=== PATIENT | female | born 1940 | race Caucasian/White ===

== ENCOUNTER 2016-12-23 15:31 | Emergency (ER) | payer BC, OTHER ==
[~2016-12-23] VITALS: Ht 160 cm; Wt 83.5 kg
[~2016-12-23 15:31] MED LIST: ACET-1256 PO; APR10 PO; ASCO500C3 PO; ASPI81TA28 PO; ATOR10TA88 PO; CALC600T PO; CHOL100027 PO; CTP1X PO; GLIM4TAB2 PO; LISI-787 PO; METF-384 PO; METO50TA17 PO; MULT-884 PO; POTA1CAP2 PO; VITACAP37 PO
[2016-12-23 15:44] VITALS: TEMP 36.8; Ht 160 cm; Wt 83.5 kg
[2016-12-23] MEDS ORDERED: HydrALAZINE HCL 20 MG/ML VIAL IV. STA (15:57)
--- NOTE | 2016-12-23 16:14 | EMERGENCY ROOM VISIT NOTE ---
History Report prepared by Enedina: Danelle Iverson Under the Supervision of: Dr. Erich Mercado M.D. First contact with patient: 15:51 Chief Complaint: HYPERTENSION Stated Complaint: BLOOD PRESSURE, DOCTOR REFERRED History of Present Illness The patient is a 76 year old female who presents to the Emergency Room with complaints of constant hypertension beginning today. The patient states that she went to see her PCP last week for a regular check up and he was concerned because her blood pressure was elevated. She reports that he referred her to a flask carrier that she saw today. She notes that her blood pressure was 240 today and her flask carrier wanted her to be seen in the ED. The patient states that she takes Lisinopril for her blood pressure and Clonidine. She reports that she does not miss any of her medications but she recently stopped taking her Clonidine in the morning as she was sleeping through it and her doctor told her that she could stop taking it. She notes that before she stopped taking the Clonidine in the morning it was usually in the 130s. The patient complains of intermittent leg swelling, lightheadedness as she has not eaten much today. She denies any headache, shortness of breath, abdominal pain, nausea, and chest pain. She reports that she recently had her cataracts done and has been doing well since her surgery. The patient notes that she eats hot dogs and olives and is trying to cut some of the salt out of her diet. She reports that she has not been exercising as much recently. Source of History: patient Onset: today Position: other (global) Symptom Intensity: 240 Quality: other (hypertension) Timing: constant Associated Symptoms: No headache, No chest pain, No SOB, No nausea, No abdominal pain Note: Pt complains of lightheadedness and slight leg swelling. Review of Systems See HPI for pertinent positives & negatives. A total of 10 systems reviewed and were otherwise negative. Past Medical & Surgical Medical Problems: (1) DM (diabetes mellitus) Family History No pertinent family history stated. Social History Smoking Status: Former Smoker Marital Status: Occupation Status: retired Current/Historical Medications Scheduled Ascorbic Acid (Vitamin C), 1 TAB PO DAILY Aspirin (Aspirin Ec), 81 MG PO HS Atorvastatin (Lipitor), 10 MG PO DAILY Calcium Carbonate (Calcium 600), 1 TAB PO DAILY Carvedilol (Coreg), 25 MG PO BID Cholecalciferol (Vitamin D 1000 Unit), 1,000 INTER.UNIT PO DAILY Clonidine (Catapres-Tts), 1 PATCH TD WK Clonidine HCl (Clonidine HCl), 0.1 MG PO BID Glimepiride (Glimepiride), 4 MG PO DAILY Hydralazine Hcl (Apresoline), 20 MG PO BID Lisinopril/Hctz (Zestoretic 20MG/25MG), 1 TAB PO DAILY Metformin Hcl (Glucophage), 1,000 MG PO BID Multiple Vitamin (Multi Vitamin Daily), 1 TAB PO DAILY Vitamin E (E-400), 1 CAP PO DAILY Scheduled PRN Potassium Chloride (Potassium Chloride Er), 10 MEQ PO DAILY PRN for LEG CRAMPS Allergies Coded Allergies: Metoprolol (Unverified Allergy, Severe, VOMIT,DIARRHEA, 12/23/16) Amlodipine (Verified Adverse Reaction, Intermediate, ELEVATED BP, 12/23/16) Fenofibrate (Verified Adverse Reaction, Intermediate, INCREASED URINATION , 12/23/16) Verapamil (Verified Adverse Reaction, Intermediate, INCREASED URINATION, ) Physical Exam Vital Signs Date Time Temp Pulse Resp B/P (MAP) Pulse Ox O2 Delivery O2 Flow Rate FiO2 12/23/16 19:53 77 22 189/79 94 12/23/16 19:12 67 19 174/76 94 Room Air 12/23/16 18:55 75 17 204/64 93 Room Air 12/23/16 17:37 67 16 137/54 94 Room Air 12/23/16 16:10 64 12/23/16 15:44 36.8 65 20 218/88 94 Room Air Physical Exam Vital signs reviewed. General: Well-appearing female, noted to be markedly hypertensive, in no significant distress. HEENT: No scleral icterus, PERRLA, neck supple. Atraumatic. Cardiovascular: Regular rate and rhythm, no extra sounds. Pulmonary: Clear to auscultation bilaterally, normal work of breathing. Abdomen: Soft, nontender, nondistended, positive bowel sounds. Musculoskeletal: Atraumatic, minimal peripheral edema. Neurologic: Patient awake alert and oriented x 3, full strength in all 4 extremities. Cranial nerves 2 through 12 grossly intact. Skin: Warm, dry, no rash Medical Decision & Procedures ER Provider Diagnostic Interpretation: X-ray results as stated below per interpretation by me and the radiologist: CHEST ONE VIEW PORTABLE FINDINGS: Cardiomediastinal and hilar silhouettes are unchanged with mild prominence of the cardiac silhouette. There is no pneumothorax, pleural effusion, focal airspace consolidation or overt pulmonary edema. There is minimal left basilar atelectasis. The bones appear grossly intact. IMPRESSION: Minimal left basilar atelectasis without acute cardiopulmonary process. The above report was generated using voice recognition software. It may contain grammatical, syntax or spelling errors. Electronically signed by: Kali Solis M.D. 12/23/2016 4:20 PM Dictated Date/Time: 12/23/2016 4:19 PM Laboratory Results 12/23/16 16:40 Red Blood Count 4.61, Mean Corpuscular Volume 84.2, Mean Corpuscular Hemoglobin 28.0, Mean Corpuscular Hemoglobin Concent 33.2, Mean Platelet Volume 11.5, Neutrophils (%) (Auto) 70.9, Lymphocytes (%) (Auto) 20.6, Monocytes (%) (Auto) 5.6, Eosinophils (%) (Auto) 2.5, Basophils (%) (Auto) 0.3, Neutrophils # (Auto) 5.10, Lymphocytes # (Auto) 1.48, Monocytes # (Auto) 0.40, Eosinophils # (Auto) 0.18, Basophils # (Auto) 0.02 12/23/16 16:40 Test 12/23/16 16:40 12/23/16 16:44 White Blood Count 7.19 K/uL (4.8-10.8) Red Blood Count 4.61 M/uL (4.2-5.4) Hemoglobin 12.9 g/dL (12.0-16.0) Hematocrit 38.8 % (37-47) Mean Corpuscular Volume 84.2 fL (80-100) Mean Corpuscular Hemoglobin 28.0 pg (25-34) Mean Corpuscular Hemoglobin Concent 33.2 g/dl (32-36) Platelet Count 238 K/uL (130-400) Mean Platelet Volume 11.5 fL (7.4-10.4) Neutrophils (%) (Auto) 70.9 % Lymphocytes (%) (Auto) 20.6 % Monocytes (%) (Auto) 5.6 % Eosinophils (%) (Auto) 2.5 % Basophils (%) (Auto) 0.3 % Neutrophils # (Auto) 5.10 K/uL (1.4-6.5) Lymphocytes # (Auto) 1.48 K/uL (1.2-3.4) Monocytes # (Auto) 0.40 K/uL (0.11-0.59) Eosinophils # (Auto) 0.18 K/uL (0-0.5) Basophils # (Auto) 0.02 K/uL (0-0.2) RDW Standard Deviation 42.5 fL (36.4-46.3) RDW Coefficient of Variation 13.9 % (11.5-14.5) Immature Granulocyte % (Auto) 0.1 % Immature Granulocyte # (Auto) 0.01 K/uL (0.00-0.02) Anion Gap 7.0 mmol/L (3-11) Est Creatinine Clear Calc Drug Dose 62.4 ml/min Estimated GFR () 82.9 Estimated GFR (Non- 71.5 BUN/Creatinine Ratio 16.8 (10-20) Calcium Level 9.1 mg/dl (8.5-10.1) Magnesium Level 1.9 mg/dl (1.8-2.4) Total Bilirubin 0.5 mg/dl (0.2-1) Direct Bilirubin < 0.1 mg/dl (0-0.2) Aspartate Amino Transf (AST/SGOT) 14 U/L (15-37) Alanine Aminotransferase (ALT/SGPT) 29 U/L (12-78) Alkaline Phosphatase 88 U/L (45-117) Total Creatine Kinase 97 U/L (26-192) Creatine Kinase MB 3.9 ng/ml (0.5-3.6) Creatine Kinase MB Ratio 4.0 (0-3.0) Total Protein 7.0 gm/dl (6.4-8.2) Albumin 3.7 gm/dl (3.4-5.0) Bedside Troponin I < 0.030 ng/ml (0-0.045) Laboratory results per my review. Medications Administered Medications (Trade) Dose Ordered Sig/Radha Route Start Time Stop Time Status Last Admin Dose Admin Hydralazine HCl (HydrALAZINE INJ) 10 mg NOW STAT IV. 12/23/16 15:57 12/23/16 16:04 DC 12/23/16 17:16 10 MG Clonidine HCl (Mkruturv-Dxg-2 0.1mg/24hr Patch) 1 patch CQWK STAT TD 12/23/16 18:57 12/23/16 18:58 DC 12/23/16 19:13 1 PATCH Metformin HCl (Glucophage Tab) 1,000 mg NOW STAT PO 12/23/16 18:59 12/23/16 19:03 DC 12/23/16 19:12 1,000 MG Carvedilol (Coreg Tab) 25 mg NOW ONCE PO 12/23/16 19:00 12/23/16 19:03 DC 12/23/16 19:12 25 MG Hydralazine HCl (Apresoline Tab) 25 mg NOW STAT PO 12/23/16 18:59 12/23/16 19:03 DC 12/23/16 19:13 25 MG ECG Indication: other (hypertension) Rate (beats per minute): 60 Rhythm: normal sinus Findings: nonspecific-ST abn (Anterior), other (nonspecific T wave abnormality in anterior leads ) ED Course 1551: Past medical records reviewed. The patient was evaluated in room B7. A complete history and physical examination was performed. 1557: Hydralazine HCl 10mg IV. 1833: I reevaluated and updated the patient. 1846: Upon reevaluation, the patient appeared to have improvement of her symptoms. I discussed findings with the patient. She verbalized agreement of the treatment plan. The patient was discharged home. Medical Decision Differential diagnosis includes medication noncompliance, essential hypertension , renal artery stenosis, renal failure, dietary noncompliance, and fluid overload. This patient was evaluated and appeared to be in no significant distress. IV access was obtained and laboratory work was drawn. Patient was given IV hydralazine for systolic blood pressure well over 200. She had significant improvement in her blood pressure however when she was ambulatory she had fluctuating blood pressures once again. Laboratory work is fairly unrevealing. Chest x-ray reveals some basilar atelectasis without clear infiltrate or CHF. The patient is largely asymptomatic. She was given her evening medications. She was given a clonidine patch to wear as this may give her a more even release of the clonidine helping to stabilize her blood pressure. She states she has been missing the morning dose. Patient will follow-up this week with her primary care physician for blood pressure recheck and medication review. She will return to the ER for worsening of symptoms or any medical concerns. Medication Reconcilliation Current Medication List: was personally reviewed by me Blood Pressure Screening Patient's blood pressure: Elevated blood pressure Blood pressure disposition: Referred to PCP Impression Primary Impression: Hypertension Scribe Attestation The scribe's documentation has been prepared under my direction and personally reviewed by me in its entirety. I confirm that the note above accurately reflects all work, treatment, procedures, and medical decision making performed by me. Departure Information Dispostion Home / Self-Care Prescriptions Clonidine (Catapres-Tts) 0.1 Mg/24 Hr Dis 1 PATCH TD WK, #3 PATCH Prov: Malinda Tripathi M.D. 12/23/16 Referrals No Doctor, Assigned (PCP) Forms HOME CARE DOCUMENTATION FORM, IMPORTANT VISIT INFORMATION, WORK / SCHOOL INSTRUCTIONS Patient Instructions My [facility] Additional Instructions Diagnosis: Hypertension Clonidine patch 0.1 mg/24 hours, change your patch once a week. Remove this if your blood pressure is low. Use the clonidine pill only if your blood pressure is greater than 180 systolic. Continue your other blood pressure medications as prescribed. Follow-up with your physician this week for reevaluation. Return to the emergency department for worsening of symptoms or any medical concerns.
--- NOTE | 2016-12-23 16:21 | DIAGNOSTIC IMAGING REPORT ---
CHEST ONE VIEW PORTABLE HISTORY: 76 years-old Female acute hypertension COMPARISON: 06/05/2014 chest radiograph TECHNIQUE: Portable upright AP view of the chest FINDINGS: Cardiomediastinal and hilar silhouettes are unchanged with mild prominence of the cardiac silhouette. There is no pneumothorax, pleural effusion, focal airspace consolidation or overt pulmonary edema. There is minimal left basilar atelectasis. The bones appear grossly intact. IMPRESSION: Minimal left basilar atelectasis without acute cardiopulmonary process. The above report was generated using voice recognition software. It may contain grammatical, syntax or spelling errors. Electronically signed by: Kali Solis M.D. 12/23/2016 4:20 PM Dictated Date/Time: 12/23/2016 4:19 PM
[2016-12-23] MEDS ORDERED: LISI-788 PO (16:37)
[2016-12-23] MEDS ORDERED: HYDR-4715 PO (16:37)
[2016-12-23] MEDS ORDERED: CARV25TA2 PO (16:37)
[2016-12-23 17:01] LABS: BASO % 0.3 %; BASO ABS # 0.02 K/uL (0-0.2); COMPLETE YES; EOS % 2.5 %; HEMATOCRIT 38.8 % (37-47); IG% 0.1 %; LYMPH % 20.6 %; LYMPH ABS # 1.48 K/uL (1.2-3.4); MEAN CELL VOLUME 84.2 fL (80-100); MEAN CORPUSCULAR HGB CONC 33.2 g/dl (32-36); MEAN PLATELET VOLUME 11.5 fL (7.4-10.4); MONO % 5.6 %; NEUT % 70.9 %; PLATELET COUNT 238 K/uL (130-400); RED BLOOD COUNT 4.61 M/uL (4.2-5.4); WHITE BLOOD COUNT 7.19 K/uL (4.8-10.8)
[2016-12-23 17:17] LABS: ALT/SGPT 29 U/L (12-78); AST/SGOT 14 U/L (15-37); BLOOD UREA NITROGEN 14 mg/dl (7-18); BUN/CREATININE RATIO 16.8 (10-20); CALCIUM 9.1 mg/dl (8.5-10.1); CARBON DIOXIDE 27 mmol/L (21-32); CHLORIDE 102 mmol/L (98-107); CREATININE 0.81 mg/dl (0.60-1.20); GLUCOSE 159 mg/dl (70-99); MAGNESIUM 1.9 mg/dl (1.8-2.4); POTASSIUM 3.8 mmol/L (3.5-5.1); SODIUM 136 mmol/L (136-145)
[2016-12-23 17:22] LABS: ALKALINE PHOSPHATASE 88 U/L (45-117)
[2016-12-23] MEDS ORDERED: CLON0.1D7 TD (18:37)
[2016-12-23] MEDS ORDERED: CLONIDINE HCL 0.1 MG/24 HR TRANSDERM SYS TD STA (18:57)
[2016-12-23] MEDS ORDERED: METFORMIN HCL 500 MG TAB PO STA (18:59)
[2016-12-23] MEDS ORDERED: CARVEDILOL 12.5 MG TAB PO ONE (19:00)
[2016-12-23 19:53] VITALS: BP 189/79; PULSE 77; O2SAT 94
== END 2016-12-23 19:56 | disposition home or self-care (01) ==
LOC: C.EDB 15:33
DX: I10 Essential (primary) hypertension (principal); M79.89 Other specified soft tissue disorders; R42 Dizziness and giddiness; E11.9 Type 2 diabetes mellitus without complications; Z79.82 Long term (current) use of aspirin; Z79.84 Long term (current) use of oral hypoglycemic drugs; Z79.899 Other long term (current) drug therapy

== ENCOUNTER 2020-12-26 17:47 | Inpatient (IN) ==
--- NOTE | 2020-12-26 19:34 | Emergency Department Note ---
Impression & Plan Cellulitis of foot associated with diabetes mellitus, PAD (peripheral artery disease), Hyponatremia, Hypertension ED Provider Note Provider: Vinod Valles MD DATE OF SERVICE: 12/26/2020 CHIEF COMPLAINT: Leg infection HISTORY OF PRESENT ILLNESS: Patient is a 80-year-old female history of type 2 diabetes, hypertension, prior right ankle surgery presenting today referred from the outpatient setting due to concerns for right lower extremity cellulitis around her right ankle. Patient states about 3 days ago or so noted some redness at the ankle that is worsened. 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 Patient was given a prescription for Keflex which he only took a dose of this afternoon. Patient denies any significant fever or chills. Patient states her ankle surgery was about a decade ago. Patient has not yet taken her evening blood pressure medicine and her blood pressure has been elevated family reports. X-ray of the right ankle was obtained earlier. REVIEW OF SYSTEMS: A total of 10 review of systems was obtained and negative except as stated above in the HPI. PAST MEDICAL HISTORY: As noted above MEDICATIONS: Reviewed home medications SOCIAL HISTORY: Former smoker, PHYSICAL EXAM: GENERAL: alert and oriented in no acute distress on stretcher Head: normocephalic and atraumatic EYES: No injection, discharge or icterus. NECK: Trachea midline. ENT: Mucous membranes pink and moist. LUNGS: Airway patent. No retractions. Breath sounds clear HEART: Regular rate and rhythm. No chest wall tenderness SKIN: Acyanotic, warm, dry, without rashes EXTREMITIES: Patient with some swelling erythema surrounding the right ankle and then a separate area around the right great toe. The pad of the right great toe appears to been shaved down with podiatry without active bleeding or significant purulence on exam here. NEUROLOGICAL: No aphasia. No facial droop or slurred speech. Normal strength and tone in the extremities. Some mild neuropathy in the bilateral feet appreciated. Patient's laboratory studies and imaging reviewed. Differential includes Foreign body, fracture, dislocation, joint compromise, infection, soft tissue injury, tendon injury, vascular compromise, compartment syndrome, as well as other pathologies. IMPRESSION/MEDICAL DECISION MAKING: Patient not significantly septic but evidence of some erythema surrounding her ankle history of hardware in place here distantly. Doubt this is a surgical hardware infection given time but question infection in the right lower extremity that may worsen to affect this underlay hardware. She is a type II diabetic and vascular ultrasound today shows PAD significant in the right lower extremity both risks for worsening infection here. No evidence of vascular ischemia in the leg at this point. Doubt necrotizing fasciitis or sepsis. Basic labs completed here. Covered broadly with vancomycin and Zosyn. Blood pressure has been elevated here and appears to have had recent changes from cardiology to her blood pressure regimen. Will need optimization of blood pressure regimen. Evidence also some worsened hyponatremia today although she is not significantly symptomatic. Question is is related to her blood pressure medicine as well. Given the need for IV antibiotics and hyponatremia the hospitalist was consulted for admission. DIAGNOSIS: Right foot cellulitis associated with diabetes, hyponatremia, hypertension, PAD DISPOSITION: Hospitalist will evaluate Patient was agreeable with this plan. Past Med/Surg History Medical History (Updated 12/27/20 @ 02:12 by Vinod Valles M.D.) Corns and callosities CVA (cerebral vascular accident) Hallux valgus of left foot Hallux valgus of right foot Hyperlipemia Hypertension Myocardial infarct, old 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 Type 2 diabetes mellitus with diabetic neuropathy, unspecified Type 2 diabetes mellitus with diabetic polyneuropathy Surgical History History of bunionectomy of right great toe History of cardiac cath Status post ORIF of fracture of ankle Social History Smoking Status: Former smoker Tobacco Type: Cigarettes Number of Years Since Quit: 40; Second Hand Exposure: No; Do You Dip or Chew Tobacco: No; Hx Alcohol Use: Yes Alcohol type: wine Hx Substance Use: No Preferred Language: Upper Sorbian Communication Ability: Effective 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 Beliefs That Will Affect Care: None marital status: / Current Living Situation: Alone Current Living Situation Comment: ranch style home current occupational status: retired Feels Safe at Home: Yes Safety Concerns: Feels Safe At This Time Assistive Devices: Denture - Upper and Denture - Lower Allergies Allergies Allergy/AdvReac Type Severity Reaction Status Date / Time metoprolol Allergy Severe VOMIT,DIARR Unverified 12/26/20 20:43 HEA amlodipine AdvReac Intermediate ELEVATED BP Verified 12/26/20 20:43 fenofibrate AdvReac Intermediate INCREASED Verified 12/26/20 20:43 URINATION verapamil AdvReac Intermediate INCREASED Verified 12/26/20 20:43 URINATION Home Meds Home Medications Medication Instructions Recorded Confirmed aspirin 81 mg tablet,delayed 81 mg PO HS 03/04/20 12/26/20 release atorvastatin 10 mg tablet 10 mg PO QAM 03/04/20 12/26/20 carvedilol 25 mg tablet 25 mg PO BID 03/04/20 12/26/20 cholecalciferol (vitamin D3) 25 0 mcg PO QAM 03/04/20 12/26/20 mcg (1,000 unit) capsule (Vitamin D3) clonidine HCl 0.1 mg tablet 0.1 mg PO BID 03/04/20 12/26/20 glimepiride 4 mg tablet 4 mg PO BID 03/04/20 12/26/20 hydralazine 10 mg tablet 20 mg PO BID 03/04/20 12/26/20 metformin 500 mg tablet,extended 1,000 mg PO BIDM 03/04/20 12/26/20 release 24 hr amlodipine 5 mg tablet (Norvasc) 5 mg PO QAM 12/01/20 12/26/20 coenzyme Q10 100 mg capsule 100 mg PO QAM 12/01/20 12/26/20 (CoQ-10) fish, borage, flaxseed oils-omega 1 cap PO QDD 12/01/20 12/26/20 3,6,9 comb no.1 1,200 mg capsule ([place] 3-6-9) hydrochlorothiazide 25 mg tablet 25 - 50 mg PO QAM 12/01/20 12/26/20 lisinopril 40 mg tablet (Zestril) 40 mg PO QAM 12/01/20 12/26/20 potassium chloride 10 mEq 10 meq PO DAILY PRN 12/01/20 12/26/20 tablet,extended release Results & Data (ED) Vital Signs Vital Signs - 24 hr 12/26/20 17:47 12/26/20 18:03 12/26/20 19:54 Temperature 36.4 C L Temperature Source Temporal Artery Scan Pulse Rate 59 L Pulse Rate [Apical] 62 58 L Respiratory Rate 20 20 20 Respiratory Effort / Characteristics Non-Labored Spontaneous Respiratory Depth Normal Blood Pressure 140/65 Blood Pressure [Left Arm] 219/79 H 185/82 H Blood Pressure Mean 90 Blood Pressure Mean [Left Arm] 125 116 Pulse Oximetry 98 93 96 Oxygen Delivery Method Room Air Room Air Room Air Sepsis Recent Fever Within 48 Hours No Sepsis New/Unexplained Change in Mental Status N/A Sepsis Action Taken by Nursing No Action Required 12/26/20 21:28 Temperature Temperature Source Pulse Rate Pulse Rate [Apical] Respiratory Rate Respiratory Effort / Characteristics Respiratory Depth Blood Pressure Blood Pressure [Left Arm] 180/82 H Blood Pressure Mean Blood Pressure Mean [Left Arm] 114 Pulse Oximetry Oxygen Delivery Method Sepsis Recent Fever Within 48 Hours Sepsis New/Unexplained Change in Mental Status Sepsis Action Taken by Nursing Laboratory Data Result diagrams: 12/26/20 19:31 12/26/20 19:42 Lab Results 12/26/20 12/26/20 12/26/20 Range/Units 19:31 19:42 19:42 WBC 8.61 (4.8-10.8) K/uL RBC 4.27 (4.2-5.4) M/uL Hgb 12.2 (12.0-16.0) g/dL Hct 34.4 L (37-47) % MCV 80.6 (80-100) fL MCH 28.6 (25-34) pg MCHC 35.5 (32-36) g/dL RDW Std Deviation 39.4 (36.4-46.3) fL RDW Coeff of Alysa 13.5 (11.5-14.5) % Plt Count 294 (130-400) K/uL MPV 11.3 H (7.4-10.4) fL Immature Gran % (Auto) 0.2 % Neut % (Auto) 72.5 % Lymph % (Auto) 16.4 % [place] % (Auto) 9.5 % Eos % (Auto) 1.3 % Baso % (Auto) 0.1 % Neut # (Auto) 6.24 (1.4-6.5) K/uL Lymph # (Auto) 1.41 (1.2-3.4) K/uL [place] # (Auto) 0.82 H (0.11-0.59) K/uL Eos # (Auto) 0.11 (0-0.5) K/uL Baso # (Auto) 0.01 (0-0.2) K/uL Immature Gran # (Auto) 0.02 (0.00-0.02) K/uL ESR 51 H (0-30) mm/hr PT 10.5 (9.0-12.0) Seconds INR 1.0 (0.9-1.1) Sodium (136-145) mmol/L Potassium (3.5-5.1) mmol/L Chloride (98-107) mmol/L Carbon Dioxide (21-32) mmol/L Anion Gap (3-11) BUN (7-18) mg/dl Creatinine (0.6-1.2) mg/dl Est Cr Clr Drug Dosing ml/min Est GFR ( Amer) ml/min Est GFR (Non-Af Amer) ml/min BUN/Creatinine Ratio (10-20) Glucose (70-99) mg/dl Osmolality (280-300) mOsm/kg Calcium (8.5-10.1) mg/dl Total Bilirubin (0.2-1) mg/dl AST (15-37) U/L ALT (12-78) U/L Alkaline Phosphatase (45-117) U/L C-Reactive Protein (0-0.29) mg/dl Total Protein (6.4-8.2) gm/dl Albumin (3.4-5.0) gm/dl Globulin (2.5-4.0) gm/dl Albumin/Globulin Ratio (0.9-2) TSH (0.300-4.500) uIu/ml Ur Specific [place] (1.000-1.030) Urine Osmolality (500-800) mOsm/kg Ur Random Creatinine mg/dl Ur Random Urea Nitrogn mg/dl COVID-19 Eval Order SARS-CoV-2 (PCR) (Negative) 12/26/20 12/26/20 12/26/20 Range/Units 19:42 20:00 20:00 WBC (4.8-10.8) K/uL RBC (4.2-5.4) M/uL Hgb (12.0-16.0) g/dL Hct (37-47) % MCV (80-100) fL MCH (25-34) pg MCHC (32-36) g/dL RDW Std Deviation (36.4-46.3) fL RDW Coeff of Alysa (11.5-14.5) % Plt Count (130-400) K/uL MPV (7.4-10.4) fL Immature Gran % (Auto) % Neut % (Auto) % Lymph % (Auto) % [place] % (Auto) % Eos % (Auto) % Baso % (Auto) % Neut # (Auto) (1.4-6.5) K/uL Lymph # (Auto) (1.2-3.4) K/uL [place] # (Auto) (0.11-0.59) K/uL Eos # (Auto) (0-0.5) K/uL Baso # (Auto) (0-0.2) K/uL Immature Gran # (Auto) (0.00-0.02) K/uL ESR (0-30) mm/hr PT (9.0-12.0) Seconds INR (0.9-1.1) Sodium 125 L (136-145) mmol/L Potassium 4.8 (3.5-5.1) mmol/L Chloride 94 L (98-107) mmol/L Carbon Dioxide 25 (21-32) mmol/L Anion Gap 6.0 (3-11) BUN 30 H (7-18) mg/dl Creatinine 0.98 (0.6-1.2) mg/dl Est Cr Clr Drug Dosing 46.0 ml/min Est GFR ( Amer) 64.0 ml/min Est GFR (Non-Af Amer) 55.3 ml/min BUN/Creatinine Ratio 30.5 H (10-20) Glucose 177 H (70-99) mg/dl Osmolality (280-300) mOsm/kg Calcium 9.3 (8.5-10.1) mg/dl Total Bilirubin 0.5 (0.2-1) mg/dl AST 13 L (15-37) U/L ALT 25 (12-78) U/L Alkaline Phosphatase 89 (45-117) U/L C-Reactive Protein 7.49 H (0-0.29) mg/dl Total Protein 7.5 (6.4-8.2) gm/dl Albumin 3.6 (3.4-5.0) gm/dl Globulin 3.9 (2.5-4.0) gm/dl Albumin/Globulin Ratio 0.9 (0.9-2) TSH 1.900 (0.300-4.500) uIu/ml Ur Specific [place] (1.000-1.030) Urine Osmolality (500-800) mOsm/kg Ur Random Creatinine mg/dl Ur Random Urea Nitrogn mg/dl COVID-19 Eval Order Covid19 at [facility] SARS-CoV-2 (PCR) NEGATIVE (Negative) 12/26/20 12/26/20 12/26/20 Range/Units 21:26 21:30 21:30 WBC (4.8-10.8) K/uL RBC (4.2-5.4) M/uL Hgb (12.0-16.0) g/dL Hct (37-47) % MCV (80-100) fL MCH (25-34) pg MCHC (32-36) g/dL RDW Std Deviation (36.4-46.3) fL RDW Coeff of Alysa (11.5-14.5) % Plt Count (130-400) K/uL MPV (7.4-10.4) fL Immature Gran % (Auto) % Neut % (Auto) % Lymph % (Auto) % [place] % (Auto) % Eos % (Auto) % Baso % (Auto) % Neut # (Auto) (1.4-6.5) K/uL Lymph # (Auto) (1.2-3.4) K/uL [place] # (Auto) (0.11-0.59) K/uL Eos # (Auto) (0-0.5) K/uL Baso # (Auto) (0-0.2) K/uL Immature Gran # (Auto) (0.00-0.02) K/uL ESR (0-30) mm/hr PT (9.0-12.0) Seconds INR (0.9-1.1) Sodium (136-145) mmol/L Potassium (3.5-5.1) mmol/L Chloride (98-107) mmol/L Carbon Dioxide (21-32) mmol/L Anion Gap (3-11) BUN (7-18) mg/dl Creatinine (0.6-1.2) mg/dl Est Cr Clr Drug Dosing ml/min Est GFR ( Amer) ml/min Est GFR (Non-Af Amer) ml/min BUN/Creatinine Ratio (10-20) Glucose (70-99) mg/dl Osmolality 269 L (280-300) mOsm/kg Calcium (8.5-10.1) mg/dl Total Bilirubin (0.2-1) mg/dl AST (15-37) U/L ALT (12-78) U/L Alkaline Phosphatase (45-117) U/L C-Reactive Protein (0-0.29) mg/dl Total Protein (6.4-8.2) gm/dl Albumin (3.4-5.0) gm/dl Globulin (2.5-4.0) gm/dl Albumin/Globulin Ratio (0.9-2) TSH (0.300-4.500) uIu/ml Ur Specific [place] (1.000-1.030) Urine Osmolality 290 L (500-800) mOsm/kg Ur Random Creatinine 35.4 mg/dl Ur Random Urea Nitrogn 386 mg/dl COVID-19 Eval Order SARS-CoV-2 (PCR) (Negative) 12/26/20 Range/Units 21:30 WBC (4.8-10.8) K/uL RBC (4.2-5.4) M/uL Hgb (12.0-16.0) g/dL Hct (37-47) % MCV (80-100) fL MCH (25-34) pg MCHC (32-36) g/dL RDW Std Deviation (36.4-46.3) fL RDW Coeff of Alysa (11.5-14.5) % Plt Count (130-400) K/uL MPV (7.4-10.4) fL Immature Gran % (Auto) % Neut % (Auto) % Lymph % (Auto) % [place] % (Auto) % Eos % (Auto) % Baso % (Auto) % Neut # (Auto) (1.4-6.5) K/uL Lymph # (Auto) (1.2-3.4) K/uL [place] # (Auto) (0.11-0.59) K/uL Eos # (Auto) (0-0.5) K/uL Baso # (Auto) (0-0.2) K/uL Immature Gran # (Auto) (0.00-0.02) K/uL ESR (0-30) mm/hr PT (9.0-12.0) Seconds INR (0.9-1.1) Sodium (136-145) mmol/L Potassium (3.5-5.1) mmol/L Chloride (98-107) mmol/L Carbon Dioxide (21-32) mmol/L Anion Gap (3-11) BUN (7-18) mg/dl Creatinine (0.6-1.2) mg/dl Est Cr Clr Drug Dosing ml/min Est GFR ( Amer) ml/min Est GFR (Non-Af Amer) ml/min BUN/Creatinine Ratio (10-20) Glucose (70-99) mg/dl Osmolality (280-300) mOsm/kg Calcium (8.5-10.1) mg/dl Total Bilirubin (0.2-1) mg/dl AST (15-37) U/L ALT (12-78) U/L Alkaline Phosphatase (45-117) U/L C-Reactive Protein (0-0.29) mg/dl Total Protein (6.4-8.2) gm/dl Albumin (3.4-5.0) gm/dl Globulin (2.5-4.0) gm/dl Albumin/Globulin Ratio (0.9-2) TSH (0.300-4.500) uIu/ml Ur Specific [place] 1.010 (1.000-1.030) Urine Osmolality (500-800) mOsm/kg Ur Random Creatinine mg/dl Ur Random Urea Nitrogn mg/dl COVID-19 Eval Order SARS-CoV-2 (PCR) (Negative) Administered Medications Enoxaparin Sodium (Enoxaparin Inj 40 Mg/0.4 Ml Syr) 40 mg SQ HS AUNDREA Stop: 01/25/21 23:44 Last Admin: 12/27/20 00:47 Dose: 40 mg Documented by: [id number] Discontinued Medications Vancomycin HCl 1,500 mg/ (Sodium Chloride) 530 mls @ 200 mls/hr IV NOW ONE Stop: 12/26/20 23:06 Last Infusion: 12/27/20 00:50 Dose: 0 mls/hr Documented by: [id number] Admin: 12/26/20 20:56 Dose: 200 mls/hr Documented by: [id number] Piperacillin Sod/Tazobactam Sod (Zosyn) 4.5 gm in 120 mls @ 240 mls/hr IV ONE STA Stop: 12/26/20 22:12 Last Infusion: 12/27/20 01:26 Dose: 0 mls/hr Documented by: [id number] Admin: 12/27/20 00:47 Dose: 240 mls/hr Documented by: [id number] Discharge Plan Visit Data Chief Complaint: Infection Stated Complaint: INFECTION IN R FOOT/ANKLE ED Provider: Vinod Valles Discharge Problem: Cellulitis of foot associated with diabetes mellitus, PAD (peripheral artery disease), Hyponatremia, Hypertension Patient Disposition: Admitted As Inpatient Discharge Instructions Interventions: ED Discharge Assessment Last Done: 12/26/20 23:14
[2020-12-26 20:11] LABS: Prothrombin Time 10.5 Seconds (9.0-12.0)
[2020-12-26 20:19] LABS: Albumin Level 3.6 gm/dl (3.4-5.0); BUN Creatinine Ratio 30.5 (10-20); Calcium 9.3 mg/dl (8.5-10.1); Est GFR (Non-African American) 55.3 ml/min; Potassium 4.8 mmol/L (3.5-5.1)
[2020-12-26 20:22] LABS: Albumin Globulin Ratio 0.9 (0.9-2); Bilirubin,Total 0.5 mg/dl (0.2-1); C Reactive Protein 7.49 mg/dl (0-0.29); Globulin 3.9 gm/dl (2.5-4.0); Total Protein 7.5 gm/dl (6.4-8.2)
[2020-12-26] MEDS ORDERED: VANCOMYCIN CONSULT ACTIVE PRN ×2 (20:28→23:31)
[2020-12-26] MEDS ORDERED: VANCOMYCIN HCL 1,500 MG in SODIUM CHLORIDE 0.9% 500 ML IV ONE (20:28)
[2020-12-26 20:50] LABS: Basophils # (auto) 0.01 K/uL (0-0.2); Basophils % (auto) 0.1 %; Eosinophils # (auto) 0.11 K/uL (0-0.5); Eosinophils % (auto) 1.3 %; Hematocrit (blood only) 34.4 % (37-47); Hemoglobin 12.2 g/dL (12.0-16.0); Immature Granulocytes # (auto) 0.02 K/uL (0.00-0.02); Immature Granulocytes % (auto) 0.2 %; Lymphocytes # (auto) 1.41 K/uL (1.2-3.4); Lymphocytes % (auto) 16.4 %; Mean Corpuscular Hemoglobin 28.6 pg (25-34); Mean Corpuscular Hgb Conc 35.5 g/dL (32-36); Mean Corpuscular Volume 80.6 fL (80-100); Mean Platelet Volume 11.3 fL (7.4-10.4); Monocytes # (auto) 0.82 K/uL (0.11-0.59); Monocytes % (auto) 9.5 %; Neutrophils # (auto) 6.24 K/uL (1.4-6.5); Neutrophils % (auto) 72.5 %; Platelet Count 294 K/uL (130-400); RDW Coefficient of Variation 13.5 % (11.5-14.5); RDW Standard Deviation 39.4 fL (36.4-46.3); Red Blood Count 4.27 M/uL (4.2-5.4); White Blood Count 8.61 K/uL (4.8-10.8)
[2020-12-26] MEDS ORDERED: PIPERACILLIN/TAZOBACTAM 4.5 GM/120 ML BAG IV STA (21:43)
--- NOTE | 2020-12-26 22:11 | History & Physical Report ---
Date of Service December 26, 2020 Assessment & Plan (1) Cellulitis: Plan: Involving the right ankle and possible of right toe - Will treat as diabetic ulcer- Zosyn and Vancomycin - Follow CRP and ESR - Not systemically sepsis - Xray of right ankle pending - clinically worsens consider MRI to better evaluate bone and hardware (2) Hypertension: Plan: Very poorly controlled as outpatient - Consider increasing her amlodipine and or Clonidine - No acute need to lower - ECHO EF 70% with normal LV size with type II diastolic dysfunction (11/28) - Reveiw that HCTZ was discontinued in November by Dr. 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: Plan: No acute drainage, cover daily already shaved down- not infected looking (6) PAD (peripheral artery disease): Plan: See report as per HPI - Follows at [facility] - evaluation when cellulitis is cleared (7) Hyponatremia: Plan: Chronic patient recently had HCTZ stopped- likely related to water > solute intake and diuretic use - Serum osmo 269, urine osmo 290, urine spec grav pending Patient on diuretic urine sodium not sent - free water restrict - Follow in morning- HCTZ held, will be getting Zosyn q8 - TSH pending - Patient does also endorse no salt in diet - Normal renal function - K normal - asymptomatic no acute interventions needed at this time History of Present Illness Primary Care Provider: Mal Torres MD 80 YOF with past medical history of : DMII, HTN, HLD, PAD, Broken right ankle with hardware. Patient came to the EMD today for evaluation of right lower extremity cellulitis. Patient states that she has noticed redness about 2-3 days ago that has gotten progressively more red at her ankle. She waited to come to the EMD because she had appointment with her filter filler as well as vascular duplex studies done today at [facility] [place]. She was prescribed Keflex as outpatient and took one dose of this today. She has a right toe callous that was shaved down and is covered with gauze and coban with some redness noted at the metatarsal of the great toe. She denies any pain or drainage, there is no other open area noted. She denies fevers or chills. Patient will be admitted for IV antibiotics with Zosyn and Vancomycin, follow biomarkers and Xray of the ankle is pending. Of note her arterial study today should be on her hard chart, but reveled a RT ELIO of 0.5, Lt ELIO 0.98, no digital pressure of the right toe recorded secondary to toe dressing. 50-74% stenosis of the popliteal. Routine labs also reveal hyponatremia, patient on HCTZ as outpatient. Patient has gotten her COVID vaccine and is COVID negative on admission. Allergies Allergy/AdvReac Type Severity Reaction Status Date / Time metoprolol Allergy Severe VOMIT,DIARR Unverified 12/26/20 20:43 HEA amlodipine AdvReac Intermediate ELEVATED BP Verified 12/26/20 20:43 fenofibrate AdvReac Intermediate INCREASED Verified 12/26/20 20:43 URINATION verapamil AdvReac Intermediate INCREASED Verified 12/26/20 20:43 URINATION Home Medications Medication Instructions Recorded Confirmed Type aspirin 81 mg tablet,delayed 81 mg PO HS 03/04/20 12/26/20 History release atorvastatin 10 mg tablet 10 mg PO QAM 03/04/20 12/26/20 History carvedilol 25 mg tablet 25 mg PO BID 03/04/20 12/26/20 History cholecalciferol (vitamin D3) 25 0 mcg PO QAM 03/04/20 12/26/20 History mcg (1,000 unit) capsule (Vitamin D3) clonidine HCl 0.1 mg tablet 0.1 mg PO BID 03/04/20 12/26/20 History glimepiride 4 mg tablet 4 mg PO BID 03/04/20 12/26/20 History hydralazine 10 mg tablet 20 mg PO BID 03/04/20 12/26/20 History metformin 500 mg tablet,extended 1,000 mg PO BIDM 03/04/20 12/26/20 History release 24 hr amlodipine 5 mg tablet (Norvasc) 5 mg PO QAM 12/01/20 12/26/20 History coenzyme Q10 100 mg capsule 100 mg PO QAM 12/01/20 12/26/20 History (CoQ-10) fish, borage, flaxseed oils-omega 1 cap PO QDD 12/01/20 12/26/20 History 3,6,9 comb no.1 1,200 mg capsule (Morris 3-6-9) hydrochlorothiazide 25 mg tablet 25 - 50 mg PO QAM 12/01/20 12/26/20 History lisinopril 40 mg tablet (Zestril) 40 mg PO QAM 12/01/20 12/26/20 History potassium chloride 10 mEq 10 meq PO DAILY PRN 12/01/20 12/26/20 History tablet,extended release Past Med/Surg History Medical History Corns and callosities CVA (cerebral vascular accident) Hallux valgus of left foot Hallux valgus of right foot Hyperlipemia Hypertension Myocardial infarct, old 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 Type 2 diabetes mellitus with diabetic neuropathy, unspecified Type 2 diabetes mellitus with diabetic polyneuropathy Surgical History History of bunionectomy of right great toe History of cardiac cath Status post ORIF of fracture of ankle Social History Smoking Status: Former smoker Tobacco Type: Cigarettes Number of Years Since Quit: 40; Second Hand Exposure: No; Do You Dip or Chew Tobacco: No; Hx Alcohol Use: Yes Alcohol type: wine Hx Substance Use: No Preferred Language: Mongolian Communication Ability: Effective 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 Beliefs That Will Affect Care: None marital status: / Current Living Situation: Alone Current Living Situation Comment: ranch style home current occupational status: retired Feels Safe at Home: Yes Safety Concerns: Feels Safe At This Time Assistive Devices: None Review of Systems Review of Systems: REVIEW OF SYSTEMS: Constitutional: No fever, sweats or chills Eyes: No diplopia, no worsening or blurred vision ENT: normal hearing, no trouble swallowing Respiratory: No cough, sputum, dyspnea at rest or on exertion Cardiovascular: No chest pain, tightness or palpitations Abdomen: No pain, nausea, vomiting, diarrhea or constipation Musculoskeletal: (+) joint pain, No calf pain, swelling Neurologic: No weakness, numbness/tingling, or balance problems Psychiatric: No anxiety or depression Skin: No rash or itch Physical Exam Physical Exam: PHYSICAL EXAM: General: awake, alert, no apparent distress Head: Normocephalic, atraumatic ENT: PERRL, EOMI, no pharyngeal exudate, mucous membranes moist Neuro: AAO x 3, speech clear and appropriate, strength intact bilaterally 5/5, sensation intact and equal all extremities and dermatomes, no pronator drift Chest: equal rise and fall of the chest, no accessory muscle use, no heaves or thrills, Clear to auscultation, on room air, Cardiac: Regular rate and rhythm, telemetry reviewed, skin warm dry, cap refill <3 seconds, peripheral pulses +2 no JVD, no murmur, no edema GI: NABS x 4 quadrants, soft, nontender to palpation, no rebound, guarding or tenderness : Spontaneously voiding, no pain, no CVA tenderness, Extremities: circumferential erythema to right ankle tracking cephalad, right metatarsal erythema and warmth, non painful, no drainage calfs nontender to palpation Psych: Normal mood and affect Results & Data Results & Data ([facility]) Vital Signs (Past 12 Hours) Vital Signs Temp Pulse Pulse Resp BP BP Pulse Ox 12/26/20 21:28 180/82 H 12/26/20 19:54 58 L 20 185/82 H 96 12/26/20 18:03 36.4 C L 59 L 20 140/65 93 12/26/20 17:47 62 20 219/79 H 98 Laboratory Results Abnormal lab results 12/26/20 12/26/20 12/26/20 Range/Units 19:31 19:42 19:42 Hct 34.4 L (37-47) % MPV 11.3 H (7.4-10.4) fL [place] # (Auto) 0.82 H (0.11-0.59) K/uL ESR 51 H (0-30) mm/hr Sodium 125 L (136-145) mmol/L Chloride 94 L (98-107) mmol/L BUN 30 H (7-18) mg/dl BUN/Creatinine Ratio 30.5 H (10-20) Glucose 177 H (70-99) mg/dl AST 13 L (15-37) U/L C-Reactive Protein 7.49 H (0-0.29) mg/dl Urine Osmolality (500-800) mOsm/kg 12/26/20 Range/Units 21:30 Hct (37-47) % MPV (7.4-10.4) fL [place] # (Auto) (0.11-0.59) K/uL ESR (0-30) mm/hr Sodium (136-145) mmol/L Chloride (98-107) mmol/L BUN (7-18) mg/dl BUN/Creatinine Ratio (10-20) Glucose (70-99) mg/dl AST (15-37) U/L C-Reactive Protein (0-0.29) mg/dl Urine Osmolality 290 L (500-800) mOsm/kg Diagnostic Findings Right ankle film pending Medications Administered Vancomycin HCl 1,500 mg/ (Sodium Chloride) 530 mls @ 200 mls/hr IV NOW ONE Stop: 12/26/20 23:06 Last Admin: 12/26/20 20:56 Dose: 200 mls/hr Documented by: [id number] ECG Additional Comments: Vent. Rate : 049 BPM Atrial Rate : 049 BPM P-R Int : 196 ms QRS Dur : 096 ms QT Int : 454 ms P-R-T Axes : 094 -12 121 degrees QTc Int : 410 ms Sinus bradycardia Abnormal ECG When compared with ECG of 30-MAR-2020 09:40, No significant change Code Status & VTE Plan Code Status CODE: FULL VTE: SCD's, Lovenox 40 sq daily VTE Prophylaxis Plan VTE Prophylaxis will be ordered: Yes Supervising Physician Co-Signing Physician Notes Attending addendum: I have physically seen this patient, have supervised the TITUS's activities, and agree with the H&P unless as otherwise noted. Assessment and Plan: Cellulitis of right foot and ankle/diabetic foot infection- Placed on vancomycin IV and Zosyn IV Consult wound care Further assessment for possible osteomyelitis if not responsive to antibiotics as above Remaining orders and notations as noted PG Care Time/CCT Total # of Minutes Spent Total Time Spent with Patient: Total time spent is greater than 50% in coordination of care (as documented) at patient's floor/unit and/or counseling patient: Coding Level of Care Code 99352 Initial Inpt Care Lvl 3 Diagnoses Cellulitis L03.90 Hypertension I10 Hyperlipemia E78.5 Type 2 diabetes mellitus with diabetic neuropathy, unspecified E11.40 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 L97.519 PAD (peripheral artery disease) I73.9 Hyponatremia E87.1
[2020-12-26] MEDS ORDERED: GLUCAGON FOR INJ 1 MG VIAL SQ PRN (23:31)
[2020-12-26] MEDS ORDERED: ONDANSETRON INJ 2 MG/ML 2 ML VIAL IV PRN (23:31)
[2020-12-26] MEDS ORDERED: PIPERACILL/TAZOBAC CONSULT ACTIVE PRN (23:31)
[2020-12-26] MEDS ORDERED: ACETAMINOPHEN 325 MG TAB PO PRN (23:31)
[2020-12-26] MEDS ORDERED: GLUCOSE 10 TABS/TUBE PO PRN (23:31)
[2020-12-26] MEDS ORDERED: DEXTROSE 50% 50 ML SYRINGE IV PRN (23:31)
[2020-12-26] MEDS ORDERED: CARBOHYDRATES FOR HYPOGLYCEMIA PO PRN (23:31)
[2020-12-26] MEDS ORDERED: GLUCOSE 40% GEL 15 GM TUBE PO PRN (23:31)
[2020-12-26 23:39] LABS: Creatinine Urine Random 35.4 mg/dl
[2020-12-27] LABS: Thyroid Stimulating Hormone 1.9 uIu/ml (0.300-4.500)
[2020-12-27] MEDS: ENOXAPARIN INJ 40 MG/0.4 ML SYR SQ SCH ×2 (00:47→21:04)
[2020-12-27] MEDS: PIPERACILLIN/TAZOBACTAM 3.375 GM in DEXTROSE 5% 100 ML IV SCH ×3 (05:24→21:47)
[2020-12-27] MEDS: POLYETHYLENE (MIRALAX) 17 GM PACK PO PRN (06:21)
[2020-12-27 07:02] LABS: Basophils # (auto) 0.01 K/uL (0-0.2); Basophils % (auto) 0.2 %; Eosinophils # (auto) 0.17 K/uL (0-0.5); Eosinophils % (auto) 2.7 %; Hematocrit (blood only) 32.7 % (37-47); Hemoglobin 11.3 g/dL (12.0-16.0); Immature Granulocytes # (auto) 0.01 K/uL (0.00-0.02); Immature Granulocytes % (auto) 0.2 %; Lymphocytes # (auto) 1.61 K/uL (1.2-3.4); Lymphocytes % (auto) 25.9 %; Mean Corpuscular Hemoglobin 28.1 pg (25-34); Mean Corpuscular Hgb Conc 34.6 g/dL (32-36); Mean Corpuscular Volume 81.3 fL (80-100); Mean Platelet Volume 10.8 fL (7.4-10.4); Monocytes # (auto) 0.67 K/uL (0.11-0.59); Monocytes % (auto) 10.8 %; Neutrophils # (auto) 3.75 K/uL (1.4-6.5); Neutrophils % (auto) 60.2 %; Platelet Count 267 K/uL (130-400); RDW Coefficient of Variation 13.5 % (11.5-14.5); RDW Standard Deviation 40.9 fL (36.4-46.3); Red Blood Count 4.02 M/uL (4.2-5.4); White Blood Count 6.22 K/uL (4.8-10.8)
--- NOTE | 2020-12-27 07:05 | XRay Report ---
XR ankle RT min 3V routine HISTORY: 80 years-old Female hardware with ovelying cellulits acute pain of the right foot and ankle COMPARISON: Right foot radiographs 12/26/2020 TECHNIQUE: 3 views of the right ankle FINDINGS: Demineralized appearance the bones. Lateral plate and screw fusion of the distal fibula. There are 2 cannulated screws of the medial malleolus. No evidence of hardware fracture or loosening. Mild tibiot alar, subtalar and midfoot osteoarthritis. Small Achilles enthesophyte of the calcaneus. No acute fra cture, dislocation, osseous erosion or osteochondral defect. There is mild circumferential soft tissu e swelling of the ankle. IMPRESSION: 1. Soft tissue swelling without acute fracture. 2. ORIF changes of the ankle. No evidence of hardware complication. ACT 112: Negative or not required by law. The above report was generated using voice recognition software. It may contain grammatical, syntax o r spelling errors. Electronically signed by: Abraham Solis M.D. 12/27/2020 7:03 AM
[2020-12-27] MEDS: carvediloL 25 MG TAB PO SCH ×2 (07:38→21:03)
[2020-12-27] MEDS: cloNIDine HCL 0.1 MG TAB PO SCH ×2 (07:38→21:03)
[2020-12-27] MEDS: lisinopril 40 MG TAB PO SCH (07:39)
[2020-12-27] MEDS: hydrALAZINE 10 MG TAB PO SCH ×2 (07:39→21:03)
[2020-12-27] MEDS: ATORVASTATIN 10 MG TAB PO SCH (07:39)
[2020-12-27] MEDS: amLODIPine BESYLATE 5 MG TAB PO SCH (07:39)
[2020-12-27] MEDS ORDERED: hydrALAZINE HCL 20 MG/ML VIAL IV STA (07:58)
[2020-12-27 08:06] LABS: BUN Creatinine Ratio 27.6 (10-20); C Reactive Protein 5.49 mg/dl (0-0.29); Calcium 8.6 mg/dl (8.5-10.1); Creatinine Clr Calc Pharmacy 49.5 ml/min; Est GFR (Non-African American) 60.4 ml/min; Magnesium 1.9 mg/dl (1.8-2.4); Potassium 3.8 mmol/L (3.5-5.1)
--- NOTE | 2020-12-27 08:18 | Hospitalist Progress Note ---
Date of Service December 27, 2020 Assessment & Plan (1) Cellulitis: Plan: IMPROVING Involving the right ankle and possible of right toe Will treat as diabetic ulcer- Zosyn and Vancomycin for now ESR and CRP improving --> 44 and 5.49 today Xray of RIGHT ankle: soft tissue swelling without acute fracture. ORIF changes to ankle without evidence of hardware complications Continue on Zosyn/Vancomycin for now WBC wnl, afebrile Continue to monitor Patient seen by Dr Fortune yesterday in clinic and sent to ER --> pt with PAD and known iliac blockage and needs vascular procedure. Shreya's office knows and they spoke with vascular surgeon at [place] and they stated they wanted her on abx to help infection and hoping to hold off until Dr Cash returns so she can have vascular procedure. Abn ABIs at office. Will consult during admission to coordinate care/intervention/follow-up (2) Hypertension: Plan: CAD/HTN/HLD Very poorly controlled as outpatient Recent discontinuation of HCTZ by Dr Mcpherson in December 20 Recent ECHO EF 70% with normal LV size with type II diastolic dysfunction (11/28) Continued on her usual ASA 81mg, atorvastatin 10mg, amlodipine 5mg, clonidine 0.1mg BID, carvedilol 25mg, lisinopril 40mg daily BP elevated to 200 systolic/100 diastolic this AM and hydralazine ordered but patient given AM meds early and BP 125/65 prior to hydralazine Continue to monitor (3) Hyperlipemia: Plan: No acute needs, continue atorvastatin 10mg daily (4) Type 2 diabetes mellitus with diabetic neuropathy, unspecified: Plan: Most recent A1c in our system 7.04 Oct 2019, will repeat with AM labs Home metformin 1000mg BID, glimepiride 4mg BID held ISS while inpatient Change to aspart sliding scale- CF 30 with ratio 1:15 - follow with infection BSGs acceptable Continue to monitor (5) 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: Plan: No acute drainage, cover daily already shaved down- not infected looking (6) PAD (peripheral artery disease): Plan: See report as per HPI - Follows at [facility] -- see above. Needs vascular intervention but attempting to wait until Dr Cash back in town - evaluation when cellulitis is cleared If worsens, could consider discussion with Dr. Rivera while inpatient as patient has never seen Dr. Cash yet but has appt scheduled (7) Hyponatremia: Plan: Chronic patient recently had HCTZ stopped- likely related to water > solute intake and diuretic use - Serum osmo 269, urine osmol 290, urine spec gravity pending Patient on diuretic urine sodium not sent - free water restrict - Follow in morning- HCTZ held (discontinued as above), will be getting Zosyn q8 - TSH wnl - Patient does also endorse no salt in diet - Normal renal function - K normal - asymptomatic no acute interventions needed at this time Na improved to 129 today, asymptomatic Continue to monitor Plan: DVT Prophylaxis --> Lovenox SQ while inpatient Dispo: continued inpatient stay on IV abx Admission and Anticipated Discharge Date Admission Date: December 26, 2020 Subjective Patient evaluated this morning. Redness improving. LEss tender. Remains on IV abx. Was seen by Dr. Fortune yesterday in clinic who placed on Keflex which she took 1-2 doses of before coming into the hospital. Per podiatry, [facility] (discussed with as Dr Cash currently off) recommended to treat with antibiotics and clear up infection until Dr. Cash back [facility] vascular procedure. Patient denies fever, chills, chest pain, shortness of breath, nausea or vomiting at this time. Review of Systems Review of Systems: All systems reviewed & are unremarkable except as noted in HPI & below Physical Exam Physical Exam: PHYSICAL EXAM: General: awake, alert, no apparent distress, laying in bed resting comfortably Head: Normocephalic, atraumatic ENT: PERRL, EOMI, no pharyngeal exudate, mucous membranes moist Neuro: AAO x 3, speech clear and appropriate, strength intact bilaterally 5/5, sensation intact and equal all extremities and dermatomes, no pronator drift Chest: equal rise and fall of the chest, no accessory muscle use, no heaves or thrills, Clear to auscultation, on room air, Cardiac: Regular rate and rhythm, telemetry reviewed, skin warm dry, cap refill <3 seconds, peripheral pulses +2 no JVD, no murmur, no edema GI: NABS x 4 quadrants, soft, nontender to palpation, no rebound, guarding or tenderness : Spontaneously voiding, no pain, no CVA tenderness, Extremities: circumferential erythema to right ankle tracking cephalad, right metatarsal erythema and warmth (decreased), minimally tedner to medial ankle, no drainage calfs nontender to palpation. treated callous to R great toe with bandaid and dressing c/d/i Psych: Normal mood and affect Results & Data Results & Data ([facility]) Vital Signs (Past 12 Hours) Vital Signs Temp Pulse Pulse Resp BP BP Pulse Ox 12/27/20 07:22 36.4 C L 53 L 16 201/65 H 181/71 H 96 12/27/20 00:17 36.8 C 55 L 22 179/80 H 98 12/26/20 23:31 36.8 C 55 L 22 179/80 H 98 12/26/20 23:02 171/73 H 12/26/20 22:38 54 L 20 96 12/26/20 21:28 180/82 H Laboratory Results 12/27/20 12/27/20 12/27/20 Range/Units 06:15 06:15 06:15 WBC 6.22 (4.8-10.8) K/uL RBC 4.02 L (4.2-5.4) M/uL Hgb 11.3 L (12.0-16.0) g/dL Hct 32.7 L (37-47) % MCV 81.3 (80-100) fL MCH 28.1 (25-34) pg MCHC 34.6 (32-36) g/dL RDW Std Deviation 40.9 (36.4-46.3) fL RDW Coeff of Alyas 13.5 (11.5-14.5) % Plt Count 267 (130-400) K/uL MPV 10.8 H (7.4-10.4) fL Immature Gran % (Auto) 0.2 % Neut % (Auto) 60.2 % Lymph % (Auto) 25.9 % [place] % (Auto) 10.8 % Eos % (Auto) 2.7 % Baso % (Auto) 0.2 % Neut # (Auto) 3.75 (1.4-6.5) K/uL Lymph # (Auto) 1.61 (1.2-3.4) K/uL [place] # (Auto) 0.67 H (0.11-0.59) K/uL Eos # (Auto) 0.17 (0-0.5) K/uL Baso # (Auto) 0.01 (0-0.2) K/uL Immature Gran # (Auto) 0.01 (0.00-0.02) K/uL ESR 44 H (0-30) mm/hr PT (9.0-12.0) Seconds INR (0.9-1.1) Sodium 129 L (136-145) mmol/L Potassium 3.8 D (3.5-5.1) mmol/L Chloride 98 (98-107) mmol/L Carbon Dioxide 24 (21-32) mmol/L Anion Gap 7.0 (3-11) BUN 25 H (7-18) mg/dl Creatinine 0.91 (0.6-1.2) mg/dl Est Cr Clr Drug Dosing 49.5 ml/min Est GFR ( Amer) 70.0 ml/min Est GFR (Non-Af Amer) 60.4 ml/min BUN/Creatinine Ratio 27.6 H (10-20) Glucose 121 H (70-99) mg/dl Osmolality (280-300) mOsm/kg Calcium 8.6 (8.5-10.1) mg/dl Magnesium 1.9 (1.8-2.4) mg/dl Total Bilirubin (0.2-1) mg/dl AST (15-37) U/L ALT (12-78) U/L Alkaline Phosphatase (45-117) U/L C-Reactive Protein 5.49 H (0-0.29) mg/dl Total Protein (6.4-8.2) gm/dl Albumin (3.4-5.0) gm/dl Globulin (2.5-4.0) gm/dl Albumin/Globulin Ratio (0.9-2) TSH (0.300-4.500) uIu/ml Ur Specific [place] (1.000-1.030) Urine Osmolality (500-800) mOsm/kg Ur Random Creatinine mg/dl Ur Random Urea Nitrogn mg/dl COVID-19 Eval Order SARS-CoV-2 (PCR) (Negative) 12/26/20 12/26/20 12/26/20 Range/Units 21:30 21:30 21:30 WBC (4.8-10.8) K/uL RBC (4.2-5.4) M/uL Hgb (12.0-16.0) g/dL Hct (37-47) % MCV (80-100) fL MCH (25-34) pg MCHC (32-36) g/dL RDW Std Deviation (36.4-46.3) fL RDW Coeff of Alysa (11.5-14.5) % Plt Count (130-400) K/uL MPV (7.4-10.4) fL Immature Gran % (Auto) % Neut % (Auto) % Lymph % (Auto) % [place] % (Auto) % Eos % (Auto) % Baso % (Auto) % Neut # (Auto) (1.4-6.5) K/uL Lymph # (Auto) (1.2-3.4) K/uL [place] # (Auto) (0.11-0.59) K/uL Eos # (Auto) (0-0.5) K/uL Baso # (Auto) (0-0.2) K/uL Immature Gran # (Auto) (0.00-0.02) K/uL ESR (0-30) mm/hr PT (9.0-12.0) Seconds INR (0.9-1.1) Sodium (136-145) mmol/L Potassium (3.5-5.1) mmol/L Chloride (98-107) mmol/L Carbon Dioxide (21-32) mmol/L Anion Gap (3-11) BUN (7-18) mg/dl Creatinine (0.6-1.2) mg/dl Est Cr Clr Drug Dosing ml/min Est GFR ( Amer) ml/min Est GFR (Non-Af Amer) ml/min BUN/Creatinine Ratio (10-20) Glucose (70-99) mg/dl Osmolality (280-300) mOsm/kg Calcium (8.5-10.1) mg/dl Magnesium (1.8-2.4) mg/dl Total Bilirubin (0.2-1) mg/dl AST (15-37) U/L ALT (12-78) U/L Alkaline Phosphatase (45-117) U/L C-Reactive Protein (0-0.29) mg/dl Total Protein (6.4-8.2) gm/dl Albumin (3.4-5.0) gm/dl Globulin (2.5-4.0) gm/dl Albumin/Globulin Ratio (0.9-2) TSH (0.300-4.500) uIu/ml Ur Specific [place] 1.010 (1.000-1.030) Urine Osmolality 290 L (500-800) mOsm/kg Ur Random Creatinine 35.4 mg/dl Ur Random Urea Nitrogn 386 mg/dl COVID-19 Eval Order SARS-CoV-2 (PCR) (Negative) 12/26/20 12/26/20 12/26/20 Range/Units 21:26 20:00 20:00 WBC (4.8-10.8) K/uL RBC (4.2-5.4) M/uL Hgb (12.0-16.0) g/dL Hct (37-47) % MCV (80-100) fL MCH (25-34) pg MCHC (32-36) g/dL RDW Std Deviation (36.4-46.3) fL RDW Coeff of Alysa (11.5-14.5) % Plt Count (130-400) K/uL MPV (7.4-10.4) fL Immature Gran % (Auto) % Neut % (Auto) % Lymph % (Auto) % [place] % (Auto) % Eos % (Auto) % Baso % (Auto) % Neut # (Auto) (1.4-6.5) K/uL Lymph # (Auto) (1.2-3.4) K/uL [place] # (Auto) (0.11-0.59) K/uL Eos # (Auto) (0-0.5) K/uL Baso # (Auto) (0-0.2) K/uL Immature Gran # (Auto) (0.00-0.02) K/uL ESR (0-30) mm/hr PT (9.0-12.0) Seconds INR (0.9-1.1) Sodium (136-145) mmol/L Potassium (3.5-5.1) mmol/L Chloride (98-107) mmol/L Carbon Dioxide (21-32) mmol/L Anion Gap (3-11) BUN (7-18) mg/dl Creatinine (0.6-1.2) mg/dl Est Cr Clr Drug Dosing ml/min Est GFR ( Amer) ml/min Est GFR (Non-Af Amer) ml/min BUN/Creatinine Ratio (10-20) Glucose (70-99) mg/dl Osmolality 269 L (280-300) mOsm/kg Calcium (8.5-10.1) mg/dl Magnesium (1.8-2.4) mg/dl Total Bilirubin (0.2-1) mg/dl AST (15-37) U/L ALT (12-78) U/L Alkaline Phosphatase (45-117) U/L C-Reactive Protein (0-0.29) mg/dl Total Protein (6.4-8.2) gm/dl Albumin (3.4-5.0) gm/dl Globulin (2.5-4.0) gm/dl Albumin/Globulin Ratio (0.9-2) TSH (0.300-4.500) uIu/ml Ur Specific [place] (1.000-1.030) Urine Osmolality (500-800) mOsm/kg Ur Random Creatinine mg/dl Ur Random Urea Nitrogn mg/dl COVID-19 Eval Order Covid19 at [facility] SARS-CoV-2 (PCR) NEGATIVE (Negative) 12/26/20 12/26/20 12/26/20 Range/Units 19:42 19:42 19:42 WBC (4.8-10.8) K/uL RBC (4.2-5.4) M/uL Hgb (12.0-16.0) g/dL Hct (37-47) % MCV (80-100) fL MCH (25-34) pg MCHC (32-36) g/dL RDW Std Deviation (36.4-46.3) fL RDW Coeff of Alysa (11.5-14.5) % Plt Count (130-400) K/uL MPV (7.4-10.4) fL Immature Gran % (Auto) % Neut % (Auto) % Lymph % (Auto) % [place] % (Auto) % Eos % (Auto) % Baso % (Auto) % Neut # (Auto) (1.4-6.5) K/uL Lymph # (Auto) (1.2-3.4) K/uL [place] # (Auto) (0.11-0.59) K/uL Eos # (Auto) (0-0.5) K/uL Baso # (Auto) (0-0.2) K/uL Immature Gran # (Auto) (0.00-0.02) K/uL ESR 51 H (0-30) mm/hr PT 10.5 (9.0-12.0) Seconds INR 1.0 (0.9-1.1) Sodium 125 L (136-145) mmol/L Potassium 4.8 (3.5-5.1) mmol/L Chloride 94 L (98-107) mmol/L Carbon Dioxide 25 (21-32) mmol/L Anion Gap 6.0 (3-11) BUN 30 H (7-18) mg/dl Creatinine 0.98 (0.6-1.2) mg/dl Est Cr Clr Drug Dosing 46.0 ml/min Est GFR ( Amer) 64.0 ml/min Est GFR (Non-Af Amer) 55.3 ml/min BUN/Creatinine Ratio 30.5 H (10-20) Glucose 177 H (70-99) mg/dl Osmolality (280-300) mOsm/kg Calcium 9.3 (8.5-10.1) mg/dl Magnesium (1.8-2.4) mg/dl Total Bilirubin 0.5 (0.2-1) mg/dl AST 13 L (15-37) U/L ALT 25 (12-78) U/L Alkaline Phosphatase 89 (45-117) U/L C-Reactive Protein 7.49 H (0-0.29) mg/dl Total Protein 7.5 (6.4-8.2) gm/dl Albumin 3.6 (3.4-5.0) gm/dl Globulin 3.9 (2.5-4.0) gm/dl Albumin/Globulin Ratio 0.9 (0.9-2) TSH 1.900 (0.300-4.500) uIu/ml Ur Specific [place] (1.000-1.030) Urine Osmolality (500-800) mOsm/kg Ur Random Creatinine mg/dl Ur Random Urea Nitrogn mg/dl COVID-19 Eval Order SARS-CoV-2 (PCR) (Negative) 12/26/20 Range/Units 19:31 WBC 8.61 (4.8-10.8) K/uL RBC 4.27 (4.2-5.4) M/uL Hgb 12.2 (12.0-16.0) g/dL Hct 34.4 L (37-47) % MCV 80.6 (80-100) fL MCH 28.6 (25-34) pg MCHC 35.5 (32-36) g/dL RDW Std Deviation 39.4 (36.4-46.3) fL RDW Coeff of Alysa 13.5 (11.5-14.5) % Plt Count 294 (130-400) K/uL MPV 11.3 H (7.4-10.4) fL Immature Gran % (Auto) 0.2 % Neut % (Auto) 72.5 % Lymph % (Auto) 16.4 % [place] % (Auto) 9.5 % Eos % (Auto) 1.3 % Baso % (Auto) 0.1 % Neut # (Auto) 6.24 (1.4-6.5) K/uL Lymph # (Auto) 1.41 (1.2-3.4) K/uL [place] # (Auto) 0.82 H (0.11-0.59) K/uL Eos # (Auto) 0.11 (0-0.5) K/uL Baso # (Auto) 0.01 (0-0.2) K/uL Immature Gran # (Auto) 0.02 (0.00-0.02) K/uL ESR (0-30) mm/hr PT (9.0-12.0) Seconds INR (0.9-1.1) Sodium (136-145) mmol/L Potassium (3.5-5.1) mmol/L Chloride (98-107) mmol/L Carbon Dioxide (21-32) mmol/L Anion Gap (3-11) BUN (7-18) mg/dl Creatinine (0.6-1.2) mg/dl Est Cr Clr Drug Dosing ml/min Est GFR ( Amer) ml/min Est GFR (Non-Af Amer) ml/min BUN/Creatinine Ratio (10-20) Glucose (70-99) mg/dl Osmolality (280-300) mOsm/kg Calcium (8.5-10.1) mg/dl Magnesium (1.8-2.4) mg/dl Total Bilirubin (0.2-1) mg/dl AST (15-37) U/L ALT (12-78) U/L Alkaline Phosphatase (45-117) U/L C-Reactive Protein (0-0.29) mg/dl Total Protein (6.4-8.2) gm/dl Albumin (3.4-5.0) gm/dl Globulin (2.5-4.0) gm/dl Albumin/Globulin Ratio (0.9-2) TSH (0.300-4.500) uIu/ml Ur Specific [place] (1.000-1.030) Urine Osmolality (500-800) mOsm/kg Ur Random Creatinine mg/dl Ur Random Urea Nitrogn mg/dl COVID-19 Eval Order SARS-CoV-2 (PCR) (Negative) Diagnostic Findings Ankle X-Ray 12/26/20 21:42 XR ankle RT min 3V routine HISTORY: 80 years-old Female hardware with ovelying cellulits acute pain of the right foot and ankle COMPARISON: Right foot radiographs 12/26/2020 TECHNIQUE: 3 views of the right ankle FINDINGS: Demineralized appearance the bones. Lateral plate and screw fusion of the distal fibula. There are 2 cannulated screws of the medial malleolus. No evidence of hardware fracture or loosening. Mild tibiotalar, subtalar and midfoot osteoarthritis. Small Achilles enthesophyte of the calcaneus. No acute fracture, dislocation, osseous erosion or osteochondral defect. There is mild circumferential soft tissue swelling of the ankle. IMPRESSION: 1. Soft tissue swelling without acute fracture. 2. ORIF changes of the ankle. No evidence of hardware complication. ACT 112: Negative or not required by law. The above report was generated using voice recognition software. It may contain grammatical, syntax or spelling errors. Electronically signed by: Abraham Solis M.D. 12/27/2020 7:03 AM PG Care Time/CCT Total # of Minutes Spent Total Time Spent with Patient: Total time spent is greater than 50% in coordination of care (as documented) at patient's floor/unit and/or counseling patient: Coding Level of Care Code 52408 Subseq Hosp Care Lvl 2 Diagnoses Cellulitis L03.90 Hypertension I10 Hypertension type: unspecified Hyperlipemia E78.5 Type 2 diabetes mellitus with diabetic neuropathy, unspecified E11.40 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 L97.519 PAD (peripheral artery disease) I73.9 Hyponatremia E87.1 (1) Hypertension Hypertension type: unspecified Qualified Code(s): I10 - Essential (primary) hypertension
[2020-12-27] MEDS: INSULIN ASPART 100 UNITS/ML 3 ML PEN SC SCH ×4 (09:01→21:13)
[2020-12-27] MEDS ORDERED: hydrALAZINE HCL 20 MG/ML VIAL IV PRN (11:54)
[2020-12-27] MEDS ORDERED: SODIUM CHLORIDE 0.9% 500 ML IV SCH (14:30)
--- NOTE | 2020-12-27 16:06 | Orthopedic Consultation ---
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 Fortune as scheduled in 2 weeks History of Present Illness Reason for Consultation: Right foot ulcer; ankle cellulitis Requesting Physician: Raymond Berry MD Attending Physician: Gurwinder Casiano MD History of Present Illness 80 YOF with past medical history of : DMII, HTN, HLD, PAD, Broken right ankle with hardware. Patient came to the ED today for evaluation of right lower extremity cellulitis. Patient states that she has noticed redness about 2-3 days ago that has gotten progressively more red at her ankle. 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 She was prescribed Keflex as outpatient and took one dose of this today. She has a right toe callous that was shaved down and is covered with gauze and coban with some redness noted at the metatarsal of the great toe. She denies any pain or drainage, there is no other open area noted. She denies fevers or chills. Patient will be admitted for IV antibiotics with Zosyn and Vancomycin, follow biomarkers and Xray of the ankle is pending. Of note her arterial study today should be on her hard chart, but reveled a RT ELIO of 0.5, Lt ELIO 0.98, no digital pressure of the right toe recorded secondary to toe dressing. 50-74% stenosis of the popliteal. Routine labs also reveal hyponatremia, patient on HCTZ as outpatient. Patient has gotten her COVID vaccine and is COVID negative on admission. Allergies Allergy/AdvReac Type Severity Reaction Status Date / Time metoprolol Allergy Severe VOMIT,DIARR Unverified 12/26/20 20:43 HEA amlodipine AdvReac Intermediate ELEVATED BP Verified 12/26/20 20:43 fenofibrate AdvReac Intermediate INCREASED Verified 12/26/20 20:43 URINATION verapamil AdvReac Intermediate INCREASED Verified 12/26/20 20:43 URINATION Home Medications Medication Instructions Recorded Confirmed Type aspirin 81 mg tablet,delayed 81 mg PO HS 03/04/20 12/26/20 History release atorvastatin 10 mg tablet 10 mg PO QAM 03/04/20 12/26/20 History carvedilol 25 mg tablet 25 mg PO BID 03/04/20 12/26/20 History cholecalciferol (vitamin D3) 25 0 mcg PO QAM 03/04/20 12/26/20 History mcg (1,000 unit) capsule (Vitamin D3) clonidine HCl 0.1 mg tablet 0.1 mg PO BID 03/04/20 12/26/20 History glimepiride 4 mg tablet 4 mg PO BID 03/04/20 12/26/20 History hydralazine 10 mg tablet 20 mg PO BID 03/04/20 12/26/20 History metformin 500 mg tablet,extended 1,000 mg PO BIDM 03/04/20 12/26/20 History release 24 hr amlodipine 5 mg tablet (Norvasc) 5 mg PO QAM 12/01/20 12/26/20 History coenzyme Q10 100 mg capsule 100 mg PO QAM 12/01/20 12/26/20 History (CoQ-10) fish, borage, flaxseed oils-omega 1 cap PO QDD 12/01/20 12/26/20 History 3,6,9 comb no.1 1,200 mg capsule (Townsend 3-6-9) hydrochlorothiazide 25 mg tablet 25 - 50 mg PO QAM 12/01/20 12/26/20 History lisinopril 40 mg tablet (Zestril) 40 mg PO QAM 12/01/20 12/26/20 History potassium chloride 10 mEq 10 meq PO DAILY PRN 12/01/20 12/26/20 History tablet,extended release Patient History Medical History Corns and callosities CVA (cerebral vascular accident) Hallux valgus of left foot Hallux valgus of right foot Hyperlipemia Hypertension Myocardial infarct, old 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 Type 2 diabetes mellitus with diabetic neuropathy, unspecified Type 2 diabetes mellitus with diabetic polyneuropathy Surgical History History of bunionectomy of right great toe History of cardiac cath Status post ORIF of fracture of ankle Social History Smoking Status: Former smoker Tobacco Type: Cigarettes Number of Years Since Quit: 40; Second Hand Exposure: No; Do You Dip or Chew Tobacco: No; Hx Alcohol Use: Yes Alcohol type: wine Hx Substance Use: No Preferred Language: [place] Communication Ability: Effective 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 Physical Exam Physical Exam: Right lower extremity: Great toe; 2.5 cm x 2 cm ulceration with central maceration and surrounding excoriated skin. TTP. No active drainage. Periph pulses palpable. Cap refill difficult to note bundy to nail onychomycosis. Ankle: edema, erythema and mild warmth circumferentially. TTP over medial and lateral surgical incision sites with palpable hardware. FROM of ankle, foot toes. Numbness to palpation pads of digits 2-5. Calf soft and supple. No open skin areas or discharge Results & Data ([facility]) Vital Signs (Past 12 Hours) Vital Signs Temp Pulse Resp BP BP Pulse Ox 12/27/20 15:14 36.6 C 52 L 16 126/47 L 95 12/27/20 08:55 125/65 12/27/20 07:22 36.4 C L 53 L 16 201/65 H 181/71 H 96 Laboratory Results Lab Results 12/26/20 12/26/20 12/26/20 Range/Units 19:31 19:42 19:42 WBC 8.61 (4.8-10.8) K/uL RBC 4.27 (4.2-5.4) M/uL Hgb 12.2 (12.0-16.0) g/dL Hct 34.4 L (37-47) % MCV 80.6 (80-100) fL MCH 28.6 (25-34) pg MCHC 35.5 (32-36) g/dL RDW Std Deviation 39.4 (36.4-46.3) fL RDW Coeff of Alysa 13.5 (11.5-14.5) % Plt Count 294 (130-400) K/uL MPV 11.3 H (7.4-10.4) fL Immature Gran % (Auto) 0.2 % Neut % (Auto) 72.5 % Lymph % (Auto) 16.4 % Haralson % (Auto) 9.5 % Eos % (Auto) 1.3 % Baso % (Auto) 0.1 % Neut # (Auto) 6.24 (1.4-6.5) K/uL Lymph # (Auto) 1.41 (1.2-3.4) K/uL Haralson # (Auto) 0.82 H (0.11-0.59) K/uL Eos # (Auto) 0.11 (0-0.5) K/uL Baso # (Auto) 0.01 (0-0.2) K/uL Immature Gran # (Auto) 0.02 (0.00-0.02) K/uL ESR 51 H (0-30) mm/hr PT 10.5 (9.0-12.0) Seconds INR 1.0 (0.9-1.1) Sodium (136-145) mmol/L Potassium (3.5-5.1) mmol/L Chloride (98-107) mmol/L Carbon Dioxide (21-32) mmol/L Anion Gap (3-11) BUN (7-18) mg/dl Creatinine (0.6-1.2) mg/dl Est Cr Clr Drug Dosing ml/min Est GFR ( Amer) ml/min Est GFR (Non-Af Amer) ml/min BUN/Creatinine Ratio (10-20) Glucose (70-99) mg/dl POC Glucose (70-99) mg/dl Osmolality (280-300) mOsm/kg Uric Acid (2.6-7.2) mg/dl Calcium (8.5-10.1) mg/dl Magnesium (1.8-2.4) mg/dl Total Bilirubin (0.2-1) mg/dl AST (15-37) U/L ALT (12-78) U/L Alkaline Phosphatase (45-117) U/L C-Reactive Protein (0-0.29) mg/dl Total Protein (6.4-8.2) gm/dl Albumin (3.4-5.0) gm/dl Globulin (2.5-4.0) gm/dl Albumin/Globulin Ratio (0.9-2) TSH (0.300-4.500) uIu/ml Ur Specific Allen (1.000-1.030) Urine Osmolality (500-800) mOsm/kg Ur Random Creatinine mg/dl Ur Random Urea Nitrogn mg/dl COVID-19 Eval Order SARS-CoV-2 (PCR) (Negative) 12/26/20 12/26/20 12/26/20 Range/Units 19:42 20:00 20:00 WBC (4.8-10.8) K/uL RBC (4.2-5.4) M/uL Hgb (12.0-16.0) g/dL Hct (37-47) % MCV (80-100) fL MCH (25-34) pg MCHC (32-36) g/dL RDW Std Deviation (36.4-46.3) fL RDW Coeff of Alysa (11.5-14.5) % Plt Count (130-400) K/uL MPV (7.4-10.4) fL Immature Gran % (Auto) % Neut % (Auto) % Lymph % (Auto) % Haralson % (Auto) % Eos % (Auto) % Baso % (Auto) % Neut # (Auto) (1.4-6.5) K/uL Lymph # (Auto) (1.2-3.4) K/uL Haralson # (Auto) (0.11-0.59) K/uL Eos # (Auto) (0-0.5) K/uL Baso # (Auto) (0-0.2) K/uL Immature Gran # (Auto) (0.00-0.02) K/uL ESR (0-30) mm/hr PT (9.0-12.0) Seconds INR (0.9-1.1) Sodium 125 L (136-145) mmol/L Potassium 4.8 (3.5-5.1) mmol/L Chloride 94 L (98-107) mmol/L Carbon Dioxide 25 (21-32) mmol/L Anion Gap 6.0 (3-11) BUN 30 H (7-18) mg/dl Creatinine 0.98 (0.6-1.2) mg/dl Est Cr Clr Drug Dosing 46.0 ml/min Est GFR ( Amer) 64.0 ml/min Est GFR (Non-Af Amer) 55.3 ml/min BUN/Creatinine Ratio 30.5 H (10-20) Glucose 177 H (70-99) mg/dl POC Glucose (70-99) mg/dl Osmolality (280-300) mOsm/kg Uric Acid (2.6-7.2) mg/dl Calcium 9.3 (8.5-10.1) mg/dl Magnesium (1.8-2.4) mg/dl Total Bilirubin 0.5 (0.2-1) mg/dl AST 13 L (15-37) U/L ALT 25 (12-78) U/L Alkaline Phosphatase 89 (45-117) U/L C-Reactive Protein 7.49 H (0-0.29) mg/dl Total Protein 7.5 (6.4-8.2) gm/dl Albumin 3.6 (3.4-5.0) gm/dl Globulin 3.9 (2.5-4.0) gm/dl Albumin/Globulin Ratio 0.9 (0.9-2) TSH 1.900 (0.300-4.500) uIu/ml Ur Specific Allen (1.000-1.030) Urine Osmolality (500-800) mOsm/kg Ur Random Creatinine mg/dl Ur Random Urea Nitrogn mg/dl COVID-19 Eval Order Covid19 at [facility] SARS-CoV-2 (PCR) NEGATIVE (Negative) 12/26/20 12/26/20 12/26/20 Range/Units 21:26 21:30 21:30 WBC (4.8-10.8) K/uL RBC (4.2-5.4) M/uL Hgb (12.0-16.0) g/dL Hct (37-47) % MCV (80-100) fL MCH (25-34) pg MCHC (32-36) g/dL RDW Std Deviation (36.4-46.3) fL RDW Coeff of Alysa (11.5-14.5) % Plt Count (130-400) K/uL MPV (7.4-10.4) fL Immature Gran % (Auto) % Neut % (Auto) % Lymph % (Auto) % Haralson % (Auto) % Eos % (Auto) % Baso % (Auto) % Neut # (Auto) (1.4-6.5) K/uL Lymph # (Auto) (1.2-3.4) K/uL Haralson # (Auto) (0.11-0.59) K/uL Eos # (Auto) (0-0.5) K/uL Baso # (Auto) (0-0.2) K/uL Immature Gran # (Auto) (0.00-0.02) K/uL ESR (0-30) mm/hr PT (9.0-12.0) Seconds INR (0.9-1.1) Sodium (136-145) mmol/L Potassium (3.5-5.1) mmol/L Chloride (98-107) mmol/L Carbon Dioxide (21-32) mmol/L Anion Gap (3-11) BUN (7-18) mg/dl Creatinine (0.6-1.2) mg/dl Est Cr Clr Drug Dosing ml/min Est GFR ( Amer) ml/min Est GFR (Non-Af Amer) ml/min BUN/Creatinine Ratio (10-20) Glucose (70-99) mg/dl POC Glucose (70-99) mg/dl Osmolality 269 L (280-300) mOsm/kg Uric Acid (2.6-7.2) mg/dl Calcium (8.5-10.1) mg/dl Magnesium (1.8-2.4) mg/dl Total Bilirubin (0.2-1) mg/dl AST (15-37) U/L ALT (12-78) U/L Alkaline Phosphatase (45-117) U/L C-Reactive Protein (0-0.29) mg/dl Total Protein (6.4-8.2) gm/dl Albumin (3.4-5.0) gm/dl Globulin (2.5-4.0) gm/dl Albumin/Globulin Ratio (0.9-2) TSH (0.300-4.500) uIu/ml Ur Specific Allen (1.000-1.030) Urine Osmolality 290 L (500-800) mOsm/kg Ur Random Creatinine 35.4 mg/dl Ur Random Urea Nitrogn 386 mg/dl COVID-19 Eval Order SARS-CoV-2 (PCR) (Negative) 12/26/20 12/27/20 12/27/20 Range/Units 21:30 06:15 06:15 WBC 6.22 (4.8-10.8) K/uL RBC 4.02 L (4.2-5.4) M/uL Hgb 11.3 L (12.0-16.0) g/dL Hct 32.7 L (37-47) % MCV 81.3 (80-100) fL MCH 28.1 (25-34) pg MCHC 34.6 (32-36) g/dL RDW Std Deviation 40.9 (36.4-46.3) fL RDW Coeff of Alysa 13.5 (11.5-14.5) % Plt Count 267 (130-400) K/uL MPV 10.8 H (7.4-10.4) fL Immature Gran % (Auto) 0.2 % Neut % (Auto) 60.2 % Lymph % (Auto) 25.9 % Haralson % (Auto) 10.8 % Eos % (Auto) 2.7 % Baso % (Auto) 0.2 % Neut # (Auto) 3.75 (1.4-6.5) K/uL Lymph # (Auto) 1.61 (1.2-3.4) K/uL Haralson # (Auto) 0.67 H (0.11-0.59) K/uL Eos # (Auto) 0.17 (0-0.5) K/uL Baso # (Auto) 0.01 (0-0.2) K/uL Immature Gran # (Auto) 0.01 (0.00-0.02) K/uL ESR 44 H (0-30) mm/hr PT (9.0-12.0) Seconds INR (0.9-1.1) Sodium (136-145) mmol/L Potassium (3.5-5.1) mmol/L Chloride (98-107) mmol/L Carbon Dioxide (21-32) mmol/L Anion Gap (3-11) BUN (7-18) mg/dl Creatinine (0.6-1.2) mg/dl Est Cr Clr Drug Dosing ml/min Est GFR ( Amer) ml/min Est GFR (Non-Af Amer) ml/min BUN/Creatinine Ratio (10-20) Glucose (70-99) mg/dl POC Glucose (70-99) mg/dl Osmolality (280-300) mOsm/kg Uric Acid (2.6-7.2) mg/dl Calcium (8.5-10.1) mg/dl Magnesium (1.8-2.4) mg/dl Total Bilirubin (0.2-1) mg/dl AST (15-37) U/L ALT (12-78) U/L Alkaline Phosphatase (45-117) U/L C-Reactive Protein (0-0.29) mg/dl Total Protein (6.4-8.2) gm/dl Albumin (3.4-5.0) gm/dl Globulin (2.5-4.0) gm/dl Albumin/Globulin Ratio (0.9-2) TSH (0.300-4.500) uIu/ml Ur Specific Allen 1.010 (1.000-1.030) Urine Osmolality (500-800) mOsm/kg Ur Random Creatinine mg/dl Ur Random Urea Nitrogn mg/dl COVID-19 Eval Order SARS-CoV-2 (PCR) (Negative) 12/27/20 12/27/20 12/27/20 Range/Units 06:15 06:15 08:31 WBC (4.8-10.8) K/uL RBC (4.2-5.4) M/uL Hgb (12.0-16.0) g/dL Hct (37-47) % MCV (80-100) fL MCH (25-34) pg MCHC (32-36) g/dL RDW Std Deviation (36.4-46.3) fL RDW Coeff of Alysa (11.5-14.5) % Plt Count (130-400) K/uL MPV (7.4-10.4) fL Immature Gran % (Auto) % Neut % (Auto) % Lymph % (Auto) % Haralson % (Auto) % Eos % (Auto) % Baso % (Auto) % Neut # (Auto) (1.4-6.5) K/uL Lymph # (Auto) (1.2-3.4) K/uL Haralson # (Auto) (0.11-0.59) K/uL Eos # (Auto) (0-0.5) K/uL Baso # (Auto) (0-0.2) K/uL Immature Gran # (Auto) (0.00-0.02) K/uL ESR (0-30) mm/hr PT (9.0-12.0) Seconds INR (0.9-1.1) Sodium 129 L (136-145) mmol/L Potassium 3.8 D (3.5-5.1) mmol/L Chloride 98 (98-107) mmol/L Carbon Dioxide 24 (21-32) mmol/L Anion Gap 7.0 (3-11) BUN 25 H (7-18) mg/dl Creatinine 0.91 (0.6-1.2) mg/dl Est Cr Clr Drug Dosing 49.5 ml/min Est GFR ( Amer) 70.0 ml/min Est GFR (Non-Af Amer) 60.4 ml/min BUN/Creatinine Ratio 27.6 H (10-20) Glucose 121 H (70-99) mg/dl POC Glucose 142 H (70-99) mg/dl Osmolality (280-300) mOsm/kg Uric Acid 5.6 (2.6-7.2) mg/dl Calcium 8.6 (8.5-10.1) mg/dl Magnesium 1.9 (1.8-2.4) mg/dl Total Bilirubin (0.2-1) mg/dl AST (15-37) U/L ALT (12-78) U/L Alkaline Phosphatase (45-117) U/L C-Reactive Protein 5.49 H (0-0.29) mg/dl Total Protein (6.4-8.2) gm/dl Albumin (3.4-5.0) gm/dl Globulin (2.5-4.0) gm/dl Albumin/Globulin Ratio (0.9-2) TSH (0.300-4.500) uIu/ml Ur Specific Allen (1.000-1.030) Urine Osmolality (500-800) mOsm/kg Ur Random Creatinine mg/dl Ur Random Urea Nitrogn mg/dl COVID-19 Eval Order SARS-CoV-2 (PCR) (Negative) 12/27/20 Range/Units 12:03 WBC (4.8-10.8) K/uL RBC (4.2-5.4) M/uL Hgb (12.0-16.0) g/dL Hct (37-47) % MCV (80-100) fL MCH (25-34) pg MCHC (32-36) g/dL RDW Std Deviation (36.4-46.3) fL RDW Coeff of Alysa (11.5-14.5) % Plt Count (130-400) K/uL MPV (7.4-10.4) fL Immature Gran % (Auto) % Neut % (Auto) % Lymph % (Auto) % Haralson % (Auto) % Eos % (Auto) % Baso % (Auto) % Neut # (Auto) (1.4-6.5) K/uL Lymph # (Auto) (1.2-3.4) K/uL Haralson # (Auto) (0.11-0.59) K/uL Eos # (Auto) (0-0.5) K/uL Baso # (Auto) (0-0.2) K/uL Immature Gran # (Auto) (0.00-0.02) K/uL ESR (0-30) mm/hr PT (9.0-12.0) Seconds INR (0.9-1.1) Sodium (136-145) mmol/L Potassium (3.5-5.1) mmol/L Chloride (98-107) mmol/L Carbon Dioxide (21-32) mmol/L Anion Gap (3-11) BUN (7-18) mg/dl Creatinine (0.6-1.2) mg/dl Est Cr Clr Drug Dosing ml/min Est GFR ( Amer) ml/min Est GFR (Non-Af Amer) ml/min BUN/Creatinine Ratio (10-20) Glucose (70-99) mg/dl POC Glucose 161 H (70-99) mg/dl Osmolality (280-300) mOsm/kg Uric Acid (2.6-7.2) mg/dl Calcium (8.5-10.1) mg/dl Magnesium (1.8-2.4) mg/dl Total Bilirubin (0.2-1) mg/dl AST (15-37) U/L ALT (12-78) U/L Alkaline Phosphatase (45-117) U/L C-Reactive Protein (0-0.29) mg/dl Total Protein (6.4-8.2) gm/dl Albumin (3.4-5.0) gm/dl Globulin (2.5-4.0) gm/dl Albumin/Globulin Ratio (0.9-2) TSH (0.300-4.500) uIu/ml Ur Specific Allen (1.000-1.030) Urine Osmolality (500-800) mOsm/kg Ur Random Creatinine mg/dl Ur Random Urea Nitrogn mg/dl COVID-19 Eval Order SARS-CoV-2 (PCR) (Negative) Diagnostic Findings Laboratory Results WBC 6.22 K/uL (4.8-10.8) 12/27/20 06:15 RBC 4.02 M/uL (4.2-5.4) L 12/27/20 06:15 Hgb 11.3 g/dL (12.0-16.0) L 12/27/20 06:15 Hct 32.7 % (37-47) L 12/27/20 06:15 MCV 81.3 fL (80-100) 12/27/20 06:15 MCH 28.1 pg (25-34) 12/27/20 06:15 MCHC 34.6 g/dL (32-36) 12/27/20 06:15 RDW Std Deviation 40.9 fL (36.4-46.3) 12/27/20 06:15 RDW Coeff of Alysa 13.5 % (11.5-14.5) 12/27/20 06:15 Plt Count 267 K/uL (130-400) 12/27/20 06:15 MPV 10.8 fL (7.4-10.4) H 12/27/20 06:15 Immature Gran % (Auto) 0.2 % 12/27/20 06:15 Neut % (Auto) 60.2 % 12/27/20 06:15 Lymph % (Auto) 25.9 % 12/27/20 06:15 Haralson % (Auto) 10.8 % 12/27/20 06:15 Eos % (Auto) 2.7 % 12/27/20 06:15 Baso % (Auto) 0.2 % 12/27/20 06:15 Neut # (Auto) 3.75 K/uL (1.4-6.5) 12/27/20 06:15 Lymph # (Auto) 1.61 K/uL (1.2-3.4) 12/27/20 06:15 Haralson # (Auto) 0.67 K/uL (0.11-0.59) H 12/27/20 06:15 Eos # (Auto) 0.17 K/uL (0-0.5) 12/27/20 06:15 Baso # (Auto) 0.01 K/uL (0-0.2) 12/27/20 06:15 Immature Gran # (Auto) 0.01 K/uL (0.00-0.02) 12/27/20 06:15 ESR 44 mm/hr (0-30) H 12/27/20 06:15 PT 10.5 Seconds (9.0-12.0) 12/26/20 19:42 INR 1.0 (0.9-1.1) 12/26/20 19:42 Sodium 129 mmol/L (136-145) L 12/27/20 06:15 Potassium 3.8 mmol/L (3.5-5.1) D 12/27/20 06:15 Chloride 98 mmol/L (98-107) 12/27/20 06:15 Carbon Dioxide 24 mmol/L (21-32) 12/27/20 06:15 Anion Gap 7.0 (3-11) 12/27/20 06:15 BUN 25 mg/dl (7-18) H 12/27/20 06:15 Creatinine 0.91 mg/dl (0.6-1.2) 12/27/20 06:15 Est Cr Clr Drug Dosing 49.5 ml/min 12/27/20 06:15 Est GFR ( Amer) 70.0 ml/min 12/27/20 06:15 Est GFR (Non-Af Amer) 60.4 ml/min 12/27/20 06:15 BUN/Creatinine Ratio 27.6 (10-20) H 12/27/20 06:15 Glucose 121 mg/dl (70-99) H 12/27/20 06:15 POC Glucose 161 mg/dl (70-99) H 12/27/20 12:03 Osmolality 269 mOsm/kg (280-300) L 12/26/20 21:26 Uric Acid 5.6 mg/dl (2.6-7.2) 12/27/20 06:15 Calcium 8.6 mg/dl (8.5-10.1) 12/27/20 06:15 Magnesium 1.9 mg/dl (1.8-2.4) 12/27/20 06:15 Total Bilirubin 0.5 mg/dl (0.2-1) 12/26/20 19:42 AST 13 U/L (15-37) L 12/26/20 19:42 ALT 25 U/L (12-78) 12/26/20 19:42 Alkaline Phosphatase 89 U/L (45-117) 12/26/20 19:42 C-Reactive Protein 5.49 mg/dl (0-0.29) H 12/27/20 06:15 Total Protein 7.5 gm/dl (6.4-8.2) 12/26/20 19:42 Albumin 3.6 gm/dl (3.4-5.0) 12/26/20 19:42 Globulin 3.9 gm/dl (2.5-4.0) 12/26/20 19:42 Albumin/Globulin Ratio 0.9 (0.9-2) 12/26/20 19:42 TSH 1.900 uIu/ml (0.300-4.500) 12/26/20 19:42 Ur Specific Allen 1.010 (1.000-1.030) 12/26/20 21:30 Urine Osmolality 290 mOsm/kg (500-800) L 12/26/20 21:30 Ur Random Creatinine 35.4 mg/dl 12/26/20 21:30 Ur Random Urea Nitrogn 386 mg/dl 12/26/20 21:30 COVID-19 Eval Order Covid19 at [facility] 12/26/20 20:00 SARS-CoV-2 (PCR) NEGATIVE (Negative) 12/26/20 20:00 Impressions Ankle X-Ray 12/26/20 21:42 XR ankle RT min 3V routine HISTORY: 80 years-old Female hardware with ovelying cellulits acute pain of the right foot and ankle COMPARISON: Right foot radiographs 12/26/2020 TECHNIQUE: 3 views of the right ankle FINDINGS: Demineralized appearance the bones. Lateral plate and screw fusion of the distal fibula. There are 2 cannulated screws of the medial malleolus. No evidence of hardware fracture or loosening. Mild tibiotalar, subtalar and midfoot osteoarthritis. Small Achilles enthesophyte of the calcaneus. No acute fracture, dislocation, osseous erosion or osteochondral defect. There is mild circumferential soft tissue swelling of the ankle. IMPRESSION: 1. Soft tissue swelling without acute fracture. 2. ORIF changes of the ankle. No evidence of hardware complication. ACT 112: Negative or not required by law. The above report was generated using voice recognition software. It may contain grammatical, syntax or spelling errors. Electronically signed by: Abraham Solis M.D. 12/27/2020 7:03 AM
[2020-12-27] MEDS: VANCOMYCIN HCL 1,000 MG in SODIUM CHLORIDE 0.9% 250 ML IV SCH (16:23)
[2020-12-27] MEDS: ASPIRIN 81 MG ECTAB PO SCH (21:03)
[2020-12-28] MEDS: VANCOMYCIN HCL 1,000 MG in SODIUM CHLORIDE 0.9% 250 ML IV SCH (04:12)
[2020-12-28] MEDS: POLYETHYLENE (MIRALAX) 17 GM PACK PO PRN (04:12)
[2020-12-28] MEDS: PIPERACILLIN/TAZOBACTAM 3.375 GM in DEXTROSE 5% 100 ML IV SCH (06:16)
[2020-12-28 08:27] LABS: Basophils # (auto) 0.02 K/uL (0-0.2); Basophils % (auto) 0.4 %; Eosinophils # (auto) 0.26 K/uL (0-0.5); Eosinophils % (auto) 5.2 %; Hematocrit (blood only) 33.1 % (37-47); Hemoglobin 11.6 g/dL (12.0-16.0); Immature Granulocytes # (auto) 0.01 K/uL (0.00-0.02); Immature Granulocytes % (auto) 0.2 %; Lymphocytes # (auto) 1.32 K/uL (1.2-3.4); Lymphocytes % (auto) 26.6 %; Mean Corpuscular Hemoglobin 28.7 pg (25-34); Mean Corpuscular Volume 81.9 fL (80-100); Mean Platelet Volume 10.6 fL (7.4-10.4); Monocytes # (auto) 0.43 K/uL (0.11-0.59); Monocytes % (auto) 8.7 %; Neutrophils # (auto) 2.92 K/uL (1.4-6.5); Neutrophils % (auto) 58.9 %; Platelet Count 262 K/uL (130-400); RDW Coefficient of Variation 13.4 % (11.5-14.5); RDW Standard Deviation 40.8 fL (36.4-46.3); Red Blood Count 4.04 M/uL (4.2-5.4); White Blood Count 4.96 K/uL (4.8-10.8)
--- NOTE | 2020-12-28 08:33 | Hospitalist Progress Note ---
Date of Service December 28, 2020 Assessment & Plan (1) Cellulitis: Plan: IMPROVING Involving the right ankle and possible of right toe Vanco/Zosyn --> de-escalated to Keflex/Bactrim today -- would complete 10 day course. If worsens, may need to consider coverage for pseudomonas but no hx Involving the right ankle and possible of right toe ESR and CRP improving Xray of RIGHT ankle: soft tissue swelling without acute fracture. ORIF changes to ankle without evidence of hardware complications WBC wnl, afebrile Continue to monitor Patient seen by Dr Lieberman in clinic and sent to ER --> pt with PAD and known iliac blockage and needs vascular procedure. Shreya's office knows and they spoke with vascular surgeon at [place] and they stated they wanted her on abx to help infection and hoping to hold off until Dr Cash returns so she can have vascular procedure. Abn ABIs at office. Ortho covering while inpatient. --> No signs of osteomyelitis. No surgical indication for hardware removal. (2) Hypertension: Plan: CAD/HTN/HLD Very poorly controlled as outpatient -- has been labile with lower reading this morning and her morning carvedilol was held for low HR as well Recent discontinuation of HCTZ by Dr Mcpherson in December 20 Recent ECHO EF 70% with normal LV size with type II diastolic dysfunction (11/28) Continued on her usual ASA 81mg, atorvastatin 10mg, amlodipine 5mg, clonidine 0.1mg BID, carvedilol 25mg (held as mentioned), lisinopril 40mg daily, hydralazine 20mg BID Continue to monitor -- stable (3) Hyperlipemia: Plan: No acute needs (4) Type 2 diabetes mellitus with diabetic neuropathy, unspecified: Plan: Most recent A1c in our system 7.04 Oct 2019 Repeat A1c up to 8.2 Home metformin 1000mg BID, glimepiride 4mg BID held (may need additional oral agent at d/c) ISS while inpatient Changed to aspart sliding scale- CF 30 with ratio 1:15 BSGs acceptable Continue to monitor (5) 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: Plan: No acute drainage, cover daily already shaved down- not infected looking (6) PAD (peripheral artery disease): Plan: See report as per HPI - Follows at [facility] -- see above. Needs vascular intervention but attempting to wait until Dr Cash back in [facility] - evaluation when cellulitis is cleared (7) Hyponatremia: Plan: Chronic patient recently had HCTZ stopped- likely related to water > solute intake and diuretic use - Serum osmo 269, urine osmol 290, urine spec gravity pending Patient on diuretic urine sodium not sent - free water restrict - Follow in morning- HCTZ held (discontinued as above), will be getting Zosyn q8 - TSH wnl - Patient does also endorse no salt in diet - Normal renal function - K normal Na improved to 130 today, asymptomatic Continue to monitor Plan: Continued inpatient stay -- monitoring on oral abx and possible d/c tomorrow Admission and Anticipated Discharge Date Admission Date: December 26, 2020 Subjective Patient evaluated this morning. Feeling better. Pain improved. Redness present to medial aspect but improving. Calloused area to great toe with "tenderness". She is wondering about continuing daily betadine as rec'd by Dr Lieberman. Will have wound RN consult for further recs. No fever, chills, chest pain, shortness of breath, abdominal pain, nausea, v omiting at this time. Discussed switching to oral antibiotics for today and monitor response to ensure these will be appropriate for discharge. Review of Systems Review of Systems: All systems reviewed & are unremarkable except as noted in HPI & below Physical Exam Physical Exam: PHYSICAL EXAM: General: awake, alert, no apparent distress, laying in bed resting comfortably Head: Normocephalic, atraumatic ENT: PERRL, EOMI, no pharyngeal exudate, mucous membranes moist Neuro: AAO x 3, speech clear and appropriate, strength intact bilaterally 5/5, sensation intact and equal all extremities and dermatomes, no pronator drift Chest: equal rise and fall of the chest, no accessory muscle use, no heaves or thrills, Clear to auscultation, on room air, Cardiac: Regular rate and rhythm, telemetry reviewed, skin warm dry, cap refill <3 seconds, peripheral pulses +2 no JVD, no murmur, no edema GI: NABS x 4 quadrants, soft, nontender to palpation, no rebound, guarding or tenderness : Spontaneously voiding, no pain, no CVA tenderness, Extremities: circumferential erythema to right ankle tracking cephalad, right metatarsal erythema and warmth (decreased), minimally tender to medial ankle, no drainage calfs nontender to palpation. treated callous to R great toe with bandaid and dressing c/d/i (area of 2x2cm ulceration with central maceration and surrounding excoriated skin present. minimally tender to palpation but without drainage noted) sensation to light touch decreased to digits 2-5 Psych: Normal mood and affect Results & Data Results & Data ([facility]) Vital Signs (Past 12 Hours) Vital Signs Temp Pulse Resp BP BP Pulse Ox 12/27/20 22:06 36.8 C 52 L 16 171/66 H 94 12/27/20 21:00 60 201/80 H 199/68 H 96 Laboratory Results 12/28/20 12/28/20 12/28/20 Range/Units 11:54 08:29 07:50 WBC (4.8-10.8) K/uL RBC (4.2-5.4) M/uL Hgb (12.0-16.0) g/dL Hct (37-47) % MCV (80-100) fL MCH (25-34) pg MCHC (32-36) g/dL RDW Std Deviation (36.4-46.3) fL RDW Coeff of Alysa (11.5-14.5) % Plt Count (130-400) K/uL MPV (7.4-10.4) fL Immature Gran % (Auto) % Neut % (Auto) % Lymph % (Auto) % [place] % (Auto) % Eos % (Auto) % Baso % (Auto) % Neut # (Auto) (1.4-6.5) K/uL Lymph # (Auto) (1.2-3.4) K/uL [place] # (Auto) (0.11-0.59) K/uL Eos # (Auto) (0-0.5) K/uL Baso # (Auto) (0-0.2) K/uL Immature Gran # (Auto) (0.00-0.02) K/uL Sodium (136-145) mmol/L Potassium (3.5-5.1) mmol/L Chloride (98-107) mmol/L Carbon Dioxide (21-32) mmol/L Anion Gap (3-11) BUN (7-18) mg/dl Creatinine (0.6-1.2) mg/dl Est Cr Clr Drug Dosing ml/min Est GFR ( Amer) ml/min Est GFR (Non-Af Amer) ml/min BUN/Creatinine Ratio (10-20) Glucose (70-99) mg/dl POC Glucose 172 H 155 H (70-99) mg/dl Estimat Average Glucose 189 mg/dl Hemoglobin A1c 8.2 H (4.5-5.6) % Calcium (8.5-10.1) mg/dl Magnesium (1.8-2.4) mg/dl 12/28/20 12/28/20 12/27/20 Range/Units 07:50 07:50 20:57 WBC 4.96 (4.8-10.8) K/uL RBC 4.04 L (4.2-5.4) M/uL Hgb 11.6 L (12.0-16.0) g/dL Hct 33.1 L (37-47) % MCV 81.9 (80-100) fL MCH 28.7 (25-34) pg MCHC 35.0 (32-36) g/dL RDW Std Deviation 40.8 (36.4-46.3) fL RDW Coeff of Alysa 13.4 (11.5-14.5) % Plt Count 262 (130-400) K/uL MPV 10.6 H (7.4-10.4) fL Immature Gran % (Auto) 0.2 % Neut % (Auto) 58.9 % Lymph % (Auto) 26.6 % [place] % (Auto) 8.7 % Eos % (Auto) 5.2 % Baso % (Auto) 0.4 % Neut # (Auto) 2.92 (1.4-6.5) K/uL Lymph # (Auto) 1.32 (1.2-3.4) K/uL [place] # (Auto) 0.43 (0.11-0.59) K/uL Eos # (Auto) 0.26 (0-0.5) K/uL Baso # (Auto) 0.02 (0-0.2) K/uL Immature Gran # (Auto) 0.01 (0.00-0.02) K/uL Sodium 130 L (136-145) mmol/L Potassium 4.3 (3.5-5.1) mmol/L Chloride 99 (98-107) mmol/L Carbon Dioxide 24 (21-32) mmol/L Anion Gap 6.0 (3-11) BUN 17 (7-18) mg/dl Creatinine 0.80 (0.6-1.2) mg/dl Est Cr Clr Drug Dosing 56.3 ml/min Est GFR ( Amer) 81.8 ml/min Est GFR (Non-Af Amer) 70.6 ml/min BUN/Creatinine Ratio 20.8 H (10-20) Glucose 148 H (70-99) mg/dl POC Glucose 202 H (70-99) mg/dl Estimat Average Glucose mg/dl Hemoglobin A1c (4.5-5.6) % Calcium 8.5 (8.5-10.1) mg/dl Magnesium 2.0 (1.8-2.4) mg/dl 12/27/20 12/27/20 Range/Units 20:41 17:21 WBC (4.8-10.8) K/uL RBC (4.2-5.4) M/uL Hgb (12.0-16.0) g/dL Hct (37-47) % MCV (80-100) fL MCH (25-34) pg MCHC (32-36) g/dL RDW Std Deviation (36.4-46.3) fL RDW Coeff of Alysa (11.5-14.5) % Plt Count (130-400) K/uL MPV (7.4-10.4) fL Immature Gran % (Auto) % Neut % (Auto) % Lymph % (Auto) % [place] % (Auto) % Eos % (Auto) % Baso % (Auto) % Neut # (Auto) (1.4-6.5) K/uL Lymph # (Auto) (1.2-3.4) K/uL [place] # (Auto) (0.11-0.59) K/uL Eos # (Auto) (0-0.5) K/uL Baso # (Auto) (0-0.2) K/uL Immature Gran # (Auto) (0.00-0.02) K/uL Sodium (136-145) mmol/L Potassium (3.5-5.1) mmol/L Chloride (98-107) mmol/L Carbon Dioxide (21-32) mmol/L Anion Gap (3-11) BUN (7-18) mg/dl Creatinine (0.6-1.2) mg/dl Est Cr Clr Drug Dosing ml/min Est GFR ( Amer) ml/min Est GFR (Non-Af Amer) ml/min BUN/Creatinine Ratio (10-20) Glucose (70-99) mg/dl POC Glucose 216 H 132 H (70-99) mg/dl Estimat Average Glucose mg/dl Hemoglobin A1c (4.5-5.6) % Calcium (8.5-10.1) mg/dl Magnesium (1.8-2.4) mg/dl PG Care Time/CCT Total # of Minutes Spent Total Time Spent with Patient: Total time spent is greater than 50% in coordination of care (as documented) at patient's floor/unit and/or counseling patient: Coding Level of Care Code 45943 Subseq Hosp Care Lvl 2 Diagnoses Cellulitis L03.90 Hypertension I10 Hypertension type: unspecified Hyperlipemia E78.5 Type 2 diabetes mellitus with diabetic neuropathy, unspecified E11.40 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 L97.519 PAD (peripheral artery disease) I73.9 Hyponatremia E87.1 (1) Hypertension Hypertension type: unspecified Qualified Code(s): I10 - Essential (primary) hypertension
[2020-12-28] MEDS: INSULIN ASPART 100 UNITS/ML 3 ML PEN SC SCH ×4 (09:01→20:56)
[2020-12-28] MEDS: carvediloL 25 MG TAB PO SCH ×2 (09:32→20:53)
[2020-12-28 09:34] LABS: BUN Creatinine Ratio 20.8 (10-20); Calcium 8.5 mg/dl (8.5-10.1); Creatinine Clr Calc Pharmacy 56.3 ml/min; Est GFR (African American) 81.8 ml/min; Est GFR (Non-African American) 70.6 ml/min; Potassium 4.3 mmol/L (3.5-5.1)
[2020-12-28] MEDS: lisinopril 40 MG TAB PO SCH (09:35)
[2020-12-28] MEDS: ATORVASTATIN 10 MG TAB PO SCH (09:35)
[2020-12-28] MEDS: hydrALAZINE 10 MG TAB PO SCH ×2 (09:36→20:54)
[2020-12-28] MEDS: cloNIDine HCL 0.1 MG TAB PO SCH ×2 (09:36→20:53)
[2020-12-28] MEDS: amLODIPine BESYLATE 5 MG TAB PO SCH (09:36)
[2020-12-28 10:54] LABS: Estimated Average Glucose 189 mg/dl; Hemoglobin A1C 8.2 % (4.5-5.6)
[2020-12-28] MEDS: cephALEXin 500 MG CAP PO SCH ×3 (13:15→20:53)
[2020-12-28] MEDS: ASPIRIN 81 MG ECTAB PO SCH (20:53)
[2020-12-28] MEDS: ENOXAPARIN INJ 40 MG/0.4 ML SYR SQ SCH (20:54)
[2020-12-28] MEDS: SULFAMETHOXAZOLE/TRIMETHOPRIM DS 800/160MG TAB PO SCH (20:54)
[2020-12-28] MEDS ORDERED: DOCUSATE SODIUM/SENNA 50/8.6MG TAB PO SCH (21:00)
[2020-12-29] MEDS ORDERED: VANCOMYCIN TROUGH ONE (03:30)
--- NOTE | 2020-12-29 08:29 | Hospitalist Progress Note ---
Date of Service December 29, 2020 Assessment & Plan Admission and Anticipated Discharge Date Admission Date: December 26, 2020 Results & Data Results & Data ([facility]) Vital Signs (Past 12 Hours) Vital Signs Temp Pulse Resp BP BP Pulse Ox 12/29/20 07:40 37.0 C 48 L 14 143/63 H 96 12/28/20 23:18 37.2 C 51 L 16 133/55 L 94 12/28/20 20:50 37.4 C 58 L 22 197/73 H 96 Laboratory Results 12/28/20 12/28/20 12/28/20 Range/Units 20:11 17:12 11:54 Sodium (136-145) mmol/L Potassium (3.5-5.1) mmol/L Chloride (98-107) mmol/L Carbon Dioxide (21-32) mmol/L Anion Gap (3-11) BUN (7-18) mg/dl Creatinine (0.6-1.2) mg/dl Est Cr Clr Drug Dosing ml/min Est GFR ( Amer) ml/min Est GFR (Non-Af Amer) ml/min BUN/Creatinine Ratio (10-20) Glucose (70-99) mg/dl POC Glucose 181 H 110 H 172 H (70-99) mg/dl Estimat Average Glucose mg/dl Hemoglobin A1c (4.5-5.6) % Calcium (8.5-10.1) mg/dl Magnesium (1.8-2.4) mg/dl 12/28/20 12/28/20 12/28/20 Range/Units 08:29 07:50 07:50 Sodium 130 L (136-145) mmol/L Potassium 4.3 (3.5-5.1) mmol/L Chloride 99 (98-107) mmol/L Carbon Dioxide 24 (21-32) mmol/L Anion Gap 6.0 (3-11) BUN 17 (7-18) mg/dl Creatinine 0.80 (0.6-1.2) mg/dl Est Cr Clr Drug Dosing 56.3 ml/min Est GFR ( Amer) 81.8 ml/min Est GFR (Non-Af Amer) 70.6 ml/min BUN/Creatinine Ratio 20.8 H (10-20) Glucose 148 H (70-99) mg/dl POC Glucose 155 H (70-99) mg/dl Estimat Average Glucose 189 mg/dl Hemoglobin A1c 8.2 H (4.5-5.6) % Calcium 8.5 (8.5-10.1) mg/dl Magnesium 2.0 (1.8-2.4) mg/dl PG Care Time/CCT Total # of Minutes Spent Total Time Spent with Patient: Total time spent is greater than 50% in coordination of care (as documented) at patient's floor/unit and/or counseling patient: Coding
[2020-12-29 09:05] LABS: Basophils # (auto) 0.02 K/uL (0-0.2); Basophils % (auto) 0.3 %; Eosinophils # (auto) 0.29 K/uL (0-0.5); Eosinophils % (auto) 4.6 %; Hematocrit (blood only) 37.7 % (37-47); Hemoglobin 13.2 g/dL (12.0-16.0); Immature Granulocytes # (auto) 0.01 K/uL (0.00-0.02); Immature Granulocytes % (auto) 0.2 %; Lymphocytes # (auto) 1.39 K/uL (1.2-3.4); Lymphocytes % (auto) 22.1 %; Mean Corpuscular Hemoglobin 28.8 pg (25-34); Mean Corpuscular Volume 82.3 fL (80-100); Mean Platelet Volume 10.6 fL (7.4-10.4); Monocytes # (auto) 0.58 K/uL (0.11-0.59); Monocytes % (auto) 9.2 %; Neutrophils % (auto) 63.6 %; Platelet Count 349 K/uL (130-400); RDW Coefficient of Variation 13.4 % (11.5-14.5); RDW Standard Deviation 40.4 fL (36.4-46.3); Red Blood Count 4.58 M/uL (4.2-5.4); White Blood Count 6.29 K/uL (4.8-10.8)
[2020-12-29] MEDS: carvediloL 25 MG TAB PO SCH (09:17)
[2020-12-29] MEDS: cephALEXin 500 MG CAP PO SCH (09:22)
[2020-12-29] MEDS: lisinopril 40 MG TAB PO SCH (09:22)
[2020-12-29] MEDS: ATORVASTATIN 10 MG TAB PO SCH (09:22)
[2020-12-29] MEDS: cloNIDine HCL 0.1 MG TAB PO SCH (09:22)
[2020-12-29] MEDS: SULFAMETHOXAZOLE/TRIMETHOPRIM DS 800/160MG TAB PO SCH (09:22)
[2020-12-29] MEDS: hydrALAZINE 10 MG TAB PO SCH (09:22)
[2020-12-29] MEDS: INSULIN ASPART 100 UNITS/ML 3 ML PEN SC SCH ×2 (09:28→13:41)
[2020-12-29 09:38] LABS: BUN Creatinine Ratio 19.6 (10-20); Calcium 9.2 mg/dl (8.5-10.1); Creatinine Clr Calc Pharmacy 44.6 ml/min; Est GFR (African American) 61.7 ml/min; Est GFR (Non-African American) 53.3 ml/min; Magnesium 2.1 mg/dl (1.8-2.4); Potassium 4.5 mmol/L (3.5-5.1)
[2020-12-29 09:40] LABS: C Reactive Protein 1.18 mg/dl (0-0.29)
[2020-12-29] MEDS: amLODIPine BESYLATE 5 MG TAB PO SCH (11:09)
--- NOTE | 2020-12-29 12:03 | Discharge Summary ---
Date of Service December 29, 2020 Admission HPI Per Admitting Provider 80 YOF with past medical history of : DMII, HTN, HLD, PAD, Broken right ankle with hardware. Patient came to the EMD today for evaluation of right lower extremity cellulitis. Patient states that she has noticed redness about 2-3 days ago that has gotten progressively more red at her ankle. 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 [place]. She was prescribed Keflex as outpatient and took one dose of this today. She has a right toe callous that was shaved down and is covered with gauze and coban with some redness noted at the metatarsal of the great toe. She denies any pain or drainage, there is no other open area noted. She denies fevers or chills. Patient will be admitted for IV antibiotics with Zosyn and Vancomycin, follow biomarkers and Xray of the ankle is pending. Of note her arterial study today should be on her hard chart, but reveled a RT ELIO of 0.5, Lt ELIO 0.98, no digital pressure of the right toe recorded secondary to toe dressing. 50-74% stenosis of the popliteal. Routine labs also reveal hyponatremia, patient on HCTZ as outpatient. Patient has gotten her COVID vaccine and is COVID negative on admission. Admission Exam Per Admitting Provider PHYSICAL EXAM: General: awake, alert, no apparent distress Head: Normocephalic, atraumatic ENT: PERRL, EOMI, no pharyngeal exudate, mucous membranes moist Neuro: AAO x 3, speech clear and appropriate, strength intact bilaterally 5/5, sensation intact and equal all extremities and dermatomes, no pronator drift Chest: equal rise and fall of the chest, no accessory muscle use, no heaves or thrills, Clear to auscultation, on room air, Cardiac: Regular rate and rhythm, telemetry reviewed, skin warm dry, cap refill <3 seconds, peripheral pulses +2 no JVD, no murmur, no edema GI: NABS x 4 quadrants, soft, nontender to palpation, no rebound, guarding or tenderness : Spontaneously voiding, no pain, no CVA tenderness, Extremities: circumferential erythema to right ankle tracking cephalad, right metatarsal erythema and warmth, non painful, no drainage calfs nontender to palpation Psych: Normal mood and affect Principal Diagnosis Cellulitis Discharge Exam PHYSICAL EXAM: General: awake, alert, no apparent distress, laying in bed resting comfortably Head: Normocephalic, atraumatic ENT: PERRL, EOMI, no pharyngeal exudate, mucous membranes moist Neuro: AAO x 3, speech clear and appropriate, strength intact bilaterally 5/5, sensation intact and equal all extremities and dermatomes, no pronator drift Chest: equal rise and fall of the chest, no accessory muscle use, no heaves or thrills, Clear to auscultation, on room air, Cardiac: Regular rate and rhythm, telemetry reviewed, skin warm dry, cap refill <3 seconds, peripheral pulses palpable, no JVD, no murmur, no edema GI: NABS x 4 quadrants, soft, nontender to palpation, no rebound, guarding or tenderness : Spontaneously voiding, no pain, no CVA tenderness, Extremities: circumferential erythema to right ankle tracking cephalad (resolved) right metatarsal erythema and warmth (almost resolved), minimally tender to medial ankle (none reported today), no drainage calfs nontender to palpation. treated callous to R great toe with bandaid and dressing c/d/i (area of 2x2cm ulceration with central maceration and surrounding excoriated skin present. minimally tender to palpation but without drainage noted) sensation to light touch decreased to digits 2-5 Psych: Normal mood and affect Discharge Data Allergies Allergy/AdvReac Type Severity Reaction Status Date / Time metoprolol Allergy Severe VOMIT,DIARR Unverified 12/26/20 20:43 HEA amlodipine AdvReac Intermediate ELEVATED BP Verified 12/26/20 20:43 fenofibrate AdvReac Intermediate INCREASED Verified 12/26/20 20:43 URINATION verapamil AdvReac Intermediate INCREASED Verified 12/26/20 20:43 URINATION Consultations 12/26/20 21:21 ED Decision to Admit Stat 12/27/20 11:49 Consult Podiatry Routine Ordered Studies Ankle X-Ray 12/26/20 21:42 XR ankle RT min 3V routine HISTORY: 80 years-old Female hardware with ovelying cellulits acute pain of the right foot and ankle COMPARISON: Right foot radiographs 12/26/2020 TECHNIQUE: 3 views of the right ankle FINDINGS: Demineralized appearance the bones. Lateral plate and screw fusion of the distal fibula. There are 2 cannulated screws of the medial malleolus. No evidence of hardware fracture or loosening. Mild tibiotalar, subtalar and midfoot osteoarthritis. Small Achilles enthesophyte of the calcaneus. No acute fracture, dislocation, osseous erosion or osteochondral defect. There is mild circumferential soft tissue swelling of the ankle. IMPRESSION: 1. Soft tissue swelling without acute fracture. 2. ORIF changes of the ankle. No evidence of hardware complication. ACT 112: Negative or not required by law. The above report was generated using voice recognition software. It may contain grammatical, syntax or spelling errors. Electronically signed by: Abraham Solis M.D. 12/27/2020 7:03 AM Hospital Course (1) Cellulitis: IMPROVING --> almost resolved Involving the right ankle and possible of right toe Vanco/Zosyn --> de-escalated to Keflex/Bactrim 12/28 and almost completely resolved -- complete 10 day course. If worsens, may need to consider coverage for pseudomonas but no hx Involving the right ankle and possible of right toe ESR and CRP improving Xray of RIGHT ankle: soft tissue swelling without acute fracture. ORIF changes to ankle without evidence of hardware complications WBC wnl, afebrile Continue to monitor Patient seen by Dr Fortune in clinic and sent to ER --> pt with PAD and known iliac blockage and needs vascular procedure. Shreya's office knows and they spoke with vascular surgeon at [place] and they stated they wanted her on abx to help infection and hoping to hold off until Dr Cash returns so she can have vascular procedure. Abn ABIs at office. Ortho covering while inpatient. --> No signs of osteomyelitis. No surgical indication for hardware removal. Messaged PCP Dr Torres about hospitalization for transition of care and recs given for ulcer to R great toe and about tx for her cellulitis and follow up with [facility] in upcoming weeks (2) Hypertension: CAD/HTN/HLD Very poorly controlled as outpatient -- has been labile with lower reading this morning and her morning carvedilol was held for low HR as well Recent discontinuation of HCTZ by Dr Mcpherson in December 20 -- removed from med rec Recent ECHO EF 70% with normal LV size with type II diastolic dysfunction (11/28) Continued on her usual ASA 81mg, atorvastatin 10mg, amlodipine 5mg, clonidine 0.1mg BID, carvedilol 25mg , lisinopril 40mg daily, hydralazine 20mg BID Continue to monitor -- stable (3) Hyperlipemia: No acute needs (4) Type 2 diabetes mellitus with diabetic neuropathy, unspecified: Most recent A1c in our system 7.04 Oct 2019 Repeat A1c up to 8.2 Home metformin 1000mg BID, glimepiride 4mg BID held (may need additional oral agent at d/c) ISS while inpatient Changed to aspart sliding scale- CF 30 with ratio 1:15 BSGs acceptable Need f/u with PCP about possible addition of pioglitazone vs other. 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 To keep dry F/u with podiatry as previously following (6) PAD (peripheral artery disease): See report as per HPI - Follows at [facility] -- see above. Needs vascular intervention but attempting to wait until Dr Cash back in [facility] Already has f/u scheduled with Shreya when back in [facility] (7) Hyponatremia: Chronic patient recently had HCTZ stopped- likely related to water > solute intake and diuretic use - Serum osmo 269, urine osmol 290, urine spec gravity pending Patient on diuretic urine sodium not sent - free water restrict - Follow in morning- HCTZ held (discontinued as above) - TSH wnl - Patient does also endorse no salt in diet -- encouraged minimal intake hypotonic - Normal renal function - K normal Remained asymptomatic F/u PCP No longer on HCTZ d/c'd by Dr. Mcpherson earlier previous week Total Time Total Time Spent Total Time Spent (In Minutes): 60 Discharge Plan Discharge Items Patient Disposition: Home - Self-Care Reason For Visit: CELLULITIS Discharge Diagnosis: Cellulitis Goals: You have been hospitalized for an acute medical problem. During your stay at [facility], we have made an effort to correct the problem that brought you to the hospital while keeping you as comfortable as possible. Medications were used to bring your condition under control and your discharge instructions will include directions for any medications you should take after leaving the hospital. Please make sure you see your Primary Care Provider as part of your follow up plan. Activity: Resume your previous activity Non-emergency contact: Primary Care Provider, Surgeon and Specialist Call non-emergency contact if: you have any medication questions, your symptoms worsen, your pain is not controlled and you have a fever Follow-up/Referrals: Mal Torres MD [Primary Care Provider] - 01/04/21 9:50 am (Appointment will be with at [address] [place] [address]) Georgiana Fortune DPM [Physician] - 01/09/21 11:15 am Khai Cash MD [Physician] - 01/29/21 2:15 pm Diet: Carb Consistent or DM2 and Heart Healthy Addtl Attending Provider Instructions: You have been hospitalized for cellulitis. It has been treated with IV antibiotics and you were transitioned to dual antibiotic coverage to cover for staph/strep. These will be continued as follows: * Bactrim -- 1 tablet by mouth twice daily. You have SEVEN DAYS left of this antibiotic to complete a total 10 day course. TAKE THIS WHOLE PRESCRIPTION * Keflex -- 1 tablet by mouth four times daily, but this will be 250mg tablets as you are also on Bactrim to prevent kidney damage-->You already have this prescription from Dr Fortune and you should continue this for another SEVEN DAYS as well (28 tablets) but a new prescription has been sent as the dose has been decreased as stated. Consider over the counter probiotic to help with diarrhea if this occurs. If diarrhea significant, contact your PCP about testing for infection in your stool. You will need to continue to monitor your infection. If any increased redness/spreading, fevers occur, darkened urine, cramping you will need to contact your PCP or return to the emergency department sooner. You have been seen by wound care for your big toe to decide on best dressings --> you have been given supplies in the form of aquacell and bandages and it is recommended to use the aquacell (cut into [place] to cover opening of wound) which has silver in it and is antimicrobial. Please keep area dry and change dressing when showering or if it becomes wet. The goal is to keep this dry. You will need to follow up with Dr. Fortune and Dr. Cash to coordinate your re-vascularization to supply blood supply, but as discussed with Dr Fortune and vacular providers while Dr. Cash is out of town, it is recommended to treat the current infection to completion before that will be done. Please follow up with your PCP in next the next week to monitor your progress. It has been a pleasure being a part of the medical team providing for you while you have been int [facility]. Take care! Pending Studies at Discharge: No Stand-Alone Forms: My [facility] Medications and DC Order Prescriptions: New sulfamethoxazole-trimethoprim [Bactrim DS] 800-160 mg Tablet 1 tab PO Q12 7 Days Qty: 15 RF: 0 cephalexin 250 mg Capsule 250 mg PO QID 7 Days Qty: 28 RF: 0 Continued hydralazine 10 mg tablet 20 mg PO BID RF: 0 carvedilol 25 mg tablet 25 mg PO BID RF: 0 clonidine HCl 0.1 mg tablet 0.1 mg PO BID RF: 0 atorvastatin 10 mg tablet 10 mg PO QAM RF: 0 aspirin 81 mg Tablet,Delayed Release (Dr/Ec) 81 mg PO HS RF: 0 glimepiride 4 mg tablet 4 mg PO BID RF: 0 metformin 500 mg tablet extended release 24 hr 1,000 mg PO BIDM RF: 0 cholecalciferol (vitamin D3) [Vitamin D3] 25 mcg (1,000 unit) Capsule 0 mcg PO QAM RF: 0 potassium chloride 10 mEq Tablet Extended Release 10 meq PO DAILY PRN (Reason: Cramps) RF: 0 amlodipine [Norvasc] 5 mg tablet 5 mg PO QAM RF: 0 lisinopril [Zestril] 40 mg tablet 40 mg PO QAM RF: 0 coenzyme Q10 [CoQ-10] 100 mg Capsule 100 mg PO QAM RF: 0 [place] 3-6-9 1,200 mg Capsule 1 cap PO QDD RF: 0 Discharge Orders: Discharge Order (Routine); Ordered 12/29/20 Ordered By: Florence Schaefer/Other Patient Handouts: A1C, Managing Type 2 Diabetes Admission Data Admit Date/Time: 12/26/20 21:44 Attending Provider: Nemo Marshall Admit Provider: Blake Huerta Primary Care Provider: Mal Torres Other Providers: Jeremie Dolan,Raymond K Other Interventions: Discharge Summary Assessment (RN) Last Done: 12/29/20 12:29 Supervising Physician Co-Signing Physician Notes PA Supervision Note: I personally saw and examined the patient. I verified all yi points and agree with ARIANA Doe with the following exceptions and/or additions: S-patient feeling better and ready to go home, right ankle is less red O- Vitals reviewed Gen: AAOx3, NAD HEENT: Anicteric sclerae, EOMI CV: RRR no mgr nl S1S2 Pulm: CTAB no wcr Abd: +BS soft NT ND no masses or hernias Ext: Right medial ankle with mild erythema that is blanching, mild edema Skin: No rashes, warm/dry Neuro: Full strength throughout A/G-[id number]-old female here with right ankle cellulitis, improved with antibiotic treatment Home with oral antibiotics and follow-up with vascular surgery and podiatry as an outpatient Coding Level of Care Code D/C DAY MANAGEMENT >30 MINS Diagnoses Cellulitis L03.90 Hypertension I10 Hypertension type: unspecified Hyperlipemia E78.5 Type 2 diabetes mellitus with diabetic neuropathy, unspecified E11.40 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 L97.519 PAD (peripheral artery disease) I73.9 Hyponatremia E87.1
[2020-12-29] MEDS ORDERED: cephALEXin 250 MG CAP PO SCH (13:00)
== END 2020-12-29 15:26 | disposition home or self-care (01) | DRG 638 ==
LOC: ED 17:47 → 3N 21:44 → SUATTDRO 21:44 → 3N 23:14

== ENCOUNTER 2021-04-04 05:40 | Inpatient (IN) ==
--- NOTE | 2021-03-01 11:11 | Anesthesiology Consultation ---
Date of Service March 01, 2021 Assessment & Plan (1) Encounter for pre-operative examination: Chart Review Chart Review: Acceptable Risk for Surgery and Patient NOT seen in Pre Admission Testing Consults Requested none History Surgery Operation Date: 03/06/21 08:00 Proposed Procedures p Femoral to Femoral Artery Bypas Graft - Khai Cash MD Height/Weight Height: 5 ft 5 in Weight: 77.111 kg Allergies Allergy/AdvReac Type Severity Reaction Status Date / Time metoprolol AdvReac Severe VOMIT,DIARR Unverified 02/26/21 15:04 HEA fenofibrate AdvReac Intermediate INCREASED Verified 02/26/21 15:04 URINATION verapamil AdvReac Intermediate INCREASED Verified 02/26/21 15:04 URINATION valsartan AdvReac Unknown Weakness Verified 02/26/21 15:04 Medications Home Medications Medication Instructions Recorded Confirmed Last Taken aspirin 81 mg tablet,delayed 81 mg PO HS 03/04/20 02/26/21 02/02/21 04:30 release carvedilol 25 mg tablet 25 mg PO BID 03/04/20 02/26/21 02/02/21 04:30 clonidine HCl 0.1 mg tablet 0.1 mg PO HS 03/04/20 02/26/21 02/02/21 04:30 glimepiride 4 mg tablet 4 mg PO BID 03/04/20 02/26/21 02/02/21 04:30 metformin 500 mg tablet,extended 1,000 mg PO BIDM 03/04/20 02/26/21 02/01/21 08:30 release 24 hr coenzyme Q10 100 mg capsule 100 mg PO QAM 12/01/20 02/26/21 02/01/21 08:30 (CoQ-10) fish, borage, flaxseed oils-omega 1 cap PO QDD 12/01/20 02/26/21 02/01/21 08:30 3,6,9 comb no.1 1,200 mg capsule ([place] 3-6-9) lisinopril 40 mg tablet (Zestril) 40 mg PO QAM 12/01/20 02/26/21 02/02/21 04:30 potassium chloride 10 mEq 10 meq PO DAILY PRN 12/01/20 02/26/21 Unknown tablet,extended release amlodipine 10 mg tablet 10 mg PO QAM 02/26/21 02/26/21 Unknown atorvastatin 40 mg tablet 40 mg PO QAM 02/26/21 02/26/21 Unknown hydralazine 25 mg tablet 25 mg PO QAM 02/26/21 02/26/21 Unknown multivitamin 1 tab PO QAM 02/26/21 02/26/21 Unknown spironolactone 25 mg tablet 12.5 mg PO QAM 02/26/21 02/26/21 Unknown Past Medical History Medical History CAD (coronary artery disease) CVA (cerebral vascular accident) (~2019) no deficits Hyperlipemia Hypertension Myocardial infarct, old follows with Dr. Mcpherson PAD (peripheral artery disease) Pneumonia hx S/P angiogram of extremity (02/02/21) Type 2 diabetes mellitus with diabetic neuropathy, unspecified NIDDM Past Family History Family History Other No family history of adverse response to anesthesia Past Surgical History Surgical History H/O removal of cyst right abdominal area History of bunionectomy of right great toe History of cardiac cath (~2019) History of heart artery stent (~2019) x1. at [facility]. Status post ORIF of fracture of ankle Social History Smoking Status: Former smoker tobacco type: cigarettes Do You Dip or Chew Tobacco: No Smoking End Date: quit ~1969's Hx Alcohol Use: Yes Alcohol type: wine alcohol intake frequency: holidays/special occasions only Hx Substance Use: No substance use type: does not use Testing Laboratory Results Laboratory Tests 12/01/20 12/26/20 12/26/20 07:49 19:42 19:42 WBC Hgb Plt Count PT 10.5 INR 1.0 APTT 27.3 Sodium Potassium Chloride Carbon Dioxide BUN Creatinine Glucose Hemoglobin A1c TSH 1.900 12/28/20 12/29/20 12/29/20 07:50 08:49 08:49 WBC 6.29 Hgb 13.2 Plt Count 349 PT INR APTT Sodium 127 L Potassium 4.5 Chloride 96 L Carbon Dioxide 26 BUN Creatinine Glucose 152 H Hemoglobin A1c 8.2 H TSH 02/02/21 05:41 WBC Hgb Plt Count PT INR APTT Sodium Potassium Chloride Carbon Dioxide BUN 21 H Creatinine 0.79 Glucose Hemoglobin A1c TSH 02/26/21 WBC 6.3 Hgb 10.5 platelet 269 Electrocardiogram Date: 12/01/20 Sinus bradycardia, rate [address] & T wave abnormality, consider lateral ischemia Abnormal ECG When compared with ECG of 30-MAR-2020 09:40, No significant change Confirmed by Suresh Moya ([id number]) on 12/01/2020 3:52:10 PM Chest X-Ray Date: 12/01/20 IMPRESSION: No acute cardiopulmonary abnormality.
[2021-04-04] MEDS ORDERED: LACTATED RINGER'S 1,000 ML IV SCH (06:00)
[2021-04-04] MEDS ORDERED: LR 15ML/HR IV SCH (06:00)
[2021-04-04] MEDS ORDERED: CEFAZOLIN 1,000 MG/7.5 ML SYR IV SCH (06:00)
[2021-04-04] MEDS ORDERED: SUCCINYLCHOLINE CHLORIDE 20 MG/ML 10 ML VIAL IV ONE (06:16)
[2021-04-04] MEDS ORDERED: ONDANSETRON INJ 2 MG/ML 2 ML VIAL ONE (06:16)
[2021-04-04] MEDS ORDERED: PROPOFOL IV EMULSION 10 MG/ML 20 ML VIAL IV ONE (06:16)
[2021-04-04] MEDS ORDERED: DEXAMETHASONE SOD INJ 4 MG/ML VIAL ONE (06:16)
[2021-04-04] MEDS ORDERED: CISATRACURIUM BESYLATE IV SOLN 2 MG/ML 10 ML VIAL IV ONE (06:16)
[2021-04-04] MEDS ORDERED: fentaNYL citrate 100 MCG/2 ML VIAL ONE ×2 (06:16→08:32)
[2021-04-04] MEDS ORDERED: MIDAZOLAM HCL 1 MG/ML 2ML VIAL ONE (07:04)
--- NOTE | 2021-04-04 07:08 | History & Physical Report ---
Date of Service April 04, 2021 Assessment & Plan (1) Occlusion of right iliac artery: Plan: Patient is admitted for a fem fem bypass. I have discussed the risks options and benefits of the procedure with the patient. The patient understands the risks options and benefits and agrees to the procedure. History of Present Illness Primary Care Provider: Mal Torres MD Mrs. Gould is an elderly female who presents as a new patient consultation in regards to a right great toe ulceration and significant peripheral arterial disease of the right leg. Patient is a somewhat poor historian, and some history is obtained from her daughter. They state that the patient developed a blister on her right great toe "months ago", possibly up to a year ago. States that this blister has been purplish in color and they have seen Dr. Sarah Meyer in the past and had the top purpleish skin removed. Most recently this was done last week. They state that her right toe and foot and ankle had become red, and then Dr. Sarah Meyer removed the blister, and the patient was started on antibiotics. They felt that the redness was slightly worse a day or 2 later, and the patient was admitted to [facility] for IV antibiotics. Some of their concern relates to the fact that she had a severe fracture of her right ankle in the past and has permanent hardware. Patient states that she is now on just oral antibiotics again and will be finishing them soon. They state that the redness is completely gone, and she is not having particularly severe pain in her right foot or toes. Upon questioning, patient states that occasionally her right hip bothers her when she has to walk the distance of the front to the back of the [employer]. She states that she will need to stop 2 or 3 times due to fatigue but is unable to specify whether this is general fatigue or right leg and hip fatigue. She denies any calf claudication. She denies any other discoloration of her toes. Patient also denies any abdominal pain, postprandial pain, weight loss, headache, fever, chills, chest pain, shortness of breath, nausea, vomiting, rest pain. She underwent arteriography which showed a right external iliac artery occlusion. Allergies Allergy/AdvReac Type Severity Reaction Status Date / Time metoprolol AdvReac Severe VOMIT,DIARR Verified 04/04/21 06:13 HEA fenofibrate AdvReac Intermediate INCREASED Verified 04/04/21 06:13 URINATION verapamil AdvReac Intermediate INCREASED Verified 04/04/21 06:13 URINATION valsartan AdvReac Unknown Weakness Verified 04/04/21 06:13 Home Medications Medication Instructions Recorded Confirmed Type aspirin 81 mg tablet,delayed 81 mg PO HS 03/04/20 04/04/21 History release carvedilol 25 mg tablet 25 mg PO BID 03/04/20 04/04/21 History clonidine HCl 0.1 mg tablet 0.1 mg PO HS 03/04/20 04/04/21 History glimepiride 4 mg tablet 4 mg PO BID 03/04/20 04/04/21 History metformin 500 mg tablet,extended 1,000 mg PO BIDM 03/04/20 04/04/21 History release 24 hr coenzyme Q10 100 mg capsule 100 mg PO QAM 12/01/20 04/04/21 History (CoQ-10) fish, borage, flaxseed oils-omega 1 cap PO QDD 12/01/20 04/04/21 History 3,6,9 comb no.1 1,200 mg capsule ([place] 3-6-9) lisinopril 40 mg tablet (Zestril) 40 mg PO QAM 12/01/20 04/04/21 History potassium chloride 10 mEq 10 meq PO DAILY PRN 12/01/20 04/04/21 History tablet,extended release amlodipine 10 mg tablet 10 mg PO QAM 02/26/21 04/04/21 History atorvastatin 40 mg tablet 40 mg PO QAM 02/26/21 04/04/21 History hydralazine 25 mg tablet 25 mg PO QAM 02/26/21 04/04/21 History multivitamin 1 tab PO QAM 02/26/21 04/04/21 History spironolactone 25 mg tablet 12.5 mg PO QAM 02/26/21 04/04/21 History Past Med/Surg History Medical History CAD (coronary artery disease) CVA (cerebral vascular accident) (~2019) no deficits Hyperlipemia Hypertension Myocardial infarct, old follows with Dr. Mcpherson PAD (peripheral artery disease) Pneumonia hx S/P angiogram of extremity (02/02/21) Type 2 diabetes mellitus with diabetic neuropathy, unspecified NIDDM Surgical History H/O removal of cyst right abdominal area History of bunionectomy of right great toe History of cardiac cath (~2019) History of heart artery stent (~2019) x1. at [facility] [place]. Status post ORIF of fracture of ankle Family History Other No family history of adverse response to anesthesia Social History Smoking Status: Former smoker Tobacco Type: Cigarettes Smoking End Date: quit ~1969's; Number of Years Since Quit: 40; Second Hand Exposure: No; Do You Dip or Chew Tobacco: No; Tobacco Cessation Education Requested by Patient: No Hx Alcohol Use: Yes Alcohol type: wine Hx Substance Use: No Preferred Language: Azerbaijani Communication Ability: Effective Communication Ability Comment: difficulty comprehending at times - dtrMamie is typically her caregiver Res Counselor Required: No Beliefs That Will Affect Care: None marital status: / Current Living Situation: Alone Current Living Situation Comment: ranch style home current occupational status: retired Other Information That Helps Us Care for You: No Feels Safe at Home: Yes Assistive Devices: None Review of Systems All systems reviewed & are unremarkable except as noted in HPI & below Physical Exam Physical Exam: Constitutional: In general patient is an overweight healthy- appearing well-nourished well-developed elderly female no distress. She is alert and oriented without any focal neurological deficits. Her head is normocephalic and atraumatic. Neck is supple nontender with a midline trachea. There is no carotid bruit. Heart is regular. Lungs are decreased slightly but clear throughout. Abdomen is soft and nontender with normoactive bowel sounds in all 4 quadrants. I do not appreciate a pulsatile mass. Left femoral pulse is +2, right femoral pulse is nonpalpable. Left DP pulse is +3, PT pulse is +1. Right leg DP and PT pulses are nonpalpable. She has brisk capillary refill to all toes. Her right great toe plantar surface has a shallow wound with yellowed callus at the edges. There is no significant drainage, and the wound b ed appears pink. There is no necrosis or eschar noted. There is no erythema. Right ankle surgical scars are noted. There is +1 to +2 pitting edema at the right ankle. Results & Data ([facility]) Vital Signs (Past 12 Hours) Vital Signs Temp Pulse Resp BP Pulse Ox 04/04/21 06:56 170/63 H 04/04/21 06:21 36.8 C 67 20 177/106 H 96
[2021-04-04] MEDS ORDERED: HEPARIN (PORCINE) 1000 UNIT/ML 10 ML (CATH LAB USE ONLY) ONE (07:14)
[2021-04-04] MEDS ORDERED: THROMBIN 5000 UNITS KIT ONE (07:15)
[2021-04-04] MEDS ORDERED: LIDOCAINE 1% LOCAL 20 ML VIAL ONE (07:15)
[2021-04-04] MEDS ORDERED: PAPAVERINE HCL INJ 30 MG/ML 2 ML VIAL ONE (07:15)
[2021-04-04] MEDS ORDERED: EPINEPHrine INJ 1 MG/ML AMP ONE (07:15)
[2021-04-04] MEDS ORDERED: BUPIVACAINE 0.5 % 5 MG/1 ML MPF 30ML VIAL ONE (07:15)
[2021-04-04] MEDS ORDERED: GELATIN SPONGE SZ 100 ONE (07:16)
[2021-04-04 07:31] LABS: BUN Creatinine Ratio 26.8 (10-20); Calcium 9.1 mg/dl (8.5-10.1); Creatinine Clr Calc Pharmacy 52.4 ml/min; Est GFR (Non-African American) 64.7 ml/min; Potassium 4.3 mmol/L (3.5-5.1)
[2021-04-04] MEDS ORDERED: ePHEDrine sulfate 50 MG/ML SYR ONE (09:47)
[2021-04-04] MEDS ORDERED: HEPARIN SOD (PORCINE) 1000 UNIT/ML ONE (09:47)
[2021-04-04] MEDS ORDERED: PROTAMINE SULFATE 10 MG/ML 5 ML VIAL ONE (09:47)
[2021-04-04] MEDS ORDERED: NEOSTIGMINE METHYLSULFATE 1 MG/ML 10ML VIAL ONE (10:04)
[2021-04-04] MEDS ORDERED: GLYCOPYRROLATE 0.2 MG/ML VIAL ONE (10:04)
[2021-04-04] MEDS ORDERED: ATROPINE SULFATE 0.1 MG/ML 10ML SYR IV PRN (10:27)
[2021-04-04] MEDS ORDERED: ONDANSETRON INJ 2 MG/ML 2 ML VIAL IV PRN (10:27)
[2021-04-04] MEDS ORDERED: ePHEDrine sulfate 50 MG/ML AMP IV PRN (10:27)
[2021-04-04] MEDS ORDERED: PROMETHAZINE HCL 12.5 MG in SODIUM CHLORIDE 0.9% 50 ML IV PRN (10:27)
[2021-04-04] MEDS ORDERED: fentaNYL citrate 100 MCG/2 ML VIAL IV PRN (10:27)
[2021-04-04] MEDS ORDERED: HYDROmorphone INJ 1 MG/ML SYRINGE IV PRN (10:27)
[2021-04-04] MEDS ORDERED: NALOXONE HCL 0.4 MG/1 ML VIAL/CARP IV PRN (10:27)
[2021-04-04] MEDS ORDERED: FLUMAZENIL 0.1 MG/1 ML 10 ML VIAL IV PRN (10:27)
--- NOTE | 2021-04-04 10:32 | Operative Report ---
Post Operative Report Pre & Post Diagnosis Operation Date: 03/06/21 08:00 <No data on this case meets the specified criteria> Operation Date: 04/04/21 07:30 Pre-Op Diagnosis: Right Iliac Occlusion Post-Op Diagnosis: Right Iliac Occlusion I identified the patient and participated in the time-out.: Yes Procedure Operation Date: 03/06/21 08:00 <No data on this case meets the specified criteria> Operation Date: 04/04/21 07:30 Actual Procedures p Femoral to Femoral Artety Bypass Graft(Bilateral) - Khai Cash MD Surgeon Khai Cash MD Thermostat Repairer none Estimated Blood Loss 100 Findings Consistent with Post-Op Diagnosis Specimens none Anesthesia Type General Complications none Disposition Accompanied Patient To Recovery: No Disposition: Recovery Room Indications This is a 80-year-old female nonhealing ulcer of the toe nailbed of her right great toe. She was found to have a right common iliac artery occlusion which could not be traversed endovascularly. Femorofemoral bypass was recommended. I have discussed the risks options and benefits of the procedure with the patient. The patient understands the risks options and benefits and agrees to the procedure. Description of Procedure The patient was taken the operating placed supine position. Both groins were then prepped and draped in a sterile manner. The patient was identified and a timeout was performed. Longitudinal incision were made in both groins and the common femoral arteries identified. On the left side there is a good pulse present in the common femoral artery. The bifurcation was slightly high in the groin. The superficial femoral arteries profundofemoral artery origin and common femoral arteries were isolated. They were soft with mild plaque. On the right side the bifurcation was high at the inguinal ligament. It was decided to do the anastomosis to the superficial femoral artery proximally right at its origin. The patient was heparinized at that time. An 8 mm ringed propatent graft was brought to the operative field. A subcutaneous tunnel was made suprapubically and the graft passed from the right to the left groin. The common femoral arteries superficial femoral artery profundofemoral are clamped on the left side. The graft was beveled appropriate fashion. End-to-side anastomosis was then accomplished between the distal common femoral artery proximal superficial femoral artery origin and the graft using a running CV 5 Jasper-Gustavo suture in usual vascular fashion. Prior to completing the closure backbleeding and forebleeding was allowed to occur. Final few sutures stitches were then applied and securely tied. Clamps were removed and excellent flow was seen to the graft. The graft was then clamped just beyond its anastomosis. On the right side the common femoral artery profunda and superficial femoral arteries were then clamped. Longitudinal arteriotomy was started on the superficial femoral artery just beyond its origin extending downward. There was plaque present proximally which was endarterectomized without difficulty. Nice size lumen was then seen. The graft on the right side was then trimmed and beveled in the appropriate fashion. An end-to-side anastomosis was then accomplished again using a CV 5 Jasper-Gustavo suture in the usual vascular fashion. Prior to completing this closure backbleeding forebleeding was allowed to occur. The final few sutures were then accomplished and securely tied. Clamps were then removed off of the profunda and common femoral artery followed by the superficial femoral artery. Excellent flow was seen distally with a good pulse. Adequate stasis was then obtained in both groins. After adequate stasis was noted the wounds were closed in usual fashion using running 2-0 Vicryl suture for the femoral sheath and a running 3-0 Vicryl suture for the subcutaneous layer. [place] were used for the skin edges. Sterile dressings were a pplied.The patient left the operation room in satisfactory condition and tolerated the procedure well. All needle and sponge counts were correct at the end of the procedure. I attest to the content of the Intraoperative Record and any orders documented therein. Any exceptions are noted below.
[2021-04-04 11:01] LABS: Hematocrit (blood only) 29.1 % (37-47); Hemoglobin 9.6 g/dL (12.0-16.0)
--- NOTE | 2021-04-04 11:02 | Anesthesiology Progress Note ---
Date of Service April 04, 2021 Anesthesia Post Procedure Vital Signs Vital Signs: Temp Pulse Pulse Resp BP BP Pulse Ox 04/04/21 10:55 56 L 24 169/64 H 99 04/04/21 10:45 57 L 20 158/61 H 100 04/04/21 10:35 58 L 12 174/81 H 100 04/04/21 10:27 36.3 C L 59 L 15 176/88 H 99 04/04/21 06:56 170/63 H 04/04/21 06:21 36.8 C 67 20 177/106 H 96 Pain Intensity Right Groin: Pain Intensity: 2 Transfer of Care Handoff Completed per policy Notes Mental Status: alert / awake / arousable Patient Amnestic to Procedure: Yes Nausea / Vomiting: adequately controlled Pain: adequately controlled Airway Patency, RR, SpO2: stable & adequate BP & HR: stable & adequate Hydration State: stable & adequate Anesthetic Complications: no major complications apparent
[2021-04-04] MEDS ORDERED: POTASSIUM CHLORIDE 10 MEQ TABCR PO PRN (12:32)
[2021-04-04] MEDS: GLIMEPIRIDE 2 MG TAB PO SCH (17:29)
[2021-04-04] MEDS: metFORMIN HCL ER 500 MG TABCR PO SCH (17:30)
[2021-04-04] MEDS: OMEGA-3 (PURIFIED FISH OIL) 1 GM CAP PO SCH (17:30)
[2021-04-04] MEDS: oxyCODONE/ACETAMINOPHEN 5mg/325mg TAB PO PRN (19:12)
[2021-04-04] MEDS: cloNIDine HCL 0.1 MG TAB PO SCH (20:16)
[2021-04-04] MEDS: carvediloL 25 MG TAB PO SCH (20:16)
[2021-04-04] MEDS: ASPIRIN 81 MG ECTAB PO SCH (20:16)
[2021-04-05] MEDS: oxyCODONE/ACETAMINOPHEN 5mg/325mg TAB PO PRN ×2 (07:52→19:59)
[2021-04-05] MEDS ORDERED: NON-FORMULARY MEDICATION (Coenzyme Q10 [Coq-10] 100 mg Capsule) PO SCH (09:00)
[2021-04-05] MEDS ORDERED: ONDANSETRON INJ 2 MG/ML 2 ML VIAL IV PRN (10:09)
[2021-04-05] MEDS: metFORMIN HCL ER 500 MG TABCR PO SCH ×3 (10:12→17:47)
[2021-04-05] MEDS: GLIMEPIRIDE 2 MG TAB PO SCH ×2 (10:12→17:47)
[2021-04-05] MEDS: MULTIVITAMIN TAB PO SCH (10:13)
[2021-04-05] MEDS ORDERED: ONDANSETRON INJ 2 MG/ML 2 ML VIAL ONE (10:15)
[2021-04-05] MEDS: hydrALAZINE HCL 25 MG TAB PO SCH ×2 (10:19→20:46)
[2021-04-05] MEDS: SPIRONOLACTONE 12.5 MG TAB PO SCH ×2 (10:19→20:46)
[2021-04-05] MEDS: ATORVASTATIN 40 MG TAB PO SCH (10:19)
[2021-04-05] MEDS: carvediloL 25 MG TAB PO SCH ×2 (10:19→19:25)
[2021-04-05] MEDS: amLODIPine BESYLATE 5 MG TAB PO SCH ×2 (10:19→20:47)
[2021-04-05] MEDS: lisinopril 40 MG TAB PO SCH ×2 (10:19→20:46)
--- NOTE | 2021-04-05 13:46 | Surgery Progress Note ---
Date of Service April 05, 2021 Assessment & Plan (1) Occlusion of right iliac artery: Plan: Pt doing well post op. Likely d/c tomorrow. Admission and Anticipated Discharge Date Admission Date: April 04, 2021 Subjective 80 yo f POD #1 after L to R fem fem BPG, seen in f/u today. Pt admits some nausea and groin pain/burning. Denies any other new complaints. Denies pain in feet, vomiting. Ambulating to chair and back, eating well. Review of Systems Review of Systems: negative aside from HPI Physical Exam Constitutional: WD/WN, vitals as above Respiratory: normal respiratory effort, lungs clear to auscultation Cardiovascular: Rate/Rhythm: regular rate and regular rhythm Vessels: femoral pulses present, posterior tibial pulses present, dorsalis pedis pulses present and radial pulses present; + abnormal peripheral pulses Extremities: normal capillary refill and + edema (mild ankles) Gastrointestinal (Abdomen): Inspection/Auscultation: abdomen normal to insp ection and normal bowel sounds; abdomen not distended Percussion/Palpation: abdomen soft; abdomen nontender Skin: + incision (BL groins C/D/I with horacio); no erythema Neurologic: moves all extremities; no focal motor deficits and not confused Psychiatric: A+Ox3, euthymic affect Results & Data ([facility]) Vital Signs (Past 12 Hours) Vital Signs Temp Pulse Resp BP Pulse Ox 04/05/21 07:21 36.3 C L 57 L 16 149/55 H 91 04/05/21 03:39 36.8 C 59 L 18 119/50 L 92
[2021-04-05] MEDS: OMEGA-3 (PURIFIED FISH OIL) 1 GM CAP PO SCH (17:48)
[2021-04-05] MEDS: ASPIRIN 81 MG ECTAB PO SCH (19:24)
[2021-04-05] MEDS: cloNIDine HCL 0.1 MG TAB PO SCH (19:25)
[2021-04-06] MEDS: metFORMIN HCL ER 500 MG TABCR PO SCH ×2 (08:46→16:31)
[2021-04-06] MEDS: MULTIVITAMIN TAB PO SCH (08:47)
[2021-04-06] MEDS: ATORVASTATIN 40 MG TAB PO SCH (08:47)
[2021-04-06] MEDS: carvediloL 25 MG TAB PO SCH ×2 (08:47→20:19)
[2021-04-06] MEDS: amLODIPine BESYLATE 5 MG TAB PO SCH (08:47)
[2021-04-06] MEDS: GLIMEPIRIDE 2 MG TAB PO SCH ×2 (08:47→16:30)
[2021-04-06] MEDS: lisinopril 40 MG TAB PO SCH (08:48)
[2021-04-06] MEDS: hydrALAZINE HCL 25 MG TAB PO SCH (08:48)
[2021-04-06] MEDS: SPIRONOLACTONE 12.5 MG TAB PO SCH (08:48)
--- NOTE | 2021-04-06 09:33 | Surgery Progress Note ---
Date of Service April 06, 2021 Assessment & Plan (1) Occlusion of right iliac artery: Plan: Pt doing well post op. Will remove spears today for voiding trial and possibly d/c home after voiding. Increase activity. Admission and Anticipated Discharge Date Admission Date: April 04, 2021 Subjective 80 yo f POD #2 after L to R fem fem BPG, seen in f/u today. Pt admits pain/burning in BL groins, worse with movement. Pt had spears reinserted last evening d/t retention. No other new complaints. Review of Systems Review of Systems: negative aside from HPI Physical Exam Constitutional: WD/WN, vitals as above Respiratory: normal respiratory effort, lungs clear to auscultation Cardiovascular: Rate/Rhythm: regular rate and regular rhythm Vessels: femoral pulses present, posterior tibial pulses present, dorsalis pedis pulses present and radial pulses present; + abnormal peripheral pulses Extremities: normal capillary refill and + edema (mild ankles) Gastrointestinal (Abdomen): Inspection/Auscultation: abdomen normal to inspection and normal bowel sounds; abdomen not distended Percussion/Palpation: abdomen soft; abdomen nontender Skin: + incision (BL groins C/D/I with horacio); no erythema Neurologic: moves all extremities; no focal motor deficits and not confused Psychiatric: A+Ox3, euthymic affect Results & Data ([facility]) Vital Signs (Past 12 Hours) Vital Signs Temp Pulse Resp BP BP Pulse Ox 04/06/21 08:48 61 141/51 H 04/06/21 07:28 36.7 C 61 18 152/70 H 91 04/05/21 22:39 36.8 C 60 18 135/47 L 93
[2021-04-06] MEDS ORDERED: bisacodyL 10 MG SUPP PR STA (15:00)
[2021-04-06] MEDS: DOCUSATE SODIUM 100 MG CAP PO SCH ×2 (15:27→20:20)
[2021-04-06] MEDS: OMEGA-3 (PURIFIED FISH OIL) 1 GM CAP PO SCH (16:30)
[2021-04-06] MEDS: SENNA 8.6 MG TAB PO SCH (17:52)
[2021-04-06] MEDS: cloNIDine HCL 0.1 MG TAB PO SCH (20:19)
[2021-04-06] MEDS: ASPIRIN 81 MG ECTAB PO SCH (20:19)
[2021-04-06] MEDS: oxyCODONE/ACETAMINOPHEN 5mg/325mg TAB PO PRN (22:04)
--- NOTE | 2021-04-07 08:58 | Surgery Progress Note ---
Date of Service April 07, 2021 Assessment & Plan (1) Occlusion of right iliac artery: Plan: Pt doing well post op. Will D/C today. Admission and Anticipated Discharge Date Admission Date: April 04, 2021 Subjective 80 yo f POD #3 after L to R fem fem BPG, seen in f/u today. Feeling much better today. Voided spontaneously. Only complaints are burning across her lower abdomen and inside of both thighs. Physical Exam Constitutional: WD/WN, vitals as above Cardiovascular: Vessels: posterior tibial pulses present and dorsalis pedis pulses present Extremities: normal capillary refill; no edema Skin: + incision Psychiatric: Orientation: alert and oriented x 3 Results & Data ([facility]) Vital Signs (Past 12 Hours) Vital Signs Temp Pulse Resp BP Pulse Ox 04/07/21 06:29 36.5 C 61 17 136/63 94 04/06/21 22:40 36.7 C 61 20 136/55 L 92
[2021-04-07] MEDS: carvediloL 25 MG TAB PO SCH (09:33)
[2021-04-07] MEDS: DOCUSATE SODIUM 100 MG CAP PO SCH (09:33)
[2021-04-07] MEDS: SENNA 8.6 MG TAB PO SCH (09:34)
[2021-04-07] MEDS: GLIMEPIRIDE 2 MG TAB PO SCH (09:34)
[2021-04-07] MEDS: metFORMIN HCL ER 500 MG TABCR PO SCH (09:34)
[2021-04-07] MEDS: amLODIPine BESYLATE 5 MG TAB PO SCH (09:35)
[2021-04-07] MEDS: lisinopril 40 MG TAB PO SCH (09:35)
[2021-04-07] MEDS: MULTIVITAMIN TAB PO SCH (09:35)
[2021-04-07] MEDS: ATORVASTATIN 40 MG TAB PO SCH (09:35)
[2021-04-07] MEDS: SPIRONOLACTONE 12.5 MG TAB PO SCH (09:36)
[2021-04-07] MEDS: hydrALAZINE HCL 25 MG TAB PO SCH (09:36)
--- NOTE | 2021-04-09 09:44 | Discharge Summary ---
Date of Service April 09, 2021 Admission HPI Per Admitting Provider Mrs. Gould is an elderly female who presents as a new patient consultation in regards to a right great toe ulceration and significant peripheral arterial disease of the right leg. Patient is a somewhat poor historian, and some history is obtained from her daughter. They state that the patient developed a blister on her right great toe "months ago", possibly up to a year ago. States that this blister has been purplish in color and they have seen Dr. Sarah Meyer in the past and had the top purpleish skin removed. Most recently this was done last week. They state that her right toe and foot and ankle had become red, and then Dr. Saarh Meyer removed the blister, and the patient was started on antibiotics. They felt that the redness was slightly worse a day or 2 later, and the patient was admitted to [facility] for IV antibiotics. Some of their concern relates to the fact that she had a severe fracture of her right ankle in the past and has permanent hardware. Patient states that she is now on just oral antibiotics again and will be finishing them soon. They state that the redness is completely gone, and she is not having particularly severe pain in her right foot or toes. Upon questioning, patient states that occasionally her right hip bothers her when she has to walk the distance of the front to the back of the [employer]. She states that she will need to stop 2 or 3 times due to fatigue but is unable to specify whether this is general fatigue or right leg and hip fatigue. She denies any calf claudication. She denies any other discoloration of her toes. Patient also denies any abdominal pain, postprandial pain, weight loss, headache, fever, chills, chest pain, shortness of breath, nausea, vomiting, rest pain. She underwent arteriography which showed a right external iliac artery occlusion. Admission Exam Per Admitting Provider Constitutional: In general patient is an overweight healthy-appearing well- nourished well-developed elderly female no distress. She is alert and oriented without any focal neurological deficits. Her head is normocephalic and atraumatic. Neck is supple nontender with a midline trachea. There is no carotid bruit. Heart is regular. Lungs are decreased slightly but clear throughout. Abdomen is soft and nontender with normoactive bowel sounds in all 4 quadrants. I do not appreciate a pulsatile mass. Left femoral pulse is +2, right femoral pulse is nonpalpable. Left DP pulse is +3, PT pulse is +1. Right leg DP and PT pulses are nonpalpable. She has brisk capillary refill to all toes. Her right great toe plantar surface has a shallow wound with yellowed callus at the edges. There is no significant drainage, and the wound bed appea rs pink. There is no necrosis or eschar noted. There is no erythema. Right ankle surgical scars are noted. There is +1 to +2 pitting edema at the right ankle. Principal Diagnosis 1. s/p Left to Right Femoral-femoral bypass graft 2. R iliac artery occlusion Discharge Exam Constitutional WD/WN, vitals as above Respiratory normal respiratory effort, lungs clear to auscultation Cardiovascular Rate/Rhythm: regular rate and regular rhythm Vessels: femoral pulses present, posterior tibial pulses present, dorsalis pedis pulses present and radial pulses present; + abnormal peripheral pulses Extremities: normal capillary refill and + edema (mild ankles) Gastrointestinal (Abdomen) Inspection/Auscultation: abdomen normal to inspection and normal bowel sounds; abdomen not distended Percussion/Palpation: abdomen soft; abdomen nontender Skin + incision (BL groins C/D/I with horacio); no erythema Neurologic moves all extremities; no focal motor deficits and not confused Psychiatric A+Ox3, euthymic affect Discharge Data Allergies Allergy/AdvReac Type Severity Reaction Status Date / Time fenofibrate AdvReac Intermediate INCREASED Verified 04/04/21 06:13 URINATION metoprolol AdvReac Intermediate VOMIT,DIARR Verified 04/04/21 10:56 HEA verapamil AdvReac Intermediate INCREASED Verified 04/04/21 06:13 URINATION valsartan AdvReac Mild Weakness Verified 04/04/21 10:56 Procedures Performed Operation Date: 03/06/21 08:00 <No data on this case meets the specified criteria> Operation Date: 04/04/21 07:30 Actual Procedures p Femoral to Femoral Artety Bypass Graft(Bilateral) - Khai Cash MD Hospital Course (1) Occlusion of right iliac artery: Pt doing well post op day #3. Some difficulty voiding post op, but this has resolved. Will D/C today. Total Time Total Time Spent Total Time Spent (In Minutes): 0 Discharge Plan Discharge Items Patient Disposition: Home - Self-Care Reason For Visit: Right Iliac Occlusion Discharge Diagnosis: Right iliac artery occlusion with femoral to femoral bypass Activity: Per Instructions section Lifting: Gradually increase as tolerated Bathing Comment: May shower. Dry groins completely post shower Exercise/Sports: Gradually increase as tolerated Driving/Machine Use: Resume 3 days after discharge Weightbearing: Full weightbearing Non-emergency contact: Surgeon Call non-emergency contact if: your temperature is above 101.5, your wound has increased redness, your wound has increased drainage and your wound pain has increased Follow-up/Referrals: Mal Torres MD [Primary Care Provider] - Diet: Carb Consistent or DM2 and Heart Healthy Addtl Attending Provider Instructions: ACTIVITY RECOMMENDATIONS: Gradually increase activity Ambulate as much as possible Elevate legs when sitting SPECIAL CARE INSTRUCTIONS: Call your doctor if: * Temperature above 101 degrees * Pain not relieved by pain medicine ordered * There is increased drainage or redness from any incision * You have any unanswered questions or concerns. Pending Studies at Discharge: No Stand-Alone Forms: [facility], Smoking Cessation Medications and DC Order Prescriptions: Continued carvedilol 25 mg tablet 25 mg PO BID RF: 0 clonidine HCl 0.1 mg tablet 0.1 mg PO HS RF: 0 aspirin 81 mg Tablet,Delayed Release (Dr/Ec) 81 mg PO HS RF: 0 glimepiride 4 mg tablet 4 mg PO BID RF: 0 metformin 500 mg tablet extended release 24 hr 1,000 mg PO BIDM RF: 0 potassium chloride 10 mEq Tablet Extended Release 10 meq PO DAILY PRN (Reason: Cramps) RF: 0 lisinopril [Zestril] 40 mg tablet 40 mg PO QAM RF: 0 coenzyme Q10 [CoQ-10] 100 mg Capsule 100 mg PO QAM RF: 0 [place] 3-6-9 1,200 mg Capsule 1 cap PO QDD RF: 0 multivitamin Tablet 1 tab PO QAM RF: 0 atorvastatin 40 mg Tablet 40 mg PO QAM RF: 0 hydralazine 25 mg Tablet 25 mg PO QAM RF: 0 spironolactone 25 mg Tablet 12.5 mg PO QAM RF: 0 amlodipine 10 mg Tablet 10 mg PO QAM RF: 0 Discharge Orders: Discharge Order (Routine); Ordered 04/07/21 Ordered By: Khai Cash Admission Data Admit Date/Time: 04/04/21 07:11 Attending Provider: Khai Cash Admit Provider: Khai Cash Primary Care Provider: Mal Torres Other Interventions: Discharge Summary Assessment (RN) Last Done: 04/07/21 10:01
== END 2021-04-07 15:17 | disposition home or self-care (01) | DRG 253 ==
LOC: ASU 05:40 → 3E 07:11

== ENCOUNTER 2021-04-21 10:55 | Inpatient (IN) ==
[2021-04-21] MEDS ORDERED: SODIUM CHLORIDE 0.9% 1000ML 1,000 ML IV SCH (12:15)
--- NOTE | 2021-04-21 12:48 | XRay Report ---
XR chest 1V portable CLINICAL HISTORY: cough, fever TECHNIQUE: Single frontal radiograph of the chest was obtained. Comparison: Comparison is made to chest 2 views 04/02/2021 FINDINGS: No lines and tubes are seen. The cardiomediastinal silhouette is stable. A left sided airspace opacit y is seen. No evidence of pleural effusion or pneumothorax. IMPRESSION: Left airspace opacity may represent atelectasis, pneumonia, and/or aspiration. ACT 112: Negative or not required by law. Electronically signed by: Umair Tan M.D. 04/21/2021 12:47 PM
[2021-04-21 12:53] LABS: Basophils # (auto) 0.01 K/uL (0-0.2); Basophils % (auto) 0.1 %; Eosinophils # (auto) 0.06 K/uL (0-0.5); Eosinophils % (auto) 0.4 %; Hemoglobin 8.1 g/dL (12.0-16.0); Immature Granulocytes # (auto) 0.03 K/uL (0.00-0.02); Immature Granulocytes % (auto) 0.2 %; Lymphocytes # (auto) 0.62 K/uL (1.2-3.4); Lymphocytes % (auto) 3.8 %; Mean Corpuscular Hemoglobin 28.1 pg (25-34); Mean Corpuscular Hgb Conc 33.8 g/dL (32-36); Mean Corpuscular Volume 83.3 fL (80-100); Mean Platelet Volume 10.8 fL (7.4-10.4); Monocytes # (auto) 1.17 K/uL (0.11-0.59); Monocytes % (auto) 7.2 %; Neutrophils # (auto) 14.32 K/uL (1.4-6.5); Neutrophils % (auto) 88.3 %; Platelet Count 401 K/uL (130-400); RDW Coefficient of Variation 12.9 % (11.5-14.5); RDW Standard Deviation 39.4 fL (36.4-46.3); Red Blood Count 2.88 M/uL (4.2-5.4); White Blood Count 16.21 K/uL (4.8-10.8)
[2021-04-21 13:15] LABS: Alanine Aminotransferase 39 U/L (12-78); Albumin Level 2.4 gm/dl (3.4-5.0); Aspartate Aminotransferase 22 U/L (15-37); BUN Creatinine Ratio 23.3 (10-20); Blood Urea Nitrogen 23 mg/dl (7-18); Calcium 9.2 mg/dl (8.5-10.1); Carbon Dioxide 24 mmol/L (21-32); Chloride 91 mmol/L (98-107); Est GFR (African American) 62.5 ml/min; Est GFR (Non-African American) 53.9 ml/min; Glucose 197 mg/dl (70-99); Lipase 74 U/L (73-393); Magnesium 1.7 mg/dl (1.8-2.4); Potassium 4.7 mmol/L (3.5-5.1); Sodium 121 mmol/L (136-145)
[2021-04-21 13:20] LABS: Albumin Globulin Ratio 0.6 (0.9-2); Alkaline Phosphatase 118 U/L (45-117); Bilirubin,Total 0.5 mg/dl (0.2-1); Globulin 4.2 gm/dl (2.5-4.0); NT Pro B Type Natriuretic Pept 2699 pg/ml (0-1800); Total Protein 6.6 gm/dl (6.4-8.2); Troponin I < 0.015 ng/ml (0-0.045)
--- NOTE | 2021-04-21 13:39 | Emergency Department Note ---
History of Present Illness General Chief complaint: Fever Stated complaint: FEVER/COUGH Time Seen by Provider: 04/21/21 11:52 Source: patient and family Mode of arrival: ambulatory Limitations: no limitations History of Present Illness Provider complaint: fever, cough Onset (ago): day(s) 4 Associated symptoms: + cough, + fever/chills, + loss of appetite, + malaise and + shortness of breath; no chest pain, no headaches, no nausea/vomiting or no syncope Treatments prior to arrival: other This is a 80-year-old female who presents emergency department due to cough, and fever. Patient states she first began feeling ill several days ago. Daughter who is at bedside states she was just discharged after being hospitalized for pneumonia. She states her mother did come to visit her in the hospital. She states she is vaccinated against influenza. Patient states she began noticing fatigue, decreased appetite, mild congestion. She denies overt rhinorrhea or sore throat. She denies headaches, abdominal pain, vomiting, diarrhea. Daughter states month ago she did undergo a vascular surgery by Dr. Cash, however felt she has been recovering well from that and did see them in follow- up. Patient has some persistent lower extremity swelling from this. Patient denies any prior history of recurrent pneumonia or bronchitis. Patient denies any overt chest pain, palpitations, or shortness of breath. States cough is minimally productive, no hemoptysis noted. Pt seen during a time of high acuity and national emergency pandemic while wearing PPE. Home Medications Medication Instructions Recorded Confirmed Type aspirin 81 mg tablet,delayed 81 mg PO HS 03/04/20 04/21/21 History release carvedilol 25 mg tablet 25 mg PO BID 03/04/20 04/21/21 History clonidine HCl 0.1 mg tablet 0.1 mg PO HS 03/04/20 04/21/21 History glimepiride 4 mg tablet 4 mg PO BID 03/04/20 04/21/21 History metformin 500 mg tablet,extended 1,000 mg PO BIDM 03/04/20 04/21/21 History release 24 hr coenzyme Q10 100 mg capsule 100 mg PO QAM 12/01/20 04/21/21 History (CoQ-10) fish, borage, flaxseed oils-omega 1 cap PO QDD 12/01/20 04/21/21 History 3,6,9 comb no.1 1,200 mg capsule ([place] 3-6-9) lisinopril 40 mg tablet (Zestril) 40 mg PO QAM 12/01/20 04/21/21 History potassium chloride 10 mEq 10 meq PO DAILY PRN 12/01/20 04/21/21 History tablet,extended release amlodipine 10 mg tablet 10 mg PO QAM 02/26/21 04/21/21 History atorvastatin 40 mg tablet 40 mg PO QAM 02/26/21 04/21/21 History hydralazine 25 mg tablet 25 mg PO QAM 02/26/21 04/21/21 History multivitamin 1 tab PO QAM 02/26/21 04/21/21 History spironolactone 25 mg tablet 12.5 mg PO QAM 02/26/21 04/21/21 History zrhdemzhp-[id number]-KK-acetaminophen 7.5 30 ml PO DIRECTED PRN 04/21/21 04/21/21 History mg-60 [id number] oral liqd Allergies Allergy/AdvReac Type Severity Reaction Status Date / Time fenofibrate AdvReac Intermediate INCREASED Verified 04/21/21 13:10 URINATION metoprolol AdvReac Intermediate VOMIT,DIARR Verified 04/21/21 13:10 HEA verapamil AdvReac Intermediate INCREASED Verified 04/21/21 13:10 URINATION valsartan AdvReac Mild Weakness Verified 04/21/21 13:10 Past Med/Surg History Medical History CAD (coronary artery disease) CVA (cerebral vascular accident) (~2018) no deficits Hyperlipemia Hypertension Myocardial infarct, old follows with Dr. Mcpherson PAD (peripheral artery disease) Pneumonia hx S/P angiogram of extremity (02/02/21) Type 2 diabetes mellitus with diabetic neuropathy, unspecified NIDDM Surgical History H/O removal of cyst right abdominal area History of bunionectomy of right great toe History of cardiac cath (~2019) History of heart artery stent (~2019) x1. at [facility]. 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 Beliefs That Will Affect Care: None marital status: Single Current Living Situation: Alone Current Living Situation Comment: ranThe [employer] style home current occupational status: retired How many Children do You have: 1 Other Information That Helps Us Care for You: No Feels Safe at Home: Yes Safety Concerns: Feels Safe At This Time Assistive Devices: Oxygen - Continuous Review of Systems A total of 10 systems reviewed and were otherwise negative All systems reviewed & are unremarkable except as noted in HPI & below Physical Exam Vital Signs Vital Signs - 24 hr 04/21/21 11:00 04/21/21 11:20 04/21/21 11:30 Temperature 36.8 C Temperature Source Temporal Artery Scan Pulse Rate 59 L 62 60 Pulse Rate from SpO2 Sensor 62 60 Pulse Rhythm Regular Pulse Strength Normal Respiratory Rate 20 28 H 17 Respiratory Effort / Characteristics Non-Labored Spontaneous Respiratory Depth Normal Respiratory Pattern Regular Blood Pressure 129/61 Blood Pressure Mean 83 Blood Pressure Position Sitting Pulse Oximetry 98 97 96 Oxygen Delivery Method Room Air Sepsis Recent Fever Within 48 Hours Yes Sepsis New/Unexplained Change in Mental Status No Sepsis Action Taken by Nursing No Action Required 04/21/21 12:00 04/21/21 12:30 04/21/21 13:00 Temperature Temperature Source Pulse Rate 61 62 64 Pulse Rate from SpO2 Sensor 61 64 65 Pulse Rhythm Pulse Strength Respiratory Rate 20 22 24 Respiratory Effort / Characteristics Respiratory Depth Respiratory Pattern Blood Pressure 130/80 Blood Pressure Mean 96 Blood Pressure Position Pulse Oximetry 94 95 92 Oxygen Delivery Method Sepsis Recent Fever Within 48 Hours Sepsis New/Unexplained Change in Mental Status Sepsis Action Taken by Nursing 04/21/21 13:30 Temperature Temperature Source Pulse Rate 67 Pulse Rate from SpO2 Sensor 66 Pulse Rhythm Pulse Strength Respiratory Rate 16 Respiratory Effort / Characteristics Respiratory Depth Respiratory Pattern Blood Pressure 149/62 H Blood Pressure Mean 91 Blood Pressure Position Pulse Oximetry 93 Oxygen Delivery Method Sepsis Recent Fever Within 48 Hours Sepsis New/Unexplained Change in Mental Status Sepsis Action Taken by Nursing GENERAL: alert, ill appearing, well nourished, no distress, non-toxic, Laying right lateral recumbent EYE EXAM: normal conjunctiva, PERRL and EOM's grossly intact OROPHARYNX: no exudate, no erythema, lips, buccal mucosa, and tongue normal and mucous membranes are moist NECK: supple, no nuchal rigidity, no adenopathy, non-tender LUNGS: Clear but decreased to auscultation. Normal chest wall mechanics, no w/r/r HEART: no murmurs, S1 normal and S2 normal ABDOMEN: abdomen soft, non-tender, normo-active bowel sounds, no masses, no rebound or guarding. BACK: Back is symmetrical on inspection and there is no deformity, no midline tenderness, no CVA tenderness. SKIN: no rashes and no bruising UPPER EXTREMITIES: upper extremities are grossly normal. FROM, nml pulses b/l. LOWER EXTREMITIES: No pitting edema. FROM, nml pulses b/l. Mild right pedal edema. NEURO EXAM: Normal sensorium, cranial nerves II-XII grossly intact, normal speech, no gross weakness of arms, no gross weakness of legs. Gross sensation intact. Course Course 1340: Pt updated on results. 1432: Patient updated on additional results. 1440: Discussed with Dr. Casiano. Administered Medications Vancomycin HCl 2,000 mg/ (Sodium Chloride) 540 mls @ 200 mls/hr IV NOW ONE Stop: 04/21/21 20:11 Last Admin: 04/21/21 18:03 Dose: 200 mls/hr Documented by: [id number] Insulin Aspart (Insulin Aspart 100 Units/Ml 3 Ml Pen) 0 units SC ACHS AUNDREA Stop: 05/21/21 17:07 Last Admin: 04/21/21 18:02 Dose: 10 units Documented by: [id number] Cosigned by: [id number] Discontinued Medications Benzonatate (Benzonatate 100 Mg Capsule) 100 mg PO NOW ONE Stop: 04/21/21 14:26 Last Admin: 04/21/21 14:43 Dose: 100 mg Documented by: [id number] Doxycycline Hyclate (Doxycycline Hyclate 100 Mg Cap) 100 mg PO NOW STA Stop: 04/21/21 14:26 Last Admin: 04/21/21 14:42 Dose: 100 mg Documented by: [id number] Sodium Chloride (Nss 1000ml) 1,000 mls @ 125 mls/hr IV .Q8H AUNDREA Stop: 05/21/21 12:14 Last Infusion: 04/21/21 19:34 Dose: 0 mls/hr Documented by: [id number] Infusion: 04/21/21 13:52 Dose: 100 mls/hr Documented by: [id number] Admin: 04/21/21 12:48 Dose: 125 mls/hr Documented by: [id number] Ceftriaxone Sodium (Rocephin) 2,000 mg in 70 mls @ 140 mls/hr IV NOW STA Stop: 04/21/21 14:14 Last Infusion: 04/21/21 14:29 Dose: 0 mls/hr Documented by: [id number] Admin: 04/21/21 13:52 Dose: 140 mls/hr Documented by: [id number] Magnesium Sulfate/Dextrose (Magnesium Sulfate / D5w) 1 gm in 100 mls @ 100 mls/hr IV NOW STA Stop: 04/21/21 15:34 Last Infusion: 04/21/21 15:42 Dose: 0 mls/hr Documented by: [id number] Admin: 04/21/21 14:42 Dose: 100 mls/hr Documented by: [id number] Sodium Chloride (Nss) 500 mls @ 125 mls/hr IV .Q4H AUNDREA Stop: 04/21/21 19:29 Last Infusion: 04/21/21 19:34 Dose: 0 mls/hr Documented by: [id number] Admin: 04/21/21 17:05 Dose: 125 mls/hr Documented by: [id number] Piperacillin Sod/Tazobactam (Sod 3.375 gm/ Dextrose) 115 mls @ 230 mls/hr IV NOW ONE; Protocol Stop: 04/21/21 17:59 Last Infusion: 04/21/21 18:28 Dose: 0 mls/hr Documented by: [id number] Admin: 04/21/21 17:58 Dose: 230 mls/hr Documented by: [id number] Pantoprazole Sodium (Pantoprazole 40 Mg Tab) 40 mg PO NOW ONE Stop: 04/21/21 17:31 Last Admin: 04/21/21 17:57 Dose: 40 mg Documented by: [id number] Sodium Chloride (Sodium Chloride 1 Gm Tablet) 1 gm PO ONCE ONE Stop: 04/21/21 14:52 Last Admin: 04/21/21 15:21 Dose: 1 gm Documented by: [id number] Medical Decision Making Differential Diagnosis Differential diagnoses includes but is not limited to pneumonia, bronchitis, COPD/Asthma exacerbation, pneumothorax, pulmonary embolism, congestive heart failure, acute coronary syndrome Medical Records Attestation: I reviewed the patient's medical records. Home Medications Current Medication List: was personally reviewed by me Laboratory Data Attestation: I reviewed the patient's lab results. Result diagrams: 04/21/21 12:25 04/21/21 12:25 Lab Results 04/21/21 04/21/21 04/21/21 Range/Units 12:15 12:25 12:25 WBC 16.21 H (4.8-10.8) K/uL RBC 2.88 L (4.2-5.4) M/uL Hgb 8.1 L (12.0-16.0) g/dL Hct 24.0 L (37-47) % MCV 83.3 (80-100) fL MCH 28.1 (25-34) pg MCHC 33.8 (32-36) g/dL RDW Std Deviation 39.4 (36.4-46.3) fL RDW Coeff of Alysa 12.9 (11.5-14.5) % Plt Count 401 H (130-400) K/uL MPV 10.8 H (7.4-10.4) fL Immature Gran % (Auto) 0.2 % Neut % (Auto) 88.3 % Lymph % (Auto) 3.8 % [place] % (Auto) 7.2 % Eos % (Auto) 0.4 % Baso % (Auto) 0.1 % Neut # (Auto) 14.32 H (1.4-6.5) K/uL Lymph # (Auto) 0.62 L (1.2-3.4) K/uL [place] # (Auto) 1.17 H (0.11-0.59) K/uL Eos # (Auto) 0.06 (0-0.5) K/uL Baso # (Auto) 0.01 (0-0.2) K/uL Immature Gran # (Auto) 0.03 H (0.00-0.02) K/uL Sodium 121 L (136-145) mmol/L Potassium 4.7 (3.5-5.1) mmol/L Chloride 91 L (98-107) mmol/L Carbon Dioxide 24 (21-32) mmol/L Anion Gap 6.0 (3-11) BUN 23 H (7-18) mg/dl Creatinine 1.00 (0.6-1.2) mg/dl Est Cr Clr Drug Dosing Not Reportable Est GFR ( Amer) 62.5 ml/min Est GFR (Non-Af Amer) 53.9 ml/min BUN/Creatinine Ratio 23.3 H (10-20) Glucose 197 H (70-99) mg/dl Calcium 9.2 (8.5-10.1) mg/dl Magnesium 1.7 L (1.8-2.4) mg/dl Total Bilirubin 0.5 (0.2-1) mg/dl AST 22 (15-37) U/L ALT 39 (12-78) U/L Alkaline Phosphatase 118 H (45-117) U/L Troponin I < 0.015 (0-0.045) ng/ml NT-Pro-B Natriuret Pep 2699 H (0-1800) pg/ml Total Protein 6.6 (6.4-8.2) gm/dl Albumin 2.4 L (3.4-5.0) gm/dl Globulin 4.2 H (2.5-4.0) gm/dl Albumin/Globulin Ratio 0.6 L (0.9-2) Lipase 74 (73-393) U/L Procalcitonin (0-0.5) ng/ml SARS-CoV-2 (PCR) NEGATIVE (Negative) 04/21/21 Range/Units 12:25 WBC (4.8-10.8) K/uL RBC (4.2-5.4) M/uL Hgb (12.0-16.0) g/dL Hct (37-47) % MCV (80-100) fL MCH (25-34) pg MCHC (32-36) g/dL RDW Std Deviation (36.4-46.3) fL RDW Coeff of Alysa (11.5-14.5) % Plt Count (130-400) K/uL MPV (7.4-10.4) fL Immature Gran % (Auto) % Neut % (Auto) % Lymph % (Auto) % [place] % (Auto) % Eos % (Auto) % Baso % (Auto) % Neut # (Auto) (1.4-6.5) K/uL Lymph # (Auto) (1.2-3.4) K/uL [place] # (Auto) (0.11-0.59) K/uL Eos # (Auto) (0-0.5) K/uL Baso # (Auto) (0-0.2) K/uL Immature Gran # (Auto) (0.00-0.02) K/uL Sodium (136-145) mmol/L Potassium (3.5-5.1) mmol/L Chloride (98-107) mmol/L Carbon Dioxide (21-32) mmol/L Anion Gap (3-11) BUN (7-18) mg/dl Creatinine (0.6-1.2) mg/dl Est Cr Clr Drug Dosing Est GFR ( Amer) ml/min Est GFR (Non-Af Amer) ml/min BUN/Creatinine Ratio (10-20) Glucose (70-99) mg/dl Calcium (8.5-10.1) mg/dl Magnesium (1.8-2.4) mg/dl Total Bilirubin (0.2-1) mg/dl AST (15-37) U/L ALT (12-78) U/L Alkaline Phosphatase (45-117) U/L Troponin I (0-0.045) ng/ml NT-Pro-B Natriuret Pep (0-1800) pg/ml Total Protein (6.4-8.2) gm/dl Albumin (3.4-5.0) gm/dl Globulin (2.5-4.0) gm/dl Albumin/Globulin Ratio (0.9-2) Lipase (73-393) U/L Procalcitonin 0.28 (0-0.5) ng/ml SARS-CoV-2 (PCR) (Negative) Imaging Data Radiologist's Impression: Chest X-Ray 04/21/21 12:06 XR chest 1V portable CLINICAL HISTORY: cough, fever TECHNIQUE: Single frontal radiograph of the chest was obtained. Comparison: Comparison is made to chest 2 views 04/02/2021 FINDINGS: No lines and tubes are seen. The cardiomediastinal silhouette is stable. A left sided airspace opacity is seen. No evidence of pleural effusion or pneumothorax. IMPRESSION: Left airspace opacity may represent atelectasis, pneumonia, and/or aspiration. ACT 112: Negative or not required by law. Electronically signed by: Umair Tan M.D. 04/21/2021 12:47 PM ECG Data Attestation: I personally reviewed and interpreted this ECG as follows: Indication: + SOB/dyspnea Rate (beats per minute): 61 Rhythm: + normal sinus ECG Intervals/blocks: + Normal QRS and + Normal QT ECG [place]: + Normal ECG ST segments: + Nonspecific ST abnormalities MDM Narrative This is a 80-year-old female who presents due to concern for worsening fatigue, pneumonia, and fevers and recent sick contact with her daughter. Patient found to have pneumonia on chest x-ray, leukocytosis of 16, and hyponatremia. No prior history of hyponatremia. Patient's renal function intact. Patient did not initially appear mildly clinically dehydrated and was started on gentle IV fluid rehydration at a maintenance rate. Patient was afebrile and hemodynamical ly stable. I do not suspect occult cardiac etiology. Patient's procalcitonin reassuring. I do not suspect bacteremia/sepsis, blood culture sent as a precaution. Patient started on antibiotic therapy, case discussed with hospitalist. Patient's Covid swab was negative. An order was placed for continuous cardiac monitoring. The monitor shows a rate of _72_ with _normal sinus_ rhythm. Impression & Plan Fatigue, Pneumonia, Hyponatremia, Dyspnea Discharge Plan Visit Data Chief Complaint: Fever Stated Complaint: FEVER/COUGH ED Provider: Kriss Alegria Discharge Problem: Fatigue, Pneumonia, Hyponatremia, Dyspnea Patient Disposition: Admitted As Inpatient Discharge Instructions Interventions: ED Discharge Assessment Last Done: 04/21/21 16:09 Discharge Problem: Fatigue Qualifiers: Fatigue type: unspecified Qualified Code(s): R53.83 - Other fatigue Pneumonia Qualifiers: Pneumonia type: due to unspecified organism Laterality: left Lung location: lower lobe of lung Qualified Code(s): J18.9 - Pneumonia, unspecified organism Dyspnea Qualifiers: Dyspnea type: shortness of breath Qualified Code(s): R06.02 - Shortness of breath
[2021-04-21] MEDS ORDERED: cefTRIAXone SODIUM 2,000 MG/70 ML BAG IV STA (13:45)
[2021-04-21] MEDS ORDERED: BENZONATATE 100 MG CAPSULE PO ONE (14:25)
[2021-04-21] MEDS ORDERED: DOXYCYCLINE HYCLATE 100 MG CAP PO STA (14:25)
[2021-04-21] MEDS ORDERED: MAGNESIUM SULFATE / D5W 1 GM/100 ML BAG IV STA (14:35)
--- NOTE | 2021-04-21 14:35 | History & Physical Report ---
Date of Service April 21, 2021 Assessment & Plan (1) Fever: Plan: This point time suspect infection to be gram-negative pneumonia with leukocytosis fever at home. There is an infiltrate on chest x-ray and she is coughing reportedly productive at times patient be placed on vancomycin and Zosyn. Given recent hospital encounter will cover for MRSA until nasal swab is obtained if negative will stop the vancomycin blood cultures are obtained. Flutter valve and Mucinex will be given. (2) Hyponatremia: Plan: Patient is hyponatremia possibly from her pulmonary process. She is also on diuretics. 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 (3) Anemia: Plan: Patient is anemic but recently did have a surgical procedure which was a vascular procedure this could be anemia in the postoperative setting her indices are normal chromic normocytic we will start Protonix and follow her hemoglobin of 8.1. (4) DM (diabetes mellitus): Plan: Oral medications are held sliding scale insulin Lantus started diabetic diet (5) CAD (coronary artery disease): Plan: Continues aspirin atorvastatin carvedilol clonidine amlodipine once a day hydralazine is held lisinopril continues She is on multiple antihypertensive did have a renal artery CT angiogram December 15, 2020 which was unremarkable for significant renal artery stenosis bilateral stenosis read as 30% on that study (6) Hypertension: Plan: Multiple medications. Once a day hydralazine is held as that is not a typical dosing regimen although medications be continued consideration of clonidine patch to reduce the patient's oral medication intake (7) Hyperlipemia: Plan: Continues atorvastatin 40 patient is a known vasculopath have a recent having a femorofemoral bypass (8) DVT prophylaxis: Plan: Lovenox for DVT prevention patient has chronic kidney disease barely in the stage III range almost stage II therefore will use full dose Lovenox at this time History of Present Illness Primary Care Provider: Mal Torres MD 72-year-old female history of vasculopath diabetic foot infection who recently underwent a femorofemoral bypass discharge April [address] Cash. She presents with a few day history of progressive coughing fever and lethargy at home. Her family member was recently discharged in the hospital with bacterial pneumonia. Patient has elevation of her white blood cell count to 16,000 today fevers at home is not hypoxic has a slightly abnormal left basilar chest x-ray. She also has a slightly reddened right groin Fem Fem bypass site which although healing well is more red than the left. Previous diabetic toe infection area looks good. In the room she is coughing with a loose productive cough she is some minor changes on exam of the left base consistent with possible pneumonia and the fact that she is recently been hospitalized will cover her for MRSA and also gram- negative pneumonia She is Covid negative Allergies Allergy/AdvReac Type Severity Reaction Status Date / Time fenofibrate AdvReac Intermediate INCREASED Verified 04/21/21 13:10 URINATION metoprolol AdvReac Intermediate VOMIT,DIARR Verified 04/21/21 13:10 HEA verapamil AdvReac Intermediate INCREASED Verified 04/21/21 13:10 URINATION valsartan AdvReac Mild Weakness Verified 04/21/21 13:10 Home Medications Medication Instructions Recorded Confirmed Type aspirin 81 mg tablet,delayed 81 mg PO HS 03/04/20 04/21/21 History release carvedilol 25 mg tablet 25 mg PO BID 03/04/20 04/21/21 History clonidine HCl 0.1 mg tablet 0.1 mg PO HS 03/04/20 04/21/21 History glimepiride 4 mg tablet 4 mg PO BID 03/04/20 04/21/21 History metformin 500 mg tablet,extended 1,000 mg PO BIDM 03/04/20 04/21/21 History release 24 hr coenzyme Q10 100 mg capsule 100 mg PO QAM 12/01/20 04/21/21 History (CoQ-10) fish, borage, flaxseed oils-omega 1 cap PO QDD 12/01/20 04/21/21 History 3,6,9 comb no.1 1,200 mg capsule ([place] 3-6-9) lisinopril 40 mg tablet (Zestril) 40 mg PO QAM 12/01/20 04/21/21 History potassium chloride 10 mEq 10 meq PO DAILY PRN 12/01/20 04/21/21 History tablet,extended release amlodipine 10 mg tablet 10 mg PO QAM 02/26/21 04/21/21 History atorvastatin 40 mg tablet 40 mg PO QAM 02/26/21 04/21/21 History hydralazine 25 mg tablet 25 mg PO QAM 02/26/21 04/21/21 History multivitamin 1 tab PO QAM 02/26/21 04/21/21 History spironolactone 25 mg tablet 12.5 mg PO QAM 02/26/21 04/21/21 History jwuhtstfy-TLR-LT-acetaminophen 7.5 30 ml PO DIRECTED PRN 04/21/21 04/21/21 History mg-60 [id number]/30mL oral liqd Past Med/Surg History Medical History CAD (coronary artery disease) CVA (cerebral vascular accident) (~2018) no deficits Hyperlipemia Hypertension Myocardial infarct, old follows with Dr. Mcpherson PAD (peripheral artery disease) Pneumonia hx S/P angiogram of extremity (02/02/21) Type 2 diabetes mellitus with diabetic neuropathy, unspecified NIDDM Surgical History H/O removal of cyst right abdominal area History of bunionectomy of right great toe History of cardiac cath (~2018) History of heart artery stent (~2018) x1. at [facility]. 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 Beliefs That Will Affect Care: None marital status: Single Current Living Situation: Alone Current Living Situation Comment: ranch style home current occupational status: retired How many Children do You have: 1 Feels Safe at Home: Yes Assistive Devices: Walker Review of Systems Review of Systems: Mild distress and fatigue no headache, no visual changes no speech or swallowing issues no chest pain, pressure or palpitations Nonproductive at this time no abdominal pain, nausea or vomiting, recently having loose bowel movements which is not unusual for her no dysuria, hematuria or frequency Persistent daily swelling in her right leg where she had a previous diabetic foot infection in the great toe no back pain, CVA tenderness or radicular pain Patient states the right groin area is wetter than the left no focal signs of weakness or numbness or peripheral neuropathy from diabetes is present no complaints of anxiety or depression.. Physical Exam Physical Exam: The patient appeared well nourished and normally developed. Vital signs as documented. Head exam is normocephalic atraumatic Neck is without JVD, thyromegaly, or carotid bruits. Lungs are rhonchi at the left base Cardiac exam, Rhythm is regular.. Systolic murmur is heard Abdominal exam reveals normal bowel sounds, soft non tender, no masses Extremities are right lower extremity trace edema Neurologic exam is alert and oriented, no focal loss of strength peripheral neuropathy Right groin incision is clean and intact it is not dry slightly erythematous l eft incision is clean dry and intact Right great toe with callus which reportedly is being debrided by Dr. Sarah Meyer Psychologically is without concerns for anxiety or depression.. Results & Data Results & Data ([facility]) Vital Signs (Past 12 Hours) Vital Signs Temp Pulse Resp BP Pulse Ox 04/21/21 13:30 67 16 149/62 H 93 04/21/21 13:00 64 24 130/80 92 04/21/21 12:30 62 22 95 04/21/21 12:00 61 20 94 04/21/21 11:30 60 17 96 04/21/21 11:20 62 28 H 97 04/21/21 11:00 98.2 F 59 L 20 129/61 98 Diagnostic Findings Chest x-ray performed 04/22/2021 shows left there is opacity indeterminate with atelectasis pneumonia and/or aspiration pneumonitis ECG Additional Comments: EKG shows sinus rhythm PG Care Time/CCT Total # of Minutes Spent Total Time Spent with Patient: Total time spent is greater than 50% in coordination of care (as documented) at patient's floor/unit and/or counseling patient: Coding Level of Care Code 33782 Initial Inpt Care Lvl 3 Diagnoses DM (diabetes mellitus) E11.9 CAD (coronary artery disease) I25.10 Hypertension I10 Hypertension type: unspecified Hyperlipemia E78.5 Hyponatremia E87.1 Fever R50.9 DVT prophylaxis Z29.9 Anemia D64.9 (1) Hypertension Hypertension type: unspecified Qualified Code(s): I10 - Essential (primary) hypertension
[2021-04-21] MEDS ORDERED: SODIUM CHLORIDE 1 GM TABLET PO ONE (14:51)
[2021-04-21] MEDS ORDERED: SODIUM CHLORIDE 0.9% 500 ML IV SCH (15:30)
[2021-04-21] MEDS ORDERED: VANCOMYCIN CONSULT ACTIVE PRN (17:08)
[2021-04-21] MEDS ORDERED: DEXTROSE 50% 50 ML SYRINGE IV PRN (17:08)
[2021-04-21] MEDS ORDERED: GLUCAGON FOR INJ 1 MG VIAL SQ PRN (17:08)
[2021-04-21] MEDS ORDERED: CARBOHYDRATES FOR HYPOGLYCEMIA PO PRN (17:08)
[2021-04-21] MEDS ORDERED: GLUCOSE 40% GEL 15 GM TUBE PO PRN (17:08)
[2021-04-21] MEDS ORDERED: ONDANSETRON INJ 2 MG/ML 2 ML VIAL IV PRN (17:08)
[2021-04-21] MEDS ORDERED: PIPERACILL/TAZOBAC CONSULT ACTIVE PRN (17:08)
[2021-04-21] MEDS ORDERED: GLUCOSE 10 TABS/TUBE PO PRN (17:08)
[2021-04-21] MEDS ORDERED: ALUMINUM/MAGNESIUM SUSP 30 ML UDC PO PRN (17:08)
[2021-04-21] MEDS ORDERED: ACETAMINOPHEN 325 MG TAB PO PRN (17:08)
[2021-04-21] MEDS ORDERED: PIPERACILLIN/TAZOBACTAM 3.375 GM in DEXTROSE 5% 100 ML IV ONE (17:30)
[2021-04-21] MEDS ORDERED: VANCOMYCIN HCL 2,000 MG in SODIUM CHLORIDE 0.9% 500 ML IV ONE (17:30)
[2021-04-21] MEDS ORDERED: PANTOprazole 40 MG TAB PO ONE (17:30)
--- NOTE | 2021-04-21 17:48 | Pharmacy Report ---
Pharmacy Vanc AUC Short Note - Date of Service April 21, 2021 - Assessment & Plan Assessment 80 year old F receiving vancomycin/Zosyn for treatment of pneumonia. Pertinent microbiologic data includes: N/A, MRSA swab uncollected. Day # 1 of antimicrobial therapy. Plan Vancomycin * AUC/BRITT is the preferred PK/PD target for vancomycin * AUC guided dosing is effective and associated with decreased risk of nephrotoxicity compared to traditional trough targets * vancomycin 1250 mg IV q24 is predicted to achieve target AUC/BRITT of 400-600 mg/L.hr and may be associated with a 9 % risk of nephrotoxicity * Trough to be ordered if vancomycin continued. Pharmacy will continue to follow and will adjust dose/frequency as necessary. Thank you.
[2021-04-21] MEDS: INSULIN ASPART 100 UNITS/ML 3 ML PEN SC SCH ×2 (18:02→21:03)
[2021-04-21 19:58] LABS: Calcium 8.5 mg/dl (8.5-10.1); Creatinine Clr Calc Pharmacy 50.7 ml/min; Est GFR (Non-African American) 61.2 ml/min; Potassium 4.3 mmol/L (3.5-5.1)
[2021-04-21] MEDS ORDERED: COUGH DROP (SUGAR FREE) LOZ 24 LOZ/1 BOX BUCCAL PRN (19:59)
[2021-04-21] MEDS: ASPIRIN 81 MG ECTAB PO SCH (20:52)
[2021-04-21] MEDS: carvediloL 25 MG TAB PO SCH (20:52)
[2021-04-21] MEDS: guaiFENesin 600 MG TABCR PO SCH (20:53)
[2021-04-21] MEDS: cloNIDine HCL 0.1 MG TAB PO SCH (20:53)
[2021-04-21] MEDS: PIPERACILLIN/TAZOBACTAM 3.375 GM in DEXTROSE 5% 100 ML IV SCH (21:19)
[2021-04-21] MEDS ORDERED: guaiFENesin/CODEINE 100MG/10MG 5ML UDC PO STA (22:40)
[2021-04-22] MEDS: PIPERACILLIN/TAZOBACTAM 3.375 GM in DEXTROSE 5% 100 ML IV SCH ×3 (05:10→21:26)
[2021-04-22 06:55] LABS: BUN Creatinine Ratio 25.4 (10-20); Calcium 8.8 mg/dl (8.5-10.1); Creatinine Clr Calc Pharmacy 53.7 ml/min; Est GFR (African American) 76.1 ml/min; Est GFR (Non-African American) 65.6 ml/min; Magnesium 1.9 mg/dl (1.8-2.4); Potassium 4.5 mmol/L (3.5-5.1)
[2021-04-22] MEDS: PANTOprazole 40 MG TAB PO SCH (08:21)
[2021-04-22] MEDS: ATORVASTATIN 40 MG TAB PO SCH (08:21)
[2021-04-22] MEDS: lisinopril 40 MG TAB PO SCH (08:22)
[2021-04-22] MEDS: guaiFENesin 600 MG TABCR PO SCH ×2 (08:22→20:20)
[2021-04-22] MEDS: carvediloL 25 MG TAB PO SCH ×2 (08:22→20:20)
[2021-04-22] MEDS: MULTIVITAMIN TAB PO SCH (08:22)
[2021-04-22] MEDS: amLODIPine BESYLATE 5 MG TAB PO SCH (08:23)
[2021-04-22] MEDS: ENOXAPARIN INJ 40 MG/0.4 ML SYR SQ SCH (08:23)
[2021-04-22] MEDS: SPIRONOLACTONE 12.5 MG TAB PO SCH (08:24)
[2021-04-22] MEDS: INSULIN ASPART 100 UNITS/ML 3 ML PEN SC SCH ×4 (09:14→20:30)
--- NOTE | 2021-04-22 09:57 | Electrocardiogram Report ---
Test Reason : Blood Pressure : / mmHG Vent. Rate : 061 BPM Atrial Rate : 061 BPM P-R Int : 164 ms QRS Dur : 088 ms QT Int : 408 ms P-R-T Axes : 042 016 033 degrees QTc Int : 410 ms Poor data quality, interpretation may be adversely affected Normal sinus rhythm Normal ECG When compared with ECG of 02-APR-2021 10:59, T wave inversion no longer evident in Lateral leads Confirmed by Suresh Moya ([id number]) on 04/22/2021 9:57:19 AM Referred By: Confirmed By:Suresh Moya
[2021-04-22] MEDS ORDERED: VANCOMYCIN HCL 1,250 MG in SODIUM CHLORIDE 0.9% 250 ML IV SCH (18:00)
[2021-04-22] MEDS ORDERED: LEVALBUTEROL HCL 1.25 MG/3 ML NEB NEB PRN (18:12)
[2021-04-22] MEDS: ASPIRIN 81 MG ECTAB PO SCH (20:20)
[2021-04-22] MEDS: cloNIDine HCL 0.1 MG TAB PO SCH (20:20)
--- NOTE | 2021-04-22 21:11 | Hospitalist Progress Note ---
Date of Service April 22, 2021 Assessment & Plan (1) Pneumonia: Plan: Fever, cough in a 80 yo female with possible gram negative pneumonia. Patient has leukocytosis, and an infiltrate on chest x-ray and she is coughing reportedly productive at times patient be placed on vancomycin and Zosyn. Given recent hospital encounter, covered with MRSA until nasal swab is obtained. However, this was negative and vanco was stopped on 04/22 will continue Flutter valve and Mucinex will recheck blood work in AM (2) Fever: Plan: as above (3) Hyponatremia: Plan: Patient is hyponatremia possibly from her pulmonary process. She is also on diuretics. 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 Sodium improved to 124 will recheck labs in AM (4) Anemia: Plan: Patient is anemic but recently did have a surgical procedure which was a vascular procedure this could be anemia in the postoperative setting her indices are normal chromic normocytic we will start Protonix and follow her hemoglobin of 8.1. (5) DM (diabetes mellitus): Plan: Oral medications are held sliding scale insulin Lantus started diabetic diet (6) CAD (coronary artery disease): Plan: Continues aspirin atorvastatin carvedilol clonidine amlodipine once a day hydralazine is held lisinopril continues She is on multiple antihypertensive did have a renal artery CT angiogram December 15, 2020 which was unremarkable for significant renal artery stenosis bilateral stenosis read as 30% on that study (7) Hypertension: Plan: Multiple medications. Once a day hydralazine is held as that is not a typical dosing regimen although medications be continued consideration of clonidine patch to reduce the patient's oral medication intake (8) Hyperlipemia: Plan: Continues atorvastatin 40 patient is a known vasculopath have a recent having a femorofemoral bypass (9) DVT prophylaxis: Plan: Lovenox for DVT prevention patient has chronic kidney disease barely in the stage III range almost stage II therefore will use full dose Lovenox at this time Admission and Anticipated Discharge Date Admission Date: April 21, 2021 Subjective Patient reports having a productive cough today. She reports that she tolerated cough medicine with codeine last night and she is requesting another dose today. Review of Systems Review of Systems: All systems reviewed & are unremarkable except as noted in HPI & below Physical Exam Physical Exam: The patient appeared well nourished and normally developed. Vital signs as documented. Head exam is normocephalic atraumatic Neck is without JVD, thyromegaly, or carotid bruits. Lungs are rhonchi at the left base Cardiac exam, Rhythm is regular.. Systolic murmur is heard Abdominal exam reveals normal bowel sounds, soft non tender, no masses Extremities are right lower extremity trace edema Neurologic exam is alert and oriented, no focal loss of strength peripheral neuropathy Right groin incision is clean and intact it is not dry slightly erythematous left incision is clean dry and intact Right great toe with callus which reportedly is being debrided by Dr. Sarah Meyer Psychologically is without concerns for anxiety or depression Results & Data Results & Data ([facility]) Vital Signs (Past 12 Hours) Vital Signs Temp Pulse Resp BP Pulse Ox 04/22/21 15:18 36.9 C 64 18 146/56 H 92 04/22/21 11:10 58 L 133/55 L 93 PG Care Time/CCT Total # of Minutes Spent Total Time Spent with Patient: Total time spent is greater than 50% in coordination of care (as documented) at patient's floor/unit and/or counseling patient: Coding Level of Care Code 15170 Subseq Hosp Care Lvl 2 Diagnoses Fever R50.9 Hyponatremia E87.1 Anemia D64.9 DM (diabetes mellitus) E11.9 CAD (coronary artery disease) I25.10 Hypertension I10 Hypertension type: unspecified Hyperlipemia E78.5 DVT prophylaxis Z29.9 Pneumonia J18.9 Laterality: left Lung location: lower lobe of lung Pneumonia type: due to unspecified organism (1) Hypertension Hypertension type: unspecified Qualified Code(s): I10 - Essential (primary) hypertension (2) Pneumonia Laterality: left Lung location: lower lobe of lung Pneumonia type: due to unspecified organism Qualified Code(s): J18.9 - Pneumonia, unspecified organism
[2021-04-22] MEDS: guaiFENesin/CODEINE 100MG/10MG 5ML UDC PO SCH (21:27)
[2021-04-23] MEDS: PIPERACILLIN/TAZOBACTAM 3.375 GM in DEXTROSE 5% 100 ML IV SCH ×3 (05:36→21:12)
[2021-04-23 06:48] LABS: Basophils # (auto) 0.01 K/uL (0-0.2); Basophils % (auto) 0.1 %; Eosinophils # (auto) 0.23 K/uL (0-0.5); Hematocrit (blood only) 22.9 % (37-47); Hemoglobin 7.6 g/dL (12.0-16.0); Immature Granulocytes # (auto) 0.03 K/uL (0.00-0.02); Immature Granulocytes % (auto) 0.3 %; Lymphocytes # (auto) 0.62 K/uL (1.2-3.4); Lymphocytes % (auto) 5.3 %; Mean Corpuscular Hemoglobin 27.8 pg (25-34); Mean Corpuscular Hgb Conc 33.2 g/dL (32-36); Mean Corpuscular Volume 83.9 fL (80-100); Mean Platelet Volume 10.4 fL (7.4-10.4); Monocytes % (auto) 6.9 %; Neutrophils # (auto) 9.95 K/uL (1.4-6.5); Neutrophils % (auto) 85.4 %; Platelet Count 454 K/uL (130-400); RDW Coefficient of Variation 13.3 % (11.5-14.5); RDW Standard Deviation 40.6 fL (36.4-46.3); Red Blood Count 2.73 M/uL (4.2-5.4); White Blood Count 11.64 K/uL (4.8-10.8)
[2021-04-23 07:17] LABS: Echinocytes 1+
[2021-04-23 07:20] LABS: BUN Creatinine Ratio 23.2 (10-20); Calcium 9.1 mg/dl (8.5-10.1); Creatinine Clr Calc Pharmacy 46.6 ml/min; Est GFR (Non-African American) 55.3 ml/min; Potassium 4.6 mmol/L (3.5-5.1)
[2021-04-23 07:57] LABS: Estimated Average Glucose 154 mg/dl
[2021-04-23] MEDS: guaiFENesin 600 MG TABCR PO SCH ×2 (08:32→21:07)
[2021-04-23] MEDS: amLODIPine BESYLATE 5 MG TAB PO SCH (08:32)
[2021-04-23] MEDS: ATORVASTATIN 40 MG TAB PO SCH (08:33)
[2021-04-23] MEDS: ENOXAPARIN INJ 40 MG/0.4 ML SYR SQ SCH (08:33)
[2021-04-23] MEDS: PANTOprazole 40 MG TAB PO SCH (08:33)
[2021-04-23] MEDS: carvediloL 25 MG TAB PO SCH ×2 (08:33→21:08)
[2021-04-23] MEDS: SPIRONOLACTONE 12.5 MG TAB PO SCH (08:33)
[2021-04-23] MEDS: MULTIVITAMIN TAB PO SCH (08:33)
[2021-04-23] MEDS: lisinopril 40 MG TAB PO SCH (08:33)
[2021-04-23] MEDS: INSULIN ASPART 100 UNITS/ML 3 ML PEN SC SCH ×4 (09:01→21:10)
[2021-04-23] MEDS ORDERED: POLYETHYLENE (MIRALAX) 17 GM PACK PO PRN (12:21)
[2021-04-23] MEDS ORDERED: bisacodyL 10 MG SUPP PR PRN (12:21)
[2021-04-23] MEDS ORDERED: SENNA 8.6 MG TAB PO SCH ×2 (13:45→21:00)
--- NOTE | 2021-04-23 16:27 | Hospitalist Progress Note ---
Date of Service April 23, 2021 Assessment & Plan (1) Pneumonia: Plan: - Presented with fever, cough, leukocytosis, and infiltrate on CXR - also with daughter recently hospitalized for pneumonia and patient had recent hospitalization for vascular procedure - Remains afebrile in the hospital; leukocytosis is trending down; procalcitonin is negative; COVID negative; MRSA nasal swab negative - Continue Zosyn for now; will add Doxy for atypical coverage; Vanc D/Cd given negative nasal swab - Continue Mucinex and cough syrup; AUNDREA nebulizers (2) Hyponatremia: Plan: - Acute on Chronic - seems average is 125-129 -- Is on diuretics - possibly worsened given pulmonary process - Continue fluid restriction - likely SIADH component - Currently at 122 and will trend (3) Anemia: Plan: - Patient is anemic but recently did have a surgical procedure which was a vascular procedure this could be anemia in the postoperative setting her indices are normal chromic normocytic - Start Protonix and follow her hemoglobin - Currently at 7.6 and will trend - vitals stable (4) DM (diabetes mellitus): Plan: - Oral medications are held - Sliding scale insulin (5) CAD (coronary artery disease): Plan: - Continues aspirin, atorvastatin, carvedilol, clonidine, amlodipine, and lisinopril (6) Hypertension: Plan: - Multiple medications. Once a day hydralazine is held as that is not a typical dosing regimen -- [facility] suggests once a day hydralazine (currently on hold) - review of last fill from Dr. Mcpherson's office suggest this should be dosed TID which is more consistent - will see if the patient was taking just once a day or how it was supposed to be prescribed for her - She is on multiple antihypertensive did have a renal artery CT angiogram December 15, 2020 which was unremarkable for significant renal artery stenosis bilateral stenosis read as 30% on that study (7) Hyperlipemia: Plan: - Continues atorvastatin 40 mg daily -- patient is a known vasculopath and recently having a femorofemoral bypass (8) DVT prophylaxis: Plan: Lovenox for DVT prevention patient has chronic kidney disease barely in the stage III range almost stage II therefore will use full dose Lovenox at this time Plan: - Continue to wean O2 as tolerated; continue inpatient stay - Plans to return home with daughter upon discharge Admission and Anticipated Discharge Date Admission Date: April 21, 2021 Subjective Reports breathing may be a bit better. Mostly complaining of needing to move her bowels. Passing flatus but last BM about 2 days ago. Causing her to have a limited appetite. Still requiring supplemental O2. Review of Systems Review of Systems: REVIEW OF SYSTEMS General/Constitutional: + fatigue; Denies fever/chills ENT: Denies sore throat, trouble swallowing Cardiovascular: Denies chest pain, palpitations, edema Respiratory: + cough + sputum + SOB GI: + constipation + bloating; Denies nausea, vomiting, abdominal pain : Denies dysuria Musculoskeletal: Denies joint/muscle ache Neurologic: Denies dizziness/lightheadedness Skin: Denies rash Physical Exam Physical Exam: PHYSICAL EXAM General Appearance: Ill appearing but nontoxic in NAD who is A&O x 3 HEENT: Head is normocephalic/atraumatic; Hearing grossly intact; Mucous membranes moist Neck: Supple; Trachea midline; Neg JVD Heart: RRR with systolic murmur Lungs: CTA in all lung hein bilaterally but diminished and coughing with deep breathing; Respirations unlabored; Neg accessory muscle use Abdomen: Soft, non-tender, non-distended; Positive BS x 4 quadrants Extremities: Neg cyanosis or edema Neurological: Speech clear; Gross motor/sensory function intact; Neg focal neurologic deficits Psychiatric: Appropriate mood/affect Skin: Normal Color; Warm/Dry Results & Data Results & Data ([facility]) Vital Signs (Past 12 Hours) Vital Signs Temp Pulse Resp BP Pulse Ox 04/23/21 15:32 36.8 C 69 18 166/69 H 91 04/23/21 10:09 68 24 85 L 04/23/21 07:03 37 C 64 18 152/61 H 97 PG Care Time/CCT Total # of Minutes Spent Total Time Spent with Patient: Total time spent is greater than 50% in coordination of care (as documented) at patient's floor/unit and/or counseling patient: Coding Level of Care Code 08579 Subseq Hosp Care Lvl 3 Diagnoses Pneumonia J18.9 Laterality: left Lung location: lower lobe of lung Pneumonia type: due to unspecified organism Hyponatremia E87.1 Anemia D64.9 DM (diabetes mellitus) E11.9 CAD (coronary artery disease) I25.10 Hypertension I10 Hypertension type: unspecified Hyperlipemia E78.5 DVT prophylaxis Z29.9 (1) Hypertension Hypertension type: unspecified Qualified Code(s): I10 - Essential (primary) hypertension (2) Pneumonia Laterality: left Lung location: lower lobe of lung Pneumonia type: due to unspecified organism Qualified Code(s): J18.9 - Pneumonia, unspecified organism
[2021-04-23] MEDS: LEVALBUTEROL HCL 1.25 MG/3 ML NEB NEB SCH (19:26)
[2021-04-23] MEDS: DOXYCYCLINE HYCLATE 100 MG CAP PO SCH (21:07)
[2021-04-23] MEDS: ASPIRIN 81 MG ECTAB PO SCH (21:08)
[2021-04-23] MEDS: cloNIDine HCL 0.1 MG TAB PO SCH (21:08)
[2021-04-23] MEDS: guaiFENesin/CODEINE 100MG/10MG 5ML UDC PO SCH (21:12)
[2021-04-24] MEDS: LEVALBUTEROL HCL 1.25 MG/3 ML NEB NEB SCH ×5 (02:31→20:08)
[2021-04-24] MEDS: PIPERACILLIN/TAZOBACTAM 3.375 GM in DEXTROSE 5% 100 ML IV SCH ×3 (05:39→21:45)
[2021-04-24 08:25] LABS: Hematocrit (blood only) 24.8 % (37-47); Hemoglobin 8.3 g/dL (12.0-16.0); Mean Corpuscular Hemoglobin 27.8 pg (25-34); Mean Corpuscular Hgb Conc 33.5 g/dL (32-36); Mean Corpuscular Volume 82.9 fL (80-100); Mean Platelet Volume 10.1 fL (7.4-10.4); Platelet Count 514 K/uL (130-400); RDW Standard Deviation 39.7 fL (36.4-46.3); Red Blood Count 2.99 M/uL (4.2-5.4)
[2021-04-24] MEDS: PANTOprazole 40 MG TAB PO SCH (09:12)
[2021-04-24] MEDS: carvediloL 25 MG TAB PO SCH ×2 (09:12→20:35)
[2021-04-24] MEDS: ENOXAPARIN INJ 40 MG/0.4 ML SYR SQ SCH (09:12)
[2021-04-24] MEDS: amLODIPine BESYLATE 5 MG TAB PO SCH (09:13)
[2021-04-24] MEDS: DOXYCYCLINE HYCLATE 100 MG CAP PO SCH ×2 (09:13→20:35)
[2021-04-24] MEDS: lisinopril 40 MG TAB PO SCH (09:13)
[2021-04-24] MEDS: guaiFENesin 600 MG TABCR PO SCH ×2 (09:13→20:35)
[2021-04-24] MEDS: SPIRONOLACTONE 12.5 MG TAB PO SCH (09:13)
[2021-04-24] MEDS: MULTIVITAMIN TAB PO SCH (09:14)
[2021-04-24] MEDS: ATORVASTATIN 40 MG TAB PO SCH (09:14)
[2021-04-24] MEDS: INSULIN ASPART 100 UNITS/ML 3 ML PEN SC SCH ×4 (09:19→20:38)
[2021-04-24] MEDS: BENZONATATE 100 MG CAPSULE PO SCH ×3 (09:22→20:36)
[2021-04-24 09:32] LABS: BUN Creatinine Ratio 21.2 (10-20); Calcium 8.8 mg/dl (8.5-10.1); Creatinine Clr Calc Pharmacy 57.1 ml/min; Est GFR (African American) 81.8 ml/min; Est GFR (Non-African American) 70.6 ml/min; Magnesium 1.9 mg/dl (1.8-2.4); Potassium 5.1 mmol/L (3.5-5.1)
--- NOTE | 2021-04-24 10:32 | Hospitalist Progress Note ---
Date of Service April 24, 2021 Assessment & Plan (1) Pneumonia: Plan: - Presented with fever, cough, leukocytosis, and infiltrate on CXR - also with daughter recently hospitalized for pneumonia and patient had recent hospitalization for vascular procedure - Remains afebrile in the hospital; leukocytosis is resolved; procalcitonin is negative; COVID negative; MRSA nasal swab negative - Continue Zosyn; add Doxy on 04/23 for atypical coverage; Vanc D/Cd given nega tive nasal swab - Continue Mucinex and cough syrup; AUNDREA nebulizers - Will send Rx for inhaler for PRN use (2) Hyponatremia: Plan: - Acute on Chronic - seems average is 125-129 -- Is on diuretics - possibly worsened given pulmonary process - Continue fluid restriction - likely SIADH component - Currently at 123 and will trend - given slightly elevated glucose does correct to about 124-125 (3) Anemia: Plan: - Patient is anemic but recently did have a surgical procedure which was a vascular procedure this could be anemia in the postoperative setting her indices are normal chromic normocytic - Start Protonix and follow her hemoglobin - Hgb 7.6 on 04/23 but improved to 8.3 without intervention and will trend - vitals stable (4) DM (diabetes mellitus): Plan: - Oral medications are held - Sliding scale insulin (5) CAD (coronary artery disease): Plan: - Continues aspirin, atorvastatin, carvedilol, clonidine, amlodipine, and lisinopril (6) Hypertension: Plan: - Multiple medications. -- Med rec suggests once a day hydralazine - review of last fill from Dr. Mcpherson's office suggest this should be dosed TID which is more consistent with typical dosing- discussed with patient who states she was told to take it three times a day but had a medication list that only suggested twice a day and wasn't sure and was using it BID - She is on multiple antihypertensive did have a renal artery CT angiogram December 15, 2020 which was unremarkable for significant renal artery stenosis bilateral stenosis read as 30% on that study (7) Hyperlipemia: Plan: - Continues atorvastatin 40 mg daily -- patient is a known vasculopath and recently having a femorofemoral bypass (8) DVT prophylaxis: Plan: Lovenox for DVT prevention patient has chronic kidney disease barely in the stage III range almost stage II therefore will use full dose Lovenox at this time Plan: - Continue to wean O2 as tolerated - recommend ambulation in halls may need 2 step; continue inpatient stay - Plans to return home with daughter upon discharge - possibly tomorrow Admission and Anticipated Discharge Date Admission Date: April 21, 2021 Subjective Reports feeling better today compared to coming into the hospital. Denies SOB at this time and currently not on O2. She is able to take slightly deeper breaths before coughing and is moving better air compared to yesterday. Moved her bowels and not feeling constipated and tolerating breakfast. Discussed her blood pressure medications as Hydralazine is normally not once a day dosing. She states she was told to take it three times a day by Dr. Mcpherson but states when she looked at a medication list it only said twice a day so she wasn't sure what she was supposed to do. Review of last Rx by Dr. Mcpherson was for 30 days with 90 pills suggesting a TID dosing as patient stated. Review of Systems Review of Systems: REVIEW OF SYSTEMS General/Constitutional: + fatigue with exertion; Denies fever/chills ENT: Denies sore throat, trouble swallowing Cardiovascular: Denies chest pain, palpitations, edema Respiratory: + cough (worse in AM but improving); Predominantly dry; Denies SOB GI: Denies nausea, vomiting, abdominal pain, constipation : Denies dysuria Musculoskeletal: Denies joint/muscle ache Neurologic: Denies dizziness/lightheadedness Skin: Denies rash Physical Exam Physical Exam: PHYSICAL EXAM General Appearance: 80 y/o female in NAD who is A&O x 3 HEENT: Head is normocephalic/atraumatic; Hearing grossly intact; Mucous membranes moist Neck: Supple; Trachea midline; Neg JVD Heart: RRR with systolic murmur Lungs: CTA in all lung hein bilaterally but diminished at bases but improving aeration at midlung bilat; still coughing with deep breaths but less compared to yesterday; Respirations unlabored; Neg accessory muscle use Abdomen: Soft, non-tender, non-distended; Positive BS x 4 quadrants Extremities: Neg cyanosis or edema Neurological: Speech clear; Gross motor/sensory function intact; Neg focal neurologic deficits Psychiatric: Appropriate mood/affect Skin: Normal Color; Warm/Dry Results & Data Results & Data ([facility]) Vital Signs (Past 12 Hours) Vital Signs Temp Pulse Resp BP Pulse Ox 04/24/21 07:29 83 19 91 04/24/21 05:45 36.8 C 67 18 197/69 H 93 04/23/21 22:26 37.0 C 66 20 165/90 H 92 PG Care Time/CCT Total # of Minutes Spent Total Time Spent with Patient: Total time spent is greater than 50% in coordination of care (as documented) at patient's floor/unit and/or counseling patient: Coding Level of Care Code 55838 Subseq Hosp Care Lvl 3 Diagnoses Pneumonia J18.9 Laterality: left Lung location: lower lobe of lung Pneumonia type: due to unspecified organism Hyponatremia E87.1 Anemia D64.9 DM (diabetes mellitus) E11.9 CAD (coronary artery disease) I25.10 Hypertension I10 Hypertension type: unspecified Hyperlipemia E78.5 DVT prophylaxis Z29.9 (1) Pneumonia Laterality: left Lung location: lower lobe of lung Pneumonia type: due to unspecified organism Qualified Code(s): J18.9 - Pneumonia, unspecified organism (2) Hypertension Hypertension type: unspecified Qualified Code(s): I10 - Essential (primary) hypertension
[2021-04-24] MEDS: cloNIDine HCL 0.1 MG TAB PO SCH (20:35)
[2021-04-24] MEDS: ASPIRIN 81 MG ECTAB PO SCH (20:36)
[2021-04-24] MEDS ORDERED: BUDESONIDE/FORMOTEROL FUMARATE 80/4.5 60 PUFFS/INHALER INH SCH (21:00)
[2021-04-24] MEDS: guaiFENesin/CODEINE 100MG/10MG 5ML UDC PO SCH (21:44)
[2021-04-25] MEDS: PIPERACILLIN/TAZOBACTAM 3.375 GM in DEXTROSE 5% 100 ML IV SCH ×3 (05:32→21:02)
[2021-04-25 07:32] LABS: Hematocrit (blood only) 24.6 % (37-47); Hemoglobin 8.3 g/dL (12.0-16.0); Mean Corpuscular Hemoglobin 28.1 pg (25-34); Mean Corpuscular Hgb Conc 33.7 g/dL (32-36); Mean Corpuscular Volume 83.4 fL (80-100); Platelet Count 549 K/uL (130-400); RDW Coefficient of Variation 13.3 % (11.5-14.5); RDW Standard Deviation 40.7 fL (36.4-46.3); Red Blood Count 2.95 M/uL (4.2-5.4)
[2021-04-25] MEDS: LEVALBUTEROL HCL 1.25 MG/3 ML NEB NEB SCH ×4 (07:36→19:36)
[2021-04-25 07:56] LABS: BUN Creatinine Ratio 21.1 (10-20); Calcium 9.1 mg/dl (8.5-10.1); Creatinine Clr Calc Pharmacy 51.3 ml/min; Est GFR (African American) 71.9 ml/min; Est GFR (Non-African American) 62.1 ml/min; Potassium 5.1 mmol/L (3.5-5.1)
[2021-04-25] MEDS: INSULIN ASPART 100 UNITS/ML 3 ML PEN SC SCH ×4 (09:21→20:57)
[2021-04-25] MEDS: ATORVASTATIN 40 MG TAB PO SCH (09:24)
[2021-04-25] MEDS: amLODIPine BESYLATE 5 MG TAB PO SCH (09:24)
[2021-04-25] MEDS: BENZONATATE 100 MG CAPSULE PO SCH ×3 (09:25→20:55)
[2021-04-25] MEDS: carvediloL 25 MG TAB PO SCH ×2 (09:25→20:55)
[2021-04-25] MEDS: DOXYCYCLINE HYCLATE 100 MG CAP PO SCH ×2 (09:26→20:55)
[2021-04-25] MEDS: ENOXAPARIN INJ 40 MG/0.4 ML SYR SQ SCH (09:26)
[2021-04-25] MEDS: FLUTICASONE/VILANTEROL 100/25MCG 14 PUFFS/INHALER INH SCH (09:27)
[2021-04-25] MEDS: lisinopril 40 MG TAB PO SCH (09:28)
[2021-04-25] MEDS: guaiFENesin 600 MG TABCR PO SCH ×2 (09:28→20:55)
[2021-04-25] MEDS: SPIRONOLACTONE 12.5 MG TAB PO SCH (09:28)
[2021-04-25] MEDS: PANTOprazole 40 MG TAB PO SCH (09:28)
[2021-04-25] MEDS: MULTIVITAMIN TAB PO SCH (09:29)
--- NOTE | 2021-04-25 13:26 | Hospitalist Progress Note ---
Date of Service April 25, 2021 Assessment & Plan (1) Pneumonia: Plan: - Presented with fever, cough, leukocytosis, and infiltrate on CXR - also with daughter recently hospitalized for pneumonia and patient had recent hospitalization for vascular procedure - Remains afebrile in the hospital; leukocytosis is resolved; procalcitonin is negative; COVID negative; MRSA nasal swab negative - Continue Zosyn; added Doxy on 04/23 for atypical coverage; Vanc D/Cd given ne gative nasal swab -- Could convert to Augmentin and Doxy to complete course on discharge - covering for gram negs given hospitalization and daughter with recent illness which she was visiting with - Continue Mucinex and cough syrup; AUNDREA nebulizers - Added Symbicort for temporary use while hospitalized - Will send Rx for albuterol inhaler for PRN use on discharge (2) Hyponatremia: Plan: - Acute on Chronic - seems average is 125-129 -- Is on diuretics - possibly worsened given pulmonary process - Continue fluid restriction - likely SIADH component - Currently at 129 and will trend (3) Anemia: Plan: - Patient is anemic but recently did have a surgical procedure which was a vascular procedure this could be anemia in the postoperative setting her indices are normal chromic normocytic - Hgb 7.6 on 04/23 but improved to 8.3 and remaining stable without intervention and will trend - vitals stable (4) DM (diabetes mellitus): Plan: - A1c 7.0 - acceptable given age - Oral medications are held - Sliding scale insulin (5) CAD (coronary artery disease): Plan: - Continues aspirin, atorvastatin, carvedilol, clonidine, amlodipine, and lisinopril (6) Hypertension: Plan: - Multiple medications. -- Med rec suggests once a day hydralazine - review of last fill from Dr. Mcpherson's office suggest this should be dosed TID which is more consistent with typical dosing- discussed with patient who states she was told to take it three times a day but had a medication list that only suggested twice a day and wasn't sure and was using it BID - Will continue Hydralazine TID given chronically elevated BPs - She is on multiple antihypertensive did have a renal artery CT angiogram December 15, 2020 which was unremarkable for significant renal artery stenosis bilateral stenosis read as 30% on that study (7) Hyperlipemia: Plan: - Continues atorvastatin 40 mg daily -- patient is a known vasculopath and recently having a femorofemoral bypass (8) DVT prophylaxis: Plan: Lovenox for DVT prevention patient has chronic kidney disease barely in the stage III range almost stage II therefore will use full dose Lovenox at this time Plan: - Continue to wean O2 as tolerated - recommend ambulation in halls may need 2 step; continue inpatient stay but suspect able to D/C in 1-2 days -- Ambulating to bathroom resulted in saturation of 88-89% compared to yesterday which was 84-85% - Plans to return home with daughter upon discharge Admission and Anticipated Discharge Date Admission Date: April 21, 2021 Subjective Reports feeling a bit better today. Still with a dry cough especially with deep breathing but improving. Having frequent BMs with laxatives. Still gets fatigued with ambulating to the bathroom but oxygen only dipped to 88-89% versus 84-85% yesterday. She is tolerating a diet. Verbalizes no new complaints. Review of Systems Review of Systems: All systems reviewed & are unremarkable except as noted in Subjective Physical Exam Physical Exam: PHYSICAL EXAM General Appearance: 80 y/o female in NAD who is A&O x 3 HEENT: Head is normocephalic/atraumatic; Hearing grossly intact; Mucous membranes moist Neck: Supple; Trachea midline; Neg JVD Heart: RRR with systolic murmur Lungs: CTA in all lung hein bilaterally but diminished at bases but improving aeration at midlung bilat; still coughing with deep breaths but less and reduces with more deep breaths; Respirations unlabored; Neg accessory muscle use Abdomen: Soft, non-tender, non-distended; Positive BS x 4 quadrants Extremities: Neg cyanosis or edema Neurological: Speech clear; Gross motor/sensory function intact; Neg focal neurologic deficits Psychiatric: Appropriate mood/affect Skin: Normal Color; Warm/Dry Results & Data Results & Data ([facility]) Vital Signs (Past 12 Hours) Vital Signs Temp Pulse Resp BP Pulse Ox 04/25/21 10:50 58 L 16 92 04/25/21 07:36 58 L 20 96 04/25/21 07:05 36.3 C L 60 18 170/65 H 96 04/25/21 02:00 175/70 H PG Care Time/CCT Total # of Minutes Spent Total Time Spent with Patient: Total time spent is greater than 50% in coordination of care (as documented) at patient's floor/unit and/or counseling patient: Coding Level of Care Code 78724 Subseq Hosp Care Lvl 3 Diagnoses Pneumonia J18.9 Laterality: left Lung location: lower lobe of lung Pneumonia type: due to unspecified organism Hyponatremia E87.1 Anemia D64.9 DM (diabetes mellitus) E11.9 CAD (coronary artery disease) I25.10 Hypertension I10 Hypertension type: unspecified Hyperlipemia E78.5 DVT prophylaxis Z29.9 (1) Hypertension Hypertension type: unspecified Qualified Code(s): I10 - Essential (primary) hypertension (2) Pneumonia Laterality: left Lung location: lower lobe of lung Pneumonia type: due to unspecified organism Qualified Code(s): J18.9 - Pneumonia, unspecified organism
[2021-04-25] MEDS: hydrALAZINE HCL 25 MG TAB PO SCH ×2 (15:07→20:55)
[2021-04-25] MEDS: ASPIRIN 81 MG ECTAB PO SCH (20:55)
[2021-04-25] MEDS: cloNIDine HCL 0.1 MG TAB PO SCH (20:55)
[2021-04-25] MEDS: guaiFENesin/CODEINE 100MG/10MG 5ML UDC PO PRN (22:06)
[2021-04-26] MEDS: PIPERACILLIN/TAZOBACTAM 3.375 GM in DEXTROSE 5% 100 ML IV SCH ×3 (06:23→21:32)
[2021-04-26] MEDS: LEVALBUTEROL HCL 1.25 MG/3 ML NEB NEB SCH ×3 (07:44→20:19)
[2021-04-26] MEDS: INSULIN ASPART 100 UNITS/ML 3 ML PEN SC SCH ×4 (08:54→21:24)
[2021-04-26] MEDS: FLUTICASONE/VILANTEROL 100/25MCG 14 PUFFS/INHALER INH SCH (08:59)
[2021-04-26] MEDS: DOXYCYCLINE HYCLATE 100 MG CAP PO SCH ×2 (09:00→21:27)
[2021-04-26] MEDS: carvediloL 25 MG TAB PO SCH ×2 (09:00→21:27)
[2021-04-26] MEDS: BENZONATATE 100 MG CAPSULE PO SCH ×3 (09:00→21:27)
[2021-04-26] MEDS: guaiFENesin 600 MG TABCR PO SCH ×2 (09:00→21:28)
[2021-04-26] MEDS: hydrALAZINE HCL 25 MG TAB PO SCH ×3 (09:00→21:28)
[2021-04-26] MEDS: ATORVASTATIN 40 MG TAB PO SCH (09:01)
[2021-04-26] MEDS: amLODIPine BESYLATE 5 MG TAB PO SCH (09:01)
[2021-04-26] MEDS: SPIRONOLACTONE 12.5 MG TAB PO SCH (09:01)
[2021-04-26] MEDS: lisinopril 40 MG TAB PO SCH (09:01)
[2021-04-26] MEDS: MULTIVITAMIN TAB PO SCH (09:01)
[2021-04-26] MEDS: ENOXAPARIN INJ 40 MG/0.4 ML SYR SQ SCH (09:02)
[2021-04-26 09:40] LABS: Basophils # (auto) 0.02 K/uL (0-0.2); Basophils % (auto) 0.3 %; Eosinophils # (auto) 0.27 K/uL (0-0.5); Eosinophils % (auto) 3.7 %; Hematocrit (blood only) 22.9 % (37-47); Hemoglobin 7.8 g/dL (12.0-16.0); Immature Granulocytes # (auto) 0.02 K/uL (0.00-0.02); Immature Granulocytes % (auto) 0.3 %; Mean Corpuscular Hemoglobin 28.7 pg (25-34); Mean Corpuscular Hgb Conc 34.1 g/dL (32-36); Mean Corpuscular Volume 84.2 fL (80-100); Mean Platelet Volume 9.2 fL (7.4-10.4); Monocytes # (auto) 0.55 K/uL (0.11-0.59); Monocytes % (auto) 7.5 %; Neutrophils # (auto) 5.38 K/uL (1.4-6.5); Neutrophils % (auto) 73.2 %; Platelet Count 490 K/uL (130-400); RDW Coefficient of Variation 13.7 % (11.5-14.5); Red Blood Count 2.72 M/uL (4.2-5.4); White Blood Count 7.34 K/uL (4.8-10.8)
[2021-04-26 10:02] LABS: BUN Creatinine Ratio 19.9 (10-20); Calcium 9.3 mg/dl (8.5-10.1); Creatinine Clr Calc Pharmacy 47.6 ml/min; Est GFR (African American) 65.7 ml/min; Est GFR (Non-African American) 56.6 ml/min; Magnesium 1.9 mg/dl (1.8-2.4); Potassium 4.7 mmol/L (3.5-5.1)
[2021-04-26 10:13] LABS: Acanthocytes 1+; Polychromasia 1+
[2021-04-26] MEDS ORDERED: LEVALBUTEROL HCL 1.25 MG/3 ML NEB NEB PRN (10:19)
[2021-04-26] MEDS ORDERED: FUROSEMIDE INJ 20 MG/2 ML VIAL IV ONE ×2 (10:21→16:00)
[2021-04-26] MEDS ORDERED: methylPREDNISolone 125 MG in SYRINGE 0 ML IV STA (10:28)
[2021-04-26] MEDS: FORMOTEROL 20 MCG/2 ML VIAL NEB SCH ×2 (11:45→20:18)
[2021-04-26] MEDS: BUDESONIDE 0.5 MG/2 ML VIAL (PULMICORT) NEB SCH ×2 (11:45→20:18)
--- NOTE | 2021-04-26 11:55 | XRay Report ---
XR chest 1V portable CLINICAL HISTORY: presumed CHF COMPARISON STUDY: Chest radiograph April 21, 2021. FINDINGS: There is no pneumothorax. Small left and trace right pleural effusions have developed. Card iomegaly is noted. There is interstitial thickening and asymmetric left lung airspace opacity. Findin gs have slightly progressed. IMPRESSION: 1. Progression of asymmetric left lung airspace opacities and interstitial thickening. The findings m ay reflect an infectious process or asymmetric pulmonary edema. 2. Small left and trace right pleural effusions. ACT 112: Negative or not required by law. Electronically signed by: Levy Farah M.D. 04/26/2021 11:54 AM
--- NOTE | 2021-04-26 12:54 | CT Scan Report ---
CT OF THE CHEST WITHOUT IV CONTRAST CLINICAL HISTORY: help differentiate PNA vs chf COMPARISON STUDY: Chest radiographs April 21, 2021 and April 26, 2021. CT DOSE: 542.86 mGy.cm TECHNIQUE: Axial images of the chest were obtained without IV contrast. Images were reviewed in the axial, sagittal, and coronal planes. IV contrast was not administered for this examination. Automat ed exposure control was utilized for the study. A dose lowering technique was utilized adhering to t he principles of ALARA. FINDINGS: There is no pneumothorax. Small bilateral pleural effusions, left larger than right, are n oted. Mild cardiomegaly is noted. There is extensive coronary artery calcification. No pericardial ef fusion is present. No pathologically enlarged thoracic lymph nodes are present. Central airways are p atent. Interlobular septal thickening represents interstitial pulmonary edema. Moderate left upper lo be multifocal airspace opacities are present. There are mild additional airspace opacities within the lungs, including a 1.2 cm subpleural opacity within the right upper lobe on axial image 109 of 251. There is a 7 mm solid noncalcified left lower lobe nodule on image 120. No acute fracture or suspicio us lesion is identified within visualized portions of the bony fragments. Extensive atherosclerotic p laque within the proximal abdominal aorta/branch vessels is partially imaged. This was shown on prior CTA. IMPRESSION: 1. Interlobular septal thickening consistent with interstitial pulmonary edema. Subtle ground glass o pacities within lungs favor alveolar pulmonary edema. 2. Moderate multifocal left upper lobe airspace opacities. These favor superimposed pneumonia. Asymme tric pulmonary edema could appear similar but is considered less likely. 3. 7 mm solid noncalcified left lower lobe pulmonary nodule. This is probably benign however a follow -up chest CT in 6 months to ensure stability is recommended. Bilateral airspace opacities can't be as sessed on follow-up CT to ensure resolution. 4. Small bilateral pleural effusions, left larger than right. ACT 112: Negative or not required by law. Electronically signed by: Levy Farah M.D. 04/26/2021 12:53 PM
[2021-04-26 14:15] LABS: Hematocrit (blood only) 25.8 % (37-47); Hemoglobin 8.4 g/dL (12.0-16.0)
[2021-04-26 14:41] LABS: Ferritin 97.2 ng/ml (8-388)
--- NOTE | 2021-04-26 14:57 | Hospitalist Progress Note ---
Date of Service April 26, 2021 Assessment & Plan (1) Pneumonia: Plan: - presented to the ED on 04/21 with fever (at home), progressive cough and lethargy - W/U in the ED showed leukocytosis of 16.21 but she was afebrile and HD stable nad her CXR showed left airspace Dz - she was not hypoxic at rest but did desaturate to 84% with minimal exertion - hospitalized and started on Zosyn (for HCAP given recent hospitalization for fem-fem bypass 04/04 - 04/07) and Vancomycin - Vancomycin was then transitioned to Doxycycline for atypical coverage (for CAP) - her WBC has since normalized - she has shown favorable response - Continue mucolytic agents and nebulized treatments - 04/26: is noted to be slightly bronchospastic (which would be related to volume overload) but transition inhalers to aggressive pulmonary toilette and give 1 dose IV solu-medrol today +/- oral prednisone to start tomorrow based on response. (2) Volume overload: Plan: - repeat CXR done and inconclusive - CT done showing improved airspace disease and instertitial edema - has reported h/o CHF but NOT on lasix/Bumex routinely (does take aldactone) - given lasix 20mg q6h x2 doses with FU doses pending response - On disease modifying agents: BB, hydralazine, ACEI - update echocardiogram to assess LV function - monitor I&D and daily weights (3) Hyponatremia: Plan: - 129 initially--> suspected to be hypervolemic hyponatremia - improved with 1 dose lasix - currently 138 - continue to trend (4) Anemia: Plan: - new (compared to old labs--> 11.2 beginning of this month) - has been hovering in the 8's since this admission. - likely multifactorial (dilutional, recent endovascular surgery, multiple labs draws) - 7.8 this am - likely multifactorial but may be exacerbated from hypervolemic state (dilutional) - Lasix given this am and FU hgb improved-- 8.4 - will obtain anemia W/U (iron studies, fecal occult blood, B12, folate) - continue ASA (given PAD and recent fem-fem bypass but hold further lovenox - add Protonix for GI prophylaxis (which is okay given improvement in PNA) (5) PAD (peripheral artery disease): Plan: - s/p fem-fem bypass 04/04 - continue ASA, statin therapy (6) Pulmonary nodule: Plan: - noted on CT. will need repeat imaging in 6 months (7) CAD (coronary artery disease): Plan: - no evidence of ACS - continue ASA, statin, BB as prior to hospitalization (8) Type 2 diabetes mellitus with diabetic neuropathy, unspecified: Plan: - continue to monitor BS closely (elda given the addition of steroids) and provide SS coverage as needed - Metformin and Amaryl on hold (9) Hypertension: Plan: - continue lisinopril, aldactone, clonidine, norvasc, hydralazine and coreg as prior to hospitalization Plan: Plan of care to be discussed with Dr. Casiano Admission and Anticipated Discharge Date Admission Date: April 21, 2021 Subjective Patient seen on daily rounds today. Overall continues to show favorable response. No longer requiring supplemental oxygen. Denies shortness of breath at rest but still getting dyspneic with minimal exertion such as toileting. Is sleeping with the head of her bed elevated slightly (which is not usual for patient). She denies paroxysmal nocturnal dyspnea. She does have a cough that is dry. Denies fevers or chills. Is reporting increased swelling in her legs bilaterally (right >left). Nursing voices no complaints or concerns. Review of Systems Review of Systems: All systems reviewed and are unremarkable except as noted in HPI and below Denies fevers, chills, headache, nasal congestion, sore throat, cough, chest pain, palpitations, PND, abdominal pain, nausea, vomiting, diarrhea, con stipation, dysuria, hematuria, frequency, back pain, joint pain, easy bruising or bleeding, skin lesions or rashes. Physical Exam Physical Exam: General: Resting comfortably in her hospital bed at bedside. NAD. HEENT: Head is AT/NC buccal mucosa is moist and pink Neck: No significant JVD but does have mild hepatojugular reflex Cardiac: RRR with 2/6 IVELISSE Lungs: Mild conversational dyspnea without accessory muscle use or labored breathing. Diminished breath sounds throughout with mid to end expiratory wheezes and bibasilar crackles. Abdomen: Normoactive X4. Soft and nontender in all quadrants. Extremities: +1 to 2+ pitting edema of the RLE. trace to +1 pitting edema of the LLE Neuro: A&O X4 cranial nerves II through XII are grossly intact no focal neuro deficits Skin: No obvious skin lesions or rashes Psych: Appropriate affect pleasant and cooperative Results & Data Results & Data ([facility]) Vital Signs (Past 12 Hours) Vital Signs Temp Pulse Resp BP Pulse Ox 04/26/21 13:10 64 18 166/69 H 92 04/26/21 11:48 80 18 93 04/26/21 07:57 36.3 C L 64 22 171/73 H 98 04/26/21 07:48 75 18 92 Laboratory Results H/H this am: 7.8/22.9--> repeated this afternoon: 04/26/21 14:02 04/26/21 09:31 Diagnostic Findings FU CXR done: IMPRESSION: 1. Progression of asymmetric left lung airspace opacities and interstitial thickening. The findings may reflect an infectious process or asymmetric pulmonary edema. 2. Small left and trace right pleural effusions CT of the chest one to differentiate: IMPRESSION: 1. Interlobular septal thickening consistent with interstitial pulmonary edema. Subtle ground glass opacities within lungs favor alveolar pulmonary edema. 2. Moderate multifocal left upper lobe airspace opacities. These favor superimposed pneumonia. Asymmetric pulmonary edema could appear similar but is considered less likely. 3. 7 mm solid noncalcified left lower lobe pulmonary nodule. This is probably benign however a follow-up chest CT in 6 months to ensure stability is recommended. Bilateral airspace opacities can't be assessed on follow-up CT to ensure resolution. 4. Small bilateral pleural effusions, left larger than right.. PG Care Time/CCT Total # of Minutes Spent Total Time Spent with Patient: Total time spent is greater than 50% in coordination of care (as documented) at patient's floor/unit and/or counseling patient: Coding Level of Care Code 67867 Subseq Hosp Care Lvl 3 Diagnoses Pneumonia J18.9 Laterality: left Lung location: lower lobe of lung Pneumonia type: due to unspecified organism Volume overload E87.70 Hyponatremia E87.1 Anemia D64.9 PAD (peripheral artery disease) I73.9 CAD (coronary artery disease) I25.10 Type 2 diabetes mellitus with diabetic neuropathy, unspecified E11.40 Hypertension I10 Hypertension type: unspecified Pulmonary nodule R91.1 (1) Hypertension Hypertension type: unspecified Qualified Code(s): I10 - Essential (primary) hypertension (2) Pneumonia Laterality: left Lung location: lower lobe of lung Pneumonia type: due to unspecified organism Qualified Code(s): J18.9 - Pneumonia, unspecified organism
[2021-04-26 15:14] LABS: Folate (Folic Acid) > 20.00 ng/ml (>5.38); Vitamin B12 1273 pg/ml (193-986)
--- NOTE | 2021-04-26 19:20 | XCELERA ---
[id number]
[2021-04-26] MEDS: cloNIDine HCL 0.1 MG TAB PO SCH (21:27)
[2021-04-26] MEDS: PANTOprazole 40 MG TAB PO SCH (21:32)
[2021-04-26] MEDS ORDERED: METOPROLOL TARTRATE 50 MG TAB PO STA (22:30)
--- NOTE | 2021-04-26 22:30 | Communication Note ---
Date of Service: April 26, 2021 Notified by nursing that patient was having episodes of "chest fluttering" and was found to be tachycardic in the 130-140's. EKG completed showed afib with rvr rate 139, in addition to T wave inversions in I, II, aVL in addition to concerns for ST depression in V3-V6 which appear new related to last EKG. Patient evaluated noting that she feels her heart beating rapidly, but otherwise denies any chest pressure, chest pain, or SOB at rest. Denies any history of atrial fibrillation. -Will draw for CBC, BMP, Mag, and troponin given EKG changes -Suspect the EKG changes are more rate related, will obtain a repeat once HR is more controlled OR if patient develops chest pain -Transfer patient to PCU for continuous cardiac monitoring -Given 50mg Metoprolol tartrate PO while on the floor -5 mg IV Lopressor x2 given once on monitor -Patient physically exams as relatively dry too. While patient did come in with overload, her Echo today did show EF >70% which was hyperdynamic -Will give patient 250ml NSS bolus, will consider another 250mL if no improvement -If above therapies do not reduce rate, will consider Cardizem gtt -Will also discontinue Mucinex at this time as it may precipitate atrial fibrillation at high doses
[2021-04-26] MEDS ORDERED: METOPROLOL TARTRATE 1 MG/ML VIAL IV ONE (23:01)
[2021-04-26] MEDS: METOPROLOL TARTRATE 1 MG/ML VIAL IV STA (23:10)
[2021-04-26 23:28] LABS: Hematocrit (blood only) 27.1 % (37-47); Hemoglobin 8.9 g/dL (12.0-16.0); Immature Granulocytes # (auto) 0.08 K/uL (0.00-0.02); Immature Granulocytes % (auto) 0.8 %; Lymphocytes # (auto) 0.56 K/uL (1.2-3.4); Lymphocytes % (auto) 5.4 %; Mean Corpuscular Hemoglobin 27.8 pg (25-34); Mean Corpuscular Volume 84.7 fL (80-100); Mean Platelet Volume 9.4 fL (7.4-10.4); Monocytes # (auto) 0.21 K/uL (0.11-0.59); Neutrophils # (auto) 9.54 K/uL (1.4-6.5); Neutrophils % (auto) 91.8 %; Nucleated RBC # (auto) 0.02 K/uL (0-0); Nucleated RBC % (auto) 0.2 %; Platelet Count 614 K/uL (130-400); RDW Coefficient of Variation 13.7 % (11.5-14.5); RDW Standard Deviation 42.3 fL (36.4-46.3); White Blood Count 10.39 K/uL (4.8-10.8)
[2021-04-26] MEDS ORDERED: SODIUM CHLORIDE 0.9% 1000ML 250 ML IV ONE (23:37)
[2021-04-26 23:46] LABS: BUN Creatinine Ratio 18.4 (10-20); Blood Urea Nitrogen 26 mg/dl (7-18); Calcium 9.6 mg/dl (8.5-10.1); Carbon Dioxide 29 mmol/L (21-32); Chloride 98 mmol/L (98-107); Creatinine Clr Calc Pharmacy 32.4 ml/min; Est GFR (African American) 41.3 ml/min; Est GFR (Non-African American) 35.6 ml/min; Glucose 292 mg/dl (70-99); Magnesium 1.7 mg/dl (1.8-2.4); Potassium 4.1 mmol/L (3.5-5.1); Sodium 131 mmol/L (136-145)
[2021-04-26 23:51] LABS: Troponin I < 0.015 ng/ml (0-0.045)
[2021-04-26] MEDS ORDERED: MAGNESIUM SULFATE / D5W 1 GM/100 ML BAG IV ONE (23:52)
[2021-04-26] MEDS ORDERED: STAT IV Infusion **Titration per Protocol STA (23:58)
[2021-04-27 00:16] LABS: Mean Corpuscular Hgb Conc 32.8 g/dL (32-36)
[2021-04-27] MEDS: LEVALBUTEROL HCL 1.25 MG/3 ML NEB NEB SCH ×2 (00:53→07:41)
[2021-04-27] MEDS: dilTIAZem HCL 125 MG in DEXTROSE 5% 100 ML IV SCH ×6 (01:04→23:04)
[2021-04-27] MEDS ORDERED: METOPROLOL TARTRATE 1 MG/ML VIAL IV STA (01:51)
[2021-04-27] MEDS: guaiFENesin/CODEINE 100MG/10MG 5ML UDC PO PRN (02:07)
[2021-04-27 04:47] LABS: Hematocrit (blood only) 23.9 % (37-47); Hemoglobin 7.9 g/dL (12.0-16.0); Mean Corpuscular Hemoglobin 27.9 pg (25-34); Mean Corpuscular Hgb Conc 33.1 g/dL (32-36); Mean Corpuscular Volume 84.5 fL (80-100); Mean Platelet Volume 9.4 fL (7.4-10.4); Platelet Count 550 K/uL (130-400); RDW Coefficient of Variation 13.7 % (11.5-14.5); RDW Standard Deviation 42.4 fL (36.4-46.3); Red Blood Count 2.83 M/uL (4.2-5.4); White Blood Count 13.85 K/uL (4.8-10.8)
[2021-04-27 05:12] LABS: Albumin Level 2.3 gm/dl (3.4-5.0); BUN Creatinine Ratio 21.9 (10-20); Calcium 9.1 mg/dl (8.5-10.1); Creatinine Clr Calc Pharmacy 36.5 ml/min; Est GFR (African American) 47.7 ml/min; Est GFR (Non-African American) 41.2 ml/min; Potassium 4.1 mmol/L (3.5-5.1)
[2021-04-27 05:29] LABS: Albumin Globulin Ratio 0.6 (0.9-2); Bilirubin,Total 0.4 mg/dl (0.2-1); Globulin 4.1 gm/dl (2.5-4.0); Total Protein 6.4 gm/dl (6.4-8.2); Troponin I 0.17 ng/ml (0-0.045)
[2021-04-27] MEDS: BUDESONIDE 0.5 MG/2 ML VIAL (PULMICORT) NEB SCH ×2 (07:37→19:30)
[2021-04-27] MEDS: FORMOTEROL 20 MCG/2 ML VIAL NEB SCH ×2 (07:41→19:30)
--- NOTE | 2021-04-27 07:42 | Electrocardiogram Report ---
Test Reason : Blood Pressure : / mmHG Vent. Rate : 139 BPM Atrial Rate : 141 BPM P-R Int : 000 ms QRS Dur : 094 ms QT Int : 290 ms P-R-T Axes : 000 004 182 degrees QTc Int : 441 ms Atrial fibrillation with rapid ventricular response Marked ST abnormality, possible inferior subendocardial injury Marked ST abnormality, possible anterolateral subendocardial injury Abnormal ECG Confirmed by Dillon Otero ([id number]) on 04/27/2021 7:41:32 AM Referred By: REFERRED SELF Confirmed By:Renato Otero
--- NOTE | 2021-04-27 07:43 | Electrocardiogram Report ---
Test Reason : Blood Pressure : / mmHG Vent. Rate : 093 BPM Atrial Rate : 060 BPM P-R Int : 000 ms QRS Dur : 100 ms QT Int : 346 ms P-R-T Axes : 000 014 152 degrees QTc Int : 430 ms Atrial fibrillation Abnormal ECG When compared with ECG of 26-APR-2021 22:20, (unconfirmed) Vent. rate has decreased BY [address] no longer depressed in Anterior leads T wave inversion no longer evident in Inferior leads T wave inversion less evident in Lateral leads Confirmed by Dillon Otero ([id number]) on 04/27/2021 7:43:34 AM Referred By: REFERRED SELF Confirmed By:Renato Otero
[2021-04-27] MEDS ORDERED: ENOXAPARIN 80 MG/0.8 ML SYR SQ SCH (07:45)
[2021-04-27] MEDS ORDERED: DIGOXIN 250 MCG in SYRINGE 9 ML IV STA (07:47)
[2021-04-27] MEDS: PIPERACILLIN/TAZOBACTAM 3.375 GM in DEXTROSE 5% 100 ML IV SCH ×3 (08:08→21:08)
[2021-04-27] MEDS: INSULIN ASPART 100 UNITS/ML 3 ML PEN SC SCH ×4 (08:09→21:08)
[2021-04-27] MEDS: MULTIVITAMIN TAB PO SCH (08:10)
[2021-04-27] MEDS: DOXYCYCLINE HYCLATE 100 MG CAP PO SCH ×2 (08:10→21:07)
[2021-04-27] MEDS: PANTOprazole 40 MG TAB PO SCH ×2 (08:10→21:07)
[2021-04-27] MEDS: ATORVASTATIN 40 MG TAB PO SCH (08:10)
[2021-04-27] MEDS: ASPIRIN 81 MG ECTAB PO SCH (08:10)
[2021-04-27] MEDS: SPIRONOLACTONE 12.5 MG TAB PO SCH (08:10)
[2021-04-27] MEDS: carvediloL 25 MG TAB PO SCH ×2 (08:10→21:07)
[2021-04-27] MEDS: BENZONATATE 100 MG CAPSULE PO SCH ×3 (08:11→21:08)
[2021-04-27] MEDS ORDERED: guaiFENesin 600 MG TABCR PO SCH (09:00)
[2021-04-27] MEDS ORDERED: predniSONE 20 MG TAB PO SCH (09:00)
[2021-04-27] MEDS ORDERED: Heparin IV Adult Wt-Based Standard *NO* Bolus Protocol IV SCH (12:35)
--- NOTE | 2021-04-27 12:42 | Hospitalist Progress Note ---
Date of Service April 27, 2021 Assessment & Plan (1) Atrial fibrillation with RVR: Plan: - new onset of A.fib with RVR - already on max dose BB (routinely) - on cardizem Gtt 15mg/hr-- HR still 130's with marginal hypotension - given 1 dose IV digoxin (250mcg) and HR currently improved (70-90's). BP much better (140-150 systolic). Oral Antihypertensive agents were held ACEI/Hydralazine/Clonidine) - plan is for 2 subsequent doses of digoxin today (125mcg IV q6x2)-- using 50% reduced dose of dig load given age and Cr.Cl of 36 - continue cardizem gtt - electrolytes WNL - troponin uptrending-- 0.170-->1.120 and mild ischemia changes on EKG. ? rate related vs NSTEMI (see below) - start heparin gtt (as opposed to lovenox given anemia) - consult cardiology-- appreciate recommendations (2) NSTEMI (non-ST elevated myocardial infarction): Plan: - troponin 0.170--> 1.120 - ischemic changes on EKG, however, these could be rate related - ? NSTEMI vs type II event from demand ischemia - patient does have h/o CAD (cardiac cath 2019: LAMONTE to Proximal RCA, LAD with mid 20-30% stenosis, RCA with distal 40-50% stenosis) - patient on ASA - again, start heparin gtt - add topical nitropaste (for vasodilation/preload reduction) as BP much improved - consult cardiology-- appreciate recommendations (3) Anemia: Plan: - new (compared to old labs--> 11.2 beginning of this month) - has been hovering in the 8's since this admission. - likely multifactorial (dilutional, recent endovascular surgery, multiple labs draws) - Hgb 7.9 today - seemed hypervolumeic yesterday-- this was thought to be playing a role (dilutional) - will transfuse 2U blood (as she will benefit from the O2 carrying capacity of blood) - again, does not seem to be exsanguinating at this time. On heparin (over lovenox) as can be shut off should she become HD unstable and her H/H gtt (but need to get baseline closer to 10 given the elevated troponin) - premedicate with benadryl/APAP and lasix 20U between units - continue protonix (which was started yesterday) empirically (4) Pneumonia: Plan: - presented to the ED on 04/21 with fever (at home), progressive cough and lethargy - W/U in the ED showed leukocytosis of 16.21 but she was afebrile and HD stable nad her CXR showed left airspace Dz - she was not hypoxic at rest but did desaturate to 84% with minimal exertion - hospitalized and started on Zosyn (for HCAP given recent hospitalization for fem-fem bypass 04/04 - 04/07) and Vancomycin - Vancomycin was then transitioned to Doxycycline for atypical coverage (for CAP) - her WBC has since normalized - she has shown favorable response - Continue mucolytic agents and nebulized treatments - 04/26: was noted to be slightly bronchospastic (which would be related to volume overload) but transition inhalers to aggressive pulmonary toilette and give 1 dose IV solu-medrol. 04/27 gone today-- likely was volume overload. NO additional steroids as this will exacerbate tachycardia - neb treatments on board (but utilizing Xopenex over albuterol as to not further exacerbate tachycardia) (5) Volume overload: Plan: - repeat CXR done and inconclusive - CT done showing improved airspace disease and instertitial edema - has reported h/o CHF but NOT on lasix/Bumex routinely (does take aldactone) - given lasix 20mg q6h x2 doses with adequate response - On disease modifying agents: BB, hydralazine, ACEI (hydaralzine and ACEI currently on hold given marginal hypotension this am) - update echocardiogram to assess LV function: hyperdynamic. no RWMA) - continue to monitor I&D and daily weights (6) Hyponatremia: Plan: - 129 initially--> suspected to be hypervolemic hyponatremia - improved with lasix - currently 138 - continue to trend (7) LEV (acute kidney injury): Plan: - creatinine 1.2 today - could be hypoperfusion from a.fib with RVR and marginal hypotension - continue to trend (8) PAD (peripheral artery disease): Plan: - s/p fem-fem bypass 04/04 - continue ASA, statin therapy (9) Pulmonary nodule: Plan: - noted on CT. will need repeat imaging in 6 months (10) CAD (coronary artery disease): Plan: - see above - continue ASA, statin, BB as prior to hospitalization (11) Type 2 diabetes mellitus with diabetic neuropathy, unspecified: Plan: - continue to monitor BS closely (elda given the addition of steroids) and provide SS coverage as needed - Metformin and Amaryl on hold (12) Hypertension: Plan: - as reported above-- hold lisinopril, clonidine, norvasc, hydralazine. continue Coreg. Plan: Plan of care to be discussed with Dr. Casiano Admission and Anticipated Discharge Date Admission Date: April 21, 2021 Subjective Patient seen on daily round today. Last evening, developed cardiac awareness/palpitations and noted to go into A.Fib with RVR. She does NOT have a h/o A.Fib in the past. Was on lovenox for DVT prophylaxis and on routine ASA up until lastnight. Lovenox was stopped given her anemia (exact etiology was unclear) but ASA continued given recent fem-fem bypass-- done 04/04 She was given IV lopressor 5mg x2 (and is on max dose coreg) Subsequently required Cardizem gtt (following a bolus). HR remained 130's and in A.Fib BP was marginal this am (90-100 systolic) given Digoxin 250mcg IV x 1 dose. Remains in a.fib but HR controlled (70-80) Troponin uptrending (0.170 --> 1.120). Denies CP. No CP. Review of Systems Review of Systems: c/o dizziness, cardiac awareness/palpitations. All systems reviewed and are unremarkable except as noted in HPI and below Denies fevers, chills, headache, nasal congestion, sore throat, cough, chest pain, shortness of breath, palpitations, orthopnea, PND, abdominal pain, nausea, vomiting, diarrhea, constipation, dysuria, hematuria, frequency, back pain, joint pain or swelling, easy bruising or bleeding, skin lesions or rashes. Physical Exam Physical Exam: General: Resting comfortably in her hospital bed. NAD. HEENT: Head is AT/NC buccal mucosa is moist and pink Neck: No JVD. Negative hepatojugular reflex Cardiac: irreg irregwith 2/6 IVELISSE Lungs: no conversational dyspnea. Speaking full sentences without labored breathing. Good air exchange throughout without W/R/R Abdomen: Normoactive X4. Soft and nontender in all quadrants. Extremities: right leg edema (trace). no pitting edema of the left leg. Neuro: A&O X4 cranial nerves II through XII are grossly intact no focal neuro deficits Skin: No obvious skin lesions or rashes Psych: Appropriate affect pleasant and cooperative Results & Data Results & Data ([facility]) Vital Signs (Past 12 Hours) Vital Signs Temp Pulse Pulse Resp BP BP Pulse Ox 04/27/21 12:20 36.6 C 77 16 142/73 H 95 04/27/21 10:00 80 20 94 04/27/21 09:00 98 H 26 H 107/81 04/27/21 08:11 121 H 04/27/21 08:00 36.9 C 113 H 29 H 93 04/27/21 07:39 125 H 20 92 04/27/21 07:00 96 H 27 H 92 04/27/21 06:30 130 H 110/66 04/27/21 06:00 87 114/79 04/27/21 05:30 110 H 104/87 04/27/21 05:00 115 H 129/70 04/27/21 04:30 141 H 101/70 04/27/21 04:00 104 H 17 111/58 L 92 04/27/21 03:45 103 H 13 93 04/27/21 03:30 134 H 18 97 04/27/21 03:15 95 H 16 123/77 90 04/27/21 03:00 109 H 17 96 04/27/21 02:45 134 H 17 124/74 92 04/27/21 02:30 125 H 18 106/65 92 04/27/21 02:15 144 H 22 94 04/27/21 02:00 145 H 20 95 04/27/21 01:23 138 H 103/61 Diagnostic Findings 04/27/21 04:32 04/27/21 04:32 Medications Administered EKG: A.Fib with RVR. ? interioral/lateral ischemia ekg monitor at present- A.Fib at 70-80BMP PG Care Time/CCT Total # of Minutes Spent Total Time Spent with Patient: Total time spent is greater than 50% in coordination of care (as documented) at patient's floor/unit and/or counseling patient: Prolonged Care Time 60 Coding Level of Care Code 13050 Subseq Hosp Care Lvl 3 Diagnoses Pneumonia J18.9 Laterality: left Lung location: lower lobe of lung Pneumonia type: due to unspecified organism Volume overload E87.70 Hyponatremia E87.1 Anemia D64.9 PAD (peripheral artery disease) I73.9 Pulmonary nodule R91.1 CAD (coronary artery disease) I25.10 Type 2 diabetes mellitus with diabetic neuropathy, unspecified E11.40 Hypertension I10 Hypertension type: unspecified Atrial fibrillation with RVR I48.91 NSTEMI (non-ST elevated myocardial infarction) I21.4 LEV (acute kidney injury) N17.9 (1) Hypertension Hypertension type: unspecified Qualified Code(s): I10 - Essential (primary) hypertension (2) Pneumonia Laterality: left Lung location: lower lobe of lung Pneumonia type: due to unspecified organism Qualified Code(s): J18.9 - Pneumonia, unspecified organism
[2021-04-27] MEDS ORDERED: HEPARIN SODIUM/DEXTROSE 25,000 UNITS/500 ML BAG IV SCH (13:00)
[2021-04-27] MEDS ORDERED: SODIUM CHLORIDE 0.9% 250 ML IV PRN (13:15)
[2021-04-27] MEDS ORDERED: ACETAMINOPHEN 325 MG TAB PO ONE (13:15)
[2021-04-27] MEDS ORDERED: diphenhydrAMINE Capsule 25 MG CAP PO ONE (13:15)
[2021-04-27] MEDS ORDERED: FUROSEMIDE INJ 20 MG/2 ML VIAL IV SCH (13:30)
--- NOTE | 2021-04-27 13:38 | Cardiology Consultation ---
Date of Consultation April 27, 2021 Assessment & Plan (1) Atrial fibrillation with RVR: (2) NSTEMI (non-ST elevated myocardial infarction): (3) CAD (coronary artery disease): 1. Atrial fibrillation: Persistent. Likely related to her age and longstanding hypertension. Initially she was quite symptomatic with elevated ventricular rates. With better rate control she does not seem bothered by the arrhythmia. Hopefully she will convert back to sinus within the next 24 hours. She does have some brief pauses on carvedilol and diltiazem infusion. She did receive 1 dose of digoxin earlier today. With return to sinus rhythm will have a better understanding of how aggressive we can be with her rate control agents. She appears to have preserved LV systolic function and adding diltiazem in place of amlodipine may be an option for rate control. Alternatively, we could adopt a rhythm control strategy in the hopes of preventing additional episodes. She certainly had evidence of ischemia with high ventricular rates. She has been placed on therapeutic heparin. At some point we should consider transitioning her to oral anticoagulation. 2. Coronary artery disease: She had a prior intervention in the right coronary artery. She was noted at that time to have residual disease in other vessels. This is likely progressed. While she did not endorse symptoms of exertional chest pain leading up to her admission, she certainly had evidence of ischemia with high ventricular rates. Will continue her beta-blockade, aspirin and high- dose atorvastatin. With adequate rate control and possibly rhythm control we can hopefully avoid additional episodes of high ventricular rates. 3. Valvular heart disease: Moderate aortic stenosis and moderate mitral regurgitation. Not likely causing symptoms at this time. History of Present Illness Reason for Consultation: Atrial fibrillation Requesting Physician: Stephenie Attending Physician: Gurwinder Casiano MD History of Present Illness The patient is a 80-year-old woman with a history of peripheral vascular disease and coronary artery diseasewho recently underwent fem-fem bypass for nonhealing lesion on her right foot. Over the several days leading up to her admission the patient reported symptoms of coughing and subjective fevers. This was accompanied by lethargy. She was admitted and treated for pneumonia. The patient's symptoms appear to be improving. Last evening she developed the acute onset of breathing difficulty and palpitations. She was discovered to have an elevated heart rate in EKG documented atrial fibrillation associated rapid ventricular response. The patient was placed on telemetry and started on a diltiazem infusion. Her symptoms have improved over the course of the evening. Currently she is feeling well. She states that her breathing is at her baseline. She is not currently aware of any palpitations. She did not describe overt chest discomfort with this episode. Patient states that since her bypass she has been ambulatory. She did not report symptoms of limiting dyspnea or exertional chest discomfort. Patient did undergo coronary angiography in 2019. This was in the setting of an NSTEMI and required percutaneous intervention to the right coronary artery. Allergies Allergy/AdvReac Type Severity Reaction Status Date / Time fenofibrate AdvReac Intermediate INCREASED Verified 04/21/21 13:10 URINATION metoprolol AdvReac Intermediate VOMIT,DIARR Verified 04/21/21 13:10 HEA verapamil AdvReac Intermediate INCREASED Verified 04/21/21 13:10 URINATION valsartan AdvReac Mild Weakness Verified 04/21/21 13:10 Home Medications Medication Instructions Recorded Confirmed Type aspirin 81 mg tablet,delayed 81 mg PO HS 03/04/20 04/21/21 History release carvedilol 25 mg tablet 25 mg PO BID 03/04/20 04/21/21 History clonidine HCl 0.1 mg tablet 0.1 mg PO HS 03/04/20 04/21/21 History glimepiride 4 mg tablet 4 mg PO BID 03/04/20 04/21/21 History metformin 500 mg tablet,extended 1,000 mg PO BIDM 03/04/20 04/21/21 History release 24 hr coenzyme Q10 100 mg capsule 100 mg PO QAM 12/01/20 04/21/21 History (CoQ-10) fish, borage, flaxseed oils-omega 1 cap PO QDD 12/01/20 04/21/21 History 3,6,9 comb no.1 1,200 mg capsule ([place] 3-6-9) lisinopril 40 mg tablet (Zestril) 40 mg PO QAM 12/01/20 04/21/21 History potassium chloride 10 mEq 10 meq PO DAILY PRN 12/01/20 04/21/21 History tablet,extended release amlodipine 10 mg tablet 10 mg PO QAM 02/26/21 04/21/21 History atorvastatin 40 mg tablet 40 mg PO QAM 02/26/21 04/21/21 History hydralazine 25 mg tablet 25 mg PO QAM 02/26/21 04/21/21 History multivitamin 1 tab PO QAM 02/26/21 04/21/21 History spironolactone 25 mg tablet 12.5 mg PO QAM 02/26/21 04/21/21 History axtcvaghm-EHY-FW-acetaminophen 7.5 30 ml PO DIRECTED PRN 04/21/21 04/21/21 History mg-60 [id number]/30mL oral liqd Patient History Medical History CAD (coronary artery disease) CVA (cerebral vascular accident) (~2019) no deficits Hyperlipemia Hypertension Myocardial infarct, old follows with Dr. Mcpherson PAD (peripheral artery disease) Pneumonia hx S/P angiogram of extremity (02/02/21) Type 2 diabetes mellitus with diabetic neuropathy, unspecified NIDDM Surgical History H/O removal of cyst right abdominal area History of bunionectomy of right great toe History of cardiac cath (~2018) History of heart artery stent (~2019) x1. at [facility]. 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 Mood affect appear normal. She answered all questions appropriately. HEENT: Sclerae are anicteric. Pupils are equal and reactive to light and accommodation. Extraocular movements were intact. Neuro: Cranial nerves intact Neck: Examination of the submandibular region did not reveal any significant lymphadenopathy. Carotids are palpable bilaterally and free of bruits on auscultation. There was no evidence of jugular venous distention. The thyroid was not enlarged. Lungs: Lungs are clear to auscultation bilaterally. There are no rales wheezes or rhonchi. She has normal respiratory effort without use of accessory muscles. There is normal pulmonary excursion. Cardiac: The rhythm was irregular. S1 and S2 were normal. Holosystolic murmur of variable intensity. The PMI was not markedly displaced on palpation. Extremities: Patient has bilateral radial pulses that are equal in intensity. There is no evidence cyanosis or clubbing. Right lower extremity edema Skin: There are no rashes noted on examination today. Results & Data ([facility]) Vital Signs (Past 12 Hours) Vital Signs Temp Pulse Pulse Resp BP BP Pulse Ox 04/27/21 12:20 36.6 C 77 16 142/73 H 95 04/27/21 10:00 80 20 94 04/27/21 09:00 98 H 26 H 107/81 04/27/21 08:11 121 H 04/27/21 08:00 36.9 C 113 H 29 H 93 04/27/21 07:39 125 H 20 92 04/27/21 07:00 96 H 27 H 92 04/27/21 06:30 130 H 110/66 04/27/21 06:00 87 114/79 04/27/21 05:30 110 H 104/87 04/27/21 05:00 115 H 129/70 04/27/21 04:30 141 H 101/70 04/27/21 04:00 104 H 17 111/58 L 92 04/27/21 03:45 103 H 13 93 04/27/21 03:30 134 H 18 97 04/27/21 03:15 95 H 16 123/77 90 04/27/21 03:00 109 H 17 96 04/27/21 02:45 134 H 17 124/74 92 04/27/21 02:30 125 H 18 106/65 92 04/27/21 02:15 144 H 22 94 04/27/21 02:00 145 H 20 95 Diagnostic Findings Cardiac catheterization performed 11/11/2018: Normal left main. Lad with mid 30% stenosis. 60-70% circumflex stenosis. Subtotal right coronary occlusion estimated 99%. PCI to the proximal RCA. Echocardiogram performed 04/26/2021: Normal LV systolic function with ejection fraction greater than 70%. Moderate LVH. Mild left atrial dilation. Moderate aortic stenosis. Moderate mitral regurgitation ECG Additional Comments: EKG obtained last evening demonstrated atrial fibrillation with rapid ventricular response and ST segment depressions diffusely. EKG obtained this morning demonstrated atrial fibrillation with controlled ventricular response and resolution of the ST segment changes. PG Care Time/CCT Total # of Minutes Spent Total Time Spent with Patient: Total time spent is greater than 50% in coordination of care (as documented) at patient's floor/unit and/or counseling patient: Coding Level of Care Code 15850 Initial Inpt Care Lvl 3 Diagnoses Atrial fibrillation with RVR I48.91 NSTEMI (non-ST elevated myocardial infarction) I21.4 CAD (coronary artery disease) I25.10
[2021-04-27] MEDS ORDERED: DIGOXIN 125 MCG in SYRINGE 9.5 ML IV SCH (14:00)
[2021-04-27 16:04] LABS: Hematocrit (blood only) 26.3 % (37-47); Hemoglobin 8.7 g/dL (12.0-16.0)
[2021-04-27] MEDS: NITROGLYCERIN 2% OINTMENT 30GM TUBE EXT SCH ×2 (16:17→16:46)
[2021-04-27 16:19] LABS: INR 1.2 (0.9-1.1); Partial Thromboplastin Ratio 1.1; Partial Thromboplastin Time 27.8 Seconds (21.0-31.0); Prothrombin Time 11.8 Seconds (9.0-12.0)
[2021-04-27] MEDS: HEPARIN SODIUM/DEXTROSE 25,000 UNITS/500 ML BAG IV SCH (16:47)
[2021-04-28 00:04] LABS: Hematocrit (blood only) 29.3 % (37-47)
[2021-04-28] MEDS: dilTIAZem HCL 125 MG in DEXTROSE 5% 100 ML IV SCH (00:16)
[2021-04-28 00:23] LABS: Partial Thromboplastin Ratio 1.9
[2021-04-28 00:25] LABS: Partial Thromboplastin Time 49.9 Seconds (21.0-31.0)
[2021-04-28] MEDS: NITROGLYCERIN 2% OINTMENT 30GM TUBE EXT SCH ×4 (00:46→18:37)
[2021-04-28] MEDS: PIPERACILLIN/TAZOBACTAM 3.375 GM in DEXTROSE 5% 100 ML IV SCH ×2 (05:30→13:13)
[2021-04-28 05:32] LABS: Basophils # (auto) 0.03 K/uL (0-0.2); Basophils % (auto) 0.3 %; Eosinophils # (auto) 0.19 K/uL (0-0.5); Eosinophils % (auto) 1.6 %; Hematocrit (blood only) 30.8 % (37-47); Hemoglobin 10.2 g/dL (12.0-16.0); Immature Granulocytes # (auto) 0.08 K/uL (0.00-0.02); Immature Granulocytes % (auto) 0.7 %; Lymphocytes # (auto) 2.04 K/uL (1.2-3.4); Lymphocytes % (auto) 17.7 %; Mean Corpuscular Hemoglobin 28.7 pg (25-34); Mean Corpuscular Hgb Conc 33.1 g/dL (32-36); Mean Corpuscular Volume 86.8 fL (80-100); Mean Platelet Volume 9.8 fL (7.4-10.4); Monocytes # (auto) 0.86 K/uL (0.11-0.59); Monocytes % (auto) 7.5 %; Neutrophils # (auto) 8.33 K/uL (1.4-6.5); Neutrophils % (auto) 72.2 %; Platelet Count 564 K/uL (130-400); RDW Coefficient of Variation 14.3 % (11.5-14.5); RDW Standard Deviation 44.9 fL (36.4-46.3); Red Blood Count 3.55 M/uL (4.2-5.4); White Blood Count 11.53 K/uL (4.8-10.8)
[2021-04-28 05:52] LABS: Partial Thromboplastin Ratio 2.9
[2021-04-28 05:53] LABS: Partial Thromboplastin Time 76.9 Seconds (21.0-31.0)
[2021-04-28 06:03] LABS: BUN Creatinine Ratio 26.1 (10-20); Calcium 9.3 mg/dl (8.5-10.1); Creatinine Clr Calc Pharmacy 42.1 ml/min; Est GFR (African American) 56.9 ml/min; Est GFR (Non-African American) 49.1 ml/min; Magnesium 1.8 mg/dl (1.8-2.4); Potassium 3.9 mmol/L (3.5-5.1)
[2021-04-28] MEDS: FORMOTEROL 20 MCG/2 ML VIAL NEB SCH ×2 (07:18→19:36)
[2021-04-28] MEDS: BUDESONIDE 0.5 MG/2 ML VIAL (PULMICORT) NEB SCH ×2 (07:18→19:36)
[2021-04-28] MEDS: INSULIN ASPART 100 UNITS/ML 3 ML PEN SC SCH ×4 (07:35→20:34)
--- NOTE | 2021-04-28 08:32 | Hospitalist Progress Note ---
Date of Service April 28, 2021 Assessment & Plan (1) Atrial fibrillation with RVR: Plan: - new onset of A.fib with RVR - already on max dose BB (routinely) - was on cardizem Gtt 15mg/hr-- but this was since stopped d/t multiple 2-3 sec pauses - digitalized with 50% reduced loading dose IV dig (given age) - electrolytes WNL - remains in A.Fib with variable response (80-130) - plan is for initiation of amiodarone gtt to see if we can convert her to NSR (or at least obtain more adequate rate control). D/W Dr. Otero who agrees - troponin peaked at 1.34 with ischemia changes on EKG. NSTEMI likly d/t rate related ischemia in the setting of underlying CAD- see below - on heparin gtt (as opposed to lovenox given anemia-- of unclear etiology)--> pending H/H remains stable, would convert to oral ACT - cardiology on board-- appreciate recommendations (2) NSTEMI (non-ST elevated myocardial infarction): Plan: - troponin peaked at 1.134 - noted to have ischemic changes on EKG when in A.Fib with RVR - likely type II event from supply/demand mismatch in the setting of underlying CAD - patient does have h/o CAD (cardiac cath 2019: LAMONTE to Proximal RCA, LAD with mid 20-30% stenosis, RCA with distal 40-50% stenosis) - on ASA/statin and BB - now, start heparin gtt (given #1) - topical nitropaste (for vasodilation/preload reduction) - cardiology on board-- appreciate recommendations. d/W Dr. Otero who feels patient may need further coronary study prior to D/C to home (? cardiac cath) (3) Anemia: Plan: - new (compared to old labs--> 11.2 beginning of this month) - has been hovering in the 7-8's since this admission. - likely multifactorial (dilutional, recent endovascular surgery, multiple labs draws, and dilutional) - 04/28: Hgb 7.9 in the setting of uptrending troponin - transfused 2U packed RBCs (as thought to benefit from the O2 carrying capacity of blood). Hgb now 10.2 - again, does not seem to be exsanguinating at this time. On heparin (over lovenox) as can be shut off should she become HD unstable and her H/H gtt - continue protonix (which was started yesterday) empirically - iron level 47. Will add supplementation (4) Pneumonia: Plan: - presented to the ED on 04/21 with fever (at home), progressive cough and lethargy - W/U in the ED showed leukocytosis of 16.21 but she was afebrile and HD stable nad her CXR showed left airspace Dz - she was not hypoxic at rest but did desaturate to 84% with minimal exertion - hospitalized and started on Zosyn (for HCAP given recent hospitalization for fem-fem bypass 04/04 - 04/07) and Vancomycin - Vancomycin was then transitioned to Doxycycline for atypical coverage (for CAP) - her WBC has since normalized - she has shown favorable response - Continue mucolytic agents and nebulized treatments - 04/26: was noted to be slightly bronchospastic (which would be related to volume overload) but transition inhalers to aggressive pulmonary toilette and give 1 dose IV solu-medrol. 04/27 gone-- likely was volume overload. NO additional steroids as this will exacerbate tachycardia - neb treatments on board (but utilizing Xopenex over albuterol as to not further exacerbate tachycardia) - after today's dose of abx, will have completed full course of treatment for PNA (5) Volume overload: Plan: - repeat CXR done and inconclusive - CT done showing improved airspace disease and instertitial edema - has reported h/o CHF but NOT on lasix/Bumex routinely (does take aldactone) - given lasix 20mg q6h x2 doses with adequate response - On disease modifying agents: BB, hydralazine, ACEI (hydaralzine and ACEI currently on hold given marginal hypotension from tachycardia) - additional dose of lasix IV today as increased cough/edema noted and now requiring supplemental O2 - echocardiogram to assess LV function: hyperdynamic. no RWMA - continue to monitor I&D and daily weights (6) Hyponatremia: Plan: - 129 initially--> suspected to be hypervolemic hyponatremia - improved with lasix - currently 135 - continue to trend (7) LEV (acute kidney injury): Plan: - resolved - creatinine 1.08 today - continue to trend (8) PAD (peripheral artery disease): Plan: - s/p fem-fem bypass 04/04 - continue ASA, statin therapy (9) Pulmonary nodule: Plan: - noted on CT. will need repeat imaging in 6 months (10) CAD (coronary artery disease): Plan: - see above - continue ASA, statin, BB as prior to hospitalization (11) Type 2 diabetes mellitus with diabetic neuropathy, unspecified: Plan: - continue to monitor BS closely (elda given the addition of steroids) and provide SS coverage as needed - Metformin and Amaryl on hold (12) Hypertension: Plan: - as reported above-- hold lisinopril, clonidine, norvasc, hydralazine. continue Coreg. Plan: Plan of care to be discussed with Dr. Casiano Admission and Anticipated Discharge Date Admission Date: April 21, 2021 Subjective Patient seen on daily rounds today. Cardizem inadvertently stopped in the overnight hours as she was having frequent 3-second pauses Heart rate remains variable. Has been 70s to 80s at rest but up into the 130s with minimal exertion such as toileting. Did receive 2 units packed cells and since then, reports that her weakness has overall improved. She did not realize "just how weak she had been". Denies any fevers, chills, chest pain but is complaining of a dry cough today which she believes may be related to her pneumonia. She was placed on supplemental oxygen early this morning as she also complained of some mild shortness of breath. Denies orthopnea or PND. Review of Systems Review of Systems: All systems reviewed and are unremarkable except as noted in HPI and below Denies fevers, chills, headache, nasal congestion, sore throat, cough, chest pain, palpitations, orthopnea, PND, abdominal pain, nausea, vomiting, diarrhea, constipation, dysuria, hematuria, frequency, back pain, joint pain or swelling, easy bruising or bleeding, skin lesions or rashes. Physical Exam Physical Exam: General: Resting comfortably in her hospital bed. NAD. HEENT: Head is AT/NC buccal mucosa is moist and pink Neck: No JVD. Mild hepatojugular reflex Cardiac: Irregular rate and rhythm with 2/6 murmur Lungs: Speaking full sentences on supplemental oxygen. No accessory muscle use or labored breathing. Diminished breath sounds with bibasilar crackles Abdomen: Normoactive X4. Soft and nontender in all quadrants. Extremities: +1 pitting edema the right lower extremity. Trace pitting edema of the left lower extremity Neuro: A&O X4 cranial nerves II through XII are grossly intact no focal neuro deficits Skin: No obvious skin lesions or rashes Psych: Appropriate affect pleasant and cooperative Results & Data Results & Data ([facility]) Vital Signs (Past 12 Hours) Vital Signs Temp Pulse Pulse Resp BP BP Pulse Ox 04/28/21 07:18 78 16 88 L 04/28/21 05:28 94 H 154/61 H 04/28/21 02:58 36.8 C 93 H 24 174/74 H 95 04/27/21 23:31 78 04/27/21 23:07 36.6 C 81 18 171/80 H 91 04/27/21 21:04 36.6 C 81 22 172/78 H 90 Laboratory Results 04/28/21 04:51 04/28/21 04:51 Diagnostic Findings 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 with variable response (70-1 thirty) PG Care Time/CCT Total # of Minutes Spent Total Time Spent with Patient: Total time spent is greater than 50% in coordination of care (as documented) at patient's floor/unit and/or counseling patient: Coding Level of Care Code 82174 Subseq Hosp Care Lvl 3 Diagnoses Atrial fibrillation with RVR I48.91 NSTEMI (non-ST elevated myocardial infarction) I21.4 Anemia D64.9 Pneumonia J18.9 Laterality: left Lung location: lower lobe of lung Pneumonia type: due to unspecified organism Volume overload E87.70 Hyponatremia E87.1 LEV (acute kidney injury) N17.9 PAD (peripheral artery disease) I73.9 Pulmonary nodule R91.1 CAD (coronary artery disease) I25.10 Type 2 diabetes mellitus with diabetic neuropathy, unspecified E11.40 Hypertension I10 Hypertension type: unspecified (1) Hypertension Hypertension type: unspecified Qualified Code(s): I10 - Essential (primary) hypertension (2) Pneumonia Laterality: left Lung location: lower lobe of lung Pneumonia type: due to unspecified organism Qualified Code(s): J18.9 - Pneumonia, unspecified organism
[2021-04-28] MEDS ORDERED: AMIODARONE / D5W 150 MG/100 ML BAG IV STA (08:34)
[2021-04-28] MEDS ORDERED: 0.2 MICRON FILTER SET 1 EA IV ONE (08:34)
[2021-04-28] MEDS ORDERED: STAT IV Infusion **Titration per Protocol STA (08:34)
[2021-04-28] MEDS ORDERED: AMIODARONE IV BOLUS & DRIP IV STA (08:34)
[2021-04-28] MEDS: ASPIRIN 81 MG ECTAB PO SCH (08:36)
[2021-04-28] MEDS ORDERED: FUROSEMIDE INJ 20 MG/2 ML VIAL IV ONE (08:37)
[2021-04-28] MEDS: ATORVASTATIN 40 MG TAB PO SCH (08:37)
[2021-04-28] MEDS: DOXYCYCLINE HYCLATE 100 MG CAP PO SCH ×2 (08:39→20:33)
[2021-04-28] MEDS: SPIRONOLACTONE 12.5 MG TAB PO SCH (08:39)
[2021-04-28] MEDS: PANTOprazole 40 MG TAB PO SCH ×2 (08:39→20:34)
[2021-04-28] MEDS: carvediloL 25 MG TAB PO SCH ×2 (08:39→20:33)
[2021-04-28] MEDS: MULTIVITAMIN TAB PO SCH (08:39)
[2021-04-28] MEDS: BENZONATATE 100 MG CAPSULE PO SCH ×3 (08:40→20:33)
[2021-04-28] MEDS ORDERED: AMIODARONE / D5W 360 MG/200 ML BAG IV ONE (08:45)
[2021-04-28] MEDS: FERROUS SULFATE 325 MG/7.4 ML UDP PO SCH ×2 (11:37→18:37)
[2021-04-28 12:19] LABS: Partial Thromboplastin Ratio 1.9
[2021-04-28] MEDS: HEPARIN SODIUM/DEXTROSE 25,000 UNITS/500 ML BAG IV SCH (15:06)
[2021-04-28] MEDS ORDERED: DIGOXIN 0.125 MG TAB PO SCH (16:00)
[2021-04-28] MEDS: AMIODARONE / D5W 360 MG/200 ML BAG IV SCH (16:05)
[2021-04-28] MEDS: INSULIN GLARGINE SOLOSTAR 100 UNITS/ML 3 ML PEN SC SCH (20:34)
[2021-04-29] MEDS: NITROGLYCERIN 2% OINTMENT 30GM TUBE EXT SCH ×3 (00:01→12:07)
[2021-04-29] MEDS: AMIODARONE / D5W 360 MG/200 ML BAG IV SCH (03:38)
[2021-04-29 05:44] LABS: Basophils # (auto) 0.03 K/uL (0-0.2); Basophils % (auto) 0.3 %; Eosinophils # (auto) 0.33 K/uL (0-0.5); Eosinophils % (auto) 3.4 %; Hematocrit (blood only) 32.7 % (37-47); Hemoglobin 10.8 g/dL (12.0-16.0); Immature Granulocytes # (auto) 0.08 K/uL (0.00-0.02); Immature Granulocytes % (auto) 0.8 %; Lymphocytes # (auto) 1.91 K/uL (1.2-3.4); Lymphocytes % (auto) 19.7 %; Mean Corpuscular Hemoglobin 28.7 pg (25-34); Mean Platelet Volume 9.5 fL (7.4-10.4); Monocytes # (auto) 0.84 K/uL (0.11-0.59); Monocytes % (auto) 8.6 %; Neutrophils # (auto) 6.53 K/uL (1.4-6.5); Neutrophils % (auto) 67.2 %; Platelet Count 493 K/uL (130-400); RDW Coefficient of Variation 14.7 % (11.5-14.5); RDW Standard Deviation 45.2 fL (36.4-46.3); Red Blood Count 3.76 M/uL (4.2-5.4); White Blood Count 9.72 K/uL (4.8-10.8)
[2021-04-29 06:05] LABS: BUN Creatinine Ratio 27.3 (10-20); Creatinine Clr Calc Pharmacy 52.5 ml/min; Est GFR (Non-African American) 64.7 ml/min; Magnesium 1.8 mg/dl (1.8-2.4); Partial Thromboplastin Ratio 2.4; Potassium 3.8 mmol/L (3.5-5.1)
[2021-04-29 06:21] LABS: Partial Thromboplastin Time 63.9 Seconds (21.0-31.0)
[2021-04-29] MEDS: BUDESONIDE 0.5 MG/2 ML VIAL (PULMICORT) NEB SCH (08:01)
[2021-04-29] MEDS: FORMOTEROL 20 MCG/2 ML VIAL NEB SCH (08:01)
[2021-04-29] MEDS: INSULIN ASPART 100 UNITS/ML 3 ML PEN SC SCH ×4 (08:32→20:32)
[2021-04-29] MEDS: DOXYCYCLINE HYCLATE 100 MG CAP PO SCH (08:35)
[2021-04-29] MEDS: ATORVASTATIN 40 MG TAB PO SCH (08:35)
[2021-04-29] MEDS: ASPIRIN 81 MG ECTAB PO SCH (08:35)
[2021-04-29] MEDS: carvediloL 25 MG TAB PO SCH (08:35)
[2021-04-29] MEDS: SPIRONOLACTONE 12.5 MG TAB PO SCH (08:36)
[2021-04-29] MEDS: MULTIVITAMIN TAB PO SCH (08:36)
[2021-04-29] MEDS: PANTOprazole 40 MG TAB PO SCH ×2 (08:36→20:31)
[2021-04-29] MEDS: BENZONATATE 100 MG CAPSULE PO SCH ×3 (08:37→20:31)
[2021-04-29] MEDS ORDERED: FUROSEMIDE INJ 20 MG/2 ML VIAL IV ONE (08:50)
--- NOTE | 2021-04-29 10:47 | Electrocardiogram Report ---
Test Reason : Blood Pressure : / mmHG Vent. Rate : 056 BPM Atrial Rate : 056 BPM P-R Int : 184 ms QRS Dur : 090 ms QT Int : 394 ms P-R-T Axes : 063 002 164 degrees QTc Int : 380 ms Sinus bradycardia Abnormal ECG When compared with ECG of 27-APR-2021 03:07, Sinus rhythm has replaced Atrial fibrillation Vent. rate has decreased BY 37 BPM QT has shortened Confirmed by Dillon Otero ([id number]) on 04/29/2021 10:47:02 AM Referred By: REFERRED SELF Confirmed By:Renato Otero
--- NOTE | 2021-04-29 11:16 | Cardiology Progress Note ---
Date of Service April 29, 2021 Assessment & Plan (1) Atrial fibrillation with RVR: (2) NSTEMI (non-ST elevated myocardial infarction): (3) CAD (coronary artery disease): Plan: 1. Atrial fibrillation: she converted to sinus rhythm this morning. She did have evidence of ischemia with higher ventricular rates at the time she converted to atrial fibrillation. She had some brief pauses while on diltiazem infusion. Going forward she may have some difficulty with rate control. At this point I would continue amiodarone 400 milligrams twice daily for 1 week and then reduce to 200 milligram daily. She should continue systemic anticoagulation. Moving forward she may require more aggressive intervention up to including a pacemaker depending on her rate control with recurrences. 2. Coronary artery disease: She had a prior intervention in the right coronary artery. She was noted at that time to have residual disease in other vessels. This is likely progressed. No current symptoms of chest discomfort with ambulation. She did have evidence of ischemia with higher ventricular rates. Depending on how successful the treatment is for her atrial fibrillation consideration may need to be given to additional coronary evaluation. 3. Valvular heart disease: Moderate aortic stenosis and moderate mitral regurgitation. Not likely causing symptoms at this time. Admission and Anticipated Discharge Date Admission Date: April 21, 2021 Subjective this morning patient claims to be feeling well. She has been ambulatory to [facility] multiple times without significant dizziness. No chest pain. No limiting dyspnea. No sense of palpitation. She continues to have a cough. Review of Systems Review of Systems: Per HPI Physical Exam Physical Exam: She is alert and oriented x3. Mood affect appear normal. She answered all questions appropriately. HEENT: Sclerae are anicteric. Pupils are equal and reactive to light and accommodation. Extraocular movements were intact. Neuro: Cranial nerves intact Neck: Examination of the submandibular region did not reveal any significant lymphadenopathy. Carotids are palpable bilaterally and free of bruits on auscultation. There was no evidence of jugular venous distention. The thyroid was not enlarged. Lungs: occasional crackles in left base. Normal respiratory effort. No expiratory wheezing. Cardiac: The rhythm was regular. S1 and S2 were normal. Soft holosystolic murmur. The PMI was not markedly displaced on palpation. Extremities: Patient has bilateral radial pulses that are equal in intensity. There is no evidence cyanosis or clubbing. Right lower extremity edema Skin: There are no rashes noted on examination today. Results & Data ([facility]) Vital Signs (Past 12 Hours) Vital Signs Temp Pulse Pulse Resp BP Pulse Ox 04/29/21 07:16 105 H 04/29/21 07:15 36.5 C 110 H 21 167/83 H 92 04/29/21 03:45 36.6 C 88 14 133/85 92 Diagnostic Findings Cardiac catheterization performed 11/11/2018: Normal left main. Lad with mid 30% stenosis. 60-70% circumflex stenosis. Subtotal right coronary occlusion estimated 99%. PCI to the proximal RCA. Echocardiogram performed 04/26/2021: Normal LV systolic function with ejection fraction greater than 70%. Moderate LVH. Mild left atrial dilation. Moderate aortic stenosis. Moderate mitral regurgitation PG Care Time/CCT Total # of Minutes Spent Total Time Spent with Patient: Total time spent is greater than 50% in coordination of care (as documented) at patient's floor/unit and/or counseling patient: Coding Level of Care Code 39184 Subseq Hosp Care Lvl 2 Diagnoses Atrial fibrillation with RVR I48.91 NSTEMI (non-ST elevated myocardial infarction) I21.4 CAD (coronary artery disease) I25.10
[2021-04-29] MEDS: FERROUS SULFATE 325 MG/7.4 ML UDP PO SCH ×2 (12:07→17:13)
[2021-04-29] MEDS ORDERED: lisinopril 40 MG TAB PO SCH (13:00)
[2021-04-29] MEDS: HEPARIN SODIUM/DEXTROSE 25,000 UNITS/500 ML BAG IV SCH (13:54)
--- NOTE | 2021-04-29 14:55 | Hospitalist Progress Note ---
Date of Service April 29, 2021 Assessment & Plan (1) Atrial fibrillation with RVR: Plan: - new onset of A.fib with RVR - on max dose BB (routinely) - was on cardizem Gtt 15mg/hr-- but this was since stopped d/t multiple 2-3 sec pauses - digitalized with 50% reduced loading dose IV dig (given age) - electrolytes WNL - remained in A.Fib with variable response (80-130) - Started on Amiodarone Gtt - 04/29: converted to NSR actually with some bradycardia (47-63). - transitioned IV amiodarone to 200mg BID - will actually cut back on her dose of coreg (12.5mg bid) given the bradycardia now present - plan of care D/W Dr. Otero-- appreciate recommendations - troponin peaked at 1.34 with ischemic changes on EKG. NSTEMI likely d/t rate related ischemia in the setting of underlying CAD- see below - heparin gtt (as opposed to lovenox given anemia-- of unclear etiology, see below). H/H has remained stable, Transition Heparin Gtt to eliquis - in D/W cardiology, may warrant repeat cardiac cath or perfusion scan prior to dc vs as OP (this is at their discretion) - increase activity to see what HR does with exertion - cardiology on board-- appreciate recommendations (2) NSTEMI (non-ST elevated myocardial infarction): Plan: - troponin peaked at 1.134 - noted to have ischemic changes on EKG when in A.Fib with RVR - likely type II event from supply/demand mismatch in the setting of underlying CAD - patient did have h/o CAD (cardiac cath 2019: LAMONTE to Proximal RCA, LAD with mid 20-30% stenosis, RCA with distal 40-50% stenosis) - on ASA/statin and BB - now, start heparin gtt (given #1-- which is being converted to Eliquis) - was on topical nitropaste (for vasodilation/preload reduction)--> okay to D/C this - cardiology on board-- appreciate recommendations. d/W Dr. Otero who feels p atient may need further coronary study prior to D/C to home (? cardiac cath) (3) Anemia: Plan: - new (compared to old labs--> 11.2 beginning of this month) - has been hovering in the 7-8's since this admission. - likely multifactorial (dilutional, recent endovascular surgery, multiple labs draws, and dilutional as was volume overloaded) - 04/28: Hgb 7.9 in the setting of uptrending troponin - transfused 2U packed RBCs (as thought to benefit from the O2 carrying capacity of blood). Hgb now stable in the 10's (and tolerant to heparin gtt x days) - does not seem to be exsanguinating at this time. On heparin (over lovenox) as can be shut off should she become HD unstable and her H/H gtt - protonix started empirically for GI prophylaxis - iron level 47--> started on supplementation - with transition of heparin gtt to oral eliquis, need to continue to monitor H/H closely (4) Pneumonia: Plan: - reason for admission: presented to the ED on 04/21 with fever (at home), progressive cough and lethargy - W/U in the ED showed leukocytosis of 16.21 but she was afebrile and HD stable and her CXR showed left airspace Dz - she was not hypoxic at rest but did desaturate to 84% with minimal exertion - hospitalized and started on Zosyn (for HCAP given recent hospitalization for fem-fem bypass 04/04 - 04/07) and Vancomycin - Vancomycin was then transitioned to Doxycycline for atypical coverage (for CAP) - her WBC has since normalized - she has shown favorable response - treated with mucolytic agents and nebulized treatments--> which have since concluded - has completed full course of antibiotics (zosyn and doxy) (5) Volume overload: Plan: - repeat CXR done and inconclusive - CT done showing improved airspace disease but with interstitial edema (was volume overloaded even before her A.Fib with RVR but of course her uncontrolled HR only worsened this) - has reported h/o CHF but NOT on lasix/Bumex routinely (does take aldactone) - lasix trials given with adequate response - On disease modifying agents: BB, hydralazine, ACEI (hydaralzine and ACEI) - additional dose of lasix IV today as increased cough/edema noted and now requiring supplemental O2 - echocardiogram to assess LV function: hyperdynamic. no RWMA (6) Hyponatremia: Plan: - 129 initially--> suspected to be hypervolemic hyponatremia - improved with lasix - currently 136 (7) LEV (acute kidney injury): Plan: - resolved - creatinine 0.86 today (8) PAD (peripheral artery disease): Plan: - s/p fem-fem bypass 04/04 - continue ASA, statin therapy (9) Pulmonary nodule: Plan: - noted on CT. will need repeat imaging in 6 months (10) CAD (coronary artery disease): Plan: - see above - continue ASA, statin, BB as prior to hospitalization (11) Type 2 diabetes mellitus with diabetic neuropathy, unspecified: Plan: - continue accuchecks and SS/ correction dosing as warranted - Metformin and Amaryl on hold (12) Hypertension: Plan: -Longstanding history of HTN (which is biggest risk factor for her atrial fibrillation) - was marginally hypotensive when she was in a.fib with RVR (for which her lisinopril, clonidine and hydralazine was held - now hypertensive (despite resuming some of this meds) - 1 dose IV hydralazine to be given now (04/29 for BP 194/112 wuth subsequent BP of 154/80) - continue hold lisinopril, clonidine, norvasc, hydralazine and decreased dose of Coreg as outlined above. - further titration of meds if BP remains elevated Plan: Plan of care to be discussed with Dr. Perdue and Dr. Otero Suspect patient can be D/C'ed within the next 24-48 hours (+/- cardiac cath or perfusion study prior to D/C to home--> at discretion of Cardiology) Admission and Anticipated Discharge Date Admission Date: April 21, 2021 Subjective Patient seen on daily rounds today. When seen early this morning, she remained in atrial fibrillation with variable rate (120s). This was prior to her morning meds being provided. Plan was to give her morning meds (including her Coreg) and is still tachycardic was going to initiate digoxin. Within an hour of getting her Coreg (while on amiodarone drip) she converted to a normal sinus rhythm. Heart rate has actually been between 40s and 60s. She vocalizes no significant complaints or concerns. Denies fevers, chills, chest pain, shortness of breath, abdominal pain, nausea or vomiting. Has been ambulating the halls with her son and nurse and not having any tachycardia with this. Review of Systems Review of Systems: All systems reviewed and are unremarkable except as noted in HPI and below Denies fevers, chills, headache, nasal congestion, sore throat, cough, chest pain, shortness of breath, palpitations, orthopnea, PND, abdominal pain, nausea, vomiting, diarrhea, constipation, dysuria, hematuria, frequency, back pain, joint pain or swelling, easy bruising or bleeding, skin lesions or rashes. Physical Exam Physical Exam: General: Resting comfortably in her hospital bed and bedside chair (seen multiple times today) NAD. HEENT: Head is AT/NC buccal mucosa is moist and pink Neck: No JVD. Negative hepatojugular reflex Cardiac: When seen early this morning, was in atrial fibrillation with variable response. Seen again this afternoon and in a normal sinus rhythm at 65 bpm with 2/6 IVELISSE Lungs: Speaking full sentences on ambient air without W/R/R Abdomen: Normoactive X4. Soft and nontender in all quadrants. Extremities: Trace pitting edema of the right lower extremity (recent vascular surgery). No edema of the left lower extremity Neuro: A&O X4 cranial nerves II through XII are grossly intact no focal neuro deficits Skin: No obvious skin lesions or rashes Psych: Appropriate affect pleasant and cooperative Results & Data Results & Data ([facility]) Vital Signs (Past 12 Hours) Vital Signs Temp Pulse Pulse Resp BP Pulse Ox 04/29/21 11:28 36.6 C 49 L 14 154/80 H 94 04/29/21 07:16 105 H 04/29/21 07:15 36.5 C 110 H 21 167/83 H 92 04/29/21 03:45 36.6 C 88 14 133/85 92 PG Care Time/CCT Total # of Minutes Spent Total Time Spent with Patient: Total time spent is greater than 50% in coordination of care (as documented) at patient's floor/unit and/or counseling patient: Coding Level of Care Code 36338 Subseq Hosp Care Lvl 3 Diagnoses Atrial fibrillation with RVR I48.91 NSTEMI (non-ST elevated myocardial infarction) I21.4 Anemia D64.9 Pneumonia J18.9 Laterality: left Lung location: lower lobe of lung Pneumonia type: due to unspecified organism Volume overload E87.70 Hyponatremia E87.1 LEV (acute kidney injury) N17.9 PAD (peripheral artery disease) I73.9 Pulmonary nodule R91.1 CAD (coronary artery disease) I25.10 Type 2 diabetes mellitus with diabetic neuropathy, unspecified E11.40 Hypertension I10 Hypertension type: unspecified (1) Pneumonia Laterality: left Lung location: lower lobe of lung Pneumonia type: due to unspecified organism Qualified Code(s): J18.9 - Pneumonia, unspecified organism (2) Hypertension Hypertension type: unspecified Qualified Code(s): I10 - Essential (primary) hypertension
[2021-04-29] MEDS ORDERED: hydrALAZINE HCL 20 MG/ML VIAL IV STA ×2 (15:14→18:39)
[2021-04-29] MEDS ORDERED: lisinopril 40 MG TAB PO ONE (16:45)
[2021-04-29] MEDS: AMIODARONE 200 MG TAB PO SCH (17:12)
[2021-04-29] MEDS ORDERED: hydrALAZINE HCL 20 MG/ML VIAL ONE (18:41)
[2021-04-29] MEDS: APIXABAN 2.5 MG TAB PO SCH (20:31)
[2021-04-29] MEDS: carvediloL 12.5 MG TAB PO SCH (20:31)
[2021-04-29] MEDS: INSULIN GLARGINE SOLOSTAR 100 UNITS/ML 3 ML PEN SC SCH (20:32)
[2021-04-29] MEDS ORDERED: [UNRECOGNIZED DRUG - REMARK] ONE (21:00)
[2021-04-29] MEDS: cloNIDine HCL 0.1 MG TAB PO SCH (21:15)
[2021-04-30 04:47] LABS: Hematocrit (blood only) 31.7 % (37-47); Hemoglobin 10.3 g/dL (12.0-16.0); Mean Corpuscular Hemoglobin 28.7 pg (25-34); Mean Corpuscular Hgb Conc 32.5 g/dL (32-36); Mean Corpuscular Volume 88.3 fL (80-100); Mean Platelet Volume 9.4 fL (7.4-10.4); Platelet Count 473 K/uL (130-400); RDW Coefficient of Variation 15.2 % (11.5-14.5); RDW Standard Deviation 48.2 fL (36.4-46.3); Red Blood Count 3.59 M/uL (4.2-5.4); White Blood Count 9.29 K/uL (4.8-10.8)
[2021-04-30 04:58] LABS: Partial Thromboplastin Ratio 1.1; Partial Thromboplastin Time 28.3 Seconds (21.0-31.0)
[2021-04-30 05:08] LABS: BUN Creatinine Ratio 20.2 (10-20); Calcium 9.1 mg/dl (8.5-10.1); Creatinine Clr Calc Pharmacy 45.7 ml/min; Est GFR (African American) 63.3 ml/min; Est GFR (Non-African American) 54.6 ml/min; Magnesium 1.7 mg/dl (1.8-2.4); Potassium 3.8 mmol/L (3.5-5.1)
[2021-04-30] MEDS: INSULIN ASPART 100 UNITS/ML 3 ML PEN SC SCH ×4 (07:35→20:31)
[2021-04-30] MEDS: AMIODARONE 200 MG TAB PO SCH ×2 (07:36→20:28)
[2021-04-30] MEDS: ATORVASTATIN 40 MG TAB PO SCH (08:04)
[2021-04-30] MEDS: APIXABAN 2.5 MG TAB PO SCH ×2 (08:04→20:29)
[2021-04-30] MEDS: ASPIRIN 81 MG ECTAB PO SCH (08:04)
[2021-04-30] MEDS: PANTOprazole 40 MG TAB PO SCH ×2 (08:05→20:30)
[2021-04-30] MEDS: MULTIVITAMIN TAB PO SCH (08:05)
[2021-04-30] MEDS: SPIRONOLACTONE 12.5 MG TAB PO SCH (08:05)
[2021-04-30] MEDS: carvediloL 12.5 MG TAB PO SCH ×2 (08:05→20:27)
[2021-04-30] MEDS: BENZONATATE 100 MG CAPSULE PO SCH ×3 (08:07→20:29)
[2021-04-30] MEDS: lisinopril 40 MG TAB PO SCH (08:31)
--- NOTE | 2021-04-30 09:10 | Cardiology Progress Note ---
Date of Service April 30, 2021 Assessment & Plan Admission and Anticipated Discharge Date Admission Date: April 21, 2021 Subjective She feels better this morning. She has a rare cough at this point. She has any fevers chills or sweats. She has any chest pain or chest pressure. She has any palpitations. She has had lightheadedness dizziness presyncope syncope. She has any headaches double vision or blurry vision. She notes when she was in atrial fibrillation she felt jittery anxious did feel some palpitations. Results & Data ([facility]) Vital Signs (Past 12 Hours) Vital Signs Temp Pulse Pulse Resp BP Pulse Ox 04/30/21 08:44 36.7 C 58 L 19 173/72 H 93 04/30/21 08:41 63 04/30/21 03:32 36.5 C 58 L 14 174/76 H 94 04/29/21 23:35 36.8 C 63 23 133/63 95 04/29/21 23:09 62 She is awake alert and oriented x3 she looks better than one would anticipate HEENT: 2+ carotid upstrokes Lungs: Clear to auscultation bilaterally no rales rhonchi or wheezing Heart: Regular rate and rhythm there is a 2 out of 6 mid peaking crescendo decrescendo murmur Abdomen: Soft and no tenderness and nondistended positive bowel sounds Extremities: No clubbing cyanosis or edema of the left leg she had trace edema of the right leg Impressions: (1) Atrial fibrillation with RVR: (2) NSTEMI (non-ST elevated myocardial infarction): (3) CAD (coronary artery disease): 4. Recent fem- fem bypass 5. Admission for pneumonia 6. Previous RCA stent with no recent anginal symptoms. 7. Valvular heart disease: Moderate aortic stenosis and moderate mitral regurgitation. 8. HTN She is maintaining sinus rhythm. She is on amiodarone and it looks like the dose was reduced to 200 mg twice daily. We know when she was in atrial fibrillation she was very fast and difficult to control and in sinus rhythm she is relatively slow even though she is on Coreg. Ultimately she may end up with tachybradycardia syndrome and need a pacemaker long-term. Her hemoglobin is stable at this point. She did receive 2 units of blood. From my standpoint her anticoagulation can be reinitiated. Her coronary artery disease has been stable. I believe her elevated troponin is related to demand ischemia based on her catheterization of 2 years ago. Her LV function is normal. There are no regional wall motion abnormalities at this point and I would treat her medically. Her blood pressure remains elevated. I would avoid uptitrating her clonidine as it can cause bradycardia. I would restart her amlodipine that she was on as an outpatient although it may make some of the swelling worse in her right leg the swelling in her right leg from her fem-fem bypass should continue to improve with time. We will start 5 mg daily. From my standpoint she can go upstairs.
[2021-04-30] MEDS: FERROUS SULFATE 325 MG/7.4 ML UDP PO SCH ×2 (12:34→20:27)
[2021-04-30] MEDS: amLODIPine BESYLATE 5 MG TAB PO SCH (12:34)
[2021-04-30] MEDS ORDERED: hydrALAZINE HCL 20 MG/ML VIAL IV STA ×2 (19:26→23:19)
[2021-04-30] MEDS: cloNIDine HCL 0.1 MG TAB PO SCH (20:28)
[2021-04-30] MEDS: INSULIN GLARGINE SOLOSTAR 100 UNITS/ML 3 ML PEN SC SCH (20:30)
--- NOTE | 2021-04-30 22:48 | Hospitalist Progress Note ---
Date of Service April 30, 2021 Assessment & Plan (1) Atrial fibrillation with RVR: Plan: - new onset of A.fib with RVR - on max dose BB (routinely) - was on cardizem Gtt 15mg/hr-- but this was since stopped d/t multiple 2-3 sec pauses - digitalized with 50% reduced loading dose IV dig (given age) - electrolytes WNL - remained in A.Fib with variable response (80-130) - Started on Amiodarone Gtt - 04/29: converted to NSR actually with some bradycardia (47-63). - transitioned IV amiodarone to 200mg BID - will actually cut back on her dose of coreg (12.5mg bid) given the bradycardia now present - plan of care D/W Dr. Otero-- appreciate recommendations - troponin peaked at 1.34 with ischemic changes on EKG. NSTEMI likely d/t rate related ischemia in the setting of underlying CAD- see below - heparin gtt (as opposed to lovenox given anemia-- of unclear etiology, see below). H/H has remained stable, Transition Heparin Gtt to eliquis - in D/W cardiology, continue medical management, hold off cardiac cath or perfusion scan prior for OP - increase activity to see what HR does with exertion - cardiology on board-- appreciate recommendations -will discharge once BP is better controlled (2) NSTEMI (non-ST elevated myocardial infarction): Plan: - troponin peaked at 1.134 - noted to have ischemic changes on EKG when in A.Fib with RVR - likely type II event from supply/demand mismatch in the setting of underlying CAD - patient did have h/o CAD (cardiac cath 2019: LAMONTE to Proximal RCA, LAD with mid 20-30% stenosis, RCA with distal 40-50% stenosis) - on ASA/statin and BB - now, start heparin gtt (given #1-- which is being converted to Eliquis) - was on topical nitropaste (for vasodilation/preload reduction)--> okay to D/C this - cardiology on board-- appreciate recommendations. d/W Dr. Otero who feels patient may need further coronary study prior to D/C to home (? cardiac cath) (3) Anemia: Plan: - new (compared to old labs--> 11.2 beginning of this month) - has been hovering in the 7-8's since this admission. - likely multifactorial (dilutional, recent endovascular surgery, multiple labs draws, and dilutional as was volume overloaded) - 04/28: Hgb 7.9 in the setting of uptrending troponin - transfused 2U packed RBCs (as thought to benefit from the O2 carrying capacity of blood). Hgb now stable in the 10's (and tolerant to heparin gtt x days) - does not seem to be exsanguinating at this time. On heparin (over lovenox) as can be shut off should she become HD unstable and her H/H gtt - protonix started empirically for GI prophylaxis - iron level 47--> started on supplementation - with transition of heparin gtt to oral eliquis, need to continue to monitor H/H closely (4) Pneumonia: Plan: - reason for admission: presented to the ED on 04/21 with fever (at home), progressive cough and lethargy - W/U in the ED showed leukocytosis of 16.21 but she was afebrile and HD stable and her CXR showed left airspace Dz - she was not hypoxic at rest but did desaturate to 84% with minimal exertion - hospitalized and started on Zosyn (for HCAP given recent hospitalization for fem-fem bypass 04/04 - 04/07) and Vancomycin - Vancomycin was then transitioned to Doxycycline for atypical coverage (for CAP) - her WBC has since normalized - she has shown favorable response - treated with mucolytic agents and nebulized treatments--> which have since concluded - has completed full course of antibiotics (zosyn and doxy) (5) Volume overload: Plan: - repeat CXR done and inconclusive - CT done showing improved airspace disease but with interstitial edema (was volume overloaded even before her A.Fib with RVR but of course her uncontrolled HR only worsened this) - has reported h/o CHF but NOT on lasix/Bumex routinely (does take aldactone) - lasix trials given with adequate response - On disease modifying agents: BB, hydralazine, ACEI (hydaralzine and ACEI) - additional dose of lasix IV today as increased cough/edema noted and now requiring supplemental O2 - echocardiogram to assess LV function: hyperdynamic. no RWMA (6) Hyponatremia: Plan: - 129 initially--> suspected to be hypervolemic hyponatremia - improved with lasix - currently 136 (7) LEV (acute kidney injury): Plan: - resolved - creatinine 0.86 today (8) PAD (peripheral artery disease): Plan: - s/p fem-fem bypass 04/04 - continue ASA, statin therapy (9) Pulmonary nodule: Plan: - noted on CT. will need repeat imaging in 6 months (10) CAD (coronary artery disease): Plan: - see above - continue ASA, statin, BB as prior to hospitalization (11) Type 2 diabetes mellitus with diabetic neuropathy, unspecified: Plan: - continue accuchecks and SS/ correction dosing as warranted - Metformin and Amaryl on hold (12) Hypertension: Plan: -Longstanding history of HTN (which is biggest risk factor for her atrial fibrillation) - was marginally hypotensive when she was in a.fib with RVR (for which her lisinopril, clonidine and hydralazine was held - now hypertensive (despite resuming some of this meds) - 1 dose IV hydralazine to be given now (04/29 for BP 194/112 wuth subsequent BP of 154/80) - continue hold lisinopril, clonidine, norvasc, hydralazine and decreased dose of Coreg as outlined above. - further titration of meds if BP remains elevated -Added amlodipine. Plan: Plan of care to be discussed with Dr. Perdue and Dr. Otero Suspect patient can be D/C'ed within the next 24-48 hours (+/- cardiac cath or perfusion study prior to D/C to home--> at discretion of Cardiology) Admission and Anticipated Discharge Date Admission Date: April 21, 2021 Subjective Patient reports no new symptoms. Review of Systems Review of Systems: All systems reviewed & are unremarkable except as noted in HPI & below Physical Exam Physical Exam: The patient appeared well nourished and normally developed. Vital signs as documented. Head exam is normocephalic atraumatic Neck is without JVD, thyromegaly, or carotid bruits. Lungs are rhonchi at the left base Cardiac exam, Rhythm is regular.. Systolic murmur is heard Abdominal exam reveals normal bowel sounds, soft non tender, no masses Extremities are right lower extremity trace edema Neurologic exam is alert and oriented, no focal loss of strength peripheral neuropathy Right groin incision is clean and intact it is not dry slightly erythematous left incision is clean dry and intact Right great toe with callus which reportedly is being debrided by Dr. Sarah Meyer Psychologically is without concerns for anxiety or depression Results & Data Results & Data ([facility]) Vital Signs (Past 12 Hours) Vital Signs Temp Pulse Resp BP Pulse Ox 04/30/21 19:22 36.8 C 61 20 226/67 H 92 04/30/21 15:18 36.7 C 53 L 19 188/63 H 94 04/30/21 11:15 36.6 C 60 17 187/70 H 94 PG Care Time/CCT Total # of Minutes Spent Total Time Spent with Patient: Total time spent is greater than 50% in coordination of care (as documented) at patient's floor/unit and/or counseling patient: Coding Level of Care Code 87194 Subseq Hosp Care Lvl 2 Diagnoses Atrial fibrillation with RVR I48.91 NSTEMI (non-ST elevated myocardial infarction) I21.4 Anemia D64.9 Pneumonia J18.9 Laterality: left Lung location: lower lobe of lung Pneumonia type: due to unspecified organism Volume overload E87.70 Hyponatremia E87.1 LEV (acute kidney injury) N17.9 PAD (peripheral artery disease) I73.9 Pulmonary nodule R91.1 CAD (coronary artery disease) I25.10 Type 2 diabetes mellitus with diabetic neuropathy, unspecified E11.40 Hypertension I10 Hypertension type: unspecified Time Spent (min) 25 (1) Hypertension Hypertension type: unspecified Qualified Code(s): I10 - Essential (primary) hypertension (2) Pneumonia Laterality: left Lung location: lower lobe of lung Pneumonia type: due to unspecified organism Qualified Code(s): J18.9 - Pneumonia, unspecified organism
[2021-05-01] MEDS: APIXABAN 2.5 MG TAB PO SCH ×2 (08:06→19:36)
[2021-05-01] MEDS: PANTOprazole 40 MG TAB PO SCH ×2 (08:06→19:36)
[2021-05-01] MEDS: SPIRONOLACTONE 12.5 MG TAB PO SCH (08:07)
[2021-05-01] MEDS: MULTIVITAMIN TAB PO SCH (08:07)
[2021-05-01] MEDS: ASPIRIN 81 MG ECTAB PO SCH (08:07)
[2021-05-01] MEDS: amLODIPine BESYLATE 5 MG TAB PO SCH (08:08)
[2021-05-01] MEDS: carvediloL 12.5 MG TAB PO SCH ×2 (08:08→19:37)
[2021-05-01] MEDS: ATORVASTATIN 40 MG TAB PO SCH (08:08)
[2021-05-01] MEDS: lisinopril 40 MG TAB PO SCH (08:08)
[2021-05-01] MEDS: AMIODARONE 200 MG TAB PO SCH ×2 (08:08→16:20)
[2021-05-01] MEDS: BENZONATATE 100 MG CAPSULE PO SCH ×3 (08:09→19:37)
[2021-05-01] MEDS: INSULIN ASPART 100 UNITS/ML 3 ML PEN SC SCH ×4 (08:12→20:33)
[2021-05-01] MEDS: FERROUS SULFATE 325 MG/7.4 ML UDP PO SCH ×2 (12:50→17:50)
[2021-05-01] MEDS ORDERED: amLODIPine BESYLATE 5 MG TAB PO ONE (15:00)
[2021-05-01] MEDS: cloNIDine HCL 0.1 MG TAB PO SCH (20:34)
[2021-05-01] MEDS: INSULIN GLARGINE SOLOSTAR 100 UNITS/ML 3 ML PEN SC SCH (20:35)
[2021-05-01] MEDS ORDERED: hydrALAZINE 10 MG TAB PO STA (21:01)
--- NOTE | 2021-05-01 22:17 | Hospitalist Progress Note ---
Date of Service May 01, 2021 Assessment & Plan (1) Atrial fibrillation with RVR: Plan: - new onset of A.fib with RVR - on max dose BB (routinely) - was on cardizem Gtt 15mg/hr-- but this was since stopped d/t multiple 2-3 sec pauses - digitalized with 50% reduced loading dose IV dig (given age) - electrolytes WNL - remained in A.Fib with variable response (80-130) - Started on Amiodarone Gtt - 04/29: converted to NSR actually with some bradycardia (47-63). - transitioned IV amiodarone to 200mg BID - will actually cut back on her dose of coreg (12.5mg bid) given the bradycardia now present - plan of care D/W Dr. Otero-- appreciate recommendations - troponin peaked at 1.34 with ischemic changes on EKG. NSTEMI likely d/t rate related ischemia in the setting of underlying CAD- see below - heparin gtt (as opposed to lovenox given anemia-- of unclear etiology, see below). H/H has remained stable, Transition Heparin Gtt to eliquis - in D/W cardiology, continue medical management, hold off cardiac cath or perfusion scan prior for OP - increase activity to see what HR does with exertion - cardiology on board-- appreciate recommendations -will discharge once BP is better controlled. increase amlodipine to 10 mg. add hydralazine. (2) NSTEMI (non-ST elevated myocardial infarction): Plan: - troponin peaked at 1.134 - noted to have ischemic changes on EKG when in A.Fib with RVR - likely type II event from supply/demand mismatch in the setting of underlying CAD - patient did have h/o CAD (cardiac cath 2019: LAMONTE to Proximal RCA, LAD with mid 20-30% stenosis, RCA with distal 40-50% stenosis) - on ASA/statin and BB - now, start heparin gtt (given #1-- which is being converted to Eliquis) - was on topical nitropaste (for vasodilation/preload reduction)--> okay to D/C this - cardiology on board-- appreciate recommendations. d/W Dr. Otero who feels patient may need further coronary study prior to D/C to home (? cardiac cath) (3) Anemia: Plan: - new (compared to old labs--> 11.2 beginning of this month) - has been hovering in the 7-8's since this admission. - likely multifactorial (dilutional, recent endovascular surgery, multiple labs draws, and dilutional as was volume overloaded) - 04/28: Hgb 7.9 in the setting of uptrending troponin - transfused 2U packed RBCs (as thought to benefit from the O2 carrying capacity of blood). Hgb now stable in the 10's (and tolerant to heparin gtt x days) - does not seem to be exsanguinating at this time. On heparin (over lovenox) as can be shut off should she become HD unstable and her H/H gtt - protonix started empirically for GI prophylaxis - iron level 47--> started on supplementation - with transition of heparin gtt to oral eliquis, need to continue to monitor H/H closely (4) Pneumonia: Plan: - reason for admission: presented to the ED on 04/21 with fever (at home), progressive cough and lethargy - W/U in the ED showed leukocytosis of 16.21 but she was afebrile and HD stable and her CXR showed left airspace Dz - she was not hypoxic at rest but did desaturate to 84% with minimal exertion - hospitalized and started on Zosyn (for HCAP given recent hospitalization for fem-fem bypass 04/04 - 04/07) and Vancomycin - Vancomycin was then transitioned to Doxycycline for atypical coverage (for CAP) - her WBC has since normalized - she has shown favorable response - treated with mucolytic agents and nebulized treatments--> which have since concluded - has completed full course of antibiotics (zosyn and doxy) (5) Volume overload: Plan: - repeat CXR done and inconclusive - CT done showing improved airspace disease but with interstitial edema (was volume overloaded even before her A.Fib with RVR but of course her uncontrolled HR only worsened this) - has reported h/o CHF but NOT on lasix/Bumex routinely (does take aldactone) - lasix trials given with adequate response - On disease modifying agents: BB, hydralazine, ACEI (hydaralzine and ACEI) - additional dose of lasix IV today as increased cough/edema noted and now requiring supplemental O2 - echocardiogram to assess LV function: hyperdynamic. no RWMA (6) Hyponatremia: Plan: - 129 initially--> suspected to be hypervolemic hyponatremia - improved with lasix - currently 136 (7) LEV (acute kidney injury): Plan: - resolved - creatinine 0.86 today (8) PAD (peripheral artery disease): Plan: - s/p fem-fem bypass 04/04 - continue ASA, statin therapy (9) Pulmonary nodule: Plan: - noted on CT. will need repeat imaging in 6 months (10) CAD (coronary artery disease): Plan: - see above - continue ASA, statin, BB as prior to hospitalization (11) Type 2 diabetes mellitus with diabetic neuropathy, unspecified: Plan: - continue accuchecks and SS/ correction dosing as warranted - Metformin and Amaryl on hold (12) Hypertension: Plan: -Longstanding history of HTN (which is biggest risk factor for her atrial fibrillation) - was marginally hypotensive when she was in a.fib with RVR (for which her lisinopril, clonidine and hydralazine was held - now hypertensive (despite resuming some of this meds) - 1 dose IV hydralazine to be given now (04/29 for BP 194/112 wuth subsequent BP of 154/80) - continue hold lisinopril, clonidine, norvasc, hydralazine and decreased dose of Coreg as outlined above. - further titration of meds if BP remains elevated -Added amlodipine. Plan: Plan of care to be discussed with Dr. Perdue and Dr. Otero Suspect patient can be D/C'ed within the next 24-48 hours (+/- cardiac cath or perfusion study prior to D/C to home--> at discretion of Cardiology) Admission and Anticipated Discharge Date Admission Date: April 21, 2021 Subjective Patient reports no new symptoms, Review of Systems Review of Systems: All systems reviewed & are unremarkable except as noted in HPI & below Physical Exam Physical Exam: The patient appeared well nourished and normally developed. Vital signs as documented. Head exam is normocephalic atraumatic Neck is without JVD, thyromegaly, or carotid bruits. Lungs are rhonchi at the left base Cardiac exam, Rhythm is regular.. Systolic murmur is heard Abdominal exam reveals normal bowel sounds, soft non tender, no masses Extremities are right lower extremity trace edema Neurologic exam is alert and oriented, no focal loss of strength peripheral neuropathy Right groin incision is clean and intact it is not dry slightly erythematous left incision is clean dry and intact Right great toe with callus which reportedly is being debrided by Dr. Sarah Meyer Psychologically is without concerns for anxiety or depression Results & Data Results & Data ([facility]) Vital Signs (Past 12 Hours) Vital Signs Temp Pulse Pulse Resp BP BP Pulse Ox 05/01/21 19:11 36.8 C 73 18 191/70 H 96 05/01/21 16:00 50 L 05/01/21 15:16 36.7 C 51 L 16 166/67 H 95 05/01/21 11:20 36.4 C L 55 L 19 170/98 H 95 05/01/21 10:40 154/57 H PG Care Time/CCT Total # of Minutes Spent Total Time Spent with Patient: Total time spent is greater than 50% in coordination of care (as documented) at patient's floor/unit and/or counseling patient: Coding Level of Care Code 63820 Subseq Hosp Care Lvl 2 Diagnoses Atrial fibrillation with RVR I48.91 NSTEMI (non-ST elevated myocardial infarction) I21.4 Anemia D64.9 Pneumonia J18.9 Laterality: left Lung location: lower lobe of lung Pneumonia type: due to unspecified organism Volume overload E87.70 Hyponatremia E87.1 LEV (acute kidney injury) N17.9 PAD (peripheral artery disease) I73.9 Pulmonary nodule R91.1 CAD (coronary artery disease) I25.10 Type 2 diabetes mellitus with diabetic neuropathy, unspecified E11.40 Hypertension I10 Hypertension type: unspecified Time Spent (min) 25 (1) Pneumonia Laterality: left Lung location: lower lobe of lung Pneumonia type: due to unspecified organism Qualified Code(s): J18.9 - Pneumonia, unspecified organism (2) Hypertension Hypertension type: unspecified Qualified Code(s): I10 - Essential (primary) hypertension
[2021-05-02] MEDS: hydrALAZINE 10 MG TAB PO SCH ×4 (06:10→21:10)
[2021-05-02] MEDS: APIXABAN 2.5 MG TAB PO SCH ×2 (09:28→21:09)
[2021-05-02] MEDS: lisinopril 40 MG TAB PO SCH (09:28)
[2021-05-02] MEDS: SPIRONOLACTONE 12.5 MG TAB PO SCH (09:28)
[2021-05-02] MEDS: amLODIPine BESYLATE 5 MG TAB PO SCH (09:28)
[2021-05-02] MEDS: MULTIVITAMIN TAB PO SCH (09:28)
[2021-05-02] MEDS: carvediloL 12.5 MG TAB PO SCH ×2 (09:29→21:11)
[2021-05-02] MEDS: ASPIRIN 81 MG ECTAB PO SCH (09:29)
[2021-05-02] MEDS: PANTOprazole 40 MG TAB PO SCH ×2 (09:29→21:09)
[2021-05-02] MEDS: AMIODARONE 200 MG TAB PO SCH ×2 (09:29→16:30)
[2021-05-02] MEDS: BENZONATATE 100 MG CAPSULE PO SCH ×3 (09:29→21:09)
[2021-05-02] MEDS: ATORVASTATIN 40 MG TAB PO SCH (09:29)
[2021-05-02] MEDS: INSULIN ASPART 100 UNITS/ML 3 ML PEN SC SCH ×4 (09:34→21:57)
[2021-05-02] MEDS: FERROUS SULFATE 325 MG/7.4 ML UDP PO SCH ×2 (12:57→16:45)
[2021-05-02] MEDS ORDERED: amLODIPine BESYLATE 5 MG TAB PO ONE (17:30)
[2021-05-02] MEDS: cloNIDine HCL 0.1 MG TAB PO SCH (21:08)
[2021-05-02] MEDS: INSULIN GLARGINE SOLOSTAR 100 UNITS/ML 3 ML PEN SC SCH (21:58)
--- NOTE | 2021-05-02 23:09 | Hospitalist Progress Note ---
Date of Service May 02, 2021 Assessment & Plan (1) Atrial fibrillation with RVR: Plan: - new onset of A.fib with RVR - on max dose BB (routinely) - was on cardizem Gtt 15mg/hr-- but this was since stopped d/t multiple 2-3 sec pauses - digitalized with 50% reduced loading dose IV dig (given age) - electrolytes WNL - remained in A.Fib with variable response (80-130) - Started on Amiodarone Gtt - 04/29: converted to NSR actually with some bradycardia (47-63). - transitioned IV amiodarone to 200mg BID - will actually cut back on her dose of coreg (12.5mg bid) given the bradycardia now present - plan of care D/W Dr. Otero-- appreciate recommendations - troponin peaked at 1.34 with ischemic changes on EKG. NSTEMI likely d/t rate related ischemia in the setting of underlying CAD- see below - heparin gtt (as opposed to lovenox given anemia-- of unclear etiology, see below). H/H has remained stable, Transition Heparin Gtt to eliquis - in D/W cardiology, continue medical management, hold off cardiac cath or perfusion scan prior for OP - increase activity to see what HR does with exertion - cardiology on board-- appreciate recommendations -will discharge once BP is better controlled. increase amlodipine to 10 mg. will increase hydralazine to 25 mg PO Q6H as SBP is above 220 (2) NSTEMI (non-ST elevated myocardial infarction): Plan: - troponin peaked at 1.134 - noted to have ischemic changes on EKG when in A.Fib with RVR - likely type II event from supply/demand mismatch in the setting of underlying CAD - patient did have h/o CAD (cardiac cath 2019: LAMONTE to Proximal RCA, LAD with mid 20-30% stenosis, RCA with distal 40-50% stenosis) - on ASA/statin and BB - now, start heparin gtt (given #1-- which is being converted to Eliquis) - was on topical nitropaste (for vasodilation/preload reduction)--> okay to D/C this - cardiology on board-- appreciate recommendations. d/W Dr. Otero who feels patient may need further coronary study prior to D/C to home (? cardiac cath) (3) Anemia: Plan: - new (compared to old labs--> 11.2 beginning of this month) - has been hovering in the 7-8's since this admission. - likely multifactorial (dilutional, recent endovascular surgery, multiple labs draws, and dilutional as was volume overloaded) - 04/28: Hgb 7.9 in the setting of uptrending troponin - transfused 2U packed RBCs (as thought to benefit from the O2 carrying capacity of blood). Hgb now stable in the 10's (and tolerant to heparin gtt x days) - does not seem to be exsanguinating at this time. On heparin (over lovenox) as can be shut off should she become HD unstable and her H/H gtt - protonix started empirically for GI prophylaxis - iron level 47--> started on supplementation - with transition of heparin gtt to oral eliquis, need to continue to monitor H/H closely (4) Pneumonia: Plan: - reason for admission: presented to the ED on 04/21 with fever (at home), progressive cough and lethargy - W/U in the ED showed leukocytosis of 16.21 but she was afebrile and HD stable and her CXR showed left airspace Dz - she was not hypoxic at rest but did desaturate to 84% with minimal exertion - hospitalized and started on Zosyn (for HCAP given recent hospitalization for fem-fem bypass 04/04 - 04/07) and Vancomycin - Vancomycin was then transitioned to Doxycycline for atypical coverage (for CAP) - her WBC has since normalized - she has shown favorable response - treated with mucolytic agents and nebulized treatments--> which have since concluded - has completed full course of antibiotics (zosyn and doxy) (5) Volume overload: Plan: - repeat CXR done and inconclusive - CT done showing improved airspace disease but with interstitial edema (was volume overloaded even before her A.Fib with RVR but of course her uncontrolled HR only worsened this) - has reported h/o CHF but NOT on lasix/Bumex routinely (does take aldactone) - lasix trials given with adequate response - On disease modifying agents: BB, hydralazine, ACEI (hydaralzine and ACEI) - additional dose of lasix IV today as increased cough/edema noted and now requiring supplemental O2 - echocardiogram to assess LV function: hyperdynamic. no RWMA (6) Hyponatremia: Plan: - 129 initially--> suspected to be hypervolemic hyponatremia - improved with lasix - currently 136 (7) LEV (acute kidney injury): Plan: - resolved - creatinine 0.86 today (8) PAD (peripheral artery disease): Plan: - s/p fem-fem bypass 04/04 - continue ASA, statin therapy (9) Pulmonary nodule: Plan: - noted on CT. will need repeat imaging in 6 months (10) CAD (coronary artery disease): Plan: - see above - continue ASA, statin, BB as prior to hospitalization (11) Type 2 diabetes mellitus with diabetic neuropathy, unspecified: Plan: - continue accuchecks and SS/ correction dosing as warranted - Metformin and Amaryl on hold (12) Hypertension: Plan: -Longstanding history of HTN (which is biggest risk factor for her atrial fibrillation) - was marginally hypotensive when she was in a.fib with RVR (for which her lisinopril, clonidine and hydralazine was held - now hypertensive (despite resuming some of this meds) - 1 dose IV hydralazine to be given now (04/29 for BP 194/112 wuth subsequent BP of 154/80) - continue hold lisinopril, clonidine, norvasc, hydralazine and decreased dose of Coreg as outlined above. - further titration of meds if BP remains elevated -Added amlodipine. Plan: Plan of care to be discussed with Dr. Perdue and Dr. Otero Suspect patient can be D/C'ed within the next 24-48 hours (+/- cardiac cath or perfusion study prior to D/C to home--> at discretion of Cardiology) Admission and Anticipated Discharge Date Admission Date: April 21, 2021 Subjective 80 yo male reports feeling well. No new complaints. Review of Systems Review of Systems: All systems reviewed & are unremarkable except as noted in HPI & below Physical Exam Physical Exam: The patient appeared well nourished and normally developed. Vital signs as documented. Head exam is normocephalic atraumatic Neck is without JVD, thyromegaly, or carotid bruits. Lungs are rhonchi at the left base Cardiac exam, Rhythm is regular.. Systolic murmur is heard Abdominal exam reveals normal bowel sounds, soft non tender, no masses Extremities are right lower extremity trace edema Neurologic exam is alert and oriented, no focal loss of strength peripheral neuropathy Right groin incision is clean and intact it is not dry slightly erythematous left incision is clean dry and intact Right great toe with callus which reportedly is being debrided by Dr. Sarah Meyer Psychologically is without concerns for anxiety or depression Results & Data Results & Data ([facility]) Vital Signs (Past 12 Hours) Vital Signs Temp Pulse Pulse Resp BP BP Pulse Ox 05/02/21 20:51 54 L 208/67 H 05/02/21 19:17 36.6 C 54 L 20 209/79 H 96 05/02/21 16:20 36.7 C 57 L 18 221/83 H 97 05/02/21 16:00 54 L 05/02/21 15:08 36.7 C 50 L 16 179/72 H 134/54 L 94 05/02/21 11:09 36.7 C 50 L 16 134/54 L 94 PG Care Time/CCT Total # of Minutes Spent Total Time Spent with Patient: Total time spent is greater than 50% in coordination of care (as documented) at patient's floor/unit and/or counseling patient: Coding Level of Care Code 83914 Subseq Hosp Care Lvl 2 Diagnoses Atrial fibrillation with RVR I48.91 NSTEMI (non-ST elevated myocardial infarction) I21.4 Anemia D64.9 Pneumonia J18.9 Laterality: left Lung location: lower lobe of lung Pneumonia type: due to unspecified organism Volume overload E87.70 Hyponatremia E87.1 LEV (acute kidney injury) N17.9 PAD (peripheral artery disease) I73.9 Pulmonary nodule R91.1 CAD (coronary artery disease) I25.10 Type 2 diabetes mellitus with diabetic neuropathy, unspecified E11.40 Hypertension I10 Hypertension type: unspecified (1) Pneumonia Laterality: left Lung location: lower lobe of lung Pneumonia type: due to unspecified organism Qualified Code(s): J18.9 - Pneumonia, unspecified organism (2) Hypertension Hypertension type: unspecified Qualified Code(s): I10 - Essential (primary) hypertension
[2021-05-02] MEDS: hydrALAZINE HCL 25 MG TAB PO SCH (23:29)
[2021-05-03] MEDS: hydrALAZINE HCL 25 MG TAB PO SCH ×2 (05:17→12:20)
[2021-05-03 06:12] LABS: Hematocrit (blood only) 33.5 % (37-47); Hemoglobin 10.8 g/dL (12.0-16.0); Mean Corpuscular Hemoglobin 28.4 pg (25-34); Mean Corpuscular Hgb Conc 32.2 g/dL (32-36); Mean Corpuscular Volume 88.2 fL (80-100); Mean Platelet Volume 10.1 fL (7.4-10.4); Platelet Count 341 K/uL (130-400); RDW Coefficient of Variation 15.3 % (11.5-14.5); RDW Standard Deviation 48.3 fL (36.4-46.3); White Blood Count 7.11 K/uL (4.8-10.8)
[2021-05-03 06:46] LABS: Creatinine Clr Calc Pharmacy 56.9 ml/min; Est GFR (African American) 81.8 ml/min; Est GFR (Non-African American) 70.6 ml/min
[2021-05-03] MEDS: INSULIN ASPART 100 UNITS/ML 3 ML PEN SC SCH ×2 (08:18→11:53)
[2021-05-03] MEDS: APIXABAN 2.5 MG TAB PO SCH (09:19)
[2021-05-03] MEDS: AMIODARONE 200 MG TAB PO SCH (09:20)
[2021-05-03] MEDS: ATORVASTATIN 40 MG TAB PO SCH (09:21)
[2021-05-03] MEDS: BENZONATATE 100 MG CAPSULE PO SCH (09:21)
[2021-05-03] MEDS: ASPIRIN 81 MG ECTAB PO SCH (09:21)
[2021-05-03] MEDS: carvediloL 12.5 MG TAB PO SCH (09:22)
[2021-05-03] MEDS: lisinopril 40 MG TAB PO SCH (09:23)
[2021-05-03] MEDS: MULTIVITAMIN TAB PO SCH (09:23)
[2021-05-03] MEDS: SPIRONOLACTONE 12.5 MG TAB PO SCH (09:24)
[2021-05-03] MEDS: PANTOprazole 40 MG TAB PO SCH (09:24)
[2021-05-03] MEDS: FERROUS SULFATE 325 MG/7.4 ML UDP PO SCH (12:20)
[2021-05-03] MEDS ORDERED: amLODIPine BESYLATE 5 MG TAB PO SCH (21:00)
--- NOTE | 2021-05-06 21:09 | Discharge Summary ---
Date of Service May 03, 2021 Admission HPI Per Admitting Provider 72-year-old female history of vasculopath diabetic foot infection who recently underwent a femorofemoral bypass discharge April [address] Cash. She presents with a few day history of progressive coughing fever and lethargy at home. Her family member was recently discharged in the hospital with bacterial pneumonia. Patient has elevation of her white blood cell count to 16,000 today fevers at home is not hypoxic has a slightly abnormal left basilar chest x-ray. She also has a slightly reddened right groin Fem Fem bypass site which although healing well is more red than the left. Previous diabetic toe infection area looks good. In the room she is coughing with a loose productive cough she is some minor changes on exam of the left base consistent with possible pneumonia and the fact that she is recently been hospitalized will cover her for MRSA and also gram- negative pneumonia She is Covid negative Principal Diagnosis A fib with RVR Discharge Exam The patient appeared well nourished and normally developed. Vital signs as documented. Head exam is normocephalic atraumatic Neck is without JVD, thyromegaly, or carotid bruits. Lungs are rhonchi at the left base Cardiac exam, Rhythm is regular.. Systolic murmur is heard Abdominal exam reveals normal bowel sounds, soft non tender, no masses Extremities are right lower extremity trace edema Neurologic exam is alert and oriented, no focal loss of strength peripheral neuropathy Right groin incision is clean and intact it is not dry slightly erythematous left incision is clean dry and intact Right great toe with callus which reportedly is being debrided by Dr. Sarah Meyer Psychologically is without concerns for anxiety or depression Discharge Data Allergies Allergy/AdvReac Type Severity Reaction Status Date / Time fenofibrate AdvReac Intermediate INCREASED Verified 04/21/21 13:10 URINATION metoprolol AdvReac Intermediate VOMIT,DIARR Verified 04/21/21 13:10 HEA verapamil AdvReac Intermediate INCREASED Verified 04/21/21 13:10 URINATION valsartan AdvReac Mild Weakness Verified 04/21/21 13:10 Consultations 04/21/21 14:42 ED Decision to Admit Stat 04/26/21 23:50 Consult Cardiology Routine Ordered Studies 04/26/21 12:06 CT chest diagnostic wo con Routine Hospital Course (1) Atrial fibrillation with RVR: - new onset of A.fib with RVR - on max dose BB (routinely) - was on cardizem Gtt 15mg/hr-- but this was since stopped d/t multiple 2-3 sec pauses - digitalized with 50% reduced loading dose IV dig (given age) - electrolytes WNL - remained in A.Fib with variable response (80-130) - Started on Amiodarone Gtt - 04/29: converted to NSR actually with some bradycardia (47-63). - transitioned IV amiodarone to 200mg BID - will actually cut back on her dose of coreg (12.5mg bid) given the bradycardia now present - plan of care D/W Dr. Otero-- appreciate recommendations - troponin peaked at 1.34 with ischemic changes on EKG. NSTEMI likely d/t rate related ischemia in the setting of underlying CAD- see below - heparin gtt (as opposed to lovenox given anemia-- of unclear etiology, see below). H/H has remained stable, Transition Heparin Gtt to eliquis - in D/W cardiology, continue medical management, hold off cardiac cath or perfusion scan prior for OP - increase activity to see what HR does with exertion - cardiology on board-- appreciate recommendations -will discharge once BP is better controlled. increase amlodipine to 10 mg. will increase hydralazine to 25 mg PO Q6H as SBP is above 220 On 05/03 BP was better controlled once hydralazine increased to 25 mg PO Q6H. Discharge medications were reviewed with the patient. (2) NSTEMI (non-ST elevated myocardial infarction): - troponin peaked at 1.134 - noted to have ischemic changes on EKG when in A.Fib with RVR - likely type II event from supply/demand mismatch in the setting of underlying CAD - patient did have h/o CAD (cardiac cath 2019: LAMONTE to Proximal RCA, LAD with mid 20-30% stenosis, RCA with distal 40-50% stenosis) - on ASA/statin and BB - now, start heparin gtt (given #1-- which is being converted to Eliquis) - was on topical nitropaste (for vasodilation/preload reduction)--> okay to D/C this - cardiology on board-- appreciate recommendations. d/W Dr. Otero who feels patient may need further coronary study prior to D/C to home (? cardiac cath) (3) Anemia: - new (compared to old labs--> 11.2 beginning of this month) - has been hovering in the 7-8's since this admission. - likely multifactorial (dilutional, recent endovascular surgery, multiple labs draws, and dilutional as was volume overloaded) - 04/28: Hgb 7.9 in the setting of uptrending troponin - transfused 2U packed RBCs (as thought to benefit from the O2 carrying capacity of blood). Hgb now stable in the 10's (and tolerant to heparin gtt x days) - does not seem to be exsanguinating at this time. On heparin (over lovenox) as can be shut off should she become HD unstable and her H/H gtt - protonix started empirically for GI prophylaxis - iron level 47--> started on supplementation - with transition of heparin gtt to oral eliquis, need to continue to monitor H/H closely (4) Pneumonia: - reason for admission: presented to the ED on 04/21 with fever (at home), progressive cough and lethargy - W/U in the ED showed leukocytosis of 16.21 but she was afebrile and HD stable and her CXR showed left airspace Dz - she was not hypoxic at rest but did desaturate to 84% with minimal exertion - hospitalized and started on Zosyn (for HCAP given recent hospitalization for fem-fem bypass 04/04 - 04/07) and Vancomycin - Vancomycin was then transitioned to Doxycycline for atypical coverage (for CAP) - her WBC has since normalized - she has shown favorable response - treated with mucolytic agents and nebulized treatments--> which have since concluded - has completed full course of antibiotics (zosyn and doxy) (5) Volume overload: - repeat CXR done and inconclusive - CT done showing improved airspace disease but with interstitial edema (was volume overloaded even before her A.Fib with RVR but of course her uncontrolled HR only worsened this) - has reported h/o CHF but NOT on lasix/Bumex routinely (does take aldactone) - lasix trials given with adequate response - On disease modifying agents: BB, hydralazine, ACEI (hydaralzine and ACEI) - additional dose of lasix IV today as increased cough/edema noted and now requiring supplemental O2 - echocardiogram to assess LV function: hyperdynamic. no RWMA (6) Hyponatremia: - 129 initially--> suspected to be hypervolemic hyponatremia - improved with lasix - currently 136 (7) LEV (acute kidney injury): - resolved - creatinine 0.86 today (8) PAD (peripheral artery disease): - s/p fem-fem bypass 04/04 - continue ASA, statin therapy (9) Pulmonary nodule: - noted on CT. will need repeat imaging in 6 months (10) CAD (coronary artery disease): - see above - continue ASA, statin, BB as prior to hospitalization (11) Type 2 diabetes mellitus with diabetic neuropathy, unspecified: - continue accuchecks and SS/ correction dosing as warranted - Metformin and Amaryl on hold (12) Hypertension: -Longstanding history of HTN (which is biggest risk factor for her atrial fibrillation) - was marginally hypotensive when she was in a.fib with RVR (for which her lisinopril, clonidine and hydralazine was held - now hypertensive (despite resuming some of this meds) - 1 dose IV hydralazine to be given now (04/29 for BP 194/112 wuth subsequent BP of 154/80) - continue hold lisinopril, clonidine, norvasc, hydralazine and decreased dose of Coreg as outlined above. - further titration of meds if BP remains elevated -Added amlodipine. Plan of care to be discussed with Dr. Perdue and Dr. Otero Suspect patient can be D/C'ed within the next 24-48 hours (+/- cardiac cath or perfusion study prior to D/C to home--> at discretion of Cardiology) Total Time Total Time Spent Total Time Spent (In Minutes): 32 Discharge Plan Discharge Items Patient Disposition: Home - Self-Care Reason For Visit: PNEUMONIA, HYPONATREMIA, ANEMIA Discharge Diagnosis: as above. Activity: Resume your previous activity Non-emergency contact: Primary Care Provider Call non-emergency contact if: you have any medication questions Follow-up/Referrals: Mal Torres MD [Primary Care Provider] - 05/02/21 10:10 am Diet: Carb Consistent or DM2 Fluids: 1500ml (6 cups) Addtl Attending Provider Instructions: You have been hospitalized for an acute medical problem. During your stay at [facility], we have made an effort to correct the problem that brought you to the hospital while keeping you as comfortable as possible. Medications were used to bring your condition under control and your discharge instructions will include directions for any medications you should take after leaving the hospital. Please make sure you see your Primary Care Provider as part of your follow up plan. Recommend close followup with PCP and Cardio in 1-2 weeks. Pending Studies at Discharge: No Stand-Alone Forms: My [facility], Smoking Cessation Medications and DC Order Prescriptions: New amiodarone 200 mg Tablet 200 mg PO BIDM Qty: 60 RF: 0 apixaban 5 mg tablet 5 mg PO BID Qty: 60 RF: 0 ferrous sulfate 325 mg (65 mg iron) tablet 325 mg PO BID Qty: 60 RF: 0 pantoprazole 40 mg Tablet,Delayed Release (Dr/Ec) 40 mg PO DAILY Qty: 30 RF: 0 hydralazine 25 mg Tablet 25 mg PO Q6HWA 30 Days Qty: 120 RF: 0 Continued carvedilol 25 mg tablet 25 mg PO BID RF: 0 clonidine HCl 0.1 mg tablet 0.1 mg PO HS RF: 0 aspirin 81 mg Tablet,Delayed Release (Dr/Ec) 81 mg PO HS RF: 0 metformin 500 mg tablet extended release 24 hr 1,000 mg PO BIDM RF: 0 potassium chloride 10 mEq Tablet Extended Release 10 meq PO DAILY PRN (Reason: Cramps) RF: 0 lisinopril [Zestril] 40 mg tablet 40 mg PO QAM RF: 0 coenzyme Q10 [CoQ-10] 100 mg Capsule 100 mg PO QAM RF: 0 [place] 3-6-9 1,200 mg Capsule 1 cap PO QDD RF: 0 nmxvrktkx-MUV-AB-acetaminophen 7.5-60-30-1,000 mg/30 mL Liquid 30 ml PO DIRECTED PRN (Reason: Cold Symptoms) RF: 0 glimepiride 4 mg tablet 4 mg PO BID Qty: 60 RF: 0 multivitamin Tablet 1 tab PO QAM RF: 0 atorvastatin 40 mg Tablet 40 mg PO QAM RF: 0 spironolactone 25 mg Tablet 12.5 mg PO QAM RF: 0 Changed amlodipine 10 mg Tablet 10 mg PO QPM Qty: 30 RF: 0 Discontinued hydralazine 25 mg Tablet 25 mg PO QAM RF: 0 Discharge Orders: Discharge Order (Routine); Ordered 05/03/21 Ordered By: Barry Schaefer/Other Patient Handouts: A1C, Managing Type 2 Diabetes, ED Atrial Fibrillation Admission Data Admit Date/Time: 04/21/21 14:45 Attending Provider: Barry De Luna Admit Provider: Gurwinder Casiano Primary Care Provider: Mal Torres Other Providers: Hermann Otero ; Devon Perdue Other Interventions: Discharge Summary Assessment (RN) Last Done: 05/03/21 12:11 Coding Level of Care Code D/C DAY MANAGEMENT >30 MINS Diagnoses Atrial fibrillation with RVR I48.91 NSTEMI (non-ST elevated myocardial infarction) I21.4 Anemia D64.9 Pneumonia J18.9 Laterality: left Lung location: lower lobe of lung Pneumonia type: due to unspecified organism Volume overload E87.70 Hyponatremia E87.1 LEV (acute kidney injury) N17.9 PAD (peripheral artery disease) I73.9 Pulmonary nodule R91.1 CAD (coronary artery disease) I25.10 Type 2 diabetes mellitus with diabetic neuropathy, unspecified E11.40 Hypertension I10 Hypertension type: unspecified
== END 2021-05-03 13:37 | disposition home or self-care (01) | DRG 177 ==
LOC: ED 10:55 → SUATTDRO 14:45 → 3W 14:45 → 1E 04-26 22:33 → 2S 04-26 22:34

== ENCOUNTER 2021-05-16 16:27 | Inpatient (IN) ==
[2021-05-16 17:30] LABS: Basophils # (auto) 0.01 K/uL (0-0.2); Basophils % (auto) 0.1 %; Eosinophils # (auto) 0.06 K/uL (0-0.5); Eosinophils % (auto) 0.6 %; Hematocrit (blood only) 29.5 % (37-47); Immature Granulocytes # (auto) 0.03 K/uL (0.00-0.02); Immature Granulocytes % (auto) 0.3 %; Lymphocytes # (auto) 0.59 K/uL (1.2-3.4); Mean Corpuscular Hgb Conc 33.9 g/dL (32-36); Mean Corpuscular Volume 82.6 fL (80-100); Mean Platelet Volume 11.9 fL (7.4-10.4); Monocytes # (auto) 0.93 K/uL (0.11-0.59); Monocytes % (auto) 9.4 %; Neutrophils # (auto) 8.23 K/uL (1.4-6.5); Neutrophils % (auto) 83.6 %; Platelet Count 417 K/uL (130-400); RDW Coefficient of Variation 14.6 % (11.5-14.5); RDW Standard Deviation 44.4 fL (36.4-46.3); Red Blood Count 3.57 M/uL (4.2-5.4); White Blood Count 9.85 K/uL (4.8-10.8)
[2021-05-16] MEDS: SODIUM CHLORIDE 0.9% 1000ML 1,000 ML IV SCH (17:34)
--- NOTE | 2021-05-16 17:49 | Emergency Department Note ---
History of Present Illness General Chief complaint: Abnormal Labs/Diagnostic Testing Stated complaint: LOW SODIUM LEVEL, DR SONI TO ER Time Seen by Provider: 05/16/21 16:49 History of Present Illness Provider complaint: Weakness low-sodium Onset (ago): day(s) 2 Maximum Pain Intensity: 5 Associated symptoms: + cough, + nausea/vomiting, + shortness of breath and + weakness; no chest pain or no fever/chills 80-year-old female presents emergency department for weakness. Patient reports she has been feeling increasingly weak over the last few days. Patient states she was recently admitted to the hospital for pneumonia and low sodium. Patient states she went to her PCP follow-up on yesterday and they did blood work and then told her to come to the emergency department because her sodium was low. Patient denies any recent falls. No chest pain. Patient states she is still having cough and exertional dyspnea due to the pneumonia. No fevers. Home Medications Medication Instructions Recorded Confirmed Type aspirin 81 mg tablet,delayed 81 mg PO HS 03/04/20 04/21/21 History release carvedilol 25 mg tablet 25 mg PO BID 03/04/20 04/21/21 History clonidine HCl 0.1 mg tablet 0.1 mg PO HS 03/04/20 04/21/21 History metformin 500 mg tablet,extended 1,000 mg PO BIDM 03/04/20 04/21/21 History release 24 hr coenzyme Q10 100 mg capsule 100 mg PO QAM 12/01/20 04/21/21 History (CoQ-10) fish, borage, flaxseed oils-omega 1 cap PO QDD 12/01/20 04/21/21 History 3,6,9 comb no.1 1,200 mg capsule ([place] 3-6-9) lisinopril 40 mg tablet (Zestril) 40 mg PO QAM 12/01/20 04/21/21 History potassium chloride 10 mEq 10 meq PO DAILY PRN 12/01/20 04/21/21 History tablet,extended release atorvastatin 40 mg tablet 40 mg PO QAM 02/26/21 04/21/21 History multivitamin 1 tab PO QAM 02/26/21 04/21/21 History spironolactone 25 mg tablet 12.5 mg PO QAM 02/26/21 04/21/21 History wcrqdtidw-RCD-ZU-acetaminophen 7.5 30 ml PO DIRECTED PRN 04/21/21 04/21/21 History mg-60 [id number]/30mL oral liqd amiodarone 200 mg tablet 200 mg PO BIDM #60 tab 05/02/21 Rx amlodipine 10 mg tablet 10 mg PO QPM #30 tab 05/02/21 Rx apixaban 5 mg tablet 5 mg PO BID #60 tab 05/02/21 Rx ferrous sulfate 325 mg (65 mg 325 mg PO BID #60 tab 05/02/21 Rx iron) tablet glimepiride 4 mg tablet 4 mg PO BID #60 tab 05/02/21 04/21/21 Rx pantoprazole 40 mg tablet,delayed 40 mg PO DAILY #30 tab 05/02/21 Rx release hydralazine 25 mg tablet 25 mg PO Q6HWA 30 Days #120 tab 05/03/21 Rx Allergies Allergy/AdvReac Type Severity Reaction Status Date / Time fenofibrate AdvReac Intermediate INCREASED Verified 04/21/21 13:10 URINATION metoprolol AdvReac Intermediate VOMIT,DIARR Verified 04/21/21 13:10 HEA verapamil AdvReac Intermediate INCREASED Verified 04/21/21 13:10 URINATION valsartan AdvReac Mild Weakness Verified 04/21/21 13:10 Past Med/Surg History Medical History CAD (coronary artery disease) CVA (cerebral vascular accident) (~2019) no deficits Hyperlipemia Hypertension Myocardial infarct, old follows with Dr. Mcpherson PAD (peripheral artery disease) Pneumonia hx S/P angiogram of extremity (02/02/21) Type 2 diabetes mellitus with diabetic neuropathy, unspecified NIDDM Surgical History H/O removal of cyst right abdominal area History of bunionectomy of right great toe History of cardiac cath (~2019) History of heart artery stent (~2019) x1. at [facility]. Status post ORIF of fracture of ankle Family History Other No family history of adverse response to anesthesia Social History Smoking Status: Never smoker Tobacco Type: Cigarettes Number of Years Since Quit: 40; Second Hand Exposure: No; Hx Alcohol Use: No Hx Substance Use: No Preferred Language: Wolof Communication Ability: Effective Eye Care Professional Required: No Beliefs That Will Affect Care: None marital status: / Current Living Situation: Alone Current Living Situation Comment: ranch style home current occupational status: retired How many Children do You have: 1 Feels Safe at Home: Yes Assistive Devices: None Review of Systems A total of 10 systems reviewed and were otherwise negative Physical Exam Vital Signs Vital Signs - 24 hr 05/16/21 16:38 05/16/21 17:31 Temperature 36.7 C Temperature Source Temporal Artery Scan Pulse Rate 52 L 50 L Pulse Rate [Apical] 50 L Pulse Rhythm Regular Pulse Rhythm [Apical] Regular Respiratory Rate 19 20 Respiratory Effort / Characteristics Non-Labored Non-Labored Spontaneous Grunting Respiratory Depth Normal Normal Respiratory Pattern Regular Blood Pressure 139/49 L Blood Pressure [Right Arm] 157/69 H Blood Pressure Mean 79 Blood Pressure Mean [Right Arm] 98 Blood Pressure Position [Right Arm] Lying Pulse Oximetry 94 92 Oxygen Delivery Method Room Air Room Air Sepsis Recent Fever Within 48 Hours No Sepsis New/Unexplained Change in Mental Status N/A Sepsis Action Taken by Nursing No Action Required Physical Exam GENERAL: She is oriented to person, place, and time. She appears well-developed and well-nourished. She does not appear distressed. HENT: Exam performed. -Head: Normocephalic and atraumatic. -Right Ear: External ear normal. No mastoid tenderness. -Left Ear: External ear normal. No mastoid tenderness. -Mouth/Throat: The oropharynx is clear and moist. No trismus in the jaw. No dental abscesses or uvula swelling. No oropharyngeal exudate or tonsillar abscesses. EYES: Conjunctivae and EOM are normal. Pupils are equal, round, and reactive to light. Right eye exhibits no discharge. Left eye exhibits no discharge. No scleral icterus. NECK: Normal range of motion. Neck supple. No JVD present. No spinous process tenderness present. No carotid bruit present. No rigidity. No tracheal deviation and normal range of motion present. No Brudzinski's sign and no Kernig's sign noted. CV: Normal rate, regular rhythm, normal heart sounds and intact distal pulses. There is no peripheral edema. Palpable radial pulses bue. PULM/CHEST: Rhonchi bilaterally. -Chest Wall: She exhibits no tenderness. ABD: The abdomen is soft. Bowel sounds are normal. She has no distension. No mass is present. There is no tenderness. There is no rebound, no guarding, no Ricks's sign and no tenderness at McBurney's point. Rovsig negative MUSC/SKEL: Normal range of motion. There is no peripheral edema, tenderness or deformity. LYMPH: No cervical adenopathy. NEURO: She is alert and oriented to person, place, and time. She has normal strength. No cranial nerve deficit or sensory deficit. Coordination and gait normal. GCS eye subscore is 4. GCS verbal subscore is 5. GCS motor subscore is 6. Cerebellar tests wnl. SKIN: Skin is warm and dry. She is not diaphoretic. PSYCH: She has a normal mood and affect. Behavior is normal. Judgment and thought content normal. Course Course 1649: The patient was evaluated in room B8. A complete history and physical exam was performed Cardiac monitoring: An order was placed for continuous cardiac monitoring. The monitor shows a rate of 50 with sinus rhythm 1830: Vital signs stable. Sodium 118. Potassium 5.1. Magnesium 1.4. No neurological dysfunction or seizure. No need for hypertonic saline at this point. Sodium we gently repleted with normal saline fluids. Magnesium repleted in the emergency department. [facility] team Dr. Ca team notified. Administered Medications Sodium Chloride (Nss 1000ml) 1,000 mls @ 80 mls/hr IV .[id number] [facility] Stop: 06/15/21 17:29 Last Admin: 05/16/21 17:34 Dose: 80 mls/hr Documented by: [id number] Medical Decision Making Laboratory Data Result diagrams: 05/16/21 17:10 05/16/21 17:10 Lab Results 05/16/21 05/16/21 Range/Units 17:10 17:10 WBC 9.85 (4.8-10.8) K/uL RBC 3.57 L (4.2-5.4) M/uL Hgb 10.0 L (12.0-16.0) g/dL Hct 29.5 L (37-47) % MCV 82.6 (80-100) fL MCH 28.0 (25-34) pg MCHC 33.9 (32-36) g/dL RDW Std Deviation 44.4 (36.4-46.3) fL RDW Coeff of Alysa 14.6 H (11.5-14.5) % Plt Count 417 H (130-400) K/uL MPV 11.9 H (7.4-10.4) fL Immature Gran % (Auto) 0.3 % Neut % (Auto) 83.6 % Lymph % (Auto) 6.0 % [place] % (Auto) 9.4 % Eos % (Auto) 0.6 % Baso % (Auto) 0.1 % Neut # (Auto) 8.23 H (1.4-6.5) K/uL Lymph # (Auto) 0.59 L (1.2-3.4) K/uL [place] # (Auto) 0.93 H (0.11-0.59) K/uL Eos # (Auto) 0.06 (0-0.5) K/uL Baso # (Auto) 0.01 (0-0.2) K/uL Immature Gran # (Auto) 0.03 H (0.00-0.02) K/uL Sodium 118 L* (136-145) mmol/L Potassium 5.1 (3.5-5.1) mmol/L Chloride 88 L (98-107) mmol/L Carbon Dioxide 20 L (21-32) mmol/L Anion Gap 9.0 (3-11) BUN 18 (7-18) mg/dl Creatinine 0.94 (0.6-1.2) mg/dl Est Cr Clr Drug Dosing Not Reportable Est GFR ( Amer) 67.3 ml/min Est GFR (Non-Af Amer) 58.1 ml/min BUN/Creatinine Ratio 19.3 (10-20) Glucose 204 H (70-99) mg/dl Calcium 8.5 (8.5-10.1) mg/dl Magnesium 1.4 L (1.8-2.4) mg/dl Imaging Data Radiologist's Impression: Chest X-Ray 05/16/21 17:49 XR chest 2V PA/lateral CLINICAL HISTORY: weakness recent pneumonia TECHNIQUE: AP and lateral frontal radiograph of the chest was obtained. Comparison: Comparison is made to chest one view 04/26/2021 FINDINGS: No lines and tubes are seen. Cardiomegaly is noted. The lungs are clear. Small bilateral pleural effusions are seen. IMPRESSION: Small bilateral pleural effusions. Cardiomegaly. No airspace opacities are seen. ACT 112: Negative or not required by law. Electronically signed by: Umair Tan M.D. 05/16/2021 6:28 PM ECG Data Indication: + weakness Rate (beats per minute): 51 Rhythm: + sinus bradycardia ECG Intervals/blocks: + First degree AV block, + Normal QRS and + Normal QT-c ECG ST segments: + Normal ST segments MDM Narrative Vital signs stable. Sodium 118. Potassium 5.1. Magnesium 1.4. No neurological dysfunction or seizure. No need for hypertonic saline at this point. Sodium we gently repleted with normal saline fluids. Magnesium repleted in the emergency department. Patient will be admitted to the [facility] hospitalist team Dr. Ca team notified. Impression & Plan Hyponatremia, Hypomagnesemia Discharge Plan Visit Data Chief Complaint: Abnormal Labs/Diagnostic Testing Stated Complaint: LOW SODIUM LEVEL, DR REFR'D TO ER ED Provider: Manish Parks Discharge Problem: Hyponatremia, Hypomagnesemia Patient Disposition: Admitted As Inpatient Forms Stand Alone Forms: My [facility] Prescriptions Prescriptions: No Action carvedilol 25 mg tablet 25 mg PO BID RF: 0 clonidine HCl 0.1 mg tablet 0.1 mg PO HS RF: 0 aspirin 81 mg Tablet,Delayed Release (Dr/Ec) 81 mg PO HS RF: 0 metformin 500 mg tablet extended release 24 hr 1,000 mg PO BIDM RF: 0 potassium chloride 10 mEq Tablet Extended Release 10 meq PO DAILY PRN (Reason: Cramps) RF: 0 lisinopril [Zestril] 40 mg tablet 40 mg PO QAM RF: 0 coenzyme Q10 [CoQ-10] 100 mg Capsule 100 mg PO QAM RF: 0 [place] 3-6-9 1,200 mg Capsule 1 cap PO QDD RF: 0 ypawhcavu-WBI-YX-acetaminophen 7.5-60-30-1,000 mg/30 mL Liquid 30 ml PO DIRECTED PRN (Reason: Cold Symptoms) RF: 0 amiodarone 200 mg Tablet 200 mg PO BIDM Qty: 60 RF: 0 apixaban 5 mg tablet 5 mg PO BID Qty: 60 RF: 0 ferrous sulfate 325 mg (65 mg iron) tablet 325 mg PO BID Qty: 60 RF: 0 pantoprazole 40 mg Tablet,Delayed Release (Dr/Ec) 40 mg PO DAILY Qty: 30 RF: 0 amlodipine 10 mg Tablet 10 mg PO QPM Qty: 30 RF: 0 glimepiride 4 mg tablet 4 mg PO BID Qty: 60 RF: 0 hydralazine 25 mg Tablet 25 mg PO Q6HWA 30 Days Qty: 120 RF: 0 multivitamin Tablet 1 tab PO QAM RF: 0 atorvastatin 40 mg Tablet 40 mg PO QAM RF: 0 spironolactone 25 mg Tablet 12.5 mg PO QAM RF: 0 Referrals Referrals: Mla Torres MD [Primary Care Provider] -
[2021-05-16 17:55] LABS: BUN Creatinine Ratio 19.3 (10-20); Blood Urea Nitrogen 18 mg/dl (7-18); Calcium 8.5 mg/dl (8.5-10.1); Carbon Dioxide 20 mmol/L (21-32); Chloride 88 mmol/L (98-107); Est GFR (African American) 67.3 ml/min; Est GFR (Non-African American) 58.1 ml/min; Glucose 204 mg/dl (70-99); Magnesium 1.4 mg/dl (1.8-2.4); Potassium 5.1 mmol/L (3.5-5.1); Sodium 118 mmol/L (136-145)
--- NOTE | 2021-05-16 18:30 | XRay Report ---
XR chest 2V PA/lateral CLINICAL HISTORY: weakness recent pneumonia TECHNIQUE: AP and lateral frontal radiograph of the chest was obtained. Comparison: Comparison is made to chest one view 04/26/2021 FINDINGS: No lines and tubes are seen. Cardiomegaly is noted. The lungs are clear. Small bilateral pleural effu sions are seen. IMPRESSION: Small bilateral pleural effusions. Cardiomegaly. No airspace opacities are seen. ACT 112: Negative or not required by law. Electronically signed by: Umair Tan M.D. 05/16/2021 6:28 PM
[2021-05-16] MEDS: MAGNESIUM SULFATE / D5W 1 GM/100 ML BAG IV SCH ×2 (18:50→19:52)
--- NOTE | 2021-05-16 21:27 | History & Physical Report ---
Date of Service May 16, 2021 Assessment & Plan (1) Hyponatremia: Plan: -Appears to be dry on exam, likely due to low p.o. intake from nausea and weakness -Currently only symptom seems to be generalized weakness -History suggestive of hypovolemic hypoosmotic hyponatremia -Serum osmolality at 251, urine osmolality and random sodium are pending. -Gently rehydrating patient with normal saline at 80 mL/h -BMP recheck at 11 PM and a.m. -Give Zofran for nausea as needed to aid in eating food (2) Hypomagnesemia: Plan: -Likely due to poor p.o. intake -Patient given a total of 2 g magnesium via IV in ED -Recheck magnesium in morning (3) Cellulitis of foot associated with diabetes mellitus: Plan: -Work-up for cellulitis of foot performed as an outpatient and started on Keflex 4 times daily, continue this medication (4) Type 2 diabetes mellitus with diabetic neuropathy, unspecified: Plan: -Discontinued oral diabetic medications -Started 7 units of Lantus twice daily with sliding scale -A.m. hemoglobin A1c ordered (5) Hypertension: Plan: -Continue amlodipine, carvedilol, clonidine, hydralazine, lisinopril, and spironolactone -Consider work-up for secondary causes of hypertension (6) Paroxysmal atrial fibrillation: Plan: -Anticoagulated on Eliquis 5 mg p.o. twice daily -Continue amiodarone 200 mg twice daily -Continue carvedilol 25 mg twice daily (7) Anemia: Plan: -Seems stable from discharge 2 weeks ago for which her hemoglobin was 10.8, hemoglobin today is 10.0. -Trend morning CBC (8) CAD (coronary artery disease): Plan: -Continue atorvastatin and aspirin (9) PAD (peripheral artery disease): Plan: -Continue atorvastatin and aspirin (10) Nausea: Plan: -Zofran every 6 hour as needed for nausea (11) Hyperlipemia: Plan: -Continue atorvastatin Dispo: Med/Surg with telemetry Diet: DM 2 diet DVT prophylaxis: Eliquis Code: Full code History of Present Illness Chief Complaint: Abnormal Labs/ Hyponatremia Primary Care Provider: Mal Torres MD Patient is a 80-year-old female with past medical history of NSTEMI, DM 2, paroxysmal atrial fibrillation, cellulitis, CAD, PAD, resistant hypertension, and hyperlipidemia being admitted to the hospital for hyponatremia. 2 weeks ago patient was discharged from the hospital and her stay was due to pneumonia, A. fib with RVR that was new onset, and anemia. After her discharge she was feeling well for about 3 days and then began to feel progressively more weak. She reports that she can ambulate on her own, however, over the past week she has been finding it more difficult to ambulate longer distances due to her diffuse weakness. She reports that during this timeframe she has also been fatigued and sleeping for hours at a time. In addition she is also been feeling nauseated which is letter to not eat. She reports this is both in part to the nausea as well as the fatigue as she "cannot eat while she is sleeping". She does state that she has been able to drink fluids but not as much as she typically does. Between her discharge 2 weeks ago and her return to the hospital today, she had gone to her primary care office for evaluation of a rash that developed on her right foot which was deemed to be cellulitis. She is currently being treated on Keflex 500 mg 4 times daily. She reports that it has been decreasing in size since beginning this regimen. Patient denies any headaches, head trauma, recent brain bleeds, seizure activity, vomiting, or diarrhea. No fevers or sick contacts that she is aware of. Patient reports no other complaints at this time. Allergies Allergy/AdvReac Type Severity Reaction Status Date / Time fenofibrate AdvReac Intermediate INCREASED Verified 05/16/21 19:06 URINATION metoprolol AdvReac Intermediate VOMIT,DIARR Verified 05/16/21 19:06 HEA verapamil AdvReac Intermediate INCREASED Verified 05/16/21 19:06 URINATION valsartan AdvReac Mild Weakness Verified 05/16/21 19:06 Home Medications Medication Instructions Recorded Confirmed Type aspirin 81 mg tablet,delayed 81 mg PO HS 03/04/20 05/16/21 History release carvedilol 25 mg tablet 25 mg PO BID 03/04/20 05/16/21 History clonidine HCl 0.1 mg tablet 0.1 mg PO HS 03/04/20 05/16/21 History metformin 500 mg tablet,extended 1,000 mg PO BIDM 03/04/20 05/16/21 History release 24 hr coenzyme Q10 100 mg capsule 100 mg PO QAM 12/01/20 05/16/21 History (CoQ-10) fish, borage, flaxseed oils-omega 1 cap PO QDD 12/01/20 05/16/21 History 3,6,9 comb no.1 1,200 mg capsule ([place] 3-6-9) lisinopril 40 mg tablet (Zestril) 40 mg PO QAM 12/01/20 05/16/21 History potassium chloride 10 mEq 10 meq PO DAILY PRN 12/01/20 05/16/21 History tablet,extended release atorvastatin 40 mg tablet 40 mg PO QAM 02/26/21 05/16/21 History multivitamin 1 tab PO QAM 02/26/21 05/16/21 History spironolactone 25 mg tablet 12.5 mg PO QAM 02/26/21 05/16/21 History ztrdkbzeg-QMQ-SS-acetaminophen 7.5 30 ml PO DIRECTED PRN 04/21/21 05/16/21 History mg-60 [id number]/30mL oral liqd amiodarone 200 mg tablet 200 mg PO BIDM #60 tab 05/02/21 05/16/21 Rx amlodipine 10 mg tablet 10 mg PO QPM #30 tab 05/02/21 05/16/21 Rx apixaban 5 mg tablet 5 mg PO BID #60 tab 05/02/21 05/16/21 Rx ferrous sulfate 325 mg (65 mg 325 mg PO BID #60 tab 05/02/21 05/16/21 Rx iron) tablet glimepiride 4 mg tablet 4 mg PO BID #60 tab 05/02/21 05/16/21 Rx pantoprazole 40 mg tablet,delayed 40 mg PO DAILY #30 tab 05/02/21 05/16/21 Rx release hydralazine 25 mg tablet 25 mg PO Q6HWA 30 Days #120 tab 05/03/21 05/16/21 Rx cephalexin 500 mg capsule 500 mg PO QID 05/16/21 05/16/21 History Past Med/Surg History Medical History CAD (coronary artery disease) CVA (cerebral vascular accident) (~2019) no deficits Hyperlipemia Hypertension Myocardial infarct, old follows with Dr. Mcpherson PAD (peripheral artery disease) Pneumonia hx S/P angiogram of extremity (02/02/21) Type 2 diabetes mellitus with diabetic neuropathy, unspecified NIDDM Surgical History H/O removal of cyst right abdominal area History of bunionectomy of right great toe History of cardiac cath (~2018) History of heart artery stent (~2018) x1. at [facility] [place]. 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 Beliefs That Will Affect Care: None marital status: / Current Living Situation: Alone Current Living Situation Comment: [place] style home current occupational status: retired How many Children do You have: 1 Feels Safe at Home: Yes Assistive Devices: None Review of Systems Review of Systems: All systems reviewed & are unremarkable except as noted in HPI & below Physical Exam Constitutional: WD/WN, vitals as above + obese and cooperative Eyes: + anicteric sclerae Neck: trachea midline, no thyromegaly Respiratory: normal respiratory effort, lungs clear to auscultation Cardiovascular: RRR, no murmur, no edema Rate/Rhythm: + bradycardic Vessels: no JVD Gastrointestinal (Abdomen): normal bowel sounds, soft, nontender, no hepatosplenomegaly Musculoskeletal: no cyanosis or clubbing, extremities motor strength 5/5 Skin: + turgor decreased Erythema of the right lateral malleoli are area spanning about 5 to 6 cm in diameter. It is hyperthermic to palpation. There is also tenderness to palpation of the rash. Neurologic: CN's II-XI intact bilaterally and moves all extremities Psychiatric: A+Ox3, euthymic affect Eye Contact: good eye contact Lymphatic: no cervical or axillary lymphadenopathy Results & Data Results & Data ([facility]) Vital Signs (Past 12 Hours) Vital Signs Temp Pulse Pulse Resp BP BP Pulse Ox 05/16/21 21:00 54 L 19 95 05/16/21 20:50 53 L 20 94 05/16/21 20:41 65 23 93 05/16/21 20:30 89 L 05/16/21 20:20 53 L 17 91 05/16/21 20:10 52 L 14 90 05/16/21 20:00 52 L 19 92 05/16/21 19:50 53 L 15 92 05/16/21 19:42 50 L 14 145/54 H 96 05/16/21 19:40 52 L 19 92 05/16/21 19:30 51 L 22 91 05/16/21 19:20 51 L 18 91 05/16/21 19:10 50 L 20 90 05/16/21 19:00 51 L 18 88 L 05/16/21 18:53 50 L 20 170/96 H 94 05/16/21 18:50 49 L 19 92 05/16/21 18:46 50 L 15 05/16/21 17:50 51 L 19 91 05/16/21 17:40 50 L 20 92 05/16/21 17:34 49 L 19 93 05/16/21 17:31 50 L 50 L 20 157/69 H 92 05/16/21 16:38 36.7 C 52 L 19 139/49 L 94 Code Status & VTE Plan VTE Prophylaxis Plan VTE Prophylaxis will be ordered: No Supervising Physician Co-Signing Physician Notes Patient seen and examined, chart reviewed, casea discussed with Dr. Isaacs and I agree with his assessment and plan as documented above. In brief, patient is a 80yo female presenting with weakness, hyponatremia with Oj=[id number]. On exam she is AA&O, NAD, resting comfortably HEENT - NC/AT, PERRL, mmm, neck supple Heart - +S1/S2, regular Lungs - CTA Abd- +BS, soft, NT/ND Ext - no edema, redness and warmth of right foot/ankle. No crepitus/bullae or lymphangitis Labs and images reviewed Assessment/Plan - hyponatremia with Hz=051. Generalized weakness, otherwise no neurological complaints. Patient appears dry on exam, poor oral intake of late. -Gentle hydration. Check urine and serum osm and urine Na for further workup. Trend BMP -Continue Keflex for cellulitis of RLE - patient afebrile, nontoxic in appearance -Remainder of plan as above Resident Activity Tracking Resident Involvement: Resident Care Provided Care Provided: [facility] (1) Hypertension Hypertension type: unspecified Qualified Code(s): I10 - Essential (primary) hypertension
[2021-05-16] MEDS ORDERED: cephALEXin 250 MG CAP PO ONE (21:57)
[2021-05-16] MEDS ORDERED: hydrALAZINE HCL 25 MG TAB PO STA (21:57)
[2021-05-16] MEDS ORDERED: carvediloL 25 MG TAB PO ONE (21:57)
[2021-05-16] MEDS ORDERED: ASPIRIN 81 MG ECTAB PO STA (21:57)
[2021-05-16] MEDS ORDERED: cloNIDine HCL 0.1 MG TAB PO ONE (21:57)
[2021-05-16] MEDS ORDERED: APIXABAN 2.5 MG TAB PO STA (21:57)
[2021-05-16] MEDS ORDERED: amLODIPine BESYLATE 5 MG TAB PO ONE (21:57)
[2021-05-16] MEDS ORDERED: AMIODARONE 200 MG TAB PO ONE (21:57)
[2021-05-17 00:08] LABS: BUN Creatinine Ratio 16.6 (10-20); Blood Urea Nitrogen 16 mg/dl (7-18); Calcium 8.9 mg/dl (8.5-10.1); Carbon Dioxide 22 mmol/L (21-32); Chloride 87 mmol/L (98-107); Est GFR (African American) 64.8 ml/min; Est GFR (Non-African American) 55.9 ml/min; Glucose 247 mg/dl (70-99); Potassium 4.7 mmol/L (3.5-5.1); Sodium 118 mmol/L (136-145)
[2021-05-17] MEDS ORDERED: CARBOHYDRATES FOR HYPOGLYCEMIA PO PRN (01:03)
[2021-05-17] MEDS ORDERED: GLUCAGON FOR INJ 1 MG VIAL SQ PRN (01:03)
[2021-05-17] MEDS ORDERED: GLUCOSE 10 TABS/TUBE PO PRN (01:03)
[2021-05-17] MEDS ORDERED: DC ALL PREVIOUSLY ORDERED DIABETES MEDS ONE (01:03)
[2021-05-17] MEDS ORDERED: ACETAMINOPHEN 325 MG TAB PO PRN (01:03)
[2021-05-17] MEDS ORDERED: POLYETHYLENE (MIRALAX) 17 GM PACK PO PRN (01:03)
[2021-05-17] MEDS ORDERED: GLIMEPIRIDE 2 MG TAB PO SCH (01:03)
[2021-05-17] MEDS ORDERED: GLUCOSE 40% GEL 15 GM TUBE PO PRN (01:03)
[2021-05-17] MEDS ORDERED: ONDANSETRON INJ 2 MG/ML 2 ML VIAL IV PRN (01:03)
[2021-05-17] MEDS ORDERED: DEXTROSE 50% 50 ML SYRINGE IV PRN (01:03)
[2021-05-17] MEDS: APIXABAN 5 MG TABLET PO SCH ×3 (01:48→20:55)
[2021-05-17] MEDS: carvediloL 25 MG TAB PO SCH ×2 (01:48→10:57)
[2021-05-17] MEDS: hydrALAZINE HCL 25 MG TAB PO SCH ×5 (02:03→23:31)
[2021-05-17] MEDS: cephALEXin 500 MG CAP PO SCH ×5 (02:03→22:33)
[2021-05-17] MEDS: cloNIDine HCL 0.1 MG TAB PO SCH ×2 (02:03→22:34)
[2021-05-17] MEDS: amLODIPine BESYLATE 5 MG TAB PO SCH ×2 (02:04→22:34)
[2021-05-17] MEDS: INSULIN GLARGINE SOLOSTAR 100 UNITS/ML 3 ML PEN SC SCH ×3 (02:15→21:29)
[2021-05-17] MEDS: INSULIN ASPART PER UNIT SC SCH ×5 (02:15→21:05)
--- NOTE | 2021-05-17 03:00 | Billing Data ---
Date of Service May 16, 2021 Coding Level of Care Code 75766 Initial Inpt Care Lvl 3
[2021-05-17 04:43] LABS: Hematocrit (blood only) 25.9 % (37-47); Hemoglobin 8.7 g/dL (12.0-16.0); Mean Corpuscular Hemoglobin 28.2 pg (25-34); Mean Corpuscular Hgb Conc 33.6 g/dL (32-36); Mean Corpuscular Volume 83.8 fL (80-100); Platelet Count 367 K/uL (130-400); RDW Coefficient of Variation 14.6 % (11.5-14.5); RDW Standard Deviation 44.8 fL (36.4-46.3); Red Blood Count 3.09 M/uL (4.2-5.4); White Blood Count 8.62 K/uL (4.8-10.8)
[2021-05-17] MEDS: SODIUM CHLORIDE 0.9% 1000ML 1,000 ML IV SCH (04:52)
[2021-05-17 05:09] LABS: BUN Creatinine Ratio 19.9 (10-20); Blood Urea Nitrogen 16 mg/dl (7-18); Calcium 8.4 mg/dl (8.5-10.1); Carbon Dioxide 23 mmol/L (21-32); Chloride 89 mmol/L (98-107); Est GFR (African American) 80.6 ml/min; Est GFR (Non-African American) 69.6 ml/min; Glucose 161 mg/dl (70-99); Potassium 4.6 mmol/L (3.5-5.1); Sodium 117 mmol/L (136-145)
[2021-05-17] MEDS ORDERED: SODIUM CHLORIDE 3 % 500 ML IV SCH (05:30)
[2021-05-17] MEDS ORDERED: FUROSEMIDE 40 MG/4 ML VIAL IV ONE ×3 (05:43→17:33)
[2021-05-17 06:03] LABS: Magnesium 1.7 mg/dl (1.8-2.4)
[2021-05-17 07:22] LABS: Estimated Average Glucose 154 mg/dl
[2021-05-17] MEDS ORDERED: AMIODARONE 200 MG TAB PO SCH (08:00)
[2021-05-17] MEDS ORDERED: SPIRONOLACTONE 12.5 MG TAB PO SCH (09:00)
--- NOTE | 2021-05-17 10:06 | Medical Student Progress Note ---
Date of Service May 17, 2021 Assessment & Plan (1) Hyponatremia: Plan: 80 F with PMH of paroxysmal atrial fibrillation, DM2 with neuropathy, CAD with prior NSTEMI earlier this month, s/p cath and stent 2018, PAD fem-fem bypass in April, resistant HTN, anemia, hyperlipidemia, current right leg cellulitis managed outpatient with Keflex, admitted for severe hyponatremia. Hypervolemic Hyponatremia - CXR 05/17: Small bilateral pleural effusions (present previous CXR). Cardiomegaly. No airspace opacities are seen. - ECHO 04/26: LV is hyperdynamic, moderate concentric LV hypertrophy, LA mildly dilated, EF >70% - BNP today 2042 (previously has had similar elevations) - Continue Lasix 40 mg - fluid restriction - Q4h BMP - less likely SIADH due to low urine sodium and low urine osmolality, though urine tests were performed after initiation of fluids, so less reliable - Nephrology consulted - less likely due to medications; on spironolactone however would not expect this degree of hyponatremia from just that medication Bradycardia - EKG: Sinus bradycardia with 1st degree AV block - Given patient's history of paroxysmal AFib with RVR, on multiple HTN medications, concern for sick sinus syndrome - Consult cardiology Hypomagnesia - Increased from 1.4 to 1.7 with 2 g Mg IV - Continue to monitor Anemia - Chronic - Hgb 8.7 this morning from 10.8 - Previous studies show baseline around 10 - Continue to monitor CBC - no signs of acute bleeding, hemodynamically stable Paroxysmal Atrial Fibrillation with RVR -Continue home regimen -Anticoagulation: Eliquis 5 mg BID -Amiodarone 200 mg BID - holding Carvedilol 25 mg BID in setting of bradycardia Nausea - Continue Zofran Q6h for nausea -Controlled Cellulitis of right foot - Started on Keflex 500mg Q4 as outpatient - Continue regimen Type 2 DM -Oral home meds held (glimepiride 4 mg BID, metformin 1000 BID) - Started on 7 units of Lantus BID with sliding scale - A1c 7 Hypertension -Continue amlodipine, clonidine, hydralazine, lisinopril, spironolactone home regimen -hold carvedilol in setting of bradycardia CAD/PAD/HLD - Prior NSTEMI (previous admission 05/2021) - S/P cardiac cath and stent 2019 -continue atorvastatin and aspirin -fem fem artery bypass 04/04/2021 - continue atorvastatin and aspirin Dispo: Med/Surg with telemetry FEN/GI: DM 2 diet, fluid restriction <2L/day DVT prophylaxis: Eliquis Code: Full code Admission and Anticipated Discharge Date Admission Date: May 16, 2021 Supervising Attestation Medical Student Supervision Note: I was personally present during medical student patient encounter and independently interviewed and examined the patient and verified the yi history and physical, reviewed labs and image studies, discussed the case with Roma Hauser and agree with the findings and care plan. Hyponatremia - unclear fluid status. low serum osmol/high urine osmol/urine sodium 20. consult nephro for input. Bradycardia - consulted cardio. Nausea - prn zofran Right foot cellulitis- with underlying edema. keflex Subjective This morning she feels very weak with difficulty breathing and fatigue talking with me. She had an episode of weakness while ambulating to the bathroom in her room this morning. Found to be hypoglycemic. Returned to bed with orange juice and snack. No recent falls, loss consciousness, or dizziness. No chest pain or tightness. No abdominal pain, nausea, or vomiting. No bloody or black stools but noticed red blood on toilet paper when wiping after BM yesterday. No blood in the toilet. No other bleeding concerns on Eliquis. Review of Systems Review of Systems: All systems reviewed & are unremarkable except as noted in Subjective Physical Exam Constitutional: WD/WN. In distress this morning, conversational dyspnea Respiratory: normal respiratory effort, lungs clear to auscultation Cardiovascular: Rate/Rhythm: regular rate and regular rhythm Heart Sounds: normal S1 and normal S2 Extremities: + edema (Nonpitting, 1+) Gastrointestinal (Abdomen): Normal bowel sounds present. Distended abdomen. Nontender. No hepatosplenomegaly. Psychiatric: A+Ox3, euthymic affect Results & Data ([facility]) Vital Signs (Past 12 Hours) Vital Signs Temp Pulse Resp BP Pulse Ox Pulse Ox 05/17/21 08:24 41 L 20 141/64 H 93 05/17/21 06:18 44 L 18 142/64 H 94 05/17/21 04:00 48 L 127/52 L 05/17/21 01:03 37.4 C 55 L 14 130/40 L 97 94 Laboratory Results Abnormal lab results 05/16/21 05/16/21 05/16/21 Range/Units 17:10 17:10 17:10 RBC 3.57 L (4.2-5.4) M/uL Hgb 10.0 L (12.0-16.0) g/dL Hct 29.5 L (37-47) % RDW Coeff of Alysa 14.6 H (11.5-14.5) % Plt Count 417 H (130-400) K/uL MPV 11.9 H (7.4-10.4) fL Neut # (Auto) 8.23 H (1.4-6.5) K/uL Lymph # (Auto) 0.59 L (1.2-3.4) K/uL Wake # (Auto) 0.93 H (0.11-0.59) K/uL Immature Gran # (Auto) 0.03 H (0.00-0.02) K/uL Sodium 118 L* (136-145) mmol/L Chloride 88 L (98-107) mmol/L Carbon Dioxide 20 L (21-32) mmol/L Glucose 204 H (70-99) mg/dl POC Glucose (70-99) mg/dl Hemoglobin A1c (4.5-5.6) % Osmolality 251 L (280-300) mOsm/kg Calcium (8.5-10.1) mg/dl Magnesium 1.4 L (1.8-2.4) mg/dl NT-Pro-B Natriuret Pep (0-1800) pg/ml Urine Osmolality (500-800) mOsm/kg 05/16/21 05/17/21 05/17/21 Range/Units 23:31 02:08 02:20 RBC (4.2-5.4) M/uL Hgb (12.0-16.0) g/dL Hct (37-47) % RDW Coeff of Alysa (11.5-14.5) % Plt Count (130-400) K/uL MPV (7.4-10.4) fL Neut # (Auto) (1.4-6.5) K/uL Lymph # (Auto) (1.2-3.4) K/uL Wake # (Auto) (0.11-0.59) K/uL Immature Gran # (Auto) (0.00-0.02) K/uL Sodium 118 L* (136-145) mmol/L Chloride 87 L (98-107) mmol/L Carbon Dioxide (21-32) mmol/L Glucose 247 H (70-99) mg/dl POC Glucose 219 H (70-99) mg/dl Hemoglobin A1c (4.5-5.6) % Osmolality (280-300) mOsm/kg Calcium (8.5-10.1) mg/dl Magnesium (1.8-2.4) mg/dl NT-Pro-B Natriuret Pep (0-1800) pg/ml Urine Osmolality 344 L (500-800) mOsm/kg 05/17/21 05/17/21 05/17/21 Range/Units 04:16 04:16 04:16 RBC 3.09 L (4.2-5.4) M/uL Hgb 8.7 L (12.0-16.0) g/dL Hct 25.9 L (37-47) % RDW Coeff of Alysa 14.6 H (11.5-14.5) % Plt Count (130-400) K/uL MPV 11.0 H (7.4-10.4) fL Neut # (Auto) (1.4-6.5) K/uL Lymph # (Auto) (1.2-3.4) K/uL Wake # (Auto) (0.11-0.59) K/uL Immature Gran # (Auto) (0.00-0.02) K/uL Sodium 117 L* (136-145) mmol/L Chloride 89 L (98-107) mmol/L Carbon Dioxide (21-32) mmol/L Glucose 161 H (70-99) mg/dl POC Glucose (70-99) mg/dl Hemoglobin A1c 7.0 H (4.5-5.6) % Osmolality (280-300) mOsm/kg Calcium 8.4 L (8.5-10.1) mg/dl Magnesium 1.7 L (1.8-2.4) mg/dl NT-Pro-B Natriuret Pep (0-1800) pg/ml Urine Osmolality (500-800) mOsm/kg 05/17/21 05/17/21 05/17/21 Range/Units 04:16 07:56 08:44 RBC (4.2-5.4) M/uL Hgb (12.0-16.0) g/dL Hct (37-47) % RDW Coeff of Alysa (11.5-14.5) % Plt Count (130-400) K/uL MPV (7.4-10.4) fL Neut # (Auto) (1.4-6.5) K/uL Lymph # (Auto) (1.2-3.4) K/uL Wake # (Auto) (0.11-0.59) K/uL Immature Gran # (Auto) (0.00-0.02) K/uL Sodium (136-145) mmol/L Chloride (98-107) mmol/L Carbon Dioxide (21-32) mmol/L Glucose (70-99) mg/dl POC Glucose 63 L* 114 H (70-99) mg/dl Hemoglobin A1c (4.5-5.6) % Osmolality (280-300) mOsm/kg Calcium (8.5-10.1) mg/dl Magnesium (1.8-2.4) mg/dl NT-Pro-B Natriuret Pep 2043 H (0-1800) pg/ml Urine Osmolality (500-800) mOsm/kg
[2021-05-17] MEDS: PANTOprazole 40 MG TAB PO SCH (10:56)
[2021-05-17] MEDS: lisinopril 40 MG TAB PO SCH (10:57)
[2021-05-17] MEDS: ATORVASTATIN 40 MG TAB PO SCH (10:57)
[2021-05-17] MEDS ORDERED: FUROSEMIDE INJ 20 MG/2 ML VIAL IV ONE (17:36)
--- NOTE | 2021-05-17 17:39 | Nephrology Consultation ---
Date of Consultation May 17, 2021 Assessment & Plan (1) Hyponatremia: * Moderate hypoosmolar hyponatremia, neurologically intact * Clinically euthyroid, no evidence of liver disease or nephrotic syndrome * Physical exam is challenging (dry MM, poor skin turgor involving arms, but abdominal distention and 3+ bilateral LE pitting edema) * PE is suggestive of R heart failure. Elevated BNP, Uosm and CMG on x-ray support this diagnosis * Will order TTE * Start NaCl 2g po BID and Furosemide 20 mg IV daily * Monitor PRP, Uosm History of Present Illness Reason for Consultation: Hyponatremia Attending Physician: Sandra Carson MD History of Present Illness Ms. Gould is a 80 year old white female who is seen at the request of Dr. Carson for evaluation of hyponatremia. Medical records in the EMR were reviewed today and are summarized as follows: Ms. Gould has preserved kidney function. Her medical history is significant for recent bifemoral arterial bypass and pneumonia. Her last hospitalization was complicated by mild hyponatremia. Ms. Gould reports that since her arterial bypass her legs have been swollen. She was seen by her PCP and given a diuretic but does not recall the name or dose. Ms. Gould recently had blood work completed. Serum sodium was 118 mmol/L. She was then referred to the EMD for evaluation. CXR reveals mild pulmonary congestion, small bilateral effusions and marked cardiomegally. BNP was elevated at 2700. Patient was also noted to have LE cellulitis and was started on empiric antibiotic therapy. Allergies Allergy/AdvReac Type Severity Reaction Status Date / Time fenofibrate AdvReac Intermediate INCREASED Verified 05/16/21 19:06 URINATION metoprolol AdvReac Intermediate VOMIT,DIARR Verified 05/16/21 19:06 HEA verapamil AdvReac Intermediate INCREASED Verified 05/16/21 19:06 URINATION valsartan AdvReac Mild Weakness Verified 05/16/21 19:06 Home Medications Medication Instructions Recorded Confirmed Type aspirin 81 mg tablet,delayed 81 mg PO HS 03/04/20 05/16/21 History release carvedilol 25 mg tablet 25 mg PO BID 03/04/20 05/16/21 History clonidine HCl 0.1 mg tablet 0.1 mg PO HS 03/04/20 05/16/21 History metformin 500 mg tablet,extended 1,000 mg PO BIDM 03/04/20 05/16/21 History release 24 hr coenzyme Q10 100 mg capsule 100 mg PO QAM 12/01/20 05/16/21 History (CoQ-10) fish, borage, flaxseed oils-omega 1 cap PO QDD 12/01/20 05/16/21 History 3,6,9 comb no.1 1,200 mg capsule ([place] 3-6-9) lisinopril 40 mg tablet (Zestril) 40 mg PO QAM 12/01/20 05/16/21 History potassium chloride 10 mEq 10 meq PO DAILY PRN 12/01/20 05/16/21 History tablet,extended release atorvastatin 40 mg tablet 40 mg PO QAM 02/26/21 05/16/21 History multivitamin 1 tab PO QAM 02/26/21 05/16/21 History spironolactone 25 mg tablet 12.5 mg PO QAM 02/26/21 05/16/21 History brvjsszar-GPK-EL-acetaminophen 7.5 30 ml PO DIRECTED PRN 04/21/21 05/16/21 History mg-60 [id number]/30mL oral liqd amiodarone 200 mg tablet 200 mg PO BIDM #60 tab 05/02/21 05/16/21 Rx amlodipine 10 mg tablet 10 mg PO QPM #30 tab 05/02/21 05/16/21 Rx apixaban 5 mg tablet 5 mg PO BID #60 tab 05/02/21 05/16/21 Rx ferrous sulfate 325 mg (65 mg 325 mg PO BID #60 tab 05/02/21 05/16/21 Rx iron) tablet glimepiride 4 mg tablet 4 mg PO BID #60 tab 05/02/21 05/16/21 Rx pantoprazole 40 mg tablet,delayed 40 mg PO DAILY #30 tab 05/02/21 05/16/21 Rx release hydralazine 25 mg tablet 25 mg PO Q6HWA 30 Days #120 tab 05/03/21 05/16/21 Rx cephalexin 500 mg capsule 500 mg PO QID 05/16/21 05/16/21 History Patient History Medical History CAD (coronary artery disease) CVA (cerebral vascular accident) (~2019) no deficits Hyperlipemia Hypertension Myocardial infarct, old follows with Dr. Mcpherson PAD (peripheral artery disease) Pneumonia hx S/P angiogram of extremity (02/02/21) Type 2 diabetes mellitus with diabetic neuropathy, unspecified NIDDM Surgical History H/O removal of cyst right abdominal area History of bunionectomy of right great toe History of cardiac cath (~2018) History of heart artery stent (~2019) x1. at [facility]. Status post ORIF of fracture of ankle Family History Other No family history of adverse response to anesthesia Social History Smoking Status: Never smoker Tobacco Type: Cigarettes Number of Years Since Quit: 40; Second Hand Exposure: No; Hx Alcohol Use: No Hx Substance Use: No Preferred Language: Upper Sorbian Communication Ability: Effective Anthropology Department Chair Required: No Beliefs That Will Affect Care: None marital status: / Current Living Situation: Alone Current Living Situation Comment: [employer] style home current occupational status: retired How many Children do You have: 1 Feels Safe at Home: Yes Safety Concerns: Feels Safe At This Time Assistive Devices: None Review of Systems Constitutional: + weakness; no fever Eyes: no worsening vision and no problem reported Ear, Nose, Mouth, Throat: no problem reported Respiratory: no cough and no dyspnea Cardiovascular: + edema; no chest pain Gastrointestinal: no abdominal pain, no nausea, no vomiting and no diarrhea/loose stools Genitourinary: no dysuria and no hematuria Musculoskeletal: no back pain Integumentary: no rash Neurologic: no falls, no dizziness and no confusion Physical Exam Constitutional: + frail appearing; not in distress Eyes: PERRL, conjunctivae normal, anicteric sclerae ENMT: external ear and nose normal, oropharynx normal Neck: trachea midline, no thyromegaly Respiratory: normal respiratory effort, lungs clear to auscultation Cardiovascular: Rate/Rhythm: regular rate and regular rhythm Extremities: + edema (3+ pretibial pitting edema) Gastrointestinal (Abdomen): Inspection/Auscultation: + abdomen distended and + hypoactive bowel sounds Percussion/Palpation: abdomen nontender Neurologic: awake; not confused Results & Data ([place]) Vital Signs (Past 12 Hours) Vital Signs Temp Pulse Resp BP BP Pulse Ox 05/17/21 15:00 50 L 20 147/67 H 96 05/17/21 11:24 36.5 C 45 L 18 147/67 H 94 05/17/21 08:24 41 L 20 141/64 H 93 05/17/21 06:18 44 L 18 142/64 H 94 Laboratory Results Laboratory Tests 04/30/21 05/16/21 05/16/21 04:33 17:10 17:10 WBC Hgb 10.0 L Hct Plt Count Sodium 137 Potassium Chloride Carbon Dioxide BUN Creatinine Glucose Osmolality 251 L NT-Pro-B Natriuret Pep Urine Osmolality 05/17/21 05/17/21 05/17/21 02:20 04:16 04:16 WBC 8.62 Hgb 8.7 L Hct 25.9 L Plt Count 367 Sodium 117 L* Potassium 4.6 Chloride 89 L Carbon Dioxide 23 BUN 16 Creatinine 0.81 Glucose 161 H Osmolality NT-Pro-B Natriuret Pep Urine Osmolality 344 L 05/17/21 04:16 WBC Hgb Hct Plt Count Sodium Potassium Chloride Carbon Dioxide BUN Creatinine Glucose Osmolality NT-Pro-B Natriuret Pep 2043 H Urine Osmolality PG Care Time/CCT Total # of Minutes Spent Total Time Spent with Patient: Total time spent is greater than 50% in coordination of care (as documented) at patient's floor/unit and/or counseling patient: Coding Level of Care Code 13551 Inpt Consult Level 5 Diagnoses Hyponatremia E87.1
[2021-05-17] MEDS ORDERED: hydrALAZINE HCL 20 MG/ML VIAL IV ONE (18:19)
[2021-05-17 19:32] LABS: BUN Creatinine Ratio 21.2 (10-20); Calcium 9.2 mg/dl (8.5-10.1); Creatinine Clr Calc Pharmacy 55.4 ml/min; Est GFR (Non-African American) 63.8 ml/min; Potassium 4.8 mmol/L (3.5-5.1)
[2021-05-17] MEDS: SODIUM CHLORIDE 1 GM TABLET PO SCH ×2 (20:54→22:34)
[2021-05-17] MEDS: carvediloL 12.5 MG TAB PO SCH (20:55)
[2021-05-18 00:45] LABS: BUN Creatinine Ratio 21.3 (10-20); Calcium 8.5 mg/dl (8.5-10.1); Creatinine Clr Calc Pharmacy 57.4 ml/min; Est GFR (African American) 77.2 ml/min; Est GFR (Non-African American) 66.6 ml/min; Potassium 4.6 mmol/L (3.5-5.1)
[2021-05-18 03:21] LABS: BUN Creatinine Ratio 20.4 (10-20); Calcium 8.4 mg/dl (8.5-10.1); Creatinine Clr Calc Pharmacy 58.8 ml/min; Est GFR (African American) 79.4 ml/min; Est GFR (Non-African American) 68.5 ml/min; Potassium 4.6 mmol/L (3.5-5.1)
[2021-05-18] MEDS: hydrALAZINE HCL 25 MG TAB PO SCH ×3 (05:54→17:33)
[2021-05-18] MEDS: cephALEXin 500 MG CAP PO SCH ×4 (08:13→21:17)
[2021-05-18] MEDS: carvediloL 12.5 MG TAB PO SCH ×2 (08:13→21:19)
[2021-05-18] MEDS: AMIODARONE 200 MG TAB PO SCH (08:14)
[2021-05-18] MEDS: APIXABAN 5 MG TABLET PO SCH ×2 (08:14→21:18)
[2021-05-18] MEDS: ATORVASTATIN 40 MG TAB PO SCH (08:15)
[2021-05-18] MEDS: lisinopril 40 MG TAB PO SCH (08:15)
[2021-05-18] MEDS: PANTOprazole 40 MG TAB PO SCH (08:16)
[2021-05-18] MEDS: INSULIN GLARGINE SOLOSTAR 100 UNITS/ML 3 ML PEN SC SCH ×2 (08:23→21:19)
[2021-05-18] MEDS: INSULIN ASPART PER UNIT SC SCH ×4 (08:23→21:19)
[2021-05-18 08:35] LABS: BUN Creatinine Ratio 18.9 (10-20); Calcium 8.8 mg/dl (8.5-10.1); Creatinine Clr Calc Pharmacy 59.1 ml/min; Est GFR (African American) 81.8 ml/min; Est GFR (Non-African American) 70.6 ml/min; Potassium 4.4 mmol/L (3.5-5.1)
--- NOTE | 2021-05-18 08:37 | Cardiology Consultation ---
Date of Consultation May 18, 2021 Assessment & Plan (1) Hyponatremia: IMPRESSIONS: 1. Accelerated hypertension. 2. Non-ST elevation myocardial infarction in October 2018 with a drug-eluting stent placed to the ostial RCA. 3. Residual mid LAD disease in the range of 20-30%; mid circumflex disease in the range of 60-70%; mid to distal RCA disease in the range of 40-50%. 4. Hyperlipidemia. 5. Moderate aortic stenosis. 6. Preserved biventricular size and function 7. Diabetes mellitus type 2. 8. Negative CT scan for renal artery stenosis 11/2020. 9. 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 10. History of a CVA in 2018. 11. Hyponatremia worsened by hydrochlorothiazide and potentially spironolactone - renin/aldosterone ratio 20.6 so spironolactone maintained 12. Normal carotid ultrasound and no evidence of subclavian stenosis, January 09, 2021. 13. AFib Ms. Gould appears to be in diastolic heart failure. Her BNP was 2,043 which is similar to her previous hospitalization. She does have pitting edema in her legs. Nephrology has placed her on sodium tablets for her hyponatremia and gave her furosemide x1. I will continue to diurese her with bid 20 mg IV furosemide. Her kidney function is stable. Ms. Gould's heart rate was quite bradycardic in the 40s on admission and this may have exacerbated her failure. I decreased her Coreg by half and cut her amiodarone in half as well and her heart rate is improved today in the 50s. Her blood pressure has been very difficult to control. She was placed on spironolactone as her renin/aldosterone ratio was suspicious for hyperaldosteronism. She has not had spontaneous hypokalemia in the past. She should continue Coreg, hydralazine, lisinopril, clonidine She is on amiodarone and Coreg for rate control in the setting of Afib. She is appropriately on apixaban for stroke prevention. She had a repeat echo which showed moderate to severe mitral regurgitation which is worse than previous echo. She also has grade III diastolic dysfunction which is also more severe than previous evaluations. She had a normal iron and ferritin in March. I will put in for SPEP and UPEP. History of Present Illness Attending Physician: Sandra Carson MD History of Present Illness Ms. Gould presented to the ED 05/16 after lab work ordered by her pcp showed hyponatremia. She was feeling week and fatigued which has improved today. Today she is feeling somewhat better. She denies sob or chest pain or palpitations. She does have lower extremity edema. Allergies Allergy/AdvReac Type Severity Reaction Status Date / Time fenofibrate AdvReac Intermediate INCREASED Verified 05/16/21 19:06 URINATION metoprolol AdvReac Intermediate VOMIT,DIARR Verified 05/16/21 19:06 HEA verapamil AdvReac Intermediate INCREASED Verified 05/16/21 19:06 URINATION valsartan AdvReac Mild Weakness Verified 05/16/21 19:06 Home Medications Medication Instructions Recorded Confirmed Type aspirin 81 mg tablet,delayed 81 mg PO HS 03/04/20 05/16/21 History release carvedilol 25 mg tablet 25 mg PO BID 03/04/20 05/16/21 History clonidine HCl 0.1 mg tablet 0.1 mg PO HS 03/04/20 05/16/21 History metformin 500 mg tablet,extended 1,000 mg PO BIDM 03/04/20 05/16/21 History release 24 hr coenzyme Q10 100 mg capsule 100 mg PO QAM 12/01/20 05/16/21 History (CoQ-10) fish, borage, flaxseed oils-omega 1 cap PO QDD 12/01/20 05/16/21 History 3,6,9 comb no.1 1,200 mg capsule ([place] 3-6-9) lisinopril 40 mg tablet (Zestril) 40 mg PO QAM 12/01/20 05/16/21 History potassium chloride 10 mEq 10 meq PO DAILY PRN 12/01/20 05/16/21 History tablet,extended release atorvastatin 40 mg tablet 40 mg PO QAM 02/26/21 05/16/21 History multivitamin 1 tab PO QAM 02/26/21 05/16/21 History spironolactone 25 mg tablet 12.5 mg PO QAM 02/26/21 05/16/21 History bgpbuahyo-SZI-KP-acetaminophen 7.5 30 ml PO DIRECTED PRN 04/21/21 05/16/21 History mg-60 [id number]/30mL oral liqd amiodarone 200 mg tablet 200 mg PO BIDM #60 tab 05/02/21 05/16/21 Rx amlodipine 10 mg tablet 10 mg PO QPM #30 tab 05/02/21 05/16/21 Rx apixaban 5 mg tablet 5 mg PO BID #60 tab 05/02/21 05/16/21 Rx ferrous sulfate 325 mg (65 mg 325 mg PO BID #60 tab 05/02/21 05/16/21 Rx iron) tablet glimepiride 4 mg tablet 4 mg PO BID #60 tab 05/02/21 05/16/21 Rx pantoprazole 40 mg tablet,delayed 40 mg PO DAILY #30 tab 05/02/21 05/16/21 Rx release hydralazine 25 mg tablet 25 mg PO Q6HWA 30 Days #120 tab 05/03/21 05/16/21 Rx cephalexin 500 mg capsule 500 mg PO QID 05/16/21 05/16/21 History Patient History Medical History CAD (coronary artery disease) CVA (cerebral vascular accident) (~2018) no deficits Hyperlipemia Hypertension Myocardial infarct, old follows with Dr. Mcpherson PAD (peripheral artery disease) Pneumonia hx S/P angiogram of extremity (02/02/21) Type 2 diabetes mellitus with diabetic neuropathy, unspecified NIDDM Surgical History H/O removal of cyst right abdominal area History of bunionectomy of right great toe History of cardiac cath (~2018) History of heart artery stent (~2019) x1. at [facility]. Status post ORIF of fracture of ankle Family History Other No family history of adverse response to anesthesia Social History Smoking Status: Never smoker Tobacco Type: Cigarettes Number of Years Since Quit: 40; Second Hand Exposure: No; Hx Alcohol Use: No Hx Substance Use: No Preferred Language: [place]an Communication Ability: Effective Rag Washer Required: No Beliefs That Will Affect Care: None marital status: / Current Living Situation: Alone Current Living Situation Comment: [employer] style home current occupational status: retired How many Children do You have: 1 Feels Safe at Home: Yes Assistive Devices: Oxygen - Continuous and Walker Review of Systems Review of Systems: All systems reviewed & are unremarkable except as noted in HPI & below Physical Exam Constitutional: WD/WN, vitals as above Respiratory: normal respiratory effort, lungs clear to auscultation Cardiovascular: Rate/Rhythm: regular rate and regular rhythm Extremities: + edema (legs ) Gastrointestinal (Abdomen): Inspection/Auscultation: + abdomen distended Percussion/Palpation: abdomen soft; abdomen nontender Neurologic: moves all extremities and awake Psychiatric: A+Ox3, euthymic affect Results & Data ([facility]) Vital Signs (Past 12 Hours) Vital Signs Temp Pulse Pulse Pulse Resp BP BP 05/18/21 07:30 36.5 C 60 18 175/62 H 05/18/21 04:00 36.8 C 57 L 17 163/64 H 05/17/21 23:59 60 05/17/21 23:51 36.1 C L 59 L 18 189/66 H Pulse Ox 05/18/21 07:30 97 05/18/21 04:00 91 05/17/21 23:59 05/17/21 23:51 95
[2021-05-18 09:07] LABS: Hematocrit (blood only) 27.6 % (37-47); Hemoglobin 9.5 g/dL (12.0-16.0); Mean Corpuscular Hemoglobin 28.2 pg (25-34); Mean Corpuscular Hgb Conc 34.4 g/dL (32-36); Mean Corpuscular Volume 81.9 fL (80-100); Mean Platelet Volume 11.7 fL (7.4-10.4); Platelet Count 437 K/uL (130-400); RDW Coefficient of Variation 14.7 % (11.5-14.5); RDW Standard Deviation 44.1 fL (36.4-46.3); Red Blood Count 3.37 M/uL (4.2-5.4); White Blood Count 7.81 K/uL (4.8-10.8)
--- NOTE | 2021-05-18 09:18 | XCELERA ---
[id number] \\[email or web address]\[id number]
[2021-05-18] MEDS ORDERED: FUROSEMIDE INJ 20 MG/2 ML VIAL IV ONE (09:28)
--- NOTE | 2021-05-18 09:28 | Nephrology Progress Note ---
Date of Service May 18, 2021 Assessment & Plan (1) Hyponatremia: Plan: * Moderate hypoosmolar hyponatremia, neurologically intact * Clinically euthyroid, no evidence of liver disease or nephrotic syndrome * Physical exam is challenging (dry MM, poor skin turgor involving arms, but abdominal distention and 3+ bilateral LE pitting edema) * PE is suggestive of R heart failure. Elevated BNP, Uosm and CMG on x-ray support this diagnosis * 05/17/21 TTE: mod LVH, mod-severe MR, RVSP 40 - 50 mmHg * Continue NaCl 2g po BID and Furosemide 20 mg IV daily today * Monitor PRP, Uosm Admission and Anticipated Discharge Date Admission Date: May 16, 2021 Subjective Ms. Gould was evaluated in her hospital room this morning. She reports brisk UO in response to diuretic therapy and is tolerating oral NaCl without GI upset Review of Systems Constitutional: + weakness; no fever Eyes: no worsening vision and no problem reported Ear, Nose, Mouth, Throat: no problem reported Respiratory: no cough and no dyspnea Cardiovascular: + edema; no chest pain Gastrointestinal: no abdominal pain, no nausea, no vomiting and no diarrhea/loose stools Genitourinary: no dysuria and no hematuria Musculoskeletal: no back pain Integumentary: no rash Neurologic: no falls, no dizziness and no confusion Physical Exam Constitutional: + frail appearing; not in distress Eyes: PERRL, conjunctivae normal, anicteric sclerae ENMT: external ear and nose normal, oropharynx normal Neck: trachea midline, no thyromegaly Respiratory: normal respiratory effort, lungs clear to auscultation Cardiovascular: Rate/Rhythm: regular rate and regular rhythm Extremities: + edema (3+ pretibial pitting edema) Gastrointestinal (Abdomen): Inspection/Auscultation: + abdomen distended and + hypoactive bowel sounds Percussion/Palpation: abdomen nontender Neurologic: awake; not confused Results & Data ([facility]) Vital Signs (Past 12 Hours) Vital Signs Temp Pulse Pulse Pulse Resp BP BP 05/18/21 07:30 36.5 C 60 18 175/62 H 05/18/21 04:00 36.8 C 57 L 17 163/64 H 05/17/21 23:59 60 05/17/21 23:51 36.1 C L 59 L 18 189/66 H Pulse Ox 05/18/21 07:30 97 12/17/21 04:00 91 05/17/21 23:59 05/17/21 23:51 95 Laboratory Results Laboratory Tests 05/18/21 07:13 Sodium 123 L Potassium 4.4 Chloride 90 L Carbon Dioxide 24 BUN 15 Creatinine 0.80 PG Care Time/CCT Total # of Minutes Spent Total Time Spent with Patient: Total time spent is greater than 50% in coordination of care (as documented) at patient's floor/unit and/or counseling patient: Coding Level of Care Code 17204 Subseq Hosp Care Lvl 3 Diagnoses Hyponatremia E87.1
[2021-05-18] MEDS: SODIUM CHLORIDE 1 GM TABLET PO SCH ×2 (09:38→21:16)
[2021-05-18 10:46] LABS: BUN Creatinine Ratio 17.5 (10-20); Calcium 8.5 mg/dl (8.5-10.1); Creatinine Clr Calc Pharmacy 57.7 ml/min; Est GFR (African American) 79.4 ml/min; Est GFR (Non-African American) 68.5 ml/min; Potassium 4.5 mmol/L (3.5-5.1)
--- NOTE | 2021-05-18 11:14 | Medical Student Progress Note ---
Date of Service May 18, 2021 Assessment & Plan (1) Hyponatremia: Plan: 80 F with PMH of paroxysmal atrial fibrillation, DM2 with neuropathy, CAD with prior NSTEMI earlier this month, s/p cath and stent 2018, PAD fem-fem bypass in April, resistant HTN, anemia, hyperlipidemia, current right leg cellulitis managed outpatient with Keflex, admitted for severe hyponatremia. Hypervolemic Hyponatremia: likely right heart failure - CXR 05/17: Small bilateral pleural effusions (present previous CXR). Cardiomegaly. No airspace opacities are seen. -TTE 05/18: Moderate concentric left ventricular hypertrophy, Grade III diastolic dysfunction consistent with increased LA pressure. LA moderately dilated. RV systolic pressure elevated at 40-50mmHg. - Nephrology consulted - Continue Lasix 20 mg and NaCl 2g po BID - fluid restriction <2L/day - Q4h BMP - Continue to monitor Uosm - Salt tabs Bradycardia - EKG: Sinus bradycardia with 1st degree AV block - Given patient's history of paroxysmal AFib with RVR, on multiple HTN medications, concern for sick sinus syndrome - Cardiology consulted Constipation - Begin Miralax 17g BID and Senna PRN Anemia - Chronic - Hgb increased from 8.7 to 9.5 - Previous studies show baseline around 10 - Continue to monitor CBC - no signs of acute bleeding, hemodynamically stable Hypomagnesia - resolved - Increased from 1.4 to 1.7 with 2 g Mg IV Paroxysmal Atrial Fibrillation with RVR -Continue home regimen -Anticoagulation: Eliquis 5 mg BID -Amiodarone 200 mg BID - dose decreased to once daily by cardiology -holding Carvedilol 25 mg BID in setting of bradycardia Resistant Hypertension -Hypertensive this morning, continue to monitor -Continue amlodipine, clonidine, hydralazine, lisinopril, spironolactone home regimen -hold carvedilol 25 mg in setting of bradycardia -Cardiology consulted Nausea -Continue Zofran Q6h for nausea -Controlled Cellulitis of right foot - Started on Keflex 500mg Q4 as outpatient - Continue regimen Type 2 DM -Oral home meds held (glimepiride 4 mg BID, metformin 1000 BID) - Started on 7 units of Lantus BID with sliding scale - A1c 7 CAD/PAD/HLD - Prior NSTEMI (previous admission 05/2021) - S/P cardiac cath and stent 2018 -continue atorvastatin and aspirin -fem fem artery bypass 04/04/2021 - continue atorvastatin and aspirin Dispo: Med/Surg with telemetry, home pending PT/OT consult FEN/GI: DM 2 diet, fluid restriction <2L/day DVT prophylaxis: Eliquis Code: Full code Admission and Anticipated Discharge Date Admission Date: May 16, 2021 Supervising Attestation I have seen and evaluated the patient. I have discussed the case with Roma Hauser and agree with her plan as documented. Bobby Hernandez MD PGY-3 Attending Physicain Medical Student Supervision Note: I independently interviewed and examined the patient and verified the yi history and physical, reviewed labs and image studies, discussed the case with the medical student Roma Hauser and the Resident physician Dr Bobby Hernandez and agree with the findings and care plan. HypoNa - Na level improving with salt tabs. lasix to remove free water fluid restriction Diastolic dysfunction with Elevated right sided pressures - Follow while adjusting salt and water. Bradycardia - amiodarone dose decreased. follow Subjective Ms. Gould feels much improved today. Ate breakfast and feeling better. Weakness and shortness of breath improving but remain present. Ambulating well to bathroom and sitting up in bed. Notes lower leg swelling bilaterally. Catheter draining clear urine. Concern of constipation - unable to move her bowels. No chest pain or tightness at rest or with exertion. No nausea. No abdominal pain or increased pressure. Review of Systems Review of Systems: All systems reviewed & are unremarkable except as noted in Subjective Physical Exam Constitutional: WD/WN, vitals as above No acute distress. Sitting up comfortably in bed. Respiratory: normal respiratory effort, lungs clear to auscultation Cardiovascular: Rate/Rhythm: regular rate and regular rhythm Heart Sounds: normal S1 and normal S2 Extremities: + edema (Pitting, 3+ LE bilaterally ) Gastrointestinal (Abdomen): Inspection/Auscultation: + abdomen distended and normal bowel sounds Nontender. Psychiatric: A+Ox3, euthymic affect Results & Data ([facility]) Vital Signs (Past 12 Hours) Vital Signs Temp Pulse Pulse Pulse Resp BP BP 05/18/21 09:51 05/18/21 07:30 36.5 C 60 18 175/62 H 05/18/21 04:00 36.8 C 57 L 17 163/64 H 05/17/21 23:59 60 05/17/21 23:51 36.1 C L 59 L 18 189/66 H Pulse Ox 05/18/21 09:51 96 05/18/21 07:30 97 05/18/21 04:00 91 05/17/21 23:59 05/17/21 23:51 95
[2021-05-18] MEDS ORDERED: FUROSEMIDE INJ 20 MG/2 ML VIAL IV SCH (12:45)
[2021-05-18] MEDS ORDERED: SENNA 8.6 MG TAB PO PRN (14:30)
[2021-05-18 14:50] LABS: BUN Creatinine Ratio 18.2 (10-20); Calcium 8.3 mg/dl (8.5-10.1); Creatinine Clr Calc Pharmacy 49.8 ml/min; Est GFR (African American) 66.5 ml/min; Est GFR (Non-African American) 57.4 ml/min; Potassium 4.5 mmol/L (3.5-5.1)
[2021-05-18] MEDS: FUROSEMIDE INJ 20 MG/2 ML VIAL IV SCH (21:16)
[2021-05-18] MEDS: cloNIDine HCL 0.1 MG TAB PO SCH (21:16)
[2021-05-18] MEDS: amLODIPine BESYLATE 5 MG TAB PO SCH (21:17)
[2021-05-18] MEDS: POLYETHYLENE (MIRALAX) 17 GM PACK PO SCH (21:20)
--- NOTE | 2021-05-18 21:20 | Electrocardiogram Report ---
Test Reason : Blood Pressure : / mmHG Vent. Rate : 051 BPM Atrial Rate : 051 BPM P-R Int : 208 ms QRS Dur : 096 ms QT Int : 432 ms P-R-T Axes : 082 015 050 degrees QTc Int : 398 ms Sinus bradycardia Septal infarct , age undetermined Abnormal ECG When compared with ECG of 29-APR-2021 09:41, T wave inversion no longer evident in Lateral leads Confirmed by Suresh Moya ([id number]) on 05/18/2021 9:19:21 PM Referred By: Mal Torres Confirmed By:Suresh Moya
--- NOTE | 2021-05-18 21:49 | Electrocardiogram Report ---
Test Reason : Blood Pressure : / mmHG Vent. Rate : 045 BPM Atrial Rate : 045 BPM P-R Int : 242 ms QRS Dur : 092 ms QT Int : 480 ms P-R-T Axes : 102 009 001 degrees QTc Int : 415 ms Poor data quality, interpretation may be adversely affected Sinus bradycardia with 1st degree A-V block Otherwise normal ECG When compared with ECG of 16-MAY-2021 17:06, (unconfirmed) [place] interval has increased No significant change Confirmed by Suresh Moya ([id number]) on 05/18/2021 9:49:15 PM Referred By: Mal Torres Confirmed By:Suresh Moya
[2021-05-19] MEDS: hydrALAZINE HCL 25 MG TAB PO SCH ×5 (00:33→23:37)
[2021-05-19 07:45] LABS: Hematocrit (blood only) 26.3 % (37-47); Hemoglobin 8.9 g/dL (12.0-16.0); Mean Corpuscular Hemoglobin 28.4 pg (25-34); Mean Corpuscular Hgb Conc 33.8 g/dL (32-36); Mean Platelet Volume 10.8 fL (7.4-10.4); Platelet Count 407 K/uL (130-400); RDW Coefficient of Variation 14.8 % (11.5-14.5); Red Blood Count 3.13 M/uL (4.2-5.4); White Blood Count 5.67 K/uL (4.8-10.8)
[2021-05-19 08:13] LABS: BUN Creatinine Ratio 21.3 (10-20); Calcium 8.5 mg/dl (8.5-10.1); Est GFR (African American) 76.1 ml/min; Est GFR (Non-African American) 65.6 ml/min; Magnesium 1.5 mg/dl (1.8-2.4); Potassium 4.6 mmol/L (3.5-5.1)
[2021-05-19] MEDS: AMIODARONE 200 MG TAB PO SCH (08:29)
[2021-05-19] MEDS: ATORVASTATIN 40 MG TAB PO SCH (08:30)
[2021-05-19] MEDS: lisinopril 40 MG TAB PO SCH (08:30)
[2021-05-19] MEDS: PANTOprazole 40 MG TAB PO SCH (08:30)
[2021-05-19] MEDS: cephALEXin 500 MG CAP PO SCH ×4 (08:31→20:47)
[2021-05-19] MEDS: INSULIN GLARGINE SOLOSTAR 100 UNITS/ML 3 ML PEN SC SCH ×2 (08:31→20:45)
[2021-05-19] MEDS: carvediloL 12.5 MG TAB PO SCH ×2 (08:32→20:47)
[2021-05-19] MEDS: FUROSEMIDE INJ 20 MG/2 ML VIAL IV SCH ×2 (08:32→20:50)
[2021-05-19] MEDS: POLYETHYLENE (MIRALAX) 17 GM PACK PO SCH ×2 (08:34→20:44)
[2021-05-19] MEDS: INSULIN ASPART PER UNIT SC SCH ×4 (08:41→20:46)
--- NOTE | 2021-05-19 10:35 | Nephrology Progress Note ---
Date of Service May 19, 2021 Assessment & Plan (1) Hyponatremia: (2) Hypomagnesemia: Plan: 80 y o F admitted after outpatient lab showed hyponatremia, sodium was 117, urine osmolality III 50. she was thought to be diastolic CHF with BNP more than 2000, started on salt tablets 2 g twice a day and Lasix 20 mg daily. Sodium slowly improved to 126 this morning. Her blood pressure remains elevated. She was on spironolactone which has been on hold. -- decrease salt tablet to 1 gm bid, continue Lasix -- restarted on spironolactone at 50 mg daily, continue on other antihypertensive medications. -- Monitor serum sodium every 12 hours Will follow Admission and Anticipated Discharge Date Admission Date: May 16, 2021 Subjective Florance feels much improved today, just had breakfast. SOB improving rt LE edema improved. BP has been high. Review of Systems Review of Systems: Detail ROS was otherwise unremarkable. Physical Exam Constitutional: WD/WN, vitals as above no acute distress Eyes: + anicteric sclerae Respiratory: normal respiratory effort; no respiratory distress Auscultation: lungs clear to auscultation bilaterally Cardiovascular: Rate/Rhythm: regular rate and regular rhythm Heart Sounds: normal S1 and normal S2 Extremities: + edema ( Right lower extremity edema) Skin: normal turgor; no rashes Neurologic: no focal motor deficits and not confused Psychiatric: Orientation: alert and oriented x 3 Results & Data ([facility]) Vital Signs (Past 12 Hours) Vital Signs Temp Pulse Pulse Resp BP BP Pulse Ox 05/19/21 07:58 36.4 C L 53 L 18 187/69 H 90 05/19/21 04:15 36.4 C L 53 L 20 184/64 H 95 05/19/21 04:09 56 L 05/18/21 23:21 36.6 C 52 L 20 132/56 L 98 PG Care Time/CCT Total # of Minutes Spent Total Time Spent with Patient: Total time spent is greater than 50% in coordination of care (as documented) at patient's floor/unit and/or counseling patient: Coding Level of Care Code 16679 Subseq Hosp Care Lvl 3 Diagnoses Hyponatremia E87.1 Hypomagnesemia E83.42
--- NOTE | 2021-05-19 11:16 | Hospitalist Progress Note ---
Date of Service May 19, 2021 Assessment & Plan (1) Hyponatremia: Plan: 80 F with PMH of paroxysmal atrial fibrillation, DM2 with neuropathy, CAD with prior NSTEMI earlier this month, s/p cath and stent 2018, PAD fem-fem bypass in April, resistant HTN, anemia, hyperlipidemia, current right leg cellulitis managed outpatient with Keflex, admitted for severe hyponatremia. Acute on chronic diastolic CHF: CXR 05/17: Small bilateral pleural effusions (present previous CXR). Cardiomegaly. No airspace opacities are seen. TTE 05/18: Moderate concentric left ventricular hypertrophy, Grade III diastolic dysfunction consistent with increased LA pressure. LA moderately dilated. RV systolic pressure elevated at 40-50mmHg. Moderate MR -Diuresing well with drop of 4lb weight. -continue lasix at 20mgs IV bid. -daily weight, Is and Os Hypoosmolar Hyponatremia: - Sodium has improved from 117 on admission to 126 today. - Nephrology following - Will continue Lasix 20mg IV BID. Decrease NaCl from 2g po BID to 1g po BID on 05/19. Fluid restriction < 2L/day. Monitor BMP q12h. Weakness/Deconditioning - Likely secondary to hyponatremia, bradycardia, and paroxysmal atrial fibrillation - PT/OT evaluations ordered 05/19 Bradycardia, Paroxysmal Atrial Fibrillation with RVR (history of) - EKG: Sinus bradycardia with 1st degree AV block - Given patient's history of paroxysmal AFib with RVR, on multiple HTN medications, concern for sick sinus syndrome - Cardiology consulted: - Carvedilol was decreased from 25mg po BID to 12.5mg po BID. Since still bradycardic and not getting decreased - dose further reduced to 6.25mgs. - Amiodarone decreased from 200mg po BID to 200mg po daily. - Continue apixaban for stroke prevention due to hx of paroxysmal atrial fibrillation. HTN - Continue BP management with hydralazine, Coreg (with decrease as noted above), lisinopril, and clonidine and spironolactone. - consider sleep study Constipation - Begin Miralax 17g BID and Senna PRN Anemia, chronic - Previous studies show baseline around 10 - Continue to monitor CBC - No signs of acute bleeding, hemodynamically stable Hypomagnesia - Will continue to monitor magnesium qAM and replete as indicated. Nausea, controlled - Continue Zofran Q6h prn for nausea. Continue to monitor. Cellulitis of right foot - Started on Keflex 500mg Q4 as outpatient; continue regimen - Course to be completed 05/20 at 1700 Type 2 DM, A1c 7% - Oral home meds held (glimepiride 4 mg BID, metformin 1000 BID) - Started on 7 units of Lantus BID with sliding scale CAD/PAD/HLD - Prior NSTEMI (previous admission 05/2021) - S/P cardiac cath and stent 2018 - Fem-fem artery bypass 04/04/2021 - Continue atorvastatin and aspirin and B [place], ACEi Dispo: Med/Surg with telemetry, home pending PT/OT consult FEN/GI: DM 2 diet, fluid restriction <2L/day DVT prophylaxis: Eliquis Code: Full code Admission and Anticipated Discharge Date Admission Date: May 16, 2021 Supervising Physician Co-Signing Physician Notes Resident Physician Supervision Note: I independently interviewed and examined the patient and verified the yi history and physical, reviewed labs and image studies and agree with resident Dr. Gordon findings and care plan. Subjective No acute events overnight. Patient seen and evaluated at bedside this morning. Reports overall feeling better but with some persistent generalized weakness. Sleeping well. Eating well w/o abdominal pain, nausea, or vomiting. No CP or SOB. Review of Systems Review of Systems: See HPI Physical Exam Physical Exam: GENERAL: No acute distress. Well developed and well nourished. Sitting up in bed eating breakfast. Vital signs reviewed as above. EYES: EOMI. Anicteric sclerae. HENT: Moist mucous membranes. No pharyngea RESPIRATORY: Clear to auscultation bilaterally. No wheezing, rales, or rhonchi. CARDIOVASCULAR: Regular rate and rhythm. No murmurs. ABDOMEN: Soft, non-tender and non-distended. Normal bowel sounds. EXTREMITIES: + edema. SKIN: Warm, dry. NEUROLOGIC: A/O x3. No focal neurological deficits. PSYCHIATRIC: Cooperative. Appropriate mood and affect. Results & Data Results & Data ([facility]) Vital Signs (Past 12 Hours) Vital Signs Temp Pulse Pulse Resp BP BP Pulse Ox 05/19/21 07:58 36.4 C L 53 L 18 187/69 H 90 05/19/21 04:15 36.4 C L 53 L 20 184/64 H 95 05/19/21 04:09 56 L 05/18/21 23:21 36.6 C 52 L 20 132/56 L 98 Laboratory Results 05/19/21 05/19/21 05/19/21 Range/Units 08:10 07:18 07:18 WBC 5.67 (4.8-10.8) K/uL RBC 3.13 L (4.2-5.4) M/uL Hgb 8.9 L (12.0-16.0) g/dL Hct 26.3 L (37-47) % MCV 84.0 (80-100) fL MCH 28.4 (25-34) pg MCHC 33.8 (32-36) g/dL RDW Std Deviation 46.0 (36.4-46.3) fL RDW Coeff of Alysa 14.8 H (11.5-14.5) % Plt Count 407 H (130-400) K/uL MPV 10.8 H (7.4-10.4) fL Sodium 126 L (136-145) mmol/L Potassium 4.6 (3.5-5.1) mmol/L Chloride 94 L (98-107) mmol/L Carbon Dioxide 24 (21-32) mmol/L Anion Gap 8.0 (3-11) BUN 18 (7-18) mg/dl Creatinine 0.85 (0.6-1.2) mg/dl Est Cr Clr Drug Dosing 55.0 ml/min Est GFR ( Amer) 76.1 ml/min Est GFR (Non-Af Amer) 65.6 ml/min BUN/Creatinine Ratio 21.3 H (10-20) Glucose 126 H (70-99) mg/dl POC Glucose 128 H (70-99) mg/dl Calcium 8.5 (8.5-10.1) mg/dl Phosphorus 3.0 (2.5-4.9) mg/dl Magnesium 1.5 L (1.8-2.4) mg/dl Total Protein (PEP) Albumin (PEP) Uwilk-7-Vuqvopjzd Qicos-5-Xjyynizgr Kmgk-8-Orplisbs Xuhw-0-Mkjwrsbp Gamma Globulins Monoclonal Peak 3 Ser Monoclonl Protein Ser Monoclonal Prot 2 PEP Interpretation Urine Osmolality (500-800) mOsm/kg U Random Total Protein Ur Creatinine mg/dL Protein/Creatinin Ratio Urine Albumin (%) U Gubav-6-Jjfjyvnp (%) U Qisaa-1-Uhmolllf (%) U Beta Globulin (%) U Gamma Globulin (%) U Abnormal Prot Band 1 U Abnormal Prot Band 2 U Abnormal Prot Band 3 Urine PEP Interpret 05/19/21 05/18/21 05/18/21 Range/Units 07:18 21:13 17:27 WBC (4.8-10.8) K/uL RBC (4.2-5.4) M/uL Hgb (12.0-16.0) g/dL Hct (37-47) % MCV (80-100) fL MCH (25-34) pg MCHC (32-36) g/dL RDW Std Deviation (36.4-46.3) fL RDW Coeff of Alysa (11.5-14.5) % Plt Count (130-400) K/uL MPV (7.4-10.4) fL Sodium (136-145) mmol/L Potassium (3.5-5.1) mmol/L Chloride (98-107) mmol/L Carbon Dioxide (21-32) mmol/L Anion Gap (3-11) BUN (7-18) mg/dl Creatinine (0.6-1.2) mg/dl Est Cr Clr Drug Dosing ml/min Est GFR ( Amer) ml/min Est GFR (Non-Af Amer) ml/min BUN/Creatinine Ratio (10-20) Glucose (70-99) mg/dl POC Glucose 142 H 144 H (70-99) mg/dl Calcium (8.5-10.1) mg/dl Phosphorus (2.5-4.9) mg/dl Magnesium (1.8-2.4) mg/dl Total Protein (PEP) Pending Albumin (PEP) Pending Difap-8-Ogqpddcox Pending Phvdi-6-Fgpggohjk Pending Zsvi-9-Ptpdscyi Pending Tfjj-1-Eyedxwod Pending Gamma Globulins Pending Monoclonal Peak 3 Pending Ser Monoclonl Protein Pending Ser Monoclonal Prot 2 Pending PEP Interpretation Pending Urine Osmolality (500-800) mOsm/kg U Random Total Protein Ur Creatinine mg/dL Protein/Creatinin Ratio Urine Albumin (%) U Bnkka-8-Izkzktnn (%) U Kptaf-8-Viqwzpbe (%) U Beta Globulin (%) U Gamma Globulin (%) U Abnormal Prot Band 1 U Abnormal Prot Band 2 U Abnormal Prot Band 3 Urine PEP Interpret 05/18/21 05/18/21 05/18/21 Range/Units 14:20 11:48 10:11 WBC (4.8-10.8) K/uL RBC (4.2-5.4) M/uL Hgb (12.0-16.0) g/dL Hct (37-47) % MCV (80-100) fL MCH (25-34) pg MCHC (32-36) g/dL RDW Std Deviation (36.4-46.3) fL RDW Coeff of Alysa (11.5-14.5) % Plt Count (130-400) K/uL MPV (7.4-10.4) fL Sodium 123 L (136-145) mmol/L Potassium 4.5 (3.5-5.1) mmol/L Chloride 91 L (98-107) mmol/L Carbon Dioxide 23 (21-32) mmol/L Anion Gap 9.0 (3-11) BUN 17 (7-18) mg/dl Creatinine 0.95 (0.6-1.2) mg/dl Est Cr Clr Drug Dosing 49.8 ml/min Est GFR ( Amer) 66.5 ml/min Est GFR (Non-Af Amer) 57.4 ml/min BUN/Creatinine Ratio 18.2 (10-20) Glucose 125 H (70-99) mg/dl POC Glucose 123 H (70-99) mg/dl Calcium 8.3 L (8.5-10.1) mg/dl Phosphorus (2.5-4.9) mg/dl Magnesium (1.8-2.4) mg/dl Total Protein (PEP) Albumin (PEP) Bakzy-0-Lhqgwdiqh Untbo-0-Dulppnoxn Wwon-0-Dmuevowm Kqum-4-Xrqbyhzn Gamma Globulins Monoclonal Peak 3 Ser Monoclonl Protein Ser Monoclonal Prot 2 PEP Interpretation Urine Osmolality (500-800) mOsm/kg U Random Total Protein Pending Ur Creatinine mg/dL Pending Protein/Creatinin Ratio Pending Urine Albumin (%) Pending U Lcbcq-3-Rpdmonhz (%) Pending U Lwrym-9-Sbzvmfml (%) Pending U Beta Globulin (%) Pending U Gamma Globulin (%) Pending U Abnormal Prot Band 1 Pending U Abnormal Prot Band 2 Pending U Abnormal Prot Band 3 Pending Urine PEP Interpret Pending 05/18/21 Range/Units 10:09 WBC (4.8-10.8) K/uL RBC (4.2-5.4) M/uL Hgb (12.0-16.0) g/dL Hct (37-47) % MCV (80-100) fL MCH (25-34) pg MCHC (32-36) g/dL RDW Std Deviation (36.4-46.3) fL RDW Coeff of Alysa (11.5-14.5) % Plt Count (130-400) K/uL MPV (7.4-10.4) fL Sodium (136-145) mmol/L Potassium (3.5-5.1) mmol/L Chloride (98-107) mmol/L Carbon Dioxide (21-32) mmol/L Anion Gap (3-11) BUN (7-18) mg/dl Creatinine (0.6-1.2) mg/dl Est Cr Clr Drug Dosing ml/min Est GFR ( Amer) ml/min Est GFR (Non-Af Amer) ml/min BUN/Creatinine Ratio (10-20) Glucose (70-99) mg/dl POC Glucose (70-99) mg/dl Calcium (8.5-10.1) mg/dl Phosphorus (2.5-4.9) mg/dl Magnesium (1.8-2.4) mg/dl Total Protein (PEP) Albumin (PEP) Hlfay-9-Rujswohpg Hnlqs-5-Rvbhlhtky Mqkn-1-Qbaiwwmx Gutv-6-Adwvqwgx Gamma Globulins Monoclonal Peak 3 Ser Monoclonl Protein Ser Monoclonal Prot 2 PEP Interpretation Urine Osmolality 263 L (500-800) mOsm/kg U Random Total Protein Ur Creatinine mg/dL Protein/Creatinin Ratio Urine Albumin (%) U Qniqn-7-Iwiavcvq (%) U Fjsnw-6-Frxihuil (%) U Beta Globulin (%) U Gamma Globulin (%) U Abnormal Prot Band 1 U Abnormal Prot Band 2 U Abnormal Prot Band 3 Urine PEP Interpret Resident Activity Tracking Resident Involvement: Resident Care Provided Care Provided: Adult Hospital Medicine
[2021-05-19] MEDS: APIXABAN 5 MG TABLET PO SCH ×2 (12:50→20:48)
--- NOTE | 2021-05-19 12:50 | Cardiology Progress Note ---
Date of Service May 19, 2021 Assessment & Plan (1) Acute on chronic heart failure with preserved ejection fraction (HFpEF): (2) CAD (coronary artery disease): (3) Hypertension: (4) Hyponatremia: (5) Paroxysmal atrial fibrillation: (6) Bradycardia: (7) Mitral regurgitation: Plan: ASSESSMENT/PLAN: 1. Acute on chronic heart failure with preserved EF: She still appears hypervolemic but is diuresing well and weight has declined by approximately 4 lb since yesterday. Continue current diuretic regimen. She is receiving sodium tablets as per Nephrology due to significant hyponatremia on presentation. Continue daily weights and strict I&Os. 2. Paroxysmal AFib: Has been on amiodarone and beta-antonieta but rhythm has been sinus bradycardia here. Amiodarone was reduced from 200 mg twice daily to 200 mg once daily yesterday. Carvedilol also reduced but not receiving carvedilol at scheduled times due to bradycardia. Will further reduce carvedilol to 6.25 mg twice daily for now. Continue anticoagulation for stroke risk reduction. 3. CAD s/p RCA PCI: No angina. Was on aspirin as an outpatient but not currently receiving aspirin. Would resume aspirin 81 mg daily if no absolute contraindication given prior PCI. Adjusting beta-antonieta as above. Continue high-intensity statin therapy. On FLAQUITO-inhibitor. 4. Bradycardia: Plan as above to further reduce beta-antonieta as she is not receiving schedule doses due to hold parameters and heart rates in the 40s to 50s. May need to further reduce beta-antonieta or hold depending on heart rate. Amiodarone reduced from a total of 400 mg daily to 200 mg daily may also improve heart rate over the course of the next several days/weeks. Currently does not appear to be symptomatic from mild bradycardia. 5. Hyponatremia: As per Nephrology. 6. Anemia: As per primary service. 7. Mitral regurgitation: Reported as moderate to severe. Continue to monitor. May appear worse than usual while hypervolemic. Dr. Mcpherson will continue to manage/monitor. 8. Aortic stenosis: Non severe. 9. Disposition: Dr. Mcpherson will resume his cardiology care tomorrow. Patient care communicated with Dr. Carson of the primary hospitalist service. Admission and Anticipated Discharge Date Admission Date: May 16, 2021 Subjective She is feeling better this morning. She denies chest pain, palpitations, or bleeding. Denies orthopnea but does have dyspnea with exertion. Review of systems: As above. Physical Exam Physical Exam: Gen.: No acute distress. Alert. HEENT: Anicteric sclera. Neck: Mild JVD. Cardiac: Regular and bradycardic. Normal S1-S2. 2/6 systolic murmur. No rubs or gallops. Pulmonary: Decreased breath sounds at the bases but otherwise clear. Abdomen: Soft, nontender, nondistended, with normoactive bowel sounds. No bruits noted. Extremities: Right radial pulse not palpable. 2+ left radial pulse. 1+ left lower extremity edema. 2+ right lower extremity edema. No cyanosis. Results & Data ([facility]) Vital Signs (Past 12 Hours) Vital Signs Temp Pulse Pulse Resp BP Pulse Ox 05/19/21 11:52 36.6 C 48 L 18 159/63 H 94 05/19/21 07:58 36.4 C L 53 L 18 187/69 H 90 05/19/21 04:15 36.4 C L 53 L 20 184/64 H 95 05/19/21 04:09 56 L Intake & Output 05/17/21 05/18/21 05/19/21 05/20/21 06:59 06:59 06:59 06:59 Intake Total 1224 / 1224 720 / 720 912 / 912 Output Total 200 / 200 1951 / 1951 3200 / 3200 Balance 1024 / 1024 -1231 / -1231 -2288 / -2288 Weight 189 lb 9.561 oz 182 lb 15.739 oz 178 lb 12.718 oz Laboratory Results Laboratory Results - last 24 hr 05/18/21 05/18/21 05/18/21 10:09 10:11 14:20 WBC RBC Hgb Hct MCV MCH MCHC RDW Std Deviation RDW Coeff of Alysa Plt Count MPV Sodium 123 L Potassium 4.5 Chloride 91 L Carbon Dioxide 23 Anion Gap 9.0 BUN 17 Creatinine 0.95 Est Cr Clr Drug Dosing 49.8 Est GFR ( Amer) 66.5 Est GFR (Non-Af Amer) 57.4 BUN/Creatinine Ratio 18.2 Glucose 125 H POC Glucose Calcium 8.3 L Phosphorus Magnesium Total Protein (PEP) Albumin (PEP) Vsbgy-7-Sgdhjvqkx Blrjg-7-Nkkjjidwy Jxns-5-Ptskymwv Wphh-2-Zatglldd Gamma Globulins Monoclonal Peak 3 Ser Monoclonl Protein Ser Monoclonal Prot 2 PEP Interpretation Urine Osmolality 263 L U Random Total Protein Pending Ur Creatinine mg/dL Pending Protein/Creatinin Ratio Pending Urine Albumin (%) Pending U Agjej-2-Edevzdsy (%) Pending U Lpryq-5-Qxnsnorg (%) Pending U Beta Globulin (%) Pending U Gamma Globulin (%) Pending U Abnormal Prot Band 1 Pending U Abnormal Prot Band 2 Pending U Abnormal Prot Band 3 Pending Urine PEP Interpret Pending 05/18/21 05/18/21 05/19/21 17:27 21:13 07:18 WBC RBC Hgb Hct MCV MCH MCHC RDW Std Deviation RDW Coeff of Alysa Plt Count MPV Sodium Potassium Chloride Carbon Dioxide Anion Gap BUN Creatinine Est Cr Clr Drug Dosing Est GFR ( Amer) Est GFR (Non-Af Amer) BUN/Creatinine Ratio Glucose POC Glucose 144 H 142 H Calcium Phosphorus Magnesium Total Protein (PEP) Pending Albumin (PEP) Pending Kpqfa-9-Wyaoaeazz Pending Onnno-0-Lrwxstlni Pending Lbnd-7-Sqwswlnh Pending Cgpf-5-Gybkiabd Pending Gamma Globulins Pending Monoclonal Peak 3 Pending Ser Monoclonl Protein Pending Ser Monoclonal Prot 2 Pending PEP Interpretation Pending Urine Osmolality U Random Total Protein Ur Creatinine mg/dL Protein/Creatinin Ratio Urine Albumin (%) U Gmjql-0-Ixjvbrdt (%) U Iawlg-2-Uexapvab (%) U Beta Globulin (%) U Gamma Globulin (%) U Abnormal Prot Band 1 U Abnormal Prot Band 2 U Abnormal Prot Band 3 Urine PEP Interpret 05/19/21 05/19/21 05/19/21 07:18 07:18 08:10 WBC 5.67 RBC 3.13 L Hgb 8.9 L Hct 26.3 L MCV 84.0 MCH 28.4 MCHC 33.8 RDW Std Deviation 46.0 RDW Coeff of Alysa 14.8 H Plt Count 407 H MPV 10.8 H Sodium 126 L Potassium 4.6 Chloride 94 L Carbon Dioxide 24 Anion Gap 8.0 BUN 18 Creatinine 0.85 Est Cr Clr Drug Dosing 55.0 Est GFR ( Amer) 76.1 Est GFR (Non-Af Amer) 65.6 BUN/Creatinine Ratio 21.3 H Glucose 126 H POC Glucose 128 H Calcium 8.5 Phosphorus 3.0 Magnesium 1.5 L Total Protein (PEP) Albumin (PEP) Ntfah-0-Cozmfbsng Nzsjp-7-Jcovbrxys Ezqe-7-Tnoutqek Nqxv-3-Furdoiim Gamma Globulins Monoclonal Peak 3 Ser Monoclonl Protein Ser Monoclonal Prot 2 PEP Interpretation Urine Osmolality U Random Total Protein Ur Creatinine mg/dL Protein/Creatinin Ratio Urine Albumin (%) U Mvtft-2-Delgmtoc (%) U Dyjkh-7-Cqhxjlgo (%) U Beta Globulin (%) U Gamma Globulin (%) U Abnormal Prot Band 1 U Abnormal Prot Band 2 U Abnormal Prot Band 3 Urine PEP Interpret 05/19/21 11:47 WBC RBC Hgb Hct MCV MCH MCHC RDW Std Deviation RDW Coeff of Alysa Plt Count MPV Sodium Potassium Chloride Carbon Dioxide Anion Gap BUN Creatinine Est Cr Clr Drug Dosing Est GFR ( Amer) Est GFR (Non-Af Amer) BUN/Creatinine Ratio Glucose POC Glucose 150 H Calcium Phosphorus Magnesium Total Protein (PEP) Albumin (PEP) Vgbkm-2-Klofuiqym Xmbqy-7-Cuyhnvwuu Kgby-0-Wscgivex Ponv-8-Kaizmkea Gamma Globulins Monoclonal Peak 3 Ser Monoclonl Protein Ser Monoclonal Prot 2 PEP Interpretation Urine Osmolality U Random Total Protein Ur Creatinine mg/dL Protein/Creatinin Ratio Urine Albumin (%) U Emzux-9-Hnqltjfx (%) U Abwhu-7-Dxzyisij (%) U Beta Globulin (%) U Gamma Globulin (%) U Abnormal Prot Band 1 U Abnormal Prot Band 2 U Abnormal Prot Band 3 Urine PEP Interpret Diagnostic Findings Telemetry personally reviewed: Sinus bradycardia mostly in the 50s this morning. No significant pause. Echo 05/18/2021: Normal LV systolic function. EF 65-70%. Type 3 diastolic dysfunction. Moderate left atrial dilation. Mild aortic stenosis. Moderate to severe MR. RVSP 40-50. Medications Administered Current Inpatient Medications Acetaminophen (Acetaminophen 325 Mg Tab) 650 mg PO Q4H PRN PRN Reason: Pain or Fever Stop: 06/16/21 01:02 Last Admin: 05/18/21 12:21 Dose: 650 mg Documented by: Amiodarone HCl (Amiodarone 200 Mg Tab) 200 mg PO DAILY AUNDREA Stop: 06/17/21 08:59 Last Admin: 05/19/21 08:29 Dose: 200 mg Documented by: Amlodipine Besylate (Amlodipine Besylate 5 Mg Tab) 10 mg PO QPM AUNDREA Stop: 06/16/21 01:02 Last Admin: 05/18/21 21:17 Dose: 10 mg Documented by: Apixaban (Apixaban 5 Mg Tablet) 5 mg PO BID AUNDREA Stop: 06/16/21 01:02 Last Admin: 05/18/21 21:18 Dose: 5 mg Documented by: Atorvastatin Calcium (Atorvastatin 40 Mg Tab) 40 mg PO QAM AUNDREA Stop: 06/16/21 08:59 Last Admin: 05/19/21 08:30 Dose: 40 mg Documented by: Carvedilol (Carvedilol 12.5 Mg Tab) 12.5 mg PO BID AUNDREA Stop: 06/16/21 20:59 Last Admin: 05/19/21 08:32 Dose: 12.5 mg Documented by: Cephalexin HCl (Cephalexin 500 Mg Cap) 500 mg PO QID [facility] Stop: 05/20/21 17:01 Last Admin: 05/19/21 08:31 Dose: 500 mg Documented by: Clonidine HCl (Clonidine Hcl 0.1 Mg Tab) 0.1 mg PO HS [facility] Stop: 06/16/21 01:02 Last Admin: 05/18/21 21:16 Dose: 0.1 mg Documented by: Dextrose (Dextrose 50% 50 Ml Syringe) 25 - 50 ml IV UD PRN; Protocol PRN Reason: Hypoglycemia Protocol Stop: 06/16/21 01:02 Furosemide (Furosemide Inj 20 Mg/2 Ml Vial) 20 mg IV BID AUNDREA Stop: 06/17/21 20:59 Last Admin: 05/19/21 08:32 Dose: 20 mg Documented by: Glucagon (Glucagon For Inj 1 Mg Vial) 1 mg SQ UD PRN; Protocol PRN Reason: Hypoglycemia Protocol Stop: 06/16/21 01:02 Glucose (Glucose 10 Tabs/Tube) 4 - 8 tabs PO UD PRN; Protocol PRN Reason: Hypoglycemia Protocol Stop: 06/16/21 01:02 Glucose (Glucose 40% Gel 15 Gm Tube) 15 - 30 gm PO UD PRN; Protocol PRN Reason: Hypoglycemia Protocol Stop: 06/16/21 01:02 Hydralazine HCl (Hydralazine Hcl 25 Mg Tab) 25 mg PO Q6HWA ANUDREA Stop: 06/16/21 01:02 Last Admin: 05/19/21 06:38 Dose: 25 mg Documented by: Magnesium Sulfate/Dextrose (Magnesium Sulfate / D5w) 1 gm in 100 mls @ 50 mls/h r IV Q2H [facility] Stop: 05/19/21 15:59 Insulin Aspart (Insulin Aspart Per Unit) 0 units SC ACHS [facility] Stop: 06/16/21 01:02 Last Admin: 05/19/21 08:41 Dose: 3 units Documented by: Insulin Glargine (Insulin Glargine Solostar 100 Units/Ml 3 Ml Pen) 7 units SC BID [facility] Stop: 06/16/21 01:02 Last Admin: 05/19/21 08:31 Dose: 7 units Documented by: Lisinopril (Lisinopril 40 Mg Tab) 40 mg PO QAM [facility] Stop: 06/16/21 08:59 Last Admin: 05/19/21 08:30 Dose: 40 mg Documented by: Miscellaneous (Carbohydrates For Hypoglycemia ) 15 - 30 gm PO UD PRN PRN Reason: Hypoglycemia Protocol Stop: 06/16/21 01:02 Ondansetron HCl (Ondansetron Inj 2 Mg/Ml 2 Ml Vial) 4 mg IV Q6H PRN PRN Reason: Nausea Stop: 06/16/21 01:02 Pantoprazole Sodium (Pantoprazole 40 Mg Tab) 40 mg PO DAILY [facility] Stop: 06/16/21 08:59 Last Admin: 05/19/21 08:30 Dose: 40 mg Documented by: Polyethylene Glycol (Polyethylene (Miralax) 17 Gm Pack) 17 gm PO DAILY PRN PRN Reason: Constipation Stop: 06/16/21 01:02 Last Admin: 05/18/21 08:20 Dose: 17 gm Documented by: Polyethylene Glycol (Polyethylene (Miralax) 17 Gm Pack) 17 gm PO BID [facility] Stop: 06/17/21 20:59 Last Admin: 05/19/21 08:34 Dose: Not Given Documented by: Sennosides (Senna 8.6 Mg Tab) 8.6 mg PO QAM PRN PRN Reason: Constipation Stop: 06/17/21 14:29 Last Admin: 05/19/21 08:44 Dose: 8.6 mg Documented by: Sodium Chloride (Sodium Chloride 1 Gm Tablet) 1 gm PO BID [facility] Stop: 06/18/21 20:59 Spironolactone (Spironolactone 25 Mg Tab) 50 mg PO QAM [facility] Stop: 06/18/21 10:44 PG Care Time/CCT Total # of Minutes Spent Total Time Spent with Patient: Total time spent is greater than 50% in coordination of care (as documented) at patient's floor/unit and/or counseling patient: Coding Level of Care Code 26024 Subseq Hosp Care Lvl 3 Diagnoses Acute on chronic heart failure with preserved ejection fraction (HFpEF) I50.33 CAD (coronary artery disease) I25.10 Hypertension I10 Hypertension type: unspecified Hyponatremia E87.1 Paroxysmal atrial fibrillation I48.0 Bradycardia R00.1 Mitral regurgitation I34.0 (1) Hypertension Hypertension type: unspecified Qualified Code(s): I10 - Essential (primary) hypertension
[2021-05-19] MEDS: MAGNESIUM SULFATE / D5W 1 GM/100 ML BAG IV SCH ×2 (12:51→15:21)
[2021-05-19] MEDS: ASPIRIN 81 MG ECTAB PO SCH (15:20)
[2021-05-19 19:35] LABS: BUN Creatinine Ratio 20.8 (10-20); Calcium 8.5 mg/dl (8.5-10.1); Creatinine Clr Calc Pharmacy 53.7 ml/min; Est GFR (Non-African American) 63.8 ml/min; Potassium 4.8 mmol/L (3.5-5.1)
[2021-05-19] MEDS: SODIUM CHLORIDE 1 GM TABLET PO SCH (20:48)
[2021-05-19] MEDS: amLODIPine BESYLATE 5 MG TAB PO SCH (20:49)
[2021-05-19] MEDS: cloNIDine HCL 0.1 MG TAB PO SCH (20:49)
[2021-05-20] MEDS: hydrALAZINE HCL 25 MG TAB PO SCH (06:17)
--- NOTE | 2021-05-20 06:56 | Hospitalist Progress Note ---
Date of Service May 20, 2021 Assessment & Plan (1) Hyponatremia: Plan: 80 F with PMH of paroxysmal atrial fibrillation, DM2 with neuropathy, CAD with prior NSTEMI earlier this month, s/p cath and stent 2018, PAD fem-fem bypass in April, resistant HTN, anemia, hyperlipidemia, current right leg cellulitis managed outpatient with Keflex, admitted for severe hyponatremia. Acute on chronic diastolic CHF: CXR 05/17: Small bilateral pleural effusions (present previous CXR). Cardiomegaly. No airspace opacities are seen. TTE 05/18: Moderate concentric left ventricular hypertrophy, Grade III diastolic dysfunction consistent with increased LA pressure. LA moderately dilated. RV systolic pressure elevated at 40-50mmHg. Moderate-severe MR -Diuresing well. -continue lasix at 20mgs IV bid. -daily weight, Is and Os. 24 hr Is/Os 780 in 5L out. cumulative 6.6L out Hypoosmolar Hyponatremia: - Sodium has improved from 117 on admission to 129 - Nephrology recs, signed off - Continue Lasix 20mg IV BID - order on hold to reassess renal function in am 05/21/2021 - Decreased NaCl from 2g po BID to 1g po BID on 05/19. - Fluid restriction < 2L/day. - Monitor BMP q12h. Acute kidney injury - 05/20 AM->PM. 0.76->1.31, - Hold morning lasix for 05/21. to reassess with am labs and then resume lasix. - hold lisinopril Bradycardia, Paroxysmal Atrial Fibrillation with RVR (history of) - EKG: Sinus bradycardia with 1st degree AV block - Given patient's history of paroxysmal AFib with RVR, on multiple HTN medications, concern for sick sinus syndrome - Cardiology consulted: - Carvedilol was decreased from 25mg po BID to 12.5mg po BID. Since still bradycardic and not getting decreased - dose further reduced to 6.25mgs. - Amiodarone decreased from 200mg po BID to 200mg po daily. - Continue apixaban for stroke prevention due to hx of paroxysmal atrial fibrillation. - coreg further decreased to 3.125mgs bid. Cellulitis of right foot, presumed - Started on Keflex 500mg Q4 as outpatient - Course completed as of 05/20 at 1700 - Some erythema noted at R azar; however, more likely differential is peripheral vascular disease. Less likely cellulitis and less likely venous stasis. No further abx indicated. HypoMag 1.5 s/p repletion. recheck. Anemia, chronic w/ new gross hematuria - Previous studies show baseline around 10 - Continue to monitor CBC - Hold Eliquis 5 mg PO BID temporarily (until 1220 PM), for afib. Also has hx cva. Patient is on baby ASA and statin for peripheral vasc disease (fem-fem bypass 04/2021). Will f/u w/ cardio and vascular regarding risk/benefit / optimal regimen - amiodarone may also increase concentration of Eliquis, though no formal dose adjustment generally recommended HTN - Continue hydralazine (cardiology increased to 50 mgPO TID), - continue Coreg - dose decreased to 3.125mgs bid due to persistent bradycardia - continue clonidine - hold lisinopril in setting of LEV and hold spironolactone in setting of hypoNa - consider sleep study Constipation - Begin Miralax 17g BID and Senna PRN Hypomagnesia - Will continue to monitor magnesium qAM and replete as indicated. Nausea, controlled - Continue Zofran Q6h prn for nausea. Continue to monitor. Type 2 DM, A1c 7% - Oral home meds held (glimepiride 4 mg BID, metformin 1000 BID) - Started on 7 units of Lantus BID with sliding scale CAD/PAD/HLD - Prior NSTEMI (previous admission 05/2021) - S/P cardiac cath and stent 2018 - Fem-fem artery bypass 04/04/2021 - Continue atorvastatin and aspirin and B atnonieta, ACEi Weakness/Deconditioning - Likely secondary to hyponatremia, bradycardia, and paroxysmal atrial fibrillation - PT/OT evaluations ordered 05/19 Dispo: Med/Surg with telemetry, home pending PT/OT consult FEN/GI: DM 2 diet, fluid restriction <2L/day DVT prophylaxis: miranda Perez Code: Full code Admission and Anticipated Discharge Date Admission Date: May 16, 2021 Supervising Physician Co-Signing Physician Notes Resident Physician Supervision Note: I independently interviewed and examined the patient and verified the yi history and physical, reviewed labs and image studies and agree with resident Dr. Carbajal findings and care plan. Subjective Feeling a little better. Slept well. Slight dyspnea this AM. Currently on room air. No spears at home. Recent pneumonia and PVD procedure. No home O2. Review of Systems Review of Systems: All systems reviewed & are unremarkable except as noted in HPI & below Constitutional: Denies fever, chills Eyes: Denies blurry vision, vision changes ENT: Denies sore throat, sinus pain Cardiovascular: Denies chest pain, palpitations Respiratory: Mild dyspnea Gastrointestinal: Denies abdominal pain, nausea, vomiting, constipation, diarrhea Genitourinary: Denies urinary symptoms including dysuria Musculoskeletal: Denies weakness, muscle aches/pain, joint aches/pain Neurological: Denies headache, numbness, tingling, focal weakness Physical Exam Physical Exam: General: Grossly A&O. NAD. Cooperative. HEENT: Atraumatic, normocephalic. EOMI. Possible JVD on R 9cm. Pulm: Decreased air movment diffusely. Faint insp crackles RLL. No respiratory distress. Cardiac: RRR. 2/16 systolic murmur. 2+ BLE pretibial. Abdominal: Nontender, nondistended, soft. Integ: R ankle has dull erythema at ankle, patient attributes to vascular procedure in nov. on keflex Results & Data Results & Data ([facility]) Vital Signs (Past 12 Hours) Vital Signs HR 50s. BP intermittently up to 185/52, 179/61. Intermittent 2L NC vs RA Temp Pulse Resp BP BP Pulse Ox 05/20/21 03:06 36.5 C 50 L 18 160/73 H 96 05/19/21 23:10 37.3 C 59 L 18 144/56 H 90 05/19/21 19:25 36.4 C L 54 L 20 185/52 H 96 Laboratory Results No leukocytosis. Hb stable 9.4. Na 126->129. Cr .76. Mg 1.5 on 05/19. 05/18 echo: moderate concen LVH. Grade 3 diastolic dysfunction. Mod L atrium dilation. Mod-severe MR. RVSP elev at 40-50mmhg. ef 65-70 Diagnostic Findings 05/17 ecg sinus chemo 45 w/ 1st deg AV block. Resident Activity Tracking Resident Involvement: Resident Care Provided Care Provided: [facility] Medicine
[2021-05-20 06:59] LABS: Hematocrit (blood only) 27.8 % (37-47); Hemoglobin 9.4 g/dL (12.0-16.0); Mean Corpuscular Hemoglobin 28.2 pg (25-34); Mean Corpuscular Hgb Conc 33.8 g/dL (32-36); Mean Corpuscular Volume 83.5 fL (80-100); Platelet Count 416 K/uL (130-400); RDW Coefficient of Variation 14.9 % (11.5-14.5); RDW Standard Deviation 45.5 fL (36.4-46.3); Red Blood Count 3.33 M/uL (4.2-5.4); White Blood Count 6.34 K/uL (4.8-10.8)
[2021-05-20 07:28] LABS: Calcium 8.7 mg/dl (8.5-10.1); Creatinine Clr Calc Pharmacy 61.2 ml/min; Est GFR (African American) 87.1 ml/min; Est GFR (Non-African American) 75.1 ml/min; Potassium 4.4 mmol/L (3.5-5.1)
[2021-05-20] MEDS: ATORVASTATIN 40 MG TAB PO SCH (08:26)
[2021-05-20] MEDS: PANTOprazole 40 MG TAB PO SCH (08:26)
[2021-05-20] MEDS: lisinopril 40 MG TAB PO SCH (08:26)
[2021-05-20] MEDS: ASPIRIN 81 MG ECTAB PO SCH (08:26)
[2021-05-20] MEDS: AMIODARONE 200 MG TAB PO SCH (08:27)
[2021-05-20] MEDS: APIXABAN 5 MG TABLET PO SCH ×2 (08:28→20:15)
[2021-05-20] MEDS: SODIUM CHLORIDE 1 GM TABLET PO SCH ×2 (08:28→20:22)
[2021-05-20] MEDS: cephALEXin 500 MG CAP PO SCH ×3 (08:28→17:27)
[2021-05-20] MEDS: FUROSEMIDE INJ 20 MG/2 ML VIAL IV SCH ×2 (08:29→20:21)
[2021-05-20] MEDS: INSULIN GLARGINE SOLOSTAR 100 UNITS/ML 3 ML PEN SC SCH ×2 (08:33→20:22)
[2021-05-20] MEDS: INSULIN ASPART PER UNIT SC SCH ×4 (08:38→20:21)
[2021-05-20] MEDS: POLYETHYLENE (MIRALAX) 17 GM PACK PO SCH ×2 (10:23→20:25)
--- NOTE | 2021-05-20 11:52 | Nephrology Progress Note ---
Date of Service May 20, 2021 Assessment & Plan (1) Hyponatremia: (2) Hypomagnesemia: Plan: 80 y o F admitted after outpatient lab showed hyponatremia, sodium was 117, urine osmolality III 50. she was thought to be diastolic CHF with BNP more than 2000, started on salt tablets 2 g twice a day and Lasix 20 mg daily. Sodium slowly improved to 126 this morning. Her blood pressure remains elevated. She was on spironolactone which has been on hold. Na improved to 129. -- salt tablet to 1 gm bid, continue Lasix -- restarted on spironolactone at 50 mg daily, continue on other antihypertensive medications. -- Monitor serum sodium every 12 hours Will sign off Admission and Anticipated Discharge Date Admission Date: May 16, 2021 Subjective Florance feels well today. Denies any symptoms, SOB improving rt LE edema improved. BP continues to be high. Review of Systems 2 Review of Systems: Detail ROS was otherwise unremarkable. Physical Exam Constitutional: WD/WN, vitals as above no acute distress Eyes: + anicteric sclerae Respiratory: normal respiratory effort; no respiratory distress Auscultation: lungs clear to auscultation bilaterally Cardiovascular: Rate/Rhythm: regular rate and regular rhythm Heart Sounds: normal S1 and normal S2 Extremities: + edema ( Right lower extremity edema) Skin: normal turgor; no rashes Neurologic: no focal motor deficits and not confused Psychiatric: Orientation: alert and oriented x 3 Results & Data ([facility]) Vital Signs (Past 12 Hours) Vital Signs Temp Pulse Pulse Resp BP Pulse Ox 05/20/21 11:42 36.6 C 58 L 20 192/95 H 91 05/20/21 07:48 55 L 05/20/21 07:44 36.4 C L 56 L 20 179/61 H 05/20/21 03:06 36.5 C 50 L 18 160/73 H 96 PG Care Time/CCT Total # of Minutes Spent Total Time Spent with Patient: Total time spent is greater than 50% in coordination of care (as documented) at patient's floor/unit and/or counseling patient: Coding Level of Care Code 38893 Subseq Hosp Care Lvl 2 Diagnoses Hyponatremia E87.1 Hypomagnesemia E83.42
--- NOTE | 2021-05-20 11:54 | Cardiology Progress Note ---
Date of Service May 20, 2021 Assessment & Plan Admission and Anticipated Discharge Date Admission Date: May 16, 2021 Subjective She is feeling better. She is not short of breath talking in sentences. She has any chest pain or chest pressure. Denies any palpitations lightheadedness or dizziness. Her lower extremity edema in her right leg continues to improve. Her appetite is improved and she has less early satiety. She was not short of breath sitting up and she notes she is not short of breath lying flat. The cough she had previously has improved with ongoing diuresis. Results & Data ([facility]) Vital Signs (Past 12 Hours) Vital Signs Temp Pulse Pulse Resp BP Pulse Ox 05/20/21 11:42 36.6 C 58 L 20 192/95 H 91 05/20/21 07:48 55 L 05/20/21 07:44 36.4 C L 56 L 20 179/61 H 05/20/21 03:06 36.5 C 50 L 18 160/73 H 96 The weakness that caused her to come to the hospital is also improved. She is awake alert oriented x3 she is in no acute distress HEENT: 2+ carotid upstrokes no evidence of carotid bruits Lungs: Decreased breath sounds in the bases bilaterally no rales rhonchi or wheezing Abdomen soft nontender senna positive bowel sounds Extremities no clubbing or cyanosis she has no edema of the left leg she continues to have mild to moderate edema of the right leg to the mid tibia Psychiatric: Her affect appeared appropriate Assessment & Plan (1) Hyponatremia: IMPRESSIONS: 1. Accelerated hypertension. 2. Non-ST elevation myocardial infarction in October 2018 with a drug-eluting stent placed to the ostial RCA. 3. Residual mid LAD disease in the range of 20-30%; mid circumflex disease in the range of 60-70%; mid to distal RCA disease in the range of 40-50%. 4. Hyperlipidemia. 5. Moderate aortic stenosis. 6. Preserved biventricular size and function 7. Diabetes mellitus type 2. 8. Negative CT scan for renal artery stenosis 11/2020. 9. 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 10. History of a CVA in 2017. 11. Hyponatremia worsened by hydrochlorothiazide and potentially spironolactone - renin/aldosterone ratio 20.6 so spironolactone maintained 12. Normal carotid ultrasound and no evidence of subclavian stenosis, January 09, 2021. 13. AFib I agree that her worsening mitral regurgitation may actually just be related to a combination of bradycardia and volume overload. My hope is this will improve. We will reassess her mitral regurgitation as an outpatient if it still severe we can discuss mitral clip as an option. She is concerned about her blood pressure. I discussed with her her sodium is improving she is diuresing nicely I would not excessively worry about her blood pressure. I will increase her hydralazine to 50 mg 3 times daily. We will reduce her carvedilol to 3.125 mg twice daily and change the hold to heart rate less than 55. With her on amiodarone 200 mg daily to control her A. fib she may not tolerate any beta-blockers. With reducing her carvedilol dose this is likely contributing to a higher blood pressure. Her salt tablets were reduced yesterday. She diuresed 4 L yesterday and she is diuresing again today significantly. She does not excess appear excessively prerenal on her lab studies. We will continue to watch her sodium, potassium, and renal function. We may need to further uptitrate her hydralazine based on her blood pressures. I would avoid increasing her clonidine as this will only exacerbate her bradycardia and fluid retention.
[2021-05-20] MEDS: hydrALAZINE TAB 50 MG TAB PO SCH ×2 (14:00→20:16)
[2021-05-20 19:13] LABS: BUN Creatinine Ratio 15.1 (10-20); Calcium 8.9 mg/dl (8.5-10.1); Creatinine Clr Calc Pharmacy 35.5 ml/min; Est GFR (African American) 45.1 ml/min; Est GFR (Non-African American) 38.9 ml/min; Potassium 4.4 mmol/L (3.5-5.1)
[2021-05-20] MEDS: amLODIPine BESYLATE 5 MG TAB PO SCH (20:15)
[2021-05-20] MEDS: carvediloL 3.125 MG TAB PO SCH (20:15)
[2021-05-20] MEDS: cloNIDine HCL 0.1 MG TAB PO SCH (20:21)
--- NOTE | 2021-05-21 06:59 | Hospitalist Progress Note ---
Date of Service May 21, 2021 Assessment & Plan (1) Hyponatremia: Plan: 80 F with PMH of paroxysmal atrial fibrillation, DM2 with neuropathy, CAD with prior NSTEMI earlier this month, s/p cath and stent 2018, PAD fem-fem bypass in April, resistant HTN, anemia, hyperlipidemia, current right leg cellulitis managed outpatient with Keflex, admitted for severe hyponatremia. Hypoosmolar Hyponatremia -Initial Na level 117 on admission, has resolved to 131 this AM -Nephrology recs, since signed off -Fluid restriction <2L daily -Salt tabs 1g BID -Lasix 20mg IV BID - since discontinued -Continue to check BMP daily as Na has improved Acute on Chronic HFpEF -TTE 05/18 with EF 65-70%, Grade III diastolic dysfunction, moderate concentric L ventricular hypertrophy, R ventricular systolic pressure 40-50mmHg -Diuresed well with ~10kg since admission -With recent bump in creatinine, will hold further Lasix 20mg IV BID and monitor for fluid overload -Resume Lisinopril and Spironolactone Hypertension -Difficulty to control despite multiple agents, further complicated by need for salt tablets -Cardiology consulted, assisting with med management -Resume Lisinopril and Spironolactone -Hydralazine increased to 75mg TID PO -Continue Coreg 3.125mg BID -Continue Amiodarone 200mg QD -Continue Amlodipine 10mg QD -Continue Clonidine 0.1mg QD -Patient with noted overnight pulse ox of 79%, will require sleep study outpatient to screen for CATRACHO as further cause of HTN RLE redness and swelling -With initial suspicions for cellulitis, treated appropriately with Keflex -With continued swelling and tightness today -Venous doppler negative for acute clot Atrial Fibrillation -Continue Amiodarone -Continue Coreg -Eliquis was held for concerns of gross hematuria, Hgb holding stable -Will resume Eliquis for anticoagulation Dispo: Med/Surg Telemetry, likely discharge home in AM FEN: DM2 diet, Fluid restrict 1500ml DVT: Eliquis Code: Full (2) Mitral regurgitation: (3) Bradycardia: (4) Acute on chronic heart failure with preserved ejection fraction (HFpEF): (5) Paroxysmal atrial fibrillation: (6) PAD (peripheral artery disease): (7) Hypertension: Admission and Anticipated Discharge Date Admission Date: May 16, 2021 Supervising Physician Co-Signing Physician Notes Patient seen and examined, chart reviewed, case discussed with Dr. Wheeler and I agree with the assessment and plan as above except as otherwise noted above. Adri is a 80-year-old female admitted and treated for right lower extremity cellulitis, hyponatremia, and paroxysmal A. fib. Hyperosmolar hyponatremia improving with fluid restriction and salt tabs, continue salt tabs 1 g twice daily and trend BMP daily. No symptoms of hyponatremia at this time. Lasix, lisinopril, and spironolactone held yesterday for creatinine elevation which normalized again today. Lisinopril and spironolactone resumed with normalization of morning hypertension. Right lower extremity cellulitis/swelling, minimal redness/erythema today. Venous Doppler negative for DVT. Continue rest/elevation/compression. Additional antibiotics not indicated at this time. A. fib adequately rate controlled, Eliquis resumed. If patient remains normotensive consider reducing amlodipine if possible 2/2 edema. Patient with multiple blood pressure medications adjusted today, and hypertension with systolic greater than 190 this morning, will follow with adjustments above as patient progresses towards discharge. Subjective Patient evaluated while seated in a chair next to the bed this AM. Patient noting that she is feeling quite well today. Denies any SOB, chest pain, chest pressure, abdominal pain, fever, chills. She does note some RLE "tightness" which she states has been somewhat present since her surgery with Dr. Cash. She feels the swelling in it has not improved significantly since then despite elevation and diuretics. She otherwise has no complaints this AM, though requests that some of her home vitamins be resumed. Review of Systems Review of Systems: All systems reviewed & are unremarkable except as noted in Subjective Physical Exam Constitutional: WD/WN, vitals as above ENMT: external ear and nose normal, oropharynx normal Neck: trachea midline, no thyromegaly Respiratory: normal respiratory effort, lungs clear to auscultation Cardiovascular: Rate/Rhythm: regular rate and regular rhythm Heart Sounds: + murmur (2/6 IVELISSE) Extremities: + calf tenderness (slight on the posterior R popliteal fossa ) and + edema (1+ RLE, trace LLE ) Gastrointestinal (Abdomen): normal bowel sounds, soft, nontender, no hepatosplenomegaly Musculoskeletal: Head/Neck/Chest: normocephalic and head atraumatic Skin: no rashes, warm and dry Neurologic: moves all extremities and awake Psychiatric: A+Ox3, euthymic affect Results & Data Results & Data ([facility]) Vital Signs (Past 12 Hours) Vital Signs Temp Pulse Pulse Pulse Resp BP BP 05/21/21 02:55 36.5 C 57 L 20 195/66 H 05/21/21 02:51 65 05/21/21 00:50 50 L 05/20/21 23:38 05/20/21 22:47 36.8 C 55 L 18 170/57 H 05/20/21 22:04 54 L Pulse Ox Pulse Ox 05/21/21 02:55 98 05/21/21 02:51 87 L 05/21/21 00:50 05/20/21 23:38 89 L 05/20/21 22:47 89 L 05/20/21 22:04 93 Resident Activity Tracking Resident Involvement: Resident Care Provided Care Provided: Adult Hospital Medicine (1) Hypertension Hypertension type: unspecified Qualified Code(s): I10 - Essential (primary) hypertension
[2021-05-21 07:04] LABS: Basophils # (auto) 0.02 K/uL (0-0.2); Basophils % (auto) 0.3 %; Eosinophils # (auto) 0.22 K/uL (0-0.5); Eosinophils % (auto) 3.4 %; Hematocrit (blood only) 27.8 % (37-47); Hemoglobin 9.3 g/dL (12.0-16.0); Immature Granulocytes # (auto) 0.01 K/uL (0.00-0.02); Immature Granulocytes % (auto) 0.2 %; Lymphocytes # (auto) 1.09 K/uL (1.2-3.4); Lymphocytes % (auto) 16.7 %; Mean Corpuscular Hemoglobin 28.1 pg (25-34); Mean Corpuscular Hgb Conc 33.5 g/dL (32-36); Mean Platelet Volume 9.7 fL (7.4-10.4); Monocytes # (auto) 0.85 K/uL (0.11-0.59); Neutrophils # (auto) 4.34 K/uL (1.4-6.5); Neutrophils % (auto) 66.4 %; Platelet Count 400 K/uL (130-400); RDW Coefficient of Variation 14.9 % (11.5-14.5); RDW Standard Deviation 46.4 fL (36.4-46.3); Red Blood Count 3.31 M/uL (4.2-5.4); White Blood Count 6.53 K/uL (4.8-10.8)
[2021-05-21 07:54] LABS: BUN Creatinine Ratio 19.2 (10-20); Calcium 8.8 mg/dl (8.5-10.1); Creatinine Clr Calc Pharmacy 52.7 ml/min; Est GFR (Non-African American) 64.7 ml/min; Magnesium 1.9 mg/dl (1.8-2.4)
[2021-05-21] MEDS: SODIUM CHLORIDE 1 GM TABLET PO SCH ×2 (08:12→19:41)
[2021-05-21] MEDS: hydrALAZINE TAB 50 MG TAB PO SCH (08:13)
[2021-05-21] MEDS: AMIODARONE 200 MG TAB PO SCH (08:13)
[2021-05-21] MEDS: POLYETHYLENE (MIRALAX) 17 GM PACK PO SCH ×2 (08:13→19:42)
[2021-05-21] MEDS: ATORVASTATIN 40 MG TAB PO SCH (08:14)
[2021-05-21] MEDS: ASPIRIN 81 MG ECTAB PO SCH (08:14)
[2021-05-21] MEDS: carvediloL 3.125 MG TAB PO SCH ×2 (08:14→19:40)
[2021-05-21] MEDS: PANTOprazole 40 MG TAB PO SCH (08:14)
[2021-05-21] MEDS: INSULIN GLARGINE SOLOSTAR 100 UNITS/ML 3 ML PEN SC SCH ×2 (08:16→21:04)
[2021-05-21] MEDS: INSULIN ASPART PER UNIT SC SCH ×4 (08:26→21:08)
[2021-05-21] MEDS: lisinopril 40 MG TAB PO SCH (08:28)
--- NOTE | 2021-05-21 09:08 | Cardiology Progress Note ---
Date of Service May 21, 2021 Assessment & Plan (1) Hyponatremia: Plan: IMPRESSIONS: 1. Accelerated hypertension. 2. Non-ST elevation myocardial infarction in October 2018 with a drug-eluting stent placed to the ostial RCA. 3. Residual mid LAD disease in the range of 20-30%; mid circumflex disease in the range of 60-70%; mid to distal RCA disease in the range of 40-50%. 4. Hyperlipidemia. 5. Moderate aortic stenosis. 6. Preserved biventricular size and function 7. Diabetes mellitus type 2. 8. Negative CT scan for renal artery stenosis 11/2020. 9. 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 10. History of a CVA in 2018. 11. Hyponatremia worsened by hydrochlorothiazide and potentially spironolactone - renin/aldosterone ratio 20.6 so spironolactone maintained 12. Normal carotid ultrasound and no evidence of subclavian stenosis, January 09, 2021. 13. AFib Ms. Gould has diuresed quite well, down 10 kg. She can discontinue her bid furosemide as her creatinine bumped yesterday and her lisinopril and spironolactone were held. These can be resumed. Kidney function is stable today. I recommend discontinuing her IV furosemide at this point. Nephrology has placed her on sodium tablets for her hyponatremia which will make her bp a bit more tricky to control. She was placed on spironolactone as her renin/aldosterone ratio was suspicious for hyperaldosteronism. She has not had spontaneous hypokalemia in the past. She should continue the ramon as we well as Coreg, hydralazine, lisinopril, clonidine. I will increase her hydralazine for continued hypertension. Would avoid increasing clonidine as it could worsen her bradycardia. Ms. Gould's heart rate was quite bradycardic in the 40s on admission and this may have exacerbated her failure. Her Coreg was decreased to 3.125 bid and her amiodarone was decreased by half as well. Her heart rate is improved into the 50s. She is on amiodarone and Coreg for rate control in the setting of Afib. She is appropriately on apixaban for stroke prevention. This was evidently held y esterday for hematuria which is likely secondary to irritation from her Castañeda catheter. As we have discontinued IV furosemide, could consider discontinuing the Castañeda catheter to avoid further irritation. Her hgb has been stable and I would recommend resumption of apixaban. She had a repeat echo which showed moderate to severe mitral regurgitation which is worse than previous echo and may be secondary to bradycardia and volume overload. If no improvement with diuresis, will discuss mitral clip outpatient. She also has grade III diastolic dysfunction which is also more severe than previous evaluations. She had a normal iron and ferritin in March. I will put in for SPEP and UPEP. Overnight pulse ox shows a low of 79% on RA. She may need a sleep study outpatient. Ms. Gould was discussed at bedside with the hospitalist. Admission and Anticipated Discharge Date Admission Date: May 16, 2021 Subjective Ms. Gould looks well and has no complaints. No sob, chest pain, palpitations, lightheadedness. Edema is improved. She is down 10 kgs for this admission and put out 4L yesterday. Her bp continues to be elevated. Review of Systems Review of Systems: All systems reviewed & are unremarkable except as noted in HPI & below Physical Exam Constitutional: WD/WN, vitals as above Respiratory: normal respiratory effort, lungs clear to auscultation Cardiovascular: Rate/Rhythm: regular rate Heart Sounds: + murmur (2/6 rusb) Extremities: + edema (trace r>l) Skin: no rashes, warm and dry Neurologic: moves all extremities and awake Psychiatric: A+Ox3, euthymic affect Results & Data ([facility]) Vital Signs (Past 12 Hours) Vital Signs Temp Pulse Pulse Pulse Resp BP BP 05/21/21 08:28 187/54 H 05/21/21 02:55 36.5 C 57 L 20 195/66 H 05/21/21 02:51 65 05/21/21 00:50 50 L 05/20/21 23:38 05/20/21 22:47 36.8 C 55 L 18 170/57 H 05/20/21 22:04 54 L Pulse Ox Pulse Ox 05/21/21 08:28 05/21/21 02:55 98 05/21/21 02:51 87 L 05/21/21 00:50 05/20/21 23:38 89 L 05/20/21 22:47 89 L 05/20/21 22:04 93
[2021-05-21] MEDS ORDERED: NON-FORMULARY MEDICATION (Coenzyme Q10 [Coq-10] 100 mg Capsule) PO SCH (09:30)
[2021-05-21] MEDS ORDERED: hydrALAZINE HCL 25 MG TAB PO ONE (09:45)
[2021-05-21] MEDS: MULTIVITAMIN TAB PO SCH (10:11)
[2021-05-21] MEDS: APIXABAN 5 MG TABLET PO SCH ×2 (10:11→19:40)
[2021-05-21] MEDS: SPIRONOLACTONE 25 MG TAB PO SCH (10:56)
--- NOTE | 2021-05-21 12:18 | Ultrasound Report ---
US venous doppler LE RT HISTORY: 80 years-old Female ?DVT acute pain and swelling of the right lower leg COMPARISON: None TECHNIQUE: Multiple real-time sonographic images of the right lower extremity deep venous structures were obtained assessing grayscale appearance, color and spectral flow. FINDINGS: Normal flow, compressibility, phasicity and augmentation. Diffuse subcutaneous edema. Lymph nodes of the right inguinal chain measure up to 3.5 x 1.7 x 1.1 cm, likely reactive. IMPRESSION: No sonographic evidence of deep venous thrombosis. ACT 112: Negative or not required by law. The above report was generated using voice recognition software. It may contain grammatical, syntax o r spelling errors. Electronically signed by: Abraham Solis M.D. 05/21/2021 12:17 PM
[2021-05-21] MEDS ORDERED: hydrALAZINE HCL 25 MG TAB PO SCH (14:00)
[2021-05-21 18:35] LABS: Albumin 2.6 g/dL (3.8-4.8); Alpha 1 Globulin 0.5 g/dL (0.2-0.3); Beta-1-Globulin 0.4 g/dL (0.4-0.6); Beta-2-Globulin 0.3 g/dL (0.2-0.5); Gamma Globulin 0.6 g/dL (0.8-1.7); Monoclonal Protein Band 1 DNR g/dL (NONE DETECTED); Monoclonal Protein Band 2 DNR g/dL (NONE DETECTED); Monoclonal Protein Band 3 DNR g/dL (NONE DETECTED); Total Protein 5.3 g/dL (6.1-8.1)
[2021-05-21] MEDS: amLODIPine BESYLATE 5 MG TAB PO SCH (19:39)
[2021-05-21] MEDS: hydrALAZINE HCL 25 MG TAB PO SCH (19:40)
[2021-05-21] MEDS: cloNIDine HCL 0.1 MG TAB PO SCH (19:42)
[2021-05-21] MEDS ORDERED: hydrALAZINE TAB 50 MG TAB PO SCH (21:00)
[2021-05-22 06:08] LABS: Basophils # (auto) 0.03 K/uL (0-0.2); Basophils % (auto) 0.4 %; Eosinophils # (auto) 0.32 K/uL (0-0.5); Eosinophils % (auto) 4.6 %; Hematocrit (blood only) 29.8 % (37-47); Hemoglobin 9.8 g/dL (12.0-16.0); Immature Granulocytes # (auto) 0.01 K/uL (0.00-0.02); Immature Granulocytes % (auto) 0.1 %; Lymphocytes % (auto) 17.1 %; Mean Corpuscular Hemoglobin 28.1 pg (25-34); Mean Corpuscular Hgb Conc 32.9 g/dL (32-36); Mean Corpuscular Volume 85.4 fL (80-100); Mean Platelet Volume 10.3 fL (7.4-10.4); Monocytes # (auto) 0.91 K/uL (0.11-0.59); Monocytes % (auto) 12.9 %; Neutrophils # (auto) 4.56 K/uL (1.4-6.5); Neutrophils % (auto) 64.9 %; Platelet Count 495 K/uL (130-400); RDW Coefficient of Variation 15.2 % (11.5-14.5); RDW Standard Deviation 47.3 fL (36.4-46.3); Red Blood Count 3.49 M/uL (4.2-5.4); White Blood Count 7.03 K/uL (4.8-10.8)
[2021-05-22 06:39] LABS: BUN Creatinine Ratio 19.4 (10-20); Calcium 9.2 mg/dl (8.5-10.1); Creatinine Clr Calc Pharmacy 50.4 ml/min; Est GFR (Non-African American) 61.2 ml/min; Potassium 4.3 mmol/L (3.5-5.1)
[2021-05-22] MEDS: carvediloL 3.125 MG TAB PO SCH ×2 (07:56→20:30)
[2021-05-22] MEDS: APIXABAN 5 MG TABLET PO SCH ×2 (07:57→20:31)
[2021-05-22] MEDS: hydrALAZINE HCL 25 MG TAB PO SCH (07:57)
[2021-05-22] MEDS: lisinopril 40 MG TAB PO SCH (07:57)
[2021-05-22] MEDS: ATORVASTATIN 40 MG TAB PO SCH (07:57)
[2021-05-22] MEDS: MULTIVITAMIN TAB PO SCH (07:57)
[2021-05-22] MEDS: SPIRONOLACTONE 25 MG TAB PO SCH (07:58)
[2021-05-22] MEDS: ASPIRIN 81 MG ECTAB PO SCH (07:58)
[2021-05-22] MEDS: SODIUM CHLORIDE 1 GM TABLET PO SCH ×2 (07:58→20:34)
[2021-05-22] MEDS: PANTOprazole 40 MG TAB PO SCH (07:58)
[2021-05-22] MEDS: AMIODARONE 200 MG TAB PO SCH (07:58)
[2021-05-22] MEDS: POLYETHYLENE (MIRALAX) 17 GM PACK PO SCH ×2 (07:58→20:34)
[2021-05-22] MEDS: INSULIN GLARGINE SOLOSTAR 100 UNITS/ML 3 ML PEN SC SCH ×2 (08:02→20:33)
[2021-05-22] MEDS: INSULIN ASPART PER UNIT SC SCH ×4 (08:06→20:34)
[2021-05-22 09:34] LABS: Creatinine Ur 48 mg/dL (20-275); Protein, Urine Random 34 mg/dL (5-24); Ur Protein/Creat Ratio mg/g 708 mg/g creat (21-161); Urine Abnormal Protein Band 1 DNR mg/dL (NONE DETECTED); Urine Abnormal Protein Band 2 DNR mg/dL (NONE DETECTED); Urine Abnormal Protein Band 3 DNR mg/dL (NONE DETECTED); Urine Protein/Creatinine Ratio 0.708 (0.021-0.161)
--- NOTE | 2021-05-22 09:45 | Cardiology Progress Note ---
Date of Service May 22, 2021 Assessment & Plan (1) Hyponatremia: Plan: IMPRESSIONS: 1. Accelerated hypertension. 2. Non-ST elevation myocardial infarction in October 2018 with a drug-eluting stent placed to the ostial RCA. 3. Residual mid LAD disease in the range of 20-30%; mid circumflex disease in the range of 60-70%; mid to distal RCA disease in the range of 40-50%. 4. Hyperlipidemia. 5. Moderate aortic stenosis. 6. Preserved biventricular size and function 7. Diabetes mellitus type 2. 8. Negative CT scan for renal artery stenosis 11/2020. 9. 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 10. History of a CVA in 2018. 11. Hyponatremia worsened by hydrochlorothiazide and potentially spironolactone - renin/aldosterone ratio 20.6 so spironolactone maintained 12. Normal carotid ultrasound and no evidence of subclavian stenosis, January 09, 2021. 13. AFib Ms. Gould was effectively diuresed and is down 10 kg from admission. Nephrology has placed her on sodium tablets for her hyponatremia which will make her bp a bit more tricky to control. She was placed on spironolactone as her renin/aldosterone ratio was suspicious for hyperaldosteronism. She has not had spontaneous hypokalemia in the past. I would recommend referral to endocrinology as an outpatient for further exploration given how difficult her blood pressure continues to be. She should continue the ramon as we well as Coreg, hydralazine, lisinopril, clonidine. I will increase her hydralazine for continued hypertension and resume po furosemide. Would avoid increasing clonidine as it could worsen her bradycardia. Her kidney function is stable. Ms. Gould's heart rate was quite bradycardic in the 40s on admission and this may have exacerbated her failure. Her Coreg was decreased to 3.125 bid and her amiodarone was decreased by half as well. Her heart rate is improved into the 50s. She is on amiodarone and Coreg for rate control in the setting of Afib. She is appropriately on apixaban for stroke prevention. She had a repeat echo which showed moderate to severe mitral regurgitation which is worse than previous echo and may be secondary to bradycardia and volume overload. If no improvement with diuresis, will discuss mitral clip outpatient. She also has grade III diastolic dysfunction which is also more severe than previous evaluations. She had a normal iron and ferritin in March. I will put in for SPEP and UPEP. Overnight pulse ox shows a low of 79% on RA. She may need a sleep study outpatient. Ms. Gould was discussed at bedside with the hospitalist. Admission and Anticipated Discharge Date Admission Date: May 16, 2021 Subjective Ms. Gould feels well today, no sob, chest pain, palpitations. She is SR on the monitor. She is frustrated with her elevated bp Review of Systems Review of Systems: All systems reviewed & are unremarkable except as noted in HPI & below Physical Exam Constitutional: WD/WN, vitals as above Respiratory: normal respiratory effort, lungs clear to auscultation Cardiovascular: RRR, no murmur, no edema Skin: no rashes, warm and dry Neurologic: moves all extremities and awake Psychiatric: A+Ox3, euthymic affect Results & Data ([facility]) Vital Signs (Past 12 Hours) Vital Signs Temp Pulse Pulse Resp BP Pulse Ox 05/22/21 07:41 36.6 C 51 L 18 194/72 H 95 05/22/21 07:00 60 05/22/21 04:49 36.6 C 51 L 18 163/64 H 92 05/22/21 01:16 48 L 05/22/21 00:06 36.6 C 54 L 12 172/68 H 93
[2021-05-22] MEDS ORDERED: carvediloL 3.125 MG TAB PO ONE ×2 (11:00)
[2021-05-22] MEDS: FUROSEMIDE 40 MG TAB PO SCH (11:17)
--- NOTE | 2021-05-22 13:07 | Hospitalist Progress Note ---
Date of Service May 22, 2021 Assessment & Plan (1) Hyponatremia: Plan: 80 F with PMH of paroxysmal atrial fibrillation, DM2 with neuropathy, CAD with prior NSTEMI earlier this month, s/p cath and stent 2018, PAD fem-fem bypass in April, resistant HTN, anemia, hyperlipidemia, current right leg cellulitis managed outpatient with Keflex, admitted for severe hyponatremia. Hypoosmolar Hyponatremia -Initial Na level 117 on admission, resolved -Nephrology recs, since signed off -Fluid restriction <2L daily -Salt tabs 1g BID -Lasix 20mg IV BID - since discontinued -Continue to check BMP daily as Na has improved Acute on Chronic HFpEF -TTE 05/18 with EF 65-70%, Grade III diastolic dysfunction, moderate concentric L ventricular hypertrophy, R ventricular systolic pressure 40-50mmHg -Diuresed well with ~10kg since admission -With recent bump in creatinine, will hold further Lasix 20mg IV BID and monitor for fluid overload -Resume Lisinopril and Spironolactone -PO Lasix 40mg QD resumed per cardiology recs Hypertension -Difficulty to control despite multiple agents, further complicated by need for salt tablets -Cardiology consulted, assisting with med management -Resumed Lisinopril and Spironolactone -Hydralazine increased to 100mg TID PO -Continue Coreg 3.125mg BID -Continue Amiodarone 200mg QD -Continue Amlodipine 10mg QD -Continue Clonidine 0.1mg QD -Lasix 40mg PO QD added -If pressures continue to remain elevated, could consider increase in Spironolactone next -Patient with noted overnight pulse ox of 79%, will require sleep study outpatient to screen for CATRACHO as further cause of HTN RLE redness and swelling -With initial suspicions for cellulitis, treated appropriately with Keflex -Venous doppler negative for acute clot -Improved today, monitor as patient resumes PO Lasix Atrial Fibrillation -Continue Amiodarone -Continue Coreg -Continue Eliquis, Hgb stable Dispo: Med/Surg Telemetry FEN: DM2 diet, Fluid restrict 1800ml DVT: Eliquis Code: Full (2) Mitral regurgitation: (3) Bradycardia: (4) Acute on chronic heart failure with preserved ejection fraction (HFpEF): (5) Paroxysmal atrial fibrillation: (6) PAD (peripheral artery disease): (7) Hypertension: Admission and Anticipated Discharge Date Admission Date: May 16, 2021 Supervising Physician Co-Signing Physician Notes Patient seen and examined, chart reviewed, case discussed with Dr. Wheeler and I agree with the assessment and plan as above except as otherwise noted above. Adri is a 80-year-old female admitted and treated for right lower extremity cellulitis, hyponatremia, and paroxysmal A. fib. Bedside assessment is nondistressed, is without headache/lightheadedness/dizziness. Patient nondistressed, symmetrical chest rise, skin warm and dry, radial pulse intact, bradycardic and regular. Hyperosmolar hyponatremia improving with fluid restriction and salt tabs, continue salt tabs 1 g twice daily Continues to have inadequately controlled hypertension greater than 180 systolic today requiring ongoing treatment. Blood pressure somewhat labile, likely to be worsened with salt treatment as noted. Hydralazine increased, spironolactone could be increased if needed, defer increase in Coreg 2/2 bradycardia. Cellulitis remains improved, no additional/change in treatment at this time Subjective Patient evaluated while seated next to the bed this AM. She notes over all she is feeling well. She feels that the swelling in her R leg has actually improved somewhat today. Denies any fever, chills, SOB, chest pain, abdominal pain, NVD. Review of Systems Review of Systems: All systems reviewed & are unremarkable except as noted in Subjective Physical Exam Constitutional: WD/WN, vitals as above Eyes: PERRL, conjunctivae normal, anicteric sclerae ENMT: external ear and nose normal, oropharynx normal Neck: trachea midline, no thyromegaly Respiratory: normal respiratory effort, lungs clear to auscultation Cardiovascular: Rate/Rhythm: regular rate, regular rhythm and + bradycardic Heart Sounds: + murmur (2/6 IVELISSE) Extremities: + calf tenderness (Slight on the RLE, though improved) and + edema (Trace b/l ) Gastrointestinal (Abdomen): normal bowel sounds, soft, nontender, no hepatosplenomegaly Musculoskeletal: Head/Neck/Chest: normocephalic and head atraumatic Skin: no rashes, warm and dry Neurologic: moves all extremities and awake Psychiatric: A+Ox3, euthymic affect Results & Data Results & Data ([facility]) Vital Signs (Past 12 Hours) Vital Signs Temp Pulse Pulse Resp BP Pulse Ox 05/22/21 11:22 36.9 C 48 L 18 172/53 H 94 05/22/21 10:36 73 197/70 H 05/22/21 07:41 36.6 C 51 L 18 194/72 H 95 05/22/21 07:00 60 05/22/21 04:49 36.6 C 51 L 18 163/64 H 92 05/22/21 01:16 48 L Resident Activity Tracking Resident Involvement: Resident Care Provided Care Provided: Adult Hospital Medicine (1) Hypertension Hypertension type: unspecified Qualified Code(s): I10 - Essential (primary) hypertension
[2021-05-22] MEDS: hydrALAZINE TAB 50 MG TAB PO SCH ×2 (15:20→20:31)
--- NOTE | 2021-05-22 16:46 | Billing Data ---
Date of Service May 21, 2021 Coding Level of Care Code 04122 Subseq Hosp Care Lvl 2
--- NOTE | 2021-05-22 16:47 | Billing Data ---
Date of Service May 22, 2021 Coding Level of Care Code 00900 Subseq Hosp Care Lvl 2
[2021-05-22] MEDS: amLODIPine BESYLATE 5 MG TAB PO SCH (20:31)
[2021-05-22] MEDS: cloNIDine HCL 0.1 MG TAB PO SCH (21:44)
[2021-05-23] MEDS: MULTIVITAMIN TAB PO SCH (07:54)
[2021-05-23] MEDS: FUROSEMIDE 40 MG TAB PO SCH (07:54)
[2021-05-23] MEDS: ATORVASTATIN 40 MG TAB PO SCH (07:54)
[2021-05-23] MEDS: PANTOprazole 40 MG TAB PO SCH (07:54)
[2021-05-23] MEDS: hydrALAZINE TAB 50 MG TAB PO SCH ×2 (07:54→13:03)
[2021-05-23] MEDS: SODIUM CHLORIDE 1 GM TABLET PO SCH (07:54)
[2021-05-23] MEDS: AMIODARONE 200 MG TAB PO SCH (07:54)
[2021-05-23] MEDS: ASPIRIN 81 MG ECTAB PO SCH (07:54)
[2021-05-23] MEDS: SPIRONOLACTONE 25 MG TAB PO SCH (07:54)
[2021-05-23] MEDS: APIXABAN 5 MG TABLET PO SCH (07:55)
[2021-05-23] MEDS: carvediloL 3.125 MG TAB PO SCH (07:55)
[2021-05-23] MEDS: lisinopril 40 MG TAB PO SCH (07:55)
[2021-05-23] MEDS: INSULIN ASPART PER UNIT SC SCH ×2 (08:42→12:06)
[2021-05-23] MEDS: INSULIN GLARGINE SOLOSTAR 100 UNITS/ML 3 ML PEN SC SCH (08:43)
[2021-05-23 08:46] LABS: Calcium 9.5 mg/dl (8.5-10.1); Creatinine Clr Calc Pharmacy 52.8 ml/min; Est GFR (African American) 77.2 ml/min; Est GFR (Non-African American) 66.6 ml/min
[2021-05-23] MEDS: POLYETHYLENE (MIRALAX) 17 GM PACK PO SCH (08:46)
--- NOTE | 2021-05-23 09:29 | Cardiology Progress Note ---
Date of Service May 23, 2021 Assessment & Plan Admission and Anticipated Discharge Date Admission Date: May 16, 2021 Subjective She is feeling better. She denies any chest pain chest pressure chest h eaviness. She has any shortness of breath she still has some mild swelling in her right leg. He denies any lightheadedness or dizziness. She is concerned given the volume of medication that she is taking and if she will be able to keep it straight at home. She is anxious to go home. And feels well enough at this point. Results & Data ([facility]) Vital Signs (Past 12 Hours) Vital Signs Temp Pulse Pulse Resp BP BP Pulse Ox 05/23/21 07:20 36.8 C 57 L 20 174/68 H 94 05/23/21 07:00 54 L 05/23/21 04:22 36.6 C 55 L 18 154/54 H 94 05/23/21 00:03 59 L 05/22/21 22:52 36.9 C 60 18 159/57 H 90 She is awake alert oriented x3 she is in no acute distress HEENT: 2+ carotid upstrokes no evidence of carotid bruits Lungs: Decreased breath sounds in the bases bilaterally no rales rhonchi or wheezing Abdomen soft nontender senna positive bowel sounds Extremities no clubbing or cyanosis she has no edema of the left leg she continues to have mild to moderate edema of the right leg to the mid tibia Psychiatric: Her affect appeared appropriate Assessment & Plan (1) Hyponatremia: IMPRESSIONS: 1. Accelerated hypertension. 2. Non-ST elevation myocardial infarction in October 2018 with a drug-eluting stent placed to the ostial RCA. 3. Residual mid LAD disease in the range of 20-30%; mid circumflex disease in the range of 60-70%; mid to distal RCA disease in the range of 40-50%. 4. Hyperlipidemia. 5. Moderate aortic stenosis. 6. Preserved biventricular size and function 7. Diabetes mellitus type 2. 8. Negative CT scan for renal artery stenosis 11/2020. 9. 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 10. History of a CVA in 2017. 11. Hyponatremia worsened by hydrochlorothiazide and potentially spironolactone - renin/aldosterone ratio 20.6 so spironolactone maintained 12. Normal carotid ultrasound and no evidence of subclavian stenosis, January 09, 2021. 13. AFib She is maintaining sinus rhythm with low-dose amiodarone 200 mg daily. Her heart rate is relatively slow and she has not received any of her carvedilol dose even at 3.125 mg twice daily. Therefore I will discontinue it. She still remains hypertensive. I would add amlodipine 10 mg in the morning in addition to her 10 mg dose in the evening. We will just have to watch that it does not make the swelling in her right leg worse. Her serum sodium continues to improve. She is not excessively prerenal at this point. She should remain on her dose of spironolactone. If her blood pressure remains incredibly difficult to control we could have her see endocrinology to rule out hyperaldosteronism as a cause. In all likelihood given her age they would just recommend pushing her spironolactone dose. She should see Cyn in the office next week to make sure she is stable. And she should have a BMP and a magnesium level.
[2021-05-23] MEDS ORDERED: amLODIPine BESYLATE 5 MG TAB PO SCH (10:00)
--- NOTE | 2021-05-23 13:13 | Discharge Summary ---
Date of Service May 23, 2021 Admission HPI Per Admitting Provider Patient is a 80-year-old female with past medical history of NSTEMI, DM 2, paroxysmal atrial fibrillation, cellulitis, CAD, PAD, resistant hypertension, and hyperlipidemia being admitted to the hospital for hyponatremia. 2 weeks ago patient was discharged from the hospital and her stay was due to pneumonia, A. fib with RVR that was new onset, and anemia. After her discharge she was feeling well for about 3 days and then began to feel progressively more weak. She reports that she can ambulate on her own, however, over the past week she has been finding it more difficult to ambulate longer distances due to her diffuse weakness. She reports that during this timeframe she has also been fatigued and sleeping for hours at a time. In addition she is also been feeling nauseated which is letter to not eat. She reports this is both in part to the nausea as well as the fatigue as she "cannot eat while she is sleeping". She does state that she has been able to drink fluids but not as much as she typically does. Between her discharge 2 weeks ago and her return to the hospital today, she had gone to her primary care office for evaluation of a rash that developed on her right foot which was deemed to be cellulitis. She is currently being treated on Keflex 500 mg 4 times daily. She reports that it has been decreasing in size since beginning this regimen. Patient denies any headaches, head trauma, recent brain bleeds, seizure activity, vomiting, or diarrhea. No fevers or sick contacts that she is aware of. Patient reports no other complaints at this time. Admission Exam Per Admitting Provider Constitutional: WD/WN, vitals as above + obese and cooperative Eyes: + anicteric sclerae Neck: trachea midline, no thyromegaly Respiratory: normal respiratory effort, lungs clear to auscultation Cardiovascular: RRR, no murmur, no edema Rate/Rhythm: + bradycardic Vessels: no JVD Gastrointestinal (Abdomen): normal bowel sounds, soft, nontender, no hepatosplenomegaly Musculoskeletal: no cyanosis or clubbing, extremities motor strength 5/5 Skin: + turgor decreased Erythema of the righ t lateral malleoli are area spanning about 5 to 6 cm in diameter. It is hyperthermic to palpation. There is also tenderness to palpation of the rash. Neurologic: CN's II-XI intact bilaterally and moves all extremities Psychiatric: A+Ox3, euthymic affect Eye Contact: good eye contact Lymphatic: no cervical or axillary lymphadenopathy Principal Diagnosis Hyponatremia, Hypertensive Urgency Discharge Exam Constitutional WD/WN, vitals as above Eyes PERRL, conjunctivae normal, anicteric sclerae ENMT external ear and nose normal, oropharynx normal Neck trachea midline, no thyromegaly Respiratory normal respiratory effort, lungs clear to auscultation Cardiovascular Rate/Rhythm: regular rate, regular rhythm and + bradycardic Heart Sounds: + murmur (2/6 IVELISSE) Extremities: + edema (Trace b/l ); no calf tenderness Gastrointestinal (Abdomen) normal bowel sounds, soft, nontender, no hepatosplenomegaly Musculoskeletal Head/Neck/Chest: normocephalic and head atraumatic Skin no rashes, warm and dry Neurologic moves all extremities and awake Psychiatric A+Ox3, euthymic affect Discharge Data Allergies Allergy/AdvReac Type Severity Reaction Status Date / Time fenofibrate AdvReac Intermediate INCREASED Verified 05/16/21 19:06 URINATION metoprolol AdvReac Intermediate VOMIT,DIARR Verified 05/16/21 19:06 HEA verapamil AdvReac Intermediate INCREASED Verified 05/16/21 19:06 URINATION valsartan AdvReac Mild Weakness Verified 05/16/21 19:06 Consultations 05/16/21 18:07 ED Decision to Admit Stat 05/17/21 14:07 Consult Cardiology Routine 05/17/21 14:34 Consult Nephrology Routine Ordered Studies 05/21/21 11:15 US venous doppler LE RT Routine Hospital Course (1) Hyponatremia: 80 F with PMH of paroxysmal atrial fibrillation, DM2 with neuropathy, CAD with prior NSTEMI earlier this month, s/p cath and stent 2018, PAD fem-fem bypass in April, resistant HTN, anemia, hyperlipidemia, current right leg cellulitis managed outpatient with Keflex, admitted for severe hyponatremia. TO DO OUTPATIENT: 1) Repeat BMP and Magnesium in 1 week 2) Follow up with PCP in 1 week 3) Follow up with Cardiology in 1 week 4) Outpatient sleep study scheduling 5) Increased home blood pressure checks as patient is currently on 7 antihypertensive medications -Clonidine 0.1mg qHS -Lisinopril 40mg qAM -Amiodarone 200mg qAM -Spironolactone 50mg qAM -Hydralazine 100mg TID -Furosemide 40mg qAM -Amlodipine 10mg BID 6) Monitor R lower extremity for worsening edema/swelling with the increase of Amlodipine from 10mg qHS to BID Hypoosmolar Hyponatremia -Initial Na level 117 on admission, resolved at Na 136 on discharge -Nephrology recs -Fluid restriction <2L daily -- Patient discharged on 1800mL fluid restriction -Salt tabs 1g BID -Lasix 20mg IV BID while inpatient- since discontinued -Will have BMP and Magnesium check within 1 week after discharge Acute on Chronic HFpEF -TTE 05/18 with EF 65-70%, Grade III diastolic dysfunction, moderate concentric L ventricular hypertrophy, R ventricular systolic pressure 40-50mmHg -Diuresed well with ~10kg since admission -Resumed Lisinopril and Spironolactone -PO Lasix 40mg QD resumed per cardiology recs Hypertension -Difficulty to control despite multiple agents, further complicated by need for salt tablets -Cardiology consulted, assisting with med management -Resumed Lisinopril and Spironolactone -Hydralazine increased to 100mg TID PO -Continued Coreg 3.125mg BID while inpatient, discontinued on discharge -Continued Amiodarone 200mg QD -Continued Amlodipine 10mg QD -Continued Clonidine 0.1mg QD -Lasix 40mg PO QD added -If pressures continue to remain elevated, could consider increase in Spironolactone next -Patient with noted overnight pulse ox of 79%, will require sleep study outpatient to screen for CATRACHO as further cause of HTN RLE redness and swelling -With initial suspicions for cellulitis, treated appropriately with Keflex -Venous doppler negative for acute clot -Improved. Would continue to monitor outpatient as needed as patient was resumed on Lasix 40mg PO QD Atrial Fibrillation -Continued Amiodarone -Continued Coreg while inpatient - Discontinued on discharge -Continued Eliquis, Hgb stable -Patient's HR has been bradycardic in the 50's with Amiodarone use alone (2) Mitral regurgitation: (3) Bradycardia: (4) Acute on chronic heart failure with preserved ejection fraction (HFpEF): (5) Paroxysmal atrial fibrillation: (6) PAD (peripheral artery disease): (7) Hypertension: Total Time Total Time Spent Total Time Spent (In Minutes): see attending attestation Discharge Plan Discharge Items Patient Disposition: Home - Self-Care Reason For Visit: WEAKNESS Discharge Diagnosis: Hyponatremia, Hypertensive Urgency Activity: Per Instructions section Non-emergency contact: Primary Care Provider Call non-emergency contact if: you have any medication questions and your symptoms worsen Follow-up/Referrals: Prem Mcpherson DO [Physician] - (F/U Cyn Cartagen[facility] in 1 week ) Mal Torres MD [Primary Care Provider] - Diet: Regular Fluids: 1800ml (7 cups) Addtl Attending Provider Instructions: Ms. Gould, It was our pleasure caring for you at [facility] from 05/16- 05/23/21 for your low sodium levels in addition to your elevated blood pressures. It was felt that your low sodium levels may have been associated with limited oral intake. You were started on sodium tablets which have helped to increase your sodium level to a more normal and reasonable range. While in the hospital you blood pressures were also significantly high, and adjustments have been made to help control your blood pressures at home. We would recommend that you follow up with Cyn Cartagena next week to continue outpatient monitoring of your blood pressures and your electrolytes. Please see below for a summary of your medicines in addition to further instructions. -Please follow up with your PCP in 1-2 weeks to discuss this recent hospital stay -Please follow up with Cyn Cartagena in 1 week for follow up of your high blood pressure. -Please at your 1 week follow up with Cyn, ensure that you have a Basic Metabolic Profile and Magnesium level drawn Medication Changes: -Clonidine 0.1mg nightly -Lisinopril 40mg every morning -Amiodarone 200mg every morning -Spironolactone 50mg every morning -Hydralazine 100mg three times a day -Furosemide 40mg every morning -Amlodipine 10mg twice a day -Sodium Chloride tablet 1 gram twice a day -Your Carvedilol (Coreg) was STOPPED, do not continue this medication. -Otherwise, continue your home medications as outlined below. Pending Studies at Discharge: No Stand-Alone Forms: [facility], Smoking Cessation Medications and DC Order Prescriptions: New amiodarone 200 mg Tablet 200 mg PO DAILY 30 Days Qty: 30 RF: 0 amlodipine [Norvasc] 5 mg Tablet 10 mg PO BID 30 Days Qty: 120 RF: 0 hydralazine 50 mg Tablet 100 mg PO TID 30 Days Qty: 180 RF: 0 spironolactone 25 mg Tablet 50 mg PO QAM 30 Days Qty: 60 RF: 0 furosemide 40 mg Tablet 40 mg PO QAM 30 Days Qty: 30 RF: 0 sodium chloride 1 gram Tablet 1 g PO BID 30 Days Qty: 60 RF: 0 Continued clonidine HCl 0.1 mg tablet 0.1 mg PO HS RF: 0 aspirin 81 mg Tablet,Delayed Release (Dr/Ec) 81 mg PO HS RF: 0 metformin 500 mg tablet extended release 24 hr 1,000 mg PO BIDM RF: 0 potassium chloride 10 mEq Tablet Extended Release 10 meq PO DAILY PRN (Reason: Cramps) RF: 0 lisinopril [Zestril] 40 mg tablet 40 mg PO QAM RF: 0 coenzyme Q10 [CoQ-10] 100 mg Capsule 100 mg PO QAM RF: 0 Almira 3-6-9 1,200 mg Capsule 1 cap PO QDD RF: 0 jrefcexth-YEJ-OG-acetaminophen 7.5-60-30-1,000 mg/30 mL Liquid 30 ml PO DIRECTED PRN (Reason: Cold Symptoms) RF: 0 apixaban 5 mg tablet 5 mg PO BID Qty: 60 RF: 0 ferrous sulfate 325 mg (65 mg iron) tablet 325 mg PO BID Qty: 60 RF: 0 pantoprazole 40 mg Tablet,Delayed Release (Dr/Ec) 40 mg PO DAILY Qty: 30 RF: 0 glimepiride 4 mg tablet 4 mg PO BID Qty: 60 RF: 0 multivitamin Tablet 1 tab PO QAM RF: 0 atorvastatin 40 mg Tablet 40 mg PO QAM RF: 0 Discontinued carvedilol 25 mg tablet 25 mg PO BID RF: 0 amiodarone 200 mg Tablet 200 mg PO BIDM Qty: 60 RF: 0 amlodipine 10 mg Tablet 10 mg PO QPM Qty: 30 RF: 0 hydralazine 25 mg Tablet 25 mg PO Q6HWA 30 Days Qty: 120 RF: 0 spironolactone 25 mg Tablet 12.5 mg PO QAM RF: 0 cephalexin 500 mg capsule 500 mg PO QID RF: 0 Discharge Orders: Discharge Order (Routine); Ordered 05/23/21 Ordered By: Gurwinder Schaefer/Other Patient Handouts: Managing Type 2 Diabetes, Special Foot Care for Diabetes Admission Data Admit Date/Time: 05/16/21 20:09 Attending Provider: Raymond Nichole Admit Provider: Pierre Isaacs Primary Care Provider: Mal Torres Other Providers: Barry De Luna ; Prem Mcpherson ; Daron Morin Other Interventions: Discharge Summary Assessment (RN) Last Done: 05/23/21 13:43 Supervising Physician Co-Signing Physician Notes Adri is a 80-year-old female with history of NSTEMI, DM 2, A. fib, CAD, PAD, resistant hypertension, and hyperlipidemia who was admitted for hyponatremia. She was followed by both cardiology and nephrology, and improved with salt tablets but remained with persistent difficulty control hypertension requiring multiple agent adjustments. Case was discussed and reviewed with Dr. Wheeler, and agree with assessment and plan as above. Of note was emphasized the patient that she has had a variety of hypertensive medication changes, and that patients often experience a improvement in blood pressure outside of the hospital. These changes were warranted as she remained greater than 180 systolic during admission, however the signs of hypotension and caution for adjustments as needed were discussed at length prior to discharge. At time of discharge she was resting comfortably in a chair, without headache/lightheadedness/dizziness, with regular rate (intermittent bradycardia experienced regulation), and was ambulating easily and independently. Breathing was unlabored and clear. Agree with close follow-up to primary care and cardiology for further checks and adjustments. Agree with repeat labs as above. Agree with outpatient sleep study as above. Total time spent day of discharge including direct patient care, coordination of care, documentation, review labs and images, discussion of case with the medical team and resident 35 minutes. Resident Activity Tracking Resident Involvement: Resident Care Provided Care Provided: Adult Hospital Medicine
--- NOTE | 2021-05-23 18:05 | Billing Data ---
Date of Service May 23, 2021 Coding Level of Care Code D/C DAY MANAGEMENT >30 MINS
== END 2021-05-23 14:32 | disposition home or self-care (01) | DRG 640 ==
LOC: ED 16:27 → SUATTDRO 20:09 → EDINP 20:09 → 2N 05-17 20:00

== ENCOUNTER 2021-10-30 18:37 | Inpatient (IN) ==
[2021-10-30 19:38] LABS: Basophils # (auto) 0.01 K/uL (0-0.2); Basophils % (auto) 0.1 %; Hematocrit (blood only) 22.9 % (37-47); Hemoglobin 7.3 g/dL (12.0-16.0); Immature Granulocytes # (auto) 0.06 K/uL (0.00-0.02); Immature Granulocytes % (auto) 0.4 %; Lymphocytes # (auto) 0.83 K/uL (1.2-3.4); Lymphocytes % (auto) 6.1 %; Mean Corpuscular Hemoglobin 23.9 pg (25-34); Mean Corpuscular Hgb Conc 31.9 g/dL (32-36); Mean Corpuscular Volume 75.1 fL (80-100); Mean Platelet Volume 11.5 fL (7.4-10.4); Monocytes # (auto) 0.63 K/uL (0.11-0.59); Monocytes % (auto) 4.6 %; Neutrophils # (auto) 12.04 K/uL (1.4-6.5); Neutrophils % (auto) 88.8 %; Platelet Count 432 K/uL (130-400); RDW Coefficient of Variation 16.9 % (11.5-14.5); RDW Standard Deviation 46.3 fL (36.4-46.3); Red Blood Count 3.05 M/uL (4.2-5.4); White Blood Count 13.57 K/uL (4.8-10.8)
[2021-10-30 19:59] LABS: Echinocytes 2+; Ovalocytes 1+
--- NOTE | 2021-10-30 20:03 | XRay Report ---
XR chest 1V portable CLINICAL HISTORY: weakness COMPARISON STUDY: Chest CT April 26, 2021. Radiograph July 01, 2021. FINDINGS: No pneumothorax or pleural effusion is noted. There is no evidence for pulmonary edema. The re is no consolidation to suggest pneumonia. Cardiomediastinal silhouette is stable. IMPRESSION: No acute cardiopulmonary findings. ACT 112: Negative or not required by law. Electronically signed by: Levy Farah M.D. 10/30/2021 8:01 PM
[2021-10-30 20:15] LABS: Alanine Aminotransferase 156 U/L (7-52); Albumin Globulin Ratio 1.6 (0.9-2); Albumin Level 4.1 gm/dl (3.4-5.0); Alkaline Phosphatase 109 U/L (34-104); Anion Gap 13 (3-11); Aspartate Aminotransferase 106 U/L (13-39); BUN Creatinine Ratio 22.1 (10-20); Bilirubin,Total 0.3 mg/dl (0.2-1.0); Blood Urea Nitrogen 64 mg/dl (6-23); Calcium 9.2 mg/dl (8.5-10.1); Carbon Dioxide 13 mmol/L (21-32); Chloride 94 mmol/L (98-107); Est GFR (African American) 17.1 ml/min; Est GFR (Non-African American) 14.8 ml/min; Globulin 2.6 gm/dl (2.5-4.0); Glucose 193 mg/dl (70-99(Fasting)); Sodium 120 mmol/L (136-145); Total Protein 6.7 gm/dl (6.0-8.3); Troponin I High Sensitivity 19.4 pg/ml (0-14)
[2021-10-30] MEDS ORDERED: STAT IV STA ×2 (20:24→22:31)
[2021-10-30] MEDS ORDERED: DEXTROSE 50% 50 ML SYRINGE IV ONE (20:24)
[2021-10-30] MEDS ORDERED: SODIUM CHLORIDE 0.9% 1000ML 1,000 ML IV ONE ×2 (20:24→21:02)
[2021-10-30] MEDS ORDERED: SODIUM BICARB 8.4% INJ 50 MEQ/50 ML SYR IV STA (20:24)
[2021-10-30] MEDS ORDERED: CALCIUM GLUCONATE 10% 1,000 MG in DEXTROSE 5% 50 ML IV STA (20:24)
[2021-10-30] MEDS ORDERED: NovoLIN-R INSULIN PER UNIT CHARGE IV STA (20:24)
[2021-10-30] MEDS ORDERED: CALCIUM GLUCONATE 1,000 MG/60 ML BAG IV SCH (20:30)
--- NOTE | 2021-10-30 20:30 | Emergency Department Note ---
Impression & Plan Acute hyperkalemia, Abnormal EKG, LEV (acute kidney injury), Acute GI bleeding, Dizziness, Acute hyponatremia ED Provider Note NAME: YIN BRO AGE: 81 SEX: F : 1940 ARRIVES VIA: Walk-In INFORMANT: Patient ED PROVIDER(S): Krishna Dawkins DO CHIEF COMPLAINT: Dizzy HPI: Patient is a 81-year-old female who presents ER for feeling dizzy. She notes that symptoms have been going on for just under a week. Past 24 hours she has had nausea vomiting diarrhea. The vomiting has abated. She admits to persistent diarrhea. Denies any headache or change in vision. No chest pain or shortness of breath. With diarrhea she has been having some black stools recently but notes that she does take iron. Denies any dysuria urgency or frequency. Does have some crampy abdominal pain. No other exacerbating or remitting factors. ROS: See above HPI for pertinent positives & negatives. A total of 10 systems reviewed and were otherwise negative. PAST MEDICAL HISTORY:See Below PAST SURGICAL HISTORY:See Below FAMILY HISTORY:See Below SOCIAL HISTORY:See Below HOME MEDICATIONS:See Below ALLERGIES:See Below VITALS:See Below PHYSICAL EXAMINATION: GENERAL: Sitting up in bed, alert, chronically ill-appearing, disheveled EYE EXAM: normal conjunctiva. OROPHARYNX: mucous membranes are dry NECK: supple, no nuchal rigidity, no adenopathy, non-tender LUNGS: Clear to auscultation. Normal chest wall mechanics HEART: no murmurs, S1 normal and S2 normal ABDOMEN: abdomen soft, non-tender, normo-active bowel sounds, no masses, no rebound or guarding. UPPER EXTREMITIES: upper extremities are grossly normal. LOWER EXTREMITIES: No pitting edema. NEURO EXAM: Normal sensorium, cranial nerves II-XII grossly intact, normal speech, no gross weakness of arms, no gross weakness of legs. No drift. Finger to nose intact. Gross sensation intact. MEDICAL DECISION MAKING: Patient is a 81-year-old female who presents the ER with above-stated complaint. IV was established blood work was obtained. Labs show leukocytosis of 13,000. Hemoglobin was down to 7.3 from baseline of 9. BMP with significant hyponatremia at 120 and a potassium of 7 with a CO2 which was low and a creatinine of 2.8. Mild transaminitis. Troponin was slightly elevated. TSH was slightly elevated as well. Patient was typed and crossed and given/ordered 2 units of PRBCs due to the anemia and heme positive stools on rectal exam with taking her NOAC. Upon result of her potassium she was brought back to the room due to a protracted stay in triage. EKG showed a junctional rhythm. She was given 2 g of calcium gluconate, 3 A of bicarb, insulin and dextrose as well as 2 L of IV fluid. Castañeda was ordered. Repeat BMP showed a potassium of 5.4. Discussed with the hospitalist as well as nephrology and they agree Koebel to admission and further treatment. Following the treatment for the hyperkalemia monitor shows a sinus rhythm in the 70s. Hospitalist were comfortable keeping the patient here. Triage Nursing notes reviewed. Limited review of prior medical records performed Vital Signs: reviewed and remarkable for bradycardia Differential diagnosis: Infection, dehydration, metabolic abnormality, hypo/hyperglycemia, electrolyte disturbance, anemia, hypoxia, cardiac sources, intracerebral event, toxicologic, neurologic, as well as other pathologies. ER treatment provided: See below Diagnostics interpreted by me: ECG: Junctional rhythm rate of 42 Normal axis Septal Q waves Prolonged QT Cardiac Monitoring: An order was placed for continuous cardiac monitoring. The monitor shows a rate of 70 with sinus rhythm. Laboratory studies: As stated above and show below. Imaging studies: CT abdomen pelvis showed no acute pathology with exception of small pleural effusion Consultation(s): Discussed with Dr. Willett who agreed with medical management and bicarb drip if needed. Discussed with Dr. Mary Hernandez in regards to presentation and findings. Procedures: none Critical Care: I have personally spent 80 minutes of critical care time in the direct management of this patient. This includes bedside care, interpretation of diagnostic studies, and testing, discussion with consultants, patient, and family members, and other required patient management activities. This 80 minutes is in excess of all separately billable procedures. Past Med/Surg History Medical History CAD (coronary artery disease) CVA (cerebral vascular accident) (~2019) no deficits Hyperlipemia Hypertension Myocardial infarct, old follows with Dr. Mcpherson PAD (peripheral artery disease) Pneumonia hx S/P angiogram of extremity (02/02/21) Type 2 diabetes mellitus with diabetic neuropathy, unspecified NIDDM Surgical History H/O removal of cyst right abdominal area History of bunionectomy of right great toe History of cardiac cath (~2018) History of heart artery stent (~2019) x1. at [facility] F[place]. Status post ORIF of fracture of ankle Family History Other No family history of adverse response to anesthesia Social History Smoking Status: Never smoker Tobacco Type: Cigarettes Number of Years Since Quit: 40; Second Hand Exposure: No; Hx Alcohol Use: No Hx Substance Use: No Preferred Language: [place] Citizen Communication Ability: Effective Design Assistant Required: No Beliefs That Will Affect Care: None marital status: / Current Living Situation: Alone Current Living Situation Comment: [employer] style home current occupational status: retired How many Children do You have: 1 Feels Safe at Home: Yes Assistive Devices: Cane and Walker Allergies Allergies Allergy/AdvReac Type Severity Reaction Status Date / Time fenofibrate AdvReac Intermediate INCREASED Verified 10/30/21 20:49 URINATION metoprolol AdvReac Intermediate VOMIT,DIARR Verified 10/30/21 20:49 HEA verapamil AdvReac Intermediate INCREASED Verified 10/30/21 20:49 URINATION valsartan AdvReac Mild Weakness Verified 10/30/21 20:49 Home Meds Home Medications Medication Instructions Recorded Confirmed aspirin 81 mg tablet,delayed 81 mg PO HS 03/04/20 10/30/21 release clonidine HCl 0.1 mg tablet 0.2 mg PO HS 03/04/20 10/30/21 metformin 500 mg tablet,extended 1,000 mg PO BIDM 03/04/20 10/30/21 release 24 hr coenzyme Q10 100 mg capsule 100 mg PO QAM 12/01/20 10/30/21 (CoQ-10) fish, borage, flaxseed oils-omega 1 cap PO QDD 12/01/20 10/30/21 3,6,9 comb no.1 1,200 mg capsule ([place] 3-6-9) lisinopril 40 mg tablet (Zestril) 40 mg PO QAM 12/01/20 10/30/21 potassium chloride 10 mEq 10 meq PO DAILY PRN 12/01/20 10/30/21 tablet,extended release atorvastatin 40 mg tablet 40 mg PO QAM 02/26/21 10/30/21 multivitamin 1 tab PO QAM 02/26/21 10/30/21 amiodarone 200 mg tablet 200 mg PO QAM 07/01/21 10/30/21 amlodipine 5 mg tablet 10 mg PO BID 07/01/21 10/30/21 apixaban 5 mg tablet (Eliquis) 5 mg PO BID 07/01/21 10/30/21 furosemide 20 mg tablet 20 mg PO QAM 07/01/21 10/30/21 hydralazine 100 mg tablet 100 mg PO TID 07/01/21 10/30/21 magnesium oxide 400 mg (241.3 mg 400 mg PO QAM 07/01/21 10/30/21 magnesium) tablet pantoprazole 40 mg tablet,delayed 40 mg PO DAILYBB 07/01/21 10/30/21 release spironolactone 25 mg tablet 50 mg PO QAM 07/01/21 10/30/21 Previous Rx's Medication Instructions Recorded ferrous sulfate 325 mg (65 mg 325 mg PO BID #60 tab 05/02/21 iron) tablet glimepiride 4 mg tablet 4 mg PO BID #60 tab 05/02/21 Results & Data (ED) Vital Signs Vital Signs - 24 hr 10/30/21 18:49 10/30/21 20:24 10/30/21 20:27 Temperature 36.9 C Temperature Source Temporal Artery Scan Pulse Rate 52 L 41 L 42 L Respiratory Rate 16 20 17 Blood Pressure 102/37 L 142/43 H Blood Pressure Mean 58 76 Pulse Oximetry 97 98 97 Oxygen Delivery Method Room Air Sepsis Recent Fever Within 48 Hours No Sepsis New/Unexplained Change in Mental Status N/A Sepsis Action Taken by Nursing No Action Required 10/30/21 20:30 10/30/21 21:00 Temperature Temperature Source Pulse Rate 42 L 45 L Respiratory Rate 20 17 Blood Pressure 137/50 L 147/53 H Blood Pressure Mean 79 84 Pulse Oximetry 97 Oxygen Delivery Method Sepsis Recent Fever Within 48 Hours Sepsis New/Unexplained Change in Mental Status Sepsis Action Taken by Nursing Laboratory Data Result diagrams: 10/30/21 19:29 10/30/21 19:29 Lab Results 10/30/21 10/30/21 10/30/21 Range/Units 19:29 19:29 19:29 WBC 13.57 H (4.8-10.8) K/uL RBC 3.05 L (4.2-5.4) M/uL Hgb 7.3 L (12.0-16.0) g/dL Hct 22.9 L (37-47) % MCV 75.1 L (80-100) fL MCH 23.9 L (25-34) pg MCHC 31.9 L (32-36) g/dL RDW Std Deviation 46.3 (36.4-46.3) fL RDW Coeff of Alysa 16.9 H (11.5-14.5) % Plt Count 432 H (130-400) K/uL MPV 11.5 H (7.4-10.4) fL Immature Gran % (Auto) 0.4 % Neut % (Auto) 88.8 % Lymph % (Auto) 6.1 % Bullock % (Auto) 4.6 % Eos % (Auto) 0.0 % Baso % (Auto) 0.1 % Neut # (Auto) 12.04 H (1.4-6.5) K/uL Lymph # (Auto) 0.83 L (1.2-3.4) K/uL Bullock # (Auto) 0.63 H (0.11-0.59) K/uL Eos # (Auto) 0.00 (0-0.5) K/uL Baso # (Auto) 0.01 (0-0.2) K/uL Immature Gran # (Auto) 0.06 H (0.00-0.02) K/uL Ovalocytes 1+ Echinocytes 2+ Sodium 120 L (136-145) mmol/L Potassium 7.0 H* (3.5-5.1) mmol/L Chloride 94 L (98-107) mmol/L Carbon Dioxide 13 L (21-32) mmol/L Anion Gap 13 H (3-11) BUN 64 H (6-23) mg/dl Creatinine 2.90 H (0.6-1.2) mg/dl Est Cr Clr Drug Dosing Not Reportable Est GFR ( Amer) 17.1 ml/min Est GFR (Non-Af Amer) 14.8 ml/min BUN/Creatinine Ratio 22.1 H (10-20) Glucose 193 H (70-99(Fasting)) mg/dl Calcium 9.2 (8.5-10.1) mg/dl Total Bilirubin 0.3 (0.2-1.0) mg/dl AST 106 H (13-39) U/L ALT 156 H (7-52) U/L Alkaline Phosphatase 109 H (34-104) U/L Troponin I High Sens Cancelled 19.4 H Total Protein 6.7 (6.0-8.3) gm/dl Albumin 4.1 (3.4-5.0) gm/dl Globulin 2.6 (2.5-4.0) gm/dl Albumin/Globulin Ratio 1.6 (0.9-2) TSH (0.300-4.500) uIu/ml SARS-CoV-2, RNA, NAAT (NEGATIVE) Blood Type Antibody Screen Crossmatch 10/30/21 10/30/21 10/30/21 Range/Units 19:29 20:57 Unknown WBC (4.8-10.8) K/uL RBC (4.2-5.4) M/uL Hgb (12.0-16.0) g/dL Hct (37-47) % MCV (80-100) fL MCH (25-34) pg MCHC (32-36) g/dL RDW Std Deviation (36.4-46.3) fL RDW Coeff of Alysa (11.5-14.5) % Plt Count (130-400) K/uL MPV (7.4-10.4) fL Immature Gran % (Auto) % Neut % (Auto) % Lymph % (Auto) % Bullock % (Auto) % Eos % (Auto) % Baso % (Auto) % Neut # (Auto) (1.4-6.5) K/uL Lymph # (Auto) (1.2-3.4) K/uL Bullock # (Auto) (0.11-0.59) K/uL Eos # (Auto) (0-0.5) K/uL Baso # (Auto) (0-0.2) K/uL Immature Gran # (Auto) (0.00-0.02) K/uL Ovalocytes Echinocytes Sodium (136-145) mmol/L Potassium (3.5-5.1) mmol/L Chloride (98-107) mmol/L Carbon Dioxide (21-32) mmol/L Anion Gap (3-11) BUN (6-23) mg/dl Creatinine (0.6-1.2) mg/dl Est Cr Clr Drug Dosing Est GFR ( Amer) ml/min Est GFR (Non-Af Amer) ml/min BUN/Creatinine Ratio (10-20) Glucose (70-99(Fasting)) mg/dl Calcium (8.5-10.1) mg/dl Total Bilirubin (0.2-1.0) mg/dl AST (13-39) U/L ALT (7-52) U/L Alkaline Phosphatase (34-104) U/L Troponin I High Sens Total Protein (6.0-8.3) gm/dl Albumin (3.4-5.0) gm/dl Globulin (2.5-4.0) gm/dl Albumin/Globulin Ratio (0.9-2) TSH 5.324 H (0.300-4.500) uIu/ml SARS-CoV-2, RNA, NAAT NEGATIVE (NEGATIVE) Blood Type B Positive Antibody Screen NEGATIVE Crossmatch See Detail Administered Medications Discontinued Medications Dextrose (Dextrose 50% 50 Ml Syringe) 50 ml IV NOW ONE Stop: 10/30/21 20:25 Last Admin: 10/30/21 20:50 Dose: 50 ml Documented by: [id number] Sodium Chloride (Nss 1000ml) 1,000 mls @ 999 mls/hr IV .Q1H1M ONE Stop: 10/30/21 21:24 Last Infusion: 10/30/21 21:47 Dose: 0 mls/hr Documented by: [id number] Admin: 10/30/21 20:42 Dose: 999 mls/hr Documented by: [id number] Calcium Gluconate 1,000 mg/ (Dextrose) 60 mls @ 240 mls/hr IV ONCE STA; Protocol Stop: 10/30/21 20:38 Last Infusion: 10/30/21 21:11 Dose: 0 mls/hr Documented by: [id number] Admin: 10/30/21 20:48 Dose: 240 mls/hr Documented by: [id number] Calcium Gluconate 1,000 mg/ (Dextrose) 60 mls @ 240 mls/hr IV NOW ONE Stop: 10/30/21 21:29 Last Infusion: 10/30/21 21:47 Dose: 0 mls/hr Documented by: [id number] Admin: 10/30/21 21:14 Dose: 240 mls/hr Documented by: [id number] Insulin Human Regular (Novolin-R Insulin Per Unit Charge) 10 units IV NOW STA Stop: 10/30/21 20:25 Last Admin: 10/30/21 20:51 Dose: 10 units Documented by: [id number] Cosigned by: [id number] Sodium Bicarbonate (Sodium Bicarb 8.4% Inj 50 Meq/50 Ml Syr) 150 meq IV NOW STA Stop: 10/30/21 20:25 Last Admin: 10/30/21 21:05 Dose: 150 meq Documented by: [id number] Imaging Data Radiologist's Impression: Chest X-Ray 10/30/21 18:51 XR chest 1V portable CLINICAL HISTORY: weakness COMPARISON STUDY: Chest CT April 26, 2021. Radiograph July 01, 2021. FINDINGS: No pneumothorax or pleural effusion is noted. There is no evidence for pulmonary edema. There is no consolidation to suggest pneumonia. Cardiomediastin al silhouette is stable. IMPRESSION: No acute cardiopulmonary findings. ACT 112: Negative or not required by law. Electronically signed by: Levy Farah M.D. 10/30/2021 8:01 PM Discharge Plan Visit Data Chief Complaint: Dizziness Stated Complaint: LOW BLOOD PRESSURE, BLURRED VISON, DIZZINESS ED Provider: Krishna Dawkins Discharge Problem: Acute hyperkalemia, Abnormal EKG, LEV (acute kidney injury), Acute GI bleeding, Dizziness, Acute hyponatremia Forms Stand Alone Forms: My [facility] [employer] Prescriptions Prescriptions: No Action clonidine HCl 0.1 mg tablet 0.2 mg PO HS RF: 0 aspirin 81 mg Tablet,Delayed Release (Dr/Ec) 81 mg PO HS RF: 0 metformin 500 mg tablet extended release 24 hr 1,000 mg PO BIDM RF: 0 potassium chloride 10 mEq Tablet Extended Release 10 meq PO DAILY PRN (Reason: Cramps) RF: 0 lisinopril [Zestril] 40 mg tablet 40 mg PO QAM RF: 0 coenzyme Q10 [CoQ-10] 100 mg Capsule 100 mg PO QAM RF: 0 [place] 3-6-9 1,200 mg Capsule 1 cap PO QDD RF: 0 ferrous sulfate 325 mg (65 mg iron) tablet 325 mg PO BID Qty: 60 RF: 0 glimepiride 4 mg tablet 4 mg PO BID Qty: 60 RF: 0 amiodarone 200 mg tablet 200 mg PO QAM RF: 0 amlodipine 5 mg tablet 10 mg PO BID RF: 0 spironolactone 25 mg tablet 50 mg PO QAM RF: 0 magnesium oxide 400 mg (241.3 mg magnesium) tablet 400 mg PO QAM RF: 0 hydralazine 100 mg tablet 100 mg PO TID RF: 0 furosemide 20 mg tablet 20 mg PO QAM RF: 0 Eliquis 5 mg tablet 5 mg PO BID RF: 0 pantoprazole 40 mg tablet,delayed release (DR/EC) 40 mg PO DAILYBB RF: 0 multivitamin Tablet 1 tab PO QAM RF: 0 atorvastatin 40 mg Tablet 40 mg PO QAM RF: 0 Referrals Referrals: Mal Torres MD [Hospitalist] -
[2021-10-30] MEDS ORDERED: SODIUM CHLORIDE 0.9% 250 ML IV PRN ×2 (20:48→20:55)
[2021-10-30] MEDS ORDERED: CALCIUM GLUCONATE 10% 1,000 MG in DEXTROSE 5% 50 ML IV ONE (21:15)
[2021-10-30 22:26] LABS: Base Excess VBG -6.4 mEq/L; Oxygen Saturation VBG 86.5 %; pH VBG 7.38 (7.36-7.41)
[2021-10-30] MEDS ORDERED: SODIUM BICARBONATE 8.4% 150 MEQ in DEXTROSE 5% 1,000 ML IV SCH (22:36)
[2021-10-30 22:37] LABS: Anion Gap 13 (3-11); BUN Creatinine Ratio 23.1 (10-20); Blood Urea Nitrogen 63 mg/dl (6-23); Calcium 9.6 mg/dl (8.5-10.1); Carbon Dioxide 18 mmol/L (21-32); Chloride 94 mmol/L (98-107); Est GFR (African American) 18.4 ml/min; Est GFR (Non-African American) 15.9 ml/min; Glucose 179 mg/dl (70-99(Fasting)); Potassium 5.5 mmol/L (3.5-5.1); Sodium 125 mmol/L (136-145)
--- NOTE | 2021-10-30 23:29 | History & Physical Report ---
Date of Service October 30, 2021 Assessment & Plan (1) LEV (acute kidney injury): Plan: Multifactorial - Secondary to n/v and diarrhea with decrease in oral intake as well as medication effects - Replete intravascular - BUN likely elevated secondary to UGI bleed - Follow q4 hours - not acidotic, HCO3 improving, making urine - Potassium stabilized and lowering appropriately - Spears catheter (2) Hyperkalemia: Plan: Acute - secondary to hypovolemia in the setting of LEV. Patient on Spironolactone as well as PO K 10mEq daily outpatient - Volume repleted with 2.5L of Saline in the EMD- effectively treated with HCO3 amp, D50, Insulin, CA gluconate - Repeat 5.5 - BMP q4 hours - Isotonic HC03 infusion at 115 ml/hour- adjust rate as needed - Diurese/Kaliureses as needed with blood and volume as above (3) Anemia: Plan: Heme positive- nausea, vomiting with epigastric pain - GI bleed suspected with HGB drop although denies change in stools or vomiting blood - Unspecified source but likely UGI with elevation in BUN, N/V and does endorse burning pain in her stomach over past month with taking her pills - PT/INR pending - Protonix BID IV - NPO tonight - Hold Eliquis - GI consultation when stable - Maintain 2 IV at least one 18g or larger at all times (4) Metabolic acidosis: Plan: Compensated metabolic acidosis - Lactate pending - Secondary likley to anemia, hypovolemia, and LEV as well as likely metformin associated - resuscitation as above - DC HCo3 infusion if HCo3 remains >18 and and Potassium remains ~5 (5) Gastroenteritis: Plan: supportive care as above Viral vs. GI bleed (6) Elevated liver enzymes: Plan: Unsure of etiology at this time, with elevated WBC 13 - PCT pending - CT abdomen and pelvis without acute cause interpreted - consider RUQUS in AM with trending of her WBC - Hold Amiodarone (7) Acute on chronic heart failure with preserved ejection fraction (HFpEF): Plan: As above (8) Paroxysmal atrial fibrillation: Plan: Rate and Rythm controlled - hold Amiodarone for now (9) PAD (peripheral artery disease): Plan: With fem-fem bypass - will have to hold her ASA at this time and Eliquis - restart ASA when appropriate at least - follow (10) CAD (coronary artery disease): Plan: As above (11) Type 2 diabetes mellitus with diabetic neuropathy, unspecified: Plan: Hold metformin - fatou metofrmin associated acidosis - BG AC/HS insulin protocol in ICU- (12) Hypertension: Plan: Will hold FLAQUITO/ARB, Clonidine, Hydralazine - defer to IV agents as needed in ICU - hold until hemodynamics proven stable (13) Hyperlipemia: Plan: Continue statin (14) Hyponatremia: Plan: Chronic this is around her baseline - follow daily - asymptomatic - previously intolerant to salt tabs - Hold spironalactone (15) Elevated troponin: Plan: HScTNI 19 in EMD - Likley type II mismatch with anemia and hypovolemia and acidosis as well as LEV - Recheck now and in AM History of Present Illness Primary Care Provider: Peggy Leavitt, DO 81 YOF with medical history of: Afib, NSTEMI(2019), CAD, HLD, Aortic Stenosis, DM II, PAD(fem-fem bypass), CVA, hyponatremia, bradycardia, HTN. Patient comes to the EMD today for complaints of week of fatigue, nausea, vomiting, diarrhea for 2 days. Patient states that she takes her pills and just gets nauseated. She reports having 2-3 loose BMs over the last day that are brown in color and without blood. She denies any blood or black/dark brown in her emesis. In the EMD the patient had routine labs performed- which resulted in hyperkalemia of 7.3 and HCO3 of 13, With bradycardia/junctional rythm on her ECG. WELDING ROD COATER was increased to 2.9, BUN 64, and HGB of 6.3. She was reported heme positive by EMD- was typed and crossed. She was given CA gluconate, D50, Insulin 10units IV, 2.5 Liters of Normal Saline. She had non-contrast CT scan of her abdomen and pelvis which was interpreted as normal gallbladder/pancreas and consistent with a gastroenteritis. Hospitalist service was consulted for admission. Requested VBG, repeat of BMP. This resulted with PH 7.38, HCO3 18, and Potassium improvment to 5.5, slight decrease in her WELDING ROD COATER and remaining elevation in BUN. Patient will be admitted to the ICU with continuation of BICARB 8.4% 150meq in 1L D5 to continue with potassium correction. She remains making urine, so can kaliuresis if continued need to lower. Spears catheter will be placed for close monitoring of her UO. Will place on Protonix 40mg IV BID. Remain NPO COVID test on admission is: NEGATIVE Allergies Allergy/AdvReac Type Severity Reaction Status Date / Time fenofibrate AdvReac Intermediate INCREASED Verified 10/30/21 20:49 URINATION metoprolol AdvReac Intermediate VOMIT,DIARR Verified 10/30/21 20:49 HEA verapamil AdvReac Intermediate INCREASED Verified 10/30/21 20:49 URINATION valsartan AdvReac Mild Weakness Verified 10/30/21 20:49 Home Medications Medication Instructions Recorded Confirmed Type aspirin 81 mg tablet,delayed 81 mg PO HS 03/04/20 10/30/21 History release clonidine HCl 0.1 mg tablet 0.2 mg PO HS 03/04/20 10/30/21 History metformin 500 mg tablet,extended 1,000 mg PO BIDM 03/04/20 10/30/21 History release 24 hr coenzyme Q10 100 mg capsule 100 mg PO QAM 12/01/20 10/30/21 History (CoQ-10) fish, borage, flaxseed oils-omega 1 cap PO QDD 12/01/20 10/30/21 History 3,6,9 comb no.1 1,200 mg capsule ([place] 3-6-9) lisinopril 40 mg tablet (Zestril) 40 mg PO QAM 12/01/20 10/30/21 History potassium chloride 10 mEq 10 meq PO DAILY PRN 12/01/20 10/30/21 History tablet,extended release atorvastatin 40 mg tablet 40 mg PO QAM 02/26/21 10/30/21 History multivitamin 1 tab PO QAM 02/26/21 10/30/21 History ferrous sulfate 325 mg (65 mg 325 mg PO BID #60 tab 05/02/21 10/30/21 Rx iron) tablet glimepiride 4 mg tablet 4 mg PO BID #60 tab 05/02/21 10/30/21 Rx amiodarone 200 mg tablet 200 mg PO QAM 07/01/21 10/30/21 History amlodipine 5 mg tablet 10 mg PO BID 07/01/21 10/30/21 History apixaban 5 mg tablet (Eliquis) 5 mg PO BID 07/01/21 10/30/21 History furosemide 20 mg tablet 20 mg PO QAM 07/01/21 10/30/21 History hydralazine 100 mg tablet 100 mg PO TID 07/01/21 10/30/21 History magnesium oxide 400 mg (241.3 mg 400 mg PO QAM 07/01/21 10/30/21 History magnesium) tablet pantoprazole 40 mg tablet,delayed 40 mg PO DAILYBB 07/01/21 10/30/21 History release spironolactone 25 mg tablet 50 mg PO QAM 07/01/21 10/30/21 History Past Med/Surg History Medical History CAD (coronary artery disease) CVA (cerebral vascular accident) (~2019) no deficits Hyperlipemia Hypertension Myocardial infarct, old follows with Dr. Mcpherson PAD (peripheral artery disease) Pneumonia hx S/P angiogram of extremity (02/02/21) Type 2 diabetes mellitus with diabetic neuropathy, unspecified NIDDM Surgical History H/O removal of cyst right abdominal area History of bunionectomy of right great toe History of cardiac cath (~2018) History of heart artery stent (~2019) x1. at [facility]. Status post ORIF of fracture of ankle Family History Other No family history of adverse response to anesthesia Social History Smoking Status: Former smoker Tobacco Type: Cigarettes Number of Years Since Quit: 40; Second Hand Exposure: No; Hx Alcohol Use: No Hx Substance Use: No Preferred Language: Luxembourgish Communication Ability: Effective Custody Officer Required: No Beliefs That Will Affect Care: None marital status: / Current Living Situation: Alone Current Living Situation Comment: ranch style home current occupational status: retired How many Children do You have: 1 Other Information That Helps Us Care for You: No Feels Safe at Home: Yes Safety Concerns: Feels Safe At This Time Assistive Devices: Denture - Upper, Denture - Lower and Glasses Review of Systems Review of Systems: REVIEW OF SYSTEMS: Constitutional: (+) fatigue, No fever, sweats or chills Eyes: No diplopia, no worsening or blurred vision ENT: normal hearing, no trouble swallowing Respiratory: No cough, sputum, dyspnea at rest or on exertion Cardiovascular: No chest pain, tightness or palpitations Abdomen: (+) epigastric pain, nausea, vomiting, diarrhea, NO constipation Musculoskeletal: No joint pain, calf pain, swelling Neurologic: No weakness, numbness/tingling, or balance problems Psychiatric: No anxiety or depression Skin: No rash or itch Physical Exam Physical Exam: PHYSICAL EXAM: General: awake, alert, no apparent distress Head: Normocephalic, atraumatic ENT: PERRL, EOMI, no pharyngeal exudate, mucous membranes moist Neuro: AAO x 3, speech clear and appropriate, strength intact bilaterally 5/5, sensation intact and equal all extremities and dermatomes, no pronator drift Chest: equal rise and fall of the chest, no accessory muscle use, no heaves or thrills, Clear to auscultation, on room air, Cardiac: Regular rate and rhythm, telemetry reviewed- NSR 70s with PVC, skin warm dry, cap refill <3 seconds, peripheral pulses +2 no JVD, no murmur, no edema GI: NABS x 4 quadrants, soft, nontender to palpation, no rebound, guarding or tenderness : Spontaneously voiding, no pain, no CVA tenderness- spears placed Extremities: Normal inspection, no peripheral edema or erythema, calfs nontender to palpation Psych: Normal mood and affect Skin: no rash or erythema Results & Data Results & Data ([facility]) Vital Signs (Past 12 Hours) Vital Signs Temp Pulse Resp BP Pulse Ox 10/30/21 22:39 36.6 C 75 24 150/107 H 91 10/30/21 21:00 45 L 17 147/53 H 10/30/21 20:30 42 L 20 137/50 L 97 10/30/21 20:27 42 L 17 142/43 H 97 10/30/21 20:24 41 L 20 98 10/30/21 18:49 36.9 C 52 L 16 102/37 L 97 Laboratory Results Abnormal lab results 10/30/21 10/30/21 10/30/21 Range/Units 19:29 19:29 19:29 WBC 13.57 H (4.8-10.8) K/uL RBC 3.05 L (4.2-5.4) M/uL Hgb 7.3 L (12.0-16.0) g/dL Hct 22.9 L (37-47) % MCV 75.1 L (80-100) fL MCH 23.9 L (25-34) pg MCHC 31.9 L (32-36) g/dL RDW Coeff of Alysa 16.9 H (11.5-14.5) % Plt Count 432 H (130-400) K/uL MPV 11.5 H (7.4-10.4) fL Neut # (Auto) 12.04 H (1.4-6.5) K/uL Lymph # (Auto) 0.83 L (1.2-3.4) K/uL [facility] # (Auto) 0.63 H (0.11-0.59) K/uL Immature Gran # (Auto) 0.06 H (0.00-0.02) K/uL VBG pCO2 (38-50) mmHg Sodium 120 L (136-145) mmol/L Potassium 7.0 H* (3.5-5.1) mmol/L Chloride 94 L (98-107) mmol/L Carbon Dioxide 13 L (21-32) mmol/L Anion Gap 13 H (3-11) BUN 64 H (6-23) mg/dl Creatinine 2.90 H (0.6-1.2) mg/dl BUN/Creatinine Ratio 22.1 H (10-20) Glucose 193 H (70-99(Fasting)) mg/dl AST 106 H (13-39) U/L ALT 156 H (7-52) U/L Alkaline Phosphatase 109 H (34-104) U/L Troponin I High Sens 19.4 H (0-14) pg/ml TSH 5.324 H (0.300-4.500) uIu/ml Crossmatch 10/30/21 10/30/21 10/30/21 Range/Units 20:57 21:55 21:55 WBC (4.8-10.8) K/uL RBC (4.2-5.4) M/uL Hgb (12.0-16.0) g/dL Hct (37-47) % MCV (80-100) fL MCH (25-34) pg MCHC (32-36) g/dL RDW Coeff of Alysa (11.5-14.5) % Plt Count (130-400) K/uL MPV (7.4-10.4) fL Neut # (Auto) (1.4-6.5) K/uL Lymph # (Auto) (1.2-3.4) K/uL [facility] # (Auto) (0.11-0.59) K/uL Immature Gran # (Auto) (0.00-0.02) K/uL VBG pCO2 31 L (38-50) mmHg Sodium 125 L (136-145) mmol/L Potassium 5.5 H D (3.5-5.1) mmol/L Chloride 94 L (98-107) mmol/L Carbon Dioxide 18 L (21-32) mmol/L Anion Gap 13 H (3-11) BUN 63 H (6-23) mg/dl Creatinine 2.73 H (0.6-1.2) mg/dl BUN/Creatinine Ratio 23.1 H (10-20) Glucose 179 H (70-99(Fasting)) mg/dl AST (13-39) U/L ALT (7-52) U/L Alkaline Phosphatase (34-104) U/L Troponin I High Sens (0-14) pg/ml TSH (0.300-4.500) uIu/ml Crossmatch See Detail Diagnostic Findings Chest X-Ray 10/30/21 18:51 XR chest 1V portable CLINICAL HISTORY: weakness COMPARISON STUDY: Chest CT April 26, 2021. Radiograph July 01, 2021. FINDINGS: No pneumothorax or pleural effusion is noted. There is no evidence for pulmonary edema. There is no consolidation to suggest pneumonia. Cardiomediastinal silhouette is stable. IMPRESSION: No acute cardiopulmonary findings. ACT 112: Negative or not required by law. Electronically signed by: Levy Farah M.D. 10/30/2021 8:[address]- abdomen and pelvis see stat rad Medications Administered Home Medications aspirin 81 mg tablet,delayed release 81 mg PO HS 03/04/20 [History Confirmed 10/30/21] clonidine HCl 0.1 mg tablet 0.2 mg PO HS 03/04/20 [History Confirmed 10/30/21] metformin 500 mg tablet,extended release 24 hr 1,000 mg PO BIDM 03/04/20 [History Confirmed 10/30/21] coenzyme Q10 100 mg capsule (CoQ-10) 100 mg PO QAM 12/01/20 [History Confirmed 10/30/21] fish, borage, flaxseed oils-omega 3,6,9 comb no.1 1,200 mg capsule ([place] 3-6-9) 1 cap PO QDD 12/01/20 [History Confirmed 10/30/21] lisinopril 40 mg tablet (Zestril) 40 mg PO QAM 12/01/20 [History Confirmed 10/30/21] potassium chloride 10 mEq tablet,extended release 10 meq PO DAILY PRN 12/01/20 [History Confirmed 10/30/21] atorvastatin 40 mg tablet 40 mg PO QAM 02/26/21 [History Confirmed 10/30/21] multivitamin 1 tab PO QAM 02/26/21 [History Confirmed 10/30/21] ferrous sulfate 325 mg (65 mg iron) tablet 325 mg PO BID #60 tab 05/02/21 [Rx Confirmed 10/30/21] glimepiride 4 mg tablet 4 mg PO BID #60 tab 05/02/21 [Rx Confirmed 10/30/21] amiodarone 200 mg tablet 200 mg PO QAM 07/01/21 [History Confirmed 10/30/21] amlodipine 5 mg tablet 10 mg PO BID 07/01/21 [History Confirmed 10/30/21] apixaban 5 mg tablet (Eliquis) 5 mg PO BID 07/01/21 [History Confirmed 10/30/21] furosemide 20 mg tablet 20 mg PO QAM 07/01/21 [History Confirmed 10/30/21] hydralazine 100 mg tablet 100 mg PO TID 07/01/21 [History Confirmed 10/30/21] magnesium oxide 400 mg (241.3 mg magnesium) tablet 400 mg PO QAM 07/01/21 [History Confirmed 10/30/21] pantoprazole 40 mg tablet,delayed release 40 mg PO DAILYBB 07/01/21 [History Confirmed 10/30/21] spironolactone 25 mg tablet 50 mg PO QAM 07/01/21 [History Confirmed 10/30/21] Active Medications Sodium Chloride (Nss) 250 mls @ 15 mls/hr IV .[id number] PRN PRN Reason: For Transfusion Stop: 10/31/21 06:49 Sodium Chloride (Nss) 250 mls @ 15 mls/hr IV .[id number] PRN PRN Reason: For Transfusion Stop: 10/31/21 06:56 Sodium Bicarbonate 150 meq/ (Dextrose) 1,150 mls @ 110 mls/hr IV .[id number] Stop: 11/29/21 22:35 Discontinued Medications Dextrose (Dextrose 50% 50 Ml Syringe) 50 ml IV NOW ONE Stop: 10/30/21 20:25 Last Admin: 10/30/21 20:50 Dose: 50 ml Documented by: [id number] Sodium Chloride (Nss 1000ml) 1,000 mls @ 999 mls/hr IV .[id number] ONE Stop: 10/30/21 21:24 Last Infusion: 10/30/21 21:47 Dose: 0 mls/hr Documented by: [id number] Admin: 10/30/21 20:42 Dose: 999 mls/hr Documented by: [id number] Calcium Gluconate 1,000 mg/ (Dextrose) 60 mls @ 240 mls/hr IV ONCE STA; Protocol Stop: 10/30/21 20:38 Last Infusion: 10/30/21 21:11 Dose: 0 mls/hr Documented by: [id number] Admin: 10/30/21 20:48 Dose: 240 mls/hr Documented by: [id number] Calcium Gluconate 1,000 mg/ (Dextrose) 60 mls @ 240 mls/hr IV NOW ONE Stop: 10/30/21 21:29 Last Infusion: 10/30/21 21:47 Dose: 0 mls/hr Documented by: [id number] Admin: 10/30/21 21:14 Dose: 240 mls/hr Documented by: [id number] Insulin Human Regular (Novolin-R Insulin Per Unit Charge) 10 units IV NOW STA Stop: 10/30/21 20:25 Last Admin: 10/30/21 20:51 Dose: 10 units Documented by: [id number] Cosigned by: [id number] Sodium Bicarbonate (Sodium Bicarb 8.4% Inj 50 Meq/50 Ml Syr) 150 meq IV NOW STA Stop: 10/30/21 20:25 Last Admin: 10/30/21 21:05 Dose: 150 meq Documented by: [id number] ECG Additional Comments: Junctional bradycardia Abnormal ECG When compared with ECG of 17-MAY-2021 09:11, Junctional rhythm has replaced Sinus rhythm Nonspecific T wave abnormality no longer evident in Inferior leads Code Status & VTE Plan Code Status CODE: FULL VTE: SCDs, hold chemoprophylaxis until GI bleed ruled out VTE Prophylaxis Plan VTE Prophylaxis will be ordered: Yes Supervising Physician Co-Signing Physician Notes Patient seen and examined, chart reviewed, case discussed with MARITNEZ Huerta and I agree with the assessment and plan as above. In brief, patient is a 81yo female presenting with dizziness. She reports 24 hours of nausea/vomiting/diarrhea and PO intolerance prior to arrival. Afebrile, HD stable on arrival. Initial labs with LEV (Cr of 2.9, BUN of 64 and hyperkalemia with K=7 - junctional bradycardia on initial EKG), AGMA with Gap of 13. Patient treated medically for hyperkalemia with NaHCO3, Insulin/D50 and Calcium. Repeat labs have improved - now with K=5.5, patient in NSR, Gap improved to 9 with HCO3 of 21, Cr now 2.33 On exam she is afebrile, HD stable, NAD Resting comfortably in bed, NAD Skin intact, no rash HEENT- Dry MM, neck supple Heart - +S1/S2, regular, no m/r/g Lungs - CTA Abd- +BS, soft, NT/ND Ext - warm, trace edema Spears in place with clear, yellow urine Labs and images reviewed Assessment/Plan - IVF, HCO3 gtt, frequent monitoring of labs, medical treatment for hyperkalemia as needed, monitor I/Os, Nephrology consultation appreciated Transfusion PRBCs, Protonix for suspected UGIB, monitor CBC. Holding ASA and Eliquis. GI Consultation Remainder as above PG Care Time/CCT Total # of Minutes Spent Total Time Spent with Patient: Total time spent is greater than 50% in coordination of care (as documented) at patient's floor/unit and/or counseling patient: Coding Level of Care Code 62568 Initial Inpt Care Lvl 3 Diagnoses LEV (acute kidney injury) N17.9 Hyperkalemia E87.5 Gastroenteritis K52.9 Anemia D64.9 Acute on chronic heart failure with preserved ejection fraction (HFpEF) I50.33 Paroxysmal atrial fibrillation I48.0 PAD (peripheral artery disease) I73.9 CAD (coronary artery disease) I25.10 Type 2 diabetes mellitus with diabetic neuropathy, unspecified E11.40 Hypertension I10 Hypertension type: unspecified Hyperlipemia E78.5 Elevated liver enzymes R74.8 Hyponatremia E87.1 Elevated troponin R77.8 Metabolic acidosis E87.2 (1) Hypertension Hypertension type: unspecified Qualified Code(s): I10 - Essential (primary) hypertension
[2021-10-30 23:40] LABS: INR 1.2 (0.9-1.1); Prothrombin Time 12.2 Seconds (9.0-12.0)
[2021-10-30 23:43] LABS: Appearance Urine Clear (Clear); Bacteria Urine Automated Negative (Negative); Bilirubin Urine Negative (Negative); Blood Urine Negative (Negative); Color Urine Yellow; Glucose Urine UA Negative (Negative); Ketones Urine Negative (Negative); Leukocyte Esterase Urine 3+ (Negative); Nitrite Urine Negative (Negative); Protein Urine Negative (Negative); RBC Urine Automated 0-4 /hpf (0-4); Specific Gravity Urine 1.012 (1.000-1.030); Urobilinogen Urine Negative (Negative)
[2021-10-31] MEDS ORDERED: ICU PROTOCOL FOR HYPERGLYCEMIA PRN (00:41)
[2021-10-31] MEDS ORDERED: GLUCOSE 10 TAB/TUBE PO PRN ×2 (01:34→14:02)
[2021-10-31] MEDS ORDERED: DEXTROSE 50% 50 ML SYRINGE IV PRN ×2 (01:34→14:02)
[2021-10-31] MEDS ORDERED: GLUCOSE 40% GEL 15 GM TUBE PO PRN ×2 (01:34→14:02)
[2021-10-31] MEDS ORDERED: CARBOHYDRATES FOR HYPOGLYCEMIA PO PRN ×2 (01:34→14:02)
[2021-10-31] MEDS ORDERED: GLUCAGON FOR INJ 1 MG VIAL SQ PRN ×2 (01:34→14:02)
--- NOTE | 2021-10-31 01:34 | Critical Care Consultation ---
Date of Consultation October 31, 2021 Assessment & Plan (1) Admitted to intensive care unit: Reason Critically Ill: 81-year-old female with acute hyperkalemia and EKG changes, anemia, transaminitis, etc. requiring close ICU monitoring for electrolyte derangements. NEURO - * CAM ICU: NEGATIVE CARDIAC/VASCULAR - * Junctional bradycardia: * Initial EKG in the emergency department demonstrated a junctional bradycardia rhythm. This was quickly corrected with correction of underlying hyperkalemia. * Continue to monitor closely in the ICU for any changes in rate/rhythm. * HTN/a fib/CAD: * Restart ASCVD Rx when appropriate. * Hold NOAC for now while evaluating for ?? GIB * Monitor on telemetry. RESPIRATORY - * Hypoxia: * Requiring increasing O2. * Slightly tachypneic on exam. * CXR shows slight progression of pulmonary edema. * d/c excessive IVF. * Will provide PRBCs at a slow rate. * Lasix if needed GI/NUTRITION - * ?? GIB: * Heme positive stools reported with drop in H&H. * Agree w/ Protonix. * Holding NOAC/ASA. * Appreciate GI consultation. * Transaminitis: * Of ?? etiology. Slight elevation. * ?? hypoperfusion in the hypotensive, dehydrated patient. * Abd/Pelvis CT pending. * Repeat in AM to evaluate for any changes. * T bili wnl. RENAL/LYTES - * LEV: * Likely prerenal in the setting of GI losses as well as hypotension. * Received IVF resuscitation in the ED. * Cr/Lytes improving * Hold on further IVF for now as patient is becoming hypoxic and CXR suggestive of overload. * Patient is making great amounts of urine at this time. * On review of prior visits, patient has presented w/ complex electrolyte derangements in the past (i.e. hyponatremia). - * Castañeda in place - Strict I&Os. ENDO - * DMII * BSGs per unit protocol. ISS --> gtt per unit policy. HEME - * Anemia: * Acute on chronic. * Patient started receiving 1U PRBC in the ED in the setting of GIB. * Will allow to slowly transfuse as the patient is w/o overt s/s significant bleeding. * Will recheck H&H after 1U as I am fine w/ the Hgb ~8 at this point given her hemodynamic stability and concerns for volume overload. ID - * Gastroenteritis: * N/V/D the past few days. * wbcs elevated. * Abd exam benign and CT w/ findings of gastroenteritis. * Will add stool cultures. * In the absence of PCT elevation, afebrile state, normal lactate, benign abdominal exam, and no other apparent sources, will hold off on Abx at this time. LINES/IV ACCESS - * PIVs x2 * Castañeda DVT PROPHYLAXIS - * Hold on anticoagulation in the setting of GIB * SCDs I have personally spent 45 minutes of critical care time in the direct management of this patient. This is a life/limb threatening event. This includes time spent evaluating patient, direct bedside care, chart review, placing orders, interpretation of diagnostic studies, discussion with consultants, patient, and family members, as well as other required patient management activities. This time is exclusive of all separately billable procedures, and teaching time and separate from and in addition to any other critical care service time. Thank you for allowing us to participate in the care of this patient. Please refer to my attending physician's documentation for any further recommendations. (2) Hyperkalemia: (3) Hyponatremia: (4) Elevated liver enzymes: (5) Anemia: (6) Gastroenteritis: (7) LEV (acute kidney injury): (8) Bradycardia: (9) Paroxysmal atrial fibrillation: (10) Acute on chronic heart failure with preserved ejection fraction (HFpEF): History of Present Illness Attending Physician: Nina Hernandez DO History of Present Illness Patient is a 81-year-old female with extensive past medical history including hypertension, hyperlipidemia, diabetes, peripheral arterial disease, coronary artery disease, hyponatremia, A. fib with RVR anticoagulated on NOAC, heart failure with preserved EF, and mitral regurgitation. Patient reports having felt ill for the last week or so. She had vomiting and diarrhea yesterday. She felt generally weak and fatigued which prompted emergency department visit today. During her evaluation, patient was noted to have potassium in excess of 7. When EKG was obtained, the patient was noted to be in a junctional bradycardia rhythm. She was resuscitated immediately utilizing IV fluids, insulin, dextrose, and bicarb. She received 2 g of calcium gluconate as well. Her heart rate and rhythm did improve. Unfortunately, the patient was noted to have a drop in her H&H as well. Orders were placed for transfusion of blood products. Repeat labs show improvement of potassium. She was brought to the ICU for ongoing management of electrolyte derangements. Upon evaluation in the ICU, the patient is awake, alert, and oriented. She reports feeling much better than when she initially presented. Unfortunately, she is complaining of some shortness of breath which is new. Nursing staff reports this is since blood has started. Orders placed for chest x-ray and repeat labs. Further diabetes chart demonstrates patient with similar symptoms in the past with volume overload during hospitalization. Will reassess for possible need for Lasix which will also aid in patient's hyperkalemia. Allergies Allergy/AdvReac Type Severity Reaction Status Date / Time fenofibrate AdvReac Intermediate INCREASED Verified 10/30/21 20:49 URINATION metoprolol AdvReac Intermediate VOMIT,DIARR Verified 10/30/21 20:49 HEA verapamil AdvReac Intermediate INCREASED Verified 10/30/21 20:49 URINATION valsartan AdvReac Mild Weakness Verified 10/30/21 20:49 Home Medications Medication Instructions Recorded Confirmed Type aspirin 81 mg tablet,delayed 81 mg PO HS 03/04/20 10/30/21 History release clonidine HCl 0.1 mg tablet 0.2 mg PO HS 03/04/20 10/30/21 History metformin 500 mg tablet,extended 1,000 mg PO BIDM 03/04/20 10/30/21 History release 24 hr coenzyme Q10 100 mg capsule 100 mg PO QAM 12/01/20 10/30/21 History (CoQ-10) fish, borage, flaxseed oils-omega 1 cap PO QDD 12/01/20 10/30/21 History 3,6,9 comb no.1 1,200 mg capsule ([place] 3-6-9) lisinopril 40 mg tablet (Zestril) 40 mg PO QAM 12/01/20 10/30/21 History potassium chloride 10 mEq 10 meq PO DAILY PRN 12/01/20 10/30/21 History tablet,extended release atorvastatin 40 mg tablet 40 mg PO QAM 02/26/21 10/30/21 History multivitamin 1 tab PO QAM 02/26/21 10/30/21 History ferrous sulfate 325 mg (65 mg 325 mg PO BID #60 tab 05/02/21 10/30/21 Rx iron) tablet glimepiride 4 mg tablet 4 mg PO BID #60 tab 05/02/21 10/30/21 Rx amiodarone 200 mg tablet 200 mg PO QAM 07/01/21 10/30/21 History amlodipine 5 mg tablet 10 mg PO BID 07/01/21 10/30/21 History apixaban 5 mg tablet (Eliquis) 5 mg PO BID 07/01/21 10/30/21 History furosemide 20 mg tablet 20 mg PO QAM 07/01/21 10/30/21 History hydralazine 100 mg tablet 100 mg PO TID 07/01/21 10/30/21 History magnesium oxide 400 mg (241.3 mg 400 mg PO QAM 07/01/21 10/30/21 History magnesium) tablet pantoprazole 40 mg tablet,delayed 40 mg PO DAILYBB 07/01/21 10/30/21 History release spironolactone 25 mg tablet 50 mg PO QAM 07/01/21 10/30/21 History Patient History Medical History CAD (coronary artery disease) CVA (cerebral vascular accident) (~2018) no deficits Hyperlipemia Hypertension Myocardial infarct, old follows with Dr. Mcpherson PAD (peripheral artery disease) Pneumonia hx S/P angiogram of extremity (02/02/21) Type 2 diabetes mellitus with diabetic neuropathy, unspecified NIDDM Surgical History H/O removal of cyst right abdominal area History of bunionectomy of right great toe History of cardiac cath (~2018) History of heart artery stent (~2018) x1. at [facility]. 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 GENERAL - 81-year-old female appearing her stated age who is in mild respiratory distress. Communicates well with provider and answers questions appropriately. SKIN - Without rashes. HEAD - NC/AT. EYES - PERRL with EOMI bilaterally. Sclera anicteric. EARS - No deformities of external structures noted on gross examination bilaterally. NOSE - Midline and without cyanosis. No epistaxis or purulent drainage noted. MOUTH/OROPHARYNX - Without perioral cyanosis. Buccal mucosa pink and moist. NECK - Neck with FROM. Supple to palpation. No nuchal rigidity. LUNGS - Chest wall symmetric without accessory muscle use, intercostals retractions, or central cyanosis. Normal vesicular breath sounds CTA B/L. No wheezes, rales, or rhonchi appreciated. CARDIAC - RRR with S1/S2. No murmur, rubs, or gallops appreciated. ABDOMEN - Abdominal contour obese without pulsations or visible masses. BS normoactive all four quadrants. No tenderness, palpable masses, hepatosplenomegaly, or ascites noted. EXTREMITIES - No clubbing or peripheral cyanosis. No pretibial edema present. Wound noted to the RIGHT Great toe. Peripheral pulses diminished throughout. +5/5 strength noted in UE/LE bilaterally. NEUROLOGIC - Cranial nerves II through XII grossly intact. PSYCH - A&Ox3 and cooperates fully with examiner. Pt is very pleasant and interacts well with examiner. Results & Data Results & Data ([facility]) Vital Signs (Past 12 Hours) Vital Signs Temp Pulse Resp BP Pulse Ox 10/31/21 01:00 164/79 H 10/31/21 00:59 71 17 93 10/31/21 00:55 72 10/31/21 00:45 36.5 C 74 19 158/64 H 90 10/31/21 00:41 36.5 C 06/01/22 00:30 75 23 179/80 H 90 10/31/21 00:15 75 22 167/82 H 89 L 10/31/21 00:01 77 20 160/67 H 88 L 10/31/21 00:00 36.5 C 77 25 H 91 10/30/21 23:52 79 19 87 L 10/30/21 23:46 84 13 10/30/21 23:45 36.5 C 76 20 160/67 H 88 L 10/30/21 23:30 80 21 174/65 H 90 10/30/21 23:19 90 10/30/21 23:15 36.1 C L 78 22 171/74 H 90 10/30/21 23:00 37.0 C 79 22 155/64 H 92 10/30/21 22:49 80 27 H 164/69 H 90 10/30/21 22:39 36.6 C 76 23 150/107 H 89 L 10/30/21 22:38 78 27 H 87 L 10/30/21 22:00 69 22 151/63 H 10/30/21 21:41 73 16 166/67 H 10/30/21 21:30 161/70 H 10/30/21 21:29 69 96 10/30/21 21:00 45 L 17 147/53 H 10/30/21 20:30 42 L 20 137/50 L 97 10/30/21 20:27 42 L 17 142/43 H 97 10/30/21 20:24 41 L 20 98 10/30/21 18:49 36.9 C 52 L 16 102/37 L 97 Coding Level of Care Code Critical Care 1st 30-74 mins Diagnoses Admitted to intensive care unit Z78.9 Hyperkalemia E87.5 Hyponatremia E87.1 Elevated liver enzymes R74.8 Anemia D64.9 Gastroenteritis K52.9 LEV (acute kidney injury) N17.9 Bradycardia R00.1 Paroxysmal atrial fibrillation I48.0 Acute on chronic heart failure with preserved ejection fraction (HFpEF) I50.33 Time Spent (min) 45
[2021-10-31 01:35] LABS: BUN Creatinine Ratio 24.5 (10-20); Calcium 9.6 mg/dl (8.5-10.1); Est GFR (African American) 22.3 ml/min; Est GFR (Non-African American) 19.3 ml/min; Potassium 5.5 mmol/L (3.5-5.1); Troponin I High Sensitivity 20.6 pg/ml (0-14)
[2021-10-31] MEDS ORDERED: DEXTROSE 50% 50 ML SYRINGE IV ONE (01:37)
[2021-10-31] MEDS: FUROSEMIDE INJ 20 MG/2 ML VIAL IV ONE ×2 (02:39→02:43)
[2021-10-31 05:19] LABS: Basophils # (auto) 0.02 K/uL (0-0.2); Basophils % (auto) 0.2 %; Eosinophils # (auto) 0.03 K/uL (0-0.5); Eosinophils % (auto) 0.3 %; Hemoglobin 9.7 g/dL (12.0-16.0); Immature Granulocytes # (auto) 0.05 K/uL (0.00-0.02); Immature Granulocytes % (auto) 0.5 %; Lymphocytes # (auto) 2.05 K/uL (1.2-3.4); Lymphocytes % (auto) 18.8 %; Mean Corpuscular Hemoglobin 25.1 pg (25-34); Mean Corpuscular Hgb Conc 33.4 g/dL (32-36); Mean Corpuscular Volume 74.9 fL (80-100); Mean Platelet Volume 11.2 fL (7.4-10.4); Monocytes # (auto) 0.95 K/uL (0.11-0.59); Monocytes % (auto) 8.7 %; Neutrophils # (auto) 7.83 K/uL (1.4-6.5); Neutrophils % (auto) 71.5 %; Platelet Count 399 K/uL (130-400); RDW Coefficient of Variation 16.5 % (11.5-14.5); RDW Standard Deviation 45.1 fL (36.4-46.3); Red Blood Count 3.87 M/uL (4.2-5.4); White Blood Count 10.93 K/uL (4.8-10.8)
[2021-10-31 05:46] LABS: BUN Creatinine Ratio 25.5 (10-20); Bilirubin Direct 0.2 mg/dl (0-0.2); Bilirubin,Total 1.1 mg/dl (0.2-1.0); Calcium 9.5 mg/dl (8.5-10.1); Est GFR (African American) 26.8 ml/min; Est GFR (Non-African American) 23.2 ml/min; Magnesium 2.2 mg/dl (1.7-2.4); Total Protein 6.5 gm/dl (6.0-8.3); Troponin I High Sensitivity 30.2 pg/ml (0-14)
[2021-10-31] MEDS: D5W AND 1/2NSS 1,000 ML IV SCH ×2 (06:40→20:26)
--- NOTE | 2021-10-31 06:54 | XRay Report ---
XR chest 1V portable HISTORY: 81 years-old Female sob acute shortness of breath. COMPARISON: Chest radiograph 10/30/2021 TECHNIQUE: AP view of the chest FINDINGS: Cardiac silhouette is enlarged. Pulmonary vascular congestion with interval development of reticular interstitial opacities. No pneumothorax or large pleural effusion. Atherosclerosis of the aorta. Mild bibasilar densities suggest atelectasis. Bones appear grossly intact. IMPRESSION: Cardiomegaly with interval development of mild pulmonary edema. ACT 112: Negative or not required by law. The above report was generated using voice recognition software. It may contain grammatical, syntax o r spelling errors. Electronically signed by: Abraham Solis M.D. 10/31/2021 6:53 AM
--- NOTE | 2021-10-31 07:12 | CT Scan Report ---
CT SCAN OF THE ABDOMEN AND PELVIS WITHOUT IV CONTRAST CLINICAL HISTORY: Nausea and vomiting. Diarrhea. COMPARISON STUDY: Abdominal CT dated 12/15/2020. TECHNIQUE: CT scan of the abdomen and pelvis is performed from the lung bases to the proximal femora. Images are reviewed in the axial, sagittal, and coronal planes. IV contrast was not administered for this examination. Note that the examination was performed in suboptimal fashion without oral and IV contrast. A dose lowering technique was utilized adhering to the principles of ALARA. CT DOSE: 459.20 mGy.cm FINDINGS: Lung bases: The heart is normal in size and without pericardial effusion. The coronary arteries are d ensely calcified. There are trace pleural effusions, right larger than left with dependent atelectasi s. Intralobular septal thickening is noted at both lung bases. Liver: The unenhanced liver is normal in size, contour, and attenuation. There is no intrahepatic cruz iary ductal dilatation. Gallbladder: Calcified gallstones are suspected. There is no CT evidence of acute cholecystitis. Spleen: Normal in size and attenuation. Pancreas: The unenhanced pancreas is atrophic. There is peripancreatic infiltration and trace fluid s uggesting acute pancreatitis. Adrenal glands: Unremarkable. Kidneys: The unenhanced kidneys demonstrate cortical atrophy and are without hydronephrosis. There is a 2 mm nonobstructing left renal calculus. No right renal calculi are identified. There is no eviden ce of contour deforming renal mass lesion. Abdominal vasculature: The abdominal aorta is normal in course and caliber noting advanced atheroscle rotic calcification. There is a femorofemoral bypass. Bowel: There is no bowel obstruction. Mild fecal retention is seen throughout the colon. The appendix is not visualized. Peritoneum: There is trace upper abdominal ascites. No intraperitoneal free air is seen. Lymphadenopathy: None. Pelvic viscera: The bladder and uterus are grossly unremarkable. A 2.4 cm simple cystic focus is agai n seen in the left ovary on image #[id number]. Skeletal structures: The skeletal structures are osteopenic. There is mild to moderate lumbosacral sp ondylosis. No lytic or blastic lesions are seen. IMPRESSION: 1. Intralobular septal thickening is noted at the lung bases and there are trace pleural effusions. C orrelate clinically for evidence of fluid overload/congestive failure. 2. Trace upper abdominal ascites. 3. Suspect cholelithiasis. 4. There is mild peripancreatic infiltration and trace fluid. Correlate with clinical findings and se rum amylase/lipase levels for evidence of acute pancreatitis. 5. Left-sided nephrolithiasis. 6. Additional findings as above. ACT 112: Negative or not required by law. Electronically signed by: Arun Amador M.D. 10/31/2021 7:09 AM
[2021-10-31 08:19] LABS: Hematocrit (blood only) 30.3 % (37-47); Hemoglobin 10.2 g/dL (12.0-16.0)
[2021-10-31 08:21] LABS: Creatinine Urine Random 13.8 mg/dl; Potassium Random Urine 15.4 mmol/L
[2021-10-31 08:24] LABS: BUN Creatinine Ratio 25.6 (10-20); Calcium 9.7 mg/dl (8.5-10.1); Creatinine Clr Calc Pharmacy 23.3 ml/min; Est GFR (African American) 30.5 ml/min; Est GFR (Non-African American) 26.3 ml/min; Potassium 4.7 mmol/L (3.5-5.1)
[2021-10-31] MEDS: PANTOprazole 40 MG in SYRINGE 0 ML IV SCH ×2 (08:35)
[2021-10-31] MEDS: ATORVASTATIN 40 MG TAB PO SCH (08:36)
[2021-10-31] MEDS: FERROUS SULFATE 325 MG TAB PO SCH ×2 (08:36→16:59)
--- NOTE | 2021-10-31 08:40 | XRay Report ---
RIGHT FIRST TOE 3 VIEWS CLINICAL HISTORY: First toe wound. FINDINGS: 3 views of the right first toe are correlated with radiographs of the right foot dated 12/26. The skeletal structures are osteopenic. No fracture is identified. There is no bony erosion or periostitis. Moderate to advanced osteoarthritic change is seen at the first metatarsophalangeal cleopatra nt. Mild degenerative change is seen at the first interphalangeal joint. Mild soft tissue swelling is noted in the first toe. No soft tissue gas or radiodense foreign body is identified. IMPRESSION: 1. Soft tissue swelling with no acute osseous abnormality identified in the first toe. 2. Osteopenia and degenerative change as above. Electronically signed by: Arun Amador M.D. 10/31/2021 8:38 AM
--- NOTE | 2021-10-31 09:33 | Critical Care Progress Note ---
Date of Service October 31, 2021 Assessment & Plan (1) Admitted to intensive care unit: (2) Metabolic acidosis: (3) Elevated liver enzymes: (4) Hyperkalemia: (5) LEV (acute kidney injury): (6) Bradycardia: (7) Hyponatremia: Plan: (1) Admitted to intensive care unit: Reason Critically Ill: 81-year-old female with acute hyperkalemia and EKG changes, anemia, transaminitis, etc. requiring close ICU monitoring for electrolyte derangements. NEURO - * CAM ICU: NEGATIVE CARDIAC/VASCULAR - * Junctional bradycardia --> resolved * Initial EKG in the emergency department demonstrated a junctional bradycardia rhythm. This was quickly corrected with correction of underlying hyperkalemia. * Continue to monitor closely in the ICU for any changes in rate/rhythm. * HTN/a fib/CAD: * Restart ASCVD Rx when appropriate. * Hold NOAC for now while evaluating for ?? GIB * Monitor on telemetry. RESPIRATORY - * Acute respiratory failure with hypoxia: * Improving, patient is diuresing well GI/NUTRITION - * ?? GIB: * Heme positive stools reported with drop in H&H. S/p 2 units PRBC * Agree w/ Protonix. Monitor H&H * Holding NOAC/ASA. * GI has been consulted * Transaminitis: * Transient hypotension in the ED with systolic in the 100, patient baseline systolic blood pressures in the 150s * Abd/Pelvis CT did not show any acute findings * Continue to trend RENAL/LYTES - * LEV: * Likely prerenal * Improving, continue to monitor BUNs/creatinine * Avoid nephrotoxic medication * Hypovolemic hyponatremia Serum osmolality 291 this was done when the sodium was 134, urine osmolality 285 Urine lites: Sodium 91, potassium 15.4, chloride 90 - * Castañeda in place - Strict I&Os. ENDO - * DMII * * BSGs per unit protocol. ISS --> gtt per unit policy. HEME - * Anemia: * Acute on chronic. * 2 units of PRBC * Monitor H&H ID - * Gastroenteritis: * N/V/D the past few days. * wbcs elevated likely reactive * Will add stool cultures. * In the absence of PCT elevation, afebrile state, normal lactate, benign abdominal exam, and no other apparent sources, will hold off on Abx at this time. --Prophylaxis VTE: IPC GI: Protonix Lines peripheral Diet: Cardiorenal Plan: In/out: -2410, urine output 4150 Patient's sodium has improved from 120 to 134. Repeat the labs in 4 hours. If still trending up then we will consider 1 dose of DDAVP. Nephrology has been consulted Nephrology has been consulted to help with sodium issues Persistent hypoglycemia, likely secondary to the IV insulin patient got for hyp erkalemia. Continue with D5 half NS and monitor blood sugar Patient's potassium is improved. Hold spironolactone, lisinopril Resume her amlodipine and hydralazine along with clonidine patch for patient's blood pressure Patient is hemodynamically stable to be downgraded to medical floor Please note the above document was generated using voice recognition software. It may contain grammatical, syntax or spelling errors.Any formal questions or concerns about the content, text or information contained within the body of this dictation should be directly addressed to the provider for clarification. Admission and Anticipated Discharge Date Admission Date: October 30, 2021 Subjective Patient seen and examined at bedside. No acute distress Patient states she is feeling better after coming to the hospital Denies any chest pain, no dizziness, no nausea, no vomiting Asking for water and food. Denies any shortness of breath Review of Systems Review of Systems: All systems reviewed & are unremarkable except as noted in Subjective Physical Exam Physical Exam: Constitutional: No acute distress HEENT: EOMI, PERRLA Respiratory system: Good air entry bilaterally, no wheeze, no rhonchi, mild scrap collector ckles bilateral lower lobes CVS: S1-S2 positive, positive 3 out of 6 systolic murmur appreciated best at the aorta Abdomen: Soft, nontender, nondistended, positive bowel sounds x4 Extremities: +2 pulses bilaterally radialis/ dorsalis pedis, no cyanosis, no edema Neuro: Awake alert oriented x3 Psych: Normal mood and affect G/U: Positive Castañeda Skin: no rashes, warm and dry Lymphatic: no cervical or axillary lymphadenopathy Results & Data Results & Data ([facility]) Vital Signs (Past 12 Hours) Vital Signs Temp Pulse Resp BP Pulse Ox 10/31/21 09:00 81 19 174/60 H 95 10/31/21 08:00 78 20 158/99 H 94 10/31/21 07:15 71 13 148/80 H 95 10/31/21 07:00 36.9 C 76 14 139/60 95 10/31/21 06:45 73 11 L 155/60 H 95 10/31/21 06:26 37.1 C 75 14 159/49 H 94 10/31/21 06:24 37.1 C 74 15 135/54 L 95 10/31/21 05:30 77 14 153/64 H 94 10/31/21 05:24 36.8 C 74 13 153/64 H 92 10/31/21 05:15 79 18 161/71 H 94 10/31/21 05:00 80 17 139/63 91 10/31/21 04:45 75 13 140/87 95 10/31/21 04:30 74 12 133/66 94 10/31/21 04:24 36.8 C 75 14 133/66 94 10/31/21 04:15 73 14 122/67 94 10/31/21 04:00 74 15 152/51 H 95 10/31/21 03:30 76 17 159/72 H 93 10/31/21 03:24 37.0 C 76 15 159/72 H 93 10/31/21 03:15 77 15 159/88 H 94 10/31/21 03:00 77 16 155/68 H 92 10/31/21 02:54 37.0 C 23 L 16 155/68 H 94 10/31/21 02:45 74 19 153/76 H 90 10/31/21 02:39 37.0 C 74 18 153/76 H 92 10/31/21 02:30 74 22 144/75 H 94 10/31/21 02:23 37.0 C 73 17 161/72 H 96 10/31/21 02:22 75 20 161/72 H 97 10/31/21 02:15 75 20 159/63 H 94 10/31/21 02:14 74 16 162/65 H 94 10/31/21 02:13 36.6 C 75 16 159/63 H 94 10/31/21 02:11 36.6 C 74 18 156/74 H 94 10/31/21 02:00 74 19 156/74 H 93 10/31/21 01:45 36.5 C 76 15 152/76 H 92 10/31/21 01:30 73 16 153/74 H 93 10/31/21 01:15 71 22 151/66 H 93 10/31/21 01:00 72 18 164/79 H 93 10/31/21 00:59 71 17 93 10/31/21 00:55 72 10/31/21 00:45 36.5 C 74 19 158/64 H 90 10/31/21 00:41 36.5 C 10/31/21 00:30 75 23 179/80 H 90 10/31/21 00:15 75 22 167/82 H 89 L 10/31/21 00:01 77 20 160/67 H 88 L 10/31/21 00:00 36.5 C 77 25 H 91 10/30/21 23:52 79 19 87 L 10/30/21 23:46 84 13 10/30/21 23:45 36.5 C 76 20 160/67 H 88 L 10/30/21 23:30 80 21 174/65 H 90 10/30/21 23:19 90 10/30/21 23:15 36.1 C L 78 22 171/74 H 90 10/30/21 23:00 37.0 C 79 22 155/64 H 92 10/30/21 22:49 80 27 H 164/69 H 90 10/30/21 22:39 36.6 C 76 23 150/107 H 89 L 10/30/21 22:38 78 27 H 87 L 10/30/21 22:00 69 22 151/63 H 10/30/21 21:41 73 16 166/67 H 10/30/21 21:30 161/70 H 10/30/21 21:29 69 96 Laboratory Results 10/31/21 07:41 10/31/21 07:41 Coding Level of Care Code Critical Care ea addt'l 30 min Diagnoses Admitted to intensive care unit Z78.9 Metabolic acidosis E87.2 Elevated liver enzymes R74.8 Hyperkalemia E87.5 LEV (acute kidney injury) N17.9 Bradycardia R00.1 Hyponatremia E87.1 Time Spent (min) 35
--- NOTE | 2021-10-31 10:28 | Hospitalist Progress Note ---
Date of Service October 31, 2021 Assessment & Plan (1) LEV (acute kidney injury): Plan: Patient is a 81 yo female with PMHx of HFpEF, paroxysmal aFib, DM, hyponatremia, CAD, PAD, DM2, HTN, and hyperlipidemia admitted on 10/30 with LEV and electrolyte abnormalities secondary to hypovolemia/recent gastroenteritis. LEV (acute kidney injury) - Due to dehydration, replete intravascular - Potassium stabilized and lowering appropriately - Castañeda catheter in place, continue to monitor strict Is/Os - Nephrology consulted. Appreciate their recommendations - IV hydration with D5 + 0.45 NS - Hold lisinopril, spironolactone, metformin Hyponatremia, acute on chronic - previously intolerant to salt tabs - Hold spironalactone - follow BMP - Nephrology consulted: Serum sodium 120 mmol/L on presentation. Na has corrected 14 mmol in 12 hours following medical therapy. Will provide 2 mcg DDAVP IV x1 and monitor response Hyperkalemia Acute - secondary to hypovolemia in the setting of LEV. Patient on Spironolactone as well as PO K 10mEq daily outpatient - Volume repleted with 2.5L of Saline in the EMD- effectively treated with HCO3 amp, D50, Insulin, CA gluconate - BMP q4 hours - Continue to hold lisinopril, KCl supplement, and spironolactone Compensated Metabolic acidosis, resolved - Secondary likely to anemia, hypovolemia, and LEV as well as likely metformin associated - Lactate 1.8 - resuscitation as above Acute blood Anemia, on chronic - heme positive stools in ED; ? GI bleed - s/p 2 units PRBC 10/30 - 10/31 - continue protonix BID IV - Monitor H&H q12h - Hold Eliquis - GI consult, pending Gastroenteritis - Leukocytosis at 13.6 on admission; likely reactive; improved to 10.9 today - Zofran prn - Stool cultures, pending Junctional bradycardia, resolved - Initial EKG in the ED w/ junctional bradycardia rhythm that quickly resolved with correction of underlying hyperkalemia - Monitored in ICU throughout 10/31 with no recurrent abnormal rhythm Demand Ischemia with h/o CAD: - hsTroponin 19 on admission; trending to peak (19.4 --> 20.6 --> 30.2) - Likely type II mismatch with anemia and hypovolemia and acidosis as well as LEV - Patient asymptomatic and specifically denies CP - Will continue to trend Chronic heart failure with preserved ejection fraction (HFpEF): - spironolactone on hold. Paroxysmal atrial fibrillation: - Rate and Rhythm controlled - hold Amiodarone for now Elevated liver enzymes: Unsure of etiology at this time, with elevated WBC 13 - procal negative - CT abdomen and pelvis without acute cause interpreted - Hold Amiodarone - Will continue to trend PAD (peripheral artery disease), With fem-fem bypass - On admission, ASA and Eliquis at this time due to concern for bleed Type 2 diabetes mellitus with diabetic neuropathy, unspecified: - likely metformin associated acidosis, metformin on hold - BG AC/HS insulin protocol in ICU - Continue SSI Hypertension: - Will hold FLAQUITO/ARB, Clonidine, Hydralazine - hold until hemodynamics proven stable Hyperlipemia: Continue statin FENGI: heart healthy, low sodium, DM; IVF w/ D5 0.45NSS DVT PPx: on hold due to ? GIB Dispo: downgrade from ICU to PCU Code status: FULL CODE (2) Hyperkalemia: (3) Gastroenteritis: (4) Anemia: (5) Elevated liver enzymes: (6) Hyponatremia: (7) Elevated troponin: (8) Metabolic acidosis: (9) Hyponatremia: (10) GI bleed: (11) Bradycardia: (12) Acute on chronic heart failure with preserved ejection fraction (HFpEF): (13) Paroxysmal atrial fibrillation: Admission and Anticipated Discharge Date Admission Date: October 30, 2021 Supervising Physician Co-Signing Physician Notes Resident Physician Supervision Note: I independently interviewed and examined the patient and verified the yi history and physical, reviewed labs and image studies and agree with resident Dr. Gordon findings and care plan. Subjective Patient seen and evaluated at bedside this morning. States that she is overall feeling much better. Eating well and sleeping well. Patient denies CP, SOB, abd pain, nausea, vomiting, headache, lightheadedness, or dizziness. Also discussed case with daughter at bedside and son (via phone call). They note that patient does not drink much water at baseline and are concerned about baseline dehydration with the patient. Review of Systems Review of Systems: See HPI Physical Exam Physical Exam: GENERAL: No acute distress. Well developed and well nourished. Vital signs reviewed. EYES: EOMI. Anicteric sclerae. HENT: Moist mucous membranes. RESPIRATORY: Clear to auscultation bilaterally. No wheezing, rales, or rhonchi. CARDIOVASCULAR: Regular rate and rhythm. + murmur. ABDOMEN: Soft, non-tender and non-distended. Normal bowel sounds. EXTREMITIES: No edema. Non-tender. SKIN: Warm, dry. No rashes or lesions. NEUROLOGIC: A/O x3. No focal neurological deficits. PSYCHIATRIC: Cooperative. Appropriate mood and affect. Results & Data Results & Data ([facility]) Vital Signs (Past 12 Hours) Vital Signs Temp Pulse Resp BP Pulse Ox 10/31/21 09:01 83 15 174/60 H 95 10/31/21 09:00 81 19 174/60 H 95 10/31/21 08:00 78 20 158/99 H 94 10/31/21 07:15 71 13 148/80 H 95 10/31/21 07:00 36.9 C 76 14 139/60 95 10/31/21 06:45 73 11 L 155/60 H 95 10/31/21 06:26 37.1 C 75 14 159/49 H 94 10/31/21 06:24 37.1 C 74 15 135/54 L 95 10/31/21 05:30 77 14 153/64 H 94 10/31/21 05:24 36.8 C 74 13 153/64 H 92 10/31/21 05:15 79 18 161/71 H 94 10/31/21 05:00 80 17 139/63 91 10/31/21 04:45 75 13 140/87 95 10/31/21 04:30 74 12 133/66 94 10/31/21 04:24 36.8 C 75 14 133/66 94 10/31/21 04:15 73 14 122/67 94 10/31/21 04:00 74 15 152/51 H 95 10/31/21 03:30 76 17 159/72 H 93 10/31/21 03:24 37.0 C 76 15 159/72 H 93 10/31/21 03:15 77 15 159/88 H 94 10/31/21 03:00 77 16 155/68 H 92 10/31/21 02:54 37.0 C 23 L 16 155/68 H 94 10/31/21 02:45 74 19 153/76 H 90 10/31/21 02:39 37.0 C 74 18 153/76 H 92 10/31/21 02:30 74 22 144/75 H 94 10/31/21 02:23 37.0 C 73 17 161/72 H 96 10/31/21 02:22 75 20 161/72 H 97 10/31/21 02:15 75 20 159/63 H 94 10/31/21 02:14 74 16 162/65 H 94 10/31/21 02:13 36.6 C 75 16 159/63 H 94 10/31/21 02:11 36.6 C 74 18 156/74 H 94 10/31/21 02:00 74 19 156/74 H 93 10/31/21 01:45 36.5 C 76 15 152/76 H 92 10/31/21 01:30 73 16 153/74 H 93 10/31/21 01:15 71 22 151/66 H 93 10/31/21 01:00 72 18 164/79 H 93 10/31/21 00:59 71 17 93 10/31/21 00:55 72 10/31/21 00:45 36.5 C 74 19 158/64 H 90 10/31/21 00:41 36.5 C 10/31/21 00:30 75 23 179/80 H 90 10/31/21 00:15 75 22 167/82 H 89 L 10/31/21 00:01 77 20 160/67 H 88 L 10/31/21 00:00 36.5 C 77 25 H 91 10/30/21 23:52 79 19 87 L 10/30/21 23:46 84 13 10/30/21 23:45 36.5 C 76 20 160/67 H 88 L 10/30/21 23:30 80 21 174/65 H 90 10/30/21 23:19 90 10/30/21 23:15 36.1 C L 78 22 171/74 H 90 10/30/21 23:00 37.0 C 79 22 155/64 H 92 10/30/21 22:49 80 27 H 164/69 H 90 10/30/21 22:39 36.6 C 76 23 150/107 H 89 L 10/30/21 22:38 78 27 H 87 L Laboratory Results 10/31/21 10/31/21 10/31/21 Range/Units 09:53 07:41 07:41 WBC (4.8-10.8) K/uL RBC (4.2-5.4) M/uL Hgb 10.2 L (12.0-16.0) g/dL Hct 30.3 L (37-47) % MCV (80-100) fL MCH (25-34) pg MCHC (32-36) g/dL RDW Std Deviation (36.4-46.3) fL RDW Coeff of Alysa (11.5-14.5) % Plt Count (130-400) K/uL MPV (7.4-10.4) fL Immature Gran % (Auto) % Neut % (Auto) % Lymph % (Auto) % [place] % (Auto) % Eos % (Auto) % Baso % (Auto) % Neut # (Auto) (1.4-6.5) K/uL Lymph # (Auto) (1.2-3.4) K/uL [place] # (Auto) (0.11-0.59) K/uL Eos # (Auto) (0-0.5) K/uL Baso # (Auto) (0-0.2) K/uL Immature Gran # (Auto) (0.00-0.02) K/uL Ovalocytes Echinocytes PT (9.0-12.0) Seconds INR (0.9-1.1) VBG pH (7.36-7.41) VBG pCO2 (38-50) mmHg VBG pO2 mmHg VBG HCO3 mmol/L VBG O2 Saturation % VBG Base Excess mEq/L Barometric Pressure mm/Hg Sodium (136-145) mmol/L Potassium (3.5-5.1) mmol/L Chloride (98-107) mmol/L Carbon Dioxide (21-32) mmol/L Anion Gap (3-11) BUN (6-23) mg/dl Creatinine (0.6-1.2) mg/dl Est Cr Clr Drug Dosing Est GFR ( Amer) ml/min Est GFR (Non-Af Amer) ml/min BUN/Creatinine Ratio (10-20) Glucose (70-99(Fasting)) mg/dl POC Glucose 169 H (70-99) mg/dl Osmolality 291 (280-300) mOsm/kg Lactate (0.4-2.0) mmol/L Calcium (8.5-10.1) mg/dl Phosphorus (2.5-4.9) mg/dl Magnesium (1.7-2.4) mg/dl Total Bilirubin (0.2-1.0) mg/dl Direct Bilirubin (0-0.2) mg/dl AST (13-39) U/L ALT (7-52) U/L Alkaline Phosphatase (34-104) U/L Troponin I High Sens B-Natriuretic Peptide (0-100) pg/ml Total Protein (6.0-8.3) gm/dl Albumin (3.4-5.0) gm/dl Globulin (2.5-4.0) gm/dl Albumin/Globulin Ratio (0.9-2) Procalcitonin (0-0.5) ng/ml TSH (0.300-4.500) uIu/ml Urine Color Urine Appearance (Clear) Urine pH (4.5-7.5) Ur Specific [place] (1.000-1.030) Urine Protein (Negative) Urine Glucose (UA) (Negative) Urine Ketones (Negative) Urine Blood (Negative) Urine Nitrite (Negative) Urine Bilirubin (Negative) Urine Urobilinogen (Negative) Ur Leukocyte Esterase (Negative) Urine WBC (Auto) (0-5) /hpf Urine RBC (Auto) (0-4) /hpf U Hyaline Cast (Auto) (0-5) /lpf U Epithel Cells (Auto) (0-5) /lpf Urine Bacteria (Auto) (Negative) Urine Osmolality (500-800) mOsm/kg Ur Random Creatinine mg/dl Ur Random Sodium mmol/L Ur Random Potassium mmol/L Ur Random Chloride mmol/L Ur Random Uric Acid Nasal Screen MRSA (PCR) (Negative) SARS-CoV-2, RNA, NAAT (NEGATIVE) Blood Type Antibody Screen Crossmatch 10/31/21 10/31/21 10/31/21 Range/Units 07:41 07:40 07:40 WBC (4.8-10.8) K/uL RBC (4.2-5.4) M/uL Hgb (12.0-16.0) g/dL Hct (37-47) % MCV (80-100) fL MCH (25-34) pg MCHC (32-36) g/dL RDW Std Deviation (36.4-46.3) fL RDW Coeff of Alysa (11.5-14.5) % Plt Count (130-400) K/uL MPV (7.4-10.4) fL Immature Gran % (Auto) % Neut % (Auto) % Lymph % (Auto) % [place] % (Auto) % Eos % (Auto) % Baso % (Auto) % Neut # (Auto) (1.4-6.5) K/uL Lymph # (Auto) (1.2-3.4) K/uL [place] # (Auto) (0.11-0.59) K/uL Eos # (Auto) (0-0.5) K/uL Baso # (Auto) (0-0.2) K/uL Immature Gran # (Auto) (0.00-0.02) K/uL Ovalocytes Echinocytes PT (9.0-12.0) Seconds INR (0.9-1.1) VBG pH (7.36-7.41) VBG pCO2 (38-50) mmHg VBG pO2 mmHg VBG HCO3 mmol/L VBG O2 Saturation % VBG Base Excess mEq/L Barometric Pressure mm/Hg Sodium 134 L (136-145) mmol/L Potassium 4.7 (3.5-5.1) mmol/L Chloride 101 (98-107) mmol/L Carbon Dioxide 26 (21-32) mmol/L Anion Gap 7 (3-11) BUN 46 H (6-23) mg/dl Creatinine 1.80 H (0.6-1.2) mg/dl Est Cr Clr Drug Dosing 23.3 Est GFR ( Amer) 30.5 ml/min Est GFR (Non-Af Amer) 26.3 ml/min BUN/Creatinine Ratio 25.6 H (10-20) Glucose 87 (70-99(Fasting)) mg/dl POC Glucose (70-99) mg/dl Osmolality (280-300) mOsm/kg Lactate (0.4-2.0) mmol/L Calcium 9.7 (8.5-10.1) mg/dl Phosphorus (2.5-4.9) mg/dl Magnesium (1.7-2.4) mg/dl Total Bilirubin (0.2-1.0) mg/dl Direct Bilirubin (0-0.2) mg/dl AST (13-39) U/L ALT (7-52) U/L Alkaline Phosphatase (34-104) U/L Troponin I High Sens B-Natriuretic Peptide (0-100) pg/ml Total Protein (6.0-8.3) gm/dl Albumin (3.4-5.0) gm/dl Globulin (2.5-4.0) gm/dl Albumin/Globulin Ratio (0.9-2) Procalcitonin (0-0.5) ng/ml TSH (0.300-4.500) uIu/ml Urine Color Urine Appearance (Clear) Urine pH (4.5-7.5) Ur Specific [place] (1.000-1.030) Urine Protein (Negative) Urine Glucose (UA) (Negative) Urine Ketones (Negative) Urine Blood (Negative) Urine Nitrite (Negative) Urine Bilirubin (Negative) Urine Urobilinogen (Negative) Ur Leukocyte Esterase (Negative) Urine WBC (Auto) (0-5) /hpf Urine RBC (Auto) (0-4) /hpf U Hyaline Cast (Auto) (0-5) /lpf U Epithel Cells (Auto) (0-5) /lpf Urine Bacteria (Auto) (Negative) Urine Osmolality (500-800) mOsm/kg Ur Random Creatinine 13.8 mg/dl Ur Random Sodium 91 mmol/L Ur Random Potassium 15.4 mmol/L Ur Random Chloride 90 mmol/L Ur Random Uric Acid Pending Nasal Screen MRSA (PCR) (Negative) SARS-CoV-2, RNA, NAAT (NEGATIVE) Blood Type Antibody Screen Crossmatch 10/31/21 10/31/21 10/31/21 Range/Units 07:40 07:30 05:12 WBC (4.8-10.8) K/uL RBC (4.2-5.4) M/uL Hgb (12.0-16.0) g/dL Hct (37-47) % MCV (80-100) fL MCH (25-34) pg MCHC (32-36) g/dL RDW Std Deviation (36.4-46.3) fL RDW Coeff of Alysa (11.5-14.5) % Plt Count (130-400) K/uL MPV (7.4-10.4) fL Immature Gran % (Auto) % Neut % (Auto) % Lymph % (Auto) % [place] % (Auto) % Eos % (Auto) % Baso % (Auto) % Neut # (Auto) (1.4-6.5) K/uL Lymph # (Auto) (1.2-3.4) K/uL [place] # (Auto) (0.11-0.59) K/uL Eos # (Auto) (0-0.5) K/uL Baso # (Auto) (0-0.2) K/uL Immature Gran # (Auto) (0.00-0.02) K/uL Ovalocytes Echinocytes PT (9.0-12.0) Seconds INR (0.9-1.1) VBG pH (7.36-7.41) VBG pCO2 (38-50) mmHg VBG pO2 mmHg VBG HCO3 mmol/L VBG O2 Saturation % VBG Base Excess mEq/L Barometric Pressure mm/Hg Sodium (136-145) mmol/L Potassium (3.5-5.1) mmol/L Chloride (98-107) mmol/L Carbon Dioxide (21-32) mmol/L Anion Gap (3-11) BUN (6-23) mg/dl Creatinine (0.6-1.2) mg/dl Est Cr Clr Drug Dosing Est GFR ( Amer) ml/min Est GFR (Non-Af Amer) ml/min BUN/Creatinine Ratio (10-20) Glucose (70-99(Fasting)) mg/dl POC Glucose 101 H 178 H (70-99) mg/dl Osmolality (280-300) mOsm/kg Lactate (0.4-2.0) mmol/L Calcium (8.5-10.1) mg/dl Phosphorus (2.5-4.9) mg/dl Magnesium (1.7-2.4) mg/dl Total Bilirubin (0.2-1.0) mg/dl Direct Bilirubin (0-0.2) mg/dl AST (13-39) U/L ALT (7-52) U/L Alkaline Phosphatase (34-104) U/L Troponin I High Sens B-Natriuretic Peptide (0-100) pg/ml Total Protein (6.0-8.3) gm/dl Albumin (3.4-5.0) gm/dl Globulin (2.5-4.0) gm/dl Albumin/Globulin Ratio (0.9-2) Procalcitonin (0-0.5) ng/ml TSH (0.300-4.500) uIu/ml Urine Color Urine Appearance (Clear) Urine pH (4.5-7.5) Ur Specific [place] (1.000-1.030) Urine Protein (Negative) Urine Glucose (UA) (Negative) Urine Ketones (Negative) Urine Blood (Negative) Urine Nitrite (Negative) Urine Bilirubin (Negative) Urine Urobilinogen (Negative) Ur Leukocyte Esterase (Negative) Urine WBC (Auto) (0-5) /hpf Urine RBC (Auto) (0-4) /hpf U Hyaline Cast (Auto) (0-5) /lpf U Epithel Cells (Auto) (0-5) /lpf Urine Bacteria (Auto) (Negative) Urine Osmolality 285 L (500-800) mOsm/kg Ur Random Creatinine mg/dl Ur Random Sodium mmol/L Ur Random Potassium mmol/L Ur Random Chloride mmol/L Ur Random Uric Acid Nasal Screen MRSA (PCR) (Negative) SARS-CoV-2, RNA, NAAT (NEGATIVE) Blood Type Antibody Screen Crossmatch 10/31/21 10/31/21 10/31/21 Range/Units 04:53 04:49 04:49 WBC 10.93 H (4.8-10.8) K/uL RBC 3.87 L (4.2-5.4) M/uL Hgb 9.7 L (12.0-16.0) g/dL Hct 29.0 L (37-47) % MCV 74.9 L (80-100) fL MCH 25.1 (25-34) pg MCHC 33.4 (32-36) g/dL RDW Std Deviation 45.1 (36.4-46.3) fL RDW Coeff of Alysa 16.5 H (11.5-14.5) % Plt Count 399 (130-400) K/uL MPV 11.2 H (7.4-10.4) fL Immature Gran % (Auto) 0.5 % Neut % (Auto) 71.5 % Lymph % (Auto) 18.8 % [place] % (Auto) 8.7 % Eos % (Auto) 0.3 % Baso % (Auto) 0.2 % Neut # (Auto) 7.83 H (1.4-6.5) K/uL Lymph # (Auto) 2.05 (1.2-3.4) K/uL [place] # (Auto) 0.95 H (0.11-0.59) K/uL Eos # (Auto) 0.03 (0-0.5) K/uL Baso # (Auto) 0.02 (0-0.2) K/uL Immature Gran # (Auto) 0.05 H (0.00-0.02) K/uL Ovalocytes Echinocytes PT (9.0-12.0) Seconds INR (0.9-1.1) VBG pH (7.36-7.41) VBG pCO2 (38-50) mmHg VBG pO2 mmHg VBG HCO3 mmol/L VBG O2 Saturation % VBG Base Excess mEq/L Barometric Pressure mm/Hg Sodium 133 L (136-145) mmol/L Potassium 5.0 (3.5-5.1) mmol/L Chloride 101 (98-107) mmol/L Carbon Dioxide 24 (21-32) mmol/L Anion Gap 8 (3-11) BUN 51 H (6-23) mg/dl Creatinine 2.00 H D (0.6-1.2) mg/dl Est Cr Clr Drug Dosing 21.0 Est GFR ( Amer) 26.8 ml/min Est GFR (Non-Af Amer) 23.2 ml/min BUN/Creatinine Ratio 25.5 H (10-20) Glucose 39 L* (70-99(Fasting)) mg/dl POC Glucose 49 L* (70-99) mg/dl Osmolality (280-300) mOsm/kg Lactate (0.4-2.0) mmol/L Calcium 9.5 (8.5-10.1) mg/dl Phosphorus 4.0 (2.5-4.9) mg/dl Magnesium 2.2 (1.7-2.4) mg/dl Total Bilirubin 1.1 H D (0.2-1.0) mg/dl Direct Bilirubin 0.2 (0-0.2) mg/dl AST 138 H (13-39) U/L ALT 215 H (7-52) U/L Alkaline Phosphatase 110 H (34-104) U/L Troponin I High Sens 30.2 H B-Natriuretic Peptide (0-100) pg/ml Total Protein 6.5 (6.0-8.3) gm/dl Albumin 4.0 (3.4-5.0) gm/dl Globulin (2.5-4.0) gm/dl Albumin/Globulin Ratio (0.9-2) Procalcitonin (0-0.5) ng/ml TSH (0.300-4.500) uIu/ml Urine Color Urine Appearance (Clear) Urine pH (4.5-7.5) Ur Specific [place] (1.000-1.030) Urine Protein (Negative) Urine Glucose (UA) (Negative) Urine Ketones (Negative) Urine Blood (Negative) Urine Nitrite (Negative) Urine Bilirubin (Negative) Urine Urobilinogen (Negative) Ur Leukocyte Esterase (Negative) Urine WBC (Auto) (0-5) /hpf Urine RBC (Auto) (0-4) /hpf U Hyaline Cast (Auto) (0-5) /lpf U Epithel Cells (Auto) (0-5) /lpf Urine Bacteria (Auto) (Negative) Urine Osmolality (500-800) mOsm/kg Ur Random Creatinine mg/dl Ur Random Sodium mmol/L Ur Random Potassium mmol/L Ur Random Chloride mmol/L Ur Random Uric Acid Nasal Screen MRSA (PCR) (Negative) SARS-CoV-2, RNA, NAAT (NEGATIVE) Blood Type Antibody Screen Crossmatch 10/31/21 10/31/21 10/31/21 Range/Units 03:29 01:51 01:35 WBC (4.8-10.8) K/uL RBC (4.2-5.4) M/uL Hgb (12.0-16.0) g/dL Hct (37-47) % MCV (80-100) fL MCH (25-34) pg MCHC (32-36) g/dL RDW Std Deviation (36.4-46.3) fL RDW Coeff of Alysa (11.5-14.5) % Plt Count (130-400) K/uL MPV (7.4-10.4) fL Immature Gran % (Auto) % Neut % (Auto) % Lymph % (Auto) % [place] % (Auto) % Eos % (Auto) % Baso % (Auto) % Neut # (Auto) (1.4-6.5) K/uL Lymph # (Auto) (1.2-3.4) K/uL [place] # (Auto) (0.11-0.59) K/uL Eos # (Auto) (0-0.5) K/uL Baso # (Auto) (0-0.2) K/uL Immature Gran # (Auto) (0.00-0.02) K/uL Ovalocytes Echinocytes PT (9.0-12.0) Seconds INR (0.9-1.1) VBG pH (7.36-7.41) VBG pCO2 (38-50) mmHg VBG pO2 mmHg VBG HCO3 mmol/L VBG O2 Saturation % VBG Base Excess mEq/L Barometric Pressure mm/Hg Sodium (136-145) mmol/L Potassium (3.5-5.1) mmol/L Chloride (98-107) mmol/L Carbon Dioxide (21-32) mmol/L Anion Gap (3-11) BUN (6-23) mg/dl Creatinine (0.6-1.2) mg/dl Est Cr Clr Drug Dosing Est GFR ( Amer) ml/min Est GFR (Non-Af Amer) ml/min BUN/Creatinine Ratio (10-20) Glucose (70-99(Fasting)) mg/dl POC Glucose 83 197 H 51 L* (70-99) mg/dl Osmolality (280-300) mOsm/kg Lactate (0.4-2.0) mmol/L Calcium (8.5-10.1) mg/dl Phosphorus (2.5-4.9) mg/dl Magnesium (1.7-2.4) mg/dl Total Bilirubin (0.2-1.0) mg/dl Direct Bilirubin (0-0.2) mg/dl AST (13-39) U/L ALT (7-52) U/L Alkaline Phosphatase (34-104) U/L Troponin I High Sens B-Natriuretic Peptide (0-100) pg/ml Total Protein (6.0-8.3) gm/dl Albumin (3.4-5.0) gm/dl Globulin (2.5-4.0) gm/dl Albumin/Globulin Ratio (0.9-2) Procalcitonin (0-0.5) ng/ml TSH (0.300-4.500) uIu/ml Urine Color Urine Appearance (Clear) Urine pH (4.5-7.5) Ur Specific [place] (1.000-1.030) Urine Protein (Negative) Urine Glucose (UA) (Negative) Urine Ketones (Negative) Urine Blood (Negative) Urine Nitrite (Negative) Urine Bilirubin (Negative) Urine Urobilinogen (Negative) Ur Leukocyte Esterase (Negative) Urine WBC (Auto) (0-5) /hpf Urine RBC (Auto) (0-4) /hpf U Hyaline Cast (Auto) (0-5) /lpf U Epithel Cells (Auto) (0-5) /lpf Urine Bacteria (Auto) (Negative) Urine Osmolality (500-800) mOsm/kg Ur Random Creatinine mg/dl Ur Random Sodium mmol/L Ur Random Potassium mmol/L Ur Random Chloride mmol/L Ur Random Uric Acid Nasal Screen MRSA (PCR) (Negative) SARS-CoV-2, RNA, NAAT (NEGATIVE) Blood Type Antibody Screen Crossmatch 10/31/21 10/31/21 10/31/21 Range/Units 00:59 00:59 00:59 WBC (4.8-10.8) K/uL RBC (4.2-5.4) M/uL Hgb (12.0-16.0) g/dL Hct (37-47) % MCV (80-100) fL MCH (25-34) pg MCHC (32-36) g/dL RDW Std Deviation (36.4-46.3) fL RDW Coeff of Alysa (11.5-14.5) % Plt Count (130-400) K/uL MPV (7.4-10.4) fL Immature Gran % (Auto) % Neut % (Auto) % Lymph % (Auto) % [place] % (Auto) % Eos % (Auto) % Baso % (Auto) % Neut # (Auto) (1.4-6.5) K/uL Lymph # (Auto) (1.2-3.4) K/uL [place] # (Auto) (0.11-0.59) K/uL Eos # (Auto) (0-0.5) K/uL Baso # (Auto) (0-0.2) K/uL Immature Gran # (Auto) (0.00-0.02) K/uL Ovalocytes Echinocytes PT (9.0-12.0) Seconds INR (0.9-1.1) VBG pH (7.36-7.41) VBG pCO2 (38-50) mmHg VBG pO2 mmHg VBG HCO3 mmol/L VBG O2 Saturation % VBG Base Excess mEq/L Barometric Pressure mm/Hg Sodium 128 L (136-145) mmol/L Potassium 5.5 H (3.5-5.1) mmol/L Chloride 98 (98-107) mmol/L Carbon Dioxide 21 (21-32) mmol/L Anion Gap 9 (3-11) BUN 57 H (6-23) mg/dl Creatinine 2.33 H D (0.6-1.2) mg/dl Est Cr Clr Drug Dosing 18.0 Est GFR ( Amer) 22.3 ml/min Est GFR (Non-Af Amer) 19.3 ml/min BUN/Creatinine Ratio 24.5 H (10-20) Glucose 50 L* (70-99(Fasting)) mg/dl POC Glucose (70-99) mg/dl Osmolality (280-300) mOsm/kg Lactate 1.8 (0.4-2.0) mmol/L Calcium 9.6 (8.5-10.1) mg/dl Phosphorus (2.5-4.9) mg/dl Magnesium (1.7-2.4) mg/dl Total Bilirubin (0.2-1.0) mg/dl Direct Bilirubin (0-0.2) mg/dl AST (13-39) U/L ALT (7-52) U/L Alkaline Phosphatase (34-104) U/L Troponin I High Sens 20.6 H B-Natriuretic Peptide 869 H (0-100) pg/ml Total Protein (6.0-8.3) gm/dl Albumin (3.4-5.0) gm/dl Globulin (2.5-4.0) gm/dl Albumin/Globulin Ratio (0.9-2) Procalcitonin (0-0.5) ng/ml TSH (0.300-4.500) uIu/ml Urine Color Urine Appearance (Clear) Urine pH (4.5-7.5) Ur Specific [place] (1.000-1.030) Urine Protein (Negative) Urine Glucose (UA) (Negative) Urine Ketones (Negative) Urine Blood (Negative) Urine Nitrite (Negative) Urine Bilirubin (Negative) Urine Urobilinogen (Negative) Ur Leukocyte Esterase (Negative) Urine WBC (Auto) (0-5) /hpf Urine RBC (Auto) (0-4) /hpf U Hyaline Cast (Auto) (0-5) /lpf U Epithel Cells (Auto) (0-5) /lpf Urine Bacteria (Auto) (Negative) Urine Osmolality (500-800) mOsm/kg Ur Random Creatinine mg/dl Ur Random Sodium mmol/L Ur Random Potassium mmol/L Ur Random Chloride mmol/L Ur Random Uric Acid Nasal Screen MRSA (PCR) (Negative) SARS-CoV-2, RNA, NAAT (NEGATIVE) Blood Type Antibody Screen Crossmatch 10/31/21 10/30/21 10/30/21 Range/Units 00:00 Unknown 23:20 WBC (4.8-10.8) K/uL RBC (4.2-5.4) M/uL Hgb (12.0-16.0) g/dL Hct (37-47) % MCV (80-100) fL MCH (25-34) pg MCHC (32-36) g/dL RDW Std Deviation (36.4-46.3) fL RDW Coeff of Alysa (11.5-14.5) % Plt Count (130-400) K/uL MPV (7.4-10.4) fL Immature Gran % (Auto) % Neut % (Auto) % Lymph % (Auto) % [place] % (Auto) % Eos % (Auto) % Baso % (Auto) % Neut # (Auto) (1.4-6.5) K/uL Lymph # (Auto) (1.2-3.4) K/uL [place] # (Auto) (0.11-0.59) K/uL Eos # (Auto) (0-0.5) K/uL Baso # (Auto) (0-0.2) K/uL Immature Gran # (Auto) (0.00-0.02) K/uL Ovalocytes Echinocytes PT (9.0-12.0) Seconds INR (0.9-1.1) VBG pH (7.36-7.41) VBG pCO2 (38-50) mmHg VBG pO2 mmHg VBG HCO3 mmol/L VBG O2 Saturation % VBG Base Excess mEq/L Barometric Pressure mm/Hg Sodium (136-145) mmol/L Potassium (3.5-5.1) mmol/L Chloride (98-107) mmol/L Carbon Dioxide (21-32) mmol/L Anion Gap (3-11) BUN (6-23) mg/dl Creatinine (0.6-1.2) mg/dl Est Cr Clr Drug Dosing Est GFR ( Amer) ml/min Est GFR (Non-Af Amer) ml/min BUN/Creatinine Ratio (10-20) Glucose (70-99(Fasting)) mg/dl POC Glucose (70-99) mg/dl Osmolality (280-300) mOsm/kg Lactate (0.4-2.0) mmol/L Calcium (8.5-10.1) mg/dl Phosphorus (2.5-4.9) mg/dl Magnesium (1.7-2.4) mg/dl Total Bilirubin (0.2-1.0) mg/dl Direct Bilirubin (0-0.2) mg/dl AST (13-39) U/L ALT (7-52) U/L Alkaline Phosphatase (34-104) U/L Troponin I High Sens B-Natriuretic Peptide (0-100) pg/ml Total Protein (6.0-8.3) gm/dl Albumin (3.4-5.0) gm/dl Globulin (2.5-4.0) gm/dl Albumin/Globulin Ratio (0.9-2) Procalcitonin (0-0.5) ng/ml TSH (0.300-4.500) uIu/ml Urine Color Yellow Urine Appearance Clear (Clear) Urine pH 6.0 (4.5-7.5) Ur Specific [place] 1.012 (1.000-1.030) Urine Protein Negative (Negative) Urine Glucose (UA) Negative (Negative) Urine Ketones Negative (Negative) Urine Blood Negative (Negative) Urine Nitrite Negative (Negative) Urine Bilirubin Negative (Negative) Urine Urobilinogen Negative (Negative) Ur Leukocyte Esterase 3+ H (Negative) Urine WBC (Auto) 10-30 H (0-5) /hpf Urine RBC (Auto) 0-4 (0-4) /hpf U Hyaline Cast (Auto) 1-5 (0-5) /lpf U Epithel Cells (Auto) 10-20 H (0-5) /lpf Urine Bacteria (Auto) Negative (Negative) Urine Osmolality (500-800) mOsm/kg Ur Random Creatinine mg/dl Ur Random Sodium mmol/L Ur Random Potassium mmol/L Ur Random Chloride mmol/L Ur Random Uric Acid Nasal Screen MRSA (PCR) Negative (Negative) SARS-CoV-2, RNA, NAAT NEGATIVE (NEGATIVE) Blood Type Antibody Screen Crossmatch 10/30/21 10/30/21 10/30/21 Range/Units 21:55 21:55 20:57 WBC (4.8-10.8) K/uL RBC (4.2-5.4) M/uL Hgb (12.0-16.0) g/dL Hct (37-47) % MCV (80-100) fL MCH (25-34) pg MCHC (32-36) g/dL RDW Std Deviation (36.4-46.3) fL RDW Coeff of Alysa (11.5-14.5) % Plt Count (130-400) K/uL MPV (7.4-10.4) fL Immature Gran % (Auto) % Neut % (Auto) % Lymph % (Auto) % [place] % (Auto) % Eos % (Auto) % Baso % (Auto) % Neut # (Auto) (1.4-6.5) K/uL Lymph # (Auto) (1.2-3.4) K/uL [place] # (Auto) (0.11-0.59) K/uL Eos # (Auto) (0-0.5) K/uL Baso # (Auto) (0-0.2) K/uL Immature Gran # (Auto) (0.00-0.02) K/uL Ovalocytes Echinocytes PT (9.0-12.0) Seconds INR (0.9-1.1) VBG pH 7.38 (7.36-7.41) VBG pCO2 31 L (38-50) mmHg VBG pO2 57 mmHg VBG HCO3 18 mmol/L VBG O2 Saturation 86.5 % VBG Base Excess -6.4 mEq/L Barometric Pressure 731.7 mm/Hg Sodium 125 L (136-145) mmol/L Potassium 5.5 H D (3.5-5.1) mmol/L Chloride 94 L (98-107) mmol/L Carbon Dioxide 18 L (21-32) mmol/L Anion Gap 13 H (3-11) BUN 63 H (6-23) mg/dl Creatinine 2.73 H (0.6-1.2) mg/dl Est Cr Clr Drug Dosing Not Reportable Est GFR ( Amer) 18.4 ml/min Est GFR (Non-Af Amer) 15.9 ml/min BUN/Creatinine Ratio 23.1 H (10-20) Glucose 179 H (70-99(Fasting)) mg/dl POC Glucose (70-99) mg/dl Osmolality (280-300) mOsm/kg Lactate (0.4-2.0) mmol/L Calcium 9.6 (8.5-10.1) mg/dl Phosphorus (2.5-4.9) mg/dl Magnesium (1.7-2.4) mg/dl Total Bilirubin (0.2-1.0) mg/dl Direct Bilirubin (0-0.2) mg/dl AST (13-39) U/L ALT (7-52) U/L Alkaline Phosphatase (34-104) U/L Troponin I High Sens B-Natriuretic Peptide (0-100) pg/ml Total Protein (6.0-8.3) gm/dl Albumin (3.4-5.0) gm/dl Globulin (2.5-4.0) gm/dl Albumin/Globulin Ratio (0.9-2) Procalcitonin (0-0.5) ng/ml TSH (0.300-4.500) uIu/ml Urine Color Urine Appearance (Clear) Urine pH (4.5-7.5) Ur Specific [place] (1.000-1.030) Urine Protein (Negative) Urine Glucose (UA) (Negative) Urine Ketones (Negative) Urine Blood (Negative) Urine Nitrite (Negative) Urine Bilirubin (Negative) Urine Urobilinogen (Negative) Ur Leukocyte Esterase (Negative) Urine WBC (Auto) (0-5) /hpf Urine RBC (Auto) (0-4) /hpf U Hyaline Cast (Auto) (0-5) /lpf U Epithel Cells (Auto) (0-5) /lpf Urine Bacteria (Auto) (Negative) Urine Osmolality (500-800) mOsm/kg Ur Random Creatinine mg/dl Ur Random Sodium mmol/L Ur Random Potassium mmol/L Ur Random Chloride mmol/L Ur Random Uric Acid Nasal Screen MRSA (PCR) (Negative) SARS-CoV-2, RNA, NAAT (NEGATIVE) Blood Type B Positive Antibody Screen NEGATIVE Crossmatch See Detail 10/30/21 10/30/21 10/30/21 Range/Units 19:29 19:29 19:29 WBC (4.8-10.8) K/uL RBC (4.2-5.4) M/uL Hgb (12.0-16.0) g/dL Hct (37-47) % MCV (80-100) fL MCH (25-34) pg MCHC (32-36) g/dL RDW Std Deviation (36.4-46.3) fL RDW Coeff of Alysa (11.5-14.5) % Plt Count (130-400) K/uL MPV (7.4-10.4) fL Immature Gran % (Auto) % Neut % (Auto) % Lymph % (Auto) % [place] % (Auto) % Eos % (Auto) % Baso % (Auto) % Neut # (Auto) (1.4-6.5) K/uL Lymph # (Auto) (1.2-3.4) K/uL [place] # (Auto) (0.11-0.59) K/uL Eos # (Auto) (0-0.5) K/uL Baso # (Auto) (0-0.2) K/uL Immature Gran # (Auto) (0.00-0.02) K/uL Ovalocytes Echinocytes PT 12.2 H (9.0-12.0) Seconds INR 1.2 H (0.9-1.1) VBG pH (7.36-7.41) VBG pCO2 (38-50) mmHg VBG pO2 mmHg VBG HCO3 mmol/L VBG O2 Saturation % VBG Base Excess mEq/L Barometric Pressure mm/Hg Sodium (136-145) mmol/L Potassium (3.5-5.1) mmol/L Chloride (98-107) mmol/L Carbon Dioxide (21-32) mmol/L Anion Gap (3-11) BUN (6-23) mg/dl Creatinine (0.6-1.2) mg/dl Est Cr Clr Drug Dosing Est GFR ( Amer) ml/min Est GFR (Non-Af Amer) ml/min BUN/Creatinine Ratio (10-20) Glucose (70-99(Fasting)) mg/dl POC Glucose (70-99) mg/dl Osmolality (280-300) mOsm/kg Lactate (0.4-2.0) mmol/L Calcium (8.5-10.1) mg/dl Phosphorus (2.5-4.9) mg/dl Magnesium (1.7-2.4) mg/dl Total Bilirubin (0.2-1.0) mg/dl Direct Bilirubin (0-0.2) mg/dl AST (13-39) U/L ALT (7-52) U/L Alkaline Phosphatase (34-104) U/L Troponin I High Sens B-Natriuretic Peptide (0-100) pg/ml Total Protein (6.0-8.3) gm/dl Albumin (3.4-5.0) gm/dl Globulin (2.5-4.0) gm/dl Albumin/Globulin Ratio (0.9-2) Procalcitonin 0.11 (0-0.5) ng/ml TSH 5.324 H (0.300-4.500) uIu/ml Urine Color Urine Appearance (Clear) Urine pH (4.5-7.5) Ur Specific [place] (1.000-1.030) Urine Protein (Negative) Urine Glucose (UA) (Negative) Urine Ketones (Negative) Urine Blood (Negative) Urine Nitrite (Negative) Urine Bilirubin (Negative) Urine Urobilinogen (Negative) Ur Leukocyte Esterase (Negative) Urine WBC (Auto) (0-5) /hpf Urine RBC (Auto) (0-4) /hpf U Hyaline Cast (Auto) (0-5) /lpf U Epithel Cells (Auto) (0-5) /lpf Urine Bacteria (Auto) (Negative) Urine Osmolality (500-800) mOsm/kg Ur Random Creatinine mg/dl Ur Random Sodium mmol/L Ur Random Potassium mmol/L Ur Random Chloride mmol/L Ur Random Uric Acid Nasal Screen MRSA (PCR) (Negative) SARS-CoV-2, RNA, NAAT (NEGATIVE) Blood Type Antibody Screen Crossmatch 05/10/30/21 10/30/21 Range/Units 19:29 19:29 19:29 WBC 13.57 H (4.8-10.8) K/uL RBC 3.05 L (4.2-5.4) M/uL Hgb 7.3 L (12.0-16.0) g/dL Hct 22.9 L (37-47) % MCV 75.1 L (80-100) fL MCH 23.9 L (25-34) pg MCHC 31.9 L (32-36) g/dL RDW Std Deviation 46.3 (36.4-46.3) fL RDW Coeff of Alysa 16.9 H (11.5-14.5) % Plt Count 432 H (130-400) K/uL MPV 11.5 H (7.4-10.4) fL Immature Gran % (Auto) 0.4 % Neut % (Auto) 88.8 % Lymph % (Auto) 6.1 % [place] % (Auto) 4.6 % Eos % (Auto) 0.0 % Baso % (Auto) 0.1 % Neut # (Auto) 12.04 H (1.4-6.5) K/uL Lymph # (Auto) 0.83 L (1.2-3.4) K/uL [place] # (Auto) 0.63 H (0.11-0.59) K/uL Eos # (Auto) 0.00 (0-0.5) K/uL Baso # (Auto) 0.01 (0-0.2) K/uL Immature Gran # (Auto) 0.06 H (0.00-0.02) K/uL Ovalocytes 1+ Echinocytes 2+ PT (9.0-12.0) Seconds INR (0.9-1.1) VBG pH (7.36-7.41) VBG pCO2 (38-50) mmHg VBG pO2 mmHg VBG HCO3 mmol/L VBG O2 Saturation % VBG Base Excess mEq/L Barometric Pressure mm/Hg Sodium 120 L (136-145) mmol/L Potassium 7.0 H* (3.5-5.1) mmol/L Chloride 94 L (98-107) mmol/L Carbon Dioxide 13 L (21-32) mmol/L Anion Gap 13 H (3-11) BUN 64 H (6-23) mg/dl Creatinine 2.90 H (0.6-1.2) mg/dl Est Cr Clr Drug Dosing Not Reportable Est GFR ( Amer) 17.1 ml/min Est GFR (Non-Af Amer) 14.8 ml/min BUN/Creatinine Ratio 22.1 H (10-20) Glucose 193 H (70-99(Fasting)) mg/dl POC Glucose (70-99) mg/dl Osmolality (280-300) mOsm/kg Lactate (0.4-2.0) mmol/L Calcium 9.2 (8.5-10.1) mg/dl Phosphorus (2.5-4.9) mg/dl Magnesium (1.7-2.4) mg/dl Total Bilirubin 0.3 (0.2-1.0) mg/dl Direct Bilirubin (0-0.2) mg/dl AST 106 H (13-39) U/L ALT 156 H (7-52) U/L Alkaline Phosphatase 109 H (34-104) U/L Troponin I High Sens 19.4 H Cancelled B-Natriuretic Peptide (0-100) pg/ml Total Protein 6.7 (6.0-8.3) gm/dl Albumin 4.1 (3.4-5.0) gm/dl Globulin 2.6 (2.5-4.0) gm/dl Albumin/Globulin Ratio 1.6 (0.9-2) Procalcitonin (0-0.5) ng/ml TSH (0.300-4.500) uIu/ml Urine Color Urine Appearance (Clear) Urine pH (4.5-7.5) Ur Specific [place] (1.000-1.030) Urine Protein (Negative) Urine Glucose (UA) (Negative) Urine Ketones (Negative) Urine Blood (Negative) Urine Nitrite (Negative) Urine Bilirubin (Negative) Urine Urobilinogen (Negative) Ur Leukocyte Esterase (Negative) Urine WBC (Auto) (0-5) /hpf Urine RBC (Auto) (0-4) /hpf U Hyaline Cast (Auto) (0-5) /lpf U Epithel Cells (Auto) (0-5) /lpf Urine Bacteria (Auto) (Negative) Urine Osmolality (500-800) mOsm/kg Ur Random Creatinine mg/dl Ur Random Sodium mmol/L Ur Random Potassium mmol/L Ur Random Chloride mmol/L Ur Random Uric Acid Nasal Screen MRSA (PCR) (Negative) SARS-CoV-2, RNA, NAAT (NEGATIVE) Blood Type Antibody Screen [phone] X[facility] Report Patient:YIN BRO Admit Date:10/30/21 MR#:[id number] Address1:[address] [place] [address] Acct ID:[id number] Address2: Date:1940 [facility] Zip:[place] [address] Age:81 Location:1E Sex:F Room/Bed:[facility] Att Phy:Sandra Carson MD Diagnosis:HYPERKALEMIA, LEV, LOW HGB Thuy Phy:Peggy Leavitt DO Service Date:10/31/21 Fam Phy: Interpreting Phy:Abraham SolisAdmit Phy:Nina Hernandez D.O. Ordering Phy:Warren Santos PA-C cc: ~ XR chest 1V portable HISTORY: 81 years-old Female sob acute shortness of breath. COMPARISON: Chest radiograph 10/30/2021 TECHNIQUE: AP view of the chest FINDINGS: Cardiac silhouette is enlarged. Pulmonary vascular congestion with interval development of reticular interstitial opacities. No pneumothorax or large pleural effusion. Atherosclerosis of the aorta. Mild bibasilar densities suggest atelectasis. Bones appear grossly intact. IMPRESSION: Cardiomegaly with interval development of mild pulmonary edema. ACT 112: Negative or not required by law. The above report was generated using voice recognition software. It may contain grammatical, syntax or spelling errors. Electronically signed by: Abraham Solis M.D. 10/31/2021 6:53 AM Dictated:10/31/21651 Transcribed: 10/31/21651 Resident Activity Tracking Resident Involvement: Resident Care Provided Care Provided: Adult Hospital Medicine
--- NOTE | 2021-10-31 10:59 | Nephrology Consultation ---
Date of Consultation October 31, 2021 Assessment & Plan (1) LEV (acute kidney injury): * LEV due to dehydration, acute anemia in the setting of FLAQUITO/ARB therapy * Hold lisinopril and metformin * Agree w/ IV hydration using D5W + 0.45NS * Monitor PRP (2) Hyponatremia: * Moderate hyponatremia. Serum sodium 120 mmol/L on presentation. Na has corrected 14 mmol in 12 hours following medical therapy. Will provide 2 mcg DDAVP IV x1 and monitor response * Repeat PRP at 1600 hrs today (3) Hyperkalemia: * Serum K 7.0 w/ junctional rhythm at time of presentation. This has corrected w/ medical therapy * Hold lisinopril, KCl supplement, spironolactone (4) GI bleed: * FOBT+ in EMD * Apixaban held * s/p 2u PRBC since admission History of Present Illness Attending Physician: Sandra Carson MD History of Present Illness Ms. Gould is a 81 year old white female who is seen at the request of Dr. Carson for evaluation of chronic hyponatremia. Medical records in the EMR were reviewed today and are summarized as follows: Ms. Gould has a documented h istory of HTN, AODM, PAD, ASCVD, atrial fibrillation w/ RVR (amiodarone, apixaban), HFpEF and mitral regurgitation. Her baseline kidney function has been well preserved w/ Cr 0.8. Ms. Gould has chronic hyponatremia w/ serum sodium 125 - 130 mmol/L. She reports a 2 day h/o vomiting and diarrhea. She presented to the EMD yesterday evening for evaluation of weakness. Evaluation revealed Hgb 7.3, FOBT+, Cr 2.9 K 7.0 and Na 120. She was in junctional rhythm. Medical therapy for hyperkalemia was provided including Ca, 3 amps of NaHCO3 in the EMD and NaHCO3 gtt overnight. Serum Na is 134 mmol/L this am. K has corrected and Cr is improved to 1.8. Ms. Gould currently denies PENA or focal weakness Allergies Allergy/AdvReac Type Severity Reaction Status Date / Time fenofibrate AdvReac Intermediate INCREASED Verified 10/30/21 20:49 URINATION metoprolol AdvReac Intermediate VOMIT,DIARR Verified 10/30/21 20:49 HEA verapamil AdvReac Intermediate INCREASED Verified 10/30/21 20:49 URINATION valsartan AdvReac Mild Weakness Verified 10/30/21 20:49 Home Medications Medication Instructions Recorded Confirmed Type aspirin 81 mg tablet,delayed 81 mg PO HS 03/04/20 10/30/21 History release clonidine HCl 0.1 mg tablet 0.2 mg PO HS 03/04/20 10/30/21 History metformin 500 mg tablet,extended 1,000 mg PO BIDM 03/04/20 10/30/21 History release 24 hr coenzyme Q10 100 mg capsule 100 mg PO QAM 12/01/20 10/30/21 History (CoQ-10) fish, borage, flaxseed oils-omega 1 cap PO QDD 12/01/20 10/30/21 History 3,6,9 comb no.1 1,200 mg capsule ([place] 3-6-9) lisinopril 40 mg tablet (Zestril) 40 mg PO QAM 12/01/20 10/30/21 History potassium chloride 10 mEq 10 meq PO DAILY PRN 12/01/20 10/30/21 History tablet,extended release atorvastatin 40 mg tablet 40 mg PO QAM 02/26/21 10/30/21 History multivitamin 1 tab PO QAM 02/26/21 10/30/21 History ferrous sulfate 325 mg (65 mg 325 mg PO BID #60 tab 05/02/21 10/30/21 Rx iron) tablet glimepiride 4 mg tablet 4 mg PO BID #60 tab 05/02/21 10/30/21 Rx amiodarone 200 mg tablet 200 mg PO QAM 07/01/21 10/30/21 History amlodipine 5 mg tablet 10 mg PO BID 07/01/21 10/30/21 History apixaban 5 mg tablet (Eliquis) 5 mg PO BID 07/01/21 10/30/21 History furosemide 20 mg tablet 20 mg PO QAM 07/01/21 10/30/21 History hydralazine 100 mg tablet 100 mg PO TID 07/01/21 10/30/21 History magnesium oxide 400 mg (241.3 mg 400 mg PO QAM 07/01/21 10/30/21 History magnesium) tablet pantoprazole 40 mg tablet,delayed 40 mg PO DAILYBB 07/01/21 10/30/21 History release spironolactone 25 mg tablet 50 mg PO QAM 07/01/21 10/30/21 History Patient History Medical History CAD (coronary artery disease) CVA (cerebral vascular accident) (~2019) no deficits Hyperlipemia Hypertension Myocardial infarct, old follows with Dr. Mcpherson PAD (peripheral artery disease) Pneumonia hx S/P angiogram of extremity (02/02/21) Type 2 diabetes mellitus with diabetic neuropathy, unspecified NIDDM Surgical History H/O removal of cyst right abdominal area History of bunionectomy of right great toe History of cardiac cath (~2018) History of heart artery stent (~2018) x1. at [facility]. Status post ORIF of fracture of ankle Family History Other No family history of adverse response to anesthesia Social History Smoking Status: Former smoker Tobacco Type: Cigarettes Number of Years Since Quit: 40; Second Hand Exposure: No; Hx Alcohol Use: No Hx Substance Use: No Preferred Language: Greenlandic Communication Ability: Effective Physician Office Clin Asst Required: No Beliefs That Will Affect Care: None marital status: / Current Living Situation: Alone Current Living Situation Comment: ranch style home current occupational status: retired How many Children do You have: 1 Other Information That Helps Us Care for You: No Feels Safe at Home: Yes Safety Concerns: Feels Safe At This Time Assistive Devices: Denture - Upper, Denture - Lower and Glasses Review of Systems Constitutional: + weakness; no fever Eyes: no problem reported Ear, Nose, Mouth, Throat: no problem reported Respiratory: no cough and no dyspnea Cardiovascular: no chest pain, no palpitations and no edema Gastrointestinal: + nausea and + diarrhea/loose stools; no abdominal pain Genitourinary: no dysuria and no hematuria Musculoskeletal: no back pain Integumentary: no rash Neurologic: no confusion Physical Exam Constitutional: not in distress Eyes: PERRL, conjunctivae normal, anicteric sclerae ENMT: external ear and nose normal, oropharynx normal Neck: trachea midline, no thyromegaly Respiratory: normal respiratory effort, lungs clear to auscultation Cardiovascular: RRR, no murmur, no edema Gastrointestinal (Abdomen): normal bowel sounds, soft, nontender, no hepatosplenomegaly Skin: no rashes, warm and dry Neurologic: awake; not confused Results & Data ([facility]) Vital Signs (Past 12 Hours) Vital Signs Temp Pulse Resp BP Pulse Ox 10/31/21 09:01 83 15 174/60 H 95 10/31/21 09:00 81 19 174/60 H 95 10/31/21 08:00 78 20 158/99 H 94 10/31/21 07:15 71 13 148/80 H 95 10/31/21 07:00 36.9 C 76 14 139/60 95 10/31/21 06:45 73 11 L 155/60 H 95 10/31/21 06:26 37.1 C 75 14 159/49 H 94 10/31/21 06:24 37.1 C 74 15 135/54 L 95 10/31/21 05:30 77 14 153/64 H 94 10/31/21 05:24 36.8 C 74 13 153/64 H 92 10/31/21 05:15 79 18 161/71 H 94 10/31/21 05:00 80 17 139/63 91 10/31/21 04:45 75 13 140/87 95 10/31/21 04:30 74 12 133/66 94 10/31/21 04:24 36.8 C 75 14 133/66 94 10/31/21 04:15 73 14 122/67 94 10/31/21 04:00 74 15 152/51 H 95 10/31/21 03:30 76 17 159/72 H 93 10/31/21 03:24 37.0 C 76 15 159/72 H 93 10/31/21 03:15 77 15 159/88 H 94 10/31/21 03:00 77 16 155/68 H 92 10/31/21 02:54 37.0 C 23 L 16 155/68 H 94 10/31/21 02:45 74 19 153/76 H 90 10/31/21 02:39 37.0 C 74 18 153/76 H 92 10/31/21 02:30 74 22 144/75 H 94 10/31/21 02:23 37.0 C 73 17 161/72 H 96 10/31/21 02:22 75 20 161/72 H 97 10/31/21 02:15 75 20 159/63 H 94 10/31/21 02:14 74 16 162/65 H 94 10/31/21 02:13 36.6 C 75 16 159/63 H 94 10/31/21 02:11 36.6 C 74 18 156/74 H 94 10/31/21 02:00 74 19 156/74 H 93 10/31/21 01:45 36.5 C 76 15 152/76 H 92 10/31/21 01:30 73 16 153/74 H 93 10/31/21 01:15 71 22 151/66 H 93 10/31/21 01:00 72 18 164/79 H 93 10/31/21 00:59 71 17 93 10/31/21 00:55 72 10/31/21 00:45 36.5 C 74 19 158/64 H 90 10/31/21 00:41 36.5 C 10/31/21 00:30 75 23 179/80 H 90 10/31/21 00:15 75 22 167/82 H 89 L 10/31/21 00:01 77 20 160/67 H 88 L 10/31/21 00:00 36.5 C 77 25 H 91 10/30/21 23:52 79 19 87 L 10/30/21 23:46 84 13 10/30/21 23:45 36.5 C 76 20 160/67 H 88 L 10/30/21 23:30 80 21 174/65 H 90 10/30/21 23:19 90 10/30/21 23:15 36.1 C L 78 22 171/74 H 90 10/30/21 23:00 37.0 C 79 22 155/64 H 92 Laboratory Results Laboratory Tests 10/30/21 10/30/21 10/30/21 19:29 19:29 19:29 WBC Hgb 7.3 L Hct Plt Count INR 1.2 H Sodium 120 L Potassium Chloride Carbon Dioxide BUN Creatinine Urine Color Urine Protein Urine Glucose (UA) Urine Blood Urine RBC (Auto) U Epithel Cells (Auto) 10/30/21 10/30/21 10/31/21 21:55 23:20 00:59 WBC Hgb Hct Plt Count INR Sodium 125 L 128 L Potassium Chloride Carbon Dioxide BUN Creatinine Urine Color Yellow Urine Protein Negative Urine Glucose (UA) Negative Urine Blood Negative Urine RBC (Auto) 0-4 U Epithel Cells (Auto) 10-20 H 10/31/21 10/31/21 10/31/21 04:49 04:49 07:41 WBC 10.93 H Hgb Hct Plt Count 399 INR Sodium 133 L 134 L Potassium 4.7 Chloride 101 Carbon Dioxide 26 BUN 46 H Creatinine 1.80 H Urine Color Urine Protein Urine Glucose (UA) Urine Blood Urine RBC (Auto) U Epithel Cells (Auto) 10/31/21 07:41 WBC Hgb 10.2 L Hct 30.3 L Plt Count INR Sodium Potassium Chloride Carbon Dioxide BUN Creatinine Urine Color Urine Protein Urine Glucose (UA) Urine Blood Urine RBC (Auto) U Epithel Cells (Auto) PG Care Time/CCT Total # of Minutes Spent Total Time Spent with Patient: Total time spent is greater than 50% in coordination of care (as documented) at patient's floor/unit and/or counseling patient: Coding Level of Care Code 22719 Inpt Consult Level 5 Diagnoses LEV (acute kidney injury) N17.9 Hyponatremia E87.1 Hyperkalemia E87.5 GI bleed K92.2
[2021-10-31] MEDS ORDERED: DESMOPRESSIN ACETATE 2 MCG in SYRINGE 9.5 ML IV ONE (11:15)
[2021-10-31] MEDS: amLODIPine BESYLATE 5 MG TAB PO SCH (11:16)
[2021-10-31 12:39] LABS: Hematocrit (blood only) 28.3 % (37-47); Hemoglobin 9.7 g/dL (12.0-16.0)
[2021-10-31 12:58] LABS: Albumin Globulin Ratio 1.5 (0.9-2); Albumin Level 3.8 gm/dl (3.4-5.0); BUN Creatinine Ratio 26.5 (10-20); Bilirubin,Total 1.3 mg/dl (0.2-1.0); Calcium 8.9 mg/dl (8.5-10.1); Creatinine Clr Calc Pharmacy 27.8 ml/min; Est GFR (African American) 37.7 ml/min; Est GFR (Non-African American) 32.5 ml/min; Globulin 2.5 gm/dl (2.5-4.0); Potassium 4.9 mmol/L (3.5-5.1); Total Protein 6.3 gm/dl (6.0-8.3)
[2021-10-31] MEDS: hydrALAZINE TAB 50 MG TAB PO SCH ×2 (14:23→20:28)
[2021-10-31] MEDS: INSULIN ASPART PER UNIT SC SCH ×2 (16:56→20:28)
[2021-10-31 17:25] LABS: Est GFR (Non-African American) 32.8 ml/min; Potassium 4.9 mmol/L (3.5-5.1)
[2021-10-31] MEDS ORDERED: DESMOPRESSIN ACETATE 2 MCG in SODIUM CHLORIDE 0.9% 50 ML IV ONE (18:15)
[2021-10-31] MEDS: cloNIDine HCL 0.1 MG TAB PO SCH (20:27)
[2021-10-31] MEDS: PANTOprazole 40 MG TAB PO SCH (20:28)
[2021-10-31 20:34] LABS: BUN Creatinine Ratio 24.5 (10-20); Calcium 8.5 mg/dl (8.5-10.1); Creatinine Clr Calc Pharmacy 29.4 ml/min; Est GFR (African American) 40.3 ml/min; Est GFR (Non-African American) 34.7 ml/min; Potassium 4.6 mmol/L (3.5-5.1)
[2021-11-01 05:32] LABS: Basophils # (auto) 0.03 K/uL (0-0.2); Basophils % (auto) 0.3 %; Eosinophils # (auto) 0.17 K/uL (0-0.5); Eosinophils % (auto) 1.8 %; Hematocrit (blood only) 29.9 % (37-47); Hemoglobin 9.8 g/dL (12.0-16.0); Immature Granulocytes # (auto) 0.02 K/uL (0.00-0.02); Immature Granulocytes % (auto) 0.2 %; Lymphocytes # (auto) 1.29 K/uL (1.2-3.4); Lymphocytes % (auto) 13.8 %; Mean Corpuscular Hemoglobin 25.3 pg (25-34); Mean Corpuscular Hgb Conc 32.8 g/dL (32-36); Mean Corpuscular Volume 77.1 fL (80-100); Mean Platelet Volume 11.4 fL (7.4-10.4); Monocytes # (auto) 0.83 K/uL (0.11-0.59); Monocytes % (auto) 8.8 %; Neutrophils # (auto) 7.04 K/uL (1.4-6.5); Neutrophils % (auto) 75.1 %; Platelet Count 356 K/uL (130-400); RDW Coefficient of Variation 16.7 % (11.5-14.5); Red Blood Count 3.88 M/uL (4.2-5.4); White Blood Count 9.38 K/uL (4.8-10.8)
[2021-11-01 06:00] LABS: BUN Creatinine Ratio 23.8 (10-20); Calcium 8.7 mg/dl (8.5-10.1); Est GFR (African American) 58.5 ml/min; Est GFR (Non-African American) 50.5 ml/min; Magnesium 1.7 mg/dl (1.7-2.4); Potassium 4.2 mmol/L (3.5-5.1)
--- NOTE | 2021-11-01 08:08 | Hospitalist Progress Note ---
Date of Service November 01, 2021 Assessment & Plan (1) LEV (acute kidney injury): Plan: Patient is a 81 yo female with PMHx of HFpEF, paroxysmal aFib, DM, hyponatremia, CAD, PAD, DM2, HTN, and hyperlipidemia admitted on 10/30 with LEV and electrolyte abnormalities secondary to hypovolemia/recent gastroenteritis. LEV (acute kidney injury) - Due to dehydration, - IVF resuscitation - Potassium stabilized and lowering appropriately - Castañeda catheter in place, continue to monitor strict Is/Os - Nephrology following - Hold lisinopril, spironolactone, metformin Hyponatremia, acute on chronic - previously intolerant to salt tabs - Hold spironalactone - follow BMP - Nephrology consulted: Serum sodium 120 mmol/L on presentation. Na corrected 14 mmol in 12 hours following medical therapy. Provide DDAVP IV on 10/31 - Serum sodium 130 mmol/L this AM. Liberalize salt in diet. Monitor PRP. Acute blood Anemia, on chronic - heme positive stools in ED; ? GI bleed - s/p 2 units PRBC 10/30 - 10/31 - continue protonix BID IV - Monitor H&H q12h - Hold Eliquis - GI consult: recommended empiric management with IV PPI, holding Eliquis, and proceeding with upper endoscopy tomorrow. Elevated liver enzymes: - procal negative - CT abdomen and pelvis without acute cause interpreted - Hold Amiodarone - Will continue to trend - GI consulted. Recommend: abnormal liver tests may be related to medication side effects or perhaps an episode of hepatic ischemia. Hepatitis viruses need to be ruled out. Recommend following serial liver tests, and viral serologies Hyperkalemia, resolved - Volume repleted with 2.5L of Saline in the EMD- effectively treated with HCO3 amp, D50, Insulin, CA gluconate - BMP q4 hours - Continue to hold lisinopril, KCl supplement, and spironolactone Compensated Metabolic acidosis, resolved - Secondary likely to anemia, hypovolemia, and LEV as well as likely metformin associated - Lactate 1.8 - resuscitation as above Gastroenteritis - Leukocytosis at 13.6 on admission; likely reactive - Zofran prn - Stool cultures, pending Junctional bradycardia, resolved - Initial EKG in the ED w/ junctional bradycardia rhythm that quickly resolved with correction of underlying hyperkalemia - Monitored in ICU throughout 10/31 with no recurrent abnormal rhythm Demand Ischemia with h/o CAD: - hsTroponin 19 on admission; trending to peak (19.4 --> 20.6 --> 30.2) - Likely type II mismatch with anemia and hypovolemia and acidosis as well as LEV - Patient asymptomatic and specifically denies CP - Will continue to trend Chronic heart failure with preserved ejection fraction (HFpEF): - spironolactone on hold. Paroxysmal atrial fibrillation: - Rate and rhythm controlled - hold Amiodarone for now PAD (peripheral artery disease), With fem-fem bypass - On admission, ASA and Eliquis at this time due to concern for bleed Type 2 diabetes mellitus with diabetic neuropathy, unspecified: - likely metformin associated acidosis, metformin on hold - BG AC/HS insulin protocol in ICU - Continue SSI Hypertension: - Will hold FLAQUITO/ARB, Clonidine, Hydralazine - hold until hemodynamics proven stable Hyperlipemia: Continue statin FENGI: heart healthy, low sodium, DM; will be NPO after midnight in preparation for EGD tomorrow DVT PPx: on hold due to ? GIB Dispo: continue management in PCU Code status: FULL CODE (2) Hyperkalemia: (3) Gastroenteritis: (4) Anemia: (5) Elevated liver enzymes: (6) Hyponatremia: (7) Elevated troponin: (8) Metabolic acidosis: (9) GI bleed: (10) Bradycardia: (11) Acute on chronic heart failure with preserved ejection fraction (HFpEF): (12) Paroxysmal atrial fibrillation: Admission and Anticipated Discharge Date Admission Date: October 30, 2021 Supervising Physician Co-Signing Physician Notes Resident Physician Supervision Note: I independently interviewed and examined the patient and verified the yi history and physical, reviewed labs and image studies and agree with resident Dr. Gordon findings and care plan. Subjective Patient seen and evaluated at bedside this morning. No acute events overnight. No specific complaints or concerns this morning. Denies CP, SOB, cough, abd sayda n, nausea, vomiting, diarrhea, urinary symptoms, PENA, lightheadedness, or dizziness. Review of Systems Review of Systems: See HPI Physical Exam Physical Exam: GENERAL: No acute distress. Well developed and well nourished. Vital signs reviewed. EYES: EOMI. Anicteric sclerae. HENT: Moist mucous membranes. RESPIRATORY: Clear to auscultation bilaterally. No wheezing, rales, or rhonchi. CARDIOVASCULAR: Regular rate and rhythm. + murmur. ABDOMEN: Soft, non-tender and non-distended. Normal bowel sounds. EXTREMITIES: No edema. Non-tender. SKIN: Warm, dry. NEUROLOGIC: A/O x3. No focal neurological deficits. PSYCHIATRIC: Cooperative. Appropriate mood and affect. Results & Data Results & Data ([facility]) Vital Signs (Past 12 Hours) Vital Signs Pulse Resp BP Pulse Ox 11/01/21 05:00 58 L 24 97 11/01/21 04:00 61 20 135/50 L 96 11/01/21 03:00 59 L 13 126/47 L 96 11/01/21 02:00 62 26 H 133/48 L 97 11/01/21 01:00 66 14 136/66 95 11/01/21 00:00 72 20 146/63 H 93 10/31/21 23:00 69 17 140/58 L 94 10/31/21 22:00 82 16 164/66 H 10/31/21 21:00 80 28 H 163/65 H Laboratory Results 11/01/21 11/01/21 11/01/21 Range/Units 16:02 11:30 07:33 WBC (4.8-10.8) K/uL RBC (4.2-5.4) M/uL Hgb (12.0-16.0) g/dL Hct (37-47) % MCV (80-100) fL MCH (25-34) pg MCHC (32-36) g/dL RDW Std Deviation (36.4-46.3) fL RDW Coeff of Alysa (11.5-14.5) % Plt Count (130-400) K/uL MPV (7.4-10.4) fL Immature Gran % (Auto) % Neut % (Auto) % Lymph % (Auto) % [place] % (Auto) % Eos % (Auto) % Baso % (Auto) % Neut # (Auto) (1.4-6.5) K/uL Lymph # (Auto) (1.2-3.4) K/uL [place] # (Auto) (0.11-0.59) K/uL Eos # (Auto) (0-0.5) K/uL Baso # (Auto) (0-0.2) K/uL Immature Gran # (Auto) (0.00-0.02) K/uL Sodium (136-145) mmol/L Potassium (3.5-5.1) mmol/L Chloride (98-107) mmol/L Carbon Dioxide (21-32) mmol/L Anion Gap (3-11) BUN (6-23) mg/dl Creatinine (0.6-1.2) mg/dl Est Cr Clr Drug Dosing ml/min Est GFR ( Amer) ml/min Est GFR (Non-Af Amer) ml/min BUN/Creatinine Ratio (10-20) Glucose (70-99(Fasting)) mg/dl POC Glucose 117 H 122 H 72 (70-99) mg/dl Calcium (8.5-10.1) mg/dl Magnesium (1.7-2.4) mg/dl Crossmatch 11/01/21 11/01/21 10/31/21 Range/Units 04:56 04:56 20:22 WBC 9.38 (4.8-10.8) K/uL RBC 3.88 L (4.2-5.4) M/uL Hgb 9.8 L (12.0-16.0) g/dL Hct 29.9 L (37-47) % MCV 77.1 L (80-100) fL MCH 25.3 (25-34) pg MCHC 32.8 (32-36) g/dL RDW Std Deviation 46.0 (36.4-46.3) fL RDW Coeff of Alysa 16.7 H (11.5-14.5) % Plt Count 356 (130-400) K/uL MPV 11.4 H (7.4-10.4) fL Immature Gran % (Auto) 0.2 % Neut % (Auto) 75.1 % Lymph % (Auto) 13.8 % [place] % (Auto) 8.8 % Eos % (Auto) 1.8 % Baso % (Auto) 0.3 % Neut # (Auto) 7.04 H (1.4-6.5) K/uL Lymph # (Auto) 1.29 (1.2-3.4) K/uL [place] # (Auto) 0.83 H (0.11-0.59) K/uL Eos # (Auto) 0.17 (0-0.5) K/uL Baso # (Auto) 0.03 (0-0.2) K/uL Immature Gran # (Auto) 0.02 (0.00-0.02) K/uL Sodium 130 L (136-145) mmol/L Potassium 4.2 (3.5-5.1) mmol/L Chloride 99 (98-107) mmol/L Carbon Dioxide 25 (21-32) mmol/L Anion Gap 6 (3-11) BUN 25 H (6-23) mg/dl Creatinine 1.05 D (0.6-1.2) mg/dl Est Cr Clr Drug Dosing 40.0 ml/min Est GFR ( Amer) 58.5 ml/min Est GFR (Non-Af Amer) 50.5 ml/min BUN/Creatinine Ratio 23.8 H (10-20) Glucose 100 H (70-99(Fasting)) mg/dl POC Glucose 152 H (70-99) mg/dl Calcium 8.7 (8.5-10.1) mg/dl Magnesium 1.7 (1.7-2.4) mg/dl Crossmatch 10/31/21 10/30/21 Range/Units 19:52 20:57 WBC (4.8-10.8) K/uL RBC (4.2-5.4) M/uL Hgb (12.0-16.0) g/dL Hct (37-47) % MCV (80-100) fL MCH (25-34) pg MCHC (32-36) g/dL RDW Std Deviation (36.4-46.3) fL RDW Coeff of Alysa (11.5-14.5) % Plt Count (130-400) K/uL MPV (7.4-10.4) fL Immature Gran % (Auto) % Neut % (Auto) % Lymph % (Auto) % [place] % (Auto) % Eos % (Auto) % Baso % (Auto) % Neut # (Auto) (1.4-6.5) K/uL Lymph # (Auto) (1.2-3.4) K/uL [place] # (Auto) (0.11-0.59) K/uL Eos # (Auto) (0-0.5) K/uL Baso # (Auto) (0-0.2) K/uL Immature Gran # (Auto) (0.00-0.02) K/uL Sodium 130 L (136-145) mmol/L Potassium 4.6 (3.5-5.1) mmol/L Chloride 101 (98-107) mmol/L Carbon Dioxide 23 (21-32) mmol/L Anion Gap 6 (3-11) BUN 35 H (6-23) mg/dl Creatinine 1.43 H (0.6-1.2) mg/dl Est Cr Clr Drug Dosing 29.4 ml/min Est GFR ( Amer) 40.3 ml/min Est GFR (Non-Af Amer) 34.7 ml/min BUN/Creatinine Ratio 24.5 H (10-20) Glucose 139 H (70-99(Fasting)) mg/dl POC Glucose (70-99) mg/dl Calcium 8.5 (8.5-10.1) mg/dl Magnesium (1.7-2.4) mg/dl Crossmatch See Detail Resident Activity Tracking Resident Involvement: Resident Care Provided Care Provided: Adult [facility]
[2021-11-01] MEDS: D5W AND 1/2NSS 1,000 ML IV SCH (08:15)
[2021-11-01] MEDS: INSULIN ASPART PER UNIT SC SCH ×4 (08:15→21:52)
[2021-11-01] MEDS: FERROUS SULFATE 325 MG TAB PO SCH ×2 (08:16→18:13)
[2021-11-01] MEDS: amLODIPine BESYLATE 5 MG TAB PO SCH (08:16)
[2021-11-01] MEDS: hydrALAZINE TAB 50 MG TAB PO SCH ×3 (08:16→21:54)
[2021-11-01] MEDS: PANTOprazole 40 MG TAB PO SCH (08:16)
[2021-11-01] MEDS: ATORVASTATIN 40 MG TAB PO SCH (08:16)
--- NOTE | 2021-11-01 08:31 | Nephrology Progress Note ---
Date of Service November 01, 2021 Assessment & Plan (1) LEV (acute kidney injury): Plan: * LEV due to dehydration, acute anemia in the setting of FLAQUITO/ARB therapy * Hold lisinopril and metformin. BP remains acceptable * Hold IVF. Encourage oral hydration * Monitor PRP (2) Hyponatremia: Plan: * Serum sodium 130 mmol/L this am * Liberalize salt in diet * Monitor PRP (3) Hyperkalemia: Plan: * Corrected w/ medical management * Continue to hold lisinopril, KCl supplement, spironolactone (4) GI bleed: Plan: * FOBT+ in EMD * Apixaban held * s/p 2u PRBC since admission Admission and Anticipated Discharge Date Admission Date: October 30, 2021 Subjective Ms. Gould was evaluated in her hospital room this morning. She was A&O x3. She denied PENA or focal neurologic weakness. Her nausea and diarrhea have resolved Review of Systems Constitutional: no fever Eyes: no problem reported Ear, Nose, Mouth, Throat: no problem reported Respiratory: no cough and no dyspnea Cardiovascular: no chest pain, no palpitations and no edema Gastrointestinal: no abdominal pain Genitourinary: no dysuria and no hematuria Musculoskeletal: no back pain Integumentary: no rash Neurologic: no confusion Physical Exam Constitutional: not in distress Eyes: PERRL, conjunctivae normal, anicteric sclerae ENMT: external ear and nose normal, oropharynx normal Neck: trachea midline, no thyromegaly Respiratory: normal respiratory effort, lungs clear to auscultation Cardiovascular: RRR, no murmur, no edema Gastrointestinal (Abdomen): normal bowel sounds, soft, nontender, no h epatosplenomegaly Skin: no rashes, warm and dry Neurologic: awake; not confused Results & Data ([facility]) Vital Signs (Past 12 Hours) Vital Signs Temp Pulse Resp BP Pulse Ox 11/01/21 08:26 36.5 C 11/01/21 08:00 59 L 24 97 11/01/21 07:58 59 L 23 137/52 L 100 11/01/21 07:30 58 L 11/01/21 07:00 57 L 18 97 11/01/21 05:00 58 L 24 97 11/01/21 04:00 61 20 135/50 L 96 11/01/21 03:00 59 L 13 126/47 L 96 11/01/21 02:00 62 26 H 133/48 L 97 11/01/21 01:00 66 14 136/66 95 11/01/21 00:00 72 20 146/63 H 93 10/31/21 23:00 69 17 140/58 L 94 10/31/21 22:00 82 16 164/66 H 10/31/21 21:00 80 28 H 163/65 H Laboratory Results Laboratory Tests 11/01/21 11/01/21 04:56 04:56 WBC 9.38 Hgb 9.8 L Hct 29.9 L Plt Count 356 Sodium 130 L Potassium 4.2 Chloride 99 Carbon Dioxide 25 BUN 25 H Creatinine 1.05 D Glucose 100 H Calcium 8.7 Magnesium 1.7 Laboratory Tests 10/30/21 10/31/21 10/31/21 19:29 00:59 07:41 Creatinine 2.90 H 2.33 H D 1.80 H 10/31/21 11/01/21 16:34 04:56 Creatinine 1.50 H 1.05 D PG Care Time/CCT Total # of Minutes Spent Total Time Spent with Patient: Total time spent is greater than 50% in coordination of care (as documented) at patient's floor/unit and/or counseling patient: Coding Level of Care Code 92098 Subseq Hosp Care Lvl 3 Diagnoses LEV (acute kidney injury) N17.9 Hyponatremia E87.1 Hyperkalemia E87.5 GI bleed K92.2
[2021-11-01] MEDS ORDERED: cefTRIAXone SODIUM 2,000 MG in DEXTROSE 5% 50 ML IV SCH (09:15)
[2021-11-01] MEDS: POLYETHYLENE (MIRALAX) 17 GM PACK PO SCH ×2 (09:47→21:55)
--- NOTE | 2021-11-01 11:18 | XRay Report ---
XR chest 1V portable CLINICAL HISTORY: hypoxia. COMPARISON STUDY: 10/31/2021 TECHNIQUE: 1 view of the chest FINDINGS: Single frontal view of the chest demonstrates the cardiomediastinal silhouette to be within normal li mits. Compared to previous examination, there has been partial resolution of mild central vascular co ngestion. There is evidence for minimal left basilar atelectasis. The lungs are clear of alveolar opa cities. There is no evidence for pleural effusion. There is no evidence for vascular congestion. Ther e is no acute osseous pathology. IMPRESSION: 1. Partial clearing of mild central vascular congestion. 2. Interval development of left basilar atelectasis. ACT 112: Negative or not required by law. Electronically signed by: Luke Barnhart M.D. 11/01/2021 11:17 AM
--- NOTE | 2021-11-01 13:10 | Electrocardiogram Report ---
Test Reason : Blood Pressure : / mmHG Vent. Rate : 042 BPM Atrial Rate : 065 BPM P-R Int : 000 ms QRS Dur : 110 ms QT Int : 464 ms P-R-T Axes : 000 046 049 degrees QTc Int : 387 ms Junctional bradycardia Abnormal ECG When compared with ECG of 17-MAY-2021 09:11, Junctional rhythm has replaced Sinus rhythm Confirmed by Koby Gee ([id number]) on 11/01/2021 1:09:58 PM Referred By: REFERRED SELF Confirmed By:Koby Gee
--- NOTE | 2021-11-01 16:57 | Gastrointestinal Consultation ---
Date of Consultation November 01, 2021 Assessment & Plan (1) GI bleed: (2) Chronic blood loss anemia: (3) Elevated liver enzymes: History and findings are consistent with chronic occult GI blood loss and resulting blood loss anemia consistent with iron deficiency anemia, source of GI bleeding obscure at this time, upper GI source seems more likely, but GI tract should be electively evaluated with endoscopy. Ms. Gould has never had a colonoscopy or upper endoscopy. I have recommended empiric management with IV PPI, holding Eliquis, and proceeding with elective upper endoscopy tomorrow. Colonoscopy will require preparation and this can be arranged once Ms. Gould is out of the ICU and preparation can be safely administered. I think abnormal liver tests may be related to medication side effects or perhaps an episode of hepatic ischemia. Hepatitis viruses need to be ruled out. Recommend following serial liver tests, and viral serologies. Further recommendations to follow We will follow and assist in care as needed Supervising Physician Co-Signing Physician Notes As consulting physician, I have devoted 45 minutes to reviewing the medical record, interview of the patient and family, discussion with the health care team, and documentation in the medical record, including orders. History of Present Illness Reason for Consultation: positive fecal occult blood test, and microcytic anemia suggesting chronic GI blood loss Attending Physician: Sandra Carson MD History of Present Illness Ms. Gould admitted late on 10-30 with history of acute vomiting and diarrhea, found to have multiple metabolic problems includng hyperkalemia, hyponatremia, acidosis, azotemia, hyperglycemia,acute kidney injury. Fecal occult blood test noted to be positive, and severe microcytic anemia noted. Past history of CAD and peripheral vascular disease with Afib, aortic stenosis, CHF. The patient and family denied hematemesis, melena, hematochezia, and only digestive history is lower abdominal cramping pain related to taking medi cations. By history, she was treated for iron deficiency anemia last winter, but did not continue an oral iron supplement. Since admission on 10-30-21, no physical evidence of any GI blood loss, H and H completely stable following transfusion of 2 units PRBCs. Noted to have abnormal liver tests with elevations of AST, ALT, Alk phos, mild elevation of Bilirubin, no past history of liver disease. and CT without contrast revealing normal appearance of liver, spleen, bile ducts, probable calcified gallstones. Past ultrasounds negative for fatty infiltration. Allergies Allergy/AdvReac Type Severity Reaction Status Date / Time fenofibrate AdvReac Intermediate INCREASED Verified 10/30/21 20:49 URINATION metoprolol AdvReac Intermediate VOMIT,DIARR Verified 10/30/21 20:49 HEA verapamil AdvReac Intermediate INCREASED Verified 10/30/21 20:49 URINATION valsartan AdvReac Mild Weakness Verified 10/30/21 20:49 Home Medications Medication Instructions Recorded Confirmed Type aspirin 81 mg tablet,delayed 81 mg PO HS 03/04/20 10/30/21 History release clonidine HCl 0.1 mg tablet 0.2 mg PO HS 03/04/20 10/30/21 History metformin 500 mg tablet,extended 1,000 mg PO BIDM 03/04/20 10/30/21 History release 24 hr coenzyme Q10 100 mg capsule 100 mg PO QAM 12/01/20 10/30/21 History (CoQ-10) fish, borage, flaxseed oils-omega 1 cap PO QDD 12/01/20 10/30/21 History 3,6,9 comb no.1 1,200 mg capsule ([place] 3-6-9) lisinopril 40 mg tablet (Zestril) 40 mg PO QAM 12/01/20 10/30/21 History potassium chloride 10 mEq 10 meq PO DAILY PRN 12/01/20 10/30/21 History tablet,extended release atorvastatin 40 mg tablet 40 mg PO QAM 02/26/21 10/30/21 History multivitamin 1 tab PO QAM 02/26/21 10/30/21 History ferrous sulfate 325 mg (65 mg 325 mg PO BID #60 tab 05/02/21 10/30/21 Rx iron) tablet glimepiride 4 mg tablet 4 mg PO BID #60 tab 05/02/21 10/30/21 Rx amiodarone 200 mg tablet 200 mg PO QAM 07/01/21 10/30/21 History amlodipine 5 mg tablet 10 mg PO BID 07/01/21 10/30/21 History apixaban 5 mg tablet (Eliquis) 5 mg PO BID 07/01/21 10/30/21 History furosemide 20 mg tablet 20 mg PO QAM 07/01/21 10/30/21 History hydralazine 100 mg tablet 100 mg PO TID 07/01/21 10/30/21 History magnesium oxide 400 mg (241.3 mg 400 mg PO QAM 07/01/21 10/30/21 History magnesium) tablet pantoprazole 40 mg tablet,delayed 40 mg PO DAILYBB 07/01/21 10/30/21 History release spironolactone 25 mg tablet 50 mg PO QAM 07/01/21 10/30/21 History Patient History Medical History CAD (coronary artery disease) CVA (cerebral vascular accident) (~2019) no deficits Hyperlipemia Hypertension Myocardial infarct, old follows with Dr. Mcpherson PAD (peripheral artery disease) Pneumonia hx S/P angiogram of extremity (02/02/21) Type 2 diabetes mellitus with diabetic neuropathy, unspecified NIDDM Surgical History H/O removal of cyst right abdominal area History of bunionectomy of right great toe History of cardiac cath (~2018) History of heart artery stent (~2018) x1. at [facility]. 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 Beliefs That Will Affect Care: None marital status: / Current Living Situation: Alone Current Living Situation Comment: [employer] style home current occupational status: retired How many Children do You have: 1 Other Information That Helps Us Care for You: No Feels Safe at Home: Yes Safety Concerns: Feels Safe At This Time Assistive Devices: None Review of Systems Review of Systems: All systems reviewed & are unremarkable except as noted in Subjective Physical Exam Constitutional: Elderly, chonically ill appearing, pale Eyes: No scleral icterus Results & Data ([facility]) Vital Signs (Past 12 Hours) Vital Signs Temp Pulse Resp BP Pulse Ox 11/01/21 16:00 60 19 147/68 H 100 11/01/21 15:00 63 18 11/01/21 14:01 68 23 140/56 L 84 L 11/01/21 14:00 62 18 91 11/01/21 13:57 61 18 132/53 L 92 11/01/21 13:00 59 L 15 92 11/01/21 12:00 61 21 11/01/21 11:27 72 18 156/73 H 11/01/21 11:00 62 18 97 11/01/21 10:00 62 12 99 11/01/21 09:00 64 17 94 11/01/21 08:56 93 11/01/21 08:26 36.5 C 11/01/21 08:00 59 L 24 97 11/01/21 07:58 59 L 23 137/52 L 100 11/01/21 07:30 58 L 11/01/21 07:00 57 L 18 97 11/01/21 05:00 58 L 24 97 Laboratory Results Laboratory Results WBC 9.38 K/uL (4.8-10.8) 11/01/21 04:56 RBC 3.88 M/uL (4.2-5.4) L 11/01/21 04:56 Hgb 9.8 g/dL (12.0-16.0) L 11/01/21 04:56 Hct 29.9 % (37-47) L 11/01/21 04:56 MCV 77.1 fL (80-100) L 11/01/21 04:56 MCH 25.3 pg (25-34) 11/01/21 04:56 MCHC 32.8 g/dL (32-36) 11/01/21 04:56 RDW Std Deviation 46.0 fL (36.4-46.3) 11/01/21 04:56 RDW Coeff of Alysa 16.7 % (11.5-14.5) H 11/01/21 04:56 Plt Count 356 K/uL (130-400) 11/01/21 04:56 MPV 11.4 fL (7.4-10.4) H 11/01/21 04:56 Immature Gran % (Auto) 0.2 % 11/01/21 04:56 Neut % (Auto) 75.1 % 11/01/21 04:56 Lymph % (Auto) 13.8 % 11/01/21 04:56 [place] % (Auto) 8.8 % 11/01/21 04:56 Eos % (Auto) 1.8 % 11/01/21 04:56 Baso % (Auto) 0.3 % 11/01/21 04:56 Neut # (Auto) 7.04 K/uL (1.4-6.5) H 11/01/21 04:56 Lymph # (Auto) 1.29 K/uL (1.2-3.4) 11/01/21 04:56 [place] # (Auto) 0.83 K/uL (0.11-0.59) H 11/01/21 04:56 Eos # (Auto) 0.17 K/uL (0-0.5) 11/01/21 04:56 Baso # (Auto) 0.03 K/uL (0-0.2) 11/01/21 04:56 Immature Gran # (Auto) 0.02 K/uL (0.00-0.02) 11/01/21 04:56 Ovalocytes 1+ 10/30/21 19:29 Echinocytes 2+ 10/30/21 19:29 PT 12.2 Seconds (9.0-12.0) H 10/30/21 19:29 INR 1.2 (0.9-1.1) H 10/30/21 19:29 VBG pH 7.38 (7.36-7.41) 10/30/21 21:55 VBG pCO2 31 mmHg (38-50) L 10/30/21 21:55 VBG pO2 57 mmHg 10/30/21 21:55 VBG HCO3 18 mmol/L 10/30/21 21:55 VBG O2 Saturation 86.5 % 10/30/21 21:55 VBG Base Excess -6.4 mEq/L 10/30/21 21:55 Barometric Pressure 731.7 mm/Hg 10/30/21 21:55 Sodium 130 mmol/L (136-145) L 11/01/21 04:56 Potassium 4.2 mmol/L (3.5-5.1) 11/01/21 04:56 Chloride 99 mmol/L (98-107) 11/01/21 04:56 Carbon Dioxide 25 mmol/L (21-32) 11/01/21 04:56 Anion Gap 6 (3-11) 11/01/21 04:56 BUN 25 mg/dl (6-23) H 11/01/21 04:56 Creatinine 1.05 mg/dl (0.6-1.2) D 11/01/21 04:56 Est Cr Clr Drug Dosing 40.0 ml/min 11/01/21 04:56 Est GFR ( Amer) 58.5 ml/min 11/01/21 04:56 Est GFR (Non-Af Amer) 50.5 ml/min 11/01/21 04:56 BUN/Creatinine Ratio 23.8 (10-20) H 11/01/21 04:56 Glucose 100 mg/dl (70-99(Fasting)) H 11/01/21 04:56 POC Glucose 117 mg/dl (70-99) H 11/01/21 16:02 Osmolality 291 mOsm/kg (280-300) 10/31/21 07:41 Lactate 1.8 mmol/L (0.4-2.0) 10/31/21 00:59 Calcium 8.7 mg/dl (8.5-10.1) 11/01/21 04:56 Phosphorus 4.0 mg/dl (2.5-4.9) 10/31/21 04:49 Magnesium 1.7 mg/dl (1.7-2.4) 11/01/21 04:56 Total Bilirubin 1.3 mg/dl (0.2-1.0) H 10/31/21 12:07 Direct Bilirubin 0.2 mg/dl (0-0.2) 10/31/21 04:49 AST 106 U/L (13-39) H 10/31/21 12:07 ALT 204 U/L (7-52) H 10/31/21 12:07 Alkaline Phosphatase 101 U/L (34-104) 10/31/21 12:07 Troponin I High Sens 30.2 pg/ml (0-14) H 10/31/21 04:49 B-Natriuretic Peptide 869 pg/ml (0-100) H 10/31/21 00:59 Total Protein 6.3 gm/dl (6.0-8.3) 10/31/21 12:07 Albumin 3.8 gm/dl (3.4-5.0) 10/31/21 12:07 Globulin 2.5 gm/dl (2.5-4.0) 10/31/21 12:07 Albumin/Globulin Ratio 1.5 (0.9-2) 10/31/21 12:07 Amylase 67 U/L (25-115) 10/31/21 12:07 Lipase 31 U/L (11-82) 10/31/21 12:07 Procalcitonin 0.11 ng/ml (0-0.5) 10/30/21 19:29 TSH 5.324 uIu/ml (0.300-4.500) H 10/30/21 19:29 Urine Color Yellow 10/30/21 23:20 Urine Appearance Clear (Clear) 10/30/21 23:20 Urine pH 6.0 (4.5-7.5) 10/30/21 23:20 Ur Specific [place] 1.012 (1.000-1.030) 10/30/21 23:20 Urine Protein Negative (Negative) 10/30/21 23:20 Urine Glucose (UA) Negative (Negative) 10/30/21 23:20 Urine Ketones Negative (Negative) 10/30/21 23:20 Urine Blood Negative (Negative) 10/30/21 23:20 Urine Nitrite Negative (Negative) 10/30/21 23:20 Urine Bilirubin Negative (Negative) 10/30/21 23:20 Urine Urobilinogen Negative (Negative) 10/30/21 23:20 Ur Leukocyte Esterase 3+ (Negative) H 10/30/21 23:20 Urine WBC (Auto) 10-30 /hpf (0-5) H 10/30/21 23:20 Urine RBC (Auto) 0-4 /hpf (0-4) 10/30/21 23:20 U Hyaline Cast (Auto) 1-5 /lpf (0-5) 10/30/21 23:20 U Epithel Cells (Auto) 10-20 /lpf (0-5) H 10/30/21 23:20 Urine Bacteria (Auto) Negative (Negative) 10/30/21 23:20 Urine Osmolality 285 mOsm/kg (500-800) L 10/31/21 07:40 Ur Random Creatinine 13.8 mg/dl 10/31/21 07:40 Ur Random Sodium 91 mmol/L 10/31/21 07:40 Ur Random Potassium 15.4 mmol/L 10/31/21 07:40 Ur Random Chloride 90 mmol/L 10/31/21 07:40 Nasal Screen MRSA (PCR) Negative (Negative) 10/31/21 00:00 SARS-CoV-2, RNA, NAAT NEGATIVE (NEGATIVE) 10/30/21 Unknown Blood Type B Positive 10/30/21 20:57 Antibody Screen NEGATIVE 10/30/21 20:57 Crossmatch See Detail 10/30/21 20:57 Impressions Abdomen/Pelvis CT 10/30/21 20:24 CT SCAN OF THE ABDOMEN AND PELVIS WITHOUT IV CONTRAST CLINICAL HISTORY: Nausea and vomiting. Diarrhea. COMPARISON STUDY: Abdominal CT dated 12/15/2020. TECHNIQUE: CT scan of the abdomen and pelvis is performed from the lung bases to the proximal femora. Images are reviewed in the axial, sagittal, and coronal planes. IV contrast was not administered for this examination. Note that the examination was performed in suboptimal fashion without oral and IV contrast. A dose lowering technique was utilized adhering to the principles of ALARA. CT DOSE: 459.20 mGy.cm FINDINGS: Lung bases: The heart is normal in size and without pericardial effusion. The coronary arteries are densely calcified. There are trace pleural effusions, right larger than left with dependent atelectasis. Intralobular septal thickening is noted at both lung bases. Liver: The unenhanced liver is normal in size, contour, and attenuation. There is no intrahepatic biliary ductal dilatation. Gallbladder: Calcified gallstones are suspected. There is no CT evidence of acute cholecystitis. Spleen: Normal in size and attenuation. Pancreas: The unenhanced pancreas is atrophic. There is peripancreatic infiltration and trace fluid suggesting acute pancreatitis. Adrenal glands: Unremarkable. Kidneys: The unenhanced kidneys demonstrate cortical atrophy and are without hydronephrosis. There is a 2 mm nonobstructing left renal calculus. No right renal calculi are identified. There is no evidence of contour deforming renal mass lesion. Abdominal vasculature: The abdominal aorta is normal in course and caliber noting advanced atherosclerotic calcification. There is a femorofemoral bypass. Bowel: There is no bowel obstruction. Mild fecal retention is seen throughout the colon. The appendix is not visualized. Peritoneum: There is trace upper abdominal ascites. No intraperitoneal free air is seen. Lymphadenopathy: None. Pelvic viscera: The bladder and uterus are grossly unremarkable. A 2.4 cm simple cystic focus is again seen in the left ovary on image #[id number]. Skeletal structures: The skeletal structures are osteopenic. There is mild to moderate lumbosacral spondylosis. No lytic or blastic lesions are seen. IMPRESSION: 1. Intralobular septal thickening is noted at the lung bases and there are trace pleural effusions. Correlate clinically for evidence of fluid overload/congestive failure. 2. Trace upper abdominal ascites. 3. Suspect cholelithiasis. 4. There is mild peripancreatic infiltration and trace fluid. Correlate with clinical findings and serum amylase/lipase levels for evidence of acute pancre atitis. 5. Left-sided nephrolithiasis. 6. Additional findings as above. ACT 112: Negative or not required by law. Electronically signed by: Arun Amador M.D. 10/31/2021 7:09 AM Toe X-Ray 10/31/21 00:20 RIGHT FIRST TOE 3 VIEWS CLINICAL HISTORY: First toe wound. FINDINGS: 3 views of the right first toe are correlated with radiographs of the right foot dated 12/26/2020. The skeletal structures are osteopenic. No fracture is identified. There is no bony erosion or periostitis. Moderate to advanced osteoarthritic change is seen at the first metatarsophalangeal joint. Mild degenerative change is seen at the first interphalangeal joint. Mild soft tissue swelling is noted in the first toe. No soft tissue gas or radiodense foreign body is identified. IMPRESSION: 1. Soft tissue swelling with no acute osseous abnormality identified in the first toe. 2. Osteopenia and degenerative change as above. Electronically signed by: Arun Amador M.D. 10/31/2021 8:38 AM Chest X-Ray 11/01/21 10:47 XR chest 1V portable CLINICAL HISTORY: hypoxia. COMPARISON STUDY: 10/31/2021 TECHNIQUE: 1 view of the chest FINDINGS: Single frontal view of the chest demonstrates the cardiomediastinal silhouette to be within normal limits. Compared to previous examination, there has been partial resolution of mild central vascular congestion. There is evidence for minimal left basilar atelectasis. The lungs are clear of alveolar opacities. There is no evidence for pleural effusion. There is no evidence for vascular congestion. There is no acute osseous pathology. IMPRESSION: 1. Partial clearing of mild central vascular congestion. 2. Interval development of left basilar atelectasis. ACT 112: Negative or not required by law. Electronically signed by: Luke Barnhart M.D. 11/01/2021 11:17 AM
[2021-11-01] MEDS: PANTOprazole 40 MG in SYRINGE 0 ML IV SCH (21:54)
[2021-11-01] MEDS: cloNIDine HCL 0.1 MG TAB PO SCH (21:54)
[2021-11-01] MEDS ORDERED: COUGH DROP (SUGAR FREE) LOZ 24 LOZ/1 BOX BUCCAL PRN (23:31)
[2021-11-02 05:51] LABS: Basophils # (auto) 0.03 K/uL (0-0.2); Basophils % (auto) 0.4 %; Eosinophils # (auto) 0.39 K/uL (0-0.5); Eosinophils % (auto) 5.1 %; Hematocrit (blood only) 27.4 % (37-47); Hemoglobin 8.9 g/dL (12.0-16.0); Immature Granulocytes # (auto) 0.01 K/uL (0.00-0.02); Immature Granulocytes % (auto) 0.1 %; Lymphocytes # (auto) 1.16 K/uL (1.2-3.4); Lymphocytes % (auto) 15.3 %; Mean Corpuscular Hemoglobin 25.5 pg (25-34); Mean Corpuscular Hgb Conc 32.5 g/dL (32-36); Mean Corpuscular Volume 78.5 fL (80-100); Mean Platelet Volume 11.7 fL (7.4-10.4); Monocytes # (auto) 0.78 K/uL (0.11-0.59); Monocytes % (auto) 10.3 %; Neutrophils # (auto) 5.23 K/uL (1.4-6.5); Neutrophils % (auto) 68.8 %; Platelet Count 320 K/uL (130-400); RDW Coefficient of Variation 16.5 % (11.5-14.5); RDW Standard Deviation 47.3 fL (36.4-46.3); Red Blood Count 3.49 M/uL (4.2-5.4)
[2021-11-02 06:26] LABS: Albumin Globulin Ratio 1.5 (0.9-2); Albumin Level 3.4 gm/dl (3.4-5.0); Bilirubin,Total 0.5 mg/dl (0.2-1.0); Calcium 8.4 mg/dl (8.5-10.1); Creatinine Clr Calc Pharmacy 45.8 ml/min; Est GFR (African American) 67.7 ml/min; Est GFR (Non-African American) 58.5 ml/min; Globulin 2.2 gm/dl (2.5-4.0); Magnesium 1.5 mg/dl (1.7-2.4); Potassium 4.8 mmol/L (3.5-5.1); Total Protein 5.6 gm/dl (6.0-8.3)
--- NOTE | 2021-11-02 06:45 | Hospitalist Progress Note ---
Date of Service November 02, 2021 Assessment & Plan (1) LEV (acute kidney injury): Plan: Patient is a 81 yo female with PMHx of HFpEF, paroxysmal aFib, DM, hyponatremia, CAD, PAD, DM2, HTN, and hyperlipidemia admitted on 10/30 with LEV and electrolyte abnormalities secondary to hypovolemia/recent gastroenteritis. LEV (acute kidney injury) - Secondary to dehydration - IVF resuscitation - Potassium stabilized and now appropriate - Castañeda catheter in place, continue to monitor strict Is/Os - Nephrology following - Hold lisinopril, spironolactone, metformin Hyponatremia,acute on chronic - previously intolerant to salt tabs - Hold spironolactone - follow BMP - Nephrology consulted: Serum sodium 120 mmol/L on presentation. -Serum sodium this AM 126 -Nephro to provide 1 dose of furosimide 20mg IV for concern of hypervolemia Acute blood Anemia,on chronic - heme positive stools in ED; ? GI bleed - s/p 2 units PRBC 10/30 - 10/31 - continue protonix BID IV - Monitor H&H q12h - Hold Eliquis - GI consult: recommended empiric management with IV PPI, holding Eliquis, and proceeding with upper endoscopy tomorrow. - EGD today notable for gastritis with patchy submucosal hemorrhage Elevated liver enzymes: - procal negative - CT abdomen and pelvis without acute cause interpreted - Hold Amiodarone - Will continue to trend - GI consulted. Recommend: abnormal liver tests may be related to medication side effects or perhaps an episode of hepatic ischemia. Hepatitis viruses need to be ruled out -- Hepatitis panel pending Recommend following serial liver tests, and viral serologies Hyperkalemia,resolved - Volume repleted with 2.5L of Saline in the EMD- effectively treated with HCO3 amp, D50, Insulin, CA gluconate - Continue to hold lisinopril, KCl supplement, and spironolactone Compensated Metabolic acidosis,resolved - Secondary likely to anemia, hypovolemia, and LEV as well as likely metformin associated - Lactate 1.8 - resuscitation as above Gastroenteritis - Leukocytosis at 13.6 on admission; likely reactive - Zofran prn - Stool cultures,pending Junctional bradycardia,resolved - Initial EKG in the ED w/ junctional bradycardia rhythm that quickly resolved with correction of underlying hyperkalemia - Monitored in ICU throughout 10/31 with no recurrent abnormal rhythm Demand Ischemia with h/o CAD: - hsTroponin 19 on admission; trending to peak (19.4 --> 20.6 --> 30.2) - Likely type II mismatch with anemia and hypovolemia and acidosis as well as LEV - Patient asymptomatic and specifically denies CP - Will stop trend unless patient becomes symptomatic Chronic heart failure with preserved ejection fraction (HFpEF): - spironolactone on hold. Paroxysmal atrial fibrillation: - Rate and rhythm controlled - hold Amiodarone for now PAD (peripheral artery disease),With fem-fem bypass - On admission, ASA and Eliquis at this time due to concern for bleed Type 2 diabetes mellitus with diabetic neuropathy, unspecified: - likely metformin associated acidosis, metformin on hold - BG AC/HS insulin protocol in ICU - Continue SSI Hypertension: - Amlodipine, Clonidine, Hydralazine resumed. Hyperlipemia:Continue statin FENGI: heart healthy, low sodium, DM, diet resumed per GI after EGD DVT PPx: on hold due to ?GIB Dispo: continue management in PCU Code status: FULL CODE (2) Hyperkalemia: (3) Gastroenteritis: (4) Anemia: (5) Elevated liver enzymes: (6) Hyponatremia: (7) Elevated troponin: (8) Metabolic acidosis: (9) GI bleed: (10) Bradycardia: (11) Acute on chronic heart failure with preserved ejection fraction (HFpEF): (12) Paroxysmal atrial fibrillation: Admission and Anticipated Discharge Date Admission Date: October 30, 2021 Supervising Physician Co-Signing Physician Notes Resident Physician Supervision Note: I independently interviewed and examined the patient and verified the yi history and physical, reviewed labs and image studies and agree with resident Dr. Wheeler findings and care plan. Subjective Patient evaluated at the bedside this morning. Noting over all improvement. Noted that SOB had improved. Denies any urinary symptoms other than frequency secondary to Lasix. Denies any fever, chills, SOB, chest pain, abdominal pain. States she has had bowel movements and has not noticed any bright red blood or dark and tarry stools. She understands she is to undergo EGD today for concerns of GI bleed. Review of Systems Review of Systems: All systems reviewed & are unremarkable except as noted in Subjective Physical Exam Physical Exam: GENERAL: No acute distress. Well developed and well nourished. Vital signs reviewed. EYES: EOMI. Anicteric sclerae. HENT: Moist mucous membranes. RESPIRATORY: Clear to auscultation bilaterally. No wheezing, rales, or rhonchi. CARDIOVASCULAR: Regular rate and rhythm. + murmur. ABDOMEN: Soft, non-tender and non-distended. Normal bowel sounds. EXTREMITIES: No edema. Non-tender. SKIN: Warm, dry. NEUROLOGIC: A/O x3. No focal neurological deficits. PSYCHIATRIC: Cooperative. Appropriate mood and affect. Results & Data Results & Data ([facility]) Vital Signs (Past 12 Hours) Vital Signs Temp Pulse Resp BP Pulse Ox 11/01/21 23:49 61 11/01/21 23:29 36.8 C 60 20 145/55 H 96 11/01/21 23:00 61 19 93 11/01/21 22:00 66 19 96 11/01/21 21:52 65 21 155/64 H 98 11/01/21 21:00 68 18 94 11/01/21 20:23 16 11/01/21 19:30 36.5 C 68 27 H 11/01/21 19:29 69 21 169/77 H 11/01/21 19:01 68 27 H 147/71 H 89 L 11/01/21 19:00 68 22 93 Resident Activity Tracking Resident Involvement: Resident Care Provided Care Provided: Adult Hospital Medicine
[2021-11-02] MEDS: INSULIN ASPART PER UNIT SC SCH ×4 (08:00→20:18)
[2021-11-02] MEDS: FERROUS SULFATE 325 MG TAB PO SCH ×2 (08:00→16:48)
[2021-11-02] MEDS: ATORVASTATIN 40 MG TAB PO SCH (08:00)
[2021-11-02] MEDS: POLYETHYLENE (MIRALAX) 17 GM PACK PO SCH ×2 (08:00→20:18)
[2021-11-02] MEDS: amLODIPine BESYLATE 5 MG TAB PO SCH (08:00)
[2021-11-02] MEDS: hydrALAZINE TAB 50 MG TAB PO SCH ×3 (08:00→20:17)
[2021-11-02] MEDS: PANTOprazole 40 MG in SYRINGE 0 ML IV SCH ×2 (08:13→20:23)
--- NOTE | 2021-11-02 08:23 | Nephrology Progress Note ---
Date of Service November 02, 2021 Assessment & Plan (1) LEV (acute kidney injury): Plan: * LEV due to dehydration, acute anemia in the setting of FLAQUITO/ARB therapy - resolved (2) Hyponatremia: Plan: * Serum sodium 125 mmol/L, Uosm > 200 this am * Will provide one dose Furosemide 20 mg IV x1 * PRP @ 1500 hrs today, PRP and Uosm in am (3) Hyperkalemia: Plan: * Corrected w/ medical management * Continue to hold lisinopril, KCl supplement, spironolactone (4) GI bleed: Plan: * FOBT+ in EMD * Apixaban held * s/p 2u PRBC since admission * Scheduled for EGD this am Admission and Anticipated Discharge Date Admission Date: October 30, 2021 Subjective Ms. Gould was evaluated in her hospital room this morning. She was A&O x3. She denied PENA or focal neurologic weakness. Her nausea and diarrhea have resolved. IVF were stopped yesterday morning. She is awaiting EGD Review of Systems Constitutional: no fever Eyes: no problem reported Ear, Nose, Mouth, Throat: no problem reported Respiratory: no cough and no dyspnea Cardiovascular: no chest pain, no palpitations and no edema Gastrointestinal: no abdominal pain Genitourinary: no dysuria and no hematuria Musculoskeletal: no back pain Integumentary: no rash Neurologic: no confusion Physical Exam Constitutional: not in distress Eyes: PERRL, conjunctivae normal, anicteric sclerae ENMT: external ear and nose normal, oropharynx normal Neck: trachea midline, no thyromegaly Respiratory: normal respiratory effort, lungs clear to auscultation Cardiovascular: RRR, no murmur, no edema Gastrointestinal (Abdomen): normal bowel sounds, soft, nontender, no hepatosplenomegaly Skin: no rashes, warm and dry Neurologic: awake; not confused Results & Data ([facility]) Vital Signs (Past 12 Hours) Vital Signs Temp Pulse Pulse Resp BP BP Pulse Ox 11/02/21 05:00 50 L 12 151/55 H 99 11/01/21 23:49 61 11/01/21 23:29 36.8 C 60 20 145/55 H 96 11/01/21 23:00 61 19 93 11/01/21 22:00 66 19 96 11/01/21 21:52 65 21 155/64 H 98 11/01/21 21:00 68 18 94 11/01/21 20:23 16 Laboratory Results Laboratory Tests 11/02/21 11/02/21 05:05 05:05 WBC 7.60 Hgb 8.9 L Hct 27.4 L Plt Count 320 Sodium 125 L Potassium 4.8 Chloride 95 L Carbon Dioxide 24 BUN 27 H Creatinine 0.93 Glucose 107 H Calcium 8.4 L PG Care Time/CCT Total # of Minutes Spent Total Time Spent with Patient: Total time spent is greater than 50% in coordination of care (as documented) at patient's floor/unit and/or counseling patient: Coding Level of Care Code 44419 Subseq Hosp Care Lvl 3 Diagnoses LEV (acute kidney injury) N17.9 Hyponatremia E87.1 Hyperkalemia E87.5 GI bleed K92.2
--- NOTE | 2021-11-02 08:35 | Gastroenterology Progress Note ---
Date of Service November 02, 2021 Assessment & Plan (1) GI bleed: Plan: GI bleeding: History and findings are consistent with chronic occult GI blood loss and resulting blood loss anemia consistent with iron deficiency anemia, source of GI bleeding obscure at this time. Plan is for EGD this afternoon., Patient has never had a colonoscopy or upper endoscopy. Will reevaluate need for colonoscopy while inpatient after EGD completed. Continue empiric management with IV PPI, holding Eliquis. Elevated liver enzymes: Abnormal liver tests may be related to medication side effects or perhaps an episode of hepatic ischemia. Hepatitis viruses need to be ruled out (pending results this morning). Recommend following serial liver tests, and viral serologies. ALT/AST improved this morning. Case reviewed with Dr. Lanier. Please refer to supervising physician addendum for further recommendations. I have spent 15 minutes of discrete time performing the activities of this visit which include but are not limited to review of the medical record, obtaining a history, physical exam, and entering information in the electronic record. (2) Chronic blood loss anemia: (3) Elevated liver enzymes: (4) Positive fecal occult blood test: Admission and Anticipated Discharge Date Admission Date: October 30, 2021 Supervising Physician Co-Signing Physician Notes I interviewed and examined the patient and reviewed the medical record, with the following observations: Subjective: Patient denies hematemesis, melena, hematochezia Physical Examination: holosystolic murmurm bilateral carotid bruits L>R Chart Review: No additional findings I agree with the assessment as outlined in this consultation, with the following observations: No significant new findings I agree with the plan of care as outlined in this consultation, with the following changes and/or additions: EGD planned As the supervising physician, I have spent 10 minutes of discrete time performing the activities of this consultation which include, but are not limited to, review of the medical record, obtaining a history, physical examination, and entering information into the electronic record. MARTINEZ Akhtar, has reported spending 15 minutes of discrete time with the activities of the consultation. Subjective The patient is awake this morning lying in bed and position of comfort. Reports overall she had a good night last night. She states her mouth is pretty dry this morning. She is wondering what time her procedure later today will be. Denies any current nausea or vomiting. Denies abdominal pain. No bowel movement so far today. Denies any fever or night sweats through the night. States she has a bit she will do the air conditioning. She remains n.p.o. Her contact lens molder is her daughter, Mamie. Review of Systems Review of Systems: All systems reviewed & are unremarkable except as noted in Subjective Physical Exam Constitutional: + ill appearing Respiratory: normal respiratory effort, lungs clear to auscultation Cardiovascular: RRR, no murmur, no edema Rate/Rhythm: regular rate and regular rhythm Heart Sounds: + murmur Vessels: + carotid bruit Gastrointestinal (Abdomen): normal bowel sounds, soft, nontender, no hepatosplenomegaly Inspection/Auscultation: abdomen normal to inspection and normal bowel sounds Percussion/Palpation: abdomen soft; abdomen nontender Neurologic: awake; not confused Psychiatric: Affect: + anxious affect Results & Data ([facility]) Vital Signs (Past 12 Hours) Vital Signs Temp Pulse Pulse Resp BP BP Pulse Ox 11/02/21 05:00 50 L 12 151/55 H 99 11/01/21 23:49 61 11/01/21 23:29 36.8 C 60 20 145/55 H 96 11/01/21 23:00 61 19 93 11/01/21 22:00 66 19 96 11/01/21 21:52 65 21 155/64 H 98 11/01/21 21:00 68 18 94 Laboratory Results Laboratory Results - last 24 hr 10/30/21 11/01/21 11/01/21 20:57 11:30 16:02 WBC RBC Hgb Hct MCV MCH MCHC RDW Std Deviation RDW Coeff of Alysa Plt Count MPV Immature Gran % (Auto) Neut % (Auto) Lymph % (Auto) [place] % (Auto) Eos % (Auto) Baso % (Auto) Neut # (Auto) Lymph # (Auto) [place] # (Auto) Eos # (Auto) Baso # (Auto) Immature Gran # (Auto) Sodium Potassium Chloride Carbon Dioxide Anion Gap BUN Creatinine Est Cr Clr Drug Dosing Est GFR ( Amer) Est GFR (Non-Af Amer) BUN/Creatinine Ratio Glucose POC Glucose 122 H 117 H Calcium Magnesium Total Bilirubin AST ALT Alkaline Phosphatase Total Protein Albumin Globulin Albumin/Globulin Ratio Urine Osmolality Hepatitis A IgM Ab Hep Bs Antigen Hep Bs Ag Confirmation Hep B Core IgM Ab Hepatitis C Ab (EIA) Hep C Ab Signal/Cutoff Crossmatch See Detail 11/01/21 11/02/21 11/02/21 21:02 05:05 05:05 WBC 7.60 RBC 3.49 L Hgb 8.9 L Hct 27.4 L MCV 78.5 L MCH 25.5 MCHC 32.5 RDW Std Deviation 47.3 H RDW Coeff of Alysa 16.5 H Plt Count 320 MPV 11.7 H Immature Gran % (Auto) 0.1 Neut % (Auto) 68.8 Lymph % (Auto) 15.3 [place] % (Auto) 10.3 Eos % (Auto) 5.1 Baso % (Auto) 0.4 Neut # (Auto) 5.23 Lymph # (Auto) 1.16 L [place] # (Auto) 0.78 H Eos # (Auto) 0.39 Baso # (Auto) 0.03 Immature Gran # (Auto) 0.01 Sodium 125 L Potassium 4.8 Chloride 95 L Carbon Dioxide 24 Anion Gap 6 BUN 27 H Creatinine 0.93 Est Cr Clr Drug Dosing 45.8 Est GFR ( Amer) 67.7 Est GFR (Non-Af Amer) 58.5 BUN/Creatinine Ratio 29.0 H Glucose 107 H POC Glucose 221 H Calcium 8.4 L Magnesium 1.5 L Total Bilirubin 0.5 D AST 52 H ALT 168 H Alkaline Phosphatase 82 Total Protein 5.6 L Albumin 3.4 Globulin 2.2 L Albumin/Globulin Ratio 1.5 Urine Osmolality Hepatitis A IgM Ab Hep Bs Antigen Hep Bs Ag Confirmation Hep B Core IgM Ab Hepatitis C Ab (EIA) Hep C Ab Signal/Cutoff Crossmatch 11/02/21 11/02/21 11/02/21 05:05 06:10 07:50 WBC RBC Hgb Hct MCV MCH MCHC RDW Std Deviation RDW Coeff of Alysa Plt Count MPV Immature Gran % (Auto) Neut % (Auto) Lymph % (Auto) [place] % (Auto) Eos % (Auto) Baso % (Auto) Neut # (Auto) Lymph # (Auto) [place] # (Auto) Eos # (Auto) Baso # (Auto) Immature Gran # (Auto) Sodium Potassium Chloride Carbon Dioxide Anion Gap BUN Creatinine Est Cr Clr Drug Dosing Est GFR ( Amer) Est GFR (Non-Af Amer) BUN/Creatinine Ratio Glucose POC Glucose 125 H Calcium Magnesium Total Bilirubin AST ALT Alkaline Phosphatase Total Protein Albumin Globulin Albumin/Globulin Ratio Urine Osmolality Pending Hepatitis A IgM Ab Pending Hep Bs Antigen Pending Hep Bs Ag Confirmation Pending Hep B Core IgM Ab Pending Hepatitis C Ab (EIA) Pending Hep C Ab Signal/Cutoff Pending Crossmatch Diagnostic Findings Chest X-Ray 11/01/21 10:47 XR chest 1V portable CLINICAL HISTORY: hypoxia. COMPARISON STUDY: 10/31/2021 TECHNIQUE: 1 view of the chest FINDINGS: Single frontal view of the chest demonstrates the cardiomediastinal silhouette to be within normal limits. Compared to previous examination, there has been partial resolution of mild central vascular congestion. There is evidence for minimal left basilar atelectasis. The lungs are clear of alveolar opacities. The re is no evidence for pleural effusion. There is no evidence for vascular congestion. There is no acute osseous pathology. IMPRESSION: 1. Partial clearing of mild central vascular congestion. 2. Interval development of left basilar atelectasis. ACT 112: Negative or not required by law. Electronically signed by: Luke Barnhart M.D. 11/01/2021 11:17 AM
--- NOTE | 2021-11-02 09:28 | Anesthesiology Consultation ---
Date of Service November 02, 2021 Assessment & Plan (1) Encounter for pre-operative examination: Chart Review Chart Review: Acceptable Risk for Surgery History Surgery Operation Date: 11/02/21 17:10 Proposed Procedures p Esophagogastroduodenoscopy Dr Yolande Lanier MD Height/Weight Height: 5 ft 3 in Weight: 69.4 kg Allergies Allergy/AdvReac Type Severity Reaction Status Date / Time fenofibrate AdvReac Intermediate INCREASED Verified 10/30/21 20:49 URINATION metoprolol AdvReac Intermediate VOMIT,DIARR Verified 10/30/21 20:49 HEA verapamil AdvReac Intermediate INCREASED Verified 10/30/21 20:49 URINATION valsartan AdvReac Mild Weakness Verified 10/30/21 20:49 Medications Home Medications Medication Instructions Recorded Confirmed Last Taken aspirin 81 mg tablet,delayed 81 mg PO HS 03/04/20 10/30/21 10/29/21 release clonidine HCl 0.1 mg tablet 0.2 mg PO HS 03/04/20 10/30/21 10/29/21 metformin 500 mg tablet,extended 1,000 mg PO BIDM 03/04/20 10/30/21 10/30/21 release 24 hr coenzyme Q10 100 mg capsule 100 mg PO QAM 12/01/20 10/30/21 10/30/21 (CoQ-10) fish, borage, flaxseed oils-omega 1 cap PO QDD 12/01/20 10/30/21 10/30/21 3,6,9 comb no.1 1,200 mg capsule ([place] 3-6-9) lisinopril 40 mg tablet (Zestril) 40 mg PO QAM 12/01/20 10/30/21 10/30/21 potassium chloride 10 mEq 10 meq PO DAILY PRN 12/01/20 10/30/21 10/30/21 tablet,extended release atorvastatin 40 mg tablet 40 mg PO QAM 02/26/21 10/30/21 10/30/21 multivitamin 1 tab PO QAM 02/26/21 10/30/21 10/30/21 ferrous sulfate 325 mg (65 mg 325 mg PO BID #60 tab 05/02/21 10/30/21 10/30/21 iron) tablet glimepiride 4 mg tablet 4 mg PO BID #60 tab 05/02/21 10/30/21 10/30/21 amiodarone 200 mg tablet 200 mg PO QAM 07/01/21 10/30/21 10/30/21 amlodipine 5 mg tablet 10 mg PO BID 07/01/21 10/30/21 10/30/21 apixaban 5 mg tablet (Eliquis) 5 mg PO BID 07/01/21 10/30/21 10/30/21 furosemide 20 mg tablet 20 mg PO QAM 07/01/21 10/30/21 10/30/21 hydralazine 100 mg tablet 100 mg PO TID 07/01/21 10/30/21 10/30/21 magnesium oxide 400 mg (241.3 mg 400 mg PO QAM 07/01/21 10/30/21 10/30/21 magnesium) tablet pantoprazole 40 mg tablet,delayed 40 mg PO DAILYBB 07/01/21 10/30/21 10/30/21 release spironolactone 25 mg tablet 50 mg PO QAM 07/01/21 10/30/21 10/30/21 Active Medications Generic Name Dose Route Start Last Admin Trade Name Freq PRN Reason Stop Dose Admin Amlodipine Besylate 10 mg 10/31/21 10:30 11/02/21 08:00 Amlodipine Besylate 5 Mg Tab PO 11/30/21 10:29 Not Given QAM AUNDREA Atorvastatin Calcium 40 mg 10/31/21 09:00 11/02/21 08:00 Atorvastatin 40 Mg Tab PO 11/30/21 08:59 Not Given QAM AUNDREA Clonidine HCl 0.2 mg 10/31/21 21:00 11/01/21 21:54 Clonidine Hcl 0.1 Mg Tab PO 11/30/21 20:59 0.2 mg HS AUNDREA Administration Ferrous Sulfate 325 mg 10/31/21 08:00 11/02/21 08:00 Ferrous Sulfate 325 Mg Tab PO 11/30/21 07:59 Not Given BIDM AUNDREA Hydralazine HCl 100 mg 10/31/21 14:00 11/02/21 08:00 Hydralazine Tab 50 Mg Tab PO 11/30/21 13:59 Not Given TID AUNDREA Pantoprazole Sodium 40 mg/ 10 mls @ 5 mls/min 11/01/21 21:00 11/02/21 08:13 Syringe IV 12/01/21 20:59 5 mls/min BID AUNDREA Administration Insulin Aspart 0 units 10/31/21 16:30 11/02/21 08:00 Insulin Aspart Per Unit SC 11/30/21 16:29 Not Given ACHS AUNDREA Menthol 1 charlene 11/01/21 23:31 11/01/21 23:42 Cough Drop (Sugar Free) Charlene 24 Charlene/1 Box BUCCAL 12/01/21 23:30 1 charlene UD PRN Administration Cough Polyethylene Glycol 17 gm 11/01/21 09:15 11/02/21 08:00 Polyethylene (Miralax) 17 Gm Pack PO 12/01/21 09:14 Not Given BID AUNDREA Past Medical History Medical History (Updated 11/02/21 @ 09:27 by Paul Gardner MD) LEV (acute kidney injury) Anemia Bradycardia CAD (coronary artery disease) CVA (cerebral vascular accident) (~2019) no deficits Hyperkalemia Hyperlipemia Hypertension Myocardial infarct, old follows with Dr. Mcpherson PAD (peripheral artery disease) Pneumonia hx S/P angiogram of extremity (02/02/21) Type 2 diabetes mellitus with diabetic neuropathy, unspecified NIDDM Past Family History Family History Other No family history of adverse response to anesthesia Past Surgical History Surgical History H/O removal of cyst right abdominal area History of bunionectomy of right great toe History of cardiac cath (~2018) History of heart artery stent (~2019) x1. at [facility]. Status post ORIF of fracture of ankle Social History Smoking Status: Former smoker tobacco type: cigarettes Hx Alcohol Use: No Alcohol type: wine alcohol intake frequency: holidays/special occasions only Hx Substance Use: No substance use type: does not use Physical Exam Vital Signs Last Vital Signs Temp 36.8 C 11/01/21 23:29 Pulse 50 L 11/02/21 05:00 Resp 12 11/02/21 05:00 BP 151/55 H 11/02/21 05:00 Pulse Ox 99 11/02/21 05:00 Testing Laboratory Results 11/02/21 05:05 11/02/21 05:05 PT 12.2 Seconds (9.0-12.0) H 10/30/21 19:29 INR 1.2 (0.9-1.1) H 10/30/21 19:29 Urine Color Yellow 10/30/21 23:20 Urine Appearance Clear (Clear) 10/30/21 23:20 Urine pH 6.0 (4.5-7.5) 10/30/21 23:20 Ur Specific [place] 1.012 (1.000-1.030) 10/30/21 23:20 Urine Protein Negative (Negative) 10/30/21 23:20 Urine Glucose (UA) Negative (Negative) 10/30/21 23:20 Urine Ketones Negative (Negative) 10/30/21 23:20 Urine Nitrite Negative (Negative) 10/30/21 23:20 Ur Leukocyte Esterase 3+ (Negative) H 10/30/21 23:20 Urine WBC (Auto) 10-30 /hpf (0-5) H 10/30/21 23:20 Urine RBC (Auto) 0-4 /hpf (0-4) 10/30/21 23:20 U Hyaline Cast (Auto) 1-5 /lpf (0-5) 10/30/21 23:20 U Epithel Cells (Auto) 10-20 /lpf (0-5) H 10/30/21 23:20 Urine Bacteria (Auto) Negative (Negative) 10/30/21 23:20 Blood Type B Positive 10/30/21 20:57 Antibody Screen NEGATIVE 10/30/21 20:57 10/30/21 23:20 Urine Culture - Final Urine,Straight Cath Klebsiella pneumoniae Escherichia coli 11/02/21 07:50 POC Glucose 125 H Echocardiogram Date: 05/18/21 EF: 65-70% LV Function: normal Other Findings: + LVH and + diastolic dysfunction Valvular Disease: + (mild) and + MR (mod to sev) elevated right sided pressures
[2021-11-02] MEDS ORDERED: FUROSEMIDE INJ 20 MG/2 ML VIAL IV ONE (09:44)
--- NOTE | 2021-11-02 15:15 | History & Physical Report ---
Date of Service November 02, 2021 Assessment & Plan (1) Chronic blood loss anemia: (2) Positive fecal occult blood test: Plan: Recommend proceed with diagnostic EGD for control of bleeding if needed Admission and Anticipated Discharge Date Admission Date: October 30, 2021 History of Present Illness Chief Complaint: Positive fecal occult blood test, and worsening chronic microcytic anemia Primary Care Provider: Peggy Leavitt DO 81 yo woman admitted to the hospital with multiple metabolic problems, found to have worsening chronic anemia requiring resuscitation with packed red blood cells, and a positive fecal occult blood test. Allergies Allergy/AdvReac Type Severity Reaction Status Date / Time fenofibrate AdvReac Intermediate INCREASED Verified 10/30/21 20:49 URINATION metoprolol AdvReac Intermediate VOMIT,DIARR Verified 10/30/21 20:49 HEA verapamil AdvReac Intermediate INCREASED Verified 10/30/21 20:49 URINATION valsartan AdvReac Mild Weakness Verified 10/30/21 20:49 Home Medications Medication Instructions Recorded Confirmed Type aspirin 81 mg tablet,delayed 81 mg PO HS 03/04/20 10/30/21 History release clonidine HCl 0.1 mg tablet 0.2 mg PO HS 03/04/20 10/30/21 History metformin 500 mg tablet,extended 1,000 mg PO BIDM 03/04/20 10/30/21 History release 24 hr coenzyme Q10 100 mg capsule 100 mg PO QAM 12/01/20 10/30/21 History (CoQ-10) fish, borage, flaxseed oils-omega 1 cap PO QDD 12/01/20 10/30/21 History 3,6,9 comb no.1 1,200 mg capsule ([place] 3-6-9) lisinopril 40 mg tablet (Zestril) 40 mg PO QAM 12/01/20 10/30/21 History potassium chloride 10 mEq 10 meq PO DAILY PRN 12/01/20 10/30/21 History tablet,extended release atorvastatin 40 mg tablet 40 mg PO QAM 02/26/21 10/30/21 History multivitamin 1 tab PO QAM 02/26/21 10/30/21 History ferrous sulfate 325 mg (65 mg 325 mg PO BID #60 tab 05/02/21 10/30/21 Rx iron) tablet glimepiride 4 mg tablet 4 mg PO BID #60 tab 05/02/21 10/30/21 Rx amiodarone 200 mg tablet 200 mg PO QAM 07/01/21 10/30/21 History amlodipine 5 mg tablet 10 mg PO BID 07/01/21 10/30/21 History apixaban 5 mg tablet (Eliquis) 5 mg PO BID 07/01/21 10/30/21 History furosemide 20 mg tablet 20 mg PO QAM 07/01/21 10/30/21 History hydralazine 100 mg tablet 100 mg PO TID 07/01/21 10/30/21 History magnesium oxide 400 mg (241.3 mg 400 mg PO QAM 07/01/21 10/30/21 History magnesium) tablet pantoprazole 40 mg tablet,delayed 40 mg PO DAILYBB 07/01/21 10/30/21 History release spironolactone 25 mg tablet 50 mg PO QAM 07/01/21 10/30/21 History Past Med/Surg History Medical History (Updated 11/02/21 @ 15:15 by Jairo Lanier MD) LEV (acute kidney injury) Anemia Bradycardia CAD (coronary artery disease) CVA (cerebral vascular accident) (~2018) no deficits Hyperkalemia Hyperlipemia Hypertension Myocardial infarct, old follows with Dr. Mcpherson PAD (peripheral artery disease) Pneumonia hx S/P angiogram of extremity (02/02/21) Type 2 diabetes mellitus with diabetic neuropathy, unspecified NIDDM Surgical History H/O removal of cyst right abdominal area History of bunionectomy of right great toe History of cardiac cath (~2018) History of heart artery stent (~2018) x1. at [facility]. 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 Beliefs That Will Affect Care: None marital status: / Current Living Situation: Alone Current Living Situation Comment: ranch style home current occupational status: retired How many Children do You have: 1 Other Information That Helps Us Care for You: No Feels Safe at Home: Yes Safety Concerns: Feels Safe At This Time Assistive Devices: None Review of Systems All systems reviewed & are unremarkable except as noted in Subjective Physical Exam Constitutional: Elderly, pale, chronically ill appearing Respiratory: normal respiratory effort, lungs clear to auscultation Cardiovascular: Rate/Rhythm: regular rate and regular rhythm Heart Sounds: + murmur Vessels: + carotid bruit Gastrointestinal (Abdomen): Inspection/Auscultation: abdomen normal to inspection and normal bowel sounds Percussion/Palpation: abdomen soft; abdomen nontender Neurologic: No focal neurologic signs Psychiatric: Affect: + anxious affect ASA Classification ASA ASA3 Results & Data ([facility]) Vital Signs (Past 12 Hours) Vital Signs Temp Pulse Pulse Pulse Resp BP Pulse Ox 11/02/21 13:50 36.2 C L 58 L 20 166/72 H 98 11/02/21 12:02 36.8 C 66 18 141/61 H 97 11/02/21 11:06 54 L 11/02/21 08:00 36.5 C 53 L 16 134/51 L 91 11/02/21 05:00 50 L 12 151/55 H 99 Code Status & VTE Plan VTE Prophylaxis Plan VTE Prophylaxis will be ordered: Yes
[2021-11-02] MEDS ORDERED: LIDOCAINE 2% 2 ML VIAL/AMP(20MG/ML) INFIL ONE (15:38)
[2021-11-02] MEDS ORDERED: PROPOFOL IV EMULSION 10 MG/ML 20 ML VIAL IV ONE (15:38)
--- NOTE | 2021-11-02 15:50 | GI REPORT ---
Patient Name: Adri Gould Procedure Date: 11/02/2021 2:30 PM Date of : 1940 Admit Type: Inpatient Age: 81 Gender: Female Attending MD: Jairo Lanier MD Procedure: Upper GI endoscopy Providers: Jairo Lanier MD Referring MD: Sandra Carson Indications: Iron deficiency anemia, Occult blood in stool Medicines: Monitored Anesthesia Care Complications: No immediate complications. Estimated Blood Loss: Estimated blood loss: none. Procedure: Pre-Anesthesia Assessment: - Prior to the procedure, a History and Physical was performed, and patient medications and allergies were reviewed. The patient is competent. The risks and benefits of the procedure and the sedation options and risks were discussed with the patient. All questions were answered and informed consent was obtained. Patient identification and proposed procedure were verified by the physician and the nurse in the pre-procedure area. Mental Status Examination: alert and oriented. Airway Examination: normal oropharyngeal airway and neck mobility. Respiratory Examination: clear to auscultation. CV Examination: systolic murmur. Prophylactic Antibiotics: The patient does not require prophylactic antibiotics. Prior Anticoagulants: The patient has taken Eliquis (apixaban), last dose was 4 days prior to procedure. ASA Grade Assessment: III - A patient with severe systemic disease. After reviewing the risks and benefits, the patient was deemed in satisfactory condition to undergo the procedure. The anesthesia plan was to use monitored anesthesia care (MAC). Immediately prior to administration of medications, the patient was re-assessed for adequacy to receive sedatives. The heart rate, respiratory rate, oxygen saturations, blood pressure, adequacy of pulmonary ventilation, and response to care were monitored throughout the procedure. The physical status of the patient was re-assessed after the procedure. After obtaining informed consent, the endoscope was passed under direct vision. Throughout the procedure, the patient's blood pressure, pulse, and oxygen saturations were monitored continuously. The Endoscope was introduced through the mouth, and advanced to the third part of duodenum. The upper GI endoscopy was accomplished without difficulty. The patient tolerated the procedure well. Findings: The examined esophagus was normal. There is no endoscopic evidence of bleeding, areas of erosion, esophagitis or varices in the entire esophagus. The Z-line was regular and was found 40 cm from the incisors. Diffuse mild inflammation with patchy submucosal hemorrhage characterized by adherent blood, congestion (edema) and erythema was found in the entire examined stomach. There is no endoscopic evidence of bleeding, ulceration or erosion in the entire examined stomach. The examined duodenum was normal. Impression: - Normal esophagus. - Z-line regular, 40 cm from the incisors. - Gastritis with patchy submucosal hemorrhage. - Normal examined duodenum. - No specimens collected. Recommendation: - Return patient to [facility] for ongoing care. - Advance diet as tolerated. - Continue present medications. MD Jairo Goldberg MD 11/02/2021 3:49:59 PM This report has been signed electronically. Note Initiated On: 11/02/2021 2:30 PM Number of Addenda: 0 I attest to the content of the Intraoperative Record and orders documented therein, exceptions below {[id number]}
--- NOTE | 2021-11-02 15:52 | Post Operative Brief Note ---
Immediate Post Op Note v1 Date of Surgery November 02, 2021 Pre & Post Diagnosis Operation Date: 11/02/21 17:10 Pre-Op Diagnosis: HYPERKALEMIA, LEV, LOW HGB Post-Op Diagnosis: gastritis I identified the patient and participated in the time-out.: Yes Procedure Operation Date: 11/02/21 17:10 Actual Procedures p Esophagogastroduodenoscopy - Jairo Lanier MD Surgeon Jairo Lanier MD K 12 Principal none Estimated Blood Loss 0 Findings Consistent with Post-Op Diagnosis Diffuse gastritis with slight submucosal hemorrhage, no active bleeding. Recommend continue observation, advance diet as tolerated, continue PPI Complications none
--- NOTE | 2021-11-02 16:15 | Anesthesiology Progress Note ---
Date of Service November 02, 2021 Anesthesia Post Procedure Vital Signs Vital Signs: Temp Pulse Pulse Pulse Resp BP BP 11/02/21 16:10 58 L 14 154/69 H 11/02/21 15:55 14 L 60 14 127/59 L 11/02/21 15:40 58 L 16 145/44 H 11/02/21 13:50 36.2 C L 58 L 20 166/72 H 11/02/21 12:02 36.8 C 66 18 141/61 H 11/02/21 11:06 54 L 11/02/21 08:00 36.5 C 53 L 16 134/51 L 11/02/21 05:00 50 L 12 151/55 H 11/01/21 23:49 61 11/01/21 23:29 36.8 C 60 20 145/55 H 11/01/21 23:00 61 19 11/01/21 22:00 66 19 11/01/21 21:52 65 21 155/64 H 11/01/21 21:00 68 18 11/01/21 20:23 16 11/01/21 19:30 36.5 C 68 27 H 11/01/21 19:29 69 21 169/77 H 11/01/21 19:01 68 27 H 147/71 H 11/01/21 19:00 68 22 Pulse Ox 11/02/21 16:10 95 11/02/21 15:55 97 11/02/21 15:40 99 11/02/21 13:50 98 11/02/21 12:02 97 11/02/21 11:06 11/02/21 08:00 91 11/02/21 05:00 99 11/01/21 23:49 11/01/21 23:29 96 11/01/21 23:00 93 11/01/21 22:00 96 11/01/21 21:52 98 11/01/21 21:00 94 11/01/21 20:23 11/01/21 19:30 11/01/21 19:29 11/01/21 19:01 89 L 11/01/21 19:00 93 Transfer of Care Handoff Completed per policy Notes Mental Status: alert / awake / arousable and participated in evaluation Patient Amnestic to Procedure: Yes Nausea / Vomiting: adequately controlled Pain: adequately controlled Airway Patency, RR, SpO2: stable & adequate BP & HR: stable & adequate Hydration State: stable & adequate Anesthetic Complications: no major complications apparent and Pt Satisfied with anesthetic care
[2021-11-02] MEDS: MAGNESIUM SULFATE / D5W 1 GM/100 ML BAG IV SCH ×3 (16:48→21:20)
[2021-11-02 17:11] LABS: Uric Acid, Random Urine 14 mg/dL
[2021-11-02 17:12] LABS: BUN Creatinine Ratio 24.4 (10-20); Calcium 9.3 mg/dl (8.5-10.1); Creatinine Clr Calc Pharmacy 47.4 ml/min; Est GFR (African American) 70.5 ml/min; Est GFR (Non-African American) 60.8 ml/min
[2021-11-02] MEDS: AMIODARONE 200 MG TAB PO SCH (18:35)
[2021-11-02] MEDS: cloNIDine HCL 0.1 MG TAB PO SCH (20:18)
[2021-11-03 05:56] LABS: HBSAG NON-REACTIVE (NON-REACTIVE); Hepatitis A Antibody IgM NON-REACTIVE (NON-REACTIVE); Hepatitis B Core Antibody IgM NON-REACTIVE (NON-REACTIVE)
[2021-11-03 07:00] LABS: Basophils # (auto) 0.03 K/uL (0-0.2); Basophils % (auto) 0.5 %; Eosinophils # (auto) 0.27 K/uL (0-0.5); Eosinophils % (auto) 4.9 %; Hematocrit (blood only) 29.2 % (37-47); Hemoglobin 9.7 g/dL (12.0-16.0); Immature Granulocytes # (auto) 0.01 K/uL (0.00-0.02); Immature Granulocytes % (auto) 0.2 %; Lymphocytes # (auto) 0.94 K/uL (1.2-3.4); Lymphocytes % (auto) 16.9 %; Mean Corpuscular Hemoglobin 25.4 pg (25-34); Mean Corpuscular Hgb Conc 33.2 g/dL (32-36); Mean Corpuscular Volume 76.4 fL (80-100); Mean Platelet Volume 10.7 fL (7.4-10.4); Monocytes # (auto) 0.67 K/uL (0.11-0.59); Monocytes % (auto) 12.1 %; Neutrophils # (auto) 3.64 K/uL (1.4-6.5); Neutrophils % (auto) 65.4 %; Platelet Count 344 K/uL (130-400); RDW Coefficient of Variation 16.4 % (11.5-14.5); RDW Standard Deviation 44.9 fL (36.4-46.3); Red Blood Count 3.82 M/uL (4.2-5.4); White Blood Count 5.56 K/uL (4.8-10.8)
[2021-11-03 07:50] LABS: Albumin Level 3.5 gm/dl (3.4-5.0); Bilirubin,Total 0.4 mg/dl (0.2-1.0); Calcium 8.9 mg/dl (8.5-10.1); Potassium 4.3 mmol/L (3.5-5.1)
[2021-11-03 07:57] LABS: Albumin Globulin Ratio 1.5 (0.9-2); BUN Creatinine Ratio 25.6 (10-20); Creatinine Clr Calc Pharmacy 51.5 ml/min; Est GFR (African American) 78.9 ml/min; Est GFR (Non-African American) 68.1 ml/min; Globulin 2.4 gm/dl (2.5-4.0); Total Protein 5.9 gm/dl (6.0-8.3)
[2021-11-03] MEDS: INSULIN ASPART PER UNIT SC SCH ×4 (08:26→19:58)
[2021-11-03] MEDS: PANTOprazole 40 MG in SYRINGE 0 ML IV SCH ×2 (08:41→19:54)
[2021-11-03] MEDS: amLODIPine BESYLATE 5 MG TAB PO SCH (08:44)
[2021-11-03] MEDS: POLYETHYLENE (MIRALAX) 17 GM PACK PO SCH ×2 (08:44→19:54)
[2021-11-03] MEDS: hydrALAZINE TAB 50 MG TAB PO SCH ×3 (08:44→19:54)
[2021-11-03] MEDS: AMIODARONE 200 MG TAB PO SCH (08:45)
[2021-11-03] MEDS: FERROUS SULFATE 325 MG TAB PO SCH ×2 (08:45→17:10)
[2021-11-03] MEDS: ATORVASTATIN 40 MG TAB PO SCH (08:46)
--- NOTE | 2021-11-03 10:26 | Nephrology Progress Note ---
Date of Service November 03, 2021 Assessment & Plan (1) LEV (acute kidney injury): Plan: 81-year-old female with PMH of HTN, DM, CAD, PVD, A fib with RVR on NOAC, HFpEF, chronic hyponatremia, admitted to hospital with generalized weakness and fatigue after having few days of vomiting and diarrhea. on admission she was noted to have LEV, creatinine above 3, potassium was 7 we junctional bradycardia rhythm as well as hyponatremia. she was also noted to have significant drop in her hemoglobin requiring blood transfusion. Potassium eventually improved with normalization of EKG abnormality after receiving insulin, dextrose, bicarbonate and calcium gluconate. Sodium was initially 120 rapidly corrected to 130 in less than 12 hours requiring DDAVP. Received 2 doses of DDAVP and Lasix and eventually sodium improved yesterday to 125 and slowly improved to 128 today. LEV resolved and creatinine back to baseline hyperkalemia resolved. Had EGD yesterday showing diffuse gastritis with slight submucosal hemorrhage, no active bleeding.She was continued on PPI and diet was advanced which she has been tolerating well. Overall clinically improved and doing much better, AK and hyperkalemia resolved, sodium slowly improving up to 128. She has been feeling well. Blood pressure, volume status acceptable. -- Encouraged to maintain p.o. intake, no other intervention for hyponatremia needed at this time, expect sodium to slowly improve. Will follow. (2) Hyponatremia: Plan: * Serum sodium 125 mmol/L, Uosm > 200 this am * Will provide one dose Furosemide 20 mg IV x1 * PRP @ 1500 hrs today, PRP and Uosm in am (3) Hyperkalemia: Plan: * Corrected w/ medical management * Continue to hold lisinopril, KCl supplement, spironolactone (4) GI bleed: Plan: * FOBT+ in EMD * Apixaban held * s/p 2u PRBC since admission * Scheduled for EGD this am Admission and Anticipated Discharge Date Admission Date: October 30, 2021 Harjinder Rush was seen and examined in her room this morning. Overall she has been feeling well, denies any symptoms. LEV resolved and renal function back to normal with creatinine 0.8. Hyperkalemia resolved. Sodium slowly improving up to 128 this morning. Had EGD yesterday showing gastritis. Review of Systems Review of Systems: Detailed review of system was otherwise unremarkable. Physical Exam Constitutional: WD/WN, vitals as above no acute distress Eyes: + anicteric sclerae Respiratory: no respiratory distress Auscultation: lungs clear to auscultation bilaterally Cardiovascular: Rate/Rhythm: regular rate and regular rhythm Extremities: no edema Skin: no rashes Neurologic: no focal motor deficits Psychiatric: Orientation: alert and oriented x 3 Results & Data ([facility]) Vital Signs (Past 12 Hours) Vital Signs Temp Pulse Pulse Resp BP Pulse Ox 11/03/21 08:42 36.7 C 53 L 18 138/52 L 98 11/03/21 07:15 49 L 11/03/21 03:48 36.4 C L 52 L 18 139/56 L 93 11/02/21 23:25 36.4 C L 55 L 18 158/82 H 97 11/02/21 22:55 55 L PG Care Time/CCT Total # of Minutes Spent Total Time Spent with Patient: Total time spent is greater than 50% in coordination of care (as documented) at patient's floor/unit and/or counseling patient: Coding Level of Care Code 36465 Subseq Hosp Care Lvl 2 Diagnoses LEV (acute kidney injury) N17.9 Hyponatremia E87.1 Hyperkalemia E87.5 GI bleed K92.2
[2021-11-03 10:54] LABS: Ferritin 48.5 ng/ml (8-388)
--- NOTE | 2021-11-03 11:22 | Gastroenterology Progress Note ---
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 Plan: Impression is no significant GI bleeding demonstrated since admission to the hospital. There is diffuse gastritis likely secondary to aspirin gastropathy, awaiting biopsies to check for H pylori. No bleeding site identified in the u pper GI tract. Diet should be advanced and aspirin and Eliquis resumed. Recommend daily therapeutic dose PPI as long as she is taking aspirin, and avoidance of all other NSAIDs. Recommend elective colonoscopy examination. Discussed with the patient and all questions answered. Admission and Anticipated Discharge Date Admission Date: October 30, 2021 Subjective This morning Ms. Gould has no digestive complaints, denies anorexia, dysphagia, hematemesis, nausea, vomiting, diarrhea, hematochezia, melena, tolerated breakfast without difficulty. No objective evidence of GI bleeding since endoscopy yesterday Review of Systems Review of Systems: All systems reviewed & are unremarkable except as noted in Subjective Physical Exam Constitutional: In no distress Respiratory: normal respiratory effort, lungs clear to auscultation Cardiovascular: Rate/Rhythm: regular rate and regular rhythm Heart Sounds: + murmur Vessels: + carotid bruit Gastrointestinal (Abdomen): normal bowel sounds, soft, nontender, no hepatosplenomegaly Neurologic: No focal neurologic signs Psychiatric: A+Ox3, euthymic affect Results & Data ([facility]) Vital Signs (Past 12 Hours) Vital Signs Temp Pulse Pulse Resp BP Pulse Ox 11/03/21 08:42 36.7 C 53 L 18 138/52 L 98 11/03/21 07:15 49 L 11/03/21 03:48 36.4 C L 52 L 18 139/56 L 93 11/02/21 23:25 36.4 C L 55 L 18 158/82 H 97 Laboratory Results 11/03/21 11/03/21 11/03/21 Range/Units 07:26 06:26 06:26 WBC (4.8-10.8) K/uL RBC (4.2-5.4) M/uL Hgb (12.0-16.0) g/dL Hct (37-47) % MCV (80-100) fL MCH (25-34) pg MCHC (32-36) g/dL RDW Std Deviation (36.4-46.3) fL RDW Coeff of Alysa (11.5-14.5) % Plt Count (130-400) K/uL MPV (7.4-10.4) fL Immature Gran % (Auto) % Neut % (Auto) % Lymph % (Auto) % [place] % (Auto) % Eos % (Auto) % Baso % (Auto) % Neut # (Auto) (1.4-6.5) K/uL Lymph # (Auto) (1.2-3.4) K/uL [place] # (Auto) (0.11-0.59) K/uL Eos # (Auto) (0-0.5) K/uL Baso # (Auto) (0-0.2) K/uL Immature Gran # (Auto) (0.00-0.02) K/uL Sodium (136-145) mmol/L Potassium (3.5-5.1) mmol/L Chloride (98-107) mmol/L Carbon Dioxide (21-32) mmol/L Anion Gap (3-11) BUN (6-23) mg/dl Creatinine (0.6-1.2) mg/dl Est Cr Clr Drug Dosing ml/min Est GFR ( Amer) ml/min Est GFR (Non-Af Amer) ml/min BUN/Creatinine Ratio (10-20) Glucose (70-99(Fasting)) mg/dl POC Glucose 116 H (70-99) mg/dl Osmolality 270 L (280-300) mOsm/kg Calcium (8.5-10.1) mg/dl Magnesium (1.7-2.4) mg/dl Iron 24 L (35-150) mcg/dl Unsaturated IBC 325 (155-355) mcg/dl Ferritin 48.5 (8-388) ng/ml Total Bilirubin (0.2-1.0) mg/dl AST (13-39) U/L ALT (7-52) U/L Alkaline Phosphatase (34-104) U/L Total Protein (6.0-8.3) gm/dl Albumin (3.4-5.0) gm/dl Globulin (2.5-4.0) gm/dl Albumin/Globulin Ratio (0.9-2) Ur Random Uric Acid mg/dL Hepatitis A IgM Ab (NON-REACTIVE) Hep Bs Antigen (NON-REACTIVE) Hep Bs Ag Confirmation Hep B Core IgM Ab (NON-REACTIVE) Hepatitis C Ab (EIA) (NON-REACTIVE) Hep C Ab Signal/Cutoff (<1.00) Crossmatch 11/03/21 11/03/21 11/02/21 Range/Units 06:26 06:26 20:13 WBC 5.56 (4.8-10.8) K/uL RBC 3.82 L (4.2-5.4) M/uL Hgb 9.7 L (12.0-16.0) g/dL Hct 29.2 L (37-47) % MCV 76.4 L (80-100) fL MCH 25.4 (25-34) pg MCHC 33.2 (32-36) g/dL RDW Std Deviation 44.9 (36.4-46.3) fL RDW Coeff of Alysa 16.4 H (11.5-14.5) % Plt Count 344 (130-400) K/uL MPV 10.7 H (7.4-10.4) fL Immature Gran % (Auto) 0.2 % Neut % (Auto) 65.4 % Lymph % (Auto) 16.9 % [place] % (Auto) 12.1 % Eos % (Auto) 4.9 % Baso % (Auto) 0.5 % Neut # (Auto) 3.64 (1.4-6.5) K/uL Lymph # (Auto) 0.94 L (1.2-3.4) K/uL [place] # (Auto) 0.67 H (0.11-0.59) K/uL Eos # (Auto) 0.27 (0-0.5) K/uL Baso # (Auto) 0.03 (0-0.2) K/uL Immature Gran # (Auto) 0.01 (0.00-0.02) K/uL Sodium 128 L (136-145) mmol/L Potassium 4.3 (3.5-5.1) mmol/L Chloride 95 L (98-107) mmol/L Carbon Dioxide 25 (21-32) mmol/L Anion Gap 8 (3-11) BUN 21 (6-23) mg/dl Creatinine 0.82 (0.6-1.2) mg/dl Est Cr Clr Drug Dosing 51.5 ml/min Est GFR ( Amer) 78.9 ml/min Est GFR (Non-Af Amer) 68.1 ml/min BUN/Creatinine Ratio 25.6 H (10-20) Glucose 118 H (70-99(Fasting)) mg/dl POC Glucose 165 H (70-99) mg/dl Osmolality (280-300) mOsm/kg Calcium 8.9 (8.5-10.1) mg/dl Magnesium 2.0 (1.7-2.4) mg/dl Iron (35-150) mcg/dl Unsaturated IBC (155-355) mcg/dl Ferritin (8-388) ng/ml Total Bilirubin 0.4 (0.2-1.0) mg/dl AST 36 (13-39) U/L ALT 144 H (7-52) U/L Alkaline Phosphatase 91 (34-104) U/L Total Protein 5.9 L (6.0-8.3) gm/dl Albumin 3.5 (3.4-5.0) gm/dl Globulin 2.4 L (2.5-4.0) gm/dl Albumin/Globulin Ratio 1.5 (0.9-2) Ur Random Uric Acid mg/dL Hepatitis A IgM Ab (NON-REACTIVE) Hep Bs Antigen (NON-REACTIVE) Hep Bs Ag Confirmation Hep B Core IgM Ab (NON-REACTIVE) Hepatitis C Ab (EIA) (NON-REACTIVE) Hep C Ab Signal/Cutoff (<1.00) Crossmatch 11/02/21 11/02/21 11/02/21 Range/Units 16:47 16:34 11:26 WBC (4.8-10.8) K/uL RBC (4.2-5.4) M/uL Hgb (12.0-16.0) g/dL Hct (37-47) % MCV (80-100) fL MCH (25-34) pg MCHC (32-36) g/dL RDW Std Deviation (36.4-46.3) fL RDW Coeff of Alysa (11.5-14.5) % Plt Count (130-400) K/uL MPV (7.4-10.4) fL Immature Gran % (Auto) % Neut % (Auto) % Lymph % (Auto) % [place] % (Auto) % Eos % (Auto) % Baso % (Auto) % Neut # (Auto) (1.4-6.5) K/uL Lymph # (Auto) (1.2-3.4) K/uL [place] # (Auto) (0.11-0.59) K/uL Eos # (Auto) (0-0.5) K/uL Baso # (Auto) (0-0.2) K/uL Immature Gran # (Auto) (0.00-0.02) K/uL Sodium 127 L (136-145) mmol/L Potassium 4.0 (3.5-5.1) mmol/L Chloride 92 L (98-107) mmol/L Carbon Dioxide 27 (21-32) mmol/L Anion Gap 8 (3-11) BUN 22 (6-23) mg/dl Creatinine 0.90 (0.6-1.2) mg/dl Est Cr Clr Drug Dosing 47.4 ml/min Est GFR ( Amer) 70.5 ml/min Est GFR (Non-Af Amer) 60.8 ml/min BUN/Creatinine Ratio 24.4 H (10-20) Glucose 125 H (70-99(Fasting)) mg/dl POC Glucose 151 H 127 H (70-99) mg/dl Osmolality (280-300) mOsm/kg Calcium 9.3 (8.5-10.1) mg/dl Magnesium (1.7-2.4) mg/dl Iron (35-150) mcg/dl Unsaturated IBC (155-355) mcg/dl Ferritin (8-388) ng/ml Total Bilirubin (0.2-1.0) mg/dl AST (13-39) U/L ALT (7-52) U/L Alkaline Phosphatase (34-104) U/L Total Protein (6.0-8.3) gm/dl Albumin (3.4-5.0) gm/dl Globulin (2.5-4.0) gm/dl Albumin/Globulin Ratio (0.9-2) Ur Random Uric Acid mg/dL Hepatitis A IgM Ab (NON-REACTIVE) Hep Bs Antigen (NON-REACTIVE) Hep Bs Ag Confirmation Hep B Core IgM Ab (NON-REACTIVE) Hepatitis C Ab (EIA) (NON-REACTIVE) Hep C Ab Signal/Cutoff (<1.00) Crossmatch 11/02/21 10/31/21 10/30/21 Range/Units 05:05 07:40 20:57 WBC (4.8-10.8) K/uL RBC (4.2-5.4) M/uL Hgb (12.0-16.0) g/dL Hct (37-47) % MCV (80-100) fL MCH (25-34) pg MCHC (32-36) g/dL RDW Std Deviation (36.4-46.3) fL RDW Coeff of Alysa (11.5-14.5) % Plt Count (130-400) K/uL MPV (7.4-10.4) fL Immature Gran % (Auto) % Neut % (Auto) % Lymph % (Auto) % [place] % (Auto) % Eos % (Auto) % Baso % (Auto) % Neut # (Auto) (1.4-6.5) K/uL Lymph # (Auto) (1.2-3.4) K/uL [place] # (Auto) (0.11-0.59) K/uL Eos # (Auto) (0-0.5) K/uL Baso # (Auto) (0-0.2) K/uL Immature Gran # (Auto) (0.00-0.02) K/uL Sodium (136-145) mmol/L Potassium (3.5-5.1) mmol/L Chloride (98-107) mmol/L Carbon Dioxide (21-32) mmol/L Anion Gap (3-11) BUN (6-23) mg/dl Creatinine (0.6-1.2) mg/dl Est Cr Clr Drug Dosing ml/min Est GFR ( Amer) ml/min Est GFR (Non-Af Amer) ml/min BUN/Creatinine Ratio (10-20) Glucose (70-99(Fasting)) mg/dl POC Glucose (70-99) mg/dl Osmolality (280-300) mOsm/kg Calcium (8.5-10.1) mg/dl Magnesium (1.7-2.4) mg/dl Iron (35-150) mcg/dl Unsaturated IBC (155-355) mcg/dl Ferritin (8-388) ng/ml Total Bilirubin (0.2-1.0) mg/dl AST (13-39) U/L ALT (7-52) U/L Alkaline Phosphatase (34-104) U/L Total Protein (6.0-8.3) gm/dl Albumin (3.4-5.0) gm/dl Globulin (2.5-4.0) gm/dl Albumin/Globulin Ratio (0.9-2) Ur Random Uric Acid 14 mg/dL Hepatitis A IgM Ab NON-REACTIVE (NON-REACTIVE) Hep Bs Antigen NON-REACTIVE (NON-REACTIVE) Hep Bs Ag Confirmation TNP Hep B Core IgM Ab NON-REACTIVE (NON-REACTIVE) Hepatitis C Ab (EIA) NON-REACTIVE (NON-REACTIVE) Hep C Ab Signal/Cutoff 0.01 (<1.00) Crossmatch See Detail
--- NOTE | 2021-11-03 15:14 | Hospitalist Progress Note ---
Date of Service November 03, 2021 Assessment & Plan (1) LEV (acute kidney injury): Plan: Patient is a 81 yo female with PMHx of HFpEF, paroxysmal aFib, DM, hyponatremia, CAD, PAD, DM2, HTN, and hyperlipidemia admitted on 10/30 with LEV and electrolyte abnormalities secondary to hypovolemia/recent gastroenteritis. LEV (acute kidney injury) -- resolved - Pre-renal origin, improved with IVF resuscitation - Potassium level elevated on admission, now normalized. Resume home lisinopril + spironolactone 11/04 - Castañeda catheter in place, continue to monitor strict Is/Os - Nephrology following Hyponatremia,acute on chronic - Nephrology consulted: Serum sodium 120 mmol/L on presentation. 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 As for etiology of SIADH, no known [employer]RAZ[employer]RAWL[employer] TORCH disturbance. no known malignancy or recent surgery. no pulmonary disease. not on any provocative medication. idiopathic? - follow BMP Acute blood Anemia,on chronic - heme positive stools in ED, suggestive of acute GI bleed - hgb 9.7 today, up from 8.9. s/p 2 units pRBCs - continue protonix BID IV - MCV low, iron level low but normal ferritin. continue home oral iron supplement - Monitor H&H qam - Hold Eliquis - GI consult: EGD done 11/01/21 showing diffuse gastritis with patchy submucosal hemorrhage. Plan to undergo colonoscopy on 11/06/[address] Lanier. Liquid diet started per GI request. Asymptomatic Bacteria - Urine culture from 10/30 growing pearson-sensitive ecoli and Klebsiella - WBC normal - patient denies urinary symptoms, recommend against abx treatment Elevated liver enzymes: - AST normalized, ALT 144, down from 168. - hepatitis panel negative. - GI consulted: abnormal liver tests may berelated to medication side effects (eg amiodarone) or perhaps an episode of hepatic ischemia. Hyperkalemia,resolved - Volume repleted with 2.5L of Saline in the EMD- effectively treated with HCO3 amp, D50, Insulin, CA gluconate - Continue to hold lisinopril, KCl supplement, and spironolactone Compensated Metabolic acidosis,resolved - Secondary likely to anemia, hypovolemia, and LEV as well as likely metformin associated - Lactate 1.8 - resuscitation as above Junctional bradycardia,resolved - Initial EKG in the ED w/ junctional bradycardia rhythm that quickly resolved with correction of underlying hyperkalemia - Monitored in ICU throughout 10/31 with no recurrent abnormal rhythm Demand Ischemia with h/o CAD: - hsTroponin 19 on admission; trending to peak (19.4 --> 20.6 --> 30.2) - Likely type II mismatch with anemia and hypovolemia and acidosis as well as LEV - Patient asymptomatic and specifically denies CP - Will stop trend unless patient becomes symptomatic Chronic heart failure with preserved ejection fraction (HFpEF): - spironolactone and lisinopril on hold due to hyperkalemia - continue home dose lasix; hold KCL supplement due to hyperkalemia Paroxysmal atrial fibrillation: - Rate and rhythm controlled - continue amiodarone - hold Eliquis due to active bleed PAD (peripheral artery disease),With fem-fem bypass - On admission, ASA and Eliquis at this time due to concern for bleed Type 2 diabetes mellitus with diabetic neuropathy, unspecified: - likely metformin associated acidosis, metformin on hold - BG AC/HS insulin protocol - Continue SSI Hypertension: - Amlodipine, Clonidine, Hydralazine resumed. Hyperlipemia:Continue statin FENGI: heart healthy, low sodium, DM, clear liquid in advance of colonoscopy on 11/06/21 DVT PPx: on hold due to acute bleed. SCDs Dispo: Med/tele. PT/OT ordered Code status: FULL CODE (2) Hyperkalemia: (3) Gastroenteritis: (4) Anemia: (5) Elevated liver enzymes: (6) Hyponatremia: (7) Elevated troponin: (8) Metabolic acidosis: (9) GI bleed: (10) Bradycardia: (11) Acute on chronic heart failure with preserved ejection fraction (HFpEF): (12) Paroxysmal atrial fibrillation: Admission and Anticipated Discharge Date Admission Date: October 30, 2021 Supervising Physician Co-Signing Physician Notes Resident Physician Supervision Note: I independently interviewed and examined the patient and verified the yi history and physical, reviewed labs and image studies and agree with resident Dr. Reed findings and care plan. Subjective no acute events overnight. When discussing her GI bleed, patient reports no knowledge of being on a blood thinner. She says she lives alone in an apartment complex for elderly - she has an in-home health scheduler come in 3x per week. Review of Systems Review of Systems: All systems reviewed & are unremarkable except as noted in HPI & below Physical Exam Constitutional: WD/WN, vitals as above cooperative; no acute distress Eyes: + anicteric sclerae ENMT: external ear and nose normal, oropharynx normal Neck: normal visual inspection and trachea midline Respiratory: normal respiratory effort, lungs clear to auscultation Cardiovascular: Rate/Rhythm: regular rhythm and + bradycardic Heart Sounds: normal S1, normal S2 and + murmur (systolic ejection murmur ) Chest (Breasts): Chest: + vascular access device or port (R chest ) Gastrointestinal (Abdomen): normal bowel sounds, soft, nontender, no hepatosplenomegaly Musculoskeletal: Head/Neck/Chest: normocephalic and head atraumatic Skin: no rashes, warm and dry Neurologic: moves all extremities Psychiatric: A+Ox3, euthymic affect Results & Data Results & Data ([facility]) Vital Signs (Past 12 Hours) Vital Signs Temp Pulse Pulse Pulse Resp BP Pulse Ox 11/03/21 14:41 36.4 C L 54 L 18 153/73 H 97 11/03/21 12:23 36.4 C L 56 L 18 147/58 H 98 11/03/21 08:42 36.7 C 53 L 18 138/52 L 98 11/03/21 07:15 49 L 11/03/21 03:48 36.4 C L 52 L 18 139/56 L 93
[2021-11-03] MEDS: cloNIDine HCL 0.1 MG TAB PO SCH (19:54)
[2021-11-04 06:28] LABS: Basophils # (auto) 0.01 K/uL (0-0.2); Basophils % (auto) 0.2 %; Eosinophils # (auto) 0.21 K/uL (0-0.5); Eosinophils % (auto) 4.3 %; Hemoglobin 9.9 g/dL (12.0-16.0); Immature Granulocytes # (auto) 0.01 K/uL (0.00-0.02); Immature Granulocytes % (auto) 0.2 %; Lymphocytes % (auto) 20.5 %; Mean Corpuscular Hemoglobin 25.6 pg (25-34); Mean Corpuscular Volume 77.7 fL (80-100); Mean Platelet Volume 11.1 fL (7.4-10.4); Monocytes # (auto) 0.58 K/uL (0.11-0.59); Monocytes % (auto) 11.9 %; Neutrophils # (auto) 3.06 K/uL (1.4-6.5); Neutrophils % (auto) 62.9 %; Platelet Count 327 K/uL (130-400); RDW Coefficient of Variation 16.7 % (11.5-14.5); RDW Standard Deviation 46.6 fL (36.4-46.3); Red Blood Count 3.86 M/uL (4.2-5.4); White Blood Count 4.87 K/uL (4.8-10.8)
[2021-11-04 07:00] LABS: Albumin Globulin Ratio 1.5 (0.9-2); Albumin Level 3.5 gm/dl (3.4-5.0); BUN Creatinine Ratio 22.1 (10-20); Bilirubin,Total 0.4 mg/dl (0.2-1.0); Calcium 9.1 mg/dl (8.5-10.1); Creatinine Clr Calc Pharmacy 49.1 ml/min; Est GFR (African American) 74.5 ml/min; Est GFR (Non-African American) 64.3 ml/min; Globulin 2.4 gm/dl (2.5-4.0); Potassium 4.4 mmol/L (3.5-5.1); Total Protein 5.9 gm/dl (6.0-8.3)
[2021-11-04] MEDS: lisinopril 40 MG TAB PO SCH (08:23)
[2021-11-04] MEDS: FUROSEMIDE 20 MG TAB PO SCH (08:23)
[2021-11-04] MEDS: amLODIPine BESYLATE 5 MG TAB PO SCH (08:24)
[2021-11-04] MEDS: FERROUS SULFATE 325 MG TAB PO SCH ×2 (08:24→18:00)
[2021-11-04] MEDS: hydrALAZINE TAB 50 MG TAB PO SCH ×3 (08:24→21:35)
[2021-11-04] MEDS: AMIODARONE 200 MG TAB PO SCH (08:24)
[2021-11-04] MEDS: ATORVASTATIN 40 MG TAB PO SCH (08:24)
[2021-11-04] MEDS: POLYETHYLENE (MIRALAX) 17 GM PACK PO SCH ×2 (08:31→21:35)
[2021-11-04] MEDS: PANTOprazole 40 MG in SYRINGE 0 ML IV SCH ×2 (08:32→21:57)
[2021-11-04] MEDS: INSULIN ASPART PER UNIT SC SCH ×4 (09:00→21:38)
--- NOTE | 2021-11-04 09:11 | Hospitalist Progress Note ---
Date of Service November 04, 2021 Assessment & Plan (1) LEV (acute kidney injury): Plan: Patient is a 81 yo female with PMHx of HFpEF, paroxysmal aFib, DM, hyponatremia, CAD, PAD, DM2, HTN, and hyperlipidemia admitted on 10/30 with LEV and electrolyte abnormalities secondary to hypovolemia/recent gastroenteritis. LEV (acute kidney injury) -- resolved - Pre-renal origin, improved with IVF resuscitation - Potassium level elevated on admission, now normalized. Resume home lisinopril + spironolactone 11/04/21 - Nephrology following Hyponatremia,acute on chronic - Nephrology consulted: Serum sodium 120 mmol/L on presentation. -Serum sodium this AM 128 -Nephro to provide 1 dose of furosemide 20mg IV for concern of hypervolemia on 11/03/21 - serum osms 270, low - urine osms elevated at 490 - urine sodium 91 --> pattern consistent with SIADH. As for etiology of SIADH, no known [employer] disturbance. no known malignancy or recent surgery. no pulmonary disease. not on any provocative medication. idiopathic? - fluid restriction to 1500ml/day - follow BMP Acute blood Anemia,on chronic - heme positive stools in ED, suggestive of acute GI bleed - hgb 9.9 today, up from 9.7. Patient received 2 units of pRBCs while in house - continue protonix BID IV - MCV low, iron level low but normal ferritin. Continue home oral iron supplement - Monitor H&H qam - Hold Eliquis and ASA. Consideration should be given to risk/benefit of ASA + eliquis therapy. Eliquis is indicated due to paroxysmal afib. ASA is due to hx of CAD and LAMONTE placement in 2019. Recommend patient have discussion with PCP and garment manufacturing supervisor (Dr. Mcpherson) upon discharge regarding this regimen. - GI consult: EGD done 11/01/21 showing diffuse gastritis with patchy submucosal hemorrhage. Plan to undergo colonoscopy on 11/05/[address] Lanier. Liquid diet started per GI request. NPO after midnight. Asymptomatic Bacteria - Urine culture from 10/30 growing pearson-sensitive ecoli and Klebsiella - WBC normal - patient denies urinary symptoms, recommend against abx treatment Elevated liver enzymes: - AST normalized, ALT 102, down from 144. - hepatitis panel negative. - GI consulted: abnormal liver tests may berelated to medication side effects (eg amiodarone) or perhaps an episode of hepatic ischemia. Hyperkalemia,resolved - Volume repleted with 2.5L of Saline in the EMD- effectively treated with HCO3 amp, D50, Insulin, CA gluconate - Resume lisinopril and spironolactone Compensated Metabolic acidosis,resolved - Secondary likely to anemia, hypovolemia, and LEV as well as likely metformin associated - Lactate 1.8 - resuscitation as above Junctional bradycardia,resolved - Initial EKG in the ED w/ junctional bradycardia rhythm that quickly resolved with correction of underlying hyperkalemia - Monitored in ICU throughout 10/31 with no recurrent abnormal rhythm Demand Ischemia with h/o CAD: - hsTroponin 19 on admission; trending to peak (19.4 --> 20.6 --> 30.2) - Likely type II mismatch with anemia and hypovolemia and acidosis as well as LEV - Patient asymptomatic and specifically denies CP - Will stop trend unless patient becomes symptomatic Chronic heart failure with preserved ejection fraction (HFpEF): - spironolactone and lisinopril resumed - continue home dose lasix; hold KCL supplement due to hyperkalemia Paroxysmal atrial fibrillation: - Rate and rhythm controlled - continue amiodarone - hold Eliquis due to active bleed PAD (peripheral artery disease),With fem-fem bypass - On admission, ASA and Eliquis at this time due to concern for bleed Type 2 diabetes mellitus with diabetic neuropathy, unspecified: - likely metformin associated acidosis, metformin on hold - BG AC/HS insulin protocol - Continue SSI Hypertension: - Amlodipine, Clonidine, Hydralazine resumed. Hyperlipemia:Continue statin FENGI: heart healthy, low sodium, DM, clear liquid in advance of colonoscopy on 11/05/21. NPO at midnight. Fluid Restrict to 1500ml/day DVT PPx: on hold due to acute bleed. SCDs Dispo: Med/surg. PT/OT ordered Code status: FULL CODE (2) Hyperkalemia: (3) Gastroenteritis: (4) Anemia: (5) Elevated liver enzymes: (6) Hyponatremia: (7) Elevated troponin: (8) Metabolic acidosis: (9) GI bleed: (10) Bradycardia: (11) Acute on chronic heart failure with preserved ejection fraction (HFpEF): (12) Paroxysmal atrial fibrillation: Admission and Anticipated Discharge Date Admission Date: October 30, 2021 Supervising Physician Co-Signing Physician Notes Resident Physician Supervision Note: I independently interviewed and examined the patient and verified the yi history and physical, reviewed labs and image studies and agree with resident Dr. Reed findings and care plan. Subjective no acute events overnight. she is feeling well today. Review of Systems Review of Systems: All systems reviewed & are unremarkable except as noted in HPI & below Physical Exam Constitutional: WD/WN, vitals as above cooperative; no acute distress Eyes: + anicteric sclerae ENMT: external ear and nose normal, oropharynx normal Neck: normal visual inspection and trachea midline Respiratory: normal respiratory effort, lungs clear to auscultation Cardiovascular: Rate/Rhythm: regular rhythm and + bradycardic Heart Sounds: normal S1, normal S2 and + murmur (systolic ejection murmur ) Chest (Breasts): Chest: + vascular access device or port (R chest ) Gastrointestinal (Abdomen): normal bowel sounds, soft, nontender, no hepatosplenomegaly Musculoskeletal: Head/Neck/Chest: normocephalic and head atraumatic Skin: no rashes, warm and dry Neurologic: moves all extremities Psychiatric: A+Ox3, euthymic affect Results & Data Results & Data ([facility]) Vital Signs (Past 12 Hours) Vital Signs Temp Pulse Pulse Resp BP Pulse Ox 11/04/21 08:00 36.5 C 60 18 139/62 96 11/04/21 03:25 36.6 C 52 L 17 146/65 H 97 11/03/21 23:17 36.8 C 53 L 18 146/52 H 96 11/03/21 22:56 54 L Resident Activity Tracking Resident Involvement: Resident Care Provided Care Provided: Adult Hospital Medicine
--- NOTE | 2021-11-04 10:53 | Nephrology Progress Note ---
Date of Service November 04, 2021 Assessment & Plan (1) Hyponatremia: (2) LEV (acute kidney injury): (3) Hyperkalemia: Plan: 81-year-old female with PMH of HTN, DM, CAD, PVD, A fib with RVR on NOAC, HFpEF, chronic hyponatremia, admitted to hospital with generalized weakness and fatigue after having few days of vomiting and diarrhea. on admission she was noted to have LEV, creatinine above 3, potassium was 7 we junctional bradycardia rhythm as well as hyponatremia. she was also noted to have significant drop in her hemoglobin requiring blood transfusion. Potassium eventually improved with normalization of EKG abnormality after receiving insulin, dextrose, bicarbonate and calcium gluconate. Sodium was initially 120 rapidly corrected to 130 in less than 12 hours requiring DDAVP. Received 2 doses of DDAVP and Lasix and eventually sodium improved yesterday to 125 and slowly improved to 128 today. LEV resolved and creatinine back to baseline hyperkalemia resolved. Had EGD yesterday showing diffuse gastritis with slight submucosal hemorrhage, no active bleeding.She was continued on PPI and diet was advanced which she has been tolerating well. Overall clinically improved and doing much better, AK and hyperkalemia resolved, sodium slowly improving up to 128. She has been feeling well. Blood pressure, volume status acceptable. has chronic hyponatremia for last more than 2 years. she was on salt tablet before which was stopped at some point when sodium improved. -- change diet to normal salt -- restart on sodium chloride 1 g twice a day Will sign off. Admission and Anticipated Discharge Date Admission Date: October 30, 2021 Harjinder Rush was seen and examined in her room this morning. Overall she has been feeling well, denies any symptoms. LEV resolved and renal function back to normal with creatinine 0.8. Hyperkalemia resolved. Sodium staying relatively stable at 128 since yesterday Review of Systems Review of Systems: Detailed review of system was otherwise unremarkable. Physical Exam Constitutional: WD/WN, vitals as above no acute distress Eyes: + anicteric sclerae Respiratory: no respiratory distress Auscultation: lungs clear to auscultation bilaterally Cardiovascular: Rate/Rhythm: regular rate and regular rhythm Extremities: no edema Skin: no rashes Neurologic: no focal motor deficits Psychiatric: Orientation: alert and oriented x 3 Results & Data ([facility]) Vital Signs (Past 12 Hours) Vital Signs Temp Pulse Pulse Resp BP Pulse Ox 11/04/21 08:00 36.5 C 46 L 60 18 139/62 96 11/04/21 03:25 36.6 C 52 L 17 146/65 H 97 11/03/21 23:17 36.8 C 53 L 18 146/52 H 96 11/03/21 22:56 54 L PG Care Time/CCT Total # of Minutes Spent Total Time Spent with Patient: Total time spent is greater than 50% in coordination of care (as documented) at patient's floor/unit and/or counseling patient: Coding Level of Care Code 89441 Subseq Hosp Care Lvl 3 Diagnoses LEV (acute kidney injury) N17.9 Hyponatremia E87.1 Hyperkalemia E87.5
--- NOTE | 2021-11-04 11:18 | Gastroenterology Progress Note ---
Date of Service November 04, 2021 Assessment & Plan (1) Positive fecal occult blood test: (2) Chronic blood loss anemia: (3) Gastritis determined by endoscopy: (4) Gastropathy associated with nonsteroidal anti-inflammatory drug (NSAID): (5) Elevated liver enzymes: Plan: Improving spontaneously, hepatitis serologies and imaging negative, episode likely related to medication side effects or transient hepatic ischemia, recommend no action other than to follow serial liver tests, additional evaluation only if all testing does not return to normal in 8 weeks. Plan: No significant GI bleeding noted since admission, but evidence of occult bleeding noted, and worsening anemia consistent with chronic GI blood loss and requiring resuscitation with packed RBCs noted on admission. No colon examinations in the past. Plan to proceed with diagnostic colonoscopy tomorrow. The recommended procedure and preparation for the procedure were discussed with the patient, including the indications for examination and potential benefits, risks, alternatives, potential outcomes, and post procedure plans of care. All questions were addressed and answered, understanding was acknowledged, and consent was obtained Admission and Anticipated Discharge Date Admission Date: October 30, 2021 Subjective No complaints this morning, Ms. Gould denies chest pain, abdominal pain, nausea, vomiting, any overt bleeding. H/H stable post transfusion of packed RBCs. Potassium, BUN, Creatinine, all returned to normal levels, chronic hyponatremia, Na level has gradually returned to previous levels. No new or concerning lab findings this morning Review of Systems Review of Systems: All systems reviewed & are unremarkable except as noted in Subjective Physical Exam Constitutional: In no distress, she is alert and ambulatory in her room this morning Respiratory: normal respiratory effort, lungs clear to auscultation Cardiovascular: Heart Sounds: + murmur Vessels: + carotid bruit Regular bradycardia on exam, with rate <60/minute. Holosystolic murmur present, righ carotid bruit present Gastrointestinal (Abdomen): normal bowel sounds, soft, nontender, no hepatosplenomegaly Neurologic: No focal neurologic signs Results & Data ([facility]) Vital Signs (Past 12 Hours) Vital Signs Temp Pulse Pulse Resp BP Pulse Ox 11/04/21 08:00 36.5 C 46 L 60 18 139/62 96 11/04/21 03:25 36.6 C 52 L 17 146/65 H 97 11/03/21 23:17 36.8 C 53 L 18 146/52 H 96 Laboratory Results 11/04/21 11/04/21 11/04/21 Range/Units 07:29 05:53 05:53 WBC 4.87 (4.8-10.8) K/uL RBC 3.86 L (4.2-5.4) M/uL Hgb 9.9 L (12.0-16.0) g/dL Hct 30.0 L (37-47) % MCV 77.7 L (80-100) fL MCH 25.6 (25-34) pg MCHC 33.0 (32-36) g/dL RDW Std Deviation 46.6 H (36.4-46.3) fL RDW Coeff of Alysa 16.7 H (11.5-14.5) % Plt Count 327 (130-400) K/uL MPV 11.1 H (7.4-10.4) fL Immature Gran % (Auto) 0.2 % Neut % (Auto) 62.9 % Lymph % (Auto) 20.5 % [place] % (Auto) 11.9 % Eos % (Auto) 4.3 % Baso % (Auto) 0.2 % Neut # (Auto) 3.06 (1.4-6.5) K/uL Lymph # (Auto) 1.00 L (1.2-3.4) K/uL [place] # (Auto) 0.58 (0.11-0.59) K/uL Eos # (Auto) 0.21 (0-0.5) K/uL Baso # (Auto) 0.01 (0-0.2) K/uL Immature Gran # (Auto) 0.01 (0.00-0.02) K/uL Sodium 128 L (136-145) mmol/L Potassium 4.4 (3.5-5.1) mmol/L Chloride 97 L (98-107) mmol/L Carbon Dioxide 24 (21-32) mmol/L Anion Gap 7 (3-11) BUN 19 (6-23) mg/dl Creatinine 0.86 (0.6-1.2) mg/dl Est Cr Clr Drug Dosing 49.1 ml/min Est GFR ( Amer) 74.5 ml/min Est GFR (Non-Af Amer) 64.3 ml/min BUN/Creatinine Ratio 22.1 H (10-20) Glucose 137 H (70-99(Fasting)) mg/dl POC Glucose 157 H (70-99) mg/dl Calcium 9.1 (8.5-10.1) mg/dl Total Bilirubin 0.4 (0.2-1.0) mg/dl AST 20 (13-39) U/L ALT 102 H (7-52) U/L Alkaline Phosphatase 88 (34-104) U/L Total Protein 5.9 L (6.0-8.3) gm/dl Albumin 3.5 (3.4-5.0) gm/dl Globulin 2.4 L (2.5-4.0) gm/dl Albumin/Globulin Ratio 1.5 (0.9-2) 11/03/21 11/03/21 11/03/21 Range/Units 19:52 16:49 11:29 WBC (4.8-10.8) K/uL RBC (4.2-5.4) M/uL Hgb (12.0-16.0) g/dL Hct (37-47) % MCV (80-100) fL MCH (25-34) pg MCHC (32-36) g/dL RDW Std Deviation (36.4-46.3) fL RDW Coeff of Alysa (11.5-14.5) % Plt Count (130-400) K/uL MPV (7.4-10.4) fL Immature Gran % (Auto) % Neut % (Auto) % Lymph % (Auto) % [place] % (Auto) % Eos % (Auto) % Baso % (Auto) % Neut # (Auto) (1.4-6.5) K/uL Lymph # (Auto) (1.2-3.4) K/uL [place] # (Auto) (0.11-0.59) K/uL Eos # (Auto) (0-0.5) K/uL Baso # (Auto) (0-0.2) K/uL Immature Gran # (Auto) (0.00-0.02) K/uL Sodium (136-145) mmol/L Potassium (3.5-5.1) mmol/L Chloride (98-107) mmol/L Carbon Dioxide (21-32) mmol/L Anion Gap (3-11) BUN (6-23) mg/dl Creatinine (0.6-1.2) mg/dl Est Cr Clr Drug Dosing ml/min Est GFR ( Amer) ml/min Est GFR (Non-Af Amer) ml/min BUN/Creatinine Ratio (10-20) Glucose (70-99(Fasting)) mg/dl POC Glucose 129 H 169 H 154 H (70-99) mg/dl Calcium (8.5-10.1) mg/dl Total Bilirubin (0.2-1.0) mg/dl AST (13-39) U/L ALT (7-52) U/L Alkaline Phosphatase (34-104) U/L Total Protein (6.0-8.3) gm/dl Albumin (3.4-5.0) gm/dl Globulin (2.5-4.0) gm/dl Albumin/Globulin Ratio (0.9-2)
[2021-11-04] MEDS: SODIUM CHLORIDE 1 GM TABLET PO SCH ×2 (12:31→21:35)
[2021-11-04] MEDS: SPIRONOLACTONE 25 MG TAB PO SCH (12:31)
[2021-11-04] MEDS ORDERED: bisacodyL 5 MG TABEC PO ONE ×2 (13:00→22:32)
[2021-11-04] MEDS ORDERED: MAGNESIUM CITRATE 296 ML/BTL PO SCH (14:00)
[2021-11-04] MEDS: LAVAGE SOLUTION 4000ML PO SCH (17:22)
[2021-11-04 20:51] LABS: BUN Creatinine Ratio 20.2 (10-20); Calcium 9.1 mg/dl (8.5-10.1); Creatinine Clr Calc Pharmacy 42.9 ml/min; Est GFR (African American) 62.8 ml/min; Est GFR (Non-African American) 54.2 ml/min; Potassium 4.4 mmol/L (3.5-5.1)
[2021-11-04] MEDS ORDERED: MAGNESIUM CITRATE 296 ML/BTL PO STA (22:33)
[2021-11-04] MEDS ORDERED: METOCLOPRAMIDE HCL INJ 5 MG/ML 2 ML VIAL IV STA (22:34)
[2021-11-04] MEDS: cloNIDine HCL 0.1 MG TAB PO SCH (22:50)
[2021-11-05] MEDS ORDERED: Nursing to Pharmacy Communication SCH ×2 (05:00→16:30)
[2021-11-05] MEDS: LAVAGE SOLUTION 4000ML PO SCH (05:36)
[2021-11-05] MEDS: INSULIN ASPART PER UNIT SC SCH ×4 (05:55→21:00)
[2021-11-05 06:54] LABS: Basophils # (auto) 0.02 K/uL (0-0.2); Basophils % (auto) 0.4 %; Eosinophils # (auto) 0.15 K/uL (0-0.5); Eosinophils % (auto) 3.3 %; Hematocrit (blood only) 28.8 % (37-47); Hemoglobin 9.5 g/dL (12.0-16.0); Lymphocytes # (auto) 0.95 K/uL (1.2-3.4); Lymphocytes % (auto) 20.6 %; Mean Corpuscular Hemoglobin 25.6 pg (25-34); Mean Corpuscular Volume 77.6 fL (80-100); Mean Platelet Volume 10.4 fL (7.4-10.4); Monocytes # (auto) 0.53 K/uL (0.11-0.59); Monocytes % (auto) 11.5 %; Neutrophils # (auto) 2.96 K/uL (1.4-6.5); Neutrophils % (auto) 64.2 %; Platelet Count 329 K/uL (130-400); RDW Coefficient of Variation 17.4 % (11.5-14.5); RDW Standard Deviation 48.7 fL (36.4-46.3); Red Blood Count 3.71 M/uL (4.2-5.4); White Blood Count 4.61 K/uL (4.8-10.8)
[2021-11-05 07:17] LABS: Albumin Globulin Ratio 1.6 (0.9-2); Albumin Level 3.5 gm/dl (3.4-5.0); BUN Creatinine Ratio 19.4 (10-20); Bilirubin,Total 0.5 mg/dl (0.2-1.0); Creatinine Clr Calc Pharmacy 39.8 ml/min; Est GFR (African American) 59.9 ml/min; Est GFR (Non-African American) 51.7 ml/min; Globulin 2.2 gm/dl (2.5-4.0); Potassium 4.4 mmol/L (3.5-5.1); Total Protein 5.7 gm/dl (6.0-8.3)
[2021-11-05] MEDS ORDERED: MAGNESIUM CITRATE 296 ML/BTL PO STA (08:23)
--- NOTE | 2021-11-05 08:30 | Gastroenterology Progress Note ---
Date of Service November 05, 2021 Assessment & Plan (1) Gastropathy associated with nonsteroidal anti-inflammatory drug (NSAID): Plan: Elevated liver function testing: Improving spontaneously, hepatitis serologies and imaging negative, episode likely related to medication side effects or transient hepatic ischemia, recommend no action other than to follow serial liver tests, additional evaluation only if all testing does not return to normal in 8 weeks. Chronic blood loss anemia: No significant GI bleeding noted since admission, but evidence of occult bleeding noted, and worsening anemia consistent with chronic GI blood loss and requiring resuscitation with packed RBCs noted on admission. No colon examinations in the past. Plan to proceed with diagnostic colonoscopy today. Patient has had poor prep response so far. Will add additional bowel prep to current Colyte regimen including Dulcolax 10 mg po now, half bottle of Mag Citrate, Reglan 5mg IV and complete the second portion of the Colyte prep followed by 750 mL of clear liquids po by 10am. I have spoken to the nurse caring for the patient who verbalized understanding of plan. Case reviewed with Dr. Lanier. Please refer to supervising physician addendum for further recommendations. I have spent 20 minutes of discrete time performing the activities of this visit which include but are not limited to review of the medical record, obtaining a history, physical exam, and entering information in the electronic record. (2) Gastritis determined by endoscopy: (3) Positive fecal occult blood test: (4) Chronic blood loss anemia: (5) Elevated liver enzymes: Admission and Anticipated Discharge Date Admission Date: October 30, 2021 Supervising Physician Co-Signing Physician Notes I interviewed and examined the patient and reviewed the medical record, with the following observations: Subjective: Response to preparation has been slow, consistent with chronic constipation. She has been taking an iron supplement, which may interfere with colon visualization Physical Examination: No new findings. Benign soft abdominal examination. Chart Review: Note persistently positive fecal occult blood test I agree with the assessment as outlined in this consultation, with the following observations: There is strong evidence for chronic GI blood loss and blood loss anemia. Outpatient she has been treated with Eliquis and Aspirin I agree with the plan of care as outlined in this consultation, with the following changes and/or additions: Plan to proceed with colonoscopy this afternoon As the supervising physician, I have spent 15 minutes of discrete time performing the activities of this consultation which include, but are not limited to, review of the medical record, obtaining a history, physical examination, and entering information into the electronic record. MARTINEZ Akhtar, has reported spending 20 minutes of discrete time with the activities of the consultation. Subjective Patient is awake alert and oriented sitting at bedside this morning drinking her colonoscopy prep. States overall she has been tolerating it well. She does have some lower abdominal discomfort since she has started drinking the prep. She feels very bloated in her abdomen as well. Denies any nausea or vomiting. Has only had 1 small bowel movement which was solid stool this morning. Review of Systems Review of Systems: All systems reviewed & are unremarkable except as noted in Subjective Physical Exam Respiratory: normal respiratory effort, lungs clear to auscultation Cardiovascular: RRR, no murmur, no edema Rate/Rhythm: regular rate and regular rhythm Heart Sounds: + murmur Gastrointestinal (Abdomen): normal bowel sounds, soft, nontender, no hepatosplenomegaly Inspection/Auscultation: abdomen normal to inspection and normal bowel sounds Percussion/Palpation: abdomen soft Psychiatric: A+Ox3, euthymic affect Results & Data ([facility]) Vital Signs (Past 12 Hours) Vital Signs Temp Pulse Resp BP Pulse Ox 11/05/21 07:08 36.5 C 50 L 17 133/51 L 95 11/04/21 21:33 36.7 C 56 L 16 138/70 96 Laboratory Results Laboratory Results - last 24 hr 11/04/21 11/04/21 11/04/21 12:09 17:15 20:15 WBC RBC Hgb Hct MCV MCH MCHC RDW Std Deviation RDW Coeff of Alysa Plt Count MPV Immature Gran % (Auto) Neut % (Auto) Lymph % (Auto) [place] % (Auto) Eos % (Auto) Baso % (Auto) Neut # (Auto) Lymph # (Auto) [place] # (Auto) Eos # (Auto) Baso # (Auto) Immature Gran # (Auto) Sodium 129 L Potassium 4.4 Chloride 97 L Carbon Dioxide 25 Anion Gap 7 BUN 20 Creatinine 0.99 Est Cr Clr Drug Dosing 42.9 Est GFR ( Amer) 62.8 Est GFR (Non-Af Amer) 54.2 BUN/Creatinine Ratio 20.2 H Glucose 108 H POC Glucose 112 H 122 H Calcium 9.1 Total Bilirubin AST ALT Alkaline Phosphatase Total Protein Albumin Globulin Albumin/Globulin Ratio 06/10/2111/05/21 11/05/21 20:32 05:49 06:34 WBC 4.61 L RBC 3.71 L Hgb 9.5 L Hct 28.8 L MCV 77.6 L MCH 25.6 MCHC 33.0 RDW Std Deviation 48.7 H RDW Coeff of Alysa 17.4 H Plt Count 329 MPV 10.4 Immature Gran % (Auto) 0.0 Neut % (Auto) 64.2 Lymph % (Auto) 20.6 [place] % (Auto) 11.5 Eos % (Auto) 3.3 Baso % (Auto) 0.4 Neut # (Auto) 2.96 Lymph # (Auto) 0.95 L [place] # (Auto) 0.53 Eos # (Auto) 0.15 Baso # (Auto) 0.02 Immature Gran # (Auto) 0.00 Sodium Potassium Chloride Carbon Dioxide Anion Gap BUN Creatinine Est Cr Clr Drug Dosing Est GFR ( Amer) Est GFR (Non-Af Amer) BUN/Creatinine Ratio Glucose POC Glucose 121 H 128 H Calcium Total Bilirubin AST ALT Alkaline Phosphatase Total Protein Albumin Globulin Albumin/Globulin Ratio 11/05/21 06:34 WBC RBC Hgb Hct MCV MCH MCHC RDW Std Deviation RDW Coeff of Alysa Plt Count MPV Immature Gran % (Auto) Neut % (Auto) Lymph % (Auto) [place] % (Auto) Eos % (Auto) Baso % (Auto) Neut # (Auto) Lymph # (Auto) [place] # (Auto) Eos # (Auto) Baso # (Auto) Immature Gran # (Auto) Sodium 132 L Potassium 4.4 Chloride 98 Carbon Dioxide 28 Anion Gap 6 BUN 20 Creatinine 1.03 Est Cr Clr Drug Dosing 39.8 Est GFR ( Amer) 59.9 Est GFR (Non-Af Amer) 51.7 BUN/Creatinine Ratio 19.4 Glucose 121 H POC Glucose Calcium 9.0 Total Bilirubin 0.5 AST 16 ALT 73 H Alkaline Phosphatase 83 Total Protein 5.7 L Albumin 3.5 Globulin 2.2 L Albumin/Globulin Ratio 1.6 Diagnostic Findings 11/02/2021: EGD notes are reviewed performed due to history of blood loss anemia which demonstrated normal examined esophagus. No endoscopic evidence of bleeding, areas of erosion, esophagitis or varices in the entire esophagus. There was a regular Z-line found 40 cm from the incisors. There was diffuse mild inflammation with patchy submucosal hemorrhage characterized by adherent blood, congestion and erythema found in the entire stomach. No endoscopic evidence of bleeding, ulceration, or erosion in the entire examined stomach. Examined duodenum was normal.
[2021-11-05] MEDS ORDERED: METOCLOPRAMIDE HCL INJ 5 MG/ML 2 ML VIAL IV STA (08:34)
[2021-11-05] MEDS ORDERED: bisacodyL 5 MG TABEC PO ONE (08:34)
--- NOTE | 2021-11-05 08:42 | Medical Student Progress Note ---
Date of Service November 05, 2021 Assessment & Plan (1) LEV (acute kidney injury): Plan: Patient is a 81 yo female with PMHx of HFpEF, paroxysmal aFib, DM, hyponatremia, CAD, PAD, DM2, HTN, and hyperlipidemia admitted on 10/30 with LEV and electrolyte abnormalities secondary to hypovolemia/recent gastroenteritis. LEV (acute kidney injury) -- resolved - Pre-renal origin, improved with IVF resuscitation - Potassium level elevated on admission, now normalized. Resume home lisinopril + spironolactone 11/04/21 - Nephrology following Hyponatremia,acute on chronic - Nephrology consulted: Serum sodium 120 mmol/L on presentation. -Serum sodium this AM 132 -Nephro to provide 1 dose of furosemide 20mg IV for concern of hypervolemia on 11/03/21 - serum osms 270, low - urine osms elevated at 490 - urine sodium 91 - likely secondary to dehydration associated with gastroenteritis - follow BMP Acute blood Anemia,on chronic - heme positive stools in ED, suggestive of acute GI bleed - hgb 9.9 today, up from 9.7. Patient received 2 units of pRBCs while in house - continue protonix BID IV - MCV low, iron level low but normal ferritin. Continue home oral iron supplement - Monitor H&H qam - Hold Eliquis and ASA. Consideration should be given to risk/benefit of ASA + eliquis therapy. Eliquis is indicated due to paroxysmal afib. ASA is due to hx of CAD and LAMONTE placement in 2019. Recommend patient have discussion with PCP and coal cutting machine operator (Dr. Mcpherson) upon discharge regarding this regimen. - GI consult: EGD done 11/01/21 showing diffuse gastritis with patchy submucosal hemorrhage. - Colonoscopy showed 4-mm polyp, no bleeding Asymptomatic Bacteriuria - Urine culture from 10/30 growing pearson-sensitive ecoli and Klebsiella - WBC normal - patient denies urinary symptoms, recommend against abx treatment Elevated liver enzymes: - AST normalized, ALT 102, down from 144. - hepatitis panel negative. - GI consulted: abnormal liver tests may berelated to medication side effects (eg amiodarone) or perhaps an episode of hepatic ischemia. Hyperkalemia,resolved - Volume repleted with 2.5L of Saline in the EMD- effectively treated with HCO3 amp, D50, Insulin, CA gluconate - Secondary to dehydration from gastroenteritis - Resume lisinopril and spironolactone Compensated Metabolic acidosis,resolved - Secondary likely to anemia, hypovolemia, and LEV as well as likely metformin associated - Lactate 1.8 - resuscitation as above Junctional bradycardia,resolved - Initial EKG in the ED w/ junctional bradycardia rhythm that quickly resolved with correction of underlying hyperkalemia - Monitored in ICU throughout 10/31 with no recurrent abnormal rhythm Demand Ischemia with h/o CAD: - hsTroponin 19 on admission; trending to peak (19.4 --> 20.6 --> 30.2) - Likely type II mismatch with anemia and hypovolemia and acidosis as well as LEV - Patient asymptomatic and specifically denies CP - Will stop trend unless patient becomes symptomatic Chronic heart failure with preserved ejection fraction (HFpEF): - spironolactone and lisinopril resumed - continue home dose lasix; hold KCL supplement due to hyperkalemia Paroxysmal atrial fibrillation: - Rate and rhythm controlled - continue amiodarone - hold Eliquis due to active bleed PAD (peripheral artery disease),With fem-fem bypass - On admission, ASA and Eliquis at this time due to concern for bleed Type 2 diabetes mellitus with diabetic neuropathy, unspecified: - likely metformin associated acidosis, metformin on hold - BG AC/HS insulin protocol - Continue SSI Hypertension: - Amlodipine, Clonidine, Hydralazine resumed. Hyperlipemia: - Continue statin FENGI: heart healthy, low sodium, DM DVT PPx: on hold due to acute bleed. SCDs Dispo: Med/surg. PT/OT ordered Code status: FULL CODE (2) Hyperkalemia: (3) Gastroenteritis: (4) Anemia: (5) Elevated liver enzymes: (6) Hyponatremia: (7) Elevated troponin: (8) Metabolic acidosis: (9) GI bleed: (10) Bradycardia: (11) Acute on chronic heart failure with preserved ejection fraction (HFpEF): (12) Paroxysmal atrial fibrillation: Admission and Anticipated Discharge Date Admission Date: October 30, 2021 Supervising Attestation I personally examined the patient and verified all yi points of history and exam, discussed case, and agree with decision making with Hermann Liu MS2 feeling ok ate well - saw post colo; d/w dtr earlier - plans for her to live with dtr for at least a few days vitals noted nad heent nc at mmm breathing unlabored no accessory muscles good effort skin no rashes no pallor or icterus GE w subsequent hyponatremic dehydration/volume contraction w hyperkalemia - now improved. mild, chronic appearing hyponatremia anemia - colo reassurring hopefully home tomorrow otherwise as above Subjective No acute events overnight. As noted by GI, patient has only had one bowel movement since starting bowel prep yesterday at 1999. Reports mild abdominal pain associated with bowel prep. Otherwise, no significant symptoms. Review of Systems Review of Systems: No dizziness, nausea, vomiting, dysuria, chest pain, or shortness of breath Physical Exam Constitutional: cooperative; no acute distress Eyes: + anicteric sclerae Neck: normal visual inspection Respiratory: normal respiratory effort; no respiratory distress Auscultation: + rhonchi (lower lung hein) Cardiovascular: Rate/Rhythm: regular rate and regular rhythm Heart Sounds: + murmur (grade 3/6 systolic) Extremities: no edema Neurologic: moves all extremities and awake; not confused slow gait Psychiatric: Orientation: alert Results & Data ([facility]) Vital Signs (Past 12 Hours) Vital Signs Temp Pulse Resp BP Pulse Ox 11/05/21 07:08 36.5 C 50 L 17 133/51 L 95 11/04/21 21:33 36.7 C 56 L 16 138/70 96
[2021-11-05] MEDS: hydrALAZINE TAB 50 MG TAB PO SCH ×3 (09:30→20:52)
[2021-11-05] MEDS: FUROSEMIDE 20 MG TAB PO SCH (09:30)
[2021-11-05] MEDS: PANTOprazole 40 MG in SYRINGE 0 ML IV SCH ×2 (09:31→20:53)
[2021-11-05] MEDS: lisinopril 40 MG TAB PO SCH (09:31)
[2021-11-05] MEDS: amLODIPine BESYLATE 5 MG TAB PO SCH (09:31)
[2021-11-05] MEDS: AMIODARONE 200 MG TAB PO SCH (09:31)
[2021-11-05] MEDS: SODIUM CHLORIDE 1 GM TABLET PO SCH ×2 (09:32→20:53)
[2021-11-05] MEDS: SPIRONOLACTONE 25 MG TAB PO SCH (09:32)
[2021-11-05] MEDS: POLYETHYLENE (MIRALAX) 17 GM PACK PO SCH ×2 (09:32→20:55)
[2021-11-05 10:41] LABS: Adenovirus F 40/41 PCR Not Detected (NotDetected); Astrovirus PCR Not Detected (NotDetected); Campylobacter PCR Not Detected (NotDetected); Clostridium diff Toxin A/B PCR Not Detected (NotDetected); Cryptosporidium PCR Not Detected (NotDetected); Cyclospora cayetanensis PCR Not Detected (NotDetected); Entamoeba histolytica PCR Not Detected (NotDetected); Enteroaggregative E.coli(EAEC) Not Detected (NotDetected); Enteropathogenic E.coli (EPEC) Not Detected (NotDetected); Enterotoxigenic E.coli (ETEC) Not Detected (NotDetected); Giardia lamblia PCR Not Detected (NotDetected); Norovirus GI/GII PCR Not Detected (NotDetected); Plesiomonas shigelloides PCR Not Detected (NotDetected); Rotavirus A PCR Not Detected (NotDetected); Salmonella PCR Not Detected (NotDetected); Sapovirus PCR Not Detected (NotDetected); Shiga-like Toxin E.coli (STEC) Not Detected (NotDetected); Shigella/Enteroinvasive E.coli Not Detected (NotDetected); Vibrio cholerae PCR Not Detected (NotDetected); Vibrio species PCR Not Detected (NotDetected); Yersinia enterocolitica PCR Not Detected (NotDetected)
[2021-11-05] MEDS: ATORVASTATIN 40 MG TAB PO SCH (11:20)
[2021-11-05] MEDS: FERROUS SULFATE 325 MG TAB PO SCH ×2 (11:20→16:58)
--- NOTE | 2021-11-05 14:00 | Anesthesiology Consultation ---
Date of Service November 05, 2021 Assessment & Plan (1) Encounter for pre-operative examination: Chart Review Chart Review: Acceptable Risk for Surgery, Patient NOT seen in Pre Admission Testing and pharmacy order entry technician initiated Consults Requested none History Surgery Operation Date: 11/02/21 17:10 Proposed Procedures p Esophagogastroduodenoscopy Dr Yolande Lanier MD Operation Date: 11/05/21 16:30 Proposed Procedures p Colonoscopy Dr. Yolande Lanier MD Height/Weight Height: 5 ft 3 in Weight: 63.7 kg Allergies Allergy/AdvReac Type Severity Reaction Status Date / Time fenofibrate AdvReac Intermediate INCREASED Verified 10/30/21 20:49 URINATION metoprolol AdvReac Intermediate VOMIT,DIARR Verified 10/30/21 20:49 HEA verapamil AdvReac Intermediate INCREASED Verified 10/30/21 20:49 URINATION valsartan AdvReac Mild Weakness Verified 10/30/21 20:49 Medications Home Medications Medication Instructions Recorded Confirmed Last Taken aspirin 81 mg tablet,delayed 81 mg PO HS 03/04/20 10/30/21 10/29/21 release clonidine HCl 0.1 mg tablet 0.2 mg PO HS 03/04/20 10/30/21 10/29/21 metformin 500 mg tablet,extended 1,000 mg PO BIDM 03/04/20 10/30/21 10/30/21 release 24 hr coenzyme Q10 100 mg capsule 100 mg PO QAM 12/01/20 10/30/21 10/30/21 (CoQ-10) fish, borage, flaxseed oils-omega 1 cap PO QDD 12/01/20 10/30/21 10/30/21 3,6,9 comb no.1 1,200 mg capsule ([place] 3-6-9) lisinopril 40 mg tablet (Zestril) 40 mg PO QAM 12/01/20 10/30/21 10/30/21 potassium chloride 10 mEq 10 meq PO DAILY PRN 12/01/20 10/30/21 10/30/21 tablet,extended release atorvastatin 40 mg tablet 40 mg PO QAM 02/26/21 10/30/21 10/30/21 multivitamin 1 tab PO QAM 02/26/21 10/30/21 10/30/21 ferrous sulfate 325 mg (65 mg 325 mg PO BID #60 tab 05/02/21 10/30/21 10/30/21 iron) tablet glimepiride 4 mg tablet 4 mg PO BID #60 tab 05/02/21 10/30/21 10/30/21 amiodarone 200 mg tablet 200 mg PO QAM 07/01/21 10/30/21 10/30/21 amlodipine 5 mg tablet 10 mg PO BID 07/01/21 10/30/21 10/30/21 apixaban 5 mg tablet (Eliquis) 5 mg PO BID 07/01/21 10/30/21 10/30/21 furosemide 20 mg tablet 20 mg PO QAM 07/01/21 10/30/21 10/30/21 hydralazine 100 mg tablet 100 mg PO TID 07/01/21 10/30/21 10/30/21 magnesium oxide 400 mg (241.3 mg 400 mg PO QAM 07/01/21 10/30/21 10/30/21 magnesium) tablet pantoprazole 40 mg tablet,delayed 40 mg PO DAILYBB 07/01/21 10/30/21 10/30/21 release spironolactone 25 mg tablet 50 mg PO QAM 07/01/21 10/30/21 10/30/21 Active Medications Generic Name Dose Route Start Last Admin Trade Name Megan PRN Reason Stop Dose Admin Amiodarone HCl 200 mg 11/02/21 18:30 11/05/21 09:31 Amiodarone 200 Mg Tab PO 12/02/21 18:29 200 mg QAM AUNDREA Administration Amlodipine Besylate 10 mg 10/31/21 10:30 11/05/21 09:31 Amlodipine Besylate 5 Mg Tab PO 11/30/21 10:29 10 mg QAM AUNDREA Administration Atorvastatin Calcium 40 mg 10/31/21 09:00 11/05/21 11:20 Atorvastatin 40 Mg Tab PO 11/30/21 08:59 Not Given QAM AUNDREA Clonidine HCl 0.2 mg 10/31/21 21:00 11/04/21 22:50 Clonidine Hcl 0.1 Mg Tab PO 11/30/21 20:59 0.2 mg HS AUNDREA Administration Ferrous Sulfate 325 mg 10/31/21 08:00 11/05/21 11:20 Ferrous Sulfate 325 Mg Tab PO 07/01/22 07:59 Not Given BIDM AUNDREA Furosemide 20 mg 11/04/21 09:00 11/05/21 09:30 Furosemide 20 Mg Tab PO 12/04/21 08:59 20 mg QAM AUNDREA Administration Hydralazine HCl 100 mg 10/31/21 14:00 11/05/21 09:30 Hydralazine Tab 50 Mg Tab PO 11/30/21 13:59 100 mg TID AUNDREA Administration Pantoprazole Sodium 40 mg/ 10 mls @ 5 mls/min 11/01/21 21:00 11/05/21 09:31 Syringe IV 12/01/21 20:59 5 mls/min BID AUNDREA Administration Insulin Aspart 0 units 11/05/21 06:00 11/05/21 12:13 Insulin Aspart Per Unit SC 12/05/21 05:59 Not Given Q6 AUNDREA Lisinopril 40 mg 11/04/21 09:00 11/05/21 09:31 Lisinopril 40 Mg Tab PO 12/04/21 08:59 40 mg QAM AUNDREA Administration Menthol 1 charlene 11/01/21 23:31 11/01/21 23:42 Cough Drop (Sugar Free) Charlene 24 Charlene/1 Box BUCCAL 12/01/21 23:30 1 charlene UD PRN Administration Cough Polyethylene Glycol 17 gm 11/01/21 09:15 11/05/21 09:32 Polyethylene (Miralax) 17 Gm Pack PO 12/01/21 09:14 17 gm BID AUNDREA Administration Polyethylene Glycol/Electrolytes 8 dose 11/04/21 18:00 11/05/21 05:36 Lavage Solution 4000ml PO 11/05/21 17:59 8 dose TODAY@ AUNDREA Administration Sodium Chloride 1 gm 11/04/21 11:15 11/05/21 09:32 Sodium Chloride 1 Gm Tablet PO 12/04/21 11:14 1 gm BID AUNDREA Administration Spironolactone 50 mg 11/04/21 11:45 11/05/21 09:32 Spironolactone 25 Mg Tab PO 12/04/21 11:44 50 mg QAM AUNDREA Administration NPO Date Last Intake of Fluids: 11/01/21 Time Last Intake of Fluids: 23:00 Date Last Intake of Solids: 11/01/21 Time Last Intake of Solids: 20:00 Past Medical History Medical History LEV (acute kidney injury) Anemia Bradycardia CAD (coronary artery disease) CVA (cerebral vascular accident) (~2019) no deficits Encounter for pre-operative examination Hyperkalemia Hyperlipemia Hypertension Myocardial infarct, old follows with Dr. Mcpherson PAD (peripheral artery disease) Pneumonia hx S/P angiogram of extremity (02/02/21) Type 2 diabetes mellitus with diabetic neuropathy, unspecified NIDDM Past Family History Family History Other No family history of adverse response to anesthesia Past Surgical History Surgical History H/O removal of cyst right abdominal area History of bunionectomy of right great toe History of cardiac cath (~2018) History of heart artery stent (~2019) x1. at [facility], 1928–1983. Status post ORIF of fracture of ankle Social History Smoking Status: Former smoker tobacco type: cigarettes Hx Alcohol Use: No Alcohol type: wine alcohol intake frequency: holidays/special occasions only Hx Substance Use: No substance use type: does not use Physical Exam Vital Signs Last Vital Signs Temp 36.5 C 11/05/21 07:08 Pulse 57 L 11/05/21 09:23 Resp 17 11/05/21 07:08 BP 132/60 11/05/21 09:23 Pulse Ox 95 11/05/21 07:08 Testing Laboratory Results 11/05/21 06:34 11/05/21 06:34 PT 12.2 Seconds (9.0-12.0) H 10/30/21 19:29 INR 1.2 (0.9-1.1) H 10/30/21 19:29 Urine Color Yellow 10/30/21 23:20 Urine Appearance Clear (Clear) 10/30/21 23:20 Urine pH 6.0 (4.5-7.5) 10/30/21 23:20 Ur Specific [place] 1.012 (1.000-1.030) 10/30/21 23:20 Urine Protein Negative (Negative) 10/30/21 23:20 Urine Glucose (UA) Negative (Negative) 10/30/21 23:20 Urine Ketones Negative (Negative) 10/30/21 23:20 Urine Nitrite Negative (Negative) 10/30/21 23:20 Ur Leukocyte Esterase 3+ (Negative) H 10/30/21 23:20 Urine WBC (Auto) 10-30 /hpf (0-5) H 10/30/21 23:20 Urine RBC (Auto) 0-4 /hpf (0-4) 10/30/21 23:20 U Hyaline Cast (Auto) 1-5 /lpf (0-5) 10/30/21 23:20 U Epithel Cells (Auto) 10-20 /lpf (0-5) H 10/30/21 23:20 Urine Bacteria (Auto) Negative (Negative) 10/30/21 23:20 Blood Type B Positive 10/30/21 20:57 Antibody Screen NEGATIVE 10/30/21 20:57 10/30/21 23:20 Urine Culture - Final Urine,Straight Cath Klebsiella pneumoniae Escherichia coli 11/05/21 11/05/21 11:52 05:49 POC Glucose 138 H 128 H Electrocardiogram Date: 10/30/21 Junctional bradycardia Abnormal ECG When compared with ECG of 17-MAY-2021 09:11, Junctional rhythm has replaced Sinus rhythm Confirmed by Koby Gee ([id number]) on 11/01/2021 1:09:58 PM Chest X-Ray Date: 11/01/21 FINDINGS: Single frontal view of the chest demonstrates the cardiomediastinal silhouette to be within normal limits. Compared to previous examination, there has been p artial resolution of mild central vascular congestion. There is evidence for minimal left basilar atelectasis. The lungs are clear of alveolar opacities. There is no evidence for pleural effusion. There is no evidence for vascular congestion. There is no acute osseous pathology. IMPRESSION: 1. Partial clearing of mild central vascular congestion. 2. Interval development of left basilar atelectasis.
[2021-11-05] MEDS ORDERED: LIDOCAINE 2% 2 ML VIAL/AMP(20MG/ML) INFIL ONE (15:27)
[2021-11-05] MEDS ORDERED: PROPOFOL IV EMULSION 10 MG/ML 20 ML VIAL IV ONE (15:27)
--- NOTE | 2021-11-05 15:46 | Post Operative Brief Note ---
Immediate Post Op Note v1 Date of Surgery November 05, 2021 Pre & Post Diagnosis Operation Date: 11/02/21 17:10 Pre-Op Diagnosis: HYPERKALEMIA, LEV, LOW HGB Post-Op Diagnosis: gastritis Operation Date: 11/05/21 16:30 Pre-Op Diagnosis: Occult GI Bleeding, Blood Loss Anemia, Positive Fecal Occult Blood Test Post-Op Diagnosis: sigmoid polyp. No source for GI bleeding identified in the colon I identified the patient and participated in the time-out.: Yes Procedure Operation Date: 11/02/21 17:10 Actual Procedures p Esophagogastroduodenoscopy - Jairo Lanier MD Operation Date: 11/05/21 16:30 Actual Procedures p Colonoscopy Polypectomy - Jairo Lanier MD Surgeon Jairo Lanier MD Port Traffic Manager none Estimated Blood Loss 0 Findings Consistent with Post-Op Diagnosis One 4 mm sessile polyp identified and removed with cold biopsy forceps at 30 cm in the sigmoid colon.
--- NOTE | 2021-11-05 16:00 | GI REPORT ---
Patient Name: Adri Gould Procedure Date: 11/05/2021 3:14 PM Date of : 1940 Admit Type: Inpatient Age: 81 Gender: Female Attending MD: Jairo Lanier MD Procedure: Colonoscopy Providers: Jairo Lanier MD Referring MD: Krishna Chavez Indications: Heme positive stool, Iron deficiency anemia secondary to chronic blood loss Medicines: Monitored Anesthesia Care Complications: No immediate complications. Estimated Blood Loss: Estimated blood loss was minimal. Procedure: Pre-Anesthesia Assessment: - Prior to the procedure, a History and Physical was performed, and patient medications and allergies were reviewed. The patient is competent. The risks and benefits of the procedure and the sedation options and risks were discussed with the patient. All questions were answered and informed consent was obtained. Patient identification and proposed procedure were verified by the physician and the nurse in the pre-procedure area. Mental Status Examination: alert and oriented. Airway Examination: normal oropharyngeal airway and neck mobility. Respiratory Examination: clear to auscultation. CV Examination: systolic murmur. Prophylactic Antibiotics: The patient does not require prophylactic antibiotics. Prior Anticoagulants: The patient has taken Eliquis (apixaban), last dose was 6 days prior to procedure. ASA Grade Assessment: III - A patient with severe systemic disease. After reviewing the risks and benefits, the patient was deemed in satisfactory condition to undergo the procedure. The anesthesia plan was to use monitored anesthesia care (MAC). Immediately prior to administration of medications, the patient was re-assessed for adequacy to receive sedatives. The heart rate, respiratory rate, oxygen saturations, blood pressure, adequacy of pulmonary ventilation, and response to care were monitored throughout the procedure. The physical status of the patient was re-assessed after the procedure. After I obtained informed consent, the scope was passed under direct vision. Throughout the procedure, the patient's blood pressure, pulse, and oxygen saturations were monitored continuously. The Loaner was introduced through the anus and advanced to the cecum, identified by appendiceal orifice and ileocecal valve. The colonoscopy was performed without difficulty. The patient tolerated the procedure well. The quality of the bowel preparation was evaluated using the BBPS ([place] Bowel Preparation Scale) with scores of: Right Colon = 2 (minor amount of residual staining, small fragments of stool and/or opaque liquid, but mucosa seen well), Transverse Colon = 2 (minor amount of residual staining, small fragments of stool and/or opaque liquid, but mucosa seen well) and Left Colon = 2 (minor amount of residual staining, small fragments of stool and/or opaque liquid, but mucosa seen well). The total BBPS score equals 6. The quality of the bowel preparation was good. The entire colon was examined. Findings: The perianal and digital rectal examinations were normal. A 4 mm polyp was found at 30 cm proximal to the anus. The polyp was sessile. The polyp was removed with a cold biopsy forceps. Resection and retrieval were complete. Verification of patient identification for the specimen was done by the physician and nurse using the patient's name and medical record number. Estimated blood loss was minimal. The exam was otherwise without abnormality on direct and retroflexion views. There is no endoscopic evidence of bleeding, diverticula, inflammation or mass in the entire colon. Impression: - One 4 mm polyp at 30 cm proximal to the anus, removed with a cold biopsy forceps. Resected and retrieved. - The examination was otherwise normal on direct and retroflexion views. Recommendation: - Return patient to [facility] for [facility] care. - Resume previous diet. - Continue present medications. - Await pathology results. - Repeat colonoscopy for surveillance based on pathology results. - Return to referring physician PRN. MD Jairo Goldebrg MD 11/05/2021 4:00:24 PM This report has been signed electronically. Note Initiated On: 11/05/2021 3:14 PM Number of Addenda: 0 I attest to the content of the Intraoperative Record and orders documented therein, exceptions below {[id number]}
--- NOTE | 2021-11-05 16:18 | Anesthesiology Progress Note ---
Date of Service November 05, 2021 Anesthesia Post Procedure Vital Signs Vital Signs: Temp Pulse Pulse Resp BP BP Pulse Ox 11/05/21 16:09 60 60 18 162/65 H 96 11/05/21 15:54 60 57 L 18 157/58 H 99 11/05/21 15:39 60 80 18 142/75 H 96 11/05/21 14:43 96.1 F L 60 60 18 153/70 H 98 11/05/21 09:23 57 L 132/60 11/05/21 07:08 97.7 F 50 L 17 133/51 L 95 11/04/21 21:33 98.1 F 56 L 16 138/70 96 Transfer of Care Handoff Completed per policy Notes Mental Status: alert / awake / arousable and participated in evaluation Patient Amnestic to Procedure: Yes Nausea / Vomiting: adequately controlled Pain: adequately controlled Airway Patency, RR, SpO2: stable & adequate BP & HR: stable & adequate Hydration State: stable & adequate Anesthetic Complications: no major complications apparent and Pt Satisfied with anesthetic care
--- NOTE | 2021-11-05 18:47 | Billing Data ---
Date of Service November 05, 2021 Coding Level of Care Code 59746 Subseq Hosp Care Lvl 2
[2021-11-05] MEDS: cloNIDine HCL 0.1 MG TAB PO SCH (20:52)
[2021-11-06] MEDS: POLYETHYLENE (MIRALAX) 17 GM PACK PO SCH (09:14)
[2021-11-06] MEDS: FUROSEMIDE 20 MG TAB PO SCH (09:15)
[2021-11-06] MEDS: FERROUS SULFATE 325 MG TAB PO SCH (09:15)
[2021-11-06] MEDS: AMIODARONE 200 MG TAB PO SCH (09:15)
[2021-11-06] MEDS: ATORVASTATIN 40 MG TAB PO SCH (09:15)
[2021-11-06] MEDS: amLODIPine BESYLATE 5 MG TAB PO SCH (09:15)
[2021-11-06] MEDS: SODIUM CHLORIDE 1 GM TABLET PO SCH (09:16)
[2021-11-06] MEDS: SPIRONOLACTONE 25 MG TAB PO SCH (09:16)
[2021-11-06] MEDS: lisinopril 40 MG TAB PO SCH (09:16)
[2021-11-06] MEDS: hydrALAZINE TAB 50 MG TAB PO SCH ×2 (09:16→13:00)
[2021-11-06] MEDS: INSULIN ASPART PER UNIT SC SCH ×2 (09:18→12:59)
--- NOTE | 2021-11-06 09:38 | Discharge Summary ---
Date of Service November 06, 2021 Admission HPI Per Admitting Provider 81 YOF with medical history of: Afib, NSTEMI(2019), CAD, HLD, Aortic Stenosis, DM II, PAD(fem-fem bypass), CVA, hyponatremia, bradycardia, HTN. Patient comes to the EMD today for complaints of week of fatigue, nausea, vomiting, diarrhea for 2 days. Patient states that she takes her pills and just gets nauseated. She reports having 2-3 loose BMs over the last day that are brown in color and without blood. She denies any blood or black/dark brown in her emesis. In the EMD the patient had routine labs performed- which resulted in hyperkalemia of 7.3 and HCO3 of 13, With bradycardia/junctional rythm on her ECG. TELECOMMUNICATIONS OFFICER was increased to 2.9, BUN 64, and HGB of 6.3. She was reported heme positive by EMD- was typed and crossed. She was given CA gluconate, D50, Insulin 10units IV, 2.5 Liters of Normal Saline. She had non-contrast CT scan of her abdomen and pelvis which was interpreted as normal gallbladder/pancreas and consistent with a gastroenteritis. Hospitalist service was consulted for admission. Reque sted VBG, repeat of BMP. This resulted with PH 7.38, HCO3 18, and Potassium improvement to 5.5, slight decrease in her TELECOMMUNICATIONS OFFICER and remaining elevation in BUN. Patient will be admitted to the ICU with continuation of BICARB 8.4% 150meq in 1L D5 to continue with potassium correction. She remains making urine, so can kaliuresis if continued need to lower. Spears catheter will be placed for close monitoring of her UO. Will place on Protonix 40mg IV BID. Remain NPO. COVID test on admission is:NEGATIVE Admission Exam (Per Admitting) Constitutional PHYSICAL EXAM: General: awake, alert, no apparent distress Head: Normocephalic, atraumatic ENT: PERRL, EOMI, no pharyngeal exudate, mucous membranes moist Neuro: AAO x 3, speech clear and appropriate, strength intact bilaterally 5/5, sensation intact and equal all extremities and dermatomes, no pronator drift Chest: equal rise and fall of the chest, no accessory muscle use, no heaves or thrills, Clear to auscultation, on room air, Cardiac: Regular rate and rhythm, telemetry reviewed- NSR 70s with PVC, skin warm dry, cap refill <3 seconds, peripheral pulses +2 no JVD, no murmur, no edema GI: NABS x 4 quadrants, soft, nontender to palpation, no rebound, guarding or tenderness : Spontaneously voiding, no pain, no CVA tenderness- spears placed Extremities: Normal inspection, no peripheral edema or erythema, calfs nontender to palpation Psych: Normal mood and affect Skin: no rash or erythema Discharge Data Consultations 10/30/21 21:02 ED Decision to Admit Stat 10/31/21 00:41 Consult Bilingual Sales Consultant Routine 10/31/21 09:11 Consult Nephrology Routine 10/31/21 16:47 Consult Gastroenterology Routine Procedures Performed Operation Date: 11/02/21 17:10 Actual Procedures p Esophagogastroduodenoscopy - Jairo Lanier MD Operation Date: 11/05/21 16:30 Actual Procedures p Colonoscopy Polypectomy - Adonay Galicia MD Hospital Course (1) LEV (acute kidney injury): Ms. Gould was admitted 10/30/21 with a prerenal LEV causing hyperkalemia and hyponatremia secondary to gastroenteritis, elevated liver enzymes, and anemia. She was rehydrated and underwent EGD/colonoscopy to evaluate for blood loss (mild gastritis and 4-mm colonic polyp only), and was discharged home doing well on 11/06/21. LEV (acute kidney injury), resolved - Prerenal origin, improved with IVF resuscitation - Potassium level elevated on admission, later normalized. Resumed home lisinopril + spironolactone 11/04/21. - Nephrology consulted Hyponatremia,acute on chronic - Serum sodium 120 mmol/L on presentation, most recent sodium 132 on 11/05/21 - Nephrology consulted: recommended 1 dose of furosemide 20mg IV for concern of hypervolemia on 11/03/21 - Likely secondary to dehydration associated with gastroenteritis Acute blood loss anemia,on chronic - Heme positive stools x2, suggestive of acute GI bleed - Hgb 7.3 on admission, 9.5 most recently on 11/05/21. - Patient received 2 units of packed RBCs while in house. - MCV low, iron level low but ferritin normal. Continue home oral iron supplement. - Held Eliquis and ASA. Consideration should be given to risk/benefit of ASA + Eliquis therapy. Eliquis is indicated due to paroxysmal afib. ASA is due to hx of CAD and LAMONTE placement in 2019. Recommend patient have discussion with PCP and auto damage adjuster (Dr. Mcpherson) upon discharge regarding this regimen. - GI consult: EGD done 11/01/21 showing diffuse gastritis with patchy submucosal hemorrhage. - Colonoscopy showed 4-mm polyp, no bleeding - Resumed Eliquis and aspirin on discharge Asymptomatic Bacteriuria - Urine culture from 10/30 growing pearson-sensitive ecoli and Klebsiella - WBC normal - Patient denies urinary symptoms, recommend against abx treatment Elevated liver enzymes: - AST and ALT elevated on admission. AST normalized, but ALT remains elevated upon discharge. - Hepatitis panel negative. - GI consulted: abnormal liver tests may berelated to medication side effects (eg amiodarone) or perhaps an episode of hepatic ischemia. Hyperkalemia,resolved - Volume repleted with 2.5L of Saline in the ED; effectively treated with HCO3 amp, D50, Insulin, CA gluconate. - Secondary to dehydration from gastroenteritis - Resume lisinopril and spironolactone. Compensated metabolic acidosis,resolved - Secondary likely to anemia, hypovolemia, and LEV as well as likely metformin associated - Lactate 1.8 - Resuscitation as above Junctional bradycardia,resolved - Initial EKG in the ED w/ junctional bradycardia rhythm that quickly resolved with correction of underlying hyperkalemia - Monitored in ICU throughout 10/31 with no recurrent abnormal rhythm Demand Ischemia with h/o CAD: - hsTroponin 19 on admission; trending to peak (19.4 --> 20.6 --> 30.2) - Likely type II mismatch with anemia and hypovolemia and acidosis as well as LEV - Patient asymptomatic and specifically denies CP Chronic heart failure with preserved ejection fraction (HFpEF): - Spironolactone and lisinopril resumed - Continue home dose lasix; held KCL supplement due to hyperkalemia, may resume now Paroxysmal atrial fibrillation: - Rate and rhythm controlled - Continue amiodarone - Held Eliquis due to active bleed PAD (peripheral artery disease),With fem-fem bypass - On admission, ASA and Eliquis at this time due to concern for bleed Type 2 diabetes mellitus with diabetic neuropathy, unspecified: - Likely metformin associated acidosis, metformin on hold - BG AC/HS insulin protocol - Continue SSI Hypertension: - Amlodipine, Clonidine, Hydralazine resumed Hyperlipemia: - Continue statin SUMMARY: * Advised follow-up with PCP. * Recommend continued monitoring of diuretic use in setting of HFpEF. * Recommend continuation of anemia workup. Recommend consideration of risk associated with dual aspirin and Eliquis therapy; indicated for paroxysmal atrial fibrillation. * Recommend repeat labs for evaluation of elevated liver enzymes in 8 weeks. * Recommend f/u BMP for hyponatremia. * Colonoscopy pathology results pending. (2) Hyperkalemia: (3) Gastroenteritis: (4) Anemia: (5) Elevated liver enzymes: (6) Hyponatremia: (7) Elevated troponin: (8) Metabolic acidosis: (9) GI bleed: (10) Bradycardia: (11) Acute on chronic heart failure with preserved ejection fraction (HFpEF): (12) Paroxysmal atrial fibrillation: Supervising Physician Co-Signing Physician Notes I personally examined the patient and verified all yi points of history and exam, discussed case, and agree with decision making with Hermann Liu MS2 feeling ok ate well and wants to go home vitals noted nad heent nc at mmm breathing unlabored no accessory muscles good effort skin no rashes no pallor or icterus GE w subsequent hyponatremic dehydration/volume contraction w hyperkalemia - now improved. mild, chronic appearing hyponatremia. outpt f/u, periodic BMP as outpt anemia - colo reassurring, follow up as outpt stable for home otherwise as above
--- NOTE | 2021-11-06 18:52 | Billing Data ---
Date of Service November 06, 2021 Coding Level of Care Code D/C DAY MANAGEMENT <30 MINS
== END 2021-11-06 14:58 | disposition home or self-care (01) | DRG 391 ==
LOC: ED 18:37 → 1E 22:35 → SUATTDRO 22:35 → 1E 23:23 → 2S 11-02 11:01 → 3N 11-04 08:24

== ENCOUNTER 2021-12-21 10:15 | Inpatient (IN) ==
[2021-12-21 10:45] LABS: Mean Corpuscular Hgb Conc 32.1 g/dL (32.0-36.0); Mean Corpuscular Volume 80.9 fL (80.0-100.0); Mean Platelet Volume 11.9 fL (9.4-12.3); Platelet Count 285 K/uL (130-400); RDW Coefficient of Variation 19.5 % (11.5-14.5); Red Blood Count 3.46 M/uL (3.93-5.22); White Blood Count 19.72 K/ul (4.8-10.8)
--- NOTE | 2021-12-21 10:52 | Emergency Department Note ---
Impression & Plan Pulmonary edema, Anemia, Hypoxia, GIB (gastrointestinal bleeding), Acute non-ST elevation myocardial infarction (NSTEMI), Elevated troponin I level ED Provider Note NAME: YIN BRO AGE: 81 SEX: F : 1940 ARRIVES VIA: Ambulance INFORMANT: Patient, the patient's family member ED PROVIDER(S): Derrek Brown DO CHIEF COMPLAINT: Shortness of breath HPI: The patient is a 81-year-old female who presented to the emergency department for an evaluation of difficulty breathing. The patient states that she started having symptoms over the course the last 24 hours. She denies having any nausea or vomiting. She states the shortness of breath is worse with exertion as well as lying flat. She has no chest pain. She describes no fever but she has had a cough which has been dry nonproductive. She does have some lower extremity swelling. She recently had a procedure to have a bypass in her right groin. She was scheduled for Doppler to have this evaluated today. She was unable to tolerate testing and was referred to the emergency department. ROS: See above HPI for pertinent positives & negatives. A total of 10 systems reviewed and were otherwise negative. PAST MEDICAL HISTORY: See Below PAST SURGICAL HISTORY: See Below FAMILY HISTORY: See Below SOCIAL HISTORY: See Below HOME MEDICATIONS: See Below ALLERGIES: See Below VITALS: See Below PHYSICAL EXAMINATION: GENERAL: Patient is awake and alert. The patient is very anxious appearing. EYES: The conjunctivae are clear. The pupils are round and reactive. EARS, NOSE, MOUTH AND THROAT: The nose is without any evidence of any deformity. NECK: The neck is nontender and supple. RESPIRATORY: Diminished breath sounds are noted throughout. There were rales at both bases. There is mild conversational dyspnea as well as tachypnea noted. CARDIOVASCULAR: Regular rate and rhythm noted there no murmurs rubs or gallops normal S1 normal S2. GASTROINTESTINAL: The abdomen is soft. Abdomen is nontender. Rectal exam revealed brown stool which was heme positive. MUSCULOSKELETAL/EXTREMITIES: There is no evidence of gross deformity full range of motion is noted in the hips and shoulders. SKIN: Pedal edema was noted bilaterally. Skin was warm and dry. NEUROLOGIC: Patient is awake alert and oriented x3 MEDICAL DECISION MAKING: Patient is a 81-year-old female who presented to the emergency department for an evaluation of difficulty breathing. Her symptoms started last evening but worsened prior to arrival. The patient was found to have a very abnormal EKG with ischemic changes. I discussed patient's laboratory and radiographic studies with her and her family member. 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 Ultimately the patient was not having any chest pain. Symptoms slowly improved after IV nitroglycerin and IV Lasix. She was also treated with aspirin. IV heparin was ordered but the patient was found to have heme positive stool. She did recently have a GI bleed and did have anemia in the emergency department. I will defer heparin administration to the admitting team although it is possible given the patient's presentation today that the risk may be outweighed by the benefit and heparin may be indicated. Triage Nursing notes reviewed. Prior medical records reviewed Vital Signs: reviewed and remarkable for hypoxia and hypertension. Differential diagnosis: Reactive airway disease, pneumonia, pneumothorax, COPD, CHF, infections, cardiac ischemia, pulmonary embolism, musculoskeletal, gastrointestinal, as well as other pathologies. ER treatment provided: See below Diagnostics interpreted by me: ECG: EKG was obtained in the emergency department. My interpretation is sinus rhythm at 84 bpm. There is no ectopy. Significant inferior and lateral ST depressions with T wave abnormalities were noted. This was compared to a tracing from May 17, 2021. Significant changes are noted. Cardiac Monitoring: An order was placed for continuous cardiac monitoring. The monitor shows a rate of 68 bpm with sinus rhythm. Laboratory studies: As stated above and show below. Imaging studies: See below Consultation(s): I discussed this case with Dr Lock I discussed this case with Dr. Thompson who is on-call for the [facility] [place] Divisionist group. I discussed this case with Dr Rios ED COURSE: Procedures: none Critical Care: I have personally spent greater than 55 minutes of critical care time in the direct management of this patient. This includes bedside care, interpretation of diagnostic studies, and testing, discussion with consultants, patient, and family members, and other required patient management activities. This 55 minutes is in excess of all separately billable procedures. Past Med/Surg History Medical History (Updated 12/21/21 @ 16:16 by Derrek Brown DO) Anemia Bradycardia CAD (coronary artery disease) CVA (cerebral vascular accident) (~2019) no deficits Encounter for pre-operative examination Hyperlipemia Hypertension Hypertensive urgency Myocardial infarct, old follows with Dr. Mcpherson PAD (peripheral artery disease) Pneumonia hx S/P angiogram of extremity (02/02/21) Type 2 diabetes mellitus with diabetic neuropathy, unspecified NIDDM Surgical History H/O removal of cyst right abdominal area History of bunionectomy of right great toe History of cardiac cath (~2018) History of heart artery stent (~2018) x1. at [facility] [place]. 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: No Beliefs That Will Affect Care: None marital status: / Current Living Situation: Alone Current Living Situation Comment: [place] style home current occupational status: retired How many Children do You have: 1 Other Information That Helps Us Care for You: No Feels Safe at Home: Yes Safety Concerns: Feels Safe At This Time Assistive Devices: None Allergies Allergies Allergy/AdvReac Type Severity Reaction Status Date / Time fenofibrate AdvReac Intermediate INCREASED Verified 11/05/21 14:43 URINATION metoprolol AdvReac Intermediate VOMIT,DIARR Verified 11/05/21 14:43 HEA verapamil AdvReac Intermediate INCREASED Verified 11/05/21 14:43 URINATION valsartan AdvReac Mild Weakness Verified 11/05/21 14:43 Home Meds Home Medications Medication Instructions Recorded Confirmed aspirin 81 mg tablet,delayed 81 mg PO HS 03/04/20 12/21/21 release clonidine HCl 0.1 mg tablet 0.1 mg PO BID 03/04/20 12/21/21 metformin 500 mg tablet,extended 1,000 mg PO BIDM 03/04/20 12/21/21 release 24 hr coenzyme Q10 100 mg capsule 100 mg PO QAM 12/01/20 12/21/21 (CoQ-10) fish, borage, flaxseed oils-omega 1 cap PO QDD 12/01/20 12/21/21 3,6,9 comb no.1 1,200 mg capsule (Gipsy 3-6-9) atorvastatin 40 mg tablet 40 mg PO QAM 02/26/21 12/21/21 multivitamin 1 tab PO QAM 02/26/21 12/21/21 amiodarone 200 mg tablet 200 mg PO QAM 07/01/21 12/21/21 amlodipine 5 mg tablet 10 mg PO BID 07/01/21 12/21/21 apixaban 5 mg tablet (Eliquis) 5 mg PO BID 07/01/21 12/21/21 hydralazine 100 mg tablet 100 mg PO TID 07/01/21 12/21/21 magnesium oxide 400 mg (241.3 mg 400 mg PO QAM 07/01/21 12/21/21 magnesium) tablet pantoprazole 40 mg tablet,delayed 40 mg PO BID 07/01/21 12/21/21 release glimepiride 4 mg tablet 8 mg PO DAILY 12/21/21 12/21/21 sodium chloride 1,000 mg soluble 1,000 mg PO DAILY 12/21/21 12/21/21 tablet Previous Rx's Medication Instructions Recorded ferrous sulfate 325 mg (65 mg 325 mg PO BID #60 tabs 05/02/21 iron) tablet Results & Data (ED) Vital Signs Vital Signs - 24 hr 12/21/21 10:32 12/21/21 10:32 12/21/21 10:32 Temperature 36.6 C Temperature Source Oral Pulse Rate 92 H Pulse Rate [Right Finger] Pulse Rhythm Regular Pulse Rhythm [Right Finger] Pulse Strength Normal Pulse Strength [Right Finger] Respiratory Rate 20 Respiratory Effort / Characteristics Non-Labored Spontaneous Non-Labored Spontaneous Respiratory Depth Normal Respiratory Pattern Regular Regular Blood Pressure 171/78 H Blood Pressure [Right Arm] Blood Pressure Mean 109 Blood Pressure Mean [Right Arm] Blood Pressure Position Sitting Pulse Oximetry 83 L Oxygen Delivery Method Room Air Room Air Oxygen Flow Rate Sepsis Recent Fever Within 48 Hours No Sepsis New/Unexplained Change in Mental Status N/A Sepsis Action Taken by Nursing No Action Required 12/21/21 10:37 12/21/21 13:00 Temperature Temperature Source Pulse Rate Pulse Rate [Right Finger] 78 Pulse Rhythm Pulse Rhythm [Right Finger] Regular Pulse Strength Pulse Strength [Right Finger] Normal Respiratory Rate 20 Respiratory Effort / Characteristics Spontaneous Accessory Muscle Use Respiratory Depth Normal Respiratory Pattern Regular Blood Pressure Blood Pressure [Right Arm] 163/102 H Blood Pressure Mean Blood Pressure Mean [Right Arm] 122 Blood Pressure Position Pulse Oximetry 95 Oxygen Delivery Method Nasal Cannula Oxymask Oxygen Flow Rate 4 15 Sepsis Recent Fever Within 48 Hours Sepsis New/Unexplained Change in Mental Status Sepsis Action Taken by Halfway Medications Current Medication List: was personally reviewed by me Laboratory Data Attestation: I reviewed the patient's lab results. Result diagrams: 12/21/21 10:36 12/21/21 10:36 Lab Results 12/21/21 12/21/21 12/21/21 Range/Units 10:36 10:36 10:36 WBC 19.72 H (4.8-10.8) K/ul RBC 3.46 L (3.93-5.22) M/uL Hgb 9.0 L (12.0-16.0) g/dl Hct 28.0 L (34.1-44.9) % MCV 80.9 (80.0-100.0) fL MCH 26.0 (25.0-34.0) pg MCHC 32.1 (32.0-36.0) g/dL RDW Std Deviation 57.0 H (36.4-46.3) fL RDW Coeff of Alysa 19.5 H (11.5-14.5) % Plt Count 285 (130-400) K/uL MPV 11.9 (9.4-12.3) fL Immature Gran % (Auto) 0.5 % Neut % (Auto) 93.2 % Lymph % (Auto) 1.6 % Surry % (Auto) 4.4 % Eos % (Auto) 0.0 % Baso % (Auto) 0.3 % Neut # (Auto) 18.38 H (1.4-6.5) K/uL Lymph # (Auto) 0.32 L (1.2-3.4) K/uL Surry # (Auto) 0.87 H (0.24-0.82) K/uL Eos # (Auto) 0.00 (0-0.50) K/uL Baso # (Auto) 0.05 (0-0.2) K/uL Immature Gran # (Auto) 0.10 H (0.00-0.02) K/uL PT 12.7 H (9.0-12.0) Seconds INR 1.2 H (0.9-1.1) APTT 33.6 H (21.0-31.0) Seconds PTT Ratio 1.2 D-Dimer 460 (0-500) ug/L FEU VBG pH (7.36-7.41) VBG pCO2 (38-50) mmHg VBG pO2 mmHg VBG HCO3 mmol/L VBG O2 Saturation % VBG Base Excess mEq/L Sodium 131 L (136-145) mmol/L Potassium 4.3 (3.5-5.1) mmol/L Chloride 100 (98-107) mmol/L Carbon Dioxide 21 (21-32) mmol/L Anion Gap 10 (3-11) BUN 19 (6-23) mg/dl Creatinine 0.95 (0.6-1.2) mg/dl Est Cr Clr Drug Dosing 44.8 ml/min Est GFR ( Amer) 66.0 ml/min Est GFR (Non-Af Amer) 57.0 ml/min BUN/Creatinine Ratio 20.0 (10-20) Glucose 236 H (70-99(Fasting)) mg/dl Calcium 9.0 (8.5-10.1) mg/dl Magnesium 1.6 L (1.7-2.4) mg/dl Total Bilirubin 0.8 (0.2-1.0) mg/dl AST 12 L (13-39) U/L ALT 18 (7-52) U/L Alkaline Phosphatase 103 (34-104) U/L Troponin I High Sens 82.4 H* D (0-14) pg/ml B-Natriuretic Peptide (0-100) pg/ml Total Protein 7.0 (6.0-8.3) gm/dl Albumin 4.0 (3.4-5.0) gm/dl Globulin 3.0 (2.5-4.0) gm/dl Albumin/Globulin Ratio 1.3 (0.9-2) Lipase 10 L (11-82) U/L TSH (0.300-4.500) uIu/ml SARS-CoV-2 (PCR) (Negative) Influenza Type A (PCR) (Neg) Influenza Type B (PCR) (Neg) RSV (RT-PCR) (Neg) 12/21/21 12/21/21 12/21/21 Range/Units 10:36 10:51 11:18 WBC (4.8-10.8) K/ul RBC (3.93-5.22) M/uL Hgb (12.0-16.0) g/dl Hct (34.1-44.9) % MCV (80.0-100.0) fL MCH (25.0-34.0) pg MCHC (32.0-36.0) g/dL RDW Std Deviation (36.4-46.3) fL RDW Coeff of Alysa (11.5-14.5) % Plt Count (130-400) K/uL MPV (9.4-12.3) fL Immature Gran % (Auto) % Neut % (Auto) % Lymph % (Auto) % Surry % (Auto) % Eos % (Auto) % Baso % (Auto) % Neut # (Auto) (1.4-6.5) K/uL Lymph # (Auto) (1.2-3.4) K/uL Surry # (Auto) (0.24-0.82) K/uL Eos # (Auto) (0-0.50) K/uL Baso # (Auto) (0-0.2) K/uL Immature Gran # (Auto) (0.00-0.02) K/uL PT (9.0-12.0) Seconds INR (0.9-1.1) APTT (21.0-31.0) Seconds PTT Ratio D-Dimer (0-500) ug/L FEU VBG pH 7.41 (7.36-7.41) VBG pCO2 36 L (38-50) mmHg VBG pO2 39 mmHg VBG HCO3 23 mmol/L VBG O2 Saturation 71.2 % VBG Base Excess -1.4 mEq/L Sodium (136-145) mmol/L Potassium (3.5-5.1) mmol/L Chloride (98-107) mmol/L Carbon Dioxide (21-32) mmol/L Anion Gap (3-11) BUN (6-23) mg/dl Creatinine (0.6-1.2) mg/dl Est Cr Clr Drug Dosing ml/min Est GFR ( Amer) ml/min Est GFR (Non-Af Amer) ml/min BUN/Creatinine Ratio (10-20) Glucose (70-99(Fasting)) mg/dl Calcium (8.5-10.1) mg/dl Magnesium (1.7-2.4) mg/dl Total Bilirubin (0.2-1.0) mg/dl AST (13-39) U/L ALT (7-52) U/L Alkaline Phosphatase (34-104) U/L Troponin I High Sens (0-14) pg/ml B-Natriuretic Peptide (0-100) pg/ml Total Protein (6.0-8.3) gm/dl Albumin (3.4-5.0) gm/dl Globulin (2.5-4.0) gm/dl Albumin/Globulin Ratio (0.9-2) Lipase (11-82) U/L TSH 2.860 (0.300-4.500) uIu/ml SARS-CoV-2 (PCR) NEGATIVE (Negative) Influenza Type A (PCR) Negative (Neg) Influenza Type B (PCR) Negative (Neg) RSV (RT-PCR) Negative (Neg) 12/21/21 12/21/21 Range/Units 11:37 12:24 WBC (4.8-10.8) K/ul RBC (3.93-5.22) M/uL Hgb (12.0-16.0) g/dl Hct (34.1-44.9) % MCV (80.0-100.0) fL MCH (25.0-34.0) pg MCHC (32.0-36.0) g/dL RDW Std Deviation (36.4-46.3) fL RDW Coeff of Alysa (11.5-14.5) % Plt Count (130-400) K/uL MPV (9.4-12.3) fL Immature Gran % (Auto) % Neut % (Auto) % Lymph % (Auto) % Surry % (Auto) % Eos % (Auto) % Baso % (Auto) % Neut # (Auto) (1.4-6.5) K/uL Lymph # (Auto) (1.2-3.4) K/uL Surry # (Auto) (0.24-0.82) K/uL Eos # (Auto) (0-0.50) K/uL Baso # (Auto) (0-0.2) K/uL Immature Gran # (Auto) (0.00-0.02) K/uL PT (9.0-12.0) Seconds INR (0.9-1.1) APTT (21.0-31.0) Seconds PTT Ratio D-Dimer (0-500) ug/L FEU VBG pH (7.36-7.41) VBG pCO2 (38-50) mmHg VBG pO2 mmHg VBG HCO3 mmol/L VBG O2 Saturation % VBG Base Excess mEq/L Sodium (136-145) mmol/L Potassium (3.5-5.1) mmol/L Chloride (98-107) mmol/L Carbon Dioxide (21-32) mmol/L Anion Gap (3-11) BUN (6-23) mg/dl Creatinine (0.6-1.2) mg/dl Est Cr Clr Drug Dosing ml/min Est GFR ( Amer) ml/min Est GFR (Non-Af Amer) ml/min BUN/Creatinine Ratio (10-20) Glucose (70-99(Fasting)) mg/dl Calcium (8.5-10.1) mg/dl Magnesium (1.7-2.4) mg/dl Total Bilirubin (0.2-1.0) mg/dl AST (13-39) U/L ALT (7-52) U/L Alkaline Phosphatase (34-104) U/L Troponin I High Sens 226.1 H* D (0-14) pg/ml B-Natriuretic Peptide 747 H (0-100) pg/ml Total Protein (6.0-8.3) gm/dl Albumin (3.4-5.0) gm/dl Globulin (2.5-4.0) gm/dl Albumin/Globulin Ratio (0.9-2) Lipase (11-82) U/L TSH (0.300-4.500) uIu/ml SARS-CoV-2 (PCR) (Negative) Influenza Type A (PCR) (Neg) Influenza Type B (PCR) (Neg) RSV (RT-PCR) (Neg) Administered Medications Nitroglycerin/Dextrose (Nitroglycerin/D5w 100 Mcg/Ml) 250 mls @ 0 mls/hr IV .Q0M AUNDREA; Protocol Stop: 01/20/22 11:44 Last Titration: 12/21/21 15:18 Dose: 0 mcg/min, 0 mls/hr Documented By: Admin: 12/21/21 12:28 Dose: 5 mcg/min, 3 mls/hr Documented By: ALMA Co-signed By: NASEEM Heparin Sodium/Dextrose (Heparin Sodium/Dextrose) 25,000 units in 500 mls @ 14 mls/hr IV .Q24H AUNDREA; Protocol Stop: 01/20/22 13:59 Last Admin: 12/21/21 14:04 Dose: 700 units/hr, 14 mls/hr Documented By: ALMA Co-signed By: NASEEM Discontinued Medications Amlodipine Besylate (Amlodipine Besylate 5 Mg Tab) 10 mg PO NOW STA Stop: 12/21/21 13:13 Last Admin: 12/21/21 13:53 Dose: 10 mg Documented By: ALMA Aspirin (Aspirin 81 Mg Chew) 324 mg PO NOW STA Stop: 12/21/21 13:26 Last Admin: 12/21/21 13:53 Dose: 324 mg Documented By: ALMA Furosemide (Furosemide 40 Mg/4 Ml Vial) 40 mg IV ONE ONE Stop: 12/21/21 11:09 Last Admin: 12/21/21 11:45 Dose: 40 mg Documented By: HILARY Hydralazine HCl (Hydralazine Tab 50 Mg Tab) 100 mg PO ONE STA Stop: 12/21/21 13:14 Last Admin: 12/21/21 13:53 Dose: 100 mg Documented By: ALMA Magnesium Sulfate/Dextrose (Magnesium Sulfate / D5w) 1 gm in 100 mls @ 100 mls/hr IV Q1H AUNDREA Stop: 12/21/21 13:35 Last Admin: 12/21/21 13:25 Dose: 100 mls/hr Documented By: Infusion: 12/21/21 12:45 Dose: 100 mls/hr Documented By: Admin: 12/21/21 11:45 Dose: 100 mls/hr Documented By: HILARY Heparin Sodium/Dextrose (Heparin Sodium/Dextrose) 25,000 units in 500 mls @ 0.02 mls/hr IV .Q24H AUNDREA; Protocol Stop: 01/20/22 11:59 Last Titration: 12/21/21 12:37 Dose: 0 units/hr, 0 mls/hr Documented By: ALMA Co-signed By: BLANCA Admin: 12/21/21 12:25 Dose: 1,050 units/hr, 21 mls/hr Documented By: ALMA Co-signed By: KRISTAL Famotidine (Pepcid 20mg Iv Push) 20 mg in 5 mls @ 2.5 mls/min IV ONE STA Stop: 12/21/21 13:06 Last Admin: 12/21/21 13:53 Dose: 2.5 mls/min Documented By: AP Imaging Data Radiologist's Impression: Chest X-Ray 12/21/21 10:28 XR chest 1V portable CLINICAL HISTORY: Chest Pain TECHNIQUE: Single frontal radiograph of the chest was obtained. Comparison: Comparison is made to chest radiograph 11/01/2021 FINDINGS: No lines and tubes are seen. The cardiomediastinal silhouette is stable. Calcified aortic arch is noted. There is prominence and cephalization of the vasculature with Charito B lines seen. No evidence of pleural effusion or pneumothorax. IMPRESSION: Moderate pulmonary edema, increased from prior exam. ACT 112: Negative or not required by law. Electronically signed by: Umair Tan M.D. 12/21/2021 11:09 AM Discharge Plan Visit Data Chief Complaint: Shortness of Breath/Dyspnea Stated Complaint: SOB ED Provider: Derrek Brown Discharge Problem: Pulmonary edema, Anemia, Hypoxia, GIB (gastrointestinal bleeding), Acute non-ST elevation myocardial infarction (NSTEMI), Elevated troponin I level Patient Disposition: Being Evaluated by Hospitalist Discharge Instructions Interventions: ED Discharge Assessment Last Done: 12/21/21 15:01
[2021-12-21 10:55] LABS: D Dimer 460 ug/L FEU (0-500); INR 1.2 (0.9-1.1); Partial Thromboplastin Ratio 1.2; Partial Thromboplastin Time 33.6 Seconds (21.0-31.0); Prothrombin Time 12.7 Seconds (9.0-12.0)
[2021-12-21] MEDS ORDERED: FUROSEMIDE 40 MG/4 ML VIAL IV ONE (11:08)
[2021-12-21 11:11] LABS: Albumin Globulin Ratio 1.3 (0.9-2); Bilirubin,Total 0.8 mg/dl (0.2-1.0); Creatinine Clr Calc Pharmacy 44.8 ml/min; Magnesium 1.6 mg/dl (1.7-2.4); Potassium 4.3 mmol/L (3.5-5.1)
--- NOTE | 2021-12-21 11:11 | XRay Report ---
XR chest 1V portable CLINICAL HISTORY: Chest Pain TECHNIQUE: Single frontal radiograph of the chest was obtained. Comparison: Comparison is made to chest radiograph 11/01/2021 FINDINGS: No lines and tubes are seen. The cardiomediastinal silhouette is stable. Calcified aortic arch is not ed. There is prominence and cephalization of the vasculature with Charito B lines seen. No evidence of pleural effusion or pneumothorax. IMPRESSION: Moderate pulmonary edema, increased from prior exam. ACT 112: Negative or not required by law. Electronically signed by: Umair Tan M.D. 12/21/2021 11:09 AM
[2021-12-21 11:14] LABS: Basophils # (auto) 0.05 K/uL (0-0.2); Basophils % (auto) 0.3 %; Immature Granulocytes % (auto) 0.5 %; Lymphocytes # (auto) 0.32 K/uL (1.2-3.4); Lymphocytes % (auto) 1.6 %; Monocytes # (auto) 0.87 K/uL (0.24-0.82); Monocytes % (auto) 4.4 %; Neutrophils # (auto) 18.38 K/uL (1.4-6.5); Neutrophils % (auto) 93.2 %; Troponin I High Sensitivity 82.4 pg/ml (0-14)
[2021-12-21 11:33] LABS: Base Excess VBG -1.4 mEq/L; HCO3 VBG 23 mmol/L; Oxygen Saturation VBG 71.2 %; PCO2 VBG 36 mmHg (38-50); PO2 VBG 39 mmHg; pH VBG 7.41 (7.36-7.41)
[2021-12-21] MEDS ORDERED: STAT IV Infusion **Titration per Protocol STA (11:42)
[2021-12-21] MEDS: MAGNESIUM SULFATE / D5W 1 GM/100 ML BAG IV SCH ×2 (11:45→13:25)
[2021-12-21] MEDS ORDERED: NITROGLYCERIN/D5W 100MCG/ML 250 ML IV SCH (11:45)
[2021-12-21] MEDS ORDERED: HEPARIN SODIUM/DEXTROSE 25,000 UNITS/500 ML BAG IV SCH ×2 (12:00→14:00)
[2021-12-21] MEDS ORDERED: Heparin IV Adult Wt-Based Standard *NO* Bolus Protocol IV STA (12:03)
[2021-12-21 12:04] LABS: Influenza A virus by PCR Negative (Neg); Influenza B virus by PCR Negative (Neg); RSV by PCR Negative (Neg); SARS CoV2 RNA(COVID-19) InHosp NEGATIVE (Negative)
--- NOTE | 2021-12-21 12:09 | History & Physical Report ---
Date of Service December 21, 2021 Assessment & Plan (1) Acute on chronic heart failure with preserved ejection fraction (HFpEF): Plan: Suspect secondary to aortic stenosis in setting of recently discontinued spironolactone (due to hyperkalemia) +/- NSTEMI (see below) Lasix 40mg IV given in the ER, will continue 40mg IV daily as she previously responded to this dose (20mg IV BID) during her May admission. IV nitroglycerin - wean parameters per BP in place TTE Strict I&Os, daily weights Consult cardiology (2) NSTEMI (non-ST elevated myocardial infarction): Plan: Possible, not ruled out. No chest pain/pressure but having shortness of breath. Awaiting stat echocardiogram Uptrending troponin is concerning for true NSTEMI rather than just demand - discussed with Dr Rios on admission and wishes to initially treat for CHF awaiting echo and trending troponins but likely to need cardiac catheterization later on this admission ASA 324mg PO now, then continue 81mg PO daily I am unclear why she is not on a BB after her last NSTEMI - will defer starting one to cardiology IV heparin low dose without bolus as discussed with Dr Rios Continue atorvastatin 40mg PO daily Not on lisinopril, recently discontinued due to hyperkalemia Continue IV nitroglycerin to help with BP and CHF Lipid profile and HbA1C in AM (3) Acute neutrophilia: Plan: Concerning for infection however procalcitonin negative and downtrending without symptoms/signs of infection. UA negative for infection. Blood cultures taken but antibiotics deferred on admission. Continue to trend CBC (4) Acute respiratory failure with hypoxia: Plan: Given significant oxygen requirement and acute NSTEMI not ruled out recommend admission to ICU - discussed with Dr Meyer Aim O2 sats > 94% (5) Chronic blood loss anemia: Plan: Recent admission for this. Continue pantoprazole 40mg p.o. twice daily Monitor hemoglobin closely while on aspirin and heparin IV drip however hemoglobin has been stable on aspirin and Eliquis as outpatient. (6) DM (diabetes mellitus): Plan: Hemoglobin A1c 7.0 in May. Repeat with a.m. labs. Hold her usual glimepiride. Consult pharmacy for glycemic control in the setting of possible NSTEMI (7) Hypertension: Plan: Currently hypertensive on admission due to missing her usual home medication this morning. Give her usual amiodarone 200 mg p.o., amlodipine 10 mg p.o. and hydralazine 100 mg p.o. now. Continue amiodarone, amlodipine (she is currently taking over the max dose of 10mg PO BID, will decrease to daily as unlikely having much added effect especially with concurrent hydralazine), hydralazine. IV lasix and nitroglycerin as above (8) Hypomagnesemia: Plan: Magnesium level 1.6. Magnesium sulfate 1 g IV x2 given in the ER. Repeat level in a.m. Continue her chronic magnesium oxide 400 mg p.o. every morning (9) Paroxysmal atrial fibrillation: Plan: Hold Eliquis due to possible need for cardiac catheterization. Started on low- dose heparin IV drip. Continue rhythm control strategy with amiodarone 200 mg p.o. daily Plan VTE prophylaxis - low-dose heparin drip without bolus Diet - heart healthy, T2DM, low-sodium, fluid restricted Disposition - admit to ICU Admission and Anticipated Discharge Date Admission Date: December 20, 2021 History of Present Illness Chief Complaint: Shortness of breath Primary Care Provider: DO Adri Gonzalez Bryanna is a 81-year-old female who presents to the ER via EMS from the [facility] with acute shortness of breath and hypoxia with O2 sats down to 80s. She reports however her shortness of breath started suddenly last night at rest around 9:30pm. Associated with palpitations, orthopnea and PND. No claudication, presyncope, chest pain or pressure. She was recently taken off lisinopril and spironolactone and started on a fluid restriction one week ago due to hyperkalemia. Her pantoprazole was also increased to 40mg PO BID although hemoglobin has been stable. To help with her blood pressure with taking her off medications, her clonidine was increased to BID from . She reports increased leg swelling progressively getting worse since the medication changes. Yesterday breakfast and lunch time she felt like her normal self. No fever, chills, cough, nasal congestion, sinus pain. No urinary symptoms. Her appointment today was an ultrasound to check on her femoral bypass which she had to fast for so she also did not take her usual morning medications and last took her medications last night including Eliquis. The patient was recently admitted from October 30 to November 06, 2021 due to vomiting and diarrhea and diagnosed with LEV, hyponatremia, GI bleed and hyperkalemia. T he LEV improved with intravenous fluids but was also diuresed during this admission to help with her sodium levels. She received 2 units packed red blood cells during inpatient admission. Spironolactone and lisinopril were resumed on discharge. EGD showed diffuse gastritis with patchy submucosal hemorrhage, colonoscopy showed no bleeding. She has a significant cardiac history with a non-ST elevation myocardial infarction in October 2018 with drug-eluting stent placed to the ostial RCA. She has residual mid LAD disease 20 to 30%; mid circumflex disease in the range of 60 to 70%; mid to distal RCA disease in the range of 40 to 50%. She also has moderate aortic stenosis. In the ER white blood count 19.72 which was mainly neutrophilia. High- sensitivity troponin 82.4. Chest x-ray was concerning for moderate pulmonary edema. She was given IV Lasix 40mg for CHF and started on a nitroglycerin drip due to her high blood pressure and concern for NSTEMI. Case was discussed with Dr Rios (inserter operator) by the ER provider and recommended TTE and trending troponin to decide on urgent catheterization but not needed currently. She was referred to medicine for admission and ongoing management of edema and NSTEMI. Allergies Allergy/AdvReac Type Severity Reaction Status Date / Time fenofibrate AdvReac Intermediate INCREASED Verified 11/05/21 14:43 URINATION metoprolol AdvReac Intermediate VOMIT,DIARR Verified 11/05/21 14:43 HEA verapamil AdvReac Intermediate INCREASED Verified 11/05/21 14:43 URINATION valsartan AdvReac Mild Weakness Verified 11/05/21 14:43 Home Medications Medication Instructions Recorded Confirmed Type aspirin 81 mg tablet,delayed 81 mg PO HS 03/04/20 12/21/21 History release clonidine HCl 0.1 mg tablet 0.1 mg PO BID 03/04/20 12/21/21 History metformin 500 mg tablet,extended 1,000 mg PO BIDM 03/04/20 12/21/21 History release 24 hr coenzyme Q10 100 mg capsule 100 mg PO QAM 12/01/20 12/21/21 History (CoQ-10) fish, borage, flaxseed oils-omega 1 cap PO QDD 12/01/20 12/21/21 History 3,6,9 comb no.1 1,200 mg capsule ([place] 3-6-9) atorvastatin 40 mg tablet 40 mg PO QAM 02/26/21 12/21/21 History multivitamin 1 tab PO QAM 02/26/21 12/21/21 History ferrous sulfate 325 mg (65 mg 325 mg PO BID #60 tabs 05/02/21 12/21/21 Rx iron) tablet amiodarone 200 mg tablet 200 mg PO QAM 07/01/21 12/21/21 History amlodipine 5 mg tablet 10 mg PO BID 07/01/21 12/21/21 History apixaban 5 mg tablet (Eliquis) 5 mg PO BID 07/01/21 12/21/21 History hydralazine 100 mg tablet 100 mg PO TID 07/01/21 12/21/21 History magnesium oxide 400 mg (241.3 mg 400 mg PO QAM 07/01/21 12/21/21 History magnesium) tablet pantoprazole 40 mg tablet,delayed 40 mg PO BID 07/01/21 12/21/21 History release glimepiride 4 mg tablet 8 mg PO DAILY 12/21/21 12/21/21 History sodium chloride 1,000 mg soluble 1,000 mg PO DAILY 12/21/21 12/21/21 History tablet Past Med/Surg History Medical History (Updated 12/22/21 @ 06:40 by Vlad Thompson MD) Anemia Bradycardia CAD (coronary artery disease) CVA (cerebral vascular accident) (~2018) no deficits Encounter for pre-operative examination Hyperlipemia Hypertension Hypertensive urgency Myocardial infarct, old follows with Dr. Mcpherson PAD (peripheral artery disease) Pneumonia hx S/P angiogram of extremity (02/02/21) Type 2 diabetes mellitus with diabetic neuropathy, unspecified NIDDM Surgical History H/O removal of cyst right abdominal area History of bunionectomy of right great toe History of cardiac cath (~2019) History of heart artery stent (~2019) x1. at [facility]. Status post ORIF of fracture of ankle Family History Other No family history of adverse response to anesthesia Social History Smoking Status: Former smoker Tobacco Type: Cigarettes Number of Years Since Quit: 40; Second Hand Exposure: No; Hx Alcohol Use: No Hx Substance Use: No Preferred Language: Berm[place]ian Communication Ability: Unable Battery Checker Required: No Beliefs That Will Affect Care: None marital status: / Current Living Situation: Alone Current Living Situation Comment: [employer] style home current occupational status: retired How many Children do You have: 1 Feels Safe at Home: Yes Assistive Devices: None Review of Systems Review of Systems: All systems reviewed & are unremarkable except as noted in HPI & below Physical Exam Constitutional: well developed and well nourished; no acute distress Eyes: PERRL, conjunctivae normal, anicteric sclerae ENMT: external ear and nose normal, oropharynx normal Neck: trachea midline, no thyromegaly Respiratory: + respiratory distress, + labored breathing, + uses accessory muscles and able to speak in complete sentences; + abnormal respiratory effort Auscultation: + crackles (bibasal to mid zone on back); no wheezes Cardiovascular: Rate/Rhythm: regular rate and regular rhythm Heart Sounds: + murmur (systolic) Extremities: normal capillary refill and + pedal edema (1+ pre-tibial b/l equal) Gastrointestinal (Abdomen): normal bowel sounds, soft, nontender, no hepatosplenomegaly Musculoskeletal: no cyanosis or clubbing, extremities motor strength 5/5 Skin: no rashes, warm and dry Neurologic: moves all extremities and awake; not confused Psychiatric: A+Ox3, euthymic affect Results & Data Results & Data ([facility]) Vital Signs (Past 12 Hours) Vital Signs Temp Pulse Resp BP Pulse Ox O2 Del Method O2 Flow Rate 12/21/21 10:37 Nasal Cannula 4 12/21/21 10:32 Room Air 12/21/21 10:32 36.6 C 92 H 20 171/78 H 83 L Room Air Laboratory Results Abnormal lab results 12/21/21 12/21/21 12/21/21 Range/Units 10:36 10:36 10:36 WBC 19.72 H (4.8-10.8) K/ul RBC 3.46 L (3.93-5.22) M/uL Hgb 9.0 L (12.0-16.0) g/dl Hct 28.0 L (34.1-44.9) % RDW Std Deviation 57.0 H (36.4-46.3) fL RDW Coeff of Alysa 19.5 H (11.5-14.5) % Neut # (Auto) 18.38 H (1.4-6.5) K/uL Lymph # (Auto) 0.32 L (1.2-3.4) K/uL Stephens # (Auto) 0.87 H (0.24-0.82) K/uL Immature Gran # (Auto) 0.10 H (0.00-0.02) K/uL PT 12.7 H (9.0-12.0) Seconds INR 1.2 H (0.9-1.1) APTT 33.6 H (21.0-31.0) Seconds VBG pCO2 (38-50) mmHg Sodium 131 L (136-145) mmol/L Glucose 236 H (70-99(Fasting)) mg/dl Magnesium 1.6 L (1.7-2.4) mg/dl AST 12 L (13-39) U/L Troponin I High Sens 82.4 H* D (0-14) pg/ml Lipase 10 L (11-82) U/L 12/21/21 Range/Units 11:18 WBC (4.8-10.8) K/ul RBC (3.93-5.22) M/uL Hgb (12.0-16.0) g/dl Hct (34.1-44.9) % RDW Std Deviation (36.4-46.3) fL RDW Coeff of Alysa (11.5-14.5) % Neut # (Auto) (1.4-6.5) K/uL Lymph # (Auto) (1.2-3.4) K/uL Stephens # (Auto) (0.24-0.82) K/uL Immature Gran # (Auto) (0.00-0.02) K/uL PT (9.0-12.0) Seconds INR (0.9-1.1) APTT (21.0-31.0) Seconds VBG pCO2 36 L (38-50) mmHg Sodium (136-145) mmol/L Glucose (70-99(Fasting)) mg/dl Magnesium (1.7-2.4) mg/dl AST (13-39) U/L Troponin I High Sens (0-14) pg/ml Lipase (11-82) U/L Diagnostic Findings XR chest 1V portable CLINICAL HISTORY: Chest Pain TECHNIQUE: Single frontal radiograph of the chest was obtained. Comparison: Comparison is made to chest radiograph 11/01/2021 FINDINGS: No lines and tubes are seen. The cardiomediastinal silhouette is stable. Calcified aortic arch is noted. There is prominence and cephalization of the vasculature with Charito B lines seen. No evidence of pleural effusion or pneumothorax. IMPRESSION: Moderate pulmonary edema, increased from prior exam. Medications Administered ER medications given: Heparin IV adult without bolus Nitroglycerin IV Magnesium sulfate 1 g IV x2 ECG Indication: SOB/dyspnea Rate (beats per minute): 84 Rhythm: normal sinus Findings: + ST depression (Lateral) Comparison ECG Date: from (May 17, 2021) Change: the following changes noted (ST changes are new) Code Status & VTE Plan Code Status Full VTE Prophylaxis Plan VTE Prophylaxis will be ordered: Yes PG Care Time/CCT Total # of Minutes Spent Total Time Spent with Patient: Total time spent is greater than 50% in coordination of care (as documented) at patient's floor/unit and/or counseling patient: Coding Level of Care Code 01586 Initial Inpt Care Lvl 3 Diagnoses Acute on chronic heart failure with preserved ejection fraction (HFpEF) I50.33 NSTEMI (non-ST elevated myocardial infarction) I21.4 Acute neutrophilia D72.828 Acute respiratory failure with hypoxia J96.01 Chronic blood loss anemia D50.0 DM (diabetes mellitus) E11.9 Hypertension I10 Hypertension type: unspecified Hypomagnesemia E83.42 Paroxysmal atrial fibrillation I48.0 (1) Hypertension Hypertension type: unspecified Qualified Code(s): I10 - Essential (primary) hypertension
[2021-12-21] MEDS ORDERED: PANTOprazole 40 MG in SYRINGE 0 ML IV ONE (12:22)
[2021-12-21] MEDS ORDERED: FAMOTIDINE 20 MG in SYRINGE 3 ML IV SCH (12:30)
[2021-12-21] MEDS ORDERED: FAMOTIDINE 20MG IV PUSH 20 MG/5 ML SYR IV STA (13:05)
[2021-12-21] MEDS ORDERED: amLODIPine BESYLATE 5 MG TAB PO STA (13:12)
[2021-12-21] MEDS ORDERED: hydrALAZINE TAB 50 MG TAB PO STA (13:13)
[2021-12-21] MEDS ORDERED: AMIODARONE 200 MG TAB PO STA (13:13)
[2021-12-21] MEDS ORDERED: ASPIRIN 81 MG CHEW PO STA (13:25)
[2021-12-21] MEDS ORDERED: Heparin IV Adult Wt-Based Low-Dose *NO* Bolus Protocol IV SCH (14:00)
[2021-12-21] MEDS: HEPARIN SODIUM/DEXTROSE 25,000 UNITS/500 ML BAG IV SCH (14:04)
--- NOTE | 2021-12-21 14:51 | XCELERA ---
[id number]
--- NOTE | 2021-12-21 15:10 | Critical Care Consultation ---
Date of Consultation December 21, 2021 Assessment & Plan (1) Acute respiratory failure with hypoxia: (2) NSTEMI (non-ST elevated myocardial infarction): (3) Acute on chronic heart failure with preserved ejection fraction (HFpEF): (4) Paroxysmal atrial fibrillation: (5) Hypertensive urgency: Plan 81-year-old female with a history of chronic anemia, hypertension, hyperlipidemia, coronary artery disease, diabetes mellitus and paroxysmal atrial fibrillation on Eliquis presenting to the hospital due to increasing shortness of breath and acute on chronic diastolic heart failure Neurologic: Avoid sedation due to tenuous respiratory status. No significant issues at present. Pulmonary: Continue BiPAP in the setting of acute diastolic CHF. Chest x-ray reviewed the findings of increased interstitial markings consistent with CHF. Continue diuresis Cardiovascular: Continue amiodarone. Continue nitroglycerin and wean as tolerated to offload the heart. Continue diuretic therapy. Monitor urine output closely. Patient with demand ischemia based on elevated troponin. Echo pending. Cardiology consult pending. Gastrointestinal: Recent GI bleed. Monitor closely while on heparin infusion. N.p.o. at this time. Renal: Monitor urine output, electrolytes and creatinine Infectious disease: No obvious infectious etiology at this time Hematologic: Heparin infusion. Monitor hemoglobin. Endocrine: Maintain euglycemia given history of diabetes. VTE prophylaxis: Heparin infusion CODE STATUS: Full Family at bedside: Not at bedside Disposition: ICU Discussed with hospitalist over the phone and discussed with bedside nurse at the bedside. I have personally spent 38 minutes of critical care time in the direct management of this patient. This is a life/limb threatening event. This includes time spent evaluating patient, direct bedside care, chart review, placing o rders, interpretation of diagnostic studies, discussion with consultants, patient, and family members, as well as other required patient management activities. This time is exclusive of all separately billable procedures, and teaching time and separate from and in addition to any other critical care service time. Thank you for allowing us to participate in the care of this patient. History of Present Illness Reason for Consultation: Hypertensive urgency and CHF History of Present Illness 81-year-old female with a past medical history of diastolic heart failure, atrial fibrillation, coronary artery disease, type 2 diabetes mellitus, hypertension and hyperlipidemia presenting to the hospital due to shortness of breath and hypoxemia. She was in the [facility] vascular office and found to have saturations in the 80s. She had orthopnea last night. She had LEV and hyperkalemia last week and was taken off lisinopril and spironolactone. She has had increased swelling and shortness of breath since that period of time. She was recently in the hospital about 1 month ago due to a GI bleed and LEV. On this admission she has an elevated troponin and chest x-ray consistent with CHF. Cardiology was consulted. Patient is currently on a heparin infusion from the ER. She received 40 mg of IV Lasix with adequate urine output. She is currently on BiPAP. Systolic blood pressure in the 160s on 5 mg an hour of nitroglycerin. She denies chest pain. She does have shortness of breath with minimal exertion. Allergies Allergy/AdvReac Type Severity Reaction Status Date / Time fenofibrate AdvReac Intermediate INCREASED Verified 11/05/21 14:43 URINATION metoprolol AdvReac Intermediate VOMIT,DIARR Verified 11/05/21 14:43 HEA verapamil AdvReac Intermediate INCREASED Verified 11/05/21 14:43 URINATION valsartan AdvReac Mild Weakness Verified 11/05/21 14:43 Home Medications Medication Instructions Recorded Confirmed Type aspirin 81 mg tablet,delayed 81 mg PO HS 03/04/20 12/21/21 History release clonidine HCl 0.1 mg tablet 0.1 mg PO BID 03/04/20 12/21/21 History metformin 500 mg tablet,extended 1,000 mg PO BIDM 03/04/20 12/21/21 History release 24 hr coenzyme Q10 100 mg capsule 100 mg PO QAM 12/01/20 12/21/21 History (CoQ-10) fish, borage, flaxseed oils-omega 1 cap PO QDD 12/01/20 12/21/21 History 3,6,9 comb no.1 1,200 mg capsule ([place] 3-6-9) atorvastatin 40 mg tablet 40 mg PO QAM 02/26/21 12/21/21 History multivitamin 1 tab PO QAM 02/26/21 12/21/21 History ferrous sulfate 325 mg (65 mg 325 mg PO BID #60 tabs 05/02/21 12/21/21 Rx iron) tablet amiodarone 200 mg tablet 200 mg PO QAM 07/01/21 12/21/21 History amlodipine 5 mg tablet 10 mg PO BID 07/01/21 12/21/21 History apixaban 5 mg tablet (Eliquis) 5 mg PO BID 07/01/21 12/21/21 History hydralazine 100 mg tablet 100 mg PO TID 07/01/21 12/21/21 History magnesium oxide 400 mg (241.3 mg 400 mg PO QAM 07/01/21 12/21/21 History magnesium) tablet pantoprazole 40 mg tablet,delayed 40 mg PO BID 07/01/21 12/21/21 History release glimepiride 4 mg tablet 8 mg PO DAILY 12/21/21 12/21/21 History sodium chloride 1,000 mg soluble 1,000 mg PO DAILY 12/21/21 12/21/21 History tablet Patient History Medical History (Updated 12/21/21 @ 15:10 by Ronnie Meyer MD) Anemia Bradycardia CAD (coronary artery disease) CVA (cerebral vascular accident) (~2019) no deficits Encounter for pre-operative examination Hyperlipemia Hypertension Hypertensive urgency Myocardial infarct, old follows with Dr. Mcpherson PAD (peripheral artery disease) Pneumonia hx S/P angiogram of extremity (02/02/21) Type 2 diabetes mellitus with diabetic neuropathy, unspecified NIDDM Surgical History H/O removal of cyst right abdominal area History of bunionectomy of right great toe History of cardiac cath (~2018) History of heart artery stent (~2018) x1. at [facility]. Status post ORIF of fracture of ankle Family History Other No family history of adverse response to anesthesia Social History Smoking Status: Former smoker Tobacco Type: Cigarettes Number of Years Since Quit: 40; Second Hand Exposure: No; Hx Alcohol Use: No Hx Substance Use: No Preferred Language: Icelandic Communication Ability: Unable Neurology Technician Required: No Beliefs That Will Affect Care: None marital status: / Current Living Situation: Alone Current Living Situation Comment: ranch style home current occupational status: retired How many Children do You have: 1 Feels Safe at Home: Yes Assistive Devices: None Review of Systems Review of Systems: All systems reviewed & are unremarkable except as noted in HPI & below Physical Exam Physical Exam: Constitutional: Elderly appearing female in mild distress with a BiPAP mask in place. Eyes: Pupils are equal round and reactive to light. Conjunctivae are normal. Anicteric sclera. Ears nose, mouth and throat: No deformities. BiPAP mask in place. Neck: Trachea is midline. Visual inspection is normal. Respiratory: Coarse rhonchi and crackles bilaterally. Mildly increased work of breathing. Cardiovascular: Regular rate and rhythm. No murmurs. Trace edema. Gastrointestinal: Normal bowel sounds, soft, nontender and nondistended. No hepatosplenomegaly noted. Musculoskeletal: No cyanosis. Patient is able to move all extremities. Skin: No rashes, warm dry and intact. Neurologic: No obvious focal neurological deficits seen. Psychiatric: Alert and oriented x3 with a euthymic affect. Results & Data Results & Data ([facility]) Vital Signs (Past 12 Hours) Vital Signs Temp Pulse Pulse Resp BP BP Pulse Ox 12/21/21 13:00 78 20 163/102 H 95 12/21/21 10:37 12/21/21 10:32 12/21/21 10:32 36.6 C 92 H 20 171/78 H 83 L O2 Del Method O2 Flow Rate 12/21/21 13:00 Oxymask 15 12/21/21 10:37 Nasal Cannula 4 12/21/21 10:32 Room Air 12/21/21 10:32 Room Air Coding Level of Care Code Critical Care 1st 30-74 mins Diagnoses Acute respiratory failure with hypoxia J96.01 NSTEMI (non-ST elevated myocardial infarction) I21.4 Acute on chronic heart failure with preserved ejection fraction (HFpEF) I50.33 Paroxysmal atrial fibrillation I48.0 Hypertensive urgency I16.0 Time Spent (min) 38
[2021-12-21] MEDS ORDERED: PHARMACY GLYCEMIC MGMT CONSULT PRN (15:14)
[2021-12-21] MEDS ORDERED: ICU PROTOCOL FOR HYPERGLYCEMIA PRN (15:14)
[2021-12-21] MEDS ORDERED: GLUCOSE 40% GEL 15 GM TUBE PO PRN (16:00)
[2021-12-21] MEDS ORDERED: CARBOHYDRATES FOR HYPOGLYCEMIA PO PRN (16:00)
[2021-12-21] MEDS ORDERED: GLUCAGON FOR INJ 1 MG VIAL IM PRN (16:00)
[2021-12-21] MEDS ORDERED: DEXTROSE 50% 50 ML SYRINGE IV PRN (16:00)
[2021-12-21] MEDS ORDERED: GLUCOSE 10 TAB/TUBE PO PRN (16:00)
[2021-12-21 16:05] LABS: Partial Thromboplastin Ratio 1.3
[2021-12-21] MEDS ORDERED: NON-FORMULARY MEDICATION (Fish,Bora,Flax Oils-Om3,6,9no1 [Omega 3-6-9] 1,200 mg Capsule) PO SCH (16:30)
[2021-12-21] MEDS: INSULIN ASPART PER UNIT SC SCH ×2 (17:06→21:34)
[2021-12-21 17:40] LABS: Appearance Urine Clear (Clear); Bacteria Urine Automated Negative (Negative); Bilirubin Urine Negative (Negative); Blood Urine 1+ (Negative); Cast Urine Automated 0 /lpf (0-5); Color Urine Yellow; Epithelial Cell Urine Auto 0-5 /lpf (0-5); Glucose Urine UA Negative (Negative); Ketones Urine Negative (Negative); Leukocyte Esterase Urine Trace (Negative); Nitrite Urine Negative (Negative); Protein Urine Negative (Negative); Specific Gravity Urine 1.006 (1.000-1.030); Urobilinogen Urine Negative (Negative)
[2021-12-21 18:10] LABS: Basophils # (auto) 0.02 K/uL (0-0.2); Basophils % (auto) 0.1 %; Hematocrit (blood only) 25.7 % (34.1-44.9); Hemoglobin 8.4 g/dl (12.0-16.0); Immature Granulocytes # (auto) 0.04 K/uL (0.00-0.02); Immature Granulocytes % (auto) 0.3 %; Lymphocytes # (auto) 0.69 K/uL (1.2-3.4); Lymphocytes % (auto) 4.8 %; Mean Corpuscular Hemoglobin 26.2 pg (25.0-34.0); Mean Corpuscular Hgb Conc 32.7 g/dL (32.0-36.0); Mean Corpuscular Volume 80.1 fL (80.0-100.0); Mean Platelet Volume 12.1 fL (9.4-12.3); Monocytes # (auto) 0.95 K/uL (0.24-0.82); Monocytes % (auto) 6.6 %; Neutrophils # (auto) 12.61 K/uL (1.4-6.5); Neutrophils % (auto) 88.2 %; Platelet Count 251 K/uL (130-400); RDW Standard Deviation 55.7 fL (36.4-46.3); Red Blood Count 3.21 M/uL (3.93-5.22); White Blood Count 14.31 K/ul (4.8-10.8)
[2021-12-21 20:35] LABS: Partial Thromboplastin Ratio 1.4; Partial Thromboplastin Time 38.2 Seconds (21.0-31.0)
[2021-12-21] MEDS: FERROUS SULFATE 325 MG TAB PO SCH (21:33)
[2021-12-21] MEDS: PANTOprazole 40 MG TAB PO SCH (21:33)
[2021-12-21] MEDS: hydrALAZINE TAB 50 MG TAB PO SCH (21:33)
[2021-12-22 00:30] LABS: Hematocrit (blood only) 25.3 % (34.1-44.9); Hemoglobin 8.2 g/dl (12.0-16.0)
[2021-12-22 04:50] LABS: Basophils # (auto) 0.04 K/uL (0-0.2); Basophils % (auto) 0.4 %; Eosinophils # (auto) 0.01 K/uL (0-0.50); Eosinophils % (auto) 0.1 %; Hematocrit (blood only) 26.1 % (34.1-44.9); Hemoglobin 8.5 g/dl (12.0-16.0); Immature Granulocytes # (auto) 0.04 K/uL (0.00-0.02); Immature Granulocytes % (auto) 0.4 %; Lymphocytes % (auto) 9.7 %; Mean Corpuscular Hemoglobin 25.9 pg (25.0-34.0); Mean Corpuscular Hgb Conc 32.6 g/dL (32.0-36.0); Mean Corpuscular Volume 79.6 fL (80.0-100.0); Mean Platelet Volume 12.8 fL (9.4-12.3); Monocytes # (auto) 0.99 K/uL (0.24-0.82); Monocytes % (auto) 8.7 %; Neutrophils # (auto) 9.18 K/uL (1.4-6.5); Neutrophils % (auto) 80.7 %; Platelet Count 261 K/uL (130-400); RDW Standard Deviation 55.4 fL (36.4-46.3); Red Blood Count 3.28 M/uL (3.93-5.22); White Blood Count 11.36 K/ul (4.8-10.8)
[2021-12-22 04:56] LABS: Albumin Globulin Ratio 1.3 (0.9-2); Albumin Level 3.5 gm/dl (3.4-5.0); BUN Creatinine Ratio 16.1 (10-20); Bilirubin,Total 0.7 mg/dl (0.2-1.0); Calcium 8.4 mg/dl (8.5-10.1); Chol HDL Ratio 1.8 (0-5); Est GFR (African American) 73.4 ml/min; Est GFR (Non-African American) 63.4 ml/min; Globulin 2.7 gm/dl (2.5-4.0); Magnesium 1.9 mg/dl (1.7-2.4); Potassium 3.4 mmol/L (3.5-5.1); Total Protein 6.2 gm/dl (6.0-8.3)
[2021-12-22 05:00] LABS: Partial Thromboplastin Ratio 1.3; Partial Thromboplastin Time 37.1 Seconds (21.0-31.0)
[2021-12-22] MEDS ORDERED: HEPARIN SOD (PORCINE) 1000 UNIT/ML IV ONE (06:45)
[2021-12-22 07:52] LABS: Estimated Average Glucose 134 mg/dl; Hemoglobin A1C 6.3 % (4.5-5.6)
[2021-12-22] MEDS: INSULIN ASPART PER UNIT SC SCH ×4 (08:34→21:33)
[2021-12-22] MEDS: MULTIVITAMIN TAB PO SCH (08:42)
[2021-12-22] MEDS: FERROUS SULFATE 325 MG TAB PO SCH ×2 (08:42→21:33)
[2021-12-22] MEDS: MAGNESIUM OXIDE 400 MG TAB PO SCH (08:42)
[2021-12-22] MEDS: PANTOprazole 40 MG TAB PO SCH ×2 (08:42→22:33)
[2021-12-22] MEDS: FUROSEMIDE 40 MG/4 ML VIAL IV SCH (08:42)
[2021-12-22] MEDS: hydrALAZINE TAB 50 MG TAB PO SCH ×3 (08:42→21:33)
[2021-12-22] MEDS: ATORVASTATIN 40 MG TAB PO SCH (08:43)
[2021-12-22] MEDS: ASPIRIN 81 MG ECTAB PO SCH (08:43)
[2021-12-22] MEDS: amLODIPine BESYLATE 5 MG TAB PO SCH (08:43)
[2021-12-22] MEDS: AMIODARONE 200 MG TAB PO SCH (08:43)
[2021-12-22] MEDS ORDERED: NON-FORMULARY MEDICATION (Coenzyme Q10 [Coq-10] 100 mg Capsule) PO SCH (09:00)
--- NOTE | 2021-12-22 09:19 | Critical Care Progress Note ---
Date of Service December 22, 2021 Assessment & Plan (1) Acute respiratory failure with hypoxia: (2) NSTEMI (non-ST elevated myocardial infarction): (3) Acute on chronic heart failure with preserved ejection fraction (HFpEF): (4) Paroxysmal atrial fibrillation: (5) Hypertensive urgency: Plan 81-year-old female with a history of chronic anemia, hypertension, hyperlipidemia, coronary artery disease, diabetes mellitus and paroxysmal atrial fibrillation on Eliquis presenting to the hospital due to increasing shortness of breath and acute on chronic diastolic heart failure Neurologic: No acute issues. Pulmonary: Chest x-ray and clinical exam findings consistent with CHF and pulmonary edema. Continue diuresis per primary team. Cardiology consult pending. No signs of infectious etiology from pulmonary perspective at this time. Continue to wean oxygen as able. BiPAP as needed. Cardiovascular: Continue amiodarone. Patient has been weaned off nitroglycerin. Continue home antihypertensive regimen. Echo with worsening aortic stenosis. Cardiology consult pending. Patient may require a work-up for TAVR in the near future. Gastrointestinal: Recent GI bleed. Hemoglobin slowly trending downwards on heparin infusion. We will continue to monitor closely. Diet ordered per primary team. Renal: Replace electrolytes per protocol. Adequate urine output with Lasix. Infectious disease: No obvious infectious etiology at this time Hematologic: Heparin infusion. Mild drop in hemoglobin. Monitor closely. Endocrine: Maintain euglycemia given history of diabetes. VTE prophylaxis: Heparin infusion CODE STATUS: Full Family at bedside: Not at bedside Disposition: Okay to downgrade to PCU status. Admission and Anticipated Discharge Date Admission Date: December 21, 2021 Subjective Patient seen and examined. She is much less short of breath than yesterday. She denies any chest pain. Appetite remains poor. Currently needing 8 L of oxygen. Review of Systems Review of Systems: All systems reviewed & are unremarkable except as noted in HPI & below Physical Exam Physical Exam: Constitutional: Elderly appearing female in no significant distress saturating well on 8 L of oxygen. Eyes: Pupils are equal round and reactive to light. Conjunctivae are normal. Anicteric sclera. Ears nose, mouth and throat: No deformities. Neck: Trachea is midline. Visual inspection is normal. Respiratory: Mild crackles noted in the bibasilar distribution. No tachypnea. No wheeze. Cardiovascular: Regular rate and rhythm. No murmurs. Trace edema. Gastrointestinal: Normal bowel sounds, soft, nontender and nondistended. No hepatosplenomegaly noted. Musculoskeletal: No cyanosis. Patient is able to move all extremities. Skin: No rashes, warm dry and intact. Neurologic: No obvious focal neurological deficits seen. Psychiatric: Alert and oriented x3 with a euthymic affect. Results & Data Results & Data ([facility]) Vital Signs (Past 12 Hours) Vital Signs Pulse Resp BP Pulse Ox O2 Del Method O2 Flow Rate FiO2 12/22/21 07:26 Oxymask 10 12/22/21 06:00 79 22 92 12/22/21 06:00 175/76 H 12/22/21 05:30 85 23 95 12/22/21 05:30 162/73 H 12/22/21 05:00 92 H 20 92 12/22/21 05:00 170/82 H 12/22/21 04:31 89 24 87 L 12/22/21 04:31 154/69 H 12/22/21 04:00 81 23 95 12/22/21 04:00 157/58 H 12/22/21 03:30 80 20 95 12/22/21 03:30 212/78 H 12/22/21 03:03 185/83 H 12/22/21 03:03 84 21 96 12/22/21 03:00 85 19 96 12/22/21 03:00 212/105 H 12/22/21 02:30 76 17 95 12/22/21 02:30 190/68 H 12/22/21 02:00 84 24 96 12/22/21 02:00 181/82 H 12/22/21 01:30 172/77 H 12/22/21 01:30 83 18 93 12/22/21 01:00 79 18 94 12/22/21 01:00 173/72 H 12/22/21 00:30 164/68 H 12/22/21 00:30 78 17 93 12/22/21 02:47 80 18 95 40 12/22/21 00:00 76 19 90 12/22/21 00:00 152/77 H 12/21/21 23:30 141/74 H 12/21/21 23:30 78 20 90 12/21/21 23:00 87 19 91 12/21/21 23:00 145/81 H 12/21/21 22:30 147/89 H 12/21/21 22:30 77 22 94 12/21/21 22:00 93 H 26 H 90 12/21/21 22:00 164/83 H 12/21/21 21:30 149/89 H 12/21/21 21:30 78 21 92 12/21/21 23:20 81 32 H 92 40 Coding Level of Care Code 57902 Subseq Hosp Care Lvl 3 Diagnoses Acute respiratory failure with hypoxia J96.01 NSTEMI (non-ST elevated myocardial infarction) I21.4 Acute on chronic heart failure with preserved ejection fraction (HFpEF) I50.33 Paroxysmal atrial fibrillation I48.0 Hypertensive urgency I16.0
--- NOTE | 2021-12-22 10:27 | Cardiology Consultation ---
Date of Consultation December 22, 2021 History of Present Illness Reason for Consultation: Reason for consultation: Non-ST ovation myocardial infarction, moderate to severe aortic stenosis, acute on chronic diastolic heart failure Patient was admitted with increasing shortness of breath and hypoxemia. She was seen in the office for a vascular study was found to have a pulse oximetry in the low 80s. It was advised that she come to the hospital. Initially she needed BiPAP and has been weaned to nasal cannula. She has diuresed nicely so far. She is chronically hyponatremic. Her sodium is actually improving with diuresis. She notes at home she just was not feeling well for about 48 hours. She did not have an appetite. She denies central chest tightness or chest pressure. She denied nausea or vomiting. She does think her abdomen was slightly more distended at home. She had no lower extremity edema. She does feel weak and tired. She has any bleeding or bruising dark stools or black stools. She remains anemic since her most recent hospitalization for GI bleed. She has remained on anticoagulation without a further drop in her hemoglobin. The rest of a complete her systems is negative She is awake alert oriented x3 she is in no acute distress HEENT: 2+ carotid upstrokes no evidence of carotid bruits Lungs: Decreased breath sounds in the bases bilaterally no rales rhonchi or wheezing Abdomen soft nontender Distended positive bowel sounds Extremities no clubbing or cyanosis she has no edema Psychiatric: Her affect appeared appropriate Assessment & Plan 1. Non-ST ovation myocardial infarction 2. Moderate to severe aortic stenosis with a dimensionless index of 0.37 and an aortic valve area indexed for her BSA of 0.62 cm/m 3. Acute on chronic diastolic heart failure Past cardiac history: 1. Accelerated hypertension. 2. Non-ST elevation myocardial infarction in October 2018 with a drug-eluting stent placed to the ostial RCA. 3. Residual mid LAD disease in the range of 20-30%; mid circumflex disease in the range of 60-70%; mid to distal RCA disease in the range of 40-50%. 4. Hyperlipidemia. 5. Moderate to severe aortic stenosis. 6. Preserved biventricular size and function this admission 7. Diabetes mellitus type 2. 8. Negative CT scan for renal artery stenosis 11/2020. 9. 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 10. History of a CVA in 2018. 11. Hyponatremia worsened by hydrochlorothiazide and potentially spironolactone - 12. Normal carotid ultrasound and no evidence of subclavian stenosis, January 09, 2021. 13. Paroxysmal AFib On anticoagulation and amiodarone to maintain sinus rhythm 14. Recent GI bleed September 2021 back on anticoagulation without a drop in her hemoglobin 15. History of hyperkalemia requiring admission to the hospital within the last 6 months I would continue with IV diuresis. It said she had nausea from metoprolol but beta-blockers are a life saving drug for her in light of her non-ST ovation myocardial infarction and her aortic stenosis. I would try low-dose Coreg carvedilol 3.125 mg twice daily which allow us to uptitrate it and improve her blood pressure control. She will need a heart catheterization before she leaves the hospital. This will allow us to see if she has had progression of her cardiovascular disease especially in light of her known moderate circumflex disease. She should remain on heparin with her recent GI bleed we will have to monitor her hemoglobin closely. Her degree of aortic stenosis is moderate to severe. listening to her S2 is still preserved and the murmur peaks just before the second heart sound. This is likely contributing though to some degree of diastolic heart failure along with her stiff ventricle associated with coronary ischemia. We will have to watch her sodium and her creatinine. At this point she is diuresing nicely with improvement in her overall sodium. We have significant concern that she is not able to still live at home on her own even with help from her children. She has had multiple admissions in the last 8 to 9 months. In addition she has had difficulty taking her medicines and been admitted with hyperkalemia and a GI bleed. environmental services lead should be consulted. All this was discussed with the cytology supervisor as well as the nursing staff. Attending Physician: Vlad Curry Allergies Allergy/AdvReac Type Severity Reaction Status Date / Time fenofibrate AdvReac Intermediate INCREASED Verified 11/05/21 14:43 URINATION metoprolol AdvReac Intermediate VOMIT,DIARR Verified 11/05/21 14:43 HEA verapamil AdvReac Intermediate INCREASED Verified 11/05/21 14:43 URINATION valsartan AdvReac Mild Weakness Verified 11/05/21 14:43 Home Medications Medication Instructions Recorded Confirmed Type aspirin 81 mg tablet,delayed 81 mg PO HS 03/04/20 12/21/21 History release clonidine HCl 0.1 mg tablet 0.1 mg PO BID 03/04/20 12/21/21 History metformin 500 mg tablet,extended 1,000 mg PO BIDM 03/04/20 12/21/21 History release 24 hr coenzyme Q10 100 mg capsule 100 mg PO QAM 12/01/20 12/21/21 History (CoQ-10) fish, borage, flaxseed oils-omega 1 cap PO QDD 12/01/20 12/21/21 History 3,6,9 comb no.1 1,200 mg capsule ([place] 3-6-9) atorvastatin 40 mg tablet 40 mg PO QAM 02/26/21 12/21/21 History multivitamin 1 tab PO QAM 02/26/21 12/21/21 History ferrous sulfate 325 mg (65 mg 325 mg PO BID #60 tabs 05/02/21 12/21/21 Rx iron) tablet amiodarone 200 mg tablet 200 mg PO QAM 07/01/21 12/21/21 History amlodipine 5 mg tablet 10 mg PO BID 07/01/21 12/21/21 History apixaban 5 mg tablet (Eliquis) 5 mg PO BID 07/01/21 12/21/21 History hydralazine 100 mg tablet 100 mg PO TID 07/01/21 12/21/21 History magnesium oxide 400 mg (241.3 mg 400 mg PO QAM 07/01/21 12/21/21 History magnesium) tablet pantoprazole 40 mg tablet,delayed 40 mg PO BID 07/01/21 12/21/21 History release glimepiride 4 mg tablet 8 mg PO DAILY 12/21/21 12/21/21 History sodium chloride 1,000 mg soluble 1,000 mg PO DAILY 12/21/21 12/21/21 History tablet Patient History Medical History (Updated 12/22/21 @ 06:40 by Vlad Thompson MD) Anemia Bradycardia CAD (coronary artery disease) CVA (cerebral vascular accident) (~2019) no deficits Encounter for pre-operative examination Hyperlipemia Hypertension Hypertensive urgency Myocardial infarct, old follows with Dr. Mcpherson PAD (peripheral artery disease) Pneumonia hx S/P angiogram of extremity (02/02/21) Type 2 diabetes mellitus with diabetic neuropathy, unspecified NIDDM Surgical History H/O removal of cyst right abdominal area History of bunionectomy of right great toe History of cardiac cath (~2019) History of heart artery stent (~2019) x1. at [facility] [place]. Status post ORIF of fracture of ankle Family History Other No family history of adverse response to anesthesia Social History Smoking Status: Former smoker Tobacco Type: Cigarettes Number of Years Since Quit: 40; Second Hand Exposure: No; Hx Alcohol Use: No Hx Substance Use: No Preferred Language: Irish Communication Ability: Unable Dance Instructor Required: No Beliefs That Will Affect Care: None marital status: / Current Living Situation: Alone Current Living Situation Comment: ranch style home current occupational status: retired How many Children do You have: 1 Feels Safe at Home: Yes Assistive Devices: None Results & Data ([place]) Vital Signs (Past 12 Hours) Vital Signs Pulse Resp BP Pulse Ox O2 Del Method O2 Flow Rate FiO2 12/22/21 08:00 Oxymask 12/22/21 07:26 Oxymask 10 12/22/21 06:00 79 22 92 12/22/21 06:00 175/76 H 12/22/21 05:30 85 23 95 12/22/21 05:30 162/73 H 12/22/21 05:00 92 H 20 92 12/22/21 05:00 170/82 H 12/22/21 04:31 89 24 87 L 12/22/21 04:31 154/69 H 12/22/21 04:00 81 23 95 12/22/21 04:00 157/58 H 12/22/21 03:30 80 20 95 12/22/21 03:30 212/78 H 12/22/21 03:03 185/83 H 12/22/21 03:03 84 21 96 12/22/21 03:00 85 19 96 12/22/21 03:00 212/105 H 12/22/21 02:30 76 17 95 12/22/21 02:30 190/68 H 12/22/21 02:00 84 24 96 12/22/21 02:00 181/82 H 12/22/21 01:30 172/77 H 12/22/21 01:30 83 18 93 12/22/21 01:00 79 18 94 12/22/21 01:00 173/72 H 12/22/21 00:30 164/68 H 12/22/21 00:30 78 17 93 12/22/21 02:47 80 18 95 40 12/22/21 00:00 76 19 90 12/22/21 00:00 152/77 H 12/21/21 23:30 141/74 H 12/21/21 23:30 78 20 90 12/21/21 23:00 87 19 91 12/21/21 23:00 145/81 H 12/21/21 22:30 147/89 H 12/21/21 22:30 77 22 94 12/21/21 23:20 81 32 H 92 40
[2021-12-22 11:17] LABS: Partial Thromboplastin Ratio 1.5; Partial Thromboplastin Time 42.6 Seconds (21.0-31.0)
[2021-12-22] MEDS: carvediloL 3.125 MG TAB PO SCH ×2 (11:41→21:33)
--- NOTE | 2021-12-22 12:48 | Hospitalist Progress Note ---
Date of Service December 22, 2021 Assessment & Plan (1) Acute on chronic heart failure with preserved ejection fraction (HFpEF): Plan: Suspect combination of uncontrolled HTN, aortic stenosis, +/- ischemia have led to her decompensation. Anemia could also worsen her ischemia which in turn worsen the CHF. Cont IV lasix - may need BID dosing to have net neg I/O balance 1-2 liters/day. Appreciate Dr Mcpherson's consultation. Agree she needs cath in light of known CAD history and elevated troponin. Agree with low-dose coreg for her CHF and her HTN. Labs in am. (2) NSTEMI (non-ST elevated myocardial infarction): Plan: Elevated troponin - uncertain if true NSTEMI or myocardial demand ischemia (type 2) in setting of #1. Either way adding beta antonieta (coreg); cont statin, asa, amlodipine. Dr Mcpherson advising heart cath later in admission once volume status has improved. (3) Acute respiratory failure with hypoxia: Plan: 2nd to #1 - improved. Can downgrade from ICU to PCU. (4) Chronic blood loss anemia: Plan: Admitted 10/2021 for such. s/p EGD / colonoscopy during that admission. Remains on pantoprazole 40mg p.o. twice daily. Monitor hemoglobin closely while on aspirin and heparin IV drip. Recheck Fe studies in am - if deficient then given IV venofer. (5) DM (diabetes mellitus): Plan: Hemoglobin A1c 6.3% which may not be accurate given her anemia and recent GI bleeding. [id number] -- novolog SSI. Adjust as needed. (6) Hypertension: Plan: Off nitro drip. Cont amlodipine 10 mg p.o. and hydralazine 100 mg TID. Adding coreg BID. (7) Hypomagnesemia: Plan: repleted resolved (8) Paroxysmal atrial fibrillation: Plan: Hold Eliquis due to possible need for cardiac catheterization. Started on heparin IV drip. Continue rhythm control strategy with amiodarone 200 mg p.o. daily. (9) Aortic stenosis: Plan: moderate-severe on echo this admission. down the line will need TAVR evaluation. likely contributing in some fashion to decompensated CHF. 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 good distal pulses on exam today. (11) CAD (coronary artery disease): Plan: See "NSTEMI" above Plan downgrade from ICU to PCU status Admission and Anticipated Discharge Date Admission Date: December 21, 2021 Subjective patient feeling better today less dyspnea less orthopnea O2 requirement still present but less than previous since lasix this am 800cc + of urine out she denies cough eating fine she admits to perhaps dietary indiscretion at home nitro drip has been weaned off tele stable overnight Review of Systems Review of Systems: gen - no fevers or chills, eating ok cv - no chest pain pulm - no dyspnea at rest, no cough GI - no abd pain, nausea, emesis Physical Exam Physical Exam: gen - NAD, very pleasant neck - JVD present mouth - MMM heart - 3/6 holosystolic murmur RUSB, apex; s1; s2 is heard; RRR lungs - b/l basilar rales, no wheeze abd - soft NT ND BS+ ext - no edema, pulses 2+ b/l psych - a/o x 3 Results & Data Results & Data ([facility]) Vital Signs (Past 12 Hours) Vital Signs Pulse Resp BP Pulse Ox O2 Del Method O2 Flow Rate FiO2 12/22/21 10:30 86 22 90 12/22/21 10:00 88 24 87 L 12/22/21 10:00 156/82 H 12/22/21 09:30 79 23 94 12/22/21 09:00 78 18 93 12/22/21 09:00 155/72 H 12/22/21 08:37 156/78 H 12/22/21 08:37 81 20 93 12/22/21 08:35 78 16 94 12/22/21 08:30 77 16 94 12/22/21 08:00 78 18 94 12/22/21 08:00 162/68 H 12/22/21 07:30 93 H 29 H 88 L 12/22/21 07:30 154/79 H 12/22/21 07:00 86 22 93 12/22/21 07:00 156/65 H 12/22/21 06:30 79 19 89 L 12/22/21 06:30 178/76 H 12/22/21 08:00 Oxymask 12/22/21 07:26 Oxymask 10 12/22/21 06:00 79 22 92 12/22/21 06:00 175/76 H 12/22/21 05:30 85 23 95 12/22/21 05:30 162/73 H 12/22/21 05:00 92 H 20 92 12/22/21 05:00 170/82 H 12/22/21 04:31 89 24 87 L 12/22/21 04:31 154/69 H 12/22/21 04:00 81 23 95 12/22/21 04:00 157/58 H 12/22/21 03:30 80 20 95 12/22/21 03:30 212/78 H 12/22/21 03:03 185/83 H 12/22/21 03:03 84 21 96 12/22/21 03:00 85 19 96 12/22/21 03:00 212/105 H 12/22/21 02:30 76 17 95 12/22/21 02:30 190/68 H 12/22/21 02:00 84 24 96 12/22/21 02:00 181/82 H 12/22/21 01:30 172/77 H 12/22/21 01:30 83 18 93 12/22/21 01:00 79 18 94 12/22/21 01:00 173/72 H 12/22/21 02:47 80 18 95 40 Laboratory Results Laboratory Results - last 24 hr 12/21/21 12/21/21 12/21/21 12:24 15:30 16:26 WBC RBC Hgb Hct MCV MCH MCHC RDW Std Deviation RDW Coeff of Alysa Plt Count MPV Immature Gran % (Auto) Neut % (Auto) Lymph % (Auto) [place] % (Auto) Eos % (Auto) Baso % (Auto) Neut # (Auto) Lymph # (Auto) [place] # (Auto) Eos # (Auto) Baso # (Auto) Immature Gran # (Auto) APTT 35.0 H PTT Ratio 1.3 Sodium Potassium Chloride Carbon Dioxide Anion Gap BUN Creatinine Est Cr Clr Drug Dosing Est GFR ( Amer) Est GFR (Non-Af Amer) BUN/Creatinine Ratio Glucose POC Glucose 188 H Estimat Average Glucose Hemoglobin A1c Calcium Magnesium Total Bilirubin AST ALT Alkaline Phosphatase Troponin I High Sens 226.1 H* D Total Protein Albumin Globulin Albumin/Globulin Ratio Triglycerides Cholesterol LDL Cholesterol, Calc VLDL Cholesterol, Calc HDL Cholesterol Cholesterol/HDL Ratio Procalcitonin Urine Color Urine Appearance Urine pH Ur Specific Conifer Urine Protein Urine Glucose (UA) Urine Ketones Urine Blood Urine Nitrite Urine Bilirubin Urine Urobilinogen Ur Leukocyte Esterase Urine WBC (Auto) Urine RBC (Auto) U Hyaline Cast (Auto) U Epithel Cells (Auto) Urine Bacteria (Auto) Nasal Screen MRSA (PCR) 12/21/21 12/21/21 12/21/21 17:16 17:50 17:50 WBC RBC Hgb Hct MCV MCH MCHC RDW Std Deviation RDW Coeff of Alysa Plt Count MPV Immature Gran % (Auto) Neut % (Auto) Lymph % (Auto) [place] % (Auto) Eos % (Auto) Baso % (Auto) Neut # (Auto) Lymph # (Auto) [place] # (Auto) Eos # (Auto) Baso # (Auto) Immature Gran # (Auto) APTT PTT Ratio Sodium Potassium Chloride Carbon Dioxide Anion Gap BUN Creatinine Est Cr Clr Drug Dosing Est GFR ( Amer) Est GFR (Non-Af Amer) BUN/Creatinine Ratio Glucose POC Glucose Estimat Average Glucose Hemoglobin A1c Calcium Magnesium Total Bilirubin AST ALT Alkaline Phosphatase Troponin I High Sens 1367.5 H* D Total Protein Albumin Globulin Albumin/Globulin Ratio Triglycerides Cholesterol LDL Cholesterol, Calc VLDL Cholesterol, Calc HDL Cholesterol Cholesterol/HDL Ratio Procalcitonin 0.07 Urine Color Yellow Urine Appearance Clear Urine pH 5.0 Ur Specific Conifer 1.006 Urine Protein Negative Urine Glucose (UA) Negative Urine Ketones Negative Urine Blood 1+ H Urine Nitrite Negative Urine Bilirubin Negative Urine Urobilinogen Negative Ur Leukocyte Esterase Trace H Urine WBC (Auto) 1-5 Urine RBC (Auto) 10-30 H U Hyaline Cast (Auto) 0 U Epithel Cells (Auto) 0-5 Urine Bacteria (Auto) Negative Nasal Screen MRSA (PCR) 12/21/21 12/21/21 12/21/21 17:50 20:01 21:24 WBC 14.31 H RBC 3.21 L Hgb 8.4 L Hct 25.7 L MCV 80.1 MCH 26.2 MCHC 32.7 RDW Std Deviation 55.7 H RDW Coeff of Alysa 19.0 H Plt Count 251 MPV 12.1 Immature Gran % (Auto) 0.3 Neut % (Auto) 88.2 Lymph % (Auto) 4.8 [place] % (Auto) 6.6 Eos % (Auto) 0.0 Baso % (Auto) 0.1 Neut # (Auto) 12.61 H Lymph # (Auto) 0.69 L [place] # (Auto) 0.95 H Eos # (Auto) 0.00 Baso # (Auto) 0.02 Immature Gran # (Auto) 0.04 H APTT 38.2 H PTT Ratio 1.4 Sodium Potassium Chloride Carbon Dioxide Anion Gap BUN Creatinine Est Cr Clr Drug Dosing Est GFR ( Amer) Est GFR (Non-Af Amer) BUN/Creatinine Ratio Glucose POC Glucose 79 Estimat Average Glucose Hemoglobin A1c Calcium Magnesium Total Bilirubin AST ALT Alkaline Phosphatase Troponin I High Sens Total Protein Albumin Globulin Albumin/Globulin Ratio Triglycerides Cholesterol LDL Cholesterol, Calc VLDL Cholesterol, Calc HDL Cholesterol Cholesterol/HDL Ratio Procalcitonin Urine Color Urine Appearance Urine pH Ur Specific [place] Urine Protein Urine Glucose (UA) Urine Ketones Urine Blood Urine Nitrite Urine Bilirubin Urine Urobilinogen Ur Leukocyte Esterase Urine WBC (Auto) Urine RBC (Auto) U Hyaline Cast (Auto) U Epithel Cells (Auto) Urine Bacteria (Auto) Nasal Screen MRSA (PCR) 12/22/21 12/22/21 12/22/21 00:19 00:19 03:47 WBC RBC Hgb 8.2 L Hct 25.3 L MCV MCH MCHC RDW Std Deviation RDW Coeff of Alysa Plt Count MPV Immature Gran % (Auto) Neut % (Auto) Lymph % (Auto) [place] % (Auto) Eos % (Auto) Baso % (Auto) Neut # (Auto) Lymph # (Auto) [place] # (Auto) Eos # (Auto) Baso # (Auto) Immature Gran # (Auto) APTT PTT Ratio Sodium Potassium Chloride Carbon Dioxide Anion Gap BUN Creatinine Est Cr Clr Drug Dosing Est GFR ( Amer) Est GFR (Non-Af Amer) BUN/Creatinine Ratio Glucose POC Glucose Estimat Average Glucose 134 Hemoglobin A1c 6.3 H Calcium Magnesium Total Bilirubin AST ALT Alkaline Phosphatase Troponin I High Sens 1517.9 H* Total Protein Albumin Globulin Albumin/Globulin Ratio Triglycerides Cholesterol LDL Cholesterol, Calc VLDL Cholesterol, Calc HDL Cholesterol Cholesterol/HDL Ratio Procalcitonin Urine Color Urine Appearance Urine pH Ur Specific [place] Urine Protein Urine Glucose (UA) Urine Ketones Urine Blood Urine Nitrite Urine Bilirubin Urine Urobilinogen Ur Leukocyte Esterase Urine WBC (Auto) Urine RBC (Auto) U Hyaline Cast (Auto) U Epithel Cells (Auto) Urine Bacteria (Auto) Nasal Screen MRSA (PCR) 12/22/21 12/22/21 12/22/21 03:47 03:47 03:47 WBC 11.36 H RBC 3.28 L Hgb 8.5 L Hct 26.1 L MCV 79.6 L MCH 25.9 MCHC 32.6 RDW Std Deviation 55.4 H RDW Coeff of Alysa 19.0 H Plt Count 261 MPV 12.8 H Immature Gran % (Auto) 0.4 Neut % (Auto) 80.7 Lymph % (Auto) 9.7 [place] % (Auto) 8.7 Eos % (Auto) 0.1 Baso % (Auto) 0.4 Neut # (Auto) 9.18 H Lymph # (Auto) 1.10 L [place] # (Auto) 0.99 H Eos # (Auto) 0.01 Baso # (Auto) 0.04 Immature Gran # (Auto) 0.04 H APTT 37.1 H PTT Ratio 1.3 Sodium 133 L Potassium 3.4 L D Chloride 98 Carbon Dioxide 26 Anion Gap 9 BUN 14 Creatinine 0.87 Est Cr Clr Drug Dosing 48.0 Est GFR ( Amer) 73.4 Est GFR (Non-Af Amer) 63.4 BUN/Creatinine Ratio 16.1 Glucose 110 H POC Glucose Estimat Average Glucose Hemoglobin A1c Calcium 8.4 L Magnesium 1.9 Total Bilirubin 0.7 AST 16 ALT 14 Alkaline Phosphatase 82 Troponin I High Sens Total Protein 6.2 Albumin 3.5 Globulin 2.7 Albumin/Globulin Ratio 1.3 Triglycerides 45 Cholesterol 71 LDL Cholesterol, Calc 22 VLDL Cholesterol, Calc 9 HDL Cholesterol 40 Cholesterol/HDL Ratio 1.8 Procalcitonin Urine Color Urine Appearance Urine pH Ur Specific [place] Urine Protein Urine Glucose (UA) Urine Ketones Urine Blood Urine Nitrite Urine Bilirubin Urine Urobilinogen Ur Leukocyte Esterase Urine WBC (Auto) Urine RBC (Auto) U Hyaline Cast (Auto) U Epithel Cells (Auto) Urine Bacteria (Auto) Nasal Screen MRSA (PCR) 12/22/21 12/22/21 12/22/21 05:49 07:39 08:33 WBC RBC Hgb Hct MCV MCH MCHC RDW Std Deviation RDW Coeff of Alysa Plt Count MPV Immature Gran % (Auto) Neut % (Auto) Lymph % (Auto) [place] % (Auto) Eos % (Auto) Baso % (Auto) Neut # (Auto) Lymph # (Auto) [place] # (Auto) Eos # (Auto) Baso # (Auto) Immature Gran # (Auto) APTT PTT Ratio Sodium Potassium Chloride Carbon Dioxide Anion Gap BUN Creatinine Est Cr Clr Drug Dosing Est GFR ( Amer) Est GFR (Non-Af Amer) BUN/Creatinine Ratio Glucose POC Glucose 157 H Estimat Average Glucose Hemoglobin A1c Calcium Magnesium Total Bilirubin AST ALT Alkaline Phosphatase Troponin I High Sens 1388.2 H* Total Protein Albumin Globulin Albumin/Globulin Ratio Triglycerides Cholesterol LDL Cholesterol, Calc VLDL Cholesterol, Calc HDL Cholesterol Cholesterol/HDL Ratio Procalcitonin Urine Color Urine Appearance Urine pH Ur Specific [place] Urine Protein Urine Glucose (UA) Urine Ketones Urine Blood Urine Nitrite Urine Bilirubin Urine Urobilinogen Ur Leukocyte Esterase Urine WBC (Auto) Urine RBC (Auto) U Hyaline Cast (Auto) U Epithel Cells (Auto) Urine Bacteria (Auto) Nasal Screen MRSA (PCR) Negative 12/22/21 12/22/21 10:38 11:21 WBC RBC Hgb Hct MCV MCH MCHC RDW Std Deviation RDW Coeff of Alysa Plt Count MPV Immature Gran % (Auto) Neut % (Auto) Lymph % (Auto) [place] % (Auto) Eos % (Auto) Baso % (Auto) Neut # (Auto) Lymph # (Auto) [place] # (Auto) Eos # (Auto) Baso # (Auto) Immature Gran # (Auto) APTT 42.6 H PTT Ratio 1.5 Sodium Potassium Chloride Carbon Dioxide Anion Gap BUN Creatinine Est Cr Clr Drug Dosing Est GFR ( Amer) Est GFR (Non-Af Amer) BUN/Creatinine Ratio Glucose POC Glucose 159 H Estimat Average Glucose Hemoglobin A1c Calcium Magnesium Total Bilirubin AST ALT Alkaline Phosphatase Troponin I High Sens Total Protein Albumin Globulin Albumin/Globulin Ratio Triglycerides Cholesterol LDL Cholesterol, Calc VLDL Cholesterol, Calc HDL Cholesterol Cholesterol/HDL Ratio Procalcitonin Urine Color Urine Appearance Urine pH Ur Specific [place] Urine Protein Urine Glucose (UA) Urine Ketones Urine Blood Urine Nitrite Urine Bilirubin Urine Urobilinogen Ur Leukocyte Esterase Urine WBC (Auto) Urine RBC (Auto) U Hyaline Cast (Auto) U Epithel Cells (Auto) Urine Bacteria (Auto) Nasal Screen MRSA (PCR) PG Care Time/CCT Total # of Minutes Spent Total Time Spent with Patient: Total time spent is greater than 50% in coordination of care (as documented) at patient's floor/unit and/or counseling patient: Coding Level of Care Code 97498 Subseq Hosp Care Lvl 2 Diagnoses Acute on chronic heart failure with preserved ejection fraction (HFpEF) I50.33 NSTEMI (non-ST elevated myocardial infarction) I21.4 Acute respiratory failure with hypoxia J96.01 Chronic blood loss anemia D50.0 DM (diabetes mellitus) E11.9 Hypertension I10 Hypertension type: unspecified Hypomagnesemia E83.42 Paroxysmal atrial fibrillation I48.0 Aortic stenosis I35.0 Occlusion of right iliac artery I74.5 CAD (coronary artery disease) I25.10 (1) Hypertension Hypertension type: unspecified Qualified Code(s): I10 - Essential (primary) hypertension
[2021-12-22] MEDS: POTASSIUM CHLORIDE CRTAB 20 MEQ TABCR PO SCH ×2 (13:35→22:33)
--- NOTE | 2021-12-22 13:46 | Pharmacy Report ---
Pharmacy Glycemic Short Note 2 - Date of Service December 22, 2021 - Glycemic Short BSG Results (Last 24 hours): 12/21/21 12/21/21 12/22/21 16:26 21:24 03:47 Glucose 110 H POC Glucose 188 H 79 12/22/21 12/22/21 07:39 11:21 Glucose POC Glucose 157 H 159 H OUTPATIENT ANTIDIABETIC REGIMEN: * amaryl 8 mg daily, metformin ER 1 gm bid ASSESSMENT: * Patient admitted with NSTEMI/CHF. Continues on heparin drip this morning. Type 2 diabetic managed on orals at home. Plan to utilize stress 2 novolog for now. A1c ~6% on admission. * Fasting BSG 157 mg/dl - will hold basal insulin for now and trend BSGs PLAN FOR INPATIENT GLYCEMIC CONTROL: * Hold outpatient oral diabetes medications * Basal insulin * not indicated currently * Bolus insulin * NovoLog per scale ACHS or Q6hrs while NPO * Goal Range: Low 120 mg/dL - High 150 mg/dL * Correction Factor: 30 mg/dL/unit * Nutritional / Prandial insulin per carb ratio of 1 unit per 15 grams CHO consumed
[2021-12-22] MEDS: HEPARIN SODIUM/DEXTROSE 25,000 UNITS/500 ML BAG IV SCH ×2 (14:04→22:42)
[2021-12-22 17:40] LABS: Partial Thromboplastin Ratio 1.6; Partial Thromboplastin Time 43.4 Seconds (21.0-31.0)
[2021-12-23 00:43] LABS: Partial Thromboplastin Ratio 1.5; Partial Thromboplastin Time 42.5 Seconds (21.0-31.0)
[2021-12-23 05:42] LABS: Hematocrit (blood only) 23.4 % (34.1-44.9); Hemoglobin 7.7 g/dl (12.0-16.0); Mean Corpuscular Hemoglobin 26.5 pg (25.0-34.0); Mean Corpuscular Hgb Conc 32.9 g/dL (32.0-36.0); Mean Corpuscular Volume 80.4 fL (80.0-100.0); Mean Platelet Volume 11.7 fL (9.4-12.3); Platelet Count 233 K/uL (130-400); RDW Coefficient of Variation 18.7 % (11.5-14.5); RDW Standard Deviation 55.4 fL (36.4-46.3); Red Blood Count 2.91 M/uL (3.93-5.22); White Blood Count 10.01 K/ul (4.8-10.8)
[2021-12-23 06:40] LABS: Anion Gap 7 (3-11); BUN Creatinine Ratio 23.9 (10-20); Blood Urea Nitrogen 22 mg/dl (6-23); Calcium 8.1 mg/dl (8.5-10.1); Carbon Dioxide 26 mmol/L (21-32); Chloride 98 mmol/L (98-107); Est GFR (African American) 68.6 ml/min; Est GFR (Non-African American) 59.2 ml/min; Ferritin 71.3 ng/ml (8-388); Glucose 125 mg/dl (70-99(Fasting)); Iron < 10 mcg/dl (35-150); Magnesium 1.7 mg/dl (1.7-2.4); Potassium 4.3 mmol/L (3.5-5.1); Sodium 131 mmol/L (136-145); Unsaturated Iron Binding Cap 237 mcg/dl (155-355)
[2021-12-23] MEDS: INSULIN ASPART PER UNIT SC SCH ×4 (07:52→21:39)
[2021-12-23] MEDS: PANTOprazole 40 MG TAB PO SCH ×2 (08:39→21:39)
[2021-12-23] MEDS: hydrALAZINE TAB 50 MG TAB PO SCH ×3 (08:39→21:39)
[2021-12-23] MEDS: POTASSIUM CHLORIDE CRTAB 20 MEQ TABCR PO SCH ×3 (08:40→21:39)
[2021-12-23] MEDS: AMIODARONE 200 MG TAB PO SCH (08:41)
[2021-12-23] MEDS: MULTIVITAMIN TAB PO SCH (08:41)
[2021-12-23] MEDS: MAGNESIUM OXIDE 400 MG TAB PO SCH ×3 (08:41→21:39)
[2021-12-23] MEDS: ATORVASTATIN 40 MG TAB PO SCH (08:41)
[2021-12-23] MEDS: carvediloL 3.125 MG TAB PO SCH (08:41)
[2021-12-23] MEDS: FUROSEMIDE 40 MG/4 ML VIAL IV SCH (08:42)
[2021-12-23] MEDS: amLODIPine BESYLATE 5 MG TAB PO SCH (08:42)
[2021-12-23] MEDS: ASPIRIN 81 MG ECTAB PO SCH (08:42)
[2021-12-23] MEDS: FERROUS SULFATE 325 MG TAB PO SCH (08:42)
[2021-12-23] MEDS ORDERED: IRON SUCROSE 200 MG in 0.9 % SODIUM CHLORIDE 100 ML IV ONE (09:00)
[2021-12-23 10:23] LABS: Partial Thromboplastin Ratio 1.6; Partial Thromboplastin Time 43.6 Seconds (21.0-31.0)
--- NOTE | 2021-12-23 11:53 | Hospitalist Progress Note ---
Date of Service December 23, 2021 Assessment & Plan (1) Acute on chronic heart failure with preserved ejection fraction (HFpEF): Plan: Volume status slowly improving. Suspect combination of uncontrolled HTN, Fe deficiency anemia, aortic stenosis, +/- ischemia have led to her decompensation. agree with increasing lasix to BID dosing today. agree with increasing coreg dose today. Appreciate Dr Mcpherson's consultation. In light of known CAD history and elevated troponin cardiac cath is being discussed for this admission. Daily weights. Labs in am. Wean NC O2 as tolerated.e (2) NSTEMI (non-ST elevated myocardial infarction): Plan: Elevated troponin - uncertain if true NSTEMI or myocardial demand ischemia (type 2) in setting of #1. Either way continue coreg, statin, asa, amlodipine. Dr Mcpherson advising heart cath later in admission once volume status has improved. (3) Acute respiratory failure with hypoxia: Plan: 2nd to #1 - cont to improve. (4) Chronic blood loss anemia: Plan: Admitted 10/2021 for such. s/p EGD / colonoscopy during that admission. Remains on pantoprazole 40mg p.o. twice daily. H/H low but no significant drop. Small bowel GI blood loss is possible (AVMS, etc). Fe studies suggestive of Fe def -- give 200mg IV venofer today. If tolerated, then repeat 2 additional doses. May need PRBCs if any continued drop in H/H. (5) DM (diabetes mellitus): Plan: Hemoglobin A1c 6.3% which may not be accurate given her anemia and recent GI bleeding. [id number] -- novolog SSI. Adjust as needed. May need basal lantus. (6) Hypertension: Plan: Off nitro drip. Cont amlodipine 10 mg p.o. and hydralazine 100 mg TID. Increase coreg BID today. (7) Hypomagnesemia: Plan: repleted resolved (8) Paroxysmal atrial fibrillation: Plan: Hold Eliquis due to possible need for cardiac catheterization. Heparin IV drip stopped today. Continue rhythm control strategy with amiodarone 200 mg p.o. daily. (9) Aortic stenosis: Plan: moderate-severe on echo this admission. down the line will need TAVR evaluation. likely contributing in some fashion to decompensated CHF. 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 good distal pulses on exam. (11) CAD (coronary artery disease): Plan: See "NSTEMI" above Plan downgrade from ICU to PCU status spoke with pt's daughter by phone and gave update Admission and Anticipated Discharge Date Admission Date: December 21, 2021 Subjective patient reports having a good night slept ok eating fair less shortness of breath no cough when she ambulated from the bed to the chair this am she had no dyspnea tele overnight wnl Review of Systems Review of Systems: gen - energy fair, appetite fair, no fevers cv - no chest pain pulm - no wheezing GI - no overt GI bleeding, no abdominal pain Physical Exam Physical Exam: gen - NAD, very pleasant neck - JVD present, 1/2 way up neck mouth - MMM heart - 3/6 holosystolic murmur RUSB, apex; s1; s2 is heard; RRR lungs - b/l basilar rales (slightly better), no wheeze, decreased BS bases, no increased work of breathing abd - soft NT ND BS+ ext - no edema, pulses 2+ b/l psych - a/o x 3 Results & Data Results & Data ([facility]) Vital Signs (Past 12 Hours) Vital Signs Temp Pulse Resp BP Pulse Ox O2 Del Method O2 Flow Rate 12/23/21 08:00 37.0 C 12/23/21 10:00 71 23 96 12/23/21 10:00 156/59 H 12/23/21 09:00 80 24 90 12/23/21 09:00 173/86 H 12/23/21 08:39 150/74 H 12/23/21 08:39 74 23 95 12/23/21 08:00 80 23 93 12/23/21 07:00 71 20 94 12/23/21 07:00 145/57 H 12/23/21 08:00 72 12/23/21 07:56 Nasal Cannula 6 12/23/21 06:00 72 23 92 12/23/21 06:00 132/40 L 12/23/21 05:43 147/50 H 12/23/21 05:43 71 21 92 12/23/21 05:30 75 22 89 L 12/23/21 05:00 66 15 91 12/23/21 04:30 70 18 92 12/23/21 04:00 68 15 93 12/23/21 03:30 66 15 94 12/23/21 03:00 68 28 H 94 12/23/21 02:30 67 16 93 12/23/21 02:00 63 16 94 12/23/21 01:00 59 L 17 99 12/23/21 00:00 74 23 87 L Laboratory Results Laboratory Results - last 24 hr 12/22/21 12/22/21 12/22/21 16:26 17:14 21:24 WBC RBC Hgb Hct MCV MCH MCHC RDW Std Deviation RDW Coeff of Alysa Plt Count MPV APTT 43.4 H PTT Ratio 1.6 Sodium Potassium Chloride Carbon Dioxide Anion Gap BUN Creatinine Est Cr Clr Drug Dosing Est GFR ( Amer) Est GFR (Non-Af Amer) BUN/Creatinine Ratio Glucose POC Glucose 177 H 201 H Calcium Magnesium Iron TIBC Unsaturated IBC Transferrin % Sat Ferritin 12/23/21 12/23/21 12/23/21 00:11 05:21 05:21 WBC 10.01 RBC 2.91 L Hgb 7.7 L Hct 23.4 L MCV 80.4 MCH 26.5 MCHC 32.9 RDW Std Deviation 55.4 H RDW Coeff of Alysa 18.7 H Plt Count 233 MPV 11.7 APTT 42.5 H PTT Ratio 1.5 Sodium 131 L Potassium 4.3 D Chloride 98 Carbon Dioxide 26 Anion Gap 7 BUN 22 Creatinine 0.92 Est Cr Clr Drug Dosing 41.0 Est GFR ( Amer) 68.6 Est GFR (Non-Af Amer) 59.2 BUN/Creatinine Ratio 23.9 H Glucose 125 H POC Glucose Calcium 8.1 L Magnesium 1.7 Iron < 10 L TIBC TNP Unsaturated IBC 237 Transferrin % Sat TNP Ferritin 71.3 12/23/21 12/23/21 12/23/21 07:22 09:51 11:19 WBC RBC Hgb Hct MCV MCH MCHC RDW Std Deviation RDW Coeff of Alysa Plt Count MPV APTT 43.6 H PTT Ratio 1.6 Sodium Potassium Chloride Carbon Dioxide Anion Gap BUN Creatinine Est Cr Clr Drug Dosing Est GFR ( Amer) Est GFR (Non-Af Amer) BUN/Creatinine Ratio Glucose POC Glucose 139 H 215 H Calcium Magnesium Iron TIBC Unsaturated IBC Transferrin % Sat Ferritin PG Care Time/CCT Total # of Minutes Spent Total Time Spent with Patient: Total time spent is greater than 50% in coordination of care (as documented) at patient's floor/unit and/or counseling patient: Coding Level of Care Code 83519 Subseq Hosp Care Lvl 2 Diagnoses Acute on chronic heart failure with preserved ejection fraction (HFpEF) I50.33 NSTEMI (non-ST elevated myocardial infarction) I21.4 Acute respiratory failure with hypoxia J96.01 Chronic blood loss anemia D50.0 DM (diabetes mellitus) E11.9 Hypertension I10 Hypertension type: unspecified Hypomagnesemia E83.42 Paroxysmal atrial fibrillation I48.0 Aortic stenosis I35.0 Occlusion of right iliac artery I74.5 CAD (coronary artery disease) I25.10 (1) Hypertension Hypertension type: unspecified Qualified Code(s): I10 - Essential (primary) hypertension
--- NOTE | 2021-12-23 12:39 | Cardiology Progress Note ---
Date of Service December 23, 2021 Assessment & Plan Admission and Anticipated Discharge Date Admission Date: December 21, 2021 Subjective She is out of bed sitting in a chair. She looks less short of breath. She is a ccompanied by her daughter this morning. She denies any chest pain or chest pressure. She denies any palpitations or fluttering. She has no lower extremity edema. She denies any increased abdominal distention. She does not really comprehend the severity of her underlying medical problems. She denies any anginal symptoms. Results & Data ([facility]) Vital Signs (Past 12 Hours) Vital Signs Temp Pulse Resp BP Pulse Ox O2 Del Method O2 Flow Rate 12/23/21 08:00 37.0 C 12/23/21 10:00 71 23 96 12/23/21 10:00 156/59 H 12/23/21 09:00 80 24 90 12/23/21 09:00 173/86 H 12/23/21 08:39 150/74 H 12/23/21 08:39 74 23 95 12/23/21 08:00 80 23 93 12/23/21 07:00 71 20 94 12/23/21 07:00 145/57 H 12/23/21 08:00 72 12/23/21 07:56 Nasal Cannula 6 12/23/21 06:00 72 23 92 12/23/21 06:00 132/40 L 12/23/21 05:43 147/50 H 12/23/21 05:43 71 21 92 12/23/21 05:30 75 22 89 L 12/23/21 05:00 66 15 91 12/23/21 04:30 70 18 92 12/23/21 04:00 68 15 93 12/23/21 03:30 66 15 94 12/23/21 03:00 68 28 H 94 12/23/21 02:30 67 16 93 12/23/21 02:00 63 16 94 12/23/21 01:00 59 L 17 99 She is awake alert oriented x3 she is in no acute distress HEENT: 2+ carotid upstrokes no evidence of carotid bruits Lungs: Decreased breath sounds in the bases bilaterally with crackles in the left base Heart: Regular rate and rhythm she has a harsh crescendo decrescendo murmur which is late peaking S2 remains preserved Abdomen soft nontender Distended positive bowel sounds Extremities no clubbing or cyanosis she has no edema Psychiatric: Her affect appeared appropriate Assessment & Plan 1. Non-ST ovation myocardial infarction 2. Moderate to severe aortic stenosis with a dimensionless index of 0.37 and an aortic valve area indexed for her BSA of 0.62 cm/m 3. Acute on chronic diastolic heart failure Past cardiac history: 1. Accelerated hypertension. 2. Non-ST elevation myocardial infarction in October 2018 with a drug-eluting stent placed to the ostial RCA. 3. Residual mid LAD disease in the range of 20-30%; mid circumflex disease in the range of 60-70%; mid to distal RCA disease in the range of 40-50%. 4. Hyperlipidemia. 5. Moderate to severe aortic stenosis. 6. Preserved biventricular size and function this admission 7. Diabetes mellitus type 2. 8. Negative CT scan for renal artery stenosis 11/2020. 9. 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 10. History of a CVA in 2018. 11. Hyponatremia worsened by hydrochlorothiazide and potentially spironolactone - 12. Normal carotid ultrasound and no evidence of subclavian stenosis, January 09, 2021. 13. Paroxysmal AFib On anticoagulation and amiodarone to maintain sinus rhythm 14. Recent GI bleed September 2021 back on anticoagulation without a drop in her hemoglobin 15. History of hyperkalemia requiring admission to the hospital within the last 6 months Unfortunately there are a number of difficult decisions in light of her complex medical problems. I am concerned her hemoglobin has declined while on heparin with a PTT that is not that high. 1 would anticipate that with decreasing her intravascular volume her hemoglobin was actually brought as as opposed to decline as it has here. We know she was recently admitted for a GI bleed and was awaiting capsule endoscopy as her upper and lower endoscopy did not explain her bleeding. This makes all choices with regards to coronary and intervention difficult. this would include if we did a catheterization and she needed angioplasty and stenting the fact that she would need antiplatelet agents for at least 3 to 6 months. For now I would hold off on her catheterization until she is more stable. We would definitely not place her on anticoagulation for her paroxysmal atrial fibrillation if she is on dual antiplatelet therapy. At this point she is remaining in sinus rhythm with amiodarone. Also if she needs a TAVR down the road and I do think she will need one in the near future she will need antiplatelet therapy after that as well. She is tolerating Coreg without any nausea that she had supposedly with metoprolol. I would increase her Coreg to 6.25 mg twice daily. I would give her an additional dose of Lasix 40 mg this evening I believe there is room to push her diuresis as she was net neutral yesterday. We will have to watch her sodium which seems to decline from her baseline hyponatremia every time we give her diuretics. There are no easy answers here. I would consider stopping her heparin. I will discuss this with the hospitalist service. The question is should the GI service see her before we consider intervention as well. I discussed with Adri and her daughter I do not think she is capable of living at home independently. She notes that after I made the comment that she is overwhelmed with her medications and feels overwhelmed at home. Given her multitude of admissions since May 2021 I think she is proving to us that she cannot live on her own. We will continue to follow her with you. We will await her morning laboratory studies. As discussed her daughter was updated at the bedside.
[2021-12-23] MEDS ORDERED: carvediloL 3.125 MG TAB PO ONE (12:40)
[2021-12-23 13:54] LABS: Hematocrit (blood only) 24.9 % (34.1-44.9)
[2021-12-23] MEDS ORDERED: FUROSEMIDE 40 MG/4 ML VIAL IV ONE (15:00)
[2021-12-23] MEDS: carvediloL 6.25 MG TAB PO SCH (21:39)
[2021-12-24 05:19] LABS: Hematocrit (blood only) 23.7 % (34.1-44.9); Hemoglobin 7.7 g/dl (12.0-16.0); Mean Corpuscular Hemoglobin 26.1 pg (25.0-34.0); Mean Corpuscular Hgb Conc 32.5 g/dL (32.0-36.0); Mean Corpuscular Volume 80.3 fL (80.0-100.0); Mean Platelet Volume 12.5 fL (9.4-12.3); Platelet Count 260 K/uL (130-400); RDW Coefficient of Variation 18.7 % (11.5-14.5); RDW Standard Deviation 54.8 fL (36.4-46.3); Red Blood Count 2.95 M/uL (3.93-5.22); White Blood Count 7.41 K/ul (4.8-10.8)
[2021-12-24 05:43] LABS: BUN Creatinine Ratio 27.3 (10-20); Calcium 8.5 mg/dl (8.5-10.1); Creatinine Clr Calc Pharmacy 31.2 ml/min; Est GFR (African American) 49.3 ml/min; Est GFR (Non-African American) 42.5 ml/min; Magnesium 1.7 mg/dl (1.7-2.4); Potassium 4.3 mmol/L (3.5-5.1)
[2021-12-24] MEDS: INSULIN ASPART PER UNIT SC SCH ×4 (07:55→22:04)
[2021-12-24] MEDS ORDERED: IRON SUCROSE 300 MG in SODIUM CHLORIDE 0.9% 250 ML IV ONE (08:00)
[2021-12-24] MEDS: PANTOprazole 40 MG TAB PO SCH ×2 (08:00→20:21)
[2021-12-24] MEDS: amLODIPine BESYLATE 5 MG TAB PO SCH (08:00)
[2021-12-24] MEDS: hydrALAZINE TAB 50 MG TAB PO SCH ×3 (08:00→20:20)
[2021-12-24] MEDS: AMIODARONE 200 MG TAB PO SCH (08:01)
[2021-12-24] MEDS: carvediloL 6.25 MG TAB PO SCH ×2 (08:01→20:21)
[2021-12-24] MEDS: MULTIVITAMIN TAB PO SCH (08:01)
[2021-12-24] MEDS: ATORVASTATIN 40 MG TAB PO SCH (08:01)
[2021-12-24] MEDS: POTASSIUM CHLORIDE CRTAB 20 MEQ TABCR PO SCH ×2 (08:01→20:20)
[2021-12-24] MEDS: MAGNESIUM OXIDE 400 MG TAB PO SCH ×2 (08:02→22:04)
[2021-12-24] MEDS: ASPIRIN 81 MG ECTAB PO SCH (08:03)
[2021-12-24] MEDS: FUROSEMIDE 40 MG/4 ML VIAL IV SCH (08:03)
[2021-12-24] MEDS: LANTUS PER UNIT CHARGE SQ SCH (08:05)
--- NOTE | 2021-12-24 08:48 | Cardiology Progress Note ---
Date of Service December 24, 2021 Assessment & Plan (1) NSTEMI (non-ST elevated myocardial infarction): Plan: 1. Non-ST ovation myocardial infarction 2. Moderate to severe aortic stenosis with a dimensionless index of 0.37 and an aortic valve area indexed for her BSA of 0.62 cm/m 3. Acute on chronic diastolic heart failure Past cardiac history: 1. Accelerated hypertension. 2. Non-ST elevation myocardial infarction in October 2018 with a drug-eluting stent placed to the ostial RCA. 3. Residual mid LAD disease in the range of 20-30%; mid circumflex disease in the range of 60-70%; mid to distal RCA disease in the range of 40-50%. 4. Hyperlipidemia. 5. Moderate to severe aortic stenosis. 6. Preserved biventricular size and function this admission 7. Diabetes mellitus type 2. 8. Negative CT scan for renal artery stenosis 11/2020. 9. 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 10. History of a CVA in 2017. 11. Hyponatremia worsened by hydrochlorothiazide and potentially spironolactone - 12. Normal carotid ultrasound and no evidence of subclavian stenosis, January 09, 2021. 13. Paroxysmal AFib On anticoagulation and amiodarone to maintain sinus rhythm 14. Recent GI bleed September 2021 back on anticoagulation without a drop in her hemoglobin 15. History of hyperkalemia requiring admission to the hospital within the last 6 months Ms. Gould'shankar hgb is stable from yesterday but down over a gram from admission and is below 8 at this point. He iron level is low and she is receiving iron this morning. Her heparin drip was discontinued to avoid further bleeding. She does have a recent history of GI bleed for which she was still undergoing workup to find a definitive source. Her may be causing bleeding from AVMs. At this point she is fairly dry so her hgb should be trending up not down. Her cardiac catheterization will be held for today. If she needed angioplasty and stenting she would require at least 3-6 months of DAPT so making sure her hgb is stable and there is no active bleeding will be vital before proceeding. She is not having any anginal symptoms today and her troponin is trending down. Depending on the stablity of her hgb tomorrow with the heparin off, we can make a decision as to when/if to proceed with cath. Anticoagulation should be held on discharge. At this point she is remaining in sinus rhythm with amiodarone. She will likely need a TAVR in the near future which would also require antiplatelet therapy. She is tolerating Coreg without any nausea that she had supposedly with metoprolol. Her Coreg was increased yesterday to 6.25 mg twice daily. She has probably diuresed enough at this point given her bump in BUN and creat. She is down 8 kg and 6L. I will hold her furosemide for tomorrow until we can see her labs. She has a history of hyponatremia but her sodium has remained stable. Hopefully Case Management can see Adri today to discuss discharge planning as there are concerns for her ability to continue to live on her own. She is overwhelmed by her complex medical regimen and has had multiple recent hospitalizations. Admission and Anticipated Discharge Date Admission Date: December 21, 2021 Subjective Ms. Gould is comfortable this morning. She is sinus rhythm on the monitor with PVCs. She denies any sob, chest pain, palpitations, or lightheadedness. She has felt ok when getting out of bed. Review of Systems Review of Systems: All systems reviewed & are unremarkable except as noted in HPI & below Physical Exam Constitutional: WD/WN, vitals as above Cardiovascular: Rate/Rhythm: regular rate and regular rhythm Heart Sounds: + murmur (rusb systolic murmur) Skin: no rashes, warm and dry Neurologic: moves all extremities and awake Psychiatric: A+Ox3, euthymic affect Results & Data ([facility]) Vital Signs (Past 12 Hours) Vital Signs Temp Pulse Resp BP Pulse Ox 12/24/21 08:00 70 18 96 12/24/21 07:30 68 21 96 12/24/21 07:30 158/85 H 12/24/21 07:00 68 21 96 12/24/21 08:43 37.1 C 12/23/21 23:00 63 23 96 12/23/21 23:00 139/56 L 12/23/21 22:00 64 22 87 L 12/23/21 22:00 123/76 12/23/21 21:00 69 19 85 L 12/23/21 21:00 149/69 H
--- NOTE | 2021-12-24 11:48 | Pharmacy Report ---
Pharmacy Glycemic Sign Off Nt - Date of Service December 24, 2021 - Assessment & Plan ASSESSMENT: * Adri had two BSG's >200 mg/dL in the last 48 hours, but both of these were post-prandial after she started eating more, and CHO ratio has already been tightened with good response. * Dr. Curry added low-dose Lantus this AM - appropriate for BSG's * I doubt she is going to require ongoing significant adjustment at this time - stressors stable * Discussed w Dr. Curry - [place] for pharmacy to sign off PLAN FOR INPATIENT GLYCEMIC CONTROL: No changes needed to current regimen. * Continue basal insulin with Lantus 6 units SQ daily * Continue NovoLog per scale [id number]/Q6hrs while NPO * Goal range = 120 150 mg/dl * CF = 30 mg/dl/unit * CR = 1 unit for ever 10 g CHO consumed * Pharmacy is signing off of glycemic consult and will no longer be making adjustments to inpatient regimen. Please feel free to re-consult if needed. Thank you.
[2021-12-24] MEDS ORDERED: SODIUM CHLORIDE 0.9% 250 ML IV PRN (16:46)
[2021-12-24] MEDS ORDERED: FUROSEMIDE INJ 20 MG/2 ML VIAL IV ONE (16:46)
--- NOTE | 2021-12-24 20:19 | Hospitalist Progress Note ---
Date of Service December 24, 2021 Assessment & Plan (1) Acute on chronic heart failure with preserved ejection fraction (HFpEF): Plan: Volume status slowly improving. Copious diuresis during this stay - but still appears hypervolemic. Suspect combination of uncontrolled HTN, Fe deficiency anemia, aortic stenosis, +/- ischemia have led to her decompensation. Lasix x 1 this am, then lasix again following her PRBCs. Creatinine trended up overnight - follow BMPs carefully. In light of known CAD history and elevated troponin cardiac cath is being discussed for this admission. Timing uncertain because of anemia & concern for ongoing, slow, occult GI bleeding (see below). Daily weights. Labs in am. Wean NC O2 as tolerated. Appreciate Dr Mcpherson's consultation. Cont coreg. Following lasix tonight hold additional diuresis until am labs tomorrow have returned due to modest rise in creatinine. (2) NSTEMI (non-ST elevated myocardial infarction): Plan: Elevated troponin - uncertain if true NSTEMI or myocardial demand ischemia (type 2) in setting of #1. Either way continue coreg, statin, asa, amlodipine. Dr Mcpherson advising heart cath later in admission once volume status has improved and anemia is stable. (3) Acute respiratory failure with hypoxia: Plan: 2nd to #1 - cont to improve. I was able to wean her to 3 L (from 6) during my visit. (4) Chronic blood loss anemia: Plan: Admitted 10/2021 for such. s/p EGD / colonoscopy during that admission. Remains on pantoprazole 40mg p.o. twice daily. H/H remain low - slightly lower than yesterday. Small bowel GI blood loss is possible (AVMS, etc). Fe studies suggestive of Fe def. Day #2 of venofer today. Give 300mg today, then 300mg tomorrow. I also believe she would benefit from PRBCs. Thus, consent obtained, and gave 1 unit PRBCs today followed by reyes. CBC in am. (5) DM (diabetes mellitus): Plan: Hemoglobin A1c 6.3% which may not be accurate given her anemia and recent GI bleeding. [id number] -- novolog SSI. Adjust as needed. Add lantus 6 units daily. (6) Hypertension: Plan: Off nitro drip. Cont amlodipine 10 mg p.o. and hydralazine 100 mg TID. Cont coreg BID. (7) Hypomagnesemia: Plan: repleted resolved cont supplementation also continue K supplementation (8) Paroxysmal atrial fibrillation: Plan: Hold Eliquis due to possible need for cardiac catheterization. Heparin IV drip x 48 hours completed. Continue rhythm control strategy with amiodarone 200 mg p.o. daily. (9) Aortic stenosis: Plan: moderate-severe on echo this admission. down the line will need TAVR evaluation. likely contributing in some fashion to decompensated CHF. 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 good distal pulses on exam. (11) CAD (coronary artery disease): Plan: See "NSTEMI" above Plan son/daughter updated at bedside today Admission and Anticipated Discharge Date Admission Date: December 21, 2021 Subjective tele - NSR, PVCS patient resting comfortably in bed during visit son, daughter present during the visit patient states she spent most of the AM in the chair denies having had VALENCIA moving from the bed to chair she asks many of the same questions she did yesterday denies dyspnea at rest or orthopnea no over GI bleeding by report Review of Systems Review of Systems: gen - no fevers, no chills; tolerated IV Fe again today cv - no chest pain pulm - no cough GI - no abd pain, nausea, emesis, melena, BRBPR Physical Exam Physical Exam: gen - NAD, very pleasant, laying comfortably in bed neck - JVD present, 1/2 way up neck mouth - MMM heart - 3/6 holosystolic murmur RUSB, apex; s1; s2 is heard; RRR lungs - b/l basilar rales- fine, no wheeze, decreased BS bases, no increased work of breathing abd - soft NT ND BS+ ext - no edema, pulses 2+ b/l skin - pallor Results & Data Results & Data ([facility]) Vital Signs (Past 12 Hours) Vital Signs Temp Pulse Pulse Pulse Resp BP BP 12/24/21 20:00 37.0 C 63 20 151/63 H 12/24/21 19:45 37.2 C 62 20 155/53 H 12/24/21 19:29 36.6 C 61 20 154/75 H 12/24/21 19:27 37.2 C 65 18 154/75 H 12/24/21 15:04 36.7 C 61 18 138/57 L 12/24/21 08:44 12/24/21 08:43 37.1 C Pulse Ox O2 Del Method O2 Flow Rate 12/24/21 20:00 93 3 12/24/21 19:45 95 3 12/24/21 19:29 95 3 12/24/21 19:27 94 Nasal Cannula 3 12/24/21 15:04 92 Nasal Cannula 3 12/24/21 08:44 Nasal Cannula 6 12/24/21 08:43 Laboratory Results Laboratory Results - last 24 hr 12/23/21 12/24/21 12/24/21 21:29 05:01 05:01 WBC 7.41 RBC 2.95 L Hgb 7.7 L Hct 23.7 L MCV 80.3 MCH 26.1 MCHC 32.5 RDW Std Deviation 54.8 H RDW Coeff of Alysa 18.7 H Plt Count 260 MPV 12.5 H Sodium 135 L Potassium 4.3 Chloride 100 Carbon Dioxide 27 Anion Gap 8 BUN 33 H Creatinine 1.21 H Est Cr Clr Drug Dosing 31.2 Est GFR ( Amer) 49.3 Est GFR (Non-Af Amer) 42.5 BUN/Creatinine Ratio 27.3 H Glucose 131 H POC Glucose 167 H Calcium 8.5 Magnesium 1.7 Blood Type Antibody Screen Crossmatch 12/24/21 12/24/21 12/24/21 05:01 07:25 11:16 WBC RBC Hgb Hct MCV MCH MCHC RDW Std Deviation RDW Coeff of Alysa Plt Count MPV Sodium Potassium Chloride Carbon Dioxide Anion Gap BUN Creatinine Est Cr Clr Drug Dosing Est GFR ( Amer) Est GFR (Non-Af Amer) BUN/Creatinine Ratio Glucose POC Glucose 177 H 207 H Calcium Magnesium Blood Type B Positive Antibody Screen NEGATIVE Crossmatch See Detail 12/24/21 12/24/21 16:13 20:03 WBC RBC Hgb Hct MCV MCH MCHC RDW Std Deviation RDW Coeff of Alysa Plt Count MPV Sodium Potassium Chloride Carbon Dioxide Anion Gap BUN Creatinine Est Cr Clr Drug Dosing Est GFR ( Amer) Est GFR (Non-Af Amer) BUN/Creatinine Ratio Glucose POC Glucose 157 H 101 H Calcium Magnesium Blood Type Antibody Screen Crossmatch PG Care Time/CCT Total # of Minutes Spent Total Time Spent with Patient: Total time spent is greater than 50% in coordination of care (as documented) at patient's floor/unit and/or counseling patient: Coding Level of Care Code 22881 Subseq Hosp Care Lvl 3 Diagnoses Acute on chronic heart failure with preserved ejection fraction (HFpEF) I50.33 NSTEMI (non-ST elevated myocardial infarction) I21.4 Acute respiratory failure with hypoxia J96.01 Chronic blood loss anemia D50.0 DM (diabetes mellitus) E11.9 Hypertension I10 Hypertension type: unspecified Hypomagnesemia E83.42 Paroxysmal atrial fibrillation I48.0 Aortic stenosis I35.0 Occlusion of right iliac artery I74.5 CAD (coronary artery disease) I25.10 (1) Hypertension Hypertension type: unspecified Qualified Code(s): I10 - Essential (primary) hypertension
[2021-12-25 07:16] LABS: Hematocrit (blood only) 30.6 % (34.1-44.9); Hemoglobin 9.9 g/dl (12.0-16.0); Mean Corpuscular Hemoglobin 26.5 pg (25.0-34.0); Mean Corpuscular Hgb Conc 32.4 g/dL (32.0-36.0); Mean Platelet Volume 11.7 fL (9.4-12.3); Platelet Count 331 K/uL (130-400); RDW Coefficient of Variation 17.9 % (11.5-14.5); Red Blood Count 3.73 M/uL (3.93-5.22); White Blood Count 6.74 K/ul (4.8-10.8)
[2021-12-25 07:40] LABS: BUN Creatinine Ratio 32.4 (10-20); Creatinine Clr Calc Pharmacy 36.8 ml/min; Est GFR (African American) 54.7 ml/min; Est GFR (Non-African American) 47.2 ml/min; Magnesium 1.7 mg/dl (1.7-2.4); Potassium 4.1 mmol/L (3.5-5.1)
[2021-12-25] MEDS ORDERED: IRON SUCROSE 300 MG in SODIUM CHLORIDE 0.9% 250 ML IV ONE (08:00)
[2021-12-25] MEDS ORDERED: MAGNESIUM SULFATE / D5W 1 GM/100 ML BAG IV ONE (08:06)
[2021-12-25] MEDS: INSULIN ASPART PER UNIT SC SCH ×4 (08:21→21:08)
[2021-12-25] MEDS: hydrALAZINE TAB 50 MG TAB PO SCH ×3 (08:22→20:55)
[2021-12-25] MEDS: MULTIVITAMIN TAB PO SCH (08:22)
[2021-12-25] MEDS: amLODIPine BESYLATE 5 MG TAB PO SCH (08:22)
[2021-12-25] MEDS: ASPIRIN 81 MG ECTAB PO SCH (08:26)
[2021-12-25] MEDS: ATORVASTATIN 40 MG TAB PO SCH (08:26)
[2021-12-25] MEDS: MAGNESIUM OXIDE 400 MG TAB PO SCH ×2 (08:26→20:54)
[2021-12-25] MEDS: PANTOprazole 40 MG TAB PO SCH ×2 (08:29→20:54)
[2021-12-25] MEDS: AMIODARONE 200 MG TAB PO SCH (08:29)
[2021-12-25] MEDS: carvediloL 6.25 MG TAB PO SCH ×2 (08:29→20:54)
[2021-12-25] MEDS: LANTUS PER UNIT CHARGE SQ SCH (08:49)
--- NOTE | 2021-12-25 09:19 | Cardiology Progress Note ---
Date of Service December 25, 2021 Assessment & Plan (1) NSTEMI (non-ST elevated myocardial infarction): Plan: 1. Non-ST ovation myocardial infarction 2. Moderate to severe aortic stenosis with a dimensionless index of 0.37 and an aortic valve area indexed for her BSA of 0.62 cm/m 3. Acute on chronic diastolic heart failure Past cardiac history: 1. Accelerated hypertension. 2. Non-ST elevation myocardial infarction in October 2018 with a drug-eluting stent placed to the ostial RCA. 3. Residual mid LAD disease in the range of 20-30%; mid circumflex disease in the range of 60-70%; mid to distal RCA disease in the range of 40-50%. 4. Hyperlipidemia. 5. Moderate to severe aortic stenosis. 6. Preserved biventricular size and function this admission 7. Diabetes mellitus type 2. 8. Negative CT scan for renal artery stenosis 11/2020. 9. 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 10. History of a CVA in 2018. 11. Hyponatremia worsened by hydrochlorothiazide and potentially spironolactone - 12. Normal carotid ultrasound and no evidence of subclavian stenosis, January 09, 2021. 13. Paroxysmal AFib On anticoagulation and amiodarone to maintain sinus rhythm 14. Recent GI bleed September 2021 back on anticoagulation without a drop in her hemoglobin 15. History of hyperkalemia requiring admission to the hospital within the last 6 months Ms. Gould's hgb is improved today reflecting her unit of PRBCs received yesterday. Her heparin drip was discontinued to avoid further bleeding. She does have a recent history of GI bleed for which she was still undergoing workup to find a definitive source. Her may be causing bleeding from AVMs. Her cardiac catheterization Has been deferred for the moment. If she needed angioplasty and stenting she would require at least 3-6 months of DAPT so making sure her hgb is stable and there is no active bleeding will be vital before proceeding. Further, her aortic stenosis is likely also playing a role in her heart failure and she may need to proceed with TAVR. This would also require antiplatelet therapy. She is not having any anginal symptoms today and her troponin is trending down. We will discuss her case with the structural and interventional team at [facility] further recommendations when he coming pending that discussion. Anticoagulation should be held on discharge. At this point she is remaining in sinus rhythm with amiodarone. She is tolerating Coreg without any nausea that she had supposedly with metoprolol. She has has had significant diuresis. She was given an extra 20 mg of IV Lasix last night and following her blood transfusion. I'll give her another dose of 40 mg of Lasix this morning and await tomorrow's labs before deciding on further diuresis. She has a history of hyponatremia but her sodium has remained stable. Admission and Anticipated Discharge Date Admission Date: December 21, 2021 Harjinder Rush is resting comfortably in bed this morning. She really has no complaints. No shortness of breath or chest pain. She is SR on the monitor. No edema Review of Systems Review of Systems: All systems reviewed & are unremarkable except as noted in HPI & below Physical Exam Constitutional: WD/WN, vitals as above Cardiovascular: Rate/Rhythm: regular rate and regular rhythm Heart Sounds: + murmur (rusb systolic murmur) Skin: no rashes, warm and dry Neurologic: moves all extremities and awake Psychiatric: A+Ox3, euthymic affect Results & Data ([facility]) Vital Signs (Past 12 Hours) Vital Signs Temp Pulse Resp BP Pulse Ox O2 Flow Rate 12/25/21 04:00 64 31 H 12/25/21 04:00 137/56 L 12/25/21 03:00 63 25 H 93 12/25/21 02:00 64 17 92 12/25/21 01:00 61 16 91 12/25/21 00:00 60 17 93 12/25/21 00:00 145/53 H 12/24/21 23:00 64 23 95 12/24/21 22:00 66 23 95 12/24/21 21:43 149/56 H 12/24/21 21:43 65 20 95 12/24/21 21:54 36.9 C 65 20 149/56 H 95 3 12/24/21 21:30 37.0 C 64 22 149/56 H 95 3
[2021-12-25] MEDS ORDERED: FUROSEMIDE 40 MG/4 ML VIAL IV ONE (11:19)
--- NOTE | 2021-12-25 11:32 | Hospitalist Progress Note ---
Date of Service December 25, 2021 Assessment & Plan (1) Acute on chronic heart failure with preserved ejection fraction (HFpEF): Plan: Volume status slowly improving. Copious diuresis during this stay-has now net -9 L for I/O and weight is down 6 kg Suspect combination of uncontrolled HTN, Fe deficiency anemia, aortic stenosis, +/- ischemia have led to her decompensation. Continues on IV Lasix, creatinine improved Give another Lasix 40 Mg x1 today In light of known CAD history and elevated troponin cardiac cath is being discussed for this admission. Plan is now for tomorrow Catheterization was delayed due to anemia and suspected occult bleeding-now status post PRBC transfusion Continue I's and O's, Daily weights, fluid restriction, low-sodium diet. Follow BMP, magnesium in the morning Continue to wean NC O2 as tolerated. Appreciate Dr Mcpherson's consultation. Needs outpatient TAVR evaluation Cont coreg. -Dose Lasix daily as able to given renal function (2) NSTEMI (non-ST elevated myocardial infarction): Plan: Elevated troponin - uncertain if true NSTEMI or myocardial demand ischemia (type 2) in setting of #1. Troponin peaked at 1517 She does not have any chest pain Has a history of stent to the RCA Either way continue coreg, statin, asa, amlodipine. Dr Mcpherson advising heart cath now that anemia stable-plan for tomorrow N.p.o. after midnight (3) Acute respiratory failure with hypoxia: Plan: Secondary to CHF- cont to improve. Is now weaned to 3 L nasal cannula May need two-step walk test prior to discharge (4) Chronic blood loss anemia: Plan: Admitted 10/2021 for such. s/p EGD / colonoscopy during that admission. Remains on pantoprazole 40mg p.o. twice daily. H/H remain low -and hemoglobin was down to 7.7 on 12/24 Small bowel GI blood loss is possible (AVMS, etc). Fe studies suggestive of Fe def. Day #3 of venofer today Also status post PRBCs 1 unit on 12/25 Hemoglobin now improved appropriately to 9.9 CBC in am. (5) DM (diabetes mellitus): Plan: Hemoglobin A1c 6.3% which may not be accurate given her anemia and recent GI bleeding. [id number] -- novolog SSI. Adjust as needed. Continue lantus 6 units daily. (6) Hypertension: Plan: Off nitro drip. Cont amlodipine 10 mg p.o. and hydralazine 100 mg TID. Cont coreg BID. (7) Hypomagnesemia: Plan: Mildly low at 1.7 Give 1 g IV magnesium replacement (8) Paroxysmal atrial fibrillation: Plan: Hold Eliquis due to need for cardiac catheterization. Heparin IV drip x 48 hours completed. Continue rhythm control strategy with amiodarone 200 mg p.o. daily. (9) Aortic stenosis: Plan: moderate-severe on echo this admission. will need TAVR evaluation-plan is for outpatient likely contributing in some fashion to decompensated CHF. 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 good distal pulses on exam. Continue aspirin, holding Eliquis (11) CAD (coronary artery disease): Plan: See "NSTEMI" above Plan daughter updated at bedside today Disposition-continued stay in PCU Admission and Anticipated Discharge Date Admission Date: December 21, 2021 Subjective Patient denies any chest pain or shortness of breath but does remain on supplemental O2 at 3 L. She is eating and drinking, no nausea, no abdominal pains. Telemetry with normal sinus rhythm I discussed her care with the cardiology nurse practitioner on several occasions today. Patient is also complaining of constipation and requesting something for this. Review of Systems Review of Systems: All systems reviewed & are unremarkable except as noted in HPI & below Physical Exam Constitutional: WD/WN, vitals as above Eyes: + anicteric sclerae Neck: trachea midline, no thyromegaly Respiratory: normal respiratory effort, lungs clear to auscultation Cardiovascular: Rate/Rhythm: regular rate and regular rhythm Heart Sounds: + murmur (3/6 IVELISSE at the RUSB) Extremities: no edema Chest (Breasts): Chest: normal inspection of chest Gastrointestinal (Abdomen): normal bowel sounds, soft, nontender, no hepatosplenomegaly Musculoskeletal: Extremities: extremities normal to inspection; no cyanosis and no clubbing Skin: no rashes, warm and dry Neurologic: moves all extremities and awake; no focal motor deficits Psychiatric: A+Ox3, euthymic affect Genitourinary: + abnormal external appearance (Castañeda catheter in place) Lymphatic: no lymphedema Results & Data Results & Data ([facility]) Vital Signs (Past 12 Hours) Vital Signs Temp Pulse Pulse Resp BP BP Pulse Ox 12/25/21 10:40 37.0 C 64 18 162/72 H 95 12/25/21 10:37 12/25/21 04:00 64 31 H 12/25/21 04:00 137/56 L 12/25/21 03:00 63 25 H 93 12/25/21 02:00 64 17 92 12/25/21 01:00 61 16 91 12/25/21 00:00 60 17 93 12/25/21 00:00 145/53 H O2 Del Method O2 Flow Rate 12/25/21 10:40 Nasal Cannula 3 12/25/21 10:37 Nasal Cannula 3 12/25/21 04:00 12/25/21 04:00 12/25/21 03:00 12/25/21 02:00 12/25/21 01:00 12/25/21 00:00 12/25/21 00:00 Laboratory Results 12/25/21 12/25/21 12/25/21 Range/Units 16:36 11:37 11:29 WBC (4.8-10.8) K/ul RBC (3.93-5.22) M/uL Hgb (12.0-16.0) g/dl Hct (34.1-44.9) % MCV (80.0-100.0) fL MCH (25.0-34.0) pg MCHC (32.0-36.0) g/dL RDW Std Deviation (36.4-46.3) fL RDW Coeff of Alysa (11.5-14.5) % Plt Count (130-400) K/uL MPV (9.4-12.3) fL Sodium (136-145) mmol/L Potassium (3.5-5.1) mmol/L Chloride (98-107) mmol/L Carbon Dioxide (21-32) mmol/L Anion Gap (3-11) BUN (6-23) mg/dl Creatinine (0.6-1.2) mg/dl Est Cr Clr Drug Dosing ml/min Est GFR ( Amer) ml/min Est GFR (Non-Af Amer) ml/min BUN/Creatinine Ratio (10-20) Glucose (70-99(Fasting)) mg/dl POC Glucose 138 H 273 H 275 H (70-99) mg/dl Calcium (8.5-10.1) mg/dl Magnesium (1.7-2.4) mg/dl Crossmatch 12/25/21 12/25/21 12/25/21 Range/Units 07:33 06:50 06:50 WBC 6.74 (4.8-10.8) K/ul RBC 3.73 L (3.93-5.22) M/uL Hgb 9.9 L (12.0-16.0) g/dl Hct 30.6 L (34.1-44.9) % MCV 82.0 (80.0-100.0) fL MCH 26.5 (25.0-34.0) pg MCHC 32.4 (32.0-36.0) g/dL RDW Std Deviation 54.0 H (36.4-46.3) fL RDW Coeff of Alysa 17.9 H (11.5-14.5) % Plt Count 331 (130-400) K/uL MPV 11.7 (9.4-12.3) fL Sodium 137 (136-145) mmol/L Potassium 4.1 (3.5-5.1) mmol/L Chloride 99 (98-107) mmol/L Carbon Dioxide 32 (21-32) mmol/L Anion Gap 6 (3-11) BUN 36 H (6-23) mg/dl Creatinine 1.11 (0.6-1.2) mg/dl Est Cr Clr Drug Dosing 36.8 ml/min Est GFR ( Amer) 54.7 ml/min Est GFR (Non-Af Amer) 47.2 ml/min BUN/Creatinine Ratio 32.4 H (10-20) Glucose 126 H (70-99(Fasting)) mg/dl POC Glucose 141 H (70-99) mg/dl Calcium 9.0 (8.5-10.1) mg/dl Magnesium 1.7 (1.7-2.4) mg/dl Crossmatch 12/24/21 12/24/21 Range/Units 20:03 05:01 WBC (4.8-10.8) K/ul RBC (3.93-5.22) M/uL Hgb (12.0-16.0) g/dl Hct (34.1-44.9) % MCV (80.0-100.0) fL MCH (25.0-34.0) pg MCHC (32.0-36.0) g/dL RDW Std Deviation (36.4-46.3) fL RDW Coeff of Alysa (11.5-14.5) % Plt Count (130-400) K/uL MPV (9.4-12.3) fL Sodium (136-145) mmol/L Potassium (3.5-5.1) mmol/L Chloride (98-107) mmol/L Carbon Dioxide (21-32) mmol/L Anion Gap (3-11) BUN (6-23) mg/dl Creatinine (0.6-1.2) mg/dl Est Cr Clr Drug Dosing ml/min Est GFR ( Amer) ml/min Est GFR (Non-Af Amer) ml/min BUN/Creatinine Ratio (10-20) Glucose (70-99(Fasting)) mg/dl POC Glucose 101 H (70-99) mg/dl Calcium (8.5-10.1) mg/dl Magnesium (1.7-2.4) mg/dl Crossmatch See Detail PG Care Time/CCT Total # of Minutes Spent Total Time Spent with Patient: Total time spent is greater than 50% in coordination of care (as documented) at patient's floor/unit and/or counseling patient: Coding Level of Care Code 14882 Subseq Hosp Care Lvl 3 Diagnoses Acute on chronic heart failure with preserved ejection fraction (HFpEF) I50.33 NSTEMI (non-ST elevated myocardial infarction) I21.4 Acute respiratory failure with hypoxia J96.01 Chronic blood loss anemia D50.0 DM (diabetes mellitus) E11.9 Hypertension I10 Hypertension type: unspecified Hypomagnesemia E83.42 Paroxysmal atrial fibrillation I48.0 Aortic stenosis I35.0 Occlusion of right iliac artery I74.5 CAD (coronary artery disease) I25.10 (1) Hypertension Hypertension type: unspecified Qualified Code(s): I10 - Essential (primary) hypertension
[2021-12-25] MEDS ORDERED: POLYETHYLENE (MIRALAX) 17 GM PACK PO PRN (15:04)
[2021-12-25] MEDS: DOCUSATE SODIUM/SENNA 50/8.6MG TAB PO SCH (15:59)
[2021-12-26 06:29] LABS: BUN Creatinine Ratio 30.6 (10-20); Calcium 8.9 mg/dl (8.5-10.1); Creatinine Clr Calc Pharmacy 32.9 ml/min; Est GFR (African American) 47.8 ml/min; Est GFR (Non-African American) 41.3 ml/min; Potassium 4.3 mmol/L (3.5-5.1)
[2021-12-26] MEDS: INSULIN ASPART PER UNIT SC SCH ×4 (08:28→21:08)
[2021-12-26] MEDS: PANTOprazole 40 MG TAB PO SCH ×2 (09:01→21:03)
[2021-12-26] MEDS: carvediloL 6.25 MG TAB PO SCH ×2 (09:01→21:02)
[2021-12-26] MEDS: DOCUSATE SODIUM/SENNA 50/8.6MG TAB PO SCH (09:02)
[2021-12-26] MEDS: MAGNESIUM OXIDE 400 MG TAB PO SCH ×2 (09:02→21:03)
[2021-12-26] MEDS: hydrALAZINE TAB 50 MG TAB PO SCH ×3 (09:02→21:04)
[2021-12-26] MEDS: amLODIPine BESYLATE 5 MG TAB PO SCH (09:03)
[2021-12-26] MEDS: ATORVASTATIN 40 MG TAB PO SCH (09:03)
[2021-12-26] MEDS: ASPIRIN 81 MG ECTAB PO SCH (09:03)
[2021-12-26] MEDS: MULTIVITAMIN TAB PO SCH (09:04)
[2021-12-26] MEDS: LANTUS PER UNIT CHARGE SQ SCH (09:26)
[2021-12-26] MEDS: AMIODARONE 200 MG TAB PO SCH (09:27)
--- NOTE | 2021-12-26 09:36 | Cardiology Progress Note ---
Date of Service December 26, 2021 Assessment & Plan Admission and Anticipated Discharge Date Admission Date: December 21, 2021 Subjective She denies any chest pain or chest pressure this morning. She denies any shortn ess of breath. She remains on oxygen with the adequate O2 saturation. Her appetite is improved. She has any lightheadedness or dizziness. She denies any fevers or chills. When I did discuss that she was here for heart failure she noted that she does not really think she had heart failure because she did not have any symptoms. Unfortunately she was very hypoxic and very short of breath in the office when she was sent to the hospital. Results & Data ([facility]) Vital Signs (Past 12 Hours) Vital Signs Temp Pulse Pulse Pulse Resp BP Pulse Ox 12/26/21 06:50 36.6 C 71 71 18 158/81 H 94 12/25/21 23:44 36.9 C 71 71 18 149/75 H 95 12/25/21 22:00 60 20 99 O2 Del Method O2 Flow Rate 12/26/21 06:50 Nasal Cannula 3 12/25/21 23:44 Nasal Cannula 3 12/25/21 22:00 She is awake alert oriented x3 she is in no acute distress HEENT: 2+ carotid upstrokes no evidence of carotid bruits Lungs: Decreased breath sounds in the bases bilaterally with crackles in the left base Heart: Regular rate and rhythm she has a harsh crescendo decrescendo murmur which is late peaking S2 remains preserved Abdomen soft nontender Distended positive bowel sounds Extremities no clubbing or cyanosis she has no edema Psychiatric: Her affect appeared appropriate Assessment & Plan 1. Non-ST ovation myocardial infarction 2. Moderate to severe aortic stenosis with a dimensionless index of 0.37 and an aortic valve area indexed for her BSA of 0.62 cm/m 3. Acute on chronic diastolic heart failure Past cardiac history: 1. Accelerated hypertension. 2. Non-ST elevation myocardial infarction in October 2018 with a drug-eluting stent placed to the ostial RCA. 3. Residual mid LAD disease in the range of 20-30%; mid circumflex disease in the range of 60-70%; mid to distal RCA disease in the range of 40-50%. 4. Hyperlipidemia. 5. Moderate to severe aortic stenosis. 6. Preserved biventricular size and function this admission 7. Diabetes mellitus type 2. 8. Negative CT scan for renal artery stenosis 11/2020. 9. 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 10. History of a CVA in 2017. 11. Hyponatremia worsened by hydrochlorothiazide and potentially spironolactone - 12. Normal carotid ultrasound and no evidence of subclavian stenosis, January 09, 2021. 13. Paroxysmal AFib On anticoagulation and amiodarone to maintain sinus rhythm 14. Recent GI bleed September 2021 back on anticoagulation without a drop in her hemoglobin 15. History of hyperkalemia requiring admission to the hospital within the last 6 months In discussion with interventional cardiology here at [facility] as well as discussion with the structural heart disease team at [facility] we will proceed with cardiac catheterization today to define her coronary anatomy. Given her recent NSTEMI the question is this just related to heart failure or progression of her known coronary artery disease. Given her bleeding which is likely related to small bowel AVMs we will try to avoid angioplasty and stenting unless she has a high-grade stenosis or a lesion that appears unstable. Also what is interesting is with aggressive diuresis and she is -12 L here her serum sodium has actually improved and her renal function remained stable. As an outpatient we were having significant difficulties controlling her volume status along with hyponatremia and hyperkalemia likely on the basis of her not taking her medications appropriately. We will have to accept some degree of prerenal azotemia in order to treat her heart failure symptoms. She will likely need between 40 and 60 mg of furosemide upon discharge. Her blood pressures remain elevated. Once her catheterization is completed, we can increase her amlodipine back to 10 mg in the morning and add 5 mg at night. I would try to avoid clonidine that she was on as an outpatient due to its tendency to cause fluid retention and bradycardia. In addition I would try to keep her regiment as simplified as possible. I do understand that she will be going home to her daughters who will help her with her medications. In discussion with the structural heart disease team we will plan for CT angiography of her entire aorta as well as her subclavian and carotid arteries. Given her femorofemoral bypass the question will be whether we can get access from below with direct iliac access or whether the procedure would need to be considered from her subclavian or carotid or even an inferior vena cava to aorta approach. We will arrange for this as an outpatient. I do feel that with her degree of aortic stenosis and recurrent heart failure symptoms that she needs to proceed with a TAVR once she is stable. Her hemoglobin is stable after receiving a unit of blood as well as iron infusions. 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 She is maintaining sinus rhythm with amiodarone. Even throughout her hospitalization she is not had any recurrent A. fib. She should remain on amiodarone and I would not discharge her on anticoagulation. From a diabetes and heart failure standpoint if she can afford an SGT L2 inhibitor it would be a good option given her diabetes and heart failure.
--- NOTE | 2021-12-26 12:14 | Hospitalist Progress Note ---
Date of Service December 26, 2021 Assessment & Plan (1) Acute on chronic heart failure with preserved ejection fraction (HFpEF): Plan: Volume status much improved. Now POx 95% on 2LNC and I weaned her to 1LNC while in room Copious diuresis during this stay-has now net -12 L for I/O and weight is down 6 kg Suspect combination of uncontrolled HTN, Fe deficiency anemia, aortic stenosis, +/- ischemia have led to her decompensation. Holding lasix for today prior to cardiac cath but will need 40-60mg po daily on discharge as per Cardiology In light of known CAD history and elevated troponin -plan for cardiac cath today Catheterization was delayed due to anemia and suspected occult bleeding-now status post PRBC transfusion Continue I's and O's, Daily weights, fluid restriction, low-sodium diet. Follow BMP, magnesium in the morning Continue to wean NC O2 as tolerated. Appreciate Dr Mcpherson's consultation. Needs outpatient TAVR evaluation -will need SGLT2 inhibitor if affordable as outpatient-can be arranged through PCP or Cardiology -continue BP control with amlodipine, Coreg, lasix. STOPPED home clonidine as per Cardiology recommendation as can cause fluid retention and bradycardia (2) NSTEMI (non-ST elevated myocardial infarction): Plan: Elevated troponin - uncertain if true NSTEMI or myocardial demand ischemia (type 2) in setting of #1. Troponin peaked at 1517 She does not have any chest pain Has a history of stent to the RCA Either way continue coreg, statin, asa, amlodipine. Dr Mcpherson advising heart cath now that anemia stable-plan for today (3) Acute respiratory failure with hypoxia: Plan: Secondary to CHF- cont to improve, weaning down off O2 to 1LNC today May need two-step walk test prior to discharge (4) Chronic blood loss anemia: Plan: Admitted 10/2021 for such. s/p EGD / colonoscopy during that admission. Remains on pantoprazole 40mg p.o. twice daily. H/H remained low -and hemoglobin was down to 7.7 on 12/24 Small bowel GI blood loss is possible (AVMS, etc). Fe studies suggestive of Fe def. Received 3 days/doses of venofer 300mg IV Also status post PRBCs 1 unit on 12/25 Hemoglobin now improved appropriately to 9.9 CBC in am. (5) DM (diabetes mellitus): Plan: Hemoglobin A1c 6.3% which may not be accurate given her anemia and recent GI bleeding. [id number] -- novolog SSI. Adjust as needed. Continue lantus 6 units daily. (6) Hypertension: Plan: Off nitro drip. Cont amlodipine 10 mg p.o. and hydralazine 100 mg TID. Cont coreg BID. as above, dc home clonidine (7) Paroxysmal atrial fibrillation: Plan: Hold Eliquis due to need for cardiac catheterization. Heparin IV drip x 48 hours completed. Continue rhythm control strategy with amiodarone 200 mg p.o. daily. Cardiology recommends NOT restarting ELiquis on discharge due to anemia issues (8) Aortic stenosis: Plan: moderate-severe on echo this admission. will need TAVR evaluation-plan is for outpatient likely contributing in some fashion to decompensated CHF. 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 good distal pulses on exam. Continue aspirin, stopped Eliquis (10) CAD (coronary artery disease): Plan: See "NSTEMI" above Plan Disposition-continued stay in PCU Admission and Anticipated Discharge Date Admission Date: December 21, 2021 Subjective Pt denies SOB, CP. No other concerns, just awaiting cardiac cath today. Tele with NSR, frequent PVCs Review of Systems Review of Systems: All systems reviewed & are unremarkable except as noted in HPI & below Physical Exam Constitutional: WD/WN, vitals as above Eyes: + anicteric sclerae Neck: trachea midline, no thyromegaly Respiratory: normal respiratory effort, lungs clear to auscultation Cardiovascular: Rate/Rhythm: regular rate and regular rhythm Heart Sounds: + murmur (3/6 IVELISSE at the RUSB) Extremities: no edema Chest (Breasts): Chest: normal inspection of chest Gastrointestinal (Abdomen): normal bowel sounds, soft, nontender, no hepatosplenomegaly Musculoskeletal: Extremities: extremities normal to inspection; no cyanosis and no clubbing Skin: no rashes, warm and dry Neurologic: moves all extremities and awake; no focal motor deficits Psychiatric: A+Ox3, euthymic affect Genitourinary: + abnormal external appearance (Castañeda catheter in place) Lymphatic: no lymphedema Results & Data Results & Data ([facility]) Vital Signs (Past 12 Hours) Vital Signs Temp Pulse Pulse Pulse Resp BP BP 12/26/21 08:00 36.5 C 65 16 154/57 H 12/26/21 11:00 61 15 12/26/21 10:00 65 20 12/26/21 09:00 61 16 12/26/21 08:18 64 19 12/26/21 08:18 154/57 H 12/26/21 08:00 62 12 12/26/21 07:00 61 13 12/26/21 06:00 64 14 12/26/21 05:04 64 14 12/26/21 04:00 61 15 12/26/21 03:00 59 L 19 12/26/21 02:00 61 16 12/26/21 01:00 58 L 15 12/26/21 08:00 58 L 12/26/21 06:50 36.6 C 71 71 18 158/81 H Pulse Ox O2 Del Method O2 Flow Rate 12/26/21 08:00 94 Room Air 12/26/21 11:00 94 12/26/21 10:00 95 12/26/21 09:00 93 12/26/21 08:18 90 12/26/21 08:18 12/26/21 08:00 95 12/26/21 07:00 99 12/26/21 06:00 12/26/21 05:04 12/26/21 04:00 12/26/21 03:00 12/26/21 02:00 12/26/21 01:00 12/26/21 08:00 12/26/21 06:50 94 Nasal Cannula 3 Laboratory Results 12/26/21 12/26/21 12/25/21 Range/Units 08:17 05:23 20:58 Sodium 136 (136-145) mmol/L Potassium 4.3 (3.5-5.1) mmol/L Chloride 98 (98-107) mmol/L Carbon Dioxide 30 (21-32) mmol/L Anion Gap 8 (3-11) BUN 38 H (6-23) mg/dl Creatinine 1.24 H (0.6-1.2) mg/dl Est Cr Clr Drug Dosing 32.9 ml/min Est GFR ( Amer) 47.8 ml/min Est GFR (Non-Af Amer) 41.3 ml/min BUN/Creatinine Ratio 30.6 H (10-20) Glucose 128 H (70-99(Fasting)) mg/dl POC Glucose 131 H 159 H (70-99) mg/dl Calcium 8.9 (8.5-10.1) mg/dl 12/25/21 Range/Units 16:36 Sodium (136-145) mmol/L Potassium (3.5-5.1) mmol/L Chloride (98-107) mmol/L Carbon Dioxide (21-32) mmol/L Anion Gap (3-11) BUN (6-23) mg/dl Creatinine (0.6-1.2) mg/dl Est Cr Clr Drug Dosing ml/min Est GFR ( Amer) ml/min Est GFR (Non-Af Amer) ml/min BUN/Creatinine Ratio (10-20) Glucose (70-99(Fasting)) mg/dl POC Glucose 138 H (70-99) mg/dl Calcium (8.5-10.1) mg/dl PG Care Time/CCT Total # of Minutes Spent Total Time Spent with Patient: Total time spent is greater than 50% in coordination of care (as documented) at patient's floor/unit and/or counseling patient: Coding Level of Care Code 07114 Subseq Hosp Care Lvl 3 Diagnoses Acute on chronic heart failure with preserved ejection fraction (HFpEF) I50.33 NSTEMI (non-ST elevated myocardial infarction) I21.4 Acute respiratory failure with hypoxia J96.01 Chronic blood loss anemia D50.0 DM (diabetes mellitus) E11.9 Hypertension I10 Hypertension type: unspecified Paroxysmal atrial fibrillation I48.0 Aortic stenosis I35.0 Occlusion of right iliac artery I74.5 CAD (coronary artery disease) I25.10 (1) Hypertension Hypertension type: unspecified Qualified Code(s): I10 - Essential (primary) hypertension
[2021-12-26] MEDS ORDERED: niCARdipine HCL INJ 2.5 MG/ML 10 ML AMP ONE (13:02)
[2021-12-26] MEDS ORDERED: HEPARIN (PORCINE) 1000 UNIT/ML 10 ML (CATH LAB USE ONLY) ONE (13:02)
[2021-12-26] MEDS ORDERED: MIDAZOLAM HCL 1 MG/ML 2ML VIAL ONE (13:03)
[2021-12-26] MEDS ORDERED: fentaNYL citrate 100 MCG/2 ML VIAL ONE (13:03)
--- NOTE | 2021-12-26 13:14 | Pre Anesthesia Assessment ---
Date of Service December 26, 2021 Pre Sedation Assessment Vital Signs Temp Pulse Pulse Pulse Resp BP BP 12/26/21 12:50 58 L 16 162/63 H 12/26/21 08:00 12/26/21 12:13 56 L 18 12/26/21 12:13 144/71 H 12/26/21 12:00 58 L 17 12/26/21 08:00 97.7 F 65 16 154/57 H 12/26/21 11:00 61 15 12/26/21 10:00 65 20 12/26/21 09:00 61 16 12/26/21 08:18 64 19 12/26/21 08:18 154/57 H 12/26/21 08:00 62 12 12/26/21 07:00 61 13 12/26/21 06:00 64 14 12/26/21 05:04 64 14 12/26/21 04:00 61 15 12/26/21 03:00 59 L 19 12/26/21 02:00 61 16 12/26/21 01:00 58 L 15 12/26/21 00:00 60 18 12/25/21 23:28 148/57 H 12/25/21 23:28 59 L 24 12/25/21 23:00 61 17 12/25/21 18:00 60 32 H 12/25/21 17:00 63 16 12/25/21 16:00 70 23 12/25/21 15:00 66 23 12/25/21 14:00 64 17 12/26/21 08:00 58 L 12/26/21 06:50 97.9 F 71 71 18 158/81 H 12/25/21 23:44 98.4 F 71 71 18 149/75 H 12/25/21 22:00 60 20 12/25/21 21:00 63 18 12/25/21 20:00 62 18 12/25/21 19:00 12/25/21 20:00 Pulse Ox O2 Del Method O2 Flow Rate 12/26/21 12:50 93 Room Air 12/26/21 08:00 Nasal Cannula 3 12/26/21 12:13 92 12/26/21 12:13 12/26/21 12:00 94 12/26/21 08:00 94 Room Air 12/26/21 11:00 94 12/26/21 10:00 95 12/26/21 09:00 93 12/26/21 08:18 90 12/26/21 08:18 12/26/21 08:00 95 12/26/21 07:00 99 12/26/21 06:00 12/26/21 05:04 12/26/21 04:00 12/26/21 03:00 12/26/21 02:00 12/26/21 01:00 12/26/21 00:00 12/25/21 23:28 12/25/21 23:28 12/25/21 23:00 93 12/25/21 18:00 93 12/25/21 17:00 12/25/21 16:00 12/25/21 15:00 89 L 12/25/21 14:00 95 12/26/21 08:00 12/26/21 06:50 94 Nasal Cannula 3 12/25/21 23:44 95 Nasal Cannula 3 12/25/21 22:00 99 12/25/21 21:00 12/25/21 20:00 92 12/25/21 19:00 94 12/25/21 20:00 Nasal Cannula 3 Cardiovascular RRR, no murmur, no edema Respiratory normal respiratory effort, lungs clear to auscultation Pre-Sedation Airway Assessment Smoking Status: Former smoker Hx Sleep Apnea: No Short, Thick Neck: No Thyromental Distance: > or= 3.5 Finger Breadths Oral Cavity: + Dentures Mallampati Class: IV ASA: ASA3 NPO Status Date of Last Intake of Fluids: 12/25/21 Time of Last Intake of Fluids: 23:00 Date of Last Intake of Solid Food: 12/25/21 Time of Last Intake of Solid Foods: 23:00 Procedure Planning Contraindications for Sedation: none Current Medications Reviewed: Yes Notes The planned sedation has been discussed with the patient. Informed Consent was obtained. I have identified the patient, determined the appropriateness of sedation and have assessed the patient immediately prior to the procedure. All medicine(s) and interventions are by my order.
--- NOTE | 2021-12-26 14:17 | Post Anesthesia Assessment ---
Date of Service December 26, 2021 Post Sedation Assessment Vital Signs Temp Pulse Pulse Pulse Resp BP BP 12/26/21 12:50 58 L 16 162/63 H 12/26/21 08:00 12/26/21 12:13 56 L 18 12/26/21 12:13 144/71 H 12/26/21 12:00 58 L 17 12/26/21 08:00 97.7 F 65 16 154/57 H 12/26/21 11:00 61 15 12/26/21 10:00 65 20 12/26/21 09:00 61 16 12/26/21 08:18 64 19 12/26/21 08:18 154/57 H 12/26/21 08:00 62 12 12/26/21 07:00 61 13 12/26/21 06:00 64 14 12/26/21 05:04 64 14 12/26/21 04:00 61 15 12/26/21 03:00 59 L 19 12/26/21 02:00 61 16 12/26/21 01:00 58 L 15 12/26/21 00:00 60 18 12/25/21 23:28 148/57 H 12/25/21 23:28 59 L 24 12/25/21 23:00 61 17 12/25/21 18:00 60 32 H 12/25/21 17:00 63 16 12/25/21 16:00 70 23 12/25/21 15:00 66 23 12/26/21 08:00 58 L 12/26/21 06:50 97.9 F 71 71 18 158/81 H 12/25/21 23:44 98.4 F 71 71 18 149/75 H 12/25/21 22:00 60 20 12/25/21 21:00 63 18 12/25/21 20:00 62 18 12/25/21 19:00 12/25/21 20:00 Pulse Ox O2 Del Method O2 Flow Rate 12/26/21 12:50 93 Room Air 12/26/21 08:00 Nasal Cannula 3 12/26/21 12:13 92 12/26/21 12:13 12/26/21 12:00 94 12/26/21 08:00 94 Room Air 12/26/21 11:00 94 12/26/21 10:00 95 12/26/21 09:00 93 12/26/21 08:18 90 12/26/21 08:18 12/26/21 08:00 95 12/26/21 07:00 99 12/26/21 06:00 12/26/21 05:04 12/26/21 04:00 12/26/21 03:00 12/26/21 02:00 12/26/21 01:00 12/26/21 00:00 12/25/21 23:28 12/25/21 23:28 12/25/21 23:00 93 12/25/21 18:00 93 12/25/21 17:00 12/25/21 16:00 12/25/21 15:00 89 L 12/26/21 08:00 12/26/21 06:50 94 Nasal Cannula 3 12/25/21 23:44 95 Nasal Cannula 3 12/25/21 22:00 99 12/25/21 21:00 12/25/21 20:00 92 12/25/21 19:00 94 12/25/21 20:00 Nasal Cannula 3 Recovery Score Activity: Moves 4 extremities Respiration: Deep Breath/Cough Circulation: +/-20% PreAnes Value Consciousness: Fully Awake Oxygen Saturation: O2 needed for >90% Discharge Sedation Level of Care: Fast Track Phase II Post Sedation Plan On clinical assessment, the patient appears to have tolerated the sedation without complications. Patient is recovering as anticipated. Patient will continue to be monitored by nursing and may be discharged when sedation discharge criteria are met per below protocol. Upon Completions of procedure up to 15 minutes continue every 5 minute vital signs and the P.A.R. score; then discharge to a Phase I or Fast Track to Phase II per the following guidelines: * Discharge Patient to appropriate Phase II area if PAR is 8 or greater or return to pre- procedure baseline. The post - procedure orders will be as directed. * If PAR score is less than 8 or not return to pre-procedure baseline then patient will follow Phase I monitoring till PAR is reached for Phase II. The Phase I may be done in procedure room or may call to secure a Phase I area. * If naloxone or flumazenil are used for reversal, hold in Phase I for continued monitoring from when last reversal dose was given for a minimum of 6 0 minutes or longer pending the nurse and/or physician discretion of patient condition before discharge to Phase II. Please call the Sedation Physician to re-evaluate and complete post-note for discharge to Phase II area. Do NOT discharge from procedure sedation or Phase 1 until post- sedation evaluation note is complete by procedure /sedation MD Sedation Discharge Instructions to be given to the patient at discharge to home.
--- NOTE | 2021-12-26 14:30 | Cardiac Catheterization ---
[facility] Data: Systems Spec Cardiac Status Clinical evaluation leading to the procedure CAD Presenation: Non STEMI Diagnostic Physicians Name: Dillon Rivera MD Closure Device Recommendations: Valve Replacement Cardiac Cath Procedure Full Procedure Date December 26, 2021 Pre-Procedure Diagnosis Pre-Procedure Diagnosis: Non STEMI and Valvular Disease AUC Score AUC Score: 7 Post-Procedure Diagnosis Post-Procedure Diagnosis: Severe CAD Procedure(s) Performed Procedure(s) Performed: Coronary Angiography, Ultrasound Guided Vascular Access and IVUS Shuffle Board Operator Dillon Rivera MD Personal Shopper(s) Deibler Estimated Blood Loss Estimated Blood Loss: 10 Medication(s) Medication(s): Fentanyl, Heparin, Lidocaine 1%, Nicardipine, Nitroglycerin and Versed Summary of Findings Indication: NSTEMI, history of coronary disease with prior LAMONTE to ostial RCA, moderate to severe , HFpEF. Access: 6 Fr right ulnar artery under ultrasound guidance Catheters: [place], JL 3.5 guide Findings: LM -medium caliber, 50% ostial stenosis with waveform dampening with catheter engagement. LAD -medium caliber, calcified, 20 to 30% proximal to mid disease, distal vessel tapers to apex. D1 without significant disease. Circumflex -medium caliber, 30 to 40% ostial. High OM1 without significant disease. RCA -medium caliber, multiple sequential lesions, 60-70% proximal in-stent restenosis, 60% mid stenosis, 50 to 60% latemid stenosis. Distal vessel without significant disease. IVUS of left main Left main cannulated with JL 3.5 guide BMW wire placed into distal circumflex Timblin IVUS catheter placed to distal left main Pullback revealed ostial stenosis with circumferential calcium, CSA 5.4 mm, 50 to 60% Catheter/wire removed. Post procedure angiography revealed no complications. Arterial Closure: TR band Summary: 1. Multivessel coronary artery disease -50% ostial left main (IVUScalcified, 50 to 60%, CSA 5.4 mm) Sequential RCA lesions (60-70% proximal ISR, 60% mid, 50% latemid) 30 to 40% ostial circumflex Recommendations: Referral to [facility] cardiac surgery for consideration of revascularization, valve replacement options. Hemodynamics Rest Ao:: 152/48/84 Final Ao: 147/39/79 LV: -- Recommendations Recommendations: Valve Replacement Specimens Specimens: None Radiation Exposure (mGy) 1042 Contrast (mls) 45 Anesthesia Moderate 0915-2799 Procedural Complication(s) None Disposition ICU I attest to the content of the Intraoperative Record and any orders documented therein. Any exceptions are noted below. [facility] Card Cath Procedure Codes Cardiac Catheterization Procedure 1: Cardiovascular Cath Procedures: 11470 Coronaries Therapeutic Services & Ancillary Proc Procedure 1: Cardiovascular Tx and Anc Procedures: 89554 Ultrasonic Guidance Vascular Access Procedure 2: Cardiovascular Tx and Anc Procedures: 92871 IV Ultrasound (Coronary or Graft) Moderate Sedation Procedure 1: Sedation/Anesthesia: 68695 Mod Sedation by the same physician;Init15 Min Child Age 5 & Up PG Care Time/CCT Total # of Minutes Spent Total Time Spent with Patient: Total time spent is greater than 50% in coordination of care (as documented) at patient's floor/unit and/or counseling patient:
[2021-12-27 06:45] LABS: Basophils # (auto) 0.05 K/uL (0-0.2); Basophils % (auto) 0.8 %; Eosinophils # (auto) 0.32 K/uL (0-0.50); Eosinophils % (auto) 5.2 %; Hematocrit (blood only) 28.1 % (34.1-44.9); Hemoglobin 8.9 g/dl (12.0-16.0); Immature Granulocytes # (auto) 0.02 K/uL (0.00-0.02); Immature Granulocytes % (auto) 0.3 %; Lymphocytes # (auto) 1.12 K/uL (1.2-3.4); Lymphocytes % (auto) 18.1 %; Mean Corpuscular Hemoglobin 26.3 pg (25.0-34.0); Mean Corpuscular Hgb Conc 31.7 g/dL (32.0-36.0); Mean Corpuscular Volume 83.1 fL (80.0-100.0); Mean Platelet Volume 11.2 fL (9.4-12.3); Monocytes # (auto) 0.68 K/uL (0.24-0.82); Neutrophils # (auto) 3.99 K/uL (1.4-6.5); Neutrophils % (auto) 64.6 %; Platelet Count 320 K/uL (130-400); RDW Coefficient of Variation 17.9 % (11.5-14.5); RDW Standard Deviation 54.4 fL (36.4-46.3); Red Blood Count 3.38 M/uL (3.93-5.22); White Blood Count 6.18 K/ul (4.8-10.8)
[2021-12-27 07:13] LABS: BUN Creatinine Ratio 27.6 (10-20); Calcium 8.5 mg/dl (8.5-10.1); Creatinine Clr Calc Pharmacy 39.6 ml/min; Est GFR (African American) 58.5 ml/min; Est GFR (Non-African American) 50.5 ml/min; Magnesium 2.2 mg/dl (1.7-2.4); Potassium 4.2 mmol/L (3.5-5.1)
[2021-12-27] MEDS: PANTOprazole 40 MG TAB PO SCH (07:54)
[2021-12-27] MEDS: hydrALAZINE TAB 50 MG TAB PO SCH ×2 (07:54→14:04)
[2021-12-27] MEDS: DOCUSATE SODIUM/SENNA 50/8.6MG TAB PO SCH (07:55)
[2021-12-27] MEDS: MULTIVITAMIN TAB PO SCH (07:55)
[2021-12-27] MEDS: MAGNESIUM OXIDE 400 MG TAB PO SCH (07:55)
[2021-12-27] MEDS: carvediloL 6.25 MG TAB PO SCH (07:56)
[2021-12-27] MEDS: ATORVASTATIN 40 MG TAB PO SCH (07:56)
[2021-12-27] MEDS: amLODIPine BESYLATE 5 MG TAB PO SCH (07:57)
[2021-12-27] MEDS: ASPIRIN 81 MG ECTAB PO SCH (07:57)
[2021-12-27] MEDS: AMIODARONE 200 MG TAB PO SCH (07:57)
[2021-12-27] MEDS: LANTUS PER UNIT CHARGE SQ SCH (08:05)
[2021-12-27] MEDS: INSULIN ASPART PER UNIT SC SCH ×3 (08:05→17:49)
[2021-12-27] MEDS ORDERED: FUROSEMIDE 40 MG TAB PO SCH (09:00)
--- NOTE | 2021-12-27 10:55 | Cardiology Progress Note ---
Date of Service December 27, 2021 Assessment & Plan (1) NSTEMI (non-ST elevated myocardial infarction): Plan: 1. Non-ST ovation myocardial infarction 2. Moderate to severe aortic stenosis with a dimensionless index of 0.37 and an aortic valve area indexed for her BSA of 0.62 cm/m 3. Acute on chronic diastolic heart failure Past cardiac history: 1. Accelerated hypertension. 2. Non-ST elevation myocardial infarction in October 2018 with a drug-eluting stent placed to the ostial RCA. 3. Residual mid LAD disease in the range of 20-30%; mid circumflex disease in the range of 60-70%; mid to distal RCA disease in the range of 40-50%. 4. Hyperlipidemia. 5. Moderate to severe aortic stenosis. 6. Preserved biventricular size and function this admission 7. Diabetes mellitus type 2. 8. Negative CT scan for renal artery stenosis 11/2020. 9. 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 10. History of a CVA in 2017. 11. Hyponatremia worsened by hydrochlorothiazide and potentially spironolactone - 12. Normal carotid ultrasound and no evidence of subclavian stenosis, January 09, 2021. 13. Paroxysmal AFib On anticoagulation and amiodarone to maintain sinus rhythm 14. Recent GI bleed September 2021 back on anticoagulation without a drop in her hemoglobin 15. History of hyperkalemia requiring admission to the hospital within the last 6 months Ms. Gould's hgb is down a gram today from her post PRBC hgb. No obvious signs of bleeding. She does have a recent history of GI bleed for which she was still undergoing workup to find a definitive source. Her may be causing bleeding from AVMs. Her cardiac catheterization showed multivessel coronary artery disease -50% ostial left main (IVUScalcified, 50 to 60%, CSA 5.4 mm) Sequential RCA lesions (60-70% proximal ISR, 60% mid, 50% latemid) 30 to 40% ostial circumflex No intervention was performed. She should continue 81 mg ASA daily if possible with her slow GI bleed. Per Dr. Mcpherson's discussion with the structural heart disease team: we will plan for CT angiography of her entire aorta as well as her subclavian and carotid arteries. Given her femorofemoral bypass the question will be whether we can get access from below with direct iliac access or whether the procedure would need to be considered from her subclavian or carotid or even an inferior vena cava to aorta approach. We will arrange for this as an outpatient. She is maintaining SR on amiodarone. Her anticoagulation should be held on discharge to avoid further bleeding. Her blood pressures remain elevated. Her clonidine from her home regimen should be discontinued to avoid fluid retention and bradycardia. Her amlodipine can be increased back to 10 mg in the morning and add 5 mg at night. She has has had significant diuresis. She should have 60 mg po daily added to her home regimen at discharge. From a diabetes and heart failure standpoint if she can afford an SGT L2 inhibitor it would be a good option given her diabetes and heart failure. She can be discharged from a cardiac perspective and close follow up and arrangements with Melissa will be made outpatient. Admission and Anticipated Discharge Date Admission Date: December 21, 2021 Harjinder Rush is up into a chair today. She's feeling good. No chest pain or shortest breath. She's maintaining SR on the monitor with PVCs. Per nursing, no signs or symptoms of bleeding or black tarry stools. Review of Systems Review of Systems: All systems reviewed & are unremarkable except as noted in HPI & below Physical Exam Constitutional: WD/WN, vitals as above Respiratory: normal respiratory effort, lungs clear to auscultation Cardiovascular: Rate/Rhythm: regular rate and regular rhythm Heart Sounds: + murmur (3/6 systolic murmur ) Extremities: no edema Skin: no rashes, warm and dry Neurologic: moves all extremities and awake Psychiatric: A+Ox3, euthymic affect Results & Data ([facility]) Vital Signs (Past 12 Hours) Vital Signs Pulse Resp BP Pulse Ox O2 Del Method O2 Flow Rate 12/27/21 08:00 56 L 12/27/21 07:01 159/50 H 12/27/21 07:01 58 L 18 90 12/27/21 07:00 58 L 17 91 12/27/21 06:00 57 L 14 12/27/21 06:00 132/44 L 12/27/21 07:47 Nasal Cannula 2 12/27/21 05:00 58 L 13 95 12/27/21 05:00 151/56 H 12/27/21 01:01 151/111 H 12/27/21 01:01 52 L 17 93 07/28/22 00:01 55 L 19 96 12/27/21 00:01 152/76 H 12/27/21 00:00 55 L 13 96 12/26/21 23:30 55 L 15 97 12/26/21 23:30 156/61 H 12/26/21 23:00 54 L 16 93 12/26/21 23:00 130/64 12/27/21 00:00 55 L
--- NOTE | 2021-12-27 13:25 | Discharge Summary ---
Date of Service December 27, 2021 Admission HPI Per Admitting Provider Adri Gould is a 81-year-old female who presents to the ER via EMS from the [facility] with acute shortness of breath and hypoxia with O2 sats down to 80s. She reports however her shortness of breath started suddenly last night at rest around 9:30pm. Associated with palpitations, orthopnea and PND. No claudication, presyncope, chest pain or pressure. She was recently taken off lisinopril and spironolactone and started on a fluid restriction one week ago due to hyperkalemia. Her pantoprazole was also increased to 40mg PO BID although hemoglobin has been stable. To help with her blood pressure with taking her off medications, her clonidine was increased to BID from . She reports increased leg swelling progressively getting worse since the medication changes. Yesterday breakfast and lunch time she felt like her normal self. No fever, chills, cough, nasal congestion, sinus pain. No urinary symptoms. Her appointment today was an ultrasound to check on her femoral bypass which she had to fast for so she also did not take her usual morning medications and last took her medications last night including Eliquis. The patient was recently admitted from October 30 to November 06, 2021 due to vomiting and diarrhea and diagnosed with LEV, hyponatremia, GI bleed and hyperkalemia. The LEV improved with intravenous fluids but was also diuresed during this admission to help with her sodium levels. She received 2 units packed red blood cells during inpatient admission. Spironolactone and lisinopril were resumed on discharge. EGD showed diffuse gastritis with patchy submucosal hemorrhage, colonoscopy showed no bleeding. She has a significant cardiac history with a non-ST elevation myocardial infarction in October 2018 with drug-eluting stent placed to the ostial RCA. She has residual mid LAD disease 20 to 30%; mid circumflex disease in the range of 60 to 70%; mid to distal RCA disease in the range of 40 to 50%. She also has moderate aortic stenosis. In the ER white blood count 19.72 which was mainly neutrophilia. High- sensitivity troponin 82.4. Chest x-ray was concerning for moderate pulmonary edema. She was given IV Lasix 40mg for CHF and started on a nitroglycerin drip due to her high blood pressure and concern for NSTEMI. Case was discussed with Dr Rios (polysomnography tech) by the ER provider and recommended TTE and trending troponin to decide on urgent catheterization but not needed currently. She was referred to medicine for admission and ongoing management of edema and NSTEMI. Principal Diagnosis Acute on chronic HFpEF, severe aortic stenosis, acute respiratory failure with hypoxia, iron deficiency anemia from chronic blood loss Discharge Exam Constitutional WD/WN, vitals as above Eyes + anicteric sclerae Neck trachea midline, no thyromegaly Respiratory normal respiratory effort, lungs clear to auscultation Cardiovascular Rate/Rhythm: regular rate and regular rhythm Heart Sounds: + murmur (3/6 IVELISSE at the RUSB) Extremities: no edema Chest (Breasts) Chest: normal inspection of chest Gastrointestinal (Abdomen) normal bowel sounds, soft, nontender, no hepatosplenomegaly Musculoskeletal Extremities: extremities normal to inspection; no cyanosis and no clubbing Skin no rashes, warm and dry Neurologic moves all extremities and awake; no focal motor deficits Psychiatric A+Ox3, euthymic affect Lymphatic no lymphedema Discharge Data Allergies Allergy/AdvReac Type Severity Reaction Status Date / Time fenofibrate AdvReac Intermediate INCREASED Verified 11/05/21 14:43 URINATION metoprolol AdvReac Intermediate VOMIT,DIARR Verified 11/05/21 14:43 HEA verapamil AdvReac Intermediate INCREASED Verified 11/05/21 14:43 URINATION valsartan AdvReac Mild Weakness Verified 11/05/21 14:43 Consultations 12/21/21 11:43 Consult Cardiology Stat ED Decision to Admit Stat 12/21/21 15:14 Consult Explosives Truck Driver Routine 12/25/21 15:21 Consult Cardiac Catheterization Routine Procedures Performed Operation Date: 12/24/21 09:30 <No data on this case meets the specified criteria> Operation Date: 12/26/21 13:00 Actual Procedures p Cineradiography w/Routine Exam - Hermann Rivera MD p Cath, Coronaries ONLY (no LV) - Hermann Rivera MD s IVUS Coronary Single Vessel - Hermann Rivera MD s Ultrasound Vascular Access - Hermann Rivera MD Ordered Studies 12/24/21 06:42 CL Cath Imgs for PACS use only Routine 12/26/21 13:10 CL Cath Imgs for PACS use only Stat 12/26/21 16:43 CL IVUS Coronary Single Vessel Routine Hospital Course (1) Acute on chronic heart failure with preserved ejection fraction (HFpEF): Volume status much improved Copious diuresis during this stay-has now net -12 L for I/O and weight is down 6 kg Weaned completely to room air even with exertion on the day of discharge Suspect combination of uncontrolled HTN, Fe deficiency anemia, aortic stenosis, +/- ischemia have led to her decompensation. In light of known CAD history and elevated troponin -recommended cardiac catheterization Catheterization was delayed initially due to anemia and suspected occult bleeding-now hemoglobin improved status post PRBC transfusion Cardiac catheterization showed: - multivessel CAD -50% ostial left main (IVUScalcified, 50 to 60%, CSA 5.4 mm) Sequential RCA lesions (60-70% proximal ISR, 60% mid, 50% latemid) 30 to 40% ostial circumflex Referral to [facility] cardiac surgery for consideration of revascularization, valve replacement options will be undertaken as an outpatient Continue I's and O's, Daily weights, fluid restriction, low-sodium diet. Appreciate Dr Mcpherson's consultation. Needs outpatient TAVR evaluation-to be arranged by [facility] cardiology -will need SGLT2 inhibitor if affordable as outpatient-can be arranged through PCP or Cardiology -continue BP control with amlodipine, Coreg, lasix. STOPPED home clonidine as per Cardiology recommendation as can cause fluid retention and bradycardia -Continue Lasix 40 Mg p.o. once daily on discharge (2) NSTEMI (non-ST elevated myocardial infarction): Elevated troponin -most likely secondary to myocardial demand ischemia (type 2) in setting of acute on chronic HFpEF Troponin peaked at 1517 She does not have any chest pain Has a history of stent to the RCA Either way continue coreg, statin, asa, amlodipine. With cardiac catheterization as above (3) Acute respiratory failure with hypoxia: Secondary to CHF-was requiring oxygen via nasal cannula Now resolved, passed a two-step walk test prior to discharge (4) Chronic blood loss anemia: Admitted 10/2021 for such. s/p EGD / colonoscopy during that admission. Remains on pantoprazole 40mg p.o. twice daily. H/H remained low -and hemoglobin was down to 7.7 on 12/24 Small bowel GI blood loss is possible (AVMS, etc). Fe studies suggestive of Fe def. Received 3 days/doses of venofer 300mg IV Also status post PRBCs 1 unit on 12/25 Hemoglobin now improved but remains low at 8-9 Discontinue Eliquis on discharge as per cardiology Continue aspirin 81 mg daily Follow CBC in 1 week with PCP Consider outpatient capsule endoscopy if not performed previously (5) DM (diabetes mellitus): Hemoglobin A1c 6.3% which may not be accurate given her anemia and recent GI bleeding. Continue home glimepiride, metformin on discharge (6) Hypertension: initially on nitro drip. Cont amlodipine 10 mg p.o. in the morning and 5 mg at bedtime, continue hydralazine 100 mg TID. Added on coreg BID and Lasix as above, dc home clonidine (7) Paroxysmal atrial fibrillation: Eliquis discontinued for worsening anemia as above Remained in sinus rhythm throughout her stay here Continue rhythm control strategy with amiodarone 200 mg p.o. daily. Cardiology recommends NOT restarting ELiquis on discharge due to anemia issues (8) Aortic stenosis: moderate-severe on echo this admission. will need TAVR evaluation-plan is for outpatient likely contributing in some fashion to decompensated CHF. 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 good distal pulses on exam. Continue aspirin, stopped Eliquis (10) CAD (coronary artery disease): See "NSTEMI" above Plan Disposition-stable for discharge to home Total Time Total Time Spent Total Time Spent (In Minutes): 45 minutes Discharge Plan Discharge Items Patient Disposition: Home - Self-Care Reason For Visit: NSTEMI, CHF Discharge Diagnosis: NSTEMI, CHF, severe aortic stenosis, Uncontrolled hypertension, Acute respiratory failure with hypoxia Condition on Discharge: Fair Activity: As commented below Lifting: Gradually increase as tolerated Bathing: No limitations Exercise/Sports: Gradually increase as tolerated Non-emergency contact: Primary Care Provider and Knitter Helper Call non-emergency contact if: you have any medication questions and your symptoms worsen Follow-up/Referrals: Prem Mcpherson DO [Physician] - (Follow up within 1-2 weeks) Peggy Leavitt DO [Primary Care Provider] - 01/02/22 1:30 pm (Follow up within 1-2 weeks. Follow up is with DR.JILL GUPTA) Diet: Low Sodium (2gm) Fluids: 1500ml (6 cups) Ambulatory Orders: Complete Blood Count with Diff (Routine) Timeframe: 1 Week Location: Determined by Patient Ordered By: Nemo Dean Attending Provider Instructions: You were admitted with an exacerbation of heart failure which placed strain on the heart. You had fluid taken off with diuretics and had improvement. You had a cardiac catheterization which showed no major blockages in the blood vessels in the heart. You will go home on lasix 40mg daily and should weigh yourself daily. Let your doctor know if you gain more than 2-3 lbs from one day to the next. Limit the amount of fluid you drink each day to 1.5L. You will be referred to [facility] as an outpatient to be evaluated for a heart valve replacement of your aortic valve. Because of your ongoing anemia and possible bleeding, you should NOT TAKE your ELIQUIS, but you can remain on aspirin. Please have your PCP check your CBC (blood count) in 1 week. A lab prescription for this will be given to you at the time of discharge. Your blood pressure medications were adjusted--> your clonidine was STOPPED. The amlodipine dose was reduced to 10mg in the morning and only 5mg at bedtime. You had a new medication added on called Coreg 6.25mg twice a day. Home Care: * Take your medications exactly as directed. Don't skip doses. * Remember that recovery after a heart attack takes time. Plan to rest for at lease 4-8 weeks while you recover. Then return to normal activity when your doctor says it's okay. * Ask your doctor about joining a heart rehabilitation program. * Tell your doctor if you are feeling depressed. Feelings of sadness are common after a heart attack, but it is important that you speak to someone if you are feeling overwhelmed by these feelings. * If you are having chest pain, call 911 for an ambulance. Do NOT drive yourself to the hospital. * Ask your family members to learn CPR. * Learn to take your own blood pressure and pulse. Keep a record of your results. Ask your doctor when you should seek emergency medical attention. He or she will tell you which blood pressure reading is dangerous. Lifestyle Changes: * Maintain a healthy weight. Get help to lose any extra pounds. * Cut back on salt. * Limit canned, dried, packaged, and fast foods. * Don't add salt to your food. * Season foods with herbs instead of salt when you cook. * Break the smoking habit. Enroll in a stop-smoking program to improve your chances of success. * Limit fatty foods. * Ask your doctor about having your lipid levels checked regularly. * Build up your activity according to your doctor's recommendation. * Ask your doctor when it's okay to resume sexual activity. * Tell your doctor about any erectile dysfunction (ED) medication you are taking. Some ED medications are not safe if you take certain heart medications. * Try to manage stress. Follow Up: It is important for you to keep your follow up appointments with your medical provider. Call your Primary Care doctor if any of the following symptoms or problems start or get worse: * Shortness of breath or difficulty breathing * Wake up at night short of breath * Chest pain * Cough * Swelling of your hands, feet, or legs * More fatigued or tired with your normal activity * Palpitations - sudden fast heart beats WEIGHT * Weigh yourself every morning after using the bathroom. * Use the same scale. * Wear the same amount of clothing. * Write your weight down on a chart. * Call your Primary Care doctor if you gain more than 2-3 pounds in 1-2 days. MEDICATIONS * Use this discharge instruction sheet for medication instructions. * Take your medications at the time your doctor ordered. * Do not skip a dose of your medicines. * If you miss a dose of medicine, take it as soon as possible, but DO NOT DOUBLE A DOSE. * Read your medicine information when you get home. * Know all of the side effects of your medicine. If in doubt, ask your pharmacist * Call your Primary Care doctor's office if you have any side effects. * Be sure all of your doctors know what medicine and herbs you take (including cold, flu, and herbal medicine). Take the following with you to your follow-up doctor appointments: * Weight Chart * Medication List * List of questions Do not drink excessive alcohol, beer or wine. ACTIVITY RECOMMENDATIONS: Excess manipulation of the wrist should be avoided for the next 24-48 hours. * No lifting over 2 pounds (approximately a 1/2 gallon of milk) with the utilized arm for 24 hours. * No strenuous activity such as bowling or tennis for 3 days. * Keep the site of the procedure covered with a bandage for 24 hours. *You may shower the day after the procedure. Do not take a tub bath or submerge the puncture site in water for the next 3 days. *Do not operate any motorized equipment for 3 days. SPECIAL CARE INSTRUCTIONS: The site may be slightly bruised and sore following your procedure. Should any of the following occur, contact the Dr. who performed your procedure. 1. Redness/inflammation, swelling, chills, or fever, or colored drainage at procedure site within 3-7 days after your procedure. 2. Coldness, discoloration, ongoing numbness, severe pain, or swelling. Expect mild tingling of hand and tenderness at the puncture site for up to three days. If this persists beyond three days, or other symptoms develop, notify the Dr. who performed your procedure. BLEEDING: If the procedure site on your wrist begins to bleed, do not panic 1. Place 1 or 2 fingers firmly just slightly above the insertion site to stop the bleeding. You may be able to feel your pulse as you hold pressure. 2. Lift your finger after 5 minutes to see if the bleeding has stopped. 3. Once the bleeding has stopped, gently wipe the wrist area clean with a bandage. * If the bleeding from your wrist does not stop after 10 minutes, or if there is a large amount of bleeding or spurting, call 911 (do not drive yourself to the hospital). SKIN IRRITATION: * You may experience some redness and/or swelling in the area where radiation was administered. If any skin irritation occurs, please contact your family physician. FOLLOW UP VISIT: Keep any scheduled doctor appointments. Pending Studies at Discharge: No Stand-Alone Forms: [facility], Smoking Cessation Medications and DC Order Prescriptions: New furosemide 40 mg Tablet 40 mg PO QAM Qty: 30 0RF carvedilol 6.25 mg Tablet 6.25 mg PO BID Qty: 60 0RF amlodipine [Norvasc] 5 mg Tablet 10 mg PO QAM Qty: 60 0RF amlodipine [Norvasc] 5 mg Tablet 5 mg PO HS Qty: 30 0RF Continued aspirin 81 mg Tablet,Delayed Release (Dr/Ec) 81 mg PO HS metformin 500 mg tablet extended release 24 hr 1,000 mg PO BIDM coenzyme Q10 [CoQ-10] 100 mg Capsule 100 mg PO QAM [place] 3-6-9 1,200 mg Capsule 1 cap PO QDD ferrous sulfate 325 mg (65 mg iron) tablet 325 mg PO BID Qty: 60 0RF amiodarone 200 mg tablet 200 mg PO QAM hydralazine 100 mg tablet 100 mg PO TID pantoprazole 40 mg tablet,delayed release (DR/EC) 40 mg PO BID glimepiride 4 mg tablet 8 mg PO DAILY multivitamin Tablet 1 tab PO QAM atorvastatin 40 mg Tablet 40 mg PO QAM Changed magnesium oxide 400 mg (241.3 mg magnesium) tablet 400 mg PO BID Qty: 60 0RF Rx Instructions: OTC Discontinued clonidine HCl 0.1 mg tablet 0.1 mg PO BID amlodipine 5 mg tablet 10 mg PO BID Eliquis 5 mg tablet 5 mg PO BID sodium chloride 1,000 mg Tablet,Soluble 1,000 mg PO DAILY Discharge Orders: Discharge Order (Routine); Ordered 12/27/21 Ordered By: Nemo Schaefer/Other Patient Handouts: Managing Type 2 Diabetes Admission Data Admit Date/Time: 12/21/21 13:40 Attending Provider: Nemo Marshall Admit Provider: Vlad Thompson Primary Care Provider: Peggy Leavitt Other Providers: Prem Mcpherson ; Vlad Thompson ; Ronnie Meyer Christophe R. Other Interventions: Discharge Summary Assessment (RN) Last Done: 12/27/21 17:46 Coding Level of Care Code D/C DAY MANAGEMENT >30 MINS Diagnoses Acute on chronic heart failure with preserved ejection fraction (HFpEF) I50.33 NSTEMI (non-ST elevated myocardial infarction) I21.4 Acute respiratory failure with hypoxia J96.01 Chronic blood loss anemia D50.0 DM (diabetes mellitus) E11.9 Hypertension I10 Hypertension type: unspecified Paroxysmal atrial fibrillation I48.0 Aortic stenosis I35.0 Occlusion of right iliac artery I74.5 CAD (coronary artery disease) I25.10
[2021-12-27] MEDS ORDERED: amLODIPine BESYLATE 5 MG TAB PO SCH (21:00)
== END 2021-12-27 18:24 | disposition home or self-care (01) | DRG 280 ==
LOC: ED 10:15 → 1E 13:40 → SUATTDRO 13:40 → 1E 15:01
PROC: CLB.CCO (2021-12-26 13:00)

== ENCOUNTER 2022-03-05 07:36 | Observation (INO) ==
--- NOTE | 2022-03-05 07:57 | Emergency Department Note ---
Impression & Plan HTN (hypertension), Elevated troponin, Lightheadedness ED Provider Note NAME: YIN BRO AGE: 81 SEX: F : 1940 ARRIVES VIA: Walk-In INFORMANT: Patient ED PROVIDER(S): Krishna Dawkins DO CHIEF COMPLAINT: HTN HPI: Patient is a 81-year-old female with a past medical history of CAD, PAD, diabetes, hypertension, hyperlipidemia, A. fib, NSTEMI, LEV with a recent TAVR performed on the who presents to the ER for elevated blood pressure. She woke up she took her meds around 7 PM. Around 715 she checked her blood pressure was elevated 220s. She denies any headache or change in vision. No chest pain or shortness of breath. No nausea, vomiting, or diarrhea. She admits to some mild stiffness on her left anterior neck which has been improving since the surgery. No weakness or numbness in the arms or legs. No other exacerbating or remitting factors. ROS: See above HPI for pertinent positives & negatives. A total of 10 systems reviewed and were otherwise negative. PAST MEDICAL HISTORY:See Below PAST SURGICAL HISTORY:See Below FAMILY HISTORY:See Below SOCIAL HISTORY:See Below HOME MEDICATIONS:See Below ALLERGIES:See Below VITALS:See Below PHYSICAL EXAMINATION: GENERAL: Sitting up in bed, alert, well appearing, well nourished, no distress, non-toxic EYE EXAM: normal conjunctiva. PERRL and EOM's grossly intact. NECK: Left anterior neck which is clean dry and intact LUNGS: Clear to auscultation. Normal chest wall mechanics HEART: no murmurs, S1 normal and S2 normal ABDOMEN: abdomen soft, non-tender, normo-active bowel sounds, no masses, no rebound or guarding. BACK: Back is symmetrical on inspection and there is no deformity, no midline tenderness, no CVA tenderness. SKIN: no rashes and no bruising UPPER EXTREMITIES: upper extremities are grossly normal. LOWER EXTREMITIES: No pitting edema. NEURO EXAM: Normal sensorium, cranial nerves II-XII intact, normal speech, no weakness of arms, no weakness of legs. No drift. Finger to nose intact. Gross sensation intact. MEDICAL DECISION MAKING: Patient is a 81-year-old female who presents the ER for the above-stated complaint. IV was established blood work was obtained. Labs show no significant leukocytosis. Mild anemia 10. BMP along with bilirubin LFTs was unremarkable. Troponin was 90. Lipase was normal. COVID was negative. Chest x-ray with mild CHF. Systolic blood pressures in the 180s to 170s. With the elevated troponin did discuss with the hospitalist for observation. There is no significant change in EKG. Do favor likely secondary to the recent TAVR. Discussed with Pt concerning signs and symptoms to watch out for. Pt was instructed to follow up with their PCP and discussed with the patient their option to return to the ED at anytime for persistent or worsening symptoms. The appropriate anticipatory guidance and out-patient management, including indications for return to the emergency department, were explained at length to the patient and understood. Triage Nursing notes reviewed. Limited review of prior medical records performed Vital Signs: reviewed and remarkable for HTN Differential diagnosis: Benign hypertension, hypertensive emergency, cardiovascular pathology, toxicologic, pheochromocytoma, electrolyte abnormality, renal disease, endorgan damage, as well as other pathologies. ER treatment provided: See below Diagnostics interpreted by me: ECG: Sinus rhythm rate 64 Normal axis No PVCs ST depressions in the inferior leads as well as lateral leads QTC 473 No significant change from previous Cardiac Monitoring: An order was placed for continuous cardiac monitoring. The monitor shows a rate of 70 with sinus rhythm. Laboratory studies: As stated above and show below. Imaging studies: Portable AP upright 1 view of the chest unremarkable Consultation(s): Discussed with Dr. Vlad Thompson for further evaluation Procedures: none Critical Care: None Past Med/Surg History Medical History Anemia Bradycardia CAD (coronary artery disease) CVA (cerebral vascular accident) (~2018) Encounter for pre-operative examination Hyperlipemia Hypertension Hypertensive urgency Myocardial infarct, old PAD (peripheral artery disease) Pneumonia S/P angiogram of extremity (02/02/21) Type 2 diabetes mellitus with diabetic neuropathy, unspecified Surgical History H/O removal of cyst History of bunionectomy of right great toe History of cardiac cath (~2018) History of heart artery stent (~2019) Status post ORIF of fracture of ankle Family History Other No family history of adverse response to anesthesia Social History Smoking Status: Former smoker Tobacco Type: Cigarettes Number of Years Since Quit: 40; Second Hand Exposure: No; Hx Alcohol Use: No Hx Substance Use: No Preferred Language: Comoran Communication Ability: Effective Supervisor Public Message Service Required: No Beliefs That Will Affect Care: None marital status: / Current Living Situation: Alone Current Living Situation Comment: [employer] [place] style home current occupational status: retired How many Children do You have: 1 Feels Safe at Home: Yes Assistive Devices: None Allergies Allergies Allergy/AdvReac Type Severity Reaction Status Date / Time fenofibrate AdvReac Intermediate INCREASED Verified 11/05/21 14:43 URINATION metoprolol AdvReac Intermediate VOMIT,DIARR Verified 11/05/21 14:43 HEA verapamil AdvReac Intermediate INCREASED Verified 11/05/21 14:43 URINATION valsartan AdvReac Mild Weakness Verified 11/05/21 14:43 Home Meds Home Medications Medication Instructions Recorded Confirmed aspirin 81 mg tablet,delayed 81 mg PO HS 03/04/20 12/21/21 release metformin 500 mg tablet,extended 1,000 mg PO BIDM 03/04/20 12/21/21 release 24 hr coenzyme Q10 100 mg capsule 100 mg PO QAM 12/01/20 12/21/21 (CoQ-10) fish, borage, flaxseed oils-omega 1 cap PO QDD 12/01/20 12/21/21 3,6,9 comb no.1 1,200 mg capsule ([place] 3-6-9) atorvastatin 40 mg tablet 40 mg PO QAM 02/26/21 12/21/21 multivitamin 1 tab PO QAM 02/26/21 12/21/21 amiodarone 200 mg tablet 200 mg PO QAM 07/01/21 12/21/21 hydralazine 100 mg tablet 100 mg PO TID 07/01/21 12/21/21 pantoprazole 40 mg tablet,delayed 40 mg PO BID 07/01/21 12/21/21 release glimepiride 4 mg tablet 8 mg PO DAILY 12/21/21 12/21/21 Previous Rx's Medication Instructions Recorded ferrous sulfate 325 mg (65 mg 325 mg PO BID #60 tabs 05/02/21 iron) tablet amlodipine 5 mg tablet (Norvasc) 5 mg PO HS #30 tabs 12/27/21 amlodipine 5 mg tablet (Norvasc) 10 mg PO QAM #60 tabs 12/27/21 carvedilol 6.25 mg tablet 6.25 mg PO BID #60 tabs 12/27/21 furosemide 40 mg tablet 40 mg PO QAM #30 tabs 12/27/21 magnesium oxide 400 mg (241.3 mg 400 mg PO BID #60 tabs 12/27/21 magnesium) tablet Results & Data (ED) Vital Signs Vital Signs - 24 hr 03/05/22 07:43 03/05/22 08:00 03/05/22 10:00 Temperature 36.5 C Temperature Source Temporal Artery Scan Pulse Rate 69 Pulse Rate [Apical] 60 Respiratory Rate 18 15 Respiratory Effort / Characteristics Non-Labored Respiratory Depth Normal Respiratory Pattern Regular Blood Pressure 189/66 H Blood Pressure [Left Arm] 170/81 H Blood Pressure Mean 107 Blood Pressure Mean [Left Arm] 110 Pulse Oximetry 98 97 Oxygen Delivery Method Room Air Room Air Room Air Sepsis Recent Fever Within 48 Hours No Sepsis New/Unexplained Change in Mental Status No Sepsis Action Taken by Nursing No Action Required Laboratory Data Result diagrams: 03/05/22 08:20 03/05/22 08:20 Lab Results 03/05/22 03/05/22 03/05/22 Range/Units 08:20 08:20 10:33 WBC 6.37 (4.8-10.8) K/ul RBC 3.66 L (3.93-5.22) M/uL Hgb 10.4 L (12.0-16.0) g/dl Hct 31.3 L (34.1-44.9) % MCV 85.5 (80.0-100.0) fL MCH 28.4 (25.0-34.0) pg MCHC 33.2 (32.0-36.0) g/dL RDW Std Deviation 46.8 H (36.4-46.3) fL RDW Coeff of Alysa 14.8 H (11.5-14.5) % Plt Count 217 (130-400) K/uL MPV 12.3 (9.4-12.3) fL Immature Gran % (Auto) 0.5 % Neut % (Auto) 75.2 % Lymph % (Auto) 12.1 % Lucas % (Auto) 7.7 % Eos % (Auto) 3.9 % Baso % (Auto) 0.6 % Neut # (Auto) 4.79 (1.4-6.5) K/uL Lymph # (Auto) 0.77 L (1.2-3.4) K/uL Lucas # (Auto) 0.49 (0.24-0.82) K/uL Eos # (Auto) 0.25 (0-0.50) K/uL Baso # (Auto) 0.04 (0-0.2) K/uL Immature Gran # (Auto) 0.03 H (0.00-0.02) K/uL Sodium 138 (136-145) mmol/L Potassium 3.9 (3.5-5.1) mmol/L Chloride 102 (98-107) mmol/L Carbon Dioxide 27 (21-32) mmol/L Anion Gap 9 (3-11) BUN 23 (6-23) mg/dl Creatinine 0.96 (0.6-1.2) mg/dl Est Cr Clr Drug Dosing 44.0 ml/min Est GFR ( Amer) 65.2 ml/min Est GFR (Non-Af Amer) 56.2 ml/min BUN/Creatinine Ratio 24.0 H (10-20) Glucose 167 H (70-99(Fasting)) mg/dl Calcium 9.4 (8.5-10.1) mg/dl Total Bilirubin 0.8 (0.2-1.0) mg/dl AST 12 L (13-39) U/L ALT 13 (7-52) U/L Alkaline Phosphatase 97 (34-104) U/L Troponin I High Sens 92.8 H* D (0-14) pg/ml Total Protein 6.3 (6.0-8.3) gm/dl Albumin 3.9 (3.4-5.0) gm/dl Globulin 2.4 L (2.5-4.0) gm/dl Albumin/Globulin Ratio 1.6 (0.9-2) Lipase 18 (11-82) U/L SARS-CoV-2, RNA, NAAT NEGATIVE (NEGATIVE) 03/05/22 Range/Units 11:10 WBC (4.8-10.8) K/ul RBC (3.93-5.22) M/uL Hgb (12.0-16.0) g/dl Hct (34.1-44.9) % MCV (80.0-100.0) fL MCH (25.0-34.0) pg MCHC (32.0-36.0) g/dL RDW Std Deviation (36.4-46.3) fL RDW Coeff of Alysa (11.5-14.5) % Plt Count (130-400) K/uL MPV (9.4-12.3) fL Immature Gran % (Auto) % Neut % (Auto) % Lymph % (Auto) % Lucas % (Auto) % Eos % (Auto) % Baso % (Auto) % Neut # (Auto) (1.4-6.5) K/uL Lymph # (Auto) (1.2-3.4) K/uL Lucas # (Auto) (0.24-0.82) K/uL Eos # (Auto) (0-0.50) K/uL Baso # (Auto) (0-0.2) K/uL Immature Gran # (Auto) (0.00-0.02) K/uL Sodium (136-145) mmol/L Potassium (3.5-5.1) mmol/L Chloride (98-107) mmol/L Carbon Dioxide (21-32) mmol/L Anion Gap (3-11) BUN (6-23) mg/dl Creatinine (0.6-1.2) mg/dl Est Cr Clr Drug Dosing ml/min Est GFR ( Amer) ml/min Est GFR (Non-Af Amer) ml/min BUN/Creatinine Ratio (10-20) Glucose (70-99(Fasting)) mg/dl Calcium (8.5-10.1) mg/dl Total Bilirubin (0.2-1.0) mg/dl AST (13-39) U/L ALT (7-52) U/L Alkaline Phosphatase (34-104) U/L Troponin I High Sens 81.7 H* D (0-14) pg/ml Total Protein (6.0-8.3) gm/dl Albumin (3.4-5.0) gm/dl Globulin (2.5-4.0) gm/dl Albumin/Globulin Ratio (0.9-2) Lipase (11-82) U/L SARS-CoV-2, RNA, NAAT (NEGATIVE) Imaging Data Radiologist's Impression: Chest X-Ray 03/05/22 07:54 XR chest 1V portable HISTORY: Atypical Chest Pain COMPARISON: Chest 12/21/2021. FINDINGS: No pneumothorax. No pleural effusions. The heart remains mildly enlarged. There is mild central pulmonary vascular congestion without overt edema. This is improved in the interval. No new focal lung consolidations to s uggest a pneumonia. A cardiac valve prosthesis is noted. Calcifications within the aortic knob. Moderate degenerative changes within the shoulders. IMPRESSION: Mild cardiomegaly with mild congestive change. This has improved in the interval. ACT 112: Negative or not required by law. Electronically signed by: Alistair Chavez M.D. 03/05/2022 9:01 AM Discharge Plan Visit Data Chief Complaint: Hypertension Stated Complaint: HYPERTENSION ED Provider: Krishna Dawkins Discharge Problem: HTN (hypertension), Elevated troponin, Lightheadedness
[2022-03-05 08:35] LABS: Basophils # (auto) 0.04 K/uL (0-0.2); Basophils % (auto) 0.6 %; Eosinophils # (auto) 0.25 K/uL (0-0.50); Eosinophils % (auto) 3.9 %; Hematocrit (blood only) 31.3 % (34.1-44.9); Hemoglobin 10.4 g/dl (12.0-16.0); Immature Granulocytes # (auto) 0.03 K/uL (0.00-0.02); Immature Granulocytes % (auto) 0.5 %; Lymphocytes # (auto) 0.77 K/uL (1.2-3.4); Lymphocytes % (auto) 12.1 %; Mean Corpuscular Hemoglobin 28.4 pg (25.0-34.0); Mean Corpuscular Hgb Conc 33.2 g/dL (32.0-36.0); Mean Corpuscular Volume 85.5 fL (80.0-100.0); Mean Platelet Volume 12.3 fL (9.4-12.3); Monocytes # (auto) 0.49 K/uL (0.24-0.82); Monocytes % (auto) 7.7 %; Neutrophils # (auto) 4.79 K/uL (1.4-6.5); Neutrophils % (auto) 75.2 %; Platelet Count 217 K/uL (130-400); RDW Coefficient of Variation 14.8 % (11.5-14.5); RDW Standard Deviation 46.8 fL (36.4-46.3); Red Blood Count 3.66 M/uL (3.93-5.22); White Blood Count 6.37 K/ul (4.8-10.8)
--- NOTE | 2022-03-05 09:03 | XRay Report ---
XR chest 1V portable HISTORY: Atypical Chest Pain COMPARISON: Chest 12/21/2021. FINDINGS: No pneumothorax. No pleural effusions. The heart remains mildly enlarged. There is mild matteo tral pulmonary vascular congestion without overt edema. This is improved in the interval. No new foca l lung consolidations to suggest a pneumonia. A cardiac valve prosthesis is noted. Calcifications wit hin the aortic knob. Moderate degenerative changes within the shoulders. IMPRESSION: Mild cardiomegaly with mild congestive change. This has improved in the interval. ACT 112: Negative or not required by law. Electronically signed by: Alistair Chavez M.D. 03/05/2022 9:01 AM
[2022-03-05 09:35] LABS: Troponin I High Sensitivity 92.8 pg/ml (0-14)
[2022-03-05 09:50] LABS: Albumin Globulin Ratio 1.6 (0.9-2); Albumin Level 3.9 gm/dl (3.4-5.0); Calcium 9.4 mg/dl (8.5-10.1); Est GFR (African American) 65.2 ml/min; Est GFR (Non-African American) 56.2 ml/min; Globulin 2.4 gm/dl (2.5-4.0); Potassium 3.9 mmol/L (3.5-5.1); Total Protein 6.3 gm/dl (6.0-8.3)
[2022-03-05 10:23] LABS: Bilirubin,Total 0.8 mg/dl (0.2-1.0)
--- NOTE | 2022-03-05 10:35 | History & Physical Report ---
Date of Service March 05, 2022 Assessment & Plan (1) Hypertension: Plan: -Admit to med tele -At this time the patient is currently afebrile, stable on RA, and her blood pressure is currently 170/81 -It appears the cause of her hypertension may have been that her am hypertensives had not taken effect prior to her checking her BP. Since arriving to the ED her blood pressure has improved but she is still hypertensive at 170/81. The patient is on a heavy antihypertensive regimen including amlodipine, coreg, TID hydralazine, and 40 mg PO lasix daily. Will continue her home antihypertensive regimen and continue to monitor her blood pressure. -Monitor on tele -Am CBC, BMP, and Mag (2) Elevated troponin: Plan: -First troponin in the ED was elevated at 92.8, patient denies chest pain and SOB -Ordered repeat which is currently pending -First ECG on arrival to ED showing NSR with t-wave inversion in the inferior and lateral leads -Will monitor repeat tropnin and repeat ECG now that her BP is better controlled, if any concerning findings will reach out to cardiology -Will add on BNP as patient has history of heart failure and was noted to have JVD and lower extremity pitting edema on exam -Will continue to monitor on tele for now and will trend troponin q6h x 3 for now (3) Paroxysmal atrial fibrillation: Plan: -Currently rate controlled -Was taken off Eliquis and started on Plavix + Aspirin S/P TAVR, continue both for now -Continue coreg and amiodarone (4) CAD (coronary artery disease): Plan: -Continue aspirin and plavix (5) S/P TAVR (transcatheter aortic valve replacement): Plan: -S/P procedure on 02/28 at [facility], no complications -Procedure site is intact and without signs of infection, continue to monitor for now (6) (HFpEF) heart failure with preserved ejection fraction: Plan: -Continue home lasix, had 40 mg PO this am -LVEF of 60-65% as of last admission in October -Mildly volume up on exam, if BNP is significantly elevated may give another dose of lasix (7) Gastritis determined by endoscopy: Plan: -Continue pantoprazole (8) DM (diabetes mellitus): Plan: -Normally on Metformin and Glimepiride at home, took both this am -Will hold oral meds for now -Start with 5 units of lantus BID and a correction factor of 65, adjust regimen as needed (9) PAD (peripheral artery disease): Plan: -See CAD (10) Hyperlipemia: Plan: -Continue Statin Plan The patient was discussed with Dr. Thompson at the time of admission History of Present Illness Chief Complaint: Hypertension Primary Care Provider: Tiara Ochoa PA-C Adir is a 81 year old female with a PMH significant for afib, mod-severe aortic stenosis S/P TAVR procedure at [facility] on 02/28/22, previous heart cath on 11/26/21 showing 50% Ostial stenosis of the LMC, 20-30% stenosis of the proximal-mid LAD, 30-40% ostail stenosis of the circumflex, 60-70% re- stenosis of the proximal RCA with 60% mid stenosis and 50-60% late-mid stenosis, HFpEF, HTN, hyperlipidemia, DM II, Gastritis, who presented to the [facility] ED on 03/05/22 with a chief complaint of hypertension (systolic BP in the 220's). Per chart review, the patient was admitted to [facility] in October of this year for heart failure exacerbation. During her admission she was noted to have acute blood loss anemia thought to be caused by an occult GI bleed, she was given 1 unit of PRBCs and her Hgb remained stable. She underwent heart cath due to elevated troponins and findings listed above. [facility] cardiology recommended referral to [facility] interventional Cardiology for possible TAVR. She was heavily diuresed during her admission and was weaned to room air prior to discha rge. She was recommended to start an SGLT2 inhibitor outpatient if feasible. She was continued on Amlodipine, Coreg and lasix for HTN and Clonidine was stopped as it likely contributed to her fluid retention. In the ED the patient was found to be afebrile, Hypertensive at 189/66, and stable on room air. Labs were remarkable for a stable Hgb and high sensitivity troponin of 92.8. Chest xray revealed Mild cardiomegaly with mild congestive change. At the time of the exam the patient was sitting comfortably in bed in no acute distress with her daughter sitting bedside. They state that her TAVR procedure went well and she has had no complications since besides some mild discomfort on the left side of her neck at the procedure site. She has been in her normal state of health and woke up this morning without issue. She took all of her am meds as prescribed including her amlodipine, coreg, lasix, and hydralazine. Shortly after taking her AM meds she checked her blood pressure and noted her systolic pressure to be 214. She has been asymptomatic in regards to headache, changes in vision, hearing, chest pain, SOB, and abdominal pain. She noted some dizziness when she arrived to the hospital but she did not eat breakfast this am and took her metformin and Glimepiride. Since having a snack her dizziness has significantly improved and she was able to walk to the bathroom without issue. She states that her typical systolic blood pressure runs around 140 with her current antihypertensive regimen. I explained that her antihypertensives may have not had enough time to take effect this am as her BP has improved compared to this am but we will continue to monitor. She and her daughter would like her to be monitored overnight and are in agreement with the plan. I spoke to the patient and her daughter regarding code status, the patient would like to be a Full Code and her daughter would make decisions for her if she was incapable of doing so. They explained that she is following up with Dr. Elmore of [facility] Cardiology for her post TAVR follow-up in April instead of going back down to [place]. Allergies Allergy/AdvReac Type Severity Reaction Status Date / Time fenofibrate AdvReac Intermediate INCREASED Verified 11/05/21 14:43 URINATION metoprolol AdvReac Intermediate VOMIT,DIARR Verified 11/05/21 14:43 HEA verapamil AdvReac Intermediate INCREASED Verified 11/05/21 14:43 URINATION valsartan AdvReac Mild Weakness Verified 11/05/21 14:43 Home Medications Medication Instructions Recorded Confirmed Type aspirin 81 mg tablet,delayed 81 mg PO HS 03/04/20 12/21/21 History release metformin 500 mg tablet,extended 1,000 mg PO BIDM 03/04/20 12/21/21 History release 24 hr coenzyme Q10 100 mg capsule 100 mg PO QAM 12/01/20 12/21/21 History (CoQ-10) fish, borage, flaxseed oils-omega 1 cap PO QDD 12/01/20 12/21/21 History 3,6,9 comb no.1 1,200 mg capsule ([place] 3-6-9) atorvastatin 40 mg tablet 40 mg PO QAM 02/26/21 12/21/21 History multivitamin 1 tab PO QAM 02/26/21 12/21/21 History ferrous sulfate 325 mg (65 mg 325 mg PO BID #60 tabs 05/02/21 12/21/21 Rx iron) tablet amiodarone 200 mg tablet 200 mg PO QAM 07/01/21 12/21/21 History hydralazine 100 mg tablet 100 mg PO TID 07/01/21 12/21/21 History pantoprazole 40 mg tablet,delayed 40 mg PO BID 07/01/21 12/21/21 History release glimepiride 4 mg tablet 8 mg PO DAILY 12/21/21 12/21/21 History amlodipine 5 mg tablet (Norvasc) 5 mg PO HS #30 tabs 12/27/21 Rx amlodipine 5 mg tablet (Norvasc) 10 mg PO QAM #60 tabs 12/27/21 Rx carvedilol 6.25 mg tablet 6.25 mg PO BID #60 tabs 12/27/21 Rx furosemide 40 mg tablet 40 mg PO QAM #30 tabs 12/27/21 Rx magnesium oxide 400 mg (241.3 mg 400 mg PO BID #60 tabs 12/27/21 12/21/21 Rx magnesium) tablet Past Med/Surg History Medical History Anemia Bradycardia CAD (coronary artery disease) CVA (cerebral vascular accident) (~2018) Encounter for pre-operative examination Hyperlipemia Hypertension Hypertensive urgency Myocardial infarct, old PAD (peripheral artery disease) Pneumonia S/P angiogram of extremity (02/02/21) Type 2 diabetes mellitus with diabetic neuropathy, unspecified Surgical History H/O removal of cyst History of bunionectomy of right great toe History of cardiac cath (~2018) History of heart artery stent (~2018) Status post ORIF of fracture of ankle Family History Other No family history of adverse response to anesthesia Social History Smoking Status: Former smoker Tobacco Type: Cigarettes Number of Years Since Quit: 40; Second Hand Exposure: No; Do You Dip or Chew Tobacco: No; Tobacco Cessation Education Requested by Patient: No Hx Alcohol Use: No Hx Substance Use: No Preferred Language: Vietnamese Communication Ability: Effective 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 All systems have been reviewed and are otherwise negative. Physical Exam Physical Exam: Physical Exam: General: In no acute distress, stated age, chronically ill-appearing HEENT: Normocephalic, atraumatic, no scleral icterus, pupils around round, symmetrical, and reactive to light, moist mucus membranes, patient with well- healing scar with mild erythema around the base along the left neck from TAVR wihtout signs of drainage or dehiscence, JVD noted, trachea midline, no thyromegaly Chest/Pulm: No respiratory distress, symmetrical chest expansion, clear breath sounds throughout Cardiac: RRR, systolic murmur noted Abdomen: Negative for ascites and bruising, normoactive bowel sounds, soft, non-tender to palpation throughout Musculoskeletal: Symmetrical and without signs of acute trauma, upper and lower extremities with full ROM, no atrophy, spasticity, or flaccidity Extremities: Radial, dorsalis pedis, and posterior tibial pulses are intact and symmetrical, +1-2 pitting edema in the BL lower extremities Skin: Warm, dry, no rashes , lesions, or scars noted Neuro: Alert and oriented to person, place, month, year, no focal defects, CN II-XII tested and intact, finger to nose test negative, no tremors noted Psych: No acute distress, calm and cooperative during the exam Results & Data Results & Data ([facility]) Vital Signs (Past 12 Hours) Vital Signs Temp Pulse Resp BP Pulse Ox O2 Del Method 03/05/22 08:00 Room Air 03/05/22 07:43 36.5 C 69 18 189/66 H 98 Room Air Laboratory Results Abnormal lab results 03/05/22 03/05/22 Range/Units 08:20 08:20 RBC 3.66 L (3.93-5.22) M/uL Hgb 10.4 L (12.0-16.0) g/dl Hct 31.3 L (34.1-44.9) % RDW Std Deviation 46.8 H (36.4-46.3) fL RDW Coeff of Alysa 14.8 H (11.5-14.5) % Lymph # (Auto) 0.77 L (1.2-3.4) K/uL Immature Gran # (Auto) 0.03 H (0.00-0.02) K/uL BUN/Creatinine Ratio 24.0 H (10-20) Glucose 167 H (70-99(Fasting)) mg/dl AST 12 L (13-39) U/L Troponin I High Sens 92.8 H* D (0-14) pg/ml Globulin 2.4 L (2.5-4.0) gm/dl Diagnostic Findings Chest X-Ray 03/05/22 07:54 XR chest 1V portable HISTORY: Atypical Chest Pain COMPARISON: Chest 12/21/2021. FINDINGS: No pneumothorax. No pleural effusions. The heart remains mildly enlarged. There is mild central pulmonary vascular congestion without overt edema. This is improved in the interval. No new focal lung consolidations to suggest a pneumonia. A cardiac valve prosthesis is noted. Calcifications within the aortic knob. Moderate degenerative changes within the shoulders. IMPRESSION: Mild cardiomegaly with mild congestive change. This has improved in the interval. ACT 112: Negative or not required by law. Electronically signed by: Alistair Chavez M.D. 03/05/2022 9:01 AM ECG Additional Comments: Poor data quality, interpretation may be adversely affected Sinus rhythm ST & T wave abnormality, consider inferior ischemia Abnormal ECG When compared with ECG of 30-OCT-2021 19:22, QRS duration has decreased T wave inversion now evident in Inferior leads T wave inversion now evident in Lateral leads Confirmed by Dillon Otero ([id number]) on 03/05/2022 8:54:05 AM Code Status & VTE Plan Code Status FUll Code Supervising Physician Co-Signing Physician Notes I personally saw and examined the patient. I verified all yi points and agree with Erich Crabtree PA-C with the following exceptions and/or additions: 81 year old female admission for high blood pressure and troponin rise. No recent changes to her medications and PG Care Time/CCT Total # of Minutes Spent Total Time Spent with Patient: Total time spent is greater than 50% in coordination of care (as documented) at patient's floor/unit and/or counseling patient: Coding [place] [address] Initial Inpt Care Lvl 1 Patient Type Established Medical Decision Making Moderate Complexity Diagnoses Hypertension I10 Hypertension type: unspecified Elevated troponin R77.8 Paroxysmal atrial fibrillation I48.0 CAD (coronary artery disease) I25.10 S/P TAVR (transcatheter aortic valve replacement) Z95.2 (HFpEF) heart failure with preserved ejection fraction I50.30 Gastritis determined by endoscopy K29.70 DM (diabetes mellitus) E11.9 PAD (peripheral artery disease) I73.9 Hyperlipemia E78.5 (1) Hypertension Hypertension type: unspecified Qualified Code(s): I10 - Essential (primary) hypertension
[2022-03-05] MEDS ORDERED: GLUCOSE 40% GEL 15 GM TUBE PO PRN (13:05)
[2022-03-05] MEDS ORDERED: GLUCAGON FOR INJ 1 MG VIAL SQ PRN (13:05)
[2022-03-05] MEDS ORDERED: GLUCOSE 10 TAB/TUBE PO PRN (13:05)
[2022-03-05] MEDS ORDERED: CARBOHYDRATES FOR HYPOGLYCEMIA PO PRN (13:05)
[2022-03-05] MEDS ORDERED: ACETAMINOPHEN 325 MG TAB PO PRN (13:05)
[2022-03-05] MEDS ORDERED: DEXTROSE 50% 50 ML SYRINGE IV PRN (13:05)
[2022-03-05] MEDS: INSULIN ASPART PER UNIT SC SCH ×2 (13:38→17:15)
[2022-03-05] MEDS: hydrALAZINE TAB 50 MG TAB PO SCH ×2 (15:45→20:27)
--- NOTE | 2022-03-05 16:15 | Electrocardiogram Report ---
Test Reason : Blood Pressure : / mmHG Vent. Rate : 059 BPM Atrial Rate : 059 BPM P-R Int : 202 ms QRS Dur : 102 ms QT Int : 476 ms P-R-T Axes : 088 032 199 degrees QTc Int : 471 ms Sinus bradycardia Abnormal ECG When compared with ECG of 05-MAR-2022 08:19, Nonspecific T wave abnormality has replaced inverted T waves in Inferior leads Confirmed by Dillon Otero ([id number]) on 03/05/2022 4:15:07 PM Referred By: REFERRED SELF Confirmed By:Renato Otero
[2022-03-05] MEDS: carvediloL 6.25 MG TAB PO SCH (20:26)
[2022-03-05] MEDS: FERROUS SULFATE 325 MG TAB PO SCH (20:26)
[2022-03-05] MEDS: MAGNESIUM OXIDE 400 MG TAB PO SCH (20:27)
[2022-03-05] MEDS: PANTOprazole 40 MG TAB PO SCH (20:27)
[2022-03-05] MEDS ORDERED: amLODIPine BESYLATE 5 MG TAB PO SCH (21:00)
[2022-03-05] MEDS ORDERED: ASPIRIN 81 MG ECTAB PO SCH (21:00)
[2022-03-05] MEDS ORDERED: LANTUS PER UNIT CHARGE SQ SCH (21:00)
[2022-03-06 07:02] LABS: Hematocrit (blood only) 29.4 % (34.1-44.9); Hemoglobin 9.9 g/dl (12.0-16.0); Mean Corpuscular Hemoglobin 28.1 pg (25.0-34.0); Mean Corpuscular Hgb Conc 33.7 g/dL (32.0-36.0); Mean Corpuscular Volume 83.5 fL (80.0-100.0); Mean Platelet Volume 12.4 fL (9.4-12.3); Platelet Count 213 K/uL (130-400); RDW Coefficient of Variation 14.7 % (11.5-14.5); RDW Standard Deviation 45.1 fL (36.4-46.3); Red Blood Count 3.52 M/uL (3.93-5.22); White Blood Count 5.06 K/ul (4.8-10.8)
[2022-03-06 07:32] LABS: BUN Creatinine Ratio 24.8 (10-20); Calcium 9.2 mg/dl (8.5-10.1); Creatinine Clr Calc Pharmacy 35.7 ml/min; Est GFR (African American) 51.3 ml/min; Est GFR (Non-African American) 44.3 ml/min; Magnesium 1.7 mg/dl (1.7-2.4); Potassium 3.3 mmol/L (3.5-5.1)
[2022-03-06 07:55] LABS: Estimated Average Glucose 126 mg/dl
[2022-03-06] MEDS ORDERED: FUROSEMIDE 20 MG TAB PO SCH (09:00)
[2022-03-06] MEDS ORDERED: FUROSEMIDE 40 MG TAB PO SCH ×2 (09:00)
[2022-03-06] MEDS ORDERED: MULTIVITAMIN TAB PO SCH (09:00)
[2022-03-06] MEDS ORDERED: amLODIPine BESYLATE 5 MG TAB PO SCH (09:00)
[2022-03-06] MEDS ORDERED: AMIODARONE 200 MG TAB PO SCH (09:00)
[2022-03-06] MEDS ORDERED: ATORVASTATIN 40 MG TAB PO SCH (09:00)
[2022-03-06] MEDS ORDERED: POLYETHYLENE (MIRALAX) 17 GM PACK PO SCH (09:00)
--- NOTE | 2022-03-06 09:03 | Discharge Summary ---
Discharge Summary Date of Service March 06, 2022 Admission HPI Per Admitting Provider dAri is a 81 year old female with a PMH significant for afib, mod-severe aortic stenosis S/P TAVR procedure at [facility] on 02/28/22, previous heart cath on 11/26/21 showing 50% Ostial stenosis of the LMC, 20-30% stenosis of the proximal-mid LAD, 30-40% ostail stenosis of the circumflex, 60-70% re- stenosis of the proximal RCA with 60% mid stenosis and 50-60% late-mid stenosis, HFpEF, HTN, hyperlipidemia, DM II, Gastritis, who presented to the [facility] ED on 03/05/22 with a chief complaint of hypertension (systolic BP in the 220's). Per chart review, the patient was admitted to [facility] in October of this year for heart failure exacerbation. During her admission she was noted to have acute blood loss anemia thought to be caused by an occult GI bleed, she was given 1 unit of PRBCs and her Hgb remained stable. She underwent heart cath due to elevated troponins and findings listed above. [facility] cardiology recommended referral to [facility] interventional Cardiology for possible TAVR. She was heavily diuresed during her admission and was weaned to room air prior to discharge. She was recommended to start an SGLT2 inhibitor outpatient if feasible. She was continued on Amlodipine, Coreg and lasix for HTN and Clonidine was stopped as it likely contributed to her fluid retention. In the ED the patient was found to be afebrile, Hypertensive at 189/66, and stable on room air. Labs were remarkable for a stable Hgb and high sensitivity troponin of 92.8. Chest xray revealed Mild cardiomegaly with mild congestive change. At the time of the exam the patient was sitting comfortably in bed in no acute distress with her daughter sitting bedside. They state that her TAVR procedure went well and she has had no complications since besides some mild d iscomfort on the left side of her neck at the procedure site. She has been in her normal state of health and woke up this morning without issue. She took all of her am meds as prescribed including her amlodipine, coreg, lasix, and hydralazine. Shortly after taking her AM meds she checked her blood pressure and noted her systolic pressure to be 214. She has been asymptomatic in regards to headache, changes in vision, hearing, chest pain, SOB, and abdominal pain. She noted some dizziness when she arrived to the hospital but she did not eat breakfast this am and took her metformin and Glimepiride. Since having a snack her dizziness has significantly improved and she was able to walk to the bathroom without issue. She states that her typical systolic blood pressure runs around 140 with her current antihypertensive regimen. I explained that her antihypertensives may have not had enough time to take effect this am as her BP has improved compared to this am but we will continue to monitor. She and her daughter would like her to be monitored overnight and are in agreement with the plan. I spoke to the patient and her daughter regarding code status, the patient would like to be a Full Code and her daughter would make decisions for her if she was incapable of doing so. They explained that she is following up with Dr. Mcpherson of [facility] Cardiology for her post TAVR follow-up in April instead of going back down to [place]. Admission Exam Per Admitting Provider General:In no acute distress, stated age, chronically ill-appearing HEENT:Normocephalic, atraumatic, no scleral icterus, pupils around round, symmetrical, and reactive to light, moist mucus membranes,patient with well- healing scar with mild erythema around the base along the left neck from TAVR without signs of drainage or dehiscence, JVD noted,trachea midline, no thyromegaly Chest/Pulm:No respiratory distress, symmetrical chest expansion, clear breath sounds throughout Cardiac:RRR, systolic murmur noted Abdomen:Negative for ascites and bruising, normoactive bowel sounds, soft, non-tender to palpation throughout Musculoskeletal:Symmetrical and without signs of acute trauma, upper and lower extremities with full ROM, no atrophy, spasticity, or flaccidity Extremities:Radial, dorsalis pedis, and posterior tibial pulses are intact and symmetrical, +1-2 pitting edema in the BL lower extremities Skin:Warm, dry, no rashes , lesions, or scars noted Neuro:Alert and oriented to person, place, month, year, no focal defects, CN II-XII tested and intact, finger to nose test negative, no tremors noted Psych:No acute distress, calm and cooperative during the exam Principal Dx & Hospital Course #1 = Principal Diagnosis (1) Hypertensive emergency: -Presented due to BP 200s at home, and noted to have signs of end organ damage (elevated troponin) on admission. -BP 170 systolic this AM. -Per patient and daughter medications have been taken as prescribed since discharge home s/p TAVR. -Case discussed with Cyn Cartagena; patient has follow up with Dr. Mcpherson on 03/20. Will start spironolactone at low dose 12.5mg daily with BMP in 1 week. -Otherwise continue amlodipine 10mg AM/5mg PM, hydralazine 100mg TID, carvedilol 6.25 mg BID. (2) Demand ischemia: -First troponin in the ED was elevated at 92.8, patient denies chest pain and SOB. -Repeat troponin x2 downtrending. -First ECG on arrival to ED showing NSR with t-wave inversion in the inferior and lateral leads, nonspecific T wave abnormality on EKG this AM. -Demand ischemia due to HTN systolic 200s, recent cardiac procedure. -Follow up with Dr. Mcpherson. -Patient has known history of CAD, with 60% stenosis RCA including in-stent stenosis. -Continue aspirin, Plavix, statin, BP control, DM2 control. (3) Elevated troponin: see above (4) Paroxysmal atrial fibrillation: -Was taken off Eliquis and started on Plavix + Aspirin S/P TAVR, continue both for now. -Continue Coreg and amiodarone. (5) CAD (coronary artery disease): -Continue aspirin and Plavix. (6) S/P TAVR (transcatheter aortic valve replacement): -S/P procedure on 02/28 at [facility], no complications. -Procedure site is intact and without signs of infection. (7) (HFpEF) heart failure with preserved ejection fraction: -LVEF of 60-65% as of last admission in October. -Continue home Lasix, low sodium diet. (8) Gastritis determined by endoscopy: -Continue pantoprazole. (9) DM (diabetes mellitus): -Continue Metformin and Glimepiride. (10) Hyperlipemia: -Continue statin. Plan Dispo: home with care per self/daughter Discharge Exam Constitutional WD/WN, vitals as above Neck healing left neck surgical wound, no erythema, no drainage Respiratory normal respiratory effort, lungs clear to auscultation Cardiovascular RRR, no murmur, no edema Skin no rashes, warm and dry Psychiatric A+Ox3, euthymic affect Updated Medication List Medication Instructions Recorded Confirmed Type aspirin 81 mg tablet,delayed 81 mg PO HS 03/04/20 12/21/21 History release metformin 500 mg tablet,extended 1,000 mg PO BIDM 03/04/20 12/21/21 History release 24 hr coenzyme Q10 100 mg capsule 100 mg PO QAM 12/01/20 12/21/21 History (CoQ-10) fish, borage, flaxseed oils-omega 1 cap PO QDD 12/01/20 12/21/21 History 3,6,9 comb no.1 1,200 mg capsule ([place] 3-6-9) atorvastatin 40 mg tablet 40 mg PO QAM 02/26/21 12/21/21 History multivitamin 1 tab PO QAM 02/26/21 12/21/21 History ferrous sulfate 325 mg (65 mg 325 mg PO BID #60 tabs 05/02/21 12/21/21 Rx iron) tablet amiodarone 200 mg tablet 200 mg PO QAM 07/01/21 12/21/21 History hydralazine 100 mg tablet 100 mg PO TID 07/01/21 12/21/21 History pantoprazole 40 mg tablet,delayed 40 mg PO BID 07/01/21 12/21/21 History release glimepiride 4 mg tablet 8 mg PO DAILY 12/21/21 12/21/21 History amlodipine 5 mg tablet (Norvasc) 5 mg PO HS #30 tabs 12/27/21 Rx amlodipine 5 mg tablet (Norvasc) 10 mg PO QAM #60 tabs 12/27/21 Rx carvedilol 6.25 mg tablet 6.25 mg PO BID #60 tabs 12/27/21 Rx furosemide 40 mg tablet 40 mg PO QAM #30 tabs 12/27/21 Rx magnesium oxide 400 mg (241.3 mg 400 mg PO BID #60 tabs 12/27/21 12/21/21 Rx magnesium) tablet clopidogrel 75 mg tablet 75 mg PO QAM #30 tabs 03/06/22 Rx spironolactone 25 mg tablet 12.5 mg PO DAILY 30 days #15 tabs 03/06/22 Rx Hospital Stay Data Consultations 03/05/22 10:23 ED Decision to Admit Stat Pending Results Patient Have Any Pending Studies at Discharge: No Discharge Instructions Given to Patient (Per Discharging Provider) You were admitted to the hospital for observation due to having very high blood pressures on arrival. You were also admitted to monitor your heart enzymes as they were somewhat elevated when you arrived. Those heart enzymes downtrended and your blood pressure improved from when you are at home. While your blood pressure was not at goal for your age on discharge, you were down to 160s/60s, which is much better and we feel you are safe for discharge home with cardiology and primary care follow-up. Please continue your home medications as directed, and allow for about 2 hours before checking blood pressures at home. When you check blood pressure at home, make sure you have both feet flat on the floor, that you have been sitting for at least 5 minutes, and that you are not under increased stress during the blood pressure check. If you have any chest pain, shortness of breath, or significant headache please return to the hospital for urgent evaluation. Please have a follow-up with your primary care provider within 7 to 10 days of discharge to go over your high blood pressure medications. You should also have follow-up with cardiology within the next several weeks if you do not already have this scheduled. Please call Dr. Mcpherson's office in order to schedule an appointment. I have ordered labwork for you to have in one week to check your kidneys on this new blood pressure medication. Please see you medication list below for changes: 1) CONTINUE amiodarone 200 milligrams every morning. This medication is to keep your AFib from going overboard and your heart rate racing. 2) CONTINUE amlodipine 10 milligrams in the morning and 5 milligrams in the evening. This is a blood pressure pill. 3) CONTINUE baby aspirin, 1 tablet daily at night. This medication helps protect the heart from blockages. 4) CONTINUE Plavix (clopidogrel), one tablet every morning. This medication was recommended by Dr. Mcpherson to help the aspirin keep your heart arteries and stents open. 5) CONTINUE atorvastatin, one tablet daily in the morning. This medication decreases your cholesterol, which is the stuff that clogs arteries. 6) CONTINUE carvedilol, one 6.25 milligram tablet in the morning and in the evening. This medication is for blood pressure. 7) CONTINUE iron supplement, one tablet in the morning and in the evening. This is for low blood count. 8) CONTINUE glimepiride, one tablet daily for diabetes. 9) CONTINUE hydralazine, one 100 milligram tablet in the morning, at lunch, and in the evening. This is for blood pressure. 10) CONTINUE magnesium oxide, multivitamin, and omega 3. These are for vitamin deficiency. 11) CONTINUE metformin, 1000 milligrams in the morning and the evening. This is for diabetes. 12) CONTINUE pantoprazole, one tablet in the morning and in the evening. This is for reflux problems and gastritis. 13) START spironolactone, one 12.5 milligram tablet once daily in the morning. This is for blood pressure. New medications were sent to [facility]. Total Time Total Time Spent Total Time Spent (In Minutes): 30 Coding Level of Care Code 12588 OBS Care - Discharge Diagnoses Hypertensive emergency I16.1 Demand ischemia I24.8 Elevated troponin R77.8 Paroxysmal atrial fibrillation I48.0 CAD (coronary artery disease) I25.10 S/P TAVR (transcatheter aortic valve replacement) Z95.2 (HFpEF) heart failure with preserved ejection fraction I50.30 Gastritis determined by endoscopy K29.70 DM (diabetes mellitus) E11.9 Hyperlipemia E78.5
[2022-03-06] MEDS: hydrALAZINE TAB 50 MG TAB PO SCH ×2 (09:29→14:38)
[2022-03-06] MEDS: FERROUS SULFATE 325 MG TAB PO SCH (09:30)
[2022-03-06] MEDS: carvediloL 6.25 MG TAB PO SCH (09:30)
[2022-03-06] MEDS: PANTOprazole 40 MG TAB PO SCH (09:30)
[2022-03-06] MEDS: MAGNESIUM OXIDE 400 MG TAB PO SCH (09:30)
[2022-03-06] MEDS ORDERED: CLOPIDOGREL BISULFATE 75 MG TAB PO SCH (12:00)
[2022-03-06] MEDS ORDERED: LANTUS PER UNIT CHARGE SQ SCH (21:00)
[2022-03-07] MEDS ORDERED: SPIRONOLACTONE 12.5 MG TAB PO SCH (09:00)
== END 2022-03-06 19:19 | disposition home or self-care (01) ==
LOC: ED 07:36 → EDINP 11:12 → INTOOBSV 11:12 → SUATTDRO 11:12 → 2N 13:00
DX: I24.8 Other forms of acute ischemic heart disease; E78.5 Hyperlipidemia, unspecified; Z79.82 Long term (current) use of aspirin; Z79.899 Other long term (current) drug therapy; E11.9 Type 2 diabetes mellitus without complications; I50.30 Unspecified diastolic (congestive) heart failure; K29.70 Gastritis, unspecified, without bleeding; Z87.891 Personal history of nicotine dependence; R77.8 Other specified abnormalities of plasma proteins; Z88.8 Allergy status to other drugs, medicaments and biological substances; I11.0 Hypertensive heart disease with heart failure; Z79.02 Long term (current) use of antithrombotics/antiplatelets; Z79.84 Long term (current) use of oral hypoglycemic drugs; I48.0 Paroxysmal atrial fibrillation; Z95.2 Presence of prosthetic heart valve

== ENCOUNTER 2022-06-19 21:08 | Inpatient (IN) ==
[2022-06-19 22:52] LABS: Basophils # (auto) 0.03 K/uL (0-0.2); Basophils % (auto) 0.2 %; Eosinophils # (auto) 0.05 K/uL (0-0.50); Eosinophils % (auto) 0.3 %; Hemoglobin 12.9 g/dl (12.0-16.0); Immature Granulocytes # (auto) 0.06 K/uL (0.00-0.02); Immature Granulocytes % (auto) 0.4 %; Lymphocytes # (auto) 0.82 K/uL (1.2-3.4); Lymphocytes % (auto) 4.9 %; Mean Corpuscular Hemoglobin 28.3 pg (25.0-34.0); Mean Corpuscular Hgb Conc 33.1 g/dL (32.0-36.0); Mean Corpuscular Volume 85.5 fL (80.0-100.0); Mean Platelet Volume 12.8 fL (9.4-12.3); Monocytes # (auto) 0.87 K/uL (0.24-0.82); Monocytes % (auto) 5.2 %; Neutrophils # (auto) 14.96 K/uL (1.4-6.5); Platelet Count 292 K/uL (130-400); RDW Coefficient of Variation 14.9 % (11.5-14.5); RDW Standard Deviation 46.5 fL (36.4-46.3); Red Blood Count 4.56 M/uL (3.93-5.22); White Blood Count 16.79 K/ul (4.8-10.8)
[2022-06-19] MEDS ORDERED: SODIUM CHLORIDE 0.9% 1000ML 1,000 ML IV ONE (22:58)
[2022-06-19] MEDS ORDERED: fentaNYL citrate 100 MCG/2 ML VIAL IV STA (22:58)
[2022-06-19] MEDS ORDERED: ONDANSETRON INJ 2 MG/ML 2 ML VIAL IV STA (22:58)
--- NOTE | 2022-06-19 23:03 | Emergency Department Note ---
History of Present Illness General Chief complaint: Abdominal Pain Stated complaint: APPENDICITIS,VOMIT, RIGHT SIDE PAIN Time Seen by Provider: 06/19/22 22:49 History of Present Illness Maximum Pain Intensity: 9 81-year-old female presents emergency department with reportedly onset today of right lower quadrant abdominal pain with associated nausea vomiting. According to family at bedside the patient's had prior vascular surgery as well as a cyst removal in the lower abdomen. Patient reported increased pain over the past few hours that has now migrated from the right lower quadrant to the suprapubic region. Patient rates the pain is moderate. There are no other mitigating or a lleviating factors Home Medications Medication Instructions Recorded Confirmed Type aspirin 81 mg tablet,delayed 81 mg PO HS 03/04/20 06/20/22 History release metformin 500 mg tablet,extended 1,000 mg PO BIDM 03/04/20 06/20/22 History release 24 hr coenzyme Q10 100 mg capsule 100 mg PO QAM 12/01/20 06/20/22 History (CoQ-10) fish, borage, flaxseed oils-omega 1 cap PO QDD 12/01/20 06/20/22 History 3,6,9 comb no.1 1,200 mg capsule (Peculiar 3-6-9) atorvastatin 40 mg tablet 40 mg PO QAM 02/26/21 06/20/22 History multivitamin 1 tab PO QAM 02/26/21 06/20/22 History ferrous sulfate 325 mg (65 mg 325 mg PO BID #60 tabs 05/02/21 06/20/22 Rx iron) tablet amiodarone 200 mg tablet 200 mg PO QAM 07/01/21 06/20/22 History hydralazine 100 mg tablet 100 mg PO TID 07/01/21 06/20/22 History pantoprazole 40 mg tablet,delayed 40 mg PO BID 07/01/21 06/20/22 History release glimepiride 4 mg tablet 8 mg PO DAILY 12/21/21 06/20/22 History carvedilol 6.25 mg tablet 6.25 mg PO BID #60 tabs 12/27/21 06/20/22 Rx furosemide 40 mg tablet 40 mg PO QAM #30 tabs 12/27/21 06/20/22 Rx magnesium oxide 400 mg (241.3 mg 400 mg PO BID #60 tabs 12/27/21 06/20/22 Rx magnesium) tablet clopidogrel 75 mg tablet 75 mg PO QAM #30 tabs 03/06/22 06/20/22 Rx amlodipine 10 mg tablet See Rx Instructions .Route .COMPLEX 06/20/22 06/20/22 History Allergies Allergy/AdvReac Type Severity Reaction Status Date / Time fenofibrate AdvReac Intermediate INCREASED Verified 06/20/22 00:24 URINATION metoprolol AdvReac Intermediate VOMIT,DIARR Verified 06/20/22 00:24 HEA valsartan AdvReac Intermediate Weakness Verified 06/20/22 00:24 verapamil AdvReac Intermediate INCREASED Verified 06/20/22 00:24 URINATION Past Med/Surg History Medical History Acute non-ST elevation myocardial infarction (NSTEMI) Acute on chronic heart failure with preserved ejection fraction (HFpEF) Anemia Bradycardia CAD (coronary artery disease) CVA (cerebral vascular accident) (~2018) no deficits Elevated troponin Encounter for pre-operative examination Hyperlipemia Hypertension Hypoxia Myocardial infarct, old follows with Dr. Mcpherson Occlusion of right iliac artery PAD (peripheral artery disease) Pneumonia hx S/P angiogram of extremity (02/02/21) Type 2 diabetes mellitus with diabetic neuropathy, unspecified NIDDM Surgical History H/O removal of cyst right abdominal area History of bunionectomy of right great toe History of cardiac cath (~2018) History of heart artery stent (~2018) x1. at [facility]. Status post ORIF of fracture of ankle Family History Other No family history of adverse response to anesthesia Social History Smoking Status: Former smoker Tobacco Type: Cigarettes Second Hand Exposure: No; Do You Dip or Chew Tobacco: No; Hx Alcohol Use: Yes Alcohol type: beer, wine and hard liquor Hx Substance Use: No Preferred Language: Uzbek Communication Ability: Effective [employer] Required: No Beliefs That Will Affect Care: None marital status: / Current Living Situation: Alone Current Living Situation Comment: ranch style home current occupational status: retired How many Children do You have: 1 Feels Safe at Home: Yes Safety Concerns: Feels Safe At This Time Assistive Devices: Denture - Upper, Denture - Lower and Glasses Review of Systems A total of 10 systems reviewed and were otherwise negative Constitutional: no fever Gastrointestinal: + abdominal pain, + nausea and + vomiting Physical Exam Vital Signs Vital Signs - 24 hr 06/19/22 21:16 06/20/22 00:30 06/20/22 01:20 Temperature 36.8 C Temperature Source Temporal Artery Scan Pulse Rate 70 78 Pulse Rate from SpO2 Sensor 77 78 Respiratory Rate 18 18 Respiratory Effort / Characteristics Non-Labored Spontaneous Respiratory Depth Normal Blood Pressure 194/73 H 183/88 H Blood Pressure Mean 113 119 Blood Pressure Position Sitting Pulse Oximetry 96 86 L 97 Oxygen Delivery Method Room Air Room Air Oxygen Flow Rate 2 Sepsis Recent Fever Within 48 Hours No Sepsis New/Unexplained Change in Mental Status No Sepsis Action Taken by Nursing No Action Required 06/20/22 02:24 06/20/22 02:24 Temperature Temperature Source Pulse Rate Pulse Rate from SpO2 Sensor 78 Respiratory Rate Respiratory Effort / Characteristics Respiratory Depth Blood Pressure 167/79 H Blood Pressure Mean 108 Blood Pressure Position Pulse Oximetry 96 Oxygen Delivery Method Nasal Cannula Oxygen Flow Rate 2 Sepsis Recent Fever Within 48 Hours Sepsis New/Unexplained Change in Mental Status Sepsis Action Taken by Nursing GENERAL: Patient is awake alert and is moaning in pain EYES: The conjunctivae are clear. The pupils are round and reactive. EARS, NOSE, MOUTH AND THROAT: The nose is without any evidence of any deformity. Mucous membranes are moist. Tongue is midline. NECK: The neck is nontender and supple. RESPIRATORY: Normal respiratory effort is noted there is no evidence of wheezing rhonchi or rales CARDIOVASCULAR: Regular rate and rhythm noted there no murmurs rubs or gallops normal S1 normal S2. GASTROINTESTINAL: The abdomen is soft. There is tenderness in the right lower quadrant there is rebound there is no rigidity there is some guarding there is a surgical scar present in the suprapubic region do not palpate a hernia. Decreased bowel sounds PELVIS: The Pelvis is stable. No tenderness to palpation is noted. BACK: No midline tenderness or or step-off noted range of motion in flexion extension as well as rotation no signs of muscle spasm noted MUSCULOSKELETAL/EXTREMITIES: There is no evidence of gross deformity full range of motion is noted in the hips and shoulders. SKIN: There is no obvious evidence of any rash. There are no petechiae, pallor or cyanosis noted. NEUROLOGIC: Patient is awake alert and oriented x3 strength is symmetric Psych: anxious Course Reevaluation(s) Reevaluation #1: Patient on reexamination states the pain has decreased however she is point tender in the right lower quadrant. I discussed evaluation with the patient and the patient's family who are at bedside Time: 01:54 Reevaluation #2: Surgical and medicine involved with care at 205am Time: 02:05 Consultations Consultation #1: Discussed the evaluation and CAT scan read with the surgical PA Rob Time: 02:02 Consultation #2: Patient was evaluated by the surgical PA Time: 02:10 Consultation #3: [facility] the medical staff manager on for admission, patient will be admitted Time: 02:15 Administered Medications Discontinued Medications Fentanyl Citrate (Fentanyl Citrate 100 Mcg/2 Ml Vial) 50 mcg IV NOW STA Stop: 06/19/22 22:59 Last Admin: 06/19/22 23:07 Dose: 50 mcg Documented By: Sodium Chloride (Nss 1000ml) 1,000 mls @ 999 mls/hr IV .Q1H1M ONE Stop: 06/19/22 23:58 Last Infusion: 06/20/22 03:18 Dose: 0 mls/hr Documented By: Admin: 06/19/22 23:10 Dose: 999 mls/hr Documented By: Ioversol (Optiray 350 100ml) 100 ml IV ONCE ONE Stop: 06/20/22 00:05 Last Admin: 06/20/22 00:05 Dose: 84 ml Documented By: SALOMÓN Ioversol (Optiray 350 100ml) 100 ml IV ONCE ONE Stop: 06/20/22 05:59 Last Admin: 06/20/22 05:58 Dose: 85 ml Documented By: SALOMÓN Ondansetron HCl (Ondansetron Inj 2 Mg/Ml 2 Ml Vial) 4 mg IV NOW STA Stop: 06/19/22 22:59 Last Admin: 06/19/22 23:06 Dose: 4 mg Documented By: Medical Decision Making Medical Records Attestation: I reviewed the patient's medical records. Home Medications Current Medication List: was personally reviewed by me Laboratory Data Attestation: I reviewed the patient's lab results. Patient has a leukocytosis 06/19/22 22:20 06/19/22 22:20 Lab Results 06/19/22 06/19/22 06/19/22 Range/Units 22:20 22:20 23:14 WBC 16.79 H (4.8-10.8) K/ul RBC 4.56 (3.93-5.22) M/uL Hgb 12.9 (12.0-16.0) g/dl Hct 39.0 (34.1-44.9) % MCV 85.5 (80.0-100.0) fL MCH 28.3 (25.0-34.0) pg MCHC 33.1 (32.0-36.0) g/dL RDW Std Deviation 46.5 H (36.4-46.3) fL RDW Coeff of Alysa 14.9 H (11.5-14.5) % Plt Count 292 (130-400) K/uL MPV 12.8 H (9.4-12.3) fL Immature Gran % (Auto) 0.4 % Neut % (Auto) 89.0 % Lymph % (Auto) 4.9 % Schley % (Auto) 5.2 % Eos % (Auto) 0.3 % Baso % (Auto) 0.2 % Neut # (Auto) 14.96 H (1.4-6.5) K/uL Lymph # (Auto) 0.82 L (1.2-3.4) K/uL Schley # (Auto) 0.87 H (0.24-0.82) K/uL Eos # (Auto) 0.05 (0-0.50) K/uL Baso # (Auto) 0.03 (0-0.2) K/uL Immature Gran # (Auto) 0.06 H (0.00-0.02) K/uL Sodium 137 (136-145) mmol/L Potassium TNP Chloride 102 (98-107) mmol/L Carbon Dioxide 25 (21-32) mmol/L Anion Gap 10 (3-11) BUN 31 H (6-23) mg/dl Creatinine 1.19 (0.6-1.2) mg/dl Est Cr Clr Drug Dosing Not Reportable Est GFR ( Amer) 50.3 ml/min Est GFR (Non-Af Amer) 43.4 ml/min BUN/Creatinine Ratio 26.1 H (10-20) Glucose 168 H (70-99(Fasting)) mg/dl Lactate (0.4-2.0) mmol/L Calcium 10.2 H (8.5-10.1) mg/dl Total Bilirubin 0.5 (0.2-1.0) mg/dl AST TNP ALT 21 (7-52) U/L Alkaline Phosphatase 93 (34-104) U/L Total Protein 8.2 (6.0-8.3) gm/dl Albumin 4.9 (3.4-5.0) gm/dl Globulin 3.3 (2.5-4.0) gm/dl Albumin/Globulin Ratio 1.5 (0.9-2) Lipase 23 (11-82) U/L Procalcitonin (0-0.5) ng/ml Urine Color Urine Appearance (Clear) Urine pH (4.5-7.5) Ur Specific [place] (1.000-1.030) Urine Protein (Negative) Urine Glucose (UA) (Negative) Urine Ketones (Negative) Urine Blood (Negative) Urine Nitrite (Negative) Urine Bilirubin (Negative) Urine Urobilinogen (Negative) Ur Leukocyte Esterase (Negative) Urine WBC (Auto) (0-5) /hpf Urine RBC (Auto) (0-4) /hpf U Hyaline Cast (Auto) (0-5) /lpf U Epithel Cells (Auto) (0-5) /lpf Urine Bacteria (Auto) (Negative) SARS-CoV-2, RNA, NAAT NEGATIVE (NEGATIVE) 06/19/22 06/19/22 06/20/22 Range/Units 23:44 23:44 01:17 WBC (4.8-10.8) K/ul RBC (3.93-5.22) M/uL Hgb (12.0-16.0) g/dl Hct (34.1-44.9) % MCV (80.0-100.0) fL MCH (25.0-34.0) pg MCHC (32.0-36.0) g/dL RDW Std Deviation (36.4-46.3) fL RDW Coeff of Alysa (11.5-14.5) % Plt Count (130-400) K/uL MPV (9.4-12.3) fL Immature Gran % (Auto) % Neut % (Auto) % Lymph % (Auto) % Schley % (Auto) % Eos % (Auto) % Baso % (Auto) % Neut # (Auto) (1.4-6.5) K/uL Lymph # (Auto) (1.2-3.4) K/uL Schley # (Auto) (0.24-0.82) K/uL Eos # (Auto) (0-0.50) K/uL Baso # (Auto) (0-0.2) K/uL Immature Gran # (Auto) (0.00-0.02) K/uL Sodium (136-145) mmol/L Potassium 4.2 Chloride (98-107) mmol/L Carbon Dioxide (21-32) mmol/L Anion Gap (3-11) BUN (6-23) mg/dl Creatinine (0.6-1.2) mg/dl Est Cr Clr Drug Dosing Est GFR ( Amer) ml/min Est GFR (Non-Af Amer) ml/min BUN/Creatinine Ratio (10-20) Glucose (70-99(Fasting)) mg/dl Lactate 0.7 (0.4-2.0) mmol/L Calcium (8.5-10.1) mg/dl Total Bilirubin (0.2-1.0) mg/dl AST 17 ALT (7-52) U/L Alkaline Phosphatase (34-104) U/L Total Protein (6.0-8.3) gm/dl Albumin (3.4-5.0) gm/dl Globulin (2.5-4.0) gm/dl Albumin/Globulin Ratio (0.9-2) Lipase (11-82) U/L Procalcitonin < 0.05 (0-0.5) ng/ml Urine Color Urine Appearance (Clear) Urine pH (4.5-7.5) Ur Specific [place] (1.000-1.030) Urine Protein (Negative) Urine Glucose (UA) (Negative) Urine Ketones (Negative) Urine Blood (Negative) Urine Nitrite (Negative) Urine Bilirubin (Negative) Urine Urobilinogen (Negative) Ur Leukocyte Esterase (Negative) Urine WBC (Auto) (0-5) /hpf Urine RBC (Auto) (0-4) /hpf U Hyaline Cast (Auto) (0-5) /lpf U Epithel Cells (Auto) (0-5) /lpf Urine Bacteria (Auto) (Negative) SARS-CoV-2, RNA, NAAT (NEGATIVE) 06/20/22 Range/Units 01:24 WBC (4.8-10.8) K/ul RBC (3.93-5.22) M/uL Hgb (12.0-16.0) g/dl Hct (34.1-44.9) % MCV (80.0-100.0) fL MCH (25.0-34.0) pg MCHC (32.0-36.0) g/dL RDW Std Deviation (36.4-46.3) fL RDW Coeff of Alysa (11.5-14.5) % Plt Count (130-400) K/uL MPV (9.4-12.3) fL Immature Gran % (Auto) % Neut % (Auto) % Lymph % (Auto) % Schley % (Auto) % Eos % (Auto) % Baso % (Auto) % Neut # (Auto) (1.4-6.5) K/uL Lymph # (Auto) (1.2-3.4) K/uL Schley # (Auto) (0.24-0.82) K/uL Eos # (Auto) (0-0.50) K/uL Baso # (Auto) (0-0.2) K/uL Immature Gran # (Auto) (0.00-0.02) K/uL Sodium (136-145) mmol/L Potassium Chloride (98-107) mmol/L Carbon Dioxide (21-32) mmol/L Anion Gap (3-11) BUN (6-23) mg/dl Creatinine (0.6-1.2) mg/dl Est Cr Clr Drug Dosing Est GFR ( Amer) ml/min Est GFR (Non-Af Amer) ml/min BUN/Creatinine Ratio (10-20) Glucose (70-99(Fasting)) mg/dl Lactate (0.4-2.0) mmol/L Calcium (8.5-10.1) mg/dl Total Bilirubin (0.2-1.0) mg/dl AST ALT (7-52) U/L Alkaline Phosphatase (34-104) U/L Total Protein (6.0-8.3) gm/dl Albumin (3.4-5.0) gm/dl Globulin (2.5-4.0) gm/dl Albumin/Globulin Ratio (0.9-2) Lipase (11-82) U/L Procalcitonin (0-0.5) ng/ml Urine Color Yellow Urine Appearance Clear (Clear) Urine pH 5.5 (4.5-7.5) Ur Specific [place] 1.025 (1.000-1.030) Urine Protein 2+ H (Negative) Urine Glucose (UA) Negative (Negative) Urine Ketones Negative (Negative) Urine Blood Negative (Negative) Urine Nitrite Negative (Negative) Urine Bilirubin Negative (Negative) Urine Urobilinogen Negative (Negative) Ur Leukocyte Esterase Negative (Negative) Urine WBC (Auto) 0 (0-5) /hpf Urine RBC (Auto) 0-4 (0-4) /hpf U Hyaline Cast (Auto) 0 (0-5) /lpf U Epithel Cells (Auto) 0-5 (0-5) /lpf Urine Bacteria (Auto) Negative (Negative) SARS-CoV-2, RNA, NAAT (NEGATIVE) Imaging Data Attestation: I personally reviewed and interpreted this imaging study as fo llows: My Impression: CT reviewed by me and appreciate stat rad read Radiologist's Impression: * Patient: YIN BRO (Female) : 44 Status: ER Date: 06/20/22 00:11 Room #: History: DIFFUSE ABD PAIN Slices: [id number] Priors: Tech: Antwon Mcfarlane @ [phone] Exams: CT ABDOMEN & PELVIS With Contrast Contrast: IV Amt: 84 ML OPTIRAY 350 Accession Numbers: [id number] Referring Physician: VLADIMIR CASTELLANOS Preliminary Findings Only See Final Report For Complete Findings CT ABDOMEN & PELVIS With Contrast: Slightly heterogeneous gallbladder contents may reflect sludge in an otherwise normal-appearing gallbladder The solid organs demonstrate no acute process The stomach, small bowel and large bowel are unremarkable Femorofemoral crossover bypass graft appears patent Incidental note made of bulky calcific atherosclerotic plaque of the aorta resulting in moderate to high-grade aortic stenoses Radiologist: Umair Hart MD2:01 AM10 days left MDM Narrative Medical decision making differential diagnosis includes appendicitis, small bowel obstruction, gastroenteritis, colitis, abdominal aortic aneurysm, metabolic derangement, dehydration. Plan is to check labs, CT abdomen pelvis, give IV fluids and IV opiates Nursing notes were reviewed by me and appreciated External medical records have been reviewed regarding this patient's prior surgical presentations Family at bedside has provided me with history as well CT is unrevealing ; patient has tenderness in the right lower quadrant the femorofemoral bypass is reportedly patent it is unknown whether patient had appendicitis in the past or an appendectomy in the past. Patient continues to have pain in the right lower quadrant and had been given IV opiates. The concern is for appendicitis or another intra-abdominal process. Patient will be admitted; Repeat CT with oral contrast will be obtained Impression & Plan Abdominal pain, RLQ Discharge Plan Visit Data Chief Complaint: Abdominal Pain Stated Complaint: APPENDICITIS,VOMIT, RIGHT SIDE PAIN ED Provider: Vladimir Castellanos Discharge Problem: Abdominal pain, RLQ Patient Disposition: Admitted As Inpatient Discharge Instructions Interventions: ED Discharge Assessment Last Done: 06/20/22 06:26
[2022-06-19 23:20] LABS: Alanine Aminotransferase 21 U/L (7-52); Albumin Globulin Ratio 1.5 (0.9-2); Albumin Level 4.9 gm/dl (3.4-5.0); Alkaline Phosphatase 93 U/L (34-104); Anion Gap 10 (3-11); BUN Creatinine Ratio 26.1 (10-20); Bilirubin,Total 0.5 mg/dl (0.2-1.0); Blood Urea Nitrogen 31 mg/dl (6-23); Calcium 10.2 mg/dl (8.5-10.1); Carbon Dioxide 25 mmol/L (21-32); Chloride 102 mmol/L (98-107); Est GFR (African American) 50.3 ml/min; Est GFR (Non-African American) 43.4 ml/min; Globulin 3.3 gm/dl (2.5-4.0); Glucose 168 mg/dl (70-99(Fasting)); Lipase 23 U/L (11-82); Sodium 137 mmol/L (136-145); Total Protein 8.2 gm/dl (6.0-8.3)
[2022-06-20] MEDS ORDERED: OPTIRAY 350 100ml IV ONE ×2 (00:04→05:58)
[2022-06-20 00:41] LABS: Potassium 4.2 mmol/L (3.5-5.1)
[2022-06-20] MEDS ORDERED: SODIUM CHLORIDE 0.9% 1000ML 1,000 ML IV ONE (01:34)
[2022-06-20 01:39] LABS: Appearance Urine Clear (Clear); Bacteria Urine Automated Negative (Negative); Bilirubin Urine Negative (Negative); Blood Urine Negative (Negative); Cast Urine Automated 0 /lpf (0-5); Color Urine Yellow; Epithelial Cell Urine Auto 0-5 /lpf (0-5); Glucose Urine UA Negative (Negative); Ketones Urine Negative (Negative); Leukocyte Esterase Urine Negative (Negative); Nitrite Urine Negative (Negative); Protein Urine 2+ (Negative); RBC Urine Automated 0-4 /hpf (0-4); Specific Gravity Urine 1.025 (1.000-1.030); Urobilinogen Urine Negative (Negative); WBC Urine Automated 0 /hpf (0-5); pH Urine 5.5 (4.5-7.5)
--- NOTE | 2022-06-20 03:23 | Surgery Consultation ---
Date of Consultation June 20, 2022 Assessment & Plan (1) Abdominal pain, RLQ: I discussed this case with the treating emergency room physician and he is planning on having the patient admitted on the hospitalist service. I discussed the case with the admitting hospitalist service as well. It is unclear as to the cause of the patient's leukocytosis and abdominal pain. Considerations include but are not limited to appendicitis, mesenteric adenitis, or TOOL WORKER causes. As noted in the HPI section of this document I discussed with the radiologist who interpreted patient's initial CAT scan and he notes that as appendicitis has not been excluded from the differential diagnosis consideration should be given to repeating a CT scan utilizing IV and oral contrast. The treating emergency room physician has already ordered this study and will wait for the results and act accordingly. I discussed the above with the admitting hospitalist service. History of Present Illness Reason for Consultation: Abdominal pain History of Present Illness This is a 81-year-old female who presented to [facility] emergency department secondary to abdominal pain. She notes that the pain began on 06/19/2022 in the late morning early afternoon. The patient said that she thought she had "gas pain" and did not seek medical attention immediately. She notes that her pain persisted throughout the day. She did not note any modifying factors of her pain and did not note any radiation of the pain. She notes that the pain is specifically located in the right lower quadrant and is been there since the onset. With her pain she denies any fevers, shakes, or chills. She does not report any vomiting but has had some nausea. The patient denies any issues with constipation or bright red blood per rectum. She also denies any melanotic stools. She denies any diarrhea. I question the patient on whether she had prior abdominal surgeries and she said she had a right ovarian cyst removed she believes greater than 40 years ago. She also notes that she has had a femoro-femoral bypass performed by Dr. Cash. No other abdominal surgeries have been reported. Since arrival to the emergency department the patient has had labs and imaging which I independent reviewed. A CBC revealed white blood cell count was elevated 16.7. Hemoglobin, hematocrit, platelet count were normal. Chemistry profile showed sodium, potassium, and creatinine were all normal. There is a slight elevation of her BUN at 31. Lactic acid level was nonelevated at 0.7. There is no elevation of patient's LFTs or lipase. Urinalysis was performed and was not indicative of infection. A COVID test was negative.A CT scan of the abdomen pelvis was performed utilizing IV contrast. This study showed the patient had a heterogeneous gallbladder with some sludge but was otherwise normal-appearing. There is no acute process noted in the solid organs of the abdomen. The stomach and small bowel as well as the large bowel were noted to be unremarkable. The patient did have a femoral-femoral bypass graft that appeared patent. I was contacted by the treating emergency room physician and he noted that the patient was having continued right lower quadrant abdominal pain despite receiving some intravenous fentanyl. On exam the patient noted she continued to have right lower quadrant pain and I therefore personally spoke with the interpreting radiologist to discuss the findings. After additional review of the CAT scan he noted that there was a 1 cm tubular structure in the region of the right iliac fossa. He noted the anterior aspect of the structure approximated to the base of the cecum with the posterior aspect of the structure associated with the fundus of the uterus. The interpreting radiologist did not note that there is any inflammation in the right lower quadrant and he also noted that the terminal ileum appeared normal. He noted that the tubular structure in question may reflect a component of the right sided fallopian tube or broad ligament. As the patient was having further abdominal pain he did suggest potentially performing a repeat CAT scan utilizing oral and IV contrast. At the time of my interview the patient was resting comfortably in bed and she was in no distress. Allergies Allergy/AdvReac Type Severity Reaction Status Date / Time fenofibrate AdvReac Intermediate INCREASED Verified 06/20/22 00:24 URINATION metoprolol AdvReac Intermediate VOMIT,DIARR Verified 06/20/22 00:24 HEA valsartan AdvReac Intermediate Weakness Verified 06/20/22 00:24 verapamil AdvReac Intermediate INCREASED Verified 06/20/22 00:24 URINATION Home Medications Medication Instructions Recorded Confirmed Type aspirin 81 mg tablet,delayed 81 mg PO HS 03/04/20 06/20/22 History release metformin 500 mg tablet,extended 1,000 mg PO BIDM 03/04/20 06/20/22 History release 24 hr coenzyme Q10 100 mg capsule 100 mg PO QAM 12/01/20 06/20/22 History (CoQ-10) fish, borage, flaxseed oils-omega 1 cap PO QDD 12/01/20 06/20/22 History 3,6,9 comb no.1 1,200 mg capsule ([place] 3-6-9) atorvastatin 40 mg tablet 40 mg PO QAM 02/26/21 06/20/22 History multivitamin 1 tab PO QAM 02/26/21 06/20/22 History ferrous sulfate 325 mg (65 mg 325 mg PO BID #60 tabs 05/02/21 06/20/22 Rx iron) tablet amiodarone 200 mg tablet 200 mg PO QAM 07/01/21 06/20/22 History hydralazine 100 mg tablet 100 mg PO TID 07/01/21 06/20/22 History pantoprazole 40 mg tablet,delayed 40 mg PO BID 07/01/21 06/20/22 History release glimepiride 4 mg tablet 8 mg PO DAILY 12/21/21 06/20/22 History carvedilol 6.25 mg tablet 6.25 mg PO BID #60 tabs 12/27/21 06/20/22 Rx furosemide 40 mg tablet 40 mg PO QAM #30 tabs 12/27/21 06/20/22 Rx magnesium oxide 400 mg (241.3 mg 400 mg PO BID #60 tabs 12/27/21 06/20/22 Rx magnesium) tablet clopidogrel 75 mg tablet 75 mg PO QAM #30 tabs 03/06/22 06/20/22 Rx amlodipine 10 mg tablet See Rx Instructions .Route .COMPLEX 06/20/22 06/20/22 History Patient History Medical History Acute non-ST elevation myocardial infarction (NSTEMI) Acute on chronic heart failure with preserved ejection fraction (HFpEF) Anemia Bradycardia CAD (coronary artery disease) CVA (cerebral vascular accident) (~2019) no deficits Elevated troponin Encounter for pre-operative examination Hyperlipemia Hypertension Hypoxia Myocardial infarct, old follows with Dr. Mcpherson Occlusion of right iliac artery PAD (peripheral artery disease) Pneumonia hx S/P angiogram of extremity (02/02/21) Type 2 diabetes mellitus with diabetic neuropathy, unspecified NIDDM Surgical History H/O removal of cyst right abdominal area History of bunionectomy of right great toe History of cardiac cath (~2019) History of heart artery stent (~2019) x1. at [facility] [place]. 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 Restoration Service Required: No Beliefs That Will Affect Care: None marital status: / Current Living Situation: Alone Current Living Situation Comment: ranch style home current occupational status: retired How many Children do You have: 1 Feels Safe at Home: Yes Assistive Devices: Glasses Review of Systems Constitutional: no fever and no chills Eyes: no eye pain Ear, Nose, Mouth, Throat: no ear pain Respiratory: no cough and no dyspnea Cardiovascular: no chest pain Gastrointestinal: + abdominal pain and + nausea; no vomiting and no diarrhea/loose stools Genitourinary: no dysuria Musculoskeletal: no back pain Integumentary: no rash Neurologic: no localized weakness Physical Exam Constitutional: WD/WN, vitals as above Eyes: no conjunctival abnormality ENMT: Ears: no hearing impairment and no external ear abnormality Mouth: no oropharynx abnormality Neck: trachea midline Well-healed incision noted on the lateral aspect of the left side of the neck consistent with previous carotid endarterectomy was noted Respiratory: normal respiratory effort; no respiratory distress and no labored breathing Cardiovascular: Rate/Rhythm: regular rate and regular rhythm Dorsalis pedis and posterior tibial pulses were palpable bilaterally. A femoral-femoral bypass graft was noted in the lower abdomen with a noted bruit on auscultation Gastrointestinal (Abdomen): Abdomen is soft, nonrigid, and nondistended. Bowel sounds are hypoactive. There is pain noted with palpation in the right lower quadrant. Musculoskeletal: No calf tenderness Skin: no rashes Neurologic: moves all extremities Psychiatric: A+Ox3, euthymic affect Results & Data ([facility]) Vital Signs (Past 12 Hours) Vital Signs Temp Pulse Resp BP Pulse Ox O2 Del Method O2 Flow Rate 06/20/22 02:24 96 Nasal Cannula 2 06/20/22 02:24 167/79 H 06/20/22 01:20 183/88 H 97 2 06/20/22 00:30 78 18 86 L Room Air 06/19/22 21:16 36.8 C 70 18 194/73 H 96 Room Air PG Care Time/CCT Total # of Minutes Spent Total Time Spent with Patient: Total time spent is greater than 50% in coordination of care (as documented) at patient's floor/unit and/or counseling patient: Coding Level of Care Code 22266 INT INP/OBS CARE 3/75MIN Diagnoses Abdominal pain, RLQ R10.31
[2022-06-20] MEDS ORDERED: ACETAMINOPHEN 1,000 MG/100 ML VIAL IV STA (06:37)
--- NOTE | 2022-06-20 07:27 | CT Scan Report ---
CT SCAN OF THE ABDOMEN AND PELVIS WITH IV CONTRAST CLINICAL HISTORY: Right lower quadrant abdominal pain. COMPARISON STUDY: Abdominal CT dated 06/19/2022 and 10/30/2021. TECHNIQUE: Following the IV administration of 85 cc of Optiray 350, CT scan of the abdomen and pelvi s is performed from the lung bases to the proximal femora. Images are reviewed in the axial, sagittal , and coronal planes. IV contrast was administered without complication. Oral contrast was utilized. A dose lowering technique was utilized adhering to the principles of ALARA. CT DOSE: 408.07 mGy.cm FINDINGS: Lung bases: The heart is enlarged and without pericardial effusion. The coronary arteries are densely calcified. There is evidence of previous aortic valve surgery. A small hiatal hernia is noted. The l deborah bases are clear noting bibasilar scarring/atelectasis. Liver: The contrast-enhanced liver is normal in size, contour, and attenuation. There is no intrahepa tic biliary ductal dilatation. The hepatic veins and portal veins are patent. Gallbladder: Unremarkable. Spleen: Normal in size and attenuation. Pancreas: Unremarkable. Adrenal glands: Unremarkable. Kidneys: The contrast enhanced kidneys are normal in size and without hydronephrosis. The kidneys enh ance symmetrically. 3 mm cyst is seen in the left upper pole. 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 A femorofemoral bypass is p atent. Bowel: There is significant wall thickening involving the cecum and ascending colon with mild surroun ding inflammation. The small bowel loops are distended, measuring up to 3.0 cm in diameter. There is no evidence of complete obstruction, as enteric contrast reaches the colon. There is moderate colonic fecal retention. The appendix is not clearly identified. A structure posterior/inferior to the cecu m on image #327 represents the right ovary. Peritoneum: There is no intraperitoneal free air or abdominal ascites. Lymphadenopathy: None. Pelvic viscera: The bladder is decompressed around a Castañeda catheter and appears thick-walled. The vel dder contains excreted IV contrast. The uterus is normal as visualized. A 2.2 cm simple cystic lesion is noted in the left ovary on image #349. Skeletal structures: The skeletal structures are osteopenic. There is moderate lumbosacral spondylosi s. No lytic or blastic lesions are seen. IMPRESSION: 1. There are significant wall thickening and inflammation involving the cecum and ascending colon. Th is is consistent with a nonspecific colitis. Consider nonemergent follow-up colonoscopy for further e valuation of the underlying right colon. 2. There is distention of the upstream small bowel loops, likely representing ileus versus partial ob struction related to the cecal inflammation. There is no complete obstruction as enteric contrast tammi ches the colon. 3. The appendix is not visualized. There is no CT evidence of acute appendicitis. The structure quest ioned on the 06/19/2022 examination corresponds to the right ovary and is unchanged from prior examina tions. 4. 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 5. Cardiomegaly. 6. Additional findings as above. ACT 112: Negative or not required by law. Electronically signed by: Arun Amador M.D. 06/20/2022 7:25 AM
--- NOTE | 2022-06-20 07:46 | History & Physical Report ---
Date of Service June 20, 2022 Assessment & Plan (1) Abdominal pain, RLQ: Plan: 72-year-old woman with acute right lower quadrant abdominal pain. Now admitted for concern for possible acute abdomen. Abdominal pain, RLQ -Although patient was signed out by ED physician, and admission orders were entered, the decision was made, after discussing with the night hospitalist, to defer further work-up, or documentation given surgical PA's concern for acute appendicitis, until/unless after repeat CT abdomen pelvis returned negative for acute appendicitis (as the patient would be a more appropriate candidate for immediate surgical intervention vs admission). -Gave IV Tylenol 1000 mg x 1 dose for new fever of 38.2. -Repeat CT showed no evidence of acute appendicitis. Imaging did reveal significant wall thickening, inflammation of cecum and ascending colon, consistent with nonspecific colitis. -Management per daytime hospitalist (see progress note for plan) Hypertension -Elevated pressure on admission. Initially made n.p.o. rule out for sips for medicines following discussion with surgery PA -Patient on hydralazine, Coreg, amlodipine * Continue home meds Coronary artery disease -History of NSTEMI with stent placement in 2019 at [facility]. -Managed on Coreg, amlodipine, as above; atorvastatin, aspirin, clopidogrel * Continue home meds Atrial fibrillation -Managed on aspirin, Plavix, Coreg for rate control * Continue home med regimen Diabetes -Patient takes metformin 1000 mg twice daily, glimepiride 8 mg p.o. daily -Held on admission * SQ SSI insulin per protocol Code: Full code Dispo: Med-Surg telemetry FEN/GI: NPO DVT Prophylaxis: Lovenox 40 mg q24h PT/OT: Consults: None Admission and Anticipated Discharge Date Admission Date: June 20, 2022 History of Present Illness Primary Care Provider: Tiara Ochoa PA-C Patient is a 81-year-old woman who presented to the emergency room with severe abdominal pain that began after lunch yesterday. Pain is localized to the right lower quadrant. She denies nausea, vomiting, shortness of breath, chest pain, diarrhea, constipation, hematuria and melena. She had surgery in her right lower abdomen for removal of a right cyst some 47 years ago. Otherwise, she recently had a femoral-femoral bypass graft placed by Dr. Cash a few years ago. In the ED, vitals were notable for elevated blood pressure in the 160s to 180s systolic over 80s diastolic. She was afebrile, and respirating on room air. UA was negative for nitrites, LE, but had showed some proteinuria. CT abdomen pelvis was negative for acute findings on stat rad report she received 1 dose of IV fentanyl 50 mcg, and IV normal saline bolus x2 L. Surgery was consulted, who recommended repeat CT abdomen pelvis with concern for appendicitis. Allergies Allergy/AdvReac Type Severity Reaction Status Date / Time fenofibrate AdvReac Intermediate INCREASED Verified 06/20/22 00:24 URINATION metoprolol AdvReac Intermediate VOMIT,DIARR Verified 06/20/22 00:24 HEA valsartan AdvReac Intermediate Weakness Verified 06/20/22 00:24 verapamil AdvReac Intermediate INCREASED Verified 06/20/22 00:24 URINATION Home Medications Medication Instructions Recorded Confirmed Type aspirin 81 mg tablet,delayed 81 mg PO HS 03/04/20 06/20/22 History release metformin 500 mg tablet,extended 1,000 mg PO BIDM 03/04/20 06/20/22 History release 24 hr coenzyme Q10 100 mg capsule 100 mg PO QAM 12/01/20 06/20/22 History (CoQ-10) fish, borage, flaxseed oils-omega 1 cap PO QDD 12/01/20 06/20/22 History 3,6,9 comb no.1 1,200 mg capsule ([place] 3-6-9) atorvastatin 40 mg tablet 40 mg PO QAM 02/26/21 06/20/22 History multivitamin 1 tab PO QAM 02/26/21 06/20/22 History ferrous sulfate 325 mg (65 mg 325 mg PO BID #60 tabs 05/02/21 06/20/22 Rx iron) tablet amiodarone 200 mg tablet 200 mg PO QAM 07/01/21 06/20/22 History hydralazine 100 mg tablet 100 mg PO TID 07/01/21 06/20/22 History pantoprazole 40 mg tablet,delayed 40 mg PO BID 07/01/21 06/20/22 History release glimepiride 4 mg tablet 8 mg PO DAILY 12/21/21 06/20/22 History carvedilol 6.25 mg tablet 6.25 mg PO BID #60 tabs 12/27/21 06/20/22 Rx furosemide 40 mg tablet 40 mg PO QAM #30 tabs 12/27/21 06/20/22 Rx magnesium oxide 400 mg (241.3 mg 400 mg PO BID #60 tabs 12/27/21 06/20/22 Rx magnesium) tablet clopidogrel 75 mg tablet 75 mg PO QAM #30 tabs 03/06/22 06/20/22 Rx amlodipine 10 mg tablet See Rx Instructions .Route .COMPLEX 06/20/22 06/20/22 History Past Med/Surg History Medical History Acute non-ST elevation myocardial infarction (NSTEMI) Acute on chronic heart failure with preserved ejection fraction (HFpEF) Anemia Bradycardia CAD (coronary artery disease) CVA (cerebral vascular accident) (~2018) no deficits Elevated troponin Encounter for pre-operative examination Hyperlipemia Hypertension Hypoxia Myocardial infarct, old follows with Dr. Mcpherson Occlusion of right iliac artery PAD (peripheral artery disease) Pneumonia hx S/P angiogram of extremity (02/02/21) Type 2 diabetes mellitus with diabetic neuropathy, unspecified NIDDM Surgical History H/O removal of cyst right abdominal area History of bunionectomy of right great toe History of cardiac cath (~2018) History of heart artery stent (~2018) x1. at [facility]. Status post ORIF of fracture of ankle Family History Other No family history of adverse response to anesthesia Social History Smoking Status: Former smoker Tobacco Type: Cigarettes Second Hand Exposure: No; Do You Dip or Chew Tobacco: No; Hx Alcohol Use: Yes Alcohol type: beer, wine and hard liquor Hx Substance Use: No Preferred Language: Barbadian Communication Ability: Effective Programming Internship Required: No Beliefs That Will Affect Care: None marital status: / Current Living Situation: Alone Current Living Situation Comment: ranch style home current occupational status: retired How many Children do You have: 1 Feels Safe at Home: Yes Safety Concerns: Feels Safe At This Time Assistive Devices: Denture - Upper, Denture - Lower and Glasses Review of Systems Review of Systems: All systems reviewed & are unremarkable except as noted in HPI & below Physical Exam Physical Exam: General: Elderly woman in mild distress HEENT: PERRLA. Normal conjunctiva, anicteric sclera. Oropharynx normal. Respiratory: Normal respiratory effort, CTA BL. Cardiovascular: RRR without murmurs, gallops, or rubs. No edema. GI: Soft abdomen with normal bowel sounds heard on auscultation. Tender to moderate palpation in right lower quadrant + guarding, no rebound. Neuro: Alert and oriented x3. Results & Data Results & Data ([facility]) Vital Signs (Past 12 Hours) Vital Signs Temp Pulse Pulse Resp BP BP Pulse Ox 06/20/22 07:00 72 20 168/67 H 94 06/20/22 07:06 06/20/22 06:21 38.2 C H 79 18 177/84 H 96 06/20/22 04:00 79 19 181/57 H 95 06/20/22 03:30 84 17 188/74 H 96 06/20/22 02:24 96 06/20/22 02:24 167/79 H 06/20/22 01:20 183/88 H 97 06/20/22 00:30 78 18 86 L 06/19/22 21:16 36.8 C 70 18 194/73 H 96 Pulse Ox O2 Del Method O2 Del Method O2 Flow Rate 06/20/22 07:00 Room Air 06/20/22 07:06 95 Room Air 06/20/22 06:21 Room Air 06/20/22 04:00 Room Air 06/20/22 03:30 Room Air 06/20/22 02:24 Nasal Cannula 2 06/20/22 02:24 06/20/22 01:20 2 06/20/22 00:30 Room Air 06/19/22 21:16 Room Air Supervising Physician Co-Signing Physician Notes Attending addendum: I have physically seen this patient, have supervised the medical residents activities, and agree with the H&P unless as otherwise noted. Assessment and Plan: Abdominal pain right lower quadrant- CT suggestive of nonspecific colitis involving the cecum and ascending colon Delayed admission associated with further work-up with a follow-up concern regarding possible appendicitis N.p.o. except medications IV antibiotics CAD/atrial fibrillation/NSTEMI history/history of coronary artery stent/hypertension- Continue carvedilol, amlodipine Hold aspirin and clopidogrel Diabetes mellitus- Holding metformin and glimepiride Place on Accu-Cheks before meals and at bedtime/every 6 hours with NovoLog coverage per scale Remaining orders and notations as noted Resident Activity Tracking Resident Involvement: Resident Care Provided Care Provided: Adult [facility]
[2022-06-20] MEDS ORDERED: PIPERACILLIN/TAZOBACTAM 4.5 GM in DEXTROSE 5% 100 ML IV SCH (08:00)
[2022-06-20] MEDS ORDERED: PIPERACILLIN/TAZOBACTAM 3.375 GM (over 30 mins) IV ONE (08:00)
--- NOTE | 2022-06-20 08:01 | Hospitalist Progress Note ---
Date of Service June 20, 2022 Assessment & Plan (1) Abdominal pain, RLQ: Plan: Patient with acute abdominal pain concern for appendicitis. Leukocytosis. Imaging study rules out appendicitis but shows colitis in the cecum and ascending colon. 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 (3) DM (diabetes mellitus): Plan: typically on metformin and glyburide, is chronic problem and stable, due to ileus and variable intake will need to change to basal bolus Admission and Anticipated Discharge Date Admission Date: June 20, 2022 Results & Data Results & Data ([facility]) Vital Signs (Past 12 Hours) Vital Signs Temp Pulse Pulse Resp BP BP Pulse Ox 06/20/22 07:00 72 20 168/67 H 94 06/20/22 07:06 06/20/22 06:21 100.8 F H 79 18 177/84 H 96 06/20/22 04:00 79 19 181/57 H 95 06/20/22 03:30 84 17 188/74 H 96 06/20/22 02:24 96 06/20/22 02:24 167/79 H 06/20/22 01:20 183/88 H 97 06/20/22 00:30 78 18 86 L 06/19/22 21:16 98.2 F 70 18 194/73 H 96 Pulse Ox O2 Del Method O2 Del Method O2 Flow Rate 06/20/22 07:00 Room Air 06/20/22 07:06 95 Room Air 06/20/22 06:21 Room Air 06/20/22 04:00 Room Air 06/20/22 03:30 Room Air 06/20/22 02:24 Nasal Cannula 2 06/20/22 02:24 06/20/22 01:20 2 06/20/22 00:30 Room Air 06/19/22 21:16 Room Air Laboratory Results review of CBC shows leukocytosis review of PRP shows stable CKD 3 and diabetes with glucose Diagnostic Findings Abdomen/Pelvis CT 06/20/22 02:36 CT SCAN OF THE ABDOMEN AND PELVIS WITH IV CONTRAST 1. There are significant wall thickening and inflammation involving the cecum and ascending colon. This is consistent with a nonspecific colitis. Consider nonemergent follow-up colonoscopy for further evaluation of the underlying right colon. 2. There is distention of the upstream small bowel loops, likely representing ileus versus partial obstruction related to the cecal inflammation. There is no complete obstruction as enteric contrast reaches the colon. 3. The appendix is not visualized. There is no CT evidence of acute appendicitis. The structure questioned on the 06/19/2022 examination corresponds to the right ovary and is unchanged from prior examinations. 4. 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 5. Cardiomegaly. 6. Additional findings as above. ACT 112: Negative or not required by law. Electronically signed by: Arun Amador M.D. 06/20/2022 7:25 AM PG Care Time/CCT Total # of Minutes Spent Total Time Spent with Patient: Total time spent is greater than 50% in coordination of care (as documented) at patient's floor/unit and/or counseling patient: Coding Level of Care Code None Diagnoses Abdominal pain, RLQ R10.31 Paroxysmal atrial fibrillation I48.0 DM (diabetes mellitus) E11.9
--- NOTE | 2022-06-20 09:02 | CT Scan Report ---
CT SCAN OF THE ABDOMEN AND PELVIS WITH IV CONTRAST CLINICAL HISTORY: Generalized abdominal pain. COMPARISON STUDY: Abdominal CT scans dated 10/30/2021 and 12/15/2020. TECHNIQUE: Following the IV administration of 84 cc of Optiray 350, CT scan of the abdomen and pelvi s is performed from the lung bases to the proximal femora. Images are reviewed in the axial, sagittal , and coronal planes. IV contrast was administered without complication. A dose lowering technique w as utilized adhering to the principles of ALARA. CT DOSE: 465.53 mGy.cm FINDINGS: Lung bases: The heart is enlarged and without pericardial effusion. The coronary arteries are densely calcified. There is evidence of previous aortic valve surgery. A small hiatal hernia is noted. The l deborah bases are clear noting bibasilar scarring/atelectasis. Liver: The contrast-enhanced liver is normal in size, contour, and attenuation. There is no intrahepa tic biliary ductal dilatation. The hepatic veins and portal veins are patent. Gallbladder: Unremarkable. Spleen: Normal in size and attenuation. Pancreas: Unremarkable. Adrenal glands: Unremarkable. Kidneys: The contrast enhanced kidneys are normal in size and without hydronephrosis. The kidneys enh ance symmetrically. An 8 mm cyst is seen in the left upper pole. There is a 4 mm nonobstructing left renal calculus. 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 A femorofemoral bypass is p atent. Bowel: There is significant wall thickening involving the cecum and ascending colon with mild surroun ding inflammation. The small bowel loops are distended, measuring up to 3.0 cm in diameter. There is moderate colonic fecal retention. The appendix is not clearly identified. A structure posterior/infe rior to the cecum on image #325 represents the right ovary. This is unchanged from prior examinations . Peritoneum: There is no intraperitoneal free air or abdominal ascites. Lymphadenopathy: None. Pelvic viscera: The bladder is distended but otherwise normal in appearance.. The uterus is normal as visualized. A 2.2 cm simple cystic lesion is noted in the left ovary on image #359. Postsurgical cynthia nge is noted in the groin bilaterally. Skeletal structures: The skeletal structures are osteopenic. There is moderate lumbosacral spondylosi s. No lytic or blastic lesions are seen. IMPRESSION: 1. There are significant wall thickening and inflammation involving the cecum and ascending colon. Th is is consistent with a nonspecific colitis. Consider nonemergent follow-up colonoscopy for further e valuation of the underlying right colon. 2. There is distention of the upstream small bowel loops, likely representing ileus versus partial ob struction related to the cecal inflammation. 3. The appendix is not visualized. There is no CT evidence of acute appendicitis. The structure quest ioned on the preliminary interpretation corresponds to the right ovary and is unchanged from prior ex aminations. 4. 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 5. Cardiomegaly. 6. Left-sided nephrolithiasis. 7. There is an indeterminant but low suspicion 2.2 cm simple cystic focus in the left ovary. Consider nonemergent pelvic ultrasound and gynecology follow-up for further assessment. 8. Additional findings as above. ACT 112: Negative or not required by law. Electronically signed by: Arun Amador M.D. 06/20/2022 8:59 AM
[2022-06-20] MEDS ORDERED: MoRPHine SULFATE 4 MG/ML 1 ML CARP\\VIAL IV PRN (11:21)
[2022-06-20] MEDS: SODIUM CHLORIDE 0.9% 1000ML 1,000 ML IV SCH ×2 (11:40→22:33)
[2022-06-20] MEDS: PIPERACILLIN/TAZOBACTAM 3.375 GM CI (over 4 hrs) IV SCH (16:54)
[2022-06-20] MEDS: MoRPHine SULFATE 2 MG/ML CARP IV PRN (17:00)
[2022-06-21] MEDS: PIPERACILLIN/TAZOBACTAM 3.375 GM CI (over 4 hrs) IV SCH ×4 (00:16→22:34)
--- NOTE | 2022-06-21 02:31 | Billing Data ---
Date of Service June 21, 2022 Coding Level of Care Code 36432 INT INP/OBS CARE
[2022-06-21 08:47] LABS: Basophils # (auto) 0.02 K/uL (0-0.2); Basophils % (auto) 0.2 %; Eosinophils # (auto) 0.03 K/uL (0-0.50); Eosinophils % (auto) 0.3 %; Hematocrit (blood only) 27.7 % (34.1-44.9); Hemoglobin 9.2 g/dl (12.0-16.0); Immature Granulocytes # (auto) 0.02 K/uL (0.00-0.02); Immature Granulocytes % (auto) 0.2 %; Lymphocytes # (auto) 0.91 K/uL (1.2-3.4); Lymphocytes % (auto) 9.5 %; Mean Corpuscular Hemoglobin 28.4 pg (25.0-34.0); Mean Corpuscular Hgb Conc 33.2 g/dL (32.0-36.0); Mean Corpuscular Volume 85.5 fL (80.0-100.0); Monocytes # (auto) 0.55 K/uL (0.24-0.82); Monocytes % (auto) 5.8 %; Neutrophils # (auto) 8.03 K/uL (1.4-6.5); Platelet Count 166 K/uL (130-400); RDW Coefficient of Variation 15.2 % (11.5-14.5); RDW Standard Deviation 47.8 fL (36.4-46.3); Red Blood Count 3.24 M/uL (3.93-5.22); White Blood Count 9.56 K/ul (4.8-10.8)
[2022-06-21] MEDS: ACETAMINOPHEN 1,000 MG/100 ML VIAL IV PRN (11:39)
--- NOTE | 2022-06-21 12:21 | Surgery Progress Note ---
Date of Service June 21, 2022 Assessment & Plan (1) Colitis: Plan: Doing much better already. White blood cell count down to 9000 from 17,000. Okay to slowly advance diet. No surgical indications. We will sign off. Please call us if any questions or issues. Dr. Landis covering for the weekend. Admission and Anticipated Discharge Date Admission Date: June 20, 2022 Subjective Patient seen. Feeling better already. No abdominal pain. She would like something to eat or drink. Physical Exam Constitutional: WD/WN, vitals as above no acute distress and not ill appearing Eyes: PERRL, conjunctivae normal, anicteric sclerae EOM intact bilaterally ENMT: external ear and nose normal, oropharynx normal Ears: no hearing impairment Neck: trachea midline, no thyromegaly Respiratory: normal respiratory effort; no respiratory distress and does not use accessory muscles Cardiovascular: Rate/Rhythm: regular rate and regular rhythm Gastrointestinal (Abdomen): Soft. Mild right-sided tenderness. No guarding or peritonitis Skin: no rashes, warm and dry Psychiatric: Orientation: alert, oriented x 3 and cooperative Results & Data ([facility]) Vital Signs (Past 12 Hours) Vital Signs Temp Pulse Pulse Resp BP Pulse Ox O2 Del Method 06/21/22 11:28 38.3 C H 70 20 166/61 H 94 Room Air 06/21/22 10:18 Nasal Cannula 06/21/22 08:18 37.6 C H 89 18 167/64 H 93 Room Air 06/21/22 07:10 70 06/21/22 03:34 36.7 C 76 18 189/68 H 93 Nasal Cannula O2 Flow Rate 06/21/22 11:28 06/21/22 10:18 2 06/21/22 08:18 06/21/22 07:10 06/21/22 03:34 2 PG Care Time/CCT Total # of Minutes Spent Total Time Spent with Patient: Total time spent is greater than 50% in coordination of care (as documented) at patient's floor/unit and/or counseling patient: Coding Level of Care Code 39476 SUB INP/OBS CARE 3/50MIN Diagnoses Colitis K52.9
--- NOTE | 2022-06-21 16:32 | Hospitalist Progress Note ---
Date of Service June 21, 2022 Assessment & Plan (1) Abdominal pain, RLQ: Plan: 72-year-old woman with acute right lower quadrant abdominal pain. Now admitted for concern for possible acute abdomen. Abdominal pain, RLQ acute problem CT abdomen pelvis returned negative for acute appendicitis -Additional repeat CT showed no evidence of acute appendicitis. Imaging did reveal significant wall thickening, inflammation of cecum and ascending colon, consistent with nonspecific colitis. Patient is remains on antibiotics to treat colitis pending hopeful evaluation of stool for infectious etiologies General surgery following no plans and intervention at this time Fever persist and if does so for an additional day. May consider reimaging. Ordering serologies for 06/22/2022 Hypertension chronic stable -Elevated pressure on admission. Initially made n.p.o. rule out for sips for medicines following discussion with surgery PA -Patient on hydralazine, Coreg, amlodipine * Continue home meds Coronary artery diseasechronic stable -History of NSTEMI with stent placement in 2019 at [facility]. -Continuing n Coreg, amlodipine, atorvastatin, aspirin, clopidogrel * Continue home meds Atrial fibrillation chronic stable -Managed on aspirin, Plavix, Coreg for rate control * Continue home med regimen Diabetes chronic stable however will change to insulin as p.o. status variable -Patient takes metformin 1000 mg twice daily, glimepiride 8 mg p.o. daily -Held on admission * SQ SSI insulin per protocol Code: Full code Dispo: Med-Surg telemetry FEN/GI: Plowing oral intake DVT Prophylaxis: Lovenox 40 mg q24h PT/OT: Consults: None Admission and Anticipated Discharge Date Admission Date: June 20, 2022 Subjective pt states she feels much improved, still with low grade temp, minor pain but not had bowel movement to test Physical Exam Physical Exam: She is awake alert appropriate Abdomen exam has soft normal bowel sounds threading machine tender in the right side no rebound no guarding Results & Data Results & Data ([facility]) Vital Signs (Past 12 Hours) Vital Signs Temp Pulse Pulse Resp BP Pulse Ox O2 Del Method 06/21/22 15:49 54 L 06/21/22 11:28 100.9 F H 70 20 166/61 H 94 Room Air 06/21/22 10:18 Nasal Cannula 06/21/22 08:18 99.7 F H 89 18 167/64 H 93 Room Air 06/21/22 07:10 70 O2 Flow Rate 06/21/22 15:49 06/21/22 11:28 06/21/22 10:18 2 06/21/22 08:18 06/21/22 07:10 Diagnostic Findings Reviewed CBC with leukocytosis not present improved from admission CBC chemistry and liver panels ordered for 06/22 PG Care Time/CCT Total # of Minutes Spent Total Time Spent with Patient: Total time spent is greater than 50% in coordination of care (as documented) at patient's floor/unit and/or counseling patient: Coding Level of Care Code 42930 SUB INP/OBS CARE 2/35MIN Diagnoses Abdominal pain, RLQ R10.31
[2022-06-21] MEDS ORDERED: FUROSEMIDE INJ 20 MG/2 ML VIAL IV ONE (21:57)
[2022-06-21] MEDS ORDERED: ALBUT/IPRATROP 3MG/0.5MG NEB 3 ML VIAL NEB STA (21:57)
[2022-06-21] MEDS: MoRPHine SULFATE 2 MG/ML CARP IV PRN (21:59)
[2022-06-21] MEDS ORDERED: ALBUT/IPRATROP 3MG/0.5MG NEB 3 ML VIAL ONE (22:01)
[2022-06-21] MEDS ORDERED: FUROSEMIDE 40 MG/4 ML VIAL IV ONE (22:34)
[2022-06-21] MEDS ORDERED: carvediloL 12.5 MG TAB PO ONE (22:36)
[2022-06-21 22:38] LABS: Adenovirus F 40/41 PCR Not Detected (NotDetected); Astrovirus PCR Not Detected (NotDetected); Campylobacter PCR Not Detected (NotDetected); Cryptosporidium PCR Not Detected (NotDetected); Cyclospora cayetanensis PCR Not Detected (NotDetected); Entamoeba histolytica PCR Not Detected (NotDetected); Enteroaggregative E.coli(EAEC) Not Detected (NotDetected); Enteropathogenic E.coli (EPEC) Not Detected (NotDetected); Enterotoxigenic E.coli (ETEC) Not Detected (NotDetected); Giardia lamblia PCR Not Detected (NotDetected); Norovirus GI/GII PCR Not Detected (NotDetected); Plesiomonas shigelloides PCR Not Detected (NotDetected); Rotavirus A PCR Not Detected (NotDetected); Salmonella PCR Not Detected (NotDetected); Sapovirus PCR Not Detected (NotDetected); Shiga-like Toxin E.coli (STEC) Not Detected (NotDetected); Shigella/Enteroinvasive E.coli Not Detected (NotDetected); Vibrio cholerae PCR Not Detected (NotDetected); Vibrio species PCR Not Detected (NotDetected); Yersinia enterocolitica PCR Not Detected (NotDetected)
--- NOTE | 2022-06-21 22:48 | XRay Report ---
XR chest 1V portable HISTORY: 81 years-old Female dyspnea acute shortness of breath COMPARISON: CT abdomen pelvis 06/20/2022, chest radiograph 03/05/2023 TECHNIQUE: AP view of the chest FINDINGS: Cardiac silhouette is enlarged. Aortic valvular endograft. Atherosclerosis of the aorta. Interval dev elopment of interstitial coarsening with pulmonary vascular congestion. Mild bibasilar densities. Deg enerative changes of the shoulders and spine. IMPRESSION: Cardiomegaly with interval development of mild pulmonary edema. ACT 112: Negative or not required by law. The above report was generated using voice recognition software. It may contain grammatical, syntax o r spelling errors. Electronically signed by: Abraham Solis M.D. 06/21/2022 10:46 PM
[2022-06-21 22:50] LABS: Base Excess VBG -1.8 mEq/L; HCO3 VBG 24 mmol/L; Oxygen Saturation VBG 78.6 %; PCO2 VBG 42 mmHg (38-50); PO2 VBG 45 mmHg; pH VBG 7.36 (7.36-7.41)
[2022-06-21 22:52] LABS: Hematocrit (blood only) 31.5 % (34.1-44.9); Hemoglobin 10.6 g/dl (12.0-16.0)
--- NOTE | 2022-06-21 22:57 | Communication Note ---
Date of Service: June 21, 2022 I was called to evaluate the patient after nursing reports of elevated BP and progressively increasing oxygen requirement on nasal cannula from 2L to mahnaz ntually 5L. On my evaluation, the pt denied any chest pain but did endorse worsening dyspnea. On lung exam, I did appreciate coarse breath sounds diffusely with bibasilar crackles. I subsequently ordered a duoneb breathing treatment and Lasix 20 mg IV. The patient was eventually transitioned to Oxymask 15L and was saturating in the high 80s. I did order a CXR which, per my read, demonstrates b/l pulmonary vascular congestion, cardiomegaly with pulmonary edema. I ordered another dose of Lasix, 40 mg IV as I suspect her IV fluids administered for colitis earlier led to hypervolemia. I was alerted about the patient having a significant bowel movement with dark tarry stool. I ordered H+H, FOBT and a VBG for her aforementioned increasing oxygen requirement. Her Hgb was 10.6, increased from 9.2 earlier today. The VBG was unremarkable. FOBT still pending at this time. I did give her a dose of carvedilol 12.5 mg for her increasing SBP to > 200. I did not reorder her home medications and have left this to the day team's judgment.
[2022-06-22] MEDS: ACETAMINOPHEN 1,000 MG/100 ML VIAL IV PRN (04:37)
[2022-06-22] MEDS: PIPERACILLIN/TAZOBACTAM 3.375 GM CI (over 4 hrs) IV SCH ×3 (06:16→22:17)
--- NOTE | 2022-06-22 07:43 | Hospitalist Progress Note ---
Date of Service June 22, 2022 Assessment & Plan (1) Abdominal pain, RLQ: Plan: 72-year-old woman with acute right lower quadrant abdominal pain. Now admitted for concern for possible acute abdomen. Abdominal pain, RLQ acute problem CT abdomen pelvis returned negative for acute appendicitis -Additional repeat CT showed no evidence of acute appendicitis. Imaging did reveal significant wall thickening, inflammation of cecum and ascending colon, consistent with nonspecific colitis. Patient is remains on antibiotics to treat colitis pending hopeful evaluation of stool for infectious etiologies General surgery following no plans and intervention at this time Stool bio fire is negative for infectious etiology consider if this would be ischemic colitis given cardiovascular history Acute on chronic diastolic heart failure , unstable requireing additional treatment Patient was given hydration due to her colitis. She has a history of TAVR 02/21 Patient with IV diuresis restarting home daily oral Lasix therapy hypokalemia from diuresis ordering potassium and magnesium supplementation Hypertension chronic unstable -Elevated pressure on admission. home meds stopped now bp up but home meds will be restarted gradually to avoid hypotension in face of active diuresis Coronary artery diseasechronic stable -History of NSTEMI with stent placement in 2019 at [facility]. follows locally with D Fragin -Continuing n Coreg, amlodipine, atorvastatin, aspirin, clopidogrel * Atrial fibrillation chronic stable -Managed on aspirin, Plavix, Coreg for rate control * Continue restarting aspirin Plavix and Coreg Diabetes chronic stable however will change to insulin as p.o. status variable -Patient takes metformin 1000 mg twice daily, glimepiride 8 mg p.o. daily -Held on admission * SQ SSI insulin per protocol Code: Full code DVT Prophylaxis: Lovenox 40 mg q24h PT/OT: Admission and Anticipated Discharge Date Admission Date: June 20, 2022 Subjective pt had a rough night with some exacerbation of HFPef, had acute respiratory failure with hypoxia requiring active diuresis Physical Exam Physical Exam: Pt has been rescued from her respiratory distress by iv diureis jvd still present 3 cm lungs with rales at bases cardiac regular with IVELISSE Results & Data Results & Data ([facility]) Vital Signs (Past 12 Hours) Vital Signs Temp Pulse Pulse Resp BP BP Pulse Ox 06/22/22 07:34 58 L 06/22/22 07:34 06/22/22 06:16 99.3 F 60 18 146/51 H 95 06/22/22 04:00 99.3 F 18 105/52 L 98 06/22/22 04:32 100.8 F H 63 18 175/62 H 98 06/22/22 00:45 65 91 06/21/22 22:04 86 06/21/22 23:00 100.0 F H 81 22 205/66 H 90 06/21/22 22:09 84 28 H 82 L 06/21/22 23:10 76 20 180/60 H 93 06/21/22 22:50 06/21/22 22:49 167/52 H 06/21/22 22:29 98.1 F 86 22 208/68 H 87 L 06/21/22 21:57 83 L 06/21/22 20:01 99.4 F 66 20 177/62 H 92 Pulse Ox O2 Del Method O2 Del Method O2 Flow Rate O2 Flow Rate 06/22/22 07:34 06/22/22 07:34 10 L Oxymask 97 06/22/22 06:16 Oxymask 10 06/22/22 04:00 Room Air 06/22/22 04:32 Oxymask 15 06/22/22 00:45 Oxymask 15 06/21/22 22:04 06/21/22 23:00 Oxymask 15 06/21/22 22:09 Nasal Cannula 6 06/21/22 23:10 Oxymask 15 06/21/22 22:50 Oxymask 15 06/21/22 22:49 06/21/22 22:29 Oxymask 15 06/21/22 21:57 Nasal Cannula 5 06/21/22 20:01 Nasal Cannula 3 Laboratory Results Reviewed CBC with reduction of leukocytosis stable hemoglobin Reviewed PRP with hypokalemia augmented by oral potassium Ordered magnesium check on the PG Care Time/CCT Total # of Minutes Spent Total Time Spent with Patient: Total time spent is greater than 50% in coordination of care (as documented) at patient's floor/unit and/or counseling patient: Coding Level of Care Code 98508 SUB INP/OBS CARE 3/50MIN Diagnoses Abdominal pain, RLQ R10.31
[2022-06-22 08:05] LABS: Hematocrit (blood only) 28.8 % (34.1-44.9); Hemoglobin 9.7 g/dl (12.0-16.0); Mean Corpuscular Hgb Conc 33.7 g/dL (32.0-36.0); Mean Corpuscular Volume 86.2 fL (80.0-100.0); Mean Platelet Volume 12.9 fL (9.4-12.3); Platelet Count 164 K/uL (130-400); RDW Coefficient of Variation 14.4 % (11.5-14.5); RDW Standard Deviation 44.8 fL (36.4-46.3); Red Blood Count 3.34 M/uL (3.93-5.22); White Blood Count 9.23 K/ul (4.8-10.8)
[2022-06-22 09:09] LABS: Albumin Level 3.4 gm/dl (3.4-5.0); Bilirubin Direct 0.2 mg/dl (0-0.2); Bilirubin,Total 0.8 mg/dl (0.2-1.0); Calcium 8.4 mg/dl (8.5-10.1); Potassium 3.2 mmol/L (3.5-5.1)
[2022-06-22 09:15] LABS: BUN Creatinine Ratio 14.8 (10-20); Creatinine Clr Calc Pharmacy 37.1 ml/min; Est GFR (African American) 56.5 ml/min; Est GFR (Non-African American) 48.8 ml/min; Total Protein 5.8 gm/dl (6.0-8.3)
[2022-06-22] MEDS ORDERED: CLOPIDOGREL BISULFATE 75 MG TAB PO ONE (11:49)
[2022-06-22] MEDS ORDERED: FUROSEMIDE 20 MG TAB PO ONE (11:50)
[2022-06-22] MEDS ORDERED: ASPIRIN 81 MG ECTAB PO STA (11:58)
[2022-06-22] MEDS: AMIODARONE 200 MG TAB PO SCH (12:54)
[2022-06-22] MEDS ORDERED: POTASSIUM CHLORIDE CRTAB 20 MEQ TABCR PO STA (15:07)
[2022-06-22] MEDS ORDERED: hydrALAZINE HCL 20 MG/ML VIAL IV PRN (15:30)
[2022-06-22] MEDS: hydrALAZINE TAB 50 MG TAB PO SCH ×2 (16:30→19:47)
[2022-06-22] MEDS: POTASSIUM CHLORIDE CRTAB 20 MEQ TABCR PO SCH (19:48)
[2022-06-22] MEDS: carvediloL 6.25 MG TAB PO SCH (19:48)
[2022-06-22] MEDS: ASPIRIN 81 MG ECTAB PO SCH (19:49)
[2022-06-22] MEDS ORDERED: amLODIPine BESYLATE 5 MG TAB PO SCH (21:00)
[2022-06-23] MEDS: PIPERACILLIN/TAZOBACTAM 3.375 GM CI (over 4 hrs) IV SCH ×3 (06:26→23:14)
[2022-06-23 07:35] LABS: Calcium 8.4 mg/dl (8.5-10.1); Magnesium 1.6 mg/dl (1.7-2.4); Potassium 3.7 mmol/L (3.5-5.1)
[2022-06-23 07:41] LABS: BUN Creatinine Ratio 15.1 (10-20); Creatinine Clr Calc Pharmacy 43.3 ml/min; Est GFR (African American) 67.7 ml/min; Est GFR (Non-African American) 58.5 ml/min
[2022-06-23] MEDS ORDERED: MAGNESIUM SULFATE / D5W 1 GM/100 ML BAG IV ONE (08:01)
--- NOTE | 2022-06-23 08:01 | Hospitalist Progress Note ---
Date of Service June 23, 2022 Assessment & Plan (1) Abdominal pain, RLQ: Plan: 72-year-old woman with acute right lower quadrant abdominal pain. Now admitted for concern for possible acute abdomen. Abdominal pain, RLQ acute problem-ischemic colitis CT abdomen pelvis returned negative for acute appendicitis -Additional repeat CT showed no evidence of acute appendicitis. Imaging did reveal significant wall thickening, inflammation of cecum and ascending colon, consistent with nonspecific colitis. Patient is remains on antibiotics to treat colitis pending hopeful evaluation of stool for infectious etiologies General surgery following no plans and intervention at this time Stool bio fire is negative for infectious etiology consider if this would be ischemic colitis given cardiovascular history Acute on chronic diastolic heart failure , unstable requireing additional treatment Patient was given hydration due to her colitis. She has a history of TAVR 02/21 Patient with IV diuresis restarting home daily oral Lasix therapy Potassium is replete continue magnesium supplementation Hypertension chronic unstable additional adjustment of medications on 06/23/2022 -Elevated pressure on admission. home meds stopped meds uptitrated 06/23/22 Coronary artery diseasechronic stable -History of NSTEMI with stent placement in [address] [facility]. follows locally with Hugo Quinteroin -Continuing n Coreg, amlodipine, atorvastatin, aspirin, clopidogrel * Atrial fibrillation chronic stable -Managed on aspirin, Plavix, Coreg for rate control * Continue restarting aspirin Plavix and Coreg Diabetes chronic stable however change to insulin -Patient takes metformin 1000 mg twice daily, glimepiride 8 mg p.o. daily -Held on admission * SQ SSI insulin per protocol Code: Full code DVT Prophylaxis: Lovenox 40 mg q24h PT/OT: spears removed, encouraged ambulation Admission and Anticipated Discharge Date Admission Date: June 20, 2022 Subjective Patient is awake and alert and is interested in getting up and moving around. She has no shortness of breath or other discomfort. She says she feels almost want to go home but would like to get more strength before she does so Physical Exam Physical Exam: She has resolution of her JVD she still has rales with her bases. Card exam shows a systolic murmur which is slight at the right upper sternal border extremities without edema Results & Data Results & Data ([facility]) Vital Signs (Past 12 Hours) Vital Signs Temp Pulse Pulse Resp BP BP Pulse Ox 06/23/22 06:42 98.2 F 99 H 20 187/62 H 97 06/23/22 02:22 98.4 F 67 20 188/63 H 94 06/22/22 22:05 62 06/22/22 22:22 98.9 F 63 18 162/50 H 95 06/22/22 20:53 O2 Del Method O2 Flow Rate 06/23/22 06:42 Nasal Cannula 3 06/23/22 02:22 Nasal Cannula 3 06/22/22 22:05 06/22/22 22:22 Nasal Cannula 3 06/22/22 20:53 Nasal Cannula 3 Diagnostic Findings Chemistry reviewed in the face of diuresis stable creatinine Magnesium reviewed and is low PG Care Time/CCT Total # of Minutes Spent Total Time Spent with Patient: Total time spent is greater than 50% in coordination of care (as documented) at patient's floor/unit and/or counseling patient: Coding Level of Care Code 66947 SUB INP/OBS CARE 2/35MIN Diagnoses Abdominal pain, RLQ R10.31
[2022-06-23] MEDS: CLOPIDOGREL BISULFATE 75 MG TAB PO SCH (09:23)
[2022-06-23] MEDS: AMIODARONE 200 MG TAB PO SCH (09:24)
[2022-06-23] MEDS: FUROSEMIDE 40 MG TAB PO SCH (09:24)
[2022-06-23] MEDS: carvediloL 6.25 MG TAB PO SCH ×2 (09:25→20:03)
[2022-06-23] MEDS: POTASSIUM CHLORIDE CRTAB 20 MEQ TABCR PO SCH ×2 (09:25→20:04)
[2022-06-23] MEDS: hydrALAZINE HCL 25 MG TAB PO SCH ×3 (09:26→20:04)
[2022-06-23] MEDS: amLODIPine BESYLATE 5 MG TAB PO SCH (20:02)
[2022-06-23] MEDS: ASPIRIN 81 MG ECTAB PO SCH (20:03)
[2022-06-24] MEDS: PIPERACILLIN/TAZOBACTAM 3.375 GM CI (over 4 hrs) IV SCH ×3 (06:28→23:50)
[2022-06-24] MEDS: CLOPIDOGREL BISULFATE 75 MG TAB PO SCH (08:21)
[2022-06-24] MEDS: carvediloL 6.25 MG TAB PO SCH ×2 (08:21→20:14)
[2022-06-24] MEDS: hydrALAZINE HCL 25 MG TAB PO SCH (08:21)
[2022-06-24] MEDS: AMIODARONE 200 MG TAB PO SCH (08:21)
[2022-06-24] MEDS: FUROSEMIDE 40 MG TAB PO SCH (08:21)
[2022-06-24 09:26] LABS: BUN Creatinine Ratio 17.9 (10-20); Calcium 8.8 mg/dl (8.5-10.1); Creatinine Clr Calc Pharmacy 37.9 ml/min; Est GFR (African American) 57.8 ml/min; Est GFR (Non-African American) 49.9 ml/min; Magnesium 1.8 mg/dl (1.7-2.4); Potassium 3.7 mmol/L (3.5-5.1)
[2022-06-24] MEDS: hydrALAZINE TAB 50 MG TAB PO SCH ×3 (10:39→20:14)
--- NOTE | 2022-06-24 15:29 | Hospitalist Progress Note ---
Date of Service June 24, 2022 Assessment & Plan (1) Abdominal pain, RLQ: Plan: 72-year-old woman with acute right lower quadrant abdominal pain. Now admitted for concern for possible acute abdomen. Abdominal pain, RLQ acute problem-ischemic colitis CT abdomen pelvis returned negative for acute appendicitis -Additional repeat CT showed no evidence of acute appendicitis. Imaging did reveal significant wall thickening, inflammation of cecum and ascending colon, consistent with nonspecific colitis. Patient is remains on antibiotics to treat colitis pending hopeful evaluation of stool for infectious etiologies General surgery following no plans and intervention at this time Stool bio fire is negative for infectious etiology consider if this would be ischemic colitis given cardiovascular history Acute on chronic diastolic heart failure , unstable requireing additional treatment Patient was given hydration due to her colitis. She has a history of TAVR 02/21 Patient with IV diuresis restarting home daily oral Lasix therapy Potassium is replete continue magnesium supplementation Hypertension chronic unstable additional adjustment of medications on 06/23/2022 -Elevated pressure on admission. home meds stopped meds uptitrated 06/23/22 Coronary artery diseasechronic stable -History of NSTEMI with stent placement in 2019 at [facility]. follows locally with Hugo Mcpherson -Continuing n Coreg, amlodipine, atorvastatin, aspirin, clopidogrel * Atrial fibrillation chronic stable -Managed on aspirin, Plavix, Coreg for rate control * Continue restarting aspirin Plavix and Coreg Diabetes chronic stable however change to insulin -Patient takes metformin 1000 mg twice daily, glimepiride 8 mg p.o. daily -Held on admission * SQ SSI insulin per protocol Code: Full code DVT Prophylaxis: Lovenox 40 mg q24h PT/OT: spears removed, encouraged ambulation Admission and Anticipated Discharge Date Admission Date: June 20, 2022 Subjective pt is doing well, walking in halls bp is still up and uptitrated medications 06/24/22 Physical Exam Physical Exam: Pt is awake and alert cardiac is regular, susan lungs are diminished at the bases otherwise clear ext without edema jvd resolved Results & Data Results & Data ([facility]) Vital Signs (Past 12 Hours) Vital Signs Temp Pulse Pulse Resp BP Pulse Ox O2 Del Method 06/24/22 15:10 98.6 F 56 L 18 158/56 H 92 Room Air 06/24/22 11:18 98.2 F 70 18 154/66 H 91 Room Air 06/24/22 10:33 97.3 F L 59 L 18 169/72 H 93 Room Air 06/24/22 07:44 64 06/24/22 07:07 98.6 F 68 16 169/58 H 94 Room Air 06/24/22 03:49 98.2 F 58 L 20 174/76 H 92 Room Air Diagnostic Findings Chemistry panel reviewed and normal no signs of LEV with diuresis PG Care Time/CCT Total # of Minutes Spent Total Time Spent with Patient: Total time spent is greater than 50% in coordination of care (as documented) at patient's floor/unit and/or counseling patient: Coding Level of Care Code 53668 SUB INP/OBS CARE 2/35MIN Diagnoses Abdominal pain, RLQ R10.31
[2022-06-24] MEDS: amLODIPine BESYLATE 5 MG TAB PO SCH (20:14)
[2022-06-24] MEDS: ASPIRIN 81 MG ECTAB PO SCH (20:14)
[2022-06-25] MEDS ORDERED: GLUCAGON FOR INJ 1 MG VIAL SQ PRN (02:54)
[2022-06-25] MEDS ORDERED: GLUCOSE 10 TAB/TUBE PO PRN (02:54)
[2022-06-25] MEDS ORDERED: DEXTROSE 50% 50 ML SYRINGE IV PRN (02:54)
[2022-06-25] MEDS ORDERED: CARBOHYDRATES FOR HYPOGLYCEMIA PO PRN (02:54)
[2022-06-25] MEDS ORDERED: GLUCOSE 40% GEL 15 GM TUBE PO PRN (02:54)
[2022-06-25] MEDS: PIPERACILLIN/TAZOBACTAM 3.375 GM CI (over 4 hrs) IV SCH (06:17)
[2022-06-25 07:00] LABS: Calcium 8.8 mg/dl (8.5-10.1); Potassium 3.6 mmol/L (3.5-5.1)
[2022-06-25 07:06] LABS: BUN Creatinine Ratio 22.2 (10-20); Creatinine Clr Calc Pharmacy 37.1 ml/min; Est GFR (African American) 56.5 ml/min; Est GFR (Non-African American) 48.8 ml/min
[2022-06-25] MEDS: hydrALAZINE TAB 50 MG TAB PO SCH ×2 (07:41→11:39)
[2022-06-25] MEDS: AMIODARONE 200 MG TAB PO SCH (07:41)
[2022-06-25] MEDS: CLOPIDOGREL BISULFATE 75 MG TAB PO SCH (07:41)
[2022-06-25] MEDS: carvediloL 6.25 MG TAB PO SCH (07:41)
[2022-06-25] MEDS: FUROSEMIDE 40 MG TAB PO SCH (07:42)
[2022-06-25] MEDS: INSULIN ASPART PER UNIT SC SCH ×2 (08:06→12:36)
--- NOTE | 2022-06-25 13:37 | Discharge Summary ---
Date of Service June 25, 2022 Admission HPI Per Admitting Provider Patient is a 81-year-old woman who presented to the emergency room with severe abdominal pain that began after lunch yesterday. Pain is localized to the right lower quadrant. She denies nausea, vomiting, shortness of breath, chest pain, diarrhea, constipation, hematuria and melena. She had surgery in her right lower abdomen for removal of a right cyst some 47 years ago. Otherwise, she recently had a femoral-femoral bypass graft placed by Dr. Cash a few years ago. In the ED, vitals were notable for elevated blood pressure in the 160s to 180s systolic over 80s diastolic. She was afebrile, and respirating on room air. UA was negative for nitrites, LE, but had showed some proteinuria. CT abdomen pelvis was negative for acute findings on stat rad report she received 1 dose of IV fentanyl 50 mcg, and IV normal saline bolus x2 L. Surgery was consulted, who recommended repeat CT abdomen pelvis with concern for appendicitis. Principal Diagnosis Abdominal pain likely ischemic colitis Acute on chronic diastolic heart failure exacerbation Ulceration of right great toe present on admission stage II3 Discharge Exam Patient is awake and vibrant seems to return to her baseline she has an open area of her great great toe that she is said occurred due to friction with her shoe this does not appear to be actively infected Her card exam is regular with a systolic murmur Lungs are clear without wheezes or crackles she has no JVD Discharge Data Allergies Allergy/AdvReac Type Severity Reaction Status Date / Time fenofibrate AdvReac Intermediate INCREASED Verified 06/20/22 00:24 URINATION metoprolol AdvReac Intermediate VOMIT,DIARR Verified 06/20/22 00:24 HEA valsartan AdvReac Intermediate Weakness Verified 06/20/22 00:24 verapamil AdvReac Intermediate INCREASED Verified 06/20/22 00:24 URINATION Consultations 06/20/22 02:47 ED Decision to Admit Stat Ordered Studies 06/19/22 22:49 CT Abd and Pelvis [CT abd pelvis IV con only] Urgent 06/20/22 02:36 CT Abd and Pelvis [CT abd pelvis oral and IV con] Stat Hospital Course (1) Abdominal pain, RLQ: 72-year-old woman with acute right lower quadrant abdominal pain. Now admitted for concern for possible acute abdomen. Abdominal pain, RLQ acute problem-ischemic colitis CT abdomen pelvis returned negative for acute appendicitis -Additional repeat CT showed no evidence of acute appendicitis. Imaging did reveal significant wall thickening, inflammation of cecum and ascending colon, consistent with nonspecific colitis. Complete 1 week course of antibiotics discharged on Augmentin Stool bio fire is negative for infectious etiology consider if this would be ischemic colitis given cardiovascular history Acute on chronic diastolic heart failure , unstable requireing additional treatment Patient was given hydration due to her colitis. 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 home meds stopped meds uptitrated 06/23/22 blood pressure now stable Coronary artery diseasechronic stable -History of NSTEMI with stent placement in 2019 at [facility]. follows locally with Dr Mcpherson -Continuing n Coreg, amlodipine, atorvastatin, aspirin, clopidogrel * Atrial fibrillation chronic stable -Managed on aspirin, Plavix, Coreg for rate control * Continue restarting aspirin Plavix and Coreg Diabetes chronic stable however change to insulin -Patient takes metformin 1000 mg twice daily, glimepiride 8 mg p.o. daily -Held on admission * SQ SSI insulin per protocol Code: Full code Right great toe ulceration present on admission this is inspected and found not to be infected. Recommended attention paid at follow-up clinic due to her vascular history Total Time Total Time Spent Total Time Spent (In Minutes): It required greater than 30 minutes to prepare this patient for discharge Discharge Plan Discharge Items Patient Disposition: Home - Self-Care Reason For Visit: RLQ ABDOMINAL PAIN Discharge Diagnosis: abdominal pain most likely ischemic colitis diastolic heart failure right great toe ulcer Activity: Per Instructions section Activity Comment: gently increase activity level Non-emergency contact: Primary Care Provider Call non-emergency contact if: your symptoms worsen Follow-up/Referrals: Tiara Ochoa PA-C [Primary Care Provider] - Diet: Carb Consistent or DM2 and Low Sodium (2gm) Addtl Attending Provider Instructions: Please finish your antibiotics as you recover from your colitis With regard to the open area on your right great toe, please elevate your leg is much as possible when sitting, please wash the area daily with soap and water and apply an antibiotic ointment. Please be sure your primary care physician evaluates your toe at the next appointment. Pending Studies at Discharge: No Stand-Alone Forms: My [facility], Smoking Cessation Medications and DC Order Prescriptions: New amoxicillin-pot clavulanate 875-125 mg tablet 1 tab PO BID Qty: 5 0RF Continued aspirin 81 mg Tablet,Delayed Release (Dr/Ec) 81 mg PO HS metformin 500 mg tablet extended release 24 hr 1,000 mg PO BIDM coenzyme Q10 [CoQ-10] 100 mg Capsule 100 mg PO QAM [place] 3-6-9 1,200 mg Capsule 1 cap PO QDD ferrous sulfate 325 mg (65 mg iron) tablet 325 mg PO BID Qty: 60 0RF amiodarone 200 mg tablet 200 mg PO QAM hydralazine 100 mg tablet 100 mg PO TID pantoprazole 40 mg tablet,delayed release (DR/EC) 40 mg PO BID glimepiride 4 mg tablet 8 mg PO DAILY furosemide 40 mg Tablet 40 mg PO QAM Qty: 30 0RF carvedilol 6.25 mg Tablet 6.25 mg PO BID Qty: 60 0RF magnesium oxide 400 mg (241.3 mg magnesium) tablet 400 mg PO BID Qty: 60 0RF Rx Instructions: OTC clopidogrel 75 mg Tablet 75 mg PO QAM Qty: 30 0RF multivitamin Tablet 1 tab PO QAM atorvastatin 40 mg Tablet 40 mg PO QAM amlodipine 10 mg tablet See Rx Instructions .ROUTE .COMPLEX Rx Instructions: 10 mg; TAKES 10 MG QAM, THEN 5 MG QPM. Discharge Orders: Discharge Order- CHF (Routine); Ordered 06/25/22 Ordered By: Gurwinder Casiano Admission Data Admit Date/Time: 06/20/22 02:45 Attending Provider: Gurwinder Casiano Admit Provider: Malik Barnard Primary Care Provider: Tiara Ochoa Other Providers: Jeremie Dolan Coding Level of Care Code HOSP INP/OBS DISCH >30 MIN Diagnoses Abdominal pain, RLQ R10.31
== END 2022-06-25 15:03 | disposition home or self-care (01) | DRG 393 ==
LOC: ED 21:08 → EDINP 06-20 02:45 → SUATTDRO 06-20 02:45 → 2N 06-20 06:26

== ENCOUNTER 2022-07-20 09:34 | Observation (INO) ==
--- NOTE | 2022-07-20 10:23 | Emergency Department Note ---
Impression & Plan Pulmonary edema, Hypertension, Acute urinary retention, Elevated troponin I level ED Provider Note NAME: YIN BRO AGE: 82 SEX: F : 1940 ARRIVES VIA: Walk-In INFORMANT: Patient, the patient's daughter ED PROVIDER(S): Derrek Brown DO CHIEF COMPLAINT: Off-balance HPI: The patient is an 82-year-old female who presented to the emergency department for an evaluation of elevated blood pressure the patient states that last night she felt as though she was off balance and felt like her blood pressure was high. She went to check her blood pressure and on multiple occasions she noted it was elevated. She does have a history of hypertension but also history of CVA and NSTEMI. The patient denies having any headache. She is had no falls. Her daughter noticed that her legs are swollen. She denies having any difficulty with speech. She is been taking her blood pressure medications as well as her other medications as prescribed. The patient also describes feeling cold. ROS: See above HPI for pertinent positives & negatives. A total of 10 systems reviewed and were otherwise negative. PAST MEDICAL HISTORY: See Below PAST SURGICAL HISTORY: See Below FAMILY HISTORY: See Below SOCIAL HISTORY: See Below HOME MEDICATIONS: See Below ALLERGIES: See Below VITALS: See Below PHYSICAL EXAMINATION: GENERAL: Patient is awake alert in no acute distress patient is resting comfortably and showing no signs of anxiety EYES: The conjunctivae are clear. The pupils are round and reactive. EARS, NOSE, MOUTH AND THROAT: The nose is without any evidence of any deformity. NECK: The neck is nontender and supple. RESPIRATORY: Normal respiratory effort is noted there is no evidence of wheezing rhonchi or rales CARDIOVASCULAR: Regular rate and rhythm noted there no murmurs rubs or gallops normal S1 normal S2. GASTROINTESTINAL: The abdomen is soft. Abdomen is nontender. MUSCULOSKELETAL/EXTREMITIES: There is no evidence of gross deformity full range of motion is noted in the hips and shoulders. SKIN: Trace pedal edema was noted bilaterally. NEUROLOGIC: Patient is awake alert and oriented x3. Patient is able to hold each leg off the bed for greater than 5 seconds. Speech was at baseline acc ording to the patient's daughter MEDICAL DECISION MAKING: The patient is an 82-year-old female who presented to the emergency department with her daughter for an evaluation of elevated blood pressure. The patient does have a history of hypertension and she has been compliant with her outpatient medications. She did not appear to be uncomfortable but was having difficulty urinating. Ultimately she was found to have urinary retention had a Castañeda catheter placed. This seems to have improved her blood pressure issues. She was also found of some degree of pulmonary edema with edema in her legs as well as on chest x-ray. Troponin was elevated but appears to be chronically elevated. I discussed patient's laboratory and radiographic studies with her and her daughter. She was treated with IV Lasix in the emergency department. Given her findings her feeling member was not comfortable with outpatient follow-up. For this reason I discussed her condition with the on-call [facility]. Triage Nursing notes reviewed. Prior medical records reviewed Vital Signs: reviewed and remarkable for bradycardia. Differential diagnosis: Benign hypertension, hypertensive emergency, cardiovascular pathology, toxicologic, pheochromocytoma, electrolyte abnormality, renal disease, endorgan damage, as well as other pathologies. ER treatment provided: See below Diagnostics interpreted by me: ECG: EKG was obtained in the emergency department. My interpretation is normal sinus rhythm at 60 bpm. There is no ectopy. Nonspecific ST segment abnormalities were noted. This was compared to a tracing from March 05, 2022. No changes were noted. Cardiac Monitoring: An order was placed for continuous cardiac monitoring. The monitor shows a rate of 54 bpm with sinus bradycardia. Laboratory studies: As stated above and show below. Imaging studies: See below. Radiographic imaging was reviewed by myself Consultation(s): I discussed this case with Dr. Mojica who is on-call for [facility] group. Past Med/Surg History Medical History Acute non-ST elevation myocardial infarction (NSTEMI) Acute on chronic heart failure with preserved ejection fraction (HFpEF) Anemia Bradycardia CAD (coronary artery disease) CVA (cerebral vascular accident) (~2018) no deficits Elevated troponin Encounter for pre-operative examination Hyperlipemia Hypertension Hypoxia Myocardial infarct, old follows with Dr. Mcpherson Occlusion of right iliac artery PAD (peripheral artery disease) Pneumonia hx S/P angiogram of extremity (02/02/21) Type 2 diabetes mellitus with diabetic neuropathy, unspecified NIDDM Surgical History H/O removal of cyst right abdominal area History of bunionectomy of right great toe History of cardiac cath (~2019) History of heart artery stent (~2019) x1. at [facility] [place]. Status post ORIF of fracture of ankle Family History Other No family history of adverse response to anesthesia Social History Smoking Status: Former smoker Tobacco Type: Cigarettes Second Hand Exposure: No; Hx Alcohol Use: Yes Alcohol type: beer, wine and hard liquor Hx Substance Use: No Preferred Language: Thai Communication Ability: Effective Operations Program Manager Required: No Beliefs That Will Affect Care: None marital status: / Current Living Situation: Alone Current Living Situation Comment: [employer] style home current occupational status: retired How many Children do You have: 1 Feels Safe at Home: Yes Assistive Devices: Glasses and Walker Allergies Allergies Allergy/AdvReac Type Severity Reaction Status Date / Time fenofibrate AdvReac Intermediate INCREASED Verified 06/20/22 00:24 URINATION metoprolol AdvReac Intermediate VOMIT,DIARR Verified 06/20/22 00:24 HEA valsartan AdvReac Intermediate Weakness Verified 06/20/22 00:24 verapamil AdvReac Intermediate INCREASED Verified 06/20/22 00:24 URINATION Home Meds Home Medications Medication Instructions Recorded Confirmed aspirin 81 mg tablet,delayed 81 mg PO HS 03/04/20 07/20/22 release metformin 500 mg tablet,extended 1,000 mg PO BIDM 03/04/20 07/20/22 release 24 hr coenzyme Q10 100 mg capsule 100 mg PO QAM 12/01/20 07/20/22 (CoQ-10) fish, borage, flaxseed oils-omega 1 cap PO QDD 12/01/20 07/20/22 3,6,9 comb no.1 1,200 mg capsule ([place] 3-6-9) atorvastatin 40 mg tablet 40 mg PO QAM 02/26/21 07/20/22 multivitamin 1 tab PO QAM 02/26/21 07/20/22 amiodarone 200 mg tablet 200 mg PO QAM 07/01/21 07/20/22 hydralazine 100 mg tablet 100 mg PO TID 07/01/21 07/20/22 pantoprazole 40 mg tablet,delayed 40 mg PO BID 07/01/21 07/20/22 release glimepiride 4 mg tablet 8 mg PO DAILY 12/21/21 07/20/22 amlodipine 10 mg tablet See Rx Instructions .Route .COMPLEX 06/20/22 07/20/22 Previous Rx's Medication Instructions Recorded ferrous sulfate 325 mg (65 mg 325 mg PO BID #60 tabs 05/02/21 iron) tablet carvedilol 6.25 mg tablet 6.25 mg PO BID #60 tabs 12/27/21 furosemide 40 mg tablet 40 mg PO QAM #30 tabs 12/27/21 magnesium oxide 400 mg (241.3 mg 400 mg PO BID #60 tabs 12/27/21 magnesium) tablet clopidogrel 75 mg tablet 75 mg PO QAM #30 tabs 03/06/22 Results & Data (ED) Vital Signs Vital Signs - 24 hr 07/20/22 09:47 07/20/22 10:23 07/20/22 10:35 Temperature 36.7 C Temperature Source Temporal Artery Scan Pulse Rate 61 60 54 L Pulse Rate from SpO2 Sensor Pulse Rhythm Regular Respiratory Rate 14 18 Blood Pressure 186/75 H Blood Pressure Mean 112 Pulse Oximetry 98 97 Oxygen Delivery Method Room Air Room Air Sepsis New/Unexplained Change in Mental Status No Sepsis Action Taken by Nursing No Action Required 07/20/22 10:23 07/20/22 10:23 07/20/22 10:30 Temperature Temperature Source Pulse Rate 63 Pulse Rate from SpO2 Sensor 60 Pulse Rhythm Respiratory Rate 18 Blood Pressure 175/66 H 162/80 H Blood Pressure Mean 102 107 Pulse Oximetry 96 Oxygen Delivery Method Sepsis New/Unexplained Change in Mental Status Sepsis Action Taken by Nursing 07/20/22 10:30 07/20/22 11:00 07/20/22 11:00 Temperature Temperature Source Pulse Rate 56 L 55 L Pulse Rate from SpO2 Sensor 54 L Pulse Rhythm Respiratory Rate 13 19 Blood Pressure 111/93 Blood Pressure Mean 99 Pulse Oximetry 91 Oxygen Delivery Method Sepsis New/Unexplained Change in Mental Status Sepsis Action Taken by Nursing 07/20/22 12:00 07/20/22 12:00 07/20/22 12:30 Temperature Temperature Source Pulse Rate 55 L Pulse Rate from SpO2 Sensor 53 L Pulse Rhythm Respiratory Rate 15 Blood Pressure 185/80 H 161/76 H Blood Pressure Mean 115 104 Pulse Oximetry 95 Oxygen Delivery Method Sepsis New/Unexplained Change in Mental Status Sepsis Action Taken by Nursing 07/20/22 12:30 07/20/22 13:00 07/20/22 13:00 Temperature Temperature Source Pulse Rate 62 54 L Pulse Rate from SpO2 Sensor 53 L 54 L Pulse Rhythm Respiratory Rate 17 19 Blood Pressure 139/74 Blood Pressure Mean 95 Pulse Oximetry 97 95 Oxygen Delivery Method Sepsis New/Unexplained Change in Mental Status Sepsis Action Taken by Long-Term Medications Current Medication List: was personally reviewed by me Laboratory Data Attestation: I reviewed the patient's lab results. 07/20/22 10:31 07/20/22 10:31 Lab Results 07/20/22 07/20/22 07/20/22 Range/Units 10:31 10:31 10:31 WBC 5.42 (4.8-10.8) K/ul RBC 3.60 L (4.20-5.40) M/uL Hgb 10.4 L (12.0-16.0) g/dl Hct 30.8 L (37.0-47.0) % MCV 85.6 (80.0-100.0) fL MCH 28.9 (25.0-34.0) pg MCHC 33.8 (32.0-36.0) g/dL RDW Std Deviation 48.7 H (36.4-46.3) fL RDW Coeff of Alysa 15.6 H (11.5-14.5) % Plt Count 192 (130-400) K/uL MPV 12.4 (9.4-12.4) fL Immature Gran % (Auto) 0.4 % Neut % (Auto) 68.3 % Lymph % (Auto) 14.6 % [place] % (Auto) 11.3 % Eos % (Auto) 4.8 % Baso % (Auto) 0.6 % Neut # (Auto) 3.71 (1.40-6.50) K/uL Lymph # (Auto) 0.79 L (1.2-3.4) K/uL [place] # (Auto) 0.61 H (0.11-0.59) K/uL Eos # (Auto) 0.26 (0-0.50) K/uL Baso # (Auto) 0.03 (0-0.2) K/uL Immature Gran # (Auto) 0.02 (0.01-0.20) K/uL PT 11.2 (9.0-12.0) Seconds INR 1.1 (0.9-1.1) APTT 26.8 (21.0-31.0) Seconds PTT Ratio 1.0 Sodium 137 (136-145) mmol/L Potassium 3.4 L (3.5-5.1) mmol/L Chloride 103 (98-107) mmol/L Carbon Dioxide 29 (21-32) mmol/L Anion Gap 5 (3-11) BUN 27 H (6-23) mg/dl Creatinine 1.12 (0.6-1.2) mg/dl Est Cr Clr Drug Dosing 38.3 ml/min Est GFR ( Amer) 53.7 ml/min Est GFR (Non-Af Amer) 46.4 ml/min BUN/Creatinine Ratio 24.1 H (10-20) Glucose 190 H (70-99(Fasting)) mg/dl Calcium 9.6 (8.5-10.1) mg/dl Total Bilirubin 0.5 (0.2-1.0) mg/dl AST 18 (13-39) U/L ALT 18 (7-52) U/L Alkaline Phosphatase 94 (34-104) U/L Troponin I High Sens 18.9 H (0-14) pg/ml Total Protein 6.9 (6.0-8.3) gm/dl Albumin 4.3 (3.4-5.0) gm/dl Globulin 2.6 (2.5-4.0) gm/dl Albumin/Globulin Ratio 1.7 (0.9-2) Lipase 22 (11-82) U/L Urine Color Urine Appearance (Clear) Urine pH (4.5-7.5) Ur Specific [place] (1.000-1.030) Urine Protein (Negative) Urine Glucose (UA) (Negative) Urine Ketones (Negative) Urine Blood (Negative) Urine Nitrite (Negative) Urine Bilirubin (Negative) Urine Urobilinogen (Negative) Ur Leukocyte Esterase (Negative) 07/20/22 07/20/22 Range/Units 12:37 12:37 WBC (4.8-10.8) K/ul RBC (4.20-5.40) M/uL Hgb (12.0-16.0) g/dl Hct (37.0-47.0) % MCV (80.0-100.0) fL MCH (25.0-34.0) pg MCHC (32.0-36.0) g/dL RDW Std Deviation (36.4-46.3) fL RDW Coeff of Alysa (11.5-14.5) % Plt Count (130-400) K/uL MPV (9.4-12.4) fL Immature Gran % (Auto) % Neut % (Auto) % Lymph % (Auto) % [place] % (Auto) % Eos % (Auto) % Baso % (Auto) % Neut # (Auto) (1.40-6.50) K/uL Lymph # (Auto) (1.2-3.4) K/uL [place] # (Auto) (0.11-0.59) K/uL Eos # (Auto) (0-0.50) K/uL Baso # (Auto) (0-0.2) K/uL Immature Gran # (Auto) (0.01-0.20) K/uL PT (9.0-12.0) Seconds INR (0.9-1.1) APTT (21.0-31.0) Seconds PTT Ratio Sodium (136-145) mmol/L Potassium (3.5-5.1) mmol/L Chloride (98-107) mmol/L Carbon Dioxide (21-32) mmol/L Anion Gap (3-11) BUN (6-23) mg/dl Creatinine (0.6-1.2) mg/dl Est Cr Clr Drug Dosing ml/min Est GFR ( Amer) ml/min Est GFR (Non-Af Amer) ml/min BUN/Creatinine Ratio (10-20) Glucose (70-99(Fasting)) mg/dl Calcium (8.5-10.1) mg/dl Total Bilirubin (0.2-1.0) mg/dl AST (13-39) U/L ALT (7-52) U/L Alkaline Phosphatase (34-104) U/L Troponin I High Sens 18.6 H (0-14) pg/ml Total Protein (6.0-8.3) gm/dl Albumin (3.4-5.0) gm/dl Globulin (2.5-4.0) gm/dl Albumin/Globulin Ratio (0.9-2) Lipase (11-82) U/L Urine Color Yellow Urine Appearance Clear (Clear) Urine pH 7.0 (4.5-7.5) Ur Specific [place] 1.006 (1.000-1.030) Urine Protein Negative (Negative) Urine Glucose (UA) Negative (Negative) Urine Ketones Negative (Negative) Urine Blood Negative (Negative) Urine Nitrite Negative (Negative) Urine Bilirubin Negative (Negative) Urine Urobilinogen Negative (Negative) Ur Leukocyte Esterase Negative (Negative) Administered Medications Discontinued Medications Furosemide (Furosemide 40 Mg/4 Ml Vial) 40 mg IV ONE ONE Stop: 07/20/22 11:48 Last Admin: 07/20/22 11:54 Dose: 40 mg Documented By: APRIL Potassium Chloride (Potassium Chloride Crtab 20 Meq Tabcr) 20 meq PO NOW STA Stop: 07/20/22 11:48 Last Admin: 07/20/22 11:54 Dose: 20 meq Documented By: APRIL Imaging Data Radiologist's Impression: Chest X-Ray 07/20/22 10:15 XR chest 1V portable HISTORY: 82 years-old Female Chest pain, nonspecific acute chest pain with hypertension COMPARISON: 06/21/2022 TECHNIQUE: AP view of the chest FINDINGS: Cardiac silhouette is enlarged. Aortic valvular endograft. Atherosclerosis of the aorta. Pulmonary vascular congestion. Mild bibasilar densities. Degenerative changes of the shoulders and spine. IMPRESSION: Cardiomegaly with pulmonary vascular congestion. ACT 112: Negative or not required by law. The above report was generated using voice recognition software. It may contain grammatical, syntax or spelling errors. Electronically signed by: Abraham Solis M.D. 07/20/2022 10:[address] 07/20/22 10:38 CT head/brain wo con CLINICAL HISTORY: 82 years-old Female with ataxia. Acutely altered mental status TECHNIQUE: Multiple axial CT images of the head were obtained without contrast. A dose lowering technique was utilized adhering to the principles of ALARA. CT DOSE: 537.48 mGy.cm COMPARISON: 07/01/2021 FINDINGS: No acute intracranial hemorrhage, midline shift, intracranial mass, hy drocephalus, territorial ischemia or abnormal extra-axial collection. Involutional changes with chronic microvascular ischemic disease. Senescent calcifications of the basal ganglia. The calvarium is intact. Prior bilateral lens repair. The paranasal sinuses, mastoid air cells, and middle ear cavities are clear. IMPRESSION: No acute intracranial abnormality. ACT 112: Negative or not required by law. The above report was generated using voice recognition software. It may contain grammatical, syntax or spelling errors. Electronically signed by: Abraham Solis M.D. 07/20/2022 11:37 AM Discharge Plan Visit Data Chief Complaint: Hypertension Stated Complaint: HYPERTENSION, DIZZINESS ED Provider: Derrek Brown Discharge Problem: Pulmonary edema, Hypertension, Acute urinary retention, Elevated troponin I level Patient Disposition: Being Evaluated by Hospitalist Forms Stand Alone Forms: My [facility] Prescriptions Prescriptions: No Action aspirin 81 mg Tablet,Delayed Release (Dr/Ec) 81 mg PO HS metformin 500 mg tablet extended release 24 hr 1,000 mg PO BIDM coenzyme Q10 [CoQ-10] 100 mg Capsule 100 mg PO QAM [place] 3-6-9 1,200 mg Capsule 1 cap PO QDD ferrous sulfate 325 mg (65 mg iron) tablet 325 mg PO BID Qty: 60 0RF amiodarone 200 mg tablet 200 mg PO QAM hydralazine 100 mg tablet 100 mg PO TID pantoprazole 40 mg tablet,delayed release (DR/EC) 40 mg PO BID glimepiride 4 mg tablet 8 mg PO DAILY furosemide 40 mg Tablet 40 mg PO QAM Qty: 30 0RF carvedilol 6.25 mg Tablet 6.25 mg PO BID Qty: 60 0RF magnesium oxide 400 mg (241.3 mg magnesium) tablet 400 mg PO BID Qty: 60 0RF Rx Instructions: OTC clopidogrel 75 mg Tablet 75 mg PO QAM Qty: 30 0RF multivitamin Tablet 1 tab PO QAM atorvastatin 40 mg Tablet 40 mg PO QAM amlodipine 10 mg tablet See Rx Instructions .ROUTE .COMPLEX Rx Instructions: 10 mg; TAKES 10 MG QAM, THEN 5 MG QPM. Referrals Referrals: Tiara Ochoa PA-C [Primary Care Provider] -
--- NOTE | 2022-07-20 10:54 | XRay Report ---
XR chest 1V portable HISTORY: 82 years-old Female Chest pain, nonspecific acute chest pain with hypertension COMPARISON: 06/21/2022 TECHNIQUE: AP view of the chest FINDINGS: Cardiac silhouette is enlarged. Aortic valvular endograft. Atherosclerosis of the aorta. Pulmonary va scular congestion. Mild bibasilar densities. Degenerative changes of the shoulders and spine. IMPRESSION: Cardiomegaly with pulmonary vascular congestion. ACT 112: Negative or not required by law. The above report was generated using voice recognition software. It may contain grammatical, syntax o r spelling errors. Electronically signed by: Abraham Slois M.D. 07/20/2022 10:53 AM
[2022-07-20 10:56] LABS: Basophils # (auto) 0.03 K/uL (0-0.2); Basophils % (auto) 0.6 %; Eosinophils # (auto) 0.26 K/uL (0-0.50); Eosinophils % (auto) 4.8 %; Hematocrit (blood only) 30.8 % (37.0-47.0); Hemoglobin 10.4 g/dl (12.0-16.0); Immature Granulocytes # (auto) 0.02 K/uL (0.01-0.20); Immature Granulocytes % (auto) 0.4 %; Lymphocytes # (auto) 0.79 K/uL (1.2-3.4); Lymphocytes % (auto) 14.6 %; Mean Corpuscular Hemoglobin 28.9 pg (25.0-34.0); Mean Corpuscular Hgb Conc 33.8 g/dL (32.0-36.0); Mean Corpuscular Volume 85.6 fL (80.0-100.0); Mean Platelet Volume 12.4 fL (9.4-12.4); Monocytes # (auto) 0.61 K/uL (0.11-0.59); Monocytes % (auto) 11.3 %; Neutrophils # (auto) 3.71 K/uL (1.40-6.50); Neutrophils % (auto) 68.3 %; Platelet Count 192 K/uL (130-400); RDW Coefficient of Variation 15.6 % (11.5-14.5); RDW Standard Deviation 48.7 fL (36.4-46.3); White Blood Count 5.42 K/ul (4.8-10.8)
[2022-07-20 11:12] LABS: Albumin Globulin Ratio 1.7 (0.9-2); Albumin Level 4.3 gm/dl (3.4-5.0); BUN Creatinine Ratio 24.1 (10-20); Bilirubin,Total 0.5 mg/dl (0.2-1.0); Calcium 9.6 mg/dl (8.5-10.1); Creatinine Clr Calc Pharmacy 38.3 ml/min; Est GFR (African American) 53.7 ml/min; Est GFR (Non-African American) 46.4 ml/min; Globulin 2.6 gm/dl (2.5-4.0); Potassium 3.4 mmol/L (3.5-5.1); Total Protein 6.9 gm/dl (6.0-8.3)
[2022-07-20 11:18] LABS: Troponin I High Sensitivity 18.9 pg/ml (0-14)
[2022-07-20 11:35] LABS: INR 1.1 (0.9-1.1); Partial Thromboplastin Time 26.8 Seconds (21.0-31.0); Prothrombin Time 11.2 Seconds (9.0-12.0)
--- NOTE | 2022-07-20 11:38 | CT Scan Report ---
CT head/brain wo con CLINICAL HISTORY: 82 years-old Female with ataxia. Acutely altered mental status TECHNIQUE: Multiple axial CT images of the head were obtained without contrast. A dose lowering tech nique was utilized adhering to the principles of ALARA. CT DOSE: 537.48 mGy.cm COMPARISON: 07/01/2021 FINDINGS: No acute intracranial hemorrhage, midline shift, intracranial mass, hydrocephalus, territorial ischem ia or abnormal extra-axial collection. Involutional changes with chronic microvascular ischemic disea se. Senescent calcifications of the basal ganglia. The calvarium is intact. Prior bilateral lens repair. The paranasal sinuses, mastoid air cells, and m iddle ear cavities are clear. IMPRESSION: No acute intracranial abnormality. ACT 112: Negative or not required by law. The above report was generated using voice recognition software. It may contain grammatical, syntax o r spelling errors. Electronically signed by: Abraham Solis M.D. 07/20/2022 11:37 AM
[2022-07-20] MEDS ORDERED: FUROSEMIDE 40 MG/4 ML VIAL IV ONE (11:47)
[2022-07-20] MEDS ORDERED: POTASSIUM CHLORIDE CRTAB 20 MEQ TABCR PO STA (11:47)
--- NOTE | 2022-07-20 11:48 | Electrocardiogram Report ---
Test Reason : Blood Pressure : / mmHG Vent. Rate : 060 BPM Atrial Rate : 060 BPM P-R Int : 190 ms QRS Dur : 102 ms QT Int : 474 ms P-R-T Axes : 076 014 114 degrees QTc Int : 474 ms Normal sinus rhythm Nonspecific ST and T wave abnormality Abnormal ECG When compared with ECG of 05-MAR-2022 12:11, No significant change was found Confirmed by Prem Mcpherson ([id number]) on 07/20/2022 11:48:29 AM Referred By: REFERRED SELF Confirmed By:Prem Mcpherson
[2022-07-20 12:56] LABS: Appearance Urine Clear (Clear); Bilirubin Urine Negative (Negative); Blood Urine Negative (Negative); Color Urine Yellow; Glucose Urine UA Negative (Negative); Ketones Urine Negative (Negative); Leukocyte Esterase Urine Negative (Negative); Nitrite Urine Negative (Negative); Protein Urine Negative (Negative); Specific Gravity Urine 1.006 (1.000-1.030); Urobilinogen Urine Negative (Negative)
--- NOTE | 2022-07-20 14:05 | History & Physical Report ---
Date of Service July 20, 2022 Assessment & Plan (1) (HFpEF) heart failure with preserved ejection fraction: Plan: CXR with pulmonary vascular congestion, patient with mild JVD and HJR, legs with skin edema. He is without oxygen requirement or orthopnea Patient did have a salt load last evening, had sauerkraut, diastolic dogs, and Ramen noodles last night Discussed importance of low-salt diet, and total amount of salt in the above meal. Continue Lasix IV daily, target net output approximately 1 L. Maintain O2 saturation greater than 90% Diuresis complicated by acute urinary retention (2) Urinary retention: Plan: - New, just since last night. Patient with no prior history of urinary retention - UA uninfected appearing. - Pt denies other injury, pain - No recent narcotic use, no new medication changes No numbness/tingling of the saddle or lower extremities, no back pain - Drained PVR 900 while in ER - US-bladder/renal pending - Castañeda in palce (3) Atrial fibrillation with RVR: Plan: A-fib with history of RVR - nsr on admit assessmnet - No afib in last year -Follows with cardiology. Patient was switched from Eliquis to DAPT during summer 2021 admission due to persistent blood loss anemia, iron deficiency, and GI bleed. - Follow on tele Continue amiodarone daily Continue cardiology follow-up (4) CAD (coronary artery disease): Plan: CAD Aspirin 81 mg nightly Atorvastatin 40 mg every morning Carvedilol 6.25 mg p.o. twice daily Plavix 75 mg daily On Lasix 40 mg every morning (5) Aortic stenosis: Plan: s/p bioprosthetic AVR doing well (6) DM (diabetes mellitus): Plan: DM2 Hold home metformin, glimepiride - weight based basal + SSI - Goal bsg 110-140 - DM diet (7) HTN (hypertension): (8) Hyperlipemia: (9) Hypertension: Plan: Hypertension Amlodipine 10 mg every morning, 5 mg every afternoon Carvedilol as noted (10) Paroxysmal atrial fibrillation: (11) Type 2 diabetes mellitus with diabetic neuropathy, unspecified: (12) Volume overload: Plan GERD Protonix 40 mg p.o. twice daily DVT PPx: On DAPT, SCDs 2/2 hx of recurrent anemia/bleeding Diet: Low Na, DM Dispo: MedTele Code: Full History of Present Illness Primary Care Provider: Tiara Ochoa PA-C Adri is a 82-year-old female with past medical history of heart failure with preserved ejection fraction, s/p TAVR, GI bleed, GERD, bradycardia, NSTEMI, A- fib with RVR, DM, PAD, hypertension, hyperlipidemia who presented to the emergency department with hypertension and poor balance. She has not had any falls, has had increased leg swelling. On ER assessment CThead is without acute findings. CXR: Cardiomegaly with pulmonary vascular congestion No leukocytosis Sodium is normal, potassium is slightly low at 3.4 Creatinine is with normal baseline and 1.12 on admission, age-adjusted creatinine clearance of 38. Admitting BSG is 190 High-sensitivity troponin is 18.9, repeat 18.6 Patient was recently discharged slightly less than 1 month ago after being admitted for acute ischemic colitis, acute on chronic diastolic heart failure and chronic unstable hypertension. Seen with family at bedside. Seen this mornin and 'felt funny and wobbly' this morning without focal weakness. BP was systolic 200s this AM. Family was worried due to her history of heart disease. Pt endoses she felt weak/wobby but not like she was going to pass out. No syncope. No arm/leg weakness just off balance. Notes she didn't eat much yesterday. Pt repots she has been peeing 'a lot' due to lasix at home. No burning. Generally light in color. Denies problems peeing, but notes she does pee several time after her PO lasix in the evening. Lsat night ate [place] which has a lot of salt. Also had ramen noodles with a packet of seasoning. Normally does not add salt to food. Also had hot dogs with the kraut last night. No shortness of breath. No headache. No chest pain or chest pressure. No fever, chills, sweats No nausea, vomiting, or diarrhea No pain Hx of R leg pain 2/2 ankle fracture with hardare Chronically L>R swelling, hx of vascular bipass +1+ L edema, mild R ankle edema Medical History: Reviewed Medications: Reviewed Surgical History: Reviewed Allergies: Reviewed Social History: Rare social glass of wine, no tobacco Code Status: Full Code Allergies Allergy/AdvReac Type Severity Reaction Status Date / Time fenofibrate AdvReac Intermediate INCREASED Verified 06/20/22 00:24 URINATION metoprolol AdvReac Intermediate VOMIT,DIARR Verified 06/20/22 00:24 HEA valsartan AdvReac Intermediate Weakness Verified 06/20/22 00:24 verapamil AdvReac Intermediate INCREASED Verified 06/20/22 00:24 URINATION Home Medications Medication Instructions Recorded Confirmed Type aspirin 81 mg tablet,delayed 81 mg PO HS 03/04/20 07/20/22 History release metformin 500 mg tablet,extended 1,000 mg PO BIDM 03/04/20 07/20/22 History release 24 hr coenzyme Q10 100 mg capsule 100 mg PO QAM 12/01/20 07/20/22 History (CoQ-10) fish, borage, flaxseed oils-omega 1 cap PO QDD 12/01/20 07/20/22 History 3,6,9 comb no.1 1,200 mg capsule ([place] 3-6-9) atorvastatin 40 mg tablet 40 mg PO QAM 02/26/21 07/20/22 History multivitamin 1 tab PO QAM 02/26/21 07/20/22 History ferrous sulfate 325 mg (65 mg 325 mg PO BID #60 tabs 05/02/21 07/20/22 Rx iron) tablet amiodarone 200 mg tablet 200 mg PO QAM 07/01/21 07/20/22 History hydralazine 100 mg tablet 100 mg PO TID 07/01/21 07/20/22 History pantoprazole 40 mg tablet,delayed 40 mg PO BID 07/01/21 07/20/22 History release glimepiride 4 mg tablet 8 mg PO DAILY 12/21/21 07/20/22 History carvedilol 6.25 mg tablet 6.25 mg PO BID #60 tabs 12/27/21 07/20/22 Rx furosemide 40 mg tablet 40 mg PO QAM #30 tabs 12/27/21 07/20/22 Rx magnesium oxide 400 mg (241.3 mg 400 mg PO BID #60 tabs 12/27/21 07/20/22 Rx magnesium) tablet clopidogrel 75 mg tablet 75 mg PO QAM #30 tabs 03/06/22 07/20/22 Rx amlodipine 10 mg tablet See Rx Instructions .Route .COMPLEX 06/20/22 07/20/22 History Past Med/Surg History Medical History Acute non-ST elevation myocardial infarction (NSTEMI) Acute on chronic heart failure with preserved ejection fraction (HFpEF) Anemia Bradycardia CAD (coronary artery disease) CVA (cerebral vascular accident) (~2019) no deficits Elevated troponin Encounter for pre-operative examination Hyperlipemia Hypertension Hypoxia Myocardial infarct, old follows with Dr. Mcpherson Occlusion of right iliac artery PAD (peripheral artery disease) Pneumonia hx S/P angiogram of extremity (02/02/21) Type 2 diabetes mellitus with diabetic neuropathy, unspecified NIDDM Surgical History H/O removal of cyst right abdominal area History of bunionectomy of right great toe History of cardiac cath (~2018) History of heart artery stent (~2018) x1. at [facility]. Status post ORIF of fracture of ankle Family History Other No family history of adverse response to anesthesia Social History Smoking Status: Former smoker Tobacco Type: Cigarettes Second Hand Exposure: No; Hx Alcohol Use: Yes Alcohol type: beer, wine and hard liquor Hx Substance Use: No Preferred Language: Italian Communication Ability: Effective Plate Colorer Required: No Beliefs That Will Affect Care: None marital status: / Current Living Situation: Alone Current Living Situation Comment: ranch style home current occupational status: retired How many Children do You have: 1 Feels Safe at Home: Yes Assistive Devices: Glasses and Walker Review of Systems Review of Systems: All systems reviewed & are unremarkable except as noted in HPI & below Physical Exam Physical Exam: General: A&Ox3. NAD. Cooperative. HEENT: Atraumatic, normocephalic. Vision/hearing grossly intact. PERLAA. Pulm: Bibasilar crackles. -wheezes, -rales, -rhonchi. Symmetrical chest rise. No increased work of breathing. No respiratory distress. Cardiac: RRR, +sm. Radial pulses intact and symmetrical. JVD is present at the level of the clavicle with HJR to the mid neck Abdominal: Nontender, nondistended, soft. BS present. Extremities: Left lower extremity with 12+ edema, right lower extremity with 1+ edema. Patient with chronic tenderness of the right lower extremity due to history of ankle fracture with indwelling hardware. 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, elbow flexion/ankle dorsiflexion/plantarflexion intact Results & Data Results & Data ([facility]) Vital Signs (Past 12 Hours) Vital Signs Temp Pulse Resp BP Pulse Ox O2 Del Method 07/20/22 13:00 54 L 19 95 07/20/22 13:00 139/74 07/20/22 12:30 62 17 97 07/20/22 12:30 161/76 H 07/20/22 12:00 55 L 15 95 07/20/22 12:00 185/80 H 07/20/22 11:00 55 L 19 07/20/22 11:00 111/93 07/20/22 10:30 56 L 13 91 07/20/22 10:30 162/80 H 07/20/22 10:23 175/66 H 07/20/22 10:23 63 18 96 07/20/22 10:35 54 L 18 97 Room Air 07/20/22 10:23 60 07/20/22 09:47 36.7 C 61 14 186/75 H 98 Room Air PG Care Time/CCT Total # of Minutes Spent Total Time Spent with Patient: Total time spent is greater than 50% in coordination of care (as documented) at patient's floor/unit and/or counseling patient: Coding Level of Care Code 61862 INT INP/OBS CARE 2/55MIN Diagnoses (HFpEF) heart failure with preserved ejection fraction I50.30 Urinary retention R33.9 Atrial fibrillation with RVR I48.91 CAD (coronary artery disease) I25.10 Aortic stenosis I35.0 DM (diabetes mellitus) E11.9 HTN (hypertension) I10 Hyperlipemia E78.5 Paroxysmal atrial fibrillation I48.0 Type 2 diabetes mellitus with diabetic neuropathy, unspecified E11.40 Volume overload E87.70
[2022-07-20] MEDS ORDERED: GLUCOSE 40% GEL 15 GM TUBE PO PRN (18:48)
[2022-07-20] MEDS ORDERED: NON-FORMULARY MEDICATION (Coenzyme Q10 [Coq-10] 100 mg Capsule) PO SCH (18:48)
[2022-07-20] MEDS ORDERED: ACETAMINOPHEN 325 MG TAB PO PRN (18:48)
[2022-07-20] MEDS ORDERED: DEXTROSE 50% 50 ML SYRINGE IV PRN (18:48)
[2022-07-20] MEDS ORDERED: GLUCOSE 10 TAB/TUBE PO PRN (18:48)
[2022-07-20] MEDS ORDERED: CARBOHYDRATES FOR HYPOGLYCEMIA PO PRN (18:48)
[2022-07-20] MEDS ORDERED: GLUCAGON FOR INJ 1 MG VIAL SQ PRN (18:48)
--- NOTE | 2022-07-20 19:32 | Ultrasound Report ---
US retro bladder ltd HISTORY: 82 years-old Female Urinary retention ?obstruction acute urinary retention COMPARISON: CT 06/20/2022 TECHNIQUE: Multiple real-time sonographic images of the urinary bladder were obtained assessing jeane poppy appearance FINDINGS/IMPRESSION: Nonvisualization of the urinary bladder, likely decompressed. ACT 112: Negative or not required by law. The above report was generated using voice recognition software. It may contain grammatical, syntax o r spelling errors. Electronically signed by: Abraham Solis M.D. 07/20/2022 7:29 PM
[2022-07-20] MEDS: INSULIN ASPART PER UNIT SC SCH ×2 (20:06→20:36)
[2022-07-20] MEDS: PANTOprazole 40 MG TAB PO SCH (21:56)
[2022-07-20] MEDS: LANTUS PER UNIT CHARGE SQ SCH (21:56)
[2022-07-20] MEDS: hydrALAZINE TAB 50 MG TAB PO SCH (21:56)
[2022-07-20] MEDS: amLODIPine BESYLATE 5 MG TAB PO SCH (21:59)
[2022-07-20] MEDS: carvediloL 6.25 MG TAB PO SCH (21:59)
[2022-07-20] MEDS: ASPIRIN 81 MG ECTAB PO SCH (21:59)
[2022-07-20] MEDS: POTASSIUM CHLORIDE CRTAB 20 MEQ TABCR PO SCH (21:59)
[2022-07-21 04:15] LABS: Basophils # (auto) 0.03 K/uL (0-0.2); Basophils % (auto) 0.5 %; Eosinophils # (auto) 0.28 K/uL (0-0.50); Eosinophils % (auto) 4.8 %; Hematocrit (blood only) 30.3 % (37.0-47.0); Immature Granulocytes # (auto) 0.02 K/uL (0.01-0.20); Immature Granulocytes % (auto) 0.3 %; Lymphocytes # (auto) 1.14 K/uL (1.2-3.4); Lymphocytes % (auto) 19.7 %; Mean Corpuscular Hemoglobin 28.6 pg (25.0-34.0); Mean Corpuscular Volume 86.6 fL (80.0-100.0); Mean Platelet Volume 12.3 fL (9.4-12.4); Monocytes # (auto) 0.62 K/uL (0.11-0.59); Monocytes % (auto) 10.7 %; Neutrophils # (auto) 3.69 K/uL (1.40-6.50); Platelet Count 189 K/uL (130-400); RDW Coefficient of Variation 15.6 % (11.5-14.5); RDW Standard Deviation 49.3 fL (36.4-46.3); White Blood Count 5.78 K/ul (4.8-10.8)
[2022-07-21 04:25] LABS: Calcium 9.1 mg/dl (8.5-10.1); Creatinine Clr Calc Pharmacy 32.2 ml/min; Est GFR (African American) 45.7 ml/min; Est GFR (Non-African American) 39.4 ml/min; Potassium 3.8 mmol/L (3.5-5.1)
[2022-07-21] MEDS: hydrALAZINE TAB 50 MG TAB PO SCH ×3 (07:21→21:18)
[2022-07-21] MEDS: AMIODARONE 200 MG TAB PO SCH (07:22)
[2022-07-21] MEDS: POTASSIUM CHLORIDE CRTAB 20 MEQ TABCR PO SCH ×3 (07:22→21:20)
[2022-07-21] MEDS: amLODIPine BESYLATE 5 MG TAB PO SCH ×2 (07:22→21:15)
[2022-07-21] MEDS: CLOPIDOGREL BISULFATE 75 MG TAB PO SCH (07:22)
[2022-07-21] MEDS: ATORVASTATIN 40 MG TAB PO SCH (07:22)
[2022-07-21] MEDS: FUROSEMIDE 40 MG/4 ML VIAL IV SCH (07:23)
[2022-07-21] MEDS: carvediloL 6.25 MG TAB PO SCH ×2 (07:23→21:18)
[2022-07-21] MEDS: PANTOprazole 40 MG TAB PO SCH ×2 (07:24→21:19)
[2022-07-21] MEDS: INSULIN ASPART PER UNIT SC SCH ×4 (07:47→21:21)
--- NOTE | 2022-07-21 07:50 | Hospitalist Progress Note ---
Date of Service July 21, 2022 Assessment & Plan (1) (HFpEF) heart failure with preserved ejection fraction: Plan: Acute on chronic HFpEF moderate risk -CXR with pulmonary vascular congestion, patient with mild JVD and HJR, legs with skin edema. Patient did have a salt load last evening, had sauerkraut, diastolic dogs, and Ramen noodles last night educated on HF Continue Lasix IV daily, target net output approximately 1 L., -2500 Diuresis complicated by acute urinary retention (2) Urinary retention: Plan: - acute moderate risk. Patient with no prior history of urinary retention - UA uninfected appearing. no suspected to be neurogenic - - Drained PVR 900 while in ER - US-bladder/renal did suggest decompressed bladder - Castañeda in palce (3) Atrial fibrillation with RVR: Plan: A-fib with history of RVR, chronic stable continued medical management - nsr on admit assessment -Follows with cardiology. Continue amiodarone daily Patient was switched from Eliquis to DAPT during summer 2021 admission due to persistent blood loss anemia, iron deficiency, and GI bleed. (4) CAD (coronary artery disease): Plan: CAD, chronic stable continue medical management Aspirin 81 mg nightly Atorvastatin 40 mg every morning Carvedilol 6.25 mg p.o. twice daily Plavix 75 mg daily On Lasix 40 mg every morning, changed to IV on presentation (5) Aortic stenosis: Plan: s/p bioprosthetic AVR, chronic and stable (6) DM (diabetes mellitus): Plan: DM2 chronic, managment with basal bolus Hold home metformin, glimepiride - DM diet (7) HTN (hypertension): (8) Hyperlipemia: (9) Paroxysmal atrial fibrillation: (10) Type 2 diabetes mellitus with diabetic neuropathy, unspecified: (11) Volume overload: Plan GERD Protonix 40 mg p.o. twice daily DVT PPx: On DAPT, SCDs 2/2 hx of recurrent anemia/bleeding Code: Full Admission and Anticipated Discharge Date Admission Date: July 20, 2022 Subjective Patient feels markedly improved she actually feels that her legs are thinner than she ever remember seeing them. She admits to dietary discretion. She has no chest pain, shortness of breath or issues Physical Exam Physical Exam: Patient awake and alert she is pleasant remembers me from previous visit Card exam is regular with a systolic murmur JVD is 1 cm Lungs are actually clear Extremities are without edema Results & Data Results & Data ([facility]) Vital Signs (Past 12 Hours) Vital Signs Temp Pulse Pulse Pulse Resp BP BP 07/21/22 07:40 98.2 F 55 L 18 171/54 H 07/21/22 07:13 56 L 07/21/22 02:39 98.2 F 56 L 18 144/58 H 07/21/22 00:00 58 L 07/20/22 23:07 98.2 F 59 L 18 186/52 H 07/20/22 21:01 07/20/22 20:40 98.4 F 62 20 187/68 H Pulse Ox O2 Del Method 07/21/22 07:40 94 Room Air 07/21/22 07:13 07/21/22 02:39 92 Room Air 07/21/22 00:00 07/20/22 23:07 93 Room Air 07/20/22 21:01 Room Air 07/20/22 20:40 95 Room Air Laboratory Results Reviewed CBC Reviewed PRP Reviewed troponin PG Care Time/CCT Total # of Minutes Spent Total Time Spent with Patient: Total time spent is greater than 50% in coordination of care (as documented) at patient's floor/unit and/or counseling patient: Coding Level of Care Code 42339 SUB INP/OBS CARE 2/35MIN Diagnoses (HFpEF) heart failure with preserved ejection fraction I50.30 Urinary retention R33.9 Atrial fibrillation with RVR I48.91 CAD (coronary artery disease) I25.10 Aortic stenosis I35.0 DM (diabetes mellitus) E11.9 HTN (hypertension) I10 Hyperlipemia E78.5 Paroxysmal atrial fibrillation I48.0 Type 2 diabetes mellitus with diabetic neuropathy, unspecified E11.40 Volume overload E87.70
[2022-07-21] MEDS: LANTUS PER UNIT CHARGE SQ SCH ×2 (07:55→21:22)
[2022-07-21] MEDS ORDERED: NON-FORMULARY MEDICATION (Coenzyme Q10 [Coq-10] 100 mg Capsule) PO SCH (09:00)
[2022-07-21] MEDS: ASPIRIN 81 MG ECTAB PO SCH (21:16)
[2022-07-22] MEDS: INSULIN ASPART PER UNIT SC SCH ×3 (08:24→17:12)
[2022-07-22] MEDS: LANTUS PER UNIT CHARGE SQ SCH (08:25)
[2022-07-22] MEDS: hydrALAZINE TAB 50 MG TAB PO SCH ×2 (08:29→13:20)
[2022-07-22] MEDS: PANTOprazole 40 MG TAB PO SCH (08:29)
[2022-07-22] MEDS: CLOPIDOGREL BISULFATE 75 MG TAB PO SCH (08:30)
[2022-07-22] MEDS: carvediloL 6.25 MG TAB PO SCH (08:30)
[2022-07-22] MEDS: AMIODARONE 200 MG TAB PO SCH (08:31)
[2022-07-22] MEDS: ATORVASTATIN 40 MG TAB PO SCH (08:31)
[2022-07-22] MEDS: amLODIPine BESYLATE 5 MG TAB PO SCH (08:31)
[2022-07-22] MEDS: POTASSIUM CHLORIDE CRTAB 20 MEQ TABCR PO SCH (08:38)
[2022-07-22] MEDS: FUROSEMIDE 40 MG/4 ML VIAL IV SCH (09:35)
[2022-07-22 12:50] LABS: Calcium 9.6 mg/dl (8.5-10.1); Magnesium 2.2 mg/dl (1.7-2.4); Potassium 4.4 mmol/L (3.5-5.1)
[2022-07-22 12:56] LABS: BUN Creatinine Ratio 23.8 (10-20); Creatinine Clr Calc Pharmacy 25.3 ml/min; Est GFR (African American) 33.9 ml/min; Est GFR (Non-African American) 29.2 ml/min
--- NOTE | 2022-07-22 15:32 | Discharge Summary ---
Date of Service July 22, 2022 Admission HPI Per Admitting Provider Adri is a 82-year-old female with past medical history of heart failure with preserved ejection fraction, s/p TAVR, GI bleed, GERD, bradycardia, NSTEMI, A- fib with RVR, DM, PAD, hypertension, hyperlipidemia who presented to the emergency department with hypertension and poor balance. She has not had any falls, has had increased leg swelling. On ER assessment CThead is without acute findings. CXR: Cardiomegaly with pulmonary vascular congestion No leukocytosis Sodium is normal, potassium is slightly low at 3.4 Creatinine is with normal baseline and 1.12 on admission, age-adjusted creatinine clearance of 38. Admitting BSG is 190 High-sensitivity troponin is 18.9, repeat 18.6 Patient was recently discharged slightly less than 1 month ago after being admitted for acute ischemic colitis, acute on chronic diastolic heart failure and chronic unstable hypertension. Seen with family at bedside. Seen this mornin and 'felt funny and wobbly' this morning without focal weakness. BP was systolic 200s this AM. Family was worried due to her history of heart disease. Pt endoses she felt weak/wobby but not like she was going to pass out. No syncope. No arm/leg weakness just off balance. Notes she didn't eat much yesterday. Pt repots she has been peeing 'a lot' due to lasix at home. No burning. Generally light in color. Denies problems peeing, but notes she does pee several time after her PO lasix in the evening. Lsat night ate [employer] which has a lot of salt. Also had ramen noodles with a packet of seasoning. Normally does not add salt to food. Also had hot dogs with the [employer] last night. No shortness of breath. No headache. No chest pain or chest pressure. No fever, chills, sweats No nausea, vomiting, or diarrhea No pain Hx of R leg pain 2/2 ankle fracture with hardare Chronically L>R swelling, hx of vascular bipass +1+ L edema, mild R ankle edema Medical History: Reviewed Medications: Reviewed Surgical History: Reviewed Allergies: Reviewed Social History: Rare social glass of wine, no tobacco Code Status: Full Code Principal Diagnosis Heart failure preserved ejection fraction Discharge Exam Patient is awake and alert she has no JVD she is no crackles in her lung she is a systolic murmur extremities are without edema Discharge Data Allergies Allergy/AdvReac Type Severity Reaction Status Date / Time fenofibrate AdvReac Intermediate INCREASED Verified 06/20/22 00:24 URINATION metoprolol AdvReac Intermediate VOMIT,DIARR Verified 06/20/22 00:24 HEA valsartan AdvReac Intermediate Weakness Verified 06/20/22 00:24 verapamil AdvReac Intermediate INCREASED Verified 06/20/22 00:24 URINATION Consultations 07/20/22 14:05 ED Decision to Admit Stat Ordered Studies Chest X-Ray 07/20/22 10:15 XR chest 1V portable HISTORY: 82 years-old Female Chest pain, nonspecific acute chest pain with hypertension COMPARISON: 06/21/2022 TECHNIQUE: AP view of the chest FINDINGS: Cardiac silhouette is enlarged. Aortic valvular endograft. Atherosclerosis of the aorta. Pulmonary vascular congestion. Mild bibasilar densities. Degenerative changes of the shoulders and spine. IMPRESSION: Cardiomegaly with pulmonary vascular congestion. ACT 112: Negative or not required by law. The above report was generated using voice recognition software. It may contain grammatical, syntax or spelling errors. Electronically signed by: Abraham Solis M.D. 07/20/2022 10:[address] 07/20/22 10:38 CT head/brain wo con CLINICAL HISTORY: 82 years-old Female with ataxia. Acutely altered mental status TECHNIQUE: Multiple axial CT images of the head were obtained without contrast. A dose lowering technique was utilized adhering to the principles of ALARA. CT DOSE: 537.48 mGy.cm COMPARISON: 07/01/2021 FINDINGS: No acute intracranial hemorrhage, midline shift, intracranial mass, hydrocephalus, territorial ischemia or abnormal extra-axial collection. Involutional changes with chronic microvascular ischemic disease. Senescent calcifications of the basal ganglia. The calvarium is intact. Prior bilateral lens repair. The paranasal sinuses, mastoid air cells, and middle ear cavities are clear. IMPRESSION: No acute intracranial abnormality. ACT 112: Negative or not required by law. The above report was generated using voice recognition software. It may contain grammatical, syntax or spelling errors. Electronically signed by: Abraham Solis M.D. 07/20/2022 11:37 AM Bladder Ultrasound 07/20/22 18:48 US retro bladder ltd HISTORY: 82 years-old Female Urinary retention ?obstruction acute urinary retention COMPARISON: CT 06/20/2022 TECHNIQUE: Multiple real-time sonographic images of the urinary bladder were obtained assessing grayscale appearance FINDINGS/IMPRESSION: Nonvisualization of the urinary bladder, likely decompressed. ACT 112: Negative or not required by law. The above report was generated using voice recognition software. It may contain grammatical, syntax or spelling errors. Electronically signed by: Abraham Solis M.D. 07/20/2022 7:29 PM 07/20/22 10:38 CT head/brain wo con Stat 07/20/22 18:48 US Bladder and Retroperitoneal [US retro bladder ltd] Routine Hospital Course (1) (HFpEF) heart failure with preserved ejection fraction: Acute on chronic HFpEF moderate risk-resolved -CXR with pulmonary vascular congestion, patient with mild JVD and HJR, legs with skin edema. educated on HF Continue Lasix 40mg daily,educated on only drinking if thirsty (2) Urinary retention: - acute moderate risk. resolved - UA uninfected appearing. no suspected to be neurogenic - - US-bladder/renal did suggest decompressed bladder (3) Atrial fibrillation with RVR: A-fib with history of RVR, chronic stable continued medical management - nsr on admit assessment -Follows with cardiology. Continue amiodarone daily Patient was switched from Eliquis to DAPT during summer 2021 admission due to persistent blood loss anemia, iron deficiency, and GI bleed. (4) CAD (coronary artery disease): CAD, chronic stable continue medical management Aspirin 81 mg nightly Atorvastatin 40 mg every morning Carvedilol 6.25 mg p.o. twice daily Plavix 75 mg daily On Lasix 40 mg every morning (5) Aortic stenosis: s/p bioprosthetic AVR, chronic and stable (6) DM (diabetes mellitus): DM2 chronic, managment with basal bolus resume home metformin, glimepiride - DM diet (7) HTN (hypertension): (8) Hyperlipemia: (9) Paroxysmal atrial fibrillation: (10) Type 2 diabetes mellitus with diabetic neuropathy, unspecified: (11) Volume overload: Plan GERD Protonix 40 mg p.o. twice daily Code: Full Total Time Total Time Spent Total Time Spent (In Minutes): Discharge 30 including phone call other family member Discharge Plan Discharge Items Patient Disposition: Home - Self-Care Reason For Visit: VOLUME OVERLOAD,HTN,URINARY RETENTION Discharge Diagnosis: Heart dailure wtih preserved ejection fraction Activity: Resume your previous activity Non-emergency contact: Primary Care Provider and Oracle Database Architect Call non-emergency contact if: your symptoms worsen Follow-up/Referrals: Tiara Ochoa PA-C [Primary Care Provider] - Diet: Low Sodium (2gm) Addtl Attending Provider Instructions: Please follow low-salt diet. As instructed below please try to weigh yourself every day. I did reach out to Dr. Mcpherson's office and hopefully will have a close follow-up appointment. Due to very good response to intravenous Lasix therapy and we will request the return to her usual rate Lasix dose (furosemide) once a day at 40 mg Call 911 and go to the Emergency Room if: * You have tightness or pain in your chest that does not go away with rest or Nitroglycerin * You are very short of breath even with rest Call your doctor if any of the following symptoms or problems start or get worse: * Shortness of breath or difficulty breathing * Wake up at night short of breath * Chest pain * Cough * Swelling of your hands, fee, or legs * More fatigued or tired with your normal activity * Palpitations - sudden fast heart beats WEIGHT * Weigh yourself every morning after using the bathroom. * Use the same scale. * Wear the same amount of clothing. * Write your weight down on your chart. * Call your doctor if you gain more than 2-3 pounds in 1-2 days. MEDICATIONS * Use this discharge instruction sheet for instructions. * Take your medications at the time your doctor ordered. * Do not skip a dose of your medicines. * If you miss a dose of medicine, take as soon as possible, but DO NOT DOUBLE A DOSE. * Read your medicine information when you get home. * Know all of the side effects of your medicine. * Call your doctor's office if you have any side effects. * Be sure all of your doctors know what medicine and herbs you take (including cold, flu, and herbal medicine). * Pain Medicine: If you do not get relief from your pain, please call your doctor for help. Take the following with you to your follow-up doctor appointments: * Weight Chart * Medication List * List of questions Do not drink excessive alcohol, beer or wine. Pending Studies at Discharge: No Stand-Alone Forms: My [facility], Smoking Cessation Medications and DC Order Prescriptions: Continued aspirin 81 mg Tablet,Delayed Release (Dr/Ec) 81 mg PO HS metformin 500 mg tablet extended release 24 hr 1,000 mg PO BIDM coenzyme Q10 [CoQ-10] 100 mg Capsule 100 mg PO QAM Talmage 3-6-9 1,200 mg Capsule 1 cap PO QDD ferrous sulfate 325 mg (65 mg iron) tablet 325 mg PO BID Qty: 60 0RF amiodarone 200 mg tablet 200 mg PO QAM hydralazine 100 mg tablet 100 mg PO TID pantoprazole 40 mg tablet,delayed release (DR/EC) 40 mg PO BID glimepiride 4 mg tablet 8 mg PO DAILY furosemide 40 mg Tablet 40 mg PO QAM Qty: 30 0RF carvedilol 6.25 mg Tablet 6.25 mg PO BID Qty: 60 0RF magnesium oxide 400 mg (241.3 mg magnesium) tablet 400 mg PO BID Qty: 60 0RF Rx Instructions: OTC clopidogrel 75 mg Tablet 75 mg PO QAM Qty: 30 0RF multivitamin Tablet 1 tab PO QAM atorvastatin 40 mg Tablet 40 mg PO QAM amlodipine 10 mg tablet See Rx Instructions .ROUTE .COMPLEX Rx Instructions: 10 mg; TAKES 10 MG QAM, THEN 5 MG QPM. Discharge Orders: Discharge Order (Routine); Ordered 07/22/22 Ordered By: Gurwinder Casiano Admission Data Admit Date/Time: 07/20/22 14:12 Attending Provider: Gurwinder Casiano Admit Provider: Raymond Nichole Primary Care Provider: Tiara Ochoa Other Providers: Raymond Nichole Coding Level of Care Code HOSP INP/OBS DISCH >30 MIN Diagnoses (HFpEF) heart failure with preserved ejection fraction I50.30 Urinary retention R33.9 Atrial fibrillation with RVR I48.91 CAD (coronary artery disease) I25.10 Aortic stenosis I35.0 DM (diabetes mellitus) E11.9 HTN (hypertension) I10 Hyperlipemia E78.5 Paroxysmal atrial fibrillation I48.0 Type 2 diabetes mellitus with diabetic neuropathy, unspecified E11.40 Volume overload E87.70
--- NOTE | 2022-07-22 16:54 | XCELERA ---
[id number]
== END 2022-07-22 17:33 | disposition home or self-care (01) ==
LOC: ED 09:34 → EDINP 09:34 → SUATTDRO 14:12 → 2N 18:48

== ENCOUNTER 2022-09-20 06:57 | Inpatient (IN) ==
[2022-09-20] MEDS ORDERED: ALBUT/IPRATROP 3MG/0.5MG NEB 3 ML VIAL NEB STA (07:37)
[2022-09-20] MEDS ORDERED: FUROSEMIDE 40 MG/4 ML VIAL IV ONE (07:37)
--- NOTE | 2022-09-20 07:37 | Emergency Department Note ---
Impression & Plan Acute dyspnea ED Provider Note INFORMANT: Patient and patient's daughter ED PROVIDER(S): Erich Wilkes DO CHIEF COMPLAINT: Trouble breathing PLAN: Disposition: Admission Outpatient prescription management: none Discussion with: I spoke with the hospitalist, who will see the patient for admission/observation and further evaluation and consultation. MEDICAL DECISION MAKING: This is a 82-year-old female who presents to the ED with a chief complaint of trouble breathing. The daughter provides some of the history. The daughter states that she recently had pneumonia. The patient lives with her. Over the past 5 days the patient has had some increased difficulty breathing. She also reports a runny nose. This weekend about 5 to 7 days ago she had some diarrhea. She also had a little bit of vomiting. These have since improved. She does not use home oxygen. She has history of smoking and congestive heart failure. No increasing pedal edema recently. No other specific complaints at this time. Symptoms are worse with exertion. The daughter reported a fever of 100 yesterday. On my exam, the patient's has some mild increased work of breathing. Lungs are diminished bilaterally. Abdomen is soft and nontender. Heart is regular rate and rhythm. No pedal edema noted. Vital signs reveal hypertension. Twelve-lead EKG shows a sinus rhythm at a rate of 70. Leukocytosis of 18.7. Mild anemia with hemoglobin 9.3. BUN is 57 creatinine is 1.8. This is slightly worse than her baseline. Troponin is mildly elevated. Urine did not show infection. Bio fire was negative. Chest x-ray did not show obvious pneumonia but some mild congestive heart failure. The patient did desaturate to 87% while here. She does not typically use home oxygen. She was placed on oxygen. Arlin given empiric cefepime 2 g IV. She was also given some IV Lasix because of the mild congestive heart failure chest x-ray. She was given a DuoNeb treatment. The patient will be seen by the hospitalist for further evaluation and care. Triage Nursing notes reviewed. Vital Signs: reviewed Prior /Outside records reviewed: none Differential diagnosis: Congestive heart failure, COPD exacerbation, pneumonia, pneumothorax, AR, other Diagnostics, as interpreted by me: 12 lead ECG: Normal sinus rhythm rate of 70. No ST elevation. No PVCs. Normal QTc. Cardiac Monitoring ordered: Sinus rhythm in the 70s. Medical decision rules: [none] Imaging studies: Chest x-ray: Increased vascular markings, mild CHF Procedures: none. Critical care: none. HPI: See MDM above. PAST MEDICAL HISTORY: See Below PAST SURGICAL HISTORY: See Below SOCIAL HISTORY: See Below HOME MEDICATIONS: See Below ALLERGIES: See Below VITALS: See Below PHYSICAL EXAMINATION: See MDM for positive findings otherwise unremarkable. CONSTITUTIONAL/VITAL SIGNS: Reviewed GENERAL:done as appropriate INTEGUMENTARY: done as appropriate HEAD: done as appropriate EYES: done as appropriate RESPIRATORY: done as appropriate CARDIOVASCULAR:done as appropriate GI/ABDOMEN:done as appropriate EXTREMITIES: done as appropriate NEUROLOGICAL: done as appropriate PSYCHIATRIC:done as appropriate MUSCULOSKELETAL:done as appropriate TRIAGE NURSING DOCUMENTATION REVIEWED. Past Med/Surg History Medical History Acute non-ST elevation myocardial infarction (NSTEMI) Acute on chronic heart failure with preserved ejection fraction (HFpEF) Anemia Bradycardia CAD (coronary artery disease) CVA (cerebral vascular accident) (~2019) no deficits Elevated troponin Encounter for pre-operative examination Hyperlipemia Hypertension Hypoxia Myocardial infarct, old follows with Dr. Mcpherson Occlusion of right iliac artery PAD (peripheral artery disease) Pneumonia hx S/P angiogram of extremity (02/02/21) Type 2 diabetes mellitus with diabetic neuropathy, unspecified NIDDM Surgical History H/O removal of cyst right abdominal area History of bunionectomy of right great toe History of cardiac cath (~2018) History of heart artery stent (~2019) x1. at [facility]. Status post ORIF of fracture of ankle Family History Other No family history of adverse response to anesthesia Social History Smoking Status: Former smoker Tobacco Type: Cigarettes Second Hand Exposure: No; Hx Alcohol Use: Yes (rarely) Alcohol type: hard liquor Hx Substance Use: No Preferred Language: Mohawk Communication Ability: Effective Communication Ability Comment: difficulty comprehending at times - dtr, Mamie is typically her caregiver Microfilm Mounter Required: No Beliefs That Will Affect Care: None marital status: / Current Living Situation: Family Current Living Situation Comment: currently moving in with daughter current occupational status: retired How many Children do You have: 1 Feels Safe at Home: Yes Assistive Devices: Walker Allergies Allergies Allergy/AdvReac Type Severity Reaction Status Date / Time fenofibrate AdvReac Intermediate INCREASED Verified 09/20/22 09:43 URINATION metoprolol AdvReac Intermediate VOMIT,DIARR Verified 09/20/22 09:43 HEA valsartan AdvReac Intermediate Weakness Verified 09/20/22 09:43 verapamil AdvReac Intermediate INCREASED Verified 09/20/22 09:43 URINATION Home Meds Home Medications Medication Instructions Recorded Confirmed aspirin 81 mg tablet,delayed 81 mg PO HS 03/04/20 09/20/22 release metformin 500 mg tablet,extended 1,000 mg PO BIDM 03/04/20 09/20/22 release 24 hr coenzyme Q10 100 mg capsule 100 mg PO QAM 12/01/20 09/20/22 (CoQ-10) fish, borage, flaxseed oils-omega 1 cap PO QDD 12/01/20 09/20/22 3,6,9 comb no.1 1,200 mg capsule (Warren 3-6-9) atorvastatin 40 mg tablet 40 mg PO QAM 02/26/21 09/20/22 multivitamin 1 tab PO QAM 02/26/21 09/20/22 amiodarone 200 mg tablet 200 mg PO QAM 07/01/21 09/20/22 hydralazine 100 mg tablet 100 mg PO TID 07/01/21 09/20/22 pantoprazole 40 mg tablet,delayed 40 mg PO BID 07/01/21 09/20/22 release glimepiride 4 mg tablet 4 mg PO BID 12/21/21 09/20/22 amlodipine 10 mg tablet 10 mg PO BID 06/20/22 09/20/22 sacubitril 24 mg-valsartan 26 mg 1 tab PO BID 09/20/22 09/20/22 tablet (Entresto) spironolactone 25 mg tablet 25 mg PO QAM 09/20/22 09/20/22 Previous Rx's Medication Instructions Recorded ferrous sulfate 325 mg (65 mg 325 mg PO BID #60 tabs 05/02/21 iron) tablet carvedilol 6.25 mg tablet 6.25 mg PO BID #60 tabs 12/27/21 furosemide 40 mg tablet 40 mg PO QAM #30 tabs 12/27/21 magnesium oxide 400 mg (241.3 mg 400 mg PO BID #60 tabs 12/27/21 magnesium) tablet clopidogrel 75 mg tablet 75 mg PO QAM #30 tabs 03/06/22 Results & Data (ED) Vital Signs Vital Signs - 24 hr 09/20/22 07:04 09/20/22 07:55 09/20/22 07:30 Temperature 36.5 C Temperature Source Temporal Artery Scan Pulse Rate 70 70 69 Pulse Rate from SpO2 Sensor 69 Pulse Rhythm Regular Pulse Strength Normal Respiratory Rate 24 24 Respiratory Effort / Characteristics Non-Labored Spontaneous Respiratory Depth Normal Respiratory Pattern Regular Blood Pressure 192/62 H 181/75 H Blood Pressure Mean 105 110 Blood Pressure Position Sitting Pulse Oximetry 93 96 Oxygen Delivery Method Room Air Nasal Cannula Oxygen Flow Rate 3 Sepsis Recent Fever Within 48 Hours Yes Sepsis New/Unexplained Change in Mental Status No Sepsis Action Taken by Nursing No Action Required 09/20/22 08:10 09/20/22 08:11 09/20/22 08:17 Temperature Temperature Source Pulse Rate 69 Pulse Rate from SpO2 Sensor Pulse Rhythm Pulse Strength Respiratory Rate 20 Respiratory Effort / Characteristics Spontaneous Respiratory Depth Respiratory Pattern Blood Pressure Blood Pressure Mean Blood Pressure Position Pulse Oximetry 87 L 93 Oxygen Delivery Method Room Air Nasal Cannula Oxygen Flow Rate 3 Sepsis Recent Fever Within 48 Hours Sepsis New/Unexplained Change in Mental Status Sepsis Action Taken by Nursing 09/20/22 08:30 09/20/22 09:00 09/20/22 09:30 Temperature Temperature Source Pulse Rate 68 69 69 Pulse Rate from SpO2 Sensor 68 69 67 Pulse Rhythm Pulse Strength Respiratory Rate 20 20 17 Respiratory Effort / Characteristics Respiratory Depth Respiratory Pattern Blood Pressure 166/80 H 169/105 H 157/76 H Blood Pressure Mean 108 126 103 Blood Pressure Position Pulse Oximetry 95 94 95 Oxygen Delivery Method Nasal Cannula Nasal Cannula Nasal Cannula Oxygen Flow Rate 3 3 3 Sepsis Recent Fever Within 48 Hours Sepsis New/Unexplained Change in Mental Status Sepsis Action Taken by Nursing 09/20/22 10:00 09/20/22 10:30 Temperature Temperature Source Pulse Rate 69 70 Pulse Rate from SpO2 Sensor 67 68 Pulse Rhythm Pulse Strength Respiratory Rate 19 20 Respiratory Effort / Characteristics Respiratory Depth Respiratory Pattern Blood Pressure 166/68 H 174/78 H Blood Pressure Mean 100 110 Blood Pressure Position Pulse Oximetry 95 95 Oxygen Delivery Method Nasal Cannula Nasal Cannula Oxygen Flow Rate 3 3 Sepsis Recent Fever Within 48 Hours Sepsis New/Unexplained Change in Mental Status Sepsis Action Taken by Nursing Laboratory Data 09/20/22 07:39 09/20/22 07:39 Lab Results 09/20/22 09/20/22 09/20/22 Range/Units 07:30 07:39 07:39 WBC 18.70 H (4.8-10.8) K/ul RBC 3.32 L (4.20-5.40) M/uL Hgb 9.3 L (12.0-16.0) g/dl Hct 27.2 L (37.0-47.0) % MCV 81.9 (80.0-100.0) fL MCH 28.0 (25.0-34.0) pg MCHC 34.2 (32.0-36.0) g/dL RDW Std Deviation 42.1 (36.4-46.3) fL RDW Coeff of Alysa 14.0 (11.5-14.5) % Plt Count 282 (130-400) K/uL MPV 12.5 H (9.4-12.4) fL Immature Gran % (Auto) 0.5 % Neut % (Auto) 85.8 % Lymph % (Auto) 3.7 % Wy[place] % (Auto) 8.9 % Eos % (Auto) 0.9 % Baso % (Auto) 0.2 % Neut # (Auto) 16.05 H (1.40-6.50) K/uL Lymph # (Auto) 0.70 L (1.2-3.4) K/uL Wy[place] # (Auto) 1.66 H (0.11-0.59) K/uL Eos # (Auto) 0.16 (0-0.50) K/uL Baso # (Auto) 0.04 (0-0.2) K/uL Immature Gran # (Auto) 0.09 (0.01-0.20) K/uL Sodium 130 L (136-145) mmol/L Potassium 5.1 (3.5-5.1) mmol/L Chloride 100 (98-107) mmol/L Carbon Dioxide 22 (21-32) mmol/L Anion Gap 8 (3-11) BUN 57 H (6-23) mg/dl Creatinine 1.80 H (0.6-1.2) mg/dl Est Cr Clr Drug Dosing 22.6 ml/min Est GFR ( Amer) 30.3 ml/min Est GFR (Non-Af Amer) 26.1 ml/min BUN/Creatinine Ratio 31.7 H (10-20) Glucose 109 H (70-99(Fasting)) mg/dl Lactate (0.4-2.0) mmol/L Calcium 9.0 (8.6-10.3) mg/dl Magnesium 1.9 (1.7-2.4) mg/dl Total Bilirubin 0.6 (0.2-1.0) mg/dl Direct Bilirubin 0.2 (0-0.2) mg/dl AST 18 (13-39) U/L ALT 23 (7-52) U/L Alkaline Phosphatase 96 (34-104) U/L Troponin I High Sens 20.7 H (0-14) pg/ml Total Protein 6.6 (6.0-8.3) gm/dl Albumin 3.5 (3.4-5.0) gm/dl Procalcitonin (0-0.5) ng/ml Urine Color Urine Appearance (Clear) Urine pH (4.5-7.5) Ur Specific [place] (1.000-1.030) Urine Protein (Negative) Urine Glucose (UA) (Negative) Urine Ketones (Negative) Urine Blood (Negative) Urine Nitrite (Negative) Urine Bilirubin (Negative) Urine Urobilinogen (Negative) Ur Leukocyte Esterase (Negative) Adenovirus (PCR) Not Detected (NotDetected) B. pertussis DNA (PCR) Not Detected (NotDetected) B.parapertussis DNA PCR Not Detected (NotDetected) C. pneumoniae DNA (PCR) Not Detected (NotDetected) Coronavirus OC43 (PCR) Not Detected (NotDetected) Coronavirus HKU1 (PCR) Not Detected (NotDetected) Coronavirus 229E (PCR) Not Detected (NotDetected) SARS-CoV-2 (PCR) Not Detected (NotDetected) Coronavirus NL63 (PCR) Not Detected (NotDetected) Human Metapneumovir PCR Not Detected (NotDetected) Influenza Type A (PCR) Not Detected (NotDetected) Influenza Type B (PCR) Not Detected (NotDetected) M. pneumoniae (PCR) Not Detected (NotDetected) Parainfluenza 1 (PCR) Not Detected (NotDetected) Parainfluenza 2 (PCR) Not Detected (NotDetected) Parainfluenza 3 (PCR) Not Detected (NotDetected) Parainfluenza 4 (PCR) Not Detected (NotDetected) RSV (PCR) Not Detected (NotDetected) Entero/Rhino (PCR) Not Detected (NotDetected) 09/20/22 09/20/22 09/20/22 Range/Units 07:39 07:40 08:59 WBC (4.8-10.8) K/ul RBC (4.20-5.40) M/uL Hgb (12.0-16.0) g/dl Hct (37.0-47.0) % MCV (80.0-100.0) fL MCH (25.0-34.0) pg MCHC (32.0-36.0) g/dL RDW Std Deviation (36.4-46.3) fL RDW Coeff of Alysa (11.5-14.5) % Plt Count (130-400) K/uL MPV (9.4-12.4) fL Immature Gran % (Auto) % Neut % (Auto) % Lymph % (Auto) % Wythe % (Auto) % Eos % (Auto) % Baso % (Auto) % Neut # (Auto) (1.40-6.50) K/uL Lymph # (Auto) (1.2-3.4) K/uL Wythe # (Auto) (0.11-0.59) K/uL Eos # (Auto) (0-0.50) K/uL Baso # (Auto) (0-0.2) K/uL Immature Gran # (Auto) (0.01-0.20) K/uL Sodium (136-145) mmol/L Potassium (3.5-5.1) mmol/L Chloride (98-107) mmol/L Carbon Dioxide (21-32) mmol/L Anion Gap (3-11) BUN (6-23) mg/dl Creatinine (0.6-1.2) mg/dl Est Cr Clr Drug Dosing ml/min Est GFR ( Amer) ml/min Est GFR (Non-Af Amer) ml/min BUN/Creatinine Ratio (10-20) Glucose (70-99(Fasting)) mg/dl Lactate 0.7 (0.4-2.0) mmol/L Calcium (8.6-10.3) mg/dl Magnesium (1.7-2.4) mg/dl Total Bilirubin (0.2-1.0) mg/dl Direct Bilirubin (0-0.2) mg/dl AST (13-39) U/L ALT (7-52) U/L Alkaline Phosphatase (34-104) U/L Troponin I High Sens (0-14) pg/ml Total Protein (6.0-8.3) gm/dl Albumin (3.4-5.0) gm/dl Procalcitonin 0.41 (0-0.5) ng/ml Urine Color Yellow Urine Appearance Clear (Clear) Urine pH 5.0 (4.5-7.5) Ur Specific [place] 1.012 (1.000-1.030) Urine Protein Negative (Negative) Urine Glucose (UA) Negative (Negative) Urine Ketones Negative (Negative) Urine Blood Negative (Negative) Urine Nitrite Negative (Negative) Urine Bilirubin Negative (Negative) Urine Urobilinogen Negative (Negative) Ur Leukocyte Esterase Negative (Negative) Adenovirus (PCR) (NotDetected) B. pertussis DNA (PCR) (NotDetected) B.parapertussis DNA PCR (NotDetected) C. pneumoniae DNA (PCR) (NotDetected) Coronavirus OC43 (PCR) (NotDetected) Coronavirus HKU1 (PCR) (NotDetected) Coronavirus 229E (PCR) (NotDetected) SARS-CoV-2 (PCR) (NotDetected) Coronavirus NL63 (PCR) (NotDetected) Human Metapneumovir PCR (NotDetected) Influenza Type A (PCR) (NotDetected) Influenza Type B (PCR) (NotDetected) M. pneumoniae (PCR) (NotDetected) Parainfluenza 1 (PCR) (NotDetected) Parainfluenza 2 (PCR) (NotDetected) Parainfluenza 3 (PCR) (NotDetected) Parainfluenza 4 (PCR) (NotDetected) RSV (PCR) (NotDetected) Entero/Rhino (PCR) (NotDetected) Administered Medications Discontinued Medications Albuterol (Albut/Ipratrop 3mg/0.5mg Neb 3 Ml Vial) 3 ml NEB NOW STA; Protocol Stop: 09/20/22 07:38 Last Admin: 09/20/22 07:52 Dose: 3 ml Documented By: CHRISTINE Furosemide (Furosemide 40 Mg/4 Ml Vial) 40 mg IV ONE ONE Stop: 09/20/22 07:38 Last Admin: 09/20/22 07:53 Dose: 40 mg Documented By: CHRISTINE Imaging Data Radiologist's Impression: Chest X-Ray 09/20/22 07:11 XR chest 1V portable HISTORY: Sepsis COMPARISON: Chest 07/20/2022. FINDINGS: No pneumothorax. No pleural effusions. The cardiac silhouette remains mildly enlarged. 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 Calcifications within the aortic knob. Degenerative changes within the shoulders. There is mild central pulmonary vascular congestion without overt edema. No focal lung consolidations to suggest a pneumonia. IMPRESSION: Mild cardiomegaly with mild congestive change. This is similar to the prior study. ACT 112: Negative or not required by law. Electronically signed by: Alistair Chavez M.D. 09/20/2022 8:05 AM Discharge Plan Visit Data Chief Complaint: Shortness of Breath/Dyspnea Stated Complaint: HARD TIME BREATHING,FEVER,HX OF HEART FAILURE ED Provider: Erich Wilkes Discharge Problem: Acute dyspnea Forms Stand Alone Forms: [facility] Prescriptions Prescriptions: No Action aspirin 81 mg Tablet,Delayed Release (Dr/Ec) 81 mg PO HS metformin 500 mg tablet extended release 24 hr 1,000 mg PO BIDM coenzyme Q10 [CoQ-10] 100 mg Capsule 100 mg PO QAM Warren 3-6-9 1,200 mg Capsule 1 cap PO QDD ferrous sulfate 325 mg (65 mg iron) tablet 325 mg PO BID Qty: 60 0RF amiodarone 200 mg tablet 200 mg PO QAM hydralazine 100 mg tablet 100 mg PO TID pantoprazole 40 mg tablet,delayed release (DR/EC) 40 mg PO BID glimepiride 4 mg tablet 4 mg PO BID furosemide 40 mg Tablet 40 mg PO QAM Qty: 30 0RF carvedilol 6.25 mg Tablet 6.25 mg PO BID Qty: 60 0RF magnesium oxide 400 mg (241.3 mg magnesium) tablet 400 mg PO BID Qty: 60 0RF Rx Instructions: OTC clopidogrel 75 mg Tablet 75 mg PO QAM Qty: 30 0RF spironolactone 25 mg tablet 25 mg PO QAM Entresto 24-26 mg tablet 1 tab PO BID multivitamin Tablet 1 tab PO QAM atorvastatin 40 mg Tablet 40 mg PO QAM amlodipine 10 mg tablet 10 mg PO BID Referrals Referrals: Tiara Ochoa PA-C [Primary Care Provider] -
--- NOTE | 2022-09-20 08:06 | XRay Report ---
XR chest 1V portable HISTORY: Sepsis COMPARISON: Chest 07/20/2022. FINDINGS: No pneumothorax. No pleural effusions. The cardiac silhouette remains mildly enlarged. Ther e is an aortic valve prosthesis again noted. Calcifications within the aortic knob. Degenerative humphries ges within the shoulders. There is mild central pulmonary vascular congestion without overt edema. No focal lung consolidations to suggest a pneumonia. IMPRESSION: Mild cardiomegaly with mild congestive change. This is similar to the prior study. ACT 112: Negative or not required by law. Electronically signed by: Alistair Chavez M.D. 09/20/2022 8:05 AM
[2022-09-20 08:07] LABS: Basophils # (auto) 0.04 K/uL (0-0.2); Basophils % (auto) 0.2 %; Eosinophils # (auto) 0.16 K/uL (0-0.50); Eosinophils % (auto) 0.9 %; Hematocrit (blood only) 27.2 % (37.0-47.0); Hemoglobin 9.3 g/dl (12.0-16.0); Immature Granulocytes # (auto) 0.09 K/uL (0.01-0.20); Immature Granulocytes % (auto) 0.5 %; Lymphocytes % (auto) 3.7 %; Mean Corpuscular Hgb Conc 34.2 g/dL (32.0-36.0); Mean Corpuscular Volume 81.9 fL (80.0-100.0); Mean Platelet Volume 12.5 fL (9.4-12.4); Monocytes # (auto) 1.66 K/uL (0.11-0.59); Monocytes % (auto) 8.9 %; Neutrophils # (auto) 16.05 K/uL (1.40-6.50); Neutrophils % (auto) 85.8 %; Platelet Count 282 K/uL (130-400); RDW Standard Deviation 42.1 fL (36.4-46.3); Red Blood Count 3.32 M/uL (4.20-5.40)
[2022-09-20 08:27] LABS: Albumin Level 3.5 gm/dl (3.4-5.0); BUN Creatinine Ratio 31.7 (10-20); Bilirubin Direct 0.2 mg/dl (0-0.2); Bilirubin,Total 0.6 mg/dl (0.2-1.0); Creatinine Clr Calc Pharmacy 22.6 ml/min; Est GFR (African American) 30.3 ml/min; Est GFR (Non-African American) 26.1 ml/min; Magnesium 1.9 mg/dl (1.7-2.4); Potassium 5.1 mmol/L (3.5-5.1); Total Protein 6.6 gm/dl (6.0-8.3)
[2022-09-20 08:33] LABS: Troponin I High Sensitivity 20.7 pg/ml (0-14)
[2022-09-20 09:16] LABS: Adenovirus PCR Not Detected (NotDetected); Bordetella parapertussis PCR Not Detected (NotDetected); Bordetella pertussis PCR Not Detected (NotDetected); Chlamydia pneumoniae PCR Not Detected (NotDetected); Coronavirus 229E PCR Not Detected (NotDetected); Coronavirus CoV-2 (COVID19)PCR Not Detected (NotDetected); Coronavirus HKU1 PCR Not Detected (NotDetected); Coronavirus NL63 PCR Not Detected (NotDetected); Coronavirus OC43PCR Not Detected (NotDetected); Human Metapneumovirus PCR Not Detected (NotDetected); Influenza A PCR Not Detected (NotDetected); Influenza B PCR Not Detected (NotDetected); Mycoplasma pneumoniae PCR Not Detected (NotDetected); Parainfluenza Virus 1 PCR Not Detected (NotDetected); Parainfluenza Virus 2 PCR Not Detected (NotDetected); Parainfluenza Virus 3 PCR Not Detected (NotDetected); Parainfluenza Virus 4 PCR Not Detected (NotDetected); Respiratory Syncytial VirusPCR Not Detected (NotDetected); Rhinovirus/Enterovirus PCR Not Detected (NotDetected)
[2022-09-20 09:41] LABS: Appearance Urine Clear (Clear); Bilirubin Urine Negative (Negative); Blood Urine Negative (Negative); Color Urine Yellow; Glucose Urine UA Negative (Negative); Ketones Urine Negative (Negative); Leukocyte Esterase Urine Negative (Negative); Nitrite Urine Negative (Negative); Protein Urine Negative (Negative); Specific Gravity Urine 1.012 (1.000-1.030); Urobilinogen Urine Negative (Negative)
[2022-09-20] MEDS ORDERED: CEFEPIME 2,000 MG/20 ML VIAL IV STA (10:39)
--- NOTE | 2022-09-20 11:00 | History & Physical Report ---
Date of Service September 20, 2022 Assessment & Plan (1) Ischemic colitis: Plan: RLQ abdominal pain started over the weekend and actually improving. CT A/P showing progression of circumferential thickening of ascending colon and cecum progressed from June, occluded proximal SMA and concern for partial small bowel obstruction Consult general surgery - discussed with Dr Zhu Consult vascular surgery to determine need for IV heparin in setting of paroxysmal atrial fibrillation (2) Urinary retention: Plan: Spears catheter placed in ER due to PVR 400ml. Previously in urine retention in Feb admission also leading to HFpEF - recommend urology follow up for O/P urodynamics. (3) Acute respiratory failure with hypoxia: Plan: Suspect due to mild congestive pulmonary edema seen on CXR. Aim O2 sats > 90% (4) (HFpEF) heart failure with preserved ejection fraction: Plan: Acute on chronic suspect more due to urinary retention than problem with diuretic dosing or diet Continue her usual Lasix 40mg PO daily and spironolactone 25mg PO daily with spears catheter now in place. TTE performed in Jul, no need to repeat Strict I&Os Daily weights (5) LEV (acute kidney injury): Plan: Suspect due to urinary retention. Monitor BMP with spears catheter placement. (6) Paroxysmal atrial fibrillation: Plan: Not on anticoagulation due to GI bleeds and now maintaining sinus rhythm with amiodarone. (7) Type 2 diabetes mellitus with diabetic neuropathy, unspecified: Plan: Hold home glimepiride while NPO (8) Hypertension: Plan: Hold hydralazine and amlodipine while NPO Continue Entresto, Lasix, Carvedilol and spironolactone Plan VTE Prophylaxis - pending vascular consult Diet - NPO Disposition - admit to PCU Admission and Anticipated Discharge Date Admission Date: September 20, 2022 History of Present Illness Chief Complaint: Shortness of breath Primary Care Provider: Tiara Ochoa PA-C Adri Gould is an 82 year old female who presents to the ER with shortness of breath. However start of her occurred over the weekend with fever, diarrhea, nausea and vomiting that started after she took 2 Senokots for constipation and ate baked beans. She reports decreased appetite since this episode but her daughter has been pushing her to drink Pedialyte. Vomiting and diarrhea stopped after 1-2 days and "stomach ache" improved. She now reports only having some "sensitivity" in her right lower quadrant of her abdomen which she thinks has been going on intermittently since her femoral-femoral bypass operation in 2020. She reports usually having constipation with her bowels moving every 2-3 days with the help of a laxative. The main reason she came in today however was that overnight she has been getting progressively more short of breath. She denies any chest pain, orthopnea, PND, presyncope or palpitations. She denies any upper respiratory symptoms such as nasal congestion, cough, sinus pain or sore throat. No urinary symptoms. She is having some pain in her neck on the left side but it is not unusual for her to get back pain especially between her shoulder blades when she has been lying down as much as she has. In the ER she was diagnosed with acute HF and given Lasix 40mg IV, Cefepime given empirically for infection and duoneb given for possible reactive airway disease. She was referred to medicine for admission for hypoxia and CHF. Allergies Allergy/AdvReac Type Severity Reaction Status Date / Time fenofibrate AdvReac Intermediate INCREASED Verified 09/20/22 09:43 URINATION metoprolol AdvReac Intermediate VOMIT,DIARR Verified 09/20/22 09:43 HEA valsartan AdvReac Intermediate Weakness Verified 09/20/22 09:43 verapamil AdvReac Intermediate INCREASED Verified 09/20/22 09:43 URINATION Home Medications Medication Instructions Recorded Confirmed Type aspirin 81 mg tablet,delayed 81 mg PO HS 03/04/20 09/20/22 History release metformin 500 mg tablet,extended 1,000 mg PO BIDM 03/04/20 09/20/22 History release 24 hr coenzyme Q10 100 mg capsule 100 mg PO QAM 12/01/20 09/20/22 History (CoQ-10) fish, borage, flaxseed oils-omega 1 cap PO QDD 12/01/20 09/20/22 History 3,6,9 comb no.1 1,200 mg capsule (Trilla 3-6-9) atorvastatin 40 mg tablet 40 mg PO QAM 02/26/21 09/20/22 History multivitamin 1 tab PO QAM 02/26/21 09/20/22 History ferrous sulfate 325 mg (65 mg 325 mg PO BID #60 tabs 05/02/21 09/20/22 Rx iron) tablet amiodarone 200 mg tablet 200 mg PO QAM 07/01/21 09/20/22 History hydralazine 100 mg tablet 100 mg PO TID 07/01/21 09/20/22 History pantoprazole 40 mg tablet,delayed 40 mg PO BID 07/01/21 09/20/22 History release glimepiride 4 mg tablet 4 mg PO BID 12/21/21 09/20/22 History carvedilol 6.25 mg tablet 6.25 mg PO BID #60 tabs 12/27/21 09/20/22 Rx furosemide 40 mg tablet 40 mg PO QAM #30 tabs 12/27/21 09/20/22 Rx magnesium oxide 400 mg (241.3 mg 400 mg PO BID #60 tabs 12/27/21 09/20/22 Rx magnesium) tablet clopidogrel 75 mg tablet 75 mg PO QAM #30 tabs 03/06/22 09/20/22 Rx amlodipine 10 mg tablet 10 mg PO BID 06/20/22 09/20/22 History sacubitril 24 mg-valsartan 26 mg 1 tab PO BID 09/20/22 09/20/22 History tablet (Entresto) spironolactone 25 mg tablet 25 mg PO QAM 09/20/22 09/20/22 History Past Med/Surg History Medical History Acute non-ST elevation myocardial infarction (NSTEMI) Acute on chronic heart failure with preserved ejection fraction (HFpEF) Anemia Bradycardia CAD (coronary artery disease) CVA (cerebral vascular accident) (~2018) no deficits Elevated troponin Encounter for pre-operative examination Hyperlipemia Hypertension Hypoxia Myocardial infarct, old follows with Dr. Mcpherson Occlusion of right iliac artery PAD (peripheral artery disease) Pneumonia hx S/P angiogram of extremity (02/02/21) Type 2 diabetes mellitus with diabetic neuropathy, unspecified NIDDM Surgical History H/O removal of cyst right abdominal area History of bunionectomy of right great toe History of cardiac cath (~2018) History of heart artery stent (~2019) x1. at [facility]. Status post ORIF of fracture of ankle Family History Other No family history of adverse response to anesthesia Social History Smoking Status: Former smoker Tobacco Type: Cigarettes Second Hand Exposure: No; Hx Alcohol Use: No Hx Substance Use: No Preferred Language: Indonesian Communication Ability: Effective Communication Ability Comment: difficulty comprehending at times - dtr, Mamie is typically her caregiver Director Channel Required: No Beliefs That Will Affect Care: None marital status: / Current Living Situation: Family Current Living Situation Comment: currently moving in with daughter current occupational status: retired How many Children do You have: 1 Other Information That Helps Us Care for You: No Feels Safe at Home: Yes Safety Concerns: Feels Safe At This Time Assistive Devices: Walker Review of Systems Review of Systems: All systems reviewed & are unremarkable except as noted in HPI & below Physical Exam Constitutional: WD/WN, vitals as above Eyes: PERRL, conjunctivae normal, anicteric sclerae ENMT: external ear and nose normal, oropharynx normal Respiratory: normal respiratory effort Auscultation: + crackles (bibasal); no diminished lung sounds and no wheezes Cardiovascular: RRR, no murmur, no edema Gastrointestinal (Abdomen): Inspection/Auscultation: + abdomen distended Percussion/Palpation: + abdomen tender (RLQ), + guarding and abdomen soft; abdomen not rigid Musculoskeletal: no cyanosis or clubbing, extremities motor strength 5/5 Skin: no rashes, warm and dry Neurologic: moves all extremities and awake; no focal motor deficits and not confused Psychiatric: A+Ox3, euthymic affect Results & Data Results & Data Vital Signs (Past 12 Hours) Vital Signs Temp Pulse Resp BP Pulse Ox O2 Del Method O2 Flow Rate 09/20/22 10:30 70 20 174/78 H 95 Nasal Cannula 3 09/20/22 10:00 69 19 166/68 H 95 Nasal Cannula 3 09/20/22 09:30 69 17 157/76 H 95 Nasal Cannula 3 09/20/22 09:00 69 20 169/105 H 94 Nasal Cannula 3 09/20/22 08:30 68 20 166/80 H 95 Nasal Cannula 3 09/20/22 08:11 93 Nasal Cannula 3 09/20/22 08:10 69 20 87 L Room Air 09/20/22 07:30 69 24 181/75 H 96 Nasal Cannula 3 09/20/22 07:55 70 09/20/22 07:04 36.5 C 70 24 192/62 H 93 Room Air Laboratory Results Abnormal lab results 09/20/22 09/20/22 09/20/22 Range/Units 07:39 07:39 07:39 WBC 18.70 H (4.8-10.8) K/ul RBC 3.32 L (4.20-5.40) M/uL Hgb 9.3 L (12.0-16.0) g/dl Hct 27.2 L (37.0-47.0) % MPV 12.5 H (9.4-12.4) fL Neut # (Auto) 16.05 H (1.40-6.50) K/uL Lymph # (Auto) 0.70 L (1.2-3.4) K/uL [place] # (Auto) 1.66 H (0.11-0.59) K/uL APTT 32.3 H (21.0-31.0) Seconds Sodium 130 L (136-145) mmol/L BUN 57 H (6-23) mg/dl Creatinine 1.80 H (0.6-1.2) mg/dl BUN/Creatinine Ratio 31.7 H (10-20) Glucose 109 H (70-99(Fasting)) mg/dl POC Glucose (70-99) mg/dl Troponin I High Sens 20.7 H (0-14) pg/ml C-Reactive Protein (0-0.5) mg/dl B-Natriuretic Peptide (0-100) pg/ml 09/20/22 09/20/22 09/20/22 Range/Units 12:18 12:18 18:26 WBC (4.8-10.8) K/ul RBC (4.20-5.40) M/uL Hgb (12.0-16.0) g/dl Hct (37.0-47.0) % MPV (9.4-12.4) fL Neut # (Auto) (1.40-6.50) K/uL Lymph # (Auto) (1.2-3.4) K/uL [place] # (Auto) (0.11-0.59) K/uL APTT (21.0-31.0) Seconds Sodium (136-145) mmol/L BUN (6-23) mg/dl Creatinine (0.6-1.2) mg/dl BUN/Creatinine Ratio (10-20) Glucose (70-99(Fasting)) mg/dl POC Glucose 53 L* (70-99) mg/dl Troponin I High Sens (0-14) pg/ml C-Reactive Protein 29.77 H (0-0.5) mg/dl B-Natriuretic Peptide 953 H (0-100) pg/ml 09/20/22 Range/Units 18:48 WBC (4.8-10.8) K/ul RBC (4.20-5.40) M/uL Hgb (12.0-16.0) g/dl Hct (37.0-47.0) % MPV (9.4-12.4) fL Neut # (Auto) (1.40-6.50) K/uL Lymph # (Auto) (1.2-3.4) K/uL [place] # (Auto) (0.11-0.59) K/uL APTT (21.0-31.0) Seconds Sodium (136-145) mmol/L BUN (6-23) mg/dl Creatinine (0.6-1.2) mg/dl BUN/Creatinine Ratio (10-20) Glucose (70-99(Fasting)) mg/dl POC Glucose 178 H (70-99) mg/dl Troponin I High Sens (0-14) pg/ml C-Reactive Protein (0-0.5) mg/dl B-Natriuretic Peptide (0-100) pg/ml Diagnostic Findings XR chest 1V portable HISTORY: Sepsis COMPARISON: Chest 07/20/2022. FINDINGS: No pneumothorax. No pleural effusions. The cardiac silhouette remains mildly enlarged. 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 Calcifications within the aortic knob. Degenerative changes within the shoulders. There is mild central pulmonary vascular congestion without overt edema. No focal lung consolidations to suggest a pneumonia. IMPRESSION: Mild cardiomegaly with mild congestive change. This is similar to the prior study. ABDOMEN AND PELVIS CT WITH IV CONTRAST CT DOSE: 520.82 mGy.cm HISTORY: RLQ pain, prior colitis TECHNIQUE: Multiaxial CT images of the abdomen and pelvis were performed followi ng the use of intravenous contrast. A dose lowering technique was utilized adhering to the principles of ALARA. COMPARISON STUDY: Abdomen and pelvis CT 06/20/2022. FINDINGS: Mild cardiac megaly and mild interlobular septal thickening within the lung bases suggestive of mild pulmonary edema. There are trace bilateral pleural effusions. Dependent changes seen within the lower lobes posteriorly. An aortic valve prosthesis is noted. Diffuse body wall edema is noted. Small amount of ascites is noted. There is mild periportal edema. The main portal vein is patent. The gallbladder is mildly distended. There is a punctate gallstone suggested. No gallbladder wall thickening. No hepatic or splenic masses. The adrenal glands are unremarkable. No hydronephrosis. There is a punctate stone within the left kidney. Extensive calcified plaque within the normal caliber abdominal aorta. There is chronic occlusion of the right common iliac artery, unchanged. Multifocal stenosis within the left common iliac artery is again noted. There is a patent femorofemoral bypass graft. The proximal SMA is occluded. The mid to distal SMA is reconstituted through the pancreaticoduodenal arcade. The inferior mesenteric artery appears patent. Bladder is decompressed by a Spears catheter. The uterus and adnexa are unremarkable. There is progressive circumferential thickening within the ascending colon and cecum with pericolonic fat stranding. There appears to be pneumatosis involving the ascending colon which is new from the prior study. Therefore, these findings are highly suspicious for ischemic colitis. There is moderate to large amount well- formed stool within the proximal colon and terminal ileum. There are few dilated gas-filled loops of small bowel within the midabdomen. This may represent an ileus or partial small bowel obstruction. The distal small bowel loops are decompressed. IMPRESSION: 1. Moderate circumferential thickening of the ascending colon and cecum has progressed. There appears to be pneumatosis involving the ascending colon. In conjunction with the occluded proximal superior mesenteric artery, this is highly suspicious for an ischemic colitis. Surgical consultation recommended. 2. Pulmonary edema and trace bilateral pleural effusions. 3. Mild diffuse body wall edema and a small amount of ascites. 4. Mildly dilated gas-filled loops of small bowel within the midabdomen. This may represent an ileus or partial small bowel obstruction. 5. Additional findings as described above. Medications Administered ER medications given: Duoneb 3ml Furosemide 40mg IV Cefepime 2g IV ECG Rate (beats per minute): 70 Rhythm: normal sinus Findings: + nonspecific-ST abn Comparison ECG Date: from (Jul 20, 2022) Change: no significant change Code Status & VTE Plan Code Status Full PG Care Time/CCT Total # of Minutes Spent Total Time Spent with Patient: Total time spent is greater than 50% in coordination of care (as documented) at patient's floor/unit and/or counseling patient: Coding Level of Care Code 98241 INT INP/OBS CARE 3/75MIN Diagnoses Ischemic colitis K55.9 Urinary retention R33.9 Acute respiratory failure with hypoxia J96.01 (HFpEF) heart failure with preserved ejection fraction I50.30 LEV (acute kidney injury) N17.9 Paroxysmal atrial fibrillation I48.0 Type 2 diabetes mellitus with diabetic neuropathy, unspecified E11.40 Hypertension I10 Hypertension type: unspecified (8) Hypertension Hypertension type: unspecified Qualified Code(s): I10 - Essential (primary) hypertension
[2022-09-20] MEDS ORDERED: OPTIRAY 350 100ml IV ONE (11:36)
--- NOTE | 2022-09-20 12:19 | CT Scan Report ---
ABDOMEN AND PELVIS CT WITH IV CONTRAST CT DOSE: 520.82 mGy.cm HISTORY: RLQ pain, prior colitis TECHNIQUE: Multiaxial CT images of the abdomen and pelvis were performed following the use of intrave nous contrast. A dose lowering technique was utilized adhering to the principles of ALARA. COMPARISON STUDY: Abdomen and pelvis CT 06/20/2022. FINDINGS: Mild cardiac megaly and mild interlobular septal thickening within the lung bases suggestiv e of mild pulmonary edema. There are trace bilateral pleural effusions. Dependent changes seen within the lower lobes posteriorly. An aortic valve prosthesis is noted. Diffuse body wall edema is noted. Small amount of ascites is noted. There is mild periportal edema. The main portal vein is patent. The gallbladder is mildly distended. There is a punctate gallstone suggested. No gallbladder wall thicke miranda. No hepatic or splenic masses. The adrenal glands are unremarkable. No hydronephrosis. There is a punctate stone within the left kidney. Extensive calcified plaque within the normal caliber abdomin al aorta. There is chronic occlusion of the right common iliac artery, unchanged. Multifocal stenosis within the left common iliac artery is again noted. There is a patent femorofemoral bypass graft. Th e proximal SMA is occluded. The mid to distal SMA is reconstituted through the pancreaticoduodenal ar kamryn. The inferior mesenteric artery appears patent. Bladder is decompressed by a Castañeda catheter. The uterus and adnexa are unremarkable. There is progressive circumferential thickening within the ascen ding colon and cecum with pericolonic fat stranding. There appears to be pneumatosis involving the as cending colon which is new from the prior study. Therefore, these findings are highly suspicious for ischemic colitis. There is moderate to large amount well-formed stool within the proximal colon and t erminal ileum. There are few dilated gas-filled loops of small bowel within the midabdomen. This may represent an ileus or partial small bowel obstruction. The distal small bowel loops are decompressed. IMPRESSION: 1. Moderate circumferential thickening of the ascending colon and cecum has progressed. There appears to be pneumatosis involving the ascending colon. In conjunction with the occluded proximal superior mesenteric artery, this is highly suspicious for an ischemic colitis. Surgical consultation recommend ed. 2. Pulmonary edema and trace bilateral pleural effusions. 3. Mild diffuse body wall edema and a small amount of ascites. 4. Mildly dilated gas-filled loops of small bowel within the midabdomen. This may represent an ileus or partial small bowel obstruction. 5. Additional findings as described above. ACT 112: Negative or not required by law. Electronically signed by: Alistair Chavez M.D. 09/20/2022 12:17 PM
[2022-09-20] MEDS ORDERED: ACETAMINOPHEN 1,000 MG/100 ML VIAL IV STA (13:08)
[2022-09-20] MEDS ORDERED: PIPERACILLIN/TAZOBACTAM 4.5 GM in DEXTROSE 5% 100 ML IV ONE (13:15)
--- NOTE | 2022-09-20 13:56 | Surgery Consultation ---
Date of Consultation September 20, 2022 Assessment & Plan (1) Colitis: (2) Acute dyspnea: Plan 82 year-old female presented to emergency room with shortness of breath and history of vomiting and diarrhea about 5-7 days ago. Leukocytosis of 18K. Febrile. CT scan showing moderate circumferential wall thickening of the cecum and right colon with some pneumatosis concerning for ischemic colitis. Lactic acid normal. Exam with tenderness in the RLQ but no peritonitis, rigidity, or guarding. History of ischemic colitis of right colon in June 2022. Plan: Hospitalist admitting patient, would agrees with IV antibiotics No acute surgical intervention required at this time Continue conservative management with IV fluids, IV antibiotics, pain management as needed, antiemetics as needed. Closely follow abdominal examinations repeat am labs. Dr. Zhu has seen and examined pt, see addendum for further recommendations/plan. Supervising Physician Co-Signing Physician Notes Pt was personally seen with PA in the ER, physical exam personally performed. CT scan reviewed and interpreted - there is an arcade reconstituting SMA suggesting more chronic occlusion, bowel wall thickening of right colon is slightly progressed than prior CT, pneumatosis is present. Lactate normal. WBC count high at 18. Presented with shortness of breath. Does not have any abdominal pain but the abdomen is "sensitive" since taking laxatives to treat constipation. No nausea or vomiting, tolerating diet but with slight decrease in appetite, pos for fever. Abdominal exam lacks any peritoneal signs, no tenderness to palpation although is more sensitive on the right side. Discussed case via tiger text with Dr. Thompson - no indication for surgical intervention currently. Would treat for ischemic colitis with IVF as tolerated given cardiac status, IV antibiotics. OK to have full liquids. Will monitor. History of Present Illness Reason for Consultation: Ischemic colitis Requesting Physician: Dr. Thompson Attending Physician: Dr. Thompson History of Present Illness Adri is a 82 year-old female who presented to emergency room with complaint of shortness of breath and difficulty breathing. She states that she had diarrhea and vomiting a few days ago after taking medication for constipation. States she was having cramping abdominal pain after the loose stools but this has improved. States she has a fever. She was just recently admitted her in June for ischemic colitis. She has history of superior mesenteric artery stenosis with reconstitution and also a fem-fem bypass. Appetite has been low for a few days. Was able to eat soup last night. Currently states she is feeling better. Able to breath better after the lasix. Has spears catheter in. States she is not having any abdominal pain at this time. Chronically has RLQ abdominal pain. Denies of any nausea or vomiting. Allergies Allergy/AdvReac Type Severity Reaction Status Date / Time fenofibrate AdvReac Intermediate INCREASED Verified 09/20/22 09:43 URINATION metoprolol AdvReac Intermediate VOMIT,DIARR Verified 09/20/22 09:43 HEA valsartan AdvReac Intermediate Weakness Verified 09/20/22 09:43 verapamil AdvReac Intermediate INCREASED Verified 09/20/22 09:43 URINATION Home Medications Medication Instructions Recorded Confirmed Type aspirin 81 mg tablet,delayed 81 mg PO HS 03/04/20 09/20/22 History release metformin 500 mg tablet,extended 1,000 mg PO BIDM 03/04/20 09/20/22 History release 24 hr coenzyme Q10 100 mg capsule 100 mg PO QAM 12/01/20 09/20/22 History (CoQ-10) fish, borage, flaxseed oils-omega 1 cap PO QDD 12/01/20 09/20/22 History 3,6,9 comb no.1 1,200 mg capsule (Greene 3-6-9) atorvastatin 40 mg tablet 40 mg PO QAM 02/26/21 09/20/22 History multivitamin 1 tab PO QAM 02/26/21 09/20/22 History ferrous sulfate 325 mg (65 mg 325 mg PO BID #60 tabs 05/02/21 09/20/22 Rx iron) tablet amiodarone 200 mg tablet 200 mg PO QAM 07/01/21 09/20/22 History hydralazine 100 mg tablet 100 mg PO TID 07/01/21 09/20/22 History pantoprazole 40 mg tablet,delayed 40 mg PO BID 07/01/21 09/20/22 History release glimepiride 4 mg tablet 4 mg PO BID 12/21/21 09/20/22 History carvedilol 6.25 mg tablet 6.25 mg PO BID #60 tabs 12/27/21 09/20/22 Rx furosemide 40 mg tablet 40 mg PO QAM #30 tabs 12/27/21 09/20/22 Rx magnesium oxide 400 mg (241.3 mg 400 mg PO BID #60 tabs 12/27/21 09/20/22 Rx magnesium) tablet clopidogrel 75 mg tablet 75 mg PO QAM #30 tabs 03/06/22 09/20/22 Rx amlodipine 10 mg tablet 10 mg PO BID 06/20/22 09/20/22 History sacubitril 24 mg-valsartan 26 mg 1 tab PO BID 09/20/22 09/20/22 History tablet (Entresto) spironolactone 25 mg tablet 25 mg PO QAM 09/20/22 09/20/22 History Patient History Medical History Acute non-ST elevation myocardial infarction (NSTEMI) Acute on chronic heart failure with preserved ejection fraction (HFpEF) Anemia Bradycardia CAD (coronary artery disease) CVA (cerebral vascular accident) (~2018) no deficits Elevated troponin Encounter for pre-operative examination Hyperlipemia Hypertension Hypoxia Myocardial infarct, old follows with Dr. Mcpherson Occlusion of right iliac artery PAD (peripheral artery disease) Pneumonia hx S/P angiogram of extremity (02/02/21) Type 2 diabetes mellitus with diabetic neuropathy, unspecified NIDDM Surgical History H/O removal of cyst right abdominal area History of bunionectomy of right great toe History of cardiac cath (~2018) History of heart artery stent (~2018) x1. at [facility]. 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 Beliefs That Will Affect Care: None marital status: / Current Living Situation: Family Current Living Situation Comment: currently moving in with daughter current occupational status: retired How many Children do You have: 1 Feels Safe at Home: Yes Assistive Devices: Walker Review of Systems Review of Systems: All systems reviewed & are unremarkable except as noted in HPI & below Physical Exam Constitutional: well developed and + obese; no acute distress Respiratory: normal respiratory effort and + respiratory distress; no labored breathing and no retractions oxygen via nasal cannula Cardiovascular: Rate/Rhythm: regular rate and regular rhythm Heart Sounds: normal S1, normal S2 and + murmur Gastrointestinal (Abdomen): Inspection/Auscultation: abdomen normal to inspection and + abdominal surgical scar (right paramidline scar, bilateral groin scars); abdomen not distended and + abnormal bowel sounds Percussion/Palpation: + abdomen tender (mild tenderness in the RLQ) and abdomen soft; no guarding and abdomen not rigid Skin: no rashes, warm and dry Psychiatric: Orientation: alert and oriented x 3 Results & Data Vital Signs (Past 12 Hours) Vital Signs Temp Pulse Pulse Resp BP BP Pulse Ox 09/20/22 12:21 38.6 C H 72 20 150/73 H 95 09/20/22 11:00 36.8 C 74 26 H 163/78 H 96 09/20/22 11:00 70 24 163/78 H 95 09/20/22 10:30 70 20 174/78 H 95 09/20/22 10:00 69 19 166/68 H 95 09/20/22 09:30 69 17 157/76 H 95 09/20/22 09:00 69 20 169/105 H 94 09/20/22 08:30 68 20 166/80 H 95 09/20/22 08:11 93 09/20/22 08:10 69 20 87 L 09/20/22 07:30 69 24 181/75 H 96 09/20/22 07:55 70 09/20/22 07:04 36.5 C 70 24 192/62 H 93 O2 Del Method O2 Flow Rate 09/20/22 12:21 Nasal Cannula 3 09/20/22 11:00 Nasal Cannula 3 09/20/22 11:00 Nasal Cannula 3 09/20/22 10:30 Nasal Cannula 3 09/20/22 10:00 Nasal Cannula 3 09/20/22 09:30 Nasal Cannula 3 09/20/22 09:00 Nasal Cannula 3 09/20/22 08:30 Nasal Cannula 3 09/20/22 08:11 Nasal Cannula 3 09/20/22 08:10 Room Air 09/20/22 07:30 Nasal Cannula 3 09/20/22 07:55 09/20/22 07:04 Room Air Laboratory Results 09/20/22 09/20/22 09/20/22 Range/Units 12:18 12:18 08:59 WBC (4.8-10.8) K/ul RBC (4.20-5.40) M/uL Hgb (12.0-16.0) g/dl Hct (37.0-47.0) % MCV (80.0-100.0) fL MCH (25.0-34.0) pg MCHC (32.0-36.0) g/dL RDW Std Deviation (36.4-46.3) fL RDW Coeff of Alysa (11.5-14.5) % Plt Count (130-400) K/uL MPV (9.4-12.4) fL Immature Gran % (Auto) % Neut % (Auto) % Lymph % (Auto) % [place] % (Auto) % Eos % (Auto) % Baso % (Auto) % Neut # (Auto) (1.40-6.50) K/uL Lymph # (Auto) (1.2-3.4) K/uL [place]ether # (Auto) (0.11-0.59) K/uL Eos # (Auto) (0-0.50) K/uL Baso # (Auto) (0-0.2) K/uL Immature Gran # (Auto) (0.01-0.20) K/uL Sodium (136-145) mmol/L Potassium (3.5-5.1) mmol/L Chloride (98-107) mmol/L Carbon Dioxide (21-32) mmol/L Anion Gap (3-11) BUN (6-23) mg/dl Creatinine (0.6-1.2) mg/dl Est Cr Clr Drug Dosing ml/min Est GFR ( Amer) ml/min Est GFR (Non-Af Amer) ml/min BUN/Creatinine Ratio (10-20) Glucose (70-99(Fasting)) mg/dl Lactate (0.4-2.0) mmol/L Calcium (8.6-10.3) mg/dl Magnesium (1.7-2.4) mg/dl Total Bilirubin (0.2-1.0) mg/dl Direct Bilirubin (0-0.2) mg/dl AST (13-39) U/L ALT (7-52) U/L Alkaline Phosphatase (34-104) U/L Troponin I High Sens (0-14) pg/ml C-Reactive Protein 29.77 H (0-0.5) mg/dl B-Natriuretic Peptide 953 H (0-100) pg/ml Total Protein (6.0-8.3) gm/dl Albumin (3.4-5.0) gm/dl Procalcitonin (0-0.5) ng/ml Urine Color Yellow Urine Appearance Clear (Clear) Urine pH 5.0 (4.5-7.5) Ur Specific [place] 1.012 (1.000-1.030) Urine Protein Negative (Negative) Urine Glucose (UA) Negative (Negative) Urine Ketones Negative (Negative) Urine Blood Negative (Negative) Urine Nitrite Negative (Negative) Urine Bilirubin Negative (Negative) Urine Urobilinogen Negative (Negative) Ur Leukocyte Esterase Negative (Negative) Adenovirus (PCR) (NotDetected) B. pertussis DNA (PCR) (NotDetected) B.parapertussis DNA PCR (NotDetected) C. pneumoniae DNA (PCR) (NotDetected) Coronavirus OC43 (PCR) (NotDetected) Coronavirus HKU1 (PCR) (NotDetected) Coronavirus 229E (PCR) (NotDetected) SARS-CoV-2 (PCR) (NotDetected) Coronavirus NL63 (PCR) (NotDetected) Human Metapneumovir PCR (NotDetected) Influenza Type A (PCR) (NotDetected) Influenza Type B (PCR) (NotDetected) M. pneumoniae (PCR) (NotDetected) Parainfluenza 1 (PCR) (NotDetected) Parainfluenza 2 (PCR) (NotDetected) Parainfluenza 3 (PCR) (NotDetected) Parainfluenza 4 (PCR) (NotDetected) RSV (PCR) (NotDetected) Entero/Rhino (PCR) (NotDetected) 09/20/22 09/20/22 09/20/22 Range/Units 07:40 07:39 07:39 WBC (4.8-10.8) K/ul RBC (4.20-5.40) M/uL Hgb (12.0-16.0) g/dl Hct (37.0-47.0) % MCV (80.0-100.0) fL MCH (25.0-34.0) pg MCHC (32.0-36.0) g/dL RDW Std Deviation (36.4-46.3) fL RDW Coeff of Alysa (11.5-14.5) % Plt Count (130-400) K/uL MPV (9.4-12.4) fL Immature Gran % (Auto) % Neut % (Auto) % Lymph % (Auto) % [place] % (Auto) % Eos % (Auto) % Baso % (Auto) % Neut # (Auto) (1.40-6.50) K/uL Lymph # (Auto) (1.2-3.4) K/uL [place] # (Auto) (0.11-0.59) K/uL Eos # (Auto) (0-0.50) K/uL Baso # (Auto) (0-0.2) K/uL Immature Gran # (Auto) (0.01-0.20) K/uL Sodium 130 L (136-145) mmol/L Potassium 5.1 (3.5-5.1) mmol/L Chloride 100 (98-107) mmol/L Carbon Dioxide 22 (21-32) mmol/L Anion Gap 8 (3-11) BUN 57 H (6-23) mg/dl Creatinine 1.80 H (0.6-1.2) mg/dl Est Cr Clr Drug Dosing 22.6 ml/min Est GFR ( Amer) 30.3 ml/min Est GFR (Non-Af Amer) 26.1 ml/min BUN/Creatinine Ratio 31.7 H (10-20) Glucose 109 H (70-99(Fasting)) mg/dl Lactate 0.7 (0.4-2.0) mmol/L Calcium 9.0 (8.6-10.3) mg/dl Magnesium 1.9 (1.7-2.4) mg/dl Total Bilirubin 0.6 (0.2-1.0) mg/dl Direct Bilirubin 0.2 (0-0.2) mg/dl AST 18 (13-39) U/L ALT 23 (7-52) U/L Alkaline Phosphatase 96 (34-104) U/L Troponin I High Sens 20.7 H (0-14) pg/ml C-Reactive Protein (0-0.5) mg/dl B-Natriuretic Peptide (0-100) pg/ml Total Protein 6.6 (6.0-8.3) gm/dl Albumin 3.5 (3.4-5.0) gm/dl Procalcitonin 0.41 (0-0.5) ng/ml Urine Color Urine Appearance (Clear) Urine pH (4.5-7.5) Ur Specific [place] (1.000-1.030) Urine Protein (Negative) Urine Glucose (UA) (Negative) Urine Ketones (Negative) Urine Blood (Negative) Urine Nitrite (Negative) Urine Bilirubin (Negative) Urine Urobilinogen (Negative) Ur Leukocyte Esterase (Negative) Adenovirus (PCR) (NotDetected) B. pertussis DNA (PCR) (NotDetected) B.parapertussis DNA PCR (NotDetected) C. pneumoniae DNA (PCR) (NotDetected) Coronavirus OC43 (PCR) (NotDetected) Coronavirus HKU1 (PCR) (NotDetected) Coronavirus 229E (PCR) (NotDetected) SARS-CoV-2 (PCR) (NotDetected) Coronavirus NL63 (PCR) (NotDetected) Human Metapneumovir PCR (NotDetected) Influenza Type A (PCR) (NotDetected) Influenza Type B (PCR) (NotDetected) M. pneumoniae (PCR) (NotDetected) Parainfluenza 1 (PCR) (NotDetected) Parainfluenza 2 (PCR) (NotDetected) Parainfluenza 3 (PCR) (NotDetected) Parainfluenza 4 (PCR) (NotDetected) RSV (PCR) (NotDetected) Entero/Rhino (PCR) (NotDetected) 09/20/22 09/20/22 Range/Units 07:39 07:30 WBC 18.70 H (4.8-10.8) K/ul RBC 3.32 L (4.20-5.40) M/uL Hgb 9.3 L (12.0-16.0) g/dl Hct 27.2 L (37.0-47.0) % MCV 81.9 (80.0-100.0) fL MCH 28.0 (25.0-34.0) pg MCHC 34.2 (32.0-36.0) g/dL RDW Std Deviation 42.1 (36.4-46.3) fL RDW Coeff of Alysa 14.0 (11.5-14.5) % Plt Count 282 (130-400) K/uL MPV 12.5 H (9.4-12.4) fL Immature Gran % (Auto) 0.5 % Neut % (Auto) 85.8 % Lymph % (Auto) 3.7 % [place] % (Auto) 8.9 % Eos % (Auto) 0.9 % Baso % (Auto) 0.2 % Neut # (Auto) 16.05 H (1.40-6.50) K/uL Lymph # (Auto) 0.70 L (1.2-3.4) K/uL [place] # (Auto) 1.66 H (0.11-0.59) K/uL Eos # (Auto) 0.16 (0-0.50) K/uL Baso # (Auto) 0.04 (0-0.2) K/uL Immature Gran # (Auto) 0.09 (0.01-0.20) K/uL Sodium (136-145) mmol/L Potassium (3.5-5.1) mmol/L Chloride (98-107) mmol/L Carbon Dioxide (21-32) mmol/L Anion Gap (3-11) BUN (6-23) mg/dl Creatinine (0.6-1.2) mg/dl Est Cr Clr Drug Dosing ml/min Est GFR ( Amer) ml/min Est GFR (Non-Af Amer) ml/min BUN/Creatinine Ratio (10-20) Glucose (70-99(Fasting)) mg/dl Lactate (0.4-2.0) mmol/L Calcium (8.6-10.3) mg/dl Magnesium (1.7-2.4) mg/dl Total Bilirubin (0.2-1.0) mg/dl Direct Bilirubin (0-0.2) mg/dl AST (13-39) U/L ALT (7-52) U/L Alkaline Phosphatase (34-104) U/L Troponin I High Sens (0-14) pg/ml C-Reactive Protein (0-0.5) mg/dl B-Natriuretic Peptide (0-100) pg/ml Total Protein (6.0-8.3) gm/dl Albumin (3.4-5.0) gm/dl Procalcitonin (0-0.5) ng/ml Urine Color Urine Appearance (Clear) Urine pH (4.5-7.5) Ur Specific [place] (1.000-1.030) Urine Protein (Negative) Urine Glucose (UA) (Negative) Urine Ketones (Negative) Urine Blood (Negative) Urine Nitrite (Negative) Urine Bilirubin (Negative) Urine Urobilinogen (Negative) Ur Leukocyte Esterase (Negative) Adenovirus (PCR) Not Detected (NotDetected) B. pertussis DNA (PCR) Not Detected (NotDetected) B.parapertussis DNA PCR Not Detected (NotDetected) C. pneumoniae DNA (PCR) Not Detected (NotDetected) Coronavirus OC43 (PCR) Not Detected (NotDetected) Coronavirus HKU1 (PCR) Not Detected (NotDetected) Coronavirus 229E (PCR) Not Detected (NotDetected) SARS-CoV-2 (PCR) Not Detected (NotDetected) Coronavirus NL63 (PCR) Not Detected (NotDetected) Human Metapneumovir PCR Not Detected (NotDetected) Influenza Type A (PCR) Not Detected (NotDetected) Influenza Type B (PCR) Not Detected (NotDetected) M. pneumoniae (PCR) Not Detected (NotDetected) Parainfluenza 1 (PCR) Not Detected (NotDetected) Parainfluenza 2 (PCR) Not Detected (NotDetected) Parainfluenza 3 (PCR) Not Detected (NotDetected) Parainfluenza 4 (PCR) Not Detected (NotDetected) RSV (PCR) Not Detected (NotDetected) Entero/Rhino (PCR) Not Detected (NotDetected) Diagnostic Findings ABDOMEN AND PELVIS CT WITH IV CONTRAST CT DOSE: 520.82 mGy.cm HISTORY: RLQ pain, prior colitis TECHNIQUE: Multiaxial CT images of the abdomen and pelvis were performed following the use of intravenous contrast. A dose lowering technique was utilized adhering to the principles of ALARA. COMPARISON STUDY: Abdomen and pelvis CT 06/20/2022. FINDINGS: Mild cardiac megaly and mild interlobular septal thickening within the lung bases suggestive of mild pulmonary edema. There are trace bilateral pleural effusions. Dependent changes seen within the lower lobes posteriorly. An aortic valve prosthesis is noted. Diffuse body wall edema is noted. Small amount of ascites is noted. There is mild periportal edema. The main portal vein is patent. The gallbladder is mildly distended. There is a punctate gallstone suggested. No gallbladder wall thickening. No hepatic or splenic masses. The adrenal glands are unremarkable. No hydronephrosis. There is a punctate stone within the left kidney. Extensive calcified plaque within the normal caliber abdominal aorta. There is chronic occlusion of the right common iliac artery, unchanged. Multifocal stenosis within the left common iliac artery is again noted. There is a patent femorofemoral bypass graft. The proximal SMA is occluded. The mid to distal SMA is reconstituted through the pancreaticoduodenal arcade. The inferior mesenteric artery appears patent. Bladder is decompressed by a Spears catheter. The uterus and adnexa are unremarkable. There is progressive circumferential thickening within the ascending colon and cecum with pericolonic fat stranding. There appears to be pneumatosis involving the ascending colon which is new from the prior study. Therefore, these findings are highly suspicious for ischemic colitis. There is moderate to large amount well- formed stool within the proximal colon and terminal ileum. There are few dilated gas-filled loops of small bowel within the midabdomen. This may represent an ileus or partial small bowel obstruction. The distal small bowel loops are decompressed. IMPRESSION: 1. Moderate circumferential thickening of the ascending colon and cecum has progressed. There appears to be pneumatosis involving the ascending colon. In conjunction with the occluded proximal superior mesenteric artery, this is highly suspicious for an ischemic colitis. Surgical consultation recommended. 2. Pulmonary edema and trace bilateral pleural effusions. 3. Mild diffuse body wall edema and a small amount of ascites. 4. Mildly dilated gas-filled loops of small bowel within the midabdomen. This may represent an ileus or partial small bowel obstruction. 5. Additional findings as described above.
[2022-09-20 17:06] LABS: Partial Thromboplastin Ratio 1.1; Partial Thromboplastin Time 32.3 Seconds (21.0-31.0); Prothrombin Time 11.4 Seconds (9.0-12.0)
[2022-09-20] MEDS ORDERED: GLUCAGON FOR INJ 1 MG VIAL SQ PRN (17:21)
[2022-09-20] MEDS ORDERED: CARBOHYDRATES FOR HYPOGLYCEMIA PO PRN (17:21)
[2022-09-20] MEDS ORDERED: GLUCOSE 40% GEL 15 GM TUBE PO PRN (17:21)
[2022-09-20] MEDS ORDERED: DEXTROSE 50% 50 ML SYRINGE IV PRN (17:21)
[2022-09-20] MEDS ORDERED: PHARMACY GLYCEMIC MGMT CONSULT PRN (17:21)
[2022-09-20] MEDS ORDERED: GLUCOSE 10 TAB/TUBE PO PRN (17:21)
--- NOTE | 2022-09-20 18:06 | Electrocardiogram Report ---
Test Reason : Blood Pressure : / mmHG Vent. Rate : 070 BPM Atrial Rate : 070 BPM P-R Int : 186 ms QRS Dur : 098 ms QT Int : 414 ms P-R-T Axes : 057 044 068 degrees QTc Int : 447 ms Normal sinus rhythm Nonspecific ST abnormality Abnormal ECG When compared with ECG of 20-JUL-2022 10:10, Nonspecific T wave abnormality no longer evident in Lateral leads Confirmed by Dillon Otero ([id number]) on 09/20/2022 6:05:58 PM Referred By: REFERRED SELF Confirmed By:Renato Otero
[2022-09-20] MEDS: INSULIN ASPART PER UNIT CHARGE SC SCH ×2 (18:33→22:41)
[2022-09-20] MEDS: HEPARIN SODIUM/DEXTROSE 25,000 UNITS/500 ML BAG IV SCH (18:39)
[2022-09-20] MEDS: Heparin IV Adult Wt-Based Low-Dose *NO* Bolus Protocol IV SCH ×4 (18:46→20:52)
[2022-09-20] MEDS: ASPIRIN 81 MG ECTAB PO SCH (20:17)
[2022-09-20] MEDS: PANTOprazole 40 MG TAB PO SCH (20:17)
[2022-09-20] MEDS: VALSARTAN/SACUBITRIL 26/24MG TAB PO SCH (20:17)
[2022-09-20] MEDS: carvediloL 6.25 MG TAB PO SCH (20:17)
[2022-09-20] MEDS: PIPERACILLIN/TAZOBACTAM 4.5 GM in DEXTROSE 5% 100 ML IV SCH (22:47)
[2022-09-21] MEDS ORDERED: Nursing to Pharmacy Communication SCH ×2 (01:15→21:30)
[2022-09-21 01:59] LABS: Partial Thromboplastin Ratio 1.1; Partial Thromboplastin Time 30.9 Seconds (21.0-31.0)
[2022-09-21] MEDS ORDERED: HEPARIN SOD (PORCINE) 1000 UNIT/ML IV ONE ×2 (02:15→09:30)
[2022-09-21] MEDS: PIPERACILLIN/TAZOBACTAM 4.5 GM in DEXTROSE 5% 100 ML IV SCH ×2 (06:08→18:08)
[2022-09-21] MEDS: INSULIN ASPART PER UNIT CHARGE SC SCH ×3 (07:16→17:33)
[2022-09-21] MEDS: FUROSEMIDE 40 MG TAB PO SCH (08:09)
[2022-09-21] MEDS: ATORVASTATIN 40 MG TAB PO SCH (08:09)
[2022-09-21] MEDS: AMIODARONE 200 MG TAB PO SCH (08:09)
[2022-09-21] MEDS: PANTOprazole 40 MG TAB PO SCH ×2 (08:09→21:26)
[2022-09-21] MEDS: CLOPIDOGREL BISULFATE 75 MG TAB PO SCH (08:09)
[2022-09-21] MEDS: SPIRONOLACTONE 25 MG TAB PO SCH (08:09)
[2022-09-21] MEDS: VALSARTAN/SACUBITRIL 26/24MG TAB PO SCH ×2 (08:09→21:26)
[2022-09-21] MEDS: carvediloL 6.25 MG TAB PO SCH ×3 (08:09→21:28)
[2022-09-21 08:40] LABS: Basophils # (auto) 0.03 K/uL (0-0.2); Basophils % (auto) 0.2 %; Eosinophils # (auto) 0.13 K/uL (0-0.50); Hematocrit (blood only) 24.5 % (37.0-47.0); Hemoglobin 8.2 g/dl (12.0-16.0); Immature Granulocytes # (auto) 0.11 K/uL (0.01-0.20); Immature Granulocytes % (auto) 0.8 %; Lymphocytes # (auto) 0.71 K/uL (1.2-3.4); Lymphocytes % (auto) 5.3 %; Mean Corpuscular Hemoglobin 27.8 pg (25.0-34.0); Mean Corpuscular Hgb Conc 33.5 g/dL (32.0-36.0); Mean Corpuscular Volume 83.1 fL (80.0-100.0); Mean Platelet Volume 12.2 fL (9.4-12.4); Monocytes # (auto) 1.17 K/uL (0.11-0.59); Monocytes % (auto) 8.8 %; Neutrophils # (auto) 11.17 K/uL (1.40-6.50); Neutrophils % (auto) 83.9 %; Platelet Count 248 K/uL (130-400); RDW Coefficient of Variation 14.4 % (11.5-14.5); RDW Standard Deviation 43.8 fL (36.4-46.3); Red Blood Count 2.95 M/uL (4.20-5.40); White Blood Count 13.32 K/ul (4.8-10.8)
[2022-09-21 08:58] LABS: Albumin Globulin Ratio 1.1 (0.9-2); Albumin Level 2.9 gm/dl (3.4-5.0); BUN Creatinine Ratio 26.7 (10-20); Bilirubin,Total 0.5 mg/dl (0.2-1.0); Calcium 8.3 mg/dl (8.6-10.3); Creatinine Clr Calc Pharmacy 19.3 ml/min; Est GFR (African American) 24.2 ml/min; Est GFR (Non-African American) 20.8 ml/min; Globulin 2.7 gm/dl (2.5-4.0); Magnesium 1.8 mg/dl (1.7-2.4); Phosphorus 3.4 mg/dl (2.5-4.9); Potassium 4.7 mmol/L (3.5-5.1); Total Protein 5.6 gm/dl (6.0-8.3)
[2022-09-21 09:05] LABS: Partial Thromboplastin Ratio 1.2; Partial Thromboplastin Time 32.8 Seconds (21.0-31.0)
[2022-09-21] MEDS ORDERED: HEPARIN IV BOLUS 2,000 UNITS in SYRINGE 0 ML IV ONE (10:00)
--- NOTE | 2022-09-21 11:01 | Surgery Progress Note ---
Date of Service September 21, 2022 Assessment & Plan (1) Ischemic colitis: Plan: Appears to be improving on IV antibiotics and IVF with resolution of symptoms. Agree with advancement of diet. Consider bowel regimen to avoid constipation. Admission and Anticipated Discharge Date Admission Date: September 20, 2022 Subjective Feels better. Sitting in chair. No abdominal pain or discomfort. No nausea. Feeling hungry. Passing flatus but no bowel movement yesterday. Physical Exam Constitutional: WD/WN, vitals as above Respiratory: normal respiratory effort, lungs clear to auscultation Cardiovascular: Rate/Rhythm: regular rate and regular rhythm Gastrointestinal (Abdomen): Inspection/Auscultation: abdomen normal to inspect ion, + abdomen distended (mild) and normal bowel sounds Percussion/Palpation: abdomen soft; abdomen nontender and no guarding Results & Data Vital Signs (Past 12 Hours) Vital Signs Temp Pulse Resp BP Pulse Ox O2 Del Method O2 Flow Rate 09/21/22 08:00 Nasal Cannula 2 09/21/22 08:01 37.2 C 60 20 144/87 H 95 Nasal Cannula 2.0 09/21/22 03:13 37.7 C H 56 L 18 154/52 H 96 Nasal Cannula 09/20/22 23:23 37.8 C H 59 L 18 143/55 H 91 Nasal Cannula Laboratory Results 09/21/22 09/21/22 09/21/22 Range/Units 08:24 08:24 08:24 WBC 13.32 H (4.8-10.8) K/ul RBC 2.95 L (4.20-5.40) M/uL Hgb 8.2 L (12.0-16.0) g/dl Hct 24.5 L (37.0-47.0) % MCV 83.1 (80.0-100.0) fL MCH 27.8 (25.0-34.0) pg MCHC 33.5 (32.0-36.0) g/dL RDW Std Deviation 43.8 (36.4-46.3) fL RDW Coeff of Alysa 14.4 (11.5-14.5) % Plt Count 248 (130-400) K/uL MPV 12.2 (9.4-12.4) fL Immature Gran % (Auto) 0.8 % Neut % (Auto) 83.9 % Lymph % (Auto) 5.3 % [place] % (Auto) 8.8 % Eos % (Auto) 1.0 % Baso % (Auto) 0.2 % Neut # (Auto) 11.17 H (1.40-6.50) K/uL Lymph # (Auto) 0.71 L (1.2-3.4) K/uL [place] # (Auto) 1.17 H (0.11-0.59) K/uL Eos # (Auto) 0.13 (0-0.50) K/uL Baso # (Auto) 0.03 (0-0.2) K/uL Immature Gran # (Auto) 0.11 (0.01-0.20) K/uL PT (9.0-12.0) Seconds INR (0.9-1.1) APTT 32.8 H (21.0-31.0) Seconds PTT Ratio 1.2 Sodium (136-145) mmol/L Potassium (3.5-5.1) mmol/L Chloride (98-107) mmol/L Carbon Dioxide (21-32) mmol/L Anion Gap (3-11) BUN (6-23) mg/dl Creatinine (0.6-1.2) mg/dl Est Cr Clr Drug Dosing ml/min Est GFR ( Amer) ml/min Est GFR (Non-Af Amer) ml/min BUN/Creatinine Ratio (10-20) Glucose (70-99(Fasting)) mg/dl POC Glucose (70-99) mg/dl Estimat Average Glucose Pending Hemoglobin A1c Pending Calcium (8.6-10.3) mg/dl Phosphorus (2.5-4.9) mg/dl Magnesium (1.7-2.4) mg/dl Total Bilirubin (0.2-1.0) mg/dl AST (13-39) U/L ALT (7-52) U/L Alkaline Phosphatase (34-104) U/L C-Reactive Protein (0-0.5) mg/dl B-Natriuretic Peptide (0-100) pg/ml Total Protein (6.0-8.3) gm/dl Albumin (3.4-5.0) gm/dl Globulin (2.5-4.0) gm/dl Albumin/Globulin Ratio (0.9-2) 09/21/22 09/21/22 09/21/22 Range/Units 08:24 07:28 06:30 WBC (4.8-10.8) K/ul RBC (4.20-5.40) M/uL Hgb (12.0-16.0) g/dl Hct (37.0-47.0) % MCV (80.0-100.0) fL MCH (25.0-34.0) pg MCHC (32.0-36.0) g/dL RDW Std Deviation (36.4-46.3) fL RDW Coeff of Alysa (11.5-14.5) % Plt Count (130-400) K/uL MPV (9.4-12.4) fL Immature Gran % (Auto) % Neut % (Auto) % Lymph % (Auto) % [place] % (Auto) % Eos % (Auto) % Baso % (Auto) % Neut # (Auto) (1.40-6.50) K/uL Lymph # (Auto) (1.2-3.4) K/uL [place] # (Auto) (0.11-0.59) K/uL Eos # (Auto) (0-0.50) K/uL Baso # (Auto) (0-0.2) K/uL Immature Gran # (Auto) (0.01-0.20) K/uL PT (9.0-12.0) Seconds INR (0.9-1.1) APTT (21.0-31.0) Seconds PTT Ratio Sodium 131 L (136-145) mmol/L Potassium 4.7 (3.5-5.1) mmol/L Chloride 100 (98-107) mmol/L Carbon Dioxide 22 (21-32) mmol/L Anion Gap 9 (3-11) BUN 58 H (6-23) mg/dl Creatinine 2.17 H D (0.6-1.2) mg/dl Est Cr Clr Drug Dosing 19.3 ml/min Est GFR ( Amer) 24.2 ml/min Est GFR (Non-Af Amer) 20.8 ml/min BUN/Creatinine Ratio 26.7 H (10-20) Glucose 82 (70-99(Fasting)) mg/dl POC Glucose 93 68 L* (70-99) mg/dl Estimat Average Glucose Hemoglobin A1c Calcium 8.3 L (8.6-10.3) mg/dl Phosphorus 3.4 (2.5-4.9) mg/dl Magnesium 1.8 (1.7-2.4) mg/dl Total Bilirubin 0.5 (0.2-1.0) mg/dl AST 12 L (13-39) U/L ALT 17 (7-52) U/L Alkaline Phosphatase 75 (34-104) U/L C-Reactive Protein (0-0.5) mg/dl B-Natriuretic Peptide (0-100) pg/ml Total Protein 5.6 L (6.0-8.3) gm/dl Albumin 2.9 L (3.4-5.0) gm/dl Globulin 2.7 (2.5-4.0) gm/dl Albumin/Globulin Ratio 1.1 (0.9-2) 09/21/22 09/21/22 09/20/22 Range/Units 01:09 00:46 18:48 WBC (4.8-10.8) K/ul RBC (4.20-5.40) M/uL Hgb (12.0-16.0) g/dl Hct (37.0-47.0) % MCV (80.0-100.0) fL MCH (25.0-34.0) pg MCHC (32.0-36.0) g/dL RDW Std Deviation (36.4-46.3) fL RDW Coeff of Alysa (11.5-14.5) % Plt Count (130-400) K/uL MPV (9.4-12.4) fL Immature Gran % (Auto) % Neut % (Auto) % Lymph % (Auto) % [place] % (Auto) % Eos % (Auto) % Baso % (Auto) % Neut # (Auto) (1.40-6.50) K/uL Lymph # (Auto) (1.2-3.4) K/uL [place] # (Auto) (0.11-0.59) K/uL Eos # (Auto) (0-0.50) K/uL Baso # (Auto) (0-0.2) K/uL Immature Gran # (Auto) (0.01-0.20) K/uL PT (9.0-12.0) Seconds INR (0.9-1.1) APTT 30.9 (21.0-31.0) Seconds PTT Ratio 1.1 Sodium (136-145) mmol/L Potassium (3.5-5.1) mmol/L Chloride (98-107) mmol/L Carbon Dioxide (21-32) mmol/L Anion Gap (3-11) BUN (6-23) mg/dl Creatinine (0.6-1.2) mg/dl Est Cr Clr Drug Dosing ml/min Est GFR ( Amer) ml/min Est GFR (Non-Af Amer) ml/min BUN/Creatinine Ratio (10-20) Glucose (70-99(Fasting)) mg/dl POC Glucose 93 178 H (70-99) mg/dl Estimat Average Glucose Hemoglobin A1c Calcium (8.6-10.3) mg/dl Phosphorus (2.5-4.9) mg/dl Magnesium (1.7-2.4) mg/dl Total Bilirubin (0.2-1.0) mg/dl AST (13-39) U/L ALT (7-52) U/L Alkaline Phosphatase (34-104) U/L C-Reactive Protein (0-0.5) mg/dl B-Natriuretic Peptide (0-100) pg/ml Total Protein (6.0-8.3) gm/dl Albumin (3.4-5.0) gm/dl Globulin (2.5-4.0) gm/dl Albumin/Globulin Ratio (0.9-2) 09/20/22 09/20/22 09/20/22 Range/Units 18:26 12:18 12:18 WBC (4.8-10.8) K/ul RBC (4.20-5.40) M/uL Hgb (12.0-16.0) g/dl Hct (37.0-47.0) % MCV (80.0-100.0) fL MCH (25.0-34.0) pg MCHC (32.0-36.0) g/dL RDW Std Deviation (36.4-46.3) fL RDW Coeff of Alysa (11.5-14.5) % Plt Count (130-400) K/uL MPV (9.4-12.4) fL Immature Gran % (Auto) % Neut % (Auto) % Lymph % (Auto) % [place] % (Auto) % Eos % (Auto) % Baso % (Auto) % Neut # (Auto) (1.40-6.50) K/uL Lymph # (Auto) (1.2-3.4) K/uL [place] # (Auto) (0.11-0.59) K/uL Eos # (Auto) (0-0.50) K/uL Baso # (Auto) (0-0.2) K/uL Immature Gran # (Auto) (0.01-0.20) K/uL PT (9.0-12.0) Seconds INR (0.9-1.1) APTT (21.0-31.0) Seconds PTT Ratio Sodium (136-145) mmol/L Potassium (3.5-5.1) mmol/L Chloride (98-107) mmol/L Carbon Dioxide (21-32) mmol/L Anion Gap (3-11) BUN (6-23) mg/dl Creatinine (0.6-1.2) mg/dl Est Cr Clr Drug Dosing ml/min Est GFR ( Amer) ml/min Est GFR (Non-Af Amer) ml/min BUN/Creatinine Ratio (10-20) Glucose (70-99(Fasting)) mg/dl POC Glucose 53 L* (70-99) mg/dl Estimat Average Glucose Hemoglobin A1c Calcium (8.6-10.3) mg/dl Phosphorus (2.5-4.9) mg/dl Magnesium (1.7-2.4) mg/dl Total Bilirubin (0.2-1.0) mg/dl AST (13-39) U/L ALT (7-52) U/L Alkaline Phosphatase (34-104) U/L C-Reactive Protein 29.77 H (0-0.5) mg/dl B-Natriuretic Peptide 953 H (0-100) pg/ml Total Protein (6.0-8.3) gm/dl Albumin (3.4-5.0) gm/dl Globulin (2.5-4.0) gm/dl Albumin/Globulin Ratio (0.9-2) 09/20/22 Range/Units 07:39 WBC (4.8-10.8) K/ul RBC (4.20-5.40) M/uL Hgb (12.0-16.0) g/dl Hct (37.0-47.0) % MCV (80.0-100.0) fL MCH (25.0-34.0) pg MCHC (32.0-36.0) g/dL RDW Std Deviation (36.4-46.3) fL RDW Coeff of Alysa (11.5-14.5) % Plt Count (130-400) K/uL MPV (9.4-12.4) fL Immature Gran % (Auto) % Neut % (Auto) % Lymph % (Auto) % [place] % (Auto) % Eos % (Auto) % Baso % (Auto) % Neut # (Auto) (1.40-6.50) K/uL Lymph # (Auto) (1.2-3.4) K/uL [place] # (Auto) (0.11-0.59) K/uL Eos # (Auto) (0-0.50) K/uL Baso # (Auto) (0-0.2) K/uL Immature Gran # (Auto) (0.01-0.20) K/uL PT 11.4 (9.0-12.0) Seconds INR 1.0 (0.9-1.1) APTT 32.3 H (21.0-31.0) Seconds PTT Ratio 1.1 Sodium (136-145) mmol/L Potassium (3.5-5.1) mmol/L Chloride (98-107) mmol/L Carbon Dioxide (21-32) mmol/L Anion Gap (3-11) BUN (6-23) mg/dl Creatinine (0.6-1.2) mg/dl Est Cr Clr Drug Dosing ml/min Est GFR ( Amer) ml/min Est GFR (Non-Af Amer) ml/min BUN/Creatinine Ratio (10-20) Glucose (70-99(Fasting)) mg/dl POC Glucose (70-99) mg/dl Estimat Average Glucose Hemoglobin A1c Calcium (8.6-10.3) mg/dl Phosphorus (2.5-4.9) mg/dl Magnesium (1.7-2.4) mg/dl Total Bilirubin (0.2-1.0) mg/dl AST (13-39) U/L ALT (7-52) U/L Alkaline Phosphatase (34-104) U/L C-Reactive Protein (0-0.5) mg/dl B-Natriuretic Peptide (0-100) pg/ml Total Protein (6.0-8.3) gm/dl Albumin (3.4-5.0) gm/dl Globulin (2.5-4.0) gm/dl Albumin/Globulin Ratio (0.9-2)
[2022-09-21 11:41] LABS: Estimated Average Glucose 131 mg/dl; Hemoglobin A1C 6.2 % (4.5-5.6)
--- NOTE | 2022-09-21 14:20 | Pharmacy Report ---
Pharmacy Glycemic Short Note 2 - Date of Service September 21, 2022 - Glycemic Short BSG Results (Last 24 hours): 09/20/22 09/20/22 09/21/22 18:26 18:48 01:09 Glucose POC Glucose 53 L* 178 H 93 09/21/22 09/21/22 09/21/22 06:30 07:28 08:24 Glucose 82 POC Glucose 68 L* 93 09/21/22 09/21/22 09/21/22 11:25 11:27 11:50 Glucose POC Glucose 60 L* 58 L* 73 OUTPATIENT ANTIDIABETIC REGIMEN: * glimepiride 4 mg PO BID * metformin 1000 mg PO BIDM HbA1c: 6.2% (09/21/22) ASSESSMENT: * FH is an 82 year old female with ischemic colitis, currently undergoing conservative management * Very well-controlled T2DM as an outpatient, might consider discontinuation of glimepiride at discharge to simplify regimen and decrease risk of hypoglycemia * Patient has been intermittently hypoglycemic since time of admission * Consider dextrose fluids if not tolerating diet? * Conservative insulin (Novolog CF only) for now PLAN FOR INPATIENT GLYCEMIC CONTROL: * Hold outpatient oral diabetes medications * Basal insulin * hold * Bolus insulin * NovoLog per scale ACHS or Q6hrs while NPO * Goal Range: Low 120 mg/dL - High 160 mg/dL * Correction Factor: 45 mg/dL/unit * hold carb coverage
[2022-09-21 16:38] LABS: Partial Thromboplastin Ratio 1.3
[2022-09-21] MEDS ORDERED: SODIUM CHLORIDE 0.9% 1000ML 1,000 ML IV SCH (16:45)
[2022-09-21] MEDS: ASPIRIN 81 MG ECTAB PO SCH (21:26)
--- NOTE | 2022-09-21 22:31 | Hospitalist Progress Note ---
Date of Service September 21, 2022 Assessment & Plan (1) Ischemic colitis: Plan: RLQ abdominal pain started over the weekend and actually improving. CT A/P showing progression of circumferential thickening of ascending colon and cecum progressed from June, occluded proximal SMA and concern for partial small bowel obstruction Consult general surgery - discussed with Dr Zhu Consult vascular surgery to determine need for IV heparin in setting of paroxysmal atrial fibrillation Pain appears improved on 09/21, will continue above plan, supportive care, antibiotics. (2) Urinary retention: Plan: Spears catheter placed in ER due to PVR 400ml. Previously in urine retention in Feb admission also leading to HFpEF - recommend urology follow up for O/P urodynamics. (3) Acute respiratory failure with hypoxia: Plan: Suspect due to mild congestive pulmonary edema seen on CXR. Aim O2 sats > 90% (4) (HFpEF) heart failure with preserved ejection fraction: Plan: Acute on chronic suspect more due to urinary retention than problem with diuretic dosing or diet Continue her usual Lasix 40mg PO daily and spironolactone 25mg PO daily with spears catheter now in place. TTE performed in Jul, no need to repeat Strict I&Os Daily weights (5) LEV (acute kidney injury): Plan: Suspect due to urinary retention. Monitor BMP with spears catheter placement. (6) Paroxysmal atrial fibrillation: Plan: Not on anticoagulation due to GI bleeds and now maintaining sinus rhythm with amiodarone. (7) Type 2 diabetes mellitus with diabetic neuropathy, unspecified: Plan: Hold home glimepiride while NPO (8) Hypertension: Plan: Hold hydralazine and amlodipine while NPO Continue Entresto, Lasix, Carvedilol and spironolactone Plan VTE Prophylaxis -continue heparin Diet - NPO Disposition - admit to PCU Admission and Anticipated Discharge Date Admission Date: September 20, 2022 Subjective 82 yo female reports no new symptoms. She states her pain has improved. Review of Systems Review of Systems: All systems reviewed & are unremarkable except as noted in HPI & below Physical Exam Physical Exam: Constitutional: WD/WN, vitals as above Eyes: PERRL, conjunctivae normal, anicteric sclerae ENMT: external ear and nose normal, oropharynx normal Respiratory: normal respiratory effort Auscultation: + crackles (bibasal); no diminished lung sounds and no wheezes Cardiovascular: RRR, no murmur, no edema Gastrointestinal (Abdomen): Inspection/Auscultation: + abdomen distended Percussion/Palpation: + abdomen tender (RLQ), + guarding and abdomen soft; abdomen not rigid Musculoskeletal: no cyanosis or clubbing, extremities motor strength 5/5 Skin: no rashes, warm and dry Neurologic: moves all extremities and awake; no focal motor deficits and not confused Psychiatric: A+Ox3, euthymic affect Results & Data Results & Data Vital Signs (Past 12 Hours) Vital Signs Temp Pulse Resp BP Pulse Ox O2 Del Method O2 Flow Rate 09/21/22 21:28 55 L 09/21/22 19:27 36.6 C 58 L 18 140/66 93 Nasal Cannula 2 09/21/22 15:53 37.4 C 58 L 18 139/72 92 Nasal Cannula 2 09/21/22 11:09 58 L 09/21/22 11:36 36.7 C 50 L 17 124/53 L 94 Room Air PG Care Time/CCT Total # of Minutes Spent Total Time Spent with Patient: Total time spent is greater than 50% in coordination of care (as documented) at patient's floor/unit and/or counseling patient: Coding Level of Care Code 55554 SUB INP/OBS CARE 3/50MIN Diagnoses Ischemic colitis K55.9 Urinary retention R33.9 Acute respiratory failure with hypoxia J96.01 (HFpEF) heart failure with preserved ejection fraction I50.30 LEV (acute kidney injury) N17.9 Paroxysmal atrial fibrillation I48.0 Type 2 diabetes mellitus with diabetic neuropathy, unspecified E11.40 Hypertension I10 Hypertension type: unspecified Time Spent (min) 50 (8) Hypertension Hypertension type: unspecified Qualified Code(s): I10 - Essential (primary) hypertension
[2022-09-22 00:06] LABS: Partial Thromboplastin Ratio 1.1
[2022-09-22] MEDS ORDERED: HEPARIN SOD (PORCINE) 1000 UNIT/ML IV ONE (00:30)
[2022-09-22] MEDS: HEPARIN SODIUM/DEXTROSE 25,000 UNITS/500 ML BAG IV SCH (00:32)
[2022-09-22] MEDS: PIPERACILLIN/TAZOBACTAM 4.5 GM in DEXTROSE 5% 100 ML IV SCH (06:15)
[2022-09-22] MEDS: LACTATED RINGER'S 1,000 ML IV SCH ×2 (06:15→19:08)
[2022-09-22 07:03] LABS: Hematocrit (blood only) 23.5 % (37.0-47.0); Hemoglobin 7.7 g/dl (12.0-16.0); Mean Corpuscular Hemoglobin 27.9 pg (25.0-34.0); Mean Corpuscular Hgb Conc 32.8 g/dL (32.0-36.0); Mean Corpuscular Volume 85.1 fL (80.0-100.0); Platelet Count 259 K/uL (130-400); RDW Coefficient of Variation 14.4 % (11.5-14.5); RDW Standard Deviation 44.7 fL (36.4-46.3); Red Blood Count 2.76 M/uL (4.20-5.40); White Blood Count 11.93 K/ul (4.8-10.8)
[2022-09-22 07:16] LABS: C Reactive Protein 18.48 mg/dl (0-0.5); Creatinine Clr Calc Pharmacy 12.6 ml/min; Est GFR (African American) 14.2 ml/min; Est GFR (Non-African American) 12.3 ml/min; Potassium 4.3 mmol/L (3.5-5.1)
[2022-09-22 07:36] LABS: Partial Thromboplastin Ratio 1.4
[2022-09-22 07:37] LABS: Partial Thromboplastin Time 40.8 Seconds (21.0-31.0)
[2022-09-22] MEDS: INSULIN ASPART PER UNIT CHARGE SC SCH ×4 (07:43→20:41)
[2022-09-22 08:13] LABS: Hematocrit (blood only) 24.9 % (37.0-47.0); Hemoglobin 8.1 g/dl (12.0-16.0)
[2022-09-22] MEDS: ATORVASTATIN 40 MG TAB PO SCH (08:55)
[2022-09-22] MEDS: CLOPIDOGREL BISULFATE 75 MG TAB PO SCH (08:55)
[2022-09-22] MEDS: AMIODARONE 200 MG TAB PO SCH (08:55)
[2022-09-22] MEDS: SPIRONOLACTONE 25 MG TAB PO SCH (08:55)
[2022-09-22] MEDS: VALSARTAN/SACUBITRIL 26/24MG TAB PO SCH ×2 (08:55→20:38)
[2022-09-22] MEDS: PANTOprazole 40 MG TAB PO SCH ×2 (08:55→20:38)
[2022-09-22] MEDS: carvediloL 6.25 MG TAB PO SCH ×2 (08:55→20:39)
[2022-09-22] MEDS: FUROSEMIDE 40 MG TAB PO SCH (08:55)
--- NOTE | 2022-09-22 13:08 | Pharmacy Report ---
Pharmacy Glycemic Short Note 2 - Date of Service September 22, 2022 - Glycemic Short BSG Results (Last 24 hours): 09/21/22 09/21/22 09/22/22 16:31 20:21 06:33 Glucose 74 POC Glucose 215 H 203 H 09/22/22 09/22/22 07:16 11:35 Glucose POC Glucose 86 200 H OUTPATIENT ANTIDIABETIC REGIMEN: * glimepiride 4 mg PO BID * metformin 1000 mg PO BIDM HbA1c: 6.2% (09/21/22) ASSESSMENT: 09/22/22: * BSGs trended up throughout the day yesterday * Received 2 units of bolus insulin only * Fasting BSG of 86 mg/dL this morning, will continue to hold off on basal at this time * Given BSG up-trend, will add a conservative carb coverage to Novolog today 09/21/22: * FH is an 82 year old female with ischemic colitis, currently undergoing conservative management * Very well-controlled T2DM as an outpatient, might consider discontinuation of glimepiride at discharge to simplify regimen and decrease risk of hypoglycemia * Patient has been intermittently hypoglycemic since time of admission * Consider dextrose fluids if not tolerating diet? * Conservative insulin (Novolog CF only) for now PLAN FOR INPATIENT GLYCEMIC CONTROL: * Hold outpatient oral diabetes medications * Basal insulin * hold * Bolus insulin * NovoLog per scale ACHS or Q6hrs while NPO * Goal Range: Low 120 mg/dL - High 150 mg/dL * Correction Factor: 45 mg/dL/unit * Nutritional / Prandial insulin per carb ratio of 1 unit per 20 grams CHO consumed
--- NOTE | 2022-09-22 13:30 | Surgery Progress Note ---
Date of Service September 22, 2022 Assessment & Plan (1) Ischemic colitis: Plan: Appears to be improving. Would advance to full liquid diet today. Continue antibiotics. Admission and Anticipated Discharge Date Admission Date: September 20, 2022 Subjective Feels well. No abdominal pain. Sitting in chair. Hungry and hoping to advance diet. No nausea or vomiting. Heparin drip had been started and then stopped due to slight decrease in hemoglobin. Physical Exam Constitutional: WD/WN, vitals as above Respiratory: normal respiratory effort, lungs clear to auscultation Cardiovascular: Rate/Rhythm: regular rate and regular rhythm Gastrointestinal (Abdomen): Inspection/Auscultation: abdomen normal to inspection, + abdomen distended (mild) and normal bowel sounds Percussion/Palpation: abdomen soft; abdomen nontender and no guarding Results & Data Vital Signs (Past 12 Hours) Vital Signs Temp Pulse Pulse Resp BP Pulse Ox O2 Del Method 09/22/22 12:05 36.8 C 50 L 19 138/51 L 93 Room Air 09/22/22 08:00 56 L 09/22/22 09:42 Nasal Cannula 09/22/22 07:10 36.6 C 55 L 18 152/62 H 97 Nasal Cannula 09/22/22 03:24 37.2 C 55 L 18 143/69 H 98 Nasal Cannula O2 Flow Rate 09/22/22 12:05 09/22/22 08:00 09/22/22 09:42 2 09/22/22 07:10 09/22/22 03:24 2 Laboratory Results Abnormal lab results 09/21/22 09/21/22 09/21/22 Range/Units 15:45 16:31 20:21 WBC (4.8-10.8) K/ul RBC (4.20-5.40) M/uL Hgb (12.0-16.0) g/dl Hct (37.0-47.0) % APTT 36.0 H (21.0-31.0) Seconds Sodium (136-145) mmol/L BUN (6-23) mg/dl Creatinine (0.6-1.2) mg/dl POC Glucose 215 H 203 H (70-99) mg/dl Calcium (8.6-10.3) mg/dl C-Reactive Protein (0-0.5) mg/dl 09/21/22 09/22/2209/22/23 Range/Units 23:06 06:33 06:33 WBC 11.93 H (4.8-10.8) K/ul RBC 2.76 L (4.20-5.40) M/uL Hgb 7.7 L (12.0-16.0) g/dl Hct 23.5 L (37.0-47.0) % APTT 32.0 H (21.0-31.0) Seconds Sodium 129 L (136-145) mmol/L BUN 64 H (6-23) mg/dl Creatinine 3.36 H D (0.6-1.2) mg/dl POC Glucose (70-99) mg/dl Calcium 8.0 L (8.6-10.3) mg/dl C-Reactive Protein 18.48 H (0-0.5) mg/dl 09/22/22 09/22/22 09/22/22 Range/Units 06:33 07:49 11:35 WBC (4.8-10.8) K/ul RBC (4.20-5.40) M/uL Hgb 8.1 L (12.0-16.0) g/dl Hct 24.9 L (37.0-47.0) % APTT 40.8 H* (21.0-31.0) Seconds Sodium (136-145) mmol/L BUN (6-23) mg/dl Creatinine (0.6-1.2) mg/dl POC Glucose 200 H (70-99) mg/dl Calcium (8.6-10.3) mg/dl C-Reactive Protein (0-0.5) mg/dl
[2022-09-22 18:27] LABS: BUN Creatinine Ratio 16.4 (10-20); Calcium 8.4 mg/dl (8.6-10.3); Creatinine Clr Calc Pharmacy 10.7 ml/min; Est GFR (African American) 11.6 ml/min; Potassium 4.8 mmol/L (3.5-5.1)
[2022-09-22] MEDS: CIPROFLOXACIN 500 MG TAB PO SCH (18:32)
[2022-09-22] MEDS: metroNIDAZOLE 500 MG TAB PO SCH (20:38)
[2022-09-22] MEDS: ASPIRIN 81 MG ECTAB PO SCH (20:40)
--- NOTE | 2022-09-22 21:05 | Hospitalist Progress Note ---
Date of Service September 22, 2022 Assessment & Plan (1) Ischemic colitis: Plan: RLQ abdominal pain started over the weekend and actually improving. CT A/P showing progression of circumferential thickening of ascending colon and cecum progressed from June, occluded proximal SMA and concern for partial small bowel obstruction Consult general surgery - discussed with Dr Zhu Consult vascular surgery to determine need for IV heparin in setting of paroxysmal atrial fibrillation Pain appears improved on 09/22, will continue above plan, supportive care, antibiotics. Given diarrhea, will switch to PO flagyl and cipro and will monitor her clinical progression. updaqted family and discussed with Gen Surgery (2) Urinary retention: Plan: Spears catheter placed in ER due to PVR 400ml. Previously in urine retention in Jul admission also leading to HFpEF - recommend urology follow up for O/P urodynamics. (3) Acute respiratory failure with hypoxia: Plan: Suspect due to mild congestive pulmonary edema seen on CXR. Aim O2 sats > 90% (4) (HFpEF) heart failure with preserved ejection fraction: Plan: Acute on chronic suspect more due to urinary retention than problem with diuretic dosing or diet Continue her usual Lasix 40mg PO daily and spironolactone 25mg PO daily with spears catheter now in place. TTE performed in Jul, no need to repeat Strict I&Os Daily weights (5) LEV (acute kidney injury): Plan: Suspect due to urinary retention. Monitor BMP with spears catheter placement. (6) Paroxysmal atrial fibrillation: Plan: Not on anticoagulation due to GI bleeds and now maintaining sinus rhythm with amiodarone. (7) Type 2 diabetes mellitus with diabetic neuropathy, unspecified: Plan: Hold home glimepiride (8) Hypertension: Plan: Hold hydralazine and amlodipine while NPO Continue Entresto, Lasix, Carvedilol and spironolactone Plan VTE Prophylaxis -continue heparin Diet - NPO Disposition - admit to PCU Admission and Anticipated Discharge Date Admission Date: September 20, 2022 Subjective 82 yo female reports feeling slightly better in regards to her pain. Review of Systems Review of Systems: All systems reviewed & are unremarkable except as noted in HPI & below Physical Exam Physical Exam: Constitutional: WD/WN, vitals as above Eyes: PERRL, conjunctivae normal, anicteric sclerae ENMT: external ear and nose normal, oropharynx normal Respiratory: normal respiratory effort Auscultation: + crackles (bibasal); no diminished lung sounds and no wheezes Cardiovascular: RRR, no murmur, no edema Gastrointestinal (Abdomen): Inspection/Auscultation: + abdomen distended Percussion/Palpation: + abdomen tender (RLQ), + guarding and abdomen soft; abdomen not rigid Musculoskeletal: no cyanosis or clubbing, extremities motor strength 5/5 Skin: no rashes, warm and dry Neurologic: moves all extremities and awake; no focal motor deficits and not confused Psychiatric: A+Ox3, euthymic affect Results & Data Results & Data Vital Signs (Past 12 Hours) Vital Signs Temp Pulse Pulse Resp BP Pulse Ox O2 Del Method 09/22/22 19:33 36.7 C 57 L 20 165/74 H 97 Room Air 09/22/22 16:27 51 L 09/22/22 16:03 36.9 C 49 L 18 142/43 H 94 Room Air 09/22/22 12:05 36.8 C 50 L 19 138/51 L 93 Room Air 09/22/22 09:42 Nasal Cannula O2 Flow Rate 09/22/22 19:33 09/22/22 16:27 09/22/22 16:03 09/22/22 12:05 09/22/22 09:42 2 PG Care Time/CCT Total # of Minutes Spent Total Time Spent with Patient: Total time spent is greater than 50% in coordination of care (as documented) at patient's floor/unit and/or counseling patient: Coding Level of Care Code 27605 SUB INP/OBS CARE 3/50MIN Diagnoses Ischemic colitis K55.9 Urinary retention R33.9 Acute respiratory failure with hypoxia J96.01 (HFpEF) heart failure with preserved ejection fraction I50.30 LEV (acute kidney injury) N17.9 Paroxysmal atrial fibrillation I48.0 Type 2 diabetes mellitus with diabetic neuropathy, unspecified E11.40 Hypertension I10 Hypertension type: unspecified Time Spent (min) 50 (8) Hypertension Hypertension type: unspecified Qualified Code(s): I10 - Essential (primary) hypertension
[2022-09-22] MEDS ORDERED: INSULIN ASPART PER UNIT CHARGE SC SCH (21:30)
[2022-09-22] MEDS: hydrALAZINE HCL 20 MG/ML VIAL IV PRN (23:19)
[2022-09-23] MEDS: ACETAMINOPHEN 325 MG TAB PO PRN (00:29)
[2022-09-23 07:10] LABS: Basophils # (auto) 0.03 K/uL (0-0.2); Basophils % (auto) 0.3 %; Eosinophils # (auto) 0.27 K/uL (0-0.50); Eosinophils % (auto) 2.3 %; Hematocrit (blood only) 25.8 % (37.0-47.0); Hemoglobin 8.6 g/dl (12.0-16.0); Immature Granulocytes # (auto) 0.19 K/uL (0.01-0.20); Immature Granulocytes % (auto) 1.6 %; Lymphocytes # (auto) 0.88 K/uL (1.2-3.4); Lymphocytes % (auto) 7.5 %; Mean Corpuscular Hemoglobin 28.2 pg (25.0-34.0); Mean Corpuscular Hgb Conc 33.3 g/dL (32.0-36.0); Mean Corpuscular Volume 84.6 fL (80.0-100.0); Mean Platelet Volume 11.9 fL (9.4-12.4); Monocytes # (auto) 0.84 K/uL (0.11-0.59); Monocytes % (auto) 7.2 %; Neutrophils # (auto) 9.46 K/uL (1.40-6.50); Neutrophils % (auto) 81.1 %; Platelet Count 343 K/uL (130-400); RDW Coefficient of Variation 14.1 % (11.5-14.5); RDW Standard Deviation 43.6 fL (36.4-46.3); Red Blood Count 3.05 M/uL (4.20-5.40); White Blood Count 11.67 K/ul (4.8-10.8)
[2022-09-23 07:30] LABS: C Reactive Protein 12.31 mg/dl (0-0.5); Calcium 8.3 mg/dl (8.6-10.3); Est GFR (African American) 10.7 ml/min; Est GFR (Non-African American) 9.2 ml/min; Potassium 4.5 mmol/L (3.5-5.1)
[2022-09-23] MEDS: AMIODARONE 200 MG TAB PO SCH (08:04)
[2022-09-23] MEDS: ATORVASTATIN 40 MG TAB PO SCH (08:05)
[2022-09-23] MEDS: carvediloL 6.25 MG TAB PO SCH ×2 (08:05→21:13)
[2022-09-23] MEDS: CLOPIDOGREL BISULFATE 75 MG TAB PO SCH (08:05)
[2022-09-23] MEDS: metroNIDAZOLE 500 MG TAB PO SCH ×3 (08:05→21:11)
[2022-09-23] MEDS: VALSARTAN/SACUBITRIL 26/24MG TAB PO SCH (08:06)
[2022-09-23] MEDS: PANTOprazole 40 MG TAB PO SCH ×2 (08:06→21:11)
[2022-09-23] MEDS: INSULIN ASPART PER UNIT CHARGE SC SCH ×4 (08:12→21:26)
--- NOTE | 2022-09-23 10:45 | Surgery Progress Note ---
Date of Service September 23, 2022 Assessment & Plan (1) Ischemic colitis: Plan: Appears to be improving. no abdominal pain abdominal exam soft, nontender tolerating advancement of diet Would continue soft diet continue po antibiotics continue current medical management Discussed with Dr. Perdue who agrees with above. Admission and Anticipated Discharge Date Admission Date: September 20, 2022 Subjective feeling slightly fatigued no abdominal pain no n,v tolerated soft diet without pain Physical Exam Constitutional: WD/WN, vitals as above cooperative, comfortable and + overweight; no acute distress and not ill appearing Gastrointestinal (Abdomen): Inspection/Auscultation: abdomen normal to inspection and + hypoactive bowel sounds; abdomen not distended and + abnormal bowel sounds Percussion/Palpation: abdomen soft; abdomen nontender, no guarding and abdomen not rigid Skin: no rashes, warm and dry Results & Data Vital Signs (Past 12 Hours) Vital Signs Temp Pulse Pulse Resp BP Pulse Ox O2 Del Method 09/23/22 08:00 49 L 09/23/22 07:30 36.5 C 58 L 16 169/85 H 93 Room Air 09/23/22 03:01 36.4 C L 62 18 154/73 H 97 Nasal Cannula 09/22/22 23:43 158/66 H 09/22/22 22:59 59 L 09/22/22 22:53 36.8 C 89 22 185/61 H 95 Nasal Cannula O2 Flow Rate 09/23/22 08:00 09/23/22 07:30 09/23/22 03:01 1 09/22/22 23:43 09/22/22 22:59 09/22/22 22:53 1 Laboratory Results 09/23/22 09/23/22 09/23/22 Range/Units 07:37 06:32 06:32 WBC (4.8-10.8) K/ul RBC (4.20-5.40) M/uL Hgb (12.0-16.0) g/dl Hct (37.0-47.0) % MCV (80.0-100.0) fL MCH (25.0-34.0) pg MCHC (32.0-36.0) g/dL RDW Std Deviation (36.4-46.3) fL RDW Coeff of Alysa (11.5-14.5) % Plt Count (130-400) K/uL MPV (9.4-12.4) fL Immature Gran % (Auto) % Neut % (Auto) % Lymph % (Auto) % [place] % (Auto) % Eos % (Auto) % Baso % (Auto) % Neut # (Auto) (1.40-6.50) K/uL Lymph # (Auto) (1.2-3.4) K/uL [place] # (Auto) (0.11-0.59) K/uL Eos # (Auto) (0-0.50) K/uL Baso # (Auto) (0-0.2) K/uL Immature Gran # (Auto) (0.01-0.20) K/uL Sodium 126 L (136-145) mmol/L Potassium 4.5 (3.5-5.1) mmol/L Chloride 97 L (98-107) mmol/L Carbon Dioxide 20 L (21-32) mmol/L Anion Gap 9 (3-11) BUN 68 H (6-23) mg/dl Creatinine 4.25 H (0.6-1.2) mg/dl Est Cr Clr Drug Dosing 10.0 ml/min Est GFR ( Amer) 10.7 ml/min Est GFR (Non-Af Amer) 9.2 ml/min BUN/Creatinine Ratio 16.0 (10-20) Glucose 78 (70-99(Fasting)) mg/dl POC Glucose 125 H (70-99) mg/dl Calcium 8.3 L (8.6-10.3) mg/dl C-Reactive Protein 12.31 H (0-0.5) mg/dl B-Natriuretic Peptide 1121 H (0-100) pg/ml 09/23/22 09/22/22 09/22/22 Range/Units 06:32 20:37 17:24 WBC 11.67 H (4.8-10.8) K/ul RBC 3.05 L (4.20-5.40) M/uL Hgb 8.6 L (12.0-16.0) g/dl Hct 25.8 L (37.0-47.0) % MCV 84.6 (80.0-100.0) fL MCH 28.2 (25.0-34.0) pg MCHC 33.3 (32.0-36.0) g/dL RDW Std Deviation 43.6 (36.4-46.3) fL RDW Coeff of Alysa 14.1 (11.5-14.5) % Plt Count 343 (130-400) K/uL MPV 11.9 (9.4-12.4) fL Immature Gran % (Auto) 1.6 % Neut % (Auto) 81.1 % Lymph % (Auto) 7.5 % [place] % (Auto) 7.2 % Eos % (Auto) 2.3 % Baso % (Auto) 0.3 % Neut # (Auto) 9.46 H (1.40-6.50) K/uL Lymph # (Auto) 0.88 L (1.2-3.4) K/uL [place] # (Auto) 0.84 H (0.11-0.59) K/uL Eos # (Auto) 0.27 (0-0.50) K/uL Baso # (Auto) 0.03 (0-0.2) K/uL Immature Gran # (Auto) 0.19 (0.01-0.20) K/uL Sodium 126 L (136-145) mmol/L Potassium 4.8 (3.5-5.1) mmol/L Chloride 98 (98-107) mmol/L Carbon Dioxide 20 L (21-32) mmol/L Anion Gap 8 (3-11) BUN 65 H (6-23) mg/dl Creatinine 3.97 H D (0.6-1.2) mg/dl Est Cr Clr Drug Dosing 10.7 ml/min Est GFR ( Amer) 11.6 ml/min Est GFR (Non-Af Amer) 10.0 ml/min BUN/Creatinine Ratio 16.4 (10-20) Glucose 146 H (70-99(Fasting)) mg/dl POC Glucose 156 H (70-99) mg/dl Calcium 8.4 L (8.6-10.3) mg/dl C-Reactive Protein (0-0.5) mg/dl B-Natriuretic Peptide (0-100) pg/ml 09/22/22 09/22/22 Range/Units 16:22 11:35 WBC (4.8-10.8) K/ul RBC (4.20-5.40) M/uL Hgb (12.0-16.0) g/dl Hct (37.0-47.0) % MCV (80.0-100.0) fL MCH (25.0-34.0) pg MCHC (32.0-36.0) g/dL RDW Std Deviation (36.4-46.3) fL RDW Coeff of Alysa (11.5-14.5) % Plt Count (130-400) K/uL MPV (9.4-12.4) fL Immature Gran % (Auto) % Neut % (Auto) % Lymph % (Auto) % [place] % (Auto) % Eos % (Auto) % Baso % (Auto) % Neut # (Auto) (1.40-6.50) K/uL Lymph # (Auto) (1.2-3.4) K/uL [place] # (Auto) (0.11-0.59) K/uL Eos # (Auto) (0-0.50) K/uL Baso # (Auto) (0-0.2) K/uL Immature Gran # (Auto) (0.01-0.20) K/uL Sodium (136-145) mmol/L Potassium (3.5-5.1) mmol/L Chloride (98-107) mmol/L Carbon Dioxide (21-32) mmol/L Anion Gap (3-11) BUN (6-23) mg/dl Creatinine (0.6-1.2) mg/dl Est Cr Clr Drug Dosing ml/min Est GFR ( Amer) ml/min Est GFR (Non-Af Amer) ml/min BUN/Creatinine Ratio (10-20) Glucose (70-99(Fasting)) mg/dl POC Glucose 122 H 200 H (70-99) mg/dl Calcium (8.6-10.3) mg/dl C-Reactive Protein (0-0.5) mg/dl B-Natriuretic Peptide (0-100) pg/ml
--- NOTE | 2022-09-23 12:01 | Pharmacy Report ---
Pharmacy Glycemic Short Note 2 - Date of Service September 23, 2022 - Glycemic Short BSG Results (Last 24 hours): 09/22/22 09/22/22 09/22/22 16:22 17:24 20:37 Glucose 146 H POC Glucose 122 H 156 H 09/23/22 09/23/22 09/23/22 06:32 07:37 11:20 Glucose 78 POC Glucose 125 H 192 H OUTPATIENT ANTIDIABETIC REGIMEN: * Glimepiride 4 mg PO BID * Metformin 1000 mg PO BIDM * HbA1c: 6.2% (09/21/22) ASSESSMENT: 09/23: * Adri received 5 units of insulin yesterday, all bolus. BSGs were: [phone] mg/dL. * Fasting BSG this AM was 125 mg/dL, controlled. Continue to hold basal insulin. * Lunchtime BSG trended up to 192 mg/dL today despite carb coverage with breakfast. If trend continues, then consider tighter carb ratio with breakfast. * Renal fxn continues to worsen, SCr: 1.80-->2.17-->3.36-->4.25 (today). 09/22: * BSGs trended up throughout the day yesterday * Received 2 units of bolus insulin only * Fasting BSG of 86 mg/dL this morning, will continue to hold off on basal at this time * Given BSG up-trend, will add a conservative carb coverage to Novolog today 09/21: * FH is an 82 year old female with ischemic colitis, currently undergoing conservative management * Very well-controlled T2DM as an outpatient, might consider discontinuation of glimepiride at discharge to simplify regimen and decrease risk of hypoglycemia * Patient has been intermittently hypoglycemic since time of admission * Consider dextrose fluids if not tolerating diet? * Conservative insulin (Novolog CF only) for now PLAN FOR INPATIENT GLYCEMIC CONTROL: * Hold outpatient oral diabetes medications * Basal insulin * hold * Bolus insulin * NovoLog per scale ACHS or Q6hrs while NPO * Goal Range: Low 120 mg/dL - High 150 mg/dL * Correction Factor: 45 mg/dL/unit * Nutritional / Prandial insulin per carb ratio of 1 unit per 20 grams CHO consumed
--- NOTE | 2022-09-23 12:40 | Electrocardiogram Report ---
Test Reason : Blood Pressure : / mmHG Vent. Rate : 057 BPM Atrial Rate : 059 BPM P-R Int : 000 ms QRS Dur : 092 ms QT Int : 428 ms P-R-T Axes : 000 067 047 degrees QTc Int : 416 ms Sinus bradycardia Nonspecific ST abnormality Abnormal ECG When compared with ECG of 20-SEP-2022 07:22, No significant change Confirmed by Derrek Laguna [id number]) on 09/23/2022 12:40:12 PM Referred By: REFERRED SELF Confirmed By:Derrek Laguna
--- NOTE | 2022-09-23 16:42 | Nephrology Consultation ---
Date of Consultation September 23, 2022 Assessment & Plan (1) LEV (acute kidney injury): Relatively oliguric. Volume status appears relatively euvolemic. Electrolytes acceptable. No emergent indication for [employer]. IVF held. No need for diuretics at this time. Clinical presentation suggestive of ATN in the setting of CT w/ contrast and ischemic colitis. UA bland on admission. Castañeda in place. Consider renal duplex if no improvement in net 24 hours. Restrict free water and potassium. Hold Entresto. Document strict I/O's. Repeat metabolic profile tomorrow AM. (2) Ischemic colitis: Improving with conservative management. (3) HTN (hypertension): Hold Entresto and diuretics (furosemide and spironolactone). BP acceptable. (4) (HFpEF) heart failure with preserved ejection fraction: Volume status acceptable. Diuretics held. Hold Entresto. Document I/O's. (5) Anemia: Chronic. Check iron profile with next labs. (6) Hyponatremia: Chronic. Euvolemic. Denies symptoms. Appetite good. Free water restriction to 1000 L over next 24 hours. Oral NaHCO3 1300 mg now. (7) PAD (peripheral artery disease): Imaging reviewed. t/c renal duplex if no improvement in kidney function in next 24 hours. (8) Type 2 diabetes mellitus with diabetic neuropathy, unspecified: Metformin held due to kidney dysfunction. History of Present Illness Reason for Consultation: LEV, decreased urine output Requesting Physician: Barry De Luna Attending Physician: Barry De Luna History of Present Illness Adri Gould is an 82 year-old female with hypertension, adult onset diabetes mellitus, coronary artery disease, peripheral arterial disease, paroxysmal atrial fibrillation, HFpEF, mitral regurgitation, anemia, hyponatremia, and history of TAVR. Adri presented to [facility] on September 20 with shortness of breath and several days of diarrhea, nausea, and vomiting. Symptoms were associated with recent laxative use for chronic constipation. Evaluation on presentation demonstrating pneumatosis of the ascending colon. Adri has a history of imaging demonstrating chronic SMA occlusion and has had ischemic R colitis in June. Serum lactate was normal on admission and conservative treatment was provided including aggressive hydration. She has tolerated management well and reported symptomatic improvement. Unfortunately, kidney function has progressively declined throughout the hospitalization. I discussed the patient's history and plan of care with Dr. De Luna this afternoon. Urine output for the past shift has been ~100 ml. UOP 260 ml yesterday. Catsañeda has been present since admission and recently exchanged. Urine is yellow and fairly concentrated. No hematuria or clots. Creatinine in June was 1.0 mg/dL. Creatinine was 1.6 mg/dL in July. Serum creatinine on admission 1.8 mg/dL which has risen daily to 4.25 mg/dL today. Serum metabolic profile otherwise notable for a sodium of 126 mmol/L and HCO3 of 20. UA bland on admission. CT scan demonstrated kidneys to be unobstructed. Castañeda placed at admission due to evidence of urinary retention with 400 ml on bladder scan in the ER. Spironolactone, furosemide, and metformin held. Allergies Allergy/AdvReac Type Severity Reaction Status Date / Time fenofibrate AdvReac Intermediate INCREASED Verified 09/20/22 09:43 URINATION metoprolol AdvReac Intermediate VOMIT,DIARR Verified 09/20/22 09:43 HEA valsartan AdvReac Intermediate Weakness Verified 09/20/22 09:43 verapamil AdvReac Intermediate INCREASED Verified 09/20/22 09:43 URINATION Home Medications Medication Instructions Recorded Confirmed Type aspirin 81 mg tablet,delayed 81 mg PO HS 03/04/20 09/20/22 History release metformin 500 mg tablet,extended 1,000 mg PO BIDM 03/04/20 09/20/22 History release 24 hr coenzyme Q10 100 mg capsule 100 mg PO QAM 12/01/20 09/20/22 History (CoQ-10) fish, borage, flaxseed oils-omega 1 cap PO QDD 12/01/20 09/20/22 History 3,6,9 comb no.1 1,200 mg capsule ([place] 3-6-9) atorvastatin 40 mg tablet 40 mg PO QAM 02/26/21 09/20/22 History multivitamin 1 tab PO QAM 02/26/21 09/20/22 History ferrous sulfate 325 mg (65 mg 325 mg PO BID #60 tabs 05/02/21 09/20/22 Rx iron) tablet amiodarone 200 mg tablet 200 mg PO QAM 07/01/21 09/20/22 History hydralazine 100 mg tablet 100 mg PO TID 07/01/21 09/20/22 History pantoprazole 40 mg tablet,delayed 40 mg PO BID 07/01/21 09/20/22 History release glimepiride 4 mg tablet 4 mg PO BID 12/21/21 09/20/22 History carvedilol 6.25 mg tablet 6.25 mg PO BID #60 tabs 12/27/21 09/20/22 Rx furosemide 40 mg tablet 40 mg PO QAM #30 tabs 12/27/21 09/20/22 Rx magnesium oxide 400 mg (241.3 mg 400 mg PO BID #60 tabs 12/27/21 09/20/22 Rx magnesium) tablet clopidogrel 75 mg tablet 75 mg PO QAM #30 tabs 03/06/22 09/20/22 Rx amlodipine 10 mg tablet 10 mg PO BID 06/20/22 09/20/22 History sacubitril 24 mg-valsartan 26 mg 1 tab PO BID 09/20/22 09/20/22 History tablet (Entresto) spironolactone 25 mg tablet 25 mg PO QAM 09/20/22 09/20/22 History Patient History Medical History (Updated 09/23/22 @ 17:54 by Erich Benz DO) Acute non-ST elevation myocardial infarction (NSTEMI) Acute on chronic heart failure with preserved ejection fraction (HFpEF) LEV (acute kidney injury) Anemia Bradycardia CAD (coronary artery disease) CVA (cerebral vascular accident) (~2019) no deficits Elevated troponin Hyperkalemia Hyperlipemia Hyponatremia Hypoxia Myocardial infarct, old follows with Dr. Mcpherson Occlusion of right iliac artery PAD (peripheral artery disease) Pneumonia hx S/P angiogram of extremity (02/02/21) Type 2 diabetes mellitus with diabetic neuropathy, unspecified NIDDM Surgical History H/O removal of cyst right abdominal area History of bunionectomy of right great toe History of cardiac cath (~2019) History of heart artery stent (~2019) x1. at [facility]. Status post ORIF of fracture of ankle Family History Other No family history of adverse response to anesthesia Social History Smoking Status: Former smoker Tobacco Type: Cigarettes Second Hand Exposure: No; Hx Alcohol Use: No Hx Substance Use: No Preferred Language: Armenian Communication Ability: Effective Communication Ability Comment: difficulty comprehending at times - dtr, Mamie is typically her caregiver Shift Supervisor Melting Required: No Beliefs That Will Affect Care: None marital status: / Current Living Situation: Family Current Living Situation Comment: currently moving in with daughter current occupational status: retired How many Children do You have: 1 Other Information That Helps Us Care for You: No Feels Safe at Home: Yes Safety Concerns: Feels Safe At This Time Assistive Devices: None Review of Systems Review of Systems: All systems reviewed & are unremarkable except as noted in HPI & below Physical Exam Constitutional: well developed; no acute distress Eyes: no scleral abnormality and no corneal abnormality ENMT: Mouth: no oral mucosal abnormality and oral mucous membranes not dry Neck: normal visual inspection and trachea midline Respiratory: normal respiratory effort Auscultation: lungs clear to auscultation bilaterally Cardiovascular: Rate/Rhythm: regular rate Heart Sounds: normal S1 and normal S2 Extremities: + edema (trace) Musculoskeletal: Extremities: no cyanosis and no clubbing Skin: normal turgor; no lesions Neurologic: Motor/Sensory: no tremor and no asterixis Psychiatric: Orientation: alert and oriented x 3 Results & Data Vital Signs (Past 12 Hours) Vital Signs Temp Pulse Pulse Resp BP Pulse Ox O2 Del Method 09/23/22 11:13 36.4 C L 53 L 18 154/77 H 92 Nasal Cannula 09/23/22 08:00 49 L 09/23/22 07:30 36.5 C 58 L 16 169/85 H 93 Room Air O2 Flow Rate 09/23/22 11:13 1 09/23/22 08:00 09/23/22 07:30 Laboratory Results Laboratory Results - last 24 hr 09/22/22 09/22/22 09/23/22 17:24 20:37 06:32 WBC 11.67 H RBC 3.05 L Hgb 8.6 L Hct 25.8 L MCV 84.6 MCH 28.2 MCHC 33.3 RDW Std Deviation 43.6 RDW Coeff of Alysa 14.1 Plt Count 343 MPV 11.9 Immature Gran % (Auto) 1.6 Neut % (Auto) 81.1 Lymph % (Auto) 7.5 [place] % (Auto) 7.2 Eos % (Auto) 2.3 Baso % (Auto) 0.3 Neut # (Auto) 9.46 H Lymph # (Auto) 0.88 L [place] # (Auto) 0.84 H Eos # (Auto) 0.27 Baso # (Auto) 0.03 Immature Gran # (Auto) 0.19 Sodium 126 L Potassium 4.8 Chloride 98 Carbon Dioxide 20 L Anion Gap 8 BUN 65 H Creatinine 3.97 H D Est Cr Clr Drug Dosing 10.7 Est GFR ( Amer) 11.6 Est GFR (Non-Af Amer) 10.0 BUN/Creatinine Ratio 16.4 Glucose 146 H POC Glucose 156 H Calcium 8.4 L C-Reactive Protein B-Natriuretic Peptide 09/23/22 09/23/22 09/23/22 06:32 06:32 07:37 WBC RBC Hgb Hct MCV MCH MCHC RDW Std Deviation RDW Coeff of Alysa Plt Count MPV Immature Gran % (Auto) Neut % (Auto) Lymph % (Auto) [place] % (Auto) Eos % (Auto) Baso % (Auto) Neut # (Auto) Lymph # (Auto) [place] # (Auto) Eos # (Auto) Baso # (Auto) Immature Gran # (Auto) Sodium 126 L Potassium 4.5 Chloride 97 L Carbon Dioxide 20 L Anion Gap 9 BUN 68 H Creatinine 4.25 H Est Cr Clr Drug Dosing 10.0 Est GFR ( Amer) 10.7 Est GFR (Non-Af Amer) 9.2 BUN/Creatinine Ratio 16.0 Glucose 78 POC Glucose 125 H Calcium 8.3 L C-Reactive Protein 12.31 H B-Natriuretic Peptide 1121 H 09/23/22 09/23/22 11:20 16:14 WBC RBC Hgb Hct MCV MCH MCHC RDW Std Deviation RDW Coeff of Alysa Plt Count MPV Immature Gran % (Auto) Neut % (Auto) Lymph % (Auto) [place] % (Auto) Eos % (Auto) Baso % (Auto) Neut # (Auto) Lymph # (Auto) [place] # (Auto) Eos # (Auto) Baso # (Auto) Immature Gran # (Auto) Sodium Potassium Chloride Carbon Dioxide Anion Gap BUN Creatinine Est Cr Clr Drug Dosing Est GFR ( Amer) Est GFR (Non-Af Amer) BUN/Creatinine Ratio Glucose POC Glucose 192 H 189 H Calcium C-Reactive Protein B-Natriuretic Peptide Diagnostic Findings ABDOMEN AND PELVIS CT WITH IV CONTRAST September 20: FINDINGS: Mild cardiomegaly and mild interlobular septal thickening within the lung bases suggestive of mild pulmonary edema. There are trace bilateral pleural effusions. Dependent changes seen within the lower lobes posteriorly. An aortic valve prosthesis is noted. Diffuse body wall edema is noted. Small amount of ascites is noted. There is mild periportal edema. The main portal vein is patent. The gallbladder is mildly distended. There is a punctate gallstone suggested. No gallbladder wall thickening. No hepatic or splenic masses. The adrenal glands are unremarkable. No hydronephrosis. There is a punctate stone within the left kidney. Extensive calcified plaque within the normal caliber abdominal aorta. There is chronic occlusion of the right common iliac artery, unchanged. Multifocal stenosis within the left common iliac artery is again noted. There is a patent femorofemoral bypass graft. The proximal SMA is occluded. The mid to distal SMA is reconstituted through the pancreaticoduodenal arcade. The inferior mesenteric artery appears patent. Bladder is decompressed by a Castañeda catheter. The uterus and adnexa are unremarkable. There is progressive circumferential thickening within the ascending colon and cecum with pericolonic fat stranding. There appears to be pneumatosis involving the ascending colon which is new from the prior study. Therefore, these findings are highly suspicious for ischemic colitis. There is moderate to large amount well- formed stool within the proximal colon and terminal ileum. There are few dilated gas-filled loops of small bowel within the midabdomen. This may represent an ileus or partial small bowel obstruction. The distal small bowel loops are decompressed. IMPRESSION: 1. Moderate circumferential thickening of the ascending colon and cecum has progressed. There appears to be pneumatosis involving the ascending colon. In conjunction with the occluded proximal superior mesenteric artery, this is highly suspicious for an ischemic colitis. Surgical consultation recommended. 2. Pulmonary edema and trace bilateral pleural effusions. 3. Mild diffuse body wall edema and a small amount of ascites. 4. Mildly dilated gas-filled loops of small bowel within the midabdomen. This may represent an ileus or partial small bowel obstruction. PG Care Time/CCT Total # of Minutes Spent Total Time Spent with Patient: Total time spent is greater than 50% in coordination of care (as documented) at patient's floor/unit and/or counseling patient: Coding Level of Care Code 32176 IN/OBS CONSULT LVL 4,60M Diagnoses LEV (acute kidney injury) N17.9 Ischemic colitis K55.9 HTN (hypertension) I10 (HFpEF) heart failure with preserved ejection fraction I50.30 Anemia D64.9 Hyponatremia E87.1 PAD (peripheral artery disease) I73.9 Type 2 diabetes mellitus with diabetic neuropathy, unspecified E11.40
[2022-09-23] MEDS: CIPROFLOXACIN 500 MG TAB PO SCH (17:52)
[2022-09-23] MEDS: SODIUM BICARBONATE 650 MG TAB PO SCH (18:23)
[2022-09-23] MEDS ORDERED: DICYCLOMINE HCL 10 MG CAP PO ONE (19:48)
[2022-09-23] MEDS ORDERED: Heparin IV Adult Wt-Based Standard *NO* Bolus Protocol IV ONE (19:49)
--- NOTE | 2022-09-23 21:04 | CT Scan Report ---
CT abd pelvis wo con CLINICAL HISTORY: ischemic colitis TECHNIQUE: Helical axial images of the abdomen and pelvis were obtained. Automated dose lowering tech niques and/or adjustment according to patient size were utilized for this exam. This exam was perfor med without intravenous contrast. CT DOSE: 821.99 mGy.cm COMPARISON: Comparison is made to CT abdomen pelvis 09/20/2022 FINDINGS: Lower chest: Small right pleural effusion is seen. Partial visualization of aortic valvular replacem ent. Liver: Unremarkable. No focal lesions are seen. Gallbladder and biliary tree: Layering radiodense material is seen in the dependent portion of the li alphonso representing sludge. No intra- or extrahepatic biliary ductal dilation. Pancreas: Unremarkable, no focal lesions. Spleen: Unremarkable. Adrenals: Unremarkable. Kidneys and ureters: Nonobstructive nephrolithiasis is seen. Bladder: Castañeda catheter is seen. Reproductive organs: Unremarkable. Bowel: Redemonstration of thickening of the ascending colon and cecum. Questionable pneumatosis is ag ain seen BOWEL appears less distended than prior exam. Lymph nodes Retroperitoneal: Unremarkable. Pelvic: Unremarkable. Mesenteric: Unremarkable. Peritoneum: Moderate pelvic free fluid is increased from prior exam. Vessels: Femorofemoral bypass catheter is seen. Extensive atherosclerotic disease is seen in the aort a. Abdominal wall: Extensive body wall edema is noted. Bones: Degenerative changes in the visualized spine. IMPRESSION: 1. Findings are compatible with continued colitis of the cecum and ascending colon, possibly ischemi c colitis. No perforation is seen. Free fluid in the pelvis may be reactive, increased from prior exa m. 2. Small right pleural effusion. ACT 112: Negative or not required by law. Electronically signed by: Umair Tan M.D. 09/23/2022 9:01 PM
[2022-09-23] MEDS: ASPIRIN 81 MG ECTAB PO SCH (21:10)
[2022-09-23] MEDS: HEPARIN SODIUM/DEXTROSE 25,000 UNITS/500 ML BAG IV SCH (21:26)
[2022-09-23 21:29] LABS: Hematocrit (blood only) 28.1 % (37.0-47.0); Hemoglobin 9.3 g/dl (12.0-16.0); Mean Corpuscular Hemoglobin 27.8 pg (25.0-34.0); Mean Corpuscular Hgb Conc 33.1 g/dL (32.0-36.0); Mean Corpuscular Volume 83.9 fL (80.0-100.0); Mean Platelet Volume 11.7 fL (9.4-12.4); Platelet Count 436 K/uL (130-400); RDW Coefficient of Variation 13.9 % (11.5-14.5); RDW Standard Deviation 42.6 fL (36.4-46.3); Red Blood Count 3.35 M/uL (4.20-5.40); White Blood Count 15.57 K/ul (4.8-10.8)
--- NOTE | 2022-09-23 21:45 | Hospitalist Progress Note ---
Date of Service September 23, 2022 Assessment & Plan (1) Ischemic colitis: Plan: RLQ abdominal pain started over the weekend and actually improving. CT A/P showing progression of circumferential thickening of ascending colon and cecum progressed from June, occluded proximal SMA and concern for partial small bowel obstruction Consult general surgery - discussed with Dr Zhu Consult vascular surgery to determine need for IV heparin in setting of paroxysmal atrial fibrillation Pain appears improved on 09/22, will continue above plan, supportive care, antibiotics. Diarrhea appears to have resolved on 09/23 Continue PO flagyl and cipro and will monitor her clinical progression. Given worsening pain on 09/23 at 19:10, will put NPO, will repeat lactic acid, resume heparin drip, obtain repeat ct scan. Signed out to resident. Discussed with overnight resident. updated family and discussed with Gen Surgery (2) Urinary retention: Plan: Spears catheter placed in ER due to PVR 400ml. Previously in urine retention in Jul admission also leading to HFpEF - recommend urology follow up for O/P urodynamics. Consutled nephro as no urine output despite switching catheter. Randell Acute tubular necrosis, holding diuretics and spironolactone, consulted nephro, holding entresto. (3) Acute respiratory failure with hypoxia: Plan: Suspect due to mild congestive pulmonary edema seen on CXR. Aim O2 sats > 90% (4) (HFpEF) heart failure with preserved ejection fraction: Plan: Acute on chronic suspect more due to urinary retention than problem with diuretic dosing or diet Continue her usual Lasix 40mg PO daily and spironolactone 25mg PO daily with spears catheter now in place. TTE performed in Jul, no need to repeat Strict I&Os Daily weights (5) LEV (acute kidney injury): Plan: Suspect due to urinary retention. Monitor BMP with spears catheter placement. (6) Paroxysmal atrial fibrillation: Plan: Not on anticoagulation due to GI bleeds and now maintaining sinus rhythm with amiodarone. (7) Type 2 diabetes mellitus with diabetic neuropathy, unspecified: Plan: Hold home glimepiride (8) Hypertension: Plan: Hold hydralazine and amlodipine while NPO Continue Entresto, Lasix, Carvedilol and spironolactone Plan VTE Prophylaxis -continue heparin Diet - NPO Disposition - admit to PCU Admission and Anticipated Discharge Date Admission Date: September 20, 2022 Subjective Patient reported feeling well. she was tolerating her diet and had no worsening pain. Update at 19:10: Patient reports worsening bloating, abdominal discomfort. Review of Systems Review of Systems: All systems reviewed & are unremarkable except as noted in HPI & below Physical Exam Physical Exam: Constitutional: WD/WN, vitals as above Eyes: PERRL, conjunctivae normal, anicteric sclerae ENMT: external ear and nose normal, oropharynx normal Respiratory: normal respiratory effort Auscultation: + crackles (bibasal); no diminished lung sounds and no wheezes Cardiovascular: RRR, no murmur, no edema Gastrointestinal (Abdomen): Inspection/Auscultation: + abdomen distended Percussion/Palpation: softer on earlier visit, but bloated and distended on repat exam. + guarding and abdomen soft; abdomen not rigid Musculoskeletal: no cyanosis or clubbing, extremities motor strength 5/5 Skin: no rashes, warm and dry Neurologic: moves all extremities and awake; no focal motor deficits and not confused Psychiatric: A+Ox3, euthymic affect Results & Data Results & Data Vital Signs (Past 12 Hours) Vital Signs Temp Pulse Resp BP Pulse Ox O2 Del Method O2 Flow Rate 09/23/22 19:00 36.9 C 59 L 19 153/58 H 97 Nasal Cannula 1 09/23/22 17:14 36.2 C L 55 L 22 153/58 H 97 Nasal Cannula 1 09/23/22 11:13 36.4 C L 53 L 18 154/77 H 92 Nasal Cannula 1 PG Care Time/CCT Total # of Minutes Spent Total Time Spent with Patient: Total time spent is greater than 50% in coordination of care (as documented) at patient's floor/unit and/or counseling patient: Coding Level of Care Code 63957 SUB INP/OBS CARE 3/50MIN Diagnoses Ischemic colitis K55.9 Urinary retention R33.9 Acute respiratory failure with hypoxia J96.01 (HFpEF) heart failure with preserved ejection fraction I50.30 LEV (acute kidney injury) N17.9 Paroxysmal atrial fibrillation I48.0 Type 2 diabetes mellitus with diabetic neuropathy, unspecified E11.40 Hypertension I10 Hypertension type: unspecified Time Spent (min) 65 (8) Hypertension Hypertension type: unspecified Qualified Code(s): I10 - Essential (primary) hypertension
[2022-09-23 21:59] LABS: BUN Creatinine Ratio 15.3 (10-20); Calcium 8.4 mg/dl (8.6-10.3); Creatinine Clr Calc Pharmacy 8.9 ml/min; Est GFR (African American) 9.3 ml/min; Potassium 4.8 mmol/L (3.5-5.1)
[2022-09-24 04:26] LABS: Hematocrit (blood only) 25.6 % (37.0-47.0); Hemoglobin 8.6 g/dl (12.0-16.0); Mean Corpuscular Hemoglobin 28.1 pg (25.0-34.0); Mean Corpuscular Hgb Conc 33.6 g/dL (32.0-36.0); Mean Corpuscular Volume 83.7 fL (80.0-100.0); Mean Platelet Volume 11.6 fL (9.4-12.4); Platelet Count 396 K/uL (130-400); RDW Coefficient of Variation 13.7 % (11.5-14.5); RDW Standard Deviation 42.1 fL (36.4-46.3); Red Blood Count 3.06 M/uL (4.20-5.40); White Blood Count 11.51 K/ul (4.8-10.8)
[2022-09-24 04:27] LABS: BUN Creatinine Ratio 15.8 (10-20); Calcium 8.2 mg/dl (8.6-10.3); Est GFR (African American) 9.4 ml/min; Est GFR (Non-African American) 8.1 ml/min; Phosphorus 4.1 mg/dl (2.5-4.9); Potassium 4.5 mmol/L (3.5-5.1)
[2022-09-24 04:33] LABS: Partial Thromboplastin Ratio 1.3; Partial Thromboplastin Time 35.3 Seconds (21.0-31.0)
[2022-09-24] MEDS ORDERED: HEPARIN IV BOLUS 2,000 UNITS in SYRINGE 0 ML IV ONE (06:15)
[2022-09-24] MEDS: AMIODARONE 200 MG TAB PO SCH (07:21)
[2022-09-24] MEDS: PANTOprazole 40 MG TAB PO SCH ×2 (07:22→20:18)
[2022-09-24] MEDS: metroNIDAZOLE 500 MG TAB PO SCH ×3 (07:22→20:18)
[2022-09-24] MEDS: carvediloL 6.25 MG TAB PO SCH ×2 (07:22→20:18)
[2022-09-24] MEDS: CLOPIDOGREL BISULFATE 75 MG TAB PO SCH (07:23)
[2022-09-24] MEDS: SODIUM BICARBONATE 650 MG TAB PO SCH ×2 (07:24→17:12)
[2022-09-24] MEDS: ATORVASTATIN 40 MG TAB PO SCH (07:24)
[2022-09-24] MEDS ORDERED: Nursing to Pharmacy Communication SCH ×2 (08:00→11:45)
[2022-09-24] MEDS: INSULIN ASPART PER UNIT CHARGE SC SCH ×4 (08:10→20:31)
--- NOTE | 2022-09-24 10:15 | Nephrology Progress Note ---
Date of Service September 24, 2022 Assessment & Plan (1) LEV (acute kidney injury): Plan: Non-oliguric. Urine output improved overnight. Volume status remains relatively euvolemic. No emergent indication for MEDICAL PHOTOGRAPHER. Creatinine appears to be plateauing. Clinical presentation suggestive of ATN in the setting of CT w/ contrast and ischemic colitis. UA bland on admission. Castañeda in place. Kidney function improving and BP reasonable, renal duplex would be unlikely to c hange management at this time. No additional diagnostic testing ordered. I will repeat a metabolic profile this afternoon, notably to monitor serum sodium. Restrict free water. Hold Entresto. Document strict I/O's. I discussed the plan of care with Dr. De Luna this AM. (2) Ischemic colitis: Plan: CT reviewed. Clinically improving. No surgical intervention planned. NPO currently. (3) HTN (hypertension): Plan: Hold Entresto and diuretics (furosemide and spironolactone). BP slightly elevated but acceptable. (4) (HFpEF) heart failure with preserved ejection fraction: Plan: Volume status acceptable. Diuretics held. Hold Entresto. Document I/O's. (5) Anemia: Plan: Chronic, stable. Tsat 16. Single dose of venofer 200 mg provided this AM. (6) Hyponatremia: Plan: Chronic. Euvolemic. Denies symptoms. Appetite good. Free water restriction to 1000 L. Oral NaHCO3 1300 mg BID. Recheck this afternoon. (7) PAD (peripheral artery disease): Plan: Imaging reviewed. (8) Type 2 diabetes mellitus with diabetic neuropathy, unspecified: Plan: Metformin held due to kidney dysfunction. Admission and Anticipated Discharge Date Admission Date: September 20, 2022 Subjective Abdominal discomfort, Castañeda discomfort, and agitation noted overnight. NPO this AM. Heparin gtt has been restarted. Adri reports notable improvement this AM. She would like to advance her diet. No fevers or chills. Denies pain this AM. Urine output has increased. No fluid retention or edema. Tolerating oral NaCl. Review of Systems Review of Systems: All systems reviewed & are unremarkable except as noted in HPI & below Physical Exam Constitutional: well developed; no acute distress Eyes: no scleral abnormality and no corneal abnormality ENMT: Mouth: no oral mucosal abnormality and oral mucous membranes not dry Neck: normal visual inspection and trachea midline Respiratory: normal respiratory effort Auscultation: lungs clear to auscultation bilaterally Cardiovascular: Rate/Rhythm: regular rate Heart Sounds: normal S1 and normal S2 Extremities: + edema (trace) Musculoskeletal: Extremities: no cyanosis and no clubbing Skin: normal turgor; no lesions Neurologic: Motor/Sensory: no tremor and no asterixis Psychiatric: Orientation: alert and oriented x 3 Results & Data Vital Signs (Past 12 Hours) Vital Signs Temp Pulse Pulse Resp BP Pulse Ox O2 Del Method 09/24/22 08:00 61 09/24/22 08:23 36.5 C 61 18 162/74 H 96 Room Air 09/24/22 03:00 37.0 C 62 20 175/66 H 93 Nasal Cannula 09/23/22 23:00 37.0 C 59 L 18 159/91 H 95 Nasal Cannula 09/23/22 23:07 61 O2 Flow Rate 09/24/22 08:00 09/24/22 08:23 09/24/22 03:00 1 09/23/22 23:00 1 09/23/22 23:07 Laboratory Results Laboratory Results - last 24 hr 09/23/22 09/23/22 09/23/22 11:20 16:14 20:51 WBC RBC Hgb Hct MCV MCH MCHC RDW Std Deviation RDW Coeff of Alysa Plt Count MPV APTT PTT Ratio Sodium Potassium Chloride Carbon Dioxide Anion Gap BUN Creatinine Est Cr Clr Drug Dosing Est GFR ( Amer) Est GFR (Non-Af Amer) BUN/Creatinine Ratio Glucose POC Glucose 192 H 189 H 156 H Lactate Calcium Phosphorus Iron TIBC Unsaturated IBC Transferrin % Sat Albumin 09/23/22 09/23/22 09/23/22 20:52 20:52 20:52 WBC 15.57 H RBC 3.35 L Hgb 9.3 L Hct 28.1 L MCV 83.9 MCH 27.8 MCHC 33.1 RDW Std Deviation 42.6 RDW Coeff of Alysa 13.9 Plt Count 436 H MPV 11.7 APTT PTT Ratio Sodium 122 L Potassium 4.8 Chloride 95 L Carbon Dioxide 19 L Anion Gap 8 BUN 73 H Creatinine 4.77 H* D Est Cr Clr Drug Dosing 8.9 Est GFR ( Amer) 9.3 Est GFR (Non-Af Amer) 8.0 BUN/Creatinine Ratio 15.3 Glucose 145 H POC Glucose Lactate 0.7 Calcium 8.4 L Phosphorus Iron TIBC Unsaturated IBC Transferrin % Sat Albumin 09/24/22 09/24/22 09/24/22 03:22 03:22 03:22 WBC 11.51 H RBC 3.06 L Hgb 8.6 L Hct 25.6 L MCV 83.7 MCH 28.1 MCHC 33.6 RDW Std Deviation 42.1 RDW Coeff of Alysa 13.7 Plt Count 396 MPV 11.6 APTT 35.3 H PTT Ratio 1.3 Sodium 125 L Potassium 4.5 Chloride 95 L Carbon Dioxide 19 L Anion Gap 11 BUN 75 H Creatinine 4.75 H* Est Cr Clr Drug Dosing 9.0 Est GFR ( Amer) 9.4 Est GFR (Non-Af Amer) 8.1 BUN/Creatinine Ratio 15.8 Glucose 100 H POC Glucose Lactate Calcium 8.2 L Phosphorus 4.1 Iron 36 TIBC 228 L Unsaturated IBC 192 Transferrin % Sat 16 Albumin 3.0 L 09/24/22 07:39 WBC RBC Hgb Hct MCV MCH MCHC RDW Std Deviation RDW Coeff of Alysa Plt Count MPV APTT PTT Ratio Sodium Potassium Chloride Carbon Dioxide Anion Gap BUN Creatinine Est Cr Clr Drug Dosing Est GFR ( Amer) Est GFR (Non-Af Amer) BUN/Creatinine Ratio Glucose POC Glucose 98 Lactate Calcium Phosphorus Iron TIBC Unsaturated IBC Transferrin % Sat Albumin Diagnostic Findings CT abd pelvis wo con CLINICAL HISTORY: ischemic colitis 09/22/2022 COMPARISON: Comparison is made to CT abdomen pelvis 09/20/2022 FINDINGS: Lower chest: Small right pleural effusion is seen. Partial visualization of aortic valvular replacement. Liver: Unremarkable. No focal lesions are seen. Gallbladder and biliary tree: Layering radiodense material is seen in the dependent portion of the likely representing sludge. No intra- or extrahepatic biliary ductal dilation. Pancreas: Unremarkable, no focal lesions. Spleen: Unremarkable. Adrenals: Unremarkable. Kidneys and ureters: Nonobstructive nephrolithiasis is seen. Bladder: Castañeda catheter is seen. Reproductive organs: Unremarkable. Bowel: Redemonstration of thickening of the ascending colon and cecum. Questionable pneumatosis is again seen BOWEL appears less distended than prior exam. Lymph nodes Retroperitoneal: Unremarkable. Pelvic: Unremarkable. Mesenteric: Unremarkable. Peritoneum: Moderate pelvic free fluid is increased from prior exam. Vessels: Femorofemoral bypass catheter is seen. Extensive atherosclerotic disease is seen in the aorta. Abdominal wall: Extensive body wall edema is noted. Bones: Degenerative changes in the visualized spine. IMPRESSION: 1. Findings are compatible with continued colitis of the cecum and ascending colon, possibly ischemic colitis. No perforation is seen. Free fluid in the pelvis may be reactive, increased from prior exam. 2. Small right pleural effusion. PG Care Time/CCT Total # of Minutes Spent Total Time Spent with Patient: Total time spent is greater than 50% in coordination of care (as documented) at patient's floor/unit and/or counseling patient: Coding Level of Care Code 84982 SUB INP/OBS CARE 350MIN Diagnoses LEV (acute kidney injury) N17.9 Ischemic colitis K55.9 HTN (hypertension) I10 (HFpEF) heart failure with preserved ejection fraction I50.30 Anemia D64.9 Hyponatremia E87.1 PAD (peripheral artery disease) I73.9 Type 2 diabetes mellitus with diabetic neuropathy, unspecified E11.40
[2022-09-24] MEDS ORDERED: IRON SUCROSE 200 MG in 0.9 % SODIUM CHLORIDE 100 ML IV ONE (10:30)
[2022-09-24] MEDS ORDERED: INSULIN ASPART PER UNIT CHARGE SC SCH (12:00)
--- NOTE | 2022-09-24 12:09 | Surgery Progress Note ---
Date of Service September 24, 2022 Assessment & Plan (1) Ischemic colitis: Plan: slowly improving repeat CT scan done last evening still showing colitis of the right colon no abdominal pain per patient abdominal exam soft, nontender tolerating clears today Would continue clears today, could likely advance to soft diet tomorrow continue po antibiotics continue current medical management our services signing off, please call with questions/concerns Discussed with Dr. Perdue who agrees with above. Admission and Anticipated Discharge Date Admission Date: September 20, 2022 Subjective feeling better today making more urine no abdominal pain no nausea or vomiting with diet loose bowel movement yesterday no blood Physical Exam Constitutional: WD/WN, vitals as above cooperative and + overweight; no acute distress and not ill appearing Neck: normal visual inspection and trachea midline Gastrointestinal (Abdomen): Inspection/Auscultation: abdomen normal to inspection, + abdomen distended (mildly upper abdomen) and + hypoactive bowel sounds; + abnormal bowel sounds Percussion/Palpation: abdomen soft; abdomen nontender, no guarding and abdomen not rigid Skin: no rashes, warm and dry Psychiatric: A+Ox3, euthymic affect Results & Data Vital Signs (Past 12 Hours) Vital Signs Temp Pulse Pulse Resp BP Pulse Ox O2 Del Method 09/24/22 11:53 37.0 C 56 L 19 158/70 H 95 Room Air 09/24/22 08:00 61 09/24/22 08:23 36.5 C 61 18 162/74 H 96 Room Air 09/24/22 03:00 37.0 C 62 20 175/66 H 93 Nasal Cannula O2 Flow Rate 09/24/22 11:53 09/24/22 08:00 09/24/22 08:23 09/24/22 03:00 1 Laboratory Results 09/24/22 09/24/22 09/24/22 Range/Units 11:29 11:17 07:39 WBC (4.8-10.8) K/ul RBC (4.20-5.40) M/uL Hgb (12.0-16.0) g/dl Hct (37.0-47.0) % MCV (80.0-100.0) fL MCH (25.0-34.0) pg MCHC (32.0-36.0) g/dL RDW Std Deviation (36.4-46.3) fL RDW Coeff of Alysa (11.5-14.5) % Plt Count (130-400) K/uL MPV (9.4-12.4) fL APTT Pending (21.0-31.0) Seconds PTT Ratio Pending Sodium (136-145) mmol/L Potassium (3.5-5.1) mmol/L Chloride (98-107) mmol/L Carbon Dioxide (21-32) mmol/L Anion Gap (3-11) BUN (6-23) mg/dl Creatinine (0.6-1.2) mg/dl Est Cr Clr Drug Dosing ml/min Est GFR ( Amer) ml/min Est GFR (Non-Af Amer) ml/min BUN/Creatinine Ratio (10-20) Glucose (70-99(Fasting)) mg/dl POC Glucose 142 H 98 (70-99) mg/dl Lactate (0.4-2.0) mmol/L Calcium (8.6-10.3) mg/dl Phosphorus (2.5-4.9) mg/dl Iron (35-150) mcg/dl TIBC (250-450) mcg/dl Unsaturated IBC (155-355) mcg/dl Transferrin % Sat (15-50) % Albumin (3.4-5.0) gm/dl 09/24/22 09/24/22 09/24/22 Range/Units 03:22 03:22 03:22 WBC 11.51 H (4.8-10.8) K/ul RBC 3.06 L (4.20-5.40) M/uL Hgb 8.6 L (12.0-16.0) g/dl Hct 25.6 L (37.0-47.0) % MCV 83.7 (80.0-100.0) fL MCH 28.1 (25.0-34.0) pg MCHC 33.6 (32.0-36.0) g/dL RDW Std Deviation 42.1 (36.4-46.3) fL RDW Coeff of Alysa 13.7 (11.5-14.5) % Plt Count 396 (130-400) K/uL MPV 11.6 (9.4-12.4) fL APTT 35.3 H (21.0-31.0) Seconds PTT Ratio 1.3 Sodium 125 L (136-145) mmol/L Potassium 4.5 (3.5-5.1) mmol/L Chloride 95 L (98-107) mmol/L Carbon Dioxide 19 L (21-32) mmol/L Anion Gap 11 (3-11) BUN 75 H (6-23) mg/dl Creatinine 4.75 H* (0.6-1.2) mg/dl Est Cr Clr Drug Dosing 9.0 ml/min Est GFR ( Amer) 9.4 ml/min Est GFR (Non-Af Amer) 8.1 ml/min BUN/Creatinine Ratio 15.8 (10-20) Glucose 100 H (70-99(Fasting)) mg/dl POC Glucose (70-99) mg/dl Lactate (0.4-2.0) mmol/L Calcium 8.2 L (8.6-10.3) mg/dl Phosphorus 4.1 (2.5-4.9) mg/dl Iron 36 (35-150) mcg/dl TIBC 228 L (250-450) mcg/dl Unsaturated IBC 192 (155-355) mcg/dl Transferrin % Sat 16 (15-50) % Albumin 3.0 L (3.4-5.0) gm/dl 09/23/22 09/23/22 09/23/22 Range/Units 20:52 20:52 20:52 WBC 15.57 H (4.8-10.8) K/ul RBC 3.35 L (4.20-5.40) M/uL Hgb 9.3 L (12.0-16.0) g/dl Hct 28.1 L (37.0-47.0) % MCV 83.9 (80.0-100.0) fL MCH 27.8 (25.0-34.0) pg MCHC 33.1 (32.0-36.0) g/dL RDW Std Deviation 42.6 (36.4-46.3) fL RDW Coeff of Alysa 13.9 (11.5-14.5) % Plt Count 436 H (130-400) K/uL MPV 11.7 (9.4-12.4) fL APTT (21.0-31.0) Seconds PTT Ratio Sodium 122 L (136-145) mmol/L Potassium 4.8 (3.5-5.1) mmol/L Chloride 95 L (98-107) mmol/L Carbon Dioxide 19 L (21-32) mmol/L Anion Gap 8 (3-11) BUN 73 H (6-23) mg/dl Creatinine 4.77 H* D (0.6-1.2) mg/dl Est Cr Clr Drug Dosing 8.9 ml/min Est GFR ( Amer) 9.3 ml/min Est GFR (Non-Af Amer) 8.0 ml/min BUN/Creatinine Ratio 15.3 (10-20) Glucose 145 H (70-99(Fasting)) mg/dl POC Glucose (70-99) mg/dl Lactate 0.7 (0.4-2.0) mmol/L Calcium 8.4 L (8.6-10.3) mg/dl Phosphorus (2.5-4.9) mg/dl Iron (35-150) mcg/dl TIBC (250-450) mcg/dl Unsaturated IBC (155-355) mcg/dl Transferrin % Sat (15-50) % Albumin (3.4-5.0) gm/dl 09/23/22 09/23/22 Range/Units 20:51 16:14 WBC (4.8-10.8) K/ul RBC (4.20-5.40) M/uL Hgb (12.0-16.0) g/dl Hct (37.0-47.0) % MCV (80.0-100.0) fL MCH (25.0-34.0) pg MCHC (32.0-36.0) g/dL RDW Std Deviation (36.4-46.3) fL RDW Coeff of Alysa (11.5-14.5) % Plt Count (130-400) K/uL MPV (9.4-12.4) fL APTT (21.0-31.0) Seconds PTT Ratio Sodium (136-145) mmol/L Potassium (3.5-5.1) mmol/L Chloride (98-107) mmol/L Carbon Dioxide (21-32) mmol/L Anion Gap (3-11) BUN (6-23) mg/dl Creatinine (0.6-1.2) mg/dl Est Cr Clr Drug Dosing ml/min Est GFR ( Amer) ml/min Est GFR (Non-Af Amer) ml/min BUN/Creatinine Ratio (10-20) Glucose (70-99(Fasting)) mg/dl POC Glucose 156 H 189 H (70-99) mg/dl Lactate (0.4-2.0) mmol/L Calcium (8.6-10.3) mg/dl Phosphorus (2.5-4.9) mg/dl Iron (35-150) mcg/dl TIBC (250-450) mcg/dl Unsaturated IBC (155-355) mcg/dl Transferrin % Sat (15-50) % Albumin (3.4-5.0) gm/dl
[2022-09-24 12:20] LABS: Partial Thromboplastin Ratio 1.5
--- NOTE | 2022-09-24 13:49 | Pharmacy Report ---
Pharmacy Glycemic Short Note 2 - Date of Service September 24, 2022 - Glycemic Short BSG Results (Last 24 hours): 09/23/22 09/23/22 09/23/22 16:14 20:51 20:52 Glucose 145 H POC Glucose 189 H 156 H 09/24/22 09/24/22 09/24/22 03:22 07:39 11:29 Glucose 100 H POC Glucose 98 142 H OUTPATIENT ANTIDIABETIC REGIMEN: * Glimepiride 4 mg PO BID * Metformin 1000 mg PO BIDM * HbA1c: 6.2% (09/21/22) ASSESSMENT: 09/24: * Clear diet ordered with breakfast. Fasting this AM 98 mg/dL- continue to hold basal * BSGs continue to be acceptable [phone] mg/dL, will continue current novolog parameters * SCr continues to climb, 4.75 today 09/23: * Adri received 5 units of insulin yesterday, all bolus. BSGs were: [phone] mg/dL. * Fasting BSG this AM was 125 mg/dL, controlled. Continue to hold basal insulin. * Lunchtime BSG trended up to 192 mg/dL today despite carb coverage with breakfast. If trend continues, then consider tighter carb ratio with breakfast. * Renal fxn continues to worsen, SCr: 1.80-->2.17-->3.36-->4.25 (today). 09/22: * BSGs trended up throughout the day yesterday * Received 2 units of bolus insulin only * Fasting BSG of 86 mg/dL this morning, will continue to hold off on basal at this time * Given BSG up-trend, will add a conservative carb coverage to Novolog today 09/21: * STEVE is an 82 year old female with ischemic colitis, currently undergoing conservative management * Very well-controlled T2DM as an outpatient, might consider discontinuation of glimepiride at discharge to simplify regimen and decrease risk of hypoglycemia * Patient has been intermittently hypoglycemic since time of admission * Consider dextrose fluids if not tolerating diet? * Conservative insulin (Novolog CF only) for now PLAN FOR INPATIENT GLYCEMIC CONTROL: * Hold outpatient oral diabetes medications * Basal insulin * hold * Bolus insulin * NovoLog per scale ACHS or Q6hrs while NPO * Goal Range: Low 120 mg/dL - High 150 mg/dL * Correction Factor: 45 mg/dL/unit * Nutritional / Prandial insulin per carb ratio of 1 unit per 20 grams CHO consumed
[2022-09-24 15:25] LABS: BUN Creatinine Ratio 15.7 (10-20); Creatinine Clr Calc Pharmacy 10.3 ml/min; Est GFR (African American) 10.6 ml/min; Est GFR (Non-African American) 9.2 ml/min; Potassium 4.5 mmol/L (3.5-5.1)
[2022-09-24] MEDS ORDERED: STAT IV STA (16:17)
[2022-09-24] MEDS ORDERED: SODIUM CHLORIDE 3 % 100 ML IV ONE (16:25)
[2022-09-24] MEDS: CIPROFLOXACIN 500 MG TAB PO SCH (17:12)
[2022-09-24] MEDS: HEPARIN SODIUM/DEXTROSE 25,000 UNITS/500 ML BAG IV SCH (17:15)
[2022-09-24 17:44] LABS: Adenovirus F 40/41 PCR Not Detected (NotDetected); Astrovirus PCR Not Detected (NotDetected); Campylobacter PCR Not Detected (NotDetected); Cryptosporidium PCR Not Detected (NotDetected); Cyclospora cayetanensis PCR Not Detected (NotDetected); Entamoeba histolytica PCR Not Detected (NotDetected); Enteroaggregative E.coli(EAEC) Not Detected (NotDetected); Enteropathogenic E.coli (EPEC) Not Detected (NotDetected); Enterotoxigenic E.coli (ETEC) Not Detected (NotDetected); Giardia lamblia PCR Not Detected (NotDetected); Norovirus GI/GII PCR Not Detected (NotDetected); Plesiomonas shigelloides PCR Not Detected (NotDetected); Rotavirus A PCR Not Detected (NotDetected); Salmonella PCR Not Detected (NotDetected); Sapovirus PCR Not Detected (NotDetected); Shiga-like Toxin E.coli (STEC) Not Detected (NotDetected); Shigella/Enteroinvasive E.coli Not Detected (NotDetected); Vibrio cholerae PCR Not Detected (NotDetected); Vibrio species PCR Not Detected (NotDetected); Yersinia enterocolitica PCR Not Detected (NotDetected)
[2022-09-24] MEDS: ASPIRIN 81 MG ECTAB PO SCH (20:18)
--- NOTE | 2022-09-24 22:27 | Hospitalist Progress Note ---
Date of Service September 24, 2022 Assessment & Plan (1) Ischemic colitis: Plan: RLQ abdominal pain started over the weekend and actually improving. CT A/P showing progression of circumferential thickening of ascending colon and cecum progressed from June, occluded proximal SMA and concern for partial small bowel obstruction Consult general surgery - discussed with Dr Zhu Consult vascular surgery to determine need for IV heparin in setting of paroxysmal atrial fibrillation Pain appears improved on 09/22, will continue above plan, supportive care, antibiotics. Diarrhea appears to have resolved on 09/23 Continue PO flagyl and cipro and will monitor her clinical progression. Patient appears to be improving on 09/24, her imaging overnight was negative and she is now tolerating a clear liquid diet, will advance her diet in the AM. (2) Urinary retention: Plan: Spears catheter placed in ER due to PVR 400ml. Previously in urine retention in Jul admission also leading to HFpEF - recommend urology follow up for O/P urodynamics. Consutled nephro as no urine output despite switching catheter. Randell Acute tubular necrosis, holding diuretics and spironolactone, consulted nephro, holding entresto. now making urine, will monitor her urine output and renal function. reviewed her blood work on 09/24 (3) Acute respiratory failure with hypoxia: Plan: Suspect due to mild congestive pulmonary edema seen on CXR. Aim O2 sats > 90% (4) (HFpEF) heart failure with preserved ejection fraction: Plan: Acute on chronic suspect more due to urinary retention than problem with diuretic dosing or diet Continue her usual Lasix 40mg PO daily and spironolactone 25mg PO daily with spears catheter now in place. TTE performed in Jul, no need to repeat Strict I&Os Daily weights (5) LEV (acute kidney injury): Plan: Suspect due to urinary retention. Monitor BMP with spears catheter placement. (6) Paroxysmal atrial fibrillation: Plan: Not on anticoagulation due to GI bleeds and now maintaining sinus rhythm with amiodarone. (7) Type 2 diabetes mellitus with diabetic neuropathy, unspecified: Plan: Hold home glimepiride (8) Hypertension: Plan: Hold hydralazine and amlodipine while NPO Continue Entresto, Lasix, Carvedilol and spironolactone Plan VTE Prophylaxis -continue heparin Diet - NPO Disposition - admit to PCU Admission and Anticipated Discharge Date Admission Date: September 20, 2022 Subjective Patient reports tolerating her diet. She is also reporting that her urine output has improved. Review of Systems Review of Systems: All systems reviewed & are unremarkable except as noted in HPI & below Physical Exam Physical Exam: Constitutional: WD/WN, vitals as above Eyes: PERRL, conjunctivae normal, anicteric sclerae ENMT: external ear and nose normal, oropharynx normal Respiratory: normal respiratory effort Auscultation: + crackles (bibasal); no diminished lung sounds and no wheezes Cardiovascular: RRR, no murmur, no edema Gastrointestinal (Abdomen): Inspection/Auscultation: + abdomen distended Percussion/Palpation: softer,nontender guarding and abdomen soft; abdomen not rigid Musculoskeletal: no cyanosis or clubbing, extremities motor strength 5/5 Skin: no rashes, warm and dry Neurologic: moves all extremities and awake; no focal motor deficits and not confused Psychiatric: A+Ox3, euthymic affect Results & Data Results & Data Vital Signs (Past 12 Hours) Vital Signs Temp Pulse Resp BP Pulse Ox O2 Del Method O2 Flow Rate 09/24/22 19:30 36.8 C 65 12 169/76 H 96 Nasal Cannula 1 09/24/22 16:02 36.5 C 59 L 19 169/90 H 96 Room Air 09/24/22 11:53 37.0 C 56 L 19 158/70 H 95 Room Air PG Care Time/CCT Total # of Minutes Spent Total Time Spent with Patient: Total time spent is greater than 50% in coordination of care (as documented) at patient's floor/unit and/or counseling patient: Coding Level of Care Code 45952 SUB INP/OBS CARE 3/50MIN Diagnoses Ischemic colitis K55.9 Urinary retention R33.9 Acute respiratory failure with hypoxia J96.01 (HFpEF) heart failure with preserved ejection fraction I50.30 LEV (acute kidney injury) N17.9 Paroxysmal atrial fibrillation I48.0 Type 2 diabetes mellitus with diabetic neuropathy, unspecified E11.40 Hypertension I10 Hypertension type: unspecified (8) Hypertension Hypertension type: unspecified Qualified Code(s): I10 - Essential (primary) hypertension
[2022-09-25 06:37] LABS: Hematocrit (blood only) 24.4 % (37.0-47.0); Hemoglobin 8.1 g/dl (12.0-16.0); Mean Corpuscular Hemoglobin 27.7 pg (25.0-34.0); Mean Corpuscular Hgb Conc 33.2 g/dL (32.0-36.0); Mean Corpuscular Volume 83.6 fL (80.0-100.0); Mean Platelet Volume 11.3 fL (9.4-12.4); Platelet Count 413 K/uL (130-400); RDW Coefficient of Variation 14.1 % (11.5-14.5); RDW Standard Deviation 43.2 fL (36.4-46.3); Red Blood Count 2.92 M/uL (4.20-5.40); White Blood Count 10.82 K/ul (4.8-10.8)
[2022-09-25 07:03] LABS: Partial Thromboplastin Time 57.1 Seconds (21.0-31.0)
[2022-09-25] MEDS: INSULIN ASPART PER UNIT CHARGE SC SCH ×4 (08:03→20:18)
[2022-09-25 08:14] LABS: BUN Creatinine Ratio 17.6 (10-20); Calcium 8.2 mg/dl (8.6-10.3); Creatinine Clr Calc Pharmacy 12.3 ml/min; Est GFR (African American) 13.4 ml/min; Est GFR (Non-African American) 11.6 ml/min; Potassium 4.2 mmol/L (3.5-5.1)
[2022-09-25] MEDS: metroNIDAZOLE 500 MG TAB PO SCH ×3 (08:37→20:37)
[2022-09-25] MEDS: PANTOprazole 40 MG TAB PO SCH ×2 (08:37→20:37)
[2022-09-25] MEDS: CLOPIDOGREL BISULFATE 75 MG TAB PO SCH (08:38)
[2022-09-25] MEDS: carvediloL 6.25 MG TAB PO SCH ×2 (08:38→20:37)
[2022-09-25] MEDS: SODIUM BICARBONATE 650 MG TAB PO SCH ×2 (08:38→17:24)
[2022-09-25] MEDS: ATORVASTATIN 40 MG TAB PO SCH (08:38)
[2022-09-25] MEDS: AMIODARONE 200 MG TAB PO SCH (08:38)
[2022-09-25] MEDS ORDERED: IRON SUCROSE 200 MG in 0.9 % SODIUM CHLORIDE 100 ML IV ONE (09:45)
--- NOTE | 2022-09-25 09:52 | Nephrology Progress Note ---
Date of Service September 25, 2022 Assessment & Plan (1) LEV (acute kidney injury): Plan: Non-oliguric. Volume status remains relatively euvolemic. Electrolytes acceptable. Mild hyponatremia which is improving. Creatinine improving demonstrating renal recovery phase. Clinical presentation consistent with ATN in the setting of CT w/ contrast and ischemic colitis. UA bland on admission. Castañeda may be removed. Restrict free water. Hold Entresto. Document strict I/O's. Repeat metabolic profile tomorrow AM. (2) Ischemic colitis: Plan: Diet is being advanced. Remains on heparin gtt. Clinically improving with supportive care. (3) HTN (hypertension): Plan: Hold Entresto and diuretics (furosemide and spironolactone). BP slightly elevated but acceptable. (4) (HFpEF) heart failure with preserved ejection fraction: Plan: Volume status acceptable. Diuretics held. Hold Entresto. Document I/O's. (5) Anemia: Plan: Chronic, stable. Tsat 16. Single dose of venofer 200 mg provided yesterday and 2nd dose today. (6) Hyponatremia: Plan: Chronic. Euvolemic. Denies symptoms. Appetite good. Free water restriction to 1200 L. Oral NaHCO3 1300 mg BID. Improving. (7) PAD (peripheral artery disease): Plan: Imaging reviewed. (8) Type 2 diabetes mellitus with diabetic neuropathy, unspecified: Plan: Metformin held due to kidney dysfunction. Admission and Anticipated Discharge Date Admission Date: September 20, 2022 Subjective No acute events overnight. No complaints this morning. Adri was seen and evaluated with her son at the bedside. Denies fluid retention or edema. Activity tolerance improved. Denies abdominal pain. Would like to increase daily fluid allowance. Review of Systems Review of Systems: All systems reviewed & are unremarkable except as noted in HPI & below Physical Exam Constitutional: well developed; no acute distress Eyes: no scleral abnormality and no corneal abnormality ENMT: Mouth: no oral mucosal abnormality and oral mucous membranes not dry Neck: normal visual inspection and trachea midline Respiratory: normal respiratory effort Auscultation: lungs clear to auscultation bilaterally Cardiovascular: Rate/Rhythm: regular rate Heart Sounds: normal S1 and normal S2 Extremities: + edema (trace) Musculoskeletal: Extremities: no cyanosis and no clubbing Skin: normal turgor; no lesions Neurologic: Motor/Sensory: no tremor and no asterixis Psychiatric: Orientation: alert and oriented x 3 Results & Data Vital Signs (Past 12 Hours) Vital Signs Temp Pulse Resp BP Pulse Ox O2 Del Method O2 Flow Rate 09/25/22 08:18 36.6 C 65 18 161/82 H 95 Room Air 09/25/22 03:36 37.1 C 57 L 18 155/82 H 95 Nasal Cannula 2 09/24/22 22:00 36.7 C 52 L 18 143/55 H 94 Nasal Cannula 2 Laboratory Results Laboratory Results - last 24 hr 09/24/22 09/24/22 09/24/22 11:17 11:29 14:33 WBC RBC Hgb Hct MCV MCH MCHC RDW Std Deviation RDW Coeff of Alysa Plt Count MPV APTT 43.0 H* PTT Ratio 1.5 Sodium 125 L Potassium 4.5 Chloride 98 Carbon Dioxide 20 L Anion Gap 7 BUN 67 H Creatinine 4.28 H D Est Cr Clr Drug Dosing 10.3 Est GFR ( Amer) 10.6 Est GFR (Non-Af Amer) 9.2 BUN/Creatinine Ratio 15.7 Glucose 164 H POC Glucose 142 H Calcium 8.0 L Stl C. cayetanensis PCR Stool Rotavirus A PCR Stl Adenov F 40/41 PCR Stool Astrovirus (PCR) Stool Campylobacter PCR Stool Cryptosporidium PCR Stl E.coli Shiga Tox PCR Stl Enterotoxigenic E PCR Stool EPEC (PCR) Stool EAEC (PCR) Stl E. histolytica PCR Stool Giardia Lamblia PCR Stool Salmonella PCR Stool Sapovirus (PCR) Stl P. shigelloides PCR Stl Shigella/EIEC PCR St Y.enterocolitica PCR Stool Vibrio (PCR) Stl Vibrio cholerae PCR Stl Norovirus GI/GII PCR 09/24/22 09/24/22 09/24/22 16:15 16:26 20:20 WBC RBC Hgb Hct MCV MCH MCHC RDW Std Deviation RDW Coeff of Alysa Plt Count MPV APTT PTT Ratio Sodium Potassium Chloride Carbon Dioxide Anion Gap BUN Creatinine Est Cr Clr Drug Dosing Est GFR ( Amer) Est GFR (Non-Af Amer) BUN/Creatinine Ratio Glucose POC Glucose 163 H 170 H Calcium Stl C. cayetanensis PCR Not Detected Stool Rotavirus A PCR Not Detected Stl Adenov F 40/41 PCR Not Detected Stool Astrovirus (PCR) Not Detected Stool Campylobacter PCR Not Detected Stool Cryptosporidium PCR Not Detected Stl E.coli Shiga Tox PCR Not Detected Stl Enterotoxigenic E PCR Not Detected Stool EPEC (PCR) Not Detected Stool EAEC (PCR) Not Detected Stl E. histolytica PCR Not Detected Stool Giardia Lamblia PCR Not Detected Stool Salmonella PCR Not Detected Stool Sapovirus (PCR) Not Detected Stl P. shigelloides PCR Not Detected Stl Shigella/EIEC PCR Not Detected St Y.enterocolitica PCR Not Detected Stool Vibrio (PCR) Not Detected Stl Vibrio cholerae PCR Not Detected Stl Norovirus GI/GII PCR Not Detected 09/24/22 09/25/22 09/25/22 22:40 06:03 06:03 WBC 10.82 H RBC 2.92 L Hgb 8.1 L Hct 24.4 L MCV 83.6 MCH 27.7 MCHC 33.2 RDW Std Deviation 43.2 RDW Coeff of Alysa 14.1 Plt Count 413 H MPV 11.3 APTT 57.1 H* PTT Ratio 2.0 Sodium 129 L Potassium Chloride Carbon Dioxide Anion Gap BUN Creatinine Est Cr Clr Drug Dosing Est GFR ( Amer) Est GFR (Non-Af Amer) BUN/Creatinine Ratio Glucose POC Glucose Calcium Stl C. cayetanensis PCR Stool Rotavirus A PCR Stl Adenov F 40/ PCR Stool Astrovirus (PCR) Stool Campylobacter PCR Stool Cryptosporidium PCR Stl E.coli Shiga Tox PCR Stl Enterotoxigenic E PCR Stool EPEC (PCR) Stool EAEC (PCR) Stl E. histolytica PCR Stool Giardia Lamblia PCR Stool Salmonella PCR Stool Sapovirus (PCR) Stl P. shigelloides PCR Stl Shigella/EIEC PCR St Y.enterocolitica PCR Stool Vibrio (PCR) Stl Vibrio cholerae PCR Stl Norovirus GI/GII PCR 09/25/22 09/25/22 06:03 07:42 WBC RBC Hgb Hct MCV MCH MCHC RDW Std Deviation RDW Coeff of Alysa Plt Count MPV APTT PTT Ratio Sodium 133 L Potassium 4.2 Chloride 103 Carbon Dioxide 20 L Anion Gap 10 BUN 62 H Creatinine 3.53 H D Est Cr Clr Drug Dosing 12.3 Est GFR ( Amer) 13.4 Est GFR (Non-Af Amer) 11.6 BUN/Creatinine Ratio 17.6 Glucose 78 POC Glucose 93 Calcium 8.2 L Stl C. cayetanensis PCR Stool Rotavirus A PCR Stl Adenov F 40/41 PCR Stool Astrovirus (PCR) Stool Campylobacter PCR Stool Cryptosporidium PCR Stl E.coli Shiga Tox PCR Stl Enterotoxigenic E PCR Stool EPEC (PCR) Stool EAEC (PCR) Stl E. histolytica PCR Stool Giardia Lamblia PCR Stool Salmonella PCR Stool Sapovirus (PCR) Stl P. shigelloides PCR Stl Shigella/EIEC PCR St Y.enterocolitica PCR Stool Vibrio (PCR) Stl Vibrio cholerae PCR Stl Norovirus GI/GII PCR PG Care Time/CCT Total # of Minutes Spent Total Time Spent with Patient: Total time spent is greater than 50% in coordination of care (as documented) at patient's floor/unit and/or counseling patient: Coding Level of Care Code 70820 SUB INP/OBS CARE 3/50MIN Diagnoses LEV (acute kidney injury) N17.9 Ischemic colitis K55.9 HTN (hypertension) I10 (HFpEF) heart failure with preserved ejection fraction I50.30 Anemia D64.9 Hyponatremia E87.1 PAD (peripheral artery disease) I73.9 Type 2 diabetes mellitus with diabetic neuropathy, unspecified E11.40
--- NOTE | 2022-09-25 12:40 | Pharmacy Report ---
Pharmacy Glycemic Short Note 2 - Date of Service September 25, 2022 - Glycemic Short BSG Results (Last 24 hours): 09/24/22 09/24/22 09/24/22 14:33 16:26 20:20 Glucose 164 H POC Glucose 163 H 170 H 09/25/22 09/25/22 09/25/22 06:03 07:42 11:45 Glucose 78 POC Glucose 93 159 H OUTPATIENT ANTIDIABETIC REGIMEN: * Glimepiride 4 mg PO BID * Metformin 1000 mg PO BIDM * HbA1c: 6.2% (09/21/22) ASSESSMENT: 09/25: * Diet advanced to full liquid. * Continue to hold basal- fasting 93 mg/dL * BSGs acceptable, received 2 units of insulin yesterday * Will continue to monitor as diet advances, possibly sign off if BSGs remain stable * SCR has improved today, down to 3.53 09/24: * Clear diet ordered with breakfast. Fasting this AM 98 mg/dL- continue to hold basal * BSGs continue to be acceptable [phone] mg/dL, will continue current novolog parameters * SCr continues to climb, 4.75 today 09/23: * Adri received 5 units of insulin yesterday, all bolus. BSGs were: [phone] mg/dL. * Fasting BSG this AM was 125 mg/dL, controlled. Continue to hold basal insulin. * Lunchtime BSG trended up to 192 mg/dL today despite carb coverage with breakfast. If trend continues, then consider tighter carb ratio with breakfast. * Renal fxn continues to worsen, SCr: 1.80-->2.17-->3.36-->4.25 (today). 09/22: * BSGs trended up throughout the day yesterday * Received 2 units of bolus insulin only * Fasting BSG of 86 mg/dL this morning, will continue to hold off on basal at this time * Given BSG up-trend, will add a conservative carb coverage to Novolog today 09/21: * STEVE is an 82 year old female with ischemic colitis, currently undergoing conservative management * Very well-controlled T2DM as an outpatient, might consider discontinuation of glimepiride at discharge to simplify regimen and decrease risk of hypoglycemia * Patient has been intermittently hypoglycemic since time of admission * Consider dextrose fluids if not tolerating diet? * Conservative insulin (Novolog CF only) for now PLAN FOR INPATIENT GLYCEMIC CONTROL: * Hold outpatient oral diabetes medications * Basal insulin * hold * Bolus insulin * NovoLog per scale ACHS or Q6hrs while NPO * Goal Range: Low 120 mg/dL - High 150 mg/dL * Correction Factor: 45 mg/dL/unit * Nutritional / Prandial insulin per carb ratio of 1 unit per 20 grams CHO consumed
[2022-09-25] MEDS: HEPARIN SODIUM/DEXTROSE 25,000 UNITS/500 ML BAG IV SCH (14:34)
--- NOTE | 2022-09-25 15:33 | Surgery Progress Note ---
Date of Service September 25, 2022 Assessment & Plan (1) Ischemic colitis: Plan Doing well. Advancing diet as tolerated. We will sign off for now. Please call with questions. Admission and Anticipated Discharge Date Admission Date: September 20, 2022 Subjective Feeling better today. Tolerating diet. Denies any abdominal pain. Physical Exam Constitutional: WD/WN, vitals as above Gastrointestinal (Abdomen): Inspection/Auscultation: abdomen normal to inspection; abdomen not distended Percussion/Palpation: abdomen soft; abdomen nontender, no guarding and abdomen not rigid Results & Data Vital Signs (Past 12 Hours) Vital Signs Temp Pulse Pulse Resp BP Pulse Ox O2 Del Method 09/25/22 11:37 58 L 09/25/22 11:30 36.8 C 55 L 16 169/83 H 91 Room Air 09/25/22 08:18 36.6 C 65 18 161/82 H 95 Room Air 09/25/22 03:36 37.1 C 57 L 18 155/82 H 95 Nasal Cannula O2 Flow Rate 09/25/22 11:37 09/25/22 11:30 09/25/22 08:18 09/25/22 03:36 2
[2022-09-25] MEDS: CIPROFLOXACIN 500 MG TAB PO SCH (17:24)
[2022-09-25] MEDS: ASPIRIN 81 MG ECTAB PO SCH (20:37)
--- NOTE | 2022-09-25 21:34 | Hospitalist Progress Note ---
Date of Service September 25, 2022 Assessment & Plan (1) Ischemic colitis: Plan: RLQ abdominal pain started over the weekend and actually improving. CT A/P showing progression of circumferential thickening of ascending colon and cecum progressed from June, occluded proximal SMA and concern for partial small bowel obstruction Consult general surgery - discussed with Dr Zhu Consult vascular surgery: Dr. Cash returns on Friday. Over course of stay, patient's pain has improved. And diet was advanced. Heparin was initiated but stopped (due to slightly decreased hemoglobin) and diet was advanced. On 09/23, pain returned and patient was again placed NPO. Heparin restarted. WBC worsened, but by next day, pain again improved. Repeat imaging did not show any worsening. Patient again back on a clear liquid diet, and advanced on full liquid diet on 09/25 will continue supportive care, antibiotics. Diarrhea appears to have resolved on 09/23 Continue PO flagyl and cipro and will monitor her clinical progression. Stools again are loos on 09/25 will advance her diet in the AM to a low fiber diet. Patient will likely need to stay and be seen by Vascular surgery. (2) Urinary retention: Plan: Spears catheter placed in ER due to PVR 400ml. Previously in urine retention in Jul admission also leading to HFpEF - recommend urology follow up for O/P urodynamics. Consulted nephro as no urine output despite switching catheter. Randell Acute tubular necrosis, holding diuretics and spironolactone, consulted nephro, holding entresto. now making urine on 09/24, will monitor her urine output and renal function. reviewed her blood work on 09/24 and 09/25 creatinine is improving. (3) Acute respiratory failure with hypoxia: Plan: Suspect due to mild congestive pulmonary edema seen on CXR. Aim O2 sats > 90% (4) (HFpEF) heart failure with preserved ejection fraction: Plan: Acute on chronic suspect more due to urinary retention than problem with diuretic dosing or diet Continue her usual Lasix 40mg PO daily and spironolactone 25mg PO daily with spears catheter now in place. TTE performed in Jul, no need to repeat Strict I&Os Daily weights (5) LEV (acute kidney injury): Plan: Suspect due to urinary retention. Monitor BMP with spears catheter placement. (6) Paroxysmal atrial fibrillation: Plan: Not on anticoagulation due to GI bleeds and now maintaining sinus rhythm with amiodarone. (7) Type 2 diabetes mellitus with diabetic neuropathy, unspecified: Plan: Hold home glimepiride (8) Hypertension: Plan: Continue carvedilol, holding amlodipine, lasix, spironolactone and entresto Plan Disposition - admit to PCU Admission and Anticipated Discharge Date Admission Date: September 20, 2022 Subjective Patiwnt reports she is tolerating her diet, she states she has been having loose stools today. She reports she is making urine She reports no abdominal pain Review of Systems Review of Systems: All systems reviewed & are unremarkable except as noted in HPI & below Physical Exam Physical Exam: Constitutional: WD/WN, vitals as above Eyes: PERRL, conjunctivae normal, anicteric sclerae ENMT: external ear and nose normal, oropharynx normal Respiratory: normal respiratory effort Auscultation: + crackles (bibasal); no diminished lung sounds and no wheezes Cardiovascular: RRR, no murmur, no edema Gastrointestinal (Abdomen): Inspection/Auscultation: + abdomen distended Percussion/Palpation: softer,nontender guarding and abdomen soft; abdomen not rigid Musculoskeletal: no cyanosis or clubbing, extremities motor strength 5/5 Skin: no rashes, warm and dry Neurologic: moves all extremities and awake; no focal motor deficits and not co nfused Psychiatric: A+Ox3, euthymic affect Results & Data Results & Data Vital Signs (Past 12 Hours) Vital Signs Temp Pulse Pulse Resp BP Pulse Ox O2 Del Method 09/25/22 19:36 36.4 C L 59 L 18 164/78 H 96 Room Air 09/25/22 15:47 36.7 C 61 18 131/97 96 Room Air 09/25/22 11:37 58 L 09/25/22 11:30 36.8 C 55 L 16 169/83 H 91 Room Air PG Care Time/CCT Total # of Minutes Spent Total Time Spent with Patient: Total time spent is greater than 50% in coordination of care (as documented) at patient's floor/unit and/or counseling patient: Coding Level of Care Code 24020 SUB INP/OBS CARE 3/50MIN Diagnoses Ischemic colitis K55.9 Urinary retention R33.9 Acute respiratory failure with hypoxia J96.01 (HFpEF) heart failure with preserved ejection fraction I50.30 LEV (acute kidney injury) N17.9 Paroxysmal atrial fibrillation I48.0 Type 2 diabetes mellitus with diabetic neuropathy, unspecified E11.40 Hypertension I10 Hypertension type: unspecified (8) Hypertension Hypertension type: unspecified Qualified Code(s): I10 - Essential (primary) hypertension
[2022-09-26] MEDS ORDERED: LOPERAMIDE HCL 2 MG CAP PO STA (00:05)
[2022-09-26 06:38] LABS: Albumin Level 2.9 gm/dl (3.4-5.0); BUN Creatinine Ratio 20.3 (10-20); Calcium 8.3 mg/dl (8.6-10.3); Creatinine Clr Calc Pharmacy 19.1 ml/min; Est GFR (African American) 22.9 ml/min; Est GFR (Non-African American) 19.7 ml/min; Phosphorus 3.7 mg/dl (2.5-4.9); Potassium 4.2 mmol/L (3.5-5.1)
[2022-09-26 07:09] LABS: Partial Thromboplastin Ratio 2.3
--- NOTE | 2022-09-26 07:13 | Hospitalist Progress Note ---
Date of Service September 26, 2022 Assessment & Plan (1) Ischemic colitis: Plan: acute on chronic high risk CT A/P showing progression of circumferential thickening of ascending colon and cecum progressed from June, occluded proximal SMA and concern for partial small bowel obstruction PT improved on heparin(transiently worsened when stopped) Deit advanced, low fiber diet. Continue PO flagyl and cipro and will monitor her clinical progression. awaiting opinion of Vascular surgery. (2) Urinary retention: Plan: acute self limited, Castañeda catheter placed in ER due to PVR 400ml. PT progressed to LEV. Cr peaked at 4.7 down to 2.2 Despite catheter, low urine output, likley Acute tubular necrosis, Neprology is following, holding neprhotoxic agents (3) Acute respiratory failure with hypoxia: Plan: Suspect due to mild congestive pulmonary edema seen on CXR. secondary to HFpEF diuretics held in face of renal failure (4) (HFpEF) heart failure with preserved ejection fraction: Plan: Acute on chronic, contributed to by Paroxysmal Afib, Chronic stable rate Control with coreg (5) Paroxysmal atrial fibrillation: Plan: Not on anticoagulation due to GI bleeds and now maintaining sinus rhythm with amiodarone. (6) Type 2 diabetes mellitus with diabetic neuropathy, unspecified: Plan: chronic stable Hold home glimepiride, on insulin ssi with variable diet Plan Disposition - admit to PCU Admission and Anticipated Discharge Date Admission Date: September 20, 2022 Physical Exam Physical Exam: Patient is without distress she is a bit confused over things she has no recollection of any abdominal pain she is vomiting and diarrhea at the present time Her card exam is regular Lungs are clear Abdomen is with NABS and soft Results & Data Results & Data Vital Signs (Past 12 Hours) Vital Signs Temp Pulse Pulse Resp BP Pulse Ox O2 Del Method 09/26/22 03:44 98.1 F 59 L 18 163/71 H 93 Room Air 09/25/22 19:45 Room Air 09/25/22 22:00 54 L 09/25/22 22:49 98.1 F 57 L 18 158/57 H 95 Room Air 09/25/22 19:36 97.5 F L 59 L 18 164/78 H 96 Room Air Laboratory Results Reviewed PTT Reviewed PRP PG Care Time/CCT Total # of Minutes Spent Total Time Spent with Patient: Total time spent is greater than 50% in coordination of care (as documented) at patient's floor/unit and/or counseling patient: Coding Level of Care Code 89743 SUB INP/OBS CARE 2MIN Diagnoses Ischemic colitis K55.9 Urinary retention R33.9 Acute respiratory failure with hypoxia J96.01 (HFpEF) heart failure with preserved ejection fraction I50.30 Paroxysmal atrial fibrillation I48.0 Type 2 diabetes mellitus with diabetic neuropathy, unspecified E11.40
[2022-09-26 07:21] LABS: Partial Thromboplastin Time 64.4 Seconds (21.0-31.0)
[2022-09-26] MEDS: INSULIN ASPART PER UNIT CHARGE SC SCH ×4 (09:00→21:05)
[2022-09-26] MEDS: metroNIDAZOLE 500 MG TAB PO SCH ×3 (09:00→20:18)
[2022-09-26] MEDS: carvediloL 6.25 MG TAB PO SCH ×2 (09:00→20:18)
[2022-09-26] MEDS: AMIODARONE 200 MG TAB PO SCH (09:01)
[2022-09-26] MEDS: CLOPIDOGREL BISULFATE 75 MG TAB PO SCH (09:01)
[2022-09-26] MEDS: ATORVASTATIN 40 MG TAB PO SCH (09:01)
[2022-09-26] MEDS: PANTOprazole 40 MG TAB PO SCH ×2 (09:01→20:18)
--- NOTE | 2022-09-26 10:29 | Nephrology Progress Note ---
Date of Service September 26, 2022 Assessment & Plan (1) LEV (acute kidney injury): Plan: Non-oliguric. Volume status euvolemic. Electrolytes normal. Creatinine continues to improve. Clinical presentation consistent with ATN in the setting of CT w/ contrast and ischemic colitis. UA bland on admission. Hold Entresto. Document strict I/O's. Repeat metabolic profile tomorrow AM. (2) Ischemic colitis: Plan: Clinically improving with supportive care. Management per hospitalist team. (3) HTN (hypertension): Plan: Hold Entresto and diuretics (furosemide and spironolactone). BP slightly elevated but acceptable. (4) (HFpEF) heart failure with preserved ejection fraction: Plan: Volume status acceptable. Diuretics held. Hold Entresto. Document I/O's. (5) Anemia: Plan: Chronic, stable. Tsat 16. Single dose of venofer 200 mg provided 09/24 and 2nd dose 09/25. (6) Hyponatremia: Plan: Improved. Chronic. Euvolemic. Denies symptoms. Appetite good. Free water restriction to 1500 L. Stop NaHCO3. (7) PAD (peripheral artery disease): Plan: Imaging reviewed. (8) Type 2 diabetes mellitus with diabetic neuropathy, unspecified: Plan: Metformin held due to kidney dysfunction. Admission and Anticipated Discharge Date Admission Date: September 20, 2022 Subjective No acute events overnight. No complaints this AM. Out of bed to bathroom. Strength improving. Denies pain. Review of Systems Review of Systems: All systems reviewed & are unremarkable except as noted in HPI & below Physical Exam Constitutional: well developed; no acute distress Eyes: no scleral abnormality and no corneal abnormality ENMT: Mouth: no oral mucosal abnormality and oral mucous membranes not dry Neck: normal visual inspection and trachea midline Respiratory: normal respiratory effort Auscultation: lungs clear to auscultation bilaterally Cardiovascular: Rate/Rhythm: regular rate Heart Sounds: normal S1 and normal S2 Extremities: + edema (trace) Musculoskeletal: Extremities: no cyanosis and no clubbing Skin: normal turgor; no lesions Neurologic: Motor/Sensory: no tremor and no asterixis Psychiatric: Orientation: alert and oriented x 3 Results & Data Vital Signs (Past 12 Hours) Vital Signs Temp Pulse Resp BP BP Pulse Ox O2 Del Method 09/26/22 07:44 36.8 C 65 17 178/78 H 93 Room Air 09/26/22 03:44 36.7 C 59 L 18 163/71 H 93 Room Air 09/25/22 22:49 36.7 C 57 L 18 158/57 H 95 Room Air Laboratory Results Laboratory Results - last 24 hr 09/25/22 09/25/22 09/25/22 11:45 16:35 20:12 APTT PTT Ratio Sodium Potassium Chloride Carbon Dioxide Anion Gap BUN Creatinine Est Cr Clr Drug Dosing Est GFR ( Amer) Est GFR (Non-Af Amer) BUN/Creatinine Ratio Glucose POC Glucose 159 H 185 H 150 H Calcium Phosphorus Albumin 09/26/22 09/26/22 09/26/22 05:47 05:47 07:42 APTT 64.4 H* PTT Ratio 2.3 Sodium 137 Potassium 4.2 Chloride 106 Carbon Dioxide 24 Anion Gap 7 BUN 46 H Creatinine 2.27 H D Est Cr Clr Drug Dosing 19.1 Est GFR ( Amer) 22.9 Est GFR (Non-Af Amer) 19.7 BUN/Creatinine Ratio 20.3 H Glucose 126 H POC Glucose 137 H Calcium 8.3 L Phosphorus 3.7 Albumin 2.9 L PG Care Time/CCT Total # of Minutes Spent Total Time Spent with Patient: Total time spent is greater than 50% in coordination of care (as documented) at patient's floor/unit and/or counseling patient: Coding Level of Care Code 35896 SUB INP/OBS CARE 3/50MIN Diagnoses LEV (acute kidney injury) N17.9 Ischemic colitis K55.9 HTN (hypertension) I10 (HFpEF) heart failure with preserved ejection fraction I50.30 Anemia D64.9 Hyponatremia E87.1 PAD (peripheral artery disease) I73.9 Type 2 diabetes mellitus with diabetic neuropathy, unspecified E11.40
[2022-09-26] MEDS: HEPARIN SODIUM/DEXTROSE 25,000 UNITS/500 ML BAG IV SCH (11:42)
[2022-09-26] MEDS: CIPROFLOXACIN 500 MG TAB PO SCH (17:17)
[2022-09-26] MEDS ORDERED: Nursing to Pharmacy Communication SCH (18:30)
[2022-09-26] MEDS: ASPIRIN 81 MG ECTAB PO SCH (20:18)
[2022-09-26] MEDS: ACETAMINOPHEN 325 MG TAB PO PRN (21:26)
[2022-09-27 06:34] LABS: Albumin Level 2.9 gm/dl (3.4-5.0); BUN Creatinine Ratio 19.6 (10-20); Calcium 8.4 mg/dl (8.6-10.3); Creatinine Clr Calc Pharmacy 22.5 ml/min; Est GFR (African American) 28.5 ml/min; Est GFR (Non-African American) 24.6 ml/min; Phosphorus 3.2 mg/dl (2.5-4.9); Potassium 4.5 mmol/L (3.5-5.1)
[2022-09-27 07:03] LABS: Partial Thromboplastin Ratio 1.1; Partial Thromboplastin Time 31.1 Seconds (21.0-31.0)
[2022-09-27] MEDS: ATORVASTATIN 40 MG TAB PO SCH (08:09)
[2022-09-27] MEDS: carvediloL 6.25 MG TAB PO SCH ×2 (08:09→20:28)
[2022-09-27] MEDS: PANTOprazole 40 MG TAB PO SCH ×2 (08:09→20:28)
[2022-09-27] MEDS: AMIODARONE 200 MG TAB PO SCH (08:10)
[2022-09-27] MEDS: metroNIDAZOLE 500 MG TAB PO SCH ×3 (08:10→20:28)
[2022-09-27] MEDS: CLOPIDOGREL BISULFATE 75 MG TAB PO SCH (08:10)
[2022-09-27] MEDS: INSULIN ASPART PER UNIT CHARGE SC SCH ×4 (08:15→20:26)
[2022-09-27] MEDS: LANTUS PER UNIT CHARGE SC SCH (08:15)
[2022-09-27 09:38] LABS: Hematocrit (blood only) 21.1 % (37.0-47.0); Mean Corpuscular Hemoglobin 28.1 pg (25.0-34.0); Mean Corpuscular Hgb Conc 33.2 g/dL (32.0-36.0); Mean Corpuscular Volume 84.7 fL (80.0-100.0); Mean Platelet Volume 11.3 fL (9.4-12.4); Platelet Count 390 K/uL (130-400); RDW Coefficient of Variation 14.6 % (11.5-14.5); Red Blood Count 2.49 M/uL (4.20-5.40); White Blood Count 9.98 K/ul (4.8-10.8)
--- NOTE | 2022-09-27 10:04 | Nephrology Progress Note ---
Date of Service September 27, 2022 Assessment & Plan (1) LEV (acute kidney injury): Plan: Clinical presentation consistent with ATN in the setting of CT w/ contrast and ischemic colitis. Creatinine improved to baseline. Volume status euvolemic. Electrolytes normal. If kidney function remains stable tomorrow, Entresto may be restarted as needed. Monitor metabolic profile daily while inpatient. Arrange outpatient nephrology follow up at discharge. No additional nephrology recommendations at this time. Nephrology will sign-off. Please call with questions or concerns. (2) Ischemic colitis: (3) HTN (hypertension): Plan: Continue to hold diuretics (furosemide and spironolactone). Restart Entresto when needed. (4) (HFpEF) heart failure with preserved ejection fraction: Plan: Volume status acceptable. Diuretics held but may be restarted as needed. Entresto held, consider restarting in next 24 hours if kidney function stable. Document I/O's. (5) Anemia: Plan: Chronic, stable. Tsat 16. Single dose of venofer 200 mg provided 09/24 and 2nd dose 09/25. (6) Hyponatremia: Plan: Chronic with history suggestive of underlying SIADH. Euvolemic.Maintain free water restriction of 1500 L. (7) PAD (peripheral artery disease): (8) Type 2 diabetes mellitus with diabetic neuropathy, unspecified: Plan: Metformin may be restarted at discharge. Admission and Anticipated Discharge Date Admission Date: September 20, 2022 Subjective No acute events overnight. No complaints this AM. Sitting comfortably in bedside chair. Denies abdominal pain. Some reported blood in stool yesterday. Heparin gtt stopped. Adri denies any melena or hematochezia this AM. Review of Systems Review of Systems: All systems reviewed & are unremarkable except as noted in HPI & below Physical Exam Constitutional: well developed; no acute distress Eyes: no scleral abnormality and no corneal abnormality Neck: normal visual inspection and trachea midline Respiratory: normal respiratory effort Auscultation: lungs clear to auscultation bilaterally Cardiovascular: Rate/Rhythm: regular rate Heart Sounds: normal S1 and normal S2 Extremities: + edema (trace) Musculoskeletal: Extremities: no cyanosis and no clubbing Skin: normal turgor; no lesions Neurologic: Motor/Sensory: no tremor and no asterixis Psychiatric: Orientation: alert and oriented x 3 Results & Data Vital Signs (Past 12 Hours) Vital Signs Temp Pulse Pulse Resp BP BP Pulse Ox 09/27/22 07:23 36.6 C 60 18 170/69 H 91 09/27/22 03:54 36.8 C 53 L 18 156/58 H 93 09/26/22 22:03 56 L 09/26/22 23:40 36.8 C 61 18 160/67 H 94 O2 Del Method 09/27/22 07:23 Room Air 09/27/22 03:54 Room Air 09/26/22 22:03 09/26/22 23:40 Room Air Laboratory Results Laboratory Results - last 24 hr 09/26/22 09/26/22 09/26/22 11:25 15:55 20:20 WBC RBC Hgb Hct MCV MCH MCHC RDW Std Deviation RDW Coeff of Alysa Plt Count MPV APTT PTT Ratio Sodium Potassium Chloride Carbon Dioxide Anion Gap BUN Creatinine Est Cr Clr Drug Dosing Est GFR ( Amer) Est GFR (Non-Af Amer) BUN/Creatinine Ratio Glucose POC Glucose 161 H 133 H 170 H Calcium Phosphorus Albumin 09/27/22 09/27/22 09/27/22 06:03 06:03 06:06 WBC 9.98 RBC 2.49 L Hgb 7.0 L Hct 21.1 L MCV 84.7 MCH 28.1 MCHC 33.2 RDW Std Deviation 45.0 RDW Coeff of Alysa 14.6 H Plt Count 390 MPV 11.3 APTT 31.1 H PTT Ratio 1.1 Sodium 137 Potassium 4.5 Chloride 106 Carbon Dioxide 26 Anion Gap 5 BUN 37 H Creatinine 1.89 H D Est Cr Clr Drug Dosing 22.5 Est GFR ( Amer) 28.5 Est GFR (Non-Af Amer) 24.6 BUN/Creatinine Ratio 19.6 Glucose 135 H POC Glucose Calcium 8.4 L Phosphorus 3.2 Albumin 2.9 L 09/27/22 07:16 WBC RBC Hgb Hct MCV MCH MCHC RDW Std Deviation RDW Coeff of Alysa Plt Count MPV APTT PTT Ratio Sodium Potassium Chloride Carbon Dioxide Anion Gap BUN Creatinine Est Cr Clr Drug Dosing Est GFR ( Amer) Est GFR (Non-Af Amer) BUN/Creatinine Ratio Glucose POC Glucose 147 H Calcium Phosphorus Albumin PG Care Time/CCT Total # of Minutes Spent Total Time Spent with Patient: Total time spent is greater than 50% in coordination of care (as documented) at patient's floor/unit and/or counseling patient: Coding Level of Care Code 68818 SUB INP/OBS CARE 350MIN Diagnoses LEV (acute kidney injury) N17.9 Ischemic colitis K55.9 HTN (hypertension) I10 (HFpEF) heart failure with preserved ejection fraction I50.30 Anemia D64.9 Hyponatremia E87.1 PAD (peripheral artery disease) I73.9 Type 2 diabetes mellitus with diabetic neuropathy, unspecified E11.40
--- NOTE | 2022-09-27 12:48 | Pharmacy Report ---
Pharmacy Glycemic Short Note 2 - Date of Service September 27, 2022 - Glycemic Short BSG Results (Last 24 hours): 09/26/22 09/26/22 09/27/22 15:55 20:20 06:03 Glucose 135 H POC Glucose 133 H 170 H 09/27/22 09/27/22 07:16 11:30 Glucose POC Glucose 147 H 184 H OUTPATIENT ANTIDIABETIC REGIMEN: * Glimepiride 4 mg PO BID * Metformin 1000 mg PO BIDM * HbA1c: 6.2% (09/21/22) ASSESSMENT: 09/27: * BSGs yesterday [phone] mg/dL, no basal, 7 units of prandial/correctional * Fasting 147 mg/dl this AM- will add small dose of lantus 5 units this morning and reassess in AM * Renal function continues to improve, tightened carb ratio slightly, monitor for further tightening 09/25: * Diet advanced to full liquid. * Continue to hold basal- fasting 93 mg/dL * BSGs acceptable, received 2 units of insulin yesterday * Will continue to monitor as diet advances, possibly sign off if BSGs remain stable * SCR has improved today, down to 3.53 09/24: * Clear diet ordered with breakfast. Fasting this AM 98 mg/dL- continue to hold basal * BSGs continue to be acceptable [phone] mg/dL, will continue current novolog parameters * SCr continues to climb, 4.75 today 09/23: * Adri received 5 units of insulin yesterday, all bolus. BSGs were: [phone] mg/dL. * Fasting BSG this AM was 125 mg/dL, controlled. Continue to hold basal insulin. * Lunchtime BSG trended up to 192 mg/dL today despite carb coverage with breakfast. If trend continues, then consider tighter carb ratio with breakfast. * Renal fxn continues to worsen, SCr: 1.80-->2.17-->3.36-->4.25 (today). 09/22: * BSGs trended up throughout the day yesterday * Received 2 units of bolus insulin only * Fasting BSG of 86 mg/dL this morning, will continue to hold off on basal at this time * Given BSG up-trend, will add a conservative carb coverage to Novolog today 09/21: * FH is an 82 year old female with ischemic colitis, currently undergoing conservative management * Very well-controlled T2DM as an outpatient, might consider discontinuation of glimepiride at discharge to simplify regimen and decrease risk of hypoglycemia * Patient has been intermittently hypoglycemic since time of admission * Consider dextrose fluids if not tolerating diet? * Conservative insulin (Novolog CF only) for now PLAN FOR INPATIENT GLYCEMIC CONTROL: * Hold outpatient oral diabetes medications * Basal insulin * 5 units SQ qAM * Bolus insulin * NovoLog per scale ACHS or Q6hrs while NPO * Goal Range: Low 120 mg/dL - High 150 mg/dL * Correction Factor: 45 mg/dL/unit * Nutritional / Prandial insulin per carb ratio of 1 unit per 18 grams CHO consumed
[2022-09-27] MEDS: CIPROFLOXACIN 500 MG TAB PO SCH (17:05)
[2022-09-27] MEDS: ACETAMINOPHEN 325 MG TAB PO PRN (18:18)
--- NOTE | 2022-09-27 18:49 | Hospitalist Progress Note ---
Date of Service September 27, 2022 Assessment & Plan (1) Ischemic colitis: Plan: acute on chronic high risk CT A/P showing progression of circumferential thickening of ascending colon and cecum progressed from June, occluded proximal SMA and concern for partial small bowel obstruction PT improved on heparin(transiently worsened when stopped) however with bloody bowel movements in the evening of 09/26 heparin drip was discontinued and no recurrence of abdominal pain at this point time Deit advanced, low fiber diet. Continue PO flagyl and cipro and will monitor her clinical progression. Family updated at bedside extensively on 428 awaiting opinion of Vascular surgery. Vascular surgery expected to return the beginning of September (2) Urinary retention: Plan: acute self limited, Castañeda catheter placed in ER due to PVR 400ml. PT progressed to LEV. LEV is resolved chronic kidney disease stage 4 is now present Despite catheter, low urine output, likley Acute tubular necrosis, Neprology is following, holding neprhotoxic agents (3) Acute respiratory failure with hypoxia: Plan: Acute resolvedsuspect due to mild congestive pulmonary edema seen on CXR. secondary to HFpEF diuretics held in face of renal failure (4) (HFpEF) heart failure with preserved ejection fraction: Plan: Acute on chronic, contributed to by Paroxysmal Afib, Chronic stable rate Control with coreg (5) Paroxysmal atrial fibrillation: Plan: Not on anticoagulation due to GI bleeds and now maintaining sinus rhythm with amiodarone. (6) Type 2 diabetes mellitus with diabetic neuropathy, unspecified: Plan: chronic stable Hold home glimepiride, on insulin ssi with variable diet Plan Disposition - admit to PCU Admission and Anticipated Discharge Date Admission Date: September 20, 2022 Subjective Patient has no recurrence or abdominal pain after heparin's been stopped she has no continued bleeding or rectal blood or bowel movements Physical Exam Physical Exam: Card exam is regular with a systolic murmur lungs are clear no wheezes or crackles Abdomen is NABS soft there is no focal tenderness Results & Data Results & Data Vital Signs (Past 12 Hours) Vital Signs Temp Pulse Resp BP Pulse Ox O2 Del Method 09/27/22 15:48 98.2 F 59 L 20 157/63 H 94 Room Air 09/27/22 11:52 98.2 F 53 L 22 162/89 H 94 Room Air 09/27/22 07:23 97.9 F 60 18 170/69 H 91 Room Air Laboratory Results Reviewed CBC Reviewed PRP PG Care Time/CCT Total # of Minutes Spent Total Time Spent with Patient: Total time spent is greater than 50% in coordination of care (as documented) at patient's floor/unit and/or counseling patient: Coding Level of Care Code 97993 SUB INP/OBS CARE 2/35MIN Diagnoses Ischemic colitis K55.9 Urinary retention R33.9 Acute respiratory failure with hypoxia J96.01 (HFpEF) heart failure with preserved ejection fraction I50.30 Paroxysmal atrial fibrillation I48.0 Type 2 diabetes mellitus with diabetic neuropathy, unspecified E11.40
[2022-09-27] MEDS: ASPIRIN 81 MG ECTAB PO SCH (20:28)
[2022-09-28] MEDS: ACETAMINOPHEN 325 MG TAB PO PRN ×2 (03:16→13:16)
[2022-09-28 07:39] LABS: Hematocrit (blood only) 24.3 % (37.0-47.0); Hemoglobin 7.8 g/dl (12.0-16.0); Mean Corpuscular Hemoglobin 28.2 pg (25.0-34.0); Mean Corpuscular Hgb Conc 32.1 g/dL (32.0-36.0); Mean Corpuscular Volume 87.7 fL (80.0-100.0); Mean Platelet Volume 11.4 fL (9.4-12.4); Platelet Count 420 K/uL (130-400); RDW Coefficient of Variation 14.9 % (11.5-14.5); RDW Standard Deviation 47.4 fL (36.4-46.3); Red Blood Count 2.77 M/uL (4.20-5.40); White Blood Count 10.98 K/ul (4.8-10.8)
[2022-09-28 07:56] LABS: Hematocrit (blood only) 23.3 % (37.0-47.0); Hemoglobin 7.5 g/dl (12.0-16.0); Mean Corpuscular Hemoglobin 28.3 pg (25.0-34.0); Mean Corpuscular Hgb Conc 32.2 g/dL (32.0-36.0); Mean Corpuscular Volume 87.9 fL (80.0-100.0); Mean Platelet Volume 11.1 fL (9.4-12.4); Platelet Count 414 K/uL (130-400); RDW Coefficient of Variation 14.7 % (11.5-14.5); RDW Standard Deviation 46.5 fL (36.4-46.3); Red Blood Count 2.65 M/uL (4.20-5.40); White Blood Count 9.96 K/ul (4.8-10.8)
[2022-09-28 08:02] LABS: Albumin Globulin Ratio 1.3 (0.9-2); Albumin Level 3.4 gm/dl (3.4-5.0); BUN Creatinine Ratio 19.3 (10-20); Bilirubin,Total 0.4 mg/dl (0.2-1.0); Creatinine Clr Calc Pharmacy 24.4 ml/min; Est GFR (African American) 31.1 ml/min; Est GFR (Non-African American) 26.8 ml/min; Globulin 2.6 gm/dl (2.5-4.0); Potassium 4.9 mmol/L (3.5-5.1)
[2022-09-28] MEDS: PANTOprazole 40 MG TAB PO SCH ×2 (08:11→22:10)
[2022-09-28] MEDS: metroNIDAZOLE 500 MG TAB PO SCH ×3 (08:12→22:10)
[2022-09-28] MEDS: carvediloL 6.25 MG TAB PO SCH ×2 (08:12→22:10)
[2022-09-28] MEDS: CLOPIDOGREL BISULFATE 75 MG TAB PO SCH (08:13)
[2022-09-28] MEDS: ATORVASTATIN 40 MG TAB PO SCH (08:13)
[2022-09-28] MEDS: AMIODARONE 200 MG TAB PO SCH (08:13)
[2022-09-28] MEDS: LANTUS PER UNIT CHARGE SC SCH (08:15)
[2022-09-28] MEDS: INSULIN ASPART PER UNIT CHARGE SC SCH ×4 (08:15→20:48)
--- NOTE | 2022-09-28 15:24 | Hospitalist Progress Note ---
Date of Service September 28, 2022 Assessment & Plan (1) Ischemic colitis: Plan: acute on chronic high risk CT A/P showing progression of circumferential thickening of ascending colon and cecum progressed from June, occluded proximal SMA and concern for partial small bowel obstruction PT improved on heparin(transiently worsened when stopped) however with bloody bowel movements in the evening of 09/26 heparin drip was discontinued and no recurrence of abdominal pain at this point time Deit advanced, low fiber diet. Continue PO flagyl and cipro and will monitor her clinical progression. Acute blood loss anemia is noted hemoglobin is hovering in the 7-8 range not having transfusion at this time, iron studies are low normal will give 1 low- dose of Venna fair today awaiting opinion of Vascular surgery. Vascular surgery expected to return the beginning of September (2) Urinary retention: Plan: acute self limited, Castañeda catheter placed in ER due to PVR 400ml. PT progressed to LEV. LEV is resolved chronic kidney disease stage 4 is now present Despite catheter, low urine output, likley Acute tubular necrosis, Neprology is following, holding neprhotoxic agents (3) Acute respiratory failure with hypoxia: Plan: Acute resolvedsuspect due to mild congestive pulmonary edema seen on CXR. secondary to HFpEF diuretics held in face of renal failure (4) (HFpEF) heart failure with preserved ejection fraction: Plan: Acute on chronic, contributed to by Paroxysmal Afib, Chronic stable rate Control with coreg (5) Paroxysmal atrial fibrillation: Plan: Not on anticoagulation due to GI bleeds in the past and now maintaining sinus rhythm with amiodarone. (6) Type 2 diabetes mellitus with diabetic neuropathy, unspecified: Plan: chronic stable Hold home glimepiride, on insulin ssi with variable diet Plan Disposition - admit to PCU Admission and Anticipated Discharge Date Admission Date: September 20, 2022 Subjective Patient has no recurrence or abdominal pain after heparin's been stopped she has no continued bleeding or rectal blood or bowel movements Patient is ambulating short distances and tolerating oral intake Physical Exam Physical Exam: Card exam is regular with a systolic murmur lungs are clear no wheezes or crackles Abdomen is NABS soft there is no focal tenderness Results & Data Results & Data Vital Signs (Past 12 Hours) Vital Signs Temp Pulse Pulse Resp BP BP Pulse Ox 09/28/22 15:20 98.6 F 62 17 174/77 H 92 09/28/22 13:20 164/69 H 04/29/23 11:14 98.2 F 67 19 185/62 H 92 09/28/22 07:56 59 L 09/28/22 07:45 98.2 F 62 17 190/80 H 177/83 H 92 O2 Del Method 09/28/22 15:20 Room Air 09/28/22 13:20 09/28/22 11:14 Room Air 09/28/22 07:56 09/28/22 07:45 Room Air PG Care Time/CCT Total # of Minutes Spent Total Time Spent with Patient: Total time spent is greater than 50% in coordination of care (as documented) at patient's floor/unit and/or counseling patient: Coding Level of Care Code 95168 SUB INP/OBS CARE 2/35MIN Diagnoses Ischemic colitis K55.9 Urinary retention R33.9 Acute respiratory failure with hypoxia J96.01 (HFpEF) heart failure with preserved ejection fraction I50.30 Paroxysmal atrial fibrillation I48.0 Type 2 diabetes mellitus with diabetic neuropathy, unspecified E11.40
[2022-09-28] MEDS ORDERED: IRON SUCROSE 200 MG in 0.9 % SODIUM CHLORIDE 100 ML IV ONE (15:30)
[2022-09-28] MEDS: CIPROFLOXACIN 500 MG TAB PO SCH (17:28)
[2022-09-28] MEDS ORDERED: Patient's ALLERGY Info needs ENTERED SCH (20:45)
[2022-09-28] MEDS: ONDANSETRON INJ 2 MG/ML 2 ML VIAL IV PRN (21:00)
[2022-09-28 21:23] LABS: Hematocrit (blood only) 23.5 % (37.0-47.0); Hemoglobin 7.6 g/dl (12.0-16.0)
--- NOTE | 2022-09-28 22:20 | XRay Report ---
KUB CLINICAL HISTORY: Hematochezia. FINDINGS: 2 AP supine abdominal radiographs are correlated with abdominal CT dated 09/23/2022. There i s a nonobstructed abdominal bowel gas pattern. No evidence of intraperitoneal free air is seen on the se supine images. There are no abnormal abdominal calcifications. Phleboliths are noted in the pelvis . The skeletal structures are osteopenic and appear intact. There is mild to moderate lumbosacral spo ndylosis. A pleural effusion is seen at the right lung base. IMPRESSION: 1. Nonobstructed abdominal bowel gas pattern. 2. Right pleural effusion. Electronically signed by: Arun Amador M.D. 09/28/2022 10:18 PM
--- NOTE | 2022-09-28 23:28 | CT Scan Report ---
Exam(s): CT ABDOMEN + PELVIS Without Contrast EXAM: CT Abdomen and Pelvis Without Intravenous Contrast CLINICAL HISTORY: Reason for exam: New bloody bowel movements, ischemic colitis. TECHNIQUE: Axial computed tomography images of the abdomen and pelvis without intravenous contrast. Automated exposure control was utilized for the study. A dose lowering technique was utilized adhering to the principles of ALARA. COMPARISON: 09/23/2022. FINDINGS: Lung bases: Bilateral lower lobe opacity suggestive of atelectasis versus infiltrate. Pleural space: Mild to moderate right-sided pleural effusion. Heart: Unremarkable. No significant pericardial effusion. Normal cardiac size with coronary artery calcifications. ABDOMEN: Liver: Unremarkable. Gallbladder and bile ducts: Possible tiny gallstones. No ductal dilation. Pancreas: Unremarkable. No ductal dilation. Spleen: Unremarkable. No splenomegaly. Adrenals: Unremarkable. No mass. Kidneys and ureters: Mild bilateral perinephric stranding otherwise normal bilateral kidneys. No obstructing stones. No hydronephrosis. Stomach and bowel: Thickening of the wall of the colon, most severe at the level of the cecum and ascending portion concerning for colitis. Due to and more significant distention in the proximal right colon, an inflammatory neoplasm cannot be excluded. Nonvisualized appendix. PELVIS: Appendix: No findings to suggest acute appendicitis. Bladder: Unremarkable. No stones. Reproductive: The uterus is atrophic. ABDOMEN and PELVIS: Intraperitoneal space: Unremarkable. No free air. No significant fluid collection. Bones/joints: Advanced multilevel degenerative disease of the spine. There is bifemoral bypass. No acute fracture. No dislocation. Soft tissues: Fluid infiltration of subcutaneous fat suggestive of anasarca versus cellulitis. Vasculature: See above. Lymph nodes: Unremarkable. No enlarged lymph nodes. IMPRESSION: 1. Findings most compatible with colitis, most severe the cecum and right-sided colon. Cannot exclude inflammatory neoplasm. Recommend follow-up with colonoscopy following treatment and resolution of symptoms. 2. Possible tiny gallstones which may be further assessed with right upper quadrant ultrasound if clinically indicated. 3. Right-sided pleural effusion with bilateral lower lobe atelectasis versus pneumonia, clinical correlation recommended. Electronically signed by: Danette Jones MD 09/28/22 23:27 PM
[2022-09-29] MEDS: ACETAMINOPHEN 325 MG TAB PO PRN (03:06)
[2022-09-29] MEDS: ONDANSETRON INJ 2 MG/ML 2 ML VIAL IV PRN (03:06)
--- NOTE | 2022-09-29 07:37 | Hospitalist Progress Note ---
Date of Service September 29, 2022 Assessment & Plan (1) Ischemic colitis: Plan: acute on chronic high risk CT abd/pelvis 09/28/22 colitis, most severe the cecum and right-sided colon. Cannot exclude inflammatory neoplasm. Recommend follow-up with colonoscopy following treatment and resolution of symptoms. We will change antibiotics to Zosyn anticipate GI and general surgery reconsultation on 09/30/2022 Acute blood loss anemia did receive Venna fair will have [place] packed red blood cells on 09/29/2022 awaiting opinion of general surgery, GI medicine and vascular surgery. Vascular surgery expected to return this week (2) Urinary retention: Plan: acute self limited, Castañeda catheter placed in ER due to PVR 400ml. PT progressed to LEV. LEV is resolved chronic kidney disease stage 4 is now present Despite catheter, low urine output, likley Acute tubular necrosis, Neprology is following, holding neprhotoxic agents (3) Acute respiratory failure with hypoxia: Plan: Acute resolvedsuspect due to mild congestive pulmonary edema seen on CXR. secondary to HFpEF diuretics held in face of renal failure, however will be given 20 mg of Lasix between 2 units of blood (4) (HFpEF) heart failure with preserved ejection fraction: Plan: Acute on chronic, contributed to by Paroxysmal Afib, Chronic stable rate Control with coreg (5) Paroxysmal atrial fibrillation: Plan: Not on anticoagulation due to GI bleeds in the past and now maintaining sinus rhythm with amiodarone. (6) Type 2 diabetes mellitus with diabetic neuropathy, unspecified: Plan: chronic stable Hold home glimepiride, on insulin ssi with variable diet Plan Disposition - admit to PCU Admission and Anticipated Discharge Date Admission Date: September 20, 2022 Subjective pt has bloody bowel movements overnight, did have worsened acute blood loss anemia, CT abd/pelvis shows persistent right sided colitis, pain has improved Physical Exam Physical Exam: Card exam is regular with a systolic murmur lungs are clear no wheezes or crackles Abdomen is NABS soft there is no focal tenderness, no rebound or guarding Results & Data Results & Data Vital Signs (Past 12 Hours) Vital Signs Temp Pulse Pulse Resp BP Pulse Ox O2 Del Method 09/29/22 03:43 100.2 F H 09/29/22 02:50 100.6 F H 71 20 160/70 H 96 Nasal Cannula 09/28/22 22:00 82 09/28/22 23:15 80 L Room Air 09/28/22 23:18 100.2 F H 78 20 167/81 H 95 Nasal Cannula 09/28/22 21:10 98.1 F 86 20 188/83 H 93 Room Air 09/28/22 20:35 86 18 92 Room Air O2 Flow Rate 09/29/22 03:43 09/29/22 02:50 2 09/28/22 22:00 09/28/22 23:15 09/28/22 23:18 2 09/28/22 21:10 09/28/22 20:35 PG Care Time/CCT Total # of Minutes Spent Total Time Spent with Patient: Total time spent is greater than 50% in coordination of care (as documented) at patient's floor/unit and/or counseling patient: Coding Level of Care Code 24473 SUB INP/OBS CARE MIN Diagnoses Ischemic colitis K55.9 Urinary retention R33.9 Acute respiratory failure with hypoxia J96.01 (HFpEF) heart failure with preserved ejection fraction I50.30 Paroxysmal atrial fibrillation I48.0 Type 2 diabetes mellitus with diabetic neuropathy, unspecified E11.40
[2022-09-29 07:55] LABS: Hematocrit (blood only) 19.9 % (37.0-47.0); Hemoglobin 6.5 g/dl (12.0-16.0); Mean Corpuscular Hemoglobin 28.5 pg (25.0-34.0); Mean Corpuscular Hgb Conc 32.7 g/dL (32.0-36.0); Mean Corpuscular Volume 87.3 fL (80.0-100.0); Mean Platelet Volume 11.1 fL (9.4-12.4); Platelet Count 396 K/uL (130-400); RDW Coefficient of Variation 15.5 % (11.5-14.5); RDW Standard Deviation 47.7 fL (36.4-46.3); Red Blood Count 2.28 M/uL (4.20-5.40)
[2022-09-29] MEDS ORDERED: SODIUM CHLORIDE 0.9% 250 ML IV PRN ×4 (08:16→12:16)
[2022-09-29] MEDS: INSULIN ASPART PER UNIT CHARGE SC SCH ×4 (08:54→20:28)
[2022-09-29] MEDS ORDERED: FUROSEMIDE INJ 20 MG/2 ML VIAL IV ONE ×2 (09:37→13:49)
[2022-09-29] MEDS: PANTOprazole 40 MG TAB PO SCH ×2 (09:38→19:30)
[2022-09-29] MEDS: metroNIDAZOLE 500 MG TAB PO SCH (09:39)
[2022-09-29] MEDS: carvediloL 6.25 MG TAB PO SCH ×2 (09:40→19:31)
[2022-09-29] MEDS: ATORVASTATIN 40 MG TAB PO SCH (09:41)
[2022-09-29] MEDS: AMIODARONE 200 MG TAB PO SCH (09:41)
[2022-09-29 10:38] LABS: Appearance Urine Clear (Clear); Bacteria Urine Automated Negative (Negative); Bilirubin Urine Negative (Negative); Blood Urine Negative (Negative); Color Urine Yellow; Glucose Urine UA Negative (Negative); Ketones Urine Negative (Negative); Leukocyte Esterase Urine Negative (Negative); Nitrite Urine Negative (Negative); Protein Urine 1+ (Negative); RBC Urine Automated 0-4 /hpf (0-4); Specific Gravity Urine 1.015 (1.000-1.030); Urobilinogen Urine Negative (Negative); pH Urine 5.5 (4.5-7.5)
[2022-09-29] MEDS ORDERED: PIPERACILLIN/TAZOBACTAM 4.5 GM (over 30 mins) IV ONE ×2 (12:30→14:00)
[2022-09-29 15:18] LABS: BUN Creatinine Ratio 22.3 (10-20); Calcium 8.2 mg/dl (8.6-10.3); Creatinine Clr Calc Pharmacy 25.8 ml/min; Est GFR (African American) 33.4 ml/min; Est GFR (Non-African American) 28.8 ml/min
[2022-09-29] MEDS: PIPERACILLIN/TAZOBACTAM 4.5 GM in DEXTROSE 5% 100 ML IV SCH (19:29)
[2022-09-29 20:37] LABS: Hematocrit (blood only) 26.3 % (37.0-47.0); Hemoglobin 8.7 g/dl (12.0-16.0)
[2022-09-30] MEDS: PIPERACILLIN/TAZOBACTAM 4.5 GM in DEXTROSE 5% 100 ML IV SCH ×3 (02:04→18:34)
[2022-09-30] MEDS: INSULIN ASPART PER UNIT CHARGE SC SCH ×4 (06:24→20:42)
[2022-09-30 06:41] LABS: Hematocrit (blood only) 27.9 % (37.0-47.0); Mean Corpuscular Hemoglobin 27.8 pg (25.0-34.0); Mean Corpuscular Hgb Conc 32.3 g/dL (32.0-36.0); Mean Corpuscular Volume 86.1 fL (80.0-100.0); Mean Platelet Volume 11.3 fL (9.4-12.4); Platelet Count 415 K/uL (130-400); RDW Coefficient of Variation 17.7 % (11.5-14.5); RDW Standard Deviation 53.3 fL (36.4-46.3); Red Blood Count 3.24 M/uL (4.20-5.40); White Blood Count 10.66 K/ul (4.8-10.8)
[2022-09-30 07:01] LABS: BUN Creatinine Ratio 21.8 (10-20); Calcium 8.4 mg/dl (8.6-10.3); Creatinine Clr Calc Pharmacy 27.4 ml/min; Est GFR (Non-African American) 31.1 ml/min; Potassium 4.3 mmol/L (3.5-5.1)
[2022-09-30] MEDS: carvediloL 6.25 MG TAB PO SCH ×2 (07:49→20:42)
[2022-09-30] MEDS: ATORVASTATIN 40 MG TAB PO SCH (07:49)
[2022-09-30] MEDS: PANTOprazole 40 MG TAB PO SCH ×2 (07:49→20:42)
[2022-09-30] MEDS: AMIODARONE 200 MG TAB PO SCH (07:50)
--- NOTE | 2022-09-30 09:19 | Gastrointestinal Consultation ---
Attending note: Agree with note and findings of MARTINEZ Akhtar woman with evidence of ischemic colitis on admit CT who had some bleeding yesterday with fall in H/H. She has had no further bleeding today. Repeat CT shows right sided colitis. She had colonoscopy last year Physcial Exam-abdomen soft and nontender Since she had colonoscopy last year I do not feel repeat exam will be helpful. I do agree with vascular surgery consultation. Would hold anticoagulants for now. Date of Consultation September 30, 2022 Assessment & Plan (1) Ischemic colitis: GI bleeding: Patient has been on heparin (09/20/2022 CT abdomen pelvis demonstrated proximal SMA occlusion with mid to distal SMA reconstituted through pancreaticoduodenal arcade), aspirin (chronic regimen), Plavix (chronic regimen). All anticoagulants are currently on hold. Patient is NPO due to rectal bleeding. s/p 2 units PRBC due to acute blood loss. Stable this morning at hemoglobin 9.0 hematocrit 27.9. Plan at this time is to continue supportive care measures and continue to monitor. Colitis on imaging: Likely due to ischemia. Continue to monitor. Case reviewed with Dr. Kirkland. Please refer to supervising physician addendum for further recommendations. I have spent 45 minutes of discrete time performing the activities of this visit which include but are not limited to review of the medical record, obtaining a history, physical exam, and entering information in the electronic record. (2) GI bleeding: History of Present Illness Attending Physician: Gurwinder Casiano MD History of Present Illness The patient is a mirella 82-year-old female who who was admitted 09/20/2022 with ischemic colitis. Vascular service recommended anticoagulation due to findings of SMA occlusion though felt was not acute. Patient medication regimen included aspirin 81 mg, Plavix 75 mg, pantoprazole 40 mg twice daily. She was started on heparin due to vascular service recommendations but this was held beginning 09/26/2022 due to rectal bleeding. The GI service was consulted due to finding of CT abdomen pelvis 09/28/2022 with colitis, most severe in the cecum and right- sided colon. Patient with acute blood loss anemia status post 2 units packed red blood cells. The patient is sleeping upon entering patient room this morning she wakes easily with verbal stimuli. She reports has a dry mouth but denies any specific GI complaints. She denies abdominal pain, nausea, vomiting. Nursing reports that she had multiple bloody bowel movements through the day yesterday with clots. She only had 1 small bowel movement last night with bright red blood noted. Aspirin and Plavix and heparin are currently on hold. She did receive 2 packed red blood cells yesterday with counts as low as hemoglobin 6.5 and hematocrit 19.9. Stable this morning at hemoglobin 9.0 hematocrit 27.9. She is currently NPO. Patient most recent colonoscopy 11/05/2021 due to heme positive stool and iron deficiency secondary to blood loss demonstrated 4 mm polyp found 30 cm proximal to the anus which was sessile and removed with otherwise normal exam. Pathology demonstrated tubular adenoma. Allergies Allergy/AdvReac Type Severity Reaction Status Date / Time fenofibrate AdvReac Intermediate INCREASED Verified 09/20/22 09:43 URINATION metoprolol AdvReac Intermediate VOMIT,DIARR Verified 09/20/22 09:43 HEA valsartan AdvReac Intermediate Weakness Verified 09/20/22 09:43 verapamil AdvReac Intermediate INCREASED Verified 09/20/22 09:43 URINATION Home Medications Medication Instructions Recorded Confirmed Type aspirin 81 mg tablet,delayed 81 mg PO HS 03/04/20 09/20/22 History release metformin 500 mg tablet,extended 1,000 mg PO BIDM 03/04/20 09/20/22 History release 24 hr coenzyme Q10 100 mg capsule 100 mg PO QAM 12/01/20 09/20/22 History (CoQ-10) fish, borage, flaxseed oils-omega 1 cap PO QDD 12/01/20 09/20/22 History 3,6,9 comb no.1 1,200 mg capsule ([place] 3-6-9) atorvastatin 40 mg tablet 40 mg PO QAM 02/26/21 09/20/22 History multivitamin 1 tab PO QAM 02/26/21 09/20/22 History ferrous sulfate 325 mg (65 mg 325 mg PO BID #60 tabs 05/02/21 09/20/22 Rx iron) tablet amiodarone 200 mg tablet 200 mg PO QAM 07/01/21 09/20/22 History hydralazine 100 mg tablet 100 mg PO TID 07/01/21 09/20/22 History pantoprazole 40 mg tablet,delayed 40 mg PO BID 07/01/21 09/20/22 History release glimepiride 4 mg tablet 4 mg PO BID 12/21/21 09/20/22 History carvedilol 6.25 mg tablet 6.25 mg PO BID #60 tabs 12/27/21 09/20/22 Rx furosemide 40 mg tablet 40 mg PO QAM #30 tabs 12/27/21 09/20/22 Rx magnesium oxide 400 mg (241.3 mg 400 mg PO BID #60 tabs 12/27/21 09/20/22 Rx magnesium) tablet clopidogrel 75 mg tablet 75 mg PO QAM #30 tabs 03/06/22 09/20/22 Rx amlodipine 10 mg tablet 10 mg PO BID 06/20/22 09/20/22 History sacubitril 24 mg-valsartan 26 mg 1 tab PO BID 09/20/22 09/20/22 History tablet (Entresto) spironolactone 25 mg tablet 25 mg PO QAM 09/20/22 09/20/22 History Patient History Medical History Acute non-ST elevation myocardial infarction (NSTEMI) Acute on chronic heart failure with preserved ejection fraction (HFpEF) LEV (acute kidney injury) Anemia Bradycardia CAD (coronary artery disease) CVA (cerebral vascular accident) (~2018) no deficits Elevated troponin Hyperkalemia Hyperlipemia Hyponatremia Hypoxia Myocardial infarct, old follows with Dr. Mcpherson Occlusion of right iliac artery PAD (peripheral artery disease) Pneumonia hx S/P angiogram of extremity (02/02/21) Type 2 diabetes mellitus with diabetic neuropathy, unspecified NIDDM Surgical History H/O removal of cyst right abdominal area History of bunionectomy of right great toe History of cardiac cath (~2019) History of heart artery stent (~2019) x1. at [facility]. Status post ORIF of fracture of ankle Family History Other No family history of adverse response to anesthesia Social History Smoking Status: Former smoker Tobacco Type: Cigarettes Second Hand Exposure: No; Do You Dip or Chew Tobacco: No; Hx Alcohol Use: No Hx Substance Use: No Preferred Language: Upper Sorbian Communication Ability: Effective Communication Ability Comment: difficulty comprehending at times - xiao, Mamie is typically her caregiver Contact Officer Required: No Beliefs That Will Affect Care: None marital status: / Current Living Situation: Family Current Living Situation Comment: currently moving in with daughter current occupational status: retired How many Children do You have: 1 Other Information That Helps Us Care for You: No Feels Safe at Home: Yes Safety Concerns: Feels Safe At This Time Assistive Devices: None Review of Systems Review of Systems: All systems reviewed & are unremarkable except as noted in Subjective Physical Exam Constitutional: + ill appearing Respiratory: normal respiratory effort; no respiratory distress and no labored breathing Gastrointestinal (Abdomen): Inspection/Auscultation: abdomen normal to inspection and normal bowel sounds Percussion/Palpation: abdomen soft; abdomen nontender Results & Data Vital Signs (Past 12 Hours) Vital Signs Temp Pulse Pulse Resp BP BP Pulse Ox 09/30/22 07:53 09/30/22 07:21 36.7 C 56 L 18 159/71 H 96 09/30/22 07:19 64 09/30/22 02:07 93 09/30/22 02:06 37 C 60 18 160/68 H 82 L 09/29/22 22:01 57 L 09/29/22 22:52 36.6 C 63 18 146/60 H 94 O2 Del Method O2 Flow Rate 09/30/22 07:53 Nasal Cannula 2 09/30/22 07:21 Nasal Cannula 3 09/30/22 07:19 09/30/22 02:07 Nasal Cannula 2 09/30/22 02:06 Room Air 09/29/22 22:01 09/29/22 22:52 Room Air Laboratory Results Laboratory Results - last 48 hr 09/28/22 09/28/22 09/28/22 07:28 11:13 16:18 WBC RBC Hgb Hct MCV MCH MCHC RDW Std Deviation RDW Coeff of Alysa Plt Count MPV Sodium Potassium Chloride Carbon Dioxide Anion Gap BUN Creatinine Est Cr Clr Drug Dosing Est GFR ( Amer) Est GFR (Non-Af Amer) BUN/Creatinine Ratio Glucose POC Glucose 150 H 133 H Lactate Calcium Urine Color Urine Appearance Urine pH Ur Specific Tyler Urine Protein Urine Glucose (UA) Urine Ketones Urine Blood Urine Nitrite Urine Bilirubin Urine Urobilinogen Ur Leukocyte Esterase Urine WBC (Auto) Urine RBC (Auto) U Hyaline Cast (Auto) U Epithel Cells (Auto) Urine Bacteria (Auto) Blood Type B Positive Antibody Screen NEGATIVE Crossmatch See Detail 09/28/22 09/28/22 09/29/22 20:40 20:55 06:20 WBC 18.70 H RBC 2.28 L Hgb 7.6 L 6.5 L* Hct 23.5 L 19.9 L* MCV 87.3 MCH 28.5 MCHC 32.7 RDW Std Deviation 47.7 H RDW Coeff of Alysa 15.5 H Plt Count 396 MPV 11.1 Sodium Potassium Chloride Carbon Dioxide Anion Gap BUN Creatinine Est Cr Clr Drug Dosing Est GFR ( Amer) Est GFR (Non-Af Amer) BUN/Creatinine Ratio Glucose POC Glucose 131 H Lactate Calcium Urine Color Urine Appearance Urine pH Ur Specific Tyler Urine Protein Urine Glucose (UA) Urine Ketones Urine Blood Urine Nitrite Urine Bilirubin Urine Urobilinogen Ur Leukocyte Esterase Urine WBC (Auto) Urine RBC (Auto) U Hyaline Cast (Auto) U Epithel Cells (Auto) Urine Bacteria (Auto) Blood Type Antibody Screen Crossmatch 09/29/22 09/29/22 09/29/22 09:03 09:50 11:28 WBC RBC Hgb Hct MCV MCH MCHC RDW Std Deviation RDW Coeff of Alysa Plt Count MPV Sodium Potassium Chloride Carbon Dioxide Anion Gap BUN Creatinine Est Cr Clr Drug Dosing Est GFR ( Amer) Est GFR (Non-Af Amer) BUN/Creatinine Ratio Glucose POC Glucose 145 H 167 H Lactate Calcium Urine Color Yellow Urine Appearance Clear Urine pH 5.5 Ur Specific Tyler 1.015 Urine Protein 1+ H Urine Glucose (UA) Negative Urine Ketones Negative Urine Blood Negative Urine Nitrite Negative Urine Bilirubin Negative Urine Urobilinogen Negative Ur Leukocyte Esterase Negative Urine WBC (Auto) 1-5 Urine RBC (Auto) 0-4 U Hyaline Cast (Auto) 1-5 U Epithel Cells (Auto) 10-20 H Urine Bacteria (Auto) Negative Blood Type Antibody Screen Crossmatch 09/29/22 09/29/22 09/29/22 14:47 14:47 16:04 WBC RBC Hgb Hct MCV MCH MCHC RDW Std Deviation RDW Coeff of Alysa Plt Count MPV Sodium 135 L Potassium 5.0 Chloride 105 Carbon Dioxide 24 Anion Gap 6 BUN 37 H Creatinine 1.66 H Est Cr Clr Drug Dosing 25.8 Est GFR ( Amer) 33.4 Est GFR (Non-Af Amer) 28.8 BUN/Creatinine Ratio 22.3 H Glucose 179 H POC Glucose 156 H Lactate 1.2 Calcium 8.2 L Urine Color Urine Appearance Urine pH Ur Specific Tyler Urine Protein Urine Glucose (UA) Urine Ketones Urine Blood Urine Nitrite Urine Bilirubin Urine Urobilinogen Ur Leukocyte Esterase Urine WBC (Auto) Urine RBC (Auto) U Hyaline Cast (Auto) U Epithel Cells (Auto) Urine Bacteria (Auto) Blood Type Antibody Screen Crossmatch 09/29/22 09/29/22 09/30/22 20:05 20:19 05:48 WBC 10.66 RBC 3.24 L Hgb 8.7 L 9.0 L Hct 26.3 L 27.9 L MCV 86.1 MCH 27.8 MCHC 32.3 RDW Std Deviation 53.3 H RDW Coeff of Alysa 17.7 H Plt Count 415 H MPV 11.3 Sodium Potassium Chloride Carbon Dioxide Anion Gap BUN Creatinine Est Cr Clr Drug Dosing Est GFR ( Amer) Est GFR (Non-Af Amer) BUN/Creatinine Ratio Glucose POC Glucose 156 H Lactate Calcium Urine Color Urine Appearance Urine pH Ur Specific Tyler Urine Protein Urine Glucose (UA) Urine Ketones Urine Blood Urine Nitrite Urine Bilirubin Urine Urobilinogen Ur Leukocyte Esterase Urine WBC (Auto) Urine RBC (Auto) U Hyaline Cast (Auto) U Epithel Cells (Auto) Urine Bacteria (Auto) Blood Type Antibody Screen Crossmatch 09/30/22 09/30/22 05:48 06:22 WBC RBC Hgb Hct MCV MCH MCHC RDW Std Deviation RDW Coeff of Alysa Plt Count MPV Sodium 137 Potassium 4.3 Chloride 105 Carbon Dioxide 24 Anion Gap 8 BUN 34 H Creatinine 1.56 H Est Cr Clr Drug Dosing 27.4 Est GFR ( Amer) 36.0 Est GFR (Non-Af Amer) 31.1 BUN/Creatinine Ratio 21.8 H Glucose 121 H POC Glucose 131 H Lactate Calcium 8.4 L Urine Color Urine Appearance Urine pH Ur Specific Tyler Urine Protein Urine Glucose (UA) Urine Ketones Urine Blood Urine Nitrite Urine Bilirubin Urine Urobilinogen Ur Leukocyte Esterase Urine WBC (Auto) Urine RBC (Auto) U Hyaline Cast (Auto) U Epithel Cells (Auto) Urine Bacteria (Auto) Blood Type Antibody Screen Crossmatch Diagnostic Findings KUB X-Ray 09/28/22 20:36 KUB CLINICAL HISTORY: Hematochezia. FINDINGS: 2 AP supine abdominal radiographs are correlated with abdominal CT dated 09/23/2022. There is a nonobstructed abdominal bowel gas pattern. No evidence of intraperitoneal free air is seen on these supine images. There are no abnormal abdominal calcifications. Phleboliths are noted in the pelvis. The skeletal structures are osteopenic and appear intact. There is mild to moderate lumbosacral spondylosis. A pleural effusion is seen at the right lung base. IMPRESSION: 1. Nonobstructed abdominal bowel gas pattern. 2. Right pleural effusion. Electronically signed by: Arun Amador M.D. 09/28/2022 10:18 PM Abdomen/Pelvis CT 09/28/22 21:38 Exam(s): CT ABDOMEN + PELVIS Without Contrast EXAM: CT Abdomen and Pelvis Without Intravenous Contrast CLINICAL HISTORY: Reason for exam: New bloody bowel movements, ischemic colitis. TECHNIQUE: Axial computed tomography images of the abdomen and pelvis without intravenous contrast. Automated exposure control was utilized for the study. A dose lowering technique was utilized adhering to the principles of ALARA. COMPARISON: 09/23/2022. FINDINGS: Lung bases: Bilateral lower lobe opacity suggestive of atelectasis versus infiltrate. Pleural space: Mild to moderate right-sided pleural effusion. Heart: Unremarkable. No significant pericardial effusion. Normal cardiac size with coronary artery calcifications. ABDOMEN: Liver: Unremarkable. Gallbladder and bile ducts: Possible tiny gallstones. No ductal dilation. Pancreas: Unremarkable. No ductal dilation. Spleen: Unremarkable. No splenomegaly. Adrenals: Unremarkable. No mass. Kidneys and ureters: Mild bilateral perinephric stranding otherwise normal bilateral kidneys. No obstructing stones. No hydronephrosis. Stomach and bowel: Thickening of the wall of the colon, most severe at the level of the cecum and ascending portion concerning for colitis. Due to and more significant distention in the proximal right colon, an inflammatory neoplasm cannot be excluded. Nonvisualized appendix. PELVIS: Appendix: No findings to suggest acute appendicitis. Bladder: Unremarkable. No stones. Reproductive: The uterus is atrophic. ABDOMEN and PELVIS: Intraperitoneal space: Unremarkable. No free air. No significant fluid collection. Bones/joints: Advanced multilevel degenerative disease of the spine. There is bifemoral bypass. No acute fracture. No dislocation. Soft tissues: Fluid infiltration of subcutaneous fat suggestive of anasarca versus cellulitis. Vasculature: See above. Lymph nodes: Unremarkable. No enlarged lymph nodes. IMPRESSION: 1. Findings most compatible with colitis, most severe the cecum and right-sided colon. Cannot exclude inflammatory neoplasm. Recommend follow-up with colonoscopy following treatment and resolution of symptoms. 2. Possible tiny gallstones which may be further assessed with right upper quadrant ultrasound if clinically indicated. 3. Right-sided pleural effusion with bilateral lower lobe atelectasis versus pneumonia, clinical correlation recommended. Electronically signed by: Danette Jones MD 09/28/22 23:27 PM
--- NOTE | 2022-09-30 09:44 | Surgery Consultation ---
Date of Consultation September 30, 2022 Assessment & Plan (1) Ischemic colitis: This is an 82yF with a PMH of CAD, PAD, DM2, afib, LEV, heart failure, h/o TAVR, HTN, who presents to the [facility] ED on 09/20/22 with complaints of feeling short of breath and having fevers. Along with these symptoms she had some complaints of lower abdominal pain where a CT a/p confirmed findings of SMA stenosis and possible R sided colonic colitis. Patient was managed conservatively with supportive care- IVF hydration and IV abx and was started on IV heparin while awaiting vascular surgery input. She was evaluated by gen surgery on her admission and as she improved and diet was slowly advanced had signed off. Unfortunately over the weekend patient had some bloody BM's and a hbg drop to 6 requiring transfusion. A repeat CT a/p was performed that revealed ongoing evidence of R sided colitis, most severe in the cecum and cannot exclude inflammatory neoplasm. We have been consulted for consideration of risk/benefits of performing a right hemicolectomy in patient given evidence of recent bleeding and recurring admissions for colitis. On exam patient's abdomen is soft, non tender, non distended. Vitals are stable, afebrile and HRs in the 50-60's. Labs show WBC 10 (18), and hbg of 9(6) after blood transfusion yesterday x2, lactate 1.6. Patient says she has been pain free in the abdomen over the last week or so, no n/v, and was previously tolerating a diet without issues. Outside of recent bloody BM's she had been doing fairly well. Agree with vascular consultation to be performed today for their recommendations for possible revascularization prior to entertaining any surgical intervention on our end. Agree with ongoing conservative measures of supportive care, IVF hydration and IV abx. No acute indications for surgery at this time from our standpoint. We will follow along closely. GI has also been consulted for their opinion. Plan Patient requires vascular intervention at a tertiary center to address her extensive vascular disease contributing to bowel ischemia and bloody bowel movements. A surgical resection is contraindicated in this case. Supervising Physician Co-Signing Physician Notes This patient was seen with the surgical PA. History of Present Illness Attending Physician: Gurwinder Casiano MD History of Present Illness This is an 82yF with a PMH of CAD, PAD, DM2, afib, LEV, heart failure, h/o TAVR, HTN, who presents to the [facility] ED on 09/20/22 with complaints of feeling short of breath and having fevers. Along with these symptoms she had some complaints of lower abdominal pain. A CT a/p was obtained revealing findings concerning for SMA stenosis and possible R sided colonic colitis. Patient was managed conservatively with supportive care- IVF hydration and IV abx and was started on IV heparin while awaiting vascular surgery input. She was evaluated by gen surgery on her admission and as she improved and diet was slowly advanced had signed off. Unfortunately over the wknd patient had some bloody BM's and a hbg drop to 6 requiring transfusion. A repeat CT a/p was performed that revealed ongoing evidence of R sided colitis, most severe in the cecum and cannot exclude inflammatory neoplasm. Patient says she has been pain free in the abdomen over the last week or so. She denies any nausea/vomiting. She was previously tolerating a diet without issue until being made NPO of recent. She reports seeing some bright red blood in her stool yesterday with each BM, but cannot quantify to me how much. She did not have any bloody BM's since then. She has had no BM's today thus far. No fevers/chills. Past surgical history includes a right cyst removal and fem-fem bypass with dr. hinton in 2020. Last colonoscopy was in 2021 where she had a polyp removed. Allergies Allergy/AdvReac Type Severity Reaction Status Date / Time fenofibrate AdvReac Intermediate INCREASED Verified 09/20/22 09:43 URINATION metoprolol AdvReac Intermediate VOMIT,DIARR Verified 09/20/22 09:43 HEA valsartan AdvReac Intermediate Weakness Verified 09/20/22 09:43 verapamil AdvReac Intermediate INCREASED Verified 09/20/22 09:43 URINATION Home Medications Medication Instructions Recorded Confirmed Type aspirin 81 mg tablet,delayed 81 mg PO HS 03/04/20 09/20/22 History release metformin 500 mg tablet,extended 1,000 mg PO BIDM 03/04/20 09/20/22 History release 24 hr coenzyme Q10 100 mg capsule 100 mg PO QAM 12/01/20 09/20/22 History (CoQ-10) fish, borage, flaxseed oils-omega 1 cap PO QDD 12/01/20 09/20/22 History 3,6,9 comb no.1 1,200 mg capsule ([place] 3-6-9) atorvastatin 40 mg tablet 40 mg PO QAM 02/26/21 09/20/22 History multivitamin 1 tab PO QAM 02/26/21 09/20/22 History ferrous sulfate 325 mg (65 mg 325 mg PO BID #60 tabs 05/02/21 09/20/22 Rx iron) tablet amiodarone 200 mg tablet 200 mg PO QAM 07/01/21 09/20/22 History hydralazine 100 mg tablet 100 mg PO TID 07/01/21 09/20/22 History pantoprazole 40 mg tablet,delayed 40 mg PO BID 07/01/21 09/20/22 History release glimepiride 4 mg tablet 4 mg PO BID 12/21/21 09/20/22 History carvedilol 6.25 mg tablet 6.25 mg PO BID #60 tabs 12/27/21 09/20/22 Rx furosemide 40 mg tablet 40 mg PO QAM #30 tabs 12/27/21 09/20/22 Rx magnesium oxide 400 mg (241.3 mg 400 mg PO BID #60 tabs 12/27/21 09/20/22 Rx magnesium) tablet clopidogrel 75 mg tablet 75 mg PO QAM #30 tabs 03/06/22 09/20/22 Rx amlodipine 10 mg tablet 10 mg PO BID 06/20/22 09/20/22 History sacubitril 24 mg-valsartan 26 mg 1 tab PO BID 09/20/22 09/20/22 History tablet (Entresto) spironolactone 25 mg tablet 25 mg PO QAM 09/20/22 09/20/22 History Patient History Medical History Acute non-ST elevation myocardial infarction (NSTEMI) Acute on chronic heart failure with preserved ejection fraction (HFpEF) LEV (acute kidney injury) Anemia Bradycardia CAD (coronary artery disease) CVA (cerebral vascular accident) (~2019) no deficits Elevated troponin Hyperkalemia Hyperlipemia Hyponatremia Hypoxia Myocardial infarct, old follows with Dr. Mcpherson Occlusion of right iliac artery PAD (peripheral artery disease) Pneumonia hx S/P angiogram of extremity (02/02/21) Type 2 diabetes mellitus with diabetic neuropathy, unspecified NIDDM Surgical History H/O removal of cyst right abdominal area History of bunionectomy of right great toe History of cardiac cath (~2018) History of heart artery stent (~2018) x1. at [facility] [place]. Status post ORIF of fracture of ankle Family History Other No family history of adverse response to anesthesia Social History Smoking Status: Former smoker Tobacco Type: Cigarettes Second Hand Exposure: No; Do You Dip or Chew Tobacco: No; Hx Alcohol Use: No Hx Substance Use: No Preferred Language: [place]an Communication Ability: Effective Communication Ability Comment: difficulty comprehending at times - dtr, Mamie is typically her caregiver Shearing Machine Tender Required: No Beliefs That Will Affect Care: None marital status: / Current Living Situation: Family Current Living Situation Comment: currently moving in with daughter current occupational status: retired How many Children do You have: 1 Other Information That Helps Us Care for You: No Feels Safe at Home: Yes Safety Concerns: Feels Safe At This Time Assistive Devices: None Review of Systems Constitutional: no fever and no chills Respiratory: no dyspnea Gastrointestinal: + diarrhea/loose stools (some bloody loose stools yesterday ); no abdominal pain, no nausea and no vomiting Physical Exam Physical Exam: awake/alert Constitutional: no acute distress Respiratory: normal respiratory effort Cardiovascular: Rate/Rhythm: + bradycardic Gastrointestinal (Abdomen): Inspection/Auscultation: abdomen not distended Percussion/Palpation: abdomen soft; abdomen nontender and no guarding Results & Data Vital Signs (Past 12 Hours) Vital Signs Temp Pulse Pulse Resp BP BP Pulse Ox 09/30/22 07:53 09/30/22 07:21 36.7 C 56 L 18 159/71 H 96 09/30/22 07:19 64 09/30/22 02:07 93 09/30/22 02:06 37 C 60 18 160/68 H 82 L 09/29/22 22:01 57 L 09/29/22 22:52 36.6 C 63 18 146/60 H 94 O2 Del Method O2 Flow Rate 09/30/22 07:53 Nasal Cannula 2 09/30/22 07:21 Nasal Cannula 3 09/30/22 07:19 09/30/22 02:07 Nasal Cannula 2 09/30/22 02:06 Room Air 09/29/22 22:01 09/29/22 22:52 Room Air Diagnostic Findings ABDOMEN AND PELVIS CT WITH IV CONTRAST CT DOSE: 520.82 mGy.cm HISTORY: RLQ pain, prior colitis TECHNIQUE: Multiaxial CT images of the abdomen and pelvis were performed following the use of intravenous contrast. A dose lowering technique was utilized adhering to the principles of ALARA. COMPARISON STUDY: Abdomen and pelvis CT 06/20/2022. FINDINGS: Mild cardiac megaly and mild interlobular septal thickening within the lung bases suggestive of mild pulmonary edema. There are trace bilateral pleural effusions. Dependent changes seen within the lower lobes posteriorly. An aortic valve prosthesis is noted. Diffuse body wall edema is noted. Small amount of ascites is noted. There is mild periportal edema. The main portal vein is patent. The gallbladder is mildly distended. There is a punctate gallstone suggested. No gallbladder wall thickening. No hepatic or splenic masses. The adrenal glands are unremarkable. No hydronephrosis. There is a punctate stone within the left kidney. Extensive calcified plaque within the normal caliber abdominal aorta. There is chronic occlusion of the right common iliac artery, unchanged. Multifocal stenosis within the left common iliac artery is again noted. There is a patent femorofemoral bypass graft. The proximal SMA is occluded. The mid to distal SMA is reconstituted through the pancreaticoduodenal arcade. The inferior mesenteric artery appears patent. Bladder is decompressed by a Castañeda catheter. The uterus and adnexa are unremarkable. There is progressive circumferential thickening within the ascending colon and cecum with pericolonic fat stranding. There appears to be pneumatosis involving the ascending colon which is new from the prior study. Therefore, these findings are highly suspicious for ischemic colitis. There is moderate to large amount well- formed stool within the proximal colon and terminal ileum. There are few dilated gas-filled loops of small bowel within the midabdomen. This may represent an ileus or partial small bowel obstruction. The distal small bowel loops are decompressed. IMPRESSION: 1. Moderate circumferential thickening of the ascending colon and cecum has progressed. There appears to be pneumatosis involving the ascending colon. In conjunction with the occluded proximal superior mesenteric artery, this is highly suspicious for an ischemic colitis. Surgical consultation recommended. 2. Pulmonary edema and trace bilateral pleural effusions. 3. Mild diffuse body wall edema and a small amount of ascites. 4. Mildly dilated gas-filled loops of small bowel within the midabdomen. This may represent an ileus or partial small bowel obstruction. 5. Additional findings as described above. ACT 112: Negative or not required by law. Electronically signed by: Alistair Chavez M.D. 09/20/2022 12:17 PM Exam(s): CT ABDOMEN + PELVIS Without Contrast EXAM: CT Abdomen and Pelvis Without Intravenous Contrast CLINICAL HISTORY: Reason for exam: New bloody bowel movements, ischemic colitis. TECHNIQUE: Axial computed tomography images of the abdomen and pelvis without intravenous contrast. Automated exposure control was utilized for the study. A dose lowering technique was utilized adhering to the principles of ALARA. COMPARISON: 09/23/2022. FINDINGS: Lung bases: Bilateral lower lobe opacity suggestive of atelectasis versus infiltrate. Pleural space: Mild to moderate right-sided pleural effusion. Heart: Unremarkable. No significant pericardial effusion. Normal cardiac size with coronary artery calcifications. ABDOMEN: Liver: Unremarkable. Gallbladder and bile ducts: Possible tiny gallstones. No ductal dilation. Pancreas: Unremarkable. No ductal dilation. Spleen: Unremarkable. No splenomegaly. Adrenals: Unremarkable. No mass. Kidneys and ureters: Mild bilateral perinephric stranding otherwise normal bilateral kidneys. No obstructing stones. No hydronephrosis. Stomach and bowel: Thickening of the wall of the colon, most severe at the level of the cecum and ascending portion concerning for colitis. Due to and more significant distention in the proximal right colon, an inflammatory neoplasm cannot be excluded. Nonvisualized appendix. PELVIS: Appendix: No findings to suggest acute appendicitis. Bladder: Unremarkable. No stones. Reproductive: The uterus is atrophic. ABDOMEN and PELVIS: Intraperitoneal space: Unremarkable. No free air. No significant fluid collection. Bones/joints: Advanced multilevel degenerative disease of the spine. There is bifemoral bypass. No acute fracture. No dislocation. Soft tissues: Fluid infiltration of subcutaneous fat suggestive of anasarca versus cellulitis. Vasculature: See above. Lymph nodes: Unremarkable. No enlarged lymph nodes. IMPRESSION: 1. Findings most compatible with colitis, most severe the cecum and right-sided colon. Cannot exclude inflammatory neoplasm. Recommend follow-up with colonoscopy following treatment and resolution of symptoms. 2. Possible tiny gallstones which may be further assessed with right upper quadrant ultrasound if clinically indicated. 3. Right-sided pleural effusion with bilateral lower lobe atelectasis versus pneumonia, clinical correlation recommended. Electronically signed by: Danette Jones MD 09/28/22 23:27 PM PG Care Time/CCT Total # of Minutes Spent Total Time Spent with Patient: Total time spent is greater than 50% in coordination of care (as documented) at patient's floor/unit and/or counseling patient: [place] [address] INT INP/OBS CARE 1/40MIN Patient Type New History Expanded Problem Focused Exam Expanded Problem Focused Medical Decision Making Moderate Complexity Diagnoses Ischemic colitis K55.9
--- NOTE | 2022-09-30 11:22 | Consultation ---
Date of Consultation September 30, 2022 Assessment & Plan (1) Mesenteric artery thrombosis: Pt appears to have an occluded SMA, stenosis of her celiac artery, as well as severe stenosis of her aorta adjacent to the takeoff of the SMA. This would require an aortic endarterectomy and aortic to SMA bypass for revascularization. Due to her multiple significant medical problems, this would best be done at a tertiary center. Management of the ischemic colon per GI/general surgery. Dr Cash discussed with Dr Casiano. History of Present Illness Reason for Consultation: ischemic colitis Attending Physician: Gurwinder Casiano MD History of Present Illness 82 yo f with hx of HTN, aortoiliac occlusive disease s/p L to R fem fem BPG, a fib, heart failure, hx TAVR, DMII, CAD, PAD, hyperlipidemia, admitted with abd pain and found to have colitis and SMA occlusion, seen in consultation today for same. Pt known to Dr Cash's practice for R iliac art occlusion and hx L to R fem fem BPG in 2020. Pt has no concerns of leg claudication, rest pain, new ulcerations. She has been in [facility] for over a week at this point, and her images continue to demonstrate colitis, although her abd pain is resolved at this time. Pt denies PENA, N/V, chest pain, SOB, syncope, fever presently. Pt was on heparin drip, but this has been stopped d/t bloody bowel movements which occurred 2 days ago, none since. Prior to admission, pt denies any significant weight loss or changes in eating habits. CT scan demonstrates SMA occlusion, as well as significant stenosis of her aorta d/t calcified plaque. Allergies Allergy/AdvReac Type Severity Reaction Status Date / Time fenofibrate AdvReac Intermediate INCREASED Verified 09/20/22 09:43 URINATION metoprolol AdvReac Intermediate VOMIT,DIARR Verified 09/20/22 09:43 HEA valsartan AdvReac Intermediate Weakness Verified 09/20/22 09:43 verapamil AdvReac Intermediate INCREASED Verified 09/20/22 09:43 URINATION Home Medications Medication Instructions Recorded Confirmed Type aspirin 81 mg tablet,delayed 81 mg PO HS 03/04/20 09/20/22 History release metformin 500 mg tablet,extended 1,000 mg PO BIDM 03/04/20 09/20/22 History release 24 hr coenzyme Q10 100 mg capsule 100 mg PO QAM 12/01/20 09/20/22 History (CoQ-10) fish, borage, flaxseed oils-omega 1 cap PO QDD 12/01/20 09/20/22 History 3,6,9 comb no.1 1,200 mg capsule ([place] 3-6-9) atorvastatin 40 mg tablet 40 mg PO QAM 02/26/21 09/20/22 History multivitamin 1 tab PO QAM 02/26/21 09/20/22 History ferrous sulfate 325 mg (65 mg 325 mg PO BID #60 tabs 05/02/21 09/20/22 Rx iron) tablet amiodarone 200 mg tablet 200 mg PO QAM 07/01/21 09/20/22 History hydralazine 100 mg tablet 100 mg PO TID 07/01/21 09/20/22 History pantoprazole 40 mg tablet,delayed 40 mg PO BID 07/01/21 09/20/22 History release glimepiride 4 mg tablet 4 mg PO BID 12/21/21 09/20/22 History carvedilol 6.25 mg tablet 6.25 mg PO BID #60 tabs 12/27/21 09/20/22 Rx furosemide 40 mg tablet 40 mg PO QAM #30 tabs 12/27/21 09/20/22 Rx magnesium oxide 400 mg (241.3 mg 400 mg PO BID #60 tabs 12/27/21 09/20/22 Rx magnesium) tablet clopidogrel 75 mg tablet 75 mg PO QAM #30 tabs 03/06/22 09/20/22 Rx amlodipine 10 mg tablet 10 mg PO BID 06/20/22 09/20/22 History sacubitril 24 mg-valsartan 26 mg 1 tab PO BID 09/20/22 09/20/22 History tablet (Entresto) spironolactone 25 mg tablet 25 mg PO QAM 09/20/22 09/20/22 History Patient History Medical History Acute non-ST elevation myocardial infarction (NSTEMI) Acute on chronic heart failure with preserved ejection fraction (HFpEF) LEV (acute kidney injury) Anemia Bradycardia CAD (coronary artery disease) CVA (cerebral vascular accident) (~2018) no deficits Elevated troponin Hyperkalemia Hyperlipemia Hyponatremia Hypoxia Myocardial infarct, old follows with Dr. Mcpherson Occlusion of right iliac artery PAD (peripheral artery disease) Pneumonia hx S/P angiogram of extremity (02/02/21) Type 2 diabetes mellitus with diabetic neuropathy, unspecified NIDDM Surgical History H/O removal of cyst right abdominal area History of bunionectomy of right great toe History of cardiac cath (~2018) History of heart artery stent (~2018) x1. at [facility] [place]. Status post ORIF of fracture of ankle Family History Other No family history of adverse response to anesthesia Social History Smoking Status: Former smoker Tobacco Type: Cigarettes Second Hand Exposure: No; Do You Dip or Chew Tobacco: No; Hx Alcohol Use: No Hx Substance Use: No Preferred Language: Tamazight Communication Ability: Effective Communication Ability Comment: difficulty comprehending at times - dtr, Mamie is typically her caregiver Pre Planning Advisor Required: No Beliefs That Will Affect Care: None marital status: / Current Living Situation: Family Current Living Situation Comment: currently moving in with daughter current occupational status: retired How many Children do You have: 1 Other Information That Helps Us Care for You: No Feels Safe at Home: Yes Safety Concerns: Feels Safe At This Time Assistive Devices: None Review of Systems Review of Systems: All systems reviewed & are unremarkable except as noted in HPI & below Physical Exam Constitutional: WD/WN, vitals as above cooperative; not in distress ENMT: Ears: no hearing impairment Neck: trachea midline Respiratory: normal respiratory effort Auscultation: lungs clear to auscultation bilaterally and + diminished lung sounds Cardiovascular: Rate/Rhythm: + irregularly irregular Vessels: femoral pulses present, posterior tibial pulses present, dorsalis pedis pulses present and radial pulses present; + abnormal peripheral pulses Extremities: normal capillary refill; no edema Gastrointestinal (Abdomen): Inspection/Auscultation: abdomen normal to inspection and normal bowel sounds Percussion/Palpation: abdomen soft; abdomen nontender Musculoskeletal: no cyanosis or clubbing, extremities motor strength 5/5 Skin: no rashes, warm and dry + nails discolored R great toe with large calloused area with ecchymosis beneath Neurologic: moves all extremities and awake; no focal motor deficits and not confused Psychiatric: Orientation: alert and oriented x 3 Affect: + anxious affect Results & Data Vital Signs (Past 12 Hours) Vital Signs Temp Pulse Pulse Resp BP BP Pulse Ox 09/30/22 07:53 09/30/22 07:21 36.7 C 56 L 18 159/71 H 96 09/30/22 07:19 64 09/30/22 02:07 93 09/30/22 02:06 37 C 60 18 160/68 H 82 L O2 Del Method O2 Flow Rate 09/30/22 07:53 Nasal Cannula 2 09/30/22 07:21 Nasal Cannula 3 09/30/22 07:19 09/30/22 02:07 Nasal Cannula 2 09/30/22 02:06 Room Air
--- NOTE | 2022-09-30 18:17 | Ultrasound Report ---
US duplex mesenteric HISTORY: 82 years-old Female evaluate sma flow, [place] [facility] [place] acute epigastric abdominal pain with occluded superior mesenteric artery. COMPARISON: CT abdomen and pelvis 09/28/2022, 09/20/2022 TECHNIQUE: Multiple real-time sonographic images of the mesenteric arteries were obtained assessing g rayscale appearance, color and spectral flow FINDINGS: Limited exam secondary to obscuring bowel gas. Is extensive atherosclerosis of the abdominal aorta re demonstrated with peak systolic velocities measuring up to 83 cm/s. Peak systolic velocities in the c eliac artery measure up to 255 cm/s within the proximal superior mesenteric artery measures up to 248 cm/s. Distal SMA is obscured by bowel gas. The previously noted occlusion of the proximal SMA is als o not seen. Nonvisualization of the inferior mesenteric artery. IMPRESSION: 1. Limited exam secondary to obscuring bowel gas. 2. The previously noted occlusion of the proximal superior mesenteric artery is not visualized on thi s exam. 3. Elevated peak systolic velocities within the celiac artery indicate greater than 70% stenosis. ACT 112: Negative or not required by law. The above report was generated using voice recognition software. It may contain grammatical, syntax o r spelling errors. Electronically signed by: Abraham Solis M.D. 09/30/2022 6:14 PM
--- NOTE | 2022-09-30 18:28 | Hospitalist Progress Note ---
Date of Service September 30, 2022 Assessment & Plan (1) Ischemic colitis: Plan: acute on chronic high risk CT abd/pelvis 09/28/22 colitis, most severe the cecum and right-sided colon. Cannot exclude inflammatory neoplasm. Recommend follow-up with colonoscopy following treatment and resolution of symptoms. We will change antibiotics to Zosyn anticipate GI and general surgery reconsultation on 09/30/2022 Acute blood loss anemia did receive Venafer fair will have Avilla packed red blood cells on 09/29/[address] Cash vascular surgery who feels that the degree of calcification near SMA and aorta exceeds his ability to do any procedures here. He recommended I call [facility] which I spoke to Dr. Sims. Dr. Sims feels that the patient may need surgery in the future but without mesenteric anginal symptoms or ischemic symptoms at this time emergent surgery is not necessitated requested a mesenteric Doppler study which is currently pending and will likely coordinate outpatient treatment if need be. I also s poke with a [place] general surgeon to discuss the fact of possibly with the patient benefit from a hemicolectomy given the persistent ischemic appearance he however said once again that that would be a surgery of last resort if she does have bowel infarction. At the time of this notation the mesenteric Dopplers are pending I did speak to the daughter, Mamie, and she is updated on the course of this issue According phone calls speaking to her she multiple occasions Dr. Cash other physicians at this location also spent 90 minutes with this patient today (2) Urinary retention: Plan: acute self limited, Castañeda catheter placed in ER due to PVR 400ml. PT progressed to LEV. LEV once again recurred with her most recent bleed but now is resolved chronic kidney disease stage 4 is now present Despite catheter, low urine output, jyothiley Acute tubular necrosis, Neprology is following, holding neprhotoxic agents (3) Acute respiratory failure with hypoxia: Plan: Acute resolvedsuspect due to mild congestive pulmonary edema seen on CXR. 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 (6) Type 2 diabetes mellitus with diabetic neuropathy, unspecified: Plan: chronic stable Hold home glimepiride, on insulin ssi with variable diet Plan Disposition - admit to PCU Admission and Anticipated Discharge Date Admission Date: September 20, 2022 Subjective pt has bloody bowel movements overnight, did have worsened acute blood loss anemia, CT abd/pelvis shows persistent right sided colitis, pain has improved Physical Exam Physical Exam: Card exam is regular with a systolic murmur lungs are clear no wheezes or crackles Abdomen is NABS soft there is no focal tenderness, no rebound or guarding Results & Data Results & Data Vital Signs (Past 12 Hours) Vital Signs Temp Pulse Pulse Resp BP BP Pulse Ox 09/30/22 15:49 53 L 09/30/22 15:36 98.1 F 60 17 160/64 H 92 09/30/22 11:20 98.2 F 65 18 160/83 H 98 09/30/22 07:53 09/30/22 07:21 98.1 F 56 L 18 159/71 H 96 09/30/22 07:19 64 O2 Del Method O2 Flow Rate 09/30/22 15:49 09/30/22 15:36 Room Air 09/30/22 11:20 Nasal Cannula 2 09/30/22 07:53 Nasal Cannula 2 09/30/22 07:21 Nasal Cannula 3 09/30/22 07:19 PG Care Time/CCT Total # of Minutes Spent Total Time Spent with Patient: Total time spent is greater than 50% in coordination of care (as documented) at patient's floor/unit and/or counseling patient: Coding Level of Care Code 06081 SUB INP/OBS CARE 3/50MIN Diagnoses Ischemic colitis K55.9 Urinary retention R33.9 Acute respiratory failure with hypoxia J96.01 (HFpEF) heart failure with preserved ejection fraction I50.30 Paroxysmal atrial fibrillation I48.0 Type 2 diabetes mellitus with diabetic neuropathy, unspecified E11.40
[2022-10-01] MEDS: PIPERACILLIN/TAZOBACTAM 4.5 GM in DEXTROSE 5% 100 ML IV SCH ×3 (01:52→18:41)
[2022-10-01 06:29] LABS: Hematocrit (blood only) 25.4 % (37.0-47.0); Hemoglobin 8.3 g/dl (12.0-16.0); Mean Corpuscular Hemoglobin 27.8 pg (25.0-34.0); Mean Corpuscular Hgb Conc 32.7 g/dL (32.0-36.0); Mean Corpuscular Volume 84.9 fL (80.0-100.0); Mean Platelet Volume 11.4 fL (9.4-12.4); Platelet Count 425 K/uL (130-400); RDW Coefficient of Variation 17.7 % (11.5-14.5); RDW Standard Deviation 52.2 fL (36.4-46.3); Red Blood Count 2.99 M/uL (4.20-5.40); White Blood Count 10.08 K/ul (4.8-10.8)
[2022-10-01 06:49] LABS: Calcium 8.1 mg/dl (8.6-10.3); Creatinine Clr Calc Pharmacy 27.1 ml/min; Est GFR (African American) 35.4 ml/min; Est GFR (Non-African American) 30.6 ml/min
--- NOTE | 2022-10-01 08:10 | Gastroenterology Progress Note ---
Date of Service October 01, 2022 Assessment & Plan (1) Ischemic colitis: Plan: GI bleeding: Patient was on heparin (09/20/2022 CT abdomen pelvis demonstrated proximal SMA occlusion with mid to distal SMA reconstituted through pancreaticoduodenal arcade), aspirin (chronic regimen), Plavix (chronic regimen). All anticoagulants are currently on hold. Diet advanced and tolerating well this morning. s/p 2 units PRBC 09/29/2022 due to acute blood loss. Stable this morning at hemoglobin 8.3 hematocrit 25.4. Plan at this time is to continue supportive care measures and continue to monitor. No indication for colonoscopy at this time. Colitis on imaging: Likely due to ischemia. Continue to monitor. Case reviewed with Dr. Kirkland. Please refer to supervising physician addendum for further recommendations. I have spent 15 minutes of discrete time performing the activities of this visit which include but are not limited to review of the medical record, obtaining a history, physical exam, and entering information in the electronic record. (2) GI bleeding: Admission and Anticipated Discharge Date Admission Date: September 20, 2022 Supervising Physician Co-Signing Physician Notes I interviewed and examined the patient and reviewed the medical record with the following observations: Subjective: She had only one stool with blood in it. H/H are stable. Seen by vascular Objective: She looks comfortable Chart Review: Vascular consult noted I agree with the assessment and plan as laid out by MARTINEZ Akhtar As the supervising physician I have spent a total of 10 minutes of discrete time performing the activities of this consultation which include but are not limited to, review of the medical record, Obtaining a history, physical examination and entering info into the electronic record. Subjective Patient is awake alert and oriented this morning sitting on her bedside eating food from her breakfast tray. She reports that she is feeling well this morning she denies any nausea, vomiting, abdominal pain. Rectal bleeding markedly decreased per her report. Spoke to nursing staff who reports that [place] [facility] [place] Review of Systems Review of Systems: All systems reviewed & are unremarkable except as noted in Subjective Physical Exam Gastrointestinal (Abdomen): normal bowel sounds, soft, nontender, no hepatosplenomegaly Results & Data Vital Signs (Past 12 Hours) Vital Signs Temp Pulse Pulse Resp BP Pulse Ox O2 Del Method 10/01/22 07:24 36.9 C 61 22 166/68 H 94 Room Air 05/02/23 03:01 36.6 C 65 18 146/60 H 90 Nasal Cannula 09/30/22 23:15 60 09/30/22 20:09 36.9 C 60 18 162/62 H 90 Room Air O2 Flow Rate 10/01/22 07:24 10/01/22 03:01 3 09/30/22 23:15 09/30/22 20:09 Laboratory Results Laboratory Results - last 24 hr 09/30/22 09/30/22 09/30/22 11:22 16:23 20:15 WBC RBC Hgb Hct MCV MCH MCHC RDW Std Deviation RDW Coeff of Alysa Plt Count MPV Sodium Potassium Chloride Carbon Dioxide Anion Gap BUN Creatinine Est Cr Clr Drug Dosing Est GFR ( Amer) Est GFR (Non-Af Amer) BUN/Creatinine Ratio Glucose POC Glucose 133 H 157 H 205 H Calcium 10/01/22 10/01/22 10/01/22 05:42 05:42 07:30 WBC 10.08 RBC 2.99 L Hgb 8.3 L Hct 25.4 L MCV 84.9 MCH 27.8 MCHC 32.7 RDW Std Deviation 52.2 H RDW Coeff of Alysa 17.7 H Plt Count 425 H MPV 11.4 Sodium 137 Potassium 4.0 Chloride 106 Carbon Dioxide 24 Anion Gap 7 BUN 30 H Creatinine 1.58 H Est Cr Clr Drug Dosing 27.1 Est GFR ( Amer) 35.4 Est GFR (Non-Af Amer) 30.6 BUN/Creatinine Ratio 19.0 Glucose 130 H POC Glucose 136 H Calcium 8.1 L Diagnostic Findings Mesenteric US 09/30/22 11:05 US duplex mesenteric HISTORY: 82 years-old Female evaluate sma flow, [place] [facility] [place] acute epigastric abdominal pain with occluded superior mesenteric artery. COMPARISON: CT abdomen and pelvis 09/28/2022, 09/20/2022 TECHNIQUE: Multiple real-time sonographic images of the mesenteric arteries were obtained assessing grayscale appearance, color and spectral flow FINDINGS: Limited exam secondary to obscuring bowel gas. Is extensive atherosclerosis of the abdominal aorta redemonstrated with peak systolic velocities measuring up to 83 cm/s. Peak systolic velocities in the celiac artery measure up to 255 cm/s within the proximal superior mesenteric artery measures up to 248 cm/s. Distal SMA is obscured by bowel gas. The previously noted occlusion of the proximal SMA is also not seen. Nonvisualization of the inferior mesenteric artery. IMPRESSION: 1. Limited exam secondary to obscuring bowel gas. 2. The previously noted occlusion of the proximal superior mesenteric artery is not visualized on this exam. 3. Elevated peak systolic velocities within the celiac artery indicate greater than 70% stenosis. ACT 112: Negative or not required by law. The above report was generated using voice recognition software. It may contain grammatical, syntax or spelling errors. Electronically signed by: Abraham Solis M.D. 09/30/2022 6:14 PM
[2022-10-01] MEDS: AMIODARONE 200 MG TAB PO SCH (08:45)
[2022-10-01] MEDS: carvediloL 6.25 MG TAB PO SCH ×2 (08:46→21:00)
[2022-10-01] MEDS: PANTOprazole 40 MG TAB PO SCH ×2 (08:46→21:00)
[2022-10-01] MEDS: ATORVASTATIN 40 MG TAB PO SCH (08:46)
[2022-10-01] MEDS: INSULIN ASPART PER UNIT CHARGE SC SCH ×4 (08:53→21:02)
--- NOTE | 2022-10-01 13:10 | Pharmacy Report ---
Pharmacy Glycemic Short Note 2 - Date of Service October 01, 2022 - Glycemic Short BSG Results (Last 24 hours): 09/30/22 09/30/22 10/01/22 16:23 20:15 05:42 Glucose 130 H POC Glucose 157 H 205 H 10/01/22 10/01/22 07:30 11:37 Glucose POC Glucose 136 H 218 H OUTPATIENT ANTIDIABETIC REGIMEN: * Glimepiride 4 mg PO BID * Metformin 1000 mg PO BIDM * HbA1c: 6.2% (09/21/22) ASSESSMENT: 10/01 * BSGs acceptable over the last 24 hrs * Fasting BSG 130-136 this AM with no basal insulin on board, however patient had been NPO for most of the day yesterday * Diet was advanced and pt reportedly tolerating well at this point * Will resume low dose Lantus at this time. * Plan to continue current Novolog CF + CR as they have performed well thus far PLAN FOR INPATIENT GLYCEMIC CONTROL: * Hold outpatient oral diabetes medications (glimepiride, metformin) * Basal insulin * Lantus 4 units SQ qAM * Bolus insulin * NovoLog per scale ACHS or Q6hrs while NPO * Goal Range: Low 120 mg/dL - High 150 mg/dL * Correction Factor: 45 mg/dL/unit * Nutritional / Prandial insulin per carb ratio of 1 unit per 18 grams CHO consumed
[2022-10-01] MEDS: HEPARIN SODIUM/DEXTROSE 25,000 UNITS/500 ML BAG IV SCH (13:24)
--- NOTE | 2022-10-01 13:40 | XRay Report ---
XR chest 1V portable HISTORY: 82 years-old Female hypoxia acute hypoxia COMPARISON: 09/20/2022 TECHNIQUE: AP view of the chest FINDINGS: Cardiac silhouette is enlarged. Aortic valvular prosthesis. Prominent vascular congestion with inters titial coarsening. Atherosclerosis of the aorta. No pneumothorax. Small pleural effusions with mild b ibasilar consolidation. Degenerative changes of the shoulders and spine. Right shoulder rotator cuff calcific tendinosis. IMPRESSION: 1. Cardiomegaly with pulmonary edema. 2. New/increased size of the small pleural effusions with progressive bibasilar consolidation favorin g atelectasis. ACT 112: Negative or not required by law. The above report was generated using voice recognition software. It may contain grammatical, syntax o r spelling errors. Electronically signed by: Abraham Solis M.D. 10/01/2022 1:39 PM
--- NOTE | 2022-10-01 14:27 | Surgery Progress Note ---
Date of Service October 01, 2022 Assessment & Plan (1) Ischemic colitis: Plan: Patient is currently HD stable and without peritonitis or sign of gangrenous bowel. No acute surgical intervention at this time. 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 Retroduodenal and retropancreatic blood flow between the SMA and celiac noted on prior CT imaging. After revascularization, patient would benefit from colonoscopy. Admission and Anticipated Discharge Date Admission Date: September 20, 2022 Subjective The patient was seen this am. She denies abdominal pain and was able to tolerate breakfast and lunch. She says she had a bowel movement that had some blood in it but much less. She notes blood when she wipes. Physical Exam Constitutional: cooperative; no acute distress, not ill appearing and not diaphoretic Respiratory: normal respiratory effort; no respiratory distress, no labored breathing and does not use accessory muscles Gastrointestinal (Abdomen): Percussion/Palpation: abdomen soft; abdomen nontender, no guarding and abdomen not rigid Neurologic: moves all extremities and awake; no focal motor deficits and not confused Results & Data Vital Signs (Past 12 Hours) Vital Signs Temp Pulse Resp BP Pulse Ox O2 Del Method O2 Flow Rate 10/01/22 11:35 36.8 C 51 L 18 138/98 90 Nasal Cannula 2 10/01/22 08:00 Nasal Cannula 3 10/01/22 07:24 36.9 C 61 22 166/68 H 94 Room Air 10/01/22 03:01 36.6 C 65 18 146/60 H 90 Nasal Cannula 3 PG Care Time/CCT Total # of Minutes Spent Total Time Spent with Patient: Total time spent is greater than 50% in coordination of care (as documented) at patient's floor/unit and/or counseling patient: Coding [place] [address] SUB INP/OBS CARE 125MIN Patient Type Established History Problem Focused Exam Problem Focused Medical Decision Making Low Complexity Diagnoses Ischemic colitis K55.9
[2022-10-01] MEDS: LANTUS PER UNIT CHARGE SC SCH (14:51)
--- NOTE | 2022-10-01 18:14 | Hospitalist Progress Note ---
Date of Service October 01, 2022 Assessment & Plan (1) Ischemic colitis: Plan: acute on chronic high risk CT abd/pelvis 09/28/22 colitis, most severe the cecum and right-sided colon. Cannot exclude inflammatory neoplasm. Recommend follow-up with colonoscopy following treatment and resolution of symptoms. Did change antibiotics to Zosyn 09/29/2022 Acute blood loss anemia did receive Venafer fair will have 2 units packed red blood cells on 09/29/2022, hemoglobin 5 to his 8.[address] Cash vascular surgery who feels that the degree of calcification near SMA and aorta exceeds his ability to do any procedures here. He recommended I call [facility] which I spoke to Dr. Sims. Dr. Sims feels that the patient may need surgery in the future but without mesenteric anginal symptoms or ischemic symptoms at this time emergent surgery is not necessitated requested a mesenteric Doppler study which does not show severe superior mesenteric artery stenosis. Thus will likely coordinate outpatient treatment if need be. I also spoke with a [place] general surgeon to discuss the fact of possibly with the patient benefit from a hemicolectomy given the persistent ischemic appearance he however said once again that that would be a surgery of last resort if she does have bowel infarction. I did speak to the daughter, Mamie, at the bedside 10/01/2022 (2) Urinary retention: Plan: acute self limited, Castañeda catheter placed in ER due to PVR 400ml. PT progressed to LEV. LEV once again recurred with her most recent bleed but now is resolved chronic kidney disease stage 4 is now present (3) Acute respiratory failure with hypoxia: Plan: Acute resolvedsuspect due to mild congestive pulmonary edema seen on CXR. 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 (6) Type 2 diabetes mellitus with diabetic neuropathy, unspecified: Plan: chronic stable Hold home glimepiride, on insulin ssi with variable diet Plan Disposition - admit to PCU Admission and Anticipated Discharge Date Admission Date: September 20, 2022 Subjective Started on regular food was able to tolerate breakfast and lunch without abdominal pain. She says she had a bowel movement that had some blood in it but much less. She notes blood when she wipes. Hemoglobin is some mild reduction Physical Exam Physical Exam: Card exam is regular with a systolic murmur lungs are clear no wheezes or crackles Abdomen is NABS soft there is no focal tenderness, no rebound or guarding Results & Data Results & Data Vital Signs (Past 12 Hours) Vital Signs Temp Pulse Resp BP BP Pulse Ox O2 Del Method 10/01/22 15:29 97.9 F 58 L 18 161/67 H 89 L Nasal Cannula 10/01/22 11:35 98.2 F 51 L 18 138/98 90 Nasal Cannula 10/01/22 08:00 Nasal Cannula 10/01/22 07:24 98.4 F 61 22 166/68 H 94 Room Air O2 Flow Rate 10/01/22 15:29 1 10/01/22 11:35 2 10/01/22 08:00 3 10/01/22 07:24 PG Care Time/CCT Total # of Minutes Spent Total Time Spent with Patient: Total time spent is greater than 50% in coordination of care (as documented) at patient's floor/unit and/or counseling patient: Coding Level of Care Code 20527 SUB INP/OBS CARE 2/35MIN Diagnoses Ischemic colitis K55.9 Urinary retention R33.9 Acute respiratory failure with hypoxia J96.01 (HFpEF) heart failure with preserved ejection fraction I50.30 Paroxysmal atrial fibrillation I48.0 Type 2 diabetes mellitus with diabetic neuropathy, unspecified E11.40
[2022-10-01] MEDS ORDERED: FUROSEMIDE 40 MG/4 ML VIAL IV ONE (18:30)
[2022-10-02] MEDS: PIPERACILLIN/TAZOBACTAM 4.5 GM in DEXTROSE 5% 100 ML IV SCH ×3 (02:30→18:15)
[2022-10-02 06:32] LABS: Hematocrit (blood only) 28.6 % (37.0-47.0); Hemoglobin 9.1 g/dl (12.0-16.0); Mean Corpuscular Hemoglobin 27.7 pg (25.0-34.0); Mean Corpuscular Hgb Conc 31.8 g/dL (32.0-36.0); Mean Corpuscular Volume 86.9 fL (80.0-100.0); Mean Platelet Volume 11.1 fL (9.4-12.4); Platelet Count 433 K/uL (130-400); RDW Standard Deviation 50.4 fL (36.4-46.3); Red Blood Count 3.29 M/uL (4.20-5.40); White Blood Count 8.11 K/ul (4.8-10.8)
[2022-10-02 06:53] LABS: BUN Creatinine Ratio 20.4 (10-20); Calcium 8.4 mg/dl (8.6-10.3); Creatinine Clr Calc Pharmacy 26.4 ml/min; Est GFR (African American) 34.4 ml/min; Est GFR (Non-African American) 29.7 ml/min; Potassium 3.8 mmol/L (3.5-5.1)
[2022-10-02] MEDS: INSULIN ASPART PER UNIT CHARGE SC SCH ×4 (08:01→21:02)
--- NOTE | 2022-10-02 08:15 | Gastroenterology Progress Note ---
Discussed with Michelle Scott and reviewed her note as well At this time she is stable. No intervention planned. Will sign off. Please reconsult as needed Date of Service October 02, 2022 Assessment & Plan (1) Ischemic colitis: Plan: GI bleeding: All anticoagulants continue to on hold. Patient is tolerating regular diet well. s/p 2 units PRBC 09/29/2022 due to acute blood loss. Stable H&H this morning at hemoglobin 9.1 hematocrit 28.6. Plan at this time is to continue supportive care measures and continue to monitor. No indication for colonoscopy at this time. Vascular surgery notes are reviewed. Colitis on imaging: Likely due to ischemia. Continue to monitor. Case reviewed with Dr. Kirkland. Please refer to supervising physician addendum for further recommendations. I have spent 15 minutes of discrete time performing the activities of this visit which include but are not limited to review of the medical record, obtaining a history, physical exam, and entering information in the electronic record. (2) GI bleeding: Admission and Anticipated Discharge Date Admission Date: September 20, 2022 Subjective Patient awake alert oriented this morning lying in bed. She has completed her breakfast tray. She reports that she feels well. She denies any abdominal pain, nausea, vomiting. She reports 1 soft bowel movement yesterday with small amount of blood noted. No bowel movement so far this morning. Review of Systems Review of Systems: All systems reviewed & are unremarkable except as noted in Subjective Physical Exam Gastrointestinal (Abdomen): normal bowel sounds, soft, nontender, no hepatosplenomegaly Inspection/Auscultation: abdomen normal to inspection and normal bowel sounds Percussion/Palpation: abdomen soft; abdomen nontender Results & Data Vital Signs (Past 12 Hours) Vital Signs Temp Pulse Pulse Resp BP Pulse Ox O2 Del Method 10/02/22 07:49 36.5 C 60 18 164/78 H 97 Nasal Cannula 10/02/22 03:22 36.5 C 57 L 20 147/66 H 94 Nasal Cannula 10/02/22 00:00 56 L 10/01/22 23:10 36.9 C 52 L 18 169/74 H 95 Nasal Cannula O2 Flow Rate 10/02/22 07:49 2 10/02/22 03:22 2 10/02/22 00:00 10/01/22 23:10 2 Laboratory Results Laboratory Results - last 24 hr 10/01/22 10/01/22 10/01/22 11:37 16:34 20:08 WBC RBC Hgb Hct MCV MCH MCHC RDW Std Deviation RDW Coeff of Alysa Plt Count MPV Sodium Potassium Chloride Carbon Dioxide Anion Gap BUN Creatinine Est Cr Clr Drug Dosing Est GFR ( Amer) Est GFR (Non-Af Amer) BUN/Creatinine Ratio Glucose POC Glucose 218 H 198 H 181 H Calcium 10/02/22 10/02/22 10/02/22 05:51 05:51 07:22 WBC 8.11 RBC 3.29 L Hgb 9.1 L Hct 28.6 L MCV 86.9 MCH 27.7 MCHC 31.8 L RDW Std Deviation 50.4 H RDW Coeff of Alysa 17.0 H Plt Count 433 H MPV 11.1 Sodium 138 Potassium 3.8 Chloride 105 Carbon Dioxide 24 Anion Gap 9 BUN 33 H Creatinine 1.62 H Est Cr Clr Drug Dosing 26.4 Est GFR ( Amer) 34.4 Est GFR (Non-Af Amer) 29.7 BUN/Creatinine Ratio 20.4 H Glucose 117 H POC Glucose 134 H Calcium 8.4 L Diagnostic Findings Chest X-Ray 10/01/22 10:52 XR chest 1V portable HISTORY: 82 years-old Female hypoxia acute hypoxia COMPARISON: 09/20/2022 TECHNIQUE: AP view of the chest FINDINGS: Cardiac silhouette is enlarged. Aortic valvular prosthesis. Prominent vascular congestion with interstitial coarsening. Atherosclerosis of the aorta. No pneumothorax. Small pleural effusions with mild bibasilar consolidation. Degenerative changes of the shoulders and spine. Right shoulder rotator cuff calcific tendinosis. IMPRESSION: 1. Cardiomegaly with pulmonary edema. 2. New/increased size of the small pleural effusions with progressive bibasilar consolidation favoring atelectasis. ACT 112: Negative or not required by law. The above report was generated using voice recognition software. It may contain grammatical, syntax or spelling errors. Electronically signed by: Abraham Solis M.D. 10/01/2022 1:39 PM
[2022-10-02] MEDS: LANTUS PER UNIT CHARGE SC SCH (09:01)
[2022-10-02] MEDS: carvediloL 6.25 MG TAB PO SCH ×2 (09:06→21:02)
[2022-10-02] MEDS: ATORVASTATIN 40 MG TAB PO SCH (09:06)
[2022-10-02] MEDS: AMIODARONE 200 MG TAB PO SCH (09:07)
[2022-10-02] MEDS: PANTOprazole 40 MG TAB PO SCH ×2 (09:07→21:02)
[2022-10-02] MEDS: FUROSEMIDE 40 MG TAB PO SCH (09:32)
--- NOTE | 2022-10-02 13:11 | Surgery Progress Note ---
I saw this patient and discussed this case with the surgical PA. I agree with the plan. Date of Service October 02, 2022 Assessment & Plan (1) Ischemic colitis: Plan: Patient is currently HD stable and without peritonitis or sign of gangrenous bowel. No acute surgical intervention at this time. WBC 8 and Hbg stable at 9.1 (8) She has no abdominal pain. Abd is soft and non tender Tolerating a diet and having + BMs that are becoming less bloody in nature and more brown. She will need f/u with vascular as outpatient for consideration of revascularization and then would would benefit from colonoscopy thereafter Admission and Anticipated Discharge Date Admission Date: September 20, 2022 Subjective Patient reports feeling well. No abdominal pain. No n/v. Tolerating a regular diet. States her BMs are semi-solid and becoming more brown, less blood. Physical Exam Physical Exam: sleepy, but arousable and communicative Respiratory: normal respiratory effort Gastrointestinal (Abdomen): Inspection/Auscultation: abdomen not distended Percussion/Palpation: abdomen soft; abdomen nontender Results & Data Vital Signs (Past 12 Hours) Vital Signs Temp Pulse Resp BP Pulse Ox O2 Del Method O2 Flow Rate 10/02/22 08:00 Nasal Cannula 2 10/02/22 11:47 36.5 C 54 L 18 175/84 H 95 Room Air 10/02/22 07:49 36.5 C 60 18 164/78 H 97 Nasal Cannula 2 10/02/22 03:22 36.5 C 57 L 20 147/66 H 94 Nasal Cannula 2 PG Care Time/CCT Total # of Minutes Spent Total Time Spent with Patient: Total time spent is greater than 50% in coordination of care (as documented) at patient's floor/unit and/or counseling patient: Coding Level of Care Code 06463 SUB INP/OBS CARE 06/26MIN Diagnoses Ischemic colitis K55.9
--- NOTE | 2022-10-02 18:40 | Hospitalist Progress Note ---
Date of Service October 02, 2022 Assessment & Plan (1) Ischemic colitis: Plan: acute on chronic high risk CT abd/pelvis 09/28/22 colitis, most severe the cecum and right-sided colon. Cannot exclude inflammatory neoplasm. Recommend follow-up with colonoscopy following treatment and resolution of symptoms. Did change antibiotics to Zosyn 09/29/2022 Acute blood loss anemia did receive Venefer fair will have 2 units packed red blood cells on 09/29/2022, hemoglobin 5 to his 8.[address] Cash vascular surgery who feels that the degree of calcification near SMA and aorta exceeds his ability to do any procedures here. He recommended I call [facility] which I spoke to Dr. Sims. Dr. Sims feels that the patient may need surgery in the future but without mesenteric anginal symptoms or ischemic symptoms at this time emergent surgery is not necessitated requested a mesenteric Doppler study which does not show severe superior mesenteric artery stenosis. Thus will likely coordinate outpatient treatment if need be. I also spoke with a [place] general surgeon to discuss the fact of possibly with the patient benefit from a hemicolectomy given the persistent ischemic appearance he however said once again that that would be a surgery of last resort if she does have bowel infarction. I did speak to the daughter, Mamie, at the bedside 10/01/2022, I spoke to son 10/02 Plan will be if the patient is able to tolerate full diet without any abdominal pain postprandially does not have any significant hematochezia and has stable hemoglobin she may be discharged on the fourth or fifth given the fact that she would need to promote ability to walk and care for herself. Hopefully nurse navigator to help arrange follow-up appointment with Dr. Johnson at [facility] vascular surgery (2) Urinary retention: Plan: acute self limited, Castañeda catheter placed in ER due to PVR 400ml. PT progressed to LEV. LEV once again recurred with her most recent bleed but now is resolved chronic kidney disease stage 4 is now present (3) Acute respiratory failure with hypoxia: Plan: Acute resolvedsuspect due to mild congestive pulmonary edema seen on CXR. secondary to HFpEF Diuretics resumed on 10/01 continue to follow hypoxemia may benefit from two-step prior to discharge as of small pleural effusions which are likely related to nutritional deficiencies given some n.p.o. 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 (6) Type 2 diabetes mellitus with diabetic neuropathy, unspecified: Plan: chronic stable Hold home glimepiride, on insulin ssi with variable diet Plan Consider disposition on or 10/04 Admission and Anticipated Discharge Date Admission Date: September 20, 2022 Subjective Patient reports feeling well. No abdominal pain. No n/v. Tolerating a regular diet. States her BMs are semi-solid and becoming more brown, less blood. no post prandial pain Physical Exam Physical Exam: Card exam is regular with a systolic murmur lungs are clear no wheezes or crackles Abdomen is NABS soft there is no focal tenderness, no rebound or guarding Results & Data Results & Data Vital Signs (Past 12 Hours) Vital Signs Temp Pulse Resp BP Pulse Ox O2 Del Method O2 Flow Rate 10/02/22 16:29 98.4 F 52 L 18 179/63 H 97 Room Air 10/02/22 08:00 Nasal Cannula 2 10/02/22 11:47 97.7 F 54 L 18 175/84 H 95 Room Air 10/02/22 07:49 97.7 F 60 18 164/78 H 97 Nasal Cannula 2 Laboratory Results reviewed cbc reviewed prp PG Care Time/CCT Total # of Minutes Spent Total Time Spent with Patient: Total time spent is greater than 50% in coordination of care (as documented) at patient's floor/unit and/or counseling patient: Coding Level of Care Code 41863 SUB INP/OBS CARE 2/35MIN Diagnoses Ischemic colitis K55.9 Urinary retention R33.9 Acute respiratory failure with hypoxia J96.01 (HFpEF) heart failure with preserved ejection fraction I50.30 Paroxysmal atrial fibrillation I48.0 Type 2 diabetes mellitus with diabetic neuropathy, unspecified E11.40
[2022-10-03] MEDS: PIPERACILLIN/TAZOBACTAM 4.5 GM in DEXTROSE 5% 100 ML IV SCH ×3 (03:29→18:33)
[2022-10-03 06:57] LABS: Calcium 8.4 mg/dl (8.6-10.3); Creatinine Clr Calc Pharmacy 33.8 ml/min; Est GFR (African American) 46.6 ml/min; Est GFR (Non-African American) 40.2 ml/min; Potassium 3.8 mmol/L (3.5-5.1)
[2022-10-03 07:20] LABS: Hematocrit (blood only) 27.8 % (37.0-47.0); Mean Corpuscular Hemoglobin 27.7 pg (25.0-34.0); Mean Corpuscular Hgb Conc 32.4 g/dL (32.0-36.0); Mean Corpuscular Volume 85.5 fL (80.0-100.0); Mean Platelet Volume 11.7 fL (9.4-12.4); Platelet Count 448 K/uL (130-400); RDW Coefficient of Variation 17.2 % (11.5-14.5); RDW Standard Deviation 50.7 fL (36.4-46.3); Red Blood Count 3.25 M/uL (4.20-5.40); White Blood Count 6.95 K/ul (4.8-10.8)
[2022-10-03] MEDS: PANTOprazole 40 MG TAB PO SCH ×2 (08:17→20:26)
[2022-10-03] MEDS: AMIODARONE 200 MG TAB PO SCH (08:17)
[2022-10-03] MEDS: carvediloL 6.25 MG TAB PO SCH ×2 (08:18→20:26)
[2022-10-03] MEDS: FUROSEMIDE 40 MG TAB PO SCH (08:18)
[2022-10-03] MEDS: ATORVASTATIN 40 MG TAB PO SCH (08:18)
[2022-10-03] MEDS: INSULIN ASPART PER UNIT CHARGE SC SCH ×4 (08:22→21:30)
[2022-10-03] MEDS: LANTUS PER UNIT CHARGE SC SCH (08:22)
--- NOTE | 2022-10-03 10:15 | Surgery Progress Note ---
Date of Service October 03, 2022 Assessment & Plan (1) Ischemic colitis: Plan: Patient remains stable without abdominal pain. States she is planned for discharge today and has an appointment to follow up with vascular surgery for revascularization. Please re-consult surgery if for some reason the patient remains admitted and develops abdominal concerns. Admission and Anticipated Discharge Date Admission Date: September 20, 2022 Subjective Patient was seen this am. Denies abdominal pain, fevers and nausea. Is tolerating her diet. C/o headache, elevated blood pressure. Physical Exam Gastrointestinal (Abdomen): Percussion/Palpation: abdomen soft; abdomen nontender, no guarding and abdomen not rigid Results & Data Vital Signs (Past 12 Hours) Vital Signs Temp Pulse Pulse Resp BP Pulse Ox O2 Del Method 10/03/22 08:00 66 10/03/22 08:00 Room Air 10/03/22 07:25 37.1 C 69 18 196/88 H 94 Room Air 10/03/22 03:36 37.0 C 66 18 171/70 H 90 Room Air 10/02/22 23:00 55 L 10/02/22 23:21 36.5 C 60 20 177/76 H 93 Room Air PG Care Time/CCT Total # of Minutes Spent Total Time Spent with Patient: Total time spent is greater than 50% in coordination of care (as documented) at patient's floor/unit and/or counseling patient: Coding [place] [address] SUB INP/OBS CARE 125MIN Patient Type Established History Problem Focused Exam Problem Focused Medical Decision Making Straight Forward Diagnoses Ischemic colitis K55.9
[2022-10-03] MEDS: hydrALAZINE HCL 20 MG/ML VIAL IV PRN ×2 (10:20→16:41)
--- NOTE | 2022-10-03 11:08 | Pharmacy Report ---
Pharmacy Glycemic Short Note 2 - Date of Service October 03, 2022 - Glycemic Short BSG Results (Last 24 hours): 10/02/22 10/02/22 10/02/22 11:45 16:28 20:38 Glucose POC Glucose 287 H 143 H 189 H 10/03/22 10/03/22 06:06 07:24 Glucose 138 H POC Glucose 146 H OUTPATIENT ANTIDIABETIC REGIMEN: * Glimepiride 4 mg PO BID * Metformin 1000 mg PO BIDM * HbA1c: 6.2% (09/21/22) ASSESSMENT: 10/03 * Post-prandial BSG's elevated on 10/01, but this was shortly after Lantus resumed. BSG at lunch yesterday also elevated, but no insulin adminsitered at breakfast and suspect uncovered PO intake. May consider tightening CHO ratio if lunch BSG again elevated today. * AM fasting BSG 146 mg/dL - continue same Lantus dose 10/01 * BSGs acceptable over the last 24 hrs * Fasting BSG 130-136 this AM with no basal insulin on board, however patient had been NPO for most of the day yesterday * Diet was advanced and pt reportedly tolerating well at this point * Will resume low dose Lantus at this time. * Plan to continue current Novolog CF + CR as they have performed well thus far PLAN FOR INPATIENT GLYCEMIC CONTROL: * Hold outpatient oral diabetes medications (glimepiride, metformin) * Basal insulin * Lantus 4 units SQ qAM * Bolus insulin * NovoLog per scale ACHS or Q6hrs while NPO * Goal Range: Low 120 mg/dL - High 150 mg/dL * Correction Factor: 40 mg/dL/unit * Nutritional / Prandial insulin per carb ratio of 1 unit per 18 grams CHO consumed
--- NOTE | 2022-10-03 16:05 | Hospitalist Progress Note ---
Date of Service October 03, 2022 Assessment & Plan (1) Ischemic colitis: Plan: Ischemic colitis, acute on chronic, high risk, improving CT abd/pelvis 09/28/22 colitis, most severe the cecum and right-sided colon. Cannot exclude inflammatory neoplasm. Recommend follow-up with colonoscopy following treatment and resolution of symptoms. Continued on Zosyn since 09/29/2022 Received Venofer, 2 units of PRBC 09/29, hemoglobin rise to 8.3 subsequently and remained stable/uptrending Prior hospitalist discussed with vascular surgery, conversation is below "degree of calcification near SMA and aorta exceeds his ability to do any procedures here. He recommended I call [facility] which I spoke to Dr. Sims. Dr. Sims feels that the patient may need surgery in the future but without mesenteric anginal symptoms or ischemic symptoms at this time emergent surgery is not necessitated requested a mesenteric Doppler study which does not show severe superior mesenteric artery stenosis. Thus will likely coordinate outpatient treatment if need be. I also spoke with a [place] general surgeon to discuss the fact of possibly with the patient benefit from a hemicolectomy given the persistent ischemic appearance he however said once again that that would be a surgery of last resort if she does have bowel infarction." Patient is tolerating advancement of diet, no hematochezia, hemoglobin stable, and patient is increasingly feeling well. From a ischemic colitis standpoint doing well and improving, likely ready for discharge tomorrow if tolerating diet. Discharge has been limited today by hypertension and gradual reintro duction of antihypertensives in the setting of kidney injury. Patient seen, and again in afternoon seen with family present and were updated on the plan (2) Urinary retention: Plan: acute self limited, Castañeda catheter placed in ER due to PVR 400ml. With LEV, gradually improving LEV nearly completely resolved today, in the setting of hypertension with near normal creatinine we will restart Entresto, follow renal function in the morning, and then serially restart spironolactone if continuing to do well (3) Acute respiratory failure with hypoxia: Plan: Acute resolvedsuspect due to mild congestive pulmonary edema seen on CXR. secondary to HFpEF Diuretics resumed on 10/01 continue to follow hypoxemia may benefit from two-step prior to discharge as of small pleural effusions which are likely related to nutritional deficiencies given some n.p.o. status during her hospital stay Legs are with increased edema, continue Lasix 5/. Edema is asymmetrical which is unusual for patient and has been off blood thinners. 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 (6) Type 2 diabetes mellitus with diabetic neuropathy, unspecified: Plan: chronic stable Hold home glimepiride, on insulin ssi with variable diet (7) HTN (hypertension): Plan: Acute on chronic, requiring IV hydralazine for acute control In the setting of home antihypertensives held for LEV, LEV is resolving as noted. Entresto resumed, spironolactone pending renal function as noted. Hydralazine every 4 hours as needed as needed for BP greater than 180 Plan Ischemic colitis greatly improved 10/03. Discharge currently pending improvement in blood pressure control which has been limited by resolving LEV and lower extremity swelling evaluation. Admission and Anticipated Discharge Date Admission Date: September 20, 2022 Subjective Feels well at bedside. Has noticed some asymmetrical left-sided swelling, with a little bit of swelling in her right ankle. She is not short of breath, no lightheadedness or dizziness. Feels well and diet is advancing, but has some headache with high blood pressure today. No nausea/vomiting/diarrhea. No vision change. No weakness Review of Systems Review of Systems: All systems reviewed & are unremarkable except as noted in HPI & below Physical Exam Physical Exam: General: A&Ox3. NAD. Cooperative. HEENT: Atraumatic, normocephalic. Vision and hearing grossly intact Pulm: CTAB A&P. -wheezes, -rales, -rhonchi. Symmetrical chest rise. No increased work of breathing. No respiratory distress. Cardiac: RRR, -mrg. Radial pulses intact and symmetrical. Abdominal: Nontender, nondistended, soft. BS present. Extremities: 1+ pitting edema in the right ankle, 2+ left ankle. Right ankle is chronically tender to palpation due to history of traumatic injury with plate in place. Results & Data Results & Data Vital Signs (Past 12 Hours) Vital Signs Temp Pulse Pulse Resp BP BP Pulse Ox 10/03/22 11:13 36.9 C 58 L 18 159/60 H 95 10/03/22 08:00 66 10/03/22 08:00 10/03/22 07:25 37.1 C 69 18 196/88 H 94 O2 Del Method 10/03/22 11:13 Room Air 10/03/22 08:00 10/03/22 08:00 Room Air 10/03/22 07:25 Room Air PG Care Time/CCT Total # of Minutes Spent Total Time Spent with Patient: Total time spent is greater than 50% in coordination of care (as documented) at patient's floor/unit and/or counseling patient: Coding Level of Care Code 44176 SUB INP/OBS CARE 3/50MIN Diagnoses Ischemic colitis K55.9 Urinary retention R33.9 Acute respiratory failure with hypoxia J96.01 (HFpEF) heart failure with preserved ejection fraction I50.30 Paroxysmal atrial fibrillation I48.0 Type 2 diabetes mellitus with diabetic neuropathy, unspecified E11.40 HTN (hypertension) I10
--- NOTE | 2022-10-03 16:12 | Ultrasound Report ---
LEFT LOWER EXTREMITY VENOUS DOPPLER CLINICAL HISTORY: Left lower extremity swelling. COMPARISON STUDY: No previous studies for comparison. TECHNIQUE: Sonography of the deep venous system of the left lower extremity was performed. Compressi on and augmentation were evaluated. FINDINGS: The left common femoral, superficial femoral and popliteal veins were compressible. Augmen tation was normal. Flow was shown within the deep calf vessels. Note is made of a small left poplitea l cyst that measures 3.8 x 3 x 0.8 cm. There is left lower extremity subcutaneous edema. IMPRESSION: 1. No evidence of deep venous thrombus within the left lower extremity. 2. Small left popliteal cyst. ACT 112: Negative or not required by law. Electronically signed by: Levy Farah M.D. 10/03/2022 4:11 PM
[2022-10-03] MEDS: VALSARTAN/SACUBITRIL 26/24MG TAB PO SCH (20:25)
[2022-10-03] MEDS ORDERED: FUROSEMIDE INJ 20 MG/2 ML VIAL IV ONE (21:15)
[2022-10-04] MEDS: PIPERACILLIN/TAZOBACTAM 4.5 GM in DEXTROSE 5% 100 ML IV SCH ×3 (03:25→18:13)
[2022-10-04] MEDS: hydrALAZINE HCL 20 MG/ML VIAL IV PRN ×2 (03:36→07:36)
[2022-10-04 07:33] LABS: Basophils # (auto) 0.05 K/uL (0-0.2); Basophils % (auto) 0.9 %; Eosinophils # (auto) 0.16 K/uL (0-0.50); Hematocrit (blood only) 25.9 % (37.0-47.0); Hemoglobin 8.4 g/dl (12.0-16.0); Immature Granulocytes # (auto) 0.02 K/uL (0.01-0.20); Immature Granulocytes % (auto) 0.4 %; Lymphocytes # (auto) 0.58 K/uL (1.2-3.4); Lymphocytes % (auto) 10.7 %; Mean Corpuscular Hemoglobin 27.5 pg (25.0-34.0); Mean Corpuscular Hgb Conc 32.4 g/dL (32.0-36.0); Mean Corpuscular Volume 84.9 fL (80.0-100.0); Mean Platelet Volume 11.7 fL (9.4-12.4); Monocytes # (auto) 0.58 K/uL (0.11-0.59); Monocytes % (auto) 10.7 %; Neutrophils # (auto) 4.02 K/uL (1.40-6.50); Neutrophils % (auto) 74.3 %; Platelet Count 380 K/uL (130-400); RDW Coefficient of Variation 17.9 % (11.5-14.5); RDW Standard Deviation 53.2 fL (36.4-46.3); Red Blood Count 3.05 M/uL (4.20-5.40); White Blood Count 5.41 K/ul (4.8-10.8)
[2022-10-04 07:48] LABS: BUN Creatinine Ratio 19.5 (10-20); Calcium 8.1 mg/dl (8.6-10.3); Creatinine Clr Calc Pharmacy 34.7 ml/min; Est GFR (Non-African American) 41.4 ml/min; Potassium 3.3 mmol/L (3.5-5.1)
[2022-10-04] MEDS ORDERED: amLODIPine BESYLATE 5 MG TAB PO ONE (08:33)
[2022-10-04] MEDS: INSULIN ASPART PER UNIT CHARGE SC SCH ×4 (08:36→20:59)
[2022-10-04] MEDS: VALSARTAN/SACUBITRIL 26/24MG TAB PO SCH ×2 (08:43→20:58)
[2022-10-04] MEDS: ATORVASTATIN 40 MG TAB PO SCH (08:43)
[2022-10-04] MEDS: AMIODARONE 200 MG TAB PO SCH (08:44)
[2022-10-04] MEDS: carvediloL 6.25 MG TAB PO SCH ×2 (08:44→20:58)
[2022-10-04] MEDS: FUROSEMIDE 40 MG TAB PO SCH (08:44)
[2022-10-04] MEDS: PANTOprazole 40 MG TAB PO SCH ×2 (08:44→20:58)
[2022-10-04] MEDS ORDERED: LANTUS PER UNIT CHARGE SC SCH (09:00)
[2022-10-04] MEDS: SPIRONOLACTONE 25 MG TAB PO SCH (10:00)
--- NOTE | 2022-10-04 10:57 | Nephrology Consultation ---
Date of Consultation October 04, 2022 Assessment & Plan (1) HTN (hypertension): (2) LEV (acute kidney injury): (3) Mesenteric artery thrombosis: (4) Ischemic colitis: (5) S/P TAVR (transcatheter aortic valve replacement): Plan Refractory HTN. BP remains elevated despite four medications, one of which is a diuretic. Aortic stenosis may be a contributing factor. As an outpatient Ms. Gould was on the current medical regimen as well as Amlodipine 10 mg po BID. Recommend restarting Amlodipine according to her outpatient dose and close monitoring of BP. No further Nephrology evaluation indicated at this time. LEV has resolved and kidney function is back to baseline (Cr 0.9-1.2). Will sign off. Patient may follow up as outpatient w/ her [facility]geon. Daughter, Mamie was updated by telephone this morning. History of Present Illness Reason for Consultation: Hypertension Attending Physician: Barry De Luna History of Present Illness Ms. Gould is an 82 year old female who is seen at the request of Dr. De Luna for evaluation of hypertension. I have spoken with her daughter Mamie by telephone this am. Medical records in the EMR were reviewed today and are summarized as follows: Ms. Gould's medical history is significant for ASCVD, HFpEF, TAVR, anemia, PAD w/ L fem fem BPG, HTN and AODM. She was admitted to [facility] 09/20/22 for evaluation of abdominal discomfort. She suffered LEV due to contrast induced nephropathy in the setting of ARB therapy. Creatinine returned to baseline with conservative management. CT angiogram revealed severe atherosclerosis of the abdominal aorta and SMA with evidence of ischemic colitis. Vascular surgery recommended transfer to tertiary care center for ongoing management/surgical intervention. Primary service is now requesting assistance w/ BP management. SBP overnight has been 170-200 mm Hg. Current antihypertensive regimen includes Carvedilol 6.25 mg BID, Entresto 26/24 BID, Spironolactone 25 mg daily and Furosemide 40 mg each morning. Patient informs me that she is on Amlodipine at home and has not yet received it this hospitalization. Ms. Gould currently denies PENA, visual change, angina, or dyspnea. She does have mild LE swelling. Allergies Allergy/AdvReac Type Severity Reaction Status Date / Time fenofibrate AdvReac Intermediate INCREASED Verified 09/20/22 09:43 URINATION metoprolol AdvReac Intermediate VOMIT,DIARR Verified 09/20/22 09:43 HEA valsartan AdvReac Intermediate Weakness Verified 09/20/22 09:43 verapamil AdvReac Intermediate INCREASED Verified 09/20/22 09:43 URINATION Home Medications Medication Instructions Recorded Confirmed Type aspirin 81 mg tablet,delayed 81 mg PO HS 03/04/20 09/20/22 History release metformin 500 mg tablet,extended 1,000 mg PO BIDM 03/04/20 09/20/22 History release 24 hr coenzyme Q10 100 mg capsule 100 mg PO QAM 12/01/20 09/20/22 History (CoQ-10) fish, borage, flaxseed oils-omega 1 cap PO QDD 12/01/20 09/20/22 History 3,6,9 comb no.1 1,200 mg capsule ([place] 3-6-9) atorvastatin 40 mg tablet 40 mg PO QAM 02/26/21 09/20/22 History multivitamin 1 tab PO QAM 02/26/21 09/20/22 History ferrous sulfate 325 mg (65 mg 325 mg PO BID #60 tabs 05/02/21 09/20/22 Rx iron) tablet amiodarone 200 mg tablet 200 mg PO QAM 07/01/21 09/20/22 History hydralazine 100 mg tablet 100 mg PO TID 07/01/21 09/20/22 History pantoprazole 40 mg tablet,delayed 40 mg PO BID 07/01/21 09/20/22 History release glimepiride 4 mg tablet 4 mg PO BID 12/21/21 09/20/22 History carvedilol 6.25 mg tablet 6.25 mg PO BID #60 tabs 12/27/21 09/20/22 Rx furosemide 40 mg tablet 40 mg PO QAM #30 tabs 12/27/21 09/20/22 Rx magnesium oxide 400 mg (241.3 mg 400 mg PO BID #60 tabs 12/27/21 09/20/22 Rx magnesium) tablet clopidogrel 75 mg tablet 75 mg PO QAM #30 tabs 03/06/22 09/20/22 Rx amlodipine 10 mg tablet 10 mg PO BID 06/20/22 09/20/22 History sacubitril 24 mg-valsartan 26 mg 1 tab PO BID 09/20/22 09/20/22 History tablet (Entresto) spironolactone 25 mg tablet 25 mg PO QAM 09/20/22 09/20/22 History Patient History Medical History Acute non-ST elevation myocardial infarction (NSTEMI) Acute on chronic heart failure with preserved ejection fraction (HFpEF) LEV (acute kidney injury) Anemia Bradycardia CAD (coronary artery disease) CVA (cerebral vascular accident) (~2018) no deficits Elevated troponin Hyperkalemia Hyperlipemia Hyponatremia Hypoxia Myocardial infarct, old follows with Dr. Mcpherson Occlusion of right iliac artery PAD (peripheral artery disease) Pneumonia hx S/P angiogram of extremity (02/02/21) Type 2 diabetes mellitus with diabetic neuropathy, unspecified NIDDM Surgical History H/O removal of cyst right abdominal area History of bunionectomy of right great toe History of cardiac cath (~2018) History of heart artery stent (~2018) x1. at [facility]. Status post ORIF of fracture of ankle Family History Other No family history of adverse response to anesthesia Social History Smoking Status: Former smoker Tobacco Type: Cigarettes Second Hand Exposure: No; Do You Dip or Chew Tobacco: No; Hx Alcohol Use: No Hx Substance Use: No Preferred Language: [place] Communication Ability: Effective Communication Ability Comment: difficulty comprehending at times - Mamie hagen is typically her caregiver [employer] T[employer] Required: No Beliefs That Will Affect Care: None marital status: / Current Living Situation: Family Current Living Situation Comment: currently moving in with daughter current occupational status: retired How many Children do You have: 1 Other Information That Helps Us Care for You: No Feels Safe at Home: Yes Safety Concerns: Feels Safe At This Time Assistive Devices: None Review of Systems Constitutional: no fever Eyes: no problem reported Ear, Nose, Mouth, Throat: no problem reported Respiratory: no dyspnea Cardiovascular: no chest pain Gastrointestinal: no abdominal pain Genitourinary: no dysuria Neurologic: no confusion Physical Exam Constitutional: not in distress Eyes: PERRL, conjunctivae normal, anicteric sclerae ENMT: external ear and nose normal, oropharynx normal Neck: trachea midline, no thyromegaly Respiratory: normal respiratory effort, lungs clear to auscultation Cardiovascular: Rate/Rhythm: regular rate and regular rhythm Vessels: no renal bruit Extremities: + edema (trace swelling) Gastrointestinal (Abdomen): normal bowel sounds, soft, nontender, no hepatosplenomegaly Neurologic: Speech / Cognition: normal speech and normal cognition Results & Data Vital Signs (Past 12 Hours) Vital Signs Temp Pulse Pulse Resp BP BP Pulse Ox 10/04/22 09:39 65 10/04/22 08:42 177/68 H 10/04/22 08:10 36.7 C 74 22 193/75 H 96 10/04/22 03:30 200/68 H 10/04/22 04:31 174/67 H 10/04/22 03:24 36.9 C 63 18 94 10/03/22 23:18 36.9 C 63 18 172/66 H 95 O2 Del Method O2 Flow Rate 10/04/22 09:39 10/04/22 08:42 10/04/22 08:10 Nasal Cannula 1.5 10/04/22 03:30 10/04/22 04:31 10/04/22 03:24 Nasal Cannula 2 10/03/22 23:18 Nasal Cannula 2 Laboratory Results Laboratory Results - last 24 hr 10/03/22 10/03/22 10/04/22 16:35 20:04 04:25 WBC RBC Hgb Hct MCV MCH MCHC RDW Std Deviation RDW Coeff of Alysa Plt Count MPV Immature Gran % (Auto) Neut % (Auto) Lymph % (Auto) [place] % (Auto) Eos % (Auto) Baso % (Auto) Neut # (Auto) Lymph # (Auto) [place] # (Auto) Eos # (Auto) Baso # (Auto) Immature Gran # (Auto) Sodium Potassium Chloride Carbon Dioxide Anion Gap BUN Creatinine Est Cr Clr Drug Dosing Est GFR ( Amer) Est GFR (Non-Af Amer) BUN/Creatinine Ratio Glucose POC Glucose 141 H 147 H 175 H Calcium 10/04/22 10/04/22 10/04/22 06:45 06:45 07:14 WBC 5.41 RBC 3.05 L Hgb 8.4 L Hct 25.9 L MCV 84.9 MCH 27.5 MCHC 32.4 RDW Std Deviation 53.2 H RDW Coeff of Alysa 17.9 H Plt Count 380 MPV 11.7 Immature Gran % (Auto) 0.4 Neut % (Auto) 74.3 Lymph % (Auto) 10.7 [place] % (Auto) 10.7 Eos % (Auto) 3.0 Baso % (Auto) 0.9 Neut # (Auto) 4.02 Lymph # (Auto) 0.58 L [place] # (Auto) 0.58 Eos # (Auto) 0.16 Baso # (Auto) 0.05 Immature Gran # (Auto) 0.02 Sodium 140 Potassium 3.3 L Chloride 106 Carbon Dioxide 28 Anion Gap 6 BUN 24 H Creatinine 1.23 H Est Cr Clr Drug Dosing 34.7 Est GFR ( Amer) 48.0 Est GFR (Non-Af Amer) 41.4 BUN/Creatinine Ratio 19.5 Glucose 150 H POC Glucose 153 H Calcium 8.1 L 10/04/22 11:21 WBC RBC Hgb Hct MCV MCH MCHC RDW Std Deviation RDW Coeff of Alysa Plt Count MPV Immature Gran % (Auto) Neut % (Auto) Lymph % (Auto) [place] % (Auto) Eos % (Auto) Baso % (Auto) Neut # (Auto) Lymph # (Auto) [place] # (Auto) Eos # (Auto) Baso # (Auto) Immature Gran # (Auto) Sodium Potassium Chloride Carbon Dioxide Anion Gap BUN Creatinine Est Cr Clr Drug Dosing Est GFR ( Amer) Est GFR (Non-Af Amer) BUN/Creatinine Ratio Glucose POC Glucose 155 H Calcium Diagnostic Findings 09/[address] w/ contrast: 1. Findings are compatible with continued colitis of the cecum and ascending colon, possibly ischemic colitis. No perforation is seen. Free fluid in the pelvis may be reactive, increased from prior exam. 2. Small right pleural effusion. 09/30/22 Mesenteric US: Limited exam secondary to obscuring bowel gas. Is extensive atherosclerosis of the abdominal aorta redemonstrated with peak systolic velocities measuring up to 83 cm/s. Peak systolic velocities in the celiac artery measure up to 255 cm/s within the proximal superior mesenteric artery measures up to 248 cm/s. Distal SMA is obscured by bowel gas. The previously noted occlusion of the proximal SMA is also not seen. Nonvisualization of the inferior mesenteric artery. 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 This would require an aortic endarterectomy and aortic to SMA bypass for revascularization. Due to her multiple significant medical problems, this would best be done at a tertiary center. Management of the ischemic colon per GI/general surgery. Dr Cash discussed with Dr Casiano. PG Care Time/CCT Total # of Minutes Spent Total Time Spent with Patient: Total time spent is greater than 50% in coordination of care (as documented) at patient's floor/unit and/or counseling patient: Coding Level of Care Code 73893 IN/OBS CONSULT LVL 5,80M Diagnoses HTN (hypertension) I10 LEV (acute kidney injury) N17.9 Mesenteric artery thrombosis K55.069 Ischemic colitis K55.9 S/P TAVR (transcatheter aortic valve replacement) Z95.2
--- NOTE | 2022-10-04 13:42 | Pharmacy Report ---
Pharmacy Glycemic Short Note 2 - Date of Service October 04, 2022 - Glycemic Short BSG Results (Last 24 hours): 10/03/22 10/03/22 10/04/22 16:35 20:04 04:25 Glucose POC Glucose 141 H 147 H 175 H 10/04/22 10/04/22 10/04/22 06:45 07:14 11:21 Glucose 150 H POC Glucose 153 H 155 H OUTPATIENT ANTIDIABETIC REGIMEN: * Glimepiride 4 mg PO BID * Metformin 1000 mg PO BIDM * HbA1c: 6.2% (09/21/22) ASSESSMENT: 10/04: * Adri received 13 units of insulin yesterday, 4 units basal + 9 units bolus. BSGs were: [phone] mg/dL. * Fasting BSG continued to trend up today, 153 mg/dL. Will increase basal by 20% today. * No change to bolus regimen required at this time. 10/03: * Post-prandial BSG's elevated on 10/01, but this was shortly after Lantus resumed. BSG at lunch yesterday also elevated, but no insulin adminsitered at breakfast and suspect uncovered PO intake. May consider tightening CHO ratio if lunch BSG again elevated today. * AM fasting BSG 146 mg/dL - continue same Lantus dose 10/01: * BSGs acceptable over the last 24 hrs * Fasting BSG 130-136 this AM with no basal insulin on board, however patient had been NPO for most of the day yesterday * Diet was advanced and pt reportedly tolerating well at this point * Will resume low dose Lantus at this time. * Plan to continue current Novolog CF + CR as they have performed well thus far PLAN FOR INPATIENT GLYCEMIC CONTROL: * Hold outpatient oral diabetes medications * Basal insulin * Lantus 5 units SC AM * Bolus insulin * NovoLog per scale ACHS or Q6hrs while NPO * Goal Range: Low 120 mg/dL - High 150 mg/dL * Correction Factor: 40 mg/dL/unit * Nutritional / Prandial insulin per carb ratio of 1 unit per 18 grams CHO consumed
--- NOTE | 2022-10-04 22:00 | Hospitalist Progress Note ---
Date of Service October 04, 2022 Assessment & Plan (1) Ischemic colitis: Plan: Ischemic colitis, acute on chronic, high risk, improving CT abd/pelvis 09/28/22 colitis, most severe the cecum and right-sided colon. Cannot exclude inflammatory neoplasm. Recommend follow-up with colonoscopy following treatment and resolution of symptoms. Continued on Zosyn since 09/29/2022 Received Venofer, 2 units of PRBC 09/29, hemoglobin rise to 8.3 subsequently and remained stable/uptrending Prior hospitalist discussed with vascular surgery, conversation is below "degree of calcification near SMA and aorta exceeds his ability to do any procedures here. He recommended I call [facility] which I spoke to Dr. Sims. Dr. Sims feels that the patient may need surgery in the future but without mesenteric anginal symptoms or ischemic symptoms at this time emergent surgery is not necessitated requested a mesenteric Doppler study which does not show severe superior mesenteric artery stenosis. Thus will likely coordinate outpatient treatment if need be. I also spoke with a [place] general surgeon to discuss the fact of possibly with the patient benefit from a hemicolectomy given the persistent ischemic appearance he however said once again that that would be a surgery of last resort if she does have bowel infarction." Patient is tolerating advancement of diet, no hematochezia, hemoglobin stable, and patient is increasingly feeling well. From a ischemic colitis standpoint doing well and improving, likely ready for discharge tomorrow if tolerating diet. Discharge has been limited today by hypertension and gradual reintro duction of antihypertensives in the setting of kidney injury. Added amlodipine, consulted nephro. will monitor. Also concern with hemoglobin downtrending. (2) Urinary retention: Plan: acute self limited, Castañeda catheter placed in ER due to PVR 400ml. With LEV, gradually improving LEV nearly completely resolved today, in the setting of hypertension with near normal creatinine we will restart Entresto, follow renal function in the morning, and then serially restart spironolactone if continuing to do well (3) Acute respiratory failure with hypoxia: Plan: Acute resolvedsuspect due to mild congestive pulmonary edema seen on CXR. secondary to HFpEF Diuretics resumed on 10/01 continue to follow hypoxemia may benefit from two-step prior to discharge as of small pleural effusions which are likely related to nutritional deficiencies given some n.p.o. status during her hospital stay Legs are with increased edema, continue Lasix 5/. Edema is asymmetrical which is unusual for patient and has been off blood thinners. 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 (6) Type 2 diabetes mellitus with diabetic neuropathy, unspecified: Plan: chronic stable Hold home glimepiride, on insulin ssi with variable diet (7) HTN (hypertension): Plan: Acute on chronic, requiring IV hydralazine for acute control In the setting of home antihypertensives held for LEV, LEV is resolving as noted. Entresto resumed, spironolactone pending renal function as noted. Hydralazine every 4 hours as needed as needed for BP greater than 180 Plan Ischemic colitis greatly improved 10/03. Discharge currently pending improvement in blood pressure control which has been limited by resolving LEV and lower extremity swelling evaluation. Admission and Anticipated Discharge Date Admission Date: September 20, 2022 Subjective Patient reports no new symptoms. Review of Systems Review of Systems: All systems reviewed & are unremarkable except as noted in HPI & below Physical Exam Physical Exam: General: A&Ox3. NAD. Cooperative. HEENT: Atraumatic, normocephalic. Vision and hearing grossly intact Pulm: CTAB A&P. -wheezes, -rales, -rhonchi. Symmetrical chest rise. No increased work of breathing. No respiratory distress. Cardiac: RRR, -mrg. Radial pulses intact and symmetrical. Abdominal: Nontender, nondistended, soft. BS present. Extremities: 1+ pitting edema in the right ankle, 2+ left ankle. Right ankle is chronically tender to palpation due to history of traumatic injury with plate in place. Results & Data Results & Data Vital Signs (Past 12 Hours) Vital Signs Temp Pulse Pulse Resp BP BP Pulse Ox 10/04/22 19:34 37.0 C 59 L 18 174/86 H 93 10/04/22 19:22 10/04/22 16:29 36.7 C 52 L 19 169/51 H 98 10/04/22 15:43 51 L 10/04/22 12:23 36.9 C 50 L 19 152/57 H 96 O2 Del Method O2 Flow Rate 10/04/22 19:34 Nasal Cannula 1.0 10/04/22 19:22 Nasal Cannula 2 10/04/22 16:29 Room Air 10/04/22 15:43 10/04/22 12:23 Nasal Cannula 1.0 PG Care Time/CCT Total # of Minutes Spent Total Time Spent with Patient: Total time spent is greater than 50% in coordination of care (as documented) at patient's floor/unit and/or counseling patient: Coding Level of Care Code 78459 SUB INP/OBS CARE 2/35MIN Diagnoses Ischemic colitis K55.9 Urinary retention R33.9 Acute respiratory failure with hypoxia J96.01 (HFpEF) heart failure with preserved ejection fraction I50.30 Paroxysmal atrial fibrillation I48.0 Type 2 diabetes mellitus with diabetic neuropathy, unspecified E11.40 HTN (hypertension) I10
[2022-10-05] MEDS: PIPERACILLIN/TAZOBACTAM 4.5 GM in DEXTROSE 5% 100 ML IV SCH ×3 (03:17→17:26)
[2022-10-05] MEDS: hydrALAZINE HCL 20 MG/ML VIAL IV PRN (03:23)
[2022-10-05 06:53] LABS: Hematocrit (blood only) 30.5 % (37.0-47.0); Mean Corpuscular Hemoglobin 28.2 pg (25.0-34.0); Mean Corpuscular Hgb Conc 32.8 g/dL (32.0-36.0); Mean Corpuscular Volume 85.9 fL (80.0-100.0); Mean Platelet Volume 10.9 fL (9.4-12.4); Platelet Count 416 K/uL (130-400); RDW Coefficient of Variation 17.8 % (11.5-14.5); RDW Standard Deviation 55.5 fL (36.4-46.3); Red Blood Count 3.55 M/uL (4.20-5.40); White Blood Count 5.52 K/ul (4.8-10.8)
[2022-10-05 07:13] LABS: BUN Creatinine Ratio 19.8 (10-20); Calcium 8.4 mg/dl (8.6-10.3); Creatinine Clr Calc Pharmacy 33.9 ml/min; Est GFR (African American) 46.6 ml/min; Est GFR (Non-African American) 40.2 ml/min; Potassium 3.3 mmol/L (3.5-5.1)
[2022-10-05] MEDS: PANTOprazole 40 MG TAB PO SCH ×2 (08:04→21:06)
[2022-10-05] MEDS: VALSARTAN/SACUBITRIL 26/24MG TAB PO SCH ×2 (08:04→21:06)
[2022-10-05] MEDS: carvediloL 6.25 MG TAB PO SCH ×2 (08:04→21:07)
[2022-10-05] MEDS: AMIODARONE 200 MG TAB PO SCH (08:05)
[2022-10-05] MEDS: ATORVASTATIN 40 MG TAB PO SCH (08:05)
[2022-10-05] MEDS: SPIRONOLACTONE 25 MG TAB PO SCH (08:05)
[2022-10-05] MEDS: FUROSEMIDE 40 MG TAB PO SCH (08:05)
[2022-10-05] MEDS: INSULIN ASPART PER UNIT CHARGE SC SCH ×4 (08:15→21:05)
[2022-10-05] MEDS: LANTUS PER UNIT CHARGE SC SCH (08:15)
[2022-10-05] MEDS ORDERED: amLODIPine BESYLATE 5 MG TAB PO ONE (09:28)
[2022-10-05] MEDS ORDERED: hydrALAZINE 10 MG TAB PO STA (17:11)
[2022-10-05] MEDS: hydrALAZINE 10 MG TAB PO SCH (21:06)
[2022-10-05] MEDS: amLODIPine BESYLATE 5 MG TAB PO SCH (21:07)
--- NOTE | 2022-10-05 23:00 | Hospitalist Progress Note ---
Date of Service October 05, 2022 Assessment & Plan (1) Ischemic colitis: Plan: Ischemic colitis, acute on chronic, high risk, improving CT abd/pelvis 09/28/22 colitis, most severe the cecum and right-sided colon. Cannot exclude inflammatory neoplasm. Recommend follow-up with colonoscopy following treatment and resolution of symptoms. Continued on Zosyn since 09/29/2022 Received Venofer, 2 units of PRBC 09/29, hemoglobin rise to 8.3 subsequently and remained stable/uptrending Prior hospitalist discussed with vascular surgery, conversation is below "degree of calcification near SMA and aorta exceeds his ability to do any procedures here. He recommended I call [facility] which I spoke to Dr. Sims. Dr. Sims feels that the patient may need surgery in the future but without mesenteric anginal symptoms or ischemic symptoms at this time emergent surgery is not necessitated requested a mesenteric Doppler study which does not show severe superior mesenteric artery stenosis. Thus will likely coordinate outpatient treatment if need be. I also spoke with a [place] general surgeon to discuss the fact of possibly with the patient benefit from a hemicolectomy given the persistent ischemic appearance he however said once again that that would be a surgery of last resort if she does have bowel infarction." Patient is tolerating advancement of diet, no hematochezia, hemoglobin stable, and patient is increasingly feeling well. From a ischemic colitis standpoint doing well and improving, likely ready for discharge tomorrow if tolerating diet. Discharge has been limited today by hypertension and gradual reintro duction of antihypertensives in the setting of kidney injury. Added amlodipine, consulted nephro. will monitor. Hemoglobin is stable. Will add hydaralazine and monitor BP. Anticipate discharge once BP is better controlled. (2) Urinary retention: Plan: acute self limited, Castañeda catheter placed in ER due to PVR 400ml. With LEV, gradually improving LEV nearly completely resolved today, in the setting of hypertension with near normal creatinine we will restart Entresto, follow renal function in the morning, and then serially restart spironolactone if continuing to do well (3) Acute respiratory failure with hypoxia: Plan: Acute resolvedsuspect due to mild congestive pulmonary edema seen on CXR. secondary to HFpEF Diuretics resumed on 10/01 continue to follow hypoxemia may benefit from two-step prior to discharge as of small pleural effusions which are likely related to nutritional deficiencies given some n.p.o. status during her hospital stay Legs are with increased edema, continue Lasix 5/. Edema is asymmetrical which is unusual for patient and has been off blood thinners. 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 (6) Type 2 diabetes mellitus with diabetic neuropathy, unspecified: Plan: chronic stable Hold home glimepiride, on insulin ssi with variable diet (7) HTN (hypertension): Plan: Acute on chronic, requiring IV hydralazine for acute control In the setting of home antihypertensives held for LEV, LEV is resolving as noted. Entresto resumed, spironolactone pending renal function as noted. Hydralazine every 4 hours as needed as needed for BP greater than 180 Plan Ischemic colitis greatly improved 10/03. Discharge currently pending improvement in blood pressure control which has been limited by resolving LEV and lower extremity swelling evaluation. Admission and Anticipated Discharge Date Admission Date: September 20, 2022 Subjective Patient reports no new symptoms. Review of Systems Review of Systems: All systems reviewed & are unremarkable except as noted in HPI & below Physical Exam Physical Exam: General: A&Ox3. NAD. Cooperative. HEENT: Atraumatic, normocephalic. Vision and hearing grossly intact Pulm: CTAB A&P. -wheezes, -rales, -rhonchi. Symmetrical chest rise. No increased work of breathing. No respiratory distress. Cardiac: RRR, -mrg. Radial pulses intact and symmetrical. Abdominal: Nontender, nondistended, soft. BS present. Extremities: 1+ pitting edema in the right ankle, 2+ left ankle. Right ankle is chronically tender to palpation due to history of traumatic injury with plate in place. Results & Data Results & Data Vital Signs (Past 12 Hours) Vital Signs Temp Pulse Pulse Resp BP Pulse Ox O2 Del Method 10/05/22 19:34 Room Air 05/06/23 19:22 37.0 C 60 18 184/72 H 93 Room Air 10/05/22 17:07 56 L 10/05/22 15:28 36.8 C 58 L 19 178/72 H 93 Room Air PG Care Time/CCT Total # of Minutes Spent Total Time Spent with Patient: Total time spent is greater than 50% in coordination of care (as documented) at patient's floor/unit and/or counseling patient: Coding Level of Care Code 60559 SUB INP/OBS CARE 2/35MIN Diagnoses Ischemic colitis K55.9 Urinary retention R33.9 Acute respiratory failure with hypoxia J96.01 (HFpEF) heart failure with preserved ejection fraction I50.30 Paroxysmal atrial fibrillation I48.0 Type 2 diabetes mellitus with diabetic neuropathy, unspecified E11.40 HTN (hypertension) I10
[2022-10-05] MEDS: ACETAMINOPHEN 325 MG TAB PO PRN (23:38)
[2022-10-06] MEDS ORDERED: hydrALAZINE HCL 20 MG/ML VIAL IV STA (03:31)
[2022-10-06] MEDS: PIPERACILLIN/TAZOBACTAM 4.5 GM in DEXTROSE 5% 100 ML IV SCH ×2 (03:55→10:29)
[2022-10-06] MEDS: AMIODARONE 200 MG TAB PO SCH (07:10)
[2022-10-06] MEDS: FUROSEMIDE 40 MG TAB PO SCH (07:10)
[2022-10-06] MEDS: ATORVASTATIN 40 MG TAB PO SCH (07:10)
[2022-10-06] MEDS: PANTOprazole 40 MG TAB PO SCH (07:10)
[2022-10-06] MEDS: hydrALAZINE 10 MG TAB PO SCH (07:10)
[2022-10-06] MEDS: amLODIPine BESYLATE 5 MG TAB PO SCH (07:11)
[2022-10-06] MEDS: SPIRONOLACTONE 25 MG TAB PO SCH (07:11)
[2022-10-06] MEDS: VALSARTAN/SACUBITRIL 26/24MG TAB PO SCH (07:11)
[2022-10-06] MEDS: carvediloL 6.25 MG TAB PO SCH (07:11)
[2022-10-06] MEDS: ACETAMINOPHEN 325 MG TAB PO PRN (07:15)
[2022-10-06] MEDS: LANTUS PER UNIT CHARGE SC SCH (08:44)
[2022-10-06] MEDS: INSULIN ASPART PER UNIT CHARGE SC SCH ×2 (08:44→11:52)
[2022-10-06] MEDS ORDERED: hydrALAZINE 10 MG TAB PO ONE (09:00)
--- NOTE | 2022-10-06 09:36 | Pharmacy Report ---
Pharmacy Glycemic Short Note 2 - Date of Service October 06, 2022 - Glycemic Short BSG Results (Last 24 hours): 10/05/22 10/05/22 10/05/22 11:26 16:20 20:21 POC Glucose 208 H 135 H 172 H 10/06/22 07:18 POC Glucose 124 H OUTPATIENT ANTIDIABETIC REGIMEN: * Glimepiride 4 mg PO BID * Metformin 1000 mg PO BIDM * HbA1c: 6.2% (09/21/22) ASSESSMENT: 10/06/22 * Patient's BSGs yesterday were 270-201-259-172 mg/dL. Patient received 25 units of insulin (6 units of basal and 19 units of bolus). * Fasting today is 124 mg/dL. * Lantus was increased from 5 units to 6 units yesterday. Continue. * For Novolog, will tighten CR slightly as BSGs trend upwards throughout the day. 10/04: * Adri received 13 units of insulin yesterday, 4 units basal + 9 units bolus. BSGs were: 410-380-691-147 mg/dL. * Fasting BSG continued to trend up today, 153 mg/dL. Will increase basal by 20% today. * No change to bolus regimen required at this time. 10/03: * Post-prandial BSG's elevated on 10/01, but this was shortly after Lantus res umed. BSG at lunch yesterday also elevated, but no insulin adminsitered at breakfast and suspect uncovered PO intake. May consider tightening CHO ratio if lunch BSG again elevated today. * AM fasting BSG 146 mg/dL - continue same Lantus dose 10/01: * BSGs acceptable over the last 24 hrs * Fasting BSG 130-136 this AM with no basal insulin on board, however patient had been NPO for most of the day yesterday * Diet was advanced and pt reportedly tolerating well at this point * Will resume low dose Lantus at this time. * Plan to continue current Novolog CF + CR as they have performed well thus far PLAN FOR INPATIENT GLYCEMIC CONTROL: * Hold outpatient oral diabetes medications * Basal insulin * Lantus 6 units SC AM * Bolus insulin * NovoLog per scale ACHS or Q6hrs while NPO * Goal Range: Low 120 mg/dL - High 150 mg/dL * Correction Factor: 40 mg/dL/unit * Nutritional / Prandial insulin per carb ratio of 1 unit per 8 grams CHO consumed
[2022-10-06] MEDS ORDERED: hydrALAZINE HCL 25 MG TAB PO SCH (13:00)
--- NOTE | 2022-10-06 15:09 | Discharge Summary ---
Date of Service October 06, 2022 Principal Diagnosis ischemic colitis Discharge Exam General: A&Ox3. NAD. Cooperative. HEENT: Atraumatic, normocephalic. Vision and hearing grossly intact Pulm: CTAB A&P. -wheezes, -rales, -rhonchi. Symmetrical chest rise. No increased work of breathing. No respiratory distress. Cardiac: RRR, -mrg. Radial pulses intact and symmetrical. Abdominal: Nontender, nondistended, soft. BS present. Extremities: 1+ pitting edema in the right ankle, 2+ left ankle. Right ankle is chronically tender to palpation due to history of traumatic injury with plate in place. Discharge Data Allergies Allergy/AdvReac Type Severity Reaction Status Date / Time fenofibrate AdvReac Intermediate INCREASED Verified 09/20/22 09:43 URINATION metoprolol AdvReac Intermediate VOMIT,DIARR Verified 09/20/22 09:43 HEA valsartan AdvReac Intermediate Weakness Verified 09/20/22 09:43 verapamil AdvReac Intermediate INCREASED Verified 09/20/22 09:43 URINATION Consultations 09/20/22 10:46 ED Decision to Admit Stat 09/20/22 13:00 Consult General Surgery Stat 09/23/22 14:51 Consult Nephrology Routine 09/30/22 07:00 Consult Vascular Surgery Routine 09/30/22 07:01 Consult Gastroenterology Routine 09/30/22 07:13 Consult General Surgery Routine 10/04/22 08:40 Consult Nephrology Routine Ordered Studies 09/20/22 11:00 CT Abd and Pelvis [CT abd pelvis IV con only] Stat 09/23/22 19:45 CT abd pelvis wo con Stat 09/28/22 21:38 CT Abd and Pelvis [CT abd pelvis wo con] Stat 09/30/22 11:05 US Mesentary Doppler [US duplex mesenteric] Urgent 10/03/22 15:22 US venous doppler LE LT Urgent Hospital Course (1) Ischemic colitis: Ischemic colitis, acute on chronic, high risk, improving CT abd/pelvis 09/28/22 colitis, most severe the cecum and right-sided colon. Cannot exclude inflammatory neoplasm. Recommend follow-up with colonoscopy following treatment and resolution of symptoms. Continued on Zosyn since 09/29/2022 Received Venofer, 2 units of PRBC 09/29, hemoglobin rise to 8.3 subsequently and remained stable/uptrending Prior hospitalist discussed with vascular surgery, conversation is below "degree of calcification near SMA and aorta exceeds his ability to do any procedures here. He recommended I call [facility] which I spoke to Dr. Sims. Dr. Sims feels that the patient may need surgery in the future but without mesenteric anginal symptoms or ischemic symptoms at this time emergent surgery is not necessitated requested a mesenteric Doppler study which does not show severe superior mesenteric artery stenosis. Thus will likely coordinate outpatient treatment if need be. I also spoke with a [place] general surgeon to discuss the fact of possibly with the patient benefit from a hem icolectomy given the persistent ischemic appearance he however said once again that that would be a surgery of last resort if she does have bowel infarction." Patient is tolerating advancement of diet, no hematochezia, hemoglobin stable, and patient is increasingly feeling well. From a ischemic colitis standpoint doing well and improving. Added amlodipine, consulted nephro. Recommended restarting his medications. Hemoglobin is stable. Blood pressure is improving as hydrlazine has been slowly tapered up. Will discharge on 50 mg PO TID, this will likely need to be increased at outpatient followup. PAtient will need followup with [facility] Dr. Sims. (2) Urinary retention: acute self limited, Castañeda catheter placed in ER due to PVR 400ml. With LEV, gradually improving LEV nearly completely resolved today, in the setting of hypertension with near normal creatinine we will restart Entresto, follow renal function in the morning, and then serially restart spironolactone if continuing to do well (3) Acute respiratory failure with hypoxia: Acute resolvedsuspect due to mild congestive pulmonary edema seen on CXR. secondary to HFpEF Diuretics resumed on 10/01 continue to follow hypoxemia may benefit from two-step prior to discharge as of small pleural effusions which are likely related to nutritional deficiencies given some n.p.o. status during her hospital stay Legs are with increased edema, continue Lasix 10/03. Edema is asymmetrical which is unusual for patient and has been off blood thinners. Will obtain Doppler to eval for DVT, if negative continue diuresis (4) (HFpEF) heart failure with preserved ejection fraction: Acute on chronic, contributed to by Paroxysmal Afib, Chronic stable rate Control with coreg History of TAVR January 2022 Entresto resumed, spironolactone pending renal function stability (5) Paroxysmal atrial fibrillation: Not on anticoagulation due to GI bleeds in the past and now maintaining sinus rhythm with amiodarone. (6) Type 2 diabetes mellitus with diabetic neuropathy, unspecified: chronic stable Hold home glimepiride, on insulin ssi with variable diet (7) HTN (hypertension): Acute on chronic, requiring IV hydralazine for acute control In the setting of home antihypertensives held for LEV, LEV is resolving as noted. Entresto resumed, spironolactone pending renal function as noted. Hydralazine every 4 hours as needed as needed for BP greater than 180 Total Time Total Time Spent Total Time Spent (In Minutes): 32 Discharge Plan Discharge Items Patient Disposition: Home - Home Health Services Reason For Visit: LEV, URINARY RETENTION, HFPEF Discharge Diagnosis: acute kidney injury/ ischemic colitis Activity: Resume your previous activity Non-emergency contact: Primary Care Provider Call non-emergency contact if: you have any medication questions Follow-up/Referrals: Tiara Ochoa PA-C [Primary Care Provider] - (Patient will make primary care follow up ) Diet: Carb Consistent or DM2 and Low Fiber Fluids: 1800ml (7 cups) Addtl Attending Provider Instructions: We will help get a follow-up appointment with Dr. Johnson at [facility] vascular surgery. We will slowly increase your hydralazine back to your regular dose. We will have you on 50 mg by mouth 3 times a day. Will recommend followup with PCP this week. Antibiotics will be stopped as this was given when you were actively sick with the abdominal pain to prevent an infection. At this point, given your recovery, we can stop antibiotics as there is not much benefit currently. And you could get c diff colitis, if antibiotics are continued. Now in the case that your symptoms worsen, where you again develop the same pr oblem, then we would consider resuming antibiotics. Please return to the hospital if you develop worsening abdominal pain, fever, if you notice a large amount of blood in your stool, if you feel more fatigued, or if you appear more pale. Your A!C is 6.2 For now will recommend holding metformin in case this could exacerbate your symptoms. Please continue your glimepiride Pending Studies at Discharge: No Stand-Alone Forms: My [employer], Smoking Cessation Medications and DC Order Prescriptions: Continued coenzyme Q10 [CoQ-10] 100 mg Capsule 100 mg PO QAM [place] 3-6-9 1,200 mg Capsule 1 cap PO QDD amiodarone 200 mg tablet 200 mg PO QAM pantoprazole 40 mg tablet,delayed release (DR/EC) 40 mg PO BID glimepiride 4 mg tablet 4 mg PO BID furosemide 40 mg Tablet 40 mg PO QAM Qty: 30 0RF carvedilol 6.25 mg Tablet 6.25 mg PO BID Qty: 60 0RF magnesium oxide 400 mg (241.3 mg magnesium) tablet 400 mg PO BID Qty: 60 0RF Rx Instructions: OTC spironolactone 25 mg tablet 25 mg PO QAM Entresto 24-26 mg tablet 1 tab PO BID multivitamin Tablet 1 tab PO QAM atorvastatin 40 mg Tablet 40 mg PO QAM amlodipine 10 mg tablet 10 mg PO BID Changed hydralazine 100 mg tablet 50 mg PO TID Qty: 30 0RF Discontinued aspirin 81 mg Tablet,Delayed Release (Dr/Ec) 81 mg PO HS metformin 500 mg tablet extended release 24 hr 1,000 mg PO BIDM ferrous sulfate 325 mg (65 mg iron) tablet 325 mg PO BID Qty: 60 0RF clopidogrel 75 mg Tablet 75 mg PO QAM Qty: 30 0RF Discharge Orders: Discharge Order (Routine); Ordered 10/06/22 Ordered By: Barry Schaefer/Other Patient Handouts: Low-Fiber Diet Admission Data Admit Date/Time: 09/20/22 11:48 Attending Provider: Barry De Luna Admit Provider: Vlad Thompson Primary Care Provider: Tiara Ochoa Other Providers: Vlad Thompson ; Kylie Zhu Kevin C. ; Khai Cash ; Robyn Kirkland Jr ; Maddison Soares ; Gurwinder Casiano ; Daron Morin ; [facility] Other Interventions: Discharge Summary Assessment (RN) Last Done: 10/06/22 13:17 Coding Level of Care Code 00286 INP/OBS DISCH >30 MIN Diagnoses Ischemic colitis K55.9 Urinary retention R33.9 Acute respiratory failure with hypoxia J96.01 (HFpEF) heart failure with preserved ejection fraction I50.30 Paroxysmal atrial fibrillation I48.0 Type 2 diabetes mellitus with diabetic neuropathy, unspecified E11.40 HTN (hypertension) I10
== END 2022-10-06 14:38 | disposition home health service (06) | DRG 291 ==
LOC: ED 06:57 → SUATTDRO 11:48 → 2E 11:48
DX: D62 Acute posthemorrhagic anemia; I73.9 Peripheral vascular disease, unspecified; K55.069 Acute infarction of intestine, part and extent unspecified; Z95.5 Presence of coronary angioplasty implant and graft; K62.5 Hemorrhage of anus and rectum; E87.1 Hypo-osmolality and hyponatremia; Z87.891 Personal history of nicotine dependence; Z79.84 Long term (current) use of oral hypoglycemic drugs; R77.8 Other specified abnormalities of plasma proteins; Z86.73 Personal history of transient ischemic attack (TIA), and cerebral infarction without residual deficits; I48.0 Paroxysmal atrial fibrillation; I25.2 Old myocardial infarction; Z79.82 Long term (current) use of aspirin; Z88.8 Allergy status to other drugs, medicaments and biological substances; N18.4 Chronic kidney disease, stage 4 (severe); E11.40 Type 2 diabetes mellitus with diabetic neuropathy, unspecified; N17.0 Acute kidney failure with tubular necrosis; I50.33 Acute on chronic diastolic (congestive) heart failure; K55.1 Chronic vascular disorders of intestine; E11.22 Type 2 diabetes mellitus with diabetic chronic kidney disease; I13.0 Hypertensive heart and chronic kidney disease with heart failure and stage 1 through stage 4 chronic kidney disease, or unspecified chronic kidney disease; I74.19 Embolism and thrombosis of other parts of aorta; I25.10 Atherosclerotic heart disease of native coronary artery without angina pectoris; R33.9 Retention of urine, unspecified; J96.01 Acute respiratory failure with hypoxia; K55.039 Acute (reversible) ischemia of large intestine, extent unspecified

== ENCOUNTER 2022-11-01 16:02 | Inpatient (IN) ==
[2022-11-01 17:14] LABS: Anion Gap 8 (3-11); BUN Creatinine Ratio 23.6 (10-20); Blood Urea Nitrogen 41 mg/dl (6-23); Calcium 8.9 mg/dl (8.6-10.3); Carbon Dioxide 23 mmol/L (21-32); Chloride 107 mmol/L (98-107); Est GFR (African American) 31.5 ml/min; Est GFR (Non-African American) 27.2 ml/min; Glucose 128 mg/dl (70-99(Fasting)); Potassium 4.7 mmol/L (3.5-5.1); Sodium 138 mmol/L (136-145)
[2022-11-01 17:17] LABS: Hemoglobin 6.1 g/dl (12.0-16.0); Mean Corpuscular Hemoglobin 27.4 pg (25.0-34.0); Mean Corpuscular Hgb Conc 30.5 g/dL (32.0-36.0); Mean Corpuscular Volume 89.7 fL (80.0-100.0); Mean Platelet Volume 11.1 fL (9.4-12.4); Platelet Count 300 K/uL (130-400); RDW Coefficient of Variation 17.6 % (11.5-14.5); RDW Standard Deviation 57.6 fL (36.4-46.3); Red Blood Count 2.23 M/uL (4.20-5.40); White Blood Count 5.71 K/ul (4.8-10.8)
[2022-11-01] MEDS ORDERED: SODIUM CHLORIDE 0.9% 250 ML IV PRN ×2 (17:21→23:55)
[2022-11-01 17:29] LABS: INR 1.1 (0.9-1.1); Partial Thromboplastin Ratio 0.9; Partial Thromboplastin Time 24.7 Seconds (21.0-31.0); Prothrombin Time 11.9 Seconds (9.0-12.0)
[2022-11-01 17:33] LABS: Anisocytosis Present; Basophils # (auto) 0.03 K/uL (0-0.2); Basophils % (auto) 0.5 %; Eosinophils # (auto) 0.14 K/uL (0-0.50); Eosinophils % (auto) 2.5 %; Immature Granulocytes # (auto) 0.02 K/uL (0.01-0.20); Immature Granulocytes % (auto) 0.4 %; Lymphocytes # (auto) 1.65 K/uL (1.2-3.4); Lymphocytes % (auto) 28.9 %; Monocytes # (auto) 0.58 K/uL (0.11-0.59); Monocytes % (auto) 10.2 %; Neutrophils # (auto) 3.29 K/uL (1.40-6.50); Neutrophils % (auto) 57.5 %; Polychromasia 1+
[2022-11-01] MEDS ORDERED: OPTIRAY 320 100ml IV ONE (19:30)
--- NOTE | 2022-11-01 20:06 | History & Physical Report ---
Date of Service November 01, 2022 Assessment & Plan (1) Acute GI bleeding: Plan: Bright red blood in stool therefore not placed on PPI Hold Plavix CT A/P ordered given recent history of ischemic colitis although no pain on exam - concerning for colonic mass, CEA ordered, consult GI to consider colonoscopy (2) Acute blood loss anemia: Plan: Hgb 6.1 from 8.3 Transfuse 2 units packed RBCs, CBC 2 hours following this Aim Hgb > 8 in the setting of ongoing blood loss (3) Abnormal CT of the abdomen: Plan: Concerning for colon cancer, discussed with patient and her daughter. CEA added to labs Consult gastroenterology NPO after midnight (4) DM (diabetes mellitus): Plan: Hemoglobin A1C 6.2 in August, no need to repeat Hold glimepiride Lantus 0-5 units BID with glucose 120 as cut off Novolog: --Goal BSG Range: Low 110 mg/dL, High 140 mg/dL --Correction Factor: 45 mg/dL/unit --Carbohydrate ratio = 15 g/unit --BSGs ACHS if eating, q6h if npo Pharmacy consulted for ongoing changes (5) CAD (coronary artery disease): Plan: Plavix on hold Continue carvedilol, Entresto and atorvastatin (6) S/P TAVR (transcatheter aortic valve replacement): (7) (HFpEF) heart failure with preserved ejection fraction: Plan: Euvolemic - monitor for worsening shortness of breath with blood transfusions (8) PAD (peripheral artery disease): Plan: Currently no acute concerns regarding this s/p 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 Plan VTE Prophylaxis - chemical contraindicated Diet - T2DM, NPO @ midnight Disposition - admit to med/tele Admission and Anticipated Discharge Date Admission Date: November 01, 2022 History of Present Illness Chief Complaint: Hematochezia Primary Care Provider: Tiara Ochoa PA-C Adri Gould is an 82 year old female with extensive history of cardi ovascular disease who presents to the ER with 2 days of bright red blood in stool. She denies any abdominal pain, nausea or vomiting. She was recently admitted to [facility] September 20 - October 06, 2022 due to ischemic colitis and congestive heart failure. This was treated conservatively and recommended to follow up with vascular surgery at [facility]. She denies any abdominal pain since discharge. During that hospitalization she did have a lower GI bleed and was transfused 2 units of packed RBCs however this was while on a heparin drip. She is currently on Plavix alone. She denies any chest pain, shortness of breath or dizziness from the anemia. Allergies Allergy/AdvReac Type Severity Reaction Status Date / Time fenofibrate AdvReac Intermediate INCREASED Verified 11/01/22 20:39 URINATION metoprolol AdvReac Intermediate VOMIT,DIARR Verified 11/01/22 20:39 HEA valsartan AdvReac Intermediate Weakness Verified 11/01/22 20:39 verapamil AdvReac Intermediate INCREASED Verified 11/01/22 20:39 URINATION Home Medications Medication Instructions Recorded Confirmed Type fish, borage, flaxseed oils-omega 1 cap PO QDD 12/01/20 11/01/22 History 3,6,9 comb no.1 1,200 mg capsule ([place] 3-6-9) atorvastatin 40 mg tablet 40 mg PO QAM 02/26/21 11/01/22 History multivitamin 1 tab PO QAM 02/26/21 11/01/22 History amiodarone 200 mg tablet 200 mg PO QAM 07/01/21 11/01/22 History pantoprazole 40 mg tablet,delayed 40 mg PO BID 07/01/21 11/01/22 History release glimepiride 4 mg tablet 4 mg PO BID 12/21/21 11/01/22 History carvedilol 6.25 mg tablet 6.25 mg PO BID #60 tabs 12/27/21 11/01/22 Rx furosemide 40 mg tablet 40 mg PO QAM #30 tabs 12/27/21 11/01/22 Rx magnesium oxide 400 mg (241.3 mg 400 mg PO BID #60 tabs 12/27/21 11/01/22 Rx magnesium) tablet amlodipine 10 mg tablet 10 mg PO BID 06/20/22 11/01/22 History sacubitril 24 mg-valsartan 26 mg 1 tab PO BID 09/20/22 11/01/22 History tablet (Entresto) spironolactone 25 mg tablet 25 mg PO QAM 09/20/22 11/01/22 History hydralazine 100 mg tablet 50 mg PO TID #30 tabs 10/06/22 11/01/22 Rx clopidogrel 75 mg tablet 75 mg PO DAILY 11/01/22 11/01/22 History Past Med/Surg History Medical History Acute non-ST elevation myocardial infarction (NSTEMI) Acute on chronic heart failure with preserved ejection fraction (HFpEF) LEV (acute kidney injury) Anemia Bradycardia CAD (coronary artery disease) CVA (cerebral vascular accident) (~2019) no deficits Elevated troponin Hyperkalemia Hyperlipemia Hyponatremia Hypoxia Myocardial infarct, old follows with Dr. Mcpherson Occlusion of right iliac artery PAD (peripheral artery disease) Pneumonia hx S/P angiogram of extremity (02/02/21) Type 2 diabetes mellitus with diabetic neuropathy, unspecified NIDDM Surgical History H/O removal of cyst right abdominal area History of bunionectomy of right great toe History of cardiac cath (~2018) History of heart artery stent (~2018) x1. at [facility]. Status post ORIF of fracture of ankle Family History Other No family history of adverse response to anesthesia Social History Smoking Status: Former smoker Tobacco Type: Cigarettes Cigarettes Per Day: 1 Pack; Second Hand Exposure: Yes; Do You Dip or Chew Tobacco: No; Hx Alcohol Use: Yes Alcohol type: other Hx Substance Use: No Preferred Language: Tanzanian Communication Ability: Effective Communication Ability Comment: difficulty comprehending at times - Mamie hagen is typically her caregiver Audio Visual Aide Required: No Beliefs That Will Affect Care: None marital status: / Current Living Situation: Family Current Living Situation Comment: currently moving in with daughter current occupational status: retired How many Children do You have: 1 Feels Safe at Home: Yes Assistive Devices: None Review of Systems Review of Systems: All systems reviewed & are unremarkable except as noted in HPI & below Physical Exam Constitutional: WD/WN, vitals as above Respiratory: normal respiratory effort, lungs clear to auscultation Cardiovascular: Rate/Rhythm: regular rate and regular rhythm Extremities: normal capillary refill and + pedal edema; no calf tenderness Gastrointestinal (Abdomen): normal bowel sounds, soft, nontender, no hepatosplenomegaly Musculoskeletal: no cyanosis or clubbing, extremities motor strength 5/5 Skin: no rashes, warm and dry Neurologic: moves all extremities and awake; not confused Psychiatric: A+Ox3, euthymic affect Results & Data Results & Data Vital Signs (Past 12 Hours) Vital Signs Temp Pulse Pulse Resp BP BP Pulse Ox 11/01/22 19:34 62 20 146/61 H 11/01/22 19:14 64 23 163/51 H 11/01/22 19:14 163/51 H 11/01/22 19:00 62 21 181/65 H 11/01/22 19:20 36.7 C 60 18 163/51 H 98 11/01/22 18:50 36.8 C 60 18 163/51 H 96 11/01/22 18:31 59 L 20 149/47 H 98 11/01/22 18:35 37.1 C 59 L 22 147/49 H 98 11/01/22 18:30 37.1 C 58 L 22 149/47 H 97 11/01/22 18:20 37.1 C 59 L 21 148/54 H 97 11/01/22 18:00 58 L 16 158/52 H 97 11/01/22 17:22 87 L 11/01/22 16:44 58 L 11/01/22 16:40 58 L 16 98 11/01/22 16:12 36.5 C 58 L 20 143/49 H 95 O2 Del Method O2 Flow Rate 11/01/22 19:34 11/01/22 19:14 11/01/22 19:14 11/01/22 19:00 11/01/22 19:20 3 11/01/22 18:50 11/01/22 18:31 11/01/22 18:35 3 11/01/22 18:30 3 11/01/22 18:20 3 11/01/22 18:00 Nasal Cannula 3 11/01/22 17:22 Room Air 11/01/22 16:44 11/01/22 16:40 Room Air 11/01/22 16:12 Room Air Laboratory Results Abnormal lab results 11/01/22 11/01/22 11/01/22 Range/Units 16:40 16:40 16:40 RBC 2.23 L (4.20-5.40) M/uL Hgb 6.1 L* (12.0-16.0) g/dl Hct 20.0 L* (37.0-47.0) % MCHC 30.5 L (32.0-36.0) g/dL RDW Std Deviation 57.6 H (36.4-46.3) fL RDW Coeff of Alysa 17.6 H (11.5-14.5) % BUN 41 H (6-23) mg/dl Creatinine 1.74 H (0.6-1.2) mg/dl BUN/Creatinine Ratio 23.6 H (10-20) Glucose 128 H (70-99(Fasting)) mg/dl Crossmatch See Detail Medications Administered ER Medications Given: 2 units packed RBCs ECG Rate (beats per minute): 58 Rhythm: junctional Findings: + nonspecific-ST abn and + PVC Comparison ECG Date: from (September 22, 2022) Change: the following changes noted (Junctional replaced sinus rhythm) Code Status & VTE Plan Code Status Full VTE Prophylaxis Plan VTE Prophylaxis will be ordered: No PG Care Time/CCT Total # of Minutes Spent Total Time Spent with Patient: Total time spent is greater than 50% in coordination of care (as documented) at patient's floor/unit and/or counseling patient: Coding Level of Care Code 61778 INT INP/OBS CARE 3/75MIN Diagnoses Acute GI bleeding K92.2 Acute blood loss anemia D62 Abnormal CT of the abdomen R93.5 DM (diabetes mellitus) E11.9 CAD (coronary artery disease) I25.10 S/P TAVR (transcatheter aortic valve replacement) Z95.2 (HFpEF) heart failure with preserved ejection fraction I50.30 PAD (peripheral artery disease) I73.9
--- NOTE | 2022-11-01 20:31 | CT Scan Report ---
Exam(s): CT ABDOMEN + PELVIS With Contrast IV Amt: 87ml optiray 320 EXAM: CT Abdomen and Pelvis With Intravenous Contrast CLINICAL HISTORY: Reason for exam: hematochezia, prior ichemic colitis ?mass. TECHNIQUE: Axial computed tomography images of the abdomen and pelvis with intravenous contrast. CTDI is 22.04 mGy and DLP is 1038.88 mGy-cm. Automated exposure control was utilized for the study. A dose lowering technique was utilized adhering to the principles of ALARA. CONTRAST: Patient received 87ml optiray 320 of IV contrast COMPARISON: 09/28/22 FINDINGS: Patient is status post aortic valve replacement. Coronary arteries are calcified. There are small right and trace left pleural effusions. There is gallbladder sludge and/or tiny stones without evidence of acute cholecystitis or biliary dilatation. Liver, spleen, adrenal glands, and pancreas are unremarkable. Kidneys enhance symmetrically. There is no hydronephrosis. Subcentimeter cortical hypodensity left kidney upper pole is favored to represent a cyst but is too small to characterize. There is heavy calcification of the abdominal aorta with apparent moderate stenosis of the suprarenal aorta (series 2, image 25). There is no free air or significant free fluid. There is an 8 cm long segment of wall thickening and luminal narrowing in the cecum. Small lymph nodes are noted in the adjacent mesentery. There is no mechanical bowel obstruction. Appendix is not clearly visualized. Uterus and urinary bladder are unremarkable. There is a patent femorofemoral bypass graft. There are degenerative changes of the spine. There are no acute osseous findings. IMPRESSION: 1. There is an 8 cm long segment of circumferential wall thickening and luminal narrowing in the cecum. Findings raise concern for colon cancer. Small lymph nodes are noted in the adjacent mesentery. An infectious/inflammatory colitis is a differential consideration but considered less likely. Correlation with colonoscopy is recommended following resolution of acute phase. 2. Bulky calcific plaque in the suprarenal abdominal aorta appearing to produce a moderate stenosis. Electronically signed by: Corina Luciano M.D. 11/01/22 20:30 PM
--- NOTE | 2022-11-01 21:55 | Emergency Department Note ---
History of Present Illness General Chief complaint: Bleeding Stated complaint: HEMAGLOBIN LEVELS LOW, REF BY DOC, BLEEDING RECTAL Time Seen by Provider: 11/01/22 16:14 Source: patient and family (Daughter) History of Present Illness Provider Complaint: + gross hematochezia Onset (ago): 3 day(s) Maximum Pain Intensity: 0 Context: + history of GI bleed and + anticoagulant use (Patient on Plavix); no rectal trauma, no alcohol abuse or no frequent NSAID use Associated symptoms: no abdominal pain, no nausea, no vomiting or no fever Home Medications Medication Instructions Recorded Confirmed Type fish, borage, flaxseed oils-omega 1 cap PO QDD 12/01/20 11/01/22 History 3,6,9 comb no.1 1,200 mg capsule ([place] 3-6-9) atorvastatin 40 mg tablet 40 mg PO QAM 02/26/21 11/01/22 History multivitamin 1 tab PO QAM 02/26/21 11/01/22 History amiodarone 200 mg tablet 200 mg PO QAM 07/01/21 11/01/22 History pantoprazole 40 mg tablet,delayed 40 mg PO BID 07/01/21 11/01/22 History release glimepiride 4 mg tablet 4 mg PO BID 12/21/21 11/01/22 History carvedilol 6.25 mg tablet 6.25 mg PO BID #60 tabs 12/27/21 11/01/22 Rx furosemide 40 mg tablet 40 mg PO QAM #30 tabs 12/27/21 11/01/22 Rx magnesium oxide 400 mg (241.3 mg 400 mg PO BID #60 tabs 12/27/21 11/01/22 Rx magnesium) tablet amlodipine 10 mg tablet 10 mg PO BID 06/20/22 11/01/22 History sacubitril 24 mg-valsartan 26 mg 1 tab PO BID 09/20/22 11/01/22 History tablet (Entresto) spironolactone 25 mg tablet 25 mg PO QAM 09/20/22 11/01/22 History hydralazine 100 mg tablet 50 mg PO TID #30 tabs 10/06/22 11/01/22 Rx clopidogrel 75 mg tablet 75 mg PO DAILY 11/01/22 11/01/22 History Allergies Allergy/AdvReac Type Severity Reaction Status Date / Time fenofibrate AdvReac Intermediate INCREASED Verified 11/01/22 20:39 URINATION metoprolol AdvReac Intermediate VOMIT,DIARR Verified 11/01/22 20:39 HEA valsartan AdvReac Intermediate Weakness Verified 11/01/22 20:39 verapamil AdvReac Intermediate INCREASED Verified 11/01/22 20:39 URINATION Past Med/Surg History Medical History Acute non-ST elevation myocardial infarction (NSTEMI) Acute on chronic heart failure with preserved ejection fraction (HFpEF) LEV (acute kidney injury) Anemia Bradycardia CAD (coronary artery disease) CVA (cerebral vascular accident) (~2019) no deficits Elevated troponin Hyperkalemia Hyperlipemia Hyponatremia Hypoxia Myocardial infarct, old follows with Dr. Mcpherson Occlusion of right iliac artery PAD (peripheral artery disease) Pneumonia hx S/P angiogram of extremity (02/02/21) Type 2 diabetes mellitus with diabetic neuropathy, unspecified NIDDM Surgical History H/O removal of cyst right abdominal area History of bunionectomy of right great toe History of cardiac cath (~2018) History of heart artery stent (~2019) x1. at [facility]. Status post ORIF of fracture of ankle Family History Other No family history of adverse response to anesthesia Social History Smoking Status: Former smoker Tobacco Type: Cigarettes Second Hand Exposure: No; Do You Dip or Chew Tobacco: No; Hx Alcohol Use: No Hx Substance Use: No Preferred Language: Croatian Communication Ability: Effective Communication Ability Comment: difficulty comprehending at times - dtr, Mamie is typically her caregiver Cook Larder Required: No Beliefs That Will Affect Care: None marital status: / Current Living Situation: Family Current Living Situation Comment: currently moving in with daughter current occupational status: retired How many Children do You have: 1 Feels Safe at Home: Yes Assistive Devices: None Physical Exam Vital Signs: Vital Signs - 24 hr 11/01/22 16:12 11/01/22 16:40 11/01/22 16:44 Temperature 36.5 C Temperature Source Oral Pulse Rate 58 L 58 L 58 L Pulse Rate [Left F geoff] Pulse Rate from Sp O2 Sensor Pulse Rhythm Regular Pulse Strength Respiratory Rate 20 16 Respiratory Effort / Characteristics Non-Labored Respiratory Depth Normal Blood Pressure 143/49 H Blood Pressure [Le ft Arm] Blood Pressure Ruby n 80 Blood Pressure Ruby n [Left Arm] Blood Pressure Pos ition [Left Arm] Pulse Oximetry 95 98 Oxygen Delivery Me thod Room Air Room Air Oxygen Flow Rate Sepsis Recent Feve r Within 48 Hours No Sepsis New/Unexpla ined Change in Men jayashree Status N/A Sepsis Action Take n by Nursing No Action Required Oxygen Flow Rate - Titration Pulse Oximetry Pos t Tiitration 11/01/22 17:22 11/01/22 18:00 11/01/22 18:20 Temperature 37.1 C Temperature Source Oral Pulse Rate 59 L Pulse Rate [Left F geoff] 58 L Pulse Rate from Sp O2 Sensor Pulse Rhythm Pulse Strength Respiratory Rate 16 21 Respiratory Effort / Characteristics Respiratory Depth Blood Pressure 148/54 H Blood Pressure [Le ft Arm] 158/52 H Blood Pressure Ruby n 85 Blood Pressure Ruby n [Left Arm] 87 Blood Pressure Pos ition [Left Arm] Sitting Pulse Oximetry 87 L 97 97 Oxygen Delivery Me thod Room Air Nasal Cannula Oxygen Flow Rate 3 3 Sepsis Recent Feve r Within 48 Hours Sepsis New/Unexpla ined Change in Men jayashree Status Sepsis Action Take n by Nursing Oxygen Flow Rate - Titration 3 Pulse Oximetry Pos t Tiitration 94 11/01/22 18:30 11/01/22 18:35 11/01/22 18:31 Temperature 37.1 C 37.1 C Temperature Source Oral Oral Pulse Rate 58 L 59 L 59 L Pulse Rate [Left F geoff] Pulse Rate from Sp O2 Sensor 59 L Pulse Rhythm Regular Pulse Strength Normal Respiratory Rate 22 22 20 Respiratory Effort / Characteristics Respiratory Depth Blood Pressure 149/47 H 147/49 H 149/47 H Blood Pressure [Le ft Arm] Blood Pressure Ruby n 81 81 81 Blood Pressure Ruby n [Left Arm] Blood Pressure Pos ition [Left Arm] Pulse Oximetry 97 98 98 Oxygen Delivery Me thod Oxygen Flow Rate 3 3 Sepsis Recent Feve r Within 48 Hours Sepsis New/Unexpla ined Change in Men jayashree Status Sepsis Action Take n by Nursing Oxygen Flow Rate - Titration Pulse Oximetry Pos t Tiitration 06/02/23 18:50 11/01/22 19:20 11/01/22 19:00 Temperature 36.8 C 36.7 C Temperature Source Oral Oral Pulse Rate 60 60 62 Pulse Rate [Left F geoff] Pulse Rate from Sp O2 Sensor Pulse Rhythm Pulse Strength Respiratory Rate 18 18 21 Respiratory Effort / Characteristics Respiratory Depth Blood Pressure 163/51 H 163/51 H 181/65 H Blood Pressure [Le ft Arm] Blood Pressure Ruby n 88 88 103 Blood Pressure Ruby n [Left Arm] Blood Pressure Pos ition [Left Arm] Pulse Oximetry 96 98 Oxygen Delivery Me thod Oxygen Flow Rate 3 Sepsis Recent Feve r Within 48 Hours Sepsis New/Unexpla ined Change in Men jayashree Status Sepsis Action Take n by Nursing Oxygen Flow Rate - Titration Pulse Oximetry Pos t Tiitration 11/01/22 19:14 11/01/22 19:14 11/01/22 19:34 Temperature Temperature Source Pulse Rate 64 62 Pulse Rate [Left F geoff] Pulse Rate from Sp O2 Sensor Pulse Rhythm Pulse Strength Respiratory Rate 23 20 Respiratory Effort / Characteristics Respiratory Depth Blood Pressure 163/51 H 163/51 H 146/61 H Blood Pressure [Le ft Arm] Blood Pressure Ruby n 87 88 89 Blood Pressure Ruby n [Left Arm] Blood Pressure Pos ition [Left Arm] Pulse Oximetry Oxygen Delivery Me thod Oxygen Flow Rate Sepsis Recent Feve r Within 48 Hours Sepsis New/Unexpla ined Change in Men jayashree Status Sepsis Action Take n by Nursing Oxygen Flow Rate - Titration Pulse Oximetry Pos t Tiitration 11/01/22 20:20 11/01/22 20:48 11/01/22 20:50 Temperature 36.8 C 36.9 C Temperature Source Oral Oral Pulse Rate 61 58 L 64 Pulse Rate [Left F geoff] Pulse Rate from Sp O2 Sensor Pulse Rhythm Pulse Strength Respiratory Rate 16 19 Respiratory Effort / Characteristics Respiratory Depth Blood Pressure 182/59 H 164/50 H Blood Pressure [Le ft Arm] Blood Pressure Ruby n 100 88 Blood Pressure Ruby n [Left Arm] Blood Pressure Pos ition [Left Arm] Pulse Oximetry 98 97 Oxygen Delivery Me thod Oxygen Flow Rate 3 3 Sepsis Recent Feve r Within 48 Hours Sepsis New/Unexpla ined Change in Men jayashree Status Sepsis Action Take n by Nursing Oxygen Flow Rate - Titration Pulse Oximetry Pos t Tiitration 11/01/22 21:35 Temperature Temperature Source Pulse Rate 59 L Pulse Rate [Left F geoff] Pulse Rate from Sp O2 Sensor Pulse Rhythm Pulse Strength Respiratory Rate 18 Respiratory Effort / Characteristics Respiratory Depth Blood Pressure 158/44 H Blood Pressure [Le ft Arm] Blood Pressure Ruby n Blood Pressure Ruby n [Left Arm] Blood Pressure Pos ition [Left Arm] Pulse Oximetry 99 Oxygen Delivery Me thod Room Air Oxygen Flow Rate Sepsis Recent Feve r Within 48 Hours Sepsis New/Unexpla ined Change in Men jayashree Status Sepsis Action Take n by Nursing Oxygen Flow Rate - Titration Pulse Oximetry Pos t Tiitration Physical Exam: Physical Exam GENERAL: oriented to person, place, and time. appears well-developed and well- nourished. HENT: Exam performed. - Head: Normocephalic and atraumatic. EYES: Conjunctivae and EOM are normal. Right eye exhibits no discharge. Left eye exhibits no discharge. No scleral icterus. NECK: Normal range of motion. Neck supple. No JVD present. CV: Normal rate, regular rhythm, normal heart sounds and intact distal pulses. There is no peripheral edema. Palpable radial pulses bue. PULM/CHEST: Effort normal and breath sounds normal. No respiratory distress. No stridor. no wheezes. no rales. ABD: The abdomen is soft. There is no tenderness. Rectal: Performed with female nursing mortgage loan processor Suzanne at bedside. Bright red blood per rectum. NEURO: Motor and sensation grossly intact. SKIN: Skin is warm and dry. He is not diaphoretic. PSYCH: normal mood and affect. Behavior is normal. Judgment and thought content normal. Course Course 1614: The patient was evaluated in room B2. A complete history and physical exam was performed Cardiac monitoring: An order was placed for continuous cardiac monitoring. The monitor shows a rate of 60 with sinus rhythm interpreted by me 1755: Vital signs stable. Labs show hemoglobin of 6.1 which is down from 8.3 in September. Creatinine is 1.74 up from 1.22 in September 2022. Patient will be transfused packed red blood cells and [facility] team Dr. Thompson notified. Administered Medications Discontinued Medications Ioversol (Optiray 320 100ml) 87 ml IV ONCE ONE Stop: 11/01/22 19:31 Last Admin: 11/01/22 19:31 Dose: 87 ml Documented By: ARSALAN Medical Decision Making Laboratory Data Attestation: I reviewed the patient's lab results. 11/01/22 16:40 11/01/22 16:40 Lab Results 11/01/22 11/01/22 11/01/22 Range/Units 16:40 16:40 16:40 WBC 5.71 (4.8-10.8) K/ul RBC 2.23 L (4.20-5.40) M/uL Hgb 6.1 L* (12.0-16.0) g/dl Hct 20.0 L* (37.0-47.0) % MCV 89.7 (80.0-100.0) fL MCH 27.4 (25.0-34.0) pg MCHC 30.5 L (32.0-36.0) g/dL RDW Std Deviation 57.6 H (36.4-46.3) fL RDW Coeff of Alysa 17.6 H (11.5-14.5) % Plt Count 300 (130-400) K/uL MPV 11.1 (9.4-12.4) fL Immature Gran % (Auto) 0.4 % Neut % (Auto) 57.5 % Lymph % (Auto) 28.9 % Cottle % (Auto) 10.2 % Eos % (Auto) 2.5 % Baso % (Auto) 0.5 % Neut # (Auto) 3.29 (1.40-6.50) K/uL Lymph # (Auto) 1.65 (1.2-3.4) K/uL Cottle # (Auto) 0.58 (0.11-0.59) K/uL Eos # (Auto) 0.14 (0-0.50) K/uL Baso # (Auto) 0.03 (0-0.2) K/uL Immature Gran # (Auto) 0.02 (0.01-0.20) K/uL Polychromasia 1+ Anisocytosis Present PT 11.9 (9.0-12.0) Seconds INR 1.1 (0.9-1.1) APTT 24.7 (21.0-31.0) Seconds PTT Ratio 0.9 Sodium (136-145) mmol/L Potassium (3.5-5.1) mmol/L Chloride (98-107) mmol/L Carbon Dioxide (21-32) mmol/L Anion Gap (3-11) BUN (6-23) mg/dl Creatinine (0.6-1.2) mg/dl Est Cr Clr Drug Dosing Est GFR ( Amer) ml/min Est GFR (Non-Af Amer) ml/min BUN/Creatinine Ratio (10-20) Glucose (70-99(Fasting)) mg/dl Calcium (8.6-10.3) mg/dl Carcinoembryonic Ag (0-2.5) ng/ml SARS-CoV-2, RNA, NAAT (NEGATIVE) Blood Type B Positive Antibody Screen NEGATIVE Crossmatch See Detail 11/01/22 11/01/22 11/01/22 Range/Units 16:40 16:41 18:03 WBC (4.8-10.8) K/ul RBC (4.20-5.40) M/uL Hgb (12.0-16.0) g/dl Hct (37.0-47.0) % MCV (80.0-100.0) fL MCH (25.0-34.0) pg MCHC (32.0-36.0) g/dL RDW Std Deviation (36.4-46.3) fL RDW Coeff of Alysa (11.5-14.5) % Plt Count (130-400) K/uL MPV (9.4-12.4) fL Immature Gran % (Auto) % Neut % (Auto) % Lymph % (Auto) % Cottle % (Auto) % Eos % (Auto) % Baso % (Auto) % Neut # (Auto) (1.40-6.50) K/uL Lymph # (Auto) (1.2-3.4) K/uL Cottle # (Auto) (0.11-0.59) K/uL Eos # (Auto) (0-0.50) K/uL Baso # (Auto) (0-0.2) K/uL Immature Gran # (Auto) (0.01-0.20) K/uL Polychromasia Anisocytosis PT (9.0-12.0) Seconds INR (0.9-1.1) APTT (21.0-31.0) Seconds PTT Ratio Sodium 138 (136-145) mmol/L Potassium 4.7 (3.5-5.1) mmol/L Chloride 107 (98-107) mmol/L Carbon Dioxide 23 (21-32) mmol/L Anion Gap 8 (3-11) BUN 41 H (6-23) mg/dl Creatinine 1.74 H (0.6-1.2) mg/dl Est Cr Clr Drug Dosing Not Reportable Est GFR ( Amer) 31.5 ml/min Est GFR (Non-Af Amer) 27.2 ml/min BUN/Creatinine Ratio 23.6 H (10-20) Glucose 128 H (70-99(Fasting)) mg/dl Calcium 8.9 (8.6-10.3) mg/dl Carcinoembryonic Ag 2.6 H (0-2.5) ng/ml SARS-CoV-2, RNA, NAAT NEGATIVE (NEGATIVE) Blood Type Antibody Screen Crossmatch ECG Data Attestation: I personally reviewed and interpreted this ECG as follows: Rate (beats per minute): 58 Rhythm: other (junctional rhythm) Findings: no ST depression, no ST elevation or no prolonged QT [facility] Narrative 1614: The patient was evaluated in room B2. A complete history and physical exam was performed Cardiac monitoring: An order was placed for continuous cardiac monitoring. The monitor shows a rate of 60 with sinus rhythm interpreted by me 1755: Vital signs stable. Labs show hemoglobin of 6.1 which is down from 8.3 in September. Creatinine is 1.74 up from 1.22 in September 2022. Patient will be transfused packed red blood cells and admitted to the [facility] team Dr. Thompson notified. Impression & Plan Acute GI bleeding Critical Care Time Critical Care Time: Yes Total Critical Care Time: 43 I have personally spent greater than 43 minutes of critical care time in the direct management of this patient. This includes bedside care, interpretation of diagnostic studies, and testing, discussion with consultants, patient, and family members, and other required patient management activities. This 43 minutes is in excess of all separately billable procedures. Discharge Plan Visit Data Chief Complaint: Bleeding Stated Complaint: HEMAGLOBIN LEVELS LOW, REF BY DOC, BLEEDING RECTAL ED Provider: Manish Parks Discharge Problem: Acute GI bleeding Patient Disposition: Admitted As Inpatient Discharge Instructions Interventions: ED Discharge Assessment Last Done: 11/01/22 21:35 Forms Stand Alone Forms: [facility] Prescriptions Prescriptions: No Action [place] 3-6-9 1,200 mg Capsule 1 cap PO QDD amiodarone 200 mg tablet 200 mg PO QAM pantoprazole 40 mg tablet,delayed release (DR/EC) 40 mg PO BID glimepiride 4 mg tablet 4 mg PO BID furosemide 40 mg Tablet 40 mg PO QAM Qty: 30 0RF carvedilol 6.25 mg Tablet 6.25 mg PO BID Qty: 60 0RF magnesium oxide 400 mg (241.3 mg magnesium) tablet 400 mg PO BID Qty: 60 0RF Rx Instructions: OTC spironolactone 25 mg tablet 25 mg PO QAM Entresto 24-26 mg tablet 1 tab PO BID hydralazine 100 mg tablet 50 mg PO TID Qty: 30 0RF clopidogrel 75 mg tablet 75 mg PO DAILY multivitamin Tablet 1 tab PO QAM atorvastatin 40 mg Tablet 40 mg PO QAM amlodipine 10 mg tablet 10 mg PO BID Referrals Referrals: Tiara Ochoa PA-C [Primary Care Provider] -
[2022-11-01] MEDS ORDERED: CARBOHYDRATES FOR HYPOGLYCEMIA PO PRN (22:54)
[2022-11-01] MEDS ORDERED: GLUCOSE 40% GEL 15 GM TUBE PO PRN (22:54)
[2022-11-01] MEDS ORDERED: GLUCOSE 10 TAB/TUBE PO PRN (22:54)
[2022-11-01] MEDS ORDERED: DEXTROSE 50% 50 ML SYRINGE IV PRN (22:54)
[2022-11-01] MEDS ORDERED: GLUCAGON FOR INJ 1 MG VIAL SQ PRN (22:54)
[2022-11-01] MEDS ORDERED: PHARMACY GLYCEMIC MGMT CONSULT PRN (22:54)
[2022-11-01] MEDS: INSULIN ASPART PER UNIT CHARGE SC SCH (23:29)
[2022-11-01] MEDS: amLODIPine BESYLATE 5 MG TAB PO SCH (23:30)
[2022-11-01] MEDS: carvediloL 6.25 MG TAB PO SCH (23:31)
[2022-11-01] MEDS: hydrALAZINE TAB 50 MG TAB PO SCH (23:31)
[2022-11-01] MEDS: PANTOprazole 40 MG TAB PO SCH (23:32)
[2022-11-01] MEDS: VALSARTAN/SACUBITRIL 26/24MG TAB PO SCH (23:32)
[2022-11-02] MEDS ORDERED: BENZONATATE 100 MG CAPSULE PO ONE (02:03)
[2022-11-02] MEDS: COUGH DROP (SUGAR FREE) LOZ 24 LOZ/1 BOX BUCCAL PRN ×2 (04:08→19:34)
[2022-11-02] MEDS: INSULIN ASPART PER UNIT CHARGE SC SCH ×4 (06:08→20:17)
--- NOTE | 2022-11-02 06:46 | Electrocardiogram Report ---
Test Reason : Blood Pressure : / mmHG Vent. Rate : 058 BPM Atrial Rate : 000 BPM P-R Int : 000 ms QRS Dur : 082 ms QT Int : 430 ms P-R-T Axes : 000 008 -13 degrees QTc Int : 422 ms sinus rhythm with occasional Premature ventricular complexes Nonspecific ST and T wave abnormality Abnormal ECG When compared with ECG of 22-SEP-2022 17:21, Junctional rhythm has replaced Sinus rhythm Questionable change in QRS axis Nonspecific T wave abnormality now evident in Anterolateral leads Confirmed by Dillon Otero ([id number]) on 11/02/2022 6:45:52 AM Referred By: Prem Mcpherson Confirmed By:Renato Otero
[2022-11-02 07:22] LABS: Basophils # (auto) 0.04 K/uL (0-0.2); Basophils % (auto) 0.5 %; Eosinophils # (auto) 0.27 K/uL (0-0.50); Eosinophils % (auto) 3.6 %; Hematocrit (blood only) 25.5 % (37.0-47.0); Hemoglobin 8.2 g/dl (12.0-16.0); Immature Granulocytes # (auto) 0.03 K/uL (0.01-0.20); Immature Granulocytes % (auto) 0.4 %; Lymphocytes # (auto) 1.62 K/uL (1.2-3.4); Lymphocytes % (auto) 21.7 %; Mean Corpuscular Hemoglobin 27.7 pg (25.0-34.0); Mean Corpuscular Hgb Conc 32.2 g/dL (32.0-36.0); Mean Corpuscular Volume 86.1 fL (80.0-100.0); Mean Platelet Volume 11.6 fL (9.4-12.4); Monocytes # (auto) 0.65 K/uL (0.11-0.59); Monocytes % (auto) 8.7 %; Neutrophils # (auto) 4.87 K/uL (1.40-6.50); Neutrophils % (auto) 65.1 %; Platelet Count 272 K/uL (130-400); RDW Standard Deviation 55.7 fL (36.4-46.3); Red Blood Count 2.96 M/uL (4.20-5.40); White Blood Count 7.48 K/ul (4.8-10.8)
[2022-11-02 07:36] LABS: Albumin Globulin Ratio 1.3 (0.9-2); Albumin Level 3.5 gm/dl (3.4-5.0); BUN Creatinine Ratio 23.5 (10-20); Bilirubin,Total 1.1 mg/dl (0.2-1.0); Calcium 8.9 mg/dl (8.6-10.3); Creatinine Clr Calc Pharmacy 26.3 ml/min; Est GFR (African American) 36.8 ml/min; Est GFR (Non-African American) 31.8 ml/min; Globulin 2.6 gm/dl (2.5-4.0); Potassium 4.4 mmol/L (3.5-5.1); Total Protein 6.1 gm/dl (6.0-8.3)
[2022-11-02] MEDS ORDERED: BENZONATATE 100 MG CAPSULE PO SCH (09:00)
[2022-11-02] MEDS ORDERED: FUROSEMIDE 40 MG TAB PO SCH ×2 (09:00→17:00)
[2022-11-02] MEDS ORDERED: LANTUS PER UNIT CHARGE SQ SCH (09:00)
[2022-11-02] MEDS: VALSARTAN/SACUBITRIL 26/24MG TAB PO SCH ×2 (09:08→20:22)
[2022-11-02] MEDS: ATORVASTATIN 40 MG TAB PO SCH (09:10)
[2022-11-02] MEDS: AMIODARONE 200 MG TAB PO SCH (09:10)
[2022-11-02] MEDS: carvediloL 6.25 MG TAB PO SCH ×2 (09:11→20:20)
[2022-11-02] MEDS: amLODIPine BESYLATE 5 MG TAB PO SCH ×2 (09:11→20:20)
[2022-11-02] MEDS: SPIRONOLACTONE 25 MG TAB PO SCH (09:11)
[2022-11-02] MEDS: hydrALAZINE TAB 50 MG TAB PO SCH ×3 (09:11→20:21)
[2022-11-02] MEDS: PANTOprazole 40 MG TAB PO SCH ×2 (10:01→20:22)
--- NOTE | 2022-11-02 10:06 | Gastrointestinal Consultation ---
Date of Consultation November 02, 2022 Assessment & Plan (1) Abnormal CT of the abdomen: I don't think this is a colon malignancy as she had a colonoscopy in October of 2021 with removal of a small sigmoid polyp otherwise her colon was normal. I suspect this is resolution of her ischemic colitis and perhaps it will heal with a stricture. Currently she is not symptomatic from it. The bleeding she describes to me seems minimal although her hemoglobin suggests otherwise. I don't think colonoscopy will add anything at this time but I told her we may have to consider it as time goes on. Especially if she starts to develop obstructive symptoms. History of Present Illness Reason for Consultation: abnormal CT Attending Physician: Vlad Thompson MD History of Present Illness 82 year old female known to me from last hospitalization last month. She was in with what was felt to be right sided ischemic colitis. Her symptoms resolved and she was discharged. She returns here because of a "cough". She tells me her bowel movements have been normal. She sees blood on the tissue only. There is no blood in the stool and none in the water. She denies abdominal pain. Admit CT suggested right colon malignancy. Hemoglobin 6 on admit. Allergies Allergy/AdvReac Type Severity Reaction Status Date / Time fenofibrate AdvReac Intermediate INCREASED Verified 11/01/22 20:39 URINATION metoprolol AdvReac Intermediate VOMIT,DIARR Verified 11/01/22 20:39 HEA valsartan AdvReac Intermediate Weakness Verified 11/01/22 20:39 verapamil AdvReac Intermediate INCREASED Verified 11/01/22 20:39 URINATION Home Medications Medication Instructions Recorded Confirmed Type fish, borage, flaxseed oils-omega 1 cap PO QDD 12/01/20 11/01/22 History 3,6,9 comb no.1 1,200 mg capsule ([place] 3-6-9) atorvastatin 40 mg tablet 40 mg PO QAM 02/26/21 11/01/22 History multivitamin 1 tab PO QAM 02/26/21 11/01/22 History amiodarone 200 mg tablet 200 mg PO QAM 07/01/21 11/01/22 History pantoprazole 40 mg tablet,delayed 40 mg PO BID 07/01/21 11/01/22 History release glimepiride 4 mg tablet 4 mg PO BID 12/21/21 11/01/22 History carvedilol 6.25 mg tablet 6.25 mg PO BID #60 tabs 12/27/21 11/01/22 Rx furosemide 40 mg tablet 40 mg PO QAM #30 tabs 12/27/21 11/01/22 Rx magnesium oxide 400 mg (241.3 mg 400 mg PO BID #60 tabs 12/27/21 11/01/22 Rx magnesium) tablet amlodipine 10 mg tablet 10 mg PO BID 06/20/22 11/01/22 History sacubitril 24 mg-valsartan 26 mg 1 tab PO BID 09/20/22 11/01/22 History tablet (Entresto) spironolactone 25 mg tablet 25 mg PO QAM 09/20/22 11/01/22 History hydralazine 100 mg tablet 50 mg PO TID #30 tabs 10/06/22 11/01/22 Rx clopidogrel 75 mg tablet 75 mg PO DAILY 11/01/22 11/01/22 History Patient History Medical History Acute non-ST elevation myocardial infarction (NSTEMI) Acute on chronic heart failure with preserved ejection fraction (HFpEF) LEV (acute kidney injury) Anemia Bradycardia CAD (coronary artery disease) CVA (cerebral vascular accident) (~2019) no deficits Elevated troponin Hyperkalemia Hyperlipemia Hyponatremia Hypoxia Myocardial infarct, old follows with Dr. Mcpherson Occlusion of right iliac artery PAD (peripheral artery disease) Pneumonia hx S/P angiogram of extremity (02/02/21) Type 2 diabetes mellitus with diabetic neuropathy, unspecified NIDDM Surgical History H/O removal of cyst right abdominal area History of bunionectomy of right great toe History of cardiac cath (~2019) History of heart artery stent (~2019) x1. at [facility]. 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 Electrical Required: No Beliefs That Will Affect Care: None marital status: / Current Living Situation: Family Current Living Situation Comment: currently moving in with daughter current occupational status: retired How many Children do You have: 1 Feels Safe at Home: Yes Assistive Devices: None Review of Systems Review of Systems: All systems reviewed & are unremarkable except as noted in HPI & below Physical Exam Constitutional: WD/WN, vitals as above no acute distress Eyes: PERRL, conjunctivae normal, anicteric sclerae ENMT: external ear and nose normal, oropharynx normal Neck: trachea midline, no thyromegaly Respiratory: normal respiratory effort, lungs clear to auscultation Cardiovascular: RRR, no murmur, no edema Gastrointestinal (Abdomen): normal bowel sounds, soft, nontender, no hepatosplenomegaly Musculoskeletal: Extremities: no cyanosis and no clubbing Skin: no rashes, warm and dry Neurologic: PERRL, EOMI, accommodation nl, no face palsy, no dysarthria Psychiatric: Orientation: alert and oriented x 3 Results & Data Vital Signs (Past 12 Hours) Vital Signs Temp Pulse Pulse Resp BP BP BP 11/02/22 09:03 36.9 C 60 18 174/63 H 11/02/22 07:27 11/02/22 05:04 36.8 C 78 18 124/81 11/02/22 05:00 36.3 C L 55 L 18 138/56 L 11/02/22 04:00 36.6 C 55 L 18 153/73 H 11/02/22 03:03 36.4 C L 55 L 18 121/44 L 11/02/22 03:00 36.3 C L 55 L 18 138/56 L 11/02/22 02:30 36.3 C L 55 L 18 138/56 L 11/02/22 02:15 36.5 C 57 L 18 132/49 L 11/02/22 02:15 36.5 C 57 L 18 132/49 L 11/02/22 01:59 36.8 C 56 L 16 139/53 L 11/02/22 01:40 36.9 C 56 L 16 132/50 L 11/02/22 01:28 62 11/02/22 00:35 11/02/22 00:35 36.4 C L 63 18 176/90 H 11/01/22 22:54 36.4 C L 63 18 176/90 H Pulse Ox O2 Del Method O2 Flow Rate 11/02/22 09:03 93 Room Air 11/02/22 07:27 Room Air 11/02/22 05:04 94 3 11/02/22 05:00 93 3 11/02/22 04:00 91 3 11/02/22 03:03 94 Nasal Cannula 3 11/02/22 03:00 93 3 11/02/22 02:30 93 3 11/02/22 02:15 90 3 11/02/22 02:15 90 11/02/22 01:59 90 11/02/22 01:40 92 11/02/22 01:28 11/02/22 00:35 Nasal Cannula 3 11/02/22 00:35 92 Nasal Cannula 3 11/01/22 22:54 92 Nasal Cannula 3 Laboratory Results 11/02/22 11/02/22 11/02/22 Range/Units 06:38 06:38 06:04 WBC 7.48 (4.8-10.8) K/ul RBC 2.96 L (4.20-5.40) M/uL Hgb 8.2 L (12.0-16.0) g/dl Hct 25.5 L (37.0-47.0) % MCV 86.1 (80.0-100.0) fL MCH 27.7 (25.0-34.0) pg MCHC 32.2 (32.0-36.0) g/dL RDW Std Deviation 55.7 H (36.4-46.3) fL RDW Coeff of Alysa 18.0 H (11.5-14.5) % Plt Count 272 (130-400) K/uL MPV 11.6 (9.4-12.4) fL Immature Gran % (Auto) 0.4 % Neut % (Auto) 65.1 % Lymph % (Auto) 21.7 % [place] % (Auto) 8.7 % Eos % (Auto) 3.6 % Baso % (Auto) 0.5 % Neut # (Auto) 4.87 (1.40-6.50) K/uL Lymph # (Auto) 1.62 (1.2-3.4) K/uL [place] # (Auto) 0.65 H (0.11-0.59) K/uL Eos # (Auto) 0.27 (0-0.50) K/uL Baso # (Auto) 0.04 (0-0.2) K/uL Immature Gran # (Auto) 0.03 (0.01-0.20) K/uL Polychromasia Anisocytosis PT (9.0-12.0) Seconds INR (0.9-1.1) APTT (21.0-31.0) Seconds PTT Ratio Sodium 137 (136-145) mmol/L Potassium 4.4 (3.5-5.1) mmol/L Chloride 107 (98-107) mmol/L Carbon Dioxide 23 (21-32) mmol/L Anion Gap 7 (3-11) BUN 36 H (6-23) mg/dl Creatinine 1.53 H (0.6-1.2) mg/dl Est Cr Clr Drug Dosing 26.3 Est GFR ( Amer) 36.8 ml/min Est GFR (Non-Af Amer) 31.8 ml/min BUN/Creatinine Ratio 23.5 H (10-20) Glucose 140 H (70-99(Fasting)) mg/dl POC Glucose 170 H (70-99) mg/dl Calcium 8.9 (8.6-10.3) mg/dl Total Bilirubin 1.1 H (0.2-1.0) mg/dl AST 12 L (13-39) U/L ALT 12 (7-52) U/L Alkaline Phosphatase 85 (34-104) U/L Total Protein 6.1 (6.0-8.3) gm/dl Albumin 3.5 (3.4-5.0) gm/dl Globulin 2.6 (2.5-4.0) gm/dl Albumin/Globulin Ratio 1.3 (0.9-2) Carcinoembryonic Ag (0-2.5) ng/ml SARS-CoV-2, RNA, NAAT (NEGATIVE) Blood Type Antibody Screen Crossmatch 11/01/22 11/01/2211/01/23 Range/Units 22:18 18:03 16:41 WBC (4.8-10.8) K/ul RBC (4.20-5.40) M/uL Hgb (12.0-16.0) g/dl Hct (37.0-47.0) % MCV (80.0-100.0) fL MCH (25.0-34.0) pg MCHC (32.0-36.0) g/dL RDW Std Deviation (36.4-46.3) fL RDW Coeff of Alysa (11.5-14.5) % Plt Count (130-400) K/uL MPV (9.4-12.4) fL Immature Gran % (Auto) % Neut % (Auto) % Lymph % (Auto) % [place] % (Auto) % Eos % (Auto) % Baso % (Auto) % Neut # (Auto) (1.40-6.50) K/uL Lymph # (Auto) (1.2-3.4) K/uL [place] # (Auto) (0.11-0.59) K/uL Eos # (Auto) (0-0.50) K/uL Baso # (Auto) (0-0.2) K/uL Immature Gran # (Auto) (0.01-0.20) K/uL Polychromasia Anisocytosis PT (9.0-12.0) Seconds INR (0.9-1.1) APTT (21.0-31.0) Seconds PTT Ratio Sodium (136-145) mmol/L Potassium (3.5-5.1) mmol/L Chloride (98-107) mmol/L Carbon Dioxide (21-32) mmol/L Anion Gap (3-11) BUN (6-23) mg/dl Creatinine (0.6-1.2) mg/dl Est Cr Clr Drug Dosing Est GFR ( Amer) ml/min Est GFR (Non-Af Amer) ml/min BUN/Creatinine Ratio (10-20) Glucose (70-99(Fasting)) mg/dl POC Glucose 166 H (70-99) mg/dl Calcium (8.6-10.3) mg/dl Total Bilirubin (0.2-1.0) mg/dl AST (13-39) U/L ALT (7-52) U/L Alkaline Phosphatase (34-104) U/L Total Protein (6.0-8.3) gm/dl Albumin (3.4-5.0) gm/dl Globulin (2.5-4.0) gm/dl Albumin/Globulin Ratio (0.9-2) Carcinoembryonic Ag 2.6 H (0-2.5) ng/ml SARS-CoV-2, RNA, NAAT NEGATIVE (NEGATIVE) Blood Type Antibody Screen Crossmatch 11/01/22 11/01/22 11/01/22 Range/Units 16:40 16:40 16:40 WBC 5.71 (4.8-10.8) K/ul RBC 2.23 L (4.20-5.40) M/uL Hgb 6.1 L* (12.0-16.0) g/dl Hct 20.0 L* (37.0-47.0) % MCV 89.7 (80.0-100.0) fL MCH 27.4 (25.0-34.0) pg MCHC 30.5 L (32.0-36.0) g/dL RDW Std Deviation 57.6 H (36.4-46.3) fL RDW Coeff of Alysa 17.6 H (11.5-14.5) % Plt Count 300 (130-400) K/uL MPV 11.1 (9.4-12.4) fL Immature Gran % (Auto) 0.4 % Neut % (Auto) 57.5 % Lymph % (Auto) 28.9 % [place] % (Auto) 10.2 % Eos % (Auto) 2.5 % Baso % (Auto) 0.5 % Neut # (Auto) 3.29 (1.40-6.50) K/uL Lymph # (Auto) 1.65 (1.2-3.4) K/uL [place] # (Auto) 0.58 (0.11-0.59) K/uL Eos # (Auto) 0.14 (0-0.50) K/uL Baso # (Auto) 0.03 (0-0.2) K/uL Immature Gran # (Auto) 0.02 (0.01-0.20) K/uL Polychromasia 1+ Anisocytosis Present PT 11.9 (9.0-12.0) Seconds INR 1.1 (0.9-1.1) APTT 24.7 (21.0-31.0) Seconds PTT Ratio 0.9 Sodium 138 (136-145) mmol/L Potassium 4.7 (3.5-5.1) mmol/L Chloride 107 (98-107) mmol/L Carbon Dioxide 23 (21-32) mmol/L Anion Gap 8 (3-11) BUN 41 H (6-23) mg/dl Creatinine 1.74 H (0.6-1.2) mg/dl Est Cr Clr Drug Dosing Not Reportable Est GFR ( Amer) 31.5 ml/min Est GFR (Non-Af Amer) 27.2 ml/min BUN/Creatinine Ratio 23.6 H (10-20) Glucose 128 H (70-99(Fasting)) mg/dl POC Glucose (70-99) mg/dl Calcium 8.9 (8.6-10.3) mg/dl Total Bilirubin (0.2-1.0) mg/dl AST (13-39) U/L ALT (7-52) U/L Alkaline Phosphatase (34-104) U/L Total Protein (6.0-8.3) gm/dl Albumin (3.4-5.0) gm/dl Globulin (2.5-4.0) gm/dl Albumin/Globulin Ratio (0.9-2) Carcinoembryonic Ag (0-2.5) ng/ml SARS-CoV-2, RNA, NAAT (NEGATIVE) Blood Type Antibody Screen Crossmatch 11/01/22 Range/Units 16:40 WBC (4.8-10.8) K/ul RBC (4.20-5.40) M/uL Hgb (12.0-16.0) g/dl Hct (37.0-47.0) % MCV (80.0-100.0) fL MCH (25.0-34.0) pg MCHC (32.0-36.0) g/dL RDW Std Deviation (36.4-46.3) fL RDW Coeff of Alysa (11.5-14.5) % Plt Count (130-400) K/uL MPV (9.4-12.4) fL Immature Gran % (Auto) % Neut % (Auto) % Lymph % (Auto) % [place] % (Auto) % Eos % (Auto) % Baso % (Auto) % Neut # (Auto) (1.40-6.50) K/uL Lymph # (Auto) (1.2-3.4) K/uL [place] # (Auto) (0.11-0.59) K/uL Eos # (Auto) (0-0.50) K/uL Baso # (Auto) (0-0.2) K/uL Immature Gran # (Auto) (0.01-0.20) K/uL Polychromasia Anisocytosis PT (9.0-12.0) Seconds INR (0.9-1.1) APTT (21.0-31.0) Seconds PTT Ratio Sodium (136-145) mmol/L Potassium (3.5-5.1) mmol/L Chloride (98-107) mmol/L Carbon Dioxide (21-32) mmol/L Anion Gap (3-11) BUN (6-23) mg/dl Creatinine (0.6-1.2) mg/dl Est Cr Clr Drug Dosing Est GFR ( Amer) ml/min Est GFR (Non-Af Amer) ml/min BUN/Creatinine Ratio (10-20) Glucose (70-99(Fasting)) mg/dl POC Glucose (70-99) mg/dl Calcium (8.6-10.3) mg/dl Total Bilirubin (0.2-1.0) mg/dl AST (13-39) U/L ALT (7-52) U/L Alkaline Phosphatase (34-104) U/L Total Protein (6.0-8.3) gm/dl Albumin (3.4-5.0) gm/dl Globulin (2.5-4.0) gm/dl Albumin/Globulin Ratio (0.9-2) Carcinoembryonic Ag (0-2.5) ng/ml SARS-CoV-2, RNA, NAAT (NEGATIVE) Blood Type B Positive Antibody Screen NEGATIVE Crossmatch See Detail Diagnostic Findings Abdomen/Pelvis CT 11/01/22 18:47 Exam(s): CT ABDOMEN + PELVIS With Contrast IV Amt: 87ml optiray 320 EXAM: CT Abdomen and Pelvis With Intravenous Contrast CLINICAL HISTORY: Reason for exam: hematochezia, prior ichemic colitis ?mass. TECHNIQUE: Axial computed tomography images of the abdomen and pelvis with intravenous contrast. CTDI is 22.04 mGy and DLP is 1038.88 mGy-cm. Automated exposure control was utilized for the study. A dose lowering technique was utilized adhering to the principles of ALARA. CONTRAST: Patient received 87ml optiray 320 of IV contrast COMPARISON: 09/28/22 FINDINGS: Patient is status post aortic valve replacement. Coronary arteries are calcified. There are small right and trace left pleural effusions. There is gallbladder sludge and/or tiny stones without evidence of acute cholecystitis or biliary dilatation. Liver, spleen, adrenal glands, and pancreas are unremarkable. Kidneys enhance symmetrically. There is no hydronephrosis. Subcentimeter cortical hypodensity left kidney upper pole is favored to represent a cyst but is too small to characterize. There is heavy calcification of the abdominal aorta with apparent moderate stenosis of the suprarenal aorta (series 2, image 25). There is no free air or significant free fluid. There is an 8 cm long segment of wall thickening and luminal narrowing in the cecum. Small lymph nodes are noted in the adjacent mesentery. There is no mechanical bowel obstruction. Appendix is not clearly visualized. Uterus and urinary bladder are unremarkable. There is a patent femorofemoral bypass graft. There are degenerative changes of the spine. There are no acute osseous findings. IMPRESSION: 1. There is an 8 cm long segment of circumferential wall thickening and luminal narrowing in the cecum. Findings raise concern for colon cancer. Small lymph nodes are noted in the adjacent mesentery. An infectious/inflammatory colitis is a differential consideration but considered less likely. Correlation with colonoscopy is recommended following resolution of acute phase. 2. Bulky calcific plaque in the suprarenal abdominal aorta appearing to produce a moderate stenosis. Electronically signed by: Corina Luciano M.D. 11/01/22 20:30 PM
--- NOTE | 2022-11-02 10:13 | XRay Report ---
XR chest 1V portable HISTORY: 82 years-old Female cough, CHF, hypoxia acute cough with hypoxia COMPARISON: 10/16/2022 TECHNIQUE: AP view of the chest FINDINGS: Cardiomegaly with prosthetic aortic valve. Small pleural effusions with mild bibasilar atelectasis. P ulmonary vascular congestion with interstitial coarsening again noted. No pneumothorax. Degenerative changes of the shoulders and spine. IMPRESSION: 1. Cardiomegaly with unchanged mild pulmonary edema. 2. Small pleural effusions. ACT 112: Negative or not required by law. The above report was generated using voice recognition software. It may contain grammatical, syntax o r spelling errors. Electronically signed by: Abraham Solis M.D. 11/02/2022 10:11 AM
--- NOTE | 2022-11-02 10:26 | Hospitalist Progress Note ---
Date of Service November 02, 2022 Assessment & Plan (1) Acute GI bleeding: Plan: Bright red blood in stool therefore not placed on PPI Restart Plavix in AM Appreciate GI recommendations (2) Acute blood loss anemia: Plan: Hgb 6.1 from 8.3, now s/p 2 packed RBCs Hgb now 8.2 Will increase hemoglobin goal to 9 as likely to continue to bleed in patient with CHF and vasculopath she needs to continue on Plavix Most likely will need repeated blood tests and transfusions as outpatient and if goal is 9 much less likely to need ER and further admissions (3) Abnormal CT of the abdomen: Plan: CEA only minimally above normal Concern for mass on CT but suspected to just be residual from colon ischemia per GI - patient will follow up with [place] [facility] regarding this (4) Hypoxia: Plan: Suspect due to blood transfusions causing worsening pulmonary edema. Aim O2 sats > 90% (5) (HFpEF) heart failure with preserved ejection fraction: Plan: Suspect mild hypervolemia related to blood transfusions, will increase Lasix to 40mg PO BID (6) DM (diabetes mellitus): Plan: Hemoglobin A1C 6.2 in August, no need to repeat Hold glimepiride Lantus 0-5 units BID with glucose 120 as cut off Novolog: --Goal BSG Range: Low 110 mg/dL, High 140 mg/dL --Correction Factor: 45 mg/dL/unit --Carbohydrate ratio = 15 g/unit --BSGs ACHS if eating, q6h if npo Pharmacy consulted for ongoing changes (7) CAD (coronary artery disease): Plan: Restart Plavix in AM Continue carvedilol, Entresto and atorvastatin (8) S/P TAVR (transcatheter aortic valve replacement): (9) PAD (peripheral artery disease): Plan: Currently no acute concerns regarding this s/p 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 Plan VTE Prophylaxis - chemical contraindicated Diet - T2DM Disposition - admit to med/tele Admission and Anticipated Discharge Date Admission Date: November 01, 2022 Subjective Up and walking to the bathroom without chest pain, shortness of breath dizziness or lightheadedness. No further bowel movements or hematochezia. No abdominal pain. Currently on 1LPM O2 (on room air at home) and having a dry cough, Tessaljerry Willises not working for this. No orthopnea or PND. No worsening leg swelling. Review of Systems Review of Systems: All systems reviewed & are unremarkable except as noted in HPI & below Physical Exam Constitutional: WD/WN, vitals as above no acute distress Respiratory: normal respiratory effort, lungs clear to auscultation Cardiovascular: RRR, no murmur, no edema Gastrointestinal (Abdomen): normal bowel sounds, soft, nontender, no hepatosplenomegaly Musculoskeletal: Extremities: no cyanosis and no clubbing Skin: no rashes, warm and dry Psychiatric: Orientation: alert and oriented x 3 Results & Data Results & Data Vital Signs (Past 12 Hours) Vital Signs Temp Pulse Pulse Resp BP BP BP 11/02/22 09:03 36.9 C 60 18 174/63 H 11/02/22 07:27 11/02/22 05:04 36.8 C 78 18 124/81 11/02/22 05:00 36.3 C L 55 L 18 138/56 L 11/02/22 04:00 36.6 C 55 L 18 153/73 H 11/02/22 03:03 36.4 C L 55 L 18 121/44 L 11/02/22 03:00 36.3 C L 55 L 18 138/56 L 11/02/22 02:30 36.3 C L 55 L 18 138/56 L 11/02/22 02:15 36.5 C 57 L 18 132/49 L 11/02/22 02:15 36.5 C 57 L 18 132/49 L 11/02/22 01:59 36.8 C 56 L 16 139/53 L 11/02/22 01:40 36.9 C 56 L 16 132/50 L 11/02/22 01:28 62 11/02/22 00:35 11/02/22 00:35 36.4 C L 63 18 176/90 H 11/01/22 22:54 36.4 C L 63 18 176/90 H Pulse Ox O2 Del Method O2 Flow Rate 11/02/22 09:03 93 Room Air 11/02/22 07:27 Room Air 11/02/22 05:04 94 3 11/02/22 05:00 93 3 11/02/22 04:00 91 3 11/02/22 03:03 94 Nasal Cannula 3 11/02/22 03:00 93 3 11/02/22 02:30 93 3 11/02/22 02:15 90 3 11/02/22 02:15 90 11/02/22 01:59 90 11/02/22 01:40 92 11/02/22 01:28 11/02/22 00:35 Nasal Cannula 3 11/02/22 00:35 92 Nasal Cannula 3 11/01/22 22:54 92 Nasal Cannula 3 Laboratory Results Abnormal lab results 11/01/22 11/01/22 11/01/22 Range/Units 16:40 16:40 16:40 RBC 2.23 L (4.20-5.40) M/uL Hgb 6.1 L* (12.0-16.0) g/dl Hct 20.0 L* (37.0-47.0) % MCHC 30.5 L (32.0-36.0) g/dL RDW Std Deviation 57.6 H (36.4-46.3) fL RDW Coeff of Alysa 17.6 H (11.5-14.5) % [place] # (Auto) (0.11-0.59) K/uL BUN 41 H (6-23) mg/dl Creatinine 1.74 H (0.6-1.2) mg/dl BUN/Creatinine Ratio 23.6 H (10-20) Glucose 128 H (70-99(Fasting)) mg/dl POC Glucose (70-99) mg/dl Total Bilirubin (0.2-1.0) mg/dl AST (13-39) U/L Carcinoembryonic Ag (0-2.5) ng/ml Crossmatch See Detail 11/01/22 11/01/22 11/02/22 Range/Units 16:41 22:18 06:04 RBC (4.20-5.40) M/uL Hgb (12.0-16.0) g/dl Hct (37.0-47.0) % MCHC (32.0-36.0) g/dL RDW Std Deviation (36.4-46.3) fL RDW Coeff of Alysa (11.5-14.5) % [place] # (Auto) (0.11-0.59) K/uL BUN (6-23) mg/dl Creatinine (0.6-1.2) mg/dl BUN/Creatinine Ratio (10-20) Glucose (70-99(Fasting)) mg/dl POC Glucose 166 H 170 H (70-99) mg/dl Total Bilirubin (0.2-1.0) mg/dl AST (13-39) U/L Carcinoembryonic Ag 2.6 H (0-2.5) ng/ml Crossmatch 11/02/22 11/02/22 11/02/22 Range/Units 06:38 06:38 11:52 RBC 2.96 L 2.98 L (4.20-5.40) M/uL Hgb 8.2 L 8.3 L (12.0-16.0) g/dl Hct 25.5 L 25.5 L (37.0-47.0) % MCHC (32.0-36.0) g/dL RDW Std Deviation 55.7 H 56.6 H (36.4-46.3) fL RDW Coeff of Alysa 18.0 H 18.5 H (11.5-14.5) % [place] # (Auto) 0.65 H (0.11-0.59) K/uL BUN 36 H (6-23) mg/dl Creatinine 1.53 H (0.6-1.2) mg/dl BUN/Creatinine Ratio 23.5 H (10-20) Glucose 140 H (70-99(Fasting)) mg/dl POC Glucose (70-99) mg/dl Total Bilirubin 1.1 H (0.2-1.0) mg/dl AST 12 L (13-39) U/L Carcinoembryonic Ag (0-2.5) ng/ml Crossmatch 11/02/22 Range/Units 11:57 RBC (4.20-5.40) M/uL Hgb (12.0-16.0) g/dl Hct (37.0-47.0) % MCHC (32.0-36.0) g/dL RDW Std Deviation (36.4-46.3) fL RDW Coeff of Alysa (11.5-14.5) % [place] # (Auto) (0.11-0.59) K/uL BUN (6-23) mg/dl Creatinine (0.6-1.2) mg/dl BUN/Creatinine Ratio (10-20) Glucose (70-99(Fasting)) mg/dl POC Glucose 149 H (70-99) mg/dl Total Bilirubin (0.2-1.0) mg/dl AST (13-39) U/L Carcinoembryonic Ag (0-2.5) ng/ml Crossmatch Diagnostic Findings CT Abdomen and Pelvis With Intravenous Contrast CLINICAL HISTORY: Reason for exam: hematochezia, prior ichemic colitis ?mass. TECHNIQUE: Axial computed tomography images of the abdomen and pelvis with intravenous contrast. CTDI is 22.04 mGy and DLP is 1038.88 mGy-cm. Automated exposure control was utilized for the study. A dose lowering technique was utilized adhering to the principles of ALARA. CONTRAST: Patient received 87ml optiray 320 of IV contrast COMPARISON: 09/28/22 FINDINGS: Patient is status post aortic valve replacement. Coronary arteries are calcified. There are small right and trace left pleural effusions. There is gallbladder sludge and/or tiny stones without evidence of acute cholecystitis or biliary dilatation. Liver, spleen, adrenal glands, and pancreas are unremarkable. Kidneys enhance symmetrically. There is no hydronephrosis. Subcentimeter cortical hypodensity left kidney upper pole is favored to represent a cyst but is too small to characterize. There is heavy calcification of the abdominal aorta with apparent moderate stenosis of the suprarenal aorta (series 2, image 25). There is no free air or significant free fluid. There is an 8 cm long segment of wall thickening and luminal narrowing in the cecum. Small lymph nodes are noted in the adjacent mesentery. There is no mechanical bowel obstruction. Appendix is not clearly visualized. Uterus and urinary bladder are unremarkable. There is a patent femorofemoral bypass graft. There are degenerative changes of the spine. There are no acute osseous findings. IMPRESSION: 1. There is an 8 cm long segment of circumferential wall thickening and luminal narrowing in the cecum. Findings raise concern for colon cancer. Small lymph nodes are noted in the adjacent mesentery. An infectious/inflammatory colitis is a differential consideration but considered less likely. Correlation with colonoscopy is recommended following resolution of acute phase. 2. Bulky calcific plaque in the suprarenal abdominal aorta appearing to produce a moderate stenosis. PG Care Time/CCT Total # of Minutes Spent Total Time Spent with Patient: Total time spent is greater than 50% in coordination of care (as documented) at patient's floor/unit and/or counseling patient: Coding Level of Care Code 97451 SUB INP/OBS CARE 235MIN Diagnoses Acute GI bleeding K92.2 Acute blood loss anemia D62 Abnormal CT of the abdomen R93.5 Hypoxia R09.02 (HFpEF) heart failure with preserved ejection fraction I50.30 DM (diabetes mellitus) E11.9 CAD (coronary artery disease) I25.10 S/P TAVR (transcatheter aortic valve replacement) Z95.2 PAD (peripheral artery disease) I73.9
[2022-11-02 12:11] LABS: Hematocrit (blood only) 25.5 % (37.0-47.0); Hemoglobin 8.3 g/dl (12.0-16.0); Mean Corpuscular Hemoglobin 27.9 pg (25.0-34.0); Mean Corpuscular Hgb Conc 32.5 g/dL (32.0-36.0); Mean Corpuscular Volume 85.6 fL (80.0-100.0); Mean Platelet Volume 11.3 fL (9.4-12.4); Platelet Count 279 K/uL (130-400); RDW Coefficient of Variation 18.5 % (11.5-14.5); RDW Standard Deviation 56.6 fL (36.4-46.3); Red Blood Count 2.98 M/uL (4.20-5.40); White Blood Count 6.89 K/ul (4.8-10.8)
[2022-11-02] MEDS: DEXTROMETHORPHAN POLYMR COMPLX 30 MG/5 ML UDP PO PRN (12:14)
[2022-11-02] MEDS ORDERED: SODIUM CHLORIDE 0.9% 250 ML IV PRN (12:33)
--- NOTE | 2022-11-02 14:41 | Pharmacy Report ---
Pharmacy Glycemic Short Note 2 - Date of Service November 02, 2022 - Glycemic Short BSG Results (Last 24 hours): 11/01/22 11/01/22 11/02/22 16:40 22:18 06:04 Glucose 128 H POC Glucose 166 H 170 H 11/02/22 11/02/22 06:38 11:57 Glucose 140 H POC Glucose 149 H OUTPATIENT ANTIDIABETIC REGIMEN: * Glimepiride 4 mg PO BID * Metformin 1000 mg PO BID HbA1c = 6.2% on 09/21/22 ASSESSMENT: * 82 y/o F admitted for GI bleed yesterday. Patient with history of Type 2 diabetes managed at home on two oral anti-diabetic meds. * Holding oral anti-diabetic meds on admission and utilizing basal and bolus insulins for glycemic management. * Patient was NPO until this morning but diet ordered with lunch. Novolog parameters based on stress of 2. * Fasting BSG this AM was 140 mg/dl. Basal insulin held. Will reassess basal dose tomorrow. * Pre-lunch BSG = 149 mg/dl. Novolog CR loosened slightly. PLAN FOR INPATIENT GLYCEMIC CONTROL: * Hold outpatient oral diabetes medications * Basal insulin * on hold. Re-assess tomorrow. * Bolus insulin * NovoLog per scale ACHS or Q6hrs while NPO * Goal Range: Low 120 mg/dL - High 150 mg/dL * Correction Factor: 40 mg/dL/unit * Nutritional / Prandial insulin per carb ratio of 1 unit per 11 grams CHO consumed
[2022-11-02] MEDS: BENZONATATE 100 MG CAPSULE PO SCH ×2 (15:33→20:19)
[2022-11-02 18:19] LABS: Hematocrit (blood only) 28.6 % (37.0-47.0); Hemoglobin 9.6 g/dl (12.0-16.0); Mean Corpuscular Hemoglobin 28.3 pg (25.0-34.0); Mean Corpuscular Hgb Conc 33.6 g/dL (32.0-36.0); Mean Corpuscular Volume 84.4 fL (80.0-100.0); Mean Platelet Volume 11.1 fL (9.4-12.4); Platelet Count 262 K/uL (130-400); RDW Coefficient of Variation 18.6 % (11.5-14.5); Red Blood Count 3.39 M/uL (4.20-5.40); White Blood Count 5.98 K/ul (4.8-10.8)
[2022-11-03 00:54] LABS: Hemoglobin 8.9 g/dl (12.0-16.0); Mean Corpuscular Hemoglobin 27.5 pg (25.0-34.0); Mean Corpuscular Volume 83.3 fL (80.0-100.0); Mean Platelet Volume 11.5 fL (9.4-12.4); Platelet Count 255 K/uL (130-400); RDW Coefficient of Variation 18.6 % (11.5-14.5); RDW Standard Deviation 54.8 fL (36.4-46.3); Red Blood Count 3.24 M/uL (4.20-5.40); White Blood Count 8.64 K/ul (4.8-10.8)
[2022-11-03] MEDS: DEXTROMETHORPHAN POLYMR COMPLX 30 MG/5 ML UDP PO PRN ×2 (01:33→19:07)
[2022-11-03 06:04] LABS: Hematocrit (blood only) 26.9 % (37.0-47.0); Hemoglobin 8.8 g/dl (12.0-16.0); Mean Corpuscular Hemoglobin 27.2 pg (25.0-34.0); Mean Corpuscular Hgb Conc 32.7 g/dL (32.0-36.0); Mean Corpuscular Volume 83.3 fL (80.0-100.0); Platelet Count 244 K/uL (130-400); RDW Coefficient of Variation 18.5 % (11.5-14.5); RDW Standard Deviation 55.1 fL (36.4-46.3); Red Blood Count 3.23 M/uL (4.20-5.40); White Blood Count 6.35 K/ul (4.8-10.8)
[2022-11-03 06:21] LABS: BUN Creatinine Ratio 22.6 (10-20); Calcium 8.6 mg/dl (8.6-10.3); Creatinine Clr Calc Pharmacy 20.6 ml/min; Est GFR (African American) 27.5 ml/min; Est GFR (Non-African American) 23.7 ml/min; Potassium 4.4 mmol/L (3.5-5.1)
[2022-11-03] MEDS ORDERED: SODIUM CHLORIDE 0.9% 250 ML IV PRN (07:14)
--- NOTE | 2022-11-03 07:59 | XRay Report ---
XR chest 1V portable HISTORY: 82 years-old Female CHF acute shortness of breath COMPARISON: 11/02/2022 TECHNIQUE: AP view of the chest FINDINGS: Cardiac silhouette is enlarged. Aortic valvular radiograph. Atherosclerosis of the aorta. Unchanged r ight hemidiaphragmatic elevation. Pulmonary vascular congestion with mildly improved interstitial coa rsening. No pneumothorax. Trace pleural effusions. Degenerative changes of the shoulders and spine. IMPRESSION: 1. Cardiomegaly with slightly improved pulmonary edema. 2. Probable trace pleural effusions. ACT 112: Negative or not required by law. The above report was generated using voice recognition software. It may contain grammatical, syntax o r spelling errors. Electronically signed by: Abraham Solis M.D. 11/03/2022 7:58 AM
[2022-11-03] MEDS ORDERED: CLOPIDOGREL BISULFATE 75 MG TAB PO SCH (09:00)
[2022-11-03] MEDS ORDERED: LANTUS PER UNIT CHARGE SC SCH (09:00)
[2022-11-03] MEDS: INSULIN ASPART PER UNIT CHARGE SC SCH ×4 (09:36→21:15)
[2022-11-03] MEDS: VALSARTAN/SACUBITRIL 26/24MG TAB PO SCH ×2 (09:37→20:19)
[2022-11-03] MEDS: hydrALAZINE TAB 50 MG TAB PO SCH ×3 (09:39→20:19)
[2022-11-03] MEDS: PANTOprazole 40 MG TAB PO SCH ×2 (09:39→20:20)
[2022-11-03] MEDS: BENZONATATE 100 MG CAPSULE PO SCH ×3 (09:40→20:18)
[2022-11-03] MEDS: amLODIPine BESYLATE 5 MG TAB PO SCH ×2 (09:40→20:19)
[2022-11-03] MEDS: ATORVASTATIN 40 MG TAB PO SCH (09:41)
[2022-11-03] MEDS: SPIRONOLACTONE 25 MG TAB PO SCH (09:41)
[2022-11-03] MEDS: carvediloL 6.25 MG TAB PO SCH ×2 (10:17→20:18)
[2022-11-03] MEDS: AMIODARONE 200 MG TAB PO SCH (10:17)
--- NOTE | 2022-11-03 10:28 | Gastroenterology Progress Note ---
Date of Service November 03, 2022 Assessment & Plan (1) Abnormal CT of the abdomen: Plan: She is doing well from a GI standpoint. I don't plan testing while in the hospital. She can follow up in our clinic and decision about repeat colonoscopy (she had one last year) will be based on her symptoms Admission and Anticipated Discharge Date Admission Date: November 01, 2022 Subjective Doing well from a GI standpoint. Had a normal bowel movement without blood and did not even see blood on the tissue. H/H seems stable Physical Exam Physical Exam: She looks well Results & Data Vital Signs (Past 12 Hours) Vital Signs Temp Pulse Pulse Resp BP BP BP 11/03/22 09:56 36.6 C 58 L 18 148/79 H 11/03/22 08:56 36.5 C 58 L 18 148/67 H 11/03/22 08:26 36.6 C 68 18 151/71 H 11/03/22 08:11 36.5 C 59 L 18 150/63 H 11/03/22 08:09 37 C 61 20 165/66 H 11/03/22 07:51 36.8 C 62 20 162/68 H 11/03/22 07:44 11/03/22 07:40 36.9 C 62 20 153/63 H 11/03/22 07:01 64 11/03/22 03:31 36.8 C 68 18 172/56 H 11/02/22 23:00 36.8 C 66 18 152/53 H 11/02/22 23:40 Pulse Ox O2 Del Method O2 Flow Rate 11/03/22 09:56 91 11/03/22 08:56 96 11/03/22 08:26 95 2 11/03/22 08:11 97 1 11/03/22 08:09 95 3 11/03/22 07:51 97 3 11/03/22 07:44 Nasal Cannula 3 11/03/22 07:40 90 Room Air 2 11/03/22 07:01 11/03/22 03:31 92 Room Air 11/02/22 23:00 91 Nasal Cannula 2 11/02/22 23:40 95 Nasal Cannula 1
--- NOTE | 2022-11-03 16:50 | Hospitalist Progress Note ---
Date of Service November 03, 2022 Assessment & Plan (1) Acute GI bleeding: Plan: Bright red blood in stool therefore not placed on PPI Restart Plavix in AM - deferred another day due to ongoing Hgb dropping Appreciate GI recommendations (2) Acute blood loss anemia: Plan: Hgb 6.1 from 8.3, now s/p 3 packed RBCs Hgb now 8.8, will give another 1 unit to aim Hgb > 9 Likely to continue to bleed in patient with CHF and vasculopath she needs to continue on Plavix Most likely will need repeated blood tests and transfusions as outpatient and if goal is 9 much less likely to need ER and further admissions (3) Abnormal CT of the abdomen: Plan: CEA only minimally above normal Concern for mass on CT but suspected to just be residual from colon ischemia per GI - 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 CXR improved (6) DM (diabetes mellitus): Plan: Hemoglobin A1C 6.2 in August, no need to repeat Hold glimepiride Lantus 0-5 units BID with glucose 120 as cut off Novolog: --Goal BSG Range: Low 110 mg/dL, High 140 mg/dL --Correction Factor: 45 mg/dL/unit --Carbohydrate ratio = 15 g/unit --BSGs ACHS if eating, q6h if npo Pharmacy consulted for ongoing changes (7) CAD (coronary artery disease): Plan: Restart Plavix in AM Continue carvedilol, Entresto and atorvastatin (8) S/P TAVR (transcatheter aortic valve replacement): (9) PAD (peripheral artery disease): Plan: Currently no acute concerns regarding this s/p 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 Plan VTE Prophylaxis - chemical contraindicated Diet - T2DM Disposition - admit to med/tele Admission and Anticipated Discharge Date Admission Date: November 01, 2022 Subjective No new bright red blood in stool. No abdominal pain, dizziness, chest pain or lightheadedness. Off oxygen when seen in the afternoon. No shortness of breath. Continues to have a dry cough. No known CATRACHO however hypoxia appears to be worse in the mornings Review of Systems Review of Systems: All systems reviewed & are unremarkable except as noted in HPI & below Physical Exam Constitutional: WD/WN, vitals as above no acute distress Respiratory: normal respiratory effort, lungs clear to auscultation Cardiovascular: RRR, no murmur, no edema Gastrointestinal (Abdomen): normal bowel sounds, soft, nontender, no hepatosplenomegaly Musculoskeletal: Extremities: no cyanosis and no clubbing Skin: no rashes, warm and dry Psychiatric: Orientation: alert and oriented x 3 Results & Data Results & Data Vital Signs (Past 12 Hours) Vital Signs Temp Pulse Pulse Resp BP BP BP 11/03/22 16:07 36.8 C 55 L 20 175/64 H 171/68 H 11/03/22 14:07 55 L 11/03/22 11:16 36.6 C 58 L 18 166/61 H 11/03/22 10:56 36.6 C 58 L 18 156/61 H 11/03/22 09:56 36.6 C 58 L 18 148/79 H 11/03/22 08:56 36.5 C 58 L 18 148/67 H 11/03/22 08:26 36.6 C 68 18 151/71 H 11/03/22 08:11 36.5 C 59 L 18 150/63 H 11/03/22 08:09 37 C 61 20 165/66 H 11/03/22 07:51 36.8 C 62 20 162/68 H 11/03/22 07:44 11/03/22 07:40 36.9 C 62 20 153/63 H 11/03/22 07:01 64 Pulse Ox O2 Del Method O2 Flow Rate 11/03/22 16:07 92 Room Air 11/03/22 14:07 11/03/22 11:16 90 11/03/22 10:56 92 11/03/22 09:56 91 11/03/22 08:56 96 11/03/22 08:26 95 2 11/03/22 08:11 97 1 11/03/22 08:09 95 3 11/03/22 07:51 97 3 11/03/22 07:44 Nasal Cannula 3 11/03/22 07:40 90 Room Air 2 11/03/22 07:01 PG Care Time/CCT Total # of Minutes Spent Total Time Spent with Patient: Total time spent is greater than 50% in coordination of care (as documented) at patient's floor/unit and/or counseling patient: Coding Level of Care Code 47694 SUB INP/OBS CARE 2/35MIN Diagnoses Acute GI bleeding K92.2 Acute blood loss anemia D62 Abnormal CT of the abdomen R93.5 Hypoxia R09.02 (HFpEF) heart failure with preserved ejection fraction I50.30 DM (diabetes mellitus) E11.9 CAD (coronary artery disease) I25.10 S/P TAVR (transcatheter aortic valve replacement) Z95.2 PAD (peripheral artery disease) I73.9
[2022-11-03 18:27] LABS: Hemoglobin 11.1 g/dl (12.0-16.0); Mean Corpuscular Hemoglobin 27.7 pg (25.0-34.0); Mean Corpuscular Hgb Conc 32.6 g/dL (32.0-36.0); Mean Corpuscular Volume 84.8 fL (80.0-100.0); Mean Platelet Volume 11.2 fL (9.4-12.4); Platelet Count 306 K/uL (130-400); RDW Coefficient of Variation 18.4 % (11.5-14.5); RDW Standard Deviation 54.5 fL (36.4-46.3); Red Blood Count 4.01 M/uL (4.20-5.40); White Blood Count 7.78 K/ul (4.8-10.8)
[2022-11-03 18:40] LABS: BUN Creatinine Ratio 23.1 (10-20); Calcium 8.8 mg/dl (8.6-10.3); Creatinine Clr Calc Pharmacy 20.4 ml/min; Est GFR (African American) 26.8 ml/min; Est GFR (Non-African American) 23.1 ml/min; Potassium 4.8 mmol/L (3.5-5.1)
[2022-11-04 07:34] LABS: Hematocrit (blood only) 32.6 % (37.0-47.0); Hemoglobin 10.7 g/dl (12.0-16.0); Mean Corpuscular Hemoglobin 27.4 pg (25.0-34.0); Mean Corpuscular Hgb Conc 32.8 g/dL (32.0-36.0); Mean Corpuscular Volume 83.6 fL (80.0-100.0); Mean Platelet Volume 10.9 fL (9.4-12.4); Platelet Count 298 K/uL (130-400); RDW Standard Deviation 53.9 fL (36.4-46.3); White Blood Count 5.84 K/ul (4.8-10.8)
[2022-11-04 07:50] LABS: BUN Creatinine Ratio 23.1 (10-20); Calcium 8.9 mg/dl (8.6-10.3); Creatinine Clr Calc Pharmacy 20.4 ml/min; Est GFR (African American) 26.8 ml/min; Est GFR (Non-African American) 23.1 ml/min; Potassium 4.4 mmol/L (3.5-5.1)
[2022-11-04] MEDS: CLOPIDOGREL BISULFATE 75 MG TAB PO SCH (08:25)
[2022-11-04] MEDS: VALSARTAN/SACUBITRIL 26/24MG TAB PO SCH (08:26)
[2022-11-04] MEDS: SPIRONOLACTONE 25 MG TAB PO SCH (08:26)
[2022-11-04] MEDS: AMIODARONE 200 MG TAB PO SCH (08:26)
[2022-11-04] MEDS: BENZONATATE 100 MG CAPSULE PO SCH ×3 (08:26→21:14)
[2022-11-04] MEDS: ATORVASTATIN 40 MG TAB PO SCH (08:26)
[2022-11-04] MEDS: hydrALAZINE TAB 50 MG TAB PO SCH ×3 (08:27→21:15)
[2022-11-04] MEDS: amLODIPine BESYLATE 5 MG TAB PO SCH ×2 (08:27→21:14)
[2022-11-04] MEDS: PANTOprazole 40 MG TAB PO SCH ×2 (08:27→21:16)
[2022-11-04] MEDS: carvediloL 6.25 MG TAB PO SCH ×2 (08:27→21:15)
[2022-11-04] MEDS: INSULIN ASPART PER UNIT CHARGE SC SCH ×4 (08:31→21:16)
--- NOTE | 2022-11-04 09:13 | Hospitalist Progress Note ---
Date of Service November 04, 2022 Assessment & Plan (1) Acute GI bleeding: Plan: Bright red blood in stool therefore not placed on PPI Restarted Plavix this AM GI recommendations to keep outpatient follow up and continue supportiv care measures (2) Acute blood loss anemia: Plan: Hgb now appears stable and no further active GI bleeding Likely to continue to bleed in patient with CHF and vasculopath she needs to continue on Plavix Most likely will need repeated blood tests and transfusions as outpatient and if goal is 9 much less likely to need ER and further admissions Repeat in AM (3) Abnormal CT of the abdomen: Plan: CEA only minimally above normal Concern for mass on CT but suspected to just be residual from colon ischemia per GI - 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 CXR improved (6) DM (diabetes mellitus): Plan: Hemoglobin A1C 6.2 in August, no need to repeat Hold glimepiride Lantus 0-5 units BID with glucose 120 as cut off Novolog: --Goal BSG Range: Low 110 mg/dL, High 140 mg/dL --Correction Factor: 45 mg/dL/unit --Carbohydrate ratio = 15 g/unit --BSGs ACHS if eating, q6h if npo Pharmacy consulted for ongoing changes (7) CAD (coronary artery disease): Plan: Continue Plavix and continue to monitor Hgb Continue carvedilol, Entresto and atorvastatin (8) PAD (peripheral artery disease): Plan: Currently no acute concerns regarding this s/p 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 follows with [facility] at [facility] (9) LEV (acute kidney injury): Plan: Likely multifactoral with hx of ATN (follows with Dr Benz), ABLA, age, acute/chronic HFpEF Cr baseline 1.2, was 1.74 on admission and currently up to 1.9 Will continue to monitor in AM Will hold Entresto Plan VTE Prophylaxis - currently back on Plavix Diet - T2DM Disposition - admit to med/tele Admission and Anticipated Discharge Date Admission Date: November 01, 2022 Subjective Patient is awake and sitting up in bed this morning. She states she had 2 BMs yesterday that were formed and brown with no further bleeding. Her Plavix was restarted this AM. I spoke with her daughter via the phone and she and the patient would like to stay one more day to be sure she is fine with no further bleeding on the Plavix. Review of Systems Review of Systems: All ROS reviewed and were negative unless stated + in the HPI above. Physical Exam Constitutional: well developed and well nourished; no acute distress ENMT: external ear and nose normal, oropharynx normal Neck: trachea midline, no thyromegaly Respiratory: normal respiratory effort, lungs clear to auscultation Cardiovascular: RRR, no murmur, no edema Gastrointestinal (Abdomen): normal bowel sounds, soft, nontender, no hepatosplenomegaly Skin: no rashes, warm and dry Neurologic: PERRL, EOMI, accommodation nl, no face palsy, no dysarthria Psychiatric: A+Ox3, euthymic affect Results & Data Results & Data Vital Signs (Past 12 Hours) Vital Signs Temp Pulse Pulse Resp BP BP Pulse Ox 11/04/22 08:45 11/04/22 07:35 36.8 C 62 16 182/63 H 91 11/04/22 06:57 56 L 11/04/22 03:42 37 C 55 L 16 134/61 90 11/03/22 23:36 36.9 C 54 L 18 145/62 H 94 11/03/22 22:02 58 L 11/03/22 22:18 O2 Del Method O2 Flow Rate 11/04/22 08:45 Room Air 11/04/22 07:35 Room Air 11/04/22 06:57 11/04/22 03:42 Nasal Cannula 2 11/03/22 23:36 Nasal Cannula 2 11/03/22 22:02 11/03/22 22:18 Nasal Cannula 2 Laboratory Results Abnormal lab results 11/03/22 11/03/22 11/03/22 Range/Units 17:37 17:37 20:49 RBC 4.01 L (4.20-5.40) M/uL Hgb 11.1 L (12.0-16.0) g/dl Hct 34.0 L (37.0-47.0) % RDW Std Deviation 54.5 H (36.4-46.3) fL RDW Coeff of Alysa 18.4 H (11.5-14.5) % Sodium 133 L (136-145) mmol/L BUN 46 H (6-23) mg/dl Creatinine 1.99 H (0.6-1.2) mg/dl BUN/Creatinine Ratio 23.1 H (10-20) Glucose 112 H (70-99(Fasting)) mg/dl POC Glucose 178 H (70-99) mg/dl 11/04/22 11/04/22 11/04/22 Range/Units 07:20 07:20 07:39 RBC 3.90 L (4.20-5.40) M/uL Hgb 10.7 L (12.0-16.0) g/dl Hct 32.6 L (37.0-47.0) % RDW Std Deviation 53.9 H (36.4-46.3) fL RDW Coeff of Alysa 18.0 H (11.5-14.5) % Sodium 134 L (136-145) mmol/L BUN 46 H (6-23) mg/dl Creatinine 1.99 H (0.6-1.2) mg/dl BUN/Creatinine Ratio 23.1 H (10-20) Glucose (70-99(Fasting)) mg/dl POC Glucose 107 H (70-99) mg/dl 11/04/22 Range/Units 11:53 RBC (4.20-5.40) M/uL Hgb (12.0-16.0) g/dl Hct (37.0-47.0) % RDW Std Deviation (36.4-46.3) fL RDW Coeff of Alysa (11.5-14.5) % Sodium (136-145) mmol/L BUN (6-23) mg/dl Creatinine (0.6-1.2) mg/dl BUN/Creatinine Ratio (10-20) Glucose (70-99(Fasting)) mg/dl POC Glucose 185 H (70-99) mg/dl PG Care Time/CCT Total # of Minutes Spent Total Time Spent with Patient: Total time spent is greater than 50% in coordination of care (as documented) at patient's floor/unit and/or counseling patient: Coding Level of Care Code 10572 SUB INP/OBS CARE 2/35MIN Diagnoses Acute GI bleeding K92.2 Acute blood loss anemia D62 Abnormal CT of the abdomen R93.5 Hypoxia R09.02 (HFpEF) heart failure with preserved ejection fraction I50.30 DM (diabetes mellitus) E11.9 CAD (coronary artery disease) I25.10 PAD (peripheral artery disease) I73.9 LEV (acute kidney injury) N17.9
--- NOTE | 2022-11-04 09:14 | Gastroenterology Progress Note ---
Supervising physician's note Discussed case and plan of care with Michelle Scott NP. Reviewed records as well Nothing further to add from GI standpoint. Do not plan colonoscopy at this ti me. Will follow in the outpatient clinic. Will sign off. Please reconsult if we can be of assistance. Robyn Kirkland Jr, MD, [facility] [place] Date of Service November 04, 2022 Assessment & Plan (1) Abnormal CT of the abdomen: Plan: GI bleeding: Patient had acute GI bleeding requiring transfusion. Doing well from GI standpoint. She is known to the our outpatient clinic and will help arrange follow-up at discharge. Continue supportive care measures. Case reviewed with Dr. Kirkland. Please refer to supervising physician addendum for further recommendations. I have spent 15 minutes of discrete time performing the activities of this visit which include but are not limited to review of the medical record, obtaining a history, physical exam, and entering information in the electronic record. Admission and Anticipated Discharge Date Admission Date: November 01, 2022 Subjective Patient is doing well this morning sitting position of comfort at her bedside. Reports that she has no GI complaints this morning. Her stools are now brown. No abdominal pain, nausea, vomiting. Review of Systems Review of Systems: All systems reviewed & are unremarkable except as noted in Subjective Physical Exam Gastrointestinal (Abdomen): normal bowel sounds, soft, nontender, no hepatosplenomegaly Results & Data Vital Signs (Past 12 Hours) Vital Signs Temp Pulse Pulse Resp BP BP Pulse Ox 11/04/22 08:45 11/04/22 07:35 36.8 C 62 16 182/63 H 91 11/04/22 06:57 56 L 11/04/22 03:42 37 C 55 L 16 134/61 90 11/03/22 23:36 36.9 C 54 L 18 145/62 H 94 11/03/22 22:02 58 L 11/03/22 22:18 O2 Del Method O2 Flow Rate 11/04/22 08:45 Room Air 11/04/22 07:35 Room Air 11/04/22 06:57 11/04/22 03:42 Nasal Cannula 2 11/03/22 23:36 Nasal Cannula 2 11/03/22 22:02 11/03/22 22:18 Nasal Cannula 2 Laboratory Results Laboratory Results - last 24 hr 11/03/22 11/03/22 11/03/22 11:28 16:46 17:37 WBC 7.78 RBC 4.01 L Hgb 11.1 L Hct 34.0 L MCV 84.8 MCH 27.7 MCHC 32.6 RDW Std Deviation 54.5 H RDW Coeff of Alysa 18.4 H Plt Count 306 MPV 11.2 Sodium Potassium Chloride Carbon Dioxide Anion Gap BUN Creatinine Est Cr Clr Drug Dosing Est GFR ( Amer) Est GFR (Non-Af Amer) BUN/Creatinine Ratio Glucose POC Glucose 179 H 92 Calcium 11/03/22 11/03/22 11/04/22 17:37 20:49 07:20 WBC 5.84 RBC 3.90 L Hgb 10.7 L Hct 32.6 L MCV 83.6 MCH 27.4 MCHC 32.8 RDW Std Deviation 53.9 H RDW Coeff of Alysa 18.0 H Plt Count 298 MPV 10.9 Sodium 133 L Potassium 4.8 Chloride 103 Carbon Dioxide 22 Anion Gap 8 BUN 46 H Creatinine 1.99 H Est Cr Clr Drug Dosing 20.4 Est GFR ( Amer) 26.8 Est GFR (Non-Af Amer) 23.1 BUN/Creatinine Ratio 23.1 H Glucose 112 H POC Glucose 178 H Calcium 8.8 11/04/22 11/04/22 07:20 07:39 WBC RBC Hgb Hct MCV MCH MCHC RDW Std Deviation RDW Coeff of Alysa Plt Count MPV Sodium 134 L Potassium 4.4 Chloride 104 Carbon Dioxide 23 Anion Gap 7 BUN 46 H Creatinine 1.99 H Est Cr Clr Drug Dosing 20.4 Est GFR ( Amer) 26.8 Est GFR (Non-Af Amer) 23.1 BUN/Creatinine Ratio 23.1 H Glucose 96 POC Glucose 107 H Calcium 8.9
--- NOTE | 2022-11-04 11:08 | Pharmacy Report ---
Pharmacy Glycemic Short Note 2 - Date of Service November 04, 2022 - Glycemic Short BSG Results (Last 24 hours): 11/03/22 11/03/22 11/03/22 11:28 16:46 17:37 Glucose 112 H POC Glucose 179 H 92 11/03/22 11/04/22 11/04/22 20:49 07:20 07:39 Glucose 96 POC Glucose 178 H 107 H OUTPATIENT ANTIDIABETIC REGIMEN: * Glimepiride 4 mg PO BID * Metformin 1000 mg PO BID HbA1c = 6.2% on 09/21/22 ASSESSMENT: 11/04 * Patient received total fo 15 units of insulin yesterday, of which 5 units were basal insulin * Fasting BSG 96 mg/dL - lower end of goal for patient. Plan to hold basal today and use only correctional insulin 11/02 * 82 y/o F admitted for GI bleed yesterday. Patient with history of Type 2 diabetes managed at home on two oral anti-diabetic meds. * Holding oral anti-diabetic meds on admission and utilizing basal and bolus insulins for glycemic management. * Patient was NPO until this morning but diet ordered with lunch. Novolog parameters based on stress of 2. * Fasting BSG this AM was 140 mg/dl. Basal insulin held. Will reassess basal dose tomorrow. * Pre-lunch BSG = 149 mg/dl. Novolog CR loosened slightly. PLAN FOR INPATIENT GLYCEMIC CONTROL: * Hold outpatient oral diabetes medications * Basal insulin * on hold * Bolus insulin * NovoLog per scale ACHS or Q6hrs while NPO * Goal Range: Low 120 mg/dL - High 150 mg/dL * Correction Factor: 40 mg/dL/unit * Nutritional / Prandial insulin per carb ratio of 1 unit per 11 grams CHO consumed
[2022-11-04] MEDS: DEXTROMETHORPHAN POLYMR COMPLX 30 MG/5 ML UDP PO PRN ×2 (11:28→23:29)
[2022-11-05 08:19] LABS: Hematocrit (blood only) 33.3 % (37.0-47.0); Mean Corpuscular Hemoglobin 27.6 pg (25.0-34.0); Mean Corpuscular Volume 83.5 fL (80.0-100.0); Mean Platelet Volume 11.5 fL (9.4-12.4); Platelet Count 339 K/uL (130-400); RDW Coefficient of Variation 17.3 % (11.5-14.5); RDW Standard Deviation 52.3 fL (36.4-46.3); Red Blood Count 3.99 M/uL (4.20-5.40); White Blood Count 6.06 K/ul (4.8-10.8)
[2022-11-05] MEDS: ATORVASTATIN 40 MG TAB PO SCH (08:20)
[2022-11-05] MEDS: PANTOprazole 40 MG TAB PO SCH (08:20)
[2022-11-05] MEDS: SPIRONOLACTONE 25 MG TAB PO SCH (08:20)
[2022-11-05] MEDS: CLOPIDOGREL BISULFATE 75 MG TAB PO SCH (08:20)
[2022-11-05] MEDS: amLODIPine BESYLATE 5 MG TAB PO SCH (08:21)
[2022-11-05] MEDS: carvediloL 6.25 MG TAB PO SCH (08:21)
[2022-11-05] MEDS: hydrALAZINE TAB 50 MG TAB PO SCH ×2 (08:21→13:35)
[2022-11-05] MEDS: AMIODARONE 200 MG TAB PO SCH (08:21)
[2022-11-05] MEDS: BENZONATATE 100 MG CAPSULE PO SCH ×2 (08:25→13:36)
[2022-11-05] MEDS: INSULIN ASPART PER UNIT CHARGE SC SCH ×2 (08:25→12:08)
[2022-11-05 08:28] LABS: BUN Creatinine Ratio 28.5 (10-20); Calcium 8.9 mg/dl (8.6-10.3); Creatinine Clr Calc Pharmacy 22.8 ml/min; Est GFR (African American) 30.5 ml/min; Est GFR (Non-African American) 26.3 ml/min; Potassium 4.4 mmol/L (3.5-5.1)
[2022-11-05] MEDS: DEXTROMETHORPHAN POLYMR COMPLX 30 MG/5 ML UDP PO PRN (11:24)
--- NOTE | 2022-11-05 13:28 | Discharge Summary ---
Date of Service November 05, 2022 Admission HPI Per Admitting Provider Adri Gould is an 82 year old female with extensive history of cardiovascular disease who presents to the ER with 2 days of bright red blood in stool. She denies any abdominal pain, nausea or vomiting. She was recently admitted to [facility] September 20 - October 06, 2022 due to ischemic colitis and congestive heart failure. This was treated conservatively and recommended to follow up with vascular surgery at [facility]. She denies any abdominal pain since discharge. During that hospitalization she did have a lower GI bleed and was transfused 2 units of packed RBCs however this was while on a heparin drip. She is currently on Plavix alone. She denies any chest pain, shortness of breath or dizziness from the anemia. Admission Exam Per Admitting Provider Constitutional: WD/WN, vitals as above Respiratory: normal respiratory effort, lungs clear to auscultation Cardiovascular: Rate/Rhythm: regular rate and regular rhythm Extremities: normal capillary refill and + pedal edema; no calf tenderness Gastrointestinal (Abdomen): normal bowel sounds, soft, nontender, no hepatosplenomegaly Musculoskeletal: no cyanosis or clubbing, extremities motor strength 5/5 Skin: no rashes, warm and dry Neurologic: moves all extremities and awake; not confused Psychiatric: A+Ox3, euthymic affect Principal Diagnosis ABLA secondary to GIB Ischemic colitis LEV Discharge Exam Constitutional well developed and well nourished; no acute distress ENMT external ear and nose normal, oropharynx normal Neck trachea midline, no thyromegaly Respiratory normal respiratory effort, lungs clear to auscultation Cardiovascular RRR, no murmur, no edema Gastrointestinal (Abdomen) normal bowel sounds, soft, nontender, no hepatosplenomegaly Skin no rashes, warm and dry Neurologic PERRL, EOMI, accommodation nl, no face palsy, no dysarthria Psychiatric A+Ox3, euthymic affect Discharge Data Allergies Allergy/AdvReac Type Severity Reaction Status Date / Time fenofibrate AdvReac Intermediate INCREASED Verified 11/01/22 20:39 URINATION metoprolol AdvReac Intermediate VOMIT,DIARR Verified 11/01/22 20:39 HEA valsartan AdvReac Intermediate Weakness Verified 11/01/22 20:39 verapamil AdvReac Intermediate INCREASED Verified 11/01/22 20:39 URINATION Consultations 11/01/22 17:55 ED Decision to Admit Stat 11/01/22 20:40 Consult Gastroenterology Routine Ordered Studies 11/01/22 18:47 CT Abd and Pelvis [CT abd pelvis IV con only] Stat Hospital Course (1) Acute GI bleeding: Bright red blood in stool therefore not placed on PPI Restarted Plavix 11/04/22 GI recommendations to keep outpatient follow up and continue supportive care measures (2) Acute blood loss anemia: Hgb now appears stable and no further active GI bleeding today was 11 Likely to continue to bleed in patient with CHF and vasculopath she needs to continue on Plavix Most likely will need repeated blood tests and transfusions as outpatient and if goal is 9 much less likely to need ER and further admissions (3) Abnormal CT of the abdomen: CEA only minimally above normal Concern for mass on CT but suspected to just be residual from colon ischemia per GI - patient will follow up with [place] vascular surgery regarding ischemia colitis Also per GI had colo within the past 1 year (4) Hypoxia: Aim O2 sats > 90%, now on room air (5) (HFpEF) heart failure with preserved ejection fraction: Acute on chronic HFpEF Improving, currently on RA and saturating well Suspect mild hypervolemia related to blood transfusions Lasix increased to 40mg PO BID yesterday causing, but now with mild Cr bump - Lasix on hold. CXR improved (6) DM (diabetes mellitus): Hemoglobin A1C 6.2 in August, no need to repeat Hold glimepiride Lantus 0-5 units BID with glucose 120 as cut off Novolog: --Goal BSG Range: Low 110 mg/dL, High 140 mg/dL --Correction Factor: 45 mg/dL/unit --Carbohydrate ratio = 15 g/unit --BSGs ACHS if eating, q6h if npo Pharmacy consulted for ongoing changes (7) CAD (coronary artery disease): Continue Plavix and continue to monitor Hgb Continue carvedilol, Entresto and atorvastatin Entresto held for 2 days for renal functions (8) PAD (peripheral artery disease): Currently no acute concerns regarding this s/p 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 follows with Vascular at [facility] (9) LEV (acute kidney injury): Likely multifactoral with hx of ATN (follows with Dr Benz), ABLA, age, acute/chronic HFpEF Cr baseline 1.2, was 1.74 on admission was up to 1.9, then held entresto and Cr improved to 1.7 Patient to get repeat BMP in 1 week Plan VTE Prophylaxis - currently back on Plavix Diet - T2DM Disposition discharge to home under care of her daughter Total Time Total Time Spent Total Time Spent (In Minutes): 40 Discharge Plan Discharge Items Patient Disposition: Home - Self-Care Reason For Visit: ACUTE GI BLEED Discharge Diagnosis: ischemic colitis/ ABLA Activity: Resume your previous activity Weightbearing: Full weightbearing Non-emergency contact: Primary Care Provider Call non-emergency contact if: you have any medication questions and your symptoms worsen Follow-up/Referrals: Tiara Ochoa PA-C [Primary Care Provider] - Diet: Carb Consistent or DM2 Ambulatory Orders: Basic Metabolic Panel (Routine) Timeframe: 1 Week Location: Determined by Patient Ordered By: Mayra Bangura Complete Blood Count no Diff (Routine) Timeframe: 1 Week Location: Determined by Patient Ordered By: Mayra Bangura Addtl Attending Provider Instructions: You were admitted with rectal bleeding and had CT evidence of your ischemic colitis. GI evaluated you and recommended conservative supportive managment and no need for any scopes. Keep outpatient follow up with GI. You should follow up with family doctor in 1 weeks you will need blood work also in 5 -7 days Pending Studies at Discharge: No Stand-Alone Forms: My [facility] Medications and DC Order Prescriptions: Continued [place] 3-6-9 1,200 mg Capsule 1 cap PO QDD amiodarone 200 mg tablet 200 mg PO QAM pantoprazole 40 mg tablet,delayed release (DR/EC) 40 mg PO BID glimepiride 4 mg tablet 4 mg PO BID furosemide 40 mg Tablet 40 mg PO QAM Qty: 30 0RF carvedilol 6.25 mg Tablet 6.25 mg PO BID Qty: 60 0RF magnesium oxide 400 mg (241.3 mg magnesium) tablet 400 mg PO BID Qty: 60 0RF Rx Instructions: OTC spironolactone 25 mg tablet 25 mg PO QAM Entresto 24-26 mg tablet 1 tab PO BID hydralazine 100 mg tablet 50 mg PO TID Qty: 30 0RF clopidogrel 75 mg tablet 75 mg PO DAILY multivitamin Tablet 1 tab PO QAM atorvastatin 40 mg Tablet 40 mg PO QAM amlodipine 10 mg tablet 10 mg PO BID Discharge Orders: Discharge Order (Routine); Ordered 11/05/22 Ordered By: Mayra Bangura Admission Data Admit Date/Time: 11/01/22 19:59 Attending Provider: Barry De Luna Admit Provider: Vlad Thompson Primary Care Provider: Tiara Ochoa Other Providers: Vlad Thompson ; Robyn Kirkland Jr Other Interventions: Discharge Summary Assessment (RN) Last Done: 11/05/22 13:51 Coding Level of Care Code 53457 INP/OBS DISCH >30 MIN Diagnoses Acute GI bleeding K92.2 Acute blood loss anemia D62 Abnormal CT of the abdomen R93.5 Hypoxia R09.02 (HFpEF) heart failure with preserved ejection fraction I50.30 DM (diabetes mellitus) E11.9 CAD (coronary artery disease) I25.10 PAD (peripheral artery disease) I73.9 LEV (acute kidney injury) N17.9 Time Spent (min) 35
== END 2022-11-05 15:40 | disposition home or self-care (01) | DRG 377 ==
LOC: ED 16:02 → 2N 19:59 → SUATTDRO 19:59 → 2N 21:35

== ENCOUNTER 2023-01-01 09:40 | Inpatient (IN) ==
[2023-01-01] MEDS ORDERED: FUROSEMIDE 40 MG/4 ML VIAL IV ONE (10:00)
--- NOTE | 2023-01-01 10:11 | Emergency Department Note ---
History of Present Illness General Chief complaint: Shortness of Breath/Dyspnea Stated complaint: SOB, Time Seen by Provider: 01/01/23 09:50 History of Present Illness 82-year-old female with a history of aortic valve replacement currently on Plavix, with a history of congestive heart failure, presents with a 2-day history now of increased shortness of breath, dyspnea on exertion and swelling to the bilateral extremities left greater than right which is typical for her. Patient's daughter is at bedside providing history that her pulse ox yesterday was down at 88 to 89%. Patient's had increased work of breathing for the past day. Patient denies hemoptysis denies chest pain denies pleuritic chest pain d enies fever. Denies cough. There are no other mitigating or alleviating factors Home Medications Medication Instructions Recorded Confirmed Type fish, borage, flaxseed oils-omega 1 cap PO QDD 12/01/20 01/01/23 History 3,6,9 comb no.1 1,200 mg capsule ([place] 3-6-9) atorvastatin 40 mg tablet 40 mg PO QAM 02/26/21 01/01/23 History multivitamin 1 tab PO QAM 02/26/21 01/01/23 History amiodarone 200 mg tablet 200 mg PO QAM 07/01/21 01/01/23 History pantoprazole 40 mg tablet,delayed 40 mg PO BID 07/01/21 01/01/23 History release glimepiride 4 mg tablet 4 mg PO BID 12/21/21 01/01/23 History carvedilol 6.25 mg tablet 6.25 mg PO BID #60 tabs 12/27/21 01/01/23 Rx magnesium oxide 400 mg (241.3 mg 400 mg PO BID #60 tabs 12/27/21 01/01/23 Rx magnesium) tablet amlodipine 10 mg tablet 10 mg PO BID 06/20/22 01/01/23 History sacubitril 24 mg-valsartan 26 mg 1 tab PO BID 09/20/22 01/01/23 History tablet (Entresto) spironolactone 25 mg tablet 25 mg PO QAM 09/20/22 01/01/23 History hydralazine 100 mg tablet 50 mg PO TID #30 tabs 10/06/22 01/01/23 Rx clopidogrel 75 mg tablet 75 mg PO DAILY 11/01/22 01/01/23 History furosemide 40 mg tablet 40 mg PO DIRECTED 01/01/23 01/01/23 History Allergies Allergy/AdvReac Type Severity Reaction Status Date / Time fenofibrate AdvReac Intermediate INCREASED Verified 11/01/22 20:39 URINATION metoprolol AdvReac Intermediate VOMIT,DIARR Verified 11/01/22 20:39 HEA valsartan AdvReac Intermediate Weakness Verified 11/01/22 20:39 verapamil AdvReac Intermediate INCREASED Verified 11/01/22 20:39 URINATION Past Med/Surg History Medical History (Updated 01/01/23 @ 12:22 by Raymond Nichole MD) Acute non-ST elevation myocardial infarction (NSTEMI) Acute on chronic heart failure with preserved ejection fraction (HFpEF) LEV (acute kidney injury) Anemia Bradycardia CAD (coronary artery disease) CVA (cerebral vascular accident) (~2019) no deficits Elevated troponin Hyperkalemia Hyperlipemia Hyponatremia Hypoxia Myocardial infarct, old follows with Dr. Mcpherson Occlusion of right iliac artery PAD (peripheral artery disease) Pneumonia hx S/P angiogram of extremity (02/02/21) Type 2 diabetes mellitus with diabetic neuropathy, unspecified NIDDM Surgical History H/O removal of cyst right abdominal area History of bunionectomy of right great toe History of cardiac cath (~2018) History of heart artery stent (~2018) x1. at [facility]. Status post ORIF of fracture of ankle Family History Other No family history of adverse response to anesthesia Social History Smoking Status: Former smoker Tobacco Type: Cigarettes Cigarettes Per Day: 1 Pack; Second Hand Exposure: Yes; Do You Dip or Chew Tobacco: No; Hx Alcohol Use: Yes Alcohol type: other Hx Substance Use: No Preferred Language: [place] Communication Ability: Effective Communication Ability Comment: difficulty comprehending at times - dtr, Mamie is typically her caregiver Cardiopulmonary Specialist Required: No Beliefs That Will Affect Care: None marital status: / Current Living Situation: Family Current Living Situation Comment: currently moving in with daughter current occupational status: retired How many Children do You have: 1 Feels Safe at Home: Yes Assistive Devices: Walker Review of Systems A total of 10 systems reviewed and were otherwise negative Respiratory: + dyspnea and + dyspnea on exertion Physical Exam Vital Signs Vital Signs - 24 hr 01/01/23 09:44 01/01/23 10:26 01/01/23 10:59 Temperature 36.7 C Temperature Source Temporal Artery Scan Pulse Rate 55 L 51 L Pulse Rate [Left Apical] 51 L Pulse Rhythm [Left Apical] Regular Pulse Strength [Left Apical] Normal Respiratory Rate 14 20 Respiratory Effort / Characteristics Non-Labored Spontaneous Respiratory Depth Normal Blood Pressure 163/54 H Blood Pressure [Left Arm] 149/73 H Blood Pressure Mean 90 Blood Pressure Mean [Left Arm] 98 Pulse Oximetry 93 91 Oxygen Delivery Method Room Air Room Air Oxygen Flow Rate Sepsis New/Unexplained Change in Mental Status No Sepsis Action Taken by Nursing No Action Required Oxygen Flow Rate - Titration Pulse Oximetry Post Tiitration 01/01/23 11:22 01/01/23 12:26 Temperature Temperature Source Pulse Rate Pulse Rate [Left Apical] 53 L Pulse Rhythm [Left Apical] Regular Pulse Strength [Left Apical] Normal Respiratory Rate 20 Respiratory Effort / Characteristics Non-Labored Spontaneous Respiratory Depth Normal Blood Pressure Blood Pressure [Left Arm] Blood Pressure Mean Blood Pressure Mean [Left Arm] Pulse Oximetry 85 L 92 Oxygen Delivery Method Room Air Nasal Cannula Oxygen Flow Rate 2 Sepsis New/Unexplained Change in Mental Status Sepsis Action Taken by Nursing Oxygen Flow Rate - Titration 2 Pulse Oximetry Post Tiitration 92 GENERAL: Patient is awake alert in no acute distress patient is resting comfortably and showing no signs of anxiety EYES: The conjunctivae are clear. The pupils are round and reactive. EARS, NOSE, MOUTH AND THROAT: The nose is without any evidence of any deformity. Mucous membranes are moist. Tongue is midline. NECK: The neck is nontender and supple. RESPIRATORY: Increased respiratory effort, speaking in full sentences, crackles bilaterally CARDIOVASCULAR: Regular rate and rhythm noted there no murmurs rubs or gallops normal S1 normal S2. GASTROINTESTINAL: The abdomen is soft. Abdomen is nontender. BACK: No midline tenderness or or step-off noted range of motion in flexion extension as well as rotation no signs of muscle spasm noted MUSCULOSKELETAL/EXTREMITIES: There is no evidence of gross deformity full range of motion is noted in the hips and shoulders. Bilateral lower extremities with pitting edema the left is greater than the right the calf is nontender in the left and the patient states that this is normal to have unequal calf symmetry SKIN: There is no obvious evidence of any rash. There are no petechiae, pallor or cyanosis noted. NEUROLOGIC: Patient is awake alert and oriented x3 strength is symmetric Psych normal affect Course Reevaluation(s) Reevaluation #1: Patient was started on oxygen, given IV Lasix; Time: 11:16 Consultations Consultation #1: Spoke with the [facility]ist for admission, Dr Abernathy Time: 12:24 Administered Medications Discontinued Medications Furosemide (Furosemide 40 Mg/4 Ml Vial) 40 mg IV ONE ONE Stop: 01/01/23 10:01 Last Admin: 01/01/23 10:28 Dose: 40 mg Documented By: TAINA Critical Care Time Critical Care Time: Yes Total Critical Care Time: 35 I have personally spent greater than 35 minutes of critical care time in the direct management of this patient. This includes bedside care, interpretation of diagnostic studies, and testing, discussion with consultants, patient, and family members, and other required patient management activities. These minutes are in excess of all separately billable procedures. Medical Decision Making Medical Records Attestation: I reviewed the patient's medical records. Home Medications Current Medication List: was personally reviewed by me Laboratory Data Attestation: I reviewed the patient's lab results. Lab results interpreted by me patient has anemia, hyperglycemia, elevated creatinine, elevated BNP 01/01/23 10:27 01/01/23 10:27 Lab Results 01/01/23 01/01/23 01/01/23 Range/Units 10:10 10:27 10:27 WBC 7.86 (4.8-10.8) K/ul RBC 3.35 L (4.20-5.40) M/uL Hgb 9.2 L (12.0-16.0) g/dl Hct 29.3 L (37.0-47.0) % MCV 87.5 (80.0-100.0) fL MCH 27.5 (25.0-34.0) pg MCHC 31.4 L (32.0-36.0) g/dL RDW Std Deviation 50.5 H (36.4-46.3) fL RDW Coeff of Alysa 15.9 H (11.5-14.5) % Plt Count 264 (130-400) K/uL MPV 11.9 (9.4-12.4) fL Immature Gran % (Auto) 0.4 % Neut % (Auto) 78.4 % Lymph % (Auto) 9.7 % Bell % (Auto) 7.3 % Eos % (Auto) 3.8 % Baso % (Auto) 0.4 % Neut # (Auto) 6.17 (1.40-6.50) K/uL Lymph # (Auto) 0.76 L (1.2-3.4) K/uL Bell # (Auto) 0.57 (0.11-0.59) K/uL Eos # (Auto) 0.30 (0-0.50) K/uL Baso # (Auto) 0.03 (0-0.2) K/uL Immature Gran # (Auto) 0.03 (0.01-0.20) K/uL PT 11.9 (9.0-12.0) Seconds INR 1.1 (0.9-1.1) APTT 29.1 (21.0-31.0) Seconds PTT Ratio 1.0 Sodium (136-145) mmol/L Potassium (3.5-5.1) mmol/L Chloride (98-107) mmol/L Carbon Dioxide (21-32) mmol/L Anion Gap (3-11) BUN (6-23) mg/dl Creatinine (0.6-1.2) mg/dl Est Cr Clr Drug Dosing ml/min Est GFR ( Amer) ml/min Est GFR (Non-Af Amer) ml/min BUN/Creatinine Ratio (10-20) Glucose (70-99(Fasting)) mg/dl Calcium (8.6-10.3) mg/dl Total Bilirubin (0.2-1.0) mg/dl AST (13-39) U/L ALT (7-52) U/L Alkaline Phosphatase (34-104) U/L Troponin I High Sens (0-14) pg/ml B-Natriuretic Peptide (0-100) pg/ml Total Protein (6.0-8.3) gm/dl Albumin (3.4-5.0) gm/dl Globulin (2.5-4.0) gm/dl Albumin/Globulin Ratio (0.9-2) SARS-CoV-2, RNA, NAAT NEGATIVE (NEGATIVE) 01/01/23 01/01/23 Range/Units 10:27 10:27 WBC (4.8-10.8) K/ul RBC (4.20-5.40) M/uL Hgb (12.0-16.0) g/dl Hct (37.0-47.0) % MCV (80.0-100.0) fL MCH (25.0-34.0) pg MCHC (32.0-36.0) g/dL RDW Std Deviation (36.4-46.3) fL RDW Coeff of Alysa (11.5-14.5) % Plt Count (130-400) K/uL MPV (9.4-12.4) fL Immature Gran % (Auto) % Neut % (Auto) % Lymph % (Auto) % Bell % (Auto) % Eos % (Auto) % Baso % (Auto) % Neut # (Auto) (1.40-6.50) K/uL Lymph # (Auto) (1.2-3.4) K/uL Bell # (Auto) (0.11-0.59) K/uL Eos # (Auto) (0-0.50) K/uL Baso # (Auto) (0-0.2) K/uL Immature Gran # (Auto) (0.01-0.20) K/uL PT (9.0-12.0) Seconds INR (0.9-1.1) APTT (21.0-31.0) Seconds PTT Ratio Sodium 136 (136-145) mmol/L Potassium 4.4 (3.5-5.1) mmol/L Chloride 107 (98-107) mmol/L Carbon Dioxide 23 (21-32) mmol/L Anion Gap 6 (3-11) BUN 38 H (6-23) mg/dl Creatinine 1.50 H (0.6-1.2) mg/dl Est Cr Clr Drug Dosing 29.6 ml/min Est GFR ( Amer) 37.7 ml/min Est GFR (Non-Af Amer) 32.6 ml/min BUN/Creatinine Ratio 25.3 H (10-20) Glucose 269 H (70-99(Fasting)) mg/dl Calcium 9.1 (8.6-10.3) mg/dl Total Bilirubin 0.6 (0.2-1.0) mg/dl AST 13 (13-39) U/L ALT 18 (7-52) U/L Alkaline Phosphatase 100 (34-104) U/L Troponin I High Sens 8.5 (0-14) pg/ml B-Natriuretic Peptide 774 H (0-100) pg/ml Total Protein 6.7 (6.0-8.3) gm/dl Albumin 3.9 (3.4-5.0) gm/dl Globulin 2.8 (2.5-4.0) gm/dl Albumin/Globulin Ratio 1.4 (0.9-2) SARS-CoV-2, RNA, NAAT (NEGATIVE) Imaging Data Attestation: I personally reviewed and interpreted this imaging study as follows: My Impression: Chest x-ray interpreted by me is positive for CHF Radiologist's Impression: Chest X-Ray 01/01/23 09:51 XR chest 1V portable CLINICAL HISTORY: Chest pain, nonspecific. COMPARISON STUDY: Chest radiograph November 03, 2022. Chest CT April 26, 2021. FINDINGS: There is no pneumothorax. There are possible trace bilateral pleural effusions. Interstitial thickening has developed. Bilateral hilar prominence is noted. This is likely due to pulmonary vasculature. There are mild bibasilar opacities. There are possible patchy upper lobe airspace opacities. Cardiomegaly is noted with prosthetic aortic valve. IMPRESSION: 1. Cardiomegaly with interstitial pulmonary edema. 2. Bibasilar opacities and suspected patchy upper lung opacities. The findings likely reflect alveolar pulmonary edema although a superimposed infectious pr ocess could appear similar. 3. Trace bilateral pleural effusions. ACT 112: Negative or not required by law. Electronically signed by: Levy Farah M.D. 01/01/2023 10:31 AM ECG Data Attestation: I personally reviewed and interpreted this ECG as follows: Additional Comments: EKG interpreted by me sinus bradycardia rate of 55 poor R wave progression the precordium low voltage, no obvious ST segment elevation or depression, QTc is 447 Telemetry was ordered by me, interpreted as sinus bradycardia rate of 55 MDM Narrative Medical decision making differential diagnosis includes CHF, pneumonia, bronchitis, upper respiratory tract infection, anemia, cardiac dysrhythmia Plan is to check labs, EKG, chest x-ray, give IV Lasix, oxygen Independent history was provided to me by the patient's daughter External medical records of prior admissions and discharge summary were reviewed by me Patient has clinical exam suggestive of CHF, elevated BNP, normal troponin and nonischemic EKG, patient was given IV Lasix, patient is on oxygen for hypoxia, patient will be admitted for CHF and hypoxia Impression & Plan Congestive heart failure, Anemia, Hypoxia Discharge Plan Visit Data Chief Complaint: Shortness of Breath/Dyspnea Stated Complaint: SOB, ED Provider: Ivan Castellanos Discharge Problem: Congestive heart failure, Anemia, Hypoxia Patient Disposition: Admitted As Inpatient Forms Stand Alone Forms: My [facility] Prescriptions Prescriptions: No Action [place] 3-6-9 1,200 mg Capsule 1 cap PO QDD amiodarone 200 mg tablet 200 mg PO QAM pantoprazole 40 mg tablet,delayed release (DR/EC) 40 mg PO BID glimepiride 4 mg tablet 4 mg PO BID carvedilol 6.25 mg Tablet 6.25 mg PO BID Qty: 60 0RF magnesium oxide 400 mg (241.3 mg magnesium) tablet 400 mg PO BID Qty: 60 0RF Rx Instructions: OTC spironolactone 25 mg tablet 25 mg PO QAM Entresto 24-26 mg tablet 1 tab PO BID hydralazine 100 mg tablet 50 mg PO TID Qty: 30 0RF clopidogrel 75 mg tablet 75 mg PO DAILY furosemide 40 mg tablet 40 mg PO DIRECTED Rx Instructions: Friday AND FRIDAY multivitamin Tablet 1 tab PO QAM atorvastatin 40 mg Tablet 40 mg PO QAM amlodipine 10 mg tablet 10 mg PO BID Referrals Referrals: Tiara Ochoa PA-C [Primary Care Provider] -
--- NOTE | 2023-01-01 10:33 | XRay Report ---
XR chest 1V portable CLINICAL HISTORY: Chest pain, nonspecific. COMPARISON STUDY: Chest radiograph November 03, 2022. Chest CT April 26, 2021. FINDINGS: There is no pneumothorax. There are possible trace bilateral pleural effusions. Interstitia l thickening has developed. Bilateral hilar prominence is noted. This is likely due to pulmonary vasc ulature. There are mild bibasilar opacities. There are possible patchy upper lobe airspace opacities. Cardiomegaly is noted with prosthetic aortic valve. IMPRESSION: 1. Cardiomegaly with interstitial pulmonary edema. 2. Bibasilar opacities and suspected patchy upper lung opacities. The findings likely reflect alveola r pulmonary edema although a superimposed infectious process could appear similar. 3. Trace bilateral pleural effusions. ACT 112: Negative or not required by law. Electronically signed by: Levy Farah M.D. 01/01/2023 10:31 AM
[2023-01-01 10:50] LABS: Basophils # (auto) 0.03 K/uL (0-0.2); Basophils % (auto) 0.4 %; Eosinophils % (auto) 3.8 %; Hematocrit (blood only) 29.3 % (37.0-47.0); Hemoglobin 9.2 g/dl (12.0-16.0); Immature Granulocytes # (auto) 0.03 K/uL (0.01-0.20); Immature Granulocytes % (auto) 0.4 %; Lymphocytes # (auto) 0.76 K/uL (1.2-3.4); Lymphocytes % (auto) 9.7 %; Mean Corpuscular Hemoglobin 27.5 pg (25.0-34.0); Mean Corpuscular Hgb Conc 31.4 g/dL (32.0-36.0); Mean Corpuscular Volume 87.5 fL (80.0-100.0); Mean Platelet Volume 11.9 fL (9.4-12.4); Monocytes # (auto) 0.57 K/uL (0.11-0.59); Monocytes % (auto) 7.3 %; Neutrophils # (auto) 6.17 K/uL (1.40-6.50); Neutrophils % (auto) 78.4 %; Platelet Count 264 K/uL (130-400); RDW Coefficient of Variation 15.9 % (11.5-14.5); RDW Standard Deviation 50.5 fL (36.4-46.3); Red Blood Count 3.35 M/uL (4.20-5.40); White Blood Count 7.86 K/ul (4.8-10.8)
[2023-01-01 11:10] LABS: Albumin Globulin Ratio 1.4 (0.9-2); Albumin Level 3.9 gm/dl (3.4-5.0); BUN Creatinine Ratio 25.3 (10-20); Bilirubin,Total 0.6 mg/dl (0.2-1.0); Calcium 9.1 mg/dl (8.6-10.3); Creatinine Clr Calc Pharmacy 29.6 ml/min; Est GFR (African American) 37.7 ml/min; Est GFR (Non-African American) 32.6 ml/min; Globulin 2.8 gm/dl (2.5-4.0); Potassium 4.4 mmol/L (3.5-5.1); Total Protein 6.7 gm/dl (6.0-8.3)
[2023-01-01 11:13] LABS: Troponin I High Sensitivity 8.5 pg/ml (0-14)
[2023-01-01 11:16] LABS: INR 1.1 (0.9-1.1); Partial Thromboplastin Time 29.1 Seconds (21.0-31.0); Prothrombin Time 11.9 Seconds (9.0-12.0)
--- NOTE | 2023-01-01 12:28 | History & Physical Report ---
Date of Service January 01, 2023 Assessment & Plan (1) Acute respiratory failure with hypoxia: Plan: Acute hypoxic respiratory failure 2/2 acute on chronic CHF History of heart failure with preserved ejection fraction Clinically volume overloaded.? Dietary indiscretion with recent pizza/mozzarella/pepperoni S/p TAVR CXR: Cardiomegaly with interstitial edema. Bibasilar opacities and patchy upper opacities suspicious for edema although pneumonia cannot be ruled out. Trace bilateral pleural effusion. No leukocytosis COVID-negative BNP elevated at 774, chronically elevated with a minimum recent value around 390 EKG: No acute ST segment changes or T wave changes, sinus rhythm 50s. Initially reported as junctional however consistent small P wave is noted with consistent IA consistent with sinus. High-sensitivity troponin is normal Continue Lasix BID17, target net output approximately 1-1.5 L negative per day, low-salt heart healthy diet. Strict ins and outs. Potassium twice daily ordered with Lasix increase -Plavix continued. Hemoglobin 9.2, normal range approximately 911. Trend daily. -She is not on Eliquis or blood thinner. Does endorse that she has had asymmetrical leg swelling, left leg does seem worse than normal. Will obtain Doppler for rule out. She does not have pleuritic/inspiratory pain Azotemia vs LEV on CKD Baseline creatinine around 1.3, creatinine elevated on admission to 1.50 and clinically volume overload Diurese as noted, trend BMP daily Entresto continued as slight elevation in the setting of congestion/failure, if creatinine up trends that hold this. Spironolactone next due 01/02, will resume then. Hold if LEV rathan than azotemia suspected based on AM labs. Continue Lasix 40 mg IV BID17 Type II DM Glimepiride held Basal bolus insulin Goal [id number] -Glucose checks AC/at bedtime History of A-fib Sinus on admission No longer on anticoagulation due to bleeding Continue amiodarone Monitor on medical/telemetry Recent GI bleeding, thickened cecum noted on CT No hematochezia or melena since last discharge from the hospital, tolerating Plavix well Was pending follow-up with [facility] at the end of this month for repeat colonoscopy. Notified them that she is inpatient at this time, they are aware that unless a urgent concern arises is unlikely that she would have her repeat scope performed while hospitalized and that she has had increased risk of anesthesia complications while in a heart failure exacerbation Hemoglobin is low end of her normal range, will trend daily. 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 Denies complications of this, has vascular follow-up later this month Continue Plavix DVT prophylaxis: SCDs, heparin Diet: Low-salt, DM 2, heart healthy Dispo: Medical telemetry CODE STATUS: Full code (2) Acute on chronic heart failure with preserved ejection fraction (HFpEF): (3) CAD (coronary artery disease): (4) Hyperlipemia: (5) PAD (peripheral artery disease): (6) Paroxysmal atrial fibrillation: (7) Type 2 diabetes mellitus with diabetic neuropathy, unspecified: (8) S/P TAVR (transcatheter aortic valve replacement): History of Present Illness Primary Care Provider: Tiara Ochoa PA-C Adri is an 82-year-old female with a past medical history of heart failure with preserved ejection fraction, DM 2, CAD, PAD, baseline creatinine 1.2, and history of GI bleeding on Plavix who presents the emergency department with 2 days of increasing shortness of breath, dyspnea on exertion, lower extremity swelling and hypoxia on home peripheral pulse ox to 88%. Presents with several days of worsening shortness of breath most notably on exertion. Did have some pizza with pepperoni earlier in the week, otherwise denies salted meat/soup/chips/high salt intake. Reports she is taking all of her medications as directed, last took these this morning +Sob, dry nonproductive cough + LLE swelling, improves in morning but does not resolve completely after layin gflat. Notes her left leg is usually slightly more swollen than the right, but seems more swollen than normal. She has no pain in her leg. No inspiratory pain +dyspnea on exertion, heart 'poudning' and short of breath with attempted ambulation. Lays flat on her side at night, not sure if it has affected her breathing Denies salt, soup intake. Has had 2x pieces of pepperoni pizza at night prior to swelling onset NO leg pain NO syncope/presyncope No abdominal pain No bloody/black bowel move Medical History: Reviewed Medications: Reviewed Surgical History: Reviewed Family history: Reviewed Allergies: Reviewed Social History: No tobacco, no ETOH Code Status: Full COde Allergies Allergy/AdvReac Type Severity Reaction Status Date / Time fenofibrate AdvReac Intermediate INCREASED Verified 11/01/22 20:39 URINATION metoprolol AdvReac Intermediate VOMIT,DIARR Verified 11/01/22 20:39 HEA valsartan AdvReac Intermediate Weakness Verified 11/01/22 20:39 verapamil AdvReac Intermediate INCREASED Verified 11/01/22 20:39 URINATION Home Medications Medication Instructions Recorded Confirmed Type fish, borage, flaxseed oils-omega 1 cap PO QDD 12/01/20 01/01/23 History 3,6,9 comb no.1 1,200 mg capsule ([place] 3-6-9) atorvastatin 40 mg tablet 40 mg PO QAM 02/26/21 01/01/23 History multivitamin 1 tab PO QAM 02/26/21 01/01/23 History amiodarone 200 mg tablet 200 mg PO QAM 07/01/21 01/01/23 History pantoprazole 40 mg tablet,delayed 40 mg PO BID 07/01/21 01/01/23 History release glimepiride 4 mg tablet 4 mg PO BID 12/21/21 01/01/23 History carvedilol 6.25 mg tablet 6.25 mg PO BID #60 tabs 12/27/21 01/01/23 Rx magnesium oxide 400 mg (241.3 mg 400 mg PO BID #60 tabs 12/27/21 01/01/23 Rx magnesium) tablet amlodipine 10 mg tablet 10 mg PO BID 06/20/22 01/01/23 History sacubitril 24 mg-valsartan 26 mg 1 tab PO BID 09/20/22 01/01/23 History tablet (Entresto) spironolactone 25 mg tablet 25 mg PO QAM 09/20/22 01/01/23 History hydralazine 100 mg tablet 50 mg PO TID #30 tabs 10/06/22 01/01/23 Rx clopidogrel 75 mg tablet 75 mg PO DAILY 11/01/22 01/01/23 History furosemide 40 mg tablet 40 mg PO DIRECTED 01/01/23 01/01/23 History Past Med/Surg History Medical History Acute non-ST elevation myocardial infarction (NSTEMI) Acute on chronic heart failure with preserved ejection fraction (HFpEF) LEV (acute kidney injury) Anemia Bradycardia CAD (coronary artery disease) CVA (cerebral vascular accident) (~2019) no deficits Elevated troponin Hyperkalemia Hyperlipemia Hyponatremia Hypoxia Myocardial infarct, old follows with Dr. Mcpherson Occlusion of right iliac artery PAD (peripheral artery disease) Pneumonia hx S/P angiogram of extremity (02/02/21) Type 2 diabetes mellitus with diabetic neuropathy, unspecified NIDDM Surgical History H/O removal of cyst right abdominal area History of bunionectomy of right great toe History of cardiac cath (~2019) History of heart artery stent (~2019) x1. at [facility] [place]. Status post ORIF of fracture of ankle Family History Other No family history of adverse response to anesthesia Social History Smoking Status: Former smoker Tobacco Type: Cigarettes Cigarettes Per Day: 1 Pack; Second Hand Exposure: Yes; Do You Dip or Chew Tobacco: No; Hx Alcohol Use: Yes Alcohol type: other Hx Substance Use: No Preferred Language: Armenian Communication Ability: Effective Communication Ability Comment: difficulty comprehending at times - Mamie hagen is typically her caregiver Tempering Kiln Tender Required: No Beliefs That Will Affect Care: None marital status: / Current Living Situation: Family Current Living Situation Comment: currently moving in with daughter current occupational status: retired How many Children do You have: 1 Feels Safe at Home: Yes Assistive Devices: Walker Review of Systems Review of Systems: All systems reviewed & are unremarkable except as noted in HPI & below Physical Exam Physical Exam: General: A&Ox3. NAD. Cooperative. HEENT: Atraumatic, normocephalic. Vision/hearing intact. Pulm: Bibasil crackles. Symmetrical chest rise. No increased work of breathing. No respiratory distress. Cardiac: RRR, -mrg. Radial pulses intact and symmetrical. Abdominal: Nontender, nondistended, soft. BS present. Ext: LLR>RLE 2+ edema. SEnsation/strength grossly intact./ Results & Data Results & Data Vital Signs (Past 12 Hours) Vital Signs Temp Pulse Pulse Resp BP BP Pulse Ox 01/01/23 11:22 85 L 01/01/23 10:59 51 L 20 149/73 H 91 01/01/23 10:26 51 L 01/01/23 09:44 36.7 C 55 L 14 163/54 H 93 O2 Del Method 01/01/23 11:22 Room Air 01/01/23 10:59 Room Air 01/01/23 10:26 01/01/23 09:44 Room Air PG Care Time/CCT Total # of Minutes Spent Total Time Spent with Patient: Total time spent is greater than 50% in coordination of care (as documented) at patient's floor/unit and/or counseling patient: Coding Level of Care Code 61460 INT INP/OBS CARE 3/75MIN Diagnoses Acute respiratory failure with hypoxia J96.01 Acute on chronic heart failure with preserved ejection fraction (HFpEF) I50.33 CAD (coronary artery disease) I25.10 Hyperlipemia E78.5 PAD (peripheral artery disease) I73.9 Paroxysmal atrial fibrillation I48.0 Type 2 diabetes mellitus with diabetic neuropathy, unspecified E11.40 S/P TAVR (transcatheter aortic valve replacement) Z95.2
--- NOTE | 2023-01-01 14:24 | Ultrasound Report ---
LEFT LOWER EXTREMITY VENOUS DOPPLER HISTORY: Acute pain and swelling of the left lower extremity LLE swelling COMPARISON STUDY: 10/03/2022 FINDINGS: There is normal compressibility, flow, and augmentation within the left lower extremity felipe p venous system. Subcutaneous edema. IMPRESSION: No DVT within the left lower extremity. ACT 112: Negative or not required by law. Electronically signed by: Abraham Solis M.D. 01/01/2023 2:22 PM
[2023-01-01] MEDS ORDERED: GLUCAGON FOR INJ 1 MG VIAL SQ PRN (15:49)
[2023-01-01] MEDS ORDERED: CARBOHYDRATES FOR HYPOGLYCEMIA PO PRN (15:49)
[2023-01-01] MEDS ORDERED: GLUCOSE 40% GEL 15 GM TUBE PO PRN (15:49)
[2023-01-01] MEDS ORDERED: DEXTROSE 50% 50 ML SYRINGE IV PRN (15:49)
[2023-01-01] MEDS ORDERED: GLUCOSE 10 TAB/TUBE PO PRN (15:49)
[2023-01-01] MEDS: hydrALAZINE TAB 50 MG TAB PO SCH ×2 (18:06→20:37)
[2023-01-01] MEDS: INSULIN ASPART PER UNIT CHARGE SC SCH ×2 (18:11→20:40)
[2023-01-01] MEDS: FUROSEMIDE 40 MG/4 ML VIAL IV SCH (18:11)
[2023-01-01] MEDS: MAGNESIUM OXIDE 400 MG TAB PO SCH (20:37)
[2023-01-01] MEDS: VALSARTAN/SACUBITRIL 26/24MG TAB PO SCH (20:37)
[2023-01-01] MEDS: carvediloL 6.25 MG TAB PO SCH (20:38)
[2023-01-01] MEDS: POTASSIUM CHLORIDE 10 MEQ TABCR PO SCH (20:38)
[2023-01-01] MEDS: amLODIPine BESYLATE 5 MG TAB PO SCH (20:39)
[2023-01-01] MEDS: PANTOprazole 40 MG TAB PO SCH (20:39)
[2023-01-01] MEDS: HEPARIN SOD 5,000 UNIT/0.5 ML VIAL SQ SCH (20:40)
[2023-01-01] MEDS ORDERED: LANTUS PER UNIT CHARGE SQ SCH (21:00)
[2023-01-02 07:15] LABS: Basophils # (auto) 0.04 K/uL (0-0.2); Basophils % (auto) 0.8 %; Eosinophils % (auto) 6.1 %; Hematocrit (blood only) 27.2 % (37.0-47.0); Hemoglobin 8.7 g/dl (12.0-16.0); Immature Granulocytes # (auto) 0.01 K/uL (0.01-0.20); Immature Granulocytes % (auto) 0.2 %; Lymphocytes # (auto) 0.92 K/uL (1.2-3.4); Lymphocytes % (auto) 18.7 %; Mean Corpuscular Volume 87.5 fL (80.0-100.0); Mean Platelet Volume 11.8 fL (9.4-12.4); Monocytes # (auto) 0.49 K/uL (0.11-0.59); Neutrophils # (auto) 3.16 K/uL (1.40-6.50); Neutrophils % (auto) 64.2 %; Platelet Count 250 K/uL (130-400); RDW Coefficient of Variation 15.8 % (11.5-14.5); RDW Standard Deviation 50.4 fL (36.4-46.3); Red Blood Count 3.11 M/uL (4.20-5.40); White Blood Count 4.92 K/ul (4.8-10.8)
[2023-01-02 07:31] LABS: BUN Creatinine Ratio 23.3 (10-20); Calcium 8.9 mg/dl (8.6-10.3); Creatinine Clr Calc Pharmacy 27.4 ml/min; Est GFR (African American) 37.7 ml/min; Est GFR (Non-African American) 32.6 ml/min; Magnesium 2.1 mg/dl (1.7-2.4); Potassium 4.1 mmol/L (3.5-5.1)
[2023-01-02 07:59] LABS: Estimated Average Glucose 137 mg/dl; Hemoglobin A1C 6.4 % (4.5-5.6)
[2023-01-02] MEDS ORDERED: LANTUS PER UNIT CHARGE SQ SCH (09:00)
[2023-01-02] MEDS: INSULIN ASPART PER UNIT CHARGE SC SCH ×4 (09:12→21:00)
[2023-01-02] MEDS: AMIODARONE 200 MG TAB PO SCH (09:14)
[2023-01-02] MEDS: hydrALAZINE TAB 50 MG TAB PO SCH ×3 (09:14→21:52)
[2023-01-02] MEDS: VALSARTAN/SACUBITRIL 26/24MG TAB PO SCH ×2 (09:15→21:52)
[2023-01-02] MEDS: MAGNESIUM OXIDE 400 MG TAB PO SCH ×2 (09:15→21:52)
[2023-01-02] MEDS: CLOPIDOGREL BISULFATE 75 MG TAB PO SCH (09:16)
[2023-01-02] MEDS: FUROSEMIDE 40 MG/4 ML VIAL IV SCH (09:16)
[2023-01-02] MEDS: SPIRONOLACTONE 25 MG TAB PO SCH (09:17)
[2023-01-02] MEDS: PANTOprazole 40 MG TAB PO SCH ×2 (09:17→21:50)
[2023-01-02] MEDS: MULTIVITAMIN TAB PO SCH (09:18)
[2023-01-02] MEDS: amLODIPine BESYLATE 5 MG TAB PO SCH ×2 (09:18→21:51)
[2023-01-02] MEDS: POTASSIUM CHLORIDE 10 MEQ TABCR PO SCH ×2 (09:18→21:54)
[2023-01-02] MEDS: ATORVASTATIN 40 MG TAB PO SCH (09:19)
[2023-01-02] MEDS: carvediloL 6.25 MG TAB PO SCH ×2 (09:19→21:52)
[2023-01-02] MEDS: HEPARIN SOD 5,000 UNIT/0.5 ML VIAL SQ SCH ×2 (11:36→21:52)
[2023-01-02] MEDS ORDERED: FUROSEMIDE INJ 20 MG/2 ML VIAL IV ONE (17:00)
--- NOTE | 2023-01-02 20:24 | Hospitalist Progress Note ---
Date of Service January 02, 2023 Assessment & Plan (1) Acute on chronic heart failure with preserved ejection fraction (HFpEF): Plan: improved suspect the drop in lasix from daily to QOD precipitated this decompensation? 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 (2) CAD (coronary artery disease): Plan: last cardiac cath was by Dr Rivera - 11/2021: Multivessel coronary artery disease -50% ostial left main (IVUScalcified, 50 to 60%, CSA 5.4 mm) Sequential RCA lesions (60-70% proximal ISR, 60% mid, 50% latemid) 30 to 40% ostial circumflex per documentation was referred to [place] for consideration of revascularization but uncertain if that occurred cont coreg, statin, plavix, etc (3) Hyperlipemia: Plan: cont statin (4) PAD (peripheral artery disease): Plan: s/p fem-fem bypass [address] Cash cont plavix cont statin (5) Paroxysmal atrial fibrillation: Plan: cont amiodarone cont coreg she is not on anticoagulation (6) Type 2 diabetes mellitus with diabetic neuropathy, unspecified: Plan: a1c 6.4% BSGs very tightly controlled here cut lantus to 10 units once daily from BID loosen novolog coverage hold glimepiride (7) Chronic kidney disease, stage IV (severe): Plan: baseline CrCL 20s repeat BMP daily (8) Iron deficiency anemia: Plan: last ferritin 70s November 2022 given blood loss from #10 this year her ferritin is likely to still be low repeat am repeat cbc am consider IV venofer given the anemia (9) S/P TAVR (transcatheter aortic valve replacement): Plan: 01/2022 - [facility] follows with Dr Prem Mcpherson [facility] [place] last echo ? (10) Ischemic colitis: Plan: 2022 is supposed to f/u at [facility] for this - timing uncertain has had worsening anemia due to blood loss from this event no GI symptoms at this time Plan DVT proph - heparin 5000 BID PT eval Admission and Anticipated Discharge Date Admission Date: January 01, 2023 Subjective patient feeling better today dyspnea at rest resolved orthopnea resolved LE edema improved still with a little VALENCIA eating well no cough denies abd pain or BRBPR states her lasix recently was cut back from daily use to QOD - perhaps about 1 month ago? Review of Systems Review of Systems: gen - no fever cv - no chest pain pulm - no wheezing, mild VALENCIA remains GI - no nausea/emesis Physical Exam Physical Exam: gen - NAD, laying flat in bed comfortably neck - after raising head of bed to 30 degrees she has JVD to the jaw mouth - MMM heart - RRR, s1 s2, 1-2/6 IVELISSE RUSB lungs - b/l basilar rales with decreased BS abd - soft NT ND BS+ ext - left leg including thigh and calf is much larger than the right leg; trace edema LLE; no edema on right; pulses 1+ b/l psych - a/o x 3 Results & Data Results & Data Vital Signs (Past 12 Hours) Vital Signs Temp Pulse Resp BP BP Pulse Ox Pulse Ox 01/02/23 19:10 36.9 C 52 L 18 160/44 H 92 01/02/23 15:49 94 01/02/23 16:07 36.7 C 53 L 18 169/66 H 90 01/02/23 10:48 36.6 C 49 L 19 167/53 H 97 O2 Del Method O2 Del Method O2 Flow Rate 01/02/23 19:10 Room Air 01/02/23 15:49 Room Air 01/02/23 16:07 Room Air 01/02/23 10:48 Nasal Cannula 1.5 Laboratory Results Laboratory Results - last 24 hr 01/02/23 01/02/23 01/02/23 06:27 06:27 06:27 WBC 4.92 RBC 3.11 L Hgb 8.7 L Hct 27.2 L MCV 87.5 MCH 28.0 MCHC 32.0 RDW Std Deviation 50.4 H RDW Coeff of Alysa 15.8 H Plt Count 250 MPV 11.8 Immature Gran % (Auto) 0.2 Neut % (Auto) 64.2 Lymph % (Auto) 18.7 [place] % (Auto) 10.0 Eos % (Auto) 6.1 Baso % (Auto) 0.8 Neut # (Auto) 3.16 Lymph # (Auto) 0.92 L [place] # (Auto) 0.49 Eos # (Auto) 0.30 Baso # (Auto) 0.04 Immature Gran # (Auto) 0.01 Sodium 140 Potassium 4.1 Chloride 107 Carbon Dioxide 27 Anion Gap 6 BUN 35 H Creatinine 1.50 H Est Cr Clr Drug Dosing 27.4 Est GFR ( Amer) 37.7 Est GFR (Non-Af Amer) 32.6 BUN/Creatinine Ratio 23.3 H Glucose 59 L POC Glucose Estimat Average Glucose 137 Hemoglobin A1c 6.4 H Calcium 8.9 Magnesium 2.1 01/02/23 01/02/23 01/02/23 07:20 11:42 16:16 WBC RBC Hgb Hct MCV MCH MCHC RDW Std Deviation RDW Coeff of Alysa Plt Count MPV Immature Gran % (Auto) Neut % (Auto) Lymph % (Auto) [place] % (Auto) Eos % (Auto) Baso % (Auto) Neut # (Auto) Lymph # (Auto) [place] # (Auto) Eos # (Auto) Baso # (Auto) Immature Gran # (Auto) Sodium Potassium Chloride Carbon Dioxide Anion Gap BUN Creatinine Est Cr Clr Drug Dosing Est GFR ( Amer) Est GFR (Non-Af Amer) BUN/Creatinine Ratio Glucose POC Glucose 85 113 H 81 Estimat Average Glucose Hemoglobin A1c Calcium Magnesium PG Care Time/CCT Total # of Minutes Spent Total Time Spent with Patient: Total time spent is greater than 50% in coordination of care (as documented) at patient's floor/unit and/or counseling patient: Coding Level of Care Code 62354 SUB INP/OBS CARE 2/35MIN Diagnoses Acute on chronic heart failure with preserved ejection fraction (HFpEF) I50.33 CAD (coronary artery disease) I25.10 Hyperlipemia E78.5 PAD (peripheral artery disease) I73.9 Paroxysmal atrial fibrillation I48.0 Type 2 diabetes mellitus with diabetic neuropathy, unspecified E11.40 Chronic kidney disease, stage IV (severe) N18.4 Iron deficiency anemia D50.9 S/P TAVR (transcatheter aortic valve replacement) Z95.2 Ischemic colitis K55.9
[2023-01-02] MEDS ORDERED: DOCUSATE SODIUM 100 MG CAP PO ONE (23:38)
[2023-01-03 06:24] LABS: Thyroid Stimulating Hormone 5.379 uIu/ml (0.300-4.500)
[2023-01-03 06:59] LABS: T4 Free Thyroxine 1.4 ng/dl (0.61-1.60)
[2023-01-03 07:24] LABS: Basophils # (auto) 0.05 K/uL (0-0.2); Basophils % (auto) 0.9 %; Eosinophils # (auto) 0.29 K/uL (0-0.50); Eosinophils % (auto) 5.3 %; Hematocrit (blood only) 28.6 % (37.0-47.0); Hemoglobin 9.1 g/dl (12.0-16.0); Immature Granulocytes # (auto) 0.01 K/uL (0.01-0.20); Immature Granulocytes % (auto) 0.2 %; Lymphocytes # (auto) 1.08 K/uL (1.2-3.4); Lymphocytes % (auto) 19.7 %; Mean Corpuscular Hemoglobin 27.6 pg (25.0-34.0); Mean Corpuscular Hgb Conc 31.8 g/dL (32.0-36.0); Mean Corpuscular Volume 86.7 fL (80.0-100.0); Mean Platelet Volume 11.9 fL (9.4-12.4); Monocytes # (auto) 0.48 K/uL (0.11-0.59); Monocytes % (auto) 8.8 %; Neutrophils # (auto) 3.56 K/uL (1.40-6.50); Neutrophils % (auto) 65.1 %; Platelet Count 290 K/uL (130-400); RDW Coefficient of Variation 15.7 % (11.5-14.5); RDW Standard Deviation 49.7 fL (36.4-46.3); White Blood Count 5.47 K/ul (4.8-10.8)
[2023-01-03] MEDS: MULTIVITAMIN TAB PO SCH (08:15)
[2023-01-03] MEDS: MAGNESIUM OXIDE 400 MG TAB PO SCH ×2 (08:15→20:28)
[2023-01-03] MEDS: CLOPIDOGREL BISULFATE 75 MG TAB PO SCH (08:16)
[2023-01-03] MEDS: hydrALAZINE TAB 50 MG TAB PO SCH ×3 (08:16→20:28)
[2023-01-03] MEDS: carvediloL 6.25 MG TAB PO SCH ×2 (08:16→20:24)
[2023-01-03] MEDS: ATORVASTATIN 40 MG TAB PO SCH (08:16)
[2023-01-03] MEDS: AMIODARONE 200 MG TAB PO SCH (08:17)
[2023-01-03] MEDS: PANTOprazole 40 MG TAB PO SCH ×2 (08:18→20:28)
[2023-01-03] MEDS: SPIRONOLACTONE 25 MG TAB PO SCH (08:18)
[2023-01-03] MEDS: VALSARTAN/SACUBITRIL 26/24MG TAB PO SCH (08:19)
[2023-01-03] MEDS: amLODIPine BESYLATE 5 MG TAB PO SCH ×2 (08:19→20:28)
[2023-01-03 08:25] LABS: BUN Creatinine Ratio 22.3 (10-20); Calcium 8.9 mg/dl (8.6-10.3); Creatinine Clr Calc Pharmacy 21.2 ml/min; Est GFR (African American) 27.8 ml/min; Potassium 4.6 mmol/L (3.5-5.1)
[2023-01-03] MEDS: INSULIN ASPART PER UNIT CHARGE SC SCH ×4 (08:32→20:28)
[2023-01-03] MEDS: LANTUS PER UNIT CHARGE SQ SCH (08:33)
[2023-01-03] MEDS: POTASSIUM CHLORIDE 10 MEQ TABCR PO SCH ×2 (08:33→20:27)
[2023-01-03] MEDS: HEPARIN SOD 5,000 UNIT/0.5 ML VIAL SQ SCH ×2 (08:44→20:27)
[2023-01-03 08:45] LABS: Ferritin 60.6 ng/ml (8-388)
[2023-01-03] MEDS ORDERED: FUROSEMIDE 40 MG/4 ML VIAL IV SCH (09:00)
[2023-01-03] MEDS: POLYETHYLENE (MIRALAX) 17 GM PACK PO SCH (13:02)
[2023-01-03] MEDS ORDERED: IRON SUCROSE 200 MG in 0.9 % SODIUM CHLORIDE 100 ML IV ONE (13:36)
--- NOTE | 2023-01-03 19:31 | Electrocardiogram Report ---
Test Reason : Blood Pressure : / mmHG Vent. Rate : 055 BPM Atrial Rate : 000 BPM P-R Int : 000 ms QRS Dur : 084 ms QT Int : 468 ms P-R-T Axes : 000 031 035 degrees QTc Int : 447 ms Sinus bradycardia Low voltage QRS Abnormal ECG When compared with ECG of 01-NOV-2022 16:45, Premature ventricular complexes are no longer Present Confirmed by Gagan Alonzo ([id number]) on 01/03/2023 7:31:27 PM Referred By: Confirmed By:Gagan Alonzo
--- NOTE | 2023-01-03 20:59 | Hospitalist Progress Note ---
Date of Service January 03, 2023 Assessment & Plan (1) Acute on chronic heart failure with preserved ejection fraction (HFpEF): Plan: improved, with rise in creatinine overnight will hold lasix after the dose already given this am suspect the drop in lasix from daily to QOD precipitated this decompensation (dose reduction was a few weeks ago) cannot rule out dietary indiscretion or med compliance issues BMP am cont coreg cont aldactone hold entresto due to rise in creatinine care d/w Dr Mcpherson, [facility], her primary manager social responsibility (2) CAD (coronary artery disease): Plan: last cardiac cath was by Dr Rivera - 11/2021: Multivessel coronary artery disease -50% ostial left main (IVUScalcified, 50 to 60%, CSA 5.4 mm) Sequential RCA lesions (60-70% proximal ISR, 60% mid, 50% latemid) 30 to 40% ostial circumflex per documentation was referred to [place] for consideration of revascularization but never had such cont coreg, statin, plavix, etc (3) Hyperlipemia: Plan: cont statin (4) PAD (peripheral artery disease): Plan: s/p fem-fem bypass [address] Cash cont plavix cont statin (5) Paroxysmal atrial fibrillation: Plan: cont amiodarone cont coreg she is not on chronic anticoagulation (6) Type 2 diabetes mellitus with diabetic neuropathy, unspecified: Plan: a1c 6.4% controlled cont lantus 10 units once daily cont loose novolog coverage holding glimepiride (7) Chronic kidney disease, stage IV (severe): Plan: baseline CrCL 20s repeat BMP daily mild LEV today due to diuresis baseline Cr about 1.5 to 1.9 (8) Iron deficiency anemia: Plan: give venofer 200mg IV x 1 perhaps improving H/H may help her cardiac issues? plan to give another dose of venofer tomorrow (9) S/P TAVR (transcatheter aortic valve replacement): Plan: 01/2022 - [facility] follows with Dr Prem Mcpherson [facility] [place] last echo 2022 (10) Ischemic colitis: Plan: 2022 is supposed to f/u at [facility] for this - timing uncertain has had worsening anemia due to blood loss from this event no GI symptoms at this time Plan DVT proph - heparin 5000 BID PT eval completed - cleared for home updated pt's daughter by phone today Admission and Anticipated Discharge Date Admission Date: January 01, 2023 Subjective pt feeling better less dyspnea at rest and with exertion no orthopnea no PND eating well tolerated venofer this am no chest pain tele overnight wnl Review of Systems Review of Systems: gen - feeling better but overall weak cv - no chest pain pulm - no cough GI - no diarrhea, no emesis, no blood in stool Physical Exam Physical Exam: gen - NAD, laying flat in bed comfortably, pleasant neck - mild JVD still present mouth - MMM heart - RRR, s1 s2, 1-2/6 IVELISSE RUSB lungs - b/l basilar rales much improved; modestly decreased BS bases abd - soft NT ND BS+ ext - edema resolved b/l; LLE slightly bigger than RLE; pulses 1+ b/l feet Results & Data Results & Data Vital Signs (Past 12 Hours) Vital Signs Temp Pulse Pulse Resp BP BP Pulse Ox 01/03/23 19:28 36.9 C 57 L 20 165/55 H 165/55 H 95 01/03/23 15:47 36.8 C 54 L 18 155/45 H 90 01/03/23 15:03 55 L 01/03/23 10:45 36.6 C 52 L 19 162/53 H 90 O2 Del Method 01/03/23 19:28 Room Air 01/03/23 15:47 Room Air 01/03/23 15:03 01/03/23 10:45 Room Air Laboratory Results Laboratory Results - last 24 hr 01/03/23 01/03/23 01/03/23 05:39 05:39 05:39 WBC 5.47 RBC 3.30 L Hgb 9.1 L Hct 28.6 L MCV 86.7 MCH 27.6 MCHC 31.8 L RDW Std Deviation 49.7 H RDW Coeff of Alysa 15.7 H Plt Count 290 MPV 11.9 Immature Gran % (Auto) 0.2 Neut % (Auto) 65.1 Lymph % (Auto) 19.7 [place] % (Auto) 8.8 Eos % (Auto) 5.3 Baso % (Auto) 0.9 Neut # (Auto) 3.56 Lymph # (Auto) 1.08 L [place] # (Auto) 0.48 Eos # (Auto) 0.29 Baso # (Auto) 0.05 Immature Gran # (Auto) 0.01 Sodium 138 Potassium 4.6 Chloride 104 Carbon Dioxide 25 Anion Gap 9 BUN 43 H Creatinine 1.93 H D Est Cr Clr Drug Dosing 21.2 Est GFR ( Amer) 27.8 Est GFR (Non-Af Amer) 24.0 BUN/Creatinine Ratio 22.3 H Glucose 74 POC Glucose Calcium 8.9 Iron 40 TIBC 288 Unsaturated IBC 248 Transferrin % Sat 14 L Ferritin 60.6 TSH 5.379 H Free T4 1.40 01/03/23 01/03/23 01/03/23 07:00 11:23 16:18 WBC RBC Hgb Hct MCV MCH MCHC RDW Std Deviation RDW Coeff of Alysa Plt Count MPV Immature Gran % (Auto) Neut % (Auto) Lymph % (Auto) [place] % (Auto) Eos % (Auto) Baso % (Auto) Neut # (Auto) Lymph # (Auto) [place] # (Auto) Eos # (Auto) Baso # (Auto) Immature Gran # (Auto) Sodium Potassium Chloride Carbon Dioxide Anion Gap BUN Creatinine Est Cr Clr Drug Dosing Est GFR ( Amer) Est GFR (Non-Af Amer) BUN/Creatinine Ratio Glucose POC Glucose 75 131 H 87 Calcium Iron TIBC Unsaturated IBC Transferrin % Sat Ferritin TSH Free T4 01/03/23 20:18 WBC RBC Hgb Hct MCV MCH MCHC RDW Std Deviation RDW Coeff of Alysa Plt Count MPV Immature Gran % (Auto) Neut % (Auto) Lymph % (Auto) [place] % (Auto) Eos % (Auto) Baso % (Auto) Neut # (Auto) Lymph # (Auto) [place] # (Auto) Eos # (Auto) Baso # (Auto) Immature Gran # (Auto) Sodium Potassium Chloride Carbon Dioxide Anion Gap BUN Creatinine Est Cr Clr Drug Dosing Est GFR ( Amer) Est GFR (Non-Af Amer) BUN/Creatinine Ratio Glucose POC Glucose 117 H Calcium Iron TIBC Unsaturated IBC Transferrin % Sat Ferritin TSH Free T4 PG Care Time/CCT Total # of Minutes Spent Total Time Spent with Patient: Total time spent is greater than 50% in coordination of care (as documented) at patient's floor/unit and/or counseling patient: Coding Level of Care Code 84342 SUB INP/OBS CARE 2/35MIN Diagnoses Acute on chronic heart failure with preserved ejection fraction (HFpEF) I50.33 CAD (coronary artery disease) I25.10 Hyperlipemia E78.5 PAD (peripheral artery disease) I73.9 Paroxysmal atrial fibrillation I48.0 Type 2 diabetes mellitus with diabetic neuropathy, unspecified E11.40 Chronic kidney disease, stage IV (severe) N18.4 Iron deficiency anemia D50.9 S/P TAVR (transcatheter aortic valve replacement) Z95.2 Ischemic colitis K55.9
[2023-01-04] MEDS ORDERED: IRON SUCROSE 300 MG in SODIUM CHLORIDE 0.9% 250 ML IV ONE (07:30)
[2023-01-04 07:58] LABS: Hematocrit (blood only) 31.2 % (37.0-47.0)
[2023-01-04] MEDS: LANTUS PER UNIT CHARGE SQ SCH (08:02)
[2023-01-04] MEDS: INSULIN ASPART PER UNIT CHARGE SC SCH ×5 (08:03→20:13)
[2023-01-04] MEDS: carvediloL 6.25 MG TAB PO SCH ×2 (08:05→20:18)
[2023-01-04] MEDS: PANTOprazole 40 MG TAB PO SCH ×2 (08:07→20:17)
[2023-01-04] MEDS: CLOPIDOGREL BISULFATE 75 MG TAB PO SCH (08:07)
[2023-01-04] MEDS: POTASSIUM CHLORIDE 10 MEQ TABCR PO SCH (08:07)
[2023-01-04] MEDS: MAGNESIUM OXIDE 400 MG TAB PO SCH ×2 (08:07→20:17)
[2023-01-04] MEDS: AMIODARONE 200 MG TAB PO SCH (08:07)
[2023-01-04] MEDS: amLODIPine BESYLATE 5 MG TAB PO SCH ×2 (08:08→20:17)
[2023-01-04] MEDS: MULTIVITAMIN TAB PO SCH (08:08)
[2023-01-04] MEDS: hydrALAZINE TAB 50 MG TAB PO SCH ×3 (08:08→20:17)
[2023-01-04] MEDS: ATORVASTATIN 40 MG TAB PO SCH (08:09)
[2023-01-04] MEDS: SPIRONOLACTONE 25 MG TAB PO SCH (08:10)
[2023-01-04] MEDS: POLYETHYLENE (MIRALAX) 17 GM PACK PO SCH (08:15)
[2023-01-04 08:16] LABS: BUN Creatinine Ratio 22.8 (10-20); Calcium 9.4 mg/dl (8.6-10.3); Creatinine Clr Calc Pharmacy 19.7 ml/min; Est GFR (African American) 25.7 ml/min; Est GFR (Non-African American) 22.2 ml/min; Potassium 4.9 mmol/L (3.5-5.1)
[2023-01-04] MEDS: HEPARIN SOD 5,000 UNIT/0.5 ML VIAL SQ SCH ×2 (09:50→20:17)
--- NOTE | 2023-01-04 20:25 | Hospitalist Progress Note ---
Date of Service January 04, 2023 Assessment & Plan (1) Junctional bradycardia: Plan: went into such this am after receiving low-dose coreg in the setting of chronic amiodarone use for PAF. fortunately not symptomatic from such. coreg to be stopped. amiodarone to be held. I question if she has had this at home and was her decompensated CHF exacerbated by potential runs of this? Will allow coreg to wash out and hopefully she returns to NSR later today. strong likelihood of needing cardiology consultation given the complexity of this situation and this rhythm change today. (2) Acute on chronic heart failure with preserved ejection fraction (HFpEF): Plan: decompensation resolved IV lasix stopped suspect the drop in lasix from daily to QOD precipitated this decompensation (dose reduction was a few weeks ago) cannot rule out dietary indiscretion or med compliance issues cannot rule out arrhythmia contributing to decompensation BMP am STOP coreg hold entresto due to rise in creatinine care d/w Dr Mcpherson, [facility], her primary bill board poster on 01/03/23 (3) CAD (coronary artery disease): Plan: last cardiac cath was by Dr Rivera - 11/2021: Multivessel coronary artery disease -50% ostial left main (IVUScalcified, 50 to 60%, CSA 5.4 mm) Sequential RCA lesions (60-70% proximal ISR, 60% mid, 50% latemid) 30 to 40% ostial circumflex per documentation was referred to [facility] for consideration of revascularization but never had such cont statin, plavix, etc stopping coreg due to #1 above (4) Hyperlipemia: Plan: cont statin (5) PAD (peripheral artery disease): Plan: s/p fem-fem bypass [address] Cash cont plavix cont statin (6) Paroxysmal atrial fibrillation: Plan: no PAF seen while here she is not on chronic anticoagulation holding amiodarone due to #1 stopping coreg due to #1 (7) Type 2 diabetes mellitus with diabetic neuropathy, unspecified: Plan: a1c 6.4% controlled cont lantus 10 units once daily cont loose novolog coverage holding glimepiride (8) Chronic kidney disease, stage IV (severe): Plan: baseline CrCL 20s repeat BMP daily mild LEV with rise from 1.5 to 1.9 to 2 today baseline Cr about 1.5 to 1.9 (9) Iron deficiency anemia: Plan: s/p venofer 200mg IV x 1 on 01/03 give 300mg of venofer today perhaps improving H/H may help her cardiac issues? repeat H/H in 48 hours for stability (10) S/P TAVR (transcatheter aortic valve replacement): Plan: 01/2022 - [facility] follows with Dr Prem Mcpherson [facility] [place] last echo 2022 (11) Ischemic colitis: Plan: 2022 is supposed to f/u at [facility] for this - timing uncertain has had worsening anemia due to blood loss from this event no GI symptoms at this time (12) LEV (acute kidney injury): Plan: 2nd diuresis at risk of progression in setting of #1 above BMP am Plan DVT proph - heparin 5000 BID PT eval completed - cleared for home updated pt's daughter by phone today (20 min conversation) Admission and Anticipated Discharge Date Admission Date: January 01, 2023 Subjective no issues overnight pt reports her breathing is essentially back to normal no orthopnea, PND, dyspnea at rest or any VALENCIA with walking in room no chest pain no dizziness or lightheadedness she is a little fatigued eating well this am her usual coreg 6.25mg was given as her HR was just shy of 60 and her BPs were quite high coreg is chronic med for her about 2 hours later while she was washing up at the sink she flipped to about a HR of 40 I went to the tele room and the strips showed junctional bradycardia with ?2nd AV block she remained in junctional most of the day except for a brief period of sinus bradycardia despite the low HR she was asymptomatic and did not feel any different than prior Review of Systems Review of Systems: cv - no chest pain, no orthopnea/PND, edema resolved pulm - no cough GI - no nausea/emesis neuro - no dizziness/near-syncope Physical Exam Physical Exam: gen - NAD, laying flat in bed comfortably, pleasant, looks good today neck - JVD resolved mouth - MMM heart - RRR, s1 s2, 1-2/6 IVELISSE RUSB unchanged lungs - rales resolved; good airation; BS wnl b/l abd - soft NT ND BS+ ext - edema resolved b/l; LLE slightly bigger than RLE; pulses 1+ b/l feet psych - awake/alert Results & Data Results & Data Vital Signs (Past 12 Hours) Vital Signs Temp Pulse Pulse Resp BP Pulse Ox O2 Del Method 01/04/23 19:23 36.4 C L 40 L 18 166/52 H 95 Room Air 01/04/23 15:48 44 L 01/04/23 15:41 37.0 C 41 L 18 164/51 H 91 Room Air 01/04/23 14:07 40 L 160/57 H 01/04/23 11:35 36.7 C 41 L 18 158/56 H 91 Room Air Laboratory Results Laboratory Results - last 24 hr 01/04/23 01/04/23 01/04/23 07:16 07:16 07:16 Hgb 10.0 L Hct 31.2 L Sodium 136 Potassium 4.9 Chloride 102 Carbon Dioxide 27 Anion Gap 7 BUN 47 H Creatinine 2.06 H Est Cr Clr Drug Dosing 19.7 Est GFR ( Amer) 25.7 Est GFR (Non-Af Amer) 22.2 BUN/Creatinine Ratio 22.8 H Glucose 100 H POC Glucose 117 H Calcium 9.4 01/04/23 01/04/23 01/04/23 10:49 16:09 20:06 Hgb Hct Sodium Potassium Chloride Carbon Dioxide Anion Gap BUN Creatinine Est Cr Clr Drug Dosing Est GFR ( Amer) Est GFR (Non-Af Amer) BUN/Creatinine Ratio Glucose POC Glucose 240 H 112 H 166 H Calcium PG Care Time/CCT Total # of Minutes Spent Total Time Spent with Patient: Total time spent is greater than 50% in coordination of care (as documented) at patient's floor/unit and/or counseling patient: Coding Level of Care Code 75238 SUB INP/OBS CARE 3/50MIN Diagnoses Junctional bradycardia R00.1 Acute on chronic heart failure with preserved ejection fraction (HFpEF) I50.33 CAD (coronary artery disease) I25.10 Hyperlipemia E78.5 PAD (peripheral artery disease) I73.9 Paroxysmal atrial fibrillation I48.0 Type 2 diabetes mellitus with diabetic neuropathy, unspecified E11.40 Chronic kidney disease, stage IV (severe) N18.4 Iron deficiency anemia D50.9 S/P TAVR (transcatheter aortic valve replacement) Z95.2 Ischemic colitis K55.9 LEV (acute kidney injury) N17.9
[2023-01-04] MEDS: ACETAMINOPHEN 325 MG TAB PO PRN (20:55)
--- NOTE | 2023-01-05 07:08 | Electrocardiogram Report ---
Test Reason : Blood Pressure : / mmHG Vent. Rate : 038 BPM Atrial Rate : 300 BPM P-R Int : 000 ms QRS Dur : 090 ms QT Int : 496 ms P-R-T Axes : 000 017 040 degrees QTc Int : 394 ms Junctional bradycardia Abnormal ECG When compared with ECG of 01-JAN-2023 09:57, Junctional rhythm has replaced Sinus rhythm Nonspecific T wave abnormality no longer evident in Inferior leads Confirmed by Dlilon Otero ([id number]) on 01/05/2023 7:08:34 AM Referred By: REFERRED SELF Confirmed By:Renato Otero
[2023-01-05 07:28] LABS: BUN Creatinine Ratio 25.5 (10-20); Calcium 9.1 mg/dl (8.6-10.3); Creatinine Clr Calc Pharmacy 16.9 ml/min; Est GFR (African American) 21.1 ml/min; Est GFR (Non-African American) 18.2 ml/min; Potassium 5.5 mmol/L (3.5-5.1)
[2023-01-05] MEDS: LANTUS PER UNIT CHARGE SQ SCH (08:05)
[2023-01-05] MEDS: INSULIN ASPART PER UNIT CHARGE SC SCH ×4 (08:06→20:08)
[2023-01-05] MEDS ORDERED: PATIROMER CALCIUM SORBITEX 8.4 GM PACK PO ONE ×2 (08:30→11:00)
[2023-01-05] MEDS: hydrALAZINE TAB 50 MG TAB PO SCH ×3 (09:01→19:59)
[2023-01-05] MEDS: MULTIVITAMIN TAB PO SCH (09:01)
[2023-01-05] MEDS: PANTOprazole 40 MG TAB PO SCH ×2 (09:02→19:59)
[2023-01-05] MEDS: amLODIPine BESYLATE 5 MG TAB PO SCH ×2 (09:02→20:00)
[2023-01-05] MEDS: ATORVASTATIN 40 MG TAB PO SCH (09:02)
[2023-01-05] MEDS: MAGNESIUM OXIDE 400 MG TAB PO SCH ×2 (09:02→19:59)
[2023-01-05] MEDS: POLYETHYLENE (MIRALAX) 17 GM PACK PO SCH (09:03)
[2023-01-05] MEDS: CLOPIDOGREL BISULFATE 75 MG TAB PO SCH (09:03)
[2023-01-05] MEDS: HEPARIN SOD 5,000 UNIT/0.5 ML VIAL SQ SCH ×2 (09:14→20:00)
[2023-01-05] MEDS ORDERED: ISOSORBIDE MONO EXTENDED REL 30 MG TABCR PO ONE (11:42)
--- NOTE | 2023-01-05 15:05 | Cardiology Consultation ---
Date of Consultation January 05, 2023 Assessment & Plan (1) Junctional bradycardia: (2) Acute on chronic heart failure with preserved ejection fraction (HFpEF): (3) HTN (hypertension): (4) Aortic stenosis: (5) Paroxysmal atrial fibrillation: (6) CAD (coronary artery disease): (7) PAD (peripheral artery disease): Plan 1. Bradycardia: She has a history of bradycardia. Outpatient records suggest that her amiodarone dose was reduced recently, but this is not reflected in her history and physical. In any event, she was on carvedilol and amiodarone both of which are being currently held. She was surprisingly asymptomatic. 1 option is simply to stop the amiodarone and limit or reduce carvedilol as indicated by her heart rate. This may be satisfactory in reestablishing a sinus rhythm more reliably. This could certainly lead to more episodes of atrial fibrillation, bu t in the absence of symptoms and with adequate rate control amiodarone may not be necessary. Alternatively, the patient would require permanent pacemaker. 2. Aortic stenosis: Status post TAVR. No current symptoms. Adequate function on her recent echocardiogram. 3. Coronary artery disease: Status post stenting of the ostial left main at the time of her TAVR several months ago. No current symptoms suggestive of coronary insufficiency or ischemia. She can continue aggressive secondary prevention with high-dose atorvastatin and clopidogrel. 4. Atrial fibrillation: She does not describe symptoms of atrial fibrillation. Unclear if she has occult episodes. Not currently on anticoagulation due to a history of gastrointestinal hemorrhage requiring transfusion. Unclear if she requires amiodarone long-term. It is very possible she will have adequate rate control and minimal symptoms with additional episodes. Currently being held. 5. Heart failure with preserved ejection fraction: Symptoms appear to have resolved. She was reported to have an element of peripheral edema at the time of admission. She did well with diuresis but has suffered worsening renal function as a result. In the past she appears to have had similar results with aggressive diuresis as well. 6. Peripheral vascular disease: History of right iliac stenosis status post femorofemoral bypass. No current symptoms of claudication. Good peripheral pulses in both feet. 7. Hypertension: Difficult to control on an outpatient basis. 8. Acute renal injury with hyponatremia, hyperkalemia: likely a result of aggressive diuresis. Holding certain medications and additional lasix History of Present Illness Reason for Consultation: Bradycardia Requesting Physician: Antoinette Attending Physician: Vlad Curry MD History of Present Illness The patient is an 82-year-old woman with an extensive cardiac history to include coronary artery disease, atrial fibrillation, heart failure with preserved ejection fraction, aortic stenosis status post TAVR and a history of peripheral vascular disease with right iliac stenosis and femorofemoral bypass. She presented to the emergency room due to difficulty breathing. The patient states that in general she is a sedentary individual who is able to perform routine housework. She rarely ascending stairs and generally does not perform si gnificant exertion. However, she did notice some lower extremity swelling and worsening dyspnea leading up to her admission. She was treated for heart failure with preserved ejection fraction. During her admission she was noted to have significant bradycardia, telemetry and EKG also documented periods of junctional rhythm. At the time of today's interview the patient states that she is feeling well. She states that her breathing is much better and she was able to get some sleep last evening. She has been ambulatory around her room and around the [facility] by report. She did not endorse symptoms of limiting dyspnea, dizziness, lightheadedness or presyncope. She states that she generally does not have the symptoms at home either. She is rarely aware of palpitations. She had 1 episode of palpitation leading up to admission, but in general does not notice rapid heartbeats or irregularity in her heartbeat. She did undergo a TAVR last year as well as simultaneous stenting of the left main coronary. She states that she felt better after that procedure. She characterizes "better" as having more energy. PMHx: 1. Accelerated hypertension. 2. Non-ST elevation myocardial infarction in October 2018 with a drug-eluting stent placed to the ostial RCA. 3. Residual mid LAD disease in the range of 20-30%; mid circumflex disease in the range of 60-70%; mid to distal RCA disease in the range of 40-50%. 4. Fem-fem bypass, 2020. 5. Severe aortic stenosis, status post 26 mm Austin Rosie 3 TAVR with ostial left main stenting 01/2022. 6. Echocardiogram 03/01/22 with normal LV size and function with mild left ventricular hypertrophy, type 2 diastolic dysfunction, status post 26 mm Austin Rosie 3 TAVR valve with expectant gradients, mild to moderate pulmonary hypertension with PA pressure of 47 mmHg. 7. Diabetes mellitus type 2. 8. Negative CT scan for renal artery stenosis 11/2020. 9. Acute on chronic diastolic heart failure admission, 05/2021 and 07/2022. 10. History of a CVA in 2018. 11. Hyponatremia worsened by hydrochlorothiazide. 12. Normal carotid ultrasound and no evidence of subclavian stenosis, January 09, 2021. 13. Hyperlipidemia. 14. 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 Allergies Allergy/AdvReac Type Severity Reaction Status Date / Time fenofibrate AdvReac Intermediate INCREASED Verified 11/01/22 20:39 URINATION metoprolol AdvReac Intermediate VOMIT,DIARR Verified 11/01/22 20:39 HEA valsartan AdvReac Intermediate Weakness Verified 11/01/22 20:39 verapamil AdvReac Intermediate INCREASED Verified 11/01/22 20:39 URINATION Home Medications Medication Instructions Recorded Confirmed Type fish, borage, flaxseed oils-omega 1 cap PO QDD 12/01/20 01/01/23 History 3,6,9 comb no.1 1,200 mg capsule (Marion 3-6-9) atorvastatin 40 mg tablet 40 mg PO QAM 02/26/21 01/01/23 History multivitamin 1 tab PO QAM 02/26/21 01/01/23 History amiodarone 200 mg tablet 200 mg PO QAM 07/01/21 01/01/23 History pantoprazole 40 mg tablet,delayed 40 mg PO BID 07/01/21 01/01/23 History release glimepiride 4 mg tablet 4 mg PO BID 12/21/21 01/01/23 History carvedilol 6.25 mg tablet 6.25 mg PO BID #60 tabs 12/27/21 01/01/23 Rx magnesium oxide 400 mg (241.3 mg 400 mg PO BID #60 tabs 12/27/21 01/01/23 Rx magnesium) tablet amlodipine 10 mg tablet 10 mg PO BID 06/20/22 01/01/23 History sacubitril 24 mg-valsartan 26 mg 1 tab PO BID 09/20/22 01/01/23 History tablet (Entresto) spironolactone 25 mg tablet 25 mg PO QAM 09/20/22 01/01/23 History hydralazine 100 mg tablet 50 mg PO TID #30 tabs 10/06/22 01/01/23 Rx clopidogrel 75 mg tablet 75 mg PO DAILY 11/01/22 01/01/23 History furosemide 40 mg tablet 40 mg PO DIRECTED 01/01/23 01/01/23 History Patient History Medical History Acute non-ST elevation myocardial infarction (NSTEMI) Acute on chronic heart failure with preserved ejection fraction (HFpEF) LEV (acute kidney injury) Anemia Bradycardia CAD (coronary artery disease) CVA (cerebral vascular accident) (~2019) no deficits Elevated troponin Hyperkalemia Hyperlipemia Hyponatremia Hypoxia Myocardial infarct, old follows with Dr. Mcpherson Occlusion of right iliac artery PAD (peripheral artery disease) Pneumonia hx S/P angiogram of extremity (02/02/21) Type 2 diabetes mellitus with diabetic neuropathy, unspecified NIDDM Surgical History H/O removal of cyst right abdominal area History of bunionectomy of right great toe History of cardiac cath (~2018) History of heart artery stent (~2018) x1. at [facility]. Status post ORIF of fracture of ankle Family History Other No family history of adverse response to anesthesia Social History Smoking Status: Former smoker Tobacco Type: Cigarettes Cigarettes Per Day: 1 Pack; Second Hand Exposure: No; Do You Dip or Chew Tobacco: No; Tobacco Cessation Education Requested by Patient: No Hx Alcohol Use: Yes Alcohol type: other Hx Substance Use: No Preferred Language: Azerbaijani Communication Ability: Effective Communication Ability Comment: difficulty comprehending at times - dtr, Mamie is typically her caregiver Skinner Pelts Required: No Beliefs That Will Affect Care: None marital status: / Current Living Situation: Family Current Living Situation Comment: currently moving in with daughter current occupational status: retired How many Children do You have: 1 Other Information That Helps Us Care for You: No Feels Safe at Home: Yes Safety Concerns: Feels Safe At This Time Assistive Devices: Walker Review of Systems Review of Systems: Per HPI. Currently eating well without abdominal complaints. No lower extremity claudication. Swelling in the lower extremities has improved. Physical Exam Physical Exam: She is alert and oriented x3. Mood affect appear normal. She answered all questions appropriately. HEENT: Sclerae are anicteric. Pupils are equal and reactive to light and accommodation. Extraocular movements were intact. Neuro: Cranial nerves intact Neck: Examination of the submandibular region did not reveal any significant lymphadenopathy. Carotids are palpable bilaterally and free of bruits on auscultation. There was no evidence of jugular venous distention. The thyroid was not enlarged. Lungs: Lungs are clear to auscultation bilaterally. There are no rales wheezes or rhonchi. She has normal respiratory effort without use of accessory muscles. There is normal pulmonary excursion. Cardiac: The rhythm was regular. S1 and S2 were normal. There are no murmurs on examination. The PMI was not markedly displaced on palpation. Abdomen: The abdomen was soft and nontender. Extremities: Patient has bilateral radial pulses that are equal in intensity. There is no evidence cyanosis or clubbing. There was no evidence of significant peripheral edema bilaterally. Skin: There are no rashes noted on examination today. Results & Data Vital Signs (Past 12 Hours) Vital Signs Temp Pulse Pulse Resp BP Pulse Ox O2 Del Method 01/05/23 14:48 36.6 C 44 L 14 164/49 H 92 Room Air 01/05/23 14:26 42 L 160/56 H 01/05/23 11:50 36.3 C L 43 L 16 189/51 H 93 Nasal Cannula 01/05/23 07:54 36.6 C 56 L 14 183/61 H 96 Nasal Cannula 01/05/23 07:15 51 L 01/05/23 04:05 36.4 C L 59 L 18 177/64 H 99 Nasal Cannula O2 Flow Rate 01/05/23 14:48 01/05/23 14:26 01/05/23 11:50 2 01/05/23 07:54 2 01/05/23 07:15 01/05/23 04:05 2 Laboratory Results Abnormal Lab Results 01/04/23 01/04/23 01/05/23 16:09 20:06 06:42 Sodium 133 L Potassium 5.5 H Chloride 102 Carbon Dioxide 24 Anion Gap 7 BUN 62 H Creatinine 2.43 H D Est Cr Clr Drug Dosing 16.9 Est GFR ( Amer) 21.1 Est GFR (Non-Af Amer) 18.2 BUN/Creatinine Ratio 25.5 H Glucose 97 POC Glucose 112 H 166 H Calcium 9.1 01/05/23 01/05/23 07:30 11:25 Sodium Potassium Chloride Carbon Dioxide Anion Gap BUN Creatinine Est Cr Clr Drug Dosing Est GFR ( Amer) Est GFR (Non-Af Amer) BUN/Creatinine Ratio Glucose POC Glucose 108 H 212 H Calcium PG Care Time/CCT Total # of Minutes Spent Total Time Spent with Patient: Total time spent is greater than 50% in coordination of care (as documented) at patient's floor/unit and/or counseling patient: Coding Diagnoses Junctional bradycardia R00.1 Acute on chronic heart failure with preserved ejection fraction (HFpEF) I50.33 HTN (hypertension) I10 Aortic stenosis I35.0 Paroxysmal atrial fibrillation I48.0 CAD (coronary artery disease) I25.10 PAD (peripheral artery disease) I73.9
[2023-01-05 17:37] LABS: BUN Creatinine Ratio 21.3 (10-20); Calcium 9.3 mg/dl (8.6-10.3); Creatinine Clr Calc Pharmacy 13.6 ml/min; Est GFR (African American) 16.3 ml/min
[2023-01-05] MEDS ORDERED: STAT IV STA (18:09)
[2023-01-05] MEDS ORDERED: CALCIUM GLUCONATE 10% 1,000 MG in DEXTROSE 5% 50 ML IV ONE (18:09)
[2023-01-05] MEDS ORDERED: PATIROMER CALCIUM SORBITEX 8.4 GM PACK PO STA (18:09)
[2023-01-05] MEDS ORDERED: SODIUM BICARB 8.4% INJ 50 MEQ/50 ML SYR IV STA (18:12)
--- NOTE | 2023-01-05 20:05 | Hospitalist Progress Note ---
Date of Service January 05, 2023 Assessment & Plan (1) LEV (acute kidney injury): Plan: 2nd to recent diuresis for decompensated CHF +/- junctional bradycardia with decreased perfusion. worse today. serial BMPs q4h. consider spears. consider formal nephrology consultation. HOLDING Entresto, aldactone, lasix, potassium supplements, and any other nephrotoxic agent. (2) Junctional bradycardia: Plan: Developed such the AM of 01/04/23. This was in the setting of coreg + amiodarone use. Both meds have been stopped. Converted back to NSR late yesterday. Remained in NSR until today, then converted back to junctional bradycardia. Appreciate Dr Otero's consultation today from [facility]. Need to correct the hyperkalemia aurora. Cont to hold coreg/amiodarone. Fortunately she is maintaining normal BPs (actually all BPs are high) and she still remains relatively asymptomatic. [id number] all of these issues need urgent attention and correction. (3) Hyperkalemia: Plan: 2nd to LEV in the setting of chronic Entresto use (on hold since 01/03), aldactone (on hold since 01/04), potassium supplements (on hold since 01/04). Gave patiromer x 1 this am. repeat BMP showed no response to such. Repeated patiromer, gave Calcium gluconate 1000mg IV x 1, and amp of NaBicarbonate. Repeat K still high --> starting bicarbonate infusion. Consider additional calcium gluconate, continuous albuterol neb (1 hour), insulin/D50. BMPs q4h. If no response to the above therapies then urgent nephrology consultation. (4) Acute on chronic heart failure with preserved ejection fraction (HFpEF): Plan: decompensation resolved IV lasix stopped 01/03/23 the drop in lasix dosing from daily to QOD may have contributed to this decompensation (dose reduction was a few weeks ago) cannot rule out dietary indiscretion or med compliance issues cannot rule out arrhythmia contributing to decompensation coreg, amiodarone, entresto, aldactone, lasix on hold due to #1, #2, #3 care d/w Dr Mcpherson, [facility], her primary quality project manager on 01/03/23 Dr Mcpherson's team updated today regarding events of the weekend Dr Mcpherson or Cyn HENRIQUEZ will see her tomorrow (5) CAD (coronary artery disease): Plan: last cardiac cath was by Dr Rivera - 11/2021: Multivessel coronary artery disease -50% ostial left main (IVUScalcified, 50 to 60%, CSA 5.4 mm) Sequential RCA lesions (60-70% proximal ISR, 60% mid, 50% latemid) 30 to 40% ostial circumflex per documentation was referred to [place] for consideration of revascularization but never had such cont statin, plavix, etc coreg stopped due to junctional bradycardia (6) Hyperlipemia: Plan: cont statin (7) PAD (peripheral artery disease): Plan: s/p fem-fem bypass [address] Cash cont plavix cont statin (8) Paroxysmal atrial fibrillation: Plan: no PAF seen while here she is not on chronic anticoagulation again coreg + amiodarone stopped due to junctional bradycardia (9) Type 2 diabetes mellitus with diabetic neuropathy, unspecified: Plan: a1c 6.4% controlled cont lantus 10 units once daily cont loose novolog coverage holding glimepiride (10) Chronic kidney disease, stage IV (severe): Plan: baseline CrCL 20s now with superimposed LEV as noted above baseline Cr about 1.5 to 1.9 (11) Iron deficiency anemia: Plan: s/p venofer 200mg IV x 1 on 01/03 s/p venofer 300mg IV x 1 on 01/04 repeat CBC am (12) S/P TAVR (transcatheter aortic valve replacement): Plan: 01/2022 - [facility] follows with Dr Prem Mcpherson - [facility] [place] last echo 2022 (13) Ischemic colitis: Plan: 2022 is supposed to f/u at [facility] for this - timing uncertain has had worsening anemia due to blood loss from this event no GI symptoms at this time (14) Hyponatremia: Plan: 2nd LEV serial BMPs (15) HTN (hypertension): Plan: coreg, entresto, aldactone, lasix all on hold amlodipine 10mg BID remains hydralazine 50mg TID remains while the above meds are on hold will use imdur 30mg daily in gilberto Plan DVT proph - heparin 5000 BID updated pt's daughter Mamie Singh by phone yesterday and once again this evening made Mamie aware of the junctional bradycardia, LEV, hyperkalemia, etc plan of care and today's events extensively discussed with the night physician team care d/w Dr Otero I also corresponded with Dr Mcpherson highly complex care coordination with multiple urgent acute issues - total care time today 90 minutes Admission and Anticipated Discharge Date Admission Date: January 01, 2023 Subjective converted from junctional bradycardia back to NSR today, then went back into junctional bradycardia despite the above she denies any dizziness, lightheadedness, chest pain, shortness of breath she has been able to ambulate around the room w/o difficulty eating is fair voiding w/o difficulty - has had at least 700cc of UOP on dayshift Review of Systems Review of Systems: gen - no fevers cv - no orthopnea, no PND, no edema pulm - no cough or congestion GI - no nausea or emesis; no abd pain - no LUTS Physical Exam Physical Exam: gen - NAD, laying flat in bed comfortably neck - no JVD mouth - MMM heart - RRR, s1 s2, 1-2/6 IVELISSE RUSB lungs - CTA b/l abd - soft NT ND BS+ ext - no ankle edema b/l; pulses 1+ b/l; left thigh is slightly bigger than right thigh Results & Data Results & Data Vital Signs (Past 12 Hours) Vital Signs Temp Pulse Pulse Resp BP BP Pulse Ox 01/05/23 19:57 36.9 C 47 L 18 177/64 H 92 01/05/23 15:42 41 L 01/05/23 14:48 36.6 C 44 L 14 164/49 H 92 01/05/23 14:26 42 L 160/56 H 01/05/23 11:50 36.3 C L 43 L 16 189/51 H 93 O2 Del Method O2 Flow Rate 01/05/23 19:57 Room Air 01/05/23 15:42 01/05/23 14:48 Room Air 01/05/23 14:26 01/05/23 11:50 Nasal Cannula 2 Laboratory Results Laboratory Results - last 24 hr 01/04/23 01/05/23 01/05/23 20:06 06:42 07:30 Sodium 133 L Potassium 5.5 H Chloride 102 Carbon Dioxide 24 Anion Gap 7 BUN 62 H Creatinine 2.43 H D Est Cr Clr Drug Dosing 16.9 Est GFR ( Amer) 21.1 Est GFR (Non-Af Amer) 18.2 BUN/Creatinine Ratio 25.5 H Glucose 97 POC Glucose 166 H 108 H Calcium 9.1 01/05/23 01/05/23 01/05/23 11:25 16:12 16:51 Sodium 129 L Potassium 6.0 H Chloride 99 Carbon Dioxide 23 Anion Gap 7 BUN 64 H Creatinine 3.01 H D Est Cr Clr Drug Dosing 13.6 Est GFR ( Amer) 16.3 Est GFR (Non-Af Amer) 14.0 BUN/Creatinine Ratio 21.3 H Glucose 90 POC Glucose 212 H 102 H Calcium 9.3 01/05/23 19:46 Sodium Potassium Pending Chloride Carbon Dioxide Anion Gap BUN Creatinine Est Cr Clr Drug Dosing Est GFR ( Amer) Est GFR (Non-Af Amer) BUN/Creatinine Ratio Glucose POC Glucose Calcium PG Care Time/CCT Total # of Minutes Spent Total Time Spent with Patient: Total time spent is greater than 50% in coordination of care (as documented) at patient's floor/unit and/or counseling patient: Prolonged Care Time Prolonged Care Time: Yes Total Prolonged Care Time: 90 Coding Level of Care Code 85102 SUB INP/OBS CARE 3/50MIN (25 - SIGNIFICANT, SEPARATELY IDENTIFIABLE ) Diagnoses LEV (acute kidney injury) N17.9 Junctional bradycardia R00.1 Hyperkalemia E87.5 Acute on chronic heart failure with preserved ejection fraction (HFpEF) I50.33 CAD (coronary artery disease) I25.10 Hyperlipemia E78.5 PAD (peripheral artery disease) I73.9 Paroxysmal atrial fibrillation I48.0 Type 2 diabetes mellitus with diabetic neuropathy, unspecified E11.40 Chronic kidney disease, stage IV (severe) N18.4 Iron deficiency anemia D50.9 S/P TAVR (transcatheter aortic valve replacement) Z95.2 Ischemic colitis K55.9 Hyponatremia E87.1 HTN (hypertension) I10 Additional Codes Prolonged Care Time - Prolonged Care Time: Yes ([id number])
[2023-01-05] MEDS ORDERED: SODIUM BICARBONATE 8.4% 100 MEQ in WATER, STERILE 1,000 ML IV SCH (20:45)
[2023-01-05 22:36] LABS: Base Excess VBG -0.8 mEq/L; HCO3 VBG 24 mmol/L; Oxygen Saturation VBG 79.2 %; PCO2 VBG 37 mmHg (38-50); PO2 VBG 47 mmHg; pH VBG 7.41 (7.36-7.41)
[2023-01-05 23:02] LABS: Calcium 9.4 mg/dl (8.6-10.3); Creatinine Clr Calc Pharmacy 12.9 ml/min; Est GFR (African American) 15.2 ml/min; Est GFR (Non-African American) 13.1 ml/min; Magnesium 2.4 mg/dl (1.7-2.4); Potassium 6.1 mmol/L (3.5-5.1)
[2023-01-05] MEDS: ACETAMINOPHEN 325 MG TAB PO PRN (23:16)
[2023-01-05] MEDS ORDERED: DEXTROSE 50% 50 ML SYRINGE IV STA (23:58)
[2023-01-06] MEDS ORDERED: INSULIN HUMAN REGULAR PER UNIT 10 UNITS in SYRINGE 9.9 ML IV STA (00:10)
[2023-01-06 03:41] LABS: BUN Creatinine Ratio 24.1 (10-20); Calcium 9.5 mg/dl (8.6-10.3); Creatinine Clr Calc Pharmacy 14.3 ml/min; Est GFR (African American) 17.3 ml/min; Est GFR (Non-African American) 14.9 ml/min; Potassium 5.2 mmol/L (3.5-5.1)
--- NOTE | 2023-01-06 03:43 | Communication Note ---
Date of Service: January 06, 2023 Patient continued on bicarb drip overnight for hyperkalemia following labs q4h. Did administer additional insulin/dextrose dose. BMP appears to be improving. Resident Activity Tracking Resident Involvement: Resident Care Provided Care Provided: [facility]
--- NOTE | 2023-01-06 05:34 | Communication Note ---
Date of Service: January 06, 2023 I was notified at 0523 that patient had been feeling a little more sob since starting the bicarb drip. Per nursing, lungs clear and vitals stable. Since po tassium improving, will d/c bicarb drip at this time. Resident Activity Tracking Resident Involvement: Resident Care Provided Care Provided: Adult [facility]
[2023-01-06 08:11] LABS: BUN Creatinine Ratio 24.5 (10-20); Calcium 9.3 mg/dl (8.6-10.3); Creatinine Clr Calc Pharmacy 16.2 ml/min; Est GFR (African American) 20.1 ml/min; Est GFR (Non-African American) 17.3 ml/min; Potassium 4.7 mmol/L (3.5-5.1)
--- NOTE | 2023-01-06 08:33 | Cardiology Progress Note ---
Date of Service January 06, 2023 Assessment & Plan (1) Acute on chronic heart failure with preserved ejection fraction (HFpEF): (2) LEV (acute kidney injury): (3) Junctional bradycardia: (4) High degree atrioventricular block: (5) HTN (hypertension): Plan Cardiac History: 1. Accelerated hypertension. 2. Non-ST elevation myocardial infarction in October 2018 with a drug-eluting stent placed to the ostial RCA. 3. Residual mid LAD disease in the range of 20-30%; mid circumflex disease in the range of 60-70%; mid to distal RCA disease in the range of 40-50%. 4. Fem-fem bypass, 2020. 5. Severe aortic stenosis, status post 26 mm Austin Rosie 3 TAVR with ostial left main stenting 01/2022. 6. Echocardiogram 03/01/22 with normal LV size and function with mild left ventricular hypertrophy, type 2 diastolic dysfunction, status post 26 mm Austin Rosie 3 TAVR valve with expectant gradients, mild to moderate pulmonary hypertension with PA pressure of 47 mmHg. 7. Diabetes mellitus type 2. 8. Negative CT scan for renal artery stenosis 11/2020. 9. Acute on chronic diastolic heart failure admission, 05/2021 and 07/2022. 10. History of a CVA in 2018. 11. Hyponatremia worsened by hydrochlorothiazide. 12. Normal carotid ultrasound and no evidence of subclavian stenosis, January 09, 2021. 13. Hyperlipidemia. 14. 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 Gould is improving today. Her potassium has normalized. Her kidney function is improving. Her spironolactone and Entresto should continue to be held. She appears euvolemic. Her lower extremity edema is resolved. She is down 8L. Her fluid and electrolyte status has been very difficult to control in the outpatient setting. Partly due to the progressive nature of her disease, partly due to medication mis-management, and partly due to dietary indiscretion. Overall, it's been very hard to keep her out of heart failure without sending her into a kidney injury and/or electrolyte disturbance. She continues on clopidogrel for her history of PAD and CAD. She should be on aspirin 81 mg as well and this should be added back into her regimen unless there is concern this visit for further bleeding. She continues on high dose statin therapy. She is unable to be anticoagulated for her history of afib due to multiple GI bleeds requiring transfusion. She is hypertensive. I recommend she resume her amlodipine. She had intermittent episodes of high degree AV block overnight. She does not appear to be symptomatic with this. We'll have to watch and wait as she gets farther out from her hyperkalemia and let the amiodarone wash out of her system to see if this persists. I asked Adri if she would want a pacemaker if she needed one. She was hesitant especially given the amount of procedures she has had over the years. I would not be in a sharp to place a device in her. Her complex medical history and comorbidities are progressive. This is the 6th hospitalization in the last year. Her jail prognosis is poor. I recommend a discussion with palliative care with her daughter included. Admission and Anticipated Discharge Date Admission Date: January 01, 2023 Subjective Ms. Gould had an episode overnight of dyspnea which seems to have improved with discontinuation of her bicarb drip. She denies discomfort this morning: no sob, chest pain, palpitations, edema, lightheadedness. Her telemetry showed episodes of high degree AV block overnight with rates in the 40s. Review of Systems Review of Systems: All systems reviewed & are unremarkable except as noted in HPI & below Physical Exam Constitutional: WD/WN, vitals as above Respiratory: normal respiratory effort; no respiratory distress Auscultation: + crackles (left base) Cardiovascular: Rate/Rhythm: regular rate and regular rhythm Heart Sounds: + murmur (rusb 3/6 systolic murmur ) Extremities: no edema Neurologic: moves all extremities and awake Psychiatric: A+Ox3, euthymic affect Results & Data Vital Signs (Past 12 Hours) Vital Signs Temp Pulse Resp BP BP Pulse Ox O2 Del Method 01/06/23 05:30 20 93 Room Air 01/06/23 03:30 36.8 C 63 20 176/55 H 89 L Room Air 01/05/23 23:20 36.7 C 49 L 20 173/54 H 92 Room Air
[2023-01-06] MEDS: hydrALAZINE TAB 50 MG TAB PO SCH ×3 (08:59→20:27)
[2023-01-06] MEDS: HEPARIN SOD 5,000 UNIT/0.5 ML VIAL SQ SCH ×2 (08:59→20:49)
[2023-01-06] MEDS: PANTOprazole 40 MG TAB PO SCH ×2 (08:59→20:26)
[2023-01-06] MEDS: MAGNESIUM OXIDE 400 MG TAB PO SCH ×2 (08:59→20:26)
[2023-01-06] MEDS: CLOPIDOGREL BISULFATE 75 MG TAB PO SCH (09:00)
[2023-01-06] MEDS: MULTIVITAMIN TAB PO SCH (09:00)
[2023-01-06] MEDS: ISOSORBIDE MONO EXTENDED REL 30 MG TABCR PO SCH (09:00)
[2023-01-06] MEDS: ATORVASTATIN 40 MG TAB PO SCH (09:00)
[2023-01-06] MEDS: POLYETHYLENE (MIRALAX) 17 GM PACK PO SCH (09:01)
[2023-01-06] MEDS: LANTUS PER UNIT CHARGE SQ SCH (09:05)
[2023-01-06] MEDS: INSULIN ASPART PER UNIT CHARGE SC SCH ×4 (09:06→20:30)
[2023-01-06 11:31] LABS: BUN Creatinine Ratio 25.8 (10-20); Calcium 9.3 mg/dl (8.6-10.3); Creatinine Clr Calc Pharmacy 17.6 ml/min; Est GFR (African American) 22.2 ml/min; Est GFR (Non-African American) 19.1 ml/min
[2023-01-06] MEDS ORDERED: PATIROMER CALCIUM SORBITEX 8.4 GM PACK PO ONE (16:58)
--- NOTE | 2023-01-06 20:25 | Hospitalist Progress Note ---
Date of Service January 06, 2023 Assessment & Plan (1) LEV (acute kidney injury): Plan: 2nd to recent diuresis for decompensated CHF + junctional bradycardia with decreased renal perfusion. Peak Cr 3.1; now 2.3. Fortunately improved with extensive supportive care measures including holding her Entresto, holding diuretics, bicarbonate infusion, etc. BMP am. HOLDING Entresto, aldactone, lasix, potassium supplements, and any other nephrotoxic agent. (2) Junctional bradycardia: Plan: Developed such the AM of 01/04/23. This was in the setting of coreg + amiodarone use. Both meds have been stopped. Converted back to NSR late in the day on 01/04, then converted back to junctional bradycardia on 01/05. As her hyperkalemia resolved she finally converted back to NSR. Remains in NSR today. Amazingly she was relatively asymptomatic from the junctional bradycardia over the weekend although last evening she "didn't feel well." Appreciate Dr Otero's consultation and Dr Mcpherson/Cyn Cartagena's consultation. Cont to hold coreg/amiodarone. If she converts back to junctional pacemaker insertion would be needed. (3) Hyperkalemia: Plan: 2nd to LEV in the setting of chronic Entresto use (on hold since 01/03), aldactone (on hold since 01/04), potassium supplements (on hold since 01/04). s/p numerous therapies to correct such (bicarb, calcium, patiromer, etc). resolved but K remains top-normal. give another dose of patiromer today. BMP am. (4) Acute on chronic heart failure with preserved ejection fraction (HFpEF): Plan: decompensation resolved IV lasix stopped 01/03/23 aldactone stopped 01/04/23 the drop in lasix dosing from daily to QOD in the outpatient setting may have contributed to this decompensation (dose reduction was a few weeks ago due to patient being azotemic) cannot rule out dietary indiscretion or med compliance issues cannot rule out arrhythmia contributing to decompensation coreg, amiodarone, entresto, aldactone, lasix remain on hold due to #1, #2, #3 care d/w Dr Otero and Dr Mcpherson/Cyn Cartagena appreciate their assistance agree with palliative care consultation (5) CAD (coronary artery disease): Plan: last cardiac cath was by Dr Rivera - 11/2021: Multivessel coronary artery disease -50% ostial left main (IVUScalcified, 50 to 60%, CSA 5.4 mm) Sequential RCA lesions (60-70% proximal ISR, 60% mid, 50% latemid) 30 to 40% ostial circumflex per documentation was referred to [place] for consideration of revascularization but never had such cont statin, plavix, etc aspirin added back by cardiology today coreg stopped due to junctional bradycardia (6) Hyperlipemia: Plan: cont statin (7) PAD (peripheral artery disease): Plan: s/p fem-fem bypass [address] Cash cont plavix cont statin cont asa - added back by cardiology today (8) Paroxysmal atrial fibrillation: Plan: no PAF seen while here she is not on chronic anticoagulation due to prior GI bleeding again coreg + amiodarone stopped due to junctional bradycardia (9) Type 2 diabetes mellitus with diabetic neuropathy, unspecified: Plan: a1c 6.4% controlled cont lantus 10 units once daily cont loose novolog coverage holding glimepiride (10) Chronic kidney disease, stage IV (severe): Plan: baseline CrCL 20s with superimposed LEV as noted above baseline Cr about 1.5 to 1.9 daily BMP (11) Iron deficiency anemia: Plan: s/p venofer 200mg IV x 1 on 01/03 s/p venofer 300mg IV x 1 on 8/5 H/H stable had GI bleeding earlier this year due to ischemic colitis (12) S/P TAVR (transcatheter aortic valve replacement): Plan: 01/2022 - [facility] follows with Dr Prem Mcpherson - [facility] [place] last echo 2022 with preserved AV function (13) Ischemic colitis: Plan: 2022 is supposed to f/u at [facility] for this - timing uncertain has had worsening anemia due to blood loss from this event no GI symptoms at this time replaced low Fe is on schedule for colonoscopy later this month due to abnormal cecum as seen on CT a/p in 11/2022 she is poor candidate for procedures in light of her numerous comorbidities (14) Hyponatremia: Plan: 2nd LEV serial BMPs improving (15) HTN (hypertension): Plan: coreg, entresto, aldactone, lasix all on hold amlodipine 10mg BID remains hydralazine 50mg TID remains while the above meds are on hold will use imdur 30mg daily in gilberto Plan DVT proph - heparin 5000 BID updated pt's daughter Mamie Singh by phone multiple times this weekend extensive discussion held with patient and Mamie along with another daughter today at bedside discussed critical nature of the events of this weekend especially yesterday discussed the complexity of her numerous comorbidities discussed that it is increasingly more difficult to balance and control all of these comorbidities patient has poor insight into her disease state - at one point she asked "can't you just give me a medication for my heart?" we discussed code status - patient and daughters stated they wouldn't "want machines" but in the same conversation daughters in particular said "we would want everything done" to help her code status still needs refinement discussed that the recurrent hospitalizations of this year likely will continue given her fragile state recommended palliative care consultation - they were agreeable - consult placed support given to both Ms Gould & her daughters gave encouragement Dr Mcpherson and Ms Cartagena made aware of the above Admission and Anticipated Discharge Date Admission Date: January 01, 2023 Subjective events of overnight noted fortunately her hyperkalemia resolved with bicarbonate drip and other interventions creatinine also improved thru the night she felt poorly with some dyspnea in the middle of the night - this is resolved junctional bradycardia resolved overnight - now in NSR during my visit she was sitting up in bed; 2 daughters were at bedside we had lengthy conversation about the events of the last few days and particularly the last 24 hours see assessment/plan for further details patient denies any dyspnea, chest pain, or orthopnea at this time denies dizziness eating/drinking without difficulty no new complaints Review of Systems Review of Systems: gen - no fevers cv - no chest pain, did have PND last night pulm - no cough GI - no nausea/emesis - voiding w/o difficulty Physical Exam Physical Exam: gen - NAD, sitting at side of bed, looks better than yesterday neck - no JVD sitting upright mouth - MMM heart - RRR, s1 s2, 1-2/6 IVELISSE RUSB lungs - minimal crackles bases; otherwise CTA b/l; no wheeze; no increased work of breathing abd - soft NT ND BS+ ext - no ankle edema b/l; pulses 1+ b/l; left thigh is slightly bigger than right thigh (baseline) psych - poor insight, awake/alert Results & Data Results & Data Vital Signs (Past 12 Hours) Vital Signs Temp Pulse Pulse Resp BP Pulse Ox O2 Del Method 01/06/23 19:42 36.7 C 66 16 187/63 H 95 Room Air 01/06/23 18:18 66 01/06/23 15:34 36.5 C 83 18 162/63 H 93 Room Air 01/06/23 11:14 36.5 C 73 18 185/64 H 97 Room Air 01/06/23 11:10 66 Laboratory Results Laboratory Results - last 24 hr 01/05/23 01/05/23 01/05/23 19:46 22:29 22:29 VBG pH 7.41 VBG pCO2 37 L VBG pO2 47 VBG HCO3 24 VBG O2 Saturation 79.2 VBG Base Excess -0.8 Sodium 129 L Potassium 6.3 H* 6.1 H* Chloride 98 Carbon Dioxide 22 Anion Gap 9 BUN 70 H Creatinine 3.18 H Est Cr Clr Drug Dosing 12.9 Est GFR ( Amer) 15.2 Est GFR (Non-Af Amer) 13.1 BUN/Creatinine Ratio 22.0 H Glucose 151 H POC Glucose Calcium 9.4 Magnesium 2.4 Random Cortisol 01/05/23 01/06/23 01/06/23 22:29 03:13 06:55 VBG pH VBG pCO2 VBG pO2 VBG HCO3 VBG O2 Saturation VBG Base Excess Sodium 131 L 134 L Potassium 5.2 H 4.7 Chloride 99 101 Carbon Dioxide 25 25 Anion Gap 7 8 BUN 69 H 62 H Creatinine 2.86 H D 2.53 H D Est Cr Clr Drug Dosing 14.3 16.2 Est GFR ( Amer) 17.3 20.1 Est GFR (Non-Af Amer) 14.9 17.3 BUN/Creatinine Ratio 24.1 H 24.5 H Glucose 66 L 96 POC Glucose Calcium 9.5 9.3 Magnesium Random Cortisol 11.80 01/06/23 01/06/23 01/06/23 07:52 10:32 11:29 VBG pH VBG pCO2 VBG pO2 VBG HCO3 VBG O2 Saturation VBG Base Excess Sodium 132 L Potassium 5.0 Chloride 100 Carbon Dioxide 25 Anion Gap 7 BUN 60 H Creatinine 2.33 H Est Cr Clr Drug Dosing 17.6 Est GFR ( Amer) 22.2 Est GFR (Non-Af Amer) 19.1 BUN/Creatinine Ratio 25.8 H Glucose 177 H POC Glucose 87 186 H Calcium 9.3 Magnesium Random Cortisol 01/06/23 01/06/23 17:32 20:05 VBG pH VBG pCO2 VBG pO2 VBG HCO3 VBG O2 Saturation VBG Base Excess Sodium Potassium Chloride Carbon Dioxide Anion Gap BUN Creatinine Est Cr Clr Drug Dosing Est GFR ( Amer) Est GFR (Non-Af Amer) BUN/Creatinine Ratio Glucose POC Glucose 283 H 184 H Calcium Magnesium Random Cortisol PG Care Time/CCT Total # of Minutes Spent Total Time Spent with Patient: Total time spent is greater than 50% in coordination of care (as documented) at patient's floor/unit and/or counseling patient: Coding Level of Care Code 49781 SUB INP/OBS CARE 3/50MIN Diagnoses LEV (acute kidney injury) N17.9 Junctional bradycardia R00.1 Hyperkalemia E87.5 Acute on chronic heart failure with preserved ejection fraction (HFpEF) I50.33 CAD (coronary artery disease) I25.10 Hyperlipemia E78.5 PAD (peripheral artery disease) I73.9 Paroxysmal atrial fibrillation I48.0 Type 2 diabetes mellitus with diabetic neuropathy, unspecified E11.40 Chronic kidney disease, stage IV (severe) N18.4 Iron deficiency anemia D50.9 S/P TAVR (transcatheter aortic valve replacement) Z95.2 Ischemic colitis K55.9 Hyponatremia E87.1 HTN (hypertension) I10
[2023-01-06] MEDS: amLODIPine BESYLATE 5 MG TAB PO SCH (20:27)
[2023-01-07] MEDS ORDERED: ALUMINUM/MAGNESIUM SUSP 30 ML UDC PO STA (00:06)
[2023-01-07] MEDS: ACETAMINOPHEN 325 MG TAB PO PRN (03:11)
[2023-01-07] MEDS ORDERED: SIMETHICONE 80 MG CHEW PO ONE (03:31)
[2023-01-07 08:06] LABS: BUN Creatinine Ratio 26.5 (10-20); Calcium 9.1 mg/dl (8.6-10.3); Creatinine Clr Calc Pharmacy 22.3 ml/min; Est GFR (African American) 29.3 ml/min; Est GFR (Non-African American) 25.3 ml/min; Magnesium 2.6 mg/dl (1.7-2.4); Potassium 4.6 mmol/L (3.5-5.1)
[2023-01-07 08:14] LABS: Troponin I High Sensitivity 17.8 pg/ml (0-14)
--- NOTE | 2023-01-07 08:14 | Hospitalist Progress Note ---
Date of Service January 07, 2023 Assessment & Plan (1) LEV (acute kidney injury): Plan: 2nd to recent diuresis for decompensated CHF + junctional bradycardia with decreased renal perfusion. Peak Cr 3.1; now 1.85, with resolution in hyperkalemia. Fortunately improved with extensive supportive care measures including holding her Entresto, holding diuretics, bicarbonate infusion, etc. HOLDING Entresto, Aldactone, Lasix, potassium supplements, and any other nephrotoxic agent. (2) Junctional bradycardia: Plan: Developed such the AM of 01/04/23. This was in the setting of Coreg + amiodarone use. Both meds have been stopped for now. NSR for now on tele. Fortunately she was relatively asymptomatic from the junctional bradycardia over the weekend although last evening she "didn't feel well." Appreciate Dr Otero's consultation and Dr Mcpherson/Cyn Cartagena's consultation. If she converts back to junctional pacemaker insertion would be needed, but trying to avoid if possible given comorbidities. (3) Hyperkalemia: Plan: 2nd to LEV in the setting of chronic Entresto use (on hold since 01/03), aldactone (on hold since 01/04), potassium supplements (on hold since 01/04). s/p numerous therapies to correct such (bicarb, calcium, patiromer, etc). Resolved Daily BMP (4) Acute on chronic heart failure with preserved ejection fraction (HFpEF): Plan: Decompensation resolved IV lasix stopped 01/03/23 Aldactone stopped 01/04/23 The drop in lasix dosing from daily to QOD in the outpatient setting may have contributed to this decompensation (dose reduction was a few weeks ago due to patient being azotemic) cannot rule out dietary indiscretion or med compliance issues, nor arrhythmia contributing to decompensation Coreg, amiodarone, entresto, aldactone, lasix remain on hold, isosorbide is continued Palliative care discussed with family today, conditional code added to chart, ultimately Adri does not want to "be on machines" or life support but does until that time want to pursue all medical care. (5) CAD (coronary artery disease): Plan: last cardiac cath was by Dr Rivera - 11/2021: Multivessel coronary artery disease -50% ostial left main (IVUScalcified, 50 to 60%, CSA 5.4 mm) Sequential RCA lesions (60-70% proximal ISR, 60% mid, 50% latemid) 30 to 40% ostial circumflex per documentation was referred to [facility] for consideration of revascularization but never had such cont statin, plavix, asa Coreg stopped due to junctional bradycardia (6) Hyperlipemia: Plan: cont statin (7) PAD (peripheral artery disease): Plan: s/p fem-fem bypass [address] Cash cont plavix cont statin cont asa (8) Paroxysmal atrial fibrillation: Plan: no PAF seen while here she is not on chronic anticoagulation due to prior GI bleeding Again coreg + amiodarone stopped due to junctional bradycardia (9) Type 2 diabetes mellitus with diabetic neuropathy, unspecified: Plan: a1c 6.4% controlled cont lantus 10 units once daily cont loose novolog coverage holding glimepiride (10) Chronic kidney disease, stage IV (severe): Plan: with superimposed LEV as noted above baseline Cr about 1.5 to 1.9, at baseline today can resume some diuresis tomorrow if ok per Cardio (11) Iron deficiency anemia: Plan: s/p venofer IV on 01/03 and 8 H/H stable had GI bleeding earlier this year due to ischemic colitis (12) S/P TAVR (transcatheter aortic valve replacement): Plan: 01/2022 - [facility] follows with Dr Prem Mcpherson - [facility] last echo 2022 with preserved AV function (13) Ischemic colitis: Plan: is supposed to f/u at [facility] for this - timing uncertain has had worsening anemia due to blood loss from this event no GI symptoms at this time replaced low Fe is on schedule for colonoscopy later this month due to abnormal cecum as seen on CT a/p in 11/2022 she is poor candidate for procedures in light of her numerous comorbidities (14) Hyponatremia: Plan: 2nd LEV serial BMPs (15) HTN (hypertension): Plan: coreg, entresto, aldactone, lasix all on hold amlodipine 10mg BID remains hydralazine TID remains cont Imdur for now Plan DVT proph - heparin 5000 BID updated pt's daughter Mamie Singh by phone Admission and Anticipated Discharge Date Admission Date: January 01, 2023 Subjective Breathing better today, currently on 2LNC. No other complaints. Review of Systems Review of Systems: All systems reviewed & are unremarkable except as noted in Subjective Physical Exam Constitutional: WD/WN, vitals as above Respiratory: normal respiratory effort, lungs clear to auscultation Cardiovascular: RRR, no murmur, no edema Gastrointestinal (Abdomen): normal bowel sounds, soft, nontender, no hepatosplenomegaly Skin: no rashes, warm and dry Psychiatric: A+Ox3, euthymic affect Results & Data Results & Data Vital Signs (Past 12 Hours) Vital Signs Temp Pulse Resp BP Pulse Ox O2 Del Method O2 Flow Rate 01/07/23 08:00 36.6 C 88 18 169/70 H 97 Room Air 01/07/23 03:13 36.9 C 76 18 178/72 H 93 Nasal Cannula 2.0 01/06/23 23:05 37.0 C 69 16 179/52 H 93 Nasal Cannula 2.0 01/06/23 20:55 Room Air PG Care Time/CCT Total # of Minutes Spent Total Time Spent with Patient: Total time spent is greater than 50% in coordination of care (as documented) at patient's floor/unit and/or counseling patient: Coding Level of Care Code 82275 SUB INP/OBS CARE 3/50MIN Diagnoses LEV (acute kidney injury) N17.9 Junctional bradycardia R00.1 Hyperkalemia E87.5 Acute on chronic heart failure with preserved ejection fraction (HFpEF) I50.33 CAD (coronary artery disease) I25.10 Hyperlipemia E78.5 PAD (peripheral artery disease) I73.9 Paroxysmal atrial fibrillation I48.0 Type 2 diabetes mellitus with diabetic neuropathy, unspecified E11.40 Chronic kidney disease, stage IV (severe) N18.4 Iron deficiency anemia D50.9 S/P TAVR (transcatheter aortic valve replacement) Z95.2 Ischemic colitis K55.9 Hyponatremia E87.1 HTN (hypertension) I10
[2023-01-07] MEDS: PANTOprazole 40 MG TAB PO SCH ×2 (08:21→20:42)
[2023-01-07] MEDS: ASPIRIN 81 MG ECTAB PO SCH (08:21)
[2023-01-07] MEDS: amLODIPine BESYLATE 5 MG TAB PO SCH ×2 (08:21→20:41)
[2023-01-07] MEDS: hydrALAZINE TAB 50 MG TAB PO SCH (08:21)
[2023-01-07] MEDS: MAGNESIUM OXIDE 400 MG TAB PO SCH ×2 (08:21→20:42)
[2023-01-07] MEDS: ISOSORBIDE MONO EXTENDED REL 30 MG TABCR PO SCH (08:22)
[2023-01-07] MEDS: MULTIVITAMIN TAB PO SCH (08:22)
[2023-01-07] MEDS: CLOPIDOGREL BISULFATE 75 MG TAB PO SCH (08:22)
[2023-01-07] MEDS: ATORVASTATIN 40 MG TAB PO SCH (08:23)
[2023-01-07] MEDS: HEPARIN SOD 5,000 UNIT/0.5 ML VIAL SQ SCH ×2 (08:23→20:41)
[2023-01-07] MEDS: POLYETHYLENE (MIRALAX) 17 GM PACK PO SCH (08:23)
[2023-01-07] MEDS: INSULIN ASPART PER UNIT CHARGE SC SCH ×4 (08:27→20:43)
[2023-01-07] MEDS: LANTUS PER UNIT CHARGE SQ SCH (08:27)
--- NOTE | 2023-01-07 09:28 | Cardiology Progress Note ---
Date of Service January 07, 2023 Assessment & Plan (1) Acute on chronic heart failure with preserved ejection fraction (HFpEF): (2) LEV (acute kidney injury): (3) Junctional bradycardia: (4) High degree atrioventricular block: (5) HTN (hypertension): Plan Cardiac History: 1. Accelerated hypertension. 2. Non-ST elevation myocardial infarction in October 2018 with a drug-eluting stent placed to the ostial RCA. 3. Residual mid LAD disease in the range of 20-30%; mid circumflex disease in the range of 60-70%; mid to distal RCA disease in the range of 40-50%. 4. Fem-fem bypass, 2020. 5. Severe aortic stenosis, status post 26 mm Austin Rosie 3 TAVR with ostial left main stenting 01/2022. 6. Echocardiogram 03/01/22 with normal LV size and function with mild left ventricular hypertrophy, type 2 diastolic dysfunction, status post 26 mm Austin Rosie 3 TAVR valve with expectant gradients, mild to moderate pulmonary hypertension with PA pressure of 47 mmHg. 7. Diabetes mellitus type 2. 8. Negative CT scan for renal artery stenosis 11/2020. 9. Acute on chronic diastolic heart failure admission, 05/2021 and 07/2022. 10. History of a CVA in 2018. 11. Hyponatremia worsened by hydrochlorothiazide. 12. Normal carotid ultrasound and no evidence of subclavian stenosis, January 09, 2021. 13. Hyperlipidemia. 14. 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 Gould was dyspneic overnight again last night but resolved this morning. Her HS trop was only marginally elevated, no further abnormal rhythms overnight on telemetry, and she is not fluid overloaded making cardiac source of her sob less likely. Her potassium has normalized. Her kidney function is improving. Her spironolactone and Entresto should continue to be held. She appears euvolemic. Her lower extremity edema is resolved. She is down 10L. Her fluid and electrolyte status has been very difficult to control in the outpatient setting. Partly due to the progressive nature of her disease, partly due to medication mis-management, and partly due to dietary indiscretion. Overall, it's been very hard to keep her out of heart failure without sending her into a kidney injury and/or electrolyte disturbance. She continues on clopidogrel and aspirin for her history of PAD and CAD. She continues on high dose statin therapy. She is unable to be anticoagulated for her history of afib due to multiple GI bleeds requiring transfusion. No afib this admission She is hypertensive. Her amlodipine was resumed last evening but multiple antihypertensives are being held. I will increase her po hydralazine for better blood pressure control. She had intermittent episodes of high degree AV block/junctional rhythm which as resolved over yesterday and last night with holding her amiodarone, coreg and resolution of her hyperkalemia. Hopefully, a pacemaker can be avoided. As I discussed with Adri yesterday and recently in the clinic, her complex medical history and comorbidities are progressive. This is the 6th hospitalizati on in the last year. Her fci prognosis is poor. She is to have discussion with palliative care today. Admission and Anticipated Discharge Date Admission Date: January 01, 2023 Subjective Ms. Gould felt sob overnight and was placed on supplemental O2. She feels better this morning and is without other complaints. Review of Systems Review of Systems: All systems reviewed & are unremarkable except as noted in HPI & below Physical Exam Constitutional: WD/WN, vitals as above Respiratory: normal respiratory effort, lungs clear to auscultation Cardiovascular: Rate/Rhythm: regular rate and regular rhythm Heart Sounds: + murmur (rusb 3/6 systolic murmur ) Extremities: no edema Neurologic: moves all extremities and awake Psychiatric: A+Ox3, euthymic affect Results & Data Vital Signs (Past 12 Hours) Vital Signs Temp Pulse Pulse Resp BP Pulse Ox O2 Del Method 01/07/23 09:10 72 01/07/23 08:00 36.6 C 88 18 169/70 H 97 Room Air 01/07/23 03:13 36.9 C 76 18 178/72 H 93 Nasal Cannula 01/06/23 23:05 37.0 C 69 16 179/52 H 93 Nasal Cannula O2 Flow Rate 01/07/23 09:10 01/07/23 08:00 01/07/23 03:13 2.0 01/06/23 23:05 2.0
[2023-01-07] MEDS: hydrALAZINE HCL 25 MG TAB PO SCH ×2 (13:04→20:42)
[2023-01-07] MEDS ORDERED: SIMETHICONE 80 MG CHEW PO PRN (13:30)
--- NOTE | 2023-01-07 13:46 | Palliative Care Consultation ---
Date of Consultation January 07, 2023 Assessment & Plan (1) Dyspnea on exertion: with HFpEF, CAD and anemia Her goal is to get back to the way she felt prior to admission when she was doing light housework. (2) Palliative care encounter: I talked with Mrs. Gould about how she is coping with her illness and she told me several times that she wishes that we could fix her heart so she could breathe better and do the things that she wants to do. She understands that she has multiorgan involvement and that her health is fragile. I asked her if she had ever considered what she would want for her care if she were seriously ill and she told me that she had not. She does note that she would not want to be on life support. She values time with her family above everything else and if she were unable to interact with her family, that would not be living for her. Other than that, she did not feel that there was any limit to what she would be willing to go through to "get better". We talked about concern that she may not be able to get much better than she is right now and how she felt about that. She again told me that she would want whatever interventions necessary to prolong her life, short of being on machines. I also spoke with her daughter Mamie. Mamie is tearful and struggling with her mother's illness. They are very close and Mrs. Gould has been both mother and father to her since her father when she was 17. Mamie expressed concern that we were giving up on her mother. I explained that my role as palliative care physician is to understand what is important to her mother to help ensure that she receives the care that matches her goals. I assured her that we were not talking about withdrawing care but rather planning for the future if Mrs. Gould is unable to speak for herself. Mamie told me that she and her siblings are all in agreement that they would not want their mother to be on machines. We talked about code status and they would not want intubation but would want to "at least try CPR". I explained the importance of vent support for successful CPR and she voices understanding but would want trial of chest compressions, meds or defibrillation if indicated. Code status changed to conditional code to reflect wishes of Mrs. Gould and her family. History of Present Illness Reason for Consultation: goals of care Requesting Physician: Dr. Curry Attending Physician: Latisha Ramirez DO History of Present Illness 82 yo lady admitted with acute hypoxice respiratory failure and LEV due to chronic heart failure with preserved EF. She also has a history of diabetes, afib, PVD and gi bleed with abnormal thickening in the cecum. She is scheduled for colonoscopy as an outpatient later this month. She also has history of mesenteric ischemia in September of this year. She has had at least four hospitalizations in the last six months. Her renal function has improved and creatinine today is 1.85 but has been down to 1.2s in September. Her GFR is 25. She denies pain at this time but does have dyspnea with exertion. She tells me that she was able to do light housework and basic ADLs at home without dyspnea prior to admission. She lives with her daughter in [place]. Allergies Allergy/AdvReac Type Severity Reaction Status Date / Time fenofibrate AdvReac Intermediate INCREASED Verified 11/01/22 20:39 URINATION metoprolol AdvReac Intermediate VOMIT,DIARR Verified 11/01/22 20:39 HEA valsartan AdvReac Intermediate Weakness Verified 11/01/22 20:39 verapamil AdvReac Intermediate INCREASED Verified 11/01/22 20:39 URINATION Home Medications Medication Instructions Recorded Confirmed Type fish, borage, flaxseed oils-omega 1 cap PO QDD 12/01/20 01/01/23 History 3,6,9 comb no.1 1,200 mg capsule ([place] 3-6-9) atorvastatin 40 mg tablet 40 mg PO QAM 02/26/21 01/01/23 History multivitamin 1 tab PO QAM 02/26/21 01/01/23 History amiodarone 200 mg tablet 200 mg PO QAM 07/01/21 01/01/23 History pantoprazole 40 mg tablet,delayed 40 mg PO BID 07/01/21 01/01/23 History release glimepiride 4 mg tablet 4 mg PO BID 12/21/21 01/01/23 History carvedilol 6.25 mg tablet 6.25 mg PO BID #60 tabs 12/27/21 01/01/23 Rx magnesium oxide 400 mg (241.3 mg 400 mg PO BID #60 tabs 12/27/21 01/01/23 Rx magnesium) tablet amlodipine 10 mg tablet 10 mg PO BID 06/20/22 01/01/23 History sacubitril 24 mg-valsartan 26 mg 1 tab PO BID 09/20/22 01/01/23 History tablet (Entresto) spironolactone 25 mg tablet 25 mg PO QAM 09/20/22 01/01/23 History hydralazine 100 mg tablet 50 mg PO TID #30 tabs 10/06/22 01/01/23 Rx clopidogrel 75 mg tablet 75 mg PO DAILY 11/01/22 01/01/23 History furosemide 40 mg tablet 40 mg PO DIRECTED 01/01/23 01/01/23 History Patient History Medical History Acute non-ST elevation myocardial infarction (NSTEMI) Acute on chronic heart failure with preserved ejection fraction (HFpEF) LEV (acute kidney injury) Anemia Bradycardia CAD (coronary artery disease) CVA (cerebral vascular accident) (~2019) no deficits Elevated troponin Hyperkalemia Hyperlipemia Hyponatremia Hyponatremia Hypoxia Myocardial infarct, old follows with Dr. Mcpherson Occlusion of right iliac artery PAD (peripheral artery disease) Pneumonia hx S/P angiogram of extremity (02/02/21) Type 2 diabetes mellitus with diabetic neuropathy, unspecified NIDDM Surgical History H/O removal of cyst right abdominal area History of bunionectomy of right great toe History of cardiac cath (~2018) History of heart artery stent (~2019) x1. at [facility]. Status post ORIF of fracture of ankle Family History Other No family history of adverse response to anesthesia Social History Smoking Status: Former smoker Tobacco Type: Cigarettes Cigarettes Per Day: 1 Pack; Second Hand Exposure: No; Do You Dip or Chew Tobacco: No; Tobacco Cessation Education Requested by Patient: No Hx Alcohol Use: Yes Alcohol type: other Hx Substance Use: No Preferred Language: Romanian Communication Ability: Effective Communication Ability Comment: difficulty comprehending at times - dtr, Mamie is typically her caregiver Franchise Manager Required: No Beliefs That Will Affect Care: None marital status: / Current Living Situation: Family Current Living Situation Comment: currently moving in with daughter current occupational status: retired How many Children do You have: 1 Other Information That Helps Us Care for You: No Feels Safe at Home: Yes Safety Concerns: Feels Safe At This Time Assistive Devices: Walker Review of Systems Review of Systems: ESAS Pain 0/3 Dyspnea 1/3 Nausea 0/3 Drowsiness 0/3 Physical Exam Constitutional: no acute distress Respiratory: normal respiratory effort; no labored breathing Cardiovascular: Rate/Rhythm: regular rate and regular rhythm Musculoskeletal: Extremities: extremities normal to inspection Neurologic: Speech / Cognition: normal cognition Results & Data Vital Signs (Past 12 Hours) Vital Signs Temp Pulse Pulse Resp BP Pulse Ox O2 Del Method 01/07/23 11:57 98.2 F 69 20 145/79 H 97 Room Air 01/07/23 09:10 72 01/07/23 08:00 97.9 F 88 18 169/70 H 97 Room Air 01/07/23 03:13 98.4 F 76 18 178/72 H 93 Nasal Cannula O2 Flow Rate 01/07/23 11:57 01/07/23 09:10 01/07/23 08:00 01/07/23 03:13 2.0 PG Care Time/CCT Total # of Minutes Spent Total Time Spent: 62 Total Time Spent with Patient: Total time spent is greater than 50% in coordination of care (as documented) at patient's floor/unit and/or counseling patient:goals of care, code status, patient and family education and support [id number] Coding Level of Care Code 23133 INT INP/OBS CARE 2/55MIN Diagnoses Dyspnea on exertion R06.09 Palliative care encounter Z51.5
[2023-01-07] MEDS: ONDANSETRON 4 MG OD TAB PO PRN (22:43)
[2023-01-07] MEDS ORDERED: PROCHLORPERAZINE MALEATE 5 MG TAB PO SCH (23:45)
[2023-01-07] MEDS ORDERED: ONDANSETRON 4 MG OD TAB PO STA (23:46)
[2023-01-07] MEDS ORDERED: PROCHLORPERAZINE MALEATE 5 MG TAB PO PRN (23:49)
[2023-01-07] MEDS ORDERED: COUGH DROP (SUGAR FREE) LOZ 24 LOZ/1 BOX BUCCAL PRN (23:54)
[2023-01-07] MEDS ORDERED: MELATONIN 3 MG TAB PO PRN (23:56)
[2023-01-08] MEDS: BENZONATATE 100 MG CAPSULE PO PRN
[2023-01-08] MEDS ORDERED: ALBUT/IPRATROP 3MG/0.5MG NEB 3 ML VIAL NEB STA (04:59)
--- NOTE | 2023-01-08 06:41 | Communication Note ---
Date of Service: January 08, 2023 I was notified overnight that patient was becoming sob with desaturations into mid 80s requiring 5-6L O2 to sustain into the 90s. Lungs sounded clear. I did obtain a CXR which appeared similar to previous. I did not see an indication for diuresis at this time. Gave one duoneb treatment. Patient stable and sleeping comfortably. Resident Activity Tracking Resident Involvement: Resident Care Provided Care Provided: Adult [facility]
[2023-01-08] MEDS ORDERED: ALBUT/IPRATROP 3MG/0.5MG NEB 3 ML VIAL ONE (07:09)
--- NOTE | 2023-01-08 07:09 | XRay Report ---
XR chest 1V portable HISTORY: Shortness of breath. COMPARISON: Chest 01/01/2023. FINDINGS: No pneumothorax. The heart remains mildly enlarged. A cardiac valve prosthesis is again not ed. Interstitial pulmonary edema, small bilateral pleural effusions, bibasilar densities persist. IMPRESSION: No significant change in the pulmonary edema, small bilateral pleural effusions, and patchy bibasilar densities. ACT 112: Negative or not required by law. Electronically signed by: Alistair Chavez M.D. 01/08/2023 7:07 AM
--- NOTE | 2023-01-08 08:21 | Hospitalist Progress Note ---
Date of Service January 08, 2023 Assessment & Plan (1) Acute respiratory failure with hypoxia: Plan: Today with worsening hypoxia up to 10 L Oxymask at times after activity, feels comfortable on increased oxygen No leukocytosis, procal detectable but not true elevated, but will treat as PNA at this time Covering with Zosyn/doxy, MRSA nares pending History of about 18 pack years of smoking over 50 years ago, with some wheezing on exam, could be some amount of pulmonary disease secondary to remote smoking history, no formal COPD diagnosis in the past Will give IV steroids, Mucinex, scheduled and prn nebulizers as well Given Lasix 20mg IV x1 today after discussion with Dr. Mcpherson with Cardiology (believes she is relatively volume neutral) (2) LEV (acute kidney injury): Plan: 2nd to recent diuresis for decompensated CHF + junctional bradycardia with decreased renal perfusion. Peak Cr 3.1; now 1.82, with mild hyperkalemia K 5.2. Fortunately improved with extensive supportive care measures including holding her Entresto, holding diuretics, bicarbonate infusion, etc. HOLDING Entresto, Aldactone, potassium supplements, and any other nephrotoxic agent. (3) Junctional bradycardia: Plan: Developed such the AM of 01/04/23. This was in the setting of Coreg + amiodarone use. Both meds have been stopped for now. NSR on tele. Fortunately she was relatively asymptomatic from the junctional bradycardia over the weekend. Appreciate Cardiology consultation. If she converts back to junctional pacemaker insertion would be needed, but trying to avoid if possible given comorbidities. (4) Hyperkalemia: Plan: 2nd to LEV in the setting of chronic Entresto use (on hold since 01/03), aldactone (on hold since 01/04), potassium supplements (on hold since 01/04). s/p numerous therapies to correct such (bicarb, calcium, patiromer, etc). Resolved Daily BMP (5) Acute on chronic heart failure with preserved ejection fraction (HFpEF): Plan: Decompensation resolved IV lasix stopped 01/03/23 Aldactone stopped 01/04/23 The drop in lasix dosing from daily to QOD in the outpatient setting may have contributed to this decompensation (dose reduction was a few weeks ago due to patient being azotemic) Cannot rule out dietary indiscretion or med compliance issues, nor arrhythmia contributing to decompensation Coreg, amiodarone, Entresto, Aldactone, daily Lasix remain on hold, isosorbide continued Palliative care discussed with family, conditional code added to chart, ultimately Adri does not want to "be on machines" or life support but does until that time want to pursue all medical care. (6) CAD (coronary artery disease): Plan: Last cardiac cath was by Dr Rivera 11/2021: Multivessel coronary artery disease -50% ostial left main (IVUScalcified, 50 to 60%, CSA 5.4 mm) -Sequential RCA lesions (60-70% proximal ISR, 60% mid, 50% latemid) -30 to 40% ostial circumflex Per documentation was referred to [place] for consideration of revascularization but never had such Cont statin, Plavix, asa Coreg stopped due to junctional bradycardia (7) Hyperlipemia: Plan: Cont statin (8) PAD (peripheral artery disease): Plan: S/p fem-fem bypass [address] Cash Cont plavix, statin, asa (9) Paroxysmal atrial fibrillation: Plan: No PAF seen while here She is not on chronic anticoagulation due to prior GI bleeding Again coreg + amiodarone stopped due to junctional bradycardia (10) Type 2 diabetes mellitus with diabetic neuropathy, unspecified: Plan: A1c 6.4% Cont lantus 10 units once daily Cont loose novolog coverage Holding glimepiride (11) Chronic kidney disease, stage IV (severe): Plan: With superimposed LEV as noted above Baseline Cr about 1.5 to 1.9, at baseline today can resume some diuresis tomorrow if ok per Cardio (12) Iron deficiency anemia: Plan: S/p venofer IV on 01/03 and 8 H/H reviewed, Hgb 8.3 today without clear bleeding source, will Hemoccult stools given GIB history Had GI bleeding earlier this year due to ischemic colitis DVT ppx Heparin held while watching dropping Hgb (13) S/P TAVR (transcatheter aortic valve replacement): Plan: 01/2022 - [facility] Follows with Dr Prem Mcpherson - [facility] [place] Last echo 2022 with preserved AV function (14) Ischemic colitis: Plan: Is supposed to f/u at [facility] for this - timing uncertain Has had worsening anemia due to blood loss from this event No GI symptoms at this time Replaced low Fe Is on schedule for colonoscopy later this month due to abnormal cecum as seen on CT a/p in 11/2022, may need rescheduled given illness She is poor candidate for procedures in light of her numerous comorbidities (15) Hyponatremia: Plan: Mild, serial BMPs (16) HTN (hypertension): Plan: Coreg, Entresto, Aldactone, Lasix all on hold amlodipine 10mg BID remains hydralazine TID remains Cont Imdur for now Plan DVT proph - deferred given Hgb 8.3 updated pt's daughter Mamie Singh in person at bedside Admission and Anticipated Discharge Date Admission Date: January 01, 2023 Subjective With worsening cough and hypoxia overnight, was on 10L this AM, has been going from 6-10 throughout today. Feels better on supplemental oxygen, denies current cough. Denies pain, endorses nausea when she coughs a lot. Physical Exam Constitutional: WD/WN, vitals as above Respiratory: normal respiratory effort, comfortable on 6LNC, crackles in bases, intermittent wheeze Cardiovascular: RRR, no murmur, no edema Gastrointestinal (Abdomen): normal bowel sounds, soft, nontender, no hepatosplenomegaly Skin: no rashes, warm and dry Psychiatric: A+Ox3, euthymic affect Results & Data Results & Data Vital Signs (Past 12 Hours) Vital Signs Temp Pulse Pulse Resp BP Pulse Ox O2 Del Method 01/08/23 07:15 61 18 95 Nasal Cannula 01/08/23 07:07 37.1 C 65 19 144/62 H 93 Nasal Cannula 01/08/23 03:13 37.1 C 75 22 164/62 H 92 Nasal Cannula 01/07/23 23:00 75 01/07/23 22:44 36.9 C 81 20 191/65 H 91 Nasal Cannula O2 Flow Rate 01/08/23 07:15 4 01/08/23 07:07 4 01/08/23 03:13 6.0 01/07/23 23:00 01/07/23 22:44 3.0 PG Care Time/CCT Total # of Minutes Spent Total Time Spent with Patient: Total time spent is greater than 50% in coordination of care (as documented) at patient's floor/unit and/or counseling patient: Coding Level of Care Code 86134 SUB INP/OBS CARE 3/50MIN Diagnoses Acute respiratory failure with hypoxia J96.01 LEV (acute kidney injury) N17.9 Junctional bradycardia R00.1 Hyperkalemia E87.5 Acute on chronic heart failure with preserved ejection fraction (HFpEF) I50.33 CAD (coronary artery disease) I25.10 Hyperlipemia E78.5 PAD (peripheral artery disease) I73.9 Paroxysmal atrial fibrillation I48.0 Type 2 diabetes mellitus with diabetic neuropathy, unspecified E11.40 Chronic kidney disease, stage IV (severe) N18.4 Iron deficiency anemia D50.9 S/P TAVR (transcatheter aortic valve replacement) Z95.2 Ischemic colitis K55.9 Hyponatremia E87.1 HTN (hypertension) I10
[2023-01-08 08:46] LABS: Basophils # (auto) 0.01 K/uL (0-0.2); Basophils % (auto) 0.2 %; Hematocrit (blood only) 26.2 % (37.0-47.0); Hemoglobin 8.3 g/dl (12.0-16.0); Immature Granulocytes # (auto) 0.02 K/uL (0.01-0.20); Immature Granulocytes % (auto) 0.3 %; Lymphocytes # (auto) 0.53 K/uL (1.2-3.4); Mean Corpuscular Hemoglobin 27.9 pg (25.0-34.0); Mean Corpuscular Hgb Conc 31.7 g/dL (32.0-36.0); Mean Corpuscular Volume 87.9 fL (80.0-100.0); Mean Platelet Volume 11.9 fL (9.4-12.4); Monocytes # (auto) 0.71 K/uL (0.11-0.59); Monocytes % (auto) 10.7 %; Neutrophils # (auto) 5.36 K/uL (1.40-6.50); Neutrophils % (auto) 80.8 %; Platelet Count 213 K/uL (130-400); RDW Coefficient of Variation 16.1 % (11.5-14.5); RDW Standard Deviation 51.3 fL (36.4-46.3); Red Blood Count 2.98 M/uL (4.20-5.40); White Blood Count 6.63 K/ul (4.8-10.8)
[2023-01-08] MEDS: ISOSORBIDE MONO EXTENDED REL 30 MG TABCR PO SCH (08:53)
[2023-01-08] MEDS: MULTIVITAMIN TAB PO SCH (08:53)
[2023-01-08] MEDS: hydrALAZINE HCL 25 MG TAB PO SCH ×3 (08:53→20:16)
[2023-01-08] MEDS: PANTOprazole 40 MG TAB PO SCH ×2 (08:53→20:35)
[2023-01-08] MEDS: amLODIPine BESYLATE 5 MG TAB PO SCH ×2 (08:53→20:15)
[2023-01-08] MEDS: ATORVASTATIN 40 MG TAB PO SCH (08:53)
[2023-01-08] MEDS: ASPIRIN 81 MG ECTAB PO SCH (08:53)
[2023-01-08] MEDS: CLOPIDOGREL BISULFATE 75 MG TAB PO SCH (08:54)
[2023-01-08] MEDS: HEPARIN SOD 5,000 UNIT/0.5 ML VIAL SQ SCH (08:54)
[2023-01-08] MEDS: MAGNESIUM OXIDE 400 MG TAB PO SCH ×2 (08:54→20:35)
[2023-01-08] MEDS: POLYETHYLENE (MIRALAX) 17 GM PACK PO SCH (08:55)
[2023-01-08 08:56] LABS: Potassium 5.2 mmol/L (3.5-5.1)
[2023-01-08] MEDS: LANTUS PER UNIT CHARGE SQ SCH (08:59)
[2023-01-08] MEDS: INSULIN ASPART PER UNIT CHARGE SC SCH ×4 (09:00→20:28)
[2023-01-08 09:01] LABS: BUN Creatinine Ratio 29.1 (10-20); Creatinine Clr Calc Pharmacy 22.6 ml/min; Est GFR (African American) 29.9 ml/min; Est GFR (Non-African American) 25.8 ml/min
--- NOTE | 2023-01-08 09:26 | Cardiology Progress Note ---
Date of Service January 08, 2023 Assessment & Plan Admission and Anticipated Discharge Date Admission Date: January 01, 2023 Subjective She has shortness of breath this morning had it last night as well. It did improve with the nebulizer therapy. Her chest x-ray was unchanged from her prior. She denies any chest pain or chest pressure. She has had no palpitations. She denies any lightheadedness or dizziness. Her legs are not edematous. Her appetite remains so-so. Unfortunately she does not understand the complexity of her medical problems. Results & Data Vital Signs (Past 12 Hours) Vital Signs Temp Pulse Pulse Resp BP Pulse Ox O2 Del Method 01/08/23 08:00 Nasal Cannula 01/08/23 07:15 61 18 95 Nasal Cannula 01/08/23 07:07 37.1 C 65 19 144/62 H 93 Nasal Cannula 01/08/23 03:13 37.1 C 75 22 164/62 H 92 Nasal Cannula 01/07/23 23:00 75 01/07/23 22:44 36.9 C 81 20 191/65 H 91 Nasal Cannula O2 Flow Rate 01/08/23 08:00 2 01/08/23 07:15 4 01/08/23 07:07 4 01/08/23 03:13 6.0 01/07/23 23:00 01/07/23 22:44 3.0 Assessment & Plan (1) Acute on chronic heart failure with preserved ejection fraction (HFpEF): (2) LEV (acute kidney injury): (3) Junctional bradycardia: (4) High degree atrioventricular block: (5) HTN (hypertension): Plan Cardiac History: 1. Accelerated hypertension. 2. Non-ST elevation myocardial infarction in October 2018 with a drug-eluting stent placed to the ostial RCA. 3. Residual mid LAD disease in the range of 20-30%; mid circumflex disease in the range of 60-70%; mid to distal RCA disease in the range of 40-50%. 4. Fem-fem bypass, 2020. 5. Severe aortic stenosis, status post 26 mm Austin Rosie 3 TAVR with ostial left main stenting 01/2022. 6. Echocardiogram 03/01/22 with normal LV size and function with mild left ventricular hypertrophy, type 2 diastolic dysfunction, status post 26 mm Austin Rosie 3 TAVR valve with expectant gradients, mild to moderate pulmonary hypertension with PA pressure of 47 mmHg. 7. Diabetes mellitus type 2. 8[address] Negative CT scan for renal artery stenosis 11/2020. 9. Acute on chronic diastolic heart failure admission, 05/2021 and 07/2022. 10. History of a CVA in 2018. 11. Hyponatremia worsened by hydrochlorothiazide. 12. Normal carotid ultrasound and no evidence of subclavian stenosis, January 09, 2021. 13. Hyperlipidemia. 14. History of GI bleed x3 requiring transfusion 15. 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 If you look back she has had 6 hospitalizations in the last 8 to 9 months. Not all of these have been cardiac but it does suggest a rapid progression of her underlying cardiovascular disease. She has significant coronary disease and peripheral arterial disease. She has stiff noncompliant arteries along with a stiff and noncompliant left ventricle. This combination has led to challenges in controlling her volume status, large fluctuations in her blood pressure from high to low, and worsening renal disease. She has had multiple admissions now with creatinines greater than 3. She had shortness of breath again last night with hypoxemia. her chest x-ray was not significantly changed and she has been relatively negative from a volume standpoint without the need for diuretics. I think if you for trying to assess which are the most important heart failure medications for her, that would be Entresto and loop diuretics. If her creatinine continues to improve tomorrow I would consider restarting Entresto at a low dose. If she is more short of breath throughout the day she can be given small doses of IV diuretics with close monitoring of her renal function. She is in sinus rhythm on the monitor. She has had no further junctional rhythms. For now I would leave her off amiodarone and beta-blockers. I appreciate palliative care's input. I reviewed this with Adri and transition the conversation to hospice. We have tried this conversation in the outpatient setting with little understanding by Adri and her daughter. Given her multiple hospitalizations I think hospice is a reasonable option. We discussed that patients actually do better on hospice, have less pain and anxiety, live longer and have a better quality of life. We discussed on hospice she would not come back to the hospital. She wanted to think about this. Review of Systems Review of Systems: All systems reviewed & are unremarkable except as noted in HPI & below Physical Exam Constitutional: WD/WN, vitals as above Respiratory: normal respiratory effort, lungs clear to auscultation but coarse Cardiovascular: Rate/Rhythm: regular rate and regular rhythm Heart Sounds: + murmur (rusb 3/6 systolic murmur ) Extremities: no edema Neurologic: moves all extremities and awake Psychiatric: A+Ox3, euthymic affect
[2023-01-08] MEDS ORDERED: FUROSEMIDE INJ 20 MG/2 ML VIAL IV ONE (09:39)
--- NOTE | 2023-01-08 12:43 | CT Scan Report ---
CT chest diagnostic wo con CT DOSE: 880.55 mGy.cm HISTORY: worsening hypoxia now on 10L eval CHF vs. PNA TECHNIQUE: Multiaxial CT images of the chest were performed without contrast. A dose lowering techni que was utilized adhering to the principles of ALARA. COMPARISON: Chest 01/08/2023. Chest CT 04/26/2021. FINDINGS: No pneumothorax. The central airways are patent. Diffuse interlobular septal thickening wit h small bilateral pleural effusions consistent with pulmonary edema. Consolidation within the lower l obes posteriorly, right greater than left. This is nonspecific but may represent compressive atelecta sis. A pneumonia could also have a similar appearance. There are are near diffuse groundglass densiti es likely corresponding to the pulmonary edema. Small patchy nodular airspace opacities within the le ft lower lobe may represent a superimposed pneumonia. There is a 3 cm bleb within the base of the lef t lower lobe. No acute fractures within the chest. Degenerative changes noted within the shoulders. D iffuse body wall edema. Calcified plaque within the normal caliber thoracic aorta. An aortic valve pr osthesis is noted. Severe calcified plaque again noted at the proximal abdominal aorta. Limited views of the upper abdomen demonstrate a normal liver, spleen, and adrenal glands. Normal caliber esophagu s. Mild mediastinal lymphadenopathy which has slightly progressed. No pericardial effusion. The heart is mildly enlarged. IMPRESSION: 1. Moderate pulmonary edema with small bilateral pleural effusions. 2. Consolidation within the lower lobes posteriorly are nonspecific. This may represent compressive a telectasis from the pleural effusions or a pneumonia. 3. Small patchy nodular densities at the left lower lobe. This may represent a superimposed pneumonia . 4. Mild mediastinal lymphadenopathy which is slightly progressed. This is nonspecific but could be re active. ACT 112: Negative or not required by law. Electronically signed by: Alistair Chavez M.D. 01/08/2023 12:42 PM
[2023-01-08] MEDS: LEVALBUTEROL HCL 0.63 MG/3 ML NEB NEB SCH ×2 (12:57→19:01)
[2023-01-08] MEDS ORDERED: PIPERACILLIN/TAZOBACTAM 4.5 GM (over 30 mins) IV ONE (13:30)
[2023-01-08] MEDS: guaiFENesin 600 MG TABCR PO SCH ×2 (13:42→20:15)
[2023-01-08] MEDS: DOXYCYCLINE HYCLATE 100 MG in DEXTROSE 5% 100 ML IV SCH (17:01)
[2023-01-08] MEDS: methylPREDNISolone 40 MG in SYRINGE 0 ML IV SCH ×2 (17:20→20:36)
[2023-01-08] MEDS: PIPERACILLIN/TAZOBACTAM 4.5 GM in DEXTROSE 5% 100 ML IV SCH (20:35)
[2023-01-08] MEDS ORDERED: guaiFENesin 600 MG TABCR PO SCH (21:00)
[2023-01-09] MEDS: PIPERACILLIN/TAZOBACTAM 4.5 GM in DEXTROSE 5% 100 ML IV SCH ×3 (02:49→19:35)
[2023-01-09] MEDS: DOXYCYCLINE HYCLATE 100 MG in DEXTROSE 5% 100 ML IV SCH (06:58)
[2023-01-09] MEDS: LEVALBUTEROL HCL 0.63 MG/3 ML NEB NEB SCH ×3 (07:07→18:46)
[2023-01-09 07:09] LABS: Hematocrit (blood only) 25.8 % (37.0-47.0); Hemoglobin 8.2 g/dl (12.0-16.0); Mean Corpuscular Hemoglobin 27.5 pg (25.0-34.0); Mean Corpuscular Hgb Conc 31.8 g/dL (32.0-36.0); Mean Corpuscular Volume 86.6 fL (80.0-100.0); Mean Platelet Volume 12.1 fL (9.4-12.4); Platelet Count 212 K/uL (130-400); RDW Coefficient of Variation 15.8 % (11.5-14.5); RDW Standard Deviation 50.1 fL (36.4-46.3); Red Blood Count 2.98 M/uL (4.20-5.40); White Blood Count 5.14 K/ul (4.8-10.8)
[2023-01-09 07:24] LABS: Calcium 9.1 mg/dl (8.6-10.3); Creatinine Clr Calc Pharmacy 19.7 ml/min; Est GFR (African American) 25.3 ml/min; Est GFR (Non-African American) 21.8 ml/min; Potassium 5.3 mmol/L (3.5-5.1)
[2023-01-09] MEDS: methylPREDNISolone 40 MG in SYRINGE 0 ML IV SCH ×2 (09:02→20:09)
[2023-01-09] MEDS: guaiFENesin 600 MG TABCR PO SCH ×2 (09:03→20:08)
[2023-01-09] MEDS: MAGNESIUM OXIDE 400 MG TAB PO SCH ×2 (09:03→20:08)
[2023-01-09] MEDS: MULTIVITAMIN TAB PO SCH (09:03)
[2023-01-09] MEDS: PANTOprazole 40 MG TAB PO SCH ×2 (09:03→20:08)
[2023-01-09] MEDS: ASPIRIN 81 MG ECTAB PO SCH (09:03)
[2023-01-09] MEDS: hydrALAZINE HCL 25 MG TAB PO SCH ×3 (09:03→20:08)
[2023-01-09] MEDS: ISOSORBIDE MONO EXTENDED REL 30 MG TABCR PO SCH (09:04)
[2023-01-09] MEDS: CLOPIDOGREL BISULFATE 75 MG TAB PO SCH (09:04)
[2023-01-09] MEDS: POLYETHYLENE (MIRALAX) 17 GM PACK PO SCH (09:04)
[2023-01-09] MEDS: ATORVASTATIN 40 MG TAB PO SCH (09:04)
[2023-01-09] MEDS: amLODIPine BESYLATE 5 MG TAB PO SCH ×2 (09:04→20:08)
[2023-01-09] MEDS: LANTUS PER UNIT CHARGE SQ SCH (09:12)
[2023-01-09] MEDS: INSULIN ASPART PER UNIT CHARGE SC SCH ×4 (09:12→20:59)
--- NOTE | 2023-01-09 09:29 | Hospitalist Progress Note ---
Date of Service January 09, 2023 Assessment & Plan (1) Acute respiratory failure with hypoxia: Plan: 01/08 with worsening hypoxia up to 10 L Oxymask at times after activity, detectable procal but wihout leukocytosis 01/09 on 6LNC, cough better but still with orthopnea at times Covering with Zosyn/doxy, for suspected superimposed PNA, MRSA nares negative History of about 18 pack years of smoking over 50 years ago, with some wheezing on exam, could be some amount of pulmonary disease secondary to remote smoking history, no formal COPD diagnosis in the past Will continue IV steroids, Mucinex, scheduled and prn nebulizers Holding further diuretics at this time given Lasix 20mg IV x1 yesterday caused renal function to decline again Appreciate Cyn Cartagena/Dr. Mcpherson consulting (2) LEV (acute kidney injury): Plan: 2nd to recent diuresis for decompensated CHF + junctional bradycardia with decreased renal perfusion. BMP reviewed, Peak Cr 3.1; today 2.0, with mild hyperkalemia K 5.3. HOLDING Entresto, Aldactone, potassium supplements, and any other nephrotoxic agent, holding any diuresis today. (3) Junctional bradycardia: Plan: Developed the AM of 01/04/23. Fortunately she was relatively asymptomatic from the junctional bradycardia over the weekend. This was in the setting of Coreg + amiodarone use. Both meds have been stopped at this time. NSR on tele. Appreciate Cardiology consultation. If she converts back to junctional pacemaker insertion would be needed, but trying to avoid if possible given comorbidities. (4) Hyperkalemia: Plan: 2nd to LEV in the setting of chronic Entresto use (on hold since 01/03), aldactone (on hold since 01/04), potassium supplements (on hold since 01/04). s/p numerous therapies to correct such (bicarb, calcium, patiromer, etc). Improved BMP reviewed with K 5.3 today (5) Acute on chronic heart failure with preserved ejection fraction (HFpEF): Plan: Daily IV Lasix stopped 01/03/23 Aldactone stopped 01/04/23 The drop in Lasix dosing from daily to QOD in the outpatient setting may have contributed to this decompensation (dose reduction was a few weeks ago due to patient being azotemic) Possibly dietary indiscretion as well, though patient's fluid balance is tenuous regardless of dietary choices Coreg, amiodarone, Entresto, Aldactone, daily Lasix remain on hold, isosorbide continued Palliative care discussed with family, conditional code added to chart, ultimately Adri does not want to "be on machines" or life support but does until that time want to pursue all medical care; discussed tenuous nature of her renal dysfunction and CHF at odds with one another with patient and daughter, I am concerned that the patient does not understand the gravity of her condition during our conversations since she reports feeling well when we talk, however that is while wearing significant amounts of oxygen. (6) CAD (coronary artery disease): Plan: Last cardiac cath was by Dr Rivera 11/2021: Multivessel coronary artery disease -50% ostial left main (IVUScalcified, 50 to 60%, CSA 5.4 mm) -Sequential RCA lesions (60-70% proximal ISR, 60% mid, 50% latemid) -30 to 40% ostial circumflex Per documentation was referred to [facility] for consideration of revascularization but never had such Cont statin, Plavix, asa Coreg stopped due to junctional bradycardia (7) Hyperlipemia: Plan: Cont statin (8) PAD (peripheral artery disease): Plan: S/p fem-fem bypass [address] Cash Cont plavix, statin, asa (9) Paroxysmal atrial fibrillation: Plan: No PAF seen while here She is not on chronic anticoagulation due to prior severe GI bleeding Again Coreg + amiodarone stopped due to junctional bradycardia (10) Type 2 diabetes mellitus with diabetic neuropathy, unspecified: Plan: A1c 6.4% Basal/bolus insulin adjusted for IV steroid use Holding glimepiride (11) Chronic kidney disease, stage IV (severe): Plan: With superimposed LEV as noted above Baseline Cr about 1.5 to 1.9, creatinine 2.0 today therefore will hold diuresis today (12) Iron deficiency anemia: Plan: S/p Venofer IV on 01/03 and 8 H/H reviewed, Hgb 8.2 today without clear bleeding source, will Hemoccult stools given GIB history Had GI bleeding earlier this year due to ischemic colitis DVT ppx Heparin held while watching dropping Hgb (13) S/P TAVR (transcatheter aortic valve replacement): Plan: 01/2022 - [facility] Follows with Dr Prem Mcpherson - [facility] [place] Last Echo 2022 with preserved AV function (14) Ischemic colitis: Plan: Is supposed to f/u at [facility] for this - timing uncertain Has had worsening anemia due to blood loss from this event No GI symptoms at this time Replaced low Fe, H/H stable Is on schedule for colonoscopy later this month due to abnormal cecum as seen on CT a/p in 11/2022, may need rescheduled given illness She is poor candidate for procedures in light of her numerous comorbidities (15) Hyponatremia: Plan: Mild, serial BMPs (16) HTN (hypertension): Plan: Coreg, Entresto, Aldactone, Lasix all on hold Amlodipine 10mg BID remains Hydralazine TID remains Cont Imdur for now Plan DVT proph - deferred given Hgb 8.3 and Hx large GI bleeding Admission and Anticipated Discharge Date Admission Date: January 01, 2023 Subjective Overnight with some orthopnea, some dyspnea with eating. Today sitting up in chair breathing is better and is on 5LNC. Denies chest pain, still intermittent cough but breathing treatments help. Denies abdominal pain, nausea. Physical Exam Constitutional: WD/WN, vitals as above Respiratory: normal respiratory effort, comfortable on 6LNC, crackles/rhonchi in bases, no more wheezing Cardiovascular: RRR, systolic murmur Gastrointestinal (Abdomen): normal bowel sounds, soft, nontender, no hepatosplenomegaly Skin: no rashes, warm and dry Psychiatric: A+Ox3, euthymic affect Results & Data Results & Data Vital Signs (Past 12 Hours) Vital Signs Temp Pulse Pulse Resp BP Pulse Ox O2 Del Method 01/09/23 08:00 High Flow Nasal Cannula 01/09/23 07:44 36.7 C 68 19 163/60 H 94 Nasal Cannula 01/09/23 07:09 83 16 94 Nasal Cannula 01/09/23 03:28 Room Air 01/09/23 03:10 36.8 C 74 18 140/61 92 Nasal Cannula 01/08/23 22:00 62 01/08/23 22:49 36.9 C 63 18 146/63 H 94 Nasal Cannula O2 Flow Rate 01/09/23 08:00 9 01/09/23 07:44 4 01/09/23 07:09 6 01/09/23 03:28 6 01/09/23 03:10 01/08/23 22:00 01/08/23 22:49 PG Care Time/CCT Total # of Minutes Spent Total Time Spent with Patient: Total time spent is greater than 50% in coordination of care (as documented) at patient's floor/unit and/or counseling patient: Coding Level of Care Code 59425 SUB INP/OBS CARE 3/50MIN Diagnoses Acute respiratory failure with hypoxia J96.01 LEV (acute kidney injury) N17.9 Junctional bradycardia R00.1 Hyperkalemia E87.5 Acute on chronic heart failure with preserved ejection fraction (HFpEF) I50.33 CAD (coronary artery disease) I25.10 Hyperlipemia E78.5 PAD (peripheral artery disease) I73.9 Paroxysmal atrial fibrillation I48.0 Type 2 diabetes mellitus with diabetic neuropathy, unspecified E11.40 Chronic kidney disease, stage IV (severe) N18.4 Iron deficiency anemia D50.9 S/P TAVR (transcatheter aortic valve replacement) Z95.2 Ischemic colitis K55.9 Hyponatremia E87.1 HTN (hypertension) I10
--- NOTE | 2023-01-09 13:15 | Cardiology Progress Note ---
Date of Service January 09, 2023 Assessment & Plan (1) Acute on chronic heart failure with preserved ejection fraction (HFpEF): (2) LEV (acute kidney injury): (3) Junctional bradycardia: (4) High degree atrioventricular block: (5) HTN (hypertension): Plan Cardiac History: 1. Accelerated hypertension. 2. Non-ST elevation myocardial infarction in October 2018 with a drug-eluting stent placed to the ostial RCA. 3. Residual mid LAD disease in the range of 20-30%; mid circumflex disease in the range of 60-70%; mid to distal RCA disease in the range of 40-50%. 4. Fem-fem bypass, 2020. 5. Severe aortic stenosis, status post 26 mm Austin Rosie 3 TAVR with ostial left main stenting 01/2022. 6. Echocardiogram 03/01/22 with normal LV size and function with mild left ventricular hypertrophy, type 2 diastolic dysfunction, status post 26 mm Austin Rosie 3 TAVR valve with expectant gradients, mild to moderate pulmonary hypertension with PA pressure of 47 mmHg. 7. Diabetes mellitus type 2. 8[address] Negative CT scan for renal artery stenosis 11/2020. 9. Acute on chronic diastolic heart failure admission, 05/2021 and 07/2022. 10. History of a CVA in 2018. 11. Hyponatremia worsened by hydrochlorothiazide. 12. Normal carotid ultrasound and no evidence of subclavian stenosis, January 09, 2021. 13. Hyperlipidemia. 14. 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 Gould has developed pneumonia. Her labs today have in general gone in the wrong direction. Her creatinine increased with a small dose of furosemide yesterday, she is hyperkalemic, she is hyponatremic. Her hgb has trended down. Her blood sugar was very high today. Her spironolactone and Entresto should continue to be held. No further abnormal rhythms overnight on telemetry. She continues to have her amiodarone and carvedilol held. Her lower extremity edema is resolved although she persists in having pulmonary edema on CT. She is down 10L. Her fluid and electrolyte status has been very difficult to control in the outpatient setting. Partly due to the progressive nature of her disease, partly due to medication mis-management, and partly due to dietary indiscretion. Overall, it's been very hard to keep her out of heart failure without sending her into a kidney injury and/or electrolyte disturbance. She continues on clopidogrel and aspirin for her history of PAD and CAD. This may have to be held if her hgb continues to trend down. She continues on high dose statin therapy. She is unable to be anticoagulated for her history of afib due to multiple GI bleeds requiring transfusion. No afib this admission Her blood pressures are acceptable. Her hydralazine was increased as Entresto, Coreg and spironolactone are being held. 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 She has talked with palliative care and Dr. Mcpherson discussed hospice with Adri yesterday and she wanted to think about it. I think that she does not grasp how sick she really is despite multiple conversations with her and her daughter. Admission and Anticipated Discharge Date Admission Date: January 01, 2023 Subjective Ms. Gould appears comfortable in her chair at bedside. Her supplemental oxygen requirements have increased significantly and she has been found to have pneumonia on CT. She is not having any chest pain. Her telemetry showed NSR overnight, no junctional/AV block in the last few days. No afib this admission Review of Systems Review of Systems: All systems reviewed & are unremarkable except as noted in HPI & below Physical Exam Constitutional: WD/WN, vitals as above Respiratory: normal respiratory effort, lungs clear to auscultation Cardiovascular: Rate/Rhythm: regular rate and regular rhythm Heart Sounds: + murmur (rusb 3/6 systolic murmur ) Extremities: no edema Neurologic: moves all extremities and awake Psychiatric: A+Ox3, euthymic affect Results & Data Vital Signs (Past 12 Hours) Vital Signs Temp Pulse Pulse Resp BP Pulse Ox O2 Del Method 01/09/23 11:21 36.4 C L 65 19 152/62 H 92 Nasal Cannula 01/09/23 08:00 High Flow Nasal Cannula 01/09/23 07:44 36.7 C 68 19 163/60 H 94 Nasal Cannula 01/09/23 07:09 83 16 94 Nasal Cannula 01/09/23 03:28 Room Air 01/09/23 03:10 36.8 C 74 18 140/61 92 Nasal Cannula O2 Flow Rate 01/09/23 11:21 4 01/09/23 08:00 9 01/09/23 07:44 4 01/09/23 07:09 6 01/09/23 03:28 6 01/09/23 03:10
[2023-01-09] MEDS ORDERED: LANTUS PER UNIT CHARGE SQ ONE (14:30)
[2023-01-09] MEDS: DOXYCYCLINE HYCLATE 100 MG CAP PO SCH (17:47)
[2023-01-09] MEDS: BENZONATATE 100 MG CAPSULE PO PRN (17:49)
[2023-01-10] MEDS: PIPERACILLIN/TAZOBACTAM 4.5 GM in DEXTROSE 5% 100 ML IV SCH ×2 (03:15→11:44)
[2023-01-10] MEDS: DOXYCYCLINE HYCLATE 100 MG CAP PO SCH ×2 (05:54→16:49)
[2023-01-10] MEDS: LEVALBUTEROL HCL 0.63 MG/3 ML NEB NEB SCH ×3 (06:04→19:30)
[2023-01-10 07:04] LABS: Hematocrit (blood only) 24.2 % (37.0-47.0); Hemoglobin 7.8 g/dl (12.0-16.0); Mean Corpuscular Hemoglobin 27.9 pg (25.0-34.0); Mean Corpuscular Hgb Conc 32.2 g/dL (32.0-36.0); Mean Corpuscular Volume 86.4 fL (80.0-100.0); Mean Platelet Volume 12.5 fL (9.4-12.4); Platelet Count 265 K/uL (130-400); RDW Coefficient of Variation 15.9 % (11.5-14.5); White Blood Count 11.79 K/ul (4.8-10.8)
[2023-01-10 07:25] LABS: Acanthocytes 1+; Anisocytosis Present; Basophils # (auto) 0.01 K/uL (0-0.2); Basophils % (auto) 0.1 %; Immature Granulocytes # (auto) 0.11 K/uL (0.01-0.20); Immature Granulocytes % (auto) 0.9 %; Lymphocytes # (auto) 0.27 K/uL (1.2-3.4); Lymphocytes % (auto) 2.3 %; Monocytes # (auto) 0.56 K/uL (0.11-0.59); Monocytes % (auto) 4.7 %; Neutrophils # (auto) 10.84 K/uL (1.40-6.50); Polychromasia 1+
[2023-01-10 07:45] LABS: BUN Creatinine Ratio 36.2 (10-20); Creatinine Clr Calc Pharmacy 16.1 ml/min; Est GFR (African American) 19.4 ml/min; Est GFR (Non-African American) 16.7 ml/min; Potassium 5.2 mmol/L (3.5-5.1)
[2023-01-10] MEDS: INSULIN ASPART PER UNIT CHARGE SC SCH ×4 (08:24→20:59)
[2023-01-10] MEDS: PANTOprazole 40 MG TAB PO SCH ×2 (08:25→20:59)
[2023-01-10] MEDS: MAGNESIUM OXIDE 400 MG TAB PO SCH (08:25)
[2023-01-10] MEDS: amLODIPine BESYLATE 5 MG TAB PO SCH (08:25)
[2023-01-10] MEDS: CLOPIDOGREL BISULFATE 75 MG TAB PO SCH (08:26)
[2023-01-10] MEDS: MULTIVITAMIN TAB PO SCH (08:26)
[2023-01-10] MEDS: ISOSORBIDE MONO EXTENDED REL 30 MG TABCR PO SCH (08:26)
[2023-01-10] MEDS: ASPIRIN 81 MG ECTAB PO SCH (08:26)
[2023-01-10] MEDS: guaiFENesin 600 MG TABCR PO SCH ×2 (08:26→20:59)
[2023-01-10] MEDS: ATORVASTATIN 40 MG TAB PO SCH (08:26)
[2023-01-10] MEDS: hydrALAZINE HCL 25 MG TAB PO SCH ×2 (08:27→13:50)
[2023-01-10] MEDS: POLYETHYLENE (MIRALAX) 17 GM PACK PO SCH (08:27)
[2023-01-10] MEDS ORDERED: PHARMACY GLYCEMIC MGMT CONSULT PRN (08:31)
--- NOTE | 2023-01-10 08:41 | Hospitalist Progress Note ---
Date of Service January 10, 2023 Assessment & Plan (1) Acute respiratory failure with hypoxia: Plan: 01/08 with worsening hypoxia up to 10 L Oxymask at times after activity, detectable procal but without leukocytosis 01/09 on 6LNC, cough better but still with orthopnea at times Covering with Augmentin/doxy (Zosyn deescalated to oral option for patient comfort and less fluid infusions), for suspected superimposed PNA, MRSA nares negative, to complete course at home if discharged before complete History of about 18 pack years of smoking over 50 years ago, with some wheezing on exam, could be some amount of pulmonary disease secondary to remote smoking history, no formal COPD diagnosis in the past Will continue Mucinex, scheduled and prn nebulizers, steroids do not appear to be helping so have discontinued Long discussion today with patient and children, as well as Dr. Benz. Given her difficulty with breathing and evidence of pulmonary edema, would typically give diuretics however it leads to worsening renal function. She would not be a candidate for dialysis due to her complex and end-stage cardiac history. After this discussion, as well as separate discussions by Cyn Cartagena and Kriss Dupont with cards and palliative care services, family and patient have elected for home with hospice and comfort-directed care, prioritizing breathing while admitted at the likely expense of her kidneys. Plan for discharge home on hospice after the weekend. Will give Lasix 20mg IV x1 now, can give doses prn for fluid overload and symptom relief. Prn medications for comfort of pain, anxiety, agitation ordered. (2) LEV (acute kidney injury): Plan: 2nd to recent diuresis for decompensated CHF + junctional bradycardia with decreased renal perfusion. BMP reviewed, Peak Cr 3.1; today 2.57, with mild hyperkalemia K 5.2 and Na of 122. HOLDING Entresto, Aldactone, potassium supplements, and any other nephrotoxic agents. Plan for permissive renal dysfunction and electrolyte derangement in favor of diuresis for pulmonary edema. (3) Junctional bradycardia: Plan: Developed the AM of 01/04/23. Fortunately she was relatively asymptomatic from the junctional bradycardia over the weekend. This was in the setting of Coreg + amiodarone use. Both meds have been stopped at this time. NSR on tele. Appreciate Cardiology consultation this admission. (4) Hyperkalemia: Plan: 2nd to LEV in the setting of chronic Entresto use (on hold since 01/03), Aldactone (on hold since 01/04), potassium supplements (on hold since 01/04). S/p numerous therapies to correct such (bicarb, calcium, patiromer, etc). (5) Acute on chronic heart failure with preserved ejection fraction (HFpEF): Plan: Daily IV Lasix stopped 01/03/23. Aldactone stopped 01/04/23. The drop in Lasix dosing from daily to QOD in the outpatient setting may have contributed to this decompensation (dose reduction was a few weeks ago due to patient being azotemic). Possibly dietary indiscretion as well, though patient's fluid balance is tenuous regardless of dietary choices. Coreg, amiodarone, Entresto, Aldactone, isosorbide held. (6) CAD (coronary artery disease): Plan: Last cardiac cath was by Dr Rivera 11/2021: Multivessel coronary artery disease -50% ostial left main (IVUScalcified, 50 to 60%, CSA 5.4 mm) -Sequential RCA lesions (60-70% proximal ISR, 60% mid, 50% latemid) -30 to 40% ostial circumflex Per documentation was referred to [facility] for consideration of revascularization but never had such. Coreg stopped due to junctional bradycardia, other medications stopped due to focus on comfort care and transition to home with hospice. (7) PAD (peripheral artery disease): Plan: S/p fem-fem bypass [address] Cash. (8) Paroxysmal atrial fibrillation: Plan: No PAF seen while here. She is not on chronic anticoagulation due to prior severe GI bleeding. Again Coreg + amiodarone stopped due to junctional bradycardia. (9) Type 2 diabetes mellitus with diabetic neuropathy, unspecified: Plan: A1c 6.4%. Basal/bolus insulin adjusted for IV steroid use, patient now moving to comfort- based care. (10) Chronic kidney disease, stage IV (severe): Plan: With superimposed LEV as noted above Baseline Cr about 1.5 to 1.9, creatinine 2.57 today, defer further checks in favor of symptom-directed care for breathing (11) Iron deficiency anemia: Plan: S/p Venofer IV on 01/03 and 01/04. H/H reviewed, Hgb 7.8 today without clear bleeding source. Had GI bleeding earlier this year due to ischemic colitis. (12) S/P TAVR (transcatheter aortic valve replacement): Plan: 01/2022 - [facility]. Follows with Dr Prem Mcpherson - [facility] Cardiology Deputy. Last Echo 2022 with preserved AV function. (13) Ischemic colitis: Plan: No GI symptoms at this time. Replaced low Fe. Is on schedule for colonoscopy later this month due to abnormal cecum as seen on CT a/p in 11/2022, to be canceled. She is poor candidate for procedures in light of her numerous comorbidities. (14) Hyponatremia: Plan: Significant worsening today to Na 122 (corrected to 126 for hyperglycemia). Elevated serum Osm, suggests hypertonic hyponatremia secondary to hyperglycemia. Glucose fortunately improving and expect sodium to as well with time, however will not be rechecking as patient is moving toward comfort care. (15) HTN (hypertension): Plan: History of, medications stopped for comfort care. (16) Constipation: Plan: Miralax, docusate, Senna as needed for BM for patient comfort of bloatin g/constipation. Plan Comfort care, goal of symptom management with diuretics/pain medication, anxiety medications, medications for bowels, etc. Plan for home with hospice on discharge Admission and Anticipated Discharge Date Admission Date: January 01, 2023 Subjective Overnight with some SOB in the tumbler operator, still some cough, no chest pain/nausea. Feels comfortable sitting up in her chair in her room. Feeling some abdominal bloating has not had a BM in a few days. Physical Exam Constitutional: WD/WN, vitals as above Respiratory: accessory muscle use, comfortable on 6LNC, crackles/rhonchi in bases, intermittent wheeze Cardiovascular: RRR, systolic murmur Gastrointestinal (Abdomen): normal bowel sounds, soft, nontender, no hepatosplenomegaly Skin: no rashes, warm and dry Psychiatric: A+Ox3, euthymic affect Results & Data Results & Data Vital Signs (Past 12 Hours) Vital Signs Temp Pulse Pulse Resp BP BP Pulse Ox 01/10/23 07:05 36.5 C 75 18 187/63 H 95 01/10/23 05:30 36.6 C 68 20 159/57 H 93 01/10/23 06:06 76 20 94 01/10/23 00:00 73 08/10/23 22:00 36.8 C 67 20 172/55 H 94 O2 Del Method O2 Flow Rate 01/10/23 07:05 Nasal Cannula 8 01/10/23 05:30 High Flow Nasal Cannula 8 01/10/23 06:06 Nasal Cannula 8 01/10/23 00:00 01/09/23 22:00 Nasal Cannula 6 PG Care Time/CCT Total # of Minutes Spent Total Time Spent with Patient: Total time spent is greater than 50% in coordination of care (as documented) at patient's floor/unit and/or counseling patient: Coding Level of Care Code 63859 SUB INP/OBS CARE 3/50MIN Diagnoses Acute respiratory failure with hypoxia J96.01 LEV (acute kidney injury) N17.9 Junctional bradycardia R00.1 Hyperkalemia E87.5 Acute on chronic heart failure with preserved ejection fraction (HFpEF) I50.33 CAD (coronary artery disease) I25.10 PAD (peripheral artery disease) I73.9 Paroxysmal atrial fibrillation I48.0 Type 2 diabetes mellitus with diabetic neuropathy, unspecified E11.40 Chronic kidney disease, stage IV (severe) N18.4 Iron deficiency anemia D50.9 S/P TAVR (transcatheter aortic valve replacement) Z95.2 Ischemic colitis K55.9 Hyponatremia E87.1 HTN (hypertension) I10 Constipation K59.00
[2023-01-10] MEDS ORDERED: LANTUS PER UNIT CHARGE SQ SCH ×2 (09:00→21:00)
[2023-01-10] MEDS ORDERED: methylPREDNISolone 40 MG in SYRINGE 0 ML IV SCH (09:00)
[2023-01-10 09:14] LABS: BUN Creatinine Ratio 37.7 (10-20); Creatinine Clr Calc Pharmacy 16.3 ml/min; Est GFR (African American) 19.7 ml/min; Potassium 5.2 mmol/L (3.5-5.1)
[2023-01-10] MEDS: ALBUT/IPRATROP 3MG/0.5MG NEB 3 ML VIAL NEB PRN (09:31)
--- NOTE | 2023-01-10 09:38 | Cardiology Progress Note ---
Date of Service January 10, 2023 Assessment & Plan Admission and Anticipated Discharge Date Admission Date: January 01, 2023 Subjective Breath talking in sentences. She did not have a good night sleeping. She notes she is short of breath walking to the bathroom. She denies any chest pain or chest pressure. She has no lightheadedness. She has had no lower extremity edema. Results & Data Vital Signs (Past 12 Hours) Vital Signs Temp Pulse Pulse Resp BP BP Pulse Ox 01/10/23 09:31 96 H 15 96 01/10/23 07:05 36.5 C 75 18 187/63 H 95 01/10/23 05:30 36.6 C 68 20 159/57 H 93 01/10/23 06:06 76 20 94 01/10/23 00:00 73 01/09/23 22:00 36.8 C 67 20 172/55 H 94 O2 Del Method O2 Flow Rate 01/10/23 09:31 Nasal Cannula 6 01/10/23 07:05 Nasal Cannula 8 01/10/23 05:30 High Flow Nasal Cannula 8 01/10/23 06:06 Nasal Cannula 8 01/10/23 00:00 01/09/23 22:00 Nasal Cannula 6 she is awake alert and oriented x 3 she is short of breath talking in sentences HEENT: 2+ carotid upstrokes Lungs decreased breath sounds in the right base with crackles in the left base heart: Regular rate and rhythm there is a soft systolic ejection murmur at the right upper sternal border Abdomen: Soft nontender nondistended positive bowel sounds extremities no clubbing cyanosis or edema Assessment & Plan (1) Acute on chronic heart failure with preserved ejection fraction (HFpEF): (2) LEV (acute kidney injury): (3) Junctional bradycardia: (4) High degree atrioventricular block: (5) HTN (hypertension): Plan Cardiac History: 1. Accelerated hypertension. 2. Non-ST elevation myocardial infarction in October 2018 with a drug-eluting stent placed to the ostial RCA. 3. Residual mid LAD disease in the range of 20-30%; mid circumflex disease in the range of 60-70%; mid to distal RCA disease in the range of 40-50%. 4. Fem-fem bypass, 2020. 5. Severe aortic stenosis, status post 26 mm Austin Rosie 3 TAVR with ostial left main stenting 01/2022. 6. Echocardiogram 03/01/22 with normal LV size and function with mild left ventricular hypertrophy, type 2 diastolic dysfunction, status post 26 mm Austin Rosie 3 TAVR valve with expectant gradients, mild to moderate pulmonary hypertension with PA pressure of 47 mmHg. 7. Diabetes mellitus type 2. 8[address] Negative CT scan for renal artery stenosis 11/2020. 9. Acute on chronic diastolic heart failure admission, 05/2021 and 07/2022. 10. History of a CVA in 2018. 11. Hyponatremia worsened by hydrochlorothiazide. 12. Normal carotid ultrasound and no evidence of subclavian stenosis, January 09, 2021. 13. Hyperlipidemia. 14. History of GI bleed x3 requiring transfusion 15. 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 There is nothing to do from a cardiac standpoint she has significant diastolic heart failure with a stiff left ventricle and elevated pressures. Given that she is under perfusing her kidneys. I understand that nephrology will be seeing her. Unfortunately she looks more short of breath and she would be a very poor candidate for dialysis that she likely would have a challenge tolerating it. I again discussed with her the idea of palliative care and hospice. She did not want to consider hospice at this point. She is a DNI but unfortunately I do not see things improving. In essence she has end-stage cardiovascular disease and is a significant vasculopath as well. She is not a candidate for any procedures including outpatient schedule colonoscopy for a possible colon mass. She is also had GI bleeding that has not been potentially ischemic colitis. With all of her complex medical problems none of this portends a good short-term prognosis. On the monitor she had no further junctional heart rhythms off amiodarone and beta-blockers.
--- NOTE | 2023-01-10 10:37 | Pharmacy Report ---
Pharmacy Glycemic Short Note 2 - Date of Service January 10, 2023 - Glycemic Short BSG Results (Last 24 hours): 01/09/23 01/09/23 01/09/23 11:34 11:35 16:18 Glucose POC Glucose 372 H* 355 H* 303 H* 01/09/23 01/10/23 01/10/23 20:26 06:24 07:06 Glucose 307 H* POC Glucose 268 H 364 H* 01/10/23 08:42 Glucose 358 H* POC Glucose OUTPATIENT ANTIDIABETIC REGIMEN: * Glimepiride 8 mg once daily * Metformin ER 1000 mg BID with meals HbA1c on 01/02/23 = 6.4% ASSESSMENT: * 82 y/o F currently admitted for CHF and AFIB with history of Type 2 diabetes managed only on oral meds at home. * Holding oral anti-diabetic meds while admitted and utilizing basal and bolus insulin for glycemic management while admitted. * Patient had been receiving basal insulin 10 units daily for the past week. * She was started on IV Solu medrol 40 mg BID on 01/08 and this has caused hyperglycemia for the past couple of days. * She received 15 units of basal and 25 units of bolus insulin yesterday. * Fasting BSG today was 364 mg/dl. Basal insulin this AM was increased to 15 units. Pharmacy consulted for glycemic management. * Will add a basal dose scale for tonight as well. * Pre-lunch BSG was still elevated at 361 mg/dl. IV regular insulin 5 units bolus was given at that time. Novolog parameters tightened with lunch. Expect BSGs to trend down this evening. PLAN FOR INPATIENT GLYCEMIC CONTROL: * Hold outpatient oral diabetes medications * Basal insulin * Lantus 15 units SQ QAM * Lantus 0/5/10 units SQ HS based on BSG * Bolus insulin * NovoLog per scale ACHS or Q6hrs while NPO * Goal Range: Low 110 mg/dL - High 140 mg/dL * Correction Factor: 25 mg/dL/unit * Nutritional / Prandial insulin per carb ratio of 1 unit per 9 grams CHO consumed
[2023-01-10] MEDS ORDERED: INSULIN HUMAN REGULAR PER UNIT 5 UNITS in SYRINGE 4.95 ML IV SCH (12:15)
[2023-01-10] MEDS ORDERED: FUROSEMIDE INJ 20 MG/2 ML VIAL IV ONE ×2 (12:36→17:00)
[2023-01-10] MEDS ORDERED: PIPERACILLIN/TAZOBACTAM 4.5 GM in DEXTROSE 5% 100 ML IV SCH (12:45)
--- NOTE | 2023-01-10 12:48 | Palliative Care Progress Note ---
Date of Service January 10, 2023 Assessment & Plan (1) Palliative care encounter: Plan: I talked with Mrs. Gould and also with her daughter, Mamie, at bedside. We reviewed her status today and discussed concern for poor prognosis. She asked if there was a medication that would help her kidneys and then about dialysis. She would not be a good candidate for dialysis with her and has been told this by cardiology and nephrology. We reviewed the discussion from Friday when she told me that being at home and having time with her family were the most important things to her. We discussed concern that further treatment would not prolong her life in a meaningful way but may interfere with her ability to be at home and enjoy time with her family. We discussed hospice care to support her and her family at home. Mamie is extremely close to her mother and very emotional. She understands that the prognosis is poor and supports the idea of hospice but is struggling with the idea of losing her mother. They requested time to speak with each other and will meet with Dr. Benz later today. Hospice can be arranged by case management if that is their decision after discussion with Dr. Benz. Dr. Benz and Dr. Derrek gomez. Discussed with RN. Admission and Anticipated Discharge Date Admission Date: January 01, 2023 Subjective Short of breath with conversation at times. Increased O2 requirement, up to 8L. She also has progressive renal failure, leukocytosis and electrolyte abnormalities. She denies pain and is comfortable in bed. Review of Systems Review of Systems: ESAS Pain 0/3 Dyspnea 2/3 Nausea 0/3 Anxiety 1/3 Drowsiness 0/3 Physical Exam Constitutional: no acute distress Respiratory: uses accessory muscles Cardiovascular: Rate/Rhythm: regular rate and regular rhythm Neurologic: Speech / Cognition: normal cognition Results & Data Vital Signs (Past 12 Hours) Vital Signs Temp Pulse Pulse Resp BP BP Pulse Ox 01/10/23 11:02 97.5 F L 77 19 179/52 H 90 01/10/23 08:00 79 01/10/23 09:31 96 H 15 96 01/10/23 08:00 01/10/23 07:05 97.7 F 75 18 187/63 H 95 01/10/23 05:30 97.9 F 68 20 159/57 H 93 01/10/23 06:06 76 20 94 O2 Del Method O2 Flow Rate 01/10/23 11:02 Nasal Cannula 6 01/10/23 08:00 01/10/23 09:31 Nasal Cannula 6 01/10/23 08:00 High Flow Nasal Cannula 8 01/10/23 07:05 Nasal Cannula 8 01/10/23 05:30 High Flow Nasal Cannula 8 01/10/23 06:06 Nasal Cannula 8 PG Care Time/CCT Total # of Minutes Spent Total Time Spent: 68 Total Time Spent with Patient: Total time spent is greater than 50% in coordination of care (as documented) at patient's floor/unit and/or counseling patient: goals of care, prognosis, symptom management, hospice, patient and family education and support, coordination of care Coding Level of Care Code 05277 SUB INP/OBS CARE 3/50MIN Diagnoses Palliative care encounter Z51.5
[2023-01-10] MEDS: ONDANSETRON 4 MG OD TAB PO PRN ×2 (13:49→20:06)
--- NOTE | 2023-01-10 15:06 | Nephrology Consultation ---
Date of Consultation January 10, 2023 Assessment & Plan (1) Palliative care encounter: (2) Hyponatremia: (3) LEV (acute kidney injury): (4) Chronic kidney disease, stage IV (severe): (5) Acute on chronic heart failure with preserved ejection fraction (HFpEF): Plan Adri has advanced baseline kidney dysfunction, significant vascular disease, and advanced heart disease. Her kidney dysfunction has progressed and she has evidence of associated fluid retention with congestive failure. I suspect she will symptomatically benefit from diuresis. However, it is understood that she has had worsening of kidney function with diuretics in the past. The potential role of dialysis was reviewed with the patient and her family. Due to her medical comorbidities, I would not expect dialysis to provide benefits in terms of quality or quantity of life. Adri expressed understanding. She would prefer to continue with a palliative approach to care. After discussing in detail with Dr. Dupont, Dr. Mcpherson, and Dr. Ramirez, Adri opted to proceed with a transition to comfort measures and hospice care. This fits with her personal goals of care which are to return home and enjoy quality of time with family. She has had several recent hospitalizations and ultimately would like to avoid future hospitalization. Dialysis will not be considered part of the care plan. Diuretics will be provided for comfort. Nephrology will sign-off. Please call with questions or concerns. History of Present Illness Reason for Consultation: worsening LEV, difficult fluid balance, ? diuresis Requesting Physician: Latisha Ramirez DO Attending Physician: Latisha Ramirez DO History of Present Illness Adri Gould is an 82-year-old female with CKD IV (baseline creatinine 1.5- 2.0 mg/dL; eGFR 25-30 ml/min). CKD attributed to atherosclerotic vascular disease and multiple episodes of LEV. I met Adri when she was hospitalized at [facility] in August with ischemic colitis and GIB. She developed hemodynamically mediated LEV during hospitalizations in August and October related to acute blood loss anemia and hypotension. Thankfully, kidney function recovered during both episodes without requiring SIGN PAINTER HELPER. We had discussed potential future indications for dialysis and at the time Adri had expressed reservations. She expressed understanding that hemodialysis would be difficult due to multiple medical comorbidities. Past medical history is notable for an extensive disease including coronary artery disease, atrial fibrillation, heart failure with preserved ejection fraction, aortic stenosis status post TAVR, severe peripheral vascular disease with right iliac stenosis and femorofemoral bypass. Imaging of the abdomen has unfortunately demonstrated thickening within a segment of the cecum concerning for a mass for which outpatient colonoscopy is pending. Kidney function has been declining during her current hospitalization and nephrology consultation was requested this morning in the setting of persistent electrolyte abnormalities and fluid retention. Adri is struggling with increased work of breathing and persistent respiratory compromise. Her kidney function did not tolerate diuresis well in the past. She was admitted on January 01 with respira tory distress and told me this morning that she has not experienced significant improvement during the hospitalization. I discussed the patient with Dr. Dupont and Dr. Ramirez this morning. I met with Adri this morning in her hospital room. I had a family meeting with the patient, her daughters, her son, and Dr. Ramirez this afternoon. Goals of care were discussed in detail. Allergies Allergy/AdvReac Type Severity Reaction Status Date / Time fenofibrate AdvReac Intermediate INCREASED Verified 11/01/22 20:39 URINATION metoprolol AdvReac Intermediate VOMIT,DIARR Verified 11/01/22 20:39 HEA valsartan AdvReac Intermediate Weakness Verified 11/01/22 20:39 verapamil AdvReac Intermediate INCREASED Verified 11/01/22 20:39 URINATION Home Medications Medication Instructions Recorded Confirmed Type fish, borage, flaxseed oils-omega 1 cap PO QDD 12/01/20 01/01/23 History 3,6,9 comb no.1 1,200 mg capsule ([place] 3-6-9) atorvastatin 40 mg tablet 40 mg PO QAM 02/26/21 01/01/23 History multivitamin 1 tab PO QAM 02/26/21 01/01/23 History amiodarone 200 mg tablet 200 mg PO QAM 07/01/21 01/01/23 History pantoprazole 40 mg tablet,delayed 40 mg PO BID 07/01/21 01/01/23 History release glimepiride 4 mg tablet 4 mg PO BID 12/21/21 01/01/23 History carvedilol 6.25 mg tablet 6.25 mg PO BID #60 tabs 12/27/21 01/01/23 Rx magnesium oxide 400 mg (241.3 mg 400 mg PO BID #60 tabs 12/27/21 01/01/23 Rx magnesium) tablet amlodipine 10 mg tablet 10 mg PO BID 06/20/22 01/01/23 History sacubitril 24 mg-valsartan 26 mg 1 tab PO BID 09/20/22 01/01/23 History tablet (Entresto) spironolactone 25 mg tablet 25 mg PO QAM 09/20/22 01/01/23 History hydralazine 100 mg tablet 50 mg PO TID #30 tabs 10/06/22 01/01/23 Rx clopidogrel 75 mg tablet 75 mg PO DAILY 11/01/22 01/01/23 History furosemide 40 mg tablet 40 mg PO DIRECTED 01/01/23 01/01/23 History Patient History Medical History Acute non-ST elevation myocardial infarction (NSTEMI) Acute on chronic heart failure with preserved ejection fraction (HFpEF) LEV (acute kidney injury) Anemia Bradycardia CAD (coronary artery disease) CVA (cerebral vascular accident) (~2019) no deficits Elevated troponin Hyperkalemia Hyperlipemia Hyponatremia Hyponatremia Hypoxia Myocardial infarct, old follows with Dr. Mcpherson Occlusion of right iliac artery PAD (peripheral artery disease) Pneumonia hx S/P angiogram of extremity (02/02/21) Type 2 diabetes mellitus with diabetic neuropathy, unspecified NIDDM Surgical History H/O removal of cyst right abdominal area History of bunionectomy of right great toe History of cardiac cath (~2018) History of heart artery stent (~2019) x1. at [facility]. Status post ORIF of fracture of ankle Family History Other No family history of adverse response to anesthesia Social History Smoking Status: Former smoker Tobacco Type: Cigarettes Cigarettes Per Day: 1 Pack; Second Hand Exposure: No; Do You Dip or Chew Tobacco: No; Tobacco Cessation Education Requested by Patient: No Hx Alcohol Use: Yes Alcohol type: other Hx Substance Use: No Preferred Language: Mauritian Communication Ability: Effective Communication Ability Comment: difficulty comprehending at times - dtr, Mamie is typically her caregiver Auto Collision Repair Instructor Required: No Beliefs That Will Affect Care: None marital status: / Current Living Situation: Family Current Living Situation Comment: currently moving in with daughter current occupational status: retired How many Children do You have: 1 Other Information That Helps Us Care for You: No Feels Safe at Home: Yes Safety Concerns: Feels Safe At This Time Assistive Devices: Walker Review of Systems Review of Systems: All systems reviewed & are unremarkable except as noted in HPI & below Physical Exam Constitutional: well developed and + frail appearing; no acute distress Eyes: no scleral abnormality and no corneal abnormality ENMT: Mouth: no oral mucosal abnormality and oral mucous membranes not dry Neck: normal visual inspection and trachea midline Respiratory: normal respiratory effort and + tachypneic Auscultation: lungs clear to auscultation bilaterally and + rales Cardiovascular: Rate/Rhythm: regular rate Heart Sounds: normal S1, normal S2 and + murmur Extremities: no edema Musculoskeletal: Extremities: no cyanosis and no clubbing Skin: normal turgor; no lesions Neurologic: Motor/Sensory: no tremor and no asterixis Psychiatric: Orientation: alert and oriented x 3 Results & Data Vital Signs (Past 12 Hours) Vital Signs Temp Pulse Pulse Resp BP BP Pulse Ox 01/10/23 13:32 75 24 92 01/10/23 11:02 36.4 C L 77 19 179/52 H 90 01/10/23 08:00 79 01/10/23 09:31 96 H 15 96 01/10/23 08:00 01/10/23 07:05 36.5 C 75 18 187/63 H 95 01/10/23 05:30 36.6 C 68 20 159/57 H 93 01/10/23 06:06 76 20 94 O2 Del Method O2 Flow Rate 01/10/23 13:32 Nasal Cannula 6 01/10/23 11:02 Nasal Cannula 6 01/10/23 08:00 01/10/23 09:31 Nasal Cannula 6 01/10/23 08:00 High Flow Nasal Cannula 8 01/10/23 07:05 Nasal Cannula 8 01/10/23 05:30 High Flow Nasal Cannula 8 01/10/23 06:06 Nasal Cannula 8 Laboratory Results Laboratory Results - last 24 hr 01/09/23 01/10/23 01/10/23 20:26 06:24 06:24 WBC 11.79 H RBC 2.80 L Hgb 7.8 L Hct 24.2 L MCV 86.4 MCH 27.9 MCHC 32.2 RDW Std Deviation 50.0 H RDW Coeff of Alysa 15.9 H Plt Count 265 MPV 12.5 H Immature Gran % (Auto) 0.9 Neut % (Auto) 92.0 Lymph % (Auto) 2.3 Carver % (Auto) 4.7 Eos % (Auto) 0.0 Baso % (Auto) 0.1 Neut # (Auto) 10.84 H Lymph # (Auto) 0.27 L Carver # (Auto) 0.56 Eos # (Auto) 0.00 Baso # (Auto) 0.01 Immature Gran # (Auto) 0.11 Polychromasia 1+ Anisocytosis Present Acanthocytes (Spur) 1+ Sodium 123 L Potassium 5.2 H Chloride 91 L Carbon Dioxide 21 Anion Gap 11 BUN 94 H D Creatinine 2.60 H D Est Cr Clr Drug Dosing 16.1 Est GFR ( Amer) 19.4 Est GFR (Non-Af Amer) 16.7 BUN/Creatinine Ratio 36.2 H Glucose 307 H* POC Glucose 268 H Osmolality Calcium 9.0 Urine Osmolality Ur Random Sodium 01/10/23 01/10/23 01/10/23 07:06 08:42 08:42 WBC RBC Hgb Hct MCV MCH MCHC RDW Std Deviation RDW Coeff of Alysa Plt Count MPV Immature Gran % (Auto) Neut % (Auto) Lymph % (Auto) Carver % (Auto) Eos % (Auto) Baso % (Auto) Neut # (Auto) Lymph # (Auto) Carver # (Auto) Eos # (Auto) Baso # (Auto) Immature Gran # (Auto) Polychromasia Anisocytosis Acanthocytes (Spur) Sodium 122 L Potassium 5.2 H Chloride 90 L Carbon Dioxide 20 L Anion Gap 12 H BUN 97 H Creatinine 2.57 H Est Cr Clr Drug Dosing 16.3 Est GFR ( Amer) 19.7 Est GFR (Non-Af Amer) 17.0 BUN/Creatinine Ratio 37.7 H Glucose 358 H* POC Glucose 364 H* Osmolality 305 H Calcium 9.0 Urine Osmolality Ur Random Sodium 01/10/23 01/10/23 01/10/23 10:59 16:03 Unknown WBC RBC Hgb Hct MCV MCH MCHC RDW Std Deviation RDW Coeff of Alysa Plt Count MPV Immature Gran % (Auto) Neut % (Auto) Lymph % (Auto) Carver % (Auto) Eos % (Auto) Baso % (Auto) Neut # (Auto) Lymph # (Auto) Carver # (Auto) Eos # (Auto) Baso # (Auto) Immature Gran # (Auto) Polychromasia Anisocytosis Acanthocytes (Spur) Sodium Potassium Chloride Carbon Dioxide Anion Gap BUN Creatinine Est Cr Clr Drug Dosing Est GFR ( Amer) Est GFR (Non-Af Amer) BUN/Creatinine Ratio Glucose POC Glucose 361 H* 286 H Osmolality Calcium Urine Osmolality 403 L Ur Random Sodium 01/10/23 Unknown WBC RBC Hgb Hct MCV MCH MCHC RDW Std Deviation RDW Coeff of Alysa Plt Count MPV Immature Gran % (Auto) Neut % (Auto) Lymph % (Auto) Carver % (Auto) Eos % (Auto) Baso % (Auto) Neut # (Auto) Lymph # (Auto) Carver # (Auto) Eos # (Auto) Baso # (Auto) Immature Gran # (Auto) Polychromasia Anisocytosis Acanthocytes (Spur) Sodium Potassium Chloride Carbon Dioxide Anion Gap BUN Creatinine Est Cr Clr Drug Dosing Est GFR ( Amer) Est GFR (Non-Af Amer) BUN/Creatinine Ratio Glucose POC Glucose Osmolality Calcium Urine Osmolality Ur Random Sodium 10 PG Care Time/CCT Total # of Minutes Spent Total Time Spent with Patient: Total time spent is greater than 50% in coordination of care (as documented) at patient's floor/unit and/or counseling patient: Coding Level of Care Code 91385 IN/OBS CONSULT LVL 4,60M Diagnoses Palliative care encounter Z51.5 Hyponatremia E87.1 LEV (acute kidney injury) N17.9 Chronic kidney disease, stage IV (severe) N18.4 Acute on chronic heart failure with preserved ejection fraction (HFpEF) I50.33 Time Spent (min) 60
[2023-01-10] MEDS ORDERED: DOCUSATE SODIUM 100 MG CAP PO ONE (16:05)
[2023-01-10] MEDS: AMOXICILLIN/CLAVULANATE 500 MG TAB PO SCH (16:48)
[2023-01-10 18:17] LABS: BUN Creatinine Ratio 39.2 (10-20); Calcium 9.1 mg/dl (8.6-10.3); Creatinine Clr Calc Pharmacy 15.9 ml/min; Est GFR (African American) 19.1 ml/min; Est GFR (Non-African American) 16.5 ml/min
[2023-01-10] MEDS ORDERED: bisacodyL 10 MG SUPP PR PRN (18:50)
[2023-01-10] MEDS ORDERED: LORazepam 2 MG/1 ML VIAL IV PRN (18:57)
[2023-01-10] MEDS: LORazepam 0.5 MG TAB PO PRN (20:59)
[2023-01-11] MEDS ORDERED: PIPERACILLIN/TAZOBACTAM 4.5 GM in DEXTROSE 5% 100 ML IV SCH
[2023-01-11] MEDS: ALBUT/IPRATROP 3MG/0.5MG NEB 3 ML VIAL NEB PRN (01:31)
[2023-01-11] MEDS: LORazepam 0.5 MG TAB PO PRN (01:51)
[2023-01-11] MEDS: HYDROmorphone INJ 0.5 MG/0.5 ML SYR IV PRN ×3 (02:21→12:57)
[2023-01-11] MEDS: ONDANSETRON INJ 2 MG/ML 2 ML VIAL IV PRN ×3 (06:02→18:28)
[2023-01-11] MEDS: DOXYCYCLINE HYCLATE 100 MG CAP PO SCH (06:25)
[2023-01-11] MEDS: LEVALBUTEROL HCL 0.63 MG/3 ML NEB NEB SCH ×3 (06:52→19:31)
[2023-01-11] MEDS ORDERED: FUROSEMIDE INJ 20 MG/2 ML VIAL IV ONE (07:42)
--- NOTE | 2023-01-11 07:48 | Hospitalist Progress Note ---
Date of Service January 11, 2023 Assessment & Plan (1) Acute respiratory failure with hypoxia: Plan: 01/08 with worsening hypoxia up to 10 L Oxymask at times after activity, detectable procal but without leukocytosis 01/09 on 6LNC, cough better but still with orthopnea at times Was on Zosyn/doxy, completed Abx History of about 18 pack years of smoking over 50 years ago, with some wheezing on exam, could be some amount of pulmonary disease secondary to remote smoking history, no formal COPD diagnosis in the past Will continue Mucinex, scheduled and prn nebulizers, steroids do not appear to be helping so have discontinued Long discussion 01/10 with patient, children, with Dr. Benz present. Given her difficulty with breathing and evidence of pulmonary edema, would typically give diuretics however it leads to worsening renal function. She would not be a candidate for dialysis due to her complex and end-stage cardiac history. After this discussion, as well as separate discussions by Cyn Cartagena and Kriss Dupont with cards and palliative care services, family and patient have elected for home with hospice and comfort-directed care, prioritizing breathing while admitted at the likely expense of her kidneys. Plan for discharge home on hospice after the weekend if possible, though given patient's ongoing respiratory decline, I anticipate she may pass in the next 48 hours. Continue PRN Lasix IV and BIPAP for comfort of breathing difficulty 2/2 fluid overload. Prn medications for comfort of pain, anxiety, agitation ordered. (2) LEV (acute kidney injury): Plan: 2nd to recent diuresis for decompensated CHF + junctional bradycardia with decreased renal perfusion. BMP reviewed, Peak Cr 3.1 this admission. HOLDING Entresto, Aldactone, potassium supplements, and any other nephrotoxic agents. Plan for permissive renal dysfunction and electrolyte derangement in favor of diuresis prn for pulmonary edema. (3) Junctional bradycardia: Plan: Developed the AM of 01/04/23. Fortunately she was relatively asymptomatic from the junctional bradycardia over the weekend. This was in the setting of Coreg + amiodarone use. Both meds have been stopped at this time. Appreciate Cardiology consultation earlier this admission. (4) Hyperkalemia: Plan: 2nd to LEV in the setting of chronic Entresto use (on hold since 01/03), Aldactone (on hold since 01/04), potassium supplements (on hold since 01/04). S/p numerous therapies to correct such (bicarb, calcium, patiromer, etc). (5) Acute on chronic heart failure with preserved ejection fraction (HFpEF): Plan: Daily IV Lasix stopped 01/03/23. Aldactone stopped 01/04/23. The drop in Lasix dosing from daily to QOD in the outpatient setting may have contributed to this decompensation (dose reduction was a few weeks ago due to patient being azotemic). Possibly dietary indiscretion as well, though patient's fluid balance is tenuous regardless of dietary choices. Coreg, amiodarone, Entresto, Aldactone, isosorbide held. (6) CAD (coronary artery disease): Plan: Last cardiac cath was by Dr Rivera 11/2021: Multivessel coronary artery disease -50% ostial left main (IVUScalcified, 50 to 60%, CSA 5.4 mm) -Sequential RCA lesions (60-70% proximal ISR, 60% mid, 50% latemid) -30 to 40% ostial circumflex Per documentation was referred to [facility] for consideration of revascularization but never had such. Coreg stopped due to junctional bradycardia, other medications stopped due to focus on comfort care and transition to home with hospice. (7) PAD (peripheral artery disease): Plan: S/p fem-fem bypass [address] Cash. (8) Paroxysmal atrial fibrillation: Plan: No PAF seen while here. She is not on chronic anticoagulation due to prior severe GI bleeding. Again Coreg + amiodarone stopped due to junctional bradycardia. (9) Type 2 diabetes mellitus with diabetic neuropathy, unspecified: Plan: A1c 6.4%. Basal/bolus insulin adjusted for IV steroid use, patient now is comfort care. (10) Chronic kidney disease, stage IV (severe): Plan: With superimposed LEV as noted above Baseline Cr about 1.5 to 1.9, defer further checks in favor of symptom-directed care for breathing (11) Iron deficiency anemia: Plan: S/p Venofer IV on 01/03 and 01/04. Had GI bleeding earlier this year due to ischemic colitis. Most recent Hgb 7.8, deferring further checks for comfort care. (12) S/P TAVR (transcatheter aortic valve replacement): Plan: 01/2022 - [facility]. Follows with Dr Prem Mcpherson - [facility]. Last Echo 2022 with preserved AV function. (13) Ischemic colitis: Plan: No GI symptoms at this time. Replaced low Fe. Is on schedule for colonoscopy later this month due to abnormal cecum as seen on CT a/p in 11/2022, to be canceled. She is poor candidate for procedures in light of her numerous comorbidities. (14) Hyponatremia: Plan: Significant worsening today to Na 122 (corrected to 126 for hyperglycemia). Elevated serum Osm, suggests hypertonic hyponatremia secondary to hyperglycemia. Will not be rechecking as patient is moving toward comfort care. (15) HTN (hypertension): Plan: History of, medications stopped for comfort care. (16) Constipation: Plan: Miralax, docusate, Senna as needed for BM for patient comfort of bloating/constipation. Plan Pain medication adjusted to morphine instead of Dilaudid due to nausea. Will need to monitor for oversedation given renal function. Admission and Anticipated Discharge Date Admission Date: January 01, 2023 Subjective Overnight with some worsening orthopnea, relieved temporarily with medications such as Dilaudid and Ativan. Also with some nausea, given Zofran and Compazine with relief. Physical Exam Constitutional: no acute distress Respiratory: uses accessory muscles Cardiovascular: Rate/Rhythm: regular rate and regular rhythm Neurologic: Speech / Cognition: normal cognition Psychiatric: Orientation: alert and oriented x 3 Results & Data Results & Data Vital Signs (Past 12 Hours) Vital Signs Pulse Resp Pulse Ox O2 Del Method O2 Flow Rate 01/11/23 06:55 77 26 H 84 L Nasal Cannula 14 01/11/23 01:36 Oxymask 15 01/10/23 21:20 High Flow Nasal Cannula 15 PG Care Time/CCT Total # of Minutes Spent Total Time Spent with Patient: Total time spent is greater than 50% in coordination of care (as documented) at patient's floor/unit and/or counseling patient: Coding Level of Care Code 42082 SUB INP/OBS CARE 2/35MIN Diagnoses Acute respiratory failure with hypoxia J96.01 LEV (acute kidney injury) N17.9 Junctional bradycardia R00.1 Hyperkalemia E87.5 Acute on chronic heart failure with preserved ejection fraction (HFpEF) I50.33 CAD (coronary artery disease) I25.10 PAD (peripheral artery disease) I73.9 Paroxysmal atrial fibrillation I48.0 Type 2 diabetes mellitus with diabetic neuropathy, unspecified E11.40 Chronic kidney disease, stage IV (severe) N18.4 Iron deficiency anemia D50.9 S/P TAVR (transcatheter aortic valve replacement) Z95.2 Ischemic colitis K55.9 Hyponatremia E87.1 HTN (hypertension) I10 Constipation K59.00
[2023-01-11] MEDS ORDERED: PROCHLORPERAZINE 5 MG in SYRINGE 4 ML IV ONE (08:30)
[2023-01-11] MEDS ORDERED: POLYETHYLENE (MIRALAX) 17 GM PACK PO PRN (10:21)
[2023-01-11] MEDS ORDERED: PROCHLORPERAZINE 5 MG in SYRINGE 4 ML IV PRN (10:21)
[2023-01-11] MEDS: POLYETHYLENE (MIRALAX) 17 GM PACK PO SCH (10:24)
[2023-01-11] MEDS: PANTOprazole 40 MG TAB PO SCH (10:24)
[2023-01-11] MEDS: AMOXICILLIN/CLAVULANATE 500 MG TAB PO SCH (10:24)
[2023-01-11] MEDS: guaiFENesin 600 MG TABCR PO SCH (10:24)
[2023-01-11] MEDS: PANTOprazole 40 MG in SYRINGE 0 ML IV SCH ×2 (10:58→21:40)
[2023-01-11] MEDS ORDERED: haloperidoL 1 MG TAB PO PRN (14:48)
[2023-01-11] MEDS ORDERED: LORazepam 2 MG/1 ML VIAL IV PRN (14:52)
[2023-01-11] MEDS ORDERED: LORazepam 1 MG TAB PO PRN ×2 (14:52→18:41)
[2023-01-11] MEDS ORDERED: fentaNYL citrate PF 100 MCG/2 ML VIAL IV PRN ×2 (14:53)
[2023-01-11] MEDS ORDERED: MoRPHine SULFATE 2 MG/ML CARP IV PRN (15:24)
[2023-01-11] MEDS ORDERED: AMPICILLIN/SULBACTAM SOD 1,500 MG in 0.9 % SODIUM CHLORIDE 100 ML IV ONE (15:45)
[2023-01-11] MEDS: DOXYCYCLINE HYCLATE 100 MG in DEXTROSE 5% 100 ML IV SCH (18:14)
[2023-01-11] MEDS: MoRPHine SULFATE 4 MG/ML 1 ML CARP\\VIAL IV PRN ×2 (18:17→22:21)
[2023-01-11] MEDS: LORazepam 2 MG/1 ML VIAL IV PRN ×3 (19:34→23:51)
[2023-01-12] MEDS: LORazepam 2 MG/1 ML VIAL IV PRN ×5 (02:03→15:29)
[2023-01-12] MEDS: MoRPHine SULFATE 4 MG/ML 1 ML CARP\\VIAL IV PRN ×3 (03:12→13:51)
[2023-01-12] MEDS: DOXYCYCLINE HYCLATE 100 MG in DEXTROSE 5% 100 ML IV SCH (05:28)
[2023-01-12] MEDS: LEVALBUTEROL HCL 0.63 MG/3 ML NEB NEB SCH (07:23)
--- NOTE | 2023-01-12 07:48 | Hospitalist Progress Note ---
Date of Service January 12, 2023 Assessment & Plan (1) Acute respiratory failure with hypoxia: Plan: 01/08 with worsening hypoxia up to 10 L Oxymask at times after activity, detectable procal but without leukocytosis 01/12 now requiring up to 30L, will scale back in favor of comfort care medications Was on Zosyn/doxy, now completes Unasyn/doxy for suspected PNA component on 01/14 History of about 18 pack years of smoking over 50 years ago, could be some amount of pulmonary disease secondary to remote smoking history, no formal COPD diagnosis in the past, continue prn nebs for comfort Patient made comfort care 01/10, with further decline since that time in her respiratory status and restlessness, now comfortable with prn Ativan/morphine. Anticipate Adri will pass in the hospital, anticipate further decrease of oxygen tomorrow after all family members are able to see her, prioritizing comfort with medications rather than increased oxygen. This admission, appreciate consults and family meeting with Nephrology, Cardiology, and Palliative Care services. Continue oxygen for comfort of breathing difficulty 2/2 fluid overload vs. PNA. Prn medications for comfort of pain, anxiety, agitation ordered. (2) LEV (acute kidney injury): Plan: 2nd to recent diuresis for decompensated CHF + junctional bradycardia with decreased renal perfusion. BMP reviewed, Peak Cr 3.1 this admission. HOLDING Entresto, Aldactone, potassium supplements, and any other nephrotoxic agents. Plan for permissive renal dysfunction and electrolyte derangement in favor of diuresis prn for pulmonary edema and comfort. (3) Junctional bradycardia: Plan: Developed the AM of 01/04/23. Fortunately she was relatively asymptomatic from the junctional bradycardia over the weekend. This was in the setting of Coreg + amiodarone use. Both meds have been stopped at this time. Appreciate Cardiology consultation earlier this admission. (4) Hyperkalemia: Plan: 2nd to LEV in the setting of chronic Entresto use (on hold since 01/03), Aldactone (on hold since 01/04), potassium supplements (on hold since 01/04). S/p numerous therapies to correct such (bicarb, calcium, patiromer, etc). (5) Acute on chronic heart failure with preserved ejection fraction (HFpEF): Plan: Daily IV Lasix stopped 01/03/23. Aldactone stopped 01/04/23. The drop in Lasix dosing from daily to QOD in the outpatient setting may have contributed to this decompensation (dose reduction was a few weeks ago due to patient being azotemic). Possibly dietary indiscretion as well, though patient's fluid balance is tenuous regardless of dietary choices. Coreg, amiodarone, Entresto, Aldactone, isosorbide held. (6) CAD (coronary artery disease): Plan: Last cardiac cath was by Dr Rivera 11/2021: Multivessel coronary artery disease -50% ostial left main (IVUScalcified, 50 to 60%, CSA 5.4 mm) -Sequential RCA lesions (60-70% proximal ISR, 60% mid, 50% latemid) -30 to 40% ostial circumflex Per documentation was referred to [facility] for consideration of revascularization but never had such. Coreg stopped due to junctional bradycardia, other medications stopped due to focus on comfort care and transition to home with hospice. (7) PAD (peripheral artery disease): Plan: S/p fem-fem bypass [address] Cash. (8) Paroxysmal atrial fibrillation: Plan: No PAF seen while here. She is not on chronic anticoagulation due to prior severe GI bleeding. Again Coreg + amiodarone stopped due to junctional bradycardia. (9) Type 2 diabetes mellitus with diabetic neuropathy, unspecified: Plan: A1c 6.4%. Basal/bolus insulin adjusted for IV steroid use, patient now is comfort care. (10) Chronic kidney disease, stage IV (severe): Plan: With superimposed LEV as noted above Baseline Cr about 1.5 to 1.9, defer further checks in favor of symptom-directed care for breathing (11) Iron deficiency anemia: Plan: S/p Venofer IV on 01/03 and 01/04. Had GI bleeding earlier this year due to ischemic colitis. Most recent Hgb 7.8, deferring further checks for comfort care. (12) S/P TAVR (transcatheter aortic valve replacement): Plan: 01/2022 - [facility] . Follows with Dr Prem Mcpherson - [facility] [place]. Last Echo 2022 with preserved AV function. (13) Ischemic colitis: Plan: No GI symptoms at this time. Replaced low Fe. Is on schedule for colonoscopy later this month due to abnormal cecum as seen on CT a/p in 11/2022, to be canceled. She is poor candidate for procedures in light of her numerous comorbidities. (14) Hyponatremia: Plan: Significant worsening today to Na 122 (corrected to 126 for hyperglycemia). Elevated serum Osm, suggests hypertonic hyponatremia secondary to hyperglycemia. Will not be rechecking as patient is moving toward comfort care. (15) HTN (hypertension): Plan: History of, medications stopped for comfort care. (16) Constipation: Plan: Miralax, docusate, Senna as needed for BM for patient comfort of bloating/constipation. Plan Pain medication adjusted to morphine instead of Dilaudid due to nausea yesterday. Somewhat more sedated today but much more comfortable and family feels this is acceptable. Continued comfort care at this time. Admission and Anticipated Discharge Date Admission Date: January 01, 2023 Subjective Patient without any acute events overnight, and was much more comfortable overnight than the night previous. Today is sleeping and I did not wake her, per patient's family she is much more comfortable, less belly breathing, less alert due to medications however they are supportive of that given that she is now comfortable. Physical Exam Constitutional: no acute distress More comfortable appearing, sleeping Respiratory: Not tachypneic, on 30 L Cardiovascular: Rate/Rhythm: regular rate and regular rhythm Gastrointestinal (Abdomen): Abdomen not distended Psychiatric: Patient sleeping, not woken for exam Results & Data Results & Data Vital Signs (Past 12 Hours) Vital Signs Pulse Resp Pulse Ox O2 Del Method O2 Flow Rate FiO2 01/12/23 07:24 16 High Flow Nasal Cannula 30 80 01/12/23 04:17 60 24 89 L High Flow Nasal Cannula 30 80 01/11/23 20:00 High Flow Nasal Cannula 30 01/12/23 00:17 60 18 88 L High Flow Nasal Cannula 30 70 01/11/23 19:54 64 18 91 High Flow Nasal Cannula 30 70 PG Care Time/CCT Total # of Minutes Spent Total Time Spent with Patient: Total time spent is greater than 50% in coordination of care (as documented) at patient's floor/unit and/or counseling patient: Coding Level of Care Code 53132 SUB INP/OBS CARE 1/25MIN Diagnoses Acute respiratory failure with hypoxia J96.01 LEV (acute kidney injury) N17.9 Junctional bradycardia R00.1 Hyperkalemia E87.5 Acute on chronic heart failure with preserved ejection fraction (HFpEF) I50.33 CAD (coronary artery disease) I25.10 PAD (peripheral artery disease) I73.9 Paroxysmal atrial fibrillation I48.0 Type 2 diabetes mellitus with diabetic neuropathy, unspecified E11.40 Chronic kidney disease, stage IV (severe) N18.4 Iron deficiency anemia D50.9 S/P TAVR (transcatheter aortic valve replacement) Z95.2 Ischemic colitis K55.9 Hyponatremia E87.1 HTN (hypertension) I10 Constipation K59.00
[2023-01-12] MEDS ORDERED: AMPICILLIN/SULBACTAM SOD 3,000 MG in 0.9 % SODIUM CHLORIDE 100 ML IV SCH (08:00)
[2023-01-12] MEDS: PANTOprazole 40 MG in SYRINGE 0 ML IV SCH (10:14)
[2023-01-12] MEDS ORDERED: MoRPHine SULFATE 4 MG/ML 1 ML CARP\\VIAL IV PRN ×2 (16:10→16:18)
[2023-01-12] MEDS ORDERED: MoRPHine SULFATE 2 MG/ML CARP IV PRN (16:10)
--- NOTE | 2023-01-12 16:55 | Discharge Summary ---
Discharge Summary Date of Service January 12, 2023 Admission HPI Per Admitting Provider Adri is an 82-year-old female with a past medical history of heart failure with preserved ejection fraction, DM 2, CAD, PAD, baseline creatinine 1.2, and history of GI bleeding on Plavix who presents the emergency department with 2 days of increasing shortness of breath, dyspnea on exertion, lower extremity swelling and hypoxia on home peripheral pulse ox to 88%. Presents with several days of worsening shortness of breath most notably on exertion. Did have some pizza with pepperoni earlier in the week, otherwise denies salted meat/soup/chips/high salt intake. Reports she is taking all of her medications as directed, last took these this morning +Sob, dry nonproductive cough + LLE swelling, improves in morning but does not resolve completely after layin gflat. Notes her left leg is usually slightly more swollen than the right, but seems more swollen than normal. She has no pain in her leg. No inspiratory pain +dyspnea on exertion, heart 'poudning' and short of breath with attempted ambulation. Lays flat on her side at night, not sure if it has affected her breathing Denies salt, soup intake. Has had 2x pieces of pepperoni pizza at night prior to swelling onset NO leg pain NO syncope/presyncope No abdominal pain No bloody/black bowel move Medical History: Reviewed Medications: Reviewed Surgical History: Reviewed Family history: Reviewed Allergies: Reviewed Social History: No tobacco, no ETOH Code Status: Full COde Admission Exam Per Admitting Provider General: A&Ox3. NAD. Cooperative. HEENT: Atraumatic, normocephalic. Vision/hearing intact. Pulm: Bibasilar crackles. Symmetrical chest rise. No increased work of breathing. No respiratory distress. Cardiac: RRR, -mrg. Radial pulses intact and symmetrical. Abdominal: Nontender, nondistended, soft. BS present. Ext: LLE>RLE 2+ edema. Sensation/strength grossly intact. Principal Dx & Hospital Course #1 = Principal Diagnosis (1) Acute respiratory failure with hypoxia: 01/08 with worsening hypoxia up to 10 L Oxymask at times after activity, detectable procal but without leukocytosis, multifactorial with suspected pneumonia and CHF exacerbation Patient made comfort care 01/10, with further decline since that time in her respiratory status and restlessness, was comfortable with prn Ativan/morphine. This admission, appreciate consults and family meeting with Nephrology, Cardiology, and Palliative Care services. Adri 4:40pm on 01/12. Support and condolences given to family. (2) LEV (acute kidney injury): 2nd to recent diuresis for decompensated CHF + junctional bradycardia with dec reased renal perfusion. BMP reviewed, Peak Cr 3.1 this admission. HOLDING Entresto, Aldactone, potassium supplements, and any other nephrotoxic agents. We allowed for permissive renal dysfunction to give Lasix prn for comfort with relief from Adri. (3) Junctional bradycardia: Developed the AM of 01/04/23 in the setting of Coreg + amiodarone use. Appreciate Cardiology consultation earlier this admission. (4) Hyperkalemia: 2nd to LEV in the setting of chronic Entresto use, Aldactone, potassium supplements. S/p numerous therapies to correct such (bicarb, calcium, patiromer, etc). (5) Acute on chronic heart failure with preserved ejection fraction (HFpEF): The drop in Lasix dosing from daily to QOD in the outpatient setting may have contributed to this decompensation (dose reduction was a few weeks ago due to patient being azotemic). Possibly dietary indiscretion as well, though patient's fluid balance is tenuous regardless of dietary choices. (6) CAD (coronary artery disease): Last cardiac cath was by Dr Rivera 11/2021: Multivessel coronary artery disease -50% ostial left main (IVUScalcified, 50 to 60%, CSA 5.4 mm) -Sequential RCA lesions (60-70% proximal ISR, 60% mid, 50% latemid) -30 to 40% ostial circumflex (7) Paroxysmal atrial fibrillation: No PAF seen while here. She was not on chronic anticoagulation due to prior severe GI bleeding. (8) Type 2 diabetes mellitus with diabetic neuropathy, unspecified: BSG not checked while comfort care. (9) Chronic kidney disease, stage IV (severe): With superimposed LEV as noted above Baseline Cr about 1.5 to 1.9, up to 2.6 recently, deferred further checks in favor of symptom-directed care for breathing (10) Iron deficiency anemia: S/p Venofer IV on 01/03 and 01/04. Had GI bleeding earlier this year due to ischemic colitis. Most recent Hgb 7.8, deferred further checks for comfort care. (11) S/P TAVR (transcatheter aortic valve replacement): 01/2022 - [facility]. Followed with Dr Prem Mcpherson - [facility] [place]. (12) Ischemic colitis: Recently history of, earlier in admission had iron replaced. She was poor candidate for procedures in light of her numerous comorbidities. (13) Hyponatremia: Significant worsening earlier in admission to Na 122. Did not recheck as patient made comfort care at that time. (14) HTN (hypertension): History of, medications stopped for comfort care. Discharge Exam Constitutional comfortable appearing Updated Medication List Medication Instructions Recorded Confirmed Type fish, borage, flaxseed oils-omega 1 cap PO QDD 12/01/20 01/01/23 History 3,6,9 comb no.1 1,200 mg capsule (Simpson 3-6-9) atorvastatin 40 mg tablet 40 mg PO QAM 02/26/21 01/01/23 History multivitamin 1 tab PO QAM 02/26/21 01/01/23 History amiodarone 200 mg tablet 200 mg PO QAM 07/01/21 01/01/23 History pantoprazole 40 mg tablet,delayed 40 mg PO BID 07/01/21 01/01/23 History release glimepiride 4 mg tablet 4 mg PO BID 12/21/21 01/01/23 History carvedilol 6.25 mg tablet 6.25 mg PO BID #60 tabs 12/27/21 01/01/23 Rx magnesium oxide 400 mg (241.3 mg 400 mg PO BID #60 tabs 12/27/21 01/01/23 Rx magnesium) tablet amlodipine 10 mg tablet 10 mg PO BID 06/20/22 01/01/23 History sacubitril 24 mg-valsartan 26 mg 1 tab PO BID 09/20/22 01/01/23 History tablet (Entresto) spironolactone 25 mg tablet 25 mg PO QAM 09/20/22 01/01/23 History hydralazine 100 mg tablet 50 mg PO TID #30 tabs 10/06/22 01/01/23 Rx clopidogrel 75 mg tablet 75 mg PO DAILY 11/01/22 01/01/23 History furosemide 40 mg tablet 40 mg PO DIRECTED 01/01/23 01/01/23 History Hospital Stay Data Consultations 01/01/23 12:21 ED Decision to Admit Stat 01/05/23 11:40 Consult Cardiology Routine 01/06/23 16:58 Consult Palliative Care Routine 01/10/23 08:27 Consult Nephrology Routine Diagnostic Imagining Performed 01/01/23 12:36 US venous doppler LE LT Urgent 01/08/23 10:56 CT chest diagnostic wo con Stat Total Time Total Time Spent Total Time Spent (In Minutes): 35 min Coding Level of Care Code 34036 INP/OBS DISCH >30 MIN Diagnoses Acute respiratory failure with hypoxia J96.01 LEV (acute kidney injury) N17.9 Junctional bradycardia R00.1 Hyperkalemia E87.5 Acute on chronic heart failure with preserved ejection fraction (HFpEF) I50.33 CAD (coronary artery disease) I25.10 Paroxysmal atrial fibrillation I48.0 Type 2 diabetes mellitus with diabetic neuropathy, unspecified E11.40 Chronic kidney disease, stage IV (severe) N18.4 Iron deficiency anemia D50.9 S/P TAVR (transcatheter aortic valve replacement) Z95.2 Ischemic colitis K55.9 Hyponatremia E87.1 HTN (hypertension) I10
--- NOTE | 2023-01-12 17:02 | Death Pronouncement Note ---
Date of Service January 12, 2023 Pronouncement Note Admission Date Admission Date: January 01, 2023 Date and Time of Date of : 01/12/23 Time of : 16:40 PCOD Preliminary cause of : Respiratory arrest Contributing Factors (1) Acute on chronic heart failure with preserved ejection fraction (HFpEF): (2) Acute respiratory failure with hypoxia: (3) LEV (acute kidney injury): (4) Junctional bradycardia: (5) Hyponatremia: (6) Hyperkalemia: (7) CAD (coronary artery disease): (8) Paroxysmal atrial fibrillation: (9) Type 2 diabetes mellitus with diabetic neuropathy, unspecified: (10) Chronic kidney disease, stage IV (severe): (11) Iron deficiency anemia: (12) Ischemic colitis: (13) HTN (hypertension): Additional Data Confirmation of : no pulse, no respirations, no heart sounds and pupils fixed and dilated Family: at bedside Attending/PCP notified?: Yes Attending physician: Latisha Ramirez, DO Was code activated?: No Autopsy requested?: No
== END 2023-01-12 18:40 | disposition expired | DRG 291 ==
LOC: ED 09:40 → SUATTDRO 12:30 → EDINP 12:30 → 2S 15:50 → 3N 01-10 21:11